=== PATIENT | male | born 1970 | race Caucasian/White ===

== ENCOUNTER → 2016-07-13 | Outpatient (CLI) | payer OTHER ==
[2016-07-13 11:12] LABS: Prothrombin Time 10.3 sec (9.0-12.0)
== END | disposition home or self-care (01) ==
LOC: LABWHC1 10:39
PROVIDERS: ATTEND Psychiatry & Neurology Neurology
DX: D65 Disseminated intravascular coagulation [defibrination syndrome] (principal)
CPT/HCPCS: 36415; 85610

== ENCOUNTER → 2016-08-06 | Outpatient (CLI) | payer OTHER ==
[2016-08-06 10:53] LABS: INR 1.2 (<1.1); Prothrombin Time 11.8 sec (9.0-12.0)
== END | disposition home or self-care (01) ==
LOC: LABWHC1 10:32
PROVIDERS: ATTEND Psychiatry & Neurology Neurology
DX: D65 Disseminated intravascular coagulation [defibrination syndrome] (principal); Z51.81 Encounter for therapeutic drug level monitoring; Z79.01 Long term (current) use of anticoagulants
CPT/HCPCS: 36415; 85610

== ENCOUNTER → 2016-09-08 | Outpatient (CLI) | payer OTHER ==
[2016-09-08 09:59] LABS: Prothrombin Time 10.4 sec (9.0-12.0)
== END | disposition home or self-care (01) ==
LOC: LABWHC1 09:21
PROVIDERS: ATTEND Psychiatry & Neurology Neurology
DX: D65 Disseminated intravascular coagulation [defibrination syndrome] (principal)
CPT/HCPCS: 36415; 85610

== ENCOUNTER → 2016-10-13 | Outpatient (CLI) | payer OTHER ==
[2016-10-13 16:23] LABS: INR 1.3 (<1.1); Prothrombin Time 13.1 sec (9.0-12.0)
== END | disposition home or self-care (01) ==
LOC: LABWHC1 15:26
PROVIDERS: ATTEND Nurse Practitioner Acute Care
DX: Z51.81 Encounter for therapeutic drug level monitoring (principal); Z79.01 Long term (current) use of anticoagulants
CPT/HCPCS: 36415; 85610

== ENCOUNTER → 2017-01-28 | Outpatient (CLI) | payer OTHER ==
--- NOTE | 2017-01-28 19:14 | PN ---
PROGRESS NOTE DATE OF SERVICE: 01/28/2017 46-year-old gentleman has been followed in [facility] for treatment of obstructive sleep apnea-hypopnea syndrome. Patient is trying to use his BiPAP equipment every night, but sometimes has problem to use equipment because he has significant back pain and he has some problem related to that. His BiPAP pressure 24/20, but he is able to tolerate this pressure well. [place] Sleepiness Scale today is increased to 14 because he did not use machine for several days. MEDICATIONS: 1. Lyrica. 2. Insulin. 3. [place]. 4. MS Contin. 5. Glucophage. 6. Simvastatin. 7. Apidra. 8. The patient is in the process of preparing to install a pain pump. PHYSICAL EXAM: Patient in no distress, BP 109/67, HR 94, RR 16, height 5 feet 6 inches, weight 242, BMI 39, temp 98.3, oxygen saturation on room air 96%. Oropharynx: Low position of soft palate. Abdomen obese. Neck Supple, no JVD. Thyroid is not palpable. LUNGS Clear to percussion and to auscultation. Good air exchange. No wheezing or rhonchi. HEART S1, S2 regular. No murmurs, gallops, or rubs. ABDOMEN Soft and nontender. Bowel sounds are present. No organomegaly appreciated. EXTREMITIES No clubbing or cyanosis. FILLING HAND Awake, alert, and oriented X3. Cranial nerves 2 to 7 intact. There is no fasciculation or atrophy. noted. No focal deficits observed. IMPRESSION: 1. Obstructive sleep apnea-hypopnea syndrome. The patient benefitting from BiPAP treatment. 2. Obesity patient lost 9 pounds since previous visit. 3. Diabetes mellitus. 4. Hyperlipidemia. 5. Back problems. 6. History of deep vein thrombosis. 7. Acid reflux. 8. Hyperlipidemia. PLAN: 1. Continue treatment with BiPAP every night for the whole night. 2. Aggressive losing weight program. 3. Sleep hygiene with regular time in bed for at least 8 hours. 4. Return to Sleep Center if he will develop any problem related to the pressure after losing weight. 5. Prescription for all necessary BiPAP supplies. Thank you very much for allowing me to participate in management of your patient. Sincerely, Jefferson Foster MD, PhD, FAASM Diplomat of [employer] Freelance Translator of [facility] [place] MMLEOLA / LAURENN: [phone] / MAU
== END ==
LOC: SLEEP 15:55
PROVIDERS: ATTEND Internal Medicine
DX: G47.33 Obstructive sleep apnea (adult) (pediatric) (principal); E66.9 Obesity, unspecified; E11.9 Type 2 diabetes mellitus without complications; E78.5 Hyperlipidemia, unspecified; K21.9 Gastro-esophageal reflux disease without esophagitis; Z86.718 Personal history of other venous thrombosis and embolism; Z79.899 Other long term (current) drug therapy; Z79.4 Long term (current) use of insulin

== ENCOUNTER 2017-01-31 20:54 | Emergency (ER) | payer OTHER ==
[2017-01-31 21:24] VITALS: BP 110/69; PULSE 94; RESP 18; TEMP 99.2
--- NOTE | 2017-01-31 21:58 | ED ---
Animal Bite HPI - General Chief Complaint: Animal Bite Stated Complaint: dog bite on arm Time Seen by Provider: 01/31/17 21:47 Source: patient, RN notes reviewed Mode of arrival: ambulatory Limitations: no limitations - History of Present Illness Initial Comments: This is a 46-year-old male who presents to the emergency department with request for wound reevaluation. This morning while in [place] patient was bit by a dog. He presented to the local urgent care where they prescribed Augmentin and inserted 3 loose sutures. The dog is reported to have been up-to- date with vaccinations. Patient was made up today with tetanus vaccination. He presents today with concern that wound is still bleeding. Patient reports that he is on Coumadin. Denies fever, chills, chest pain, shortness of breath, abdominal pain, nausea or vomiting, constipation or diarrhea, dysuria or hematuria, numbness or tingling, headache or vision changes. - Related Data Home Medications Medication Instructions Recorded Confirmed Latanoprost Ophth [Xalatan 0.005%] 1 drops BOTH EYES HS 01/23/14 01/31/17 Simvastatin [Zocor] 20 mg PO HS 01/23/14 01/31/17 Warfarin [Coumadin] 5 mg PO DAILY 01/23/14 01/31/17 Insulin Glulisine [Apidra] 35 unit SQ AC-SUPPER 06/07/15 01/31/17 Morphine Sulfate [Ms Contin] 15 mg PO HS 06/18/15 01/31/17 Naproxen 500 mg PO Q12HR 06/18/15 01/31/17 Clotrimazole [Lotrimin AF] 1 applic TOPICAL DAILY 01/28/16 01/31/17 Furosemide [Lasix] 20 mg PO DAILY PRN 01/28/16 01/31/17 Hydrocodone/Acetaminophen [Keo 1 tab PO W/LUNCH 01/28/16 01/31/17 7.5-325] Insulin Degludec [Tresiba 120 unit SQ QAM 01/28/16 01/31/17 Flextouch U-200] Insulin Glulisine [Apidra] 45 unit SQ AC-BRKFST 01/28/16 01/31/17 Insulin Glulisine [Apidra] 45 units SQ AC-LUNCH 01/28/16 01/31/17 Insulin Glulisine [Apidra] See Protocol SQ AC-TID 01/28/16 01/31/17 Lisinopril-Hctz 10-12.5 mg 1 tab PO DAILY 01/28/16 01/31/17 [Zestoretic 10-12.5] Loratadine [Claritin] 10 mg PO DAILY 01/28/16 01/31/17 Pantoprazole Sodium [Protonix] 40 mg PO DAILY 01/28/16 01/31/17 Ranitidine HCl 300 mg PO HS 01/28/16 01/31/17 Warfarin [Coumadin] 1 mg PO DAILY 01/28/16 01/31/17 metFORMIN HCL [Glucophage] 1,000 mg PO BID 01/28/16 01/31/17 tiZANidine HCL [Zanaflex] 4 mg PO BID PRN 01/28/16 01/31/17 Amoxicillin/Potassium Clav 1 tab PO Q12HR 01/31/17 01/31/17 [Augmentin 875-125 Tablet] Previous Rx's Medication Instructions Recorded Acetaminophen Tab [Tylenol] 650 mg PO Q6HR PRN #0 tab 02/02/16 Enoxaparin [Lovenox] 100 mg SQ Q12H syringe 02/02/16 Enoxaparin [Lovenox] 100 mg SQ Q12H #6 syr 02/02/16 INSULIN LISPRO (humaLOG) [humaLOG 0 unit SQ ACHS vial 02/02/16 (formulary)] Insulin Glargine [Lantus] 20 unit SQ BID vial 02/02/16 Allergies Allergy/AdvReac Type Severity Reaction Status Date / Time No Known Allergies Allergy Verified 01/28/16 13:19 Review of Systems ROS Statement: Those systems with pertinent positive or pertinent negative responses have been documented in the HPI. ROS Other: All systems not noted in ROS Statement are negative. Past Medical History Past Medical History: Blood Disorder, Diabetes Mellitus, Deep Vein Thrombosis ( DVT), GERD/Reflux, Hyperlipidemia, Hypertension, Musculoskeletal Disorder, Osteoarthritis (OA), Sleep Apnea/CPAP/BIPAP Additional Past Medical History / Comment(s): FACTOR 5 LEIDEN, HX OF (2) DVT'S LEFT LEG & (1) SUPERFICIAL CLOT LEFT LEG, USES BIPAP MACHINE , ENVIRONMENTAL ALLERGIES, FATTY LIVER, DDD & BULDGING DISC WITH BACK PAIN WEARS BRACE,USES CANE , PARTIALLY BLIND LEFT EYE., STATES SCARRING WITH NARROWING OF ESOPHAGUS & CURRENTLY HAVING DIFFICULTY SWALLOWING. KIDNEY INFECTION IN PAST, CELLULITIS LL LEG X2, MIGRAINES,PVD History of Any Multi-Drug Resistant Organisms: None Reported Past Surgical History: Tonsillectomy Additional Past Surgical History / Comment(s): eye surgery as infnat, EGD WITH DILATION X2 , uppp sx for slep apnea Past Anesthesia/Blood Transfusion Reactions: Family Hisory of Malignant Hyperthermia Additional Past Anesthesia/Blood Transfusion Reaction / Comment(s): STATES "MOTHER CRASHES- UNABLE TO METABOLIZE ANESTHESIA", HE SAID SHE STATES YES TO MALIGNANT HYPERTHERMIA. Past Psychological History: Anxiety, Depression Smoking Status: Never smoker Past Alcohol Use History: None Reported Past Drug Use History: None Reported - Past Family History Father Family Medical History: Cancer Additional Family Medical History / Comment(s): BLADDER CANCER Mother Family Medical History: CVA/TIA, Diabetes Mellitus, Myocardial Infarction ([place]) General Exam - General Exam Comments Initial Comments: General: Awake and alert, well-developed; in no apparent distress. HEENT: Head atraumatic, normocephalic. Pupils are equal, round and reactive to light. Extraocular movements intact. Neck: Supple. Normal ROM. Cardiovascular: Regular rate and rhythm. No murmurs, rubs or gallops. Chest symmetrical. Respiratory: Lungs clear to auscultation bilaterally. No wheezes, rales or rhonchi. Normal respiratory effort with no use of accessory muscles. Skin: [place], warm and dry. Left dorsal forearm has linear laceration with 3 loose sutures that are intact. There is minimal bleeding coming from this site. Abrasion involving only top epithelial layer medial to laceration has slow stream of blood. There is mild amount of swelling and erythema surrounding these sites. Neurological: Alert and oriented x3. CN II-XII grossly intact. Speech is fluent and answers are appropriate. No focal neuro deficits. Psychiatric: Normal mood and affect. No overt signs of depression or anxiety noted. Limitations: no limitations Course Vital Signs 01/31/17 21:19 Temperature 99.2 F Pulse Rate 94 Respiratory 18 Rate Blood Pressure 110/69 O2 Sat by Pulse 95 Oximetry Medical Decision Making - Medical Decision Making This is a 46-year-old male who presents for reevaluation of dog bite wound. He was worried about bleeding because he takes Coumadin. At this time, bleeding is controlled and he is in no acute distress. A pressure dressing was placed. He is to continue to take his Augmentin as prescribed. He'll be discharged home and is comfortable with this plan. All questions were answered. Disposition Clinical Impression: Encounter for evaluation of wound Disposition: HOME SELF-CARE Condition: Good Instructions: Animal Bite (ED) Additional Instructions: Please take Augmentin as prescribed for full 14 days. Please follow up with primary care provider within 1-2 days. Return to emergency department if symptoms should worsen or any concerns arise. Please look for signs of infection including increasing redness, swelling or purulent drainage. Referrals: Stacy Gomez MD [Primary Care Provider] - 1-2 days Time of Disposition: 22:02
== END 2017-01-31 22:10 | disposition home or self-care (01) ==
LOC: EC 20:54
DX: S51.812A Laceration without foreign body of left forearm, initial encounter (principal); E11.8 Type 2 diabetes mellitus with unspecified complications; I10 Essential (primary) hypertension; K21.9 Gastro-esophageal reflux disease without esophagitis; E78.5 Hyperlipidemia, unspecified; M19.90 Unspecified osteoarthritis, unspecified site; Z79.891 Long term (current) use of opiate analgesic; Z79.4 Long term (current) use of insulin; Z79.01 Long term (current) use of anticoagulants; Z79.899 Other long term (current) drug therapy; Z86.718 Personal history of other venous thrombosis and embolism; W54.0XXA Bitten by dog, initial encounter
CPT/HCPCS: 99283

== ENCOUNTER 2017-05-07 09:46 | Day surgery (SDC) | payer OTHER ==
[2017-05-05 10:10] VITALS: BMI 37.1
[~2017-05-07 09:46] MED LIST: LACTATED RINGERS 1,000 ML IV SCH
[2017-05-07] MEDS ORDERED: LIDOCAINE 1% 20 ML VIAL (10MG/ML) FOR IV START INTRADERMA ONE (11:10)
[2017-05-07 11:19] VITALS: TEMP 98
[2017-05-07] MEDS ORDERED: PROPOFOL 10 MG/ML 20 ML VIAL IV ONE (11:19)
[2017-05-07] MEDS ORDERED: PHENYLEPHRINE-0.9% NACL SYG 1 MG/10 ML SYRINGE ONE (11:19)
[2017-05-07 11:32] LABS: Glucose,Whole Blood 260 mg/dL (75-99)
[2017-05-07 12:39] VITALS: BP 103/66; PULSE 60; RESP 16
[2017-05-07 12:39] LABS: Glucose,Whole Blood 253 mg/dL (75-99)
--- NOTE | 2017-05-12 13:32 | P.OP ---
Date of Procedure: 05/07/17 Preoperative Diagnosis: Abdominal pain GERD Morbid obesity BMI 37.1 Type 2 diabetes mellitus Postoperative Diagnosis: Same Procedure(s) Performed: EGD Colonoscopy Anesthesia: MAC Surgeon: Asuncion Xie Pathology: other Condition: stable Disposition: PACU Indications for Procedure: 47 years old male with prior history of gastroesophageal reflux disease and esophgeal stricture requiring dilation presents with epigastric pain, abdominal pain. He has multiple comorbid conditions including type 2 diabetes mellitus and questionable gastroparesis Operative Findings: Small amount of retained food in the stomach. No definite hiatal hernia visualized. Description of Procedure: A timeout was performed to verify the correct patient and correct procedure. Patient was on continuous vitals and pulse ox monitoring throughout the procedure. He was placed in lateral decubitus position and an oral bite block was inserted. A well-lubricated Olympus upper endoscope was passed orally. The esophagus was intubated without difficulty. The vocal cords were visualized and protected at all times. The endoscope was passed beyond the pylorus into the first and second portion of the duodenum. No abnormality was noted in the duodenum mucosa. Two random biopsies were taken from the gastric antrum using cold biopsy forceps. The scope was then retroflexed. No hiatal hernia, no mass, active ulcer or bleeding stigmata noted within the gastric lumen. Some residual food particles noted in the gastric lumen The GE junction is measured at 36 cm from the incisors . Mild reflux esophagitis LA grade 1 . Biopsy taken from GE junction. The endoscope was gradually withdrawn. No abnormality identified in the esophagus. Patient was positioned for colonoscopy. Perianal examination did not show any external hemorrhoids. Digital rectal examination was performed. No masses or gross blood. A well-lubricated Olympus colonoscope was passed per rectally and was gradually advanced beyond the sigmoid colon, splenic flexure, transverse colon, hepatic flexure and cecum. The ileocecal valve was visualized. The colonoscope was gradually withdrawn inspecting all the mucosal surfaces. Bowel prep was good. No polyps, masses, AV malformations noted. Sigmoid diverticulosis noted without any evidence of acute diverticulitis. The scope was gradually withdrawn and retroflexed in the rectum . Grade 1 internal hemorrhoids seen. Total withdrawal time was greater than 6 minutes . Patient tolerated the procedure well and was taken to post anesthesia care unit in stable condition. Recommend repeat colonoscopy in 10 years Gastric emptying study . Final Pathologic Diagnosis A. GASTRIC ANTRUM, BIOPSY: MILD CHRONIC GASTRITIS. HELICOBACTER IMMUNOPEROXIDASE STAIN IS PERFORMED TO EVALUATE FOR HELICOBACTER ORGANISMS AND IS NEGATIVE (CONTROLS APPROPRIATE). B. ESOPHAGUS, BIOPSY: CHRONIC ESOPHAGITIS
== END 2017-05-07 13:01 | disposition home or self-care (01) ==
LOC: ORWHC2ENDO 09:46
PROVIDERS: ATTEND Surgery
DX: K21.0 Gastro-esophageal reflux disease with esophagitis (principal); K29.50 Unspecified chronic gastritis without bleeding; K57.30 Diverticulosis of large intestine without perforation or abscess without bleeding; K64.0 First degree hemorrhoids; E66.9 Obesity, unspecified; Z68.37 Body mass index [BMI] 37.0-37.9, adult; I82.502 Chronic embolism and thrombosis of unspecified deep veins of left lower extremity; E11.65 Type 2 diabetes mellitus with hyperglycemia; E11.43 Type 2 diabetes mellitus with diabetic autonomic (poly)neuropathy; K31.84 Gastroparesis; E29.1 Testicular hypofunction; E78.5 Hyperlipidemia, unspecified; I10 Essential (primary) hypertension; M46.90 Unspecified inflammatory spondylopathy, site unspecified; F32.9 Major depressive disorder, single episode, unspecified; H40.9 Unspecified glaucoma; G89.29 Other chronic pain; G47.33 Obstructive sleep apnea (adult) (pediatric); Z99.89 Dependence on other enabling machines and devices; Z79.01 Long term (current) use of anticoagulants; Z79.4 Long term (current) use of insulin; Z79.891 Long term (current) use of opiate analgesic; Z79.899 Other long term (current) drug therapy; Z79.84 Long term (current) use of oral hypoglycemic drugs
CPT/HCPCS: 88305; 88342; 45378; 43239; J2370; J2704

== ENCOUNTER → 2017-05-14 | Outpatient (CLI) | payer OTHER ==
--- NOTE | 2017-05-14 09:31 | NM ---
EXAMINATION TYPE: NM gastric emptying study DATE OF EXAM: 05/14/2017 COMPARISON: NONE HISTORY: Abdominal distention Following administration of 2.0 mCi Tc 99m Sulfur Colloid with 1 cup of oatmeal projection images of the abdomen were obtained 10 minutes post ingestion. When possible, both anterior and posterior proje ction images were obtained to allow the calculation of the geometric mean activity. Clearance: 32 % Half-life: 147 min Gastroesophagel reflux: None IMPRESSION: Gastric emptying: Findings are compatible with delayed gastric emptying Gastric emptying normal percentage values: 30 minutes: <70% of retention (> 30% emptying) suggests abnormally fast emptying. 60 minutes: <90% retention (>10% emptying) is normal; less than 30% retention (>70% emptying) suggest s abnormally rapid empying. 90 minutes: <65% retention (> 35% emptying) is normal. 120 minutes: <60% retention (> 40% emptying) is normal. 180 minutes: <30% retention (> 70% emptying) is normal. Gastric emptying T-1/2: Solid: The normal range is 60-105 minutes Liquid only: Normal range is 10-45 minutes. Liquid only-children: At 60 minutes, normal range is 44-58 % . Liquid only-infants: At 60 minutes, normal range is 32-64 %. Additional references: Gastric Emptying Scintigraphy [email or web address]://[email or web address]
== END | disposition home or self-care (01) ==
LOC: RADNMMAIN 06:53
PROVIDERS: ATTEND Surgery
DX: K31.84 Gastroparesis (principal)
CPT/HCPCS: 78264; A9541

== ENCOUNTER → 2017-08-05 | Outpatient (CLI) | payer OTHER ==
[2017-08-05 13:34] LABS: HCT 38.7 % (39.0-53.0); HGB 13.8 gm/dL (13.0-17.5); MCHC 35.7 g/dL (31.0-37.0); MCV 81.2 fL (80.0-100.0); Platelet Count 213 k/uL (150-450); RBC 4.76 m/uL (4.30-5.90); RDW 13.4 % (11.5-15.5); WBC 7.4 k/uL (3.8-10.6)
[2017-08-05 13:44] LABS: ALT 55 U/L (21-72); AST 48 U/L (17-59); Albumin 3.3 g/dL (3.5-5.0); Alkaline Phosphatase 98 U/L (38-126); Anion Gap 12 mmol/L; Blood Urea Nitrogen 18 mg/dL (9-20); Calcium 9.1 mg/dL (8.4-10.2); Carbon Dioxide 26 mmol/L (22-30); Chloride 101 mmol/L (98-107); Cholesterol 185 mg/dL (<200); Glucose 286 mg/dL (74-99); HDL Cholesterol 30 mg/dL (40-60); LDL Cholesterol,Calculated 95 mg/dL (0-99); Potassium 4.4 mmol/L (3.5-5.1); Sodium 139 mmol/L (137-145); Total Bilirubin 0.4 mg/dL (0.2-1.3); Total Protein 6.2 g/dL (6.3-8.2); Triglycerides 298 mg/dL (<150)
[2017-08-05 15:28] VITALS: BP 107/58; PULSE 87; RESP 14; TEMP 98.4; BMI 35.0
[2017-08-05 20:15] LABS: Iron Saturation 15.77 (15.00-50.00)
[2017-08-05 20:24] LABS: Vitamin D 25 Hydroxy 33.9 ng/mL (30.0-100.0)
[2017-08-05 21:21] LABS: Folate, Serum 13.8 ng/mL
[2017-08-07 13:49] LABS: Anabasine Urine <2.0 ng/mL (<2.0)
--- NOTE | 2017-08-22 23:18 | P.HPBAR ---
Bariatric H&P - History & Physicial H&P Date: 08/05/17 History & Physicial: Visit/CC: Patient initial contact: Initial weight: Initial weight in pounds: Height: 5 ft 6.25 in Initial BMI: Last weight: Current weight: 111.811 kg Current weight in pounds: Current BMI: [place] body weight (based on NIH guidelines): Excess body weight loss: The patient is a 47 year-old M who presents for Bariatric Assessment. DATE OF SERVICE: 08/05/2017 REASON FOR CONSULTATION: Initial bariatric evaluation. HISTORY OF PRESENT ILLNESS: Jose Lynne is a 47-year-old male who comes in with long-standing morbid obesity. He reports troubles with chronic pain. He is looking into the gastric bypass for insulin-dependent diabetes. He completed an upper endoscopy Dr. Xie. He was diagnosed with gastroparesis. He has a pain pump along the left lower abdomen. He has troubles with his bowel movements. He has a personal history of DVT in the left lower leg and take coumadin life long. He has not seen a script writer. He has his gallbladder. Denies any fatty food intolerance. He has tried portion control including including carbohydrate restriction without improvement of weight loss. At height of 5 feet 6.25 inches, his ideal body weight is 154 pounds. He comes in 246 pounds. His body mass index is 39.5. He is 92 pounds overweight. PAST MEDICAL HISTORY: 1. Morbid obesity. 2. Body mass index of 39.5 3. Chronic pain syndrome 4. Gastroparesis 5. Clotting disorder 6. Diabetes type 2, insulin-dependent 7. Hyperlipidemia 8. Hypertension 9. Obstructive sleep apnea 10. Osteoarthritis lower back 11. Osteoarthritis of the knees 12. Hiatal hernia 13. Peripheral vascular disease 14. Esophageal stenosis PAST SURGICAL HISTORY: 1. UVP 2. Upper endoscopy 3. Tonsillectomy 4. Pain pump insertion 5. Eye surgery as an infant HOME MEDICATIONS: 1. Zanaflex 2. Glucophage 3. Coumadin 4. Zocor 5. Protonix 6. MS Contin 7. Morphine pain pump 8. Claritin 9. Zestoretic 10. Xalantan 11. Insulin 12. Lasix 13. Lotrimin 14. Tylenol ALLERGIES: Denies. SOCIAL HISTORY: No active tobacco use. FAMILY HISTORY: No family history of ulcerative colitis disease or Crohn's disease. Family history of morbid obesity. No lupus in the family. No reports of stomach or esophageal cancer. Family history of diabetes type 2. REVIEW OF ORGAN SYSTEMS: CONSTITUTIONAL: At height of 5 feet 6.25 inches, his ideal body weight is 154 pounds. He comes in 246 pounds. His body mass index is 39.5. He is 92 pounds overweight. HEENT: Denies any active troubles with vision or hearing. No troubles with swallowing. ENDOCRINE: Has diabetes. No hypothyroidism. CARDIOVASCULAR: No reports of palpitations or heart attacks or chest pain. RESPIRATORY: Has daytime somnolence. No asthma. GI: Denies any bright red blood per rectum. No diarrhea or constipation. MUSCULOSKELETAL: Has lower back pain and joint pain. Has osteoarthritis of the knees. History of bilateral lower extremity edema. NEURO: No headaches. No seizure disorders. PSYCH: No depression or suicidal ideation. RHEUMATOLOGIC: No lupus. No rheumatoid arthritis. HEMATOLOGIC: Denies any abnormal bleeding or bruising. Has personal history of DVTs. Has clotting disorder. SKIN: No rash. No skin cancer. PHYSICAL EXAM: VITAL SIGNS: Height 5 foot 6.25 inches, weight 246 pounds. BMI 39.5 Vital Signs Temp 98.4 F 08/05/17 12:22 Pulse 87 08/05/17 12:22 Resp 14 08/05/17 12:22 BP 107/58 08/05/17 12:22 Pulse Ox GENERAL: Well-developed in no acute distress. HEENT: No scleral icterus. Extraocular movements grossly intact. Hears conversational speech. No nasal drainage. NECK: Supple without lymphadenopathy. CHEST: Nonlabored respirations with equal bilateral excursions. CARDIOVASCULAR: Regular rate and regular rhythm. Distal 2+ pulses. ABDOMEN: Obese, soft, nontender, nondistended. MUSCULOSKELETAL: No clubbing, cyanosis. Gross strength 5/5 distal lower extremities. 1+ pre-tibial pitting edema. NEURO: No focal or lateralizing signs. Cranial nerves 2 through 12 grossly within normal limits. PSYCH: Appropriate affect. Alert and oriented to person, place and time. SKIN: Good skin turgor. Well perfused. STUDIES: EGD findings without hiatal hernia. Final Pathologic Diagnosis A. GASTRIC ANTRUM, BIOPSY: MILD CHRONIC GASTRITIS. HELICOBACTER IMMUNOPEROXIDASE STAIN IS PERFORMED TO EVALUATE FOR HELICOBACTER ORGANISMS AND IS NEGATIVE (CONTROLS APPROPRIATE). B. ESOPHAGUS, BIOPSY: CHRONIC ESOPHAGITIS ASSESSMENT: 1. Morbid obesity due to excess calories 2. Body mass index of 39.5 3. Chronic pain syndrome 4. Gastroparesis 5. Clotting disorder 6. Diabetes type 2, insulin-dependent 7. Hyperlipidemia 8. Hypertension 9. Obstructive sleep apnea 10. Osteoarthritis lower back 11. Osteoarthritis of the knees 12. Hiatal hernia 13. Peripheral vascular disease 14. Esophageal stenosis PLAN: 1. Surgical options including a band, gastric bypass, sleeve gastrectomy were described in detail. Alternatives such as gastric balloon including duodenal switch were described. 2. The [place] bariatric surgical collaborative data and outcomes calculator were described with surgical options. 3. Recommend a bariatric metabolic panel to evaluate for micro- including macronutrient deficiencies. 4. For history of daytime somnolence, recommend evaluation and treatment for sleep apnea. 5. Dietary surveillance and counseling was reviewed, I have asked increased protein intake to at least 80 grams daily. 6. Will need cardiac risk assessment. 7. Recommend medical risk assessment. 8. Psych assessment per insurance guidelines. 9. Recommend 12-lead EKG with family history of hypertensive heart disease. Thank you for this consultation. Laboratory Last Values WBC 7.4 k/uL (3.8-10.6) 08/05/17 13:15 RBC 4.76 m/uL (4.30-5.90) 08/05/17 13:15 Hgb 13.8 gm/dL (13.0-17.5) 08/05/17 13:15 Hct 38.7 % (39.0-53.0) L 08/05/17 13:15 MCV 81.2 fL (80.0-100.0) 08/05/17 13:15 MCH 29.0 pg (25.0-35.0) 08/05/17 13:15 MCHC 35.7 g/dL (31.0-37.0) 08/05/17 13:15 RDW 13.4 % (11.5-15.5) 08/05/17 13:15 Plt Count 213 k/uL (150-450) 08/05/17 13:15 Sodium 139 mmol/L (137-145) 08/05/17 13:15 Potassium 4.4 mmol/L (3.5-5.1) 08/05/17 13:15 Chloride 101 mmol/L (98-107) 08/05/17 13:15 Carbon Dioxide 26 mmol/L (22-30) 08/05/17 13:15 Anion Gap 12 mmol/L 08/05/17 13:15 BUN 18 mg/dL (9-20) 08/05/17 13:15 Creatinine 0.70 mg/dL (0.66-1.25) 08/05/17 13:15 Est GFR (CKD-EPI)AfAm >90 (>60 ml/min/1.73 sqM) 08/05/17 13:15 Est GFR (CKD-EPI)NonAf >90 (>60 ml/min/1.73 sqM) 08/05/17 13:15 Glucose 286 mg/dL (74-99) H 08/05/17 13:[address] Glu mg/dL 326 08/05/17 13:15 Hemoglobin A1c 13.0 % (4.0-6.0) H 08/05/17 13:15 Calcium 9.1 mg/dL (8.4-10.2) 08/05/17 13:15 Iron 56 ug/dL (65-175) L 08/05/17 13:15 TIBC 355 ug/dL (228-460) 08/05/17 13:15 Iron Saturation 15.77 (15.00-50.00) 08/05/17 13:15 Ferritin 65.5 ng/mL (22.0-322.0) 08/05/17 13:15 Total Bilirubin 0.4 mg/dL (0.2-1.3) 08/05/17 13:15 AST 48 U/L (17-59) 08/05/17 13:15 ALT 55 U/L (21-72) 08/05/17 13:15 Alkaline Phosphatase 98 U/L (38-126) 08/05/17 13:15 Total Protein 6.2 g/dL (6.3-8.2) L 08/05/17 13:15 Albumin 3.3 g/dL (3.5-5.0) L 08/05/17 13:15 Triglycerides 298 mg/dL (<150) H 08/05/17 13:15 Cholesterol 185 mg/dL (<200) 08/05/17 13:15 LDL Cholesterol, Calc 95 mg/dL (0-99) 08/05/17 13:15 HDL Cholesterol 30 mg/dL (40-60) L 08/05/17 13:15 Vitamin B1 40 ug/L (38-122) 08/05/17 13:15 Vitamin B12 531.0 pg/mL (200.0-944.0) 08/05/17 13:15 Vitamin D 25-Hydroxy 33.9 ng/mL (30.0-100.0) 08/05/17 13:15 Folate 13.8 ng/mL 08/05/17 13:15 TSH 2.650 mIU/L (0.465-4.680) 08/05/17 13:15 Urine Cotinine <5.0 ng/mL (<5.0) 08/05/17 13:20 Urine Nicotine <2.0 ng/mL (<2.0) 08/05/17 13:20 Urine Anabasine <2.0 ng/mL (<2.0) 08/05/17 13:20 EKG EKG PERFORMED 08/05/17 13:15 Miscellaneous Test Heroin, Urine 08/05/17 12:30 Misc Test Result See comment 08/05/17 12:30 Hemoglobin A1c elevated at 13% Iron low Total protein low Albumin low Triglycerides elevated Hemoglobin A1c is over 10. Will need correction of hemoglobin A1c to less than 10. Recommend diabetic education classes. Iron supplement. Protein intake over 75 gram advised. Past Medical History Past Medical History: Blood Disorder, Diabetes Mellitus, Deep Vein Thrombosis ( DVT), GERD/Reflux, Hyperlipidemia, Hypertension, Musculoskeletal Disorder, Osteoarthritis (OA), Sleep Apnea/CPAP/BIPAP Additional Past Medical History / Comment(s): FACTOR 5 LEIDEN, HX OF (2) DVT'S LEFT LEG & (1) SUPERFICIAL CLOT currently upper abdominal pain,hiatal hernia, LEFT LEG, USES BIPAP MACHINE , ENVIRONMENTAL ALLERGIES, FATTY LIVER, DDD & BULDGING DISC WITH BACK PAIN WEARS BRACE,USES CANE, PARTIALLY BLIND LEFT EYE., STATES SCARRING WITH NARROWING OF ESOPHAGUS & CURRENTLY HAVING DIFFICULTY SWALLOWING. KIDNEY INFECTION IN PAST, CELLULITIS LL LEG X2, MIGRAINES,PVD History of Any Multi-Drug Resistant Organisms: None Reported Past Surgical History: Tonsillectomy Additional Past Surgical History / Comment(s): eye surgery as infant, EGD WITH DILATION X2 , uppp sx for slep apnea,pain pump insertion Past Anesthesia/Blood Transfusion Reactions: Family Hisory of Malignant Hyperthermia Additional Past Anesthesia/Blood Transfusion Reaction / Comm: STATES "MOTHER CRASHES"passes out"-with anesthesia,"needs to have a agricultural economics teacher dose" Past Psychological History: Anxiety, Depression Additional Psychological History / Comment(s): currently denioes any problem with depression, no thoughts of harming self, no hopelessness. Smoking Status: Never smoker Past Alcohol Use History: None Reported Past Drug Use History: None Reported - Past Family History Father Family Medical History: Cancer Additional Family Medical History / Comment(s): BLADDER CANCER Mother Family Medical History: CVA/TIA, Diabetes Mellitus, Myocardial Infarction ([place]) Results - Labs 08/05/17 13:15 08/05/17 13:15 Bariatric Checklist Checklist: Plan: Checklist: EGD: 1. Hiatal hernia: 2. H. Pylori: HgbA1c: Vitamin D: Smoking: Never smoker Primary care physician referral: Psychiatry clearance: Cardiology clearance: Sleep study: Diet journal: VTE risk score: VTE risk level: Rehab needs at discharge:
== END | disposition home or self-care (01) ==
LOC: BARWHC3 11:02
PROVIDERS: ATTEND Surgery Plastic and Reconstructive Surgery
DX: E88.81 Metabolic syndrome and other insulin resistance (principal); E66.01 Morbid (severe) obesity due to excess calories; E11.43 Type 2 diabetes mellitus with diabetic autonomic (poly)neuropathy; K31.84 Gastroparesis; G89.4 Chronic pain syndrome; D68.9 Coagulation defect, unspecified; E78.5 Hyperlipidemia, unspecified; I10 Essential (primary) hypertension; G47.33 Obstructive sleep apnea (adult) (pediatric); M47.9 Spondylosis, unspecified; M17.0 Bilateral primary osteoarthritis of knee; E44.0 Moderate protein-calorie malnutrition; E55.9 Vitamin D deficiency, unspecified; K44.9 Diaphragmatic hernia without obstruction or gangrene; K22.2 Esophageal obstruction; K21.9 Gastro-esophageal reflux disease without esophagitis; M19.90 Unspecified osteoarthritis, unspecified site; F41.9 Anxiety disorder, unspecified; F32.9 Major depressive disorder, single episode, unspecified; Z79.01 Long term (current) use of anticoagulants; Z86.718 Personal history of other venous thrombosis and embolism; Z79.4 Long term (current) use of insulin; Z68.39 Body mass index [BMI] 39.0-39.9, adult; Z99.89 Dependence on other enabling machines and devices; Z79.899 Other long term (current) drug therapy; Z79.891 Long term (current) use of opiate analgesic; Z79.84 Long term (current) use of oral hypoglycemic drugs; Z98.890 Other specified postprocedural states
CPT/HCPCS: 84425; 80061; 80053; 82607; 82728; 82746; 83540; 83550; 84443; 85027; 82306; 83036; 93005; 36415; G0480 ×2; G0463; 80323; 80356; 99201

== ENCOUNTER → 2017-09-16 | Outpatient (CLI) | payer OTHER ==
--- NOTE | 2017-09-16 17:59 | PN ---
PROGRESS NOTE DATE OF SERVICE: 09/16/2017 This is a 47-year-old gentleman who has been followed in the sleep center for treatment of obstructive sleep apnea-hypopnea syndrome. Patient has difficulties using his BiPAP unit because of his sinus problems. According to the patient, when he is able to use the machine he does not have problems, although pressure in the machine is in quite a high range at 24/20 cm of water. Recently he also started to have some movements of his arms during the night and sleeptalking. I checked the patient's BiPAP unit. BiPAP pressure is 24/20 cm of water. The patient used it for only a few days for the last 6 months. His weight has increased from 242 to 256 pounds now. MEDICATIONS: 1. Lyrica. 2. Insulin. 3. Pain pump. 4. Glucophage. 5. Simvastatin. 6. Apidra. 7. Singulair. 8. Flonase. PHYSICAL EXAMINATION: GENERAL A pleasant gentleman without distress. VITAL SIGNS: BP 104/69, HR 90, RR 16, height 5 feet 6 inches, weight 256, BMI 42.3, temperature 98.1, oxygen saturation at room air 93%. HEENT: PERRLA, EOMI. Evaluation of oropharynx showed tongue protrudes midline; low position of soft palate. NECK: Supple. No JVD. Thyroid is not palpable. LUNGS: Clear to percussion and to auscultation. Good air exchange. No wheezing or rhonchi. HEART: S1, S2 regular. No murmurs, gallops or rubs. ABDOMEN: Obese. EXTREMITIES : No clubbing or cyanosis. SHIFT MGR: Awake, alert, and oriented X3. Cranial nerves 2 to 7 intact. There is no fasciculation or atrophy. noted. No focal deficits observed. IMPRESSION: 1. Obstructive sleep apnea-hypopnea syndrome. At present patient cannot use his BiPAP equipment secondary to sinus problems. 2. Sinus problems. Patient is on treatment for sinus problems at the present time. 3. Diabetes mellitus. 4. Hyperlipidemia. 5. Back problems. 6. Status post pain pump insertion. 7. History of deep venous thrombosis. 8. Acid reflux. 9. Hyperlipidemia. 10.Movements of arms during the night; may represent parasomnia. Differential diagnosis includes of REM sleep behavioral disorder. PLAN: 1. Some of the patient's obstructive sleep apnea may stimulate developing or parasomnia at night. Consequently the first step should be treatment of the sleep apnea. Patient should start using his BiPAP equipment every night for the whole night. 2. Losing weight problem. 3. Sleep hygiene with regular time in bed for at least 8 hours. 4. Treatment of REM sleep behavioral disorder usually involves usage of clonazepam, which may increase risk for abnormalities of respiration during sleep. So again I would prefer him to use his BiPAP equipment first, and then we will consider using additional medication if necessary for the possibility of REM sleep behavioral disorder. 5. Precautions related to REM sleep behavioral disorder. Patient may use bed sitter to use sleep in bed during the night. Use pretty-size mattress. 6. No driving if feeling any sleepiness. Thank you very much for allowing me to participate in the management of your patient. Sincerely, Jefferson Foster MD, PhD, FAASM Diplomat of [employer] [employer] [employer]person [employer] [facility] [place] [email or web address] / ERIC: [id number] /
== END | disposition home or self-care (01) ==
LOC: SLEEP 15:21
PROVIDERS: ATTEND Internal Medicine
DX: G47.33 Obstructive sleep apnea (adult) (pediatric) (principal); E11.9 Type 2 diabetes mellitus without complications; E78.5 Hyperlipidemia, unspecified; K21.9 Gastro-esophageal reflux disease without esophagitis; Z86.718 Personal history of other venous thrombosis and embolism; Z79.4 Long term (current) use of insulin; Z79.899 Other long term (current) drug therapy

== ENCOUNTER 2017-09-30 15:36 | Emergency (ER) | payer OTHER ==
[2017-09-30] MEDS ORDERED: SODIUM CHLORIDE 0.9% 1,000 ML IV STA (15:55)
--- NOTE | 2017-09-30 15:55 | ED ---
General Adult HPI - General Stated complaint: Choking Time Seen by Provider: 09/30/17 15:37 - History of Present Illness Initial comments: Rock Mancera is a 47-year-old male with a history significant for previous esophageal food bolus requiring endoscopy and esophageal dilatation. The patient presents the ER today for evaluation of sensation that food is stuck in his esophagus. Patient reports that he was eating chicken and doughnuts , he states that he took a bite and immediately after swallowing felt the sensation that the food was stuck in his chest. He states that this sensation lasted for a few minutes and he called the ambulance. Patient states that while he was awaiting EMS arrival he experienced severe pain with trying to clear his oral secretions. He states it took EMS about 5 minutes to arrive, and when they arrived he began to feel better. He states that he is now able to clear his oral secretions but is experiencing some residual sharp and pressure like pain in his epigastrium and retrosternal area. Patient denies any previous cardiac history, he denies any recent exertional chest pain or shortness of breath. He reports that the symptoms came on suddenly after taking a large bite of food and have improved after feeling passage food. - Related Data Home Medications Medication Instructions Recorded Confirmed Latanoprost Ophth [Xalatan 0.005%] 1 drops BOTH EYES HS 01/23/14 09/30/17 Simvastatin [Zocor] 20 mg PO HS 01/23/14 09/30/17 Clotrimazole [Lotrimin AF] 1 applic TOPICAL DAILY 01/28/16 09/30/17 Insulin Glulisine [Apidra] 30 unit SQ AC-TID 01/28/16 09/30/17 Insulin Glulisine [Apidra] See Protocol SQ DAILY 01/28/16 09/30/17 Lisinopril-Hctz 10-12.5 mg 1 tab PO DAILY 01/28/16 09/30/17 [Zestoretic 10-12.5] Loratadine [Claritin] 10 mg PO DAILY 01/28/16 09/30/17 Pantoprazole Sodium [Protonix] 40 mg PO HS 01/28/16 09/30/17 metFORMIN HCL [Glucophage] 1,000 mg PO BID 01/28/16 09/30/17 tiZANidine HCL [Zanaflex] 4 mg PO BID PRN 01/28/16 09/30/17 Morphine Pain Pump 1 dose SQ CONTINUOUS 05/05/17 09/30/17 Ammonium Lactate Cream [Lac-Hydrin 1 applic TOPICAL DAILY 09/30/17 09/30/17 12% Cream] Ascorbic Acid [Vitamin C] 500 mg PO HS 09/30/17 09/30/17 Cholecalciferol [Vitamin D3] 1,000 unit PO DAILY 09/30/17 09/30/17 DULoxetine HCL [Cymbalta] 60 mg PO DAILY 09/30/17 09/30/17 Insulin Glargine,Hum.rec.anlog 50 unit SQ BID 09/30/17 09/30/17 [Basaglar Kwikpen U-100] Montelukast Sodium [Singulair] 10 mg PO DAILY PRN 09/30/17 09/30/17 Pioglitazone [Actos] 30 mg PO DAILY 09/30/17 09/30/17 Potassium 99 mg PO HS 09/30/17 09/30/17 Pregabalin [Lyrica] 200 mg PO BID 09/30/17 09/30/17 Ranitidine HCl 300 mg PO HS 09/30/17 09/30/17 SILVER sulfADIAZINE Cream 1 applic TOPICAL DAILY PRN 09/30/17 09/30/17 [Silvadene 1% Cream] Tamsulosin HCl [Flomax] 0.4 mg PO DAILY 09/30/17 09/30/17 Warfarin Sodium [Coumadin] 6 mg PO HS 09/30/17 09/30/17 Allergies Allergy/AdvReac Type Severity Reaction Status Date / Time No Known Allergies Allergy Verified 09/30/17 16:11 Review of Systems ROS Statement: Those systems with pertinent positive or pertinent negative responses have been documented in the HPI. ROS Other: All systems not noted in ROS Statement are negative. Constitutional: Denies: fever ENT: Denies: throat pain Cardiovascular: Reports: chest pain. Denies: palpitations, dyspnea on exertion , orthopnea, edema, syncope Endocrine: Denies: fatigue Gastrointestinal: Reports: other (Malin sensation in esophagus). Denies: abdominal pain, nausea, vomiting Musculoskeletal: Denies: back pain Skin: Denies: rash, lesions Neurological: Denies: weakness Hematological/Lymphatic: Denies: easy bleeding, easy bruising Past Medical History Past Medical History: Blood Disorder, Diabetes Mellitus, Deep Vein Thrombosis ( DVT), GERD/Reflux, Hyperlipidemia, Hypertension, Musculoskeletal Disorder, Osteoarthritis (OA), Sleep Apnea/CPAP/BIPAP Additional Past Medical History / Comment(s): FACTOR 5 LEIDEN, HX OF (2) DVT'S LEFT LEG & (1) SUPERFICIAL CLOT currently upper abdominal pain,hiatal hernia, LEFT LEG, USES BIPAP MACHINE , ENVIRONMENTAL ALLERGIES, FATTY LIVER, DDD & BULDGING DISC WITH BACK PAIN WEARS BRACE,USES CANE, PARTIALLY BLIND LEFT EYE., STATES SCARRING WITH NARROWING OF ESOPHAGUS & Hx of DIFFICULTY SWALLOWING. KIDNEY INFECTION IN PAST, CELLULITIS LL LEG X2, MIGRAINES,PVD, gastroparesis History of Any Multi-Drug Resistant Organisms: None Reported Past Surgical History: Tonsillectomy Additional Past Surgical History / Comment(s): eye surgery as , EGD WITH DILATION X2 , uppp sx for slep apnea,pain pump insertion Past Anesthesia/Blood Transfusion Reactions: Family Hisory of Malignant Hyperthermia Additional Past Anesthesia/Blood Transfusion Reaction / Comment(s): STATES "MOTHER CRASHES"passes out"-with anesthesia,"needs to have a report manager dose" Past Psychological History: Anxiety, Depression Additional Psychological History / Comment(s): currently denioes any problem with depression, no thoughts of harming self, no hopelessness. Smoking Status: Never smoker Past Alcohol Use History: None Reported Past Drug Use History: None Reported - Past Family History Father Family Medical History: Cancer Additional Family Medical History / Comment(s): BLADDER CANCER Mother Family Medical History: CVA/TIA, Diabetes Mellitus, Myocardial Infarction ([place]) General Exam Limitations: no limitations, language barrier General appearance: alert, in no apparent distress Head exam: Present: atraumatic, normocephalic Eye exam: Present: normal appearance, PERRL ENT exam: Present: normal exam, normal oropharynx, mucous membranes moist Neck exam: Present: normal inspection, full ROM. Absent: tenderness Respiratory exam: Present: normal lung sounds bilaterally, other (No subcutaneous emphysema). Absent: respiratory distress, wheezes, rales, chest wall tenderness, accessory muscle use Cardiovascular Exam: Present: regular rate, normal rhythm, normal heart sounds GI/Abdominal exam: Present: soft. Absent: distended, tenderness, guarding, rebound Extremities exam: Present: full ROM Neurological exam: Present: alert, oriented X3, normal gait Psychiatric exam: Present: normal affect, normal mood Skin exam: Present: warm, dry, intact Course Vital Signs 09/30/17 09/30/17 09/30/17 15:37 16:57 19:23 Temperature 100.1 F H 97.9 F Pulse Rate 97 85 65 Respiratory 19 18 18 Rate Blood Pressure 96/60 93/55 91/54 O2 Sat by Pulse 97 96 97 Oximetry Medical Decision Making - Medical Decision Making Patient was seen and evaluated, history was obtained from the patient and review of medical records Patient with a history of esophageal stricture and food bolus requiring endoscopy in the past, presented after feeling that he had chicken or doughnut stuck in his esophagus. Reports significant improvement in his symptoms since onset approximately 15-20 minutes ago. Is able to clear his oral secretions. Has not tried any further by mouth intake. She describes his discomfort as a sudden onset sharp pressure-like sensation in his esophagus after eating. However he states he still has some residual retrosternal discomfort. EKG, chest x-ray and labs will be ordered. She was given isac nhung and was able to take a few sips without any significant discomfort or regurgitation of the isac nhung. EKG normal sinus rhythm with no evidence of acute ischemia or infarction X-ray with no acute findings Labs within normal limits The patient was reevaluated, he has drank approximately a quarter of his can of isac nhung, he states that he doesn't want to drink anymore because it does not taste good but he will drink a Pepsi. He was given a can of Pepsi which he was able to tolerate well. I discussed with the patient that he needs to follow a soft diet and ensure that he chews all of his food very well and eats very slowly as I feel the eating both chicken and doughnut very quickly contributed to his food bolus sensation. I advised the patient that he needs to call his [employer] clerk tomorrow to discuss with them his symptoms and need for close follow-up. I advised the patient that if he has any recurrence of symptoms or development of new or concerning symptoms he should return to the emergency department immediately. All questions pertaining to care were answered to the best of my ability the patient was discharged home in stable condition. - Lab Data Result diagrams: 09/30/17 16:09 09/30/17 16:09 Lab Results 09/30/17 09/30/17 09/30/17 Range/Units 16:09 16:09 16:09 WBC 7.3 (3.8-10.6) k/uL RBC 4.77 (4.30-5.90) m/uL Hgb 14.1 (13.0-17.5) gm/dL Hct 40.1 (39.0-53.0) % MCV 84.1 (80.0-100.0) fL MCH 29.5 (25.0-35.0) pg MCHC 35.0 (31.0-37.0) g/dL RDW 13.9 (11.5-15.5) % Plt Count 228 (150-450) k/uL Neutrophils % 69 % Lymphocytes % 20 % Monocytes % 6 % Eosinophils % 3 % Basophils % 1 % Neutrophils # 5.0 (1.3-7.7) k/uL Lymphocytes # 1.4 (1.0-4.8) k/uL Monocytes # 0.4 (0-1.0) k/uL Eosinophils # 0.2 (0-0.7) k/uL Basophils # 0.0 (0-0.2) k/uL PT (9.0-12.0) sec INR (<1.2) APTT (22.0-30.0) sec Sodium 139 (137-145) mmol/L Potassium 4.5 (3.5-5.1) mmol/L Chloride 99 (98-107) mmol/L Carbon Dioxide 27 (22-30) mmol/L Anion Gap 13 mmol/L BUN 17 (9-20) mg/dL Creatinine 0.82 (0.66-1.25) mg/dL Est GFR (CKD-EPI)AfAm >90 (>60 ml/min/1.73 sqM) Est GFR (CKD-EPI)NonAf >90 (>60 ml/min/1.73 sqM) Glucose 169 H (74-99) mg/dL Calcium 9.4 (8.4-10.2) mg/dL Magnesium 1.5 L (1.6-2.3) mg/dL Total Bilirubin 0.6 (0.2-1.3) mg/dL AST 49 (17-59) U/L ALT 52 (21-72) U/L Alkaline Phosphatase 86 (38-126) U/L Total Creatine Kinase 228 H (55-170) U/L CK-MB (CK-2) 3.7 H* (0.0-2.4) ng/mL CK-MB (CK-2) Rel Index 1.6 Troponin I <0.012 (0.000-0.034) ng/mL Total Protein 6.8 (6.3-8.2) g/dL Albumin 4.0 (3.5-5.0) g/dL 09/30/17 Range/Units 16:09 WBC (3.8-10.6) k/uL RBC (4.30-5.90) m/uL Hgb (13.0-17.5) gm/dL Hct (39.0-53.0) % MCV (80.0-100.0) fL MCH (25.0-35.0) pg MCHC (31.0-37.0) g/dL RDW (11.5-15.5) % Plt Count (150-450) k/uL Neutrophils % % Lymphocytes % % Monocytes % % Eosinophils % % Basophils % % Neutrophils # (1.3-7.7) k/uL Lymphocytes # (1.0-4.8) k/uL Monocytes # (0-1.0) k/uL Eosinophils # (0-0.7) k/uL Basophils # (0-0.2) k/uL PT 14.0 H (9.0-12.0) sec INR 1.5 H (<1.2) APTT 28.5 (22.0-30.0) sec Sodium (137-145) mmol/L Potassium (3.5-5.1) mmol/L Chloride (98-107) mmol/L Carbon Dioxide (22-30) mmol/L Anion Gap mmol/L BUN (9-20) mg/dL Creatinine (0.66-1.25) mg/dL Est GFR (CKD-EPI)AfAm (>60 ml/min/1.73 sqM) Est GFR (CKD-EPI)NonAf (>60 ml/min/1.73 sqM) Glucose (74-99) mg/dL Calcium (8.4-10.2) mg/dL Magnesium (1.6-2.3) mg/dL Total Bilirubin (0.2-1.3) mg/dL AST (17-59) U/L ALT (21-72) U/L Alkaline Phosphatase (38-126) U/L Total Creatine Kinase (55-170) U/L CK-MB (CK-2) (0.0-2.4) ng/mL CK-MB (CK-2) Rel Index Troponin I (0.000-0.034) ng/mL Total Protein (6.3-8.2) g/dL Albumin (3.5-5.0) g/dL Disposition Clinical Impression: Globus sensation Disposition: HOME SELF-CARE Condition: Good Instructions: Soft Diet (ED) Is patient prescribed a controlled substance at d/c from ED?: No Referrals: Stacy Gomez MD [Primary Care Provider] - 1-2 days Teresa Ramey MD [STAFF PHYSICIAN] - 1-2 days Time of Disposition: 17:46
[2017-09-30 16:35] LABS: Basophils % (A) 1 %; Eosinophils # (A) 0.2 k/uL (0-0.7); Eosinophils % (A) 3 %; HCT 40.1 % (39.0-53.0); HGB 14.1 gm/dL (13.0-17.5); Lymphocytes # (A) 1.4 k/uL (1.0-4.8); Lymphocytes % (A) 20 %; MCH 29.5 pg (25.0-35.0); MCV 84.1 fL (80.0-100.0); Monocytes # (A) 0.4 k/uL (0-1.0); Monocytes % (A) 6 %; Neutrophils % (A) 69 %; Platelet Count 228 k/uL (150-450); RBC 4.77 m/uL (4.30-5.90); RDW 13.9 % (11.5-15.5); WBC 7.3 k/uL (3.8-10.6)
[2017-09-30 16:44] LABS: ALT 52 U/L (21-72); AST 49 U/L (17-59); Alkaline Phosphatase 86 U/L (38-126); Anion Gap 13 mmol/L; Blood Urea Nitrogen 17 mg/dL (9-20); Calcium 9.4 mg/dL (8.4-10.2); Carbon Dioxide 27 mmol/L (22-30); Chloride 99 mmol/L (98-107); Glucose 169 mg/dL (74-99); Magnesium 1.5 mg/dL (1.6-2.3); Potassium 4.5 mmol/L (3.5-5.1); Sodium 139 mmol/L (137-145); Total Bilirubin 0.6 mg/dL (0.2-1.3); Total Protein 6.8 g/dL (6.3-8.2)
[2017-09-30 16:49] LABS: INR 1.5 (<1.2); Partial Thromboplastin Time 28.5 sec (22.0-30.0)
[2017-09-30 16:59] VITALS: RESP 18
[2017-09-30 16:59] LABS: Creatine Kinase 228 U/L (55-170)
[2017-09-30 17:11] LABS: Troponin I <0.012 ng/mL (0.000-0.034)
[2017-09-30 17:14] LABS: Creatine Kinase MB 3.7 ng/mL (0.0-2.4)
--- NOTE | 2017-09-30 17:25 | XR ---
EXAMINATION TYPE: XR chest 2V DATE OF EXAM: 09/30/2017 COMPARISON: NONE HISTORY: Choking today TECHNIQUE: Frontal and lateral views of the chest are obtained. FINDINGS: Heart and mediastinum are normal. Lungs are clear. Diaphragm is normal. Bony thorax appear s normal. IMPRESSION: Normal chest. No change.
[2017-09-30 19:24] VITALS: BP 91/54; PULSE 65; TEMP 97.9
== END 2017-09-30 19:26 | disposition home or self-care (01) ==
LOC: EC 15:36
DX: F45.8 Other somatoform disorders (principal); E11.9 Type 2 diabetes mellitus without complications; K21.9 Gastro-esophageal reflux disease without esophagitis; E78.5 Hyperlipidemia, unspecified; I10 Essential (primary) hypertension; M19.90 Unspecified osteoarthritis, unspecified site; G47.30 Sleep apnea, unspecified; D68.51 Activated protein C resistance; F41.9 Anxiety disorder, unspecified; F32.9 Major depressive disorder, single episode, unspecified; Z86.718 Personal history of other venous thrombosis and embolism; H54.7 Unspecified visual loss; I73.9 Peripheral vascular disease, unspecified; Z87.19 Personal history of other diseases of the digestive system; Z99.89 Dependence on other enabling machines and devices; Z98.890 Other specified postprocedural states; Z79.01 Long term (current) use of anticoagulants; Z79.4 Long term (current) use of insulin; Z79.891 Long term (current) use of opiate analgesic; Z79.899 Other long term (current) drug therapy
CPT/HCPCS: 36415; 71046; 80053; 82550; 82553; 83735; 84484; 85025; 85610; 85730; 93005; 96360; 96361; 99284

== ENCOUNTER → 2017-12-30 | Outpatient (CLI) | payer OTHER ==
--- NOTE | 2017-12-30 11:06 | SFUN ---
SLEEP CENTER FOLLOW UP NOTE DATE OF SERVICE: 12/30/2017 A 47-year-old gentleman who has been followed in the Sleep Center for treatment of obstructive sleep apnea-hypopnea syndrome. Patient continued to use his CPAP equipment with the full-face mask, [place] View which cover nose below and mouth. Also, he is using a chin strap. The humidity last time in his machine was adjusted to maximal at 6, but patient still feels dryness in his mouth. I checked his BiPAP unit. Pressure in high range of 24/20 but he tolerated the pressure well. No problems with the pressure. Patient mentioned that some of the nights after using his machine, there is no water in the humidifier. [place] Sleepiness Scale today is 15. By checking CPAP unit, patient not always using CPAP unit for more than 4 hours. Average usage for the last 6 months around 3.8 hours. MEDICATIONS: Lyrica, insulin, [place], [place] Contin, Glucophage, simvastatin, Apidra, pain pump. . PHYSICAL EXAM: Patient in no distress. BP 102/63, HR 73, RR 16, height 66, weight 262.6, BMI 42.2, temperature 98.2, oxygen saturation at room air 93%. OROPHARYNX: Low position of soft palate. ABDOMEN: Obese. Neck Supple, no JVD. Thyroid is not palpable. LUNGS Clear to percussion and to auscultation. Good air exchange. No wheezing or rhonchi. HEART S1, S2 regular. No murmurs, gallops, or rubs. EXTREMITIES No clubbing or cyanosis. [employer]ER Awake, alert, and oriented X3. Cranial nerves 2 to 7 intact. There is no fasciculation or atrophy. noted. No focal deficits observed. IMPRESSION: 1. Obstructive sleep apnea-hypopnea syndrome, patient benefitting from BiPAP treatment. 2. History of pneumonia several months ago. 3. Diabetes mellitus. 4. Hyperlipidemia. 5. Back problems, pain pump. 6. History of deep venous thrombosis. 7. Acid reflux. 8. Hyperlipidemia: 9. History off some movements during the night. Differential diagnosis include REM sleep behavioral disorder recently. Not any problems with movements. PLAN: 1. Prescription to check heated humidifier to be sure that it is working properly, if necessary to replace humidifier or replace machine. 2. Losing weight. 3. Sleep hygiene with regular time in bed for at least 7.5 hours. 4. To use BiPAP equipment every night for the whole night. Thank you very much for allowing me to participate in the management of your patient. Sincerely, Jefferson Foster MD, PhD, FAASM Diplomat of [place] [employer] [facility] [place] MMODL / ERCI: [id number] /
== END | disposition home or self-care (01) ==
LOC: SLEEP 10:08
PROVIDERS: ATTEND Internal Medicine
DX: G47.33 Obstructive sleep apnea (adult) (pediatric) (principal); E11.9 Type 2 diabetes mellitus without complications; E78.5 Hyperlipidemia, unspecified; K21.9 Gastro-esophageal reflux disease without esophagitis; Z86.718 Personal history of other venous thrombosis and embolism; Z79.4 Long term (current) use of insulin; Z79.899 Other long term (current) drug therapy

== ENCOUNTER → 2018-01-17 | Outpatient (CLI) | payer OTHER ==
--- NOTE | 2018-01-17 15:39 | CT ---
EXAMINATION TYPE: CT lumbar spine wo con DATE OF EXAM: 01/17/2018 3:26 PM COMPARISON: MRI 12/01/2014 HISTORY: Low back pain. CT DLP: 1913 mGycm Automated exposure control for dose reduction was used. Unenhanced CT of the lumbar spine was performed. Bone and soft tissue window settings are submitted as well as coronal and sagittal reconstructions. Alignment anatomic. Posterior hypertrophic spurring at levels T12-L5. No compression deformities. Assessment spinal canal is limited due to CT noncontrast technique. There is a catheter within the sp inal canal. At T12-L1 there is left paracentral spurring. Neural foramina appear to be patent. L1-L2: Degenerative disc disease. There is broad-based central disc bulging. Right paracentral focal component seen by previous MRI not as well seen by CT scan which likely is technical. Follow-up MRI r ecommended. No Canal stenosis. Neural foramina patent. L2-L3: Degenerative disc disease there is posterior spondylosis with disc osteophyte complex resultin g in mild to moderate compression of the thecal sac. Findings are suggestive of spinal stenosis with bilateral foraminal encroachment greater on the left. L3-L4: Posterior disc bulging with facet arthropathy and hypertrophic changes of the ligamentum flavu m. Diminutive spinal canal contributes to spinal stenosis and bilateral foraminal encroachment. L4-L5: Posterior disc osteophyte complex with disc protrusion capped by spur. Facet arthropathy and l igamentum flavum hypertrophy result in severe spinal stenosis and bilateral foraminal encroachment. L5-S1: Facet arthropathy. There is no central stenosis. Neural foramina remain patent. No central jean pierre nosis although there is mild central disc bulge or small protrusion abutting the thecal sac. IMPRESSION: 1. Multilevel degenerative disc disease and posterior spondylosis. 2. Posterior spurring with disc protrusion capped by spur L2-3 and L3-L4 result in spinal stenosis an d bilateral foraminal encroachment as discussed above. 3. Severe spinal stenosis L4-L5 due to disc protrusion capped by spur with disc osteophyte complex an d hypertrophic changes 4. Recommend MRI given limitation of noncontrast CT for further evaluation to assess the spinal canal . 5. Small focal central disc bulge or protrusion L5-S1..
== END | disposition home or self-care (01) ==
LOC: RADCTMAIN 15:00
PROVIDERS: ATTEND Psychiatry & Neurology Pain Medicine
DX: M48.061 Spinal stenosis, lumbar region without neurogenic claudication (principal); M51.26 Other intervertebral disc displacement, lumbar region; M51.36 Other intervertebral disc degeneration, lumbar region; M47.816 Spondylosis without myelopathy or radiculopathy, lumbar region
CPT/HCPCS: 72131

== ENCOUNTER → 2018-02-23 | Outpatient (CLI) | payer OTHER | END | disposition home or self-care (01) | LOC: LABWHC1 09:33 | PROVIDERS: ATTEND Psychiatry & Neurology Pain Medicine | DX: Z01.818 Encounter for other preprocedural examination (principal) | CPT/HCPCS: 36415; 93005 ==

== ENCOUNTER 2018-02-26 16:59 | Emergency (ER) | payer OTHER ==
[2018-02-26 17:03] VITALS: TEMP 98.6
--- NOTE | 2018-02-26 18:04 | XR ---
Left knee HISTORY: Left knee pain 3 views of the left knee Bone mineralization, joint spaces and alignment are maintained. Minimal marginal spurring medial comp artment, patellofemoral joint. There may be suprapatellar increased density compatible joint effusion . IMPRESSION: Osteoarthritis.
[2018-02-26 18:35] LABS: Basophils # (A) 0.1 k/uL (0-0.2); Basophils % (A) 1 %; Eosinophils # (A) 0.4 k/uL (0-0.7); Eosinophils % (A) 4 %; HCT 38.8 % (39.0-53.0); HGB 12.8 gm/dL (13.0-17.5); Lymphocytes # (A) 1.8 k/uL (1.0-4.8); Lymphocytes % (A) 21 %; MCH 28.8 pg (25.0-35.0); MCV 87.5 fL (80.0-100.0); Mean Platelet Volume 7.8; Monocytes # (A) 0.7 k/uL (0-1.0); Monocytes % (A) 8 %; Neutrophils # (A) 5.7 k/uL (1.3-7.7); Neutrophils % (A) 65 %; Platelet Count 235 k/uL (150-450); RBC 4.44 m/uL (4.30-5.90); RDW 13.4 % (11.5-15.5); WBC 8.7 k/uL (3.8-10.6)
[2018-02-26 18:45] LABS: ALT 35 U/L (21-72); AST 32 U/L (17-59); Albumin 3.6 g/dL (3.5-5.0); Alkaline Phosphatase 84 U/L (38-126); Anion Gap 7 mmol/L; Blood Urea Nitrogen 19 mg/dL (9-20); C Reactive Protein 37.8 mg/L (<10.0); Calcium 9.1 mg/dL (8.4-10.2); Carbon Dioxide 30 mmol/L (22-30); Chloride 100 mmol/L (98-107); Glucose 184 mg/dL (74-99); Potassium 4.4 mmol/L (3.5-5.1); Sodium 137 mmol/L (137-145); Total Bilirubin 0.5 mg/dL (0.2-1.3); Total Protein 6.8 g/dL (6.3-8.2)
--- NOTE | 2018-02-26 19:10 | US ---
EXAMINATION TYPE: US venous doppler duplex LE LT DATE OF EXAM: 02/26/2018 6:51 PM COMPARISON: Multiple US's CLINICAL HISTORY: Pain. Swelling left leg. Patient has history of chronic DVT left leg, is on coumadi n. Patient has factor 5. SIDE PERFORMED: Left TECHNIQUE: The lower extremity deep venous system is examined utilizing real time linear array sonog errol with graded compression, doppler sonography and color-flow sonography. VESSELS IMAGED: External Iliac Vein (EIV) Common Femoral Vein Deep Femoral Vein Greater Saphenous Vein * Femoral Vein Popliteal Vein Small Saphenous Vein * Proximal Calf Veins (* superficial vessels) Low-level internal echoes are present in an eccentric location suggesting partially occlusive deep ve nous thrombosis within the popliteal vein Subcutaneous edema channels noted within the soft tissues IMPRESSION: Nonocclusive deep venous thrombosis of questionable chronicity
--- NOTE | 2018-02-26 19:22 | ED ---
General Adult HPI - General Chief complaint: Extremity Injury, Lower Stated complaint: Knee pain Time Seen by Provider: 02/26/18 17:13 Source: patient, RN notes reviewed Mode of arrival: ambulatory Limitations: no limitations - History of Present Illness Initial comments: 48-year-old male with past medical history of factor V Leiden and DVTs presents to the emergency department for a chief complaint of left knee pain. Patient states this pain has been exacerbated for the past day. Patient states he has had chronic left leg pain due to back pain for years and worsening knee pain for the past month. He states he has a pain pump for his back pain. He states he has a history of blood clots in the left leg with a chronic clot. Patient denies fevers or chills at home. Patient states he is able to him that on the left knee but it is painful and he is using his cane. He denies any history of gout. Patient has no other complaints at this time including shortness of breath , chest pain, abdominal pain, nausea or vomiting, headache, or visual changes. - Related Data Home Medications Medication Instructions Recorded Confirmed Latanoprost Ophth [Xalatan 0.005%] 1 drops BOTH EYES HS 01/23/14 09/30/17 Simvastatin [Zocor] 20 mg PO HS 01/23/14 09/30/17 Clotrimazole [Lotrimin AF] 1 applic TOPICAL DAILY 01/28/16 09/30/17 Insulin Glulisine [Apidra] 30 unit SQ AC-TID 01/28/16 09/30/17 Insulin Glulisine [Apidra] See Protocol SQ DAILY 01/28/16 09/30/17 Lisinopril-Hctz 10-12.5 mg 1 tab PO DAILY 01/28/16 09/30/17 [Zestoretic 10-12.5] Loratadine [Claritin] 10 mg PO DAILY 01/28/16 09/30/17 Pantoprazole Sodium [Protonix] 40 mg PO HS 01/28/16 09/30/17 metFORMIN HCL [Glucophage] 1,000 mg PO BID 01/28/16 09/30/17 tiZANidine HCL [Zanaflex] 4 mg PO BID PRN 01/28/16 09/30/17 Morphine Pain Pump 1 dose SQ CONTINUOUS 05/05/17 09/30/17 Ammonium Lactate Cream [Lac-Hydrin 1 applic TOPICAL DAILY 09/30/17 09/30/17 12% Cream] Ascorbic Acid [Vitamin C] 500 mg PO HS 09/30/17 09/30/17 Cholecalciferol [Vitamin D3] 1,000 unit PO DAILY 09/30/17 09/30/17 DULoxetine HCL [Cymbalta] 60 mg PO DAILY 09/30/17 09/30/17 Insulin Glargine,Hum.rec.anlog 50 unit SQ BID 09/30/17 09/30/17 [Basaglar Kwikpen U-100] Montelukast Sodium [Singulair] 10 mg PO DAILY PRN 09/30/17 09/30/17 Pioglitazone [Actos] 30 mg PO DAILY 09/30/17 09/30/17 Potassium 99 mg PO HS 09/30/17 09/30/17 Pregabalin [Lyrica] 200 mg PO BID 09/30/17 09/30/17 Ranitidine HCl 300 mg PO HS 09/30/17 09/30/17 SILVER sulfADIAZINE Cream 1 applic TOPICAL DAILY PRN 09/30/17 09/30/17 [Silvadene 1% Cream] Tamsulosin HCl [Flomax] 0.4 mg PO DAILY 09/30/17 09/30/17 Warfarin Sodium [Coumadin] 6 mg PO HS 09/30/17 09/30/17 Allergies Allergy/AdvReac Type Severity Reaction Status Date / Time No Known Allergies Allergy Verified 02/26/18 17:03 Review of Systems ROS Statement: Those systems with pertinent positive or pertinent negative responses have been documented in the HPI. ROS Other: All systems not noted in ROS Statement are negative. Past Medical History Past Medical History: Blood Disorder, Diabetes Mellitus, Deep Vein Thrombosis ( DVT), GERD/Reflux, Hyperlipidemia, Hypertension, Musculoskeletal Disorder, Osteoarthritis (OA), Sleep Apnea/CPAP/BIPAP Additional Past Medical History / Comment(s): FACTOR 5 LEIDEN, HX OF (2) DVT'S LEFT LEG & (1) SUPERFICIAL CLOT currently upper abdominal pain,hiatal hernia, LEFT LEG, USES BIPAP MACHINE , ENVIRONMENTAL ALLERGIES, FATTY LIVER, DDD & BULDGING DISC WITH BACK PAIN WEARS BRACE,USES CANE, PARTIALLY BLIND LEFT EYE., STATES SCARRING WITH NARROWING OF ESOPHAGUS & Hx of DIFFICULTY SWALLOWING. KIDNEY INFECTION IN PAST, CELLULITIS LL LEG X2, MIGRAINES,PVD, gastroparesis History of Any Multi-Drug Resistant Organisms: None Reported Past Surgical History: Tonsillectomy Additional Past Surgical History / Comment(s): eye surgery as infant, EGD WITH DILATION X2 , uppp sx for slep apnea,pain pump insertion Past Anesthesia/Blood Transfusion Reactions: Family Hisory of Malignant Hyperthermia Additional Past Anesthesia/Blood Transfusion Reaction / Comment(s): STATES "MOTHER CRASHES"passes out"-with anesthesia,"needs to have a black ash burner operator dose" Past Psychological History: Anxiety, Depression Smoking Status: Never smoker Past Alcohol Use History: None Reported Past Drug Use History: None Reported - Past Family History Father Family Medical History: Cancer Additional Family Medical History / Comment(s): BLADDER CANCER Mother Family Medical History: CVA/TIA, Diabetes Mellitus, Myocardial Infarction ([place]) General Exam Limitations: no limitations General appearance: alert, in no apparent distress Head exam: Present: atraumatic, normocephalic, normal inspection Eye exam: Present: normal appearance, PERRL, EOMI. Absent: scleral icterus, conjunctival injection, periorbital swelling ENT exam: Present: normal exam, mucous membranes moist Neck exam: Present: normal inspection, full ROM. Absent: tenderness, meningismus, lymphadenopathy Respiratory exam: Present: normal lung sounds bilaterally. Absent: respiratory distress, wheezes, rales, rhonchi, stridor Cardiovascular Exam: Present: regular rate, normal rhythm, normal heart sounds. Absent: systolic murmur, diastolic murmur, rubs, gallop, clicks Extremities exam: Present: tenderness (Mild tenderness noted to the anterior left knee. No tenderness to the posterior left knee. No tenderness to the calf ), normal capillary refill (Capillary refill less than 2 seconds and DP pulse 2 + in the left lower extremity.), joint swelling (Patient does have moderate edema noted of the left knee and calf without erythema or increased warmth.), other (Sensation intact in the left lower extremity). Absent: full ROM ( Patient has not 110 of flexion in the left knee, full extension), calf tenderness (No tenderness to the calf, negative Homans sign) Course Vital Signs 02/26/18 02/26/18 17:00 21:22 Temperature 98.6 F Pulse Rate 78 82 Respiratory 18 16 Rate Blood Pressure 123/78 152/74 O2 Sat by Pulse 97 95 Oximetry Medical Decision Making - Medical Decision Making 48-year-old male presents the emergency department for worsening knee pain times one day. Patient states he has had left leg and knee pain for the past month. He states he has been seeing Dr. Rasheed for this. Patient does have a history of chronic DVTs and is currently on Coumadin. Vitals are stable and patient is afebrile. On exam there is moderate swelling noted of the knee and calf. Negative Homans sign. No tenderness posterior to the knee. No tenderness in the calf. No erythema or increased warmth noted of the left knee or calf. No evidence of infection. Patient has about 110 flexion of the left knee. He is able to bear weight on the left knee. X-ray of the left knee shows minimal marginal spurring in the medial compartment and patellofemoral joint. There may be suprapatellar increased density compatible with joint effusion. Ultrasound of the left lower extremity shows a nonocclusive DVT of questionable chronicity. Patient's PT/INR is 1.7, DVT is likely chronic. ESR and CRP are only mildly elevated. Patients white count is normal and he is afebrile with intact range of motion of the left knee so very low suspicion for septic arthritis. Patient has osteoarthritis in the left knee which may be causing his pain. He can take an extra dose of Coumadin today and follow-up with his primary care provider for INR. He will follow up with orthopedics as well as Dr. Rasheed for his knee. He will return here for any worsening symptoms. - Lab Data Result diagrams: 02/26/18 18:21 02/26/18 18:21 Lab Results 02/26/18 02/26/18 02/26/18 Range/Units 18:21 18:21 19:45 WBC 8.7 (3.8-10.6) k/uL RBC 4.44 (4.30-5.90) m/uL Hgb 12.8 L (13.0-17.5) gm/dL Hct 38.8 L (39.0-53.0) % MCV 87.5 (80.0-100.0) fL MCH 28.8 (25.0-35.0) pg MCHC 33.0 (31.0-37.0) g/dL RDW 13.4 (11.5-15.5) % Plt Count 235 (150-450) k/uL Neutrophils % 65 % Lymphocytes % 21 % Monocytes % 8 % Eosinophils % 4 % Basophils % 1 % Neutrophils # 5.7 (1.3-7.7) k/uL Lymphocytes # 1.8 (1.0-4.8) k/uL Monocytes # 0.7 (0-1.0) k/uL Eosinophils # 0.4 (0-0.7) k/uL Basophils # 0.1 (0-0.2) k/uL ESR 33 H (0-15) mm/hr PT 15.7 H (9.0-12.0) sec INR 1.7 H (<1.2) Sodium 137 (137-145) mmol/L Potassium 4.4 (3.5-5.1) mmol/L Chloride 100 (98-107) mmol/L Carbon Dioxide 30 (22-30) mmol/L Anion Gap 7 mmol/L BUN 19 (9-20) mg/dL Creatinine 0.71 (0.66-1.25) mg/dL Est GFR (CKD-EPI)AfAm >90 (>60 ml/min/1.73 sqM) Est GFR (CKD-EPI)NonAf >90 (>60 ml/min/1.73 sqM) Glucose 184 H (74-99) mg/dL Calcium 9.1 (8.4-10.2) mg/dL Total Bilirubin 0.5 (0.2-1.3) mg/dL AST 32 (17-59) U/L ALT 35 (21-72) U/L Alkaline Phosphatase 84 (38-126) U/L C-Reactive Protein 37.8 H (<10.0) mg/L Total Protein 6.8 (6.3-8.2) g/dL Albumin 3.6 (3.5-5.0) g/dL Disposition Clinical Impression: Knee pain, left Disposition: HOME SELF-CARE Condition: Good Instructions: Knee Pain (ED) Additional Instructions: Please follow up with primary care provider in one to 2 days for PT/INR. Please follow-up with orthopedics for left knee pain. Please return here for any worsening symptoms. Is patient prescribed a controlled substance at d/c from ED?: No Referrals: Stacy Gomez MD [Primary Care Provider] - 1-2 days Pillo Fu DO [Doctor of Osteopathic Medicine] - 1-2 days Time of Disposition: 21:15
[2018-02-26 19:28] LABS: Erythrocyte Sedimentation Rate 33 mm/hr (0-15)
[2018-02-26 21:09] LABS: INR 1.7 (<1.2); Prothrombin Time 15.7 sec (9.0-12.0)
[2018-02-26 21:23] VITALS: BP 152/74; PULSE 82; RESP 16
== END 2018-02-26 21:23 | disposition home or self-care (01) ==
LOC: EC 16:59
DX: I82.402 Acute embolism and thrombosis of unspecified deep veins of left lower extremity (principal); M17.12 Unilateral primary osteoarthritis, left knee; E11.9 Type 2 diabetes mellitus without complications; K21.9 Gastro-esophageal reflux disease without esophagitis; E78.5 Hyperlipidemia, unspecified; I10 Essential (primary) hypertension; M19.90 Unspecified osteoarthritis, unspecified site; I73.9 Peripheral vascular disease, unspecified; F41.9 Anxiety disorder, unspecified; F32.9 Major depressive disorder, single episode, unspecified; G47.30 Sleep apnea, unspecified; Z99.89 Dependence on other enabling machines and devices; Z87.39 Personal history of other diseases of the musculoskeletal system and connective tissue; Z79.4 Long term (current) use of insulin; Z79.891 Long term (current) use of opiate analgesic; Z79.01 Long term (current) use of anticoagulants; Z79.899 Other long term (current) drug therapy
CPT/HCPCS: 36415; 80053; 85025; 85610; 85652; 86140; 99284

== ENCOUNTER → 2018-07-20 | Outpatient (CLI) | payer OTHER ==
[2018-07-20 13:26] LABS: HCT 43.1 % (39.0-53.0); MCH 27.7 pg (25.0-35.0); MCHC 32.4 g/dL (31.0-37.0); MCV 85.4 fL (80.0-100.0); Mean Platelet Volume 8.7; Platelet Count 230 k/uL (150-450); RBC 5.05 m/uL (4.30-5.90); RDW 14.1 % (11.5-15.5); Reticulocyte % 1.6 % (0.5-2.0)
[2018-07-20 19:12] LABS: Iron Saturation 10.79 (15.00-50.00)
[2018-07-20 20:28] LABS: Folate, Serum 20.2 ng/mL
[2018-07-21 13:25] LABS: Vit B1(Thiamine) 59 ug/L (38-122)
== END ==
LOC: LABWHC1 12:43
PROVIDERS: ATTEND Psychiatry & Neurology Pain Medicine
DX: D64.9 Anemia, unspecified (principal); R53.83 Other fatigue
CPT/HCPCS: 36415; 82607; 82668; 82728; 82746; 83540; 83550; 84207; 84425; 84466; 84591; 85027; 85045

== ENCOUNTER → 2018-07-28 | Outpatient (CLI) | payer OTHER ==
--- NOTE | 2018-07-28 15:30 | SFUN ---
SLEEP CENTER FOLLOW UP NOTE DATE OF SERVICE: 07/28/2018 A 48-year-old gentleman who has been followed in the Sleep Center for treatment of obstructive sleep apnea-hypopnea syndrome. For several months, patient has difficulties to use his CPAP equipment for different reasons including pain. He continued to have snoring and movements during the sleep. [place] Sleepiness Scale increased to 24. I checked his CPAP unit. Patient used it for 4 nights for more than 4 hours for last several months. MEDICATIONS: Coumadin, , Lyrica, loratadine, duloxetine, Glucophage, Clotrimazole, simvastatin, Protonix, lisinopril, ammonium lactate, Silvadene, Zanaflex, Actos, , Singulair, [QAMARKER], vitamin C, D3, pain pump. PHYSICAL EXAM: Patient in no distress. BP 124/71, HR 91, RR 16, height 5 foot, 5 inches, weight 293.2 pounds, body mass index 48.7, oxygen saturation at room air 92%, temperature 98.0. OROPHARYNX: Extremely low position of soft palate. Mallampati 4. ABDOMEN: Obese. Patient walked with a cane. IMPRESSION: 1. Obstructive sleep apnea-hypopnea syndrome. 2. Back problem, back pain, patient on pain pump. 3. History of left leg deep venous thrombosis. 4. History of Factor V Leiden deficiency. 5. Hyperlipidemia. PLAN: 1. Patient will use CPAP equipment every night with Saida View full-face mask. 2. Prescription for all necessary CPAP supplies including mask, tube, filters. 3. Losing weight. 4. Followup visit in 3 months. At that time, we will make decision about the possibility to replace the CPAP unit to new one. 5. Periodic limb movements, the patient may need additional pharmacotherapy with dopaminergic agonist. Thank you very much for allowing me to participate in the management to patient. Sincerely, Jefferson Foster MD, PhD, FAASM Diplomat of [place] [employer] [place] [employer] Agency Operator of [facility] MMODL / LAURENN: [phone] /
== END | disposition home or self-care (01) ==
LOC: SLEEP 13:45
PROVIDERS: ATTEND Internal Medicine
DX: G47.33 Obstructive sleep apnea (adult) (pediatric) (principal); M54.9 Dorsalgia, unspecified; D68.2 Hereditary deficiency of other clotting factors; I82.402 Acute embolism and thrombosis of unspecified deep veins of left lower extremity; E78.5 Hyperlipidemia, unspecified; E66.9 Obesity, unspecified; Z68.42 Body mass index [BMI] 45.0-49.9, adult; Z96.9 Presence of functional implant, unspecified; Z99.89 Dependence on other enabling machines and devices; Z79.01 Long term (current) use of anticoagulants; Z79.899 Other long term (current) drug therapy

== ENCOUNTER → 2019-01-16 | Outpatient (CLI) | payer OTHER ==
[2019-01-16 11:24] LABS: Anisocytosis Slight; Basophils # (A) 0.1 k/uL (0-0.2); Basophils % (A) 1 %; Eosinophils # (A) 0.3 k/uL (0-0.7); Eosinophils % (A) 4 %; HCT 37.9 % (39.0-53.0); HGB 12.6 gm/dL (13.0-17.5); Lymphocytes # (A) 1.5 k/uL (1.0-4.8); Lymphocytes % (A) 24 %; MCH 27.4 pg (25.0-35.0); MCHC 33.2 g/dL (31.0-37.0); MCV 82.5 fL (80.0-100.0); Mean Platelet Volume 8.4; Monocytes # (A) 0.5 k/uL (0-1.0); Monocytes % (A) 8 %; Neutrophils # (A) 3.9 k/uL (1.3-7.7); Neutrophils % (A) 61 %; Platelet Count 179 k/uL (150-450); RBC 4.59 m/uL (4.30-5.90); RDW 17.4 % (11.5-15.5); WBC 6.4 k/uL (3.8-10.6)
[2019-01-16 11:29] LABS: INR 2.1 (<1.2); Prothrombin Time 20.3 sec (9.0-12.0)
[2019-01-16 16:53] LABS: Hemoglobin A1C 7.8 % (4.0-6.0)
[2019-01-16 17:21] LABS: African American GFR (CKD) 129.3 (60.0-200.0); Albumin 3.9 g/dL (3.80-4.90); Albumin/Globulin Ratio 1.77 (1.60-3.17); Anion Gap 9.1 mmol/L (4.00-12.00); BUN/Creat Ratio 21.43 Ratio (12.00-20.00); Calcium 9.1 mg/dL (8.7-10.3); Carbon Dioxide 30.9 mmol/L (21.6-31.8); Chol/HDL Ratio 4.03; Globulin 2.2 g/dL (1.6-3.3); LDL Cholesterol,Calculated 90.8 mg/dL (0.0-131.0); Potassium 4.2 mmol/L (3.5-5.5); Total Bilirubin 0.4 mg/dL (0.2-1.2); Total Protein 6.1 g/dL (6.2-8.2); VLDL Calculation 24.2 mg/dL (5.00-40.00)
== END | disposition home or self-care (01) ==
LOC: LABWHC1 10:50
PROVIDERS: ATTEND Family Medicine
DX: Z00.00 Encounter for general adult medical examination without abnormal findings (principal); E11.42 Type 2 diabetes mellitus with diabetic polyneuropathy; Z86.718 Personal history of other venous thrombosis and embolism; E66.01 Morbid (severe) obesity due to excess calories; K31.84 Gastroparesis; R63.5 Abnormal weight gain; D64.9 Anemia, unspecified; Z79.02 Long term (current) use of antithrombotics/antiplatelets
CPT/HCPCS: 36415; 80053; 80061; 83036; 84443; 85025; 85610

== ENCOUNTER 2019-04-20 09:27 | Emergency (ER) | payer OTHER ==
[2019-04-20 09:34] VITALS: BP 108/74; PULSE 75; RESP 19; TEMP 98.5
[2019-04-20] MEDS ORDERED: HYDROmorphone 0.5 MG/0.5 ML SYRINGE IM STA (09:54)
--- NOTE | 2019-04-20 10:01 | ED ---
Back Pain [facility] - General Chief Complaint: Back Pain/Injury Stated Complaint: Back pain Time Seen by Provider: 04/20/19 09:41 Source: patient Limitations: no limitations - History of Present Illness Initial Comments: 49-year-old male presenting today for chief complaint of low back pain. Patient states he has chronic low back pain and a morphine pump that he receives 4 mg of localized morphine daily. Patient states that he was unable to get him with Dr. Villalobos to increase the morphine pump as it has been adjusting this gradually. He states today he and for the past 2 days he has had increasing low back pain denies any loss of bowel bladder control urinary retention loss of sensation or weakness of the lower extremities. Patient states this feels very typical of his low back pain exacerbations. Patient denies taking any oral opiates. Patient denies any fever history of cancer history of falls direct trauma history of chronic steroid use. Patient has no other complaints at this time remaining review of system negative patient able to recurs on arrival - Related Data Home Medications Medication Instructions Recorded Confirmed Latanoprost Ophth [Xalatan 0.005%] 1 drops BOTH EYES HS 01/23/14 09/30/17 Simvastatin [Zocor] 20 mg PO HS 01/23/14 09/30/17 Clotrimazole [Lotrimin AF] 1 applic TOPICAL DAILY 01/28/16 09/30/17 Insulin Glulisine [Apidra] 30 unit SQ AC-TID 01/28/16 09/30/17 Insulin Glulisine [Apidra] See Protocol SQ DAILY 01/28/16 09/30/17 Lisinopril-Hctz 10-12.5 mg 1 tab PO DAILY 01/28/16 09/30/17 [Zestoretic 10-12.5] Loratadine [Claritin] 10 mg PO DAILY 01/28/16 09/30/17 Pantoprazole Sodium [Protonix] 40 mg PO HS 01/28/16 09/30/17 metFORMIN HCL [Glucophage] 1,000 mg PO BID 01/28/16 09/30/17 tiZANidine HCL [Zanaflex] 4 mg PO BID PRN 01/28/16 09/30/17 Morphine Pain Pump 1 dose SQ CONTINUOUS 05/05/17 09/30/17 Ammonium Lactate Cream [Lac-Hydrin 1 applic TOPICAL DAILY 09/30/17 09/30/17 12% Cream] Ascorbic Acid [Vitamin C] 500 mg PO HS 09/30/17 09/30/17 Cholecalciferol [Vitamin D3] 1,000 unit PO DAILY 09/30/17 09/30/17 DULoxetine HCL [Cymbalta] 60 mg PO DAILY 09/30/17 09/30/17 Insulin Glargine,Hum.rec.anlog 50 unit SQ BID 09/30/17 09/30/17 [Basaglar Kwikpen U-100] Montelukast Sodium [Singulair] 10 mg PO DAILY PRN 09/30/17 09/30/17 Pioglitazone [Actos] 30 mg PO DAILY 09/30/17 09/30/17 Potassium 99 mg PO HS 09/30/17 09/30/17 Pregabalin [Lyrica] 200 mg PO BID 09/30/17 09/30/17 Ranitidine HCl 300 mg PO HS 09/30/17 09/30/17 SILVER sulfADIAZINE Cream 1 applic TOPICAL DAILY PRN 09/30/17 09/30/17 [Silvadene 1% Cream] Tamsulosin HCl [Flomax] 0.4 mg PO DAILY 09/30/17 09/30/17 Warfarin Sodium [Coumadin] 6 mg PO HS 09/30/17 09/30/17 Allergies Allergy/AdvReac Type Severity Reaction Status Date / Time No Known Allergies Allergy Verified 02/26/18 17:03 Review of Systems ROS Statement: Those systems with pertinent positive or pertinent negative responses have been documented in the HPI. ROS Other: All systems not noted in ROS Statement are negative. Past Medical History Past Medical History: Blood Disorder, Diabetes Mellitus, Deep Vein Thrombosis (DVT), GERD/Reflux, Hyperlipidemia, Hypertension, Musculoskeletal Disorder, Osteoarthritis (OA), Sleep Apnea/CPAP/BIPAP Additional Past Medical History / Comment(s): FACTOR 5 LEIDEN, HX OF (2) DVT'S LEFT LEG & (1) SUPERFICIAL CLOT currently upper abdominal pain,hiatal hernia, LEFT LEG, USES BIPAP MACHINE , ENVIRONMENTAL ALLERGIES, FATTY LIVER, DDD & BULDGING DISC WITH BACK PAIN WEARS BRACE,USES CANE, PARTIALLY BLIND LEFT EYE., STATES SCARRING WITH NARROWING OF ESOPHAGUS & Hx of DIFFICULTY SWALLOWING. KIDNEY INFECTION IN PAST, CELLULITIS LL LEG X2, MIGRAINES,PVD, gastroparesis History of Any Multi-Drug Resistant Organisms: None Reported Past Surgical History: Tonsillectomy Additional Past Surgical History / Comment(s): eye surgery as , EGD WITH DILATION X2 , uppp sx for slep apnea,pain pump insertion Past Anesthesia/Blood Transfusion Reactions: Family Hisory of Malignant Hyperthermia Additional Past Anesthesia/Blood Transfusion Reaction / Comment(s): STATES "MOTHER CRASHES"passes out"-with anesthesia,"needs to have a life science teacher dose" Past Psychological History: Anxiety, Depression Smoking Status: Never smoker Past Alcohol Use History: None Reported Past Drug Use History: None Reported - Past Family History Father Family Medical History: Cancer Additional Family Medical History / Comment(s): BLADDER CANCER Mother Family Medical History: CVA/TIA, Diabetes Mellitus, Myocardial Infarction ([place]) General Exam - General Exam Comments Initial Comments: General: The patient is awake and alert, in no distress, and does not appear acutely ill. Eye: Pupils are equal, round and reactive to light, extra-ocular movements are intact. No nystagmus. There is normal conjunctiva bilaterally. No signs of icterus. Cardiovascular: There is a regular rate and rhythm. No murmur, rub or gallop is appreciated. Respiratory: Lungs are clear to auscultation, respirations are non-labored, breath sounds are equal. No wheezes, stridor, rales, or rhonchi. Musculoskeletal: Inspection of the cervicothoracic and lumbar spine. Patient has some midline tenderness to palpation of the upper lumbar spine. Patient admitted patient has paravertebral tenderness. Normal range of motion and strength of the lower extremity bilaterally equal. Sensation intact of the lower extremities including the saddle region. +2 dorsalis pedis pulses equal and comparison bilaterally. Negative straight leg raise. Patient is able to ambulate and weight-bear without difficulty. Neurological: A&O x 3. CN II-XII intact grossly, There are no obvious motor or sensory deficits. Coordination appears grossly intact. Speech is normal. Skin: Skin is warm and dry and no rashes or lesions are noted. Psychiatric: Cooperative, appropriate mood & affect, normal judgment. Limitations: no limitations Course Vital Signs 04/20/19 04/20/19 09:31 12:20 Temperature 98.5 F 98.5 F Pulse Rate 75 75 Respiratory 19 19 Rate Blood Pressure 108/74 108/74 O2 Sat by Pulse 97 97 Oximetry Medical Decision Making - Medical Decision Making 49-year-old male presenting for low back pain. Patient given 1 dose of Dilaudid IM. He states this took away the pain within 25 minutes. Patient denies any symptoms concerning for cauda equina nor physical examination findings. At this time I feel patient is stable for discharge with outpatient neurology follow- up. Patient is agreeable prefers discharge at this time. Denies any additional complaints and isagreable to all return parameters. Discussed case attending provider patient was discharged appearing well Disposition Clinical Impression: Acute exacerbation of chronic low back pain Disposition: HOME SELF-CARE Condition: Good Instructions (If sedation given, give patient instructions): Acute Low Back Pain (ED) Additional Instructions: Please follow-up with Dr. Rasheed and PCP. Return to the ER for symptoms discussed, return/worsening or persistent symptoms, fever, loss of bowel or bladder control, unable to walk or urinate. Is patient prescribed a controlled substance at d/c from ED?: No Referrals: Stacy Gomez MD [Primary Care Provider] - 1-2 days Time of Disposition: 11:19
== END 2019-04-20 12:30 | disposition home or self-care (01) ==
LOC: EC 09:27
DX: G89.29 Other chronic pain (principal); M54.5 Low back pain; E78.5 Hyperlipidemia, unspecified; E11.9 Type 2 diabetes mellitus without complications; F41.9 Anxiety disorder, unspecified; F32.9 Major depressive disorder, single episode, unspecified; K21.9 Gastro-esophageal reflux disease without esophagitis; I10 Essential (primary) hypertension; Z79.01 Long term (current) use of anticoagulants; Z79.4 Long term (current) use of insulin; Z79.899 Other long term (current) drug therapy; Z86.718 Personal history of other venous thrombosis and embolism
CPT/HCPCS: 99283; 96372; J1170

== ENCOUNTER → 2019-04-28 | Outpatient (CLI) | payer OTHER ==
[2019-04-28 10:31] LABS: INR 0.9 (<1.2)
== END | disposition home or self-care (01) ==
LOC: LABWHC1 09:00
PROVIDERS: ATTEND Nurse Practitioner
DX: Z09 Encounter for follow-up examination after completed treatment for conditions other than malignant neoplasm (principal); Z86.718 Personal history of other venous thrombosis and embolism
CPT/HCPCS: 36415; 85610

== ENCOUNTER 2019-05-02 06:37 | Day surgery (SDC) | payer OTHER ==
[2019-05-01 09:50] VITALS: BMI 43.7
[~2019-05-02 06:37] MED LIST changes: +LIDOCAINE 1% 20 ML VIAL (10MG/ML) FOR IV START INTRADERMA PRN
[2019-05-02] MEDS ORDERED: LACTATED RINGERS 1,000 ML IV ONE (07:03)
[2019-05-02 07:20] VITALS: TEMP 98
[2019-05-02 07:23] LABS: Glucose,Whole Blood 188 mg/dL (75-99)
[2019-05-02] MEDS ORDERED: KETAMINE 10 MG/ML 20 ML VIAL ONE (07:26)
[2019-05-02] MEDS ORDERED: MIDAZOLAM 2 MG/2 ML VIAL ONE (07:26)
[2019-05-02] MEDS ORDERED: PROPOFOL 10 MG/ML 20 ML VIAL IV ONE (07:26)
[2019-05-02] MEDS ORDERED: LIDOCAINE 1% INJ 10MG/ML (20 ML MDV) ONE (07:26)
--- NOTE | 2019-05-02 08:14 | P.PCN ---
Date of Procedure: 05/02/19 Description of Procedure: BRIEF HISTORY: 49-year-old male with a medical history of GERD and tapering off distal esophageal stricture requiring dilation in the past. Last EGD with dilation in 10/2018 with the patient dilated sequentially with 12, 13.5, and 15 mm balloon dilation. Patient has had continued symptoms of dysphagia over the past few weeks requiring ER visits. Currently he is maintained on twice daily PPI therapy. PROCEDURE PERFORMED: Esophagogastroduodenoscopy with balloon dilation of the esophagus. PREOPERATIVE DIAGNOSIS: Esophageal dysphagia, a benign esophageal stricture. ESTIMATED BLOOD LOSS: Minimal. IV sedation per anesthesia. PROCEDURE: After informed consent was obtained, the patient was brought into the endoscopy unit. IV sedation was administered by Anesthesia under continuous monitoring. Initially the Olympus GIF-190 video endoscope was inserted into the mouth. Esophagus intubated without any difficulty. It was gradually advanced into the stomach and duodenum and carefully examined. The bulb and the second part of the duodenum appeared normal. The scope at this time was withdrawn to the stomach, adequately insufflated with air, and upon careful examination, mucosa of the antrum, body, cardia and the fundus appeared normal. The scope was then withdrawn into the esophagus. The GE junction was located at 36 cm from the incisors with a 4 cm hiatal hernia noted. The esophagus was significant for a benign-appearing esophageal stricture located proximally to the GE junction. A [id number]-[id number]-[id number] balloon dilator was used to sequentially dilate the distal esophagus to 1213.515 mm. Superficial mucosal tearing was noted at 15 mm and the procedure was completed. The patient tolerated the procedure well. IMPRESSION: 1. Benign-appearing distal esophageal stricture sequentially dilated with a [id number]-egb-[id number] balloon dilator. 2. Large hiatal hernia. RECOMMENDATIONS: The findings of this examination were discussed with the patient and his . Okay to resume diet. Continue twice daily PPI therapy. Follow up in or stroenterology clinic as previously scheduled. If patient continues to have symptoms would recommend repeat EGD with dilation in 1 month.
[2019-05-02 08:40] VITALS: BP 108/70; PULSE 81; RESP 16
== END 2019-05-02 09:30 | disposition home or self-care (01) ==
LOC: ORWHC2ENDO 06:37
PROVIDERS: ATTEND Internal Medicine
DX: K22.2 Esophageal obstruction (principal); K44.9 Diaphragmatic hernia without obstruction or gangrene; K21.9 Gastro-esophageal reflux disease without esophagitis; G47.33 Obstructive sleep apnea (adult) (pediatric); E11.9 Type 2 diabetes mellitus without complications; D68.2 Hereditary deficiency of other clotting factors; K08.89 Other specified disorders of teeth and supporting structures; Z90.89 Acquired absence of other organs; Z98.890 Other specified postprocedural states; Z79.4 Long term (current) use of insulin; Z79.899 Other long term (current) drug therapy; Z79.01 Long term (current) use of anticoagulants; Z80.52 Family history of malignant neoplasm of bladder
CPT/HCPCS: 43249; J2250; J2001; J2704; C1726

== ENCOUNTER → 2020-05-21 | Outpatient (CLI) | payer OTHER ==
[2020-05-21 11:48] LABS: Anisocytosis Slight; Basophils # (A) 0.1 k/uL (0-0.2); Basophils % (A) 1 %; Eosinophils # (A) 0.2 k/uL (0-0.7); Eosinophils % (A) 3 %; HCT 38.2 % (39.0-53.0); HGB 12.3 gm/dL (13.0-17.5); Lymphocytes # (A) 1.4 k/uL (1.0-4.8); Lymphocytes % (A) 23 %; MCH 25.4 pg (25.0-35.0); MCHC 32.1 g/dL (31.0-37.0); Mean Platelet Volume 9.3; Microcytosis Slight; Monocytes # (A) 0.4 k/uL (0-1.0); Monocytes % (A) 7 %; Neutrophils % (A) 65 %; Platelet Count 210 k/uL (150-450); RBC 4.83 m/uL (4.30-5.90); Reticulocyte % 2.4 % (0.5-2.0); WBC 6.3 k/uL (3.8-10.6)
[2020-05-21 15:53] LABS: Testosterone <7.00 ng/dL (86.98-780.10)
[2020-05-21 16:47] LABS: % Iron Saturation 11.14 (15.00-50.00); ALT 26 U/L (10-49); AST 26 U/L (14-35); African American GFR (CKD) 101.3 (60.0-200.0); Albumin/Globulin Ratio 1.95 (1.60-3.17); Alkaline Phosphatase 125 U/L (41-126); Calcium 9.2 mg/dL (8.7-10.3); Carbon Dioxide 29.5 mmol/L (21.6-31.8); Chloride 101 mmol/L (96-109); Chol/HDL Ratio 4.94; Cholesterol 168 mg/dL (0-200); Creatine Kinase 252 U/L (35-257); Globulin 2.1 g/dL (1.6-3.3); Glucose 180 mg/dL (70-110); Iron 43 ug/dL (65-175); Non-African American GFR(CKD) 87.4 (60.0-200.0); Sodium 142 mmol/L (135-145); Total Bilirubin 0.4 mg/dL (0.2-1.2); Total Iron Binding Capacity 386 ug/dL (228-460); Total Protein 6.2 g/dL (6.2-8.2)
[2020-05-21 16:55] LABS: Ferritin 34.9 ng/mL (22.0-322.0)
[2020-05-21 16:58] LABS: Folate, Serum 8.6 ng/mL
[2020-05-22 05:48] LABS: Hemoglobin A1C 7.7 % (4.0-6.0)
[2020-05-23 12:54] LABS: Vit B1(Thiamine) 42 ug/L (38-122)
[2020-05-26 08:30] LABS: Nicotinamide 22 ng/mL; Nicotinic Acid None Detected; Nicotinuric Acid None Detected
== END | disposition home or self-care (01) ==
LOC: LABWHC1 11:05
PROVIDERS: ATTEND Psychiatry & Neurology Pain Medicine
DX: R53.83 Other fatigue (principal); R53.1 Weakness; Z51.81 Encounter for therapeutic drug level monitoring
CPT/HCPCS: 36415; 80053; 80061; 82550; 82607; 82668; 82728; 82746; 83036; 83540; 83550; 84207; 84403; 84425; 84439; 84443; 84466; 84481; 84591; 85025; 85045

== ENCOUNTER → 2020-09-28 | Outpatient (CLI) | payer OTHER ==
--- NOTE | 2020-09-28 10:25 | XR ---
Bilateral feet HISTORY: None Foot wounds. COMPARISON: None. TECHNIQUE: 6 views the right and left knee were obtained. FINDINGS: There is diffuse osteopenia There are moderate osteoarthritic changes of the tarsal joints of the mid feet bilaterally. There are no fractures or dislocations. There is no focal intraosseous abnormality or cortical destruction to suggest osteomyelitis. There are prominent calcaneal spurs bilaterally. There are vascular calcificat ions. IMPRESSION: No evidence of focal bone destruction, fracture or dislocation. There is diffuse osteoarthritic sharp e in arthritic change in the mid feet bilaterally.
[2020-09-28 17:34] LABS: Basophils # (A) 0.08 X 10*3/uL (0.00-0.10); Basophils % (A) 0.8 %; HCT 36.8 % (39.6-50.0); HGB 11.2 g/dL (13.0-17.0); Lymphocytes # (A) 1.87 X 10*3/uL (0.90-5.00); Lymphocytes % (A) 18.9 %; MCH 26.5 pg (27.0-32.0); MCHC 30.4 g/dL (32.0-37.0); Mean Platelet Volume 11.3 fL (9.5-12.2); Monocytes # (A) 0.93 X 10*3/uL (0.20-1.00); Monocytes % (A) 9.4 %; Neutrophils % (A) 65.5 %; Platelet Count 230 X 10*3/uL (140-440); RBC 4.23 X 10*6/uL (4.40-5.60); RDW 17.7 % (11.5-14.5); WBC 9.92 X 10*3/uL (4.50-10.00)
[2020-09-28 22:38] LABS: Albumin 4.1 g/dL (3.80-4.90); Albumin/Globulin Ratio 1.86 (1.60-3.17); Anion Gap 10.4 mmol/L (4.00-12.00); BUN/Creat Ratio 17.78 Ratio (12.00-20.00); Calcium 8.9 mg/dL (8.7-10.3); Carbon Dioxide 33.6 mmol/L (21.6-31.8); Globulin 2.2 g/dL (1.6-3.3); Non-African American GFR(CKD) 99.2 (60.0-200.0); Potassium 4.2 mmol/L (3.5-5.5); Total Bilirubin 0.5 mg/dL (0.3-1.2); Total Protein 6.3 g/dL (6.2-8.2)
== END | disposition home or self-care (01) ==
LOC: LABWHC1 09:22
PROVIDERS: ATTEND Podiatrist
DX: E11.621 Type 2 diabetes mellitus with foot ulcer (principal); L97.512 Non-pressure chronic ulcer of other part of right foot with fat layer exposed; L97.522 Non-pressure chronic ulcer of other part of left foot with fat layer exposed; M14.671 Charcot's joint, right ankle and foot; M14.672 Charcot's joint, left ankle and foot
CPT/HCPCS: 36415; 80053; 83036; 84134; 85025

== ENCOUNTER → 2020-10-02 | Outpatient (CLI) | payer OTHER ==
--- NOTE | 2020-10-02 14:51 | US ---
EXAMINATION TYPE: US venous doppler duplex LE RT DATE OF EXAM: 10/02/2020 2:46 PM COMPARISON: NONE CLINICAL HISTORY: l97.531 NON-PRESSURE CHRONIC ULCER OF OTHER PART O. right foot ulcer. SIDE PERFORMED: Right TECHNIQUE: The lower extremity deep venous system is examined utilizing real time linear array sonog errol with graded compression, doppler sonography and color-flow sonography. VESSELS IMAGED: Common Femoral Vein Deep Femoral Vein Greater Saphenous Vein * Femoral Vein Popliteal Vein Small Saphenous Vein * Proximal Calf Veins (* superficial vessels) Right Leg: Negative for DVT Grayscale, color doppler, spectral doppler imaging performed of the deep veins of the right lower ext remity. There is normal flow, compressibility, vascular waveforms. IMPRESSION: No ultrasound evidence for acute DVT in the right lower extremity.
--- NOTE | 2020-10-09 09:05 | P.ARTDOP ---
Arterial Doppler LOWER EXTREMITY ARTERIAL DOPPLER: DATE OF SERVICE: 10/02/2020 Reason for study: Bilateral leg pain. Doppler waveforms: Multiphasic bilaterally throughout. Pulse volume recording: []. Pressure gradients: None. Ankle-brachial indices: Greater than 1 bilaterally. Toe brachial indices: 0.82 on the right, 0.72 on the left Impression: Normal study.
== END | disposition home or self-care (01) ==
LOC: RADUSWWP 13:10
PROVIDERS: ATTEND Family Medicine
DX: L97.519 Non-pressure chronic ulcer of other part of right foot with unspecified severity (principal); M79.661 Pain in right lower leg; M79.662 Pain in left lower leg
CPT/HCPCS: 93922; 93923

== ENCOUNTER 2020-10-25 | Inpatient (IN) | payer OTHER | END 2020-10-30 19:11 | disposition home or self-care (01) | DRG 638 | PROVIDERS: ADMIT Hospitalist | PROC: 02HV33Z Insertion of Infusion Device into Superior Vena Cava, Percutaneous Approach (ICD-10-PCS; principal; 2020-10-29) | PROC: B548ZZA Ultrasonography of Superior Vena Cava, Guidance (ICD-10-PCS; 2020-10-29) ==

== ENCOUNTER 2020-10-31 20:28 | Emergency (ER) | payer OTHER ==
[2020-10-31] MEDS ORDERED: SODIUM CHLORIDE 0.9% 500 ML 500 ML IV STA (20:59)
[2020-10-31] MEDS ORDERED: ONDANSETRON 4 MG/2 ML VIAL IVP STA (20:59)
[2020-10-31] MEDS ORDERED: HYDROmorphone 0.5 MG/0.5 ML SYRINGE IVP STA (20:59)
--- NOTE | 2020-10-31 21:20 | ED ---
Nausea/Vomiting/Diarrhea HPI - General Chief complaint: Nausea/Vomiting/Diarrhea Stated complaint: nausea Time Seen by Provider: 10/31/20 20:44 Source: patient Mode of arrival: ambulatory Limitations: no limitations - History of Present Illness Initial comments: 50 year-old male patient presents to the emergency department for evaluation of nausea and upper abdominal pain. States that symptoms started this morning and have been worsening throughout the day. States that he was discharged from the hospital yesterday after being admitted for evaluation of chronic wounds to the bilateral feet. He was diagnosed with osteomyelitis on the right, and cultures came back positive for pseudomonas aeruginosa. He was discharged with PICC line in place and prescriptions for cefepime IV and Flagyl tablets. He has not yet started the flagyl. He has had two doses of the cefepime. Patient denies any vomiting. States he had an episode of diarrhea tonight. Denies any fevers since arriving home. Patient denies any recent rash, cough, shortness of breath, chest pain, constipation, back pain, numbness, tingling, dizziness, weakness, hematuria, dysuria, urinary urgency, urinary frequency, headache, visual changes, or any other complaints. - Related Data Home Medications Medication Instructions Recorded Confirmed Latanoprost Ophth [Xalatan 0.005%] 1 drop BOTH EYES HS 01/23/14 10/31/20 Simvastatin [Zocor] 20 mg PO HS 01/23/14 10/31/20 Loratadine [Claritin] 10 mg PO DAILY 01/28/16 10/31/20 Pantoprazole Sodium [Protonix] 40 mg PO BID 01/28/16 10/31/20 metFORMIN HCL [Glucophage] 1,000 mg PO BID 01/28/16 10/31/20 Morphine Pain Pump 1 dose INTRATHECA CONTINUOUS 05/05/17 10/31/20 Ammonium Lactate Cream [Lac-Hydrin 1 applic TOPICAL DAILY 09/30/17 10/31/20 12% Cream] Ascorbic Acid [Vitamin C] 500 mg PO HS 09/30/17 10/31/20 Cholecalciferol [Vitamin D3 (25 25 mcg PO DAILY 09/30/17 10/31/20 Mcg = 1000 Iu)] DULoxetine HCL [Cymbalta] 60 mg PO DAILY 09/30/17 10/31/20 Pregabalin [Lyrica] 200 mg PO BID 09/30/17 10/31/20 Baclofen [Lioresal] 10 mg PO TID 10/25/20 10/31/20 Cyclobenzaprine [Flexeril] 10 mg PO Q8H PRN 10/25/20 10/31/20 DULoxetine HCL [Cymbalta] 30 mg PO BID 10/25/20 10/31/20 Ferrous Sulfate [Iron (65 MG 325 mg PO DAILY 10/25/20 10/31/20 Elemental)] Fluticasone Propionate [Flovent 2 puff INHALATION RT-BID 10/25/20 10/31/20 Hfa 220 mcg] Furosemide [Lasix] 40 mg PO BID 10/25/20 10/31/20 Potassium Chloride [K-Tab ER] 20 meq PO DAILY 10/25/20 10/31/20 SUMAtriptan succinate [Imitrex] 50 mg PO DAILY PRN 10/25/20 10/31/20 metroNIDAZOLE [Flagyl] 500 mg PO Q8H 10/31/20 10/31/20 Previous Rx's Medication Instructions Recorded Cefepime [Maxipime] 2 gm IVPB Q8H #90 bag 10/30/20 Insulin Glargine,Hum.rec.anlog 50 unit SQ BID #0 10/30/20 [Lantus Solostar] Insulin Lispro [humaLOG Kwikpen] 14 unit SQ AC-TID #0 10/30/20 Warfarin [Coumadin] 7.5 mg PO HS #0 10/30/20 Dicyclomine [Bentyl] 20 mg PO QID #15 tablet 10/31/20 Metoclopramide [Reglan] 10 mg PO Q8H PRN #15 tab 10/31/20 Allergies Allergy/AdvReac Type Severity Reaction Status Date / Time adhesive Allergy Rash/Hives Verified 10/31/20 22:48 Review of Systems ROS Statement: Those systems with pertinent positive or pertinent negative responses have been documented in the HPI. ROS Other: All systems not noted in ROS Statement are negative. Past Medical History Past Medical History: Blood Disorder, Diabetes Mellitus, Deep Vein Thrombosis (DVT), GERD/Reflux, Hyperlipidemia, Hypertension, Musculoskeletal Disorder, Osteoarthritis (OA), Sleep Apnea/CPAP/BIPAP Additional Past Medical History / Comment(s): FACTOR 5 LEIDEN, HX OF (2) DVT'S LEFT LEG & (1) SUPERFICIAL CLOT,hiatal hernia, USES BIPAP MACHINE, ENVIRONMENTAL ALLERGIES, FATTY LIVER, DDD & BULDGING DISC WITH BACK PAIN WEARS BRACE occasionally,USES CANE, PARTIALLY BLIND LEFT EYE, STATES SCARRING WITH NARROWING OF ESOPHAGUS & Hx of DIFFICULTY SWALLOWING. MIGRAINES, PVD, gastroparesis History of Any Multi-Drug Resistant Organisms: None Reported Past Surgical History: Tonsillectomy Additional Past Surgical History / Comment(s): eye surgery as infant, EGD WITH DILATION X2 , uppp sx for sleep apnea, pain pump insertion Past Anesthesia/Blood Transfusion Reactions: Family History of Problems w/ Anesthesia Additional Past Anesthesia/Blood Transfusion Reaction / Comment(s): STATES "MOTHER CRASHES" "passes out"-with anesthesia,"needs to have a lead mechanical engineer dose" Past Psychological History: Anxiety, Depression Smoking Status: Never smoker Past Alcohol Use History: None Reported Past Drug Use History: None Reported - Past Family History Father Family Medical History: Cancer Additional Family Medical History / Comment(s): BLADDER CANCER Mother Family Medical History: CVA/TIA, Diabetes Mellitus, Myocardial Infarction ([place]) General Exam Limitations: no limitations General appearance: alert, in no apparent distress, other (This is a well- developed, well-nourished adult male patient in no acute distress. Vital signs upon presentation are temperature 98.3F, pulse 73, respirations 16, blood pressure 139/79, pulse ox 98% on room air.) Eye exam: Present: normal appearance, PERRL, EOMI. Absent: scleral icterus, conjunctival injection, periorbital swelling ENT exam: Present: normal exam, normal oropharynx, mucous membranes moist Respiratory exam: Present: normal lung sounds bilaterally. Absent: respiratory distress, wheezes, rales, rhonchi, stridor Cardiovascular Exam: Present: regular rate, normal rhythm, normal heart sounds. Absent: systolic murmur, diastolic murmur, rubs, gallop, clicks GI/Abdominal exam: Present: soft, tenderness (Mid epigastric, right upper quadrant), normal bowel sounds. Absent: distended, guarding, rebound, rigid Neurological exam: Present: alert, oriented X3, CN II-XII intact Psychiatric exam: Present: normal affect, normal mood Skin exam: Present: warm, dry, intact, normal color. Absent: rash Course Vital Signs 10/31/20 10/31/20 20:36 23:03 Temperature 98.3 F 97.4 F L Pulse Rate 73 72 Respiratory 16 18 Rate Blood Pressure 139/79 133/77 O2 Sat by Pulse 98 99 Oximetry Medical Decision Making - Medical Decision Making 50 year-old male patient presents to the emergency department for evaluation of abdominal cramping and nausea. Did start cefepime through the PICC line today. Reported some discomfort in the left upper arm so we did comfirm placement of PICC line with chest xray. Labs reviewed and were unremarkable. Patient given IV medications for symptoms. Upon re-evaluation he does feel better. He will be discharged with prescriptions of bentyl and reglan. Symptoms are likely a side effect of the cefepime as it can cause stomach cramping and nausea. He'll be discharged vomited the primary care physician for recheck in 1-2 days. Return parameters were discussed in detail. He verbalizes understanding and agrees with this plan. My attending is Dr. Coates. - Lab Data Result diagrams: 10/31/20 21:48 10/31/20 21:48 Lab Results 10/31/20 10/31/20 10/31/20 Range/Units 21:48 21:48 21:48 WBC 5.6 (3.8-10.6) k/uL RBC 3.92 L (4.30-5.90) m/uL Hgb 10.9 L (13.0-17.5) gm/dL Hct 32.6 L (39.0-53.0) % MCV 83.2 (80.0-100.0) fL MCH 27.8 (25.0-35.0) pg MCHC 33.5 (31.0-37.0) g/dL RDW 16.8 H (11.5-15.5) % Plt Count 223 (150-450) k/uL MPV 7.7 Neutrophils % 68 % Lymphocytes % 17 % Monocytes % 10 % Eosinophils % 2 % Basophils % 1 % Neutrophils # 3.8 (1.3-7.7) k/uL Lymphocytes # 0.9 L (1.0-4.8) k/uL Monocytes # 0.5 (0-1.0) k/uL Eosinophils # 0.1 (0-0.7) k/uL Basophils # 0.1 (0-0.2) k/uL Poikilocytosis Slight Anisocytosis Slight Sodium 137 (137-145) mmol/L Potassium 4.3 (3.5-5.1) mmol/L Chloride 98 (98-107) mmol/L Carbon Dioxide 33 H (22-30) mmol/L Anion Gap 6 mmol/L BUN 16 (9-20) mg/dL Creatinine 0.56 L (0.66-1.25) mg/dL Est GFR (CKD-EPI)AfAm >90 (>60 ml/min/1.73 sqM) Est GFR (CKD-EPI)NonAf >90 (>60 ml/min/1.73 sqM) Glucose 258 H (74-99) mg/dL Calcium 9.0 (8.4-10.2) mg/dL Total Bilirubin 0.4 (0.2-1.3) mg/dL AST 33 (17-59) U/L ALT 18 (4-49) U/L Alkaline Phosphatase 102 (38-126) U/L Total Protein 6.3 (6.3-8.2) g/dL Albumin 3.3 L (3.5-5.0) g/dL Lipase 21 L (23-300) U/L Urine Color Yellow Urine Appearance Cloudy (Clear) Urine pH 8.0 (5.0-8.0) Ur Specific [place] 1.019 (1.001-1.035) Urine Protein 1+ H (Negative) Urine Glucose (UA) 4+ H (Negative) Urine Ketones Negative (Negative) Urine Blood Negative (Negative) Urine Nitrite Negative (Negative) Urine Bilirubin Negative (Negative) Urine Urobilinogen <2.0 (<2.0) mg/dL Ur Leukocyte Esterase Negative (Negative) Urine RBC 2 (0-5) /hpf Urine WBC 1 (0-5) /hpf Amorphous Sediment Occasional H (None) /hpf - EKG Data -: EKG Interpreted by Me EKG Comments: EKG obtained at 2127 shows normal sinus rhythm with a ventricular rate of 74, LA interval 148, QRS duration 94, QT 408, QTC 452. No evidence of ST elevation or depression. - Radiology Data Radiology results: report reviewed, image reviewed 1 year x-ray of the chest is obtained. Report is reviewed in its entirety. There appears to be left-sided PICC line terminating in the SVC. Disposition Clinical Impression: Abdominal pain, Nausea Disposition: HOME SELF-CARE Condition: Good Instructions (If sedation given, give patient instructions): Acute Nausea and Vomiting (ED), Abdominal Pain (ED) Additional Instructions: Take medications as directed. Follow-up with the primary care physician for recheck in 1-2 days. Return for any new, worsening, or concerning symptoms. Prescriptions: Dicyclomine [Bentyl] 20 mg PO QID #15 tablet Metoclopramide [Reglan] 10 mg PO Q8H PRN #15 tab PRN Reason: Vomiting Is patient prescribed a controlled substance at d/c from ED?: No Referrals: Dl Waggoner MD [Primary Care Provider] - 1-2 days Time of Disposition: 23:54
--- NOTE | 2020-10-31 21:39 | XR ---
EXAMINATION TYPE: XR chest 1V confirm line [facility] DATE OF EXAM: 10/31/2020 COMPARISON: Chest x-ray September 30, 2017 HISTORY: PICC line placement. TECHNIQUE: Single AP portable frontal upright view of the chest is obtained. FINDINGS: Exam suboptimal due to body habitus and portable technique. There appears to be left-sided PICC line terminating in SVC. Persistent low lung volumes with slightly more prominent central vascul ar congestion and interstitial edema on current study. The cardiac silhouette size is more prominent and mildly enlarged. The osseous structures are intact. No pneumothorax noted. IMPRESSION: As above.
[2020-10-31 22:08] LABS: ALT 18 U/L (4-49); AST 33 U/L (17-59); African American GFR (CKD) >90 (>60 ml/min/1.73 sqM); Albumin 3.3 g/dL (3.5-5.0); Alkaline Phosphatase 102 U/L (38-126); Anion Gap 6 mmol/L; Blood Urea Nitrogen 16 mg/dL (9-20); Carbon Dioxide 33 mmol/L (22-30); Chloride 98 mmol/L (98-107); Glucose 258 mg/dL (74-99); Lipase 21 U/L (23-300); Non-African American GFR(CKD) >90 (>60 ml/min/1.73 sqM); Potassium 4.3 mmol/L (3.5-5.1); Sodium 137 mmol/L (137-145); Total Bilirubin 0.4 mg/dL (0.2-1.3); Total Protein 6.3 g/dL (6.3-8.2)
[2020-10-31 22:10] LABS: Anisocytosis Slight; Basophils # (A) 0.1 k/uL (0-0.2); Basophils % (A) 1 %; Eosinophils # (A) 0.1 k/uL (0-0.7); Eosinophils % (A) 2 %; HCT 32.6 % (39.0-53.0); HGB 10.9 gm/dL (13.0-17.5); Lymphocytes # (A) 0.9 k/uL (1.0-4.8); Lymphocytes % (A) 17 %; MCH 27.8 pg (25.0-35.0); MCHC 33.5 g/dL (31.0-37.0); MCV 83.2 fL (80.0-100.0); Mean Platelet Volume 7.7; Monocytes # (A) 0.5 k/uL (0-1.0); Monocytes % (A) 10 %; Neutrophils # (A) 3.8 k/uL (1.3-7.7); Neutrophils % (A) 68 %; Platelet Count 223 k/uL (150-450); Poikilocytosis Slight; RBC 3.92 m/uL (4.30-5.90); RDW 16.8 % (11.5-15.5); WBC 5.6 k/uL (3.8-10.6)
[2020-10-31 22:51] LABS: Amorphous Sediment,Urine Occasional /hpf; Appearance,Urine Cloudy (Clear); Bilirubin,Urine Negative (Negative); Blood,Urine Negative (Negative); Color,Urine Yellow; Glucose,Urine (UA) 4+ (Negative); Ketones,Urine Negative (Negative); Leukocyte Esterase,Urine Negative (Negative); Nitrite,Urine Negative (Negative); Protein,Urine 1+ (Negative); RBC,Urine 2 /hpf (0-5); Specific Gravity,Urine 1.019 (1.001-1.035); Urobilinogen,Urine <2.0 mg/dL (<2.0); WBC,Urine 1 /hpf (0-5)
[2020-10-31] MEDS ORDERED: diphenhydrAMINE 50 MG/ML 1 ML VIAL IVP STA (22:51)
[2020-10-31] MEDS ORDERED: DICYCLOMINE 10 MG/ML 2 ML AMP IM STA (22:51)
[2020-10-31] MEDS ORDERED: METOCLOPRAMIDE 5 MG/ML 2 ML VIAL IVP STA (22:51)
[2020-10-31 23:05] VITALS: RESP 18
[2020-11-01 00:04] VITALS: BP 149/85; PULSE 74; TEMP 98.9
== END 2020-11-01 00:06 | disposition home or self-care (01) ==
LOC: EC 20:28
DX: R10.11 Right upper quadrant pain (principal); R11.0 Nausea; R19.7 Diarrhea, unspecified; I10 Essential (primary) hypertension; E11.51 Type 2 diabetes mellitus with diabetic peripheral angiopathy without gangrene; E78.5 Hyperlipidemia, unspecified; G47.30 Sleep apnea, unspecified; G43.909 Migraine, unspecified, not intractable, without status migrainosus; H54.62 Unqualified visual loss, left eye, normal vision right eye; D68.51 Activated protein C resistance; F32.9 Major depressive disorder, single episode, unspecified; F41.9 Anxiety disorder, unspecified; K21.9 Gastro-esophageal reflux disease without esophagitis; M19.90 Unspecified osteoarthritis, unspecified site; Z86.718 Personal history of other venous thrombosis and embolism; Z79.01 Long term (current) use of anticoagulants; Z79.4 Long term (current) use of insulin; Z79.51 Long term (current) use of inhaled steroids; Z79.899 Other long term (current) drug therapy
CPT/HCPCS: 36415; 93005; 80053; 83690; 85025; 81001; 99284; 96374; 96375 ×3; 96372; J1200; J0500; J2765; J2405; J1170

== ENCOUNTER 2020-11-05 18:49 | Emergency (ER) | payer OTHER ==
[2020-11-05 19:08] VITALS: RESP 18
[2020-11-05] MEDS ORDERED: SODIUM CHLORIDE 0.9% 1,000 ML IV ONE (19:42)
[2020-11-05] MEDS ORDERED: ONDANSETRON 4 MG/2 ML VIAL IVP STA (19:42)
[2020-11-05 20:07] LABS: Anisocytosis Slight; Basophils # (A) 0.1 k/uL (0-0.2); Basophils % (A) 1 %; Eosinophils # (A) 0.3 k/uL (0-0.7); Eosinophils % (A) 4 %; HGB 10.6 gm/dL (13.0-17.5); Lymphocytes # (A) 0.8 k/uL (1.0-4.8); Lymphocytes % (A) 13 %; MCH 28.4 pg (25.0-35.0); MCHC 34.2 g/dL (31.0-37.0); Mean Platelet Volume 8.4; Monocytes # (A) 0.6 k/uL (0-1.0); Monocytes % (A) 9 %; Neutrophils # (A) 4.8 k/uL (1.3-7.7); Neutrophils % (A) 72 %; Platelet Count 218 k/uL (150-450); Poikilocytosis Slight; RBC 3.73 m/uL (4.30-5.90); RDW 16.8 % (11.5-15.5); WBC 6.7 k/uL (3.8-10.6)
[2020-11-05 20:15] LABS: Amorphous Sediment,Urine Rare /hpf; Appearance,Urine Cloudy (Clear); Bilirubin,Urine Negative (Negative); Blood,Urine Negative (Negative); Color,Urine Yellow; Glucose,Urine (UA) Negative (Negative); Ketones,Urine Trace (Negative); Leukocyte Esterase,Urine Negative (Negative); Mucus,Urine Few /hpf; Nitrite,Urine Negative (Negative); Protein,Urine 1+ (Negative); RBC,Urine <1 /hpf (0-5); Specific Gravity,Urine 1.022 (1.001-1.035); Squamous Epithelial Cell,Urine <1 /hpf (0-4); Urobilinogen,Urine <2.0 mg/dL (<2.0); WBC,Urine 4 /hpf (0-5)
[2020-11-05 20:15] LABS: INR 1.1 (<1.2); Prothrombin Time 11.3 sec (9.0-12.0)
[2020-11-05 20:16] LABS: Partial Thromboplastin Time 23.3 sec (22.0-30.0)
[2020-11-05 20:23] LABS: ALT 19 U/L (4-49); AST 29 U/L (17-59); African American GFR (CKD) >90 (>60 ml/min/1.73 sqM); Albumin 3.1 g/dL (3.5-5.0); Alkaline Phosphatase 121 U/L (38-126); Anion Gap 5 mmol/L; Blood Urea Nitrogen 15 mg/dL (9-20); Calcium 8.6 mg/dL (8.4-10.2); Carbon Dioxide 37 mmol/L (22-30); Chloride 96 mmol/L (98-107); Glucose 143 mg/dL (74-99); Lipase 13 U/L (23-300); Magnesium 1.7 mg/dL (1.6-2.3); Non-African American GFR(CKD) >90 (>60 ml/min/1.73 sqM); Potassium 3.6 mmol/L (3.5-5.1); Sodium 138 mmol/L (137-145); Total Bilirubin 0.3 mg/dL (0.2-1.3)
--- NOTE | 2020-11-05 21:18 | ED ---
Nausea/Vomiting/Diarrhea HPI - General Chief complaint: Nausea/Vomiting/Diarrhea Stated complaint: Nausea/Vomiting/Diarrhea Time Seen by Provider: 11/05/20 19:30 Source: patient Mode of arrival: ambulatory Limitations: no limitations - History of Present Illness Initial comments: Is a 50-year-old male with a history of diabetic foot ulcers currently on c efepime and Flagyl through PICC who presents emergency department for nausea. The patient states that he's had nausea since being started on the antibiotics when he left the hospital about 5 days ago. The patient was seen here a few days ago and prescribed Zofran however he states he is having persistent nausea. He's had intermittent episodes of diarrhea as well. He states he has not really been vomiting however. No fevers or chills. No cough or shortness of breath. He states that his wounds have been changed by the wound care nurse and have not had any change to them. His been no worsening pain in the foot. The patient states that he called Dr. Lang who advised him come emergency department for evaluation. - Related Data Home Medications Medication Instructions Recorded Confirmed Latanoprost Ophth [Xalatan 0.005%] 1 drop BOTH EYES HS 01/23/14 10/31/20 Simvastatin [Zocor] 20 mg PO HS 01/23/14 10/31/20 Loratadine [Claritin] 10 mg PO DAILY 01/28/16 10/31/20 Pantoprazole Sodium [Protonix] 40 mg PO BID 01/28/16 10/31/20 metFORMIN HCL [Glucophage] 1,000 mg PO BID 01/28/16 10/31/20 Morphine Pain Pump 1 dose INTRATHECA CONTINUOUS 05/05/17 10/31/20 Ammonium Lactate Cream [Lac-Hydrin 1 applic TOPICAL DAILY 09/30/17 10/31/20 12% Cream] Ascorbic Acid [Vitamin C] 500 mg PO HS 09/30/17 10/31/20 Cholecalciferol [Vitamin D3 (25 25 mcg PO DAILY 09/30/17 10/31/20 Mcg = 1000 Iu)] DULoxetine HCL [Cymbalta] 60 mg PO DAILY 09/30/17 10/31/20 Pregabalin [Lyrica] 200 mg PO BID 09/30/17 10/31/20 Baclofen [Lioresal] 10 mg PO TID 10/25/20 10/31/20 Cyclobenzaprine [Flexeril] 10 mg PO Q8H PRN 10/25/20 10/31/20 DULoxetine HCL [Cymbalta] 30 mg PO BID 10/25/20 10/31/20 Ferrous Sulfate [Iron (65 MG 325 mg PO DAILY 10/25/20 10/31/20 Elemental)] Fluticasone Propionate [Flovent 2 puff INHALATION RT-BID 10/25/20 10/31/20 Hfa 220 mcg] Furosemide [Lasix] 40 mg PO BID 10/25/20 10/31/20 Potassium Chloride [K-Tab ER] 20 meq PO DAILY 10/25/20 10/31/20 SUMAtriptan succinate [Imitrex] 50 mg PO DAILY PRN 10/25/20 10/31/20 metroNIDAZOLE [Flagyl] 500 mg PO Q8H 10/31/20 10/31/20 Previous Rx's Medication Instructions Recorded Cefepime [Maxipime] 2 gm IVPB Q8H #90 bag 10/30/20 Insulin Glargine,Hum.rec.anlog 50 unit SQ BID #0 10/30/20 [Lantus Solostar] Insulin Lispro [humaLOG Kwikpen] 14 unit SQ AC-TID #0 10/30/20 Warfarin [Coumadin] 7.5 mg PO HS #0 10/30/20 Dicyclomine [Bentyl] 20 mg PO QID #15 tablet 10/31/20 Metoclopramide [Reglan] 10 mg PO Q8H PRN #15 tab 10/31/20 Ondansetron Odt [Zofran Odt] 4 mg PO Q8HR PRN #12 tab 11/05/20 Allergies Allergy/AdvReac Type Severity Reaction Status Date / Time adhesive Allergy Rash/Hives Verified 11/05/20 19:06 Review of Systems ROS Statement: Those systems with pertinent positive or pertinent negative responses have been documented in the HPI. ROS Other: All systems not noted in ROS Statement are negative. Past Medical History Past Medical History: Blood Disorder, Diabetes Mellitus, Deep Vein Thrombosis (DVT), GERD/Reflux, Hyperlipidemia, Hypertension, Musculoskeletal Disorder, Osteoarthritis (OA), Sleep Apnea/CPAP/BIPAP Additional Past Medical History / Comment(s): FACTOR 5 LEIDEN, HX OF (2) DVT'S LEFT LEG & (1) SUPERFICIAL CLOT,hiatal hernia, USES BIPAP MACHINE, ENVIRONMENTAL ALLERGIES, FATTY LIVER, DDD & BULDGING DISC WITH BACK PAIN WEARS BRACE occasionally,USES CANE, PARTIALLY BLIND LEFT EYE, STATES SCARRING WITH NARROWING OF ESOPHAGUS & Hx of DIFFICULTY SWALLOWING. MIGRAINES, PVD, gastroparesis History of Any Multi-Drug Resistant Organisms: None Reported Past Surgical History: Tonsillectomy Additional Past Surgical History / Comment(s): eye surgery as infant, EGD WITH DILATION X2 , uppp sx for sleep apnea, pain pump insertion Past Anesthesia/Blood Transfusion Reactions: Family History of Problems w/ Anesthesia Additional Past Anesthesia/Blood Transfusion Reaction / Comment(s): STATES "MOTH ER CRASHES" "passes out"-with anesthesia,"needs to have a control systems eng dose" Past Psychological History: Anxiety, Depression Smoking Status: Never smoker Past Alcohol Use History: None Reported Past Drug Use History: None Reported - Past Family History Father Family Medical History: Cancer Additional Family Medical History / Comment(s): BLADDER CANCER Mother Family Medical History: CVA/TIA, Diabetes Mellitus, Myocardial Infarction ([place]) General Exam - General Exam Comments Initial Comments: Constitutional: Awake alert Appears comfortable Head: Normocephalic atraumatic Eyes: no conjunctival injection No scleral icterus EOMI Neck: No JVD Supple Heart: Regular rate rhythm normal S1-S2 no murmurs Lungs: Clear to auscultation bilaterally No wheezing No rales Abdomen: Soft nondistended nontender Extremities: Non edematous DP pulses intact Radial pulses intact, diabetic foot ulcers appear clean and dry no surrounding erythema, no drainage Neuro: A&Ox3 No focal neurologic deficits Psych: Appropriate mood and affect Limitations: no limitations Course Vital Signs 11/05/20 11/05/20 11/05/20 19:06 19:27 20:09 Temperature 97.2 F L Pulse Rate 71 65 65 Respiratory 18 18 18 Rate Blood Pressure 116/59 110/65 119/68 O2 Sat by Pulse 97 100 98 Oximetry 11/05/20 21:19 Temperature 98.3 F Pulse Rate 72 Respiratory 18 Rate Blood Pressure 129/79 O2 Sat by Pulse 97 Oximetry Medical Decision Making - Medical Decision Making This 50-year-old male who presents emergency department for nausea. The patient was given IV Zofran with improvement in his symptoms. He was found sleeping on repeat evaluation. Blood work was reviewed and unremarkable. No acute changes in his blood work. His wounds do not appear to be acutely infected. He is going to continue on antibiotics at home. I told him that if he needed to he could go up to 8 mg of Zofran and an 8 hour period however to continue with the 4 mg if that helped his symptoms. I would've prescribed a little bit more Zofran for home. He needs to speak with Dr. Lang about switching antibiotics i f he continues to have symptoms. All questions were answered. - Lab Data Result diagrams: 11/05/20 Unknown 11/05/20 Unknown Lab Results 11/05/20 11/05/20 11/05/20 Range/Units 20:10 Unknown Unknown WBC 6.7 (3.8-10.6) k/uL RBC 3.73 L (4.30-5.90) m/uL Hgb 10.6 L (13.0-17.5) gm/dL Hct 31.0 L (39.0-53.0) % MCV 83.0 (80.0-100.0) fL MCH 28.4 (25.0-35.0) pg MCHC 34.2 (31.0-37.0) g/dL RDW 16.8 H (11.5-15.5) % Plt Count 218 (150-450) k/uL MPV 8.4 Neutrophils % 72 % Lymphocytes % 13 % Monocytes % 9 % Eosinophils % 4 % Basophils % 1 % Neutrophils # 4.8 (1.3-7.7) k/uL Lymphocytes # 0.8 L (1.0-4.8) k/uL Monocytes # 0.6 (0-1.0) k/uL Eosinophils # 0.3 (0-0.7) k/uL Basophils # 0.1 (0-0.2) k/uL Poikilocytosis Slight Anisocytosis Slight PT 11.3 (9.0-12.0) sec INR 1.1 (<1.2) APTT 23.3 (22.0-30.0) sec Sodium (137-145) mmol/L Potassium (3.5-5.1) mmol/L Chloride (98-107) mmol/L Carbon Dioxide (22-30) mmol/L Anion Gap mmol/L BUN (9-20) mg/dL Creatinine (0.66-1.25) mg/dL Est GFR (CKD-EPI)AfAm (>60 ml/min/1.73 sqM) Est GFR (CKD-EPI)NonAf (>60 ml/min/1.73 sqM) Glucose (74-99) mg/dL Calcium (8.4-10.2) mg/dL Magnesium (1.6-2.3) mg/dL Total Bilirubin (0.2-1.3) mg/dL AST (17-59) U/L ALT (4-49) U/L Alkaline Phosphatase (38-126) U/L Total Protein (6.3-8.2) g/dL Albumin (3.5-5.0) g/dL Lipase (23-300) U/L Urine Color Yellow Urine Appearance Cloudy (Clear) Urine pH 6.0 (5.0-8.0) Ur Specific [place] 1.022 (1.001-1.035) Urine Protein 1+ H (Negative) Urine Glucose (UA) Negative (Negative) Urine Ketones Trace H (Negative) Urine Blood Negative (Negative) Urine Nitrite Negative (Negative) Urine Bilirubin Negative (Negative) Urine Urobilinogen <2.0 (<2.0) mg/dL Ur Leukocyte Esterase Negative (Negative) Urine RBC <1 (0-5) /hpf Urine WBC 4 (0-5) /hpf Ur Squamous Epith Cells <1 (0-4) /hpf Amorphous Sediment Rare H (None) /hpf Urine Mucus Few H (None) /hpf 11/05/20 Range/Units Unknown WBC (3.8-10.6) k/uL RBC (4.30-5.90) m/uL Hgb (13.0-17.5) gm/dL Hct (39.0-53.0) % MCV (80.0-100.0) fL MCH (25.0-35.0) pg MCHC (31.0-37.0) g/dL RDW (11.5-15.5) % Plt Count (150-450) k/uL MPV Neutrophils % % Lymphocytes % % Monocytes % % Eosinophils % % Basophils % % Neutrophils # (1.3-7.7) k/uL Lymphocytes # (1.0-4.8) k/uL Monocytes # (0-1.0) k/uL Eosinophils # (0-0.7) k/uL Basophils # (0-0.2) k/uL Poikilocytosis Anisocytosis PT (9.0-12.0) sec INR (<1.2) APTT (22.0-30.0) sec Sodium 138 (137-145) mmol/L Potassium 3.6 (3.5-5.1) mmol/L Chloride 96 L (98-107) mmol/L Carbon Dioxide 37 H (22-30) mmol/L Anion Gap 5 mmol/L BUN 15 (9-20) mg/dL Creatinine 0.64 L (0.66-1.25) mg/dL Est GFR (CKD-EPI)AfAm >90 (>60 ml/min/1.73 sqM) Est GFR (CKD-EPI)NonAf >90 (>60 ml/min/1.73 sqM) Glucose 143 H (74-99) mg/dL Calcium 8.6 (8.4-10.2) mg/dL Magnesium 1.7 (1.6-2.3) mg/dL Total Bilirubin 0.3 (0.2-1.3) mg/dL AST 29 (17-59) U/L ALT 19 (4-49) U/L Alkaline Phosphatase 121 (38-126) U/L Total Protein 6.0 L (6.3-8.2) g/dL Albumin 3.1 L (3.5-5.0) g/dL Lipase 13 L (23-300) U/L Urine Color Urine Appearance (Clear) Urine pH (5.0-8.0) Ur Specific [place] (1.001-1.035) Urine Protein (Negative) Urine Glucose (UA) (Negative) Urine Ketones (Negative) Urine Blood (Negative) Urine Nitrite (Negative) Urine Bilirubin (Negative) Urine Urobilinogen (<2.0) mg/dL Ur Leukocyte Esterase (Negative) Urine RBC (0-5) /hpf Urine WBC (0-5) /hpf Ur Squamous Epith Cells (0-4) /hpf Amorphous Sediment (None) /hpf Urine Mucus (None) /hpf Disposition Clinical Impression: Nausea & vomiting Disposition: HOME SELF-CARE Condition: Stable Instructions (If sedation given, give patient instructions): Acute Nausea and Vomiting (ED) Prescriptions: Ondansetron Odt [Zofran Odt] 4 mg PO Q8HR PRN #12 tab PRN Reason: Nausea Is patient prescribed a controlled substance at d/c from ED?: No Referrals: Dl Waggoner MD [Primary Care Provider] - 1-2 days
[2020-11-05 21:33] VITALS: BP 129/79; PULSE 72; TEMP 98.3
== END 2020-11-05 21:20 | disposition home or self-care (01) ==
LOC: EC 18:49
DX: R11.2 Nausea with vomiting, unspecified (principal); E11.51 Type 2 diabetes mellitus with diabetic peripheral angiopathy without gangrene; E78.5 Hyperlipidemia, unspecified; F32.9 Major depressive disorder, single episode, unspecified; F41.9 Anxiety disorder, unspecified; I10 Essential (primary) hypertension; K21.9 Gastro-esophageal reflux disease without esophagitis; M19.90 Unspecified osteoarthritis, unspecified site; G47.33 Obstructive sleep apnea (adult) (pediatric); Z99.81 Dependence on supplemental oxygen; Z79.01 Long term (current) use of anticoagulants; Z79.4 Long term (current) use of insulin; Z86.718 Personal history of other venous thrombosis and embolism
CPT/HCPCS: 36415; 80053; 81001; 83690; 83735; 85025; 85610; 85730; 96361; 96374; 99284

== ENCOUNTER → 2020-12-02 | Outpatient (CLI) | payer OTHER ==
--- NOTE | 2020-12-02 13:43 | CT ---
EXAMINATION TYPE: CT lower extremity RT wo con DATE OF EXAM: 12/02/2020 COMPARISON: CT 10/26/2020 HISTORY: 50-year-old male Charcot's joint, Rt ankle and foot TECHNIQUE: Contiguous axial scanning of the right foot without IV contrast. Coronal and sagittal kory nstructions performed. 3-D reconstructions generated on a dedicated independent workstation. CT DLP: 216.9 mGycm Automated exposure control for dose reduction was used. FINDINGS: Redemonstrated evidence of midfoot Charcot arthropathy with areas of subchondral sclerosis, disorgani zation, subchondral erosions, bony fragmentation and debris, and superior subluxations at the fourth- fifth TMT and naviculocuneiform articulations. There is secondary rocker-bottom foot deformity and a mid foot plantar ulcer which appears to have sl ightly filled in with some granulation tissue in the interval. Thickened soft tissue extends to conta ct the distal inferior corner of the cuboid bone. No discrete lytic destruction seen here. The degree of generalized soft tissue swelling has considerably improved from prior exam. No soft tissue air. No definite fluid collection along for noncontrast exam. IMPRESSION: 1. REDEMONSTRATED MIDFOOT CHARCOT ARTHROPATHY WITH SECONDARY ROCKER-BOTTOM FOOT DEFORMITY, BONY EROSI ONS, FRAGMENTATION, AND SUBLUXATIONS. OVERALL SIMILAR IN APPEARANCE. 2. HOWEVER, THERE HAS BEEN MARKED INTERVAL IMPROVEMENT IN THE GENERALIZED SOFT TISSUE SWELLING. MIDFO OT PLANTAR ULCER PERSISTS BUT SHOWS SOME FILL IN WITH GRANULATION TISSUE. UNDERLYING SOFT TISSUE THIC KENING EXTENDS DEEP TO CONTACT THE CUBOID BONE. NO OSSEOUS EROSIVE CHANGES. SUSPECT GRANULATION TISSU E GIVEN OVERALL IMPROVING DEGREE OF SOFT TISSUE SWELLING AND SLIGHT FILLING OF THE ULCER.
== END | disposition home or self-care (01) ==
LOC: RADCTMAIN 08:56
PROVIDERS: ATTEND Podiatrist
DX: M14.671 Charcot's joint, right ankle and foot (principal)

== ENCOUNTER 2021-01-31 09:19 | Inpatient (IN) | payer OTHER ==
--- NOTE | 2021-01-31 09:39 | ED ---
Fever HPI - General Chief Complaint: Fever Stated Complaint: Fever Time Seen by Provider: 01/31/21 09:27 Source: patient, RN notes reviewed Mode of arrival: ambulatory Limitations: no limitations - History of Present Illness Initial Comments: Patient is a 50-year-old male presented to the ED for fever. Patient states he was up with bariatric's today when they took his temperature and a fever was found, so they sent him down to the ED. Patient states that he is under care with wound care for right foot ulcer on plantar surface. Patient states he has not been feeling ill with no fever at home or chills, no nausea vomiting no changes in appetite. Patient does state he was constipated for the past week was finally able to have a bowel movement yesterday after taking a laxative. Patient is in no discomfort and states he had COVID-19 back in May which she was hospitalized last for a month, upon discharge he has received J[employer]erson & Jeferson vaccine. - Related Data Home Medications Medication Instructions Recorded Confirmed Latanoprost Ophth [Xalatan 0.005%] 1 drop BOTH EYES HS 01/23/14 01/31/21 Simvastatin [Zocor] 20 mg PO HS 01/23/14 01/31/21 Loratadine [Claritin] 10 mg PO DAILY 01/28/16 01/31/21 Pantoprazole Sodium [Protonix] 40 mg PO BID 01/28/16 01/31/21 metFORMIN HCL [Glucophage] 1,000 mg PO BID 01/28/16 01/31/21 Morphine Pain Pump 1 dose INTRATHECA CONTINUOUS 05/05/17 01/31/21 Ammonium Lactate Cream [Lac-Hydrin 1 applic TOPICAL DAILY 09/30/17 01/31/21 12% Cream] DULoxetine HCL [Cymbalta] 60 mg PO DAILY 09/30/17 01/31/21 Pregabalin [Lyrica] 200 mg PO BID 09/30/17 01/31/21 Cyclobenzaprine [Flexeril] 10 mg PO Q8H PRN 10/25/20 01/31/21 DULoxetine HCL [Cymbalta] 30 mg PO BID 10/25/20 01/31/21 Ferrous Sulfate [Iron (65 MG 325 mg PO BID 10/25/20 01/31/21 Elemental)] Fluticasone Propionate [Flovent 2 puff INHALATION RT-BID 10/25/20 01/31/21 Hfa 220 mcg] Furosemide [Lasix] 40 mg PO DAILY 10/25/20 01/31/21 Potassium Chloride [K-Tab ER] 20 meq PO DAILY 10/25/20 01/31/21 SUMAtriptan succinate [Imitrex] 50 mg PO DAILY PRN 10/25/20 01/31/21 Insulin Glargine,Hum.rec.anlog 50 unit SQ BID 01/31/21 01/31/21 [Lantus Solostar Pen] Insulin Lispro [humaLOG Kwikpen] 8 unit SQ AC-BRKFST 01/31/21 01/31/21 Insulin Lispro [humaLOG Kwikpen] 15 unit SQ AC-LUNCH 01/31/21 01/31/21 Insulin Lispro [humaLOG Kwikpen] 22 unit SQ AC-SUPPER 01/31/21 01/31/21 Warfarin [Coumadin] 10 mg PO HS 01/31/21 01/31/21 carBAMazepine [TEGretol] 100 mg PO Q12H 01/31/21 01/31/21 Previous Rx's Medication Instructions Recorded Ondansetron Odt [Zofran Odt] 4 mg PO Q8HR PRN #12 tab 11/05/20 Allergies Allergy/AdvReac Type Severity Reaction Status Date / Time adhesive Allergy Rash/Hives Verified 01/31/21 11:09 Review of Systems ROS Statement: Those systems with pertinent positive or pertinent negative responses have been documented in the HPI. ROS Other: All systems not noted in ROS Statement are negative. Past Medical History Past Medical History: Blood Disorder, Diabetes Mellitus, Deep Vein Thrombosis (DVT), GERD/Reflux, Hyperlipidemia, Hypertension, Musculoskeletal Disorder, Osteoarthritis (OA), Sleep Apnea/CPAP/BIPAP Additional Past Medical History / Comment(s): FACTOR 5 LEIDEN, HX OF (2) DVT'S LEFT LEG & (1) SUPERFICIAL CLOT,hiatal hernia, USES BIPAP MACHINE, ENVIRONMENTAL ALLERGIES, FATTY LIVER, DDD & BULDGING DISC WITH BACK PAIN WEARS BRACE occasionally,USES CANE, PARTIALLY BLIND LEFT EYE, STATES SCARRING WITH NARROWING OF ESOPHAGUS & Hx of DIFFICULTY SWALLOWING. MIGRAINES, PVD, gastroparesis History of Any Multi-Drug Resistant Organisms: None Reported Past Surgical History: Tonsillectomy Additional Past Surgical History / Comment(s): eye surgery as infant, EGD WITH DILATION X2 , uppp sx for sleep apnea, pain pump insertion Past Anesthesia/Blood Transfusion Reactions: Family History of Problems w/ Anesthesia Additional Past Anesthesia/Blood Transfusion Reaction / Comment(s): STATES "MOTHER CRASHES" "passes out"-with anesthesia,"needs to have a engineering inspector dose" Past Psychological History: Anxiety, Depression Smoking Status: Never smoker Past Alcohol Use History: None Reported Past Drug Use History: None Reported - Past Family History Father Family Medical History: Cancer Additional Family Medical History / Comment(s): BLADDER CANCER Mother Family Medical History: CVA/TIA, Diabetes Mellitus, Myocardial Infarction ([place]) General Exam Limitations: no limitations General appearance: alert, in no apparent distress Respiratory exam: Present: normal lung sounds bilaterally. Absent: respiratory distress, wheezes, rales, rhonchi, stridor Cardiovascular Exam: Present: regular rate, normal rhythm, normal heart sounds. Absent: systolic murmur, diastolic murmur, rubs, gallop, clicks GI/Abdominal exam: Present: soft, normal bowel sounds. Absent: distended, tenderness, guarding, rebound, rigid Left Ankle exam: Present: tenderness, swelling Foot/Toe exam: Present: tenderness, swelling, ecchymosis, deformity (charcot) Right Hip exam: Present: normal inspection Upper Leg exam: Present: normal inspection Knee exam: Present: normal inspection Lower Leg exam: Present: tenderness, swelling Ankle exam: Present: tenderness, swelling Foot/Toe exam: Present: tenderness, swelling, deformity (charcot, ulcer on planter surface) Neurological exam: Present: alert, oriented X3 Skin exam: Present: warm, dry, intact, normal color. Absent: rash Course Vital Signs 01/31/21 01/31/21 01/31/21 09:23 11:01 11:33 Temperature 100.6 F H 100.8 F H 99.0 F Pulse Rate 81 76 Respiratory 20 18 Rate Blood Pressure 124/71 108/69 O2 Sat by Pulse 95 95 Oximetry Medical Decision Making - Medical Decision Making Patient presented for a fever sent in from wound center. Patient is found to have a large ulcer on his foot which has been known. Patient will be admitted for IV antibiotics, pending blood cultures. - Lab Data Result diagrams: 01/31/21 10:08 01/31/21 10:08 Lab Results 01/31/21 01/31/21 01/31/21 Range/Units 10:08 10:08 10:08 WBC 7.2 (3.8-10.6) k/uL RBC 4.22 L (4.30-5.90) m/uL Hgb 11.2 L (13.0-17.5) gm/dL Hct 33.5 L (39.0-53.0) % MCV 79.4 L (80.0-100.0) fL MCH 26.5 (25.0-35.0) pg MCHC 33.3 (31.0-37.0) g/dL RDW 15.5 (11.5-15.5) % Plt Count 277 (150-450) k/uL MPV 8.0 Neutrophils % 73 % Lymphocytes % 10 % Monocytes % 11 % Eosinophils % 4 % Basophils % 1 % Neutrophils # 5.3 (1.3-7.7) k/uL Lymphocytes # 0.7 L (1.0-4.8) k/uL Monocytes # 0.8 (0-1.0) k/uL Eosinophils # 0.3 (0-0.7) k/uL Basophils # 0.1 (0-0.2) k/uL Sodium 135 L (137-145) mmol/L Potassium 4.1 (3.5-5.1) mmol/L Chloride 94 L (98-107) mmol/L Carbon Dioxide 33 H (22-30) mmol/L Anion Gap 8 mmol/L BUN 18 (9-20) mg/dL Creatinine 0.71 (0.66-1.25) mg/dL Est GFR (CKD-EPI)AfAm >90 (>60 ml/min/1.73 sqM) Est GFR (CKD-EPI)NonAf >90 (>60 ml/min/1.73 sqM) Glucose 200 H (74-99) mg/dL Plasma Lactic Acid Ger (0.7-2.0) mmol/L Calcium 8.8 (8.4-10.2) mg/dL Total Bilirubin 0.4 (0.2-1.3) mg/dL AST 29 (17-59) U/L ALT 26 (4-49) U/L Alkaline Phosphatase 139 H (38-126) U/L C-Reactive Protein 13.7 H (<1.0) mg/dL Total Protein 6.4 (6.3-8.2) g/dL Albumin 3.4 L (3.5-5.0) g/dL Urine Color Light Yellow Urine Appearance Clear (Clear) Urine pH 5.5 (5.0-8.0) Ur Specific [place] 1.009 (1.001-1.035) Urine Protein Negative (Negative) Urine Glucose (UA) Negative (Negative) Urine Ketones Negative (Negative) Urine Blood Negative (Negative) Urine Nitrite Negative (Negative) Urine Bilirubin Negative (Negative) Urine Urobilinogen <2.0 (<2.0) mg/dL Ur Leukocyte Esterase Negative (Negative) Coronavirus (PCR) (Not Detectd) 01/31/21 01/31/21 Range/Units 10:08 11:06 WBC (3.8-10.6) k/uL RBC (4.30-5.90) m/uL Hgb (13.0-17.5) gm/dL Hct (39.0-53.0) % MCV (80.0-100.0) fL MCH (25.0-35.0) pg MCHC (31.0-37.0) g/dL RDW (11.5-15.5) % Plt Count (150-450) k/uL MPV Neutrophils % % Lymphocytes % % Monocytes % % Eosinophils % % Basophils % % Neutrophils # (1.3-7.7) k/uL Lymphocytes # (1.0-4.8) k/uL Monocytes # (0-1.0) k/uL Eosinophils # (0-0.7) k/uL Basophils # (0-0.2) k/uL Sodium (137-145) mmol/L Potassium (3.5-5.1) mmol/L Chloride (98-107) mmol/L Carbon Dioxide (22-30) mmol/L Anion Gap mmol/L BUN (9-20) mg/dL Creatinine (0.66-1.25) mg/dL Est GFR (CKD-EPI)AfAm (>60 ml/min/1.73 sqM) Est GFR (CKD-EPI)NonAf (>60 ml/min/1.73 sqM) Glucose (74-99) mg/dL Plasma Lactic Acid Ger 1.5 (0.7-2.0) mmol/L Calcium (8.4-10.2) mg/dL Total Bilirubin (0.2-1.3) mg/dL AST (17-59) U/L ALT (4-49) U/L Alkaline Phosphatase (38-126) U/L C-Reactive Protein (<1.0) mg/dL Total Protein (6.3-8.2) g/dL Albumin (3.5-5.0) g/dL Urine Color Urine Appearance (Clear) Urine pH (5.0-8.0) Ur Specific [place] (1.001-1.035) Urine Protein (Negative) Urine Glucose (UA) (Negative) Urine Ketones (Negative) Urine Blood (Negative) Urine Nitrite (Negative) Urine Bilirubin (Negative) Urine Urobilinogen (<2.0) mg/dL Ur Leukocyte Esterase (Negative) Coronavirus (PCR) Not Detected (Not Detectd) Disposition Clinical Impression: Diabetic foot ulcer, Fever Disposition: ADMITTED IP TO THIS [facility] Referrals: Macarena Bellamy MD [Primary Care Provider] - 1-2 days
[2021-01-31] MEDS ORDERED: ACETAMINOPHEN TAB 325 MG TAB PO STA (10:00)
[2021-01-31 10:39] LABS: Basophils # (A) 0.1 k/uL (0-0.2); Basophils % (A) 1 %; Eosinophils # (A) 0.3 k/uL (0-0.7); Eosinophils % (A) 4 %; HCT 33.5 % (39.0-53.0); HGB 11.2 gm/dL (13.0-17.5); Lymphocytes # (A) 0.7 k/uL (1.0-4.8); Lymphocytes % (A) 10 %; MCH 26.5 pg (25.0-35.0); MCHC 33.3 g/dL (31.0-37.0); MCV 79.4 fL (80.0-100.0); Monocytes # (A) 0.8 k/uL (0-1.0); Monocytes % (A) 11 %; Neutrophils # (A) 5.3 k/uL (1.3-7.7); Neutrophils % (A) 73 %; Platelet Count 277 k/uL (150-450); RBC 4.22 m/uL (4.30-5.90); RDW 15.5 % (11.5-15.5); WBC 7.2 k/uL (3.8-10.6)
[2021-01-31 10:44] LABS: Appearance,Urine Clear (Clear); Bilirubin,Urine Negative (Negative); Blood,Urine Negative (Negative); Color,Urine Light Yellow; Glucose,Urine (UA) Negative (Negative); Ketones,Urine Negative (Negative); Leukocyte Esterase,Urine Negative (Negative); Nitrite,Urine Negative (Negative); PH, Urine 5.5 (5.0-8.0); Protein,Urine Negative (Negative); Specific Gravity,Urine 1.009 (1.001-1.035); Urobilinogen,Urine <2.0 mg/dL (<2.0)
[2021-01-31 10:54] LABS: ALT 26 U/L (4-49); AST 29 U/L (17-59); African American GFR (CKD) >90 (>60 ml/min/1.73 sqM); Albumin 3.4 g/dL (3.5-5.0); Alkaline Phosphatase 139 U/L (38-126); Anion Gap 8 mmol/L; Blood Urea Nitrogen 18 mg/dL (9-20); Calcium 8.8 mg/dL (8.4-10.2); Carbon Dioxide 33 mmol/L (22-30); Chloride 94 mmol/L (98-107); Glucose 200 mg/dL (74-99); Non-African American GFR(CKD) >90 (>60 ml/min/1.73 sqM); Potassium 4.1 mmol/L (3.5-5.1); Sodium 135 mmol/L (137-145); Total Bilirubin 0.4 mg/dL (0.2-1.3); Total Protein 6.4 g/dL (6.3-8.2)
--- NOTE | 2021-01-31 10:58 | XR ---
Right foot HISTORY: Pain, plantar ulcer 3 views of the right foot correlated to prior exam 10/25/2020, CT 10/26/2020 Bone mineralization is markedly reduced and may limit sensitivity. There are arthropathy changes invo lving the tarsometatarsal joints, intertarsal joints, marginal erosion, subchondral cyst formation is noted similar to prior CT and plain film. Abnormal alignment is present at the intertarsal row due t o destructive changes, fragmentation. No evident fracture or dislocation. There is soft tissue swelli ng present. Atherosclerotic arterial calcifications are present. There is a plantar calcaneal spur pr esent. IMPRESSION: Findings are consistent with Charcot joint, neuropathic foot
[2021-01-31 11:07] LABS: C Reactive Protein 13.7 mg/dL (<1.0)
[2021-01-31] MEDS ORDERED: VANCOMYCIN IV PER PHARMACY 1 EACH MISC MISCELLANE PRN (12:25)
[2021-01-31] MEDS ORDERED: PIPERACILLIN-TAZOBACTAM 3.375 GM in SODIUM CHLORIDE 0.9% 100 ML IVPB STA (12:25)
[2021-01-31] MEDS ORDERED: ACETAMINOPHEN TAB 325 MG TAB PO PRN (12:26)
[2021-01-31] MEDS ORDERED: NALOXONE 0.4 MG/ML 1 ML VIAL IV PRN (12:26)
[2021-01-31] MEDS ORDERED: ONDANSETRON 4 MG/2 ML VIAL IVP PRN (12:26)
[2021-01-31] MEDS ORDERED: VANCOMYCIN 2,000 MG in SODIUM CHLORIDE 0.9% 500 ML 500 ML IVPB ONE (12:45)
[2021-01-31 13:24] LABS: Glucose,Whole Blood 101 mg/dL (75-99)
[2021-01-31] MEDS ORDERED: SUMAtriptan succinate 50 MG TAB PO PRN (20:42)
[2021-01-31] MEDS ORDERED: CYCLOBENZAPRINE 10 MG TAB PO PRN (20:42)
--- NOTE | 2021-01-31 21:17 | HP ---
HISTORY AND PHYSICAL DATE OF SERVICE: 01/31/2021. CHIEF COMPLAINT: Fever. HISTORY OF PRESENT ILLNESS: This 50-year-old gentleman with a past medical history of multiple medical problems, including diabetes mellitus, DVT, history of GERD, hypertension, hyperlipidemia, history of DJD, history of sleep apnea, and factor V Leiden deficiency, had significant ulceration on the right foot. The patient apparently had planned to have arthrodesis and complicated procedure in [facility] on February 18, but the patient was receiving wound care with hyperbaric oxygen for the right foot ulcer. Today the patient is running a fever and the patient was sent to [facility] ER and was admitted for further evaluation. White count was found to be 7.2. The previous cultures showed Pseudomonas and MSSA. There is no history of any headache, loss of consciousness or seizures at this time. PAST MEDICAL HISTORY: History of diabetes mellitus, history of DVT, history of GERD, hypertension, hyperlipidemia, history of DJD, history of sleep apnea. MEDICATIONS: Home medications are Glucophage, Tegretol, Coumadin, Zocor, Imitrex, Lyrica, K- Tab ER, Protonix, Zofran, Humalog, Lasix, Cymbalta. Doses are reviewed. ALLERGIES: ADHESIVES. FAMILY HISTORY: History of bladder cancer. SOCIAL HISTORY: Previous history of smoking. No history of alcohol intake. REVIEW OF SYSTEMS: ENT: No diminished hearing. No diminished vision. CARDIOVASCULAR SYSTEM: No angina, palpitations. RESPIRATORY SYSTEM: No cough, hemoptysis. GI: No nausea, vomiting, diarrhea. : No dysuria. NERVOUS SYSTEM: No numbness, weakness. ALLERGY/IMMUNOLOGY: No asthma or hay fever. MUSCULOSKELETAL: As mentioned earlier. HEMATOLOGY/ONCOLOGY: No history of anemia. ENDOCRINE: As mentioned earlier. CONSTITUTIONAL: As mentioned earlier. DERMATOLOGY: Negative. RHEUMATOLOGY: Negative. PSYCHIATRY: As mentioned earlier. PHYSICAL EXAMINATION: Patient alert and oriented x3. Pulse is 76, blood pressure 108/69, respiration 18, temperature 99 degrees. T-max 100.8. Pulse ox 94% on 2 L. HEENT: Conjunctivae normal. NECK: No jugular venous distention. CARDIOVASCULAR: S1, S2 muffled. RESPIRATION: Breath sounds diminished at the bases. No rhonchi. No crackles. ABDOMEN: Soft, obese, non-tender. LEGS: Bilateral leg edema, right more than the left. Right blisters on the lower leg as well as significant foot deformity, Charcot foot, as well as deep ulcerations in the right plantar foot also present. NERVOUS SYSTEM: No focal motor deficit. Some minimal sensory impairment. SKIN: As mentioned earlier. JOINTS: No active deforming arthropathy. Charcot foot on the right. LAB STUDIES: WBC 7.2, hemoglobin 11.2, sodium n. Other labs are noted. ASSESSMENT: 1. Right foot diabetic ulcer wound as well as possible cellulitis and sepsis, present on admission, with failure of outpatient treatment. 2. Right Charcot foot. 3. Anemia, microcytic anemia of chronic disease. 4. Hyponatremia. 5. Diabetes mellitus, type 2. 6. Elevated C-reactive protein at 13. 7. History of deep vein thrombosis. 8. History of gastroesophageal reflux disease. 9. Hypertension. 10.Hyperlipidemia. 11.History of degenerative joint disease. 12.History of sleep apnea. 13.History of factor V Leiden deficiency. 14.History of environmental allergies. 15.History of back pain, degenerative joint disease. 16.History of tonsillectomy. 17.History of anxiety, depression. 18.Obesity with body mass index of 47.8. 19.FULL CODE. RECOMMENDATIONS AND DISCUSSION: In this 50-year-old gentleman who presented with multiple complex medical issues, we will monitor the patient closely, continue the current medications, continue with symptomatic treatment. Will initiate broad-spectrum IV antibiotics, Zosyn and vancomycin. Infectious disease evaluation. I would also recommend resuming the home medications. Guarded prognosis because of complex medical issues. Further recommendations to follow. MMODL / IJN: [id number] / [facility] HEALTHRoxanne
[2021-01-31 22:16] LABS: Glucose,Whole Blood 144 mg/dL (75-99)
[2021-01-31] MEDS: PREGABALIN 100 MG CAP PO SCH (22:57)
[2021-01-31] MEDS: DULoxetine HCL 30 MG CAPSULE.DR PO SCH (22:57)
[2021-01-31] MEDS: metFORMIN 500 MG TAB PO SCH (22:57)
[2021-01-31] MEDS: LATANOPROST 0.005% OPHTH DROPS 2.5 ML BTL BOTH EYES SCH (22:57)
[2021-01-31] MEDS: VANCOMYCIN 2,000 MG in SODIUM CHLORIDE 0.9% 500 ML 500 ML IVPB SCH (22:57)
[2021-01-31] MEDS: ATORVASTATIN 10 MG TAB PO SCH (22:58)
[2021-01-31] MEDS: FERROUS SULFATE 325 MG TAB PO SCH (22:58)
[2021-01-31] MEDS: HYDROcodone/APAP 5-325MG 1 EACH TAB PO PRN (22:58)
[2021-01-31] MEDS: PANTOPRAZOLE 40 MG TABLET PO SCH (22:58)
[2021-01-31] MEDS: INSULIN DETEMIR (LEVEMIR) 100 UNIT/ML SYR SQ SCH (22:59)
[2021-02-01] MEDS: PIPERACILLIN-TAZOBACTAM 3.375 GM in SODIUM CHLORIDE 0.9% 100 ML IVPB SCH ×2 (05:41→13:08)
[2021-02-01] MEDS: VANCOMYCIN 2,000 MG in SODIUM CHLORIDE 0.9% 500 ML 500 ML IVPB SCH ×2 (05:42→13:09)
[2021-02-01] MEDS: NON FORMULARY DRUG (Morphine Pain Pump 1 DOSE) MISCELLANE SCH (05:44)
[2021-02-01 07:26] LABS: Glucose,Whole Blood 69 mg/dL (75-99)
[2021-02-01] MEDS: INSULIN ASPART (NovoLOG) 100 UNIT/ML VIAL SQ SCH ×3 (07:40→17:38)
[2021-02-01 07:50] LABS: Glucose,Whole Blood 74 mg/dL (75-99)
[2021-02-01 08:11] LABS: Basophils % (A) 1 %; Eosinophils # (A) 0.4 k/uL (0-0.7); Eosinophils % (A) 6 %; HCT 33.9 % (39.0-53.0); Lymphocytes # (A) 0.9 k/uL (1.0-4.8); Lymphocytes % (A) 13 %; MCH 26.6 pg (25.0-35.0); MCHC 32.5 g/dL (31.0-37.0); MCV 81.9 fL (80.0-100.0); Monocytes # (A) 0.6 k/uL (0-1.0); Monocytes % (A) 9 %; Neutrophils # (A) 4.7 k/uL (1.3-7.7); Neutrophils % (A) 69 %; Platelet Count 263 k/uL (150-450); RBC 4.14 m/uL (4.30-5.90); RDW 15.4 % (11.5-15.5); WBC 6.8 k/uL (3.8-10.6)
[2021-02-01 08:16] LABS: INR 2.9 (<1.2); Prothrombin Time 28.4 sec (9.0-12.0)
[2021-02-01] MEDS: POTASSIUM CHLORIDE ER 20 MEQ TAB.ER PO SCH (08:22)
[2021-02-01] MEDS: FUROSEMIDE 40 MG TAB PO SCH (08:22)
[2021-02-01] MEDS: PREGABALIN 100 MG CAP PO SCH ×2 (08:22→21:42)
[2021-02-01] MEDS: PANTOPRAZOLE 40 MG TABLET PO SCH ×2 (08:22→17:38)
[2021-02-01] MEDS: FERROUS SULFATE 325 MG TAB PO SCH ×2 (08:22→21:42)
[2021-02-01] MEDS: DULoxetine HCL 60 MG CAPSULE.DR PO SCH (08:22)
[2021-02-01] MEDS: LORATADINE 10 MG TAB PO SCH (08:22)
[2021-02-01] MEDS: INSULIN DETEMIR (LEVEMIR) 100 UNIT/ML SYR SQ SCH ×2 (08:23→21:43)
[2021-02-01] MEDS: DULoxetine HCL 30 MG CAPSULE.DR PO SCH ×2 (08:23→21:42)
[2021-02-01] MEDS: metFORMIN 500 MG TAB PO SCH ×2 (08:24→21:43)
[2021-02-01 09:07] LABS: African American GFR (CKD) >90 (>60 ml/min/1.73 sqM); Anion Gap 6 mmol/L; Blood Urea Nitrogen 16 mg/dL (9-20); Calcium 8.9 mg/dL (8.4-10.2); Carbon Dioxide 34 mmol/L (22-30); Chloride 97 mmol/L (98-107); Glucose 67 mg/dL (74-99); Non-African American GFR(CKD) >90 (>60 ml/min/1.73 sqM); Potassium 4.1 mmol/L (3.5-5.1); Sodium 137 mmol/L (137-145)
[2021-02-01] MEDS: FLUTICASONE 220 MCG INHALER INHALATION SCH ×3 (09:42→21:41)
[2021-02-01 11:38] LABS: Glucose,Whole Blood 149 mg/dL (75-99)
[2021-02-01 12:28] VITALS: BMI 47.7
--- NOTE | 2021-02-01 14:30 | P.PN ---
Subjective Progress Note Date: 02/01/21 This is a 50-year-old gentleman past medical history of diabetes mellitus, DVT, history of GERD, hypertension, hyperlipidemia, history of DJD, obstructive sleep apnea, factor V Leyden deficiency. He presented to Hospital significant ulceration of the right foot. Patient had planned to have an arthrodesis and a complicated procedure at [facility] on February 18 patient was receiving wound care and hyperbaric oxygen for the right foot ulcer. He has been running a fever and was sent for urine hospital ER and was admitted for further evaluation. Lichen was 7.2 on admission, previous cultures are growing pseudomonas and MSSA, there is no history of any headache, loss of consciousness or seizures at this time. 01/29/2021 REVIEW OF SYSTEMS: ENT: No diminished vision or hearing. CARDIOVASCULAR: Mentioned earlier. RESPIRATORY: As mentioned earlier. GI: No nauscea, vomiting or diarrhea. : No dysuria or retention. NERVOUS SYSTEM: No numbness or weakness. ALLERGY/IMMUNOLOGY: No asthma or hay fever. MUSCULOSKELETAL: Right foot wound HEENT: Head is atraumatic, normocephalic. Pupils equal, round. Sclerae is anicteric. NECK: Supple. No JVD. No lymphadenopathy. No thyromegaly. LUNGS: Clear to auscultation. No wheezes or rhonchi. HEART: Regular rate and rhythm. No murmur. ABDOMEN: Soft. Bowel sounds are present. No masses. EXTREMITIES: 2+ edema, right lower extremity wrapped and dressed NEUROLOGICAL: Patient is awake, alert and oriented x3. Cranial nerves 2 through 12 are grossly intact. Right foot diabetic ulcer, possible cellulitis and sepsis, POA Right Charcot foot Anemia, possibly anemia of chronic disease Hyponatremia Type 2 diabetes mellitus Elevated CRP History of DVT History of GERD Hypertension Hyperlipidemia History of degenerative joint disease History of obstructive sleep apnea History of factor V Leyden deficiency DEXA and history of environmental ALLERGIES History of back pain History of tonsillectomy History of anxiety and depression History of morbid obesity Patient is continued on antimicrobials, currently receiving cefepime, wound cultures are pending we'll follow up with the results. Infectious disease has been consulted along with podiatry. The right side is currently dressed and wrapped. Patient is not having significant pain at this time. Continue with symptomatic treatment, local wound care, antimicrobials. We'll continue to follow. Prognosis guarded. Objective - Vital Signs Vital signs: Vital Signs Temp 99.2 F 02/01/21 12:19 Pulse 73 02/01/21 12:19 Resp 19 02/01/21 12:19 BP 135/74 02/01/21 12:19 Pulse Ox 96 02/01/21 12:19 Intake & Output 01/31/21 02/01/21 02/01/21 18:59 06:59 18:59 Intake Total 100 Balance 100 Weight 134.263 kg 134.263 kg 134.263 kg Intake: Oral 100 Other: # Voids 3 - Labs CBC & Chem 7: 02/01/21 07:26 02/01/21 07:26 Labs: Abnormal Lab Results - Last 24 Hours (Table) 01/31/21 02/01/21 02/01/21 Range/Units 21:55 07:24 07:26 RBC (4.30-5.90) m/uL Hgb (13.0-17.5) gm/dL Hct (39.0-53.0) % Lymphocytes # (1.0-4.8) k/uL PT (9.0-12.0) sec INR (<1.2) Chloride 97 L (98-107) mmol/L Carbon Dioxide 34 H (22-30) mmol/L Glucose 67 L (74-99) mg/dL POC Glucose (mg/dL) 144 H 69 L (75-99) mg/dL 02/01/21 02/01/21 02/01/21 Range/Units 07:26 07:26 07:44 RBC 4.14 L (4.30-5.90) m/uL Hgb 11.0 L (13.0-17.5) gm/dL Hct 33.9 L (39.0-53.0) % Lymphocytes # 0.9 L (1.0-4.8) k/uL PT 28.4 H (9.0-12.0) sec INR 2.9 H (<1.2) Chloride (98-107) mmol/L Carbon Dioxide (22-30) mmol/L Glucose (74-99) mg/dL POC Glucose (mg/dL) 74 L (75-99) mg/dL 02/01/21 Range/Units 11:26 RBC (4.30-5.90) m/uL Hgb (13.0-17.5) gm/dL Hct (39.0-53.0) % Lymphocytes # (1.0-4.8) k/uL PT (9.0-12.0) sec INR (<1.2) Chloride (98-107) mmol/L Carbon Dioxide (22-30) mmol/L Glucose (74-99) mg/dL POC Glucose (mg/dL) 149 H (75-99) mg/dL Microbiology - Last 24 Hours (Table) 01/31/21 23:00 Anaerobic Culture - Preliminary Foot - Right 01/31/21 23:00 Wound Culture - Preliminary Foot - Right
--- NOTE | 2021-02-01 16:03 | US ---
EXAMINATION TYPE: US venous doppler duplex LE DATE OF EXAM: 02/01/2021 3:27 PM COMPARISON: US CLINICAL HISTORY: swelling r/o DVT. Hx of left leg DVT 2018 and is on blood thinners; in hospital for rt foot ulcer. Patient is morbidly obese. SIDE PERFORMED: Bilateral TECHNIQUE: The lower extremity deep venous system is examined utilizing real time linear array sonog errol with graded compression, doppler sonography and color-flow sonography. VESSELS IMAGED: Common Femoral Vein Deep Femoral Vein Greater Saphenous Vein * Femoral Vein Popliteal Vein Small Saphenous Vein * Proximal Calf Veins (* superficial vessels) Right Leg: Negative for DVT Left Leg: Negative for DVT IMPRESSION: No evidence of deep vein thrombosis in the right and left leg.
[2021-02-01] MEDS: CEFEPIME 2 GM in SODIUM CHLORIDE 0.9% 100 ML IVPB SCH (16:46)
[2021-02-01 17:14] LABS: Glucose,Whole Blood 146 mg/dL (75-99)
[2021-02-01] MEDS ORDERED: WARFARIN 10 MG TAB PO ONE (18:00)
[2021-02-01] MEDS ORDERED: VANCOMYCIN TROUGH DUE 1 EACH MISC MISCELLANE ONE (20:00)
[2021-02-01 20:43] LABS: Glucose,Whole Blood 189 mg/dL (75-99)
[2021-02-01] MEDS: ATORVASTATIN 10 MG TAB PO SCH (21:42)
[2021-02-01] MEDS: LATANOPROST 0.005% OPHTH DROPS 2.5 ML BTL BOTH EYES SCH (21:43)
[2021-02-01] MEDS ORDERED: PIPERACILLIN-TAZOBACTAM 3.375 GM in SODIUM CHLORIDE 0.9% 100 ML IVPB SCH (22:00)
[2021-02-02] MEDS: CEFEPIME 2 GM in SODIUM CHLORIDE 0.9% 100 ML IVPB SCH ×4 (00:32→23:15)
[2021-02-02] MEDS: NON FORMULARY DRUG (Morphine Pain Pump 1 DOSE) MISCELLANE SCH ×2 (01:17→20:40)
[2021-02-02 07:06] LABS: Glucose,Whole Blood 107 mg/dL (75-99)
[2021-02-02] MEDS: INSULIN ASPART (NovoLOG) 100 UNIT/ML VIAL SQ SCH ×3 (08:24→17:56)
[2021-02-02] MEDS: PANTOPRAZOLE 40 MG TABLET PO SCH ×2 (08:25→17:56)
[2021-02-02] MEDS: INSULIN DETEMIR (LEVEMIR) 100 UNIT/ML SYR SQ SCH ×2 (08:26→20:39)
[2021-02-02] MEDS: DULoxetine HCL 60 MG CAPSULE.DR PO SCH (08:26)
[2021-02-02] MEDS: metFORMIN 500 MG TAB PO SCH ×2 (08:26→20:37)
[2021-02-02] MEDS: FERROUS SULFATE 325 MG TAB PO SCH ×2 (08:26→20:37)
[2021-02-02] MEDS: FUROSEMIDE 40 MG TAB PO SCH (08:26)
[2021-02-02] MEDS: LORATADINE 10 MG TAB PO SCH (08:26)
[2021-02-02] MEDS: POTASSIUM CHLORIDE ER 20 MEQ TAB.ER PO SCH (08:27)
[2021-02-02] MEDS: PREGABALIN 100 MG CAP PO SCH ×2 (08:27→20:37)
[2021-02-02] MEDS: DULoxetine HCL 30 MG CAPSULE.DR PO SCH ×2 (08:33→20:37)
[2021-02-02] MEDS: HYDROcodone/APAP 5-325MG 1 EACH TAB PO PRN (08:33)
[2021-02-02] MEDS: FLUTICASONE 220 MCG INHALER INHALATION SCH ×2 (08:43→19:16)
[2021-02-02 08:44] LABS: African American GFR (CKD) >90 (>60 ml/min/1.73 sqM); Non-African American GFR(CKD) >90 (>60 ml/min/1.73 sqM)
[2021-02-02 09:02] LABS: INR 2.3 (<1.2); Prothrombin Time 22.7 sec (9.0-12.0)
--- NOTE | 2021-02-02 11:20 | P.CONS ---
History of Present Illness - Reason for Consult Consult date: 02/01/21 Fever Requesting physician: Awilda Howard - Chief Complaint Fever x 1 day - History of Present Illness History of present illness : Patient is 58-year-old male with a past medical history taken for right Charcot deformity in this patient who was recently treated for an episode of right foot plantar wound infection and concern for possible osteomyelitis culture positive for Pseudomonas aeruginosa and anaerobes and the patient completed 6-week course of IV cefepime and Flagyl patient currently undergoing treatment at [facility] under Dr. Coleman local wound care has been Flavia and the patient has been started on hyperbaric oxygen therapy patient was noticed to have a fever yesterday when he went for his hyperbaric oxygen treatment has the patient was sent to the ER for further evaluation patient denies having any fever or chills at home before he went for the hyperbaric oxygen treatment, the patient denies having any URI symptoms, no chest pain shortness of breath no cough no nausea no vomiting no abdominal pain no diarrhea mention the wound is healing well with no worsening or any foul-smelling drainage noticed to have more swelling and some redness to the right leg but no significant pain with the symptom the patient has been evaluated by the ER physician on arrival to the ER the patient did have a fever 100.6 200.8 form height patient did have a normal white count with lymphopenia INR is 2.9 creatinine was 0.71 CRP 13.7 urine was negative dawkins PCR was negative patient did have blood cultures obtained and cultures from the wound patient did have a x-rays of the foot consistent with Charcot joint neuropathic foot patient was started on vancomycin and Zosyn infectious disease was consulted for further management of antibiotic therapy Review of system: CONSTITUTIONAL: Positive for weakness along with the fever. EYES: No complaint. ENT: No complaint. RESPIRATORY: No complaint. CARDIOVASCULAR: No complaint. GENITOURINARY: No complaint. GASTROINTESTINAL: No complaint. MUSCULOSKELETAL: As per history of present illness INTEGUMENTARY: As per history of present illness. PSYCHOLOGIC: No complaint. ENDOCRINE: No complaint. NEUROLOGIC: No complaint. Past medical history : Reviewed, documented below Past surgical history : Reviewed, documented below Social history: Reviewed, documented below Medications: Reviewed, as documented below EXAMINATION: Vital sigans= Reviewed and documented below GENERAL DESCRIPTION: Middle-aged male lying in bed, no distress. No tachypnea or accessory muscle of respiration use. HEENT: Shows Pallor , no scleral icterus. Oral mucous membrane is dry. NECK: Trachea central, no thyromegaly. LUNGS: Unlabored breathing. Clear to auscultation anteriorly. No wheeze or crackle. HEART: S1, S2, regular rate and rhythm. ABDOMEN: Soft, no tenderness , guarding or rigidity EXTREMITIES: Right foot plantar wound base looks clean with no purulent drainage he did have a swelling and warmth to the right leg. SKIN: No rash, no masses palpable. NEUROLOGICAL: The patient is awake, alert, oriented x3, mood and affect normal. LABS AND RADIOLOGY: Reviewed results see below Assessment : Patient presented to hospital with fever source is likely right lower extremity cellulitis with the source of injury could be the right foot ulcer however the ulcer itself does not look deep or any purulent drainage however his right leg is warm to touch and mildly red and swollen, previously h as grown Pseudomonas will likely to go for Pseudomonas and gram-positive skin khoi Plan: 1-discontinue vancomycin and Zosyn decrease risk of nephrotoxicity 2-cefepime 2 g every 8 hour 3-check bilateral lower extremity Doppler as the family is really concerned about a DVT with his factor V Leiden deficiency clinic suspicious low though We will follow on clinical condition and cultures to further adjust medication if needed Thank you for this consultation we will follow the patient along with you Past Medical History Past Medical History: Blood Disorder, Diabetes Mellitus, Deep Vein Thrombosis (DVT), GERD/Reflux, Hyperlipidemia, Hypertension, Musculoskeletal Disorder, Osteoarthritis (OA), Sleep Apnea/CPAP/BIPAP Additional Past Medical History / Comment(s): FACTOR 5 LEIDEN, HX OF (2) DVT'S LEFT LEG & (1) SUPERFICIAL CLOT,hiatal hernia, USES BIPAP MACHINE trilogy machine at night, ENVIRONMENTAL ALLERGIES, FATTY LIVER, DDD & BULDGING DISC WITH BACK PAIN, pain pump implant,CANE, PARTIALLY BLIND LEFT EYE, STATES SCARRING W ITH NARROWING OF ESOPHAGUS & Hx of DIFFICULTY SWALLOWING, currently no difficulty swallowing. MIGRAINES, PVD, gastroparesis, charcot of right foot really bad, charcot of left foot less severe. right foot ulcer started in August 2020 History of Any Multi-Drug Resistant Organisms: None Reported Past Surgical History: Tonsillectomy Additional Past Surgical History / Comment(s): eye surgery as infant, EGD WITH DILATION X2 , uppp sx for sleep apnea, pain pump insertion Past Anesthesia/Blood Transfusion Reactions: Family History of Problems w/ Anesthesia Additional Past Anesthesia/Blood Transfusion Reaction / Comm: STATES "MOTHER CRASHES" "passes out"-with anesthesia,"needs to have a shock absorber installer dose" Past Psychological History: Anxiety, Depression Additional Psychological History / Comment(s): . Smoking Status: Never smoker Past Alcohol Use History: None Reported Past Drug Use History: None Reported - Past Family History Father Family Medical History: Cancer Additional Family Medical History / Comment(s): BLADDER CANCER Mother Family Medical History: CVA/TIA, Diabetes Mellitus, Myocardial Infarction ([place]) Medications and Allergies Home Medications Medication Instructions Recorded Confirmed Type Latanoprost Ophth [Xalatan 0.005%] 1 drop BOTH EYES HS 01/23/14 01/31/21 History Simvastatin [Zocor] 20 mg PO HS 01/23/14 01/31/21 History Loratadine [Claritin] 10 mg PO DAILY 01/28/16 01/31/21 History Pantoprazole Sodium [Protonix] 40 mg PO BID 01/28/16 01/31/21 History metFORMIN HCL [Glucophage] 1,000 mg PO BID 01/28/16 01/31/21 History Morphine Pain Pump 1 dose INTRATHECA CONTINUOUS 05/05/17 01/31/21 History Ammonium Lactate Cream [Lac-Hydrin 1 applic TOPICAL DAILY 09/30/17 01/31/21 History 12% Cream] DULoxetine HCL [Cymbalta] 60 mg PO DAILY 09/30/17 01/31/21 History Pregabalin [Lyrica] 200 mg PO BID 09/30/17 01/31/21 History Cyclobenzaprine [Flexeril] 10 mg PO Q8H PRN 10/25/20 01/31/21 History DULoxetine HCL [Cymbalta] 30 mg PO BID 10/25/20 01/31/21 History Ferrous Sulfate [Iron (65 MG 325 mg PO BID 10/25/20 01/31/21 History Elemental)] Fluticasone Propionate [Flovent 2 puff INHALATION RT-BID 10/25/20 01/31/21 History Hfa 220 mcg] Furosemide [Lasix] 40 mg PO DAILY 10/25/20 01/31/21 History Potassium Chloride [K-Tab ER] 20 meq PO DAILY 10/25/20 01/31/21 History SUMAtriptan succinate [Imitrex] 50 mg PO DAILY PRN 10/25/20 01/31/21 History Ondansetron Odt [Zofran Odt] 4 mg PO Q8HR PRN #12 tab 11/05/20 01/31/21 Rx Insulin Glargine,Hum.rec.anlog 50 unit SQ BID 01/31/21 01/31/21 History [Lantus Solostar Pen] Insulin Lispro [humaLOG Kwikpen] 8 unit SQ AC-BRKFST 01/31/21 01/31/21 History Insulin Lispro [humaLOG Kwikpen] 15 unit SQ AC-LUNCH 01/31/21 01/31/21 History Insulin Lispro [humaLOG Kwikpen] 22 unit SQ AC-SUPPER 01/31/21 01/31/21 History Warfarin [Coumadin] 10 mg PO HS 01/31/21 01/31/21 History carBAMazepine [TEGretol] 100 mg PO Q12H 01/31/21 01/31/21 History Allergies Allergy/AdvReac Type Severity Reaction Status Date / Time adhesive Allergy Rash/Hives Verified 01/31/21 11:09 Physical Exam Vitals: Vital Signs Temp Pulse Pulse Resp BP BP Pulse Ox 02/01/21 12:19 99.2 F 73 19 135/74 96 02/01/21 04:45 98.6 F 75 20 134/79 95 01/31/21 21:50 99.3 F 75 20 159/88 94 L 01/31/21 20:53 99.0 F 78 18 110/72 95 01/31/21 14:00 98.1 F Intake and Output 01/31/21 02/01/21 02/01/21 22:59 06:59 14:59 Intake Total 100 Balance 100 Intake: Oral 100 Other: # Voids 3 Weight 134.263 kg 134.263 kg Results CBC & Chem 7: 02/01/21 07:26 02/02/21 08:03 Labs: Abnormal Lab Results - Last 24 Hours (Table) 01/31/21 01/31/21 02/01/21 Range/Units 13:22 21:55 07:24 RBC (4.30-5.90) m/uL Hgb (13.0-17.5) gm/dL Hct (39.0-53.0) % Lymphocytes # (1.0-4.8) k/uL PT (9.0-12.0) sec INR (<1.2) Chloride (98-107) mmol/L Carbon Dioxide (22-30) mmol/L Glucose (74-99) mg/dL POC Glucose (mg/dL) 101 H 144 H 69 L (75-99) mg/dL 02/01/21 02/01/21 02/01/21 Range/Units 07:26 07:26 07:26 RBC 4.14 L (4.30-5.90) m/uL Hgb 11.0 L (13.0-17.5) gm/dL Hct 33.9 L (39.0-53.0) % Lymphocytes # 0.9 L (1.0-4.8) k/uL PT 28.4 H (9.0-12.0) sec INR 2.9 H (<1.2) Chloride 97 L (98-107) mmol/L Carbon Dioxide 34 H (22-30) mmol/L Glucose 67 L (74-99) mg/dL POC Glucose (mg/dL) (75-99) mg/dL 02/01/21 02/01/21 Range/Units 07:44 11:26 RBC (4.30-5.90) m/uL Hgb (13.0-17.5) gm/dL Hct (39.0-53.0) % Lymphocytes # (1.0-4.8) k/uL PT (9.0-12.0) sec INR (<1.2) Chloride (98-107) mmol/L Carbon Dioxide (22-30) mmol/L Glucose (74-99) mg/dL POC Glucose (mg/dL) 74 L 149 H (75-99) mg/dL
[2021-02-02 11:39] LABS: Glucose,Whole Blood 143 mg/dL (75-99)
--- NOTE | 2021-02-02 11:41 | P.CONS ---
History of Present Illness - Reason for Consult Consult date: 02/02/21 wound care - History of Present Illness This is a 50-year-old patient known to the wound care center who sees Dr. Coleman. On Wednesday he was seen and wound care for hyperbaric oxygen therapy however he had a elevated temperature of 100.4 and was instructed to go to the emergency room for evaluation. Patient has a nonhealing ulceration to the right plantar foot that he is scheduled to have a surgical intervention for Charcot foot at the end of the month. Original cause of wound was Not Known. The wound is currently classified as a Grade 3 wound with etiology of Diabetic Wound/Ulcer of the Lower Extremity and is located on the Right,Plantar Foot. The wound measures 2.8cm length x 2.4cm width x 1cm depth; 5.278cm^2 area and 5.278cm^3 volume. There is Fat Layer (Subcutaneous Tissue) and fascia exposed. There is no tunneling or undermining noted. There is a large amount of serosanguineous drainage noted. The wound margin is distinct with the outline attached to the wound base. There is large (67-100%) red granulation within the wound bed. There is a small (1-33%) amount of necrotic tissue within the wound bed including Adherent Slough. The periwound skin appearance had no abnormalities noted for moisture. The periwound skin appearance had no abnormalities noted for color. The periwound skin appearance exhibited: Callus. Periwound temperature was noted as No Abnormality. The periwound has tenderness on palpation. Review Of Systems: Constitutional: No fever, no chills, no night sweats. No weight change. No weakness, fatigue or lethargy. No daytime sleepiness. Integumentary:reports wounds, no lesions. No rash or pruritus. No unusual bruising. No change in hair or nails. Physical exam: General Appearance: Alert, cooperative, no distress, appears stated age. Skin: See HPI all other Skin color, texture, tugor normal, no rashes or lesions. Neurologic: Alert oriented x3 Assessment: 1. 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 Charcot joint right ankle and foot 3. Type 2 diabetes with foot ulcer Plan: 1. Right plantar foot: Apply collagen silver, family moist gauze, dry gauze roll gauze secured with paper tape. Change Wednesday. Once patient is discharged she'll return to the wound care center to continue his hyperbaric oxygen therapy treatment. And weekly wound visit on Wednesday after HBO. Thank you for the consultation any questions please contact the wound care center DNP note has been reviewed and discussed with Dr. Carrillo and the impression and plan of care has been directed as dictated. Past Medical History Past Medical History: Blood Disorder, Diabetes Mellitus, Deep Vein Thrombosis (DVT), GERD/Reflux, Hyperlipidemia, Hypertension, Musculoskeletal Disorder, Osteoarthritis (OA), Sleep Apnea/CPAP/BIPAP Additional Past Medical History / Comment(s): FACTOR 5 LEIDEN, HX OF (2) DVT'S LEFT LEG & (1) SUPERFICIAL CLOT,hiatal hernia, USES BIPAP MACHINE trilogy machine at night, ENVIRONMENTAL ALLERGIES, FATTY LIVER, DDD & BULDGING DISC WITH BACK PAIN, pain pump implant,CANE, PARTIALLY BLIND LEFT EYE, STATES SCARRING WITH NARROWING OF ESOPHAGUS & Hx of DIFFICULTY SWALLOWING, currently no difficulty swallowing. MIGRAINES, PVD, gastroparesis, charcot of right foot really bad, charcot of left foot less severe. right foot ulcer started in August 2020 History of Any Multi-Drug Resistant Organisms: None Reported Past Surgical History: Tonsillectomy Additional Past Surgical History / Comment(s): eye surgery as infant, EGD WITH DILATION X2 , uppp sx for sleep apnea, pain pump insertion Past Anesthesia/Blood Transfusion Reactions: Family History of Problems w/ Anesthesia Additional Past Anesthesia/Blood Transfusion Reaction / Comm: STATES "MOTHER CRASHES" "passes out"-with anesthesia,"needs to have a school administrator dose" Past Psychological History: Anxiety, Depression Additional Psychological History / Comment(s): . Smoking Status: Never smoker Past Alcohol Use History: None Reported Past Drug Use History: None Reported - Past Family History Father Family Medical History: Cancer Additional Family Medical History / Comment(s): BLADDER CANCER Mother Family Medical History: CVA/TIA, Diabetes Mellitus, Myocardial Infarction ([place]) Medications and Allergies Home Medications Medication Instructions Recorded Confirmed Type Latanoprost Ophth [Xalatan 0.005%] 1 drop BOTH EYES HS 01/23/14 01/31/21 History Simvastatin [Zocor] 20 mg PO HS 01/23/14 01/31/21 History Loratadine [Claritin] 10 mg PO DAILY 01/28/16 01/31/21 History Pantoprazole Sodium [Protonix] 40 mg PO BID 01/28/16 01/31/21 History metFORMIN HCL [Glucophage] 1,000 mg PO BID 01/28/16 01/31/21 History Morphine Pain Pump 1 dose INTRATHECA CONTINUOUS 05/05/17 01/31/21 History Ammonium Lactate Cream [Lac-Hydrin 1 applic TOPICAL DAILY 09/30/17 01/31/21 History 12% Cream] DULoxetine HCL [Cymbalta] 60 mg PO DAILY 09/30/17 01/31/21 History Pregabalin [Lyrica] 200 mg PO BID 09/30/17 01/31/21 History Cyclobenzaprine [Flexeril] 10 mg PO Q8H PRN 10/25/20 01/31/21 History DULoxetine HCL [Cymbalta] 30 mg PO BID 10/25/20 01/31/21 History Ferrous Sulfate [Iron (65 MG 325 mg PO BID 10/25/20 01/31/21 History Elemental)] Fluticasone Propionate [Flovent 2 puff INHALATION RT-BID 10/25/20 01/31/21 History Hfa 220 mcg] Furosemide [Lasix] 40 mg PO DAILY 10/25/20 01/31/21 History Potassium Chloride [K-Tab ER] 20 meq PO DAILY 10/25/20 01/31/21 History SUMAtriptan succinate [Imitrex] 50 mg PO DAILY PRN 10/25/20 01/31/21 History Ondansetron Odt [Zofran Odt] 4 mg PO Q8HR PRN #12 tab 11/05/20 01/31/21 Rx Insulin Glargine,Hum.rec.anlog 50 unit SQ BID 01/31/21 01/31/21 History [Lantus Solostar Pen] Insulin Lispro [humaLOG Kwikpen] 8 unit SQ AC-BRKFST 01/31/21 01/31/21 History Insulin Lispro [humaLOG Kwikpen] 15 unit SQ AC-LUNCH 01/31/21 01/31/21 History Insulin Lispro [humaLOG Kwikpen] 22 unit SQ AC-SUPPER 01/31/21 01/31/21 History Warfarin [Coumadin] 10 mg PO HS 01/31/21 01/31/21 History carBAMazepine [TEGretol] 100 mg PO Q12H 01/31/21 01/31/21 History Allergies Allergy/AdvReac Type Severity Reaction Status Date / Time adhesive Allergy Rash/Hives Verified 01/31/21 11:09 Physical Exam Vitals: Vital Signs Temp Pulse Resp BP Pulse Ox 02/02/21 04:45 98.9 F 75 20 135/74 02/01/21 20:00 98.6 F 68 20 130/75 02/01/21 12:19 99.2 F 73 19 135/74 96 Intake and Output 02/01/21 02/02/21 02/02/21 22:59 06:59 14:59 Intake Total 610 100 Balance 610 100 Intake: Intake, IV Titration 610 Amount Cefepime 2 gm In Sodium 10 Chloride 0.9% 100 ml @ 25 mls/hr IVPB Q8HR [facility] Rx# :[id number] Piperacillin-Tazobactam 3 100 .375 gm In Sodium Chloride 0.9% 100 ml @ 25 mls/hr IVPB Q8H [facility] Rx#: [id number] Vancomycin 2,000 mg In 500 Sodium Chloride 0.9% 500 ml 500 ml @ 167 mls/hr IVPB Q8H [facility] Rx#: [id number] Oral 100 Other: Voiding Method Toilet # Voids 2 2 Results CBC & Chem 7: 02/01/21 07:26 02/02/21 08:03 Labs: Abnormal Lab Results - Last 24 Hours (Table) 02/01/21 02/01/21 02/01/21 Range/Units 11:26 17:12 20:41 PT (9.0-12.0) sec INR (<1.2) POC Glucose (mg/dL) 149 H 146 H 189 H (75-99) mg/dL 02/02/21 02/02/21 Range/Units 07:05 08:03 PT 22.7 H (9.0-12.0) sec INR 2.3 H (<1.2) POC Glucose (mg/dL) 107 H (75-99) mg/dL Microbiology - Last 24 Hours (Table) 01/31/21 23:00 Gram Stain - Preliminary Foot - Right Wound Culture - Preliminary 01/31/21 13:15 Blood Culture - Preliminary Blood No Growth after 24 hours 01/31/21 13:00 Blood Culture - Preliminary Blood No Growth after 24 hours 01/31/21 23:00 Anaerobic Culture - Preliminary Foot - Right Assessment and Plan (1) Non-pressure chronic ulcer of other part of right foot with fat layer exposed Current Visit: No Status: Acute Code(s): L97.512 - NON-PRS CHRONIC ULCER OTH PRT RIGHT FOOT W FAT LAYER EXPOSED SNOMED Code(s): 163423327 (2) Diabetic foot ulcer Current Visit: Yes Status: Acute Code(s): E11.621 - TYPE 2 DIABETES MELLITUS WITH FOOT ULCER; L97.509 - NON-PRESSURE CHRONIC ULCER OTH PRT UNSP FOOT W UNSP SEVERITY SNOMED Code(s): 775143652 (3) Charcot's joint, right ankle and foot Current Visit: No Status: Acute Code(s): M14.671 - CHARCOT'S JOINT, RIGHT ANKLE AND FOOT SNOMED Code(s): 867798553
--- NOTE | 2021-02-02 13:35 | P.PN ---
Subjective Progress Note Date: 02/02/21 This is a 50-year-old gentleman past medical history of diabetes mellitus, DVT, history of GERD, hypertension, hyperlipidemia, history of DJD, obstructive sleep apnea, factor V Leyden deficiency. He presented to Hospital significant ulceration of the right foot. Patient had planned to have an arthrodesis and a complicated procedure at [facility] on February 18 patient was receiving wound care and hyperbaric oxygen for the right foot ulcer. He has been running a fever and was sent for urine hospital ER and was admitted for further evaluation. Lichen was 7.2 on admission, previous cultures are growing pseudomonas and MSSA, there is no history of any headache, loss of consciousness or seizures at this time. 02/02/2021 Patient seen on reevaluation the right foot is dressed, he continues on empiric antimicrobial therapy with cefepime, wound cultures are pending. Blood sugars are controlled glucose 143. He is afebrile, hemodynamically stable. Will order a bone scan to rule out potential osteomyelitis in the foot. REVIEW OF SYSTEMS: ENT: No diminished vision or hearing. CARDIOVASCULAR: Mentioned earlier. RESPIRATORY: As mentioned earlier. GI: No nauscea, vomiting or diarrhea. : No dysuria or retention. NERVOUS SYSTEM: No numbness or weakness. ALLERGY/IMMUNOLOGY: No asthma or hay fever. MUSCULOSKELETAL: Right foot wound HEENT: Head is atraumatic, normocephalic. Pupils equal, round. Sclerae is anicteric. NECK: Supple. No JVD. No lymphadenopathy. No thyromegaly. LUNGS: Clear to auscultation. No wheezes or rhonchi. HEART: Regular rate and rhythm. No murmur. ABDOMEN: Soft. Bowel sounds are present. No masses. EXTREMITIES: 2+ edema, right lower extremity wrapped and dressed NEUROLOGICAL: Patient is awake, alert and oriented x3. Cranial nerves 2 through 12 are grossly intact. Right foot diabetic ulcer, possible cellulitis and sepsis, POA Right Charcot foot Anemia, possibly anemia of chronic disease Hyponatremia Type 2 diabetes mellitus Elevated CRP History of DVT History of GERD Hypertension Hyperlipidemia History of degenerative joint disease History of obstructive sleep apnea History of factor V Leyden deficiency DEXA and history of environmental ALLERGIES History of back pain History of tonsillectomy History of anxiety and depression History of morbid obesity Patient is continued on antimicrobials, currently receiving cefepime, wound cultures are pending we'll follow up with the results. Infectious disease has been consulted along with podiatry, he is receiving local wound care with collagen silver, moist gauze dressing to be changed Wednesday. Receiving hyperbaric oxygen therapy. Will order a bone scan to rule out possible osteomyelitis. Continue current insulin regimen, blood sugars are controlled. The right side is currently dressed and wrapped. Patient is not having significant pain at this time. Continue with symptomatic treatment, local wound care, antimicrobials. We'll continue to follow. Prognosis guarded. Objective - Vital Signs Vital signs: Vital Signs Temp 98.4 F 02/02/21 12:57 Pulse 68 02/02/21 12:57 Resp 20 02/02/21 12:57 BP 98/61 02/02/21 12:57 Pulse Ox 92 L 02/02/21 12:57 Intake & Output 02/01/21 02/02/21 02/02/21 18:59 06:59 18:59 Intake Total 610 100 Balance 610 100 Weight 134.263 kg Intake: Intake, IV Titration 610 Amount Cefepime 2 gm In Sodium 10 Chloride 0.9% 100 ml @ 25 mls/hr IVPB Q8HR [facility] Rx# :[id number] Piperacillin-Tazobactam 3 100 .375 gm In Sodium Chloride 0.9% 100 ml @ 25 mls/hr IVPB Q8H [facility] Rx#: [id number] Vancomycin 2,000 mg In 500 Sodium Chloride 0.9% 500 ml 500 ml @ 167 mls/hr IVPB Q8H [facility] Rx#: [id number] Oral 100 Other: Voiding Method Toilet # Voids 2 2 - Labs CBC & Chem 7: 02/01/21 07:26 02/02/21 08:03 Labs: Abnormal Lab Results - Last 24 Hours (Table) 02/01/21 02/01/21 02/02/21 Range/Units 17:12 20:41 07:05 PT (9.0-12.0) sec INR (<1.2) POC Glucose (mg/dL) 146 H 189 H 107 H (75-99) mg/dL 02/02/21 02/02/21 Range/Units 08:03 11:36 PT 22.7 H (9.0-12.0) sec INR 2.3 H (<1.2) POC Glucose (mg/dL) 143 H (75-99) mg/dL Microbiology - Last 24 Hours (Table) 01/31/21 23:00 Gram Stain - Preliminary Foot - Right Wound Culture - Preliminary 01/31/21 13:15 Blood Culture - Preliminary Blood No Growth after 24 hours 01/31/21 13:00 Blood Culture - Preliminary Blood No Growth after 24 hours 01/31/21 23:00 Anaerobic Culture - Preliminary Foot - Right
[2021-02-02 17:14] LABS: Glucose,Whole Blood 172 mg/dL (75-99)
[2021-02-02] MEDS ORDERED: WARFARIN 10 MG TAB PO ONE (18:00)
[2021-02-02 20:25] LABS: Glucose,Whole Blood 180 mg/dL (75-99)
[2021-02-02] MEDS: ATORVASTATIN 10 MG TAB PO SCH (20:37)
[2021-02-02] MEDS: LATANOPROST 0.005% OPHTH DROPS 2.5 ML BTL BOTH EYES SCH (20:38)
--- NOTE | 2021-02-03 03:11 | PN ---
PROGRESS NOTE DATE OF SERVICE: 02/02/2021 REASON FOR FOLLOWUP: Fever, right lower extremity cellulitis. INTERVAL HISTORY: The patient is afebrile. The patient is currently breathing comfortably. Denies having any chest pain, shortness of breath, cough, no abdominal pain or pain to the lower extremity. PHYSICAL EXAMINATION: Blood pressure 117/66, pulse of 73, temperature 98.4. He is 95% on 1 L nasal cannula. General description is a middle-aged male up in the bed in no distress. Respiratory system: Unlabored breathing. Clear to auscultation anteriorly. Heart S1, S2. Regular rate and rhythm. Abdomen: Soft. No tenderness. Right lower extremity edema, swelling and mild redness and warmth. LABS: Cultures currently pending. Blood cultures have been negative so far. Lower extremity Doppler was negative for DVT. DIAGNOSTIC IMPRESSION AND PLAN: Patient with fever, concerning for right lower extremity cellulitis. The patient's fever responded to cefepime that will be continued at this point while waiting for the culture to finalize. VIVI wrap to the leg to keep the swelling down. Continue supportive care. MMODL / IJN: [id number] /
[2021-02-03 06:35] LABS: Prothrombin Time 19.9 sec (9.0-12.0)
[2021-02-03 08:10] LABS: Glucose,Whole Blood 169 mg/dL (75-99)
[2021-02-03] MEDS: INSULIN DETEMIR (LEVEMIR) 100 UNIT/ML SYR SQ SCH ×2 (08:26→20:23)
[2021-02-03] MEDS: DULoxetine HCL 30 MG CAPSULE.DR PO SCH ×2 (08:29→20:23)
[2021-02-03] MEDS: DULoxetine HCL 60 MG CAPSULE.DR PO SCH (08:29)
[2021-02-03] MEDS: metFORMIN 500 MG TAB PO SCH ×2 (08:29→20:22)
[2021-02-03] MEDS: POTASSIUM CHLORIDE ER 20 MEQ TAB.ER PO SCH (08:29)
[2021-02-03] MEDS: FERROUS SULFATE 325 MG TAB PO SCH ×2 (08:29→20:23)
[2021-02-03] MEDS: PANTOPRAZOLE 40 MG TABLET PO SCH ×2 (08:29→17:45)
[2021-02-03] MEDS: PREGABALIN 100 MG CAP PO SCH ×2 (08:29→20:23)
[2021-02-03] MEDS: FUROSEMIDE 40 MG TAB PO SCH (08:29)
[2021-02-03] MEDS: LORATADINE 10 MG TAB PO SCH (08:29)
[2021-02-03] MEDS: CEFEPIME 2 GM in SODIUM CHLORIDE 0.9% 100 ML IVPB SCH ×3 (08:30→23:32)
[2021-02-03] MEDS: INSULIN ASPART (NovoLOG) 100 UNIT/ML VIAL SQ SCH ×3 (08:30→17:45)
[2021-02-03] MEDS: FLUTICASONE 220 MCG INHALER INHALATION SCH ×2 (10:58→18:54)
[2021-02-03 11:27] LABS: Glucose,Whole Blood 139 mg/dL (75-99)
--- NOTE | 2021-02-03 14:58 | NM ---
EXAMINATION TYPE: NM bone 3 phase DATE OF EXAM: 02/03/2021 COMPARISON: NONE HISTORY: Right foot swelling Triple phase bone scintigraphy was performed following the injection of 22.9 mCi Tc 99m MDP. Immedia te images and 5.5 hours post injection images acquired. FINDINGS: There is increased flow to the right foot. There is increased soft tissue uptake involving the distal right lower extremity and right foot There is intense abnormal uptake involving the midfoot osseous structures on delayed imaging suggesti ve of osteomyelitis. Abnormal uptake on delayed images within the midfoot bilaterally some of which could be post arthriti c. IMPRESSION: 1. Findings are suggestive of cellulitis with osteomyelitis. There does appear to be some irregularit y in the osseous structures of the tarsal navicular and cuneiform bones on the previous x-ray which c orresponds to the areas of abnormal uptake. Findings could be on the basis of Charcot joint and osteo myelitis.
[2021-02-03 17:35] LABS: Glucose,Whole Blood 207 mg/dL (75-99)
[2021-02-03] MEDS ORDERED: WARFARIN 10 MG TAB PO ONE (18:00)
--- NOTE | 2021-02-03 19:20 | PN ---
PROGRESS NOTE DATE OF SERVICE: 02/03/2021 This 50-year-old gentleman who was admitted with right foot diabetic ulcer and possible cellulitis and sepsis, present on admission, is being closely monitored. No chest pain. No palpitations. No fever. A bone scan was done. Infectious Disease is following the patient closely. The patient is on empiric antibiotics. The bone scan showed cellulitis with osteomyelitis. No chest pain. No palpitations. No fever. PHYSICAL EXAMINATION: Alert and oriented x3. Pulse is 70, blood pressure 103/159, respirations 16, temperature 98.3, pulse ox 92% on 2 L. HEENT: Conjunctivae normal. NECK: No jugular venous distention. CARDIOVASCULAR: S1, S2 muffled. RESPIRATION: Breath sounds diminished at the bases. A few scattered rhonchi. ABDOMEN: Soft. NERVOUS SYSTEM: No focal deficit. LABS: Hemoglobin 11. INR is 2. Other labs are noted. ASSESSMENT: 1. Right foot diabetic ulcer with cellulitis as well as sepsis, present on admission, with acute osteomyelitis. 2. Right Charcot foot. 3. Anemia, possibly anemia of chronic disease. 4. Hyponatremia. 5. Diabetes mellitus, type 2. 6. Elevated CRP. 7. History of deep vein thrombosis. 8. History of gastroesophageal reflux disease. 9. Hypertension. 10.Hyperlipidemia. 11.History of degenerative joint disease. 12.History of obstructive sleep apnea. 13.History of factor V Leiden deficiency. 14.History of environmental allergies. 15.History of back pain. 16.History of tonsillectomy. 17.History of anxiety, depression. 18.History of morbid obesity. RECOMMENDATIONS AND DISCUSSION: I recommend to continue current medications, continue with symptomatic treatment. Continue with antibiotics. The patient is on IV cefepime. Sandra albicans was also grown from the culture. Add Diflucan to the current regimen. Further recommendations to follow. MMODL / IJN: [id number] /
[2021-02-03 20:13] LABS: Glucose,Whole Blood 206 mg/dL (75-99)
[2021-02-03] MEDS: FLUCONAZOLE 100 MG TAB PO SCH (20:23)
[2021-02-03] MEDS: ATORVASTATIN 10 MG TAB PO SCH (20:23)
[2021-02-03] MEDS: LATANOPROST 0.005% OPHTH DROPS 2.5 ML BTL BOTH EYES SCH (20:24)
[2021-02-03] MEDS: NON FORMULARY DRUG (Morphine Pain Pump 1 DOSE) MISCELLANE SCH (20:48)
[2021-02-04 06:27] LABS: INR 1.9 (<1.2)
[2021-02-04] MEDS: FLUTICASONE 220 MCG INHALER INHALATION SCH ×2 (07:22→20:35)
[2021-02-04 07:24] LABS: Glucose,Whole Blood 119 mg/dL (75-99)
[2021-02-04] MEDS: CEFEPIME 2 GM in SODIUM CHLORIDE 0.9% 100 ML IVPB SCH ×2 (07:56→15:55)
[2021-02-04] MEDS: DULoxetine HCL 60 MG CAPSULE.DR PO SCH (07:57)
[2021-02-04] MEDS: PANTOPRAZOLE 40 MG TABLET PO SCH ×2 (07:57→18:14)
[2021-02-04] MEDS: metFORMIN 500 MG TAB PO SCH ×2 (07:57→19:34)
[2021-02-04] MEDS: POTASSIUM CHLORIDE ER 20 MEQ TAB.ER PO SCH (07:57)
[2021-02-04] MEDS: PREGABALIN 100 MG CAP PO SCH ×2 (07:57→19:34)
[2021-02-04] MEDS: INSULIN DETEMIR (LEVEMIR) 100 UNIT/ML SYR SQ SCH ×2 (07:57→22:00)
[2021-02-04] MEDS: DULoxetine HCL 30 MG CAPSULE.DR PO SCH ×2 (07:58→19:34)
[2021-02-04] MEDS: LORATADINE 10 MG TAB PO SCH (07:58)
[2021-02-04] MEDS: FERROUS SULFATE 325 MG TAB PO SCH ×2 (07:58→19:34)
[2021-02-04] MEDS: FLUCONAZOLE 100 MG TAB PO SCH (07:58)
[2021-02-04] MEDS: FUROSEMIDE 40 MG TAB PO SCH (07:58)
[2021-02-04] MEDS: INSULIN ASPART (NovoLOG) 100 UNIT/ML VIAL SQ SCH ×3 (09:09→19:33)
[2021-02-04 12:06] LABS: Glucose,Whole Blood 122 mg/dL (75-99)
--- NOTE | 2021-02-04 14:26 | PN ---
PROGRESS NOTE DATE OF SERVICE: 02/04/2021 REASON FOR FOLLOWUP: Fever, likely right lower extremity cellulitis. INTERVAL HISTORY: The patient is afebrile. The patient is breathing comfortably. The patient denies having any chest pain, shortness of breath or cough. No abdominal pain or diarrhea. PHYSICAL EXAMINATION: Blood pressure 102/68 with a pulse of 72, temperature 98.2. He is 93% on 2 L nasal cannula. General description is a middle-aged male lying in bed in no distress. RESPIRATORY SYSTEM: Unlabored breathing. Clear to auscultation anteriorly. HEART: S1, S2. Regular rate and rhythm. ABDOMEN: Soft. No tenderness. Legs are currently wrapped. No obvious drainage on the dressing. LABS: INR is 1.9. Local culture with Sandra. DIAGNOSTIC IMPRESSION AND PLAN: Patient with a fever. Source is likely right lower extremity cellulitis in this who patient did have a positive bone scan. Local cultures are not helpful. Will recommend getting vascular surgery evaluation and debridement and deep cultures to determine discharge antibiotics. Continue with supportive care. MMODL / IJN: [id number] /
--- NOTE | 2021-02-04 14:42 | CONS ---
DATE OF CONSULTATION: 02/04/2021 This is a 50-year-old diabetic male who [facility] under the care of Dr. Coleman. The patient had an episode of fever and he was sent to the emergency room. The patient has a chronic ulcer on the plantar aspect of the right foot. He has been treated with local wound care and hyperbaric chamber. Patient has an appointment at [facility] for Charcot foot for surgical intervention. Patient has already been seen by Dr. Carrillo. At this point, I defer the case to Dr. Carrillo for further management. MMODL / IJN: [id number] / MTDD
--- NOTE | 2021-02-04 17:07 | PN ---
PROGRESS NOTE DATE OF SERVICE: 02/04/2021 This 50-year-old gentleman who was admitted with right foot diabetic ulcer is being closely monitored. Patient had features of osteomyelitis, also. The cultures are showing Sandra albicans. No other organism is identified. No chest pain. No palpitations. No fever. PHYSICAL EXAMINATION: Alert and oriented x3. Pulse 69, blood pressure 107/60, respiration 18, temperature 98 degrees, pulse ox 92% on 2 L. HEENT: Conjunctivae normal. NECK: No jugular venous distention. CARDIOVASCULAR: S1, S2 muffled. RESPIRATION: Breath sounds diminished at the bases. A few scattered rhonchi. ABDOMEN: Soft. NERVOUS SYSTEM: No focal deficit. LABS: INR 1.9. Other labs are noted. ASSESSMENT: 1. Right foot diabetic ulcer and cellulitis as well as sepsis, present on admission, with acute osteomyelitis. 2. Right Charcot foot. 3. Anemia, possibly anemia of chronic disease. 4. Hyponatremia. 5. Diabetes mellitus, type 2. 6. Elevated CRP. 7. History of deep vein thrombosis. 8. History of gastroesophageal reflux disease. 9. Hypertension. 10.Hyperlipidemia. 11.History of degenerative joint disease. 12.History of obstructive sleep apnea. 13.History of factor V Leiden deficiency. 14.History of environmental allergies. 15.History of back pain. 16.History of tonsillectomy. 17.History of anxiety, depression. 18.History of morbid obesity. RECOMMENDATIONS AND DISCUSSION: I recommend to continue current medications, continue with symptomatic treatment. I recommend continuing with empiric antibiotics. Closely follow with Infectious Disease. Vascular surgery consultation. The prognosis is guarded because of multiple complex medical issues. Further recommendations to follow. MMODL / IJN: [id number] /
[2021-02-04 17:15] LABS: Glucose,Whole Blood 129 mg/dL (75-99)
[2021-02-04] MEDS ORDERED: WARFARIN 3 MG TAB PO ONE (18:00)
[2021-02-04] MEDS: ATORVASTATIN 10 MG TAB PO SCH (19:34)
[2021-02-04 21:22] LABS: Glucose,Whole Blood 129 mg/dL (75-99)
[2021-02-05] MEDS: CEFEPIME 2 GM in SODIUM CHLORIDE 0.9% 100 ML IVPB SCH ×4 (00:20→23:37)
[2021-02-05] MEDS: NON FORMULARY DRUG (Morphine Pain Pump 1 DOSE) MISCELLANE SCH ×2 (00:20→20:58)
[2021-02-05] MEDS: LATANOPROST 0.005% OPHTH DROPS 2.5 ML BTL BOTH EYES SCH ×2 (00:21→20:57)
[2021-02-05 06:41] LABS: INR 2.1 (<1.2); Prothrombin Time 20.9 sec (9.0-12.0)
[2021-02-05] MEDS: FLUTICASONE 220 MCG INHALER INHALATION SCH ×2 (07:39→20:18)
[2021-02-05 07:41] LABS: Glucose,Whole Blood 99 mg/dL (75-99)
[2021-02-05] MEDS: INSULIN ASPART (NovoLOG) 100 UNIT/ML VIAL SQ SCH ×3 (08:46→17:53)
[2021-02-05] MEDS: FLUCONAZOLE 100 MG TAB PO SCH (08:47)
[2021-02-05] MEDS: DULoxetine HCL 30 MG CAPSULE.DR PO SCH ×2 (08:47→20:55)
[2021-02-05] MEDS: FUROSEMIDE 40 MG TAB PO SCH (08:47)
[2021-02-05] MEDS: PREGABALIN 100 MG CAP PO SCH ×2 (08:47→20:56)
[2021-02-05] MEDS: PANTOPRAZOLE 40 MG TABLET PO SCH ×2 (08:47→17:54)
[2021-02-05] MEDS: metFORMIN 500 MG TAB PO SCH ×2 (08:47→20:55)
[2021-02-05] MEDS: FERROUS SULFATE 325 MG TAB PO SCH ×2 (08:47→20:55)
[2021-02-05] MEDS: DULoxetine HCL 60 MG CAPSULE.DR PO SCH (08:47)
[2021-02-05] MEDS: POTASSIUM CHLORIDE ER 20 MEQ TAB.ER PO SCH (08:48)
[2021-02-05] MEDS: LORATADINE 10 MG TAB PO SCH (08:48)
[2021-02-05] MEDS: INSULIN DETEMIR (LEVEMIR) 100 UNIT/ML SYR SQ SCH ×2 (08:49→20:55)
[2021-02-05 12:33] LABS: Glucose,Whole Blood 138 mg/dL (75-99)
--- NOTE | 2021-02-05 16:47 | MR ---
MRI right foot without and with contrast HISTORY: Abnormal bone scan Multiplanar multisequence and postcontrast images obtained through the right foot following 14 cc Axel avist IV Correlation to bone scan 02/03/2021, right foot 01/31/2021 Destructive changes of the midfoot are present. There is artifact somewhat limiting detail. Intermedi ate signal is seen at multiple areas within the middle midfoot to include fragmented tarsal bones, pr oximal metatarsals. Abnormal intermediate signal on T1, increased signal on T2, enhancement post cont rast. There is a focus of low signal with peripheral enhancement at the volar aspect of the foot benjamin uring approximately 2.2 cm in greatest dimension with a suggestion sinus tract to the surface of the skin at the volar aspect of the midfoot consistent with abscess, abscess fluid courses at the volar a spect of the cuboid. There is malalignment especially at the talus navicular joint, underlying arthro jonathan change with cystic geode formation at multiple tarsal bones. The plantar aponeurosis, Achilles tendon are intact. Soft tissue swelling and cellulitis also suspected. IMPRESSION: Findings are consistent with neuropathic foot, Charcot foot. There is underlying osteomye litis of the midfoot, multiple bones show abnormal signal. There is a plantar abscess present. Synovi tis.
--- NOTE | 2021-02-05 17:05 | P.PN ---
Subjective Progress Note Date: 02/05/21 This is a 50-year-old male who was recently admitted with right foot diabetic ulcer and being closely monitored. Bone scan was done showing features of osteomyelitis and infectious disease following closely. Patient is maintained on IV antibiotics and vascular surgery Dr. Fuentes evaluated the patient recommending continuing with antibiotic therapy and keep follow-up appointment at [facility] with Dr. Coleman as scheduled next week. Foot MRI was ordered and currently pending. Cultures of the foot showing Sandra albicans with no other organism noted. Patient denies any chest pain, shortness of breath, or palpitations. Patient is afebrile. Review of systems: Constitutional: No reports of fatigue, fever, or chills Cardiovascular: No reports of chest pain or palpitations Respiratory: No reports of shortness of breath or cough GI: No reports of nausea, vomiting, or diarrhea : No reports of dysuria or retention Neurovascular: No reports of weakness or numbness, reports right foot pain All medications have been reviewed Active Medications Acetaminophen (Acetaminophen Tab 325 Mg Tab) 650 mg PO Q6HR PRN PRN Reason: Mild Pain or Fever > 100.5 Hydrocodone Bitart/Acetaminophen (Hydrocodone/Apap 5-325mg 1 Each Tab) 1 each PO Q4HR PRN PRN Reason: Moderate Pain Last Admin: 02/02/21 08:33 Dose: 1 each Documented by: Atorvastatin Calcium (Atorvastatin 10 Mg Tab) 10 mg PO HS FOR[facility]LY [facility], 1928–1983 Last Admin: 02/04/21 19:34 Dose: 10 mg Documented by: Carbamazepine (Carbamazepine Chew 100 Mg Chew) 100 mg PO Q12H FOR[facility], [facility]1983 Last Admin: 02/05/21 08:47 Dose: 100 mg Documented by: Cyclobenzaprine HCl (Cyclobenzaprine 10 Mg Tab) 10 mg PO Q8H PRN PRN Reason: Pain Duloxetine HCl (Duloxetine Hcl 60 Mg Capsule.) 60 mg PO DAILY FOR[facility]LY [facility], [facility]1983 Last Admin: 02/05/21 08:47 Dose: 60 mg Documented by: Duloxetine HCl (Duloxetine Hcl 30 Mg Capsule.) 30 mg PO BID FOR[facility], [facility]1983 Last Admin: 02/05/21 08:47 Dose: 30 mg Documented by: Ferrous Sulfate (Ferrous Sulfate 325 Mg Tab) 325 mg PO BID [facility], [facility]1983 Last Admin: 02/05/21 08:47 Dose: 325 mg Documented by: Fluconazole (Fluconazole 100 Mg Tab) 100 mg PO DAILY [facility], [facility]1983 Last Admin: 02/05/21 08:47 Dose: 100 mg Documented by: Fluticasone Propionate (Fluticasone 220 Mcg Inhaler) 2 puff INHALATION RT-BID FOR[facility], [facility]–1983 Last Admin: 02/05/21 07:39 Dose: 2 puff Documented by: Furosemide (Furosemide 40 Mg Tab) 40 mg PO DAILY [facility], [facility] Last Admin: 02/05/21 08:47 Dose: 40 mg Documented by: Cefepime HCl 2 gm/ Sodium (Chloride) 100 mls @ 25 mls/hr IVPB Q8HR [facility], [facility]1983 Last Admin: 02/05/21 08:48 Dose: 25 mls/hr Documented by: Insulin Aspart (Insulin Aspart (Novolog) 100 Unit/Ml Vial) 22 unit SQ AC-SUPPER [facility], [facility]–1983 Last Admin: 02/04/21 19:33 Dose: 10 unit Documented by: Insulin Aspart (Insulin Aspart (Novolog) 100 Unit/Ml Vial) 15 unit SQ AC-LUNCH [facility], [facility]1983 Last Admin: 02/05/21 12:58 Dose: 1 unit Documented by: Insulin Aspart (Insulin Aspart (Novolog) 100 Unit/Ml Vial) 8 unit SQ AC-BRKFST [facility], [facility]–1983 Last Admin: 02/05/21 08:46 Dose: Not Given Documented by: Insulin Detemir (Insulin Detemir (Levemir) 100 Unit/Ml Syr) 50 unit SQ BID [facility], [facility]1983 Last Admin: 02/05/21 08:49 Dose: Not Given Documented by: Latanoprost (Latanoprost 0.005% Ophth Drops 2.5 Ml Btl) 1 drops BOTH EYES HS [facility], [facility]–1983 Last Admin: 02/05/21 00:21 Dose: 1 drops Documented by: Loratadine (Loratadine 10 Mg Tab) 10 mg PO DAILY [facility], [facility]1983 Last Admin: 02/05/21 08:48 Dose: 10 mg Documented by: Metformin HCl (Metformin 500 Mg Tab) 1,000 mg PO BID [facility], [facility]1983 Last Admin: 02/05/21 08:47 Dose: 1,000 mg Documented by: Miscellaneous Information (Warfarin Per Pharmacy) 1 each MISCELLANE DIRECTED PRN; Protocol PRN Reason: Per Protocol Naloxone HCl (Naloxone 0.4 Mg/Ml 1 Ml Vial) 0.2 mg IV Q2M PRN PRN Reason: Opioid Reversal Non-Formulary Medication (Morphine Pain Pump) 1 dose MISCELLANE CONTINUOUS [facility], [facility] Last Admin: 02/05/21 00:20 Dose: Not Given Documented by: Ondansetron HCl (Ondansetron 4 Mg/2 Ml Vial) 4 mg IVP Q8HR PRN PRN Reason: Nausea And Vomiting Pantoprazole Sodium (Pantoprazole 40 Mg Tablet) 40 mg PO AC-BID FOR[facility], [facility]1983 Last Admin: 02/05/21 08:47 Dose: 40 mg Documented by: Potassium Chloride (Potassium Chloride Er 20 Meq Tab.Er) 20 meq PO DAILY [facility], [facility]1983 Last Admin: 02/05/21 08:48 Dose: 20 meq Documented by: Pregabalin (Pregabalin 100 Mg Cap) 200 mg PO BID [facility], [facility]1983 Last Admin: 02/05/21 08:47 Dose: 200 mg Documented by: Sumatriptan Succinate (Sumatriptan Succinate 50 Mg Tab) 50 mg PO DAILY PRN PRN Reason: Migraine Headache Warfarin Sodium (Warfarin 3 Mg Tab) 12 mg PO ONCE ONE Stop: 02/05/21 18:01 Physical exam: Gen: This is a 50-year-old male awake, alert and oriented 3 in well-developed, well-nourished, morbidly obese. Temp is 98.7F, pulse is 71, respirations are 20, blood pressure is 118/78, oxygen saturation is 94% on room air. HEENT: Head is atraumatic, normocephalic. Pupils equal, round. Sclerae is anicteric. NECK: Supple. No JVD. No lymphadenopathy. No thyromegaly. LUNGS: Breath sounds diminished bilaterally with a few scattered rhonchi noted. No intercostal retractions. HEART: S1, S2 are muffled ABDOMEN: Soft. Bowel sounds are present. No masses. No tenderness. EXTREMITIES: No pedal edema. No calf tenderness. Right foot plantar ulcer noted NEUROLOGICAL: Patient is awake, alert and oriented x3. No focal deficits. Assessment: Right foot diabetic ulcer and cellulitis as well as sepsis, present on admission, with acute osteomyelitis Right Charcot's foot Anemia, possible anemia of chronic disease Hyponatremia Diabetes mellitus type 2 Elevated CRP History of DVT History of gastroesophageal reflux disease Hypertension Hyperlipidemia History of degenerative joint disease History of obstructive sleep apnea History of factor 5 L deficiency next line history of environmental ALLERGIES History of back pain History of tonsillectomy history of anxiety, depression Morbid obesity with a body mass index of 47.8 Full code Plan: Recommend continue with current medications, management, and symptomatic treatment. Patient is continued on IV antibiotics in the form of cefepime and will continue at this time. Infectious disease following closely. Vascular surgery has evaluated the patient recommending no surgical intervention from his standpoint and continue to follow closely with Dr. Coleman and [facility] at scheduled appointment next week. Right foot MRI ordered and pending and will await report. Will discuss with infectious disease about discharge antibiotics and treatment plan moving forward. Due to multiple complex medical issues, prognosis is guarded. Possible discharge in 24 hours. Objective - Vital Signs Vital signs: Vital Signs Temp 98.7 F 02/05/21 05:45 Pulse 71 02/05/21 05:45 Resp 20 02/05/21 05:45 BP 118/78 02/05/21 05:45 Pulse Ox 98 02/05/21 07:39 Intake & Output 02/04/21 02/05/21 02/05/21 18:59 06:59 18:59 Intake Total 1650 100 Output Total 600 Balance 1650 -500 Weight 134.263 kg Intake: Oral 1650 100 Output: Urine 600 Other: Voiding Method Toilet Toilet # Voids 3 2 # Bowel Movements 1 1 - Labs CBC & Chem 7: 02/01/21 07:26 02/02/21 08:03 Labs: Abnormal Lab Results - Last 24 Hours (Table) 02/04/21 02/04/21 02/04/21 Range/Units 12:03 17:13 21:04 PT (9.0-12.0) sec INR (<1.2) POC Glucose (mg/dL) 122 H 129 H 129 H (75-99) mg/dL 02/05/21 Range/Units 05:38 PT 20.9 H (9.0-12.0) sec INR 2.1 H (<1.2) POC Glucose (mg/dL) (75-99) mg/dL Microbiology - Last 24 Hours (Table) 01/31/21 13:15 Blood Culture - Preliminary Blood No Growth after 96 hours 01/31/21 13:00 Blood Culture - Preliminary Blood No Growth after 96 hours
[2021-02-05 17:15] LABS: Glucose,Whole Blood 166 mg/dL (75-99)
[2021-02-05] MEDS ORDERED: WARFARIN 3 MG TAB PO ONE (18:00)
[2021-02-05 20:11] LABS: Glucose,Whole Blood 183 mg/dL (75-99)
[2021-02-05] MEDS: ATORVASTATIN 10 MG TAB PO SCH (20:55)
--- NOTE | 2021-02-06 07:04 | PN ---
PROGRESS NOTE DATE OF SERVICE: 02/05/2021 REASON FOR FOLLOWUP: Right diabetic foot ulcer and question of abscess/osteomyelitis. INTERVAL HISTORY: Patient is currently afebrile. He is breathing comfortably. Denies having any chest pain, shortness of breath, cough, no abdominal pain or any worsening pain in the right foot. PHYSICAL EXAMINATION: Blood pressure is 119/70 with a pulse of 73, temperature is 98.3. He is 92% on room air. General description is a middle-aged male lying in bed in no distress. Respiratory system: Unlabored breathing, clear to auscultation anteriorly. Heart S1, S2. Regular rate and rhythm. Abdomen: Soft. No tenderness. Right foot is currently dressed. No obvious drainage on the dressing. LABS: Sedimentation rate is 83, CRP is 5.10. MRI suspicious for a plantar abscess and a question of osteomyelitis. DIAGNOSTIC IMPRESSION AND PLAN: Patient with fever with nonhealing wound to the right foot in this patient who did have abnormal MRI. The patient did have a drainage of this abscess and cultures that will determine his outpatient antibiotic therapy and continue supportive care. MMODL / IJN: [id number] /
[2021-02-06 07:16] LABS: Glucose,Whole Blood 118 mg/dL (75-99)
[2021-02-06] MEDS: INSULIN ASPART (NovoLOG) 100 UNIT/ML VIAL SQ SCH ×3 (07:32→17:45)
[2021-02-06] MEDS: FLUTICASONE 220 MCG INHALER INHALATION SCH ×2 (07:59→19:35)
[2021-02-06 08:13] LABS: INR 2.5 (<1.2); Prothrombin Time 24.6 sec (9.0-12.0)
[2021-02-06] MEDS: metFORMIN 500 MG TAB PO SCH ×2 (08:59→20:48)
[2021-02-06] MEDS: FERROUS SULFATE 325 MG TAB PO SCH ×2 (08:59→20:48)
[2021-02-06] MEDS: PANTOPRAZOLE 40 MG TABLET PO SCH ×2 (08:59→17:45)
[2021-02-06] MEDS: DULoxetine HCL 30 MG CAPSULE.DR PO SCH ×2 (09:00→20:48)
[2021-02-06] MEDS: DULoxetine HCL 60 MG CAPSULE.DR PO SCH (09:00)
[2021-02-06] MEDS: FLUCONAZOLE 100 MG TAB PO SCH (09:00)
[2021-02-06] MEDS: FUROSEMIDE 40 MG TAB PO SCH (09:00)
[2021-02-06] MEDS: CEFEPIME 2 GM in SODIUM CHLORIDE 0.9% 100 ML IVPB SCH ×3 (09:00→23:51)
[2021-02-06] MEDS: PREGABALIN 100 MG CAP PO SCH ×2 (09:00→20:48)
[2021-02-06] MEDS: POTASSIUM CHLORIDE ER 20 MEQ TAB.ER PO SCH (09:00)
[2021-02-06] MEDS: LORATADINE 10 MG TAB PO SCH (09:00)
[2021-02-06] MEDS: INSULIN DETEMIR (LEVEMIR) 100 UNIT/ML SYR SQ SCH ×2 (09:01→20:48)
[2021-02-06 11:14] LABS: Glucose,Whole Blood 143 mg/dL (75-99)
--- NOTE | 2021-02-06 15:55 | PN ---
PROGRESS NOTE DATE OF SERVICE: 02/06/2021 REASON FOR FOLLOWUP: Right diabetic foot ulcer with a question of abscess/osteomyelitis. INTERVAL HISTORY: The patient is afebrile. The patient is currently breathing comfortably. No chest pain, shortness of breath or cough. No abdominal pain or any worsening pain to the right foot. PHYSICAL EXAMINATION: Blood pressure 104/68 with a pulse of 53, temperature . He is 97% on room air. General description is a middle-aged male up on the bench in no distress. RESPIRATORY SYSTEM: Unlabored breathing. Clear to auscultation anteriorly. HEART: S1, S2. Regular rate and rhythm. ABDOMEN: Soft. No tenderness. Right foot is currently dressed. No obvious drainage on the dressing. LABS: No new labs have been obtained today. DIAGNOSTIC IMPRESSION AND PLAN: Patient with right diabetic foot ulcer in this patient with abnormal MRI suspicious for an abscess and osteomyelitis. Vascular Surgery has been consulted for drainage of the abscess with cultures. MMODL / IJN: [id number] /
--- NOTE | 2021-02-06 16:04 | P.PN ---
Subjective Progress Note Date: 02/06/21 This is a 50-year-old male who was recently admitted with right foot diabetic ulcer and being closely monitored. Bone scan was done showing features of osteomyelitis and infectious disease following closely. Patient is maintained on IV antibiotics and vascular surgery Dr. Fuentes evaluated the patient recommending continuing with antibiotic therapy and keep follow-up appointment at [facility] with Dr. Coleman as scheduled next week. Foot MRI was ordered and currently pending. Cultures of the foot showing Sandra albicans with no other organism noted. Patient denies any chest pain, shortness of breath, or palpitations. Patient is afebrile. 02/06/2021 Patient is seen and evaluated in follow-up today feeling lethargic and fatigued today. Patient states he has been sleeping more today. Infectious disease following closely. Patient is continued on IV cefepime and will continue. Oral Diflucan as well as culture showing Sandra albicans. MRI of the foot yesterday shows findings consistent with neuropathic foot, Charcot foot with underlying osteomyelitis of the midfoot with multiple bones showing abnormal signals along with a plantar abscess that is present and synovitis. Vascular surgery Dr. Castillo consulted for possible I&D with deep tissue cultures. Patient does follow with Dr. Coleman in the outpatient setting who has been consulted and has not seen the patient. Patient is afebrile. No reports of nausea or vomiting and patient tolerating diet. Patient is on Coumadin and INR is 2.5 with pharmacy to dose. Recommend continue with Accu-Cheks and sliding scale along with scheduled insulins and long acting as well. Review of systems: Constitutional: reports of increased fatigue today, no reports of fever, or chills Cardiovascular: No reports of chest pain or palpitations Respiratory: No reports of shortness of breath or cough GI: No reports of nausea, vomiting, or diarrhea : No reports of dysuria or retention Neurovascular: No reports of weakness or numbness, reports right foot pain All medications have been reviewed Active Medications Acetaminophen (Acetaminophen Tab 325 Mg Tab) 650 mg PO Q6HR PRN PRN Reason: Mild Pain or Fever > 100.5 Hydrocodone Bitart/Acetaminophen (Hydrocodone/Apap 5-325mg 1 Each Tab) 1 each PO Q4HR PRN PRN Reason: Moderate Pain Last Admin: 02/02/21 08:33 Dose: 1 each Documented by: Atorvastatin Calcium (Atorvastatin 10 Mg Tab) 10 mg PO HS [facility] Last Admin: 02/05/21 20:55 Dose: 10 mg Documented by: Carbamazepine (Carbamazepine Chew 100 Mg Chew) 100 mg PO Q12H [facility] Last Admin: 02/06/21 09:00 Dose: 100 mg Documented by: Cyclobenzaprine HCl (Cyclobenzaprine 10 Mg Tab) 10 mg PO Q8H PRN PRN Reason: Pain Duloxetine HCl (Duloxetine Hcl 60 Mg Capsule.) 60 mg PO DAILY [facility] Last Admin: 02/06/21 09:00 Dose: 60 mg Documented by: Duloxetine HCl (Duloxetine Hcl 30 Mg Capsule.Dr) 30 mg PO BID [facility] Last Admin: 02/06/21 09:00 Dose: 30 mg Documented by: Ferrous Sulfate (Ferrous Sulfate 325 Mg Tab) 325 mg PO BID [facility] Last Admin: 02/06/21 08:59 Dose: 325 mg Documented by: Fluconazole (Fluconazole 100 Mg Tab) 100 mg PO DAILY [facility] Last Admin: 02/06/21 09:00 Dose: 100 mg Documented by: Fluticasone Propionate (Fluticasone 220 Mcg Inhaler) 2 puff INHALATION RT-BID [facility] Last Admin: 02/06/21 07:59 Dose: 2 puff Documented by: Furosemide (Furosemide 40 Mg Tab) 40 mg PO DAILY [facility] Last Admin: 02/06/21 09:00 Dose: 40 mg Documented by: Cefepime HCl 2 gm/ Sodium (Chloride) 100 mls @ 25 mls/hr IVPB Q8HR [facility] Last Admin: 02/06/21 09:00 Dose: 25 mls/hr Documented by: Insulin Aspart (Insulin Aspart (Novolog) 100 Unit/Ml Vial) 22 unit SQ AC-SUPPER [facility] Last Admin: 02/05/21 17:53 Dose: 5 unit Documented by: Insulin Aspart (Insulin Aspart (Novolog) 100 Unit/Ml Vial) 15 unit SQ AC-LUNCH [facility] Last Admin: 02/06/21 13:14 Dose: 3 unit Documented by: Insulin Aspart (Insulin Aspart (Novolog) 100 Unit/Ml Vial) 8 unit SQ AC-BRKFST [facility] Last Admin: 02/06/21 07:32 Dose: Not Given Documented by: Insulin Detemir (Insulin Detemir (Levemir) 100 Unit/Ml Syr) 50 unit SQ BID [facility] Last Admin: 02/06/21 09:01 Dose: Not Given Documented by: Latanoprost (Latanoprost 0.005% Ophth Drops 2.5 Ml Btl) 1 drops BOTH EYES HS [facility] Last Admin: 02/05/21 20:57 Dose: 1 drops Documented by: Loratadine (Loratadine 10 Mg Tab) 10 mg PO DAILY [facility] Last Admin: 02/06/21 09:00 Dose: 10 mg Documented by: Metformin HCl (Metformin 500 Mg Tab) 1,000 mg PO BID [facility] Last Admin: 02/06/21 08:59 Dose: 1,000 mg Documented by: Miscellaneous Information (Warfarin Per Pharmacy) 1 each MISCELLANE DIRECTED PRN; Protocol PRN Reason: Per Protocol Naloxone HCl (Naloxone 0.4 Mg/Ml 1 Ml Vial) 0.2 mg IV Q2M PRN PRN Reason: Opioid Reversal Non-Formulary Medication (Morphine Pain Pump) 1 dose MISCELLANE CONTINUOUS [facility] Last Admin: 02/05/21 20:58 Dose: 1 dose Documented by: Ondansetron HCl (Ondansetron 4 Mg/2 Ml Vial) 4 mg IVP Q8HR PRN PRN Reason: Nausea And Vomiting Pantoprazole Sodium (Pantoprazole 40 Mg Tablet) 40 mg PO AC-BID [facility] Last Admin: 02/06/21 08:59 Dose: 40 mg Documented by: Potassium Chloride (Potassium Chloride Er 20 Meq Tab.Er) 20 meq PO DAILY [facility] Last Admin: 02/06/21 09:00 Dose: 20 meq Documented by: Pregabalin (Pregabalin 100 Mg Cap) 200 mg PO BID [facility] Last Admin: 02/06/21 09:00 Dose: 200 mg Documented by: Sumatriptan Succinate (Sumatriptan Succinate 50 Mg Tab) 50 mg PO DAILY PRN PRN Reason: Migraine Headache Warfarin Sodium (Warfarin 10 Mg Tab) 10 mg PO ONCE@1800 ONE Stop: 02/06/21 18:01 Physical exam: Gen: This is a 50-year-old male awake, alert and oriented 3 in well-developed, well-nourished, morbidly obese. Temp is 97.8F, pulse is 79, respirations are 16, blood pressure is 151/73, oxygen saturation is 95% on 2 L via nasal cannula. HEENT: Head is atraumatic, normocephalic. Pupils equal, round. Sclerae is anicteric. NECK: Supple. No JVD. No lymphadenopathy. No thyromegaly. LUNGS: Breath sounds diminished bilaterally with a few scattered rhonchi noted. No intercostal retractions. HEART: S1, S2 are muffled ABDOMEN: Soft. Bowel sounds are present. No masses. No tenderness. EXTREMITIES: No pedal edema. No calf tenderness. Right foot plantar ulcer noted. Speedy wrappings of bilateral lower extremities noted with continued generalized edema NEUROLOGICAL: Patient is awake, alert and oriented x3. No focal deficits. Assessment: Right foot diabetic ulcer and cellulitis as well as sepsis, present on admissi on, with acute osteomyelitis Right Charcot's foot Anemia, possible anemia of chronic disease Hyponatremia Diabetes mellitus type 2 Elevated CRP History of DVT History of gastroesophageal reflux disease Hypertension Hyperlipidemia History of degenerative joint disease History of obstructive sleep apnea History of factor 5 L deficiency next line history of environmental ALLERGIES History of back pain History of tonsillectomy history of anxiety, depression Morbid obesity with a body mass index of 47.8 Full code Plan: Recommend continue with current medications, management, and symptomatic treat ment. Patient is continued on IV antibiotics in the form of cefepime and will continue at this time. Oral Diflucan as well as initial wound culture finalized showing Sandra albicans. Infectious disease following closely. Vascular surgery reconsulted as MRI of the foot shows a plantar abscess and synovitis and awaiting consult. Will discuss with infectious disease about discharge antibiotics and treatment plan moving forward. Due to multiple complex medical issues, prognosis is guarded. Objective - Vital Signs Vital signs: Vital Signs Temp 98.1 F 02/06/21 11:50 Pulse 66 02/06/21 11:50 Resp 18 02/06/21 11:50 BP 107/68 02/06/21 11:50 Pulse Ox 94 L 02/06/21 11:50 Intake & Output 02/05/21 02/06/21 02/06/21 18:59 06:59 18:59 Intake Total 125 100 Balance 125 100 Intake: Intake, IV Titration 125 100 Amount Cefepime 2 gm In Sodium 125 100 Chloride 0.9% 100 ml @ 25 mls/hr IVPB Q8HR [facility] Rx# :[id number] Other: Voiding Method Toilet # Voids 2 2 - Labs CBC & Chem 7: 02/01/21 07:26 02/02/21 08:03 Labs: Abnormal Lab Results - Last 24 Hours (Table) 02/05/21 02/05/21 02/05/21 Range/Units 05:38 17:14 20:10 PT (9.0-12.0) sec INR (<1.2) POC Glucose (mg/dL) 166 H 183 H (75-99) mg/dL C-Reactive Protein 5.10 H (0.00-0.80) mg/dL 02/06/21 02/06/21 02/06/21 Range/Units 06:52 07:03 11:13 PT 24.6 H (9.0-12.0) sec INR 2.5 H (<1.2) POC Glucose (mg/dL) 118 H 143 H (75-99) mg/dL C-Reactive Protein (0.00-0.80) mg/dL Microbiology - Last 24 Hours (Table) 01/31/21 13:00 Blood Culture - Final Blood No Growth after 144 hours 01/31/21 13:15 Blood Culture - Final Blood No Growth after 144 hours 01/31/21 23:00 Anaerobic Culture - Final Foot - Right
[2021-02-06 17:17] LABS: Glucose,Whole Blood 142 mg/dL (75-99)
[2021-02-06] MEDS ORDERED: WARFARIN 10 MG TAB PO ONE (18:00)
[2021-02-06 19:54] LABS: Glucose,Whole Blood 155 mg/dL (75-99)
[2021-02-06] MEDS: NON FORMULARY DRUG (Morphine Pain Pump 1 DOSE) MISCELLANE SCH (20:48)
[2021-02-06] MEDS: ATORVASTATIN 10 MG TAB PO SCH (20:48)
[2021-02-06] MEDS: LATANOPROST 0.005% OPHTH DROPS 2.5 ML BTL BOTH EYES SCH (20:54)
[2021-02-07 07:10] LABS: Glucose,Whole Blood 126 mg/dL (75-99)
[2021-02-07] MEDS: INSULIN ASPART (NovoLOG) 100 UNIT/ML VIAL SQ SCH ×3 (07:31→17:34)
[2021-02-07 07:37] LABS: INR 3.2 (<1.2); Prothrombin Time 30.6 sec (9.0-12.0)
[2021-02-07] MEDS: FLUTICASONE 220 MCG INHALER INHALATION SCH ×2 (07:42→19:09)
[2021-02-07] MEDS: CEFEPIME 2 GM in SODIUM CHLORIDE 0.9% 100 ML IVPB SCH ×2 (09:05→17:37)
[2021-02-07] MEDS: FUROSEMIDE 40 MG TAB PO SCH (09:06)
[2021-02-07] MEDS: PANTOPRAZOLE 40 MG TABLET PO SCH ×2 (09:06→17:37)
[2021-02-07] MEDS: FLUCONAZOLE 100 MG TAB PO SCH (09:06)
[2021-02-07] MEDS: LORATADINE 10 MG TAB PO SCH (09:06)
[2021-02-07] MEDS: PREGABALIN 100 MG CAP PO SCH ×2 (09:06→22:30)
[2021-02-07] MEDS: DULoxetine HCL 60 MG CAPSULE.DR PO SCH (09:06)
[2021-02-07] MEDS: POTASSIUM CHLORIDE ER 20 MEQ TAB.ER PO SCH (09:06)
[2021-02-07] MEDS: FERROUS SULFATE 325 MG TAB PO SCH ×2 (09:06→22:30)
[2021-02-07] MEDS: metFORMIN 500 MG TAB PO SCH ×2 (09:06→22:30)
[2021-02-07] MEDS: DULoxetine HCL 30 MG CAPSULE.DR PO SCH ×2 (09:06→22:29)
[2021-02-07] MEDS: INSULIN DETEMIR (LEVEMIR) 100 UNIT/ML SYR SQ SCH ×2 (11:03→22:30)
[2021-02-07 11:54] LABS: Glucose,Whole Blood 158 mg/dL (75-99)
--- NOTE | 2021-02-07 12:46 | P.GSCN ---
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 Coleman and has been undergoing hyperbaric oxygen therapy who was admitted to the hospital with fever and concern for possible osteomyelitis. The primary care physician ordered a bone scan that showed findings suggestive of cellulitis with osteomyelitis. There doesn't appear to be some irregularity in the osseous structures of the tarsal navicular and reform bones on the previous x-ray which corresponds to the areas of abnormal uptake. Findings could be on the basis of a Charcot joint and osteomyelitis. The patient also underwent an MRI of the foot with findings consistent with neuropathic foot, Charcot foot. Underlying osteomyelitis of the midfoot, multiple bones show abnormal signal. There is plantar abscess present. Synovitis. Apparently the patient is supposed to follow-up with a vascular surgeon at [facility] within the next 2 weeks for surgical intervention of the right foot. However patient again presented here with fever with concerns of abscess and infection. Vascular surgery was asked to see the patient regarding possible abscess in the right foot. The patient states overall he is feeling much better. He is been afebrile. He denies any fevers or chills. Denies any shortness of breath, chest pain, abdominal pain, nausea or vomiting. Review of Systems 14 point review of systems was completed and all pertinent positives and negatives as stated in the HPI Past Medical History Past Medical History: Blood Disorder, Diabetes Mellitus, Deep Vein Thrombosis (DVT), GERD/Reflux, Hyperlipidemia, Hypertension, Musculoskeletal Disorder, Osteoarthritis (OA), Sleep Apnea/CPAP/BIPAP Additional Past Medical History / Comment(s): FACTOR 5 LEIDEN, HX OF (2) DVT'S LEFT LEG & (1) SUPERFICIAL CLOT,hiatal hernia, USES BIPAP MACHINE trilogy machine at night, ENVIRONMENTAL ALLERGIES, FATTY LIVER, DDD & BULDGING DISC WITH BACK PAIN, pain pump implant,CANE, PARTIALLY BLIND LEFT EYE, STATES SCARRING WITH NARROWING OF ESOPHAGUS & Hx of DIFFICULTY SWALLOWING, currently no difficulty swallowing. MIGRAINES, PVD, gastroparesis, charcot of right foot really bad, charcot of left foot less severe. 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 Smoking Status: Never smoker Past Alcohol Use History: None Reported Past Drug Use History: None Reported - Past Family History Father Family Medical History: Cancer Additional Family Medical History / Comment(s): BLADDER CANCER Mother Family Medical History: CVA/TIA, Diabetes Mellitus, Myocardial Infarction (RI) Medications and Allergies Home Medications Medication Instructions Recorded Confirmed Type Latanoprost Ophth [Xalatan 0.005%] 1 drop BOTH EYES HS 01/23/14 01/31/21 History Simvastatin [Zocor] 20 mg PO HS 01/23/14 01/31/21 History Loratadine [Claritin] 10 mg PO DAILY 01/28/16 01/31/21 History Pantoprazole Sodium [Protonix] 40 mg PO BID 01/28/16 01/31/21 History metFORMIN HCL [Glucophage] 1,000 mg PO BID 01/28/16 01/31/21 History Morphine Pain Pump 1 dose INTRATHECA CONTINUOUS 05/05/17 01/31/21 History Ammonium Lactate Cream [Lac-Hydrin 1 applic TOPICAL DAILY 09/30/17 01/31/21 History 12% Cream] DULoxetine HCL [Cymbalta] 60 mg PO DAILY 09/30/17 01/31/21 History Pregabalin [Lyrica] 200 mg PO BID 09/30/17 01/31/21 History Cyclobenzaprine [Flexeril] 10 mg PO Q8H PRN 10/25/20 01/31/21 History DULoxetine HCL [Cymbalta] 30 mg PO BID 10/25/20 01/31/21 History Ferrous Sulfate [Iron (65 MG 325 mg PO BID 10/25/20 01/31/21 History Elemental)] Fluticasone Propionate [Flovent 2 puff INHALATION RT-BID 10/25/20 01/31/21 History Hfa 220 mcg] Furosemide [Lasix] 40 mg PO DAILY 10/25/20 01/31/21 History Potassium Chloride [K-Tab ER] 20 meq PO DAILY 10/25/20 01/31/21 History SUMAtriptan succinate [Imitrex] 50 mg PO DAILY PRN 10/25/20 01/31/21 History Ondansetron Odt [Zofran Odt] 4 mg PO Q8HR PRN #12 tab 11/05/20 01/31/21 Rx Insulin Glargine,Hum.rec.anlog 50 unit SQ BID 01/31/21 01/31/21 History [Lantus Solostar Pen] Insulin Lispro [humaLOG Kwikpen] 8 unit SQ AC-BRKFST 01/31/21 01/31/21 History Insulin Lispro [humaLOG Kwikpen] 15 unit SQ AC-LUNCH 01/31/21 01/31/21 History Insulin Lispro [humaLOG Kwikpen] 22 unit SQ AC-SUPPER 01/31/21 01/31/21 History Warfarin [Coumadin] 10 mg PO HS 01/31/21 01/31/21 History carBAMazepine [TEGretol] 100 mg PO Q12H 01/31/21 01/31/21 History Allergies Allergy/AdvReac Type Severity Reaction Status Date / Time adhesive Allergy Rash/Hives Verified 01/31/21 11:09 Surgical - Exam Vital Signs Temp Pulse Resp BP Pulse Ox 100.6 F H 81 20 124/71 95 01/31/21 09:23 01/31/21 09:23 01/31/21 09:23 01/31/21 09:23 01/31/21 09:23 General appearance: The patient is alert, oriented, appears in no acute distress. HET: Head is normocephalic and atraumatic. Pupils are equal and reactive. Oropharynx is clear without lesions. Neck: Supple without lymphadenopathy. Trachea midline. Heart: S1 S2. Regular rate and rhythm. Lungs: No crackles or wheezes are heard. Abdomen: Soft, nontender, nondistended. Extremities: Right lower extremity swelling. Cellulitis, palpable dorsalis pedis pulse. Infected diabetic ulcer to the plantar surface of the right foot, Charcot foot. No drainage noted from the ulcer or odor. Neurological: No focal deficits. Strength and sensation are grossly intact. Results - Labs 02/01/21 07:26 02/02/21 08:03 Abnormal Lab Results - Last 24 Hours (Table) 02/06/21 02/06/21 02/06/21 Range/Units 11:13 17:16 19:52 PT (9.0-12.0) sec INR (<1.2) POC Glucose (mg/dL) 143 H 142 H 155 H (75-99) mg/dL 02/07/21 02/07/21 Range/Units 06:19 07:06 PT 30.6 H (9.0-12.0) sec INR 3.2 H (<1.2) POC Glucose (mg/dL) 126 H (75-99) mg/dL Microbiology - Last 24 Hours (Table) 01/31/21 13:00 Blood Culture - Final Blood No Growth after 144 hours 01/31/21 13:15 Blood Culture - Final Blood No Growth after 144 hours - Imaging Comments: See details from HPI Assessment and Plan Assessment: 1. Right lower extremity infected diabetic foot ulcer with possible abcess per MRI 2. Cellulitis of the right lower extremity 3. Right Charcot foot 4. Diabetes mellitus 5. History of DVT on Coumadin Plan: 1. Hold Coumadin 2. Continue IV antibiotics per recommendations from infectious disease 3. Nothing by mouth after midnight on Wednesday 4. Plan for I&D Wednesday with deep tissue culture 5. INR stat Wednesday morning 6. Recommend further outpatient follow-up as planned with vascular surgeon at [facility] Thank you for this consultation, and allowing us take part in the plan of care of your patient during his hospital stay. The impression and plan of care has been dictated as directed. [] I performed a history and examination of this patient, discussed the same with the dictator. I agree with the dictator's note ,documented as a scribe. Any additional findings or plans will be noted.
[2021-02-07 17:12] LABS: Glucose,Whole Blood 127 mg/dL (75-99)
[2021-02-07] MEDS: HYDROcodone/APAP 5-325MG 1 EACH TAB PO PRN (17:38)
[2021-02-07] MEDS ORDERED: WARFARIN 0.5 MG TAB PO ONE (18:00)
--- NOTE | 2021-02-07 18:17 | PN ---
PROGRESS NOTE DATE OF SERVICE: 02/07/2021 REASON FOR FOLLOWUP: Right diabetic foot infection concerning for underlying abscess and osteomyelitis. INTERVAL HISTORY: The patient is afebrile. The patient is currently breathing comfortably. Denies having any chest pain, shortness of breath or cough. No abdominal pain or diarrhea. PHYSICAL EXAMINATION: Blood pressure 127/72 with a pulse of 58, temperature 98.2. He is 95% on room air. General description is a middle-aged male lying in bed in no distress. RESPIRATORY SYSTEM: Unlabored breathing. Clear to auscultation anteriorly. HEART: S1, S2. Regular rate and rhythm. ABDOMEN: Soft. No tenderness. Right foot is currently dressed. No obvious drainage on the dressing. DIAGNOSTIC IMPRESSION AND PLAN: Patient with a right diabetic foot ulcer, admitted to hospital with fever concerning for cellulitis, now with MRI suspicious for an abscess and osteomyelitis. Vascular Surgery has been consulted for I and D and drainage of the abscess and culture. That will determine his discharge antibiotics. Continue with the current antibiotic in the form of cefepime and vancomycin. Continue supportive care. MMODL / IJN: [id number] /
[2021-02-07 22:11] LABS: Glucose,Whole Blood 175 mg/dL (75-99)
[2021-02-07] MEDS: LATANOPROST 0.005% OPHTH DROPS 2.5 ML BTL BOTH EYES SCH (22:30)
[2021-02-07] MEDS: ATORVASTATIN 10 MG TAB PO SCH (22:30)
[2021-02-07] MEDS: NON FORMULARY DRUG (Morphine Pain Pump 1 DOSE) MISCELLANE SCH (22:34)
[2021-02-08] MEDS: CEFEPIME 2 GM in SODIUM CHLORIDE 0.9% 100 ML IVPB SCH ×3 (00:25→15:47)
[2021-02-08 06:43] LABS: Prothrombin Time 28.5 sec (9.0-12.0)
--- NOTE | 2021-02-08 07:19 | P.PN ---
Subjective Progress Note Date: 02/07/21 This is a 50-year-old male who was recently admitted with right foot diabetic ulcer and being closely monitored. Bone scan was done showing features of osteomyelitis and infectious disease following closely. Patient is maintained on IV antibiotics and vascular surgery Dr. Fuentes evaluated the patient recommending continuing with antibiotic therapy and keep follow-up appointment at [facility] with Dr. Coleman as scheduled next week. Foot MRI was ordered and currently pending. Cultures of the foot showing Sandra albicans with no other organism noted. Patient denies any chest pain, shortness of breath, or palpitations. Patient is afebrile. 02/06/2021 Patient is seen and evaluated in follow-up today feeling lethargic and fatigued today. Patient states he has been sleeping more today. Infectious disease following closely. Patient is continued on IV cefepime and will continue. Oral Diflucan as well as culture showing Sandra albicans. MRI of the foot yesterday shows findings consistent with neuropathic foot, Charcot foot with underlying osteomyelitis of the midfoot with multiple bones showing abnormal signals along with a plantar abscess that is present and synovitis. Vascular surgery Dr. Castillo consulted for possible I&D with deep tissue cultures. Patient does follow with Dr. Coleman in the outpatient setting who has been consulted and has not seen the patient. Patient is afebrile. No reports of nausea or vomiting and patient tolerating diet. Patient is on Coumadin and INR is 2.5 with pharmacy to dose. Recommend continue with Accu-Cheks and sliding scale along with scheduled insulins and long acting as well. 02/07/2021 Patient is evaluated this morning and awaiting consultation from vascular surgery for possible I&D with debridement of the right foot ulcer. Concern for possible abscess as noted on the MRI. Patient follows with Dr. Coleman in the outpatient. Consult has been placed. Patient continues on IV cefepime and ID following closely. Patient is also on coumadin and INR today is 3.2. Will hold coumadin. Review of systems: Constitutional: reports of fatigue today, no reports of fever, or chills Cardiovascular: No reports of chest pain or palpitations Respiratory: No reports of shortness of breath or cough GI: No reports of nausea, vomiting, or diarrhea : No reports of dysuria or retention Neurovascular: No reports of weakness or numbness, reports right foot pain All medications have been reviewed Active Medications Acetaminophen (Acetaminophen Tab 325 Mg Tab) 650 mg PO Q6HR PRN PRN Reason: Mild Pain or Fever > 100.5 Hydrocodone Bitart/Acetaminophen (Hydrocodone/Apap 5-325mg 1 Each Tab) 1 each PO Q4HR PRN PRN Reason: Moderate Pain Last Admin: 02/07/21 17:38 Dose: 1 each Documented by: Atorvastatin Calcium (Atorvastatin 10 Mg Tab) 10 mg PO HS [facility] Last Admin: 02/07/21 22:30 Dose: 10 mg Documented by: Carbamazepine (Carbamazepine Chew 100 Mg Chew) 100 mg PO Q12H [facility] Last Admin: 02/07/21 23:09 Dose: 100 mg Documented by: Cyclobenzaprine HCl (Cyclobenzaprine 10 Mg Tab) 10 mg PO Q8H PRN PRN Reason: Pain Duloxetine HCl (Duloxetine Hcl 60 Mg Capsule.) 60 mg PO DAILY [facility] Last Admin: 02/07/21 09:06 Dose: 60 mg Documented by: Duloxetine HCl (Duloxetine Hcl 30 Mg Capsule.) 30 mg PO BID [facility] Last Admin: 02/07/21 22:29 Dose: 30 mg Documented by: Ferrous Sulfate (Ferrous Sulfate 325 Mg Tab) 325 mg PO BID [facility] Last Admin: 02/07/21 22:30 Dose: 325 mg Documented by: Fluconazole (Fluconazole 100 Mg Tab) 100 mg PO DAILY [facility] Last Admin: 02/07/21 09:06 Dose: 100 mg Documented by: Fluticasone Propionate (Fluticasone 220 Mcg Inhaler) 2 puff INHALATION RT-BID [facility] Last Admin: 02/07/21 19:09 Dose: 2 puff Documented by: Furosemide (Furosemide 40 Mg Tab) 40 mg PO DAILY [facility] Last Admin: 02/07/21 09:06 Dose: 40 mg Documented by: Cefepime HCl 2 gm/ Sodium (Chloride) 100 mls @ 25 mls/hr IVPB Q8HR [facility] Last Admin: 02/08/21 00:25 Dose: 25 mls/hr Documented by: Insulin Aspart (Insulin Aspart (Novolog) 100 Unit/Ml Vial) 22 unit SQ AC-SUPPER [facility] Last Admin: 02/07/21 17:34 Dose: Not Given Documented by: Insulin Aspart (Insulin Aspart (Novolog) 100 Unit/Ml Vial) 15 unit SQ AC-LUNCH [facility] Last Admin: 02/07/21 13:25 Dose: 5 unit Documented by: Insulin Aspart (Insulin Aspart (Novolog) 100 Unit/Ml Vial) 8 unit SQ AC-BRKFST [facility] Last Admin: 02/07/21 07:31 Dose: Not Given Documented by: Insulin Detemir (Insulin Detemir (Levemir) 100 Unit/Ml Syr) 50 unit SQ BID [facility] Last Admin: 02/07/21 22:30 Dose: 50 unit Documented by: Latanoprost (Latanoprost 0.005% Ophth Drops 2.5 Ml Btl) 1 drops BOTH EYES HS [facility] Last Admin: 02/07/21 22:30 Dose: 1 drops Documented by: Loratadine (Loratadine 10 Mg Tab) 10 mg PO DAILY [facility] Last Admin: 02/07/21 09:06 Dose: 10 mg Documented by: Metformin HCl (Metformin 500 Mg Tab) 1,000 mg PO BID [facility] Last Admin: 02/07/21 22:30 Dose: 1,000 mg Documented by: Naloxone HCl (Naloxone 0.4 Mg/Ml 1 Ml Vial) 0.2 mg IV Q2M PRN PRN Reason: Opioid Reversal Non-Formulary Medication (Morphine Pain Pump) 1 dose MISCELLANE CONTINUOUS [facility] Last Admin: 02/07/21 22:34 Dose: Not Given Documented by: Ondansetron HCl (Ondansetron 4 Mg/2 Ml Vial) 4 mg IVP Q8HR PRN PRN Reason: Nausea And Vomiting Pantoprazole Sodium (Pantoprazole 40 Mg Tablet) 40 mg PO AC-BID [facility] Last Admin: 02/07/21 17:37 Dose: 40 mg Documented by: Potassium Chloride (Potassium Chloride Er 20 Meq Tab.Er) 20 meq PO DAILY [facility] Last Admin: 02/07/21 09:06 Dose: 20 meq Documented by: Pregabalin (Pregabalin 100 Mg Cap) 200 mg PO BID [facility] Last Admin: 02/07/21 22:30 Dose: 200 mg Documented by: Sumatriptan Succinate (Sumatriptan Succinate 50 Mg Tab) 50 mg PO DAILY PRN PRN Reason: Migraine Headache Physical exam: Gen: This is a 50-year-old male awake, alert and oriented 3 in well-developed, well-nourished, morbidly obese. Temp is 98.3F, pulse is 76, respirations are 18, blood pressure is 134/76, oxygen saturation is 97% on 2 L via nasal cannula. HEENT: Head is atraumatic, normocephalic. Pupils equal, round. Sclerae is anicteric. NECK: Supple. No JVD. No lymphadenopathy. No thyromegaly. LUNGS: Breath sounds diminished bilaterally with a few scattered rhonchi noted. No intercostal retractions. HEART: S1, S2 are muffled ABDOMEN: Soft. Bowel sounds are present. No masses. No tenderness. EXTREMITIES: No pedal edema. No calf tenderness. Right foot plantar ulcer noted. Speedy wrappings of bilateral lower extremities noted with continued generalized edema NEUROLOGICAL: Patient is awake, alert and oriented x3. No focal deficits. Assessment: Right foot diabetic ulcer and cellulitis as well as sepsis, present on admiss ion, with acute osteomyelitis and possible abscess Right Charcot's foot Anemia, possible anemia of chronic disease Hyponatremia Diabetes mellitus type 2 Elevated CRP History of DVT History of gastroesophageal reflux disease Hypertension Hyperlipidemia History of degenerative joint disease History of obstructive sleep apnea History of factor 5 L deficiency next line history of environmental ALLERGIES History of back pain History of tonsillectomy history of anxiety, depression Morbid obesity with a body mass index of 47.8 Full code Plan: Recommend continue with current medications, management, and symptomatic treatment. Patient is continued on IV antibiotics in the form of cefepime and will continue at this time. Oral Diflucan as well as initial wound culture finalized showing Sandra albicans. Infectious disease following closely. Vascular surgery reconsulted as MRI of the foot shows a plantar abscess and synovitis and awaiting consult. Dr. Castillo evaluated the patient and planned for possible I&D and deep tissue cultures after INR has come down for possible Wednesday and DR. Coleman notified nursing staff that he would be in this evening to evaluate the patient and also mentioned he was never notified of the consult that was placed last week. He told nursing staff that he would prefer that no one does any surgical intervention on the patient and that he will be in today. Dr. Castillo signed off. Will discuss with infectious disease about treatment plan moving forward. Hold coumadin for now and repeat am labs. INR is 3.2 Due to multiple complex medical issues, prognosis is guarded. Objective - Vital Signs Vital signs: Vital Signs Temp 98.3 F 02/07/21 04:28 Pulse 76 02/07/21 04:28 Resp 18 02/07/21 04:28 BP 134/76 02/07/21 04:28 Pulse Ox 100 02/07/21 07:44 Intake & Output 02/06/21 02/07/21 02/07/21 18:59 06:59 18:59 Intake Total 125 690 Balance 125 690 Intake: Intake, IV Titration 125 Amount Cefepime 2 gm In Sodium 125 Chloride 0.9% 100 ml @ 25 mls/hr IVPB Q8HR [facility] Rx# :[id number] Oral 690 Other: Voiding Method Toilet # Voids 2 - Labs CBC & Chem 7: 02/01/21 07:26 02/02/21 08:03 Labs: Abnormal Lab Results - Last 24 Hours (Table) 02/06/21 02/06/21 02/06/21 Range/Units 11:13 17:16 19:52 PT (9.0-12.0) sec INR (<1.2) POC Glucose (mg/dL) 143 H 142 H 155 H (75-99) mg/dL 02/07/21 02/07/21 Range/Units 06:19 07:06 PT 30.6 H (9.0-12.0) sec INR 3.2 H (<1.2) POC Glucose (mg/dL) 126 H (75-99) mg/dL Microbiology - Last 24 Hours (Table) 01/31/21 13:00 Blood Culture - Final Blood No Growth after 144 hours 01/31/21 13:15 Blood Culture - Final Blood No Growth after 144 hours
[2021-02-08 07:33] LABS: Anisocytosis Slight; Basophils # (A) 0.1 k/uL (0-0.2); Basophils % (A) 1 %; Eosinophils # (A) 0.5 k/uL (0-0.7); Eosinophils % (A) 8 %; HCT 34.8 % (39.0-53.0); HGB 11.7 gm/dL (13.0-17.5); Lymphocytes % (A) 17 %; MCH 27.1 pg (25.0-35.0); MCHC 33.6 g/dL (31.0-37.0); MCV 80.8 fL (80.0-100.0); Mean Platelet Volume 8.4; Monocytes # (A) 0.5 k/uL (0-1.0); Monocytes % (A) 9 %; Neutrophils % (A) 64 %; Platelet Count 278 k/uL (150-450); RBC 4.31 m/uL (4.30-5.90); RDW 16.4 % (11.5-15.5); WBC 6.3 k/uL (3.8-10.6)
[2021-02-08] MEDS: FLUTICASONE 220 MCG INHALER INHALATION SCH ×2 (07:53→19:19)
[2021-02-08 08:04] LABS: Glucose,Whole Blood 127 mg/dL (75-99)
[2021-02-08] MEDS: INSULIN ASPART (NovoLOG) 100 UNIT/ML VIAL SQ SCH ×3 (08:17→18:23)
[2021-02-08 08:25] LABS: African American GFR (CKD) >90 (>60 ml/min/1.73 sqM); Anion Gap 11 mmol/L; Blood Urea Nitrogen 32 mg/dL (9-20); Carbon Dioxide 32 mmol/L (22-30); Chloride 95 mmol/L (98-107); Glucose 127 mg/dL (74-99); Non-African American GFR(CKD) >90 (>60 ml/min/1.73 sqM); Potassium 4.5 mmol/L (3.5-5.1); Sodium 138 mmol/L (137-145)
[2021-02-08] MEDS: PANTOPRAZOLE 40 MG TABLET PO SCH ×2 (08:46→18:23)
[2021-02-08] MEDS: INSULIN DETEMIR (LEVEMIR) 100 UNIT/ML SYR SQ SCH ×2 (08:48→21:28)
[2021-02-08] MEDS: PREGABALIN 100 MG CAP PO SCH ×2 (08:49→21:28)
[2021-02-08] MEDS: metFORMIN 500 MG TAB PO SCH ×2 (08:49→21:29)
[2021-02-08] MEDS: FLUCONAZOLE 100 MG TAB PO SCH (08:49)
[2021-02-08] MEDS: FERROUS SULFATE 325 MG TAB PO SCH ×2 (08:49→21:28)
[2021-02-08] MEDS: POTASSIUM CHLORIDE ER 20 MEQ TAB.ER PO SCH (08:49)
[2021-02-08] MEDS: DULoxetine HCL 60 MG CAPSULE.DR PO SCH (08:49)
[2021-02-08] MEDS: FUROSEMIDE 40 MG TAB PO SCH (08:49)
[2021-02-08] MEDS: LORATADINE 10 MG TAB PO SCH (08:49)
[2021-02-08 11:28] LABS: Glucose,Whole Blood 173 mg/dL (75-99)
--- NOTE | 2021-02-08 15:49 | PN ---
PROGRESS NOTE DATE OF SERVICE: 02/08/2021 This 50-year-old gentleman with significant ulceration of the right foot and suspected osteomyelitis abscess and cellulitis is being closely monitored at this time. No chest pain. No palpitations. No fever. PHYSICAL EXAMINATION: Alert, and oriented times three. Pulse 90. Blood pressure 104/52. Respirations 16. Temperature 98.7, pulse ox 94% on room air. HEENT: Conjunctivae normal. NECK: No JVD. CARDIOVASCULAR: S1, S2 muffled. RESPIRATIONS: Breath sounds diminished in the bases. A few scattered rhonchi and crackles. ABDOMEN: Soft, nontender. NERVOUS SYSTEM: No focal deficits. Right leg ulcer present. LAB STUDIES: WBC 6.9, hemoglobin 11.7, sodium 130, potassium 4.5. ASSESSMENT: 1. Right foot diabetic ulcer with cellulitis status post sepsis present on admission with possible acute osteomyelitis and possible abscess and MRI scan. 2. Right Charcot foot. 3. Anemia, possibly anemia of chronic disease. 4. Hyponatremia. 5. Diabetes mellitus type 2. 6. Elevated CRP. 7. History of deep vein thrombosis. 8. History of gastroesophageal reflux disease. 9. Hypertension. 10.Hyperlipidemia. 11.History of degenerative joint disease. 12.History of obstructive sleep apnea. 13.History of factor 5 Leiden deficiency. 14.History of environmental allergies. 15.History of back pain. 16.History of tonsillectomy. 17.History of anxiety, depression. 18.Morbid obesity with body mass index 47.8. 19.FULL CODE. RECOMMENDATIONS AND DISCUSSION: Continue current medications, management and symptomatic treatment. Continue the antibiotics. Closely follow with Dr. Lang, who would the surgery to have debridement. The patient apparently would like to go back to his original physician. We will continue to monitor over the weekend and review on Wednesday. Further recommendations to follow. MMODL / IJN: [id number] /
[2021-02-08 17:33] LABS: Glucose,Whole Blood 145 mg/dL (75-99)
--- NOTE | 2021-02-08 18:24 | PN ---
PROGRESS NOTE DATE OF SERVICE: 02/08/2021. REASON FOR FOLLOWUP: Right diabetic foot infection concerning for underlying abscess. INTERVAL HISTORY: Patient is afebrile. The patient is currently breathing comfortably. The patient denies having any chest pain, shortness of breath or cough. No abdominal pain on any worsening pain to the right. The patient has been evaluated by his vocational guidance counselor and has advised him to followup with surgeon at [facility] instead of having surgery done here. PHYSICAL EXAMINATION: Blood pressure is 104/52 with a pulse of 90, temperature 97.5, he is 95% on room air. General description is a middle-aged male up in the chair in no distress. Respiratory system: Unlabored breathing, clear to auscultation anteriorly. Heart S1, S2. Regular rate and rhythm. Abdomen soft, no tenderness. Right foot is currently dressed. No obvious drainage on the dressing. LABS: Hemoglobin 11.1, white count 6.3, creatinine 0.91. DIAGNOSTIC IMPRESSION AND PLAN: Patient with right diabetic foot infection with underlying abscess. The patient did have Charcot deformity and needed drainage of this abscess to determine discharge antibiotics. However, he has been told by his vocational guidance counselor not to have any surgeon in here and he should go to see his surgeon at [facility], the patient refused any surgical procedure tomorrow. Will recommend transferring him to [facility] to be evaluated by surgeon as per request of Dr. Coleman. Continue current antibiotics and monitor clinical course closely. MMODL / IJN: [id number] /
[2021-02-08 20:24] LABS: Glucose,Whole Blood 171 mg/dL (75-99)
[2021-02-08] MEDS: ATORVASTATIN 10 MG TAB PO SCH (21:28)
[2021-02-08] MEDS: DULoxetine HCL 30 MG CAPSULE.DR PO SCH (21:28)
[2021-02-08] MEDS: NON FORMULARY DRUG (Morphine Pain Pump 1 DOSE) MISCELLANE SCH (21:29)
[2021-02-08] MEDS: LATANOPROST 0.005% OPHTH DROPS 2.5 ML BTL BOTH EYES SCH (21:30)
[2021-02-09] MEDS: CEFEPIME 2 GM in SODIUM CHLORIDE 0.9% 100 ML IVPB SCH ×4 (00:12→23:37)
[2021-02-09 05:26] LABS: INR 2.1 (<1.2); Prothrombin Time 20.7 sec (9.0-12.0)
[2021-02-09 07:32] LABS: Glucose,Whole Blood 87 mg/dL (75-99)
[2021-02-09] MEDS: INSULIN ASPART (NovoLOG) 100 UNIT/ML VIAL SQ SCH ×3 (07:34→17:28)
[2021-02-09] MEDS: PANTOPRAZOLE 40 MG TABLET PO SCH ×2 (07:39→07:40)
[2021-02-09] MEDS: DULoxetine HCL 60 MG CAPSULE.DR PO SCH (07:40)
[2021-02-09] MEDS: DULoxetine HCL 30 MG CAPSULE.DR PO SCH ×2 (07:40→21:07)
[2021-02-09] MEDS: FERROUS SULFATE 325 MG TAB PO SCH ×2 (07:40→21:07)
[2021-02-09] MEDS: FLUCONAZOLE 100 MG TAB PO SCH (07:40)
[2021-02-09] MEDS: POTASSIUM CHLORIDE ER 20 MEQ TAB.ER PO SCH (07:41)
[2021-02-09] MEDS: FUROSEMIDE 40 MG TAB PO SCH (07:41)
[2021-02-09] MEDS: PREGABALIN 100 MG CAP PO SCH ×2 (07:41→21:07)
[2021-02-09] MEDS: LORATADINE 10 MG TAB PO SCH (07:41)
[2021-02-09] MEDS: INSULIN DETEMIR (LEVEMIR) 100 UNIT/ML SYR SQ SCH ×2 (07:41→21:08)
[2021-02-09] MEDS: metFORMIN 500 MG TAB PO SCH ×2 (07:41→21:07)
[2021-02-09] MEDS: FLUTICASONE 220 MCG INHALER INHALATION SCH ×2 (08:04→20:56)
[2021-02-09 12:05] LABS: Glucose,Whole Blood 100 mg/dL (75-99)
[2021-02-09 16:52] LABS: Glucose,Whole Blood 128 mg/dL (75-99)
--- NOTE | 2021-02-09 18:57 | PN ---
PROGRESS NOTE DATE OF SERVICE: 02/09/2021 This 50-year-old gentleman who was admitted with a right foot diabetic ulcer status post sepsis was admitted with possible osteomyelitis and abscess also suspected on MRI scan. Multiple consultants are following the patient closely. Currently the patient is recommended to follow up with [facility]. No chest pain. No palpitations. No fever. PHYSICAL EXAMINATION: Alert and oriented x3. Pulse is 74, blood pressure 197/67, respiration 18, temperature 98.4, pulse ox 94% on room air. HEENT: Conjunctivae normal. NECK: No jugular venous distention. CARDIOVASCULAR: S1, S2 muffled. RESPIRATION: Breath sounds diminished at the bases. Scattered rhonchi. ABDOMEN: Soft. NERVOUS SYSTEM: No focal deficit. LABS: WBC 6.6, hemoglobin 11.7. ASSESSMENT: 1. Right foot diabetic ulcer with cellulitis, status post sepsis, present on admission, with possible acute osteomyelitis, possible abscess on MRI scan. 2. Right Charcot foot. 3. Anemia, possibly anemia of chronic disease. 4. Hyponatremia. 5. Diabetes mellitus, type 2. 6. Elevated CRP. 7. History of deep vein thrombosis. 8. History of gastroesophageal reflux disease. 9. Hypertension. 10.Hyperlipidemia. 11.History of degenerative joint disease. 12.History of obstructive sleep apnea. 13.History of factor V Leiden deficiency. 14.History of environmental allergies. 15.History of back pain. 16.History of tonsillectomy. 17.History of anxiety, depression. 18.Morbid obesity, body mass index of 47.8. 19.FULL CODE. RECOMMENDATIONS AND DISCUSSION: I recommend to continue current medications, continue with monitoring, symptomatic treatment. Otherwise, at this time I recommend repeat labs. Closely follow with Infectious Disease. Guarded prognosis. Further recommendations to follow. The patient is to follow up with patient's own physicians in [facility]. MMODL / IJN: [id number] /
[2021-02-09 20:24] LABS: Glucose,Whole Blood 168 mg/dL (75-99)
[2021-02-09] MEDS: ATORVASTATIN 10 MG TAB PO SCH (21:07)
[2021-02-09] MEDS: NON FORMULARY DRUG (Morphine Pain Pump 1 DOSE) MISCELLANE SCH (21:09)
[2021-02-09] MEDS: LATANOPROST 0.005% OPHTH DROPS 2.5 ML BTL BOTH EYES SCH (21:09)
--- NOTE | 2021-02-10 00:23 | PN ---
PROGRESS NOTE DATE OF SERVICE: 02/09/2021 REASON FOR FOLLOWUP: Right diabetic foot infection with underlying abscess. INTERVAL HISTORY: Patient is afebrile. He is breathing comfortably. Denies any chest pain. No shortness of breath or cough. No vomiting. No abdominal pain or diarrhea. PHYSICAL EXAMINATION: Blood pressure is 124/76, pulse of 72, temperature 98.8. He is 95% on room air. Description is a middle-aged male up in the chair in no distress. Respiratory system: Unlabored breathing, clear to auscultation anteriorly. Heart S1, S2. Regular rate and rhythm. Abdomen soft, no tenderness. Right leg redness has resolved. Foot is currently dressed. No drainage on the dressing. LABS: INR is 2.1. DIAGNOSTIC IMPRESSION AND PLAN: Patient admitted to hospital with a fever, concern for right lower extremity cellulitis in this patient who does have underlying Charcot deformity and nonhealing ulcer on the plantar aspect of the right foot. CT has been suggestive of an abscess. The patient did drainage of the abscess to determine his discharge antibiotics. The patient wanted to be transferred to [place] as he was instructed by his procedures rn not to have surgery done here. Continue supportive care. MMODL / IJN: [id number] /
[2021-02-10 07:32] LABS: Anisocytosis Slight; Basophils # (A) 0.1 k/uL (0-0.2); Basophils % (A) 1 %; Eosinophils # (A) 0.5 k/uL (0-0.7); Eosinophils % (A) 7 %; HCT 34.6 % (39.0-53.0); HGB 11.2 gm/dL (13.0-17.5); Lymphocytes # (A) 1.1 k/uL (1.0-4.8); Lymphocytes % (A) 16 %; MCH 26.5 pg (25.0-35.0); MCHC 32.3 g/dL (31.0-37.0); Mean Platelet Volume 8.6; Monocytes # (A) 0.6 k/uL (0-1.0); Monocytes % (A) 10 %; Neutrophils # (A) 4.1 k/uL (1.3-7.7); Neutrophils % (A) 64 %; Platelet Count 231 k/uL (150-450); RBC 4.22 m/uL (4.30-5.90); RDW 16.2 % (11.5-15.5); WBC 6.4 k/uL (3.8-10.6)
[2021-02-10 07:33] LABS: Glucose,Whole Blood 89 mg/dL (75-99)
[2021-02-10 07:42] LABS: INR 1.3 (<1.2); Prothrombin Time 13.7 sec (9.0-12.0)
[2021-02-10 07:48] LABS: African American GFR (CKD) >90 (>60 ml/min/1.73 sqM); Anion Gap 9 mmol/L; Blood Urea Nitrogen 35 mg/dL (9-20); Calcium 10.1 mg/dL (8.4-10.2); Carbon Dioxide 33 mmol/L (22-30); Chloride 95 mmol/L (98-107); Glucose 91 mg/dL (74-99); Non-African American GFR(CKD) >90 (>60 ml/min/1.73 sqM); Potassium 4.2 mmol/L (3.5-5.1); Sodium 137 mmol/L (137-145)
[2021-02-10] MEDS: FLUTICASONE 220 MCG INHALER INHALATION SCH ×2 (07:56→19:46)
[2021-02-10] MEDS: DULoxetine HCL 60 MG CAPSULE.DR PO SCH (09:03)
[2021-02-10] MEDS: metFORMIN 500 MG TAB PO SCH ×2 (09:03→20:25)
[2021-02-10] MEDS: FLUCONAZOLE 100 MG TAB PO SCH (09:03)
[2021-02-10] MEDS: PREGABALIN 100 MG CAP PO SCH ×2 (09:03→20:25)
[2021-02-10] MEDS: DULoxetine HCL 30 MG CAPSULE.DR PO SCH ×2 (09:03→20:25)
[2021-02-10] MEDS: POTASSIUM CHLORIDE ER 20 MEQ TAB.ER PO SCH (09:03)
[2021-02-10] MEDS: FUROSEMIDE 40 MG TAB PO SCH (09:03)
[2021-02-10] MEDS: LORATADINE 10 MG TAB PO SCH (09:03)
[2021-02-10] MEDS: INSULIN DETEMIR (LEVEMIR) 100 UNIT/ML SYR SQ SCH ×2 (09:04→20:28)
[2021-02-10] MEDS: PANTOPRAZOLE 40 MG TABLET PO SCH ×2 (09:04→18:17)
[2021-02-10] MEDS: FERROUS SULFATE 325 MG TAB PO SCH ×2 (09:04→20:26)
[2021-02-10] MEDS: CEFEPIME 2 GM in SODIUM CHLORIDE 0.9% 100 ML IVPB SCH ×3 (09:06→23:58)
[2021-02-10] MEDS: INSULIN ASPART (NovoLOG) 100 UNIT/ML VIAL SQ SCH ×3 (09:06→18:18)
[2021-02-10 11:35] LABS: Glucose,Whole Blood 129 mg/dL (75-99)
[2021-02-10 17:20] LABS: Glucose,Whole Blood 166 mg/dL (75-99)
--- NOTE | 2021-02-10 19:05 | PN ---
PROGRESS NOTE DATE OF SERVICE: 02/10/2021 REASON FOR FOLLOWUP VISIT: Right diabetic foot infection with abscess. INTERVAL HISTORY: The patient is afebrile. The patient is breathing comfortably. The patient denies having any chest pain. No shortness of breath or cough. No nausea or vomiting. No abdominal pain. No worsening pain to the right foot. EXAMINATION: Blood pressure 145/77 with a pulse 76, temperature 97.6. He is 97% on room air. General description is a middle-aged male up in the chair in no distress. Respiratory system: Unlabored breathing, clear to auscultation anteriorly. Heart S1, S2. Regular rate and rhythm. Right foot is currently dressed, no obvious drainage on the dressing. LABS: No new labs have been obtained today. DIAGNOSTIC IMPRESSION AND PLAN: Patient with a right Charcot foot concerning for underlying abscess. The patient is currently waiting for transfer to [place] to be evaluated by Orthopedic Surgeon for Charcot foot and drainage of the abscess. On empiric cefepime, to continue. Monitor clinical course closely. MMODL / IJN: [id number] /
[2021-02-10] MEDS: NON FORMULARY DRUG (Morphine Pain Pump 1 DOSE) MISCELLANE SCH (20:10)
[2021-02-10] MEDS: ATORVASTATIN 10 MG TAB PO SCH (20:26)
[2021-02-10] MEDS: LATANOPROST 0.005% OPHTH DROPS 2.5 ML BTL BOTH EYES SCH (20:27)
[2021-02-10 20:37] LABS: Glucose,Whole Blood 214 mg/dL (75-99)
--- NOTE | 2021-02-11 02:52 | P.PN ---
Subjective Progress Note Date: 02/10/21 This is a 50-year-old male who was recently admitted with right foot diabetic ulcer and being closely monitored. Bone scan was done showing features of osteomyelitis and infectious disease following closely. Patient is maintained on IV antibiotics and vascular surgery Dr. Fuentes evaluated the patient recommending continuing with antibiotic therapy and keep follow-up appointment at [facility] with Dr. Coleman as scheduled next week. Foot MRI was ordered and currently pending. Cultures of the foot showing Sandra albicans with no other organism noted. Patient denies any chest pain, shortness of breath, or palpitations. Patient is afebrile. 02/06/2021 Patient is seen and evaluated in follow-up today feeling lethargic and fatigued today. Patient states he has been sleeping more today. Infectious disease following closely. Patient is continued on IV cefepime and will continue. Oral Diflucan as well as culture showing Sandra albicans. MRI of the foot yesterday shows findings consistent with neuropathic foot, Charcot foot with underlying osteomyelitis of the midfoot with multiple bones showing abnormal signals along with a plantar abscess that is present and synovitis. Vascular surgery Dr. Castillo consulted for possible I&D with deep tissue cultures. Patient does follow with Dr. Coleman in the outpatient setting who has been consulted and has not seen the patient. Patient is afebrile. No reports of nausea or vomiting and patient tolerating diet. Patient is on Coumadin and INR is 2.5 with pharmacy to dose. Recommend continue with Accu-Cheks and sliding scale along with scheduled insulins and long acting as well. 02/07/2021 Patient is evaluated this morning and awaiting consultation from vascular surgery for possible I&D with debridement of the right foot ulcer. Concern for possible abscess as noted on the MRI. Patient follows with Dr. Coleman in the outpatient. Consult has been placed. Patient continues on IV cefepime and ID following closely. Patient is also on coumadin and INR today is 3.2. Will hold coumadin. 02/10/2021 Patient is seen this morning in follow up and continues on IV cefepime. His primary thai masseur Dr. Coleman following and recommending no surgical intervention or I&D here as patient follows closely out of [facility] and is tentative ly scheduled for surgery on 02/18 of the right foot. There is a questionable abscess noted on MRI and ID following closely recommending I&D with deep cultures to determine proper discharge antibiotics. Patient is refusing per the direction of his primary physicians. Case management following and initiating the process for transfer to [place] for surgical evaluation and I&D of the right foot abscess. Labs within normal limits today. Review of systems: Constitutional: no reports of fatigue today, no reports of fever, or chills Cardiovascular: No reports of chest pain or palpitations Respiratory: No reports of shortness of breath or cough GI: No reports of nausea, vomiting, or diarrhea : No reports of dysuria or retention Neurovascular: No reports of weakness or numbness, reports right foot pain All medications have been reviewed Active Medications Acetaminophen (Acetaminophen Tab 325 Mg Tab) 650 mg PO Q6HR PRN PRN Reason: Mild Pain or Fever > 100.5 Hydrocodone Bitart/Acetaminophen (Hydrocodone/Apap 5-325mg 1 Each Tab) 1 each PO Q4HR PRN PRN Reason: Moderate Pain Last Admin: 02/07/21 17:38 Dose: 1 each Documented by: Atorvastatin Calcium (Atorvastatin 10 Mg Tab) 10 mg PO HS [facility] Last Admin: 02/09/21 21:07 Dose: 10 mg Documented by: Carbamazepine (Carbamazepine Chew 100 Mg Chew) 100 mg PO Q12H [facility] Last Admin: 02/10/21 09:04 Dose: 100 mg Documented by: Cyclobenzaprine HCl (Cyclobenzaprine 10 Mg Tab) 10 mg PO Q8H PRN PRN Reason: Pain Duloxetine HCl (Duloxetine Hcl 60 Mg Capsule.) 60 mg PO DAILY [facility] Last Admin: 02/10/21 09:03 Dose: 60 mg Documented by: Duloxetine HCl (Duloxetine Hcl 30 Mg Capsule.) 30 mg PO BID [facility] Last Admin: 02/10/21 09:03 Dose: 30 mg Documented by: Ferrous Sulfate (Ferrous Sulfate 325 Mg Tab) 325 mg PO BID [facility] Last Admin: 02/10/21 09:04 Dose: 325 mg Documented by: Fluconazole (Fluconazole 100 Mg Tab) 100 mg PO DAILY [facility] Last Admin: 02/10/21 09:03 Dose: 100 mg Documented by: Fluticasone Propionate (Fluticasone 220 Mcg Inhaler) 2 puff INHALATION RT-BID [facility] Last Admin: 02/10/21 07:56 Dose: 2 puff Documented by: Furosemide (Furosemide 40 Mg Tab) 40 mg PO DAILY [facility] Last Admin: 02/10/21 09:03 Dose: 40 mg Documented by: Cefepime HCl 2 gm/ Sodium (Chloride) 100 mls @ 25 mls/hr IVPB Q8HR [facility] Last Admin: 02/10/21 09:06 Dose: 25 mls/hr Documented by: Insulin Aspart (Insulin Aspart (Novolog) 100 Unit/Ml Vial) 22 unit SQ AC-SUPPER [facility] Last Admin: 02/09/21 17:28 Dose: Not Given Documented by: Insulin Aspart (Insulin Aspart (Novolog) 100 Unit/Ml Vial) 15 unit SQ AC-LUNCH [facility] Last Admin: 02/09/21 16:34 Dose: Not Given Documented by: Insulin Aspart (Insulin Aspart (Novolog) 100 Unit/Ml Vial) 8 unit SQ AC-BRKFST [facility] Last Admin: 02/10/21 09:06 Dose: Not Given Documented by: Insulin Detemir (Insulin Detemir (Levemir) 100 Unit/Ml Syr) 50 unit SQ BID [facility] Last Admin: 02/10/21 09:04 Dose: 50 unit Documented by: Latanoprost (Latanoprost 0.005% Ophth Drops 2.5 Ml Btl) 1 drops BOTH EYES HS [facility] Last Admin: 02/09/21 21:09 Dose: 1 drops Documented by: Loratadine (Loratadine 10 Mg Tab) 10 mg PO DAILY [facility] Last Admin: 02/10/21 09:03 Dose: 10 mg Documented by: Metformin HCl (Metformin 500 Mg Tab) 1,000 mg PO BID [facility] Last Admin: 02/10/21 09:03 Dose: 1,000 mg Documented by: Naloxone HCl (Naloxone 0.4 Mg/Ml 1 Ml Vial) 0.2 mg IV Q2M PRN PRN Reason: Opioid Reversal Non-Formulary Medication (Morphine Pain Pump) 1 dose MISCELLANE CONTINUOUS [facility] Last Admin: 02/09/21 21:09 Dose: 1 dose Documented by: Ondansetron HCl (Ondansetron 4 Mg/2 Ml Vial) 4 mg IVP Q8HR PRN PRN Reason: Nausea And Vomiting Pantoprazole Sodium (Pantoprazole 40 Mg Tablet) 40 mg PO AC-BID [facility] Last Admin: 02/10/21 09:04 Dose: 40 mg Documented by: Potassium Chloride (Potassium Chloride Er 20 Meq Tab.Er) 20 meq PO DAILY [facility] Last Admin: 02/10/21 09:03 Dose: 20 meq Documented by: Pregabalin (Pregabalin 100 Mg Cap) 200 mg PO BID [facility] Last Admin: 02/10/21 09:03 Dose: 200 mg Documented by: Sumatriptan Succinate (Sumatriptan Succinate 50 Mg Tab) 50 mg PO DAILY PRN PRN Reason: Migraine Headache Physical exam: Gen: This is a 50-year-old male awake, alert and oriented 3 in well-developed, well-nourished, morbidly obese. HEENT: Head is atraumatic, normocephalic. Pupils equal, round. Sclerae is anicteric. NECK: Supple. No JVD. No lymphadenopathy. No thyromegaly. LUNGS: Breath sounds diminished bilaterally with a few scattered rhonchi noted. No intercostal retractions. HEART: S1, S2 are muffled ABDOMEN: Soft. Bowel sounds are present. No masses. No tenderness. EXTREMITIES: No pedal edema. No calf tenderness. Right foot plantar ulcer noted. Speedy wrappings of bilateral lower extremities noted with continued generalized edema NEUROLOGICAL: Patient is awake, alert and oriented x3. No focal deficits. Assessment: Right foot diabetic ulcer and cellulitis as well as sepsis, present on admission, with acute osteomyelitis and possible abscess Right Charcot's foot Anemia, possible anemia of chronic disease Hyponatremia Diabetes mellitus type 2 Elevated CRP History of DVT History of gastroesophageal reflux disease Hypertension Hyperlipidemia History of degenerative joint disease History of obstructive sleep apnea History of factor 5 L deficiency history of environmental ALLERGIES History of back pain History of tonsillectomy history of anxiety, depression Morbid obesity with a body mass index of 47.8 Full code Plan: Recommend continue with current medications, management, and symptomatic treatment. Patient is continued on IV antibiotics in the form of cefepime and will continue at this time. Infectious disease following closely. Unable to give recommendations of continued IV antibiotics as the MRI showed abscess of the right foot ulcer and would require deep tissue cultures for proper antibiotics. Dr. Coleman and patient refusing to have surgical intervention here and to continue with [facility] surgeon as scheduled on 02/18. INitiating transfer to [place] with case management following and awaiting on bed availability. Hold coumadin for now and INR is 1.3 Due to multiple complex medical issues, prognosis is guarded. Objective - Vital Signs Vital signs: Vital Signs Temp 98.1 F 02/10/21 05:00 Pulse 70 02/10/21 09:07 Resp 18 02/10/21 05:00 BP 126/74 02/10/21 09:07 Pulse Ox 94 L 02/10/21 05:00 Intake & Output 02/09/21 02/10/21 02/10/21 18:59 06:59 18:59 Intake Total 2520 337 Output Total 600 Balance 1920 337 Intake: Intake, IV Titration 100 100 Amount Cefepime 2 gm In Sodium 100 100 Chloride 0.9% 100 ml @ 25 mls/hr IVPB Q8HR [facility] Rx# :[id number] Oral 2420 237 Output: Urine 600 Other: Voiding Method Toilet Toilet # Voids 5 - Labs CBC & Chem 7: 02/10/21 06:54 02/10/21 06:54 Labs: Abnormal Lab Results - Last 24 Hours (Table) 02/09/21 02/09/21 02/09/21 Range/Units 11:50 16:47 20:23 RBC (4.30-5.90) m/uL Hgb (13.0-17.5) gm/dL Hct (39.0-53.0) % RDW (11.5-15.5) % PT (9.0-12.0) sec INR (<1.2) Chloride (98-107) mmol/L Carbon Dioxide (22-30) mmol/L BUN (9-20) mg/dL POC Glucose (mg/dL) 100 H 128 H 168 H (75-99) mg/dL 02/10/21 02/10/21 02/10/21 Range/Units 06:54 06:54 06:54 RBC 4.22 L (4.30-5.90) m/uL Hgb 11.2 L (13.0-17.5) gm/dL Hct 34.6 L (39.0-53.0) % RDW 16.2 H (11.5-15.5) % PT 13.7 H (9.0-12.0) sec INR 1.3 H (<1.2) Chloride 95 L (98-107) mmol/L Carbon Dioxide 33 H (22-30) mmol/L BUN 35 H (9-20) mg/dL POC Glucose (mg/dL) (75-99) mg/dL
[2021-02-11 06:11] LABS: INR 1.2 (<1.2); Prothrombin Time 12.2 sec (9.0-12.0)
[2021-02-11 07:03] LABS: Glucose,Whole Blood 83 mg/dL (75-99)
[2021-02-11] MEDS: PREGABALIN 100 MG CAP PO SCH ×2 (07:55→21:38)
[2021-02-11] MEDS: metFORMIN 500 MG TAB PO SCH ×2 (07:55→21:37)
[2021-02-11] MEDS: FLUCONAZOLE 100 MG TAB PO SCH (07:55)
[2021-02-11] MEDS: PANTOPRAZOLE 40 MG TABLET PO SCH ×2 (07:55→18:01)
[2021-02-11] MEDS: FUROSEMIDE 40 MG TAB PO SCH (07:55)
[2021-02-11] MEDS: DULoxetine HCL 60 MG CAPSULE.DR PO SCH (07:55)
[2021-02-11] MEDS: DULoxetine HCL 30 MG CAPSULE.DR PO SCH ×2 (07:55→21:37)
[2021-02-11] MEDS: LORATADINE 10 MG TAB PO SCH (07:55)
[2021-02-11] MEDS: POTASSIUM CHLORIDE ER 20 MEQ TAB.ER PO SCH (07:55)
[2021-02-11] MEDS: FERROUS SULFATE 325 MG TAB PO SCH ×2 (07:55→21:39)
[2021-02-11] MEDS: CEFEPIME 2 GM in SODIUM CHLORIDE 0.9% 100 ML IVPB SCH ×2 (07:55→16:14)
[2021-02-11] MEDS: INSULIN ASPART (NovoLOG) 100 UNIT/ML VIAL SQ SCH ×3 (07:56→18:01)
[2021-02-11] MEDS: INSULIN DETEMIR (LEVEMIR) 100 UNIT/ML SYR SQ SCH ×2 (07:56→22:02)
[2021-02-11] MEDS: FLUTICASONE 220 MCG INHALER INHALATION SCH ×2 (08:13→19:23)
[2021-02-11 11:25] LABS: Glucose,Whole Blood 105 mg/dL (75-99)
--- NOTE | 2021-02-11 13:07 | P.PN ---
<Opal Soliman - Last Filed: 02/11/21 12:59> Subjective Progress Note Date: 02/11/21 This is a 50-year-old male who was recently admitted with right foot diabetic ulcer and being closely monitored. Bone scan was done showing features of osteomyelitis and infectious disease following closely. Patient is maintained o n IV antibiotics and vascular surgery Dr. Fuentes evaluated the patient recommending continuing with antibiotic therapy and keep follow-up appointment at [facility] with Dr. Coleman as scheduled next week. Foot MRI was ordered and currently pending. Cultures of the foot showing Sandra albicans with no other organism noted. Patient denies any chest pain, shortness of breath, or palpitations. Patient is afebrile. 02/06/2021 Patient is seen and evaluated in follow-up today feeling lethargic and fatigued today. Patient states he has been sleeping more today. Infectious disease following closely. Patient is continued on IV cefepime and will continue. Oral Diflucan as well as culture showing Sandra albicans. MRI of the foot yesterday shows findings consistent with neuropathic foot, Charcot foot with underlying osteomyelitis of the midfoot with multiple bones showing abnormal signals along with a plantar abscess that is present and synovitis. Vascular surgery Dr. Castillo consulted for possible I&D with deep tissue cultures. Patient does follow with Dr. Coleman in the outpatient setting who has been consulted and has not seen the patient. Patient is afebrile. No reports of nausea or vomiting and patient tolerating diet. Patient is on Coumadin and INR is 2.5 with pharmacy to dose. Recommend continue with Accu-Cheks and sliding scale along with scheduled insulins and long acting as well. 02/07/2021 Patient is evaluated this morning and awaiting consultation from vascular surgery for possible I&D with debridement of the right foot ulcer. Concern for possible abscess as noted on the MRI. Patient follows with Dr. Coleman in the outpatient. Consult has been placed. Patient continues on IV cefepime and ID following closely. Patient is also on coumadin and INR today is 3.2. Will hold coumadin. 02/10/2021 Patient is seen this morning in follow up and continues on IV cefepime. His primary search engine optimizer Dr. Coleman following and recommending no surgical intervention or I&D here as patient follows closely out of [facility] and is tentatively scheduled for surgery on 02/18 of the right foot. There is a questionable abscess noted on MRI and ID following closely recommending I&D with deep cultures to determine proper discharge antibiotics. Patient is refusing per the direction of his primary physicians. Case management following and initiating the process for transfer to [place] for surgical evaluation and I&D of the right foot abscess. Labs within normal limits today. 02/11/2021 Patient is seen and evaluated in follow-up this morning with no acute overnight issues noted. Patient is continued on IV cefepime with infectious disease following closely. His management following closely and being updated daily on possible transfer to [place] as they continue to have no bed available thus far. Attempting to transfer as search engine optimizer and surgeon out of [place] recommending no surgical interventions here and would like to evaluate the patient and further assess for possible I&D and surgical intervention at their facility. Will need to discuss further with search engine optimizer along with surgeon about treatment plan moving forward as there continue to be no beds available. Patient normally on Cymbalta and Lyrica which has been resumed and states he is feeling "a little down today" per nursing staff. Patient denies any suicidal thoughts or ideations. Will consult psychiatry and appreciate input and possible recommendations on medications. Coumadin is on hold and INR today is 1.2. Review of systems: Constitutional: no reports of fatigue today, no reports of fever, or chills, reports feeling depressed Cardiovascular: No reports of chest pain or palpitations Respiratory: No reports of shortness of breath or cough GI: No reports of nausea, vomiting, or diarrhea : No reports of dysuria or retention Neurovascular: No reports of weakness or numbness, reports right foot pain All medications have been reviewed Active Medications Acetaminophen (Acetaminophen Tab 325 Mg Tab) 650 mg PO Q6HR PRN PRN Reason: Mild Pain or Fever > 100.5 Hydrocodone Bitart/Acetaminophen (Hydrocodone/Apap 5-325mg 1 Each Tab) 1 each PO Q4HR PRN PRN Reason: Moderate Pain Last Admin: 02/07/21 17:38 Dose: 1 each Documented by: Atorvastatin Calcium (Atorvastatin 10 Mg Tab) 10 mg PO HS [facility] Last Admin: 02/10/21 20:26 Dose: 10 mg Documented by: Carbamazepine (Carbamazepine Chew 100 Mg Chew) 100 mg PO Q12H [facility] Last Admin: 02/11/21 07:55 Dose: 100 mg Documented by: Cyclobenzaprine HCl (Cyclobenzaprine 10 Mg Tab) 10 mg PO Q8H PRN PRN Reason: Pain Duloxetine HCl (Duloxetine Hcl 60 Mg Capsule.Dr) 60 mg PO DAILY [facility] Last Admin: 02/11/21 07:55 Dose: 60 mg Documented by: Duloxetine HCl (Duloxetine Hcl 30 Mg Capsule.Dr) 30 mg PO BID [facility] Last Admin: 02/11/21 07:55 Dose: 30 mg Documented by: Enoxaparin Sodium (Enoxaparin 40 Mg/0.4 Ml Syringe) 40 mg SQ DAILY [facility] Ferrous Sulfate (Ferrous Sulfate 325 Mg Tab) 325 mg PO BID [facility] Last Admin: 02/11/21 07:55 Dose: 325 mg Documented by: Fluconazole (Fluconazole 100 Mg Tab) 100 mg PO DAILY [facility] Last Admin: 02/11/21 07:55 Dose: 100 mg Documented by: Fluticasone Propionate (Fluticasone 220 Mcg Inhaler) 2 puff INHALATION RT-BID [facility] Last Admin: 02/11/21 08:13 Dose: 2 puff Documented by: Furosemide (Furosemide 40 Mg Tab) 40 mg PO DAILY [facility] Last Admin: 02/11/21 07:55 Dose: 40 mg Documented by: Cefepime HCl 2 gm/ Sodium (Chloride) 100 mls @ 25 mls/hr IVPB Q8HR [facility] Last Admin: 02/11/21 07:55 Dose: 25 mls/hr Documented by: Insulin Aspart (Insulin Aspart (Novolog) 100 Unit/Ml Vial) 22 unit SQ AC-SUPPER [facility] Last Admin: 02/10/21 18:18 Dose: 10 unit Documented by: Insulin Aspart (Insulin Aspart (Novolog) 100 Unit/Ml Vial) 15 unit SQ AC-LUNCH [facility] Last Admin: 02/10/21 13:27 Dose: 5 unit Documented by: Insulin Aspart (Insulin Aspart (Novolog) 100 Unit/Ml Vial) 8 unit SQ AC-BRKFST [facility] Last Admin: 02/11/21 07:56 Dose: Not Given Documented by: Insulin Detemir (Insulin Detemir (Levemir) 100 Unit/Ml Syr) 50 unit SQ BID [facility] Last Admin: 02/11/21 07:56 Dose: 50 unit Documented by: Latanoprost (Latanoprost 0.005% Ophth Drops 2.5 Ml Btl) 1 drops BOTH EYES HS [facility] Last Admin: 02/10/21 20:27 Dose: 1 drops Documented by: Loratadine (Loratadine 10 Mg Tab) 10 mg PO DAILY [facility] Last Admin: 02/11/21 07:55 Dose: 10 mg Documented by: Metformin HCl (Metformin 500 Mg Tab) 1,000 mg PO BID [facility] Last Admin: 02/11/21 07:55 Dose: 1,000 mg Documented by: Naloxone HCl (Naloxone 0.4 Mg/Ml 1 Ml Vial) 0.2 mg IV Q2M PRN PRN Reason: Opioid Reversal Non-Formulary Medication (Morphine Pain Pump) 1 dose MISCELLANE CONTINUOUS [facility] Last Admin: 02/10/21 20:10 Dose: Not Given Documented by: Ondansetron HCl (Ondansetron 4 Mg/2 Ml Vial) 4 mg IVP Q8HR PRN PRN Reason: Nausea And Vomiting Pantoprazole Sodium (Pantoprazole 40 Mg Tablet) 40 mg PO AC-BID [facility] Last Admin: 02/11/21 07:55 Dose: 40 mg Documented by: Potassium Chloride (Potassium Chloride Er 20 Meq Tab.Er) 20 meq PO DAILY [facility] Last Admin: 02/11/21 07:55 Dose: 20 meq Documented by: Pregabalin (Pregabalin 100 Mg Cap) 200 mg PO BID [facility] Last Admin: 02/11/21 07:55 Dose: 200 mg Documented by: Sumatriptan Succinate (Sumatriptan Succinate 50 Mg Tab) 50 mg PO DAILY PRN PRN Reason: Migraine Headache Physical exam: Gen: This is a 50-year-old male awake, alert and oriented 3 in well-developed, well-nourished, morbidly obese. HEENT: Head is atraumatic, normocephalic. Pupils equal, round. Sclerae is anicteric. NECK: Supple. No JVD. No lymphadenopathy. No thyromegaly. LUNGS: Breath sounds diminished bilaterally with a few scattered rhonchi noted. No intercostal retractions. HEART: S1, S2 are muffled ABDOMEN: Soft. Bowel sounds are present. No masses. No tenderness. EXTREMITIES: No pedal edema. No calf tenderness. Right foot plantar ulcer noted. Speedy wrappings of bilateral lower extremities noted with continued generalized edema NEUROLOGICAL: Patient is awake, alert and oriented x3. No focal deficits. Assessment: Right foot diabetic ulcer and cellulitis as well as sepsis, present on admission, with acute osteomyelitis and possible abscess Right Charcot's foot Anemia, possible anemia of chronic disease Hyponatremia Diabetes mellitus type 2 Elevated CRP History of DVT History of gastroesophageal reflux disease Hypertension Hyperlipidemia History of degenerative joint disease History of obstructive sleep apnea History of factor 5 L deficiency history of environmental ALLERGIES History of back pain History of tonsillectomy history of anxiety, depression Morbid obesity with a body mass index of 47.8 DVT prophylaxis: Starting subcutaneous Lovenox as Coumadin is on hold Full code Plan: Recommend continue with current medications, management, and symptomatic treatment. Patient is continued on IV antibiotics in the form of cefepime and will continue at this time. Infectious disease following closely. Unable to give recommendations of continued IV antibiotics as the MRI showed abscess of the right foot ulcer and would require deep tissue cultures for proper antibiotics. Dr. Coleman and patient refusing to have surgical intervention here and to continue with [facility] surgeon as scheduled on 02/18. INitiating transfer to [place] with case management following and awaiting on bed availability. No beds available continued at [facility] in case management following an updating daily on bed availability. Hold coumadin for now and INR is 1.3. Will initiate Lovenox for DVT prophylaxis as Coumadin continues to be on hold. Patient is on Cymbalta and Lyrica and states having feelings of depression today although denies any suicidal ideation or thoughts of wanting to harm himself or others. Will consult psychiatry for further evaluation and appreciate recommendations on medications. Will repeat a.m. labs and continue to monitor closely. Due to multiple complex medical issues, prognosis is guarded. Objective - Vital Signs Vital signs: Vital Signs Temp 98.5 F 02/11/21 05:00 Pulse 70 02/11/21 07:56 Resp 18 02/11/21 05:00 BP 135/77 02/11/21 07:56 Pulse Ox 93 L 02/11/21 05:00 Intake & Output 02/10/21 02/11/21 02/11/21 18:59 06:59 18:59 Intake Total 200 Balance 200 Intake: Intake, IV Titration 200 Amount Cefepime 2 gm In Sodium 200 Chloride 0.9% 100 ml @ 25 mls/hr IVPB Q8HR [facility] Rx# :[id number] Other: # Voids 3 2 - Labs CBC & Chem 7: 02/10/21 06:54 02/10/21 06:54 Labs: Abnormal Lab Results - Last 24 Hours (Table) 02/10/21 02/10/21 02/10/21 Range/Units 11:28 17:17 20:35 PT (9.0-12.0) sec INR (<1.2) POC Glucose (mg/dL) 129 H 166 H 214 H (75-99) mg/dL 02/11/21 Range/Units 05:19 PT 12.2 H (9.0-12.0) sec INR 1.2 H (<1.2) POC Glucose (mg/dL) (75-99) mg/dL <Kenrick Medrano E - Last Filed: 02/11/21 21:04> Objective - Vital Signs Vital signs: Vital Signs Temp 98.1 F 02/11/21 20:30 Pulse 71 02/11/21 20:30 Resp 18 02/11/21 20:30 BP 118/68 02/11/21 20:30 Pulse Ox 97 02/11/21 20:30 Intake & Output 02/11/21 02/11/21 02/12/21 06:59 18:59 06:59 Intake Total 200 Balance 200 Intake: Intake, IV Titration 200 Amount Cefepime 2 gm In Sodium 200 Chloride 0.9% 100 ml @ 25 mls/hr IVPB Q8HR [facility] Rx# :[id number] Other: # Voids 2 4 - Labs CBC & Chem 7: 02/10/21 06:54 02/10/21 06:54 Labs: Abnormal Lab Results - Last 24 Hours (Table) 02/11/21 02/11/21 02/11/21 Range/Units 05:19 11:18 17:08 PT 12.2 H (9.0-12.0) sec INR 1.2 H (<1.2) POC Glucose (mg/dL) 105 H 140 H (75-99) mg/dL 02/11/21 Range/Units 20:52 PT (9.0-12.0) sec INR (<1.2) POC Glucose (mg/dL) 131 H (75-99) mg/dL
[2021-02-11] MEDS: ENOXAPARIN 40 MG/0.4 ML SYRINGE SQ SCH (13:21)
--- NOTE | 2021-02-11 13:27 | PN ---
PROGRESS NOTE DATE OF SERVICE: 02/11/2021 REASON FOR FOLLOWUP: Right diabetic foot infection with underlying abscess. INTERVAL HISTORY: Patient is afebrile. The patient is currently breathing comfortably. Denies having any chest pain, shortness of breath or cough. No nausea, vomiting, abdominal pain. No pain to the right foot. Currently waiting for transfer. PHYSICAL EXAMINATION: Blood pressure 130/73 with a pulse of 78, temperature 97.9, he is 97% on 2 L nasal cannula. General description is a middle-aged male up in the chair in no distress. Respiratory system: Unlabored breathing. Clear to auscultation anteriorly. Heart S1, S2. Regular rate and rhythm. Abdomen soft, no tenderness. The right foot is currently dressed. No obvious drainage on the dressing. LABS: INR is 1.2. DIAGNOSTIC IMPRESSION AND PLAN: Patient admitted to the hospital with fever concern initially for a right lower extremity cellulitis. However, the patient did have a chronic nonhealing wound on the right foot plantar aspect with underlying Charcot deformity. MRI did shows evidence of an abscess, he is currently waiting for transfer to [place] to be evaluated by his province archivist for Charcot surgery as well as drainage of the abscess. Continue with cefepime with overall resolution of his fever. Continue supportive care. MMODL / IJN: [id number] /
[2021-02-11 17:11] LABS: Glucose,Whole Blood 140 mg/dL (75-99)
[2021-02-11 20:53] LABS: Glucose,Whole Blood 131 mg/dL (75-99)
[2021-02-11] MEDS: LATANOPROST 0.005% OPHTH DROPS 2.5 ML BTL BOTH EYES SCH (21:36)
[2021-02-11] MEDS: ATORVASTATIN 10 MG TAB PO SCH (21:39)
[2021-02-11] MEDS: NON FORMULARY DRUG (Morphine Pain Pump 1 DOSE) MISCELLANE SCH (22:03)
[2021-02-12] MEDS: CEFEPIME 2 GM in SODIUM CHLORIDE 0.9% 100 ML IVPB SCH ×2 (01:27→08:39)
[2021-02-12 07:01] LABS: Anisocytosis Slight; Basophils # (A) 0.1 k/uL (0-0.2); Basophils % (A) 1 %; Eosinophils # (A) 0.5 k/uL (0-0.7); Eosinophils % (A) 8 %; HCT 34.1 % (39.0-53.0); HGB 10.8 gm/dL (13.0-17.5); Lymphocytes # (A) 0.9 k/uL (1.0-4.8); Lymphocytes % (A) 13 %; MCH 26.4 pg (25.0-35.0); MCHC 31.8 g/dL (31.0-37.0); MCV 83.1 fL (80.0-100.0); Mean Platelet Volume 8.8; Monocytes # (A) 0.6 k/uL (0-1.0); Monocytes % (A) 9 %; Neutrophils # (A) 4.5 k/uL (1.3-7.7); Neutrophils % (A) 67 %; Platelet Count 204 k/uL (150-450); RDW 16.2 % (11.5-15.5); WBC 6.7 k/uL (3.8-10.6)
[2021-02-12 07:04] LABS: INR 1.1 (<1.2); Prothrombin Time 11.7 sec (9.0-12.0)
[2021-02-12 07:12] LABS: African American GFR (CKD) >90 (>60 ml/min/1.73 sqM); Anion Gap 10 mmol/L; Blood Urea Nitrogen 35 mg/dL (9-20); Carbon Dioxide 30 mmol/L (22-30); Chloride 96 mmol/L (98-107); Glucose 142 mg/dL (74-99); Non-African American GFR(CKD) 87 (>60 ml/min/1.73 sqM); Potassium 4.2 mmol/L (3.5-5.1); Sodium 136 mmol/L (137-145)
[2021-02-12 07:19] LABS: Glucose,Whole Blood 138 mg/dL (75-99)
[2021-02-12] MEDS: FLUTICASONE 220 MCG INHALER INHALATION SCH (07:45)
[2021-02-12] MEDS: INSULIN ASPART (NovoLOG) 100 UNIT/ML VIAL SQ SCH ×2 (08:39→13:28)
[2021-02-12] MEDS: INSULIN DETEMIR (LEVEMIR) 100 UNIT/ML SYR SQ SCH (08:39)
[2021-02-12] MEDS: ENOXAPARIN 40 MG/0.4 ML SYRINGE SQ SCH (08:40)
[2021-02-12] MEDS: POTASSIUM CHLORIDE ER 20 MEQ TAB.ER PO SCH (08:40)
[2021-02-12] MEDS: PANTOPRAZOLE 40 MG TABLET PO SCH (08:40)
[2021-02-12] MEDS: metFORMIN 500 MG TAB PO SCH (08:40)
[2021-02-12] MEDS: PREGABALIN 100 MG CAP PO SCH (08:40)
[2021-02-12] MEDS: FUROSEMIDE 40 MG TAB PO SCH (08:40)
[2021-02-12] MEDS: LORATADINE 10 MG TAB PO SCH (08:41)
[2021-02-12] MEDS: FERROUS SULFATE 325 MG TAB PO SCH (08:41)
[2021-02-12] MEDS: FLUCONAZOLE 100 MG TAB PO SCH (08:41)
[2021-02-12] MEDS: DULoxetine HCL 60 MG CAPSULE.DR PO SCH (08:41)
[2021-02-12] MEDS: DULoxetine HCL 30 MG CAPSULE.DR PO SCH (08:41)
[2021-02-12 11:39] LABS: Glucose,Whole Blood 167 mg/dL (75-99)
[2021-02-12 12:41] VITALS: BP 121/67; PULSE 72; RESP 17; TEMP 98.9
--- NOTE | 2021-02-12 15:15 | P.DS ---
<Opal Soliman - Last Filed: 02/12/21 15:04> Providers Expected date of discharge: 02/12/21 Hospital Course: Final diagnosis Right foot diabetic ulcer and cellulitis as well as sepsis, present on admission, with acute osteomyelitis and possible abscess Right Charcot's foot Anemia, possible anemia of chronic disease Hyponatremia Diabetes mellitus type 2 Elevated CRP History of DVT History of gastroesophageal reflux disease Hypertension Hyperlipidemia History of degenerative joint disease History of obstructive sleep apnea History of factor 5 L deficiency history of environmental ALLERGIES History of back pain History of tonsillectomy history of anxiety, depression Morbid obesity with a body mass index of 47.8 DVT prophylaxis: Starting subcutaneous Lovenox as Coumadin is on hold Full code Discharge disposition Patient is being discharged in a stable condition with guarded prognosis to home. Patient will follow-up with Dr. Bellamy in the outpatient setting upon discharge. Patient will continue with visiting nurse [facility] for home care. Patient is scheduled for biopsy with Dr. Yoder tomorrow 02/13 at 9 AM and will hold anticoagulation until after the procedure. Also to follow-up with wound care center Dr. Coleman as scheduled in the outpatient setting . Total time taken is greater than 35 minutes. Hospital course This is a 50-year-old male who was recently admitted with right foot diabetic ulcer being closely monitored. A bone scan was done showing features of osteomyelitis and infectious disease was consulted and following. Patient was maintained on IV antibiotics and evaluated by vascular surgery and recommending continuing with current chairman and chief executive officer and surgeon that was scheduled on 1025 for any further interventions. Patient had a foot MRI which showed concern for underlying osteomyelitis along with a plantar abscess and infectious disease rec ommending I&D and deep wound cultures to determine appropriate antibiotics if needed. Multiple discussions were had with the patient along with podiatry who was in close contact with Dr. Yoder who has the patient scheduled for surgery on his Charcot's foot on 02/18. Discussed again with Dr. Coleman about treatment plan and was made aware he does not want any surgical intervention, I&D, or further antibiotics on this patient as the patient will require a bone biopsy with them in the outpatient setting. Appointments have all been arranged and patient is aware of treatment plan. Patient instructed to hold all anticoagulation until biopsy is performed again educated the patient about holding Coumadin and patient has been on Lovenox for bridging patient does have history of DVT and current INR is 1.1. Patient to discuss with Dr. Coleman along with surgeon about continuing Lovenox after the biopsy until 24 hours prior to surgery. Patient needs close outpatient follow-up with primary care provider to monitor INR and resuming Coumadin. Multiple attempts at transferring the patient to [place] have been made and are currently refusing as there are holds and they were also informed all of this can be done in the outpatient setting under the discretion of Dr. Yoder and will not require transfer from here. Discussed with infectious disease about discontinuing antibiotics per Dr. Coleman and this again was discussed at length with the patient along with his mother. Patient instructed and encouraged to follow up at [facility] if experiencing any worsening symptoms. Currently no reports of chest pain, shortness of breath, or palpitations. Patient is afebrile. No reports of nausea or vomiting and patient is tolerating diet. Patient will be discharged home today. Guarded prognosis. Gen: This is a 50-year-old male awake, alert and oriented 3 in well-developed, well-nourished, morbidly obese. HEENT: Head is atraumatic, normocephalic. Pupils equal, round. Sclerae is anicteric. NECK: Supple. No JVD. No lymphadenopathy. No thyromegaly. LUNGS: Breath sounds diminished bilaterally with a few scattered rhonchi noted. No intercostal retractions. HEART: S1, S2 are muffled ABDOMEN: Soft. Bowel sounds are present. No masses. No tenderness. EXTREMITIES: No pedal edema. No calf tenderness. Right foot plantar ulcer noted. Speedy wrappings of bilateral lower extremities noted with continued generalized edema NEUROLOGICAL: Patient is awake, alert and oriented x3. No focal deficits. Please refer to medication reconciliation sheet for a list of medications. Patient Condition at Discharge: Stable Plan - Discharge Summary Discharge Rx Participant: Yes New Discharge Prescriptions: New Enoxaparin [Lovenox] 150 mg SQ DAILY 3 Days #3 each Acetaminophen Tab [Tylenol] 650 mg PO Q6HR PRN #30 tab PRN Reason: Mild Pain Or Fever > 100.5 Continue Simvastatin [Zocor] 20 mg PO HS Latanoprost Ophth [Xalatan 0.005%] 1 drop BOTH EYES HS Loratadine [Claritin] 10 mg PO DAILY metFORMIN HCL [Glucophage] 1,000 mg PO BID Pantoprazole Sodium [Protonix] 40 mg PO BID Morphine Pain Pump 1 dose INTRATHECA CONTINUOUS Ammonium Lactate Cream [Lac-Hydrin 12% Cream] 1 applic TOPICAL DAILY Pregabalin [Lyrica] 200 mg PO BID DULoxetine HCL [Cymbalta] 60 mg PO DAILY DULoxetine HCL [Cymbalta] 30 mg PO BID Ondansetron Odt [Zofran ODT] 4 mg PO Q8HR PRN #12 tab PRN Reason: Nausea carBAMazepine [TEGretol] 100 mg PO Q12H Insulin Lispro [humaLOG Kwikpen] 22 unit SQ AC-SUPPER Fluticasone Propionate [Flovent Hfa 220 mcg] 2 puff INHALATION RT-BID Ferrous Sulfate [Iron (65 MG Elemental)] 325 mg PO BID SUMAtriptan succinate [Imitrex] 50 mg PO DAILY PRN PRN Reason: Migraine Headache Cyclobenzaprine [Flexeril] 10 mg PO Q8H PRN PRN Reason: Pain Furosemide [Lasix] 40 mg PO DAILY Potassium Chloride [K-Tab ER] 20 meq PO DAILY Insulin Lispro [humaLOG Kwikpen] 15 unit SQ AC-LUNCH Insulin Lispro [humaLOG Kwikpen] 8 unit SQ AC-BRKFST Insulin Glargine,Hum.rec.anlog [Lantus Solostar Pen] 50 unit SQ BID Discontinued Warfarin [Coumadin] 10 mg PO HS Discharge Medication List Latanoprost Ophth [Xalatan 0.005%] 1 drop BOTH EYES HS 01/23/14 [History] Simvastatin [Zocor] 20 mg PO HS 01/23/14 [History] Loratadine [Claritin] 10 mg PO DAILY 01/28/16 [History] Pantoprazole Sodium [Protonix] 40 mg PO BID 01/28/16 [History] metFORMIN HCL [Glucophage] 1,000 mg PO BID 01/28/16 [History] Morphine Pain Pump 1 dose INTRATHECA CONTINUOUS 05/05/17 [History] Ammonium Lactate Cream [Lac-Hydrin 12% Cream] 1 applic TOPICAL DAILY 09/30/17 [History] DULoxetine HCL [Cymbalta] 60 mg PO DAILY 09/30/17 [History] Pregabalin [Lyrica] 200 mg PO BID 09/30/17 [History] Cyclobenzaprine [Flexeril] 10 mg PO Q8H PRN 10/25/20 [History] DULoxetine HCL [Cymbalta] 30 mg PO BID 10/25/20 [History] Ferrous Sulfate [Iron (65 MG Elemental)] 325 mg PO BID 10/25/20 [History] Fluticasone Propionate [Flovent Hfa 220 mcg] 2 puff INHALATION RT-BID 10/25/20 [History] Furosemide [Lasix] 40 mg PO DAILY 10/25/20 [History] Potassium Chloride [K-Tab ER] 20 meq PO DAILY 10/25/20 [History] SUMAtriptan succinate [Imitrex] 50 mg PO DAILY PRN 10/25/20 [History] Ondansetron Odt [Zofran ODT] 4 mg PO Q8HR PRN #12 tab 11/05/20 [Rx] Insulin Glargine,Hum.rec.anlog [Lantus Solostar Pen] 50 unit SQ BID 01/31/21 [History] Insulin Lispro [humaLOG Kwikpen] 8 unit SQ AC-BRKFST 01/31/21 [History] Insulin Lispro [humaLOG Kwikpen] 15 unit SQ AC-LUNCH 01/31/21 [History] Insulin Lispro [humaLOG Kwikpen] 22 unit SQ AC-SUPPER 01/31/21 [History] carBAMazepine [TEGretol] 100 mg PO Q12H 01/31/21 [History] Acetaminophen Tab [Tylenol] 650 mg PO Q6HR PRN #30 tab 02/12/21 [Rx] Enoxaparin [Lovenox] 150 mg SQ DAILY 3 Days #3 each 02/12/21 [Rx] Follow up Appointment(s)/Referral(s): mirtha moya [Other] - 02/14/21 9:30 am Ayo Coleman DPM [STAFF PHYSICIAN] - 02/18/21 1:00 pm Oren Yoder DPM [REFERRING] - 02/13/21 9:00 am [facility] [NON-STAFF] - 02/14/21 9:00 am [facility] Vis[facility], [NON-STAFF] - 1 Week Patient Instructions/Handouts: Acetaminophen (By mouth), Cellulitis (DC), Diabetic Foot Ulcers (DC) Activity/Diet/Wound Care/Special Instructions: Acvity Limited until follow-up Follow-up with primary care provider on discharge Follow-up with Dr. Yoder for biopsy tomorrow on 02/13 9 AM and biopsy results along with surgery as scheduled already Follow-up with Dr. Coleman Continue home medications Hold Coumadin until biopsy and confirm with podiatry and surgeon about holding prior to surgery. Continue with Lovenox subcutaneous injection if cleared by Dr. Yoder after biopsy for 3 days and hold at least 24 hours prior to surgery Recommend continue to monitor Accu-Cheks before meals and continue with insulin as scheduled Continue heart healthy/diabetic diet Wednesday/Wednesday/Wednesday dressing change Follow-up primary care provider after procedure to discuss when to resume Coumadin and close INR follow-up and monitoring. Discharge Disposition: HOME SELF-CARE <Kenrick Medrano - Last Filed: 02/13/21 07:06> Providers Date of admission: 01/31/21 12:50 Attending physician: Kenrick Medrano MD Consults: 01/31/21 12:27 Consult Physician Urgent Consulting Provider: Ayo Coleman Consult Reason/Comments: Diabetic foot ulcer Do you want consulting provider notified?: Yes 01/31/21 20:44 Consult Physician Routine Consulting Provider: Kalina Lang Consult Reason/Comments: diabetic woumd Do you want consulting provider notified?: Yes 02/04/21 10:56 Consult Physician Urgent Consulting Provider: Dick Fuentes Consult Reason/Comments: osteomylitis right foot wound Do you want consulting provider notified?: Yes Primary care physician: Macarena Bellamy MD Hospital Course: I have reviewed the plan and note by nurse practitioner Opal and agree with it except was mentioned below Patient is seen and examined by me at bedside It is clinically stable. As per Dr. Coleman antibiotic could be stopped and he will go for bone biopsy tomorrow 02/13 and possible surgery for his Charcot foot on 02/18, next Wednesday. Patient and family/possible mother at bedside and agree with this plan. Also patient was instructed to hold his Coumadin prior to the biopsy by 24 hours and prior to his foot surgery on Wednesday and he agrees. After his bone biopsy he was given Lovenox bridging injection 150 mg daily 3 days (patient preferred once daily injection rather than twice a day, stating he was taking Lovenox before and no home to inject himself) and hold it 24 hours before his surgery on 02/18, and therefore patient he was instructed to follow up with his PCP and other doctors closely to resume his anticoagulation and he verbalized understanding and acceptance. Risks including but not limited to bleeding with Lovenox also with Coumadin and explained to him Extensively and he agrees. Benefits more than risk currently. Patient will be discharged in stable condition
--- NOTE | 2021-02-12 16:06 | PN ---
PROGRESS NOTE DATE OF SERVICE: 02/12/2021 REASON FOR FOLLOWUP: Right diabetic foot infection concerning for underlying abscess and cellulitis. INTERVAL HISTORY: The patient is afebrile. The patient is breathing comfortably. Denies having any chest pain or shortness of breath or cough. No nausea or vomiting. No abdominal pain or diarrhea. The patient has been evaluated by his wet pan operator, who is recommending no antibiotic on discharge and is referring him to a wet pan operator foot/ankle specialist at [place] for surgery. PHYSICAL EXAMINATION: Blood pressure 121/67, pulse of 72, temperature 98.9. He is 96% on room air. General description is a middle-aged male up in the chair in no distress. RESPIRATORY SYSTEM: Unlabored breathing. Clear to auscultation anteriorly. HEART: S1, S2. Regular rate and rhythm. ABDOMEN: Soft. No tenderness. Right foot is currently dressed. No obvious drainage on the dressing. LABS: Hemoglobin is 10.9, white count 6.7, creatinine 1.01. DIAGNOSTIC IMPRESSION AND PLAN: Patient admitted to hospital with fever concerning for right leg cellulitis. During the workup he was also noticed to have an abscess on the MRI. Vascular Surgery was consulted for drainage of this abscess, subsequently evaluated by his wet pan operator, who recommended no surgery here and wants the patient to be transferred to [place], which could not be completed. Now he has recommended that the patient be discharged home on no antibiotic, which is not advised, as there was an abscess and can lead to worsening of the infection. This was communicated to the patient in layman's terms with the managing his infection. Infectious Disease sign off. This was communicated to the patient in layman's terms as well as to the admitting team. MMODL / IJN: [id number] /
--- NOTE | 2021-02-14 15:21 | P.EN ---
The patient and I called and discussed the case with his PCP Vani at [phone]., Informed her that he refused surgery here and he is supposed to get a bone biopsy yesterday. Today he had an appointment with her this morning but he called and canceled because he did not had a right as he states. Also informed her of his upcoming procedure/surgery on his foot on this coming Sunday 02/18, also holding his Coumadin was given him Lovenox bridge and total before his surgery. And the need to follow-up with his INR and possible more Lovenox bridging if needed and she currently took note of this. She told me usually he is good about following up, and calling if he needs any help
== END 2021-02-12 15:45 | disposition home health service (06) | DRG 872 ==
LOC: EC 09:19 → 5NMEDONC 12:50
PROVIDERS: ADMIT Internal Medicine; ATTEND Internal Medicine
DX: A41.9 Sepsis, unspecified organism (principal); D68.51 Activated protein C resistance; E87.1 Hypo-osmolality and hyponatremia; L02.611 Cutaneous abscess of right foot; L03.115 Cellulitis of right lower limb; M86.171 Other acute osteomyelitis, right ankle and foot; Z68.42 Body mass index [BMI] 45.0-49.9, adult; A52.16 Charcot's arthropathy (tabetic); D50.9 Iron deficiency anemia, unspecified; D63.8 Anemia in other chronic diseases classified elsewhere; E11.43 Type 2 diabetes mellitus with diabetic autonomic (poly)neuropathy; E11.51 Type 2 diabetes mellitus with diabetic peripheral angiopathy without gangrene; E11.610 Type 2 diabetes mellitus with diabetic neuropathic arthropathy; E11.621 Type 2 diabetes mellitus with foot ulcer; E11.628 Type 2 diabetes mellitus with other skin complications; E11.69 Type 2 diabetes mellitus with other specified complication; E66.01 Morbid (severe) obesity due to excess calories; Z20.822 Contact with and (suspected) exposure to COVID-19; E78.5 Hyperlipidemia, unspecified; H54.62 Unqualified visual loss, left eye, normal vision right eye; I10 Essential (primary) hypertension; K31.84 Gastroparesis; Z79.4 Long term (current) use of insulin; K76.0 Fatty (change of) liver, not elsewhere classified; L97.512 Non-pressure chronic ulcer of other part of right foot with fat layer exposed; M65.871 Other synovitis and tenosynovitis, right ankle and foot; Z53.8 Procedure and treatment not carried out for other reasons; G47.33 Obstructive sleep apnea (adult) (pediatric); M19.90 Unspecified osteoarthritis, unspecified site; R79.82 Elevated C-reactive protein (CRP); G43.909 Migraine, unspecified, not intractable, without status migrainosus; K59.00 Constipation, unspecified; Z99.89 Dependence on other enabling machines and devices; Z90.89 Acquired absence of other organs; Z79.01 Long term (current) use of anticoagulants; Z79.51 Long term (current) use of inhaled steroids; Z79.84 Long term (current) use of oral hypoglycemic drugs; Z79.899 Other long term (current) drug therapy; Z80.52 Family history of malignant neoplasm of bladder; Z82.49 Family history of ischemic heart disease and other diseases of the circulatory system; Z83.3 Family history of diabetes mellitus; Z82.3 Family history of stroke; Z86.718 Personal history of other venous thrombosis and embolism; Z87.891 Personal history of nicotine dependence; Z98.890 Other specified postprocedural states; Z96.89 Presence of other specified functional implants
CPT/HCPCS: 36415; 78315; 80048; 80053; 80202; 81003; 82565; 83605; 85025; 85610; 85652; 86140; 87040; 87070; 87075; 87205; 87635; 93005; 93970; 94640; 94760; 99284

== ENCOUNTER → 2021-02-14 | Outpatient (CLI) | payer OTHER | END | disposition home or self-care (01) | LOC: LABWHC1 11:01 | PROVIDERS: ATTEND Nurse Practitioner Adult Health | DX: Z20.822 Contact with and (suspected) exposure to COVID-19 (principal) | CPT/HCPCS: U0003; U0005 ==

== ENCOUNTER 2021-04-16 10:29 | Emergency (ER) | payer OTHER ==
[2021-04-16 10:40] VITALS: RESP 18
[2021-04-16 10:41] VITALS: TEMP 98.4
[2021-04-16 12:20] VITALS: BP 104/64; PULSE 78
--- NOTE | 2021-04-16 13:00 | XR ---
KUB HISTORY: Constipation Frontal KUB and 2 images, comparison prior exam 08/01/2013 There is retained fecal debris throughout much of the distribution of the colon. There is no evident bowel obstruction or pneumoperitoneum. Degenerative disc changes are present visualized spine. Right hemidiaphragm remains elevated. Metallic device is present over the left lower quadrant. Possible vas cular calcifications noted within the pelvis. IMPRESSION: Correlate for fecal stasis.
[2021-04-16 14:09] LABS: Appearance,Urine Clear (Clear); Bilirubin,Urine Negative (Negative); Blood,Urine Negative (Negative); Color,Urine Yellow; Glucose,Urine (UA) Negative (Negative); Ketones,Urine Negative (Negative); Leukocyte Esterase,Urine Negative (Negative); Nitrite,Urine Negative (Negative); Protein,Urine Negative (Negative); Specific Gravity,Urine 1.019 (1.001-1.035); Urobilinogen,Urine <2.0 mg/dL (<2.0)
--- NOTE | 2021-04-16 14:31 | ED ---
General Adult HPI - General Chief complaint: Abdominal Pain Stated complaint: Trouble urinating Time Seen by Provider: 04/16/21 11:12 Source: patient, EMS Mode of arrival: EMS Limitations: no limitations - History of Present Illness Initial comments: 51-year-old male with a complicated past medical history presents to the emergency room for a chief complaint of abdominal pain. Patient was seen at [facility] in [place] yesterday and had a CAT scan performed of his abdomen. Patient states he was down to be constipated with a distended bladder. States he had a straight catheter and over a liter of urine was obtained. Unfortunately the catheter was removed prior to his discharge. Patient states that they also attempted to disimpact him but were unsuccessful. They did not give him an enema and discharged him home. Patient states she still feels cramping in his abdomen and feels constipated. Patient last had a small bowel movement 4 days ago but states it was like rabbit pellets. He does have a pain pump for his back. Patient has no other complaints at this time including shortness of breath, chest pain, nausea or vomiting, headache, or visual changes. - Related Data Home Medications Medication Instructions Recorded Confirmed Latanoprost Ophth [Xalatan 0.005%] 1 drop BOTH EYES HS 01/23/14 01/31/21 Simvastatin [Zocor] 20 mg PO HS 01/23/14 01/31/21 Loratadine [Claritin] 10 mg PO DAILY 01/28/16 01/31/21 Pantoprazole Sodium [Protonix] 40 mg PO BID 01/28/16 01/31/21 metFORMIN HCL [Glucophage] 1,000 mg PO BID 01/28/16 01/31/21 Morphine Pain Pump 1 dose INTRATHECA CONTINUOUS 05/05/17 01/31/21 Ammonium Lactate Cream [Lac-Hydrin 1 applic TOPICAL DAILY 09/30/17 01/31/21 12% Cream] DULoxetine HCL [Cymbalta] 60 mg PO DAILY 09/30/17 01/31/21 Pregabalin [Lyrica] 200 mg PO BID 09/30/17 01/31/21 Cyclobenzaprine [Flexeril] 10 mg PO Q8H PRN 10/25/20 01/31/21 DULoxetine HCL [Cymbalta] 30 mg PO BID 10/25/20 01/31/21 Ferrous Sulfate [Iron (65 MG 325 mg PO BID 10/25/20 01/31/21 Elemental)] Fluticasone Propionate [Flovent 2 puff INHALATION RT-BID 10/25/20 01/31/21 Hfa 220 mcg] Furosemide [Lasix] 40 mg PO DAILY 10/25/20 01/31/21 Potassium Chloride [K-Tab ER] 20 meq PO DAILY 10/25/20 01/31/21 SUMAtriptan succinate [Imitrex] 50 mg PO DAILY PRN 10/25/20 01/31/21 Insulin Glargine,Hum.rec.anlog 50 unit SQ BID 01/31/21 01/31/21 [Lantus Solostar Pen] Insulin Lispro [humaLOG Kwikpen] 8 unit SQ AC-BRKFST 01/31/21 01/31/21 Insulin Lispro [humaLOG Kwikpen] 15 unit SQ AC-LUNCH 01/31/21 01/31/21 Insulin Lispro [humaLOG Kwikpen] 22 unit SQ AC-SUPPER 01/31/21 01/31/21 carBAMazepine [TEGretol] 100 mg PO Q12H 01/31/21 01/31/21 Previous Rx's Medication Instructions Recorded Ondansetron Odt [Zofran ODT] 4 mg PO Q8HR PRN #12 tab 11/05/20 Acetaminophen Tab [Tylenol] 650 mg PO Q6HR PRN #30 tab 02/12/21 Enoxaparin [Lovenox] 150 mg SQ DAILY 3 Days #3 each 02/12/21 Allergies Allergy/AdvReac Type Severity Reaction Status Date / Time adhesive Allergy Rash/Hives Verified 04/16/21 15:05 Review of Systems ROS Statement: Those systems with pertinent positive or pertinent negative responses have been documented in the HPI. ROS Other: All systems not noted in ROS Statement are negative. Past Medical History Past Medical History: Blood Disorder, Diabetes Mellitus, Deep Vein Thrombosis (DVT), GERD/Reflux, Hyperlipidemia, Hypertension, Musculoskeletal Disorder, Osteoarthritis (OA), Sleep Apnea/CPAP/BIPAP Additional Past Medical History / Comment(s): FACTOR 5 LEIDEN, HX OF (2) DVT'S LEFT LEG & (1) SUPERFICIAL CLOT,hiatal hernia, USES BIPAP MACHINE trilogy machine at night, ENVIRONMENTAL ALLERGIES, FATTY LIVER, DDD & BULDGING DISC WITH BACK PAIN, pain pump implant,CANE, PARTIALLY BLIND LEFT EYE, STATES SCARRING WITH NARROWING OF ESOPHAGUS & Hx of DIFFICULTY SWALLOWING, currently no difficulty swallowing. MIGRAINES, PVD, gastroparesis, charcot of right foot really bad, charcot of left foot less severe. right foot ulcer started in August 2020 History of Any Multi-Drug Resistant Organisms: None Reported Past Surgical History: Tonsillectomy Additional Past Surgical History / Comment(s): eye surgery as infant, EGD WITH DILATION X2 , uppp sx for sleep apnea, pain pump insertion Past Anesthesia/Blood Transfusion Reactions: Family History of Problems w/ Anesthesia Additional Past Anesthesia/Blood Transfusion Reaction / Comment(s): STATES "MOTHER CRASHES" "passes out"-with anesthesia,"needs to have a massage coordinator dose" Past Psychological History: Anxiety, Depression Smoking Status: Never smoker Past Alcohol Use History: None Reported Past Drug Use History: None Reported - Past Family History Father Family Medical History: Cancer Additional Family Medical History / Comment(s): BLADDER CANCER Mother Family Medical History: CVA/TIA, Diabetes Mellitus, Myocardial Infarction (SD) General Exam Limitations: no limitations General appearance: alert, in no apparent distress Head exam: Present: atraumatic Eye exam: Present: normal appearance, PERRL, EOMI. Absent: scleral icterus, conjunctival injection ENT exam: Present: normal exam, mucous membranes moist Neck exam: Present: normal inspection, full ROM Respiratory exam: Present: normal lung sounds bilaterally. Absent: respiratory distress, wheezes Cardiovascular Exam: Present: regular rate, normal rhythm, normal heart sounds GI/Abdominal exam: Present: soft, tenderness (Minimal generalized abdominal tenderness), normal bowel sounds. Absent: distended, guarding, rebound, rigid Neurological exam: Present: alert Course Vital Signs 04/16/21 04/16/21 10:35 11:15 Temperature 98.4 F Pulse Rate 76 78 Respiratory 18 18 Rate Blood Pressure 114/72 104/64 O2 Sat by Pulse 97 95 Oximetry Medical Decision Making - Medical Decision Making Vitals are stable. Patient is well-appearing. I was able to obtain laboratory evaluation from [facility] which was unremarkable. Urinalysis looks like it did not show any evidence of infection and kidney function was normal with a serum creatinine of 0.9. I was unable to obtain the CAT scan report given apparently their Internet is down. X-ray here was obtained which did show fecal stasis. Patient had Castillo catheter inserted and a liter of urine was obtained again. Castillo catheter is indwelling at this point. As far as constipation I did attempt to disimpact patient. Enema was given without s uccess. I therefore attempted a second time to disimpact him with some results. Enema was again repeated. Patient did have a large bowel movement. He is feeling much better. We will send him home with magnesium citrate. He will follow-up with his doctor for constipation. He will follow up with urology for his indwelling Castillo catheter. He will return here for any worsening symptoms. [facility] never did respond with CAT scan results. - Lab Data Lab Results 04/16/21 Range/Units 14:00 Urine Color Yellow Urine Appearance Clear (Clear) Urine pH 5.0 (5.0-8.0) Ur Specific [place] 1.019 (1.001-1.035) Urine Protein Negative (Negative) Urine Glucose (UA) Negative (Negative) Urine Ketones Negative (Negative) Urine Blood Negative (Negative) Urine Nitrite Negative (Negative) Urine Bilirubin Negative (Negative) Urine Urobilinogen <2.0 (<2.0) mg/dL Ur Leukocyte Esterase Negative (Negative) Disposition Clinical Impression: Constipation, Urinary retention Disposition: HOME SELF-CARE Condition: Good Instructions (If sedation given, give patient instructions): Constipation (ED) Additional Instructions: Please take magnesium citrate. Return to the ER for worsening symptoms. Otherwise follow-up with primary care for constipation and urology for urinary retention and Castillo catheter. Is patient prescribed a controlled substance at d/c from ED?: No Referrals: Dl Waggoner MD [Primary Care Provider] - 1-2 days Naren Solorio MD [STAFF PHYSICIAN] - 1-2 days Time of Disposition: 16:52
[2021-04-16] MEDS ORDERED: MAGNESIUM CITRATE 296 ML BOTTLE PO STA (16:50)
== END 2021-04-16 18:03 | disposition home or self-care (01) ==
LOC: EC 10:29
DX: K59.00 Constipation, unspecified (principal); R33.9 Retention of urine, unspecified; R10.9 Unspecified abdominal pain; I10 Essential (primary) hypertension; E78.5 Hyperlipidemia, unspecified; M19.90 Unspecified osteoarthritis, unspecified site; K21.9 Gastro-esophageal reflux disease without esophagitis; E11.43 Type 2 diabetes mellitus with diabetic autonomic (poly)neuropathy; K31.84 Gastroparesis; Z91.09 Other allergy status, other than to drugs and biological substances; Z79.4 Long term (current) use of insulin; Z79.84 Long term (current) use of oral hypoglycemic drugs; Z79.899 Other long term (current) drug therapy
CPT/HCPCS: 51702; 74018; 81003; 99284

== ENCOUNTER 2021-04-24 19:33 | Emergency (ER) | payer OTHER ==
[2021-04-25 00:34] VITALS: BP 123/73; PULSE 55; RESP 18; TEMP 98.2
--- NOTE | 2021-04-25 00:48 | ED ---
General Adult HPI - General Chief complaint: ENT Stated complaint: Foreign body in throat Source: patient, EMS Mode of arrival: EMS Limitations: no limitations - History of Present Illness Initial comments: 51 year-old female patient with history of esophageal stricture with dilation x3 by Dr. Ramey, presents for evaluation of something "stuck in his esophagus". States he was eating roast beef for dinner. States he developed discomfort in his chest and was unable to keep down any other food or fluids. States he had multiple episodes of vomiting up clear fluid. State he called an ambulance and by the time he arrived he could feel that the obstruction had passed. He denies trying to eat or drink anything since the episode. He denies any current chest discomfort. States he never had any difficulty breathing. States he did feel somewhat nauseated throughout the ordeal. - Related Data Home Medications Medication Instructions Recorded Confirmed Latanoprost Ophth [Xalatan 0.005%] 1 drop BOTH EYES HS 01/23/14 01/31/21 Simvastatin [Zocor] 20 mg PO HS 01/23/14 01/31/21 Loratadine [Claritin] 10 mg PO DAILY 01/28/16 01/31/21 Pantoprazole Sodium [Protonix] 40 mg PO BID 01/28/16 01/31/21 metFORMIN HCL [Glucophage] 1,000 mg PO BID 01/28/16 01/31/21 Morphine Pain Pump 1 dose INTRATHECA CONTINUOUS 05/05/17 01/31/21 Ammonium Lactate Cream [Lac-Hydrin 1 applic TOPICAL DAILY 09/30/17 01/31/21 12% Cream] DULoxetine HCL [Cymbalta] 60 mg PO DAILY 09/30/17 01/31/21 Pregabalin [Lyrica] 200 mg PO BID 09/30/17 01/31/21 Cyclobenzaprine [Flexeril] 10 mg PO Q8H PRN 10/25/20 01/31/21 DULoxetine HCL [Cymbalta] 30 mg PO BID 10/25/20 01/31/21 Ferrous Sulfate [Iron (65 MG 325 mg PO BID 10/25/20 01/31/21 Elemental)] Fluticasone Propionate [Flovent 2 puff INHALATION RT-BID 10/25/20 01/31/21 Hfa 220 mcg] Furosemide [Lasix] 40 mg PO DAILY 10/25/20 01/31/21 Potassium Chloride [K-Tab ER] 20 meq PO DAILY 10/25/20 01/31/21 SUMAtriptan succinate [Imitrex] 50 mg PO DAILY PRN 10/25/20 01/31/21 Insulin Glargine,Hum.rec.anlog 50 unit SQ BID 01/31/21 01/31/21 [Lantus Solostar Pen] Insulin Lispro [humaLOG Kwikpen] 8 unit SQ AC-BRKFST 01/31/21 01/31/21 Insulin Lispro [humaLOG Kwikpen] 15 unit SQ AC-LUNCH 01/31/21 01/31/21 Insulin Lispro [humaLOG Kwikpen] 22 unit SQ AC-SUPPER 01/31/21 01/31/21 carBAMazepine [TEGretol] 100 mg PO Q12H 01/31/21 01/31/21 Previous Rx's Medication Instructions Recorded Ondansetron Odt [Zofran ODT] 4 mg PO Q8HR PRN #12 tab 11/05/20 Acetaminophen Tab [Tylenol] 650 mg PO Q6HR PRN #30 tab 02/12/21 Enoxaparin [Lovenox] 150 mg SQ DAILY 3 Days #3 each 02/12/21 Allergies Allergy/AdvReac Type Severity Reaction Status Date / Time adhesive Allergy Rash/Hives Verified 04/24/21 21:04 Review of Systems ROS Statement: Those systems with pertinent positive or pertinent negative responses have been documented in the HPI. ROS Other: All systems not noted in ROS Statement are negative. Past Medical History Past Medical History: Blood Disorder, Diabetes Mellitus, Deep Vein Thrombosis (DVT), GERD/Reflux, Hyperlipidemia, Hypertension, Musculoskeletal Disorder, Osteoarthritis (OA), Sleep Apnea/CPAP/BIPAP Additional Past Medical History / Comment(s): FACTOR 5 LEIDEN, HX OF (2) DVT'S LEFT LEG & (1) SUPERFICIAL CLOT,hiatal hernia, USES BIPAP MACHINE trilogy machine at night, ENVIRONMENTAL ALLERGIES, FATTY LIVER, DDD & BULDGING DISC WITH BACK PAIN, pain pump implant,CANE, PARTIALLY BLIND LEFT EYE, STATES SCARRING WITH NARROWING OF ESOPHAGUS & Hx of DIFFICULTY SWALLOWING, currently no difficulty swallowing. MIGRAINES, PVD, gastroparesis, charcot of right foot really bad, charcot of left foot less severe. right foot ulcer started in August 2020 History of Any Multi-Drug Resistant Organisms: None Reported Past Surgical History: Tonsillectomy Additional Past Surgical History / Comment(s): eye surgery as infant, EGD WITH DILATION X2 , uppp sx for sleep apnea, pain pump insertion Past Anesthesia/Blood Transfusion Reactions: Family History of Problems w/ Anesthesia Additional Past Anesthesia/Blood Transfusion Reaction / Comment(s): STATES "MOTHER CRASHES" "passes out"-with anesthesia,"needs to have a structural worker dose" Past Psychological History: Anxiety, Depression Smoking Status: Never smoker Past Alcohol Use History: None Reported Past Drug Use History: None Reported - Past Family History Father Family Medical History: Cancer Additional Family Medical History / Comment(s): BLADDER CANCER Mother Family Medical History: CVA/TIA, Diabetes Mellitus, Myocardial Infarction ([place]) General Exam Limitations: no limitations General appearance: alert, in no apparent distress, other (This is a well- developed, well-nourished adult male in no acute distress.) ENT exam: Present: normal exam, normal oropharynx, mucous membranes moist Respiratory exam: Present: normal lung sounds bilaterally. Absent: respiratory distress, wheezes, rales, rhonchi, stridor Cardiovascular Exam: Present: regular rate, normal rhythm, normal heart sounds. Absent: systolic murmur, diastolic murmur, rubs, gallop, clicks GI/Abdominal exam: Present: soft, normal bowel sounds. Absent: distended, tenderness, guarding, rebound, rigid Neurological exam: Present: alert, oriented X3, CN II-XII intact Psychiatric exam: Present: normal affect, normal mood Skin exam: Present: warm, dry, intact, normal color. Absent: rash Course Vital Signs 04/24/21 04/25/21 21:04 00:33 Temperature 98.3 F 98.2 F Pulse Rate 70 55 L Respiratory 16 18 Rate Blood Pressure 139/80 123/73 O2 Sat by Pulse 94 L 96 Oximetry Medical Decision Making - Medical Decision Making 51-year-old male patient presented to the emergency department today for evaluation of food stuck in his esophagus. Physical examination was unremarkable. Lungs are clear to auscultation with good air movement. He did wait in the waiting room for approximately 4-1/2 hours. He had no further symptoms. He was given water to drink which she kept down. He tolerated a glass of apple juice without difficulty. He'll be discharged with instructions to follow soft diet until he is able to follow-up his GI specialist. Return parameters were discussed in detail. He verbalizes understanding and agrees with this plan. My attending is Dr. Coates. Disposition Clinical Impression: Esophageal obstruction due to food impaction Disposition: HOME SELF-CARE Condition: Good Instructions (If sedation given, give patient instructions): Soft Diet (ED), Esophageal Stricture (ED) Additional Instructions: Follow soft diet until you are able to see Dr. Ramey. Call Wednesday morning for an appointment. Return for any new, worsening, or concerning symptoms. Is patient prescribed a controlled substance at d/c from ED?: No Referrals: Dl Waggoner MD [Primary Care Provider] - 1-2 days Teresa Ramey MD [STAFF PHYSICIAN] - 1-2 days Time of Disposition: 00:47
== END 2021-04-25 01:24 | disposition home or self-care (01) ==
LOC: EC 19:33
DX: K22.2 Esophageal obstruction (principal); E11.9 Type 2 diabetes mellitus without complications; I10 Essential (primary) hypertension; E78.5 Hyperlipidemia, unspecified; K21.9 Gastro-esophageal reflux disease without esophagitis; M19.90 Unspecified osteoarthritis, unspecified site; F32.A Depression, unspecified; F41.9 Anxiety disorder, unspecified; Z79.4 Long term (current) use of insulin; Z79.84 Long term (current) use of oral hypoglycemic drugs; Z79.899 Other long term (current) drug therapy; Z86.718 Personal history of other venous thrombosis and embolism
CPT/HCPCS: 99283

== ENCOUNTER 2021-06-30 10:28 | Inpatient (IN) | payer OTHER ==
[2021-06-30] MEDS ORDERED: VANCOMYCIN IV PER PHARMACY 1 EACH MISC MISCELLANE PRN (11:15)
--- NOTE | 2021-06-30 11:18 | ED ---
General Adult HPI - General Chief complaint: Extremity Problem,Nontraumatic Stated complaint: Infection in Lt foot Time Seen by Provider: 06/30/21 10:50 Source: patient, RN notes reviewed Mode of arrival: wheelchair Limitations: no limitations - History of Present Illness Initial comments: Patient is a pleasant 51-year-old male presenting to the emergency department with concerns with left foot infection. Onset of symptoms was around 3 weeks ago. Symptoms have worsened especially over the past 5 or 6 days. Patient is having fevers at home up to 102. Patient is having follow older and drainage, more so from the heel than the foot ulcer. Patient does have history of similar symptoms previously and does have diabetes. Patient has been on antibiotics as an outpatient - Related Data Home Medications Medication Instructions Recorded Confirmed Latanoprost Ophth [Xalatan 0.005%] 1 drop BOTH EYES HS 01/23/14 05/15/21 Simvastatin [Zocor] 20 mg PO HS 01/23/14 05/15/21 Loratadine [Claritin] 10 mg PO DAILY 01/28/16 05/15/21 Pantoprazole Sodium [Protonix] 40 mg PO BID 01/28/16 05/15/21 metFORMIN HCL [Glucophage] 1,000 mg PO BID 01/28/16 05/15/21 Morphine Pain Pump 1 dose INTRATHECA CONTINUOUS 05/05/17 05/15/21 Pregabalin [Lyrica] 200 mg PO BID 09/30/17 05/15/21 DULoxetine HCL [Cymbalta] 30 mg PO BID 10/25/20 05/15/21 Ferrous Sulfate [Iron (65 MG 325 mg PO BID 10/25/20 05/15/21 Elemental)] Fluticasone Propionate [Flovent 2 puff INHALATION RT-BID 10/25/20 05/15/21 Hfa 220 mcg] Furosemide [Lasix] 40 mg PO DAILY 10/25/20 05/15/21 SUMAtriptan succinate [Imitrex] 50 mg PO DAILY PRN 10/25/20 05/15/21 carBAMazepine [TEGretol] 100 mg PO Q12H 01/31/21 05/15/21 HYDROcodone/APAP 10-325MG [[place] 1 tab PO BID 05/15/21 05/15/21 10-325] INSULIN LISPRO (HumaLOG) [humaLOG] See Protocol SQ ACHS 05/15/21 05/15/21 Lubiprostone [Amitiza] 24 mcg PO BID 05/15/21 05/15/21 Omeprazole 20 mg PO BID 05/15/21 05/15/21 Ondansetron [Zofran] 4 mg PO Q8HR PRN 05/15/21 05/15/21 Potassium Chloride ER [K-Dur 10] 10 meq PO DAILY 05/15/21 05/15/21 Warfarin Sodium 10 mg PO HS 05/15/21 05/15/21 lisinopriL [Zestril] 2.5 mg PO DAILY 05/15/21 05/15/21 Previous Rx's Medication Instructions Recorded Cephalexin [Keflex] 500 mg PO Q6HR #28 cap 05/20/21 Insulin Glargine,Hum.rec.anlog 50 unit SQ HS #0 05/20/21 [Lantus Solostar Pen] Allergies Allergy/AdvReac Type Severity Reaction Status Date / Time adhesive Allergy Rash/Hives Verified 06/30/21 10:42 Review of Systems ROS Statement: Those systems with pertinent positive or pertinent negative responses have been documented in the HPI. ROS Other: All systems not noted in ROS Statement are negative. Constitutional: Reports: fever, chills Eyes: Denies: eye pain ENT: Denies: ear pain Respiratory: Denies: cough Cardiovascular: Denies: palpitations Endocrine: Denies: fatigue Gastrointestinal: Denies: abdominal pain Genitourinary: Denies: dysuria Musculoskeletal: Denies: back pain Skin: Reports: as per HPI, rash Past Medical History Past Medical History: Blood Disorder, Diabetes Mellitus, Deep Vein Thrombosis (DVT), GERD/Reflux, Hyperlipidemia, Hypertension, Musculoskeletal Disorder, Osteoarthritis (OA), Sleep Apnea/CPAP/BIPAP Additional Past Medical History / Comment(s): FACTOR 5 LEIDEN, HX OF (2) DVT'S LEFT LEG & (1) SUPERFICIAL CLOT,hiatal hernia, USES BIPAP MACHINE trilogy machine at night, ENVIRONMENTAL ALLERGIES, FATTY LIVER, DDD & BULDGING DISC WITH BACK PAIN, pain pump implant,CANE, PARTIALLY BLIND LEFT EYE, STATES SCARRING WITH NARROWING OF ESOPHAGUS & Hx of DIFFICULTY SWALLOWING, currently no difficulty swallowing. MIGRAINES, PVD, gastroparesis, charcot of right foot really bad, charcot of left foot less severe. right foot ulcer started in August 2020 History of Any Multi-Drug Resistant Organisms: None Reported Past Surgical History: Tonsillectomy Additional Past Surgical History / Comment(s): eye surgery as infant, EGD WITH DILATION X2 , uppp sx for sleep apnea, pain pump insertion Past Anesthesia/Blood Transfusion Reactions: Family History of Problems w/ Anesthesia Additional Past Anesthesia/Blood Transfusion Reaction / Comment(s): STATES "MOTHER CRASHES" "passes out"-with anesthesia,"needs to have a supervisor slitting and shipping dose" Past Psychological History: Anxiety, Depression Smoking Status: Never smoker Past Alcohol Use History: None Reported Past Drug Use History: None Reported - Past Family History Father Family Medical History: Cancer Additional Family Medical History / Comment(s): BLADDER CANCER Mother Family Medical History: CVA/TIA, Diabetes Mellitus, Myocardial Infarction ([place]) General Exam Limitations: no limitations General appearance: alert, in no apparent distress Head exam: Present: normocephalic Eye exam: Present: normal appearance Neck exam: Present: normal inspection Respiratory exam: Present: normal lung sounds bilaterally Cardiovascular Exam: Present: regular rate, normal rhythm GI/Abdominal exam: Present: soft. Absent: tenderness Extremities exam: Present: pedal edema, other (Left foot with 2 large ulcers, one stage III on the bottom of the foot, approximately 5 cm. Second one also 5 cm on the heel with associated yellow/green drainage, stage III, foul older.) Neurological exam: Present: alert Psychiatric exam: Present: normal affect, normal mood Skin exam: Present: other (Left foot ulcers) Course Vital Signs 06/30/21 06/30/21 10:40 11:38 Temperature 98 F Pulse Rate 71 68 Respiratory 20 18 Rate Blood Pressure 128/68 114/73 O2 Sat by Pulse 96 96 Oximetry Medical Decision Making - Medical Decision Making Patient reevaluated and updated. Dr. Alvarez has been paged for admission covering Dr. Waggoner. - Lab Data Result diagrams: 06/30/21 11:26 06/30/21 11:26 Lab Results 06/30/21 06/30/21 06/30/21 Range/Units 11:26 11:26 11:26 WBC 7.2 (3.8-10.6) k/uL RBC 4.55 (4.30-5.90) m/uL Hgb 12.2 L (13.0-17.5) gm/dL Hct 37.8 L (39.0-53.0) % MCV 83.0 (80.0-100.0) fL MCH 26.9 (25.0-35.0) pg MCHC 32.4 (31.0-37.0) g/dL RDW 15.1 (11.5-15.5) % Plt Count 260 (150-450) k/uL MPV 8.2 Neutrophils % 66 % Lymphocytes % 19 % Monocytes % 8 % Eosinophils % 4 % Basophils % 2 % Neutrophils # 4.8 (1.3-7.7) k/uL Lymphocytes # 1.4 (1.0-4.8) k/uL Monocytes # 0.6 (0-1.0) k/uL Eosinophils # 0.3 (0-0.7) k/uL Basophils # 0.1 (0-0.2) k/uL Sodium 137 (137-145) mmol/L Potassium 4.1 (3.5-5.1) mmol/L Chloride 98 (98-107) mmol/L Carbon Dioxide 30 (22-30) mmol/L Anion Gap 9 mmol/L BUN 27 H (9-20) mg/dL Creatinine 1.05 (0.66-1.25) mg/dL Est GFR (CKD-EPI)AfAm >90 (>60 ml/min/1.73 sqM) Est GFR (CKD-EPI)NonAf 82 (>60 ml/min/1.73 sqM) Glucose 145 H (74-99) mg/dL POC Glucose (mg/dL) (75-99) mg/dL POC Glu Manager [employer] ID Plasma Lactic Acid Ger 1.6 (0.7-2.0) mmol/L Calcium 8.9 (8.4-10.2) mg/dL Total Bilirubin 0.4 (0.2-1.3) mg/dL AST 22 (17-59) U/L ALT 17 (4-49) U/L Alkaline Phosphatase 146 H (38-126) U/L Total Protein 7.6 (6.3-8.2) g/dL Albumin 3.6 (3.5-5.0) g/dL 06/30/21 Range/Units 12:22 WBC (3.8-10.6) k/uL RBC (4.30-5.90) m/uL Hgb (13.0-17.5) gm/dL Hct (39.0-53.0) % MCV (80.0-100.0) fL MCH (25.0-35.0) pg MCHC (31.0-37.0) g/dL RDW (11.5-15.5) % Plt Count (150-450) k/uL MPV Neutrophils % % Lymphocytes % % Monocytes % % Eosinophils % % Basophils % % Neutrophils # (1.3-7.7) k/uL Lymphocytes # (1.0-4.8) k/uL Monocytes # (0-1.0) k/uL Eosinophils # (0-0.7) k/uL Basophils # (0-0.2) k/uL Sodium (137-145) mmol/L Potassium (3.5-5.1) mmol/L Chloride (98-107) mmol/L Carbon Dioxide (22-30) mmol/L Anion Gap mmol/L BUN (9-20) mg/dL Creatinine (0.66-1.25) mg/dL Est GFR (CKD-EPI)AfAm (>60 ml/min/1.73 sqM) Est GFR (CKD-EPI)NonAf (>60 ml/min/1.73 sqM) Glucose (74-99) mg/dL POC Glucose (mg/dL) 112 H (75-99) mg/dL POC Glu Manager [employer] Nicole Duke Plasma Lactic Acid Ger (0.7-2.0) mmol/L Calcium (8.4-10.2) mg/dL Total Bilirubin (0.2-1.3) mg/dL AST (17-59) U/L ALT (4-49) U/L Alkaline Phosphatase (38-126) U/L Total Protein (6.3-8.2) g/dL Albumin (3.5-5.0) g/dL - Radiology Data Radiology results: image reviewed (X-ray of the left foot does show soft tissue swelling and osteopenia. Chronic changes.) Disposition Clinical Impression: Diabetic foot ulcer Disposition: ADMITTED IP TO THIS HOSP Is patient prescribed a controlled substance at d/c from ED?: No Referrals: Dl Waggoner MD [Primary Care Provider] - 1-2 days Decision Time: 12:27
[2021-06-30] MEDS: SODIUM CHLORIDE 0.9% 1,000 ML IV SCH ×3 (11:31→23:51)
[2021-06-30 11:53] LABS: Basophils # (A) 0.1 k/uL (0-0.2); Basophils % (A) 2 %; Eosinophils # (A) 0.3 k/uL (0-0.7); Eosinophils % (A) 4 %; HCT 37.8 % (39.0-53.0); HGB 12.2 gm/dL (13.0-17.5); Lymphocytes # (A) 1.4 k/uL (1.0-4.8); Lymphocytes % (A) 19 %; MCH 26.9 pg (25.0-35.0); MCHC 32.4 g/dL (31.0-37.0); Mean Platelet Volume 8.2; Monocytes # (A) 0.6 k/uL (0-1.0); Monocytes % (A) 8 %; Neutrophils # (A) 4.8 k/uL (1.3-7.7); Neutrophils % (A) 66 %; Platelet Count 260 k/uL (150-450); RBC 4.55 m/uL (4.30-5.90); RDW 15.1 % (11.5-15.5); WBC 7.2 k/uL (3.8-10.6)
[2021-06-30] MEDS ORDERED: VANCOMYCIN 2,500 MG in SODIUM CHLORIDE 0.9% 500 ML 500 ML IVPB ONE (12:00)
[2021-06-30 12:02] LABS: INR 1.1 (<1.2); Partial Thromboplastin Time 24.4 sec (22.0-30.0)
[2021-06-30 12:05] LABS: ALT 17 U/L (4-49); AST 22 U/L (17-59); African American GFR (CKD) >90 (>60 ml/min/1.73 sqM); Albumin 3.6 g/dL (3.5-5.0); Alkaline Phosphatase 146 U/L (38-126); Anion Gap 9 mmol/L; Blood Urea Nitrogen 27 mg/dL (9-20); Calcium 8.9 mg/dL (8.4-10.2); Carbon Dioxide 30 mmol/L (22-30); Chloride 98 mmol/L (98-107); Glucose 145 mg/dL (74-99); Non-African American GFR(CKD) 82 (>60 ml/min/1.73 sqM); Potassium 4.1 mmol/L (3.5-5.1); Sodium 137 mmol/L (137-145); Total Bilirubin 0.4 mg/dL (0.2-1.3); Total Protein 7.6 g/dL (6.3-8.2)
--- NOTE | 2021-06-30 12:09 | XR ---
Left foot HISTORY: Infection in the heel, ulcers 3 views of the left foot, correlation to prior exam dated 09/28/2020 There is marked soft tissue swelling. Bone mineralization is reduced. Healed distal third metatarsal fracture is seen. Plantar calcaneal spur, vascular soft tissue calcifications are present. No evident periostitis to suggest osteomyelitis. Tarsal bones appear irregular similar to prior exam, there is underlying arthropathy, there may be volume loss. IMPRESSION: Soft tissue swelling, osteopenia, chronic changes to the midfoot are again seen. Bone sca n on CT and/or MRI may be of benefit.
[2021-06-30 12:25] LABS: Glucose,Whole Blood 112 mg/dL (75-99)
[2021-06-30] MEDS ORDERED: MORPHINE SULFATE 4 MG/ML SYRINGE IV PRN (12:28)
[2021-06-30] MEDS ORDERED: ACETAMINOPHEN TAB 325 MG TAB PO PRN (12:28)
[2021-06-30] MEDS ORDERED: NALOXONE 0.4 MG/ML 1 ML VIAL IV PRN (12:28)
[2021-06-30] MEDS ORDERED: HYDROcodone/APAP 10-325MG 1 EACH TAB PO ONE (13:31)
[2021-06-30] MEDS ORDERED: SUMAtriptan succinate 50 MG TAB PO PRN (14:32)
[2021-06-30 17:05] LABS: Glucose,Whole Blood 133 mg/dL (75-99)
[2021-06-30] MEDS: NON FORMULARY DRUG (Morphine Pain Pump 1 DOSE) MISCELLANE SCH (17:07)
[2021-06-30] MEDS ORDERED: WARFARIN 5 MG TAB PO ONE (18:00)
[2021-06-30] MEDS: PANTOPRAZOLE 40 MG TABLET PO SCH (18:21)
[2021-06-30] MEDS: INSULIN ASPART (NovoLOG) 100 UNIT/ML VIAL SQ SCH (18:22)
[2021-06-30] MEDS: FLUTICASONE 220 MCG INHALER INHALATION SCH (19:29)
--- NOTE | 2021-06-30 19:47 | P.GSHP ---
History of Present Illness H&P Date: 06/30/21 Chief Complaint: Medical foot ulceration with infection left foot Patient is a pleasant 51-year-old male presenting to the emergency department with concerns with left foot infection. Onset of symptoms was around 3 weeks ago. Symptoms have worsened especially over the past 5 or 6 days. Patient is having fevers at home up to 102. Patient is having follow older and drainage, more so from the heel than the foot ulcer. Patient does have history of similar symptoms previously and does have diabetes. Patient has been on antibiotics as an outpatient she was last seen by myself Wednesday at the wound care center were reperformed to debridement in place patient on Floxin as well as Augmentin based on patient's culture and sensitivity. This was a tissue culture performed a week prior in the wound care. Patient called my office today and was instructed to either come to the office or go to the emergency room for evaluation and treatment she states that the purulent material came from the posterior heel was a greenish yellow discoloration. Denies in order. - Constitutional Constitutional: Reports as per HPI - EENT Eyes: bilateral as per HPI - Cardiovascular Cardiovascular: Reports as per HPI - Respiratory Respiratory: Reports as per HPI - Gastrointestinal Gastrointestinal: Reports as per HPI - Musculoskeletal Comment: Patient has Charcot joint deformity active on the left lower extremity has had surgical reconstruction for Charcot joint on the right lower extremity Musculoskeletal: Reports as per HPI - Integumentary Comment: A has a history of ulcerations on the lateral lower extremity the right lower extremity ulcer is healed and patient had Charcot joint reconstruction on the right lower extremity approximately 4-5 months ago. - Neurological Comment: She has diabetic neuropathy and autonomic sensory and motor - Psychiatric Psychiatric: Denies anxiety, Denies depression - Endocrine Endocrine: Denies fatigue, Denies weight change - Allergic/Immunologic Allergic/Immunologic: Reports as per HPI Past Medical History Past Medical History: Blood Disorder, Diabetes Mellitus, Deep Vein Thrombosis (DVT), GERD/Reflux, Hyperlipidemia, Hypertension, Musculoskeletal Disorder, Osteoarthritis (OA), Sleep Apnea/CPAP/BIPAP Additional Past Medical History / Comment(s): IDDM type II, neuropathy bilateral feet with R foot worse, charcot foot R/L, currently sores L foot and is NWB, recent surgery R foot with boot an can wt bear as tolerated, gastroparesis, hiatal hernia, esophageal narrowing (scarring)/past dysphagia/has had dilations, factor V leiden, 2 DVT's L leg, another superficial blood clot L leg, chronic back pain/has pain pump, DDD and bulging discs, legally blind L eye since , migraines, PVD, fatty liver, MEL with trilogy machine. History of Any Multi-Drug Resistant Organisms: None Reported Past Surgical History: Tonsillectomy Additional Past Surgical History / Comment(s): R foot/ankle surgery at [facility] with bone removal/hardware inserted, I&D L foot, pain pump insertion, colonoscopy, EGDs with dilations, UVPPP, eye surgery as an . Past Anesthesia/Blood Transfusion Reactions: Family History of Problems w/ Anesthesia Additional Past Anesthesia/Blood Transfusion Reaction / Comment(s): STATES "MOTHER CRASHES" "passes out"-with anesthesia,"needs to have a embalmer assistant dose" Smoking Status: Never smoker - Past Family History Father Family Medical History: Cancer Additional Family Medical History / Comment(s): BLADDER CANCER Mother Family Medical History: CVA/TIA, Diabetes Mellitus, Myocardial Infarction ([place]) Medications and Allergies Home Medications Medication Instructions Recorded Confirmed Type Latanoprost Ophth [Xalatan 0.005%] 1 drop BOTH EYES HS 01/23/14 06/30/21 History Simvastatin [Zocor] 20 mg PO HS 01/23/14 06/30/21 History Loratadine [Claritin] 10 mg PO DAILY 01/28/16 06/30/21 History Pantoprazole Sodium [Protonix] 40 mg PO BID 01/28/16 06/30/21 History metFORMIN HCL [Glucophage] 1,000 mg PO BID 01/28/16 06/30/21 History Morphine Pain Pump 1 dose INTRATHECA CONTINUOUS 05/05/17 06/30/21 History Pregabalin [Lyrica] 200 mg PO BID 09/30/17 06/30/21 History Ferrous Sulfate [Iron (65 MG 325 mg PO BID 10/25/20 06/30/21 History Elemental)] Fluticasone Propionate [Flovent 2 puff INHALATION RT-BID 10/25/20 06/30/21 History Hfa 220 mcg] Furosemide [Lasix] 40 mg PO DAILY 10/25/20 06/30/21 History SUMAtriptan succinate [Imitrex] 50 mg PO DAILY PRN 10/25/20 06/30/21 History HYDROcodone/APAP 10-325MG [[place] 1 tab PO BID 05/15/21 06/30/21 History 10-325] INSULIN LISPRO (HumaLOG) [humaLOG] See Protocol SQ ACHS 05/15/21 06/30/21 History Lubiprostone [Amitiza] 24 mcg PO BID 05/15/21 06/30/21 History Omeprazole 20 mg PO BID 05/15/21 06/30/21 History Potassium Chloride ER [K-Dur 10] 10 meq PO DAILY 05/15/21 06/30/21 History Warfarin Sodium 10 mg PO HS 05/15/21 06/30/21 History lisinopriL [Zestril] 2.5 mg PO DAILY 05/15/21 06/30/21 History Insulin Glargine,Hum.rec.anlog 50 unit SQ HS #0 05/20/21 06/30/21 Rx [Lantus Solostar Pen] Levofloxacin [Levaquin] 500 mg PO DAILY 06/30/21 06/30/21 History Allergies Allergy/AdvReac Type Severity Reaction Status Date / Time adhesive Allergy Rash/Hives Verified 06/30/21 12:51 Surgical - Exam Vital Signs Temp Pulse Resp BP Pulse Ox 98 F 71 20 128/68 96 06/30/21 10:40 06/30/21 10:40 06/30/21 10:40 06/30/21 10:40 06/30/21 10:40 - Cardiovascular She has edema of the left lower extremity greater than right diminished palpable pulses of bilateral lower extremity there is no digital hair - Integumentary She has full-thickness ulcerations on the plantar aspect of the left foot as well as posterior heel these are full-thickness through the dermis there is pain surrounding the posterior heel with edema noted of the plantar has redeveloped necrotic tissue marginally and centrally - Neurologic Decreased epicritic and pallesthetic sensations bilateral with diabetic neuropathy bilateral sensory autonomic and motor Results - Labs 06/30/21 11:26 06/30/21 11:26 Abnormal Lab Results - Last 24 Hours (Table) 06/30/21 06/30/21 06/30/21 Range/Units 11:26 11:26 12:22 Hgb 12.2 L (13.0-17.5) gm/dL Hct 37.8 L (39.0-53.0) % BUN 27 H (9-20) mg/dL Glucose 145 H (74-99) mg/dL POC Glucose (mg/dL) 112 H (75-99) mg/dL Alkaline Phosphatase 146 H (38-126) U/L 06/30/21 Range/Units 17:03 Hgb (13.0-17.5) gm/dL Hct (39.0-53.0) % BUN (9-20) mg/dL Glucose (74-99) mg/dL POC Glucose (mg/dL) 133 H (75-99) mg/dL Alkaline Phosphatase (38-126) U/L Microbiology - Last 24 Hours (Table) 06/30/21 11:26 Wound Culture - Preliminary Foot - Left Diabetes panel 06/30/21 Range/Units 11:26 Sodium 137 (137-145) mmol/L Potassium 4.1 (3.5-5.1) mmol/L Chloride 98 (98-107) mmol/L Carbon Dioxide 30 (22-30) mmol/L BUN 27 H (9-20) mg/dL Creatinine 1.05 (0.66-1.25) mg/dL Glucose 145 H (74-99) mg/dL Calcium 8.9 (8.4-10.2) mg/dL AST 22 (17-59) U/L ALT 17 (4-49) U/L Alkaline Phosphatase 146 H (38-126) U/L Total Protein 7.6 (6.3-8.2) g/dL Albumin 3.6 (3.5-5.0) g/dL Calcium panel 06/30/21 Range/Units 11:26 Calcium 8.9 (8.4-10.2) mg/dL Albumin 3.6 (3.5-5.0) g/dL Pituitary panel 06/30/21 Range/Units 11:26 Sodium 137 (137-145) mmol/L Potassium 4.1 (3.5-5.1) mmol/L Chloride 98 (98-107) mmol/L Carbon Dioxide 30 (22-30) mmol/L BUN 27 H (9-20) mg/dL Creatinine 1.05 (0.66-1.25) mg/dL Glucose 145 H (74-99) mg/dL Calcium 8.9 (8.4-10.2) mg/dL Adrenal panel 06/30/21 Range/Units 11:26 Sodium 137 (137-145) mmol/L Potassium 4.1 (3.5-5.1) mmol/L Chloride 98 (98-107) mmol/L Carbon Dioxide 30 (22-30) mmol/L BUN 27 H (9-20) mg/dL Creatinine 1.05 (0.66-1.25) mg/dL Glucose 145 H (74-99) mg/dL Calcium 8.9 (8.4-10.2) mg/dL Total Bilirubin 0.4 (0.2-1.3) mg/dL AST 22 (17-59) U/L ALT 17 (4-49) U/L Alkaline Phosphatase 146 H (38-126) U/L Total Protein 7.6 (6.3-8.2) g/dL Albumin 3.6 (3.5-5.0) g/dL Assessment and Plan Assessment: Infected diabetic foot ulcers left with Charcot joint disease left Plan: Exam. Discussed with patient findings and treatment. Currently on vancomycin and Rocephin IV for this infection. She would benefit from an incision and drainage of the ulcerations of the posterior heel and plantar surface of the left foot. Patient complications prognosis risk expectations of incision and drainage. We will perform this when available hopefully tomorrow a.m. however availability of the OR suite will dictate this. We also discussed with patient that I will be going out of town next week on vacation and coverage will be with Dr Baires out of [facility]. As an outpatient this particular physician has reconstructed his unilateral lower extremity for Charcot is familiar with the patient and patient's case. Patient was told he has the option of having another physician I&D in the area if available. She would like to proceed with myself performing the I and D and well patient signed consent for same hole dictation for nothing by mouth as well as any anticoagu lants. Patient is to keep the area covered and offloaded. will Follow Time with Patient: Greater than 30
[2021-06-30 20:14] LABS: Glucose,Whole Blood 234 mg/dL (75-99)
[2021-06-30] MEDS: PREGABALIN 100 MG CAP PO SCH (21:18)
[2021-06-30] MEDS: FERROUS SULFATE 325 MG TAB PO SCH (21:19)
[2021-06-30] MEDS: FAMOTIDINE 20 MG TAB PO SCH (21:19)
[2021-06-30] MEDS: ATORVASTATIN 10 MG TAB PO SCH (21:19)
[2021-06-30] MEDS: LATANOPROST 0.005% OPHTH DROPS 2.5 ML BTL BOTH EYES SCH (21:19)
[2021-06-30] MEDS: INSULIN DETEMIR (LEVEMIR) 100 UNIT/ML SYR SQ SCH (21:22)
[2021-06-30] MEDS: metFORMIN 500 MG TAB PO SCH (21:28)
[2021-06-30] MEDS: HYDROcodone/APAP 10-325MG 1 EACH TAB PO SCH (21:29)
[2021-06-30] MEDS: NON FORMULARY DRUG (Lubiprostone [Amitiza] 24 MCG Capsule) PO SCH (21:30)
--- NOTE | 2021-06-30 22:22 | P.HPIM ---
History of Present Illness H&P Date: 06/30/21 Chief Complaint: Left foot wound Hospital course: This is a pleasant 51-year-old male , follows with Dr. Waggoner. patient has a right Charcot foot and also found to have what osteomyelitis in October 2020. Received antibiotics. Was readmitted in January. Subsequently in January he went down to [facility] and had surgery carried out with some bone was removed and couple of plates and screws were placed in the foot. Patient has a boot. Able to weight bear. 2 days ago he had a follow-up appointment stool everything is fine. He is also has a supportive shoe on the left foot. 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 Patient was admitted here in end of April for a week at possible cellulitis. Patient now has developed a wound to the bottom of the left foot. It opened up and mid foot on the plantar surface than the heel opened up. Says been draining. He was given antibiotics by his foot doctor Dr. Coleman. More pus started draining. He started having fevers at home. He was sent in for the same. Appetite is fair. Patient was seen earlier by Dr. Coleman is planning to an I&D tomorrow morning. Patient is started on antibiotics in the ER. Patient has some pain in the left foot. Review of systems: GEN.: Fever EYES: None HEENT: None NECK: None RESPIRATORY: None CARDIOVASCULAR: None GASTROINTESTINAL: None GENITOURINARY: None MUSCULOSKELETAL: As above LYMPHATICS: None HEMATOLOGICAL: None PSYCHIATRY: None NEUROLOGICAL: Decreased sensation in the feet Past medical history to include: Bilateral Charcot foot, with left foot osteomyelitis with surgery in January 2021 + [place], diabetes, GERD, peripheral neuropathy, hypertension, hyperlipidemia, factor DLXXX mutation on and coordination, diabetic gastroparesis, decreased vision in the left eye, depression, history of 2 DVTs, sleep apnea uses BiPAP machine environmental ALLERGIES, fatty liver, herniated disc in the lower back, pain pump implant, narrowing of esophagus pending dilatation 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 No history of alcohol or smoking. Family history: Bladder cancer Physical examination: VITAL SIGNS: 98, 71, 20, 128/68, 96% room air GENERAL: Sitting of the edge of the bed, comfortable EYES: Pupils equal. Conjunctiva normal. HEENT: External appearance of nose and ears normal, oral cavity grossly normal. NECK: JVD unable to assess; masses not palpable. HEART: First and second heart sounds are normal; mild edema. LUNGS: Respiratory rate normal; distant breath sounds. ABDOMEN: Soft, nontender, liver spleen not palpable, no masses palpable. PSYCH: Alert and oriented x3; mood and affect normal. MUSCULOSKELETAL:No Clubbing/cyanosis;muscles-grossly intact. Patient got fungal changes in the nails of the foot. Dry skin. Charcot foot. Left foot wound on the plantar surface both in the midfoot and 2 with the heel. Pus drainage NEUROLOGICAL: [Cranial nerves grossly intact; no facial asymmetry, decreased sensation distally. Power grossly intact INVESTIGATIONS, reviewed in the clinical context: . White count 7.2 hemoglobin 12.2 platelets of 68 potassium 4.1 BUN 27 creatinine 1.05 Left foot: Soft tissue swelling, osteopenia, chronic changes at the midfoot. Assessment and plan: -Left foot plantar abscess. Symptoms present for at least 2 weeks. I'm con cerned it may be rather deep. Also concern about underlying osteomyelitis. IV vancomycin. Consultation to ID, Dr. Coleman, vascular -Bilateral foot Charcot foot from diabetes Patient has a boot for the right leg and also supportive shoe for the left leg -Morbid obesity, BMI 46.8 Weight loss measures and follow with PCP -Diabetes mellitus type 2, chronically on insulin uncontrolled with hyperg lycemia Follow Accu-Cheks. Levemir 40 units daily at bedtime -GERD On Pepcid -Diabetic peripheral neuropathy On Lyrica -Hyperlipidemia Lipitor -Essential hypertension Follow blood pressure closely -Chronic pain syndrome. 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 Coleman, ID. IV vancomycin. Resume home medications. Follow Accu-Cheks. I&D tomorrow morning. Wound culture. Care was discussed with the patient. Will need workup further for osteomyelitis. Given the complexity and severity of patient's condition expect the patient to be in the hospital at least for 2 overnights Past Medical History Past Medical History: Blood Disorder, Diabetes Mellitus, Deep Vein Thrombosis (DVT), GERD/Reflux, Hyperlipidemia, Hypertension, Musculoskeletal Disorder, Osteoarthritis (OA), Sleep Apnea/CPAP/BIPAP Additional Past Medical History / Comment(s): FACTOR 5 LEIDEN, HX OF (2) DVT'S LEFT LEG & (1) SUPERFICIAL CLOT,hiatal hernia, USES BIPAP MACHINE trilogy machine at night, ENVIRONMENTAL ALLERGIES, FATTY LIVER, DDD & BULDGING DISC WITH BACK PAIN, pain pump implant,CANE, PARTIALLY BLIND LEFT EYE, STATES SCARRING WITH NARROWING OF ESOPHAGUS & Hx of DIFFICULTY SWALLOWING, currently no difficulty swallowing. MIGRAINES, PVD, gastroparesis, charcot of right foot really bad, charcot of left foot less severe. right foot ulcer started in August 2020 History of Any Multi-Drug Resistant Organisms: None Reported Past Surgical History: Tonsillectomy Additional Past Surgical History / Comment(s): eye surgery as infant, EGD WITH DILATION X2 , uppp sx for sleep apnea, pain pump insertion Past Anesthesia/Blood Transfusion Reactions: Family History of Problems w/ Anesthesia Additional Past Anesthesia/Blood Transfusion Reaction / Comment(s): STATES "MOTHER CRASHES" "passes out"-with anesthesia,"needs to have a test architect dose" Past Psychological History: Anxiety, Depression Smoking Status: Never smoker Past Alcohol Use History: None Reported Past Drug Use History: None Reported - Past Family History Father Family Medical History: Cancer Additional Family Medical History / Comment(s): BLADDER CANCER Mother Family Medical History: CVA/TIA, Diabetes Mellitus, Myocardial Infarction ([place]) Medications and Allergies Home Medications Medication Instructions Recorded Confirmed Type Latanoprost Ophth [Xalatan 0.005%] 1 drop BOTH EYES HS 01/23/14 06/30/21 History Simvastatin [Zocor] 20 mg PO HS 01/23/14 06/30/21 History Loratadine [Claritin] 10 mg PO DAILY 01/28/16 06/30/21 History Pantoprazole Sodium [Protonix] 40 mg PO BID 01/28/16 06/30/21 History metFORMIN HCL [Glucophage] 1,000 mg PO BID 01/28/16 06/30/21 History Morphine Pain Pump 1 dose INTRATHECA CONTINUOUS 05/05/17 06/30/21 History Pregabalin [Lyrica] 200 mg PO BID 09/30/17 06/30/21 History Ferrous Sulfate [Iron (65 MG 325 mg PO BID 10/25/20 06/30/21 History Elemental)] Fluticasone Propionate [Flovent 2 puff INHALATION RT-BID 10/25/20 06/30/21 History Hfa 220 mcg] Furosemide [Lasix] 40 mg PO DAILY 10/25/20 06/30/21 History SUMAtriptan succinate [Imitrex] 50 mg PO DAILY PRN 10/25/20 06/30/21 History HYDROcodone/APAP 10-325MG [[place] 1 tab PO BID 05/15/21 06/30/21 History 10-325] INSULIN LISPRO (HumaLOG) [humaLOG] See Protocol SQ ACHS 05/15/21 06/30/21 History Lubiprostone [Amitiza] 24 mcg PO BID 05/15/21 06/30/21 History Omeprazole 20 mg PO BID 05/15/21 06/30/21 History Potassium Chloride ER [K-Dur 10] 10 meq PO DAILY 05/15/21 06/30/21 History Warfarin Sodium 10 mg PO HS 05/15/21 06/30/21 History lisinopriL [Zestril] 2.5 mg PO DAILY 05/15/21 06/30/21 History Insulin Glargine,Hum.rec.anlog 50 unit SQ HS #0 05/20/21 06/30/21 Rx [Lantus Solostar Pen] Levofloxacin [Levaquin] 500 mg PO DAILY 06/30/21 06/30/21 History Allergies Allergy/AdvReac Type Severity Reaction Status Date / Time adhesive Allergy Rash/Hives Verified 06/30/21 12:51 Physical Exam Vitals: Vital Signs Temp Pulse Resp BP Pulse Ox 06/30/21 13:24 79 18 113/64 96 06/30/21 11:38 68 18 114/73 96 06/30/21 10:40 98 F 71 20 128/68 96 Intake and Output 06/29/21 06/30/21 06/30/21 22:59 06:59 14:59 Other: Weight 131.542 kg Results CBC & Chem 7: 06/30/21 11:26 06/30/21 11:26 Labs: Abnormal Lab Results - Last 24 Hours (Table) 06/30/21 06/30/21 06/30/21 Range/Units 11:26 11:26 12:22 Hgb 12.2 L (13.0-17.5) gm/dL Hct 37.8 L (39.0-53.0) % BUN 27 H (9-20) mg/dL Glucose 145 H (74-99) mg/dL POC Glucose (mg/dL) 112 H (75-99) mg/dL Alkaline Phosphatase 146 H (38-126) U/L
--- NOTE | 2021-06-30 23:35 | P.CONS ---
History of Present Illness - Reason for Consult Consult date: 06/30/21 Left diabetic foot infection Requesting physician: Heri Alvarez - Chief Complaint Fever and worsening left foot wound and cellulitis x few days - History of Present Illness Patient is a 51-year male with a past medical history significant for left diabetic foot wound in this patient who did have a Charcot deformity and apparently the patient did have surgery Quarles syndrome antibiotic is deformity patient will follow with Dr. Coleman at [facility] patient started having a problem with the wound on the plantar aspect of his left foot that will be going on for about 2 weeks and the patient mention he has been seen twice at [facility] and has been treated with course of oral antibiotic the patient not sure about the name, patient is now presenting to the [facility] ER with concern for increasing swelling redness and drainage from his left foot along with a fever of 102 degrees Fahrenheit at home patient been complaining of some foul-smelling drainage from the left foot with 2 the patient has been evaluated by the ER physician on arrival to the ER patient however did not have any fever patient did have a normal white count kidney function has been normal local culture has been obtained the patient was started on vancomycin has been admitted to hospital infectious disease was consulted for further management of antibiotic therapy patient did have a x-ray of the foot which shows soft tissue swelling osteopenia chronic changes to the midfoot bones consider MRI may be of benefit Review of Systems Positive point has been mentioned in the HPI rest of the systems are negative Past Medical History Past Medical History: Blood Disorder, Diabetes Mellitus, Deep Vein Thrombosis (DVT), GERD/Reflux, Hyperlipidemia, Hypertension, Musculoskeletal Disorder, Osteoarthritis (OA), Sleep Apnea/CPAP/BIPAP Additional Past Medical History / Comment(s): IDDM type II, neuropathy bilateral feet with R foot worse, charcot foot R/L, currently sores L foot and is NWB, recent surgery R foot with boot an can wt bear as tolerated, gastroparesis, hiatal hernia, esophageal narrowing (scarring)/past dysphagia/has had dilations, factor V leiden, 2 DVT's L leg, another superficial blood clot L leg, chronic back pain/has pain pump, DDD and bulging discs, legally blind L eye since , migraines, PVD, fatty liver, MEL with trilogy machine. History of Any Multi-Drug Resistant Organisms: None Reported Past Surgical History: Tonsillectomy Additional Past Surgical History / Comment(s): R foot/ankle surgery at [facility] with bone removal/hardware inserted, I&D L foot, pain pump insertion, colonoscopy, EGDs with dilations, UVPPP, eye surgery as an . 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" Smoking Status: Never smoker - Past Family History Father Family Medical History: Cancer Additional Family Medical History / Comment(s): BLADDER CANCER Mother Family Medical History: CVA/TIA, Diabetes Mellitus, Myocardial Infarction ([place]) Medications and Allergies Home Medications Medication Instructions Recorded Confirmed Type Latanoprost Ophth [Xalatan 0.005%] 1 drop BOTH EYES HS 01/23/14 06/30/21 History Simvastatin [Zocor] 20 mg PO HS 01/23/14 06/30/21 History Loratadine [Claritin] 10 mg PO DAILY 01/28/16 06/30/21 History Pantoprazole Sodium [Protonix] 40 mg PO BID 01/28/16 06/30/21 History metFORMIN HCL [Glucophage] 1,000 mg PO BID 01/28/16 06/30/21 History Morphine Pain Pump 1 dose INTRATHECA CONTINUOUS 05/05/17 06/30/21 History Pregabalin [Lyrica] 200 mg PO BID 09/30/17 06/30/21 History Ferrous Sulfate [Iron (65 MG 325 mg PO BID 10/25/20 06/30/21 History Elemental)] Fluticasone Propionate [Flovent 2 puff INHALATION RT-BID 10/25/20 06/30/21 History Hfa 220 mcg] Furosemide [Lasix] 40 mg PO DAILY 10/25/20 06/30/21 History SUMAtriptan succinate [Imitrex] 50 mg PO DAILY PRN 10/25/20 06/30/21 History HYDROcodone/APAP 10-325MG [[place] 1 tab PO BID 05/15/21 06/30/21 History 10-325] INSULIN LISPRO (HumaLOG) [humaLOG] See Protocol SQ ACHS 05/15/21 06/30/21 History Lubiprostone [Amitiza] 24 mcg PO BID 05/15/21 06/30/21 History Omeprazole 20 mg PO BID 05/15/21 06/30/21 History Potassium Chloride ER [K-Dur 10] 10 meq PO DAILY 05/15/21 06/30/21 History Warfarin Sodium 10 mg PO HS 05/15/21 06/30/21 History lisinopriL [Zestril] 2.5 mg PO DAILY 05/15/21 06/30/21 History Insulin Glargine,Hum.rec.anlog 50 unit SQ HS #0 05/20/21 06/30/21 Rx [Lantus Solostar Pen] Levofloxacin [Levaquin] 500 mg PO DAILY 06/30/21 06/30/21 History Allergies Allergy/AdvReac Type Severity Reaction Status Date / Time adhesive Allergy Rash/Hives Verified 06/30/21 12:51 Physical Exam Vitals: Vital Signs Temp Pulse Pulse Resp BP BP Pulse Ox 06/30/21 16:50 98.8 F 70 18 100/67 95 06/30/21 16:18 98 F 80 18 97/53 97 06/30/21 15:57 80 18 97/53 97 06/30/21 13:24 79 18 113/64 96 06/30/21 11:38 68 18 114/73 96 06/30/21 10:40 98 F 71 20 128/68 96 Intake and Output 06/30/21 06/30/21 06/30/21 06:59 14:59 22:59 Other: Weight 131.542 kg GENERAL DESCRIPTION: Middle-aged male lying in bed, no distress. No tachypnea or accessory muscle of respiration use. HEENT: Shows Pallor , no scleral icterus. Oral mucous membrane is dry. No pharyngeal erythema or thrush NECK: Trachea central, no thyromegaly. LUNGS: Unlabored breathing. Clear to auscultation anteriorly. No wheeze or crackle. HEART: S1, S2, regular rate and rhythm. No loud murmur ABDOMEN: Soft, no tenderness , guarding or rigidity, no organomegaly EXTREMITIES: Left foot did have a swelling wound on the plantar aspect which is deep culture has been obtained also have a wound to the left posterior heel area with some slough tissue SKIN: No rash, no masses palpable. NEUROLOGICAL: The patient is awake, alert, oriented x3, mood and affect normal. Results CBC & Chem 7: 06/30/21 11:26 06/30/21 11:26 Labs: Abnormal Lab Results - Last 24 Hours (Table) 06/30/21 06/30/21 06/30/21 Range/Units 11:26 11:26 12:22 Hgb 12.2 L (13.0-17.5) gm/dL Hct 37.8 L (39.0-53.0) % BUN 27 H (9-20) mg/dL Glucose 145 H (74-99) mg/dL POC Glucose (mg/dL) 112 H (75-99) mg/dL Alkaline Phosphatase 146 H (38-126) U/L 06/30/21 Range/Units 17:03 Hgb (13.0-17.5) gm/dL Hct (39.0-53.0) % BUN (9-20) mg/dL Glucose (74-99) mg/dL POC Glucose (mg/dL) 133 H (75-99) mg/dL Alkaline Phosphatase (38-126) U/L Assessment and Plan (1) Diabetic foot ulcer Current Visit: Yes Status: Acute Code(s): E11.621 - TYPE 2 DIABETES MELLITUS WITH FOOT ULCER; L97.509 - NON-PRESSURE CHRONIC ULCER OTH PRT UNSP FOOT W UNSP SEVERITY SNOMED Code(s): 575891258 Plan: 1patient presented to hospital with a left diabetic foot infection in this patient did have a chronic nonhealing wound on the left foot plantar aspect also with left posterior heel which is a new wound failing outpatient oral biotic therapy will need to cover for both gram-positive as well as gram-negative pathogen to be the likely bacteria responsible for this infection. 2patient benefit from MRI of the left foot to determine the extent of the disease. 3we will check inflammatory markers. 4vancomycin pharmacy to dose target trough of 15 while watching kidney function and vancomycin trough closely 5cefepime 2 g every 8 hour We will follow on clinical condition and cultures to further adjust medication if needed Thank you for this consultation will follow this patient along with you Time with Patient: Less than 30
[2021-06-30] MEDS: VANCOMYCIN 2,000 MG in SODIUM CHLORIDE 0.9% 500 ML 500 ML IVPB SCH (23:49)
--- NOTE | 2021-06-30 23:49 | XR ---
EXAMINATION TYPE: XR chest 1V DATE OF EXAM: 06/30/2021 COMPARISON: 05/15/2021 HISTORY: Weakness TECHNIQUE: 2 views FINDINGS: There is no heart failure nor confluent pneumonic infiltrate. There is some mild increased interstitial density in the mid lung garcia. Bony thorax is intact. Heart size is fairly normal. Ther e is no pleural effusion. IMPRESSION: Slight increased lung markings are improved compared to last exam and consistent with res olving interstitial pneumonia and atelectasis. Normal heart.
[2021-07-01 07:05] LABS: Glucose,Whole Blood 96 mg/dL (75-99)
[2021-07-01] MEDS: INSULIN ASPART (NovoLOG) 100 UNIT/ML VIAL SQ SCH ×3 (07:10→17:20)
[2021-07-01] MEDS: FLUTICASONE 220 MCG INHALER INHALATION SCH ×2 (08:44→19:29)
[2021-07-01] MEDS ORDERED: IV FLUID CONTINUATION 1,000 ML IV ONE (10:03)
[2021-07-01 10:12] LABS: Glucose,Whole Blood 81 mg/dL (75-99)
[2021-07-01] MEDS ORDERED: LIDOCAINE 1% INJ 10MG/ML (20 ML MDV) SQ ONE ×2 (11:34)
[2021-07-01] MEDS ORDERED: SODIUM CHLORIDE 0.9% IRRIGATION ONE (11:37)
[2021-07-01] MEDS ORDERED: VANCOMYCIN IRRIGATION ONE (11:37)
--- NOTE | 2021-07-01 12:11 | P.OP ---
Date of Procedure: 07/01/21 Preoperative Diagnosis: Infected diabetic foot ulcer left with cellulitis Postoperative Diagnosis: Same Procedure(s) Performed: I&D diabetic foot ulcers with infection left foot 2 Anesthesia: local Surgeon: Ayo Coleman Estimated Blood Loss (ml): 20 Pathology: none sent Condition: stable Disposition: floor Indications for Procedure: Infected diabetic foot ulcers left foot Operative Findings: Consistent with clinical findings Description of Procedure: Patient was brought to the operating room after having been nothing by mouth since previous midnight with patient's full consent knowledge of surgery being a incision and drainage of the infected wounds in an attempt to remove the bioburden and to help decrease the risk of loss of leg limb or due to the infection. Patient was seen in the preoperative holding area where his left foot was identified and we answered all patient's questions out the surgery about potential outcomes risk complications prognosis. Patient is brought to the OR and placed on the OR table in a lateral position and sedation was given. Left foot was then prepped and draped in the usual aseptic manner. Attention was then directed to the posterior aspect of the left heel where a 4-5 cm full- thickness ulceration was noted with necrotic tissue marginally and centrally. The wound was inspected and there was found to be an abscess tracking proximally and medially as well as plantarly within the wound. The wounds was anesthetized proximally on the posterior heel area using a total of 20 mL of 2% Xylocaine plain in a proximal regional block. Using a sterile 15 blade the necrotic tissu e was debrided marginally and centrally. After which a 15 blade was used to enter the dermis and open the abscessed areas full-thickness down to the subcutaneous tissue. Abscesses were opened bluntly and then were curetted of all necrotic tissue. Attention was then directed to the plantar aspect left foot where a another full-thickness ulcer was noted measuring approximately 4 cm in diameter. The wound was inspected and a abscess was noted tracking proximally and laterally. The necrotic tissue marginally and centrally of the wound was then removed with another sterile 10 blade. This necrotic tissue was removed a 15 blade was used to open the abscessed full-thickness down to the deep fascia planes. The wound was inspected and all necrotic tissue was removed with a sterile curette. After all necrotic tissue was removed from both wounds using a Pulsavac 3 L of sterile saline with 2 g of vancomycin were used to irrigate the wounds thoroughly. Once this was performed the wounds were inspected and good perfusion was noted throughout all areas the wounds and skin margins tissue culture was then taken from the wounds for microbiology to determine if any pathogens Advair still present and proper treatment The wounds were then packed with iodoform gauze and the skin edges were reapproximated on the posterior heel area with a sterile stage staple 2 without retraction into promote easier closure at a later date if needed. The wound was then dressed in a wet-to-dry fashion in a mildly compressive manner using 4 x 4's Kerlix and ABDs pads. Once these were applied a Speedy wrap was applied over the dressing to help keep the dressing intact. The patient was brought to recovery room having tolerated the procedure and anesthesia well monitored and then transferred to the floor for further in-house care.
--- NOTE | 2021-07-01 12:13 | P.PN ---
Subjective Progress Note Date: 07/01/21 Principal diagnosis: Infected diabetic foot ulcers left with cellulitis Patient is seen in the preoperative area prior to surgery patient is resting comfortably with no questions or concerns Objective - Vital Signs Vital signs: Vital Signs Temp 98.6 F 07/01/21 12:05 Pulse 73 07/01/21 12:05 Resp 16 07/01/21 12:05 BP 136/70 07/01/21 12:05 Pulse Ox 95 07/01/21 12:05 Intake & Output 06/30/21 07/01/21 07/01/21 18:59 06:59 18:59 Intake Total 550 0 451 Output Total 50 Balance 550 0 401 Weight 131.542 kg Intake: IV 451 Intake, IV Titration 550 Amount Vancomycin 2,000 mg In 500 Sodium Chloride 0.9% 500 ml 500 ml @ 167 mls/hr IVPB Q12H [facility] Rx#: [id number] cefTRIAXone 1 gm In 50 Sodium Chloride 0.9% 50 ml @ 100 mls/hr IVPB ONCE STA Rx#:[id number] Oral 0 Output: Estimated Blood Loss 50 Other: Voiding Method Urinal # Voids 1 2 - Exam Patient has full-thickness wounds with continued erythema edema necrotic tissue about the plantar and posterior heel area there is pain with palpation there is no active purulence. Neurovascular status unchanged - Labs CBC & Chem 7: 06/30/21 11:26 06/30/21 11:26 Labs: Abnormal Lab Results - Last 24 Hours (Table) 06/30/21 06/30/21 06/30/21 Range/Units 12:22 17:03 20:13 POC Glucose (mg/dL) 112 H 133 H 234 H (75-99) mg/dL Microbiology - Last 24 Hours (Table) 06/30/21 11:26 Gram Stain - Preliminary Foot - Left Wound Culture - Preliminary Presumptive Staph aureus 06/30/21 19:11 Gram Stain - Preliminary Foot - Left Wound Culture - Preliminary Assessment and Plan Assessment: Infected diabetic foot ulcers left with Charcot joint disease left Plan: Exam we discussed with patient the surgical plan that being an I&D we reviewed risks and complications expectations prognosis with the patient. Patient is still consenting for the procedure will proceed with surgical plan.
[2021-07-01 12:19] LABS: Glucose,Whole Blood 71 mg/dL (75-99)
[2021-07-01] MEDS: SODIUM CHLORIDE 0.9% 1,000 ML IV SCH ×2 (12:55→17:27)
[2021-07-01] MEDS: NON FORMULARY DRUG (Lubiprostone [Amitiza] 24 MCG Capsule) PO SCH ×2 (12:57→21:30)
[2021-07-01] MEDS: CEFEPIME 2 GM in SODIUM CHLORIDE 0.9% 100 ML IVPB SCH ×2 (12:57→17:48)
[2021-07-01] MEDS: LORATADINE 10 MG TAB PO SCH (13:00)
[2021-07-01] MEDS: FERROUS SULFATE 325 MG TAB PO SCH ×2 (13:01→21:36)
[2021-07-01] MEDS: FAMOTIDINE 20 MG TAB PO SCH ×2 (13:01→21:37)
[2021-07-01] MEDS: HYDROcodone/APAP 10-325MG 1 EACH TAB PO SCH ×2 (13:01→21:37)
[2021-07-01] MEDS: PREGABALIN 100 MG CAP PO SCH ×2 (13:01→21:37)
[2021-07-01] MEDS: metFORMIN 500 MG TAB PO SCH ×2 (13:01→21:37)
[2021-07-01] MEDS: PANTOPRAZOLE 40 MG TABLET PO SCH ×2 (13:01→17:48)
[2021-07-01] MEDS: VANCOMYCIN 2,000 MG in SODIUM CHLORIDE 0.9% 500 ML 500 ML IVPB SCH ×2 (13:02→23:56)
[2021-07-01] MEDS: NON FORMULARY DRUG (Morphine Pain Pump 1 DOSE) MISCELLANE SCH (14:43)
[2021-07-01 17:13] LABS: Glucose,Whole Blood 106 mg/dL (75-99)
[2021-07-01] MEDS ORDERED: WARFARIN 5 MG TAB PO ONE (18:00)
[2021-07-01] MEDS: traMADol 50 MG TAB PO PRN (19:10)
--- NOTE | 2021-07-01 20:59 | P.PN ---
Progress Note - Text Progress Note Date: 07/01/21 Hospital course: This is a pleasant 51-year-old male , follows with Dr. Waggoner. patient has a rig ht Charcot foot and also found to have what osteomyelitis in October 2020. Received antibiotics. Was readmitted in January. Subsequently in January he went down to [facility] and had surgery carried out with some bone was removed and couple of plates and screws were placed in the foot. Patient has a boot. Able to weight bear. 2 days ago he had a follow-up appointment stool everything is fine. He is also has a supportive shoe on the left foot. 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 Patient was admitted here in end of April for a week at possible cellulitis. Patient now has developed a wound to the bottom of the left foot. It opened up and mid foot on the plantar surface than the heel opened up. Says been draining. He was given antibiotics by his foot doctor Dr. Coleman. More pus started draining. He started having fevers at home. He was sent in for the same. Appetite is fair. Patient was seen earlier by Dr. Coleman is planning to an I&D tomorrow morning. Patient is started on antibiotics in the ER. Patient has some pain in the left foot. July 01: Patient taken to the OR per Dr. Coleman this morning. I&D of a deep plantar wound was carried out. Continue dressing in place. No fever. Cultures pending. On IV cefepime and vancomycin. I did discuss with Dr. Macedo from vascular to assess patient's vascular status. Concern about underlying osteomyelitis was discussed with Dr. Cifuentes from ID. oral intake fair. Active Medications Acetaminophen (Acetaminophen Tab 325 Mg Tab) 650 mg PO Q6HR PRN PRN Reason: Mild Pain or Fever > 100.5 Hydrocodone Bitart/Acetaminophen (Hydrocodone/Apap 10-325mg 1 Each Tab) 1 each PO BID [facility] Last Admin: 07/01/21 13:01 Dose: 1 each Documented by: Atorvastatin Calcium (Atorvastatin 10 Mg Tab) 10 mg PO [facility] Last Admin: 06/30/21 21:19 Dose: 10 mg Documented by: Famotidine (Famotidine 20 Mg Tab) 20 mg PO BID [facility] Last Admin: 07/01/21 13:01 Dose: 20 mg Documented by: Ferrous Sulfate (Ferrous Sulfate 325 Mg Tab) 325 mg PO BID [facility] Last Admin: 07/01/21 13:01 Dose: 325 mg Documented by: Fluticasone Propionate (Fluticasone 220 Mcg Inhaler) 2 puff INHALATION RT-BID [facility] Last Admin: 07/01/21 19:29 Dose: 2 puff Documented by: Sodium Chloride (Saline 0.9%) 1,000 mls @ 130 mls/hr IV .Q7H42M [facility] Last Admin: 07/01/21 17:27 Dose: Not Given Documented by: Vancomycin HCl 2,000 mg/ (Sodium Chloride) 500 mls @ 167 mls/hr IVPB Q12H [facility] Last Admin: 07/01/21 13:02 Dose: 167 mls/hr Documented by: Cefepime HCl 2 gm/ Sodium (Chloride) 100 mls @ 25 mls/hr IVPB Q8HR [facility] Last Admin: 07/01/21 17:48 Dose: 25 mls/hr Documented by: Insulin Aspart (Insulin Aspart (Novolog) 100 Unit/Ml Vial) 0 unit SQ AC-TID [facility]; Protocol Last Admin: 07/01/21 17:20 Dose: Not Given Documented by: Insulin Detemir (Insulin Detemir (Levemir) 100 Unit/Ml Syr) 40 unit SQ [facility] Last Admin: 06/30/21 21:22 Dose: 40 unit Documented by: Latanoprost (Latanoprost 0.005% Ophth Drops 2.5 Ml Btl) 1 drops BOTH EYES [facility] Last Admin: 06/30/21 21:19 Dose: 1 drops Documented by: Lisinopril (Lisinopril 2.5 Mg Tab) 2.5 mg PO DAILY [facility] Last Admin: 07/01/21 13:00 Dose: 2.5 mg Documented by: Loratadine (Loratadine 10 Mg Tab) 10 mg PO DAILY [facility] Last Admin: 07/01/21 13:00 Dose: 10 mg Documented by: Metformin HCl (Metformin 500 Mg Tab) 1,000 mg PO BID [facility] Last Admin: 07/01/21 13:01 Dose: 1,000 mg Documented by: Miscellaneous Information (Warfarin Per Pharmacy) 1 each MISCELLANE DIRECTED PRN PRN Reason: Per Protocol Miscellaneous Information (Vancomycin Trough Due 1 Each Misc) 0 each MISCELLANE DIRECTED ONE Stop: 07/02/21 23:01 Morphine Sulfate (Morphine Sulfate 4 Mg/Ml Syringe) 4 mg IV Q4HR PRN PRN Reason: Severe Pain Naloxone HCl (Naloxone 0.4 Mg/Ml 1 Ml Vial) 0.2 mg IV Q2M PRN PRN Reason: Opioid Reversal Non-Formulary Medication (Lubiprostone [Amitiza]) 24 mcg PO BID [facility] Last Admin: 07/01/21 12:57 Dose: Not Given Documented by: Non-Formulary Medication (Morphine Pain Pump) 1 dose MISCELLANE CONTINUOUS [facility] Last Admin: 07/01/21 14:43 Dose: Not Given Documented by: Pantoprazole Sodium (Pantoprazole 40 Mg Tablet) 40 mg PO AC-BID [facility] Last Admin: 07/01/21 17:48 Dose: 40 mg Documented by: Pregabalin (Pregabalin 100 Mg Cap) 200 mg PO BID [facility] Last Admin: 07/01/21 13:01 Dose: 200 mg Documented by: Sumatriptan Succinate (Sumatriptan Succinate 50 Mg Tab) 50 mg PO DAILY PRN PRN Reason: Migraine Headache Tramadol HCl (Tramadol 50 Mg Tab) 50 mg PO Q6H PRN PRN Reason: Moderate Pain Last Admin: 07/01/21 19:10 Dose: 50 mg Documented by: Past medical history to include: Bilateral Charcot foot, with left foot osteomyelitis with surgery in January 2021 + Blum, diabetes, GERD, peripheral neuropathy, hypertension, hyperlipidemia, factor DLXXX mutation on and coordination, diabetic gastroparesis, decreased vision in the left eye, depression, history of 2 DVTs, sleep apnea uses BiPAP machine environmental ALLERGIES, fatty liver, herniated disc in the lower back, pain pump implant, narrowing of esophagus pending dilatation 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 No history of alcohol or smoking. Family history: Bladder cancer Physical examination: VITAL SIGNS: 98, 72, 16, 127/70, 92% room air GENERAL: Sitting of the edge of the bed, comfortable EYES: Pupils equal. Conjunctiva normal. HEENT: External appearance of nose and ears normal, oral cavity grossly normal. NECK: JVD unable to assess; masses not palpable. HEART: First and second heart sounds are normal; mild edema. LUNGS: Respiratory rate normal; distant breath sounds. ABDOMEN: Soft, nontender, liver spleen not palpable, no masses palpable. PSYCH: Alert and oriented x3; mood and affect normal. MUSCULOSKELETAL:No Clubbing/cyanosis;muscles-grossly intact. Patient got fungal changes in the nails of the foot. Dry skin. Charcot foot. Left foot wound on the plantar surface both in the midfoot and 2 with the heel. Pus drainage NEUROLOGICAL: [Cranial nerves grossly intact; no facial asymmetry, decreased sensation distally. Power grossly intact INVESTIGATIONS, reviewed in the clinical context: . White count 7.2 hemoglobin 12.2 platelets of 68 potassium 4.1 BUN 27 creatinine 1.05 Left foot: Soft tissue swelling, osteopenia, chronic changes at the midfoot. Assessment and plan: -Left foot plantar abscess. Symptoms present for at least 2 weeks. Slow to respond I&D : by Dr. Coleman on July 01. Concern for underlying osteomyelitis. On IV cefepime and vancomycin. Follow up with ID -Bilateral foot Charcot foot from diabetes Patient has a boot for the right leg and also supportive shoe for the left leg -Morbid obesity, BMI 46.8 Weight loss measures and follow with PCP -Diabetes mellitus type 2, chronically on insulin uncontrolled with hy perglycemia Follow Accu-Cheks. Levemir 40 units daily at bedtime -GERD On Pepcid -Diabetic peripheral neuropathy On Lyrica -Hyperlipidemia Lipitor -Essential hypertension Follow blood pressure closely -Chronic pain syndrome. Patient is a morphine pain pump -Primary osteoarthritis Pain medications as needed -Obstructive sleep apnea Continue home CPAP -factor V Leyden mutation On Coumadin -Chronic DVTs in the left leg Coumadin monitoring -Hepatic steatosis, nonalcoholic fatty liver disease -Herniated disc in the lumbar spine Pain medications when necessary -Partial blindness of left eye -Diabetic gastroparesis -Anxiety depression On Cymbalta Status post I&D of the plantar abscess. Cultures pending. IV cefepime IV vancomycin. Discussed with Dr. Macedo from vascular to assess patient's vascular status. Follow with ID. Discussed with patient
[2021-07-01 21:24] LABS: Glucose,Whole Blood 136 mg/dL (75-99)
[2021-07-01] MEDS: ATORVASTATIN 10 MG TAB PO SCH (21:36)
[2021-07-01] MEDS: LATANOPROST 0.005% OPHTH DROPS 2.5 ML BTL BOTH EYES SCH (21:38)
[2021-07-01] MEDS: INSULIN DETEMIR (LEVEMIR) 100 UNIT/ML SYR SQ SCH (21:39)
--- NOTE | 2021-07-01 22:23 | P.PN ---
Subjective Progress Note Date: 07/01/21 Principal diagnosis: Left diabetic foot infection Patient is a 51-year-old male with a past medical history significant for left Charcot foot and history of chronic nonhealing wound to the left foot area admitted to the hospital with infected left foot with a wound to the left foot plantar aspect as well as the left posterior heel area. The patient is status post surgical drainage of the left foot wounds 2 and drainage of the abscess completed on 07/01/2021 On today's evaluation that is 07/01/2021, the patient denies having any fever or chills, the patient denies having any chest pain shortness of breath or cough no nausea no vomiting no abdominal pain and denies any worsening pain to the left foot area Objective - Vital Signs Vital signs: Vital Signs Temp 97.9 F 07/01/21 13:00 Pulse 70 07/01/21 13:00 Resp 20 07/01/21 13:00 BP 126/73 07/01/21 13:00 Pulse Ox 97 07/01/21 13:00 Intake & Output 06/30/21 07/01/21 07/01/21 18:59 06:59 18:59 Intake Total 550 0 801 Output Total 50 Balance 550 0 751 Weight 131.542 kg Intake: IV 801 Intake, IV Titration 550 Amount Vancomycin 2,000 mg In 500 Sodium Chloride 0.9% 500 ml 500 ml @ 167 mls/hr IVPB Q12H [facility] Rx#: [id number] cefTRIAXone 1 gm In 50 Sodium Chloride 0.9% 50 ml @ 100 mls/hr IVPB [facility] Rx#:[id number] Oral 0 Output: Estimated Blood Loss 50 Other: Voiding Method Urinal # Voids 1 2 - Exam GENERAL DESCRIPTION: Middle-age male lying in bed in no distress RESPIRATORY SYSTEM: Unlabored breathing , decreased breath sounds at bases HEART: S1 S2 regular rate and rhythm , ABDOMEN: Soft , no tenderness EXTREMITIES: Left foot is currently dressed in OR dressing - Labs CBC & Chem 7: 06/30/21 11:26 06/30/21 11:26 Labs: Abnormal Lab Results - Last 24 Hours (Table) 06/30/21 06/30/21 07/01/21 Range/Units 17:03 20:13 12:14 POC Glucose (mg/dL) 133 H 234 H 71 L (75-99) mg/dL Microbiology - Last 24 Hours (Table) 06/30/21 11:26 Blood Culture - Preliminary Blood No Growth after 24 hours 06/30/21 11:26 Blood Culture - Preliminary Blood No Growth after 24 hours 06/30/21 11:26 Gram Stain - Preliminary Foot - Left Wound Culture - Preliminary Presumptive Staph aureus 06/30/21 19:11 Gram Stain - Preliminary Foot - Left Wound Culture - Preliminary Assessment and Plan (1) Diabetic foot ulcer Current Visit: Yes Status: Acute Code(s): E11.621 - TYPE 2 DIABETES MELLITUS WITH FOOT ULCER; L97.509 - NON-PRESSURE CHRONIC ULCER OTH PRT UNSP FOOT W UNSP SEVERITY SNOMED Code(s): 282067018 Plan: 1patient presented to hospital with a left diabetic foot infection in this patient did have a chronic nonhealing wound on the left foot plantar aspect also with left posterior heel which is a new wound failing outpatient oral biotic t herapy will need to cover for both gram-positive as well as gram-negative pathogen to be the likely bacteria responsible for this infection. 2patient is status post I&D of the left foot wounds and drainage of the abscess culture has been obtained 3patient to continue with vancomycin pharmacy to dose target trough of 15 while watching kidney function and vancomycin trough closely, along with cefepime while waiting for the cultures to finalize Time with Patient: Less than 30
[2021-07-02] MEDS: CEFEPIME 2 GM in SODIUM CHLORIDE 0.9% 100 ML IVPB SCH ×2 (03:25→07:37)
[2021-07-02] MEDS: traMADol 50 MG TAB PO PRN ×2 (03:28→16:25)
[2021-07-02] MEDS: SODIUM CHLORIDE 0.9% 1,000 ML IV SCH ×4 (05:19→23:15)
[2021-07-02 06:19] LABS: Basophils # (A) 0.1 k/uL (0-0.2); Basophils % (A) 1 %; Eosinophils # (A) 0.3 k/uL (0-0.7); Eosinophils % (A) 6 %; HCT 32.6 % (39.0-53.0); HGB 10.3 gm/dL (13.0-17.5); Hypochromasia Slight; Lymphocytes # (A) 0.9 k/uL (1.0-4.8); Lymphocytes % (A) 15 %; MCH 26.7 pg (25.0-35.0); MCHC 31.6 g/dL (31.0-37.0); MCV 84.5 fL (80.0-100.0); Mean Platelet Volume 7.9; Monocytes # (A) 0.4 k/uL (0-1.0); Monocytes % (A) 8 %; Neutrophils % (A) 69 %; Platelet Count 254 k/uL (150-450); RBC 3.86 m/uL (4.30-5.90); WBC 5.8 k/uL (3.8-10.6)
[2021-07-02 06:20] LABS: INR 1.4 (<1.2); Prothrombin Time 14.4 sec (9.0-12.0)
[2021-07-02 06:36] LABS: African American GFR (CKD) >90 (>60 ml/min/1.73 sqM); Anion Gap 5 mmol/L; Blood Urea Nitrogen 18 mg/dL (9-20); Carbon Dioxide 23 mmol/L (22-30); Chloride 108 mmol/L (98-107); Glucose 106 mg/dL (74-99); Non-African American GFR(CKD) >90 (>60 ml/min/1.73 sqM); Potassium 4.5 mmol/L (3.5-5.1); Sodium 136 mmol/L (137-145)
[2021-07-02 06:37] LABS: Calcium 8.2 mg/dL (8.4-10.2)
[2021-07-02 07:28] LABS: Glucose,Whole Blood 102 mg/dL (75-99)
[2021-07-02] MEDS: PANTOPRAZOLE 40 MG TABLET PO SCH ×2 (07:35→17:35)
[2021-07-02] MEDS: metFORMIN 500 MG TAB PO SCH ×2 (07:36→21:31)
[2021-07-02] MEDS: HYDROcodone/APAP 10-325MG 1 EACH TAB PO SCH ×2 (07:36→21:32)
[2021-07-02] MEDS: FERROUS SULFATE 325 MG TAB PO SCH ×2 (07:36→21:31)
[2021-07-02] MEDS: FAMOTIDINE 20 MG TAB PO SCH ×2 (07:36→21:32)
[2021-07-02] MEDS: LORATADINE 10 MG TAB PO SCH (07:36)
[2021-07-02] MEDS: PREGABALIN 100 MG CAP PO SCH ×2 (07:37→21:31)
[2021-07-02] MEDS: INSULIN ASPART (NovoLOG) 100 UNIT/ML VIAL SQ SCH ×3 (07:37→17:35)
[2021-07-02] MEDS: FLUTICASONE 220 MCG INHALER INHALATION SCH ×2 (08:03→19:56)
[2021-07-02] MEDS: NON FORMULARY DRUG (Lubiprostone [Amitiza] 24 MCG Capsule) PO SCH ×2 (10:33→21:25)
[2021-07-02 12:27] LABS: Glucose,Whole Blood 133 mg/dL (75-99)
[2021-07-02] MEDS: NON FORMULARY DRUG (Morphine Pain Pump 1 DOSE) MISCELLANE SCH (14:26)
[2021-07-02 17:08] LABS: Glucose,Whole Blood 141 mg/dL (75-99)
--- NOTE | 2021-07-02 17:45 | P.PN ---
Progress Note - Text Progress Note Date: 07/02/21 Hospital course: This is a pleasant 51-year-old male , follows with Dr. Waggoner. patient has a rig ht Charcot foot and also found to have what osteomyelitis in October 2020. Received antibiotics. Was readmitted in January. Subsequently in January he went down to [facility] and had surgery carried out with some bone was removed and couple of plates and screws were placed in the foot. Patient has a boot. Able to weight bear. 2 days ago he had a follow-up appointment stool everything is fine. He is also has a supportive shoe on the left foot. 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 Patient was admitted here in end of April for a week at possible cellulitis. Patient now has developed a wound to the bottom of the left foot. It opened up and mid foot on the plantar surface than the heel opened up. Says been draining. He was given antibiotics by his foot doctor Dr. Coleman. More pus started draining. He started having fevers at home. He was sent in for the same. Appetite is fair. Patient was seen earlier by Dr. Coleman is planning to an I&D tomorrow morning. Patient is started on antibiotics in the ER. Patient has some pain in the left foot. July 01: Patient taken to the OR per Dr. Coleman this morning. I&D of a deep plantar wound was carried out. Continue dressing in place. No fever. Cultures pending. On IV cefepime and vancomycin. I did discuss with Dr. Macedo from vascular to assess patient's vascular status. Concern about underlying osteomyelitis was discussed with Dr. Cifuentes from ID. oral intake fair. July 02: Up in a chair. Eating well. Pain in the left foot. No fever. On IV Ancef. Coumadin held by Dr. Coleman. Active Medications Acetaminophen (Acetaminophen Tab 325 Mg Tab) 650 mg PO Q6HR PRN PRN Reason: Mild Pain or Fever > 100.5 Hydrocodone Bitart/Acetaminophen (Hydrocodone/Apap 10-325mg 1 Each Tab) 1 each PO BID [facility] Last Admin: 07/02/21 07:36 Dose: 1 each Documented by: Atorvastatin Calcium (Atorvastatin 10 Mg Tab) 10 mg PO HS [facility] Last Admin: 07/01/21 21:36 Dose: 10 mg Documented by: Famotidine (Famotidine 20 Mg Tab) 20 mg PO BID [facility] Last Admin: 07/02/21 07:36 Dose: 20 mg Documented by: Ferrous Sulfate (Ferrous Sulfate 325 Mg Tab) 325 mg PO BID [facility] Last Admin: 07/02/21 07:36 Dose: 325 mg Documented by: Fluticasone Propionate (Fluticasone 220 Mcg Inhaler) 2 puff INHALATION RT-BID [facility] Last Admin: 07/02/21 08:03 Dose: 2 puff Documented by: Sodium Chloride (Saline 0.9%) 1,000 mls @ 130 mls/hr IV .Q7H42M [facility] Last Admin: 07/02/21 14:25 Dose: 130 mls/hr Documented by: Cefazolin Sodium 2 gm/ Sodium (Chloride) 50 mls @ 100 mls/hr IVPB Q8HR [facility]; Protocol Last Admin: 07/02/21 16:25 Dose: 100 mls/hr Documented by: Insulin Aspart (Insulin Aspart (Novolog) 100 Unit/Ml Vial) 0 unit SQ AC-TID [facility]; Protocol Last Admin: 07/02/21 17:35 Dose: 1 unit Documented by: Insulin Detemir (Insulin Detemir (Levemir) 100 Unit/Ml Syr) 40 unit SQ [facility] Last Admin: 07/01/21 21:39 Dose: 20 unit Documented by: Latanoprost (Latanoprost 0.005% Ophth Drops 2.5 Ml Btl) 1 drops BOTH EYES [facility] Last Admin: 07/01/21 21:38 Dose: 1 drops Documented by: Lisinopril (Lisinopril 2.5 Mg Tab) 2.5 mg PO DAILY [facility] Last Admin: 07/02/21 07:36 Dose: 2.5 mg Documented by: Loratadine (Loratadine 10 Mg Tab) 10 mg PO DAILY [facility] Last Admin: 07/02/21 07:36 Dose: 10 mg Documented by: Metformin HCl (Metformin 500 Mg Tab) 1,000 mg PO BID [facility] Last Admin: 07/02/21 07:36 Dose: 1,000 mg Documented by: Miscellaneous Information (Warfarin Per Pharmacy) 1 each MISCELLANE DIRECTED PRN PRN Reason: Per Protocol Morphine Sulfate (Morphine Sulfate 4 Mg/Ml Syringe) 4 mg IV Q4HR PRN PRN Reason: Severe Pain Naloxone HCl (Naloxone 0.4 Mg/Ml 1 Ml Vial) 0.2 mg IV Q2M PRN PRN Reason: Opioid Reversal Non-Formulary Medication (Lubiprostone [Amitiza]) 24 mcg PO BID [facility] Last Admin: 07/02/21 10:33 Dose: Not Given Documented by: Non-Formulary Medication (Morphine Pain Pump) 1 dose MISCELLANE CONTINUOUS [facility] Last Admin: 07/02/21 14:26 Dose: Not Given Documented by: Pantoprazole Sodium (Pantoprazole 40 Mg Tablet) 40 mg PO AC-BID [facility] Last Admin: 07/02/21 17:35 Dose: 40 mg Documented by: Pregabalin (Pregabalin 100 Mg Cap) 200 mg PO BID [facility] Last Admin: 07/02/21 07:37 Dose: 200 mg Documented by: Sumatriptan Succinate (Sumatriptan Succinate 50 Mg Tab) 50 mg PO DAILY PRN PRN Reason: Migraine Headache Tramadol HCl (Tramadol 50 Mg Tab) 50 mg PO Q6H PRN PRN Reason: Moderate Pain Last Admin: 07/02/21 16:25 Dose: 50 mg Documented by: Past medical history to include: Bilateral Charcot foot, with left foot osteomyelitis with surgery in January 2021 + Blum, diabetes, GERD, peripheral neuropathy, hypertension, hyperlipidemia, factor DLXXX mutation on and coordination, diabetic gastroparesis, decreased vision in the left eye, depression, history of 2 DVTs, sleep apnea uses BiPAP machine environmental ALLERGIES, fatty liver, herniated disc in the lower back, pain pump implant, narrowing of esophagus pending dilatation 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 No history of alcohol or smoking. Family history: Bladder cancer Physical examination: VITAL SIGNS: 97.5, 66, 18, 132/65, 94% room air GENERAL: Up in a recliner comfortable EYES: Pupils equal. Conjunctiva normal. HEENT: External appearance of nose and ears normal, oral cavity grossly normal. NECK: JVD unable to assess; masses not palpable. HEART: First and second heart sounds are normal; mild edema. LUNGS: Respiratory rate normal; distant breath sounds. ABDOMEN: Soft, nontender, liver spleen not palpable, no masses palpable. PSYCH: Alert and oriented x3; mood and affect normal. MUSCULOSKELETAL:No Clubbing/cyanosis;muscles-grossly intact. Patient got fungal changes in the nails of the foot. Dry skin. Charcot foot. Left foot wound on the plantar surface both in the midfoot and 2 with the heel. Pus drainage NEUROLOGICAL: [Cranial nerves grossly intact; no facial asymmetry, decreased sensation distally. Power grossly intact INVESTIGATIONS, reviewed in the clinical context: July 02: White count 5.8 hemoglobin 10.3 potassium 4.5 creatinine 0.85 . White count 7.2 hemoglobin 12.2 platelets of 68 potassium 4.1 BUN 27 creatinine 1.05 Left foot: Soft tissue swelling, osteopenia, chronic changes at the midfoot. Assessment and plan: -Left foot plantar abscess. Symptoms present for at least 2 weeks. Slow to respond I&D : by Dr. Coleman on July 01. Concern for underlying osteomyelitis. On IV cefepime and vancomycin. Follow up with ID -Bilateral foot Charcot foot from diabetes Patient has a boot for the right leg and also supportive shoe for the left leg -Morbid obesity, BMI 46.8 Weight loss measures and follow with PCP -Diabetes mellitus type 2, chronically on insulin uncontrolled with hyperglycemia Follow Accu-Cheks. Levemir 40 units daily at bedtime -GERD On Pepcid -Diabetic peripheral neuropathy On Lyrica -Hyperlipidemia Lipitor -Essential hypertension Follow blood pressure closely -Chronic pain syndrome. 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 Coleman. Continue IV Ancef. Other medications to continue. Discussed with patient.
[2021-07-02] MEDS ORDERED: WARFARIN 5 MG TAB PO ONE (18:00)
[2021-07-02 20:36] LABS: Glucose,Whole Blood 151 mg/dL (75-99)
[2021-07-02] MEDS: ATORVASTATIN 10 MG TAB PO SCH (21:31)
[2021-07-02] MEDS: INSULIN DETEMIR (LEVEMIR) 100 UNIT/ML SYR SQ SCH (21:33)
[2021-07-02] MEDS: LATANOPROST 0.005% OPHTH DROPS 2.5 ML BTL BOTH EYES SCH (21:34)
[2021-07-02] MEDS ORDERED: VANCOMYCIN TROUGH DUE 1 EACH MISC MISCELLANE ONE (23:00)
[2021-07-03] MEDS: traMADol 50 MG TAB PO PRN ×3 (02:31→17:02)
[2021-07-03 05:04] LABS: INR 1.7 (<1.2); Prothrombin Time 17.7 sec (9.0-12.0)
[2021-07-03 06:56] LABS: Glucose,Whole Blood 132 mg/dL (75-99)
[2021-07-03] MEDS: FAMOTIDINE 20 MG TAB PO SCH ×2 (07:12→20:22)
[2021-07-03] MEDS: PANTOPRAZOLE 40 MG TABLET PO SCH ×2 (07:12→16:56)
[2021-07-03] MEDS: FERROUS SULFATE 325 MG TAB PO SCH ×2 (07:12→20:22)
[2021-07-03] MEDS: HYDROcodone/APAP 10-325MG 1 EACH TAB PO SCH ×2 (07:12→20:25)
[2021-07-03] MEDS: LORATADINE 10 MG TAB PO SCH (07:13)
[2021-07-03] MEDS: metFORMIN 500 MG TAB PO SCH ×2 (07:13→20:22)
[2021-07-03] MEDS: PREGABALIN 100 MG CAP PO SCH ×2 (07:13→20:22)
[2021-07-03] MEDS: INSULIN ASPART (NovoLOG) 100 UNIT/ML VIAL SQ SCH ×3 (07:14→16:56)
[2021-07-03] MEDS: SODIUM CHLORIDE 0.9% 1,000 ML IV SCH ×3 (07:16→23:10)
[2021-07-03] MEDS: NON FORMULARY DRUG (Lubiprostone [Amitiza] 24 MCG Capsule) PO SCH ×2 (07:19→20:28)
--- NOTE | 2021-07-03 08:32 | P.PN ---
Subjective Progress Note Date: 07/03/21 Principal diagnosis: Infected diabetic foot ulcers left with cellulitis Patient was seen at bedside resting comfortably voices no complaints Objective - Vital Signs Vital signs: Vital Signs Temp 98.7 F 07/03/21 07:47 Pulse 77 07/03/21 07:47 Resp 12 07/03/21 07:47 BP 114/68 07/03/21 07:47 Pulse Ox 93 L 07/03/21 07:47 Intake & Output 07/02/21 07/03/21 07/03/21 18:59 06:59 18:59 Intake Total 1560 Output Total 1250 Balance 1560 -1250 Intake: Intake, IV Titration 1560 Amount Cefepime 2 gm In Sodium 100 Chloride 0.9% 100 ml @ 25 mls/hr IVPB Q8HR [facility] Rx# :[id number] Sodium Chloride 0.9% 1, 910 000 ml @ 130 mls/hr IV . Q7H42M [facility] Rx#:[id number] Vancomycin 2,000 mg In 500 Sodium Chloride 0.9% 500 ml 500 ml @ 167 mls/hr IVPB Q12H [facility] Rx#: [id number] ceFAZolin 2 gm In Sodium 50 Chloride 0.9% 50 ml @ 100 mls/hr IVPB Q8HR [facility] Rx# :[id number] Output: Urine 1250 Other: Voiding Method Urinal # Voids 1 # Bowel Movements 1 - Exam Patient vital signs are stable neurovascular status to the left lower extremity intact. She has decreased erythema decrease edema decreased pain of the left foot and lower leg medically appears to be responding to treatment the operative areas show response with decrease signs of infection(no necrotic tissue noted within the wound or the wound margins. The vascular supply to these areas is intact is no purulence no increased temperature no edema. - Labs CBC & Chem 7: 07/02/21 06:03 07/02/21 06:03 Labs: Abnormal Lab Results - Last 24 Hours (Table) 07/02/21 07/02/21 07/02/21 Range/Units 12:23 17:07 20:35 PT (9.0-12.0) sec INR (<1.2) POC Glucose (mg/dL) 133 H 141 H 151 H (75-99) mg/dL 07/03/21 07/03/21 Range/Units 03:50 06:55 PT 17.7 H (9.0-12.0) sec INR 1.7 H (<1.2) POC Glucose (mg/dL) 132 H (75-99) mg/dL Microbiology - Last 24 Hours (Table) 06/30/21 19:11 Gram Stain - Final Foot - Left Wound Culture - Final Staphylococcus aureus 06/30/21 11:26 Blood Culture - Preliminary Blood No Growth after 48 hours 06/30/21 11:26 Blood Culture - Preliminary Blood No Growth after 48 hours 06/30/21 11:26 Gram Stain - Final Foot - Left Wound Culture - Final Staphylococcus aureus 07/01/21 12:01 Gram Stain - Preliminary Foot - Left Tissue Culture - Preliminary Assessment and Plan Assessment: Infected diabetic foot ulcers left with Charcot joint disease left Plan: Exam today we removed the iodoform packing and flushed each wound copiously with 60 mL of sterile saline. Will also apply silver collagen to the wound and maintain a dry sterile dressing. Patient is to continue to be completely nonweightbearing. Patient can be followed up in the wound care center under Dr. Fuentes and we discussed this with Dr. Fuentes previously. Patient states that if he is completely nonweightbearing he will need assistance and request a short-term nursing facility. Patient will follow-up with me in the wound care center following the visit with Dr. Fuentes as I will be on vacation next week. From a podiatric surgical perspective patient is stable for discharge. Time with Patient: Greater than 30
[2021-07-03] MEDS: FLUTICASONE 220 MCG INHALER INHALATION SCH ×2 (09:15→20:00)
[2021-07-03] MEDS: NON FORMULARY DRUG (Morphine Pain Pump 1 DOSE) MISCELLANE SCH (09:37)
[2021-07-03] MEDS ORDERED: LIDOCAINE 1% INJ 10MG/ML (20 ML MDV) SQ ONE (09:38)
[2021-07-03 11:15] LABS: Glucose,Whole Blood 134 mg/dL (75-99)
--- NOTE | 2021-07-03 12:04 | IR ---
EXAMINATION TYPE: IR cvc insert >=5 years DATE OF EXAM: 07/03/2021 COMPARISON: NONE CLINICAL HISTORY: Foot infection Needs long-term intravenous access for antibiotics. PROCEDURE: Hand hygiene obtained with soap and water and alcohol-based hand rub. After informed consent, the skin overlying the left basilic vein was localized with ultrasound and no beth to be compressible and patent. An ultrasound image was obtained and submitted on the patient's c khoury. The overlying skin was prepped and draped and Lidocaine was used for local anesthesia. A skin estrellita was made with a scalpel. Access was gained to the vein under ultrasound guidance with a 21 gau ge needle and a 0.018 inch wire was advanced. Access site was dilated with Peel-Away sheath and cath eter tailored to the appropriate length and advanced such that the distal tip is at the cavoatrial ju nction. Spot image was obtained verifying placement. Catheter was fixed to the skin and a sterile d ressing was placed following hemostasis. Catheter was aspirated and flushed with saline. Patient wa s discharged in stable condition without complication.Maximal barrier technique is utilized. Ultraso und image is documented on the chart. Ultrasound used with sterile technique. Fluoro time and fluoroscopic images submitted to document procedure: 0.2 minutes fluoroscopy time, 34 intraoperative C-arm images IMPRESSION: STATUS POST ULTRASOUND AND FLUOROSCOPIC GUIDED PICC LINE PLACEMENT, READY FOR USE. THIS PROCEDURE WAS PERFORMED BY THE UNDERSIGNED.
--- NOTE | 2021-07-03 15:38 | P.PN ---
Progress Note - Text Progress Note Date: 07/03/21 Hospital course: This is a pleasant 51-year-old male , follows with Dr. Waggoner. patient has a rig ht Charcot foot and also found to have what osteomyelitis in October 2020. Received antibiotics. Was readmitted in January. Subsequently in January he went down to [facility] and had surgery carried out with some bone was removed and couple of plates and screws were placed in the foot. Patient has a boot. Able to weight bear. 2 days ago he had a follow-up appointment stool everything is fine. He is also has a supportive shoe on the left foot. 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 Patient was admitted here in end april for a week at possible cellulitis. Patient now has developed a wound to the bottom of the left foot. It opened up and mid foot on the plantar surface than the heel opened up. Says been draining. He was given antibiotics by his foot doctor Dr. Coleman. More pus started draining. He started having fevers at home. He was sent in for the same. Appetite is fair. Patient was seen earlier by Dr. Coleman is planning to an I&D tomorrow morning. Patient is started on antibiotics in the ER. Patient has some pain in the left foot. July 01: Patient taken to the OR per Dr. Coleman this morning. I&D of a deep plantar wound was carried out. Continue dressing in place. No fever. Cultures pending. On IV cefepime and vancomycin. I did discuss with Dr. Macedo from vascular to assess patient's vascular status. Concern about underlying osteomyelitis was discussed with Dr. Cifuentes from ID. oral intake fair. July 02: Up in a chair. Eating well. Pain in the left foot. No fever. On IV Ancef. Coumadin held by Dr. Coleman. July 03: Left foot pain is better. Seen by Dr. Coleman. Currently no further intervention. We'll resume Coumadin. Getting a PICC line for antibiotics. Looking for [facility] rehab. Left foot is nonweightbearing Active Medications Acetaminophen (Acetaminophen Tab 325 Mg Tab) 650 mg PO Q6HR PRN PRN Reason: Mild Pain or Fever > 100.5 Hydrocodone Bitart/Acetaminophen (Hydrocodone/Apap 10-325mg 1 Each Tab) 1 each PO BID [facility] Last Admin: 07/03/21 07:12 Dose: 1 each Documented by: Atorvastatin Calcium (Atorvastatin 10 Mg Tab) 10 mg PO [facility] Last Admin: 07/02/21 21:31 Dose: 10 mg Documented by: Famotidine (Famotidine 20 Mg Tab) 20 mg PO BID [facility] Last Admin: 07/03/21 07:12 Dose: 20 mg Documented by: Ferrous Sulfate (Ferrous Sulfate 325 Mg Tab) 325 mg PO BID [facility] Last Admin: 07/03/21 07:12 Dose: 325 mg Documented by: Fluticasone Propionate (Fluticasone 220 Mcg Inhaler) 2 puff INHALATION RT-BID [facility] Last Admin: 07/03/21 09:15 Dose: 2 puff Documented by: Sodium Chloride (Saline 0.9%) 1,000 mls @ 130 mls/hr IV .Q7H42M [facility] Last Admin: 07/03/21 07:16 Dose: 130 mls/hr Documented by: Cefazolin Sodium 2 gm/ Sodium (Chloride) 50 mls @ 100 mls/hr IVPB Q8HR [facility]; Protocol Last Admin: 07/03/21 07:13 Dose: 100 mls/hr Documented by: Insulin Aspart (Insulin Aspart (Novolog) 100 Unit/Ml Vial) 0 unit SQ AC-TID [facility]; Protocol Last Admin: 07/03/21 11:42 Dose: 1 unit Documented by: Insulin Detemir (Insulin Detemir (Levemir) 100 Unit/Ml Syr) 40 unit SQ [facility] Last Admin: 07/02/21 21:33 Dose: 35 unit Documented by: Latanoprost (Latanoprost 0.005% Ophth Drops 2.5 Ml Btl) 1 drops BOTH EYES [facility] Last Admin: 07/02/21 21:34 Dose: 1 drops Documented by: Lisinopril (Lisinopril 2.5 Mg Tab) 2.5 mg PO DAILY [facility] Last Admin: 07/03/21 07:13 Dose: 2.5 mg Documented by: Loratadine (Loratadine 10 Mg Tab) 10 mg PO DAILY [facility] Last Admin: 07/03/21 07:13 Dose: 10 mg Documented by: Metformin HCl (Metformin 500 Mg Tab) 1,000 mg PO BID [facility] Last Admin: 07/03/21 07:13 Dose: 1,000 mg Documented by: Miscellaneous Information (Warfarin Per Pharmacy) 1 each MISCELLANE DIRECTED PRN PRN Reason: Per Protocol Morphine Sulfate (Morphine Sulfate 4 Mg/Ml Syringe) 4 mg IV Q4HR PRN PRN Reason: Severe Pain Naloxone HCl (Naloxone 0.4 Mg/Ml 1 Ml Vial) 0.2 mg IV Q2M PRN PRN Reason: Opioid Reversal Non-Formulary Medication (Lubiprostone [Amitiza]) 24 mcg PO BID [facility] Last Admin: 07/03/21 07:19 Dose: Not Given Documented by: Non-Formulary Medication (Morphine Pain Pump) 1 dose MISCELLANE CONTINUOUS [facility] Last Admin: 07/03/21 09:37 Dose: Not Given Documented by: Pantoprazole Sodium (Pantoprazole 40 Mg Tablet) 40 mg PO AC-BID [facility] Last Admin: 07/03/21 07:12 Dose: 40 mg Documented by: Pregabalin (Pregabalin 100 Mg Cap) 200 mg PO BID [facility] Last Admin: 07/03/21 07:13 Dose: 200 mg Documented by: Sodium Chloride (Sodium Chloride 0.9% Flush 10 Ml Syringe) 10 ml IV Q4HR PRN PRN Reason: PICC Line Sodium Chloride (Sodium Chloride 0.9% Flush 10 Ml Syringe) 10 ml IV WEEKLY [facility] Sodium Chloride (Sodium Chloride 0.9% Flush 10 Ml Syringe) 20 ml IV Q4HR PRN PRN Reason: PICC Line Sumatriptan Succinate (Sumatriptan Succinate 50 Mg Tab) 50 mg PO DAILY PRN PRN Reason: Migraine Headache Tramadol HCl (Tramadol 50 Mg Tab) 50 mg PO Q6H PRN PRN Reason: Moderate Pain Last Admin: 07/03/21 08:42 Dose: 50 mg Documented by: Warfarin Sodium (Warfarin 10 Mg Tab) 10 mg PO ONCE@1800 ONE; Protocol Stop: 07/03/21 18:01 Past medical history to include: Bilateral Charcot foot, with left foot osteomyelitis with surgery in January 2021 + Lbum, diabetes, GERD, peripheral neuropathy, hypertension, hyperlipidemia, factor DLXXX mutation on and coordination, diabetic gastroparesis, decreased vision in the left eye, depression, history of 2 DVTs, sleep apnea uses BiPAP machine environmental ALLERGIES, fatty liver, herniated disc in the lower back, pain pump implant, narrowing of esophagus pending dilatation 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 No history of alcohol or smoking. Family history: Bladder cancer Physical examination: VITAL SIGNS: 98, 69, 18, 117/71, 91% on room air GENERAL: Sitting at the edge of the bed EYES: Pupils equal. Conjunctiva normal. HEENT: External appearance of nose and ears normal, oral cavity grossly normal. NECK: JVD unable to assess; masses not palpable. HEART: First and second heart sounds are normal; mild edema. LUNGS: Respiratory rate normal; distant breath sounds. ABDOMEN: Soft, nontender, liver spleen not palpable, no masses palpable. PSYCH: Alert and oriented x3; mood and affect normal. MUSCULOSKELETAL:No Clubbing/cyanosis;muscles-grossly intact. Patient got fungal changes in the nails of the foot. Dry skin. Charcot foot. Left foot and a wound dressing and Speedy wrap NEUROLOGICAL: [Cranial nerves grossly intact; no facial asymmetry, decreased sensation distally. Power grossly intact INVESTIGATIONS, reviewed in the clinical context: July 03: INR 1.7 Wound culture: Staph aureus July 02: White count 5.8 hemoglobin 10.3 potassium 4.5 creatinine 0.85 . White count 7.2 hemoglobin 12.2 platelets of 68 potassium 4.1 BUN 27 creatinine 1.05 Left foot: Soft tissue swelling, osteopenia, chronic changes at the midfoot. Assessment and plan: -Left foot plantar abscess. Symptoms present for at least 2 weeks. Growing staph aureus I&D : by Dr. Coleman on July 01. On IV cefepime and vancomycin. Follow up with ID -Bilateral foot Charcot foot from diabetes Patient has a boot for the right leg and also supportive shoe for the left leg -Morbid obesity, BMI 46.8 Weight loss measures and follow with PCP -Diabetes mellitus type 2, chronically on insulin uncontrolled with hyperglycemia Follow Accu-Cheks. Levemir 40 units daily at bedtime -GERD On Pepcid -Diabetic peripheral neuropathy On Lyrica -Hyperlipidemia Lipitor -Essential hypertension Follow blood pressure closely -Chronic pain syndrome. 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 On IV Ancef. Looking at placement to rehab.
[2021-07-03 16:02] LABS: Glucose,Whole Blood 154 mg/dL (75-99)
[2021-07-03] MEDS ORDERED: WARFARIN 10 MG TAB PO ONE (18:00)
[2021-07-03 20:08] LABS: Glucose,Whole Blood 159 mg/dL (75-99)
[2021-07-03] MEDS: INSULIN DETEMIR (LEVEMIR) 100 UNIT/ML SYR SQ SCH (20:21)
[2021-07-03] MEDS: ATORVASTATIN 10 MG TAB PO SCH (20:22)
[2021-07-03] MEDS: LATANOPROST 0.005% OPHTH DROPS 2.5 ML BTL BOTH EYES SCH (20:23)
[2021-07-03] MEDS ORDERED: LACTULOSE 20 GM/30 ML CUP PO ONE (20:53)
--- NOTE | 2021-07-03 23:43 | P.PN ---
Subjective Progress Note Date: 07/02/21 Principal diagnosis: Left diabetic foot infection Patient is a 51-year-old male with a past medical history significant for left Charcot foot and history of chronic nonhealing wound to the left foot area admitted to the hospital with infected left foot with a wound to the left foot plantar aspect as well as the left posterior heel area. The patient is status post surgical drainage of the left foot wounds 2 and drainage of the abscess completed on 07/01/2021 On today's evaluation that is 07/02/2021, the patient remains to be afebrile, the patient denies chest pain shortness of breath or cough, the patient denies nausea no vomiting no abdominal pain and denies any worsening pain to the left foot area Objective - Vital Signs Vital signs: Vital Signs Temp 98.0 F 07/02/21 04:25 Pulse 70 07/02/21 04:25 Resp 16 07/02/21 04:25 BP 118/42 07/02/21 04:25 Pulse Ox 95 07/02/21 04:25 Intake & Output 07/01/21 07/02/21 07/02/21 18:59 06:59 18:59 Intake Total 1321 1120 Output Total 1070 600 Balance 251 520 Intake: IV 801 Intake, IV Titration 520 1120 Amount Cefepime 2 gm In Sodium 100 Chloride 0.9% 100 ml @ 25 mls/hr IVPB Q8HR [facility] Rx# :[id number] Sodium Chloride 0.9% 1, 520 000 ml @ 130 mls/hr IV . Q7H42M [facility] Rx#:[id number] Vancomycin 2,000 mg In 520 500 Sodium Chloride 0.9% 500 ml 500 ml @ 167 mls/hr IVPB Q12H [facility] Rx#: [id number] Output: Urine 1020 600 Estimated Blood Loss 50 Other: Voiding Method Urinal # Voids 3 # Bowel Movements 1 - Exam GENERAL DESCRIPTION: Middle-age male lying in bed in no distress RESPIRATORY SYSTEM: Unlabored breathing , decreased breath sounds at bases HEART: S1 S2 regular rate and rhythm , ABDOMEN: Soft , no tenderness EXTREMITIES: Left foot is currently dressed no drainage on the dressing - Labs CBC & Chem 7: 07/02/21 06:03 07/02/21 06:03 Labs: Abnormal Lab Results - Last 24 Hours (Table) 03/12/1507/01/21 07/01/21 Range/Units 12:14 17:12 21:23 RBC (4.30-5.90) m/uL Hgb (13.0-17.5) gm/dL Hct (39.0-53.0) % Lymphocytes # (1.0-4.8) k/uL PT (9.0-12.0) sec INR (<1.2) Sodium (137-145) mmol/L Chloride (98-107) mmol/L Glucose (74-99) mg/dL POC Glucose (mg/dL) 71 L 106 H 136 H (75-99) mg/dL Calcium (8.4-10.2) mg/dL 07/02/21 07/02/21 07/02/21 Range/Units 06:03 06:03 06:03 RBC 3.86 L (4.30-5.90) m/uL Hgb 10.3 L (13.0-17.5) gm/dL Hct 32.6 L (39.0-53.0) % Lymphocytes # 0.9 L (1.0-4.8) k/uL PT 14.4 H (9.0-12.0) sec INR 1.4 H (<1.2) Sodium 136 L (137-145) mmol/L Chloride 108 H (98-107) mmol/L Glucose 106 H (74-99) mg/dL POC Glucose (mg/dL) (75-99) mg/dL Calcium 8.2 L (8.4-10.2) mg/dL 07/02/21 Range/Units 07:27 RBC (4.30-5.90) m/uL Hgb (13.0-17.5) gm/dL Hct (39.0-53.0) % Lymphocytes # (1.0-4.8) k/uL PT (9.0-12.0) sec INR (<1.2) Sodium (137-145) mmol/L Chloride (98-107) mmol/L Glucose (74-99) mg/dL POC Glucose (mg/dL) 102 H (75-99) mg/dL Calcium (8.4-10.2) mg/dL Microbiology - Last 24 Hours (Table) 06/30/21 11:26 Gram Stain - Final Foot - Left Wound Culture - Final Staphylococcus aureus 03/08/22 12:01 Gram Stain - Preliminary Foot - Left Tissue Culture - Preliminary 06/30/21 19:11 Gram Stain - Preliminary Foot - Left Wound Culture - Preliminary Presumptive Staph aureus 07/01/21 12:01 Anaerobic Culture - Preliminary Foot - Left 06/30/21 11:26 Blood Culture - Preliminary Blood No Growth after 24 hours 06/30/21 11:26 Blood Culture - Preliminary Blood No Growth after 24 hours Assessment and Plan (1) Diabetic foot ulcer Current Visit: Yes Status: Acute Code(s): E11.621 - TYPE 2 DIABETES MELLITUS WITH FOOT ULCER; L97.509 - NON-PRESSURE CHRONIC ULCER OTH PRT UNSP FOOT W UNSP SEVERITY SNOMED Code(s): 320781476 Plan: 1patient presented to hospital with a left diabetic foot infection in this patient did have a chronic nonhealing wound on the left foot plantar aspect also with left posterior heel which is a new wound failing outpatient oral biotic therapy will need to cover for both gram-positive as well as gram-negative pathogen to be the likely bacteria responsible for this infection. 2patient is status post I&D of the left foot wounds and drainage of the abscess culture has been obtained which has been finalized with MSSA 3patient antibiotics has been adjusted to cefazolin 2 g every 8 hours discontinue vancomycin and cefepime
--- NOTE | 2021-07-03 23:44 | P.PN ---
Subjective Progress Note Date: 07/03/21 Principal diagnosis: Left diabetic foot infection Patient is a 51-year-old male with a past medical history significant for left Charcot foot and history of chronic nonhealing wound to the left foot area admitted to the hospital with infected left foot with a wound to the left foot plantar aspect as well as the left posterior heel area. The patient is status post surgical drainage of the left foot wounds 2 and drainage of the abscess completed on 07/01/2021 On today's evaluation that is 07/03/2021, the patient denies any fever or any chills, denies having any chest pain shortness of breath or cough no abdominal pain or diarrhea and denies pain to the right foot Objective - Vital Signs Vital signs: Vital Signs Temp 98.0 F 07/03/21 13:00 Pulse 69 07/03/21 13:00 Resp 18 07/03/21 13:00 BP 117/71 07/03/21 13:00 Pulse Ox 91 L 07/03/21 13:00 Intake & Output 07/03/21 07/03/21 07/04/21 06:59 18:59 06:59 Output Total 1250 1575 Balance -1250 -1575 Output: Urine 1250 1575 Other: Voiding Method Urinal Urinal # Voids 1 1 # Bowel Movements 1 - Exam GENERAL DESCRIPTION: Middle-age male lying in bed in no distress RESPIRATORY SYSTEM: Unlabored breathing , decreased breath sounds at bases HEART: S1 S2 regular rate and rhythm , ABDOMEN: Soft , no tenderness EXTREMITIES: Left foot is currently dressed no drainage on the dressing - Labs CBC & Chem 7: 07/02/21 06:03 07/02/21 06:03 Labs: Abnormal Lab Results - Last 24 Hours (Table) 07/03/21 07/03/21 07/03/21 Range/Units 03:50 06:55 11:13 PT 17.7 H (9.0-12.0) sec INR 1.7 H (<1.2) POC Glucose (mg/dL) 132 H 134 H (75-99) mg/dL 07/03/21 07/03/21 Range/Units 16:01 20:06 PT (9.0-12.0) sec INR (<1.2) POC Glucose (mg/dL) 154 H 159 H (75-99) mg/dL Microbiology - Last 24 Hours (Table) 07/01/21 12:01 Anaerobic Culture - Preliminary Foot - Left Group D Enterococcus 06/30/21 11:26 Blood Culture - Preliminary Blood No Growth after 72 hours 06/30/21 11:26 Blood Culture - Preliminary Blood No Growth after 72 hours 07/01/21 12:01 Gram Stain - Final Foot - Left Tissue Culture - Final Staphylococcus aureus 06/30/21 19:11 Gram Stain - Final Foot - Left Wound Culture - Final Staphylococcus aureus Assessment and Plan (1) Diabetic foot ulcer Current Visit: Yes Status: Acute Code(s): E11.621 - TYPE 2 DIABETES MELLITUS WITH FOOT ULCER; L97.509 - NON-PRESSURE CHRONIC ULCER OTH PRT UNSP FOOT W UNSP SEVERITY SNOMED Code(s): 519071665 Plan: 1patient presented to hospital with a left diabetic foot infection in this patient did have a chronic nonhealing wound on the left foot plantar aspect also with left posterior heel which is a new wound failing outpatient oral biotic therapy will need to cover for both gram-positive as well as gram-negative pathogen to be the likely bacteria responsible for this infection. 2patient is status post I&D of the left foot wounds and drainage of the abscess culture has been obtained which has been finalized with MSSA 3patient is currently covered with cefazolin 2 g every 8 hours to continue for at least 4-6 weeks depending upon his clinical response in view of extensive infection Time with Patient: Less than 30
[2021-07-04 04:45] LABS: INR 1.7 (<1.2); Prothrombin Time 17.6 sec (9.0-12.0)
[2021-07-04 06:51] LABS: Glucose,Whole Blood 108 mg/dL (75-99)
[2021-07-04] MEDS: INSULIN ASPART (NovoLOG) 100 UNIT/ML VIAL SQ SCH ×3 (06:58→17:06)
[2021-07-04] MEDS: PANTOPRAZOLE 40 MG TABLET PO SCH ×2 (07:10→17:06)
[2021-07-04] MEDS: LORATADINE 10 MG TAB PO SCH (07:10)
[2021-07-04] MEDS: FERROUS SULFATE 325 MG TAB PO SCH ×2 (07:10→20:06)
[2021-07-04] MEDS: metFORMIN 500 MG TAB PO SCH ×2 (07:10→20:06)
[2021-07-04] MEDS: FAMOTIDINE 20 MG TAB PO SCH ×2 (07:10→20:06)
[2021-07-04] MEDS: HYDROcodone/APAP 10-325MG 1 EACH TAB PO SCH ×2 (07:10→20:07)
[2021-07-04] MEDS: PREGABALIN 100 MG CAP PO SCH ×2 (07:10→20:06)
[2021-07-04] MEDS: NON FORMULARY DRUG (Lubiprostone [Amitiza] 24 MCG Capsule) PO SCH ×2 (07:17→20:07)
[2021-07-04] MEDS: NON FORMULARY DRUG (Morphine Pain Pump 1 DOSE) MISCELLANE SCH (08:02)
[2021-07-04] MEDS: SODIUM CHLORIDE 0.9% 1,000 ML IV SCH ×3 (08:21→23:22)
[2021-07-04] MEDS: FLUTICASONE 220 MCG INHALER INHALATION SCH ×2 (09:35→20:17)
--- NOTE | 2021-07-04 10:02 | P.PN ---
Subjective Progress Note Date: 07/04/21 Principal diagnosis: Diabetic foot infection with ulcerations left Patient is status post incision and drainage performed 07/01/2021. Since current dressing is intact and patient states that overall he feels improved with less pain of the left foot and ankle. Objective - Vital Signs Vital signs: Vital Signs Temp 97.8 F 07/04/21 07:28 Pulse 65 07/04/21 07:28 Resp 14 07/04/21 07:28 BP 133/85 07/04/21 07:28 Pulse Ox 95 07/04/21 07:28 Intake & Output 07/03/21 07/04/21 07/04/21 18:59 06:59 18:59 Output Total 1575 1300 675 Balance -1575 -1300 -675 Output: Urine 1575 1300 675 Other: Voiding Method Urinal # Voids 1 # Bowel Movements 1 - Exam Patient is currently on IV Ancef as the tissue culture showed methylene sensitive staph aureus. The wound is stable there is minimal necrotic tissue in the wound. Decreasing erythema decrease in edema decreasing pain with no purulence or increased temperature of left foot ankle and lower leg. Patient's vital signs are stable - Labs CBC & Chem 7: 07/02/21 06:03 07/02/21 06:03 Labs: Abnormal Lab Results - Last 24 Hours (Table) 07/03/21 07/03/21 07/03/21 Range/Units 11:13 16:01 20:06 PT (9.0-12.0) sec INR (<1.2) POC Glucose (mg/dL) 134 H 154 H 159 H (75-99) mg/dL 07/04/21 07/04/21 Range/Units 04:11 06:50 PT 17.6 H (9.0-12.0) sec INR 1.7 H (<1.2) POC Glucose (mg/dL) 108 H (75-99) mg/dL Microbiology - Last 24 Hours (Table) 07/01/21 12:01 Anaerobic Culture - Preliminary Foot - Left Group D Enterococcus 06/30/21 11:26 Blood Culture - Preliminary Blood No Growth after 72 hours 06/30/21 11:26 Blood Culture - Preliminary Blood No Growth after 72 hours 07/01/21 12:01 Gram Stain - Final Foot - Left Tissue Culture - Final Staphylococcus aureus Assessment and Plan Assessment: Infected diabetic foot ulcers left with Charcot joint disease left Plan: Exam today we debrided the wounds mechanically with a sterile 4 x 4 to remove the superficial slough present within the wounds margins and centrally. Which we flushed each wound copiously with 60 mL of sterile saline solution will continue with the silver collagen and dressing. He is to continue to be nonweightbearing on the left lower extremity. He is to follow-up in the wound care center status post discharge from hospital care. We discussed with patient findings today and medical plan and answered all patient's questions to best of her ability. Time with Patient: Greater than 30
[2021-07-04] MEDS: traMADol 50 MG TAB PO PRN (10:06)
[2021-07-04 11:07] LABS: Glucose,Whole Blood 130 mg/dL (75-99)
--- NOTE | 2021-07-04 16:17 | P.PN ---
Progress Note - Text Progress Note Date: 07/04/21 Hospital course: This is a pleasant 51-year-old male , follows with Dr. Waggoner. patient has a rig ht Charcot foot and also found to have what osteomyelitis in October 2020. Received antibiotics. Was readmitted in January. Subsequently in January he went down to [facility] and had surgery carried out with some bone was removed and couple of plates and screws were placed in the foot. Patient has a boot. Able to weight bear. 2 days ago he had a follow-up appointment stool everything is fine. He is also has a supportive shoe on the left foot. 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 Patient was admitted here in end april for a week at possible cellulitis. Patient now has developed a wound to the bottom of the left foot. It opened up and mid foot on the plantar surface than the heel opened up. Says been draining. He was given antibiotics by his foot doctor Dr. Coleman. More pus started draining. He started having fevers at home. He was sent in for the same. Appetite is fair. Patient was seen earlier by Dr. Coleman is planning to an I&D tomorrow morning. Patient is started on antibiotics in the ER. Patient has some pain in the left foot. July 01: Patient taken to the OR per Dr. Coleman this morning. I&D of a deep plantar wound was carried out. Continue dressing in place. No fever. Cultures pending. On IV cefepime and vancomycin. I did discuss with Dr. Macedo from vascular to assess patient's vascular status. Concern about underlying osteomyelitis was discussed with Dr. Cifuentes from ID. oral intake fair. July 02: Up in a chair. Eating well. Pain in the left foot. No fever. On IV Ancef. Coumadin held by Dr. Coleman. July 03: Left foot pain is better. Seen by Dr. Coleman. Currently no further intervention. We'll resume Coumadin. Getting a PICC line for antibiotics. Looking for [facility] rehab. Left foot is nonweightbearing July 04: Oral intake fair. IV Ancef. Spoke to the case monitor. Authorization has not come through. Patient left the state through Wednesday to go to rehab. Active Medications Acetaminophen (Acetaminophen Tab 325 Mg Tab) 650 mg PO Q6HR PRN PRN Reason: Mild Pain or Fever > 100.5 Hydrocodone Bitart/Acetaminophen (Hydrocodone/Apap 10-325mg 1 Each Tab) 1 each PO BID [facility] Last Admin: 07/04/21 07:10 Dose: 1 each Documented by: Atorvastatin Calcium (Atorvastatin 10 Mg Tab) 10 mg PO [facility] Last Admin: 07/03/21 20:22 Dose: 10 mg Documented by: Famotidine (Famotidine 20 Mg Tab) 20 mg PO BID [facility] Last Admin: 07/04/21 07:10 Dose: 20 mg Documented by: Ferrous Sulfate (Ferrous Sulfate 325 Mg Tab) 325 mg PO BID [facility] Last Admin: 07/04/21 07:10 Dose: 325 mg Documented by: Fluticasone Propionate (Fluticasone 220 Mcg Inhaler) 2 puff INHALATION RT-BID [facility] Last Admin: 07/04/21 09:35 Dose: 2 puff Documented by: Sodium Chloride (Saline 0.9%) 1,000 mls @ 130 mls/hr IV .Q7H42M [facility] Last Admin: 07/04/21 12:11 Dose: Not Given Documented by: Cefazolin Sodium 2 gm/ Sodium (Chloride) 50 mls @ 100 mls/hr IVPB Q8HR [facility]; Protocol Last Admin: 07/04/21 07:10 Dose: 100 mls/hr Documented by: Insulin Aspart (Insulin Aspart (Novolog) 100 Unit/Ml Vial) 0 unit SQ AC-TID [facility]; Protocol Last Admin: 07/04/21 11:14 Dose: Not Given Documented by: Insulin Detemir (Insulin Detemir (Levemir) 100 Unit/Ml Syr) 40 unit SQ [facility] Last Admin: 07/03/21 20:21 Dose: 40 unit Documented by: Latanoprost (Latanoprost 0.005% Ophth Drops 2.5 Ml Btl) 1 drops BOTH EYES [facility] Last Admin: 07/03/21 20:23 Dose: 1 drops Documented by: Lisinopril (Lisinopril 2.5 Mg Tab) 2.5 mg PO DAILY [facility] Last Admin: 07/04/21 07:10 Dose: 2.5 mg Documented by: Loratadine (Loratadine 10 Mg Tab) 10 mg PO DAILY [facility] Last Admin: 07/04/21 07:10 Dose: 10 mg Documented by: Metformin HCl (Metformin 500 Mg Tab) 1,000 mg PO BID [facility] Last Admin: 07/04/21 07:10 Dose: 1,000 mg Documented by: Miscellaneous Information (Warfarin Per Pharmacy) 1 each MISCELLANE DIRECTED PRN PRN Reason: Per Protocol Morphine Sulfate (Morphine Sulfate 4 Mg/Ml Syringe) 4 mg IV Q4HR PRN PRN Reason: Severe Pain Naloxone HCl (Naloxone 0.4 Mg/Ml 1 Ml Vial) 0.2 mg IV Q2M PRN PRN Reason: Opioid Reversal Non-Formulary Medication (Lubiprostone [Amitiza]) 24 mcg PO BID [facility] Last Admin: 07/04/21 07:17 Dose: Not Given Documented by: Non-Formulary Medication (Morphine Pain Pump) 1 dose MISCELLANE CONTINUOUS [facility] Last Admin: 07/04/21 08:02 Dose: Not Given Documented by: Pantoprazole Sodium (Pantoprazole 40 Mg Tablet) 40 mg PO AC-BID [facility] Last Admin: 07/04/21 07:10 Dose: 40 mg Documented by: Pregabalin (Pregabalin 100 Mg Cap) 200 mg PO BID [facility] Last Admin: 07/04/21 07:10 Dose: 200 mg Documented by: Sodium Chloride (Sodium Chloride 0.9% Flush 10 Ml Syringe) 10 ml IV Q4HR PRN PRN Reason: PICC Line Sodium Chloride (Sodium Chloride 0.9% Flush 10 Ml Syringe) 10 ml IV WEEKLY [facility] Sodium Chloride (Sodium Chloride 0.9% Flush 10 Ml Syringe) 20 ml IV Q4HR PRN PRN Reason: PICC Line Sumatriptan Succinate (Sumatriptan Succinate 50 Mg Tab) 50 mg PO DAILY PRN PRN Reason: Migraine Headache Tramadol HCl (Tramadol 50 Mg Tab) 50 mg PO Q6H PRN PRN Reason: Moderate Pain Last Admin: 07/04/21 10:06 Dose: 50 mg Documented by: Warfarin Sodium (Warfarin 10 Mg Tab) 10 mg PO ONCE@1800 ONE Stop: 07/04/21 18:01 Past medical history to include: Bilateral Charcot foot, with left foot osteomyelitis with surgery in January 2021 + Blum, diabetes, GERD, peripheral neuropathy, hypertension, hyperlipidemia, factor DLXXX mutation on and coordination, diabetic gastroparesis, decreased vision in the left eye, depression, history of 2 DVTs, sleep apnea uses BiPAP machine environmental ALLERGIES, fatty liver, herniated d isc in the lower back, pain pump implant, narrowing of esophagus pending dilatation 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 No history of alcohol or smoking. Family history: Bladder cancer Physical examination: VITAL SIGNS: 97.6, 67, 16, 142/82, 97% room air GENERAL: Sitting at the edge of the bed EYES: Pupils equal. Conjunctiva normal. HEENT: External appearance of nose and ears normal, oral cavity grossly normal. NECK: JVD unable to assess; masses not palpable. HEART: First and second heart sounds are normal; mild edema. LUNGS: Respiratory rate normal; distant breath sounds. ABDOMEN: Soft, nontender, liver spleen not palpable, no masses palpable. PSYCH: Alert and oriented x3; mood and affect normal. MUSCULOSKELETAL:No Clubbing/cyanosis;muscles-grossly intact. Patient got fungal changes in the nails of the foot. Dry skin. Charcot foot. Left foot and a wound dressing and Speedy wrap NEUROLOGICAL: [Cranial nerves grossly intact; no facial asymmetry, decreased sensation distally. Power grossly intact INVESTIGATIONS, reviewed in the clinical context: July 03: INR 1.7 Wound culture: Staph aureus July 02: White count 5.8 hemoglobin 10.3 potassium 4.5 creatinine 0.85 . White count 7.2 hemoglobin 12.2 platelets of 68 potassium 4.1 BUN 27 creatinine 1.05 Left foot: Soft tissue swelling, osteopenia, chronic changes at the midfoot. Assessment and plan: -Left foot plantar abscess. Symptoms present for at least 2 weeks. Growing staph aureus and VRE I&D : by Dr. Coleman on July 01. On IV Ancef. Follow up with ID -Bilateral foot Charcot foot from diabetes Patient has a boot for the right leg and also supportive shoe for the left leg -Morbid obesity, BMI 46.8 Weight loss measures and follow with PCP -Diabetes mellitus type 2, chronically on insulin uncontrolled with hyperglycemia Follow Accu-Cheks. Levemir 40 units daily at bedtime -GERD On Pepcid -Diabetic peripheral neuropathy On Lyrica -Hyperlipidemia Lipitor -Essential hypertension Follow blood pressure closely -Chronic pain syndrome. 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 Other medications to continue. Discussed with patient. Discharged to rehab and not AT least until Wednesday.
[2021-07-04 16:47] LABS: Glucose,Whole Blood 179 mg/dL (75-99)
[2021-07-04] MEDS ORDERED: WARFARIN 10 MG TAB PO ONE (18:00)
[2021-07-04] MEDS: ATORVASTATIN 10 MG TAB PO SCH (20:05)
[2021-07-04] MEDS: INSULIN DETEMIR (LEVEMIR) 100 UNIT/ML SYR SQ SCH (20:06)
[2021-07-04] MEDS: LATANOPROST 0.005% OPHTH DROPS 2.5 ML BTL BOTH EYES SCH (20:07)
[2021-07-04 21:09] LABS: Glucose,Whole Blood 154 mg/dL (75-99)
--- NOTE | 2021-07-04 22:45 | P.PN ---
Subjective Progress Note Date: 07/04/21 Principal diagnosis: Left diabetic foot infection Patient is a 51-year-old male with a past medical history significant for left Charcot foot and history of chronic nonhealing wound to the left foot area admitted to the hospital with infected left foot with a wound to the left foot plantar aspect as well as the left posterior heel area. The patient is status post surgical drainage of the left foot wounds 2 and drainage of the abscess completed on 07/01/2021 On today's evaluation that is 07/04/2021, the patient remains to be afebrile, the patient denies having any chest pain shortness of breath or cough no abdominal pain or diarrhea and denies pain to the right foot Objective - Vital Signs Vital signs: Vital Signs Temp 97.8 F 07/04/21 07:28 Pulse 65 07/04/21 07:28 Resp 14 07/04/21 07:28 BP 133/85 07/04/21 07:28 Pulse Ox 95 07/04/21 07:28 Intake & Output 07/03/21 07/04/21 07/04/21 18:59 06:59 18:59 Output Total 1575 1300 1250 Balance -1575 -1300 -1250 Output: Urine 1575 1300 1250 Other: Voiding Method Urinal # Voids 1 # Bowel Movements 1 - Exam GENERAL DESCRIPTION: Middle-age male lying in bed in no distress RESPIRATORY SYSTEM: Unlabored breathing , decreased breath sounds at bases HEART: S1 S2 regular rate and rhythm , ABDOMEN: Soft , no tenderness EXTREMITIES: Left foot is currently dressed no drainage on the dressing - Labs CBC & Chem 7: 07/02/21 06:03 07/02/21 06:03 Labs: Abnormal Lab Results - Last 24 Hours (Table) 07/03/21 07/03/21 07/04/21 Range/Units 16:01 20:06 04:11 PT 17.6 H (9.0-12.0) sec INR 1.7 H (<1.2) POC Glucose (mg/dL) 154 H 159 H (75-99) mg/dL C-Reactive Protein (0.00-0.80) mg/dL 07/04/21 07/04/21 07/04/21 Range/Units 04:11 06:50 11:05 PT (9.0-12.0) sec INR (<1.2) POC Glucose (mg/dL) 108 H 130 H (75-99) mg/dL C-Reactive Protein 1.90 H (0.00-0.80) mg/dL Microbiology - Last 24 Hours (Table) 07/01/21 12:01 Anaerobic Culture - Preliminary Foot - Left Group D Enterococcus 06/30/21 11:26 Blood Culture - Preliminary Blood No Growth after 72 hours 06/30/21 11:26 Blood Culture - Preliminary Blood No Growth after 72 hours 07/01/21 12:01 Gram Stain - Final Foot - Left Tissue Culture - Final Staphylococcus aureus Assessment and Plan (1) Diabetic foot ulcer Current Visit: Yes Status: Acute Code(s): E11.621 - TYPE 2 DIABETES MELLITUS WITH FOOT ULCER; L97.509 - NON-PRESSURE CHRONIC ULCER OTH PRT UNSP FOOT W UNSP SEVERITY SNOMED Code(s): 963531151 Plan: 1patient presented to hospital with a left diabetic foot infection in this patient did have a chronic nonhealing wound on the left foot plantar aspect also with left posterior heel which is a new wound failing outpatient oral biotic therapy will need to cover for both gram-positive as well as gram-negative pathogen to be the likely bacteria responsible for this infection. 2patient is status post I&D of the left foot wounds and drainage of the abscess culture has been obtained which has been finalized with MSSA and also growing VRE that is penicillin sensitive 3patient antibiotics will be switched over to Unasyn 3 g every 6 hours Time with Patient: Less than 30
[2021-07-04] MEDS: AMPICILLIN-SULBACTAM 3 GM in SODIUM CHLORIDE 0.9% 100 ML IVPB SCH (23:20)
[2021-07-05] MEDS: AMPICILLIN-SULBACTAM 3 GM in SODIUM CHLORIDE 0.9% 100 ML IVPB SCH ×4 (04:25→22:12)
[2021-07-05 05:27] LABS: INR 1.9 (<1.2); Prothrombin Time 19.4 sec (9.0-12.0)
[2021-07-05 06:49] LABS: Glucose,Whole Blood 138 mg/dL (75-99)
[2021-07-05] MEDS: NON FORMULARY DRUG (Lubiprostone [Amitiza] 24 MCG Capsule) PO SCH ×2 (07:21→21:01)
[2021-07-05] MEDS: SODIUM CHLORIDE 0.9% 1,000 ML IV SCH ×2 (07:59→13:46)
[2021-07-05] MEDS: metFORMIN 500 MG TAB PO SCH ×2 (08:00→21:01)
[2021-07-05] MEDS: FERROUS SULFATE 325 MG TAB PO SCH ×2 (08:00→20:59)
[2021-07-05] MEDS: LORATADINE 10 MG TAB PO SCH (08:00)
[2021-07-05] MEDS: PANTOPRAZOLE 40 MG TABLET PO SCH ×2 (08:00→17:28)
[2021-07-05] MEDS: PREGABALIN 100 MG CAP PO SCH ×2 (08:00→20:58)
[2021-07-05] MEDS: FAMOTIDINE 20 MG TAB PO SCH ×2 (08:00→20:59)
[2021-07-05] MEDS: INSULIN ASPART (NovoLOG) 100 UNIT/ML VIAL SQ SCH ×3 (08:00→17:25)
[2021-07-05] MEDS: HYDROcodone/APAP 10-325MG 1 EACH TAB PO SCH ×2 (08:01→20:59)
[2021-07-05] MEDS: FLUTICASONE 220 MCG INHALER INHALATION SCH ×2 (08:10→21:33)
[2021-07-05 11:51] LABS: Glucose,Whole Blood 322 mg/dL (75-99)
[2021-07-05] MEDS: NON FORMULARY DRUG (Morphine Pain Pump 1 DOSE) MISCELLANE SCH (14:50)
[2021-07-05 17:26] LABS: Glucose,Whole Blood 123 mg/dL (75-99)
[2021-07-05] MEDS: traMADol 50 MG TAB PO PRN (17:31)
[2021-07-05] MEDS ORDERED: WARFARIN 10 MG TAB PO ONE (18:00)
--- NOTE | 2021-07-05 19:42 | P.PN ---
Subjective Hospital course: This is a pleasant 51-year-old male , follows with Dr. Waggoner. patient has a right Charcot foot and also found to have what osteomyelitis in October 2020. Received antibiotics. Was readmitted in January. Subsequently in January he w ent down to [facility] and had surgery carried out with some bone was removed and couple of plates and screws were placed in the foot. Patient has a boot. Able to weight bear. 2 days ago he had a follow-up appointment stool everything is fine. He is also has a supportive shoe on the left foot. 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 Patient was admitted here in end of April for a week at possible cellulitis. Patient now has developed a wound to the bottom of the left foot. It opened up and mid foot on the plantar surface than the heel opened up. Says been draining. He was given antibiotics by his foot doctor Dr. Coleman. More pus started draining. He started having fevers at home. He was sent in for the same. Appetite is fair. Patient was seen earlier by Dr. Coleman is planning to an I&D tomorrow morning. Patient is started on antibiotics in the ER. Patient has some pain in the left foot. July 01: Patient taken to the OR per Dr. Coleman this morning. I&D of a deep plantar wound was carried out. Continue dressing in place. No fever. Cultures pending. On IV cefepime and vancomycin. I did discuss with Dr. Macedo from vascular to assess patient's vascular status. Concern about underlying osteomyelitis was discussed with Dr. Cifuentes from ID. oral intake fair. July 02: Up in a chair. Eating well. Pain in the left foot. No fever. On IV Ancef. Coumadin held by Dr. Coleman. July 03: Left foot pain is better. Seen by Dr. Coleman. Currently no further intervention. We'll resume Coumadin. Getting a PICC line for antibiotics. Looking for [facility] rehab. Left foot is nonweightbearing July 04: Oral intake fair. IV Ancef. Spoke to the case management specialist. Authorization has not come through. Patient left the state through Wednesday to go to rehab. 07/05/2021 Patient looks comfortable with no new complaints Hemodynamically stable. INR 1.9 and remains on Coumadin Also he is on Unasyn for his peptic foot ulcer secondary to staff MSSA and an aerobic VRE Pending insurance authorization [facility] Objective - Vital Signs Vital signs: Vital Signs Temp 98.0 F 07/05/21 07:48 Pulse 63 07/05/21 07:48 Resp 18 07/05/21 07:48 BP 124/72 07/05/21 07:48 Pulse Ox 94 L 07/05/21 08:11 Intake & Output 07/04/21 07/05/21 07/05/21 18:59 06:59 18:59 Output Total 1250 Balance -1250 Output: Urine 1250 Other: Voiding Method Urinal # Voids 2 # Bowel Movements 1 - Exam GENERAL: The patient is alert and oriented x3, not in any acute distress. Well developed, well nourished. HEENT: Pupils are round and equally reacting to light. EOMI. No scleral icterus. No conjunctival pallor. Normocephalic, atraumatic. No pharyngeal erythema. No thyromegaly. CARDIOVASCULAR: S1 and S2 present. No murmurs, rubs, or gallops. PULMONARY: Chest is clear to auscultation, no wheezing or crackles. ABDOMEN: Soft, nontender, nondistended, normoactive bowel sounds. No palpable organomegaly. MUSCULOSKELETAL: No joint swelling or deformity. -EXTREMITIES: No cyanosis, clubbing, or pedal edema. Left foot infection with a dressing and placed NEUROLOGICAL: Gross neurological examination did not reveal any focal deficits. SKIN: No rashes. no petechiae. - Labs CBC & Chem 7: 07/02/21 06:03 07/02/21 06:03 Labs: Abnormal Lab Results - Last 24 Hours (Table) 07/04/21 07/04/21 07/04/21 Range/Units 04:11 16:45 21:07 ESR 52 H (0-20) mm/Hr PT (9.0-12.0) sec INR (<1.2) POC Glucose (mg/dL) 179 H 154 H (75-99) mg/dL 07/05/21 07/05/21 07/05/21 Range/Units 04:42 06:48 11:50 ESR (0-20) mm/Hr PT 19.4 H (9.0-12.0) sec INR 1.9 H (<1.2) POC Glucose (mg/dL) 138 H 322 H (75-99) mg/dL Microbiology - Last 24 Hours (Table) 07/01/21 12:01 Anaerobic Culture - Final Foot - Left Enterococcus faecalis VRE 06/30/21 11:26 Blood Culture - Preliminary Blood No Growth after 96 hours 06/30/21 11:26 Blood Culture - Preliminary Blood No Growth after 96 hours Assessment and Plan Assessment: -Left foot plantar abscess. Symptoms present for at least 2 weeks. Growing staph aureus MSSA and VRE I&D : by Dr. Coleman on July 01. On IV Unasyn. Pending placement -Bilateral foot Charcot foot from diabetes Patient has a boot for the right leg and also supportive shoe for the left leg -Morbid obesity, BMI 46.8 Weight loss measures and follow with PCP -Diabetes mellitus type 2, chronically on insulin uncontrolled with hyperglycemia Follow Accu-Cheks. Levemir 40 units daily at bedtime -GERD On Pepcid -Diabetic peripheral neuropathy On Lyrica -Hyperlipidemia Lipitor -Essential hypertension Follow blood pressure closely -Chronic pain syndrome. 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
[2021-07-05 20:47] LABS: Glucose,Whole Blood 136 mg/dL (75-99)
[2021-07-05] MEDS: INSULIN DETEMIR (LEVEMIR) 100 UNIT/ML SYR SQ SCH (20:59)
[2021-07-05] MEDS: ATORVASTATIN 10 MG TAB PO SCH (21:00)
[2021-07-05] MEDS: LATANOPROST 0.005% OPHTH DROPS 2.5 ML BTL BOTH EYES SCH (21:00)
--- NOTE | 2021-07-05 22:05 | P.PN ---
Subjective Progress Note Date: 07/05/21 Principal diagnosis: Left diabetic foot infection Patient is a 51-year-old male with a past medical history significant for left Charcot foot and history of chronic nonhealing wound to the left foot area admitted to the hospital with infected left foot with a wound to the left foot plantar aspect as well as the left posterior heel area. The patient is status post surgical drainage of the left foot wounds 2 and drainage of the abscess completed on 07/01/2021 On today's evaluation that is 07/05/2021, the patient denies fever or any chills, the patient denies having any chest pain shortness of breath or cough, the patient denies abdominal pain or diarrhea and denies pain to the right foot Objective - Vital Signs Vital signs: Vital Signs Temp 98.8 F 07/05/21 13:00 Pulse 66 07/05/21 13:00 Resp 18 07/05/21 13:00 BP 124/74 07/05/21 13:00 Pulse Ox 96 07/05/21 13:00 Intake & Output 07/04/21 07/05/21 07/05/21 18:59 06:59 18:59 Output Total 1250 Balance -1250 Output: Urine 1250 Other: Voiding Method Urinal # Voids 2 # Bowel Movements 1 - Exam GENERAL DESCRIPTION: Middle-age male lying in bed in no distress RESPIRATORY SYSTEM: Unlabored breathing , decreased breath sounds at bases HEART: S1 S2 regular rate and rhythm , ABDOMEN: Soft , no tenderness EXTREMITIES: Left foot is currently dressed no drainage on the dressing - Labs CBC & Chem 7: 07/02/21 06:03 07/02/21 06:03 Labs: Abnormal Lab Results - Last 24 Hours (Table) 07/04/21 07/04/21 07/04/21 Range/Units 04:11 16:45 21:07 ESR 52 H (0-20) mm/Hr PT (9.0-12.0) sec INR (<1.2) POC Glucose (mg/dL) 179 H 154 H (75-99) mg/dL 07/05/21 07/05/21 07/05/21 Range/Units 04:42 06:48 11:50 ESR (0-20) mm/Hr PT 19.4 H (9.0-12.0) sec INR 1.9 H (<1.2) POC Glucose (mg/dL) 138 H 322 H (75-99) mg/dL Microbiology - Last 24 Hours (Table) 06/30/21 11:26 Blood Culture - Preliminary Blood No Growth after 120 hours 06/30/21 11:26 Blood Culture - Preliminary Blood No Growth after 120 hours 07/01/21 12:01 Anaerobic Culture - Final Foot - Left Enterococcus faecalis VRE Assessment and Plan (1) Diabetic foot ulcer Current Visit: Yes Status: Acute Code(s): E11.621 - TYPE 2 DIABETES MELLITUS WITH FOOT ULCER; L97.509 - NON-PRESSURE CHRONIC ULCER OTH PRT UNSP FOOT W UNSP SEVERITY SNOMED Code(s): 676767722 Plan: 1patient presented to hospital with a left diabetic foot infection in this patient did have a chronic nonhealing wound on the left foot plantar aspect also with left posterior heel which is a new wound failing outpatient oral biotic therapy will need to cover for both gram-positive as well as gram-negative pathogen to be the likely bacteria responsible for this infection. 2patient is status post I&D of the left foot wounds and drainage of the abscess culture has been obtained which has been finalized with MSSA and also growing VRE that is penicillin sensitive 3patient to continue with Unasyn 3 g every 6 hours, currently waiting for placement Time with Patient: Less than 30
[2021-07-06] MEDS: AMPICILLIN-SULBACTAM 3 GM in SODIUM CHLORIDE 0.9% 100 ML IVPB SCH ×4 (04:53→23:08)
[2021-07-06 05:51] LABS: INR 2.1 (<1.2); Prothrombin Time 20.8 sec (9.0-12.0)
[2021-07-06 06:52] LABS: Glucose,Whole Blood 123 mg/dL (75-99)
[2021-07-06] MEDS: INSULIN ASPART (NovoLOG) 100 UNIT/ML VIAL SQ SCH ×3 (06:53→17:07)
[2021-07-06] MEDS: FERROUS SULFATE 325 MG TAB PO SCH ×2 (06:59→21:03)
[2021-07-06] MEDS: metFORMIN 500 MG TAB PO SCH ×2 (06:59→21:04)
[2021-07-06] MEDS: PANTOPRAZOLE 40 MG TABLET PO SCH ×2 (06:59→17:07)
[2021-07-06] MEDS: FAMOTIDINE 20 MG TAB PO SCH ×2 (07:00→21:03)
[2021-07-06] MEDS: LORATADINE 10 MG TAB PO SCH (07:00)
[2021-07-06] MEDS: HYDROcodone/APAP 10-325MG 1 EACH TAB PO SCH ×2 (07:00→21:03)
[2021-07-06] MEDS: PREGABALIN 100 MG CAP PO SCH ×2 (07:00→21:04)
[2021-07-06] MEDS: NON FORMULARY DRUG (Lubiprostone [Amitiza] 24 MCG Capsule) PO SCH ×2 (07:01→21:05)
[2021-07-06] MEDS: FLUTICASONE 220 MCG INHALER INHALATION SCH ×2 (07:35→21:03)
[2021-07-06 11:40] LABS: Glucose,Whole Blood 142 mg/dL (75-99)
[2021-07-06] MEDS: NON FORMULARY DRUG (Morphine Pain Pump 1 DOSE) MISCELLANE SCH (11:48)
[2021-07-06 16:43] LABS: Glucose,Whole Blood 139 mg/dL (75-99)
[2021-07-06] MEDS ORDERED: WARFARIN 10 MG TAB PO ONE (18:00)
[2021-07-06] MEDS: traMADol 50 MG TAB PO PRN (18:24)
--- NOTE | 2021-07-06 20:26 | P.PN ---
Subjective Hospital course: This is a pleasant 51-year-old male , follows with Dr. Waggoner. patient has a right Charcot foot and also found to have what osteomyelitis in October 2020. Received antibiotics. Was readmitted in January. Subsequently in January he w ent down to [facility] and had surgery carried out with some bone was removed and couple of plates and screws were placed in the foot. Patient has a boot. Able to weight bear. 2 days ago he had a follow-up appointment stool everything is fine. He is also has a supportive shoe on the left foot. 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 Patient was admitted here in end of April for a week at possible cellulitis. Patient now has developed a wound to the bottom of the left foot. It opened up and mid foot on the plantar surface than the heel opened up. Says been draining. He was given antibiotics by his foot doctor Dr. Coleman. More pus started draining. He started having fevers at home. He was sent in for the same. Appetite is fair. Patient was seen earlier by Dr. Coleman is planning to an I&D tomorrow morning. Patient is started on antibiotics in the ER. Patient has some pain in the left foot. July 01: Patient taken to the OR per Dr. Coleman this morning. I&D of a deep plantar wound was carried out. Continue dressing in place. No fever. Cultures pending. On IV cefepime and vancomycin. I did discuss with Dr. Macedo from vascular to assess patient's vascular status. Concern about underlying osteomyelitis was discussed with Dr. Cifuentes from ID. oral intake fair. July 02: Up in a chair. Eating well. Pain in the left foot. No fever. On IV Ancef. Coumadin held by Dr. Coleman. July 03: Left foot pain is better. Seen by Dr. Coleman. Currently no further intervention. We'll resume Coumadin. Getting a PICC line for antibiotics. Looking for [facility] rehab. Left foot is nonweightbearing July 04: Oral intake fair. IV Ancef. Spoke to the block and case maker. Authorization has not come through. Patient left the state through Wednesday to go to rehab. 07/05/2021 Patient looks comfortable with no new complaints Hemodynamically stable. INR 1.9 and remains on Coumadin Also he is on Unasyn for his peptic foot ulcer secondary to staff MSSA and an aerobic VRE Pending insurance authorization to go to [facility] 07/08/2021 Patient awake, comfortable, sitting in chair. No new symptoms. Hemodynamically stable. INR 2.1. 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 Q7H42M [facility] Rx#:[id number] Oral Output: Urine Other: Voiding Method # Voids # Bowel Movements - Exam GENERAL: The patient is alert and oriented x3, not in any acute distress. Well developed, well nourished. HEENT: Pupils are round and equally reacting to light. EOMI. No scleral icterus. No conjunctival pallor. Normocephalic, atraumatic. No pharyngeal erythema. No thyromegaly. CARDIOVASCULAR: S1 and S2 present. No murmurs, rubs, or gallops. PULMONARY: Chest is clear to auscultation, no wheezing or crackles. ABDOMEN: Soft, nontender, nondistended, normoactive bowel sounds. No palpable organomegaly. MUSCULOSKELETAL: No joint swelling or deformity. -EXTREMITIES: No cyanosis, clubbing, or pedal edema. Left foot infection with a dressing and placed NEUROLOGICAL: Gross neurological examination did not reveal any focal deficits. SKIN: No rashes. no petechiae. - Labs CBC & Chem 7: 07/02/21 06:03 07/02/21 06:03 Labs: Abnormal Lab Results - Last 24 Hours (Table) 07/05/21 07/05/21 07/05/21 Range/Units 11:50 17:24 20:46 PT (9.0-12.0) sec INR (<1.2) POC Glucose (mg/dL) 322 H 123 H 136 H (75-99) mg/dL 07/06/21 07/06/21 Range/Units 05:11 06:49 PT 20.8 H (9.0-12.0) sec INR 2.1 H (<1.2) POC Glucose (mg/dL) 123 H (75-99) mg/dL Microbiology - Last 24 Hours (Table) 06/30/21 11:26 Blood Culture - Preliminary Blood No Growth after 120 hours 06/30/21 11:26 Blood Culture - Preliminary Blood No Growth after 120 hours 07/01/21 12:01 Anaerobic Culture - Final Foot - Left Enterococcus faecalis VRE Assessment and Plan Assessment: -Left foot plantar abscess. Symptoms present for at least 2 weeks. Growing staph aureus MSSA and VRE I&D : by Dr. Coleman on July 01. On IV Unasyn. Pending placement -Bilateral foot Charcot foot from diabetes Patient has a boot for the right leg and also supportive shoe for the left leg -Morbid obesity, BMI 46.8 Weight loss measures and follow with PCP -Diabetes mellitus type 2, chronically on insulin uncontrolled with hyperglycemia Follow Accu-Cheks. Levemir 40 units daily at bedtime -GERD On Pepcid -Diabetic peripheral neuropathy On Lyrica -Hyperlipidemia Lipitor -Essential hypertension Follow blood pressure closely -Chronic pain syndrome. 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
[2021-07-06 20:29] LABS: Glucose,Whole Blood 160 mg/dL (75-99)
[2021-07-06] MEDS: INSULIN DETEMIR (LEVEMIR) 100 UNIT/ML SYR SQ SCH (21:01)
[2021-07-06] MEDS: ATORVASTATIN 10 MG TAB PO SCH (21:03)
[2021-07-06] MEDS: LATANOPROST 0.005% OPHTH DROPS 2.5 ML BTL BOTH EYES SCH (21:07)
[2021-07-07 02:34] VITALS: RESP 18
[2021-07-07] MEDS: AMPICILLIN-SULBACTAM 3 GM in SODIUM CHLORIDE 0.9% 100 ML IVPB SCH ×2 (04:47→12:01)
[2021-07-07 04:54] LABS: INR 2.2 (<1.2); Prothrombin Time 21.7 sec (9.0-12.0)
[2021-07-07 06:46] LABS: Glucose,Whole Blood 118 mg/dL (75-99)
[2021-07-07] MEDS: FLUTICASONE 220 MCG INHALER INHALATION SCH (07:26)
[2021-07-07 07:56] VITALS: BP 118/65; PULSE 59; TEMP 98.2
[2021-07-07] MEDS: INSULIN ASPART (NovoLOG) 100 UNIT/ML VIAL SQ SCH ×2 (09:12→12:02)
[2021-07-07] MEDS: NON FORMULARY DRUG (Lubiprostone [Amitiza] 24 MCG Capsule) PO SCH (09:13)
[2021-07-07] MEDS: FAMOTIDINE 20 MG TAB PO SCH (09:31)
[2021-07-07] MEDS: HYDROcodone/APAP 10-325MG 1 EACH TAB PO SCH (09:31)
[2021-07-07] MEDS: PANTOPRAZOLE 40 MG TABLET PO SCH (09:32)
[2021-07-07] MEDS: PREGABALIN 100 MG CAP PO SCH (09:32)
[2021-07-07] MEDS: FERROUS SULFATE 325 MG TAB PO SCH (09:32)
[2021-07-07] MEDS: metFORMIN 500 MG TAB PO SCH (09:33)
[2021-07-07] MEDS: LORATADINE 10 MG TAB PO SCH (09:33)
[2021-07-07 11:15] LABS: Glucose,Whole Blood 158 mg/dL (75-99)
[2021-07-07] MEDS: traMADol 50 MG TAB PO PRN (11:34)
[2021-07-07] MEDS: NON FORMULARY DRUG (Morphine Pain Pump 1 DOSE) MISCELLANE SCH (12:02)
--- NOTE | 2021-07-07 12:45 | P.PN ---
Subjective Progress Note Date: 07/06/21 Principal diagnosis: Left diabetic foot infection Patient is a 51-year-old male with a past medical history significant for left Charcot foot and history of chronic nonhealing wound to the left foot area admitted to the hospital with infected left foot with a wound to the left foot plantar aspect as well as the left posterior heel area. The patient is status post surgical drainage of the left foot wounds 2 and drainage of the abscess completed on 07/01/2021 On today's evaluation that is 07/06/2021, the patient remains to be afebrile, the patient denies having any chest pain shortness of breath or cough, the patient denies abdominal pain or diarrhea and , the patient pain to the left foot is currently controlled Objective - Vital Signs Vital signs: Vital Signs Temp 97.6 F 07/06/21 08:00 Pulse 60 07/06/21 08:00 Resp 18 07/06/21 08:00 BP 118/71 07/06/21 08:00 Pulse Ox 94 L 07/06/21 08:00 Intake & Output 07/05/21 07/06/21 07/06/21 17:59 06:59 18:59 Intake Total Output Total Balance Intake: Intake, IV Titration Amount Ampicillin-Sulbactam 3 gm In Sodium Chloride 0.9% 100 ml @ 200 mls/hr IVPB Q6H [facility] Rx#:[id number] Sodium Chloride 0.9% 1, 000 ml @ 130 mls/hr IV . Q7H42M [facility] Rx#:[id number] Oral Output: Urine Other: Voiding Method # Voids # Bowel Movements - Exam GENERAL DESCRIPTION: Middle-age male lying in bed in no distress RESPIRATORY SYSTEM: Unlabored breathing , decreased breath sounds at bases HEART: S1 S2 regular rate and rhythm , ABDOMEN: Soft , no tenderness EXTREMITIES: Left foot is currently dressed no drainage on the dressing - Labs CBC & Chem 7: 07/02/21 06:03 07/02/21 06:03 Labs: Abnormal Lab Results - Last 24 Hours (Table) 07/05/21 07/05/21 07/06/21 Range/Units 17:24 20:46 05:11 PT 20.8 H (9.0-12.0) sec INR 2.1 H (<1.2) POC Glucose (mg/dL) 123 H 136 H (75-99) mg/dL 07/06/21 07/06/21 Range/Units 06:49 11:39 PT (9.0-12.0) sec INR (<1.2) POC Glucose (mg/dL) 123 H 142 H (75-99) mg/dL Microbiology - Last 24 Hours (Table) 06/30/21 11:26 Blood Culture - Final Blood No Growth after 144 hours 06/30/21 11:26 Blood Culture - Final Blood No Growth after 144 hours 07/01/21 12:01 Anaerobic Culture - Final Foot - Left Enterococcus faecalis VRE Assessment and Plan (1) Diabetic foot ulcer Current Visit: Yes Status: Acute Code(s): E11.621 - TYPE 2 DIABETES MELLITUS WITH FOOT ULCER; L97.509 - NON-PRESSURE CHRONIC ULCER OTH PRT UNSP FOOT W UNSP SEVERITY SNOMED Code(s): 770330851 Plan: 1patient presented to hospital with a left diabetic foot infection in this patient did have a chronic nonhealing wound on the left foot plantar aspect also with left posterior heel which is a new wound failing outpatient oral biotic therapy will need to cover for both gram-positive as well as gram-negative pathogen to be the likely bacteria responsible for this infection. 2patient is status post I&D of the left foot wounds and drainage of the abscess culture has been obtained which has been finalized with MSSA and VRE that is penicillin sensitive 3patient is currently being treated with Unasyn 3 g every 6 hours, and the p atient is currently waiting for placement Time with Patient: Less than 30
--- NOTE | 2021-07-07 12:47 | P.PN ---
Subjective Progress Note Date: 07/07/21 Principal diagnosis: Left diabetic foot infection Patient is a 51-year-old male with a past medical history significant for left Charcot foot and history of chronic nonhealing wound to the left foot area admitted to the hospital with infected left foot with a wound to the left foot plantar aspect as well as the left posterior heel area. The patient is status post surgical drainage of the left foot wounds 2 and drainage of the abscess completed on 07/01/2021 On today's evaluation that is 07/07/2021, the patient denies any fever or any chills, the patient denies having any chest pain shortness of breath or cough, the patient denies abdominal pain and no diarrhea with antibiotic therapy , the patient pain to the left foot is currently controlled Objective - Vital Signs Vital signs: Vital Signs Temp 98.2 F 07/07/21 07:03 Pulse 59 L 07/07/21 07:03 Resp 18 07/07/21 07:03 BP 118/65 07/07/21 07:03 Pulse Ox 94 L 07/07/21 07:03 Intake & Output 07/06/21 07/07/21 07/07/21 18:59 06:59 18:59 Intake Total 400 Output Total 1350 Balance -950 Intake: Intake, IV Titration 100 Amount Ampicillin-Sulbactam 3 gm 100 In Sodium Chloride 0.9% 100 ml @ 200 mls/hr IVPB Q6H [facility] Rx#:[id number] Oral 300 Output: Urine 1350 Other: Voiding Method Urinal # Voids 2 # Bowel Movements 1 - Exam GENERAL DESCRIPTION: Middle-age male lying in bed in no distress RESPIRATORY SYSTEM: Unlabored breathing , decreased breath sounds at bases HEART: S1 S2 regular rate and rhythm , ABDOMEN: Soft , no tenderness EXTREMITIES: Left foot plantar as well as posterior heel wound with no significant slough tissue some maceration no purulent drainage - Labs CBC & Chem 7: 07/02/21 06:03 07/02/21 06:03 Labs: Abnormal Lab Results - Last 24 Hours (Table) 07/06/21 07/06/21 07/07/21 Range/Units 16:41 20:24 04:06 PT 21.7 H (9.0-12.0) sec INR 2.2 H (<1.2) POC Glucose (mg/dL) 139 H 160 H (75-99) mg/dL 07/07/21 07/07/21 Range/Units 06:44 11:13 PT (9.0-12.0) sec INR (<1.2) POC Glucose (mg/dL) 118 H 158 H (75-99) mg/dL Microbiology - Last 24 Hours (Table) 06/30/21 11:26 Blood Culture - Final Blood No Growth after 144 hours 06/30/21 11:26 Blood Culture - Final Blood No Growth after 144 hours Assessment and Plan (1) Diabetic foot ulcer Current Visit: Yes Status: Acute Code(s): E11.621 - TYPE 2 DIABETES MELLITUS WITH FOOT ULCER; L97.509 - NON-PRESSURE CHRONIC ULCER OTH PRT UNSP FOOT W UNSP SEVERITY SNOMED Code(s): 519856587 Plan: 1patient presented to hospital with a left diabetic foot infection in this patient did have a chronic nonhealing wound on the left foot plantar aspect also with left posterior heel which is a new wound failing outpatient oral biotic therapy will need to cover for both gram-positive as well as gram-negative pathogen to be the likely bacteria responsible for this infection. 2patient is status post I&D of the left foot wounds and drainage of the abscess culture has been obtained which has been finalized with MSSA and VRE that is penicillin sensitive 3patient to continue with Unasyn 3 g every 6 hours 4-6 weeks depending Upon clinical response with weekly monitoring of CBC BMP and a sed rate and close outpatient follow-up Time with Patient: Less than 30
[2021-07-07 12:58] VITALS: BMI 46.7
--- NOTE | 2021-07-07 14:34 | P.DS ---
Providers Date of admission: 06/30/21 12:28 Expected date of discharge: 07/07/21 Attending physician: Heri Alvarez Consults: 06/30/21 12:49 Consult Physician Urgent Consulting Provider: Kalina Lang Consult Reason/Comments: foot ulcers Do you want consulting provider notified?: Yes 06/30/21 15:52 Consult Physician Urgent Consulting Provider: Ayo Coleman Consult Reason/Comments: Left foot ulcer Do you want consulting provider notified?: Yes 07/01/21 02:33 Consult Physician Urgent Consulting Provider: Dick Fuentes Consult Reason/Comments: foot ulcer, follow patient while Dr. Coleman is out of town Do you want consulting provider notified?: Already Contacted Primary care physician: Dl Rosaline [facility] Course: Discharge diagnoses -Left foot plantar abscess. Symptoms present for at least 2 weeks. Growing staph aureus MSSA and VRE I&D : by Dr. Coleman on July 01. On IV Unasyn. -Bilateral foot Charcot foot from diabetes Patient has a boot for the right leg and also supportive shoe for the left leg -Morbid obesity, BMI 46.8-Weight loss measures and follow with PCP -Diabetes mellitus type 2, chronically on insulin uncontrolled with hyperglycemia -GERD -Diabetic peripheral neuropathy -Hyperlipidemia -Essential hypertension -Chronic pain syndrome. 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 Waggoner. patient has a right Charcot foot and also found to have what osteomyelitis in October 2020. Received antibiotics. Was readmitted in January. Subsequently in January he went down to [facility] and had surgery carried out with some bone was removed and couple of plates and screws were placed in the foot. Patient has a boot. Able to weight bear. 2 days ago he had a follow-up appointment stool everything is fine. He is also has a supportive shoe on the left foot. 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 Patient was admitted here in end of April for a week at possible cellulitis. Patient now has developed a wound to the bottom of the left foot. It opened up and mid foot on the plantar surface than the heel opened up. Says been draining. He was given antibiotics by his foot doctor Dr. Coleman. More pus started draining. He started having fevers at home. He was sent in for the same. Appetite is fair. Patient was seen earlier by Dr. Coleman is planning to an I&D tomorrow morning. Patient is started on antibiotics in the ER. Patient has some pain in the left foot. July 01: Patient taken to the OR per Dr. Coleman this morning. I&D of a deep plantar wound was carried out. Continue dressing in place. No fever. Cultures pending. On IV cefepime and vancomycin. I did discuss with Dr. Macedo from [facility] to assess patient's vascular status. Concern about underlying osteomyelitis was discussed with Dr. Cifuentes from ID. oral intake fair. July 02: Up in a chair. Eating well. Pain in the left foot. No fever. On IV Ancef. Coumadin held by Dr. Coleman. July 03: Left foot pain is better. Seen by Dr. Coleman. Currently no further intervention. We'll resume Coumadin. Getting a PICC line for antibiotics. Looking for [facility] rehab. Left foot is nonweightbearing July 04: Oral intake fair. IV Ancef. Spoke to the nurse outreach case manager. Authorization has not come through. Patient left the state through Wednesday to go to rehab. 07/05/2021 Patient looks comfortable with no new complaints Hemodynamically stable. INR 1.9 and remains on Coumadin Also he is on Unasyn for his peptic foot ulcer secondary to staff MSSA and an aerobic VRE Pending insurance authorization to go to [facility] 07/06/2021 Patient awake, comfortable, sitting in chair. No new symptoms. Hemodynamically stable. INR 2.1. He has history of DVT twice more than 10 years ago as he states with recommendation for lifelong anticoagulation ID team on the case Glucose controlled On Unasyn anode worker of the case 07/07/2021 Patient is currently sitting on the recliner. Left heel/foot pain is controlled. Patient has been afebrile. No complaints of chest pain or shortness of breath. No nausea vomiting or abdominal pain or diarrhea. No acute overnight issues. Patient will be continued on antibiotics in the form of Unasyn for 4-6 as per ID recommendations. Patient did follow with wound care center and surgery. Patient be current on pain management with [place] and recovering. Being discharged to rehab today. - Exam GENERAL: The patient is alert and oriented x3, not in any acute distress. Well developed, well nourished. HEENT: Pupils are round and equally reacting to light. EOMI. No scleral icterus. No conjunctival pallor. Normocephalic, atraumatic. No pharyngeal erythema. No thyromegaly. CARDIOVASCULAR: S1 and S2 present. No murmurs, rubs, or gallops. PULMONARY: Chest is clear to auscultation, no wheezing or crackles. ABDOMEN: Soft, nontender, nondistended, normoactive bowel sounds. No palpable organomegaly. MUSCULOSKELETAL: No joint swelling or deformity. -EXTREMITIES: No cyanosis, clubbing, or pedal edema. Left foot /heel wound on the plantar surface with a dressing and placed NEUROLOGICAL: Gross neurological examination did not reveal any focal deficits. SKIN: No rashes. no petechiae. Vital Signs 07/07/21 07:03 Temperature 98.2 F Pulse Rate [ 59 L Pulse Oximetery ] Respiratory 18 Rate Blood Pressure 118/65 [Right Arm] O2 Sat by Pulse 94 L Oximetry Total time taken greater than 35 minutes including 18 minutes for counseling and coordination of care. Patient Condition at Discharge: Stable Plan - Discharge Summary Discharge Rx Participant: No New Discharge Prescriptions: New Acetaminophen Tab [Tylenol] 650 mg PO Q6HR PRN tab PRN Reason: Mild Pain Or Fever > 100.5 Ampicillin-Sulbactam [Unasyn] 3 gm IVPB Q6HR #112 each Continue Simvastatin [Zocor] 20 mg PO HS Latanoprost Ophth [Xalatan 0.005%] 1 drop BOTH EYES HS Loratadine [Claritin] 10 mg PO DAILY metFORMIN HCL [Glucophage] 1,000 mg PO BID Pantoprazole Sodium [Protonix] 40 mg PO BID Morphine Pain Pump 1 dose INTRATHECA CONTINUOUS Lubiprostone [Amitiza] 24 mcg PO BID Pregabalin [Lyrica] 200 mg PO BID #6 cap HYDROcodone/APAP 10-325MG [[place] 10-325] 1 tab PO BID #6 tab Fluticasone Propionate [Flovent Hfa 220 mcg] 2 puff INHALATION RT-BID Ferrous Sulfate [Iron (65 MG Elemental)] 325 mg PO BID SUMAtriptan succinate [Imitrex] 50 mg PO DAILY PRN PRN Reason: Migraine Headache Furosemide [Lasix] 40 mg PO DAILY lisinopriL [Zestril] 2.5 mg PO DAILY INSULIN LISPRO (HumaLOG) [humaLOG] See Protocol SQ ACHS Warfarin Sodium 10 mg PO HS Potassium Chloride ER [K-Dur 10] 10 meq PO DAILY Changed Insulin Glargine,Hum.rec.anlog [Lantus Solostar Pen] 40 unit SQ HS #0 Discontinued Levofloxacin [Levaquin] 500 mg PO DAILY Omeprazole 20 mg PO BID Discharge Medication List Latanoprost Ophth [Xalatan 0.005%] 1 drop BOTH EYES HS 01/23/14 [History] Simvastatin [Zocor] 20 mg PO HS 01/23/14 [History] Loratadine [Claritin] 10 mg PO DAILY 01/28/16 [History] Pantoprazole Sodium [Protonix] 40 mg PO BID 01/28/16 [History] metFORMIN HCL [Glucophage] 1,000 mg PO BID 01/28/16 [History] Morphine Pain Pump 1 dose INTRATHECA CONTINUOUS 05/05/17 [History] Ferrous Sulfate [Iron (65 MG Elemental)] 325 mg PO BID 10/25/20 [History] Fluticasone Propionate [Flovent Hfa 220 mcg] 2 puff INHALATION RT-BID 10/25/20 [History] Furosemide [Lasix] 40 mg PO DAILY 10/25/20 [History] SUMAtriptan succinate [Imitrex] 50 mg PO DAILY PRN 10/25/20 [History] INSULIN LISPRO (HumaLOG) [humaLOG] See Protocol SQ ACHS 05/15/21 [History] Lubiprostone [Amitiza] 24 mcg PO BID 05/15/21 [History] Potassium Chloride ER [K-Dur 10] 10 meq PO DAILY 05/15/21 [History] Warfarin Sodium 10 mg PO HS 05/15/21 [History] lisinopriL [Zestril] 2.5 mg PO DAILY 05/15/21 [History] Acetaminophen Tab [Tylenol] 650 mg PO Q6HR PRN tab 07/04/21 [Rx] HYDROcodone/APAP 10-325MG [[place] 10-325] 1 tab PO BID #6 tab 07/04/21 [Rx] Insulin Glargine,Hum.rec.anlog [Lantus Solostar Pen] 40 unit SQ HS #0 07/04/21 [Rx] Pregabalin [Lyrica] 200 mg PO BID #6 cap 07/04/21 [Rx] Ampicillin-Sulbactam [Unasyn] 3 gm IVPB Q6HR #112 each 07/07/21 [Rx] Follow up Appointment(s)/Referral(s): Ayo Coleman DPM [STAFF PHYSICIAN] - 1 Week Dl Waggoner MD [Primary Care Provider] - 07/11/21 10:30 am Kalina Lang MD [STAFF PHYSICIAN] - 2 Weeks Ambulatory/Diagnostic Orders: Basic Metabolic Panel [LAB.AMB] Location: None Selected C Reactive Protein [LAB.AMB] Location: None Selected Complete Blood Count w/diff [LAB.AMB] Location: None Selected Erythrocyte Sedimentation Rate [LAB.AMB] Location: None Selected Activity/Diet/Wound Care/Special Instructions: Patient will discharge to [facility]. Diet: Consistent Carbohydrate regular diet Wound Care to Left Foot Ulcers: Cleanse with normal saline daily then apply Thera-Honey to Plantar and Heel wounds. Secure with dry dressing. Speedy wrap. Discharge Disposition: TRANSFER TO SNF/ECF
[2021-07-07 16:13] LABS: Glucose,Whole Blood 148 mg/dL (75-99)
[2021-07-07] MEDS ORDERED: WARFARIN 10 MG TAB PO ONE (18:00)
== END 2021-07-07 16:22 | DRG 982 ==
LOC: EC 10:28 → 5NMEDONC 12:28 → 4SSUR 07-02 23:13 → 5NMEDONC 07-03 00:12 → 4SSUR 07-03 00:14
PROVIDERS: ADMIT Hospitalist; ATTEND Hospitalist
PROC: 0JDR0ZZ Extraction of Left Foot Subcutaneous Tissue and Fascia, Open Approach (ICD-10-PCS; principal; 2021-07-01 10:00)
PROC: 02HV33Z Insertion of Infusion Device into Superior Vena Cava, Percutaneous Approach (ICD-10-PCS; 2021-07-03)
PROC: B5181ZA Fluoroscopy of Superior Vena Cava using Low Osmolar Contrast, Guidance (ICD-10-PCS; 2021-07-03)
PROC: B548ZZA Ultrasonography of Superior Vena Cava, Guidance (ICD-10-PCS; 2021-07-03)
DX: E11.621 Type 2 diabetes mellitus with foot ulcer (principal); D68.51 Activated protein C resistance; L02.612 Cutaneous abscess of left foot; L03.116 Cellulitis of left lower limb; Z68.42 Body mass index [BMI] 45.0-49.9, adult; Z16.21 Resistance to vancomycin; E11.42 Type 2 diabetes mellitus with diabetic polyneuropathy; E11.43 Type 2 diabetes mellitus with diabetic autonomic (poly)neuropathy; E11.51 Type 2 diabetes mellitus with diabetic peripheral angiopathy without gangrene; E11.610 Type 2 diabetes mellitus with diabetic neuropathic arthropathy; E11.65 Type 2 diabetes mellitus with hyperglycemia; E11.628 Type 2 diabetes mellitus with other skin complications; E66.01 Morbid (severe) obesity due to excess calories; E78.5 Hyperlipidemia, unspecified; B95.61 Methicillin susceptible Staphylococcus aureus infection as the cause of diseases classified elsewhere; F41.8 Other specified anxiety disorders; G43.909 Migraine, unspecified, not intractable, without status migrainosus; G47.33 Obstructive sleep apnea (adult) (pediatric); G89.4 Chronic pain syndrome; H54.8 Legal blindness, as defined in USA; I10 Essential (primary) hypertension; K21.9 Gastro-esophageal reflux disease without esophagitis; K31.84 Gastroparesis; K76.0 Fatty (change of) liver, not elsewhere classified; L97.529 Non-pressure chronic ulcer of other part of left foot with unspecified severity; M19.91 Primary osteoarthritis, unspecified site; M51.26 Other intervertebral disc displacement, lumbar region; M85.80 Other specified disorders of bone density and structure, unspecified site; Z79.01 Long term (current) use of anticoagulants; Z79.4 Long term (current) use of insulin; Z79.899 Other long term (current) drug therapy; Z80.52 Family history of malignant neoplasm of bladder; Z82.3 Family history of stroke; Z82.49 Family history of ischemic heart disease and other diseases of the circulatory system; Z83.3 Family history of diabetes mellitus; Z86.718 Personal history of other venous thrombosis and embolism; Z79.51 Long term (current) use of inhaled steroids; Z91.048 Other nonmedicinal substance allergy status
CPT/HCPCS: 36415; 36573; 71045; 80048; 80053; 83605; 85025; 85610; 85652; 85730; 86140; 87040; 87070; 87075; 87077; 87186; 87205; 93005; 94640; 94760; 96365; 96366; 96367; 99285

== ENCOUNTER 2021-11-10 00:22 | Inpatient (IN) | payer OTHER ==
[2021-11-10] MEDS ORDERED: IPRATROPIUM-ALBUTEROL 3 ML NEB INHALATION STA ×2 (00:35→00:37)
--- NOTE | 2021-11-10 00:37 | ED ---
Chest Pain HPI - General Stated Complaint: Chest pain Time Seen by Provider: 11/10/21 00:29 Source: RN notes reviewed, old records reviewed, Caregiver Mode of arrival: EMS Limitations: altered mental status, physical limitation - History of Present Illness MD Complaint: chest pain, other (SOB, Weak, AMS) -: unknown Onset: during rest, during exertion Pain Location: substernal, left chest Pain Radiation: none Severity: severe Severity scale (1-10): 10 Quality: tightness, aching, heaviness Consistency: constant, intermittent Worsens With: exertion Context: recent illness (COVID), recent surgery (Heart Cath) Anginal Symptoms: nausea Other Symptoms: palpitations Treatments Prior to Arrival: oxygen - Related Data Home Medications Medication Instructions Recorded Confirmed Latanoprost Ophth [Xalatan 0.005%] 1 drop BOTH EYES HS 01/23/14 06/30/21 Simvastatin [Zocor] 20 mg PO HS 01/23/14 06/30/21 Loratadine [Claritin] 10 mg PO DAILY 01/28/16 06/30/21 Pantoprazole Sodium [Protonix] 40 mg PO BID 01/28/16 06/30/21 metFORMIN HCL [Glucophage] 1,000 mg PO BID 01/28/16 06/30/21 Morphine Pain Pump 1 dose INTRATHECA CONTINUOUS 05/05/17 06/30/21 Ferrous Sulfate [Iron (65 MG 325 mg PO BID 10/25/20 06/30/21 Elemental)] Fluticasone Propionate [Flovent 2 puff INHALATION RT-BID 10/25/20 06/30/21 Hfa 220 mcg] Furosemide [Lasix] 40 mg PO DAILY 10/25/20 06/30/21 SUMAtriptan succinate [Imitrex] 50 mg PO DAILY PRN 10/25/20 06/30/21 INSULIN LISPRO (HumaLOG) [humaLOG] See Protocol SQ ACHS 05/15/21 06/30/21 Lubiprostone [Amitiza] 24 mcg PO BID 05/15/21 06/30/21 Potassium Chloride ER [K-Dur 10] 10 meq PO DAILY 05/15/21 06/30/21 Warfarin Sodium 10 mg PO HS 05/15/21 06/30/21 lisinopriL [Zestril] 2.5 mg PO DAILY 05/15/21 06/30/21 Previous Rx's Medication Instructions Recorded Acetaminophen Tab [Tylenol] 650 mg PO Q6HR PRN tab 07/04/21 HYDROcodone/APAP 10-325MG [[place] 1 tab PO BID #6 tab 07/04/21 10-325] Insulin Glargine,Hum.rec.anlog 40 unit SQ HS #0 07/04/21 [Lantus Solostar Pen] Pregabalin [Lyrica] 200 mg PO BID #6 cap 07/04/21 Ampicillin-Sulbactam [Unasyn] 3 gm IVPB Q6HR #112 each 07/07/21 Allergies Allergy/AdvReac Type Severity Reaction Status Date / Time adhesive Allergy Rash/Hives Verified 11/10/21 00:49 Review of Systems ROS Statement: Those systems with pertinent positive or pertinent negative responses have been documented in the HPI. ROS Other: All systems not noted in ROS Statement are negative. EKG Findings - EKG Comments: EKG Findings:: EKG sinus tachycardia 124 [address] 58 QRS is 70 QTC to 73 Past Medical History Past Medical History: Blood Disorder, Diabetes Mellitus, Deep Vein Thrombosis (DVT), GERD/Reflux, Hyperlipidemia, Hypertension, Musculoskeletal Disorder, Osteoarthritis (OA), Sleep Apnea/CPAP/BIPAP Additional Past Medical History / Comment(s): IDDM type II, neuropathy bilateral feet with R foot worse, charcot foot R/L, currently sores L foot and is NWB, recent surgery R foot with boot an can wt bear as tolerated, gastroparesis, hiatal hernia, esophageal narrowing (scarring)/past dysphagia/has had dilations, factor V leiden, 2 DVT's L leg, another superficial blood clot L leg, chronic back pain/has pain pump, DDD and bulging discs, legally blind L eye since , migraines, PVD, fatty liver, MEL with trilogy machine. History of Any Multi-Drug Resistant Organisms: VRE Date of last positivie culture/infection: 07/01/21 MDRO Source:: VRE FOOT Past Surgical History: Tonsillectomy Additional Past Surgical History / Comment(s): R foot/ankle surgery at [facility] with bone removal/hardware inserted, I&D L foot, pain pump insertion, col onoscopy, EGDs with dilations, UVPPP, eye surgery as an infant. Past Anesthesia/Blood Transfusion Reactions: Family History of Problems w/ Anesthesia Additional Past Anesthesia/Blood Transfusion Reaction / Comment(s): STATES "MOTHER CRASHES" "passes out"-with anesthesia,"needs to have a pump and blower operator dose" Additional Psychological History / Comment(s): Pt resides with his spouse. He has a cane but has been using a walker more often lately. He has a medishoe on L foot which is nonwt bearing and a boot on r leg with which he can bear wt as tolerated. He cannot drive, his spouse drives. He has home care thru [facility]. He has glucometer and a trilogy vent machine. - Past Family History Father Family Medical History: Cancer Additional Family Medical History / Comment(s): BLADDER CANCER Mother Family Medical History: CVA/TIA, Diabetes Mellitus, Myocardial Infarction ([place]) General Exam Limitations: altered mental status, physical limitation General appearance: anxious, lethargic, in distress, obese Head exam: Present: atraumatic, normocephalic, normal inspection Eye exam: Present: normal appearance, PERRL, EOMI. Absent: scleral icterus, conjunctival injection, periorbital swelling ENT exam: Present: normal exam, mucous membranes moist Neck exam: Present: normal inspection. Absent: tenderness, meningismus, lymphadenopathy Respiratory exam: Present: respiratory distress, wheezes, rhonchi, decreased breath sounds, prolonged expiratory. Absent: rales, stridor Cardiovascular Exam: Present: normal rhythm, tachycardia, normal heart sounds. Absent: systolic murmur, diastolic murmur, rubs, gallop, clicks GI/Abdominal exam: Present: soft, normal bowel sounds. Absent: distended, tenderness, guarding, rebound, rigid Extremities exam: Present: normal inspection, full ROM, normal capillary refill. Absent: tenderness, pedal edema, joint swelling, calf tenderness Back exam: Present: normal inspection Neurological exam: Present: alert, oriented X3, CN II-XII intact Psychiatric exam: Present: normal affect, normal mood Skin exam: Present: warm, dry, intact, normal color. Absent: rash Course Vital Signs 11/10/21 11/10/21 11/10/21 00:46 00:49 00:58 Temperature 99.9 F H Pulse Rate 125 H 112 H Respiratory 32 H Rate Blood Pressure 133/74 O2 Sat by Pulse 98 Oximetry Fraction of 100 Inspired Oxygen (FIO2) 11/10/21 11/10/21 11/10/21 01:02 02:51 03:18 Temperature Pulse Rate 124 H 80 Respiratory 28 H Rate Blood Pressure 95/54 O2 Sat by Pulse 93 L Oximetry Fraction of 80 50 Inspired Oxygen (FIO2) - Reevaluation(s) Reevaluation #1: 11/10/21 02:25 Medical record is reviewed Reevaluation #2: 11/10/21 02:25 Patient placed on BiPAP upon arrival Disposition Clinical Impression: Acute exacerbation of chronic obstructive pulmonary disease, Community acquired pneumonia, Congestive heart failure, Acute pulmonary edema, Hypoxia, Acute respiratory failure, Weakness Disposition: ADMITTED IP TO THIS HOSP Condition: Serious Is patient prescribed a controlled substance at d/c from ED?: No Referrals: Nonstaff,Physician [REFERRING] - 1-2 days
--- NOTE | 2021-11-10 00:56 | XR ---
EXAMINATION TYPE: XR chest 1V portable DATE OF EXAM: 11/10/2021 COMPARISON: 06/30/2021 HISTORY: Chest pain TECHNIQUE: FINDINGS: There is some pulmonary interstitial edema. There is poor inspiration. Heart is slightly en larged. There are chest leads. IMPRESSION: There is pulmonary interstitial edema which is new compared to old exams this could be [place] interstitial pneumonia or acute heart failure.
[2021-11-10 02:32] LABS: Anisocytosis Slight; Basophils # (A) 0.1 k/uL (0-0.2); Basophils % (A) 1 %; Eosinophils # (A) 0.1 k/uL (0-0.7); Eosinophils % (A) 0 %; HCT 41.7 % (39.0-53.0); HGB 13.7 gm/dL (13.0-17.5); Lymphocytes # (A) 0.5 k/uL (1.0-4.8); Lymphocytes % (A) 4 %; MCH 30.5 pg (25.0-35.0); MCHC 32.9 g/dL (31.0-37.0); MCV 92.6 fL (80.0-100.0); Mean Platelet Volume 9.4; Monocytes # (A) 0.6 k/uL (0-1.0); Monocytes % (A) 5 %; Neutrophils # (A) 11.6 k/uL (1.3-7.7); Neutrophils % (A) 90 %; Platelet Count 182 k/uL (150-450); RDW 16.1 % (11.5-15.5); WBC 12.9 k/uL (3.8-10.6)
[2021-11-10 02:55] LABS: Albumin 3.6 g/dL (3.5-5.0); Calcium 8.8 mg/dL (8.4-10.2); Magnesium 1.4 mg/dL (1.6-2.3); Potassium 5.3 mmol/L (3.5-5.1); Total Bilirubin 0.4 mg/dL (0.2-1.3); Total Protein 6.2 g/dL (6.3-8.2)
[2021-11-10 02:59] LABS: Prothrombin Time 11.2 sec (9.0-12.0)
[2021-11-10 04:39] LABS: C Reactive Protein 1.6 mg/dL (<1.0)
[2021-11-10] MEDS ORDERED: AZITHROMYCIN 500 MG in SODIUM CHLORIDE 0.9% 250 ML IVPB STA (04:56)
[2021-11-10] MEDS ORDERED: ALBUTEROL NEBULIZED 2.5 MG/3 ML INHALATION PRN (04:56)
[2021-11-10] MEDS ORDERED: PNEUMONIA PROTOCOL UTILIZED 1 EACH MISC PO PRN (04:56)
[2021-11-10] MEDS ORDERED: SODIUM CHLORIDE 0.9% 2,000 ML IV ONE (06:40)
[2021-11-10] MEDS ORDERED: NALOXONE 0.4 MG/ML 1 ML VIAL IV PRN (07:02)
[2021-11-10] MEDS: NOREPINEPHRINE 32 MG in SODIUM CHLORIDE 0.9% 218 ML IV ONE (07:05)
[2021-11-10 07:56] LABS: ABG HCO3 24 mmol/L (21-25); ABG Oxygen Saturation 94.6 % (94-97); ABG PCO2 64 mmHg (35-45); ABG PO2 83 mmHg (83-108); ABG TCO2 26 mmol/L (19-24); Allen Test Performed? Yes
[2021-11-10 08:01] LABS: ABG PH 7.17 (7.35-7.45)
[2021-11-10 08:37] LABS: Glucose,Whole Blood 370 mg/dL (70-110)
[2021-11-10] MEDS ORDERED: ENOXAPARIN 40 MG/0.4 ML SYRINGE SQ SCH (09:00)
--- NOTE | 2021-11-10 09:10 | P.CRDCN ---
History of Present Illness Consult date: 11/10/21 Consult reason: chest pain History of present illness: The patient is a 51-year-old male with no significant cardiac history, who presented to the emergency room with worsening shortness of breath. Initial EKG shows sinus tachycardia without ST or T-wave abnormalities. Chest x-ray shows bilateral pneumonia. Cardiology was consulted for congestive heart failure. The patient was interviewed and examined lying comfortably on BiPAP in the [facility] room. He does open his eyes and nod to simple questions. DIAGNOSTICS: EKG shows sinus tachycardia Chest x-ray shows interstitial edema Lab data: WBC 12.9, hemoglobin 13.7, hematocrit 41.7, platelet 182, sodium 133, potassium 5.3, BUN 38, creatinine 1.90, AST 20, ALT 22, ALP 140, lactate 770, lactic acid 3.4, a museum 1.4, BNP 176, troponin negative Vital signs blood pressure 111/51, heart rate 98, respiratory rate 18, SpO2 94% on 40% BiPAP, temp 99.6F PAST MEDICAL HISTORY: Hypertension, obesity, sleep apnea, DVT, diabetes mellitus, dyslipidemia, factor V Leiden REVIEW OF SYSTEMS: Positive for shortness of breath. Negative for chest pain or chest pressure. PHYSICAL EXAMINATION: This is a 51-year-old obese male in no apparent distress at the time of my examination. HEENT: Head is atraumatic, normocephalic. Pupils are equal, round. Sclerae anicteric. Conjunctivae are clear. There is no jugular venous distention. No carotid bruit is heard. CHEST EXAMINATION: Lungs are rhonchorous to auscultation bilaterally. No chest wall tenderness is noted on palpation or with deep breathing. HEART EXAMINATION: Heart regular rate and rhythm. S1, S2 heard. No murmurs, gallops or rub. ABDOMEN: Soft, nontender. Bowel sounds are heard. No organomegaly noted. EXTREMITIES: +2 bilateral lower extremity edema and no calf tenderness noted. NEUROLOGIC EXAMINATION: Patient is lethargic. Responsive to name. FINAL ASSESSMENT AND PLAN: Shortness of breath, secondary to bilateral pneumonia History of hypertension, currently hypotensive on norepinephrine History of diabetes mellitus History of dyslipidemia History of factor V Leiden, on warfarin History of DVT PLAN: Anticoagulation per primary team with history of factor V Leiden and DVT Hold Lasix and lisinopril as the patient is hypotensive Resume statin Echocardiogram and Doppler study Further recommendations to be based on clinical course I am dictating on behalf of Dr Mike Jasso's history/physical and assessment/plan. Past Medical History Past Medical History: Blood Disorder, Diabetes Mellitus, Deep Vein Thrombosis (DVT), GERD/Reflux, Hyperlipidemia, Hypertension, Musculoskeletal Disorder, Osteoarthritis (OA), Sleep Apnea/CPAP/BIPAP Additional Past Medical History / Comment(s): IDDM type II, neuropathy bilateral feet with R foot worse, charcot foot R/L, currently sores L foot and is NWB, recent surgery R foot with boot an can wt bear as tolerated, gastroparesis, hiatal hernia, esophageal narrowing (scarring)/past dysphagia/has had dilations, factor V leiden, 2 DVT's L leg, another superficial blood clot L leg, chronic back pain/has pain pump, DDD and bulging discs, legally blind L eye since , migraines, PVD, fatty liver, MEL with trilogy machine. History of Any Multi-Drug Resistant Organisms: VRE Date of last positivie culture/infection: 07/01/21 MDRO Source:: VRE FOOT Past Surgical History: Tonsillectomy Additional Past Surgical History / Comment(s): R foot/ankle surgery at [facility] with bone removal/hardware inserted, I&D L foot, pain pump insertion, colonoscopy, EGDs with dilations, UVPPP, eye surgery as an . Past Anesthesia/Blood Transfusion Reactions: Family History of Problems w/ Anesthesia Additional Past Anesthesia/Blood Transfusion Reaction / Comment(s): STATES "MOTHER CRASHES" "passes out"-with anesthesia,"needs to have a technology education instructor dose" Additional Psychological History / Comment(s): Pt resides with his spouse. He has a cane but has been using a walker more often lately. He has a medishoe on L foot which is nonwt bearing and a boot on r leg with which he can bear wt as tolerated. He cannot drive, his spouse drives. He has home care thru [facility]. He has glucometer and a trilogy vent machine. - Past Family History Father Family Medical History: Cancer Additional Family Medical History / Comment(s): BLADDER CANCER Mother Family Medical History: CVA/TIA, Diabetes Mellitus, Myocardial Infarction ([place]) Medications and Allergies Home Medications Medication Instructions Recorded Confirmed Type Latanoprost Ophth [Xalatan 0.005%] 1 drop BOTH EYES HS 01/23/14 06/30/21 History Simvastatin [Zocor] 20 mg PO HS 01/23/14 06/30/21 History Loratadine [Claritin] 10 mg PO DAILY 01/28/16 06/30/21 History Pantoprazole Sodium [Protonix] 40 mg PO BID 01/28/16 06/30/21 History metFORMIN HCL [Glucophage] 1,000 mg PO BID 01/28/16 06/30/21 History Morphine Pain Pump 1 dose INTRATHECA CONTINUOUS 05/05/17 06/30/21 History Ferrous Sulfate [Iron (65 MG 325 mg PO BID 10/25/20 06/30/21 History Elemental)] Fluticasone Propionate [Flovent 2 puff INHALATION RT-BID 10/25/20 06/30/21 History Hfa 220 mcg] Furosemide [Lasix] 40 mg PO DAILY 10/25/20 06/30/21 History SUMAtriptan succinate [Imitrex] 50 mg PO DAILY PRN 10/25/20 06/30/21 History INSULIN LISPRO (HumaLOG) [humaLOG] See Protocol SQ ACHS 05/15/21 06/30/21 History Lubiprostone [Amitiza] 24 mcg PO BID 05/15/21 06/30/21 History Potassium Chloride ER [K-Dur 10] 10 meq PO DAILY 05/15/21 06/30/21 History Warfarin Sodium 10 mg PO HS 05/15/21 06/30/21 History lisinopriL [Zestril] 2.5 mg PO DAILY 05/15/21 06/30/21 History Acetaminophen Tab [Tylenol] 650 mg PO Q6HR PRN tab 07/04/21 Rx HYDROcodone/APAP 10-325MG [[place] 1 tab PO BID #6 tab 07/04/21 Rx 10-325] Insulin Glargine,Hum.rec.anlog 40 unit SQ HS #0 07/04/21 06/30/21 Rx [Lantus Solostar Pen] Pregabalin [Lyrica] 200 mg PO BID #6 cap 07/04/21 Rx Ampicillin-Sulbactam [Unasyn] 3 gm IVPB Q6HR #112 each 07/07/21 Rx Allergies Allergy/AdvReac Type Severity Reaction Status Date / Time adhesive Allergy Rash/Hives Verified 11/10/21 08:41 Physical Exam Vitals: Vital Signs Temp Pulse Resp BP Pulse Ox FiO2 11/10/21 08:10 100 21 115/53 93 L 11/10/21 08:03 96 11/10/21 08:02 40 11/10/21 08:00 99.8 F H 11/10/21 07:47 94 50 11/10/21 06:31 68 18 77/46 97 11/10/21 03:18 50 11/10/21 02:51 80 28 H 95/54 93 L 11/10/21 01:02 124 H 80 11/10/21 00:58 100 11/10/21 00:49 112 H 11/10/21 00:46 99.9 F H 125 H 32 H 133/74 98 Intake and Output 11/09/21 11/10/21 11/10/21 22:59 06:59 14:59 Intake Total 4.738 Balance 4.738 Intake: Intake, IV Titration 4.738 Amount Norepinephrine 32 mg In 4.738 Sodium Chloride 0.9% 218 ml @ 0.05 MCG/KG/MIN 3. 083 mls/hr IV .Q24H ONE Rx#:[id number] Other: Weight 131.542 kg Results 11/10/21 02:21 11/10/21 01:59 Cardiac Enzymes 11/10/21 11/10/21 11/10/21 Range/Units 01:59 01:59 02:00 AST 20 (17-59) U/L Lactate Dehydrogenase 770 H (313-618) U/L Troponin I <0.012 (0.000-0.034) ng/mL Coagulation 11/10/21 Range/Units 01:59 PT 11.2 (9.0-12.0) sec APTT 22.0 (22.0-30.0) sec CBC 11/10/21 Range/Units 02:21 WBC 12.9 H (3.8-10.6) k/uL RBC 4.50 (4.30-5.90) m/uL Hgb 13.7 (13.0-17.5) gm/dL Hct 41.7 (39.0-53.0) % Plt Count 182 (150-450) k/uL Comprehensive Metabolic Panel 11/10/21 Range/Units 01:59 Sodium 133 L (137-145) mmol/L Potassium 5.3 H (3.5-5.1) mmol/L Chloride 103 (98-107) mmol/L Carbon Dioxide 20 L (22-30) mmol/L BUN 38 H (9-20) mg/dL Creatinine 1.98 H (0.66-1.25) mg/dL Glucose 351 H (74-99) mg/dL Calcium 8.8 (8.4-10.2) mg/dL AST 20 (17-59) U/L ALT 22 (4-49) U/L Alkaline Phosphatase 140 H (38-126) U/L Total Protein 6.2 L (6.3-8.2) g/dL Albumin 3.6 (3.5-5.0) g/dL Current Medications Generic Name Dose Route Start Last Admin Trade Name Freq PRN Reason Stop Dose Admin Albuterol Sulfate 5 mg 11/10/21 04:56 11/10/21 07:39 Albuterol Nebulized 2.5 Mg/3 Ml INHALATION 5 mg RT-Q4H PRN Administration Shortness Of Breath Or Wheezing Enoxaparin Sodium 40 mg 11/10/21 09:00 Enoxaparin 40 Mg/0.4 Ml Syringe SQ DAILY ROBERTA Ceftriaxone Sodium 2 gm/ 50 mls @ 100 mls/hr 11/11/21 08:00 Sodium Chloride IVPB 11/14/21 08:29 Q24H ROBERTA Protocol Azithromycin 500 mg/ Sodium 250 mls @ 250 mls/hr 11/11/21 09:00 Chloride IVPB 11/12/21 09:59 DAILY ROBERTA Protocol Norepinephrine Bitartrate 32 250 mls @ 3.083 mls/hr 11/10/21 06:39 11/10/21 07:50 mg/ Sodium Chloride IV 11/11/21 06:38 0.05 mcg/kg/min .Q24H ONE 3.083 mls/hr Titration Protocol 0.05 MCG/KG/MIN Miscellaneous Information 1 each 11/10/21 04:56 Pneumonia Protocol Utilized 1 Each Misc PO ONCE PRN Per Protocol Naloxone HCl 0.2 mg 11/10/21 07:02 Naloxone 0.4 Mg/Ml 1 Ml Vial IV Q2M PRN Opioid Reversal Pantoprazole Sodium 40 mg 11/10/21 09:00 Pantoprazole 40 Mg/10 Ml Vial IV DAILY ROBERTA Intake and Output 11/09/21 11/10/21 11/10/21 22:59 06:59 14:59 Intake Total 4.738 Balance 4.738 Intake: Intake, IV Titration 4.738 Amount Norepinephrine 32 mg In 4.738 Sodium Chloride 0.9% 218 ml @ 0.05 MCG/KG/MIN 3. 083 mls/hr IV .Q24H ONE Rx#:[id number] Other: Weight 131.542 kg 11/10/21 02:21 11/10/21 01:59
[2021-11-10] MEDS: PANTOPRAZOLE 40 MG/10 ML VIAL IV SCH (09:33)
[2021-11-10 09:51] LABS: Amorphous Sediment,Urine Moderate /hpf; Appearance,Urine Cloudy (Clear); Bacteria,Urine Rare /hpf; Bilirubin,Urine Negative (Negative); Blood,Urine Trace (Negative); Color,Urine Yellow; Glucose,Urine (UA) 2+ (Negative); Granular Casts,Urine 1 /lpf (0); Hyaline Casts,Urine 36 /lpf (0-2); Ketones,Urine Negative (Negative); Leukocyte Esterase,Urine Negative (Negative); Mucus,Urine Few /hpf; Nitrite,Urine Negative (Negative); Protein,Urine 1+ (Negative); RBC,Urine 3 /hpf (0-5); Squamous Epithelial Cell,Urine 1 /hpf (0-4); Urobilinogen,Urine <2.0 mg/dL (<2.0); WBC,Urine 9 /hpf (0-5)
[2021-11-10] MEDS ORDERED: SODIUM BICARB 8.4% 50 ML SYR (1 MEQ/ML) IV STA (10:21)
[2021-11-10] MEDS ORDERED: HEPARIN SODIUM 1,000 UN/ML (10ML VL) IV PRN (10:27)
[2021-11-10] MEDS ORDERED: HEPARIN SODIUM 1,000 UN/ML (10ML VL) IV ONE (10:27)
[2021-11-10 11:26] LABS: Glucose,Whole Blood 457 mg/dL (70-110)
[2021-11-10] MEDS: HEPARIN SOD,PORK IN 0.45% NACL 25,000 UNIT in 0.45% NACL 1 250ML.BAG IV SCH (12:08)
[2021-11-10 12:10] LABS: ABG Base Excess -11.6 mmol/L; ABG HCO3 18 mmol/L (21-25); ABG PCO2 56 mmHg (35-45); ABG PO2 72 mmHg (83-108); ABG TCO2 20 mmol/L (19-24); Allen Test Performed? Yes
[2021-11-10 12:12] LABS: ABG PH 7.11 (7.35-7.45)
[2021-11-10] MEDS ORDERED: propofoL 100 ML IV ONE (12:17)
[2021-11-10] MEDS ORDERED: CISATRACURIUM 2 MG/ML 5 ML VIAL IV ONE (12:18)
[2021-11-10 12:32] LABS: INR 1.1 (<1.2); Partial Thromboplastin Time 26.6 sec (22.0-30.0); Prothrombin Time 11.3 sec (9.0-12.0)
[2021-11-10] MEDS: DEXTROSE 5% IN WATER 1,000 ML with SODIUM BICARB (1 MEQ/ML) 150 ML IV SCH (12:47)
[2021-11-10] MEDS ORDERED: PROPOFOL 10 MG/ML 20 ML VIAL IV ONE ×2 (12:48)
[2021-11-10 12:57] LABS: Basophils # (A) 0.1 k/uL (0-0.2); Basophils % (A) 0 %; Eosinophils % (A) 0 %; HGB 13.4 gm/dL (13.0-17.5); Hypochromasia Moderate; Lymphocytes # (A) 0.5 k/uL (1.0-4.8); Lymphocytes % (A) 2 %; MCHC 30.6 g/dL (31.0-37.0); Mean Platelet Volume 9.7; Monocytes # (A) 1.1 k/uL (0-1.0); Monocytes % (A) 4 %; Neutrophils # (A) 22.2 k/uL (1.3-7.7); Neutrophils % (A) 93 %; Platelet Count 209 k/uL (150-450); RBC 4.63 m/uL (4.30-5.90); RDW 15.5 % (11.5-15.5); WBC 23.8 k/uL (3.8-10.6)
[2021-11-10 13:09] LABS: ABG Base Excess -8.4 mmol/L; ABG HCO3 21 mmol/L (21-25); ABG Oxygen Saturation 97.9 % (94-97); ABG PCO2 66 mmHg (35-45); ABG PO2 109 mmHg (83-108); ABG TCO2 23 mmol/L (19-24)
[2021-11-10 13:11] LABS: ABG PH 7.12 (7.35-7.45); Allen Test Performed? no
[2021-11-10] MEDS: IPRATROPIUM-ALBUTEROL 3 ML NEB INHALATION SCH ×3 (13:13→20:18)
--- NOTE | 2021-11-10 13:13 | P.CNPUL ---
History of Present Illness Consult date: 11/10/21 Reason for consult: dyspnea History of present illness: This is a 51-year-old male patient came into the emergency department because of chest pain. Note that the patient was in [facility] for chest pain approximately week ago and the patient was given a cardiac evaluation which included a cardiac stress and that came back abnormal and following that the patient was given a cardiac catheterization that showed nonocclusive disease and no intervention was done. Yesterday, the patient came in to the emergency department as the patient was complaining of increased shortness of breath and chest pain. His chest x-ray showed some cardiomegaly and increased bilateral interstitial pulmonary infiltrates which also raises the concern for an underlying pneumonia. While in the emergency, the patient started having episodes of fever and he became more obtunded and short of breath. At that point, the patient was started on BiPAP for respiratory support. The patient was started on a BiPAP at a pressure of 14/5 cm water and FiO2 of 40%. The pH was at 7.17 with a pCO2 of 64 and pO2 of 83 and this was not an FiO2 of 50%. At a time of my arrival, the patient's breathing was still labored and the patient was quite lethargic and obtunded. He was able to generate an adequate tidal volume of 400 mL. Nevertheless, the patient was still having shortness of breath and her breathing was labored with a high minute ventilation and a high respiratory rate. The patient was already given a total of 2 L of IV fluid and the patient was given a combination of Rocephin and Zithromax covering for a pneumonia. The workup that has been done showed a white cell count of 23 with a hemoglobin of 13.7 and a platelet count of 219. Normal coagulation profile. Lactic acid level was at 4.1. Blood sugars were elevated at around 370. UA showed +2 glucose, +1 protein and +9 white cells. The coagulation profile was within normal limits. COVID 19 by PCR came back also negative. After being transferred to the intensive care unit, the patient was monitored very closely and subsequently was decided to LAD and intubated the patient put him on a mechanical ventilator. Note that the patient had a triple lumen catheter established in the emergency department. The patient was also started on low- dose norepinephrine running at 0.05 mg/kg per minute. He was started on bicarb infusion. Noted the patient is a chronic CO2 retainer patient has a relatively elevated serum bicarbonate level at baseline. Review of Systems ROS unobtainable: due to endotracheal tube, due to mental status Past Medical History Past Medical History: Blood Disorder, Diabetes Mellitus, Deep Vein Thrombosis (DVT), GERD/Reflux, Hyperlipidemia, Hypertension, Musculoskeletal Disorder, Osteoarthritis (OA), Sleep Apnea/CPAP/BIPAP Additional Past Medical History / Comment(s): IDDM type II, neuropathy bilateral feet with R foot worse, charcot foot R/L, currently sores L foot and is NWB, recent surgery R foot with boot an can wt bear as tolerated, gastroparesis, hiatal hernia, esophageal narrowing (scarring)/past dysphagia/has had dilations, factor V leiden, 2 DVT's L leg, another superficial blood clot L leg, chronic back pain/has pain pump, DDD and bulging discs, legally blind L eye since , migraines, PVD, fatty liver, MEL with trilogy machine. Last Myocardial Infarction Date:: 11/07/21 History of Any Multi-Drug Resistant Organisms: VRE Date of last positivie culture/infection: 07/01/21 MDRO Source:: VRE FOOT Past Surgical History: Tonsillectomy Additional Past Surgical History / Comment(s): R foot/ankle surgery at [facility] with bone removal/hardware inserted, I&D L foot, pain pump insertion, colonoscopy, EGDs with dilations, UVPPP, eye surgery as an infant. Past Anesthesia/Blood Transfusion Reactions: Family History of Problems w/ Anesthesia Additional Past Anesthesia/Blood Transfusion Reaction / Comment(s): STATES "MOTHER CRASHES" "passes out"-with anesthesia,"needs to have a braid cutter dose" Additional Psychological History / Comment(s): Pt resides with his spouse. He has a cane but has been using a walker more often lately. He has a medishoe on L foot which is nonwt bearing and a boot on r leg with which he can bear wt as tolerated. He cannot drive, his spouse drives. He has home care thru [facility]. He has glucometer and a trilogy vent machine. - Past Family History Father Family Medical History: Cancer Additional Family Medical History / Comment(s): BLADDER CANCER Mother Family Medical History: CVA/TIA, Diabetes Mellitus, Myocardial Infarction (DE) Medications and Allergies Home Medications Medication Instructions Recorded Confirmed Type RX: Latanoprost Ophth [Xalatan 1 drop BOTH EYES HS 01/23/14 11/10/21 History 0.005%] RX: Simvastatin [Zocor] 20 mg PO HS 01/23/14 11/10/21 History RX: Loratadine [Claritin] 10 mg PO DAILY 01/28/16 11/10/21 History RX: metFORMIN HCL [Glucophage] 1,000 mg PO BID 01/28/16 11/10/21 History Morphine Pain Pump 1 dose INTRATHECA CONTINUOUS 05/05/17 11/10/21 History RX: Ferrous Sulfate [Iron (65 MG 325 mg PO BID 10/25/20 11/10/21 History Elemental)] RX: Fluticasone Propionate 2 puff INHALATION RT-BID 10/25/20 11/10/21 History [Flovent Hfa 220 mcg] RX: Furosemide [Lasix] 40 mg PO DAILY 10/25/20 11/10/21 History RX: SUMAtriptan succinate [Imitrex] 50 mg PO DAILY PRN 10/25/20 11/10/21 History RX: INSULIN LISPRO (HumaLOG) See Protocol SQ ACHS 05/15/21 11/10/21 History [humaLOG] RX: Lubiprostone [Amitiza] 24 mcg PO BID 05/15/21 11/10/21 History RX: Potassium Chloride ER [K-Dur 10 meq PO DAILY 05/15/21 11/10/21 History 10] RX: Warfarin Sodium 10 mg PO HS 05/15/21 11/10/21 History RX: lisinopriL [Zestril] 2.5 mg PO DAILY 05/15/21 11/10/21 History RX: Acetaminophen Tab [Tylenol] 650 mg PO Q6HR PRN tab 07/04/21 11/10/21 Rx RX: HYDROcodone/APAP 10-325MG 1 tab PO BID #6 tab 07/04/21 11/10/21 Rx [[place] 10-325] RX: Pregabalin [Lyrica] 200 mg PO BID #6 cap 07/04/21 11/10/21 Rx Isosorbide Mononitrate ER [Imdur] 30 mg PO DAILY 11/10/21 11/10/21 History Ketoconazole 2% Cream [Nizoral 2%] 1 applic TOPICAL DAILY 11/10/21 11/10/21 History RX: Insulin Glargine,Hum.rec.anlog 50 unit SQ HS 11/10/21 11/10/21 History [Lantus Solostar Pen] RX: Omeprazole 20 mg PO BID 11/10/21 11/10/21 History Allergies Allergy/AdvReac Type Severity Reaction Status Date / Time adhesive Allergy Rash/Hives Verified 11/10/21 08:41 Physical Exam Vitals: Vital Signs Temp Pulse Resp BP Pulse Ox FiO2 11/10/21 10:12 112 H 19 115/45 94 L 11/10/21 09:16 99.2 F 113 H 20 117/54 94 L 11/10/21 08:44 99.6 F 98 18 111/51 94 L 11/10/21 08:10 100 21 115/53 93 L 11/10/21 08:03 96 11/10/21 08:02 40 11/10/21 08:00 99.8 F H 11/10/21 07:47 94 50 11/10/21 06:31 68 18 77/46 97 11/10/21 03:18 50 11/10/21 02:51 80 28 H 95/54 93 L 11/10/21 01:02 124 H 80 11/10/21 00:58 100 11/10/21 00:49 112 H 11/10/21 00:46 99.9 F H 125 H 32 H 133/74 98 Intake and Output 11/09/21 11/10/21 11/10/21 22:59 06:59 14:59 Intake Total 4.738 Balance 4.738 Intake: Intake, IV Titration 4.738 Amount Norepinephrine 32 mg In 4.738 Sodium Chloride 0.9% 218 ml @ 0.05 MCG/KG/MIN 3. 083 mls/hr IV .Q24H ONE Rx#:[id number] Other: Weight 131.542 kg 131.542 kg Patient is currently intubated on a mechanical ventilator, the patient is sedated with propofol and the patient is calm and comfortable, The patient is obese and the patient has a body mass index of 46. Head exam was generally normal. There was no scleral icterus or corneal arcus. Mucous membranes were moist. Neck was supple and without jugular venous distension, thyromegaly, or carotid bruits. Carotids were easily palpable bilaterally. There was no adenopathy. The patient has orogastric and orotracheal tube in place Lungs sounds are diminished bilaterally and the patient has scattered rhonchi heard throughout the lung garcia and the patient scattered crackles and wheezes. Cardiac exam revealed the PMI to be normally situated and sized. The rhythm was regular and no extrasystoles were noted during several minutes of auscultation. The first and second heart sounds were normal and physiologic splitting of the second heart sound was noted. There were no murmurs, rubs, clicks, or gallops. Abdominal exam revealed normal bowel sounds. The abdomen was soft, non-tender, and without masses, organomegaly, or appreciable enlargement of the abdominal aorta. Examination of the extremities revealed easily palpable radial, femoral and pedal pulses. There was no cyanosis, clubbing or edema. Examination of the skin revealed no evidence of significant rashes, suspicious appearing nevi or other concerning lesions. Neurologically the patient was quite obtunded prior to her intubation. Currently is on propofol. His neurologic exam was apparently nonfocal prior to the intubation process. Results - Laboratory Findings CBC and BMP: 11/10/21 11:59 11/10/21 01:59 ABG ABG pH 7.17 (7.35-7.45) L* 11/10/21 07:39 ABG pCO2 64 mmHg (35-45) H 11/10/21 07:39 ABG pO2 83 mmHg (83-108) 11/10/21 07:39 ABG O2 Saturation 94.6 % (94-97) 11/10/21 07:39 PT/INR, D-dimer PT 11.2 sec (9.0-12.0) 11/10/21 01:59 INR 1.0 (<1.2) 11/10/21 01:59 Abnormal lab findings: Abnormal Labs 11/10/21 11/10/21 11/10/21 01:59 02:00 02:21 WBC 12.9 H RDW 16.1 H Neutrophils # 11.6 H Lymphocytes # 0.5 L ABG pH ABG pCO2 ABG Total CO2 Sodium 133 L Potassium 5.3 H Carbon Dioxide 20 L BUN 38 H Creatinine 1.98 H Glucose 351 H POC Glucose (mg/dL) Plasma Lactic Acid Ger Magnesium 1.4 L Alkaline Phosphatase 140 H Lactate Dehydrogenase 770 H C-Reactive Protein 1.6 H Total Protein 6.2 L Urine Protein Urine Glucose (UA) Urine Blood Urine WBC Amorphous Sediment Urine Bacteria Hyaline Casts Urine Mucus 11/10/21 11/10/21 11/10/21 02:21 07:25 07:39 WBC RDW Neutrophils # Lymphocytes # ABG pH 7.17 L* ABG pCO2 64 H ABG Total CO2 26 H Sodium Potassium Carbon Dioxide BUN Creatinine Glucose POC Glucose (mg/dL) Plasma Lactic Acid Ger 3.1 H* 3.4 H* Magnesium Alkaline Phosphatase Lactate Dehydrogenase C-Reactive Protein Total Protein Urine Protein Urine Glucose (UA) Urine Blood Urine WBC Amorphous Sediment Urine Bacteria Hyaline Casts Urine Mucus 11/10/21 11/10/21 08:35 09:15 WBC RDW Neutrophils # Lymphocytes # ABG pH ABG pCO2 ABG Total CO2 Sodium Potassium Carbon Dioxide BUN Creatinine Glucose POC Glucose (mg/dL) 370 H Plasma Lactic Acid Egr Magnesium Alkaline Phosphatase Lactate Dehydrogenase C-Reactive Protein Total Protein Urine Protein 1+ H Urine Glucose (UA) 2+ H Urine Blood Trace H Urine WBC 9 H Amorphous Sediment Moderate H Urine Bacteria Rare H Hyaline Casts 36 H Urine Mucus Few H - Diagnostic Findings Chest x-ray: image reviewed Assessment and Plan Plan: Acute hypoxcix/hypercapneic respiratory failure, currently under investigation. This obviously the patient has a component of COPD exacerbation, and possibly pneumonia as the patient has an acute on top of chronic hypercapnic respiratory failure. No clear indication for decompensated heart failure. ProBNP level is at 176. The first set of troponins also negative. Note that the patient was quite obtunded and the patient was in significant respiratory acidosis and for that reason it was decided to LAD intubate the patient. He was started on BiPAP for several hours and he fell and he was accordingly intubated. Septic shock, Acute hypotension, on Levo 0.05 mcg/kg/min, the patient was given a total of 2 L of IV fluid in the emergency room the patient is being monitored closely in the intensive care unit. acute latic acidosis, 3.4 and a subsequent level came back at 4.1 NARENDRA, creatinine of 1.89 CAD and patient is post acute [facility] in [facility], currently under investigation. Morbid obesity, BMI 46.8-Weight loss measures and follow with PCP Diabetes mellitus type 2, chronically on insulin uncontrolled with hyperglycemia , the current blood sugars are quite elevated at 457 GERD Diabetic peripheral neuropathy Hyperlipidemia Essential hypertension Chronic pain syndrome. 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 Hepatic steatosis, nonalcoholic fatty liver disease Herniated disc in the lumbar spine Partial blindness of left eye Diabetic gastroparesis Anxiety depression On Cymbalta Chronic pain the patient has a morphine pump Previous COVID , 2020 Plan Keep the patient sedated with propofol Keep the patient intubated on mechanical ventilator. The patient is currently on assist control of 18 with a tidal volume of 400 and FiO2 of 100% with a PEEP of 5, pending further gases Bicar x2 and then 150 meq of bicarb infusion @ 150 IV Zithromax and Rocephine Procalcitonin Urine and blood cultures echocardiogram Cortisol to be checked US of the kidney to be checked Right IJ tripple lumen cath We'll insert a arterial line catheter ABG in the ICU Levemir 25 Units BID and a sliding scale, use insulin drip if unable to control her blood sugars IV Heparin COVID 19 was negative May need a bronchoscopy and the bronchioloalveolar lavage looking for an underlying pneumonia Condition is critical and discussed the case with the . We'll continue to follow make further recommendations based on progress. Time with Patient: Greater than 30
--- NOTE | 2021-11-10 13:14 | XR ---
EXAMINATION TYPE: XR chest 1V portable DATE OF EXAM: 11/10/2021 COMPARISON: 11/10/2021 HISTORY: Shortness of breath TECHNIQUE: Single frontal view of the chest is obtained. FINDINGS: A bilateral consolidation and small effusion. ET tube approximately 3 cm above emre. NG tube seen coursing the abdomen and central line seen overlying the right atrium. No sizable pneumotho rax. IMPRESSION: 1. Bilateral airspace disease stable. ET tube 3 cm above emre.
--- NOTE | 2021-11-10 13:23 | P.PCN ---
Date of Procedure: 11/10/21 Preoperative Diagnosis: Acute hypoxic/hypercapnic respiratory failure Postoperative Diagnosis: Acute hypoxic/hypercapnic respiratory failure Procedure(s) Performed: Intubation Anesthesia: local Surgeon: Rosy Veras Estimated Blood Loss (ml): 0 Pathology: other Condition: critical Disposition: ICU Operative Findings: Indication: Respiratory compromise. A time-out was completed verifying correct patient, procedure, site, positioning, and implant(s) or special equipment if applicable. The Glidoscope was used to intubate the patient The patient was positioned appropriately and a #8 endotracheal tube was placed under direct laryngoscopy. The tube was anchored at 22 cm at the teeth. Correct placement was confirmed by presence of bilateral breath sounds without air sounds in the abdomen on auscultation. An end-tidal CO2 monitor was also used to confirm tracheal placement of the ET tube. A chest x-ray was ordered to assess for pneumothorax and verify endotracheal tube placement. The patient tolerated the procedure well and there were no complications.
--- NOTE | 2021-11-10 13:34 | CA ---
Transthoracic Echo Report Name: Jose Lynne Age: 51 Gender: M : 1970 Exam Date: 11/10/2021 10:47 Exam Location: [place] [facility] Ht (in): 66 Wt (lb): 290 Ordering Physician: Tiffani Duke Attending/Referring Phys: [id number], Srikanth Chief Construction Inspector Maureen Casanova RDCS Procedure CPT: Indications: SHORTNESS OF BREATH Cardiac Hx: Technical Quality: Fair Contrast 1: Total Dose (mL): Contrast 2: Total Dose (mL): MEASUREMENTS (Male / Female) Normal Values 2D ECHO LV Diastolic Diameter PLAX 4.6 cm 4.2 - 5.9 / 3.9 - 5.3 cm LV Systolic Diameter PLAX 2.8 cm IVS Diastolic Thickness 1.3 cm 0.6 - 1.0 / 0.6 - 0.9 cm LVPW Diastolic Thickness 1.2 cm 0.6 - 1.0 / 0.6 - 0.9 cm LV Relative Wall Thickness 0.5 RV Internal Dim ED PLAX 3.5 cm LA Systolic Diameter LX 3.4 cm 3.0 - 4.0 / 2.7 - 3.8 cm LA Volume 58.7 cm??? 18 - 58 / 22 - 52 cm??? M-MODE Aortic Root Diameter MM 4.0 cm MV E Point Septal Separation 0.4 cm AV Cusp Separation MM 2.5 cm DOPPLER AV Peak Velocity 266.0 cm/s AV Peak Gradient 28.3 mmHg AV Mean Velocity 191.5 cm/s AV Mean Gradient 16.1 mmHg AV Velocity Time Integral 45.1 cm MV Area PHT 7.9 cm??? Mitral E Point Velocity 121.5 cm/s Mitral A Point Velocity 162.0 cm/s Mitral E to A Ratio 0.8 MV Deceleration Time 95.6 ms MV E' Velocity 10.6 cm/s Mitral E to MV E' Ratio 11.5 TR Peak Velocity 294.9 cm/s TR Peak Gradient 34.8 mmHg Right Ventricular Systolic Press 39.8 mmHg FINDINGS Left Ventricle Left ventricular ejection fraction is estimated at 65-70 %. Left ventricular cavity size normal. Mild concentric left ventricular hypertrophy. Right Ventricle Mild right ventricular dilatation. Mild pulmonary hypertension. Right Atrium Normal right atrial size. Left Atrium Mildly increased left atrial area. Mitral Valve Structurally normal mitral valve. No mitral stenosis, regurgitation or prolapse. Aortic Valve Focal thickening of the aortic valve cusps. There is a gradient on AOV , max 28, mean 16 Tricuspid Valve Mild tricuspid regurgitation. Pulmonic Valve Trace pulmonic regurgitation. Pericardium Normal pericardium. No pericardial effusion. Aorta Moderate aortic dilatation at the level of the sinuses of valsalva (root). CONCLUSIONS Normal left ventricular ejection fraction 65% Mild LVH Mild aortic stenosis Mild tricuspid regurgitation Aortic root dilation 4.0 cm Previewed by: Dr. Cristhian Salas DO (Electronically Signed) Final Date: 10 November 2021 13:33
[2021-11-10 14:02] LABS: Glucose,Whole Blood 469 mg/dL (70-110)
[2021-11-10] MEDS: INSULIN DETEMIR (LEVEMIR) 100 UNIT/ML SYR SQ SCH ×2 (14:02→21:13)
--- NOTE | 2021-11-10 14:21 | P.PCN ---
Date of Procedure: 11/10/21 Preoperative Diagnosis: acute hypoxic respiratory failure Postoperative Diagnosis: acute hypoxic respiratory failure Procedure(s) Performed: Insertion of a an arterial line Surgeon: Rosy Veras Estimated Blood Loss (ml): 0 Pathology: none sent Condition: critical Disposition: ICU Operative Findings: Indication: Hemodynamic monitoring. A time-out was completed verifying correct patient, procedure, site, positioning, and implant(s) or special equipment if applicable. Allens test was performed to ensure adequate perfusion. The patient right wrist was prepped and draped in sterile fashion. 1% Lidocaine was used to anesthetize the area. An 18G Arrow arterial line was introduced into the radial artery. The catheter was threaded over the guide wire and the needle was removed with appropriate pulsatile blood return. Blood loss was minimal. The catheter was then sutured in place to the skin and a sterile dressing applied. Perfusion to the extremity distal to the point of catheter insertion was checked and found to be adequate. The patient tolerated the procedure well and there were no complications.
[2021-11-10] MEDS: INSULIN ASPART (NovoLOG) 100 UNIT/ML VIAL SQ SCH ×4 (15:04→21:13)
--- NOTE | 2021-11-10 15:59 | P.HPIM ---
History of Present Illness H&P Date: 11/10/21 Chief Complaint: Short of breath Hospital course: This is a pleasant 51-year-old male , follows with Dr. Waggoner. patient has a right Charcot foot and also found to have osteomyelitis in October 2020. 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 Patient presented to ER with chest pain and shortness of breath. About a week ago patient was admitted [facility] hospital. Her chest pain. Had a cardiac stress test that was abnormal and a cardiac cath that showed nonocclusive disease and no intervention was done. Since presentation to the ER patient became progressively more short of breath. Becoming less responsive. Was put on a BiPAP. Patient being becoming labored. Patient was seen by Dr. Veras from critical care. He is coming back to intubate the patient. Patient rather lethargic not really able to give on the much of a history. Received antibiotics. In the ICU. Getting bicarbonate. Review of systems: Cannot be obtained as patient rather lethargic Past medical history to include: Bilateral Charcot foot, with left foot osteomyelitis with surgery in January 2021 + Blum, diabetes, GERD, peripheral neuropathy, hypertension, hyperlipidemia, factor DLXXX mutation on and coordination, diabetic gastroparesis, decreased vision in the left eye, depression, history of 2 DVTs, sleep apnea uses BiPAP machine environmental ALLERGIES, fatty liver, herniated disc in the lower back, pain pump implant, narrowing of esophagus 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 No history of alcohol or smoking. Family history: Bladder cancer Physical examination: VITAL SIGNS: 99.8, 114, 26, 117/54, on BiPAP GENERAL: Reclining in bed, short of breath lethargic EYES: Pupils equal. Conjunctiva normal. HEENT: External appearance of nose and ears normal, oral cavity grossly normal. NECK: JVD unable to assess; masses not palpable. HEART: First and second heart sounds are normal; mild edema. LUNGS: Respiratory rate increased; diminished breath sounds, some crackles ABDOMEN: Soft, nontender, liver spleen not palpable, no masses palpable. PSYCH: Lethargic MUSCULOSKELETAL:No Clubbing/cyanosis;muscles-grossly intact. Patient got fungal changes in the nails of the foot. Dry skin. Charcot foot. Left foot of the dressing. NEUROLOGICAL: [Cranial nerves grossly intact; no facial asymmetry, decreased sensation distally. More his limbs INVESTIGATIONS, reviewed in the clinical context: White count 12.9 hemoglobin 10.7 platelets 182 sodium 133 potassium 5.3 BUN 38 creatinine 1.98 Lactic acid 3.1 lesion 1.4 Troponin I less than 0.012 CRP 1.6 Chest x-ray film personally reviewed by me-scattered inflammatory EKG tracing personally reviewed by me-sinus tachycardia rate 124 Assessment and plan: -Bilateral pneumonia, possible aspiration causing hypoxia IV ceftriaxone, Zithromax -Acute hypoxic respiratory failure secondary to pneumonia BiPAP. Patient will require to be intubated -Chronic left plantar wound Consult ID -Bilateral foot Charcot foot from diabetes -Morbid obesity, BMI 46.8 Weight loss measures and follow with PCP -Diabetes mellitus type 2, chronically on insulin uncontrolled with hyperglycemia Follow Accu-Cheks. -GERD On Pepcid -Diabetic peripheral neuropathy On Lyrica -Hyperlipidemia Lipitor -Essential hypertension Follow blood pressure closely -Chronic pain syndrome. 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 On BiPAP. Will get intubated. Being followed by riddler operator. Cardiology. Consult ID for wound care. Follow Accu-Cheks. Follow INR. Critical. ICU. Past Medical History Past Medical History: Blood Disorder, Diabetes Mellitus, Deep Vein Thrombosis (DVT), GERD/Reflux, Hyperlipidemia, Hypertension, Musculoskeletal Disorder, Osteoarthritis (OA), Sleep Apnea/CPAP/BIPAP Additional Past Medical History / Comment(s): IDDM type II, neuropathy bilateral feet with R foot worse, charcot foot R/L, currently sores L foot and is NWB, recent surgery R foot with boot an can wt bear as tolerated, gastroparesis, hiatal hernia, esophageal narrowing (scarring)/past dysphagia/has had dilations, factor V leiden, 2 DVT's L leg, another superficial blood clot L leg, chronic back pain/has pain pump, DDD and bulging discs, legally blind L eye since , migraines, PVD, fatty liver, MEL with trilogy machine. Last Myocardial Infarction Date:: 11/07/21 History of Any Multi-Drug Resistant Organisms: VRE Date of last positivie culture/infection: 07/01/21 MDRO Source:: VRE FOOT Past Surgical History: Tonsillectomy Additional Past Surgical History / Comment(s): R foot/ankle surgery at [facility] with bone removal/hardware inserted, I&D L foot, pain pump insertion, colonoscopy, EGDs with dilations, UVPPP, eye surgery as an . Past Anesthesia/Blood Transfusion Reactions: Family History of Problems w/ Anesthesia Additional Past Anesthesia/Blood Transfusion Reaction / Comment(s): STATES "M OTHER CRASHES" "passes out"-with anesthesia,"needs to have a senior etl developer dose" Additional Psychological History / Comment(s): Pt resides with his spouse. He has a cane but has been using a walker more often lately. He has a medishoe on L foot which is nonwt bearing and a boot on r leg with which he can bear wt as tolerated. He cannot drive, his spouse drives. He has home care thru [facility]. He has glucometer and a trilogy vent machine. - Past Family History Father Family Medical History: Cancer Additional Family Medical History / Comment(s): BLADDER CANCER Mother Family Medical History: CVA/TIA, Diabetes Mellitus, Myocardial Infarction (NM) Medications and Allergies Home Medications Medication Instructions Recorded Confirmed Type Latanoprost Ophth [Xalatan 0.005%] 1 drop BOTH EYES HS 01/23/14 11/10/21 History Simvastatin [Zocor] 20 mg PO HS 01/23/14 11/10/21 History Loratadine [Claritin] 10 mg PO DAILY 01/28/16 11/10/21 History metFORMIN HCL [Glucophage] 1,000 mg PO BID 01/28/16 11/10/21 History Morphine Pain Pump 1 dose INTRATHECA CONTINUOUS 05/05/17 11/10/21 History Ferrous Sulfate [Iron (65 MG 325 mg PO BID 10/25/20 11/10/21 History Elemental)] Fluticasone Propionate [Flovent 2 puff INHALATION RT-BID 10/25/20 11/10/21 History Hfa 220 mcg] Furosemide [Lasix] 40 mg PO DAILY 10/25/20 11/10/21 History SUMAtriptan succinate [Imitrex] 50 mg PO DAILY PRN 10/25/20 11/10/21 History INSULIN LISPRO (HumaLOG) [humaLOG] See Protocol SQ ACHS 05/15/21 11/10/21 History Lubiprostone [Amitiza] 24 mcg PO BID 05/15/21 11/10/21 History Potassium Chloride ER [K-Dur 10] 10 meq PO DAILY 05/15/21 11/10/21 History Warfarin Sodium 10 mg PO HS 05/15/21 11/10/21 History lisinopriL [Zestril] 2.5 mg PO DAILY 05/15/21 11/10/21 History Acetaminophen Tab [Tylenol] 650 mg PO Q6HR PRN tab 07/04/21 11/10/21 Rx HYDROcodone/APAP 10-325MG [[place] 1 tab PO BID #6 tab 07/04/21 11/10/21 Rx 10-325] Pregabalin [Lyrica] 200 mg PO BID #6 cap 07/04/21 11/10/21 Rx Insulin Glargine,Hum.rec.anlog 50 unit SQ HS 11/10/21 11/10/21 History [Lantus Solostar Pen] Isosorbide Mononitrate ER [Imdur] 30 mg PO DAILY 11/10/21 11/10/21 History Ketoconazole 2% Cream [Nizoral 2%] 1 applic TOPICAL DAILY 11/10/21 11/10/21 History Omeprazole 20 mg PO BID 11/10/21 11/10/21 History Allergies Allergy/AdvReac Type Severity Reaction Status Date / Time adhesive Allergy Rash/Hives Verified 11/10/21 08:41 Physical Exam Vitals: Vital Signs Temp Pulse Resp BP Pulse Ox FiO2 11/10/21 10:12 112 H 19 115/45 94 L 11/10/21 09:16 99.2 F 113 H 20 117/54 94 L 11/10/21 08:44 99.6 F 98 18 111/51 94 L 11/10/21 08:10 100 21 115/53 93 L 11/10/21 08:03 96 11/10/21 08:02 40 11/10/21 08:00 99.8 F H 11/10/21 07:47 94 50 11/10/21 06:31 68 18 77/46 97 11/10/21 03:18 50 11/10/21 02:51 80 28 H 95/54 93 L 11/10/21 01:02 124 H 80 11/10/21 00:58 100 11/10/21 00:49 112 H 11/10/21 00:46 99.9 F H 125 H 32 H 133/74 98 Intake and Output 11/09/21 11/10/21 11/10/21 22:59 06:59 14:59 Intake Total 4.738 Balance 4.738 Intake: Intake, IV Titration 4.738 Amount Norepinephrine 32 mg In 4.738 Sodium Chloride 0.9% 218 ml @ 0.05 MCG/KG/MIN 3. 083 mls/hr IV .Q24H ONE Rx#:[id number] Other: Weight 131.542 kg 131.542 kg Results CBC & Chem 7: 11/10/21 11:59 11/10/21 01:59 Labs: Abnormal Lab Results - Last 24 Hours (Table) 11/10/21 11/10/21 11/10/21 Range/Units 01:59 02:00 02:21 WBC 12.9 H (3.8-10.6) k/uL RDW 16.1 H (11.5-15.5) % Neutrophils # 11.6 H (1.3-7.7) k/uL Lymphocytes # 0.5 L (1.0-4.8) k/uL ABG pH (7.35-7.45) ABG pCO2 (35-45) mmHg ABG Total CO2 (19-24) mmol/L Sodium 133 L (137-145) mmol/L Potassium 5.3 H (3.5-5.1) mmol/L Carbon Dioxide 20 L (22-30) mmol/L BUN 38 H (9-20) mg/dL Creatinine 1.98 H (0.66-1.25) mg/dL Glucose 351 H (74-99) mg/dL POC Glucose (mg/dL) (70-110) mg/dL Plasma Lactic Acid Ger (0.7-2.0) mmol/L Magnesium 1.4 L (1.6-2.3) mg/dL Alkaline Phosphatase 140 H (38-126) U/L Lactate Dehydrogenase 770 H (313-618) U/L C-Reactive Protein 1.6 H (<1.0) mg/dL Total Protein 6.2 L (6.3-8.2) g/dL Urine Protein (Negative) Urine Glucose (UA) (Negative) Urine Blood (Negative) Urine WBC (0-5) /hpf Amorphous Sediment (None) /hpf Urine Bacteria (None) /hpf Hyaline Casts (0-2) /lpf Urine Mucus (None) /hpf 11/10/21 11/10/21 11/10/21 Range/Units 02:21 07:25 07:39 WBC (3.8-10.6) k/uL RDW (11.5-15.5) % Neutrophils # (1.3-7.7) k/uL Lymphocytes # (1.0-4.8) k/uL ABG pH 7.17 L* (7.35-7.45) ABG pCO2 64 H (35-45) mmHg ABG Total CO2 26 H (19-24) mmol/L Sodium (137-145) mmol/L Potassium (3.5-5.1) mmol/L Carbon Dioxide (22-30) mmol/L BUN (9-20) mg/dL Creatinine (0.66-1.25) mg/dL Glucose (74-99) mg/dL POC Glucose (mg/dL) (70-110) mg/dL Plasma Lactic Acid Ger 3.1 H* 3.4 H* (0.7-2.0) mmol/L Magnesium (1.6-2.3) mg/dL Alkaline Phosphatase (38-126) U/L Lactate Dehydrogenase (313-618) U/L C-Reactive Protein (<1.0) mg/dL Total Protein (6.3-8.2) g/dL Urine Protein (Negative) Urine Glucose (UA) (Negative) Urine Blood (Negative) Urine WBC (0-5) /hpf Amorphous Sediment (None) /hpf Urine Bacteria (None) /hpf Hyaline Casts (0-2) /lpf Urine Mucus (None) /hpf 11/10/21 11/10/21 Range/Units 08:35 09:15 WBC (3.8-10.6) k/uL RDW (11.5-15.5) % Neutrophils # (1.3-7.7) k/uL Lymphocytes # (1.0-4.8) k/uL ABG pH (7.35-7.45) ABG pCO2 (35-45) mmHg ABG Total CO2 (19-24) mmol/L Sodium (137-145) mmol/L Potassium (3.5-5.1) mmol/L Carbon Dioxide (22-30) mmol/L BUN (9-20) mg/dL Creatinine (0.66-1.25) mg/dL Glucose (74-99) mg/dL POC Glucose (mg/dL) 370 H (70-110) mg/dL Plasma Lactic Acid Ger (0.7-2.0) mmol/L Magnesium (1.6-2.3) mg/dL Alkaline Phosphatase (38-126) U/L Lactate Dehydrogenase (313-618) U/L C-Reactive Protein (<1.0) mg/dL Total Protein (6.3-8.2) g/dL Urine Protein 1+ H (Negative) Urine Glucose (UA) 2+ H (Negative) Urine Blood Trace H (Negative) Urine WBC 9 H (0-5) /hpf Amorphous Sediment Moderate H (None) /hpf Urine Bacteria Rare H (None) /hpf Hyaline Casts 36 H (0-2) /lpf Urine Mucus Few H (None) /hpf Thrombosis Risk Factor Assmnt - Choose All That Apply Any of the Below Risk Factors Present?: Yes Each Factor Represents 1 point: Age 41-60 years, Medical pt on bed rest, Obesity (BMI >25), Swollen legs (current) Other Risk Factors: Yes Each Risk Factor Represents 2 Points: Patient confined to bed Each Risk Factor Represents 3 Points: Positive Factor V Leiden, History of DVT/PE Thrombosis Risk Factor Assessment Total Risk Factor Score: 12 Thrombosis Risk Factor Assessment Level: High Risk
[2021-11-10 17:09] LABS: Magnesium 1.7 mg/dL (1.6-2.3); Potassium 4.9 mmol/L (3.5-5.1)
[2021-11-10 17:34] LABS: Glucose,Whole Blood 465 mg/dL (70-110)
[2021-11-10] MEDS: MAGNESIUM SULFATE-D5W PMX 1 GM in DEXTROSE/WATER 1 100ML.BAG IVPB SCH ×2 (18:33→20:20)
[2021-11-10 20:22] LABS: Glucose,Whole Blood 412 mg/dL (70-110)
[2021-11-10] MEDS ORDERED: VANCOMYCIN IV PER PHARMACY 1 EACH MISC MISCELLANE PRN (20:47)
[2021-11-10] MEDS ORDERED: ACETAMINOPHEN TAB 325 MG TAB PO PRN (20:51)
[2021-11-10] MEDS ORDERED: INSULIN DETEMIR (LEVEMIR) 100 UNIT/ML SYR SQ SCH (21:00)
[2021-11-10] MEDS: CHLORHEXIDINE GLUCONATE 15 ML CUP MUCOUS MEM SCH (21:17)
[2021-11-10] MEDS ORDERED: VANCOMYCIN 2,500 MG in SODIUM CHLORIDE 0.9% 500 ML 500 ML IVPB SCH (22:00)
[2021-11-10 22:05] LABS: Glucose,Whole Blood 386 mg/dL (70-110)
[2021-11-10] MEDS: LEVOFLOXACIN 250MG-D5W PMX 250 MG in DEXTROSE/WATER 1 50ML.BAG IVPB SCH (22:09)
[2021-11-10] MEDS: INSULIN REGULAR 100 UNIT in SODIUM CHLORIDE 0.9% 100 ML IV SCH (22:13)
[2021-11-10 22:34] LABS: Glucose,Whole Blood 395 mg/dL (70-110)
[2021-11-10 23:04] LABS: Glucose,Whole Blood 372 mg/dL (70-110)
[2021-11-10] MEDS: PIPERACILLIN-TAZOBACTAM 3.375 GM in SODIUM CHLORIDE 0.9% 100 ML IVPB SCH (23:41)
[2021-11-10 23:58] LABS: Glucose,Whole Blood 308 mg/dL (70-110)
[2021-11-11] MEDS: DEXTROSE 5% IN WATER 1,000 ML with SODIUM BICARB (1 MEQ/ML) 150 ML IV SCH (00:43)
[2021-11-11 00:54] LABS: Glucose,Whole Blood 268 mg/dL (70-110)
[2021-11-11 02:08] LABS: Glucose,Whole Blood 254 mg/dL (70-110)
[2021-11-11 03:03] LABS: Glucose,Whole Blood 216 mg/dL (70-110)
[2021-11-11 04:00] LABS: Glucose,Whole Blood 223 mg/dL (70-110)
[2021-11-11 04:25] LABS: Anisocytosis Slight; Basophils # (A) 0.1 k/uL (0-0.2); Basophils % (A) 0 %; Eosinophils # (A) 0.3 k/uL (0-0.7); Eosinophils % (A) 1 %; HCT 40.1 % (39.0-53.0); HGB 13.7 gm/dL (13.0-17.5); Lymphocytes # (A) 0.8 k/uL (1.0-4.8); Lymphocytes % (A) 4 %; MCH 30.2 pg (25.0-35.0); MCHC 34.3 g/dL (31.0-37.0); Monocytes # (A) 1.2 k/uL (0-1.0); Monocytes % (A) 6 %; Neutrophils # (A) 19.1 k/uL (1.3-7.7); Neutrophils % (A) 88 %; Platelet Count 178 k/uL (150-450); RBC 4.55 m/uL (4.30-5.90); RDW 16.1 % (11.5-15.5); WBC 21.7 k/uL (3.8-10.6)
[2021-11-11 04:26] LABS: MCV 88.2 fL (80.0-100.0)
[2021-11-11 04:58] LABS: Glucose,Whole Blood 204 mg/dL (70-110)
[2021-11-11 05:04] LABS: Albumin 2.9 g/dL (3.5-5.0); Calcium 8.2 mg/dL (8.4-10.2); Magnesium 2.3 mg/dL (1.6-2.3); Phosphorus 3.1 mg/dL (2.5-4.5); Potassium 4.2 mmol/L (3.5-5.1); Total Bilirubin 0.4 mg/dL (0.2-1.3); Total Protein 5.4 g/dL (6.3-8.2)
[2021-11-11 06:06] LABS: Glucose,Whole Blood 213 mg/dL (70-110)
[2021-11-11 06:08] LABS: ABG Base Excess 6.2 mmol/L; ABG HCO3 31 mmol/L (21-25); ABG Oxygen Saturation 98.3 % (94-97); ABG PCO2 53 mmHg (35-45); ABG PH 7.38 (7.35-7.45); ABG PO2 101 mmHg (83-108); ABG TCO2 33 mmol/L (19-24); Allen Test Performed? Yes
[2021-11-11 06:28] LABS: INR 1.4 (<1.2); Partial Thromboplastin Time 37.9 sec (22.0-30.0); Prothrombin Time 14.1 sec (9.0-12.0)
[2021-11-11 07:01] LABS: Glucose,Whole Blood 200 mg/dL (70-110)
[2021-11-11] MEDS: IPRATROPIUM-ALBUTEROL 3 ML NEB INHALATION SCH ×4 (07:38→19:35)
[2021-11-11] MEDS: NOREPINEPHRINE 32 MG in SODIUM CHLORIDE 0.9% 218 ML IV ONE ×4 (07:52→11:11)
[2021-11-11 08:03] LABS: Glucose,Whole Blood 199 mg/dL (70-110)
[2021-11-11] MEDS: PIPERACILLIN-TAZOBACTAM 3.375 GM in SODIUM CHLORIDE 0.9% 100 ML IVPB SCH ×2 (08:06→17:13)
[2021-11-11] MEDS: PANTOPRAZOLE 40 MG/10 ML VIAL IV SCH (08:11)
[2021-11-11] MEDS: CHLORHEXIDINE GLUCONATE 15 ML CUP MUCOUS MEM SCH ×2 (08:11→21:11)
--- NOTE | 2021-11-11 08:15 | XR ---
EXAMINATION TYPE: XR chest 1V portable DATE OF EXAM: 11/11/2021 COMPARISON: Chest x-ray 11/10/2021 HISTORY: Intubated TECHNIQUE: Single frontal view of the chest is obtained. FINDINGS: Endotracheal tube and NG tube are overlying appropriate positions as on prior exam. Right jugular central venous catheter is also present with the tip overlying the right atrium, stable. Card iac mediastinal silhouette is unchanged. Interstitium is increased. Central vascularity is prominent. No evident pneumothorax. Bibasilar increased attenuation is noted. Aorta margin is indistinct, there is patchy increased density as on prior exam. Overlying leads are present. Bones are stable. IMPRESSION: Correlate for possible congestive heart failure, interstitial edema, pneumonia is not ex cluded, follow-up recommended
[2021-11-11] MEDS ORDERED: AZITHROMYCIN 500 MG in SODIUM CHLORIDE 0.9% 250 ML IVPB SCH (09:00)
[2021-11-11] MEDS: INSULIN REGULAR 100 UNIT in SODIUM CHLORIDE 0.9% 100 ML IV SCH (09:00)
[2021-11-11 09:06] LABS: Glucose,Whole Blood 209 mg/dL (70-110)
[2021-11-11] MEDS: SODIUM CHLORIDE 0.9% 1,000 ML IV SCH ×2 (09:32→23:08)
[2021-11-11 10:02] LABS: Glucose,Whole Blood 174 mg/dL (70-110)
[2021-11-11] MEDS: HEPARIN SOD,PORK IN 0.45% NACL 25,000 UNIT in 0.45% NACL 1 250ML.BAG IV SCH (10:08)
--- NOTE | 2021-11-11 10:09 | P.CRDCN ---
History of Present Illness Consult date: 11/11/21 Reason for Consult (text): Elevated troponin History of present illness: The patient is a 51-year-old male who is currently admitted to the hospital with worsening shortness of breath. The patient developed acute hypoxic respiratory failure and was subsequently intubated within the last 24 hours. Initial checks x-ray showed bilateral pneumonia. Cardiology was consult for congestive heart failure, however BNP was not elevated. Recent echocardiogram revealed LV function at 65% and without significant valvular abnormalities. Records reviewed from a recent admission at [facility], which showed abnormal stress testing with small anterior ischemia. Nursing staff reports that he underwent coronary angiogram, however these are records are not available. GENERAL: Ill-appearing, well-nourished and in no acute distress. Currently s edated on ventilator. NECK: Supple without JVD or thyromegaly. LUNGS: Breath sounds rhonchorous to auscultation bilaterally. Respiration equal and unlabored. Intubated. HEART: Regular rate and rhythm without murmurs, rubs or gallops. S1 and S2 heard. EXTREMITIES: Normal range of motion, no edema. No clubbing or cyanosis. Peripheral pulses intact and strong. VITALS: Blood pressure 126/56, SpO2 96% on 50% FiO2, heart rate 69, febrile at 100.4 Fahrenheit TELEMETRY: Sinus tachycardia, which improved with intubation. Heart rate currently 65 on monitor LABS: WBC 21.7, hemoglobin 13.7, hematocrit 40.1, platelet 170, sodium 139, potassium 4.2, BUN 38, creatinine 1.54, lactic acid 2.2, 1.3, AST 31, ALT 27, ALP 155 IMPRESSION: Acute hypoxic respiratory failure, secondary to pneumonia Septicemia with leukocytosis Recent abnormal stress test at [facility], no records of follow-up angiogram History of hypertension History diabetes History of dyslipidemia History of factor V Leiden History of DVT PLAN: Continue heparin until records reviewed from [facility] Long-term anticoagulation per primary team with history of DVT and factor V 5 Leiden Further recommendations will be based upon clinical course I am dictating on behalf of Dr Mike Jasso's history/physical and assessment/ plan. Past Medical History Past Medical History: Blood Disorder, Diabetes Mellitus, Deep Vein Thrombosis (DVT), GERD/Reflux, Hyperlipidemia, Hypertension, Musculoskeletal Disorder, Osteoarthritis (OA), Sleep Apnea/CPAP/BIPAP Additional Past Medical History / Comment(s): IDDM type II, neuropathy bilateral feet with R foot worse, charcot foot R/L, currently sores L foot and is NWB, recent surgery R foot with boot an can wt bear as tolerated, gastroparesis, hiatal hernia, esophageal narrowing (scarring)/past dysphagia/has had dilations, factor V leiden, 2 DVT's L leg, another superficial blood clot L leg, chronic back pain/has pain pump, DDD and bulging discs, legally blind L eye since , migraines, PVD, fatty liver, MEL with trilogy machine. Last Myocardial Infarction Date:: 11/07/21 History of Any Multi-Drug Resistant Organisms: VRE Date of last positivie culture/infection: 07/01/21 MDRO Source:: VRE FOOT Past Surgical History: Tonsillectomy Additional Past Surgical History / Comment(s): R foot/ankle surgery at [facility] with bone removal/hardware inserted, I&D L foot, pain pump insertion, colonoscopy, EGDs with dilations, UVPPP, eye surgery as an infant. Past Anesthesia/Blood Transfusion Reactions: Family History of Problems w/ Anesthesia Additional Past Anesthesia/Blood Transfusion Reaction / Comment(s): STATES "MOTHER CRASHES" "passes out"-with anesthesia,"needs to have a rail assembler dose" Additional Psychological History / Comment(s): Pt resides with his spouse. He has a cane but has been using a walker more often lately. He has a medishoe on L foot which is nonwt bearing and a boot on r leg with which he can bear wt as tolerated. He cannot drive, his spouse drives. He has home care thru [facility]. He has glucometer and a trilogy vent machine. - Past Family History Father Family Medical History: Cancer Additional Family Medical History / Comment(s): BLADDER CANCER Mother Family Medical History: CVA/TIA, Diabetes Mellitus, Myocardial Infarction (ID) Medications and Allergies Home Medications Medication Instructions Recorded Confirmed Type Latanoprost Ophth [Xalatan 0.005%] 1 drop BOTH EYES HS 01/23/14 11/10/21 History Simvastatin [Zocor] 20 mg PO HS 01/23/14 11/10/21 History Loratadine [Claritin] 10 mg PO DAILY 01/28/16 11/10/21 History metFORMIN HCL [Glucophage] 1,000 mg PO BID 01/28/16 11/10/21 History Morphine Pain Pump 1 dose INTRATHECA CONTINUOUS 05/05/17 11/10/21 History Ferrous Sulfate [Iron (65 MG 325 mg PO BID 10/25/20 11/10/21 History Elemental)] Fluticasone Propionate [Flovent 2 puff INHALATION RT-BID 10/25/20 11/10/21 History Hfa 220 mcg] Furosemide [Lasix] 40 mg PO DAILY 10/25/20 11/10/21 History SUMAtriptan succinate [Imitrex] 50 mg PO DAILY PRN 10/25/20 11/10/21 History INSULIN LISPRO (HumaLOG) [humaLOG] See Protocol SQ ACHS 05/15/21 11/10/21 Histo ry Lubiprostone [Amitiza] 24 mcg PO BID 05/15/21 11/10/21 History Potassium Chloride ER [K-Dur 10] 10 meq PO DAILY 05/15/21 11/10/21 History Warfarin Sodium 10 mg PO HS 05/15/21 11/10/21 History lisinopriL [Zestril] 2.5 mg PO DAILY 05/15/21 11/10/21 History Acetaminophen Tab [Tylenol] 650 mg PO Q6HR PRN tab 07/04/21 11/10/21 Rx HYDROcodone/APAP 10-325MG [[place] 1 tab PO BID #6 tab 07/04/21 11/10/21 Rx 10-325] Pregabalin [Lyrica] 200 mg PO BID #6 cap 07/04/21 11/10/21 Rx Insulin Glargine,Hum.rec.anlog 50 unit SQ HS 11/10/21 11/10/21 History [Lantus Solostar Pen] Isosorbide Mononitrate ER [Imdur] 30 mg PO DAILY 11/10/21 11/10/21 History Ketoconazole 2% Cream [Nizoral 2%] 1 applic TOPICAL DAILY 11/10/21 11/10/21 History Omeprazole 20 mg PO BID 11/10/21 11/10/21 History Allergies Allergy/AdvReac Type Severity Reaction Status Date / Time adhesive Allergy Rash/Hives Verified 11/10/21 08:41 Physical Exam Vitals: Vital Signs Temp Pulse Resp BP Pulse Ox FiO2 11/11/21 08:00 100.4 F H 69 14 96 50 11/11/21 07:48 66 11/11/21 07:38 66 11/11/21 07:35 50 11/11/21 07:00 67 20 97 50 11/11/21 06:45 70 20 97 11/11/21 06:30 68 23 96 11/11/21 06:15 67 18 97 50 11/11/21 06:00 66 20 98 50 11/11/21 05:45 68 21 97 11/11/21 05:30 68 23 98 11/11/21 05:15 68 23 98 11/11/21 05:00 69 23 98 60 11/11/21 04:45 70 22 98 11/11/21 04:30 68 23 97 11/11/21 04:15 69 28 H 98 11/11/21 04:14 60 11/11/21 04:00 100.4 F H 69 23 97 60 11/11/21 03:45 69 20 97 11/11/21 03:30 69 27 H 97 11/11/21 03:15 70 24 97 11/11/21 03:00 70 26 H 97 60 11/11/21 02:45 69 22 97 11/11/21 02:30 71 25 H 97 11/11/21 02:15 71 22 97 11/11/21 02:00 70 24 97 60 11/11/21 01:45 71 23 96 11/11/21 01:30 71 30 H 97 11/11/21 01:15 71 17 98 11/11/21 01:00 71 27 H 98 11/11/21 00:45 72 22 97 11/11/21 00:41 60 11/11/21 00:30 70 19 97 11/11/21 00:15 70 18 98 11/11/21 00:00 100.8 F H 73 18 98 60 11/10/21 23:45 73 18 98 11/10/21 23:30 73 18 98 11/10/21 23:15 72 18 98 11/10/21 23:00 72 29 H 98 60 11/10/21 22:45 73 18 98 60 11/10/21 22:30 73 17 97 07/18/22 22:15 72 22 97 07/18/22 22:00 71 18 98 60 0718/22 21:45 69 16 97 0718/22 21:30 72 15 96 18/22 21:15 72 18 97 0718/22 21:00 71 18 97 60 18/22 20:45 72 18 98 0718/22 20:36 71 1822 20:30 71 18 99 0718/22 20:20 72 1822 20:15 73 16 97 0718/22 20:09 60 1822 20:00 100.9 F H 71 19 98 60 18/22 19:45 72 18 98 0718/22 19:30 75 27 H 98 1822 19:15 73 20 99 071822 19:00 73 15 115/55 99 11/10/21 18:00 73 18 108/56 98 80 18/22 17:15 71 16 98 80 18/22 17:00 71 17 98 80 1822 16:45 70 20 105/52 98 80 18/22 16:30 71 16 107/52 98 80 18/22 16:15 71 16 109/50 98 80 18/22 16:00 100.1 F H 72 18 107/50 98 80 1822 15:55 80 1822 15:45 73 15 116/56 98 18/22 15:30 70 18 122/50 98 18/22 15:15 69 15 103/50 98 18/22 15:00 71 15 119/57 99 18/22 14:45 71 15 120/53 98 18/22 14:39 100 18/22 14:30 73 15 119/54 99 18/22 14:15 76 14 99 18/22 14:00 82 16 99 18/22 13:45 87 15 98 100 18/22 13:30 102 H 15 95 100 18/22 13:15 110 H 16 88/42 95 100 0718/22 13:00 112 H 28 H 121/62 96 100 0718/22 12:55 100 18/22 12:45 111 H 28 H 115/57 95 100 07/18/22 12:34 100 11/10/21 12:30 99.0 F 110 H 18 159/69 98 100 11/10/21 12:15 109 H 24 132/53 91 L 11/10/21 12:00 112 H 12 116/68 87 L 11/10/21 11:45 108 H 20 92 L 11/10/21 11:30 50 H 94 L 11/10/21 11:29 40 11/10/21 11:24 113 H 22 94 L 11/10/21 11:00 117 H 17 92 L 11/10/21 10:45 106 H 24 95 11/10/21 10:30 115 H 21 95 11/10/21 10:15 116 H 19 91 L 11/10/21 10:12 112 H 19 115/45 94 L 11/10/21 10:00 116 H 20 93 L Intake and Output 11/10/21 11/11/21 11/11/21 22:59 06:59 14:59 Intake Total 5148.360 5523.296 645.515 Output Total 1635 2560 480 Balance -528.299 -1257.704 165.515 Intake: IV 800 800 300 Dextrose 5% in Water 1, 800 800 200 000 ml @ 100 mls/hr IV . [id number] ROBERTA with Sodium Bicarb (1 Meq/ml) 150 ml Rx#:[id number] Levofloxacin 250Mg-D5w 0 Pmx 250 mg In Dextrose/ Water 1 50ml.bag @ 50 mls /hr IVPB HS [facility] Rx#: [id number] Piperacillin-Tazobactam 3 100 .375 gm In Sodium Chloride 0.9% 100 ml @ 25 mls/hr IVPB Q8HR [facility] Rx# :[id number] Vancomycin 2,500 mg In 0 Sodium Chloride 0.9% 500 ml 500 ml @ 167 mls/hr IVPB Q24HR@1800 [facility] Rx#: [id number] Intake, IV Titration 306.701 502.296 345.515 Amount Heparin Sod,Pork in 0.45% 188.588 NaCl 25,000 unit In 0.45 % NaCl 1 250ml.bag @ 7. 602 UNITS/KG/HR 10 mls/hr IV .Q24H [facility] Rx#: [id number] Insulin Regular 100 unit 66.407 15.756 In Sodium Chloride 0.9% 100 ml @ Per Protocol IV .Q0M [facility] Rx#:[id number] Norepinephrine 32 mg In 3.494 135.706 Sodium Chloride 0.9% 218 ml @ 0.05 MCG/KG/MIN 3. 083 mls/hr IV .Q24H [facility] Rx#:[id number] propofoL 1,000 mg In 303.207 247.301 194.053 Empty Bag 1 bag @ 20 MCG/ KG/MIN 15.785 mls/hr IV . Q6H21M [facility] Rx#:[id number] Output: Urine 1635 2560 480 Other: Voiding Method Indwelling Catheter Indwelling Catheter Weight 131 kg ABP, PAP, CO, CI - Last 8 Hours Arterial Blood Pressure 126/56 Arterial Blood Pressure 135/58 Arterial Blood Pressure 138/61 Arterial Blood Pressure 134/59 Arterial Blood Pressure 138/58 Arterial Blood Pressure 131/57 Arterial Blood Pressure 129/59 Arterial Blood Pressure 140/61 Arterial Blood Pressure 139/61 Arterial Blood Pressure 134/61 Arterial Blood Pressure 139/61 Arterial Blood Pressure 138/60 Arterial Blood Pressure 136/60 Arterial Blood Pressure 123/55 Arterial Blood Pressure 139/61 Arterial Blood Pressure 133/58 Arterial Blood Pressure 132/59 Arterial Blood Pressure 149/62 Arterial Blood Pressure 145/62 Arterial Blood Pressure 133/58 Arterial Blood Pressure 130/58 Results 11/11/21 04:00 11/11/21 04:00 Cardiac Enzymes 11/11/21 Range/Units 04:00 AST 31 (17-59) U/L Coagulation 11/10/21 11/10/21 11/11/21 Range/Units 11:50 18:20 06:05 PT 11.3 14.1 H (9.0-12.0) sec APTT 26.6 44.2 H 37.9 H (22.0-30.0) sec CBC 11/10/21 11/11/21 Range/Units 11:59 04:00 WBC 23.8 H 21.7 H (3.8-10.6) k/uL RBC 4.63 4.55 (4.30-5.90) m/uL Hgb 13.4 13.7 (13.0-17.5) gm/dL Hct 44.0 40.1 (39.0-53.0) % Plt Count 209 178 (150-450) k/uL Comprehensive Metabolic Panel 11/10/21 11/11/21 Range/Units 16:11 04:00 Sodium 139 (137-145) mmol/L Potassium 4.9 4.2 (3.5-5.1) mmol/L Chloride 103 (98-107) mmol/L Carbon Dioxide 32 H (22-30) mmol/L BUN 38 H (9-20) mg/dL Creatinine 1.54 H (0.66-1.25) mg/dL Glucose 217 H (74-99) mg/dL Calcium 8.2 L (8.4-10.2) mg/dL AST 31 (17-59) U/L ALT 27 (4-49) U/L Alkaline Phosphatase 155 H (38-126) U/L Total Protein 5.4 L (6.3-8.2) g/dL Albumin 2.9 L (3.5-5.0) g/dL Current Medications Generic Name Dose Route Start Last Admin Trade Name Freq PRN Reason Stop Dose Admin Acetaminophen 650 mg 11/10/21 20:51 Acetaminophen Tab 325 Mg Tab PO Q6HR PRN Fever and/ or Pain Albuterol Sulfate 5 mg 11/10/21 04:56 11/10/21 07:39 Albuterol Nebulized 2.5 Mg/3 Ml INHALATION 5 mg RT-Q4H PRN Administration Shortness Of Breath Or Wheezing Albuterol/Ipratropium 3 ml 11/10/21 12:00 11/11/21 07:38 Ipratropium-Albuterol 3 Ml Neb INHALATION 3 ml RT-QID ROBERTA Administration Chlorhexidine Gluconate 15 ml 11/10/21 21:00 11/11/21 08:11 Chlorhexidine Gluconate 15 Ml Cup MUCOUS MEM 15 ml BID ROBERTA Administration Heparin Sodium (Porcine) 0 unit 11/10/21 10:27 11/11/21 06:57 Heparin Sodium 1,000 Un/Ml (10ml Vl) IV 3,275 unit PER PROTOCOL PRN Administration Low PTT Protocol Hydromorphone HCl 0.5 mg 11/11/21 09:37 Hydromorphone 0.5 Mg/0.5 Ml Syringe IVP Q3HR PRN Pain Heparin Sodium/Sodium Chloride 250 mls @ 10 mls/hr 11/10/21 10:30 07/19/22 06:59 25,000 unit/ Sodium Chloride IV 11.6 units/kg/hr .Q24H ROBERTA 15.259 mls/hr Titration Protocol 7.602 UNITS/KG/HR Propofol 1,000 mg/ IV Solution 100 mls @ 15.785 mls/hr 11/10/21 13:00 11/11 09:35 IV 50 mcg/kg/min .Q6H21M ROBERTA 39.463 mls/hr Administration Protocol 20 MCG/KG/MIN Piperacillin Sod/Tazobactam 100 mls @ 25 mls/hr 11/11/21 00:00 11/11/21 08:06 Sod 3.375 gm/ Sodium Chloride IVPB 25 mls/hr Q8HR ROBERTA Administration Protocol Levofloxacin/Dextrose 250 mg/ 50 mls @ 50 mls/hr 11/10/21 22:00 11/10/21 22:09 IV Solution IVPB 50 mls/hr HS ROBERTA Administration Protocol Insulin Human Regular 100 unit 101 mls @ 0 mls/hr 11/10/21 22:00 11/11/21 09:02 / Sodium Chloride IV 7.5 units/hr .Q0M ROBERTA 7.575 mls/hr Titration Protocol Per Protocol Norepinephrine Bitartrate 32 250 mls @ 3.07 mls/hr 11/11/21 07:15 mg/ Sodium Chloride IV .Q24H ROBERTA Protocol 0.05 MCG/KG/MIN Sodium Chloride 1,000 mls @ 75 mls/hr 11/11/21 09:30 11/11/21 09:32 Saline 0.9% IV 75 mls/hr .[id number] ROBERTA Administration Vancomycin HCl 2,000 mg/ 500 mls @ 167 mls/hr 11/11/21 12:00 Sodium Chloride IVPB Q16H ROBERTA Miscellaneous Information 1 each 11/10/21 04:56 Pneumonia Protocol Utilized 1 Each Misc PO ONCE PRN Per Protocol Naloxone HCl 0.2 mg 11/10/21 07:02 Naloxone 0.4 Mg/Ml 1 Ml Vial IV Q2M PRN Opioid Reversal Pantoprazole Sodium 40 mg 11/10/21 09:00 11/11/21 08:11 Pantoprazole 40 Mg/10 Ml Vial IV 40 mg DAILY ROBERTA Administration Intake and Output 11/10/21 11/11/21 11/11/21 22:59 06:59 14:59 Intake Total 9296.957 7925.296 645.515 Output Total 1635 2560 480 Balance -528.299 -1257.704 165.515 Intake: IV 800 800 300 Dextrose 5% in Water 1, 800 800 200 000 ml @ 100 mls/hr IV . [id number] ROBERTA with Sodium Bicarb (1 Meq/ml) 150 ml Rx#:[id number] Levofloxacin 250Mg-D5w 0 Pmx 250 mg In Dextrose/ Water 1 50ml.bag @ 50 mls /hr IVPB HS [facility] Rx#: [id number] Piperacillin-Tazobactam 3 100 .375 gm In Sodium Chloride 0.9% 100 ml @ 25 mls/hr IVPB Q8HR [facility] Rx# :[id number] Vancomycin 2,500 mg In 0 Sodium Chloride 0.9% 500 ml 500 ml @ 167 mls/hr IVPB Q24HR@1800 [facility] Rx#: [id number] Intake, IV Titration 306.701 502.296 345.515 Amount Heparin Sod,Pork in 0.45% 188.588 NaCl 25,000 unit In 0.45 % NaCl 1 250ml.bag @ 7. 602 UNITS/KG/HR 10 mls/hr IV .Q24H [facility] Rx#: [id number] Insulin Regular 100 unit 66.407 15.756 In Sodium Chloride 0.9% 100 ml @ Per Protocol IV .Q0M [facility] Rx#:[id number] Norepinephrine 32 mg In 3.494 135.706 Sodium Chloride 0.9% 218 ml @ 0.05 MCG/KG/MIN 3. 083 mls/hr IV .Q24H [facility] Rx#:[id number] propofoL 1,000 mg In 303.207 247.301 194.053 Empty Bag 1 bag @ 20 MCG/ KG/MIN 15.785 mls/hr IV . Q6H21M [facility] Rx#:[id number] Output: Urine 1635 2560 480 Other: Voiding Method Indwelling Catheter Indwelling Catheter Weight 131 kg 11/11/21 04:00 11/11/21 04:00
--- NOTE | 2021-11-11 11:00 | P.PCN ---
Date of Procedure: 11/11/21 Preoperative Diagnosis: Acute hypoxic respiratory failure and bilateral pneumonia Postoperative Diagnosis: Acute hypoxic respiratory failure and bilateral pneumonia Procedure(s) Performed: Flexible bronchoscopy, bronchial alveolar lavage of the left upper lobe Anesthesia: MAC Surgeon: Rosy Veras Monotype Keyboard Operator #1: Destinee Sims Estimated Blood Loss (ml): 0 Pathology: other Condition: critical Disposition: ICU Operative Findings: This procedure was done in the intensive care unit. The patient was orally intubated on a mechanical ventilator. The patient was on propofol. The patient was placed on on 100 percent FiO2. Following that, an adapter was essentially orotracheal tube and the flexible bronchoscope was advanced with orotracheal tube and was moved into the lower trachea. The tip of the ET tube was seen around 3 cm above the emre. The emre was sharp in the midline and the distal trachea was within normal limits. Copious amount of purulent respiratory secretions was seen on the left main stem bronchus. The bronchoscope was advanced to the left side and a left mainstem bronchus was cleaned and secretions were suctioned out. Following that, the airway inspection was completed and this involved the left upper lobe, lingular segment, left lower lobe and the various 8 segments on the left. All of these airways were patent. Purulent respiratory secretions were noted in left upper lobe and the distal left mainstem bronchus and these were suctioned out. The bronchoscope was quite into the lingula and the bronchioloalveolar lavage was done. A total of 60 mL of fluid was infused and 15 mL was suctioned back. Following that, bronchoscope was moved to the right side than the airway inspection was completed and this included the right mainstem bronchus, right upper lobe bronchus along with the different segments, bronchus intermedius, right middle lobe bronchus of the distal segment and the right lower lobe bronchus and its 5 segments. All of these airways are patent and the rest or secretions were scant on the right side. After completing the procedure, therapeutic airway suctioning was done. The airways were evacuated from any residual rest or secretions. The bronchioloalveolar lavage from the left was sent for microbial cultures and analysis. No bedside complications. Pulse ox remained above 90% throughout the procedure.
[2021-11-11 11:06] LABS: Glucose,Whole Blood 168 mg/dL (70-110)
[2021-11-11] MEDS: HYDROmorphone 0.5 MG/0.5 ML SYRINGE IVP PRN ×2 (11:16→20:51)
[2021-11-11] MEDS: VANCOMYCIN 2,000 MG in SODIUM CHLORIDE 0.9% 500 ML 500 ML IVPB SCH (11:23)
[2021-11-11] MEDS: NOREPINEPHRINE 32 MG in SODIUM CHLORIDE 0.9% 218 ML IV SCH (11:42)
[2021-11-11 12:08] LABS: Glucose,Whole Blood 192 mg/dL (70-110)
--- NOTE | 2021-11-11 12:14 | P.PN ---
Subjective Progress Note Date: 11/11/21 This is a 51-year-old male patient came into the emergency department because of chest pain. Note that the patient was in [facility] for chest pain approximately week ago and the patient was given a cardiac evaluation which included a cardiac stress and that came back abnormal and following that the patient was given a cardiac catheterization that showed nonocclusive disease and no intervention was done. Yesterday, the patient came in to the emergency department as the patient was complaining of increased shortness of breath and chest pain. His chest x-ray showed some cardiomegaly and increased bilateral interstitial pulmonary infiltrates which also raises the concern for an underlying pneumonia. While in the emergency, the patient started having episodes of fever and he became more obtunded and short of breath. At that point, the patient was started on BiPAP for respiratory support. The patient was started on a BiPAP at a pressure of 14/5 cm water and FiO2 of 40%. The pH was at 7.17 with a pCO2 of 64 and pO2 of 83 and this was not an FiO2 of 50%. At a time of my arrival, the patient's breathing was still labored and the patient was quite lethargic and obtunded. He was able to generate an adequate tidal volume of 400 mL. Nevertheless, the patient was still having shortness of breath and her breathing was labored with a high minute ventilation and a high respiratory rate. The patient was already given a total of 2 L of IV fluid and the patient was given a combination of Rocephin and Zithromax covering for a pneumonia. The workup that has been done showed a white cell count of 23 with a hemoglobin of 13.7 and a platelet count of 219. Normal coagulation profile. Lactic acid level was at 4.1. Blood sugars were elevated at around 370. UA showed +2 glucose, +1 protein and +9 white cells. The coagulation profile was within normal limits. COVID 19 by PCR came back also negative. After being transferred to the intensive care unit, the patient was monitored very closely and subsequently was decided to LAD and intubated the patient put him on a mechanical ventilator. Note that the patient had a triple lumen catheter established in the emergency department. The patient was also started on low- dose norepinephrine running at 0.05 mg/kg per minute. He was started on bicarb infusion. Noted the patient is a chronic CO2 retainer patient has a relatively elevated serum bicarbonate level at baseline. On today's evaluation of 11/11/2021, the patient is being seen for a follow-up. The patient remains intubated on mechanical ventilator. On today's evaluation, the patient remains on a propofol which is running at 50 mcg/kg per minute. The patient is on a mechanical ventilator on assist control mode at the rate of 18 without volume of 400 and FiO2 of 50% with a PEEP of 5. The blood gases showed a pH of 7.38 with a pCO2 of 53 and pO2 of 11. The peak airway pressure is 29. His pro-calcitonin level is at 5.3 supporting the possibility of underlying bacterial infection and same time the patient was having episodes of fever with a T-max of 101.4F. Note that the patient's overall acid base status is improved as the patient was also being given bicarb infusion rate of 100 mL an hour. The blood gases from today shows improvement with a pH of 7.38 And a serum bicarbonate is currently at 32 which is very close to the patient's baseline. The patient has been adequately resuscitated IV fluids. He remains on norepinephrine infusion running at 0.1 g respiratory per minute. Urine output is adequate. The patient had an echocardiogram that showed a preserved LV function with an ejection fraction of 65%. The patient remains on insulin d rip at 7.5 units an hour and the patient is also on IV heparin. On today's evaluation, the white cell count of 21 with a hemoglobin 15.7. Serum bicarb is at 32 with a sodium level of 139 and a BUN of 38 a CAT scan of 1.5. No other significant events overnight. Antibiotic coverage has been broadened to include a combination of Zosyn, Levaquin and vancomycin. Note that the patient's cultures are all negative thus far. Blood sugars under better control for now. Objective - Vital Signs Vital signs: Vital Signs Temp 100.4 F H 11/11/21 08:00 Pulse 69 11/11/21 08:00 Resp 14 11/11/21 08:00 BP 115/55 11/10/21 19:00 Pulse Ox 96 11/11/21 08:00 FiO2 50 11/11/21 08:00 Intake & Output 11/10/21 11/11/21 11/11/21 18:59 06:59 18:59 Intake Total 488.928 7216.773 545.515 Output Total 1775 3345 480 Balance -1007.776 -1457.227 65.515 Weight 131.542 kg 131 kg Intake: IV 600 1200 300 Dextrose 5% in Water 1, 600 1200 200 000 ml @ 100 mls/hr IV . [id number] ROBERTA with Sodium Bicarb (1 Meq/ml) 150 ml Rx#:[id number] Levofloxacin 250Mg-D5w 0 Pmx 250 mg In Dextrose/ Water 1 50ml.bag @ 50 mls /hr IVPB HS [facility] Rx#: [id number] Piperacillin-Tazobactam 3 100 .375 gm In Sodium Chloride 0.9% 100 ml @ 25 mls/hr IVPB Q8HR [facility] Rx# :[id number] Vancomycin 2,500 mg In 0 Sodium Chloride 0.9% 500 ml 500 ml @ 167 mls/hr IVPB Q24HR@1800 [facility] Rx#: [id number] Intake, IV Titration 167.224 687.773 245.515 Amount Heparin Sod,Pork in 0.45% 188.588 NaCl 25,000 unit In 0.45 % NaCl 1 250ml.bag @ 7. 602 UNITS/KG/HR 10 mls/hr IV .Q24H [facility] Rx#: [id number] Insulin Regular 100 unit 66.407 15.756 In Sodium Chloride 0.9% 100 ml @ Per Protocol IV .Q0M [facility] Rx#:[id number] Norepinephrine 32 mg In 29.762 135.706 Sodium Chloride 0.9% 218 ml @ 0.05 MCG/KG/MIN 3. 083 mls/hr IV .Q24H [facility] Rx#:[id number] propofoL 1,000 mg In 137.462 432.778 94.053 Empty Bag 1 bag @ 20 MCG/ KG/MIN 15.785 mls/hr IV . Q6H21M [facility] Rx#:[id number] Output: Urine 0165 0075 480 Other: Voiding Method Indwelling Catheter Indwelling Catheter ABP, PAP, CO, CI - Last Documented Arterial Blood Pressure 126/56 - Exam Patient is currently intubated on a mechanical ventilator, the patient is sedated with propofol and the patient is calm and comfortable, The patient is obese and the patient has a body mass index of 46. Intubated on a mechanical ventilator Head exam was generally normal. There was no scleral icterus or corneal arcus. Mucous membranes were moist. Neck was supple and without jugular venous distension, thyromegaly, or carotid bruits. Carotids were easily palpable bilaterally. There was no adenopathy. The patient has orogastric and orotracheal tube in place Lungs sounds are diminished bilaterally and the patient has scattered rhonchi heard throughout the lung garcia and the patient scattered crackles and wheezes. Cardiac exam revealed the PMI to be normally situated and sized. The rhythm was regular and no extrasystoles were noted during several minutes of auscultation. The first and second heart sounds were normal and physiologic splitting of the second heart sound was noted. There were no murmurs, rubs, clicks, or gallops. Abdominal exam revealed normal bowel sounds. The abdomen was soft, non-tender, and without masses, organomegaly, or appreciable enlargement of the abdominal aorta. Examination of the extremities revealed easily palpable radial, femoral and ped al pulses. There was no cyanosis, clubbing or edema. Examination of the skin revealed no evidence of significant rashes, suspicious appearing nevi or other concerning lesions. Neurologically the patient was quite obtunded prior to her intubation. Currently is on propofol. His neurologic exam was apparently nonfocal prior to the intubation process. - Labs CBC & Chem 7: 11/11/21 04:00 11/11/21 04:00 Labs: Abnormal Lab Results - Last 24 Hours (Table) 11/10/21 11/10/21 11/10/21 Range/Units 09:15 11:24 11:50 WBC (3.8-10.6) k/uL MCHC (31.0-37.0) g/dL RDW (11.5-15.5) % Neutrophils # (1.3-7.7) k/uL Lymphocytes # (1.0-4.8) k/uL Monocytes # (0-1.0) k/uL PT (9.0-12.0) sec INR (<1.2) APTT (22.0-30.0) sec ABG pH (7.35-7.45) ABG pCO2 (35-45) mmHg ABG pO2 (83-108) mmHg ABG HCO3 (21-25) mmol/L ABG Total CO2 (19-24) mmol/L ABG O2 Saturation (94-97) % Carbon Dioxide (22-30) mmol/L BUN (9-20) mg/dL Creatinine (0.66-1.25) mg/dL Glucose (74-99) mg/dL POC Glucose (mg/dL) 457 H (70-110) mg/dL Plasma Lactic Acid Ger 4.1 H* (0.7-2.0) mmol/L Calcium (8.4-10.2) mg/dL Alkaline Phosphatase (38-126) U/L Total Protein (6.3-8.2) g/dL Albumin (3.5-5.0) g/dL Procalcitonin (0.02-0.09) ng/mL Urine Protein 1+ H (Negative) Urine Glucose (UA) 2+ H (Negative) Urine Blood Trace H (Negative) Urine WBC 9 H (0-5) /hpf Amorphous Sediment Moderate H (None) /hpf Urine Bacteria Rare H (None) /hpf Hyaline Casts 36 H (0-2) /lpf Urine Mucus Few H (None) /hpf 11/10/21 11/10/21 11/10/21 Range/Units 11:50 11:59 12:08 WBC 23.8 H (3.8-10.6) k/uL MCHC 30.6 L (31.0-37.0) g/dL RDW (11.5-15.5) % Neutrophils # 22.2 H (1.3-7.7) k/uL Lymphocytes # 0.5 L (1.0-4.8) k/uL Monocytes # 1.1 H (0-1.0) k/uL PT (9.0-12.0) sec INR (<1.2) APTT (22.0-30.0) sec ABG pH 7.11 L* (7.35-7.45) ABG pCO2 56 H (35-45) mmHg ABG pO2 72 L (83-108) mmHg ABG HCO3 18 L (21-25) mmol/L ABG Total CO2 (19-24) mmol/L ABG O2 Saturation 92.0 L (94-97) % Carbon Dioxide (22-30) mmol/L BUN (9-20) mg/dL Creatinine (0.66-1.25) mg/dL Glucose (74-99) mg/dL POC Glucose (mg/dL) (70-110) mg/dL Plasma Lactic Acid Ger (0.7-2.0) mmol/L Calcium (8.4-10.2) mg/dL Alkaline Phosphatase (38-126) U/L Total Protein (6.3-8.2) g/dL Albumin (3.5-5.0) g/dL Procalcitonin 5.31 H (0.02-0.09) ng/mL Urine Protein (Negative) Urine Glucose (UA) (Negative) Urine Blood (Negative) Urine WBC (0-5) /hpf Amorphous Sediment (None) /hpf Urine Bacteria (None) /hpf Hyaline Casts (0-2) /lpf Urine Mucus (None) /hpf 11/10/21 11/10/21 11/10/21 Range/Units 13:07 14:00 15:25 WBC (3.8-10.6) k/uL MCHC (31.0-37.0) g/dL RDW (11.5-15.5) % Neutrophils # (1.3-7.7) k/uL Lymphocytes # (1.0-4.8) k/uL Monocytes # (0-1.0) k/uL PT (9.0-12.0) sec INR (<1.2) APTT (22.0-30.0) sec ABG pH 7.12 L* (7.35-7.45) ABG pCO2 66 H (35-45) mmHg ABG pO2 109 H (83-108) mmHg ABG HCO3 (21-25) mmol/L ABG Total CO2 (19-24) mmol/L ABG O2 Saturation 97.9 H (94-97) % Carbon Dioxide (22-30) mmol/L BUN (9-20) mg/dL Creatinine (0.66-1.25) mg/dL Glucose (74-99) mg/dL POC Glucose (mg/dL) 469 H (70-110) mg/dL Plasma Lactic Acid Ger 3.1 H* (0.7-2.0) mmol/L Calcium (8.4-10.2) mg/dL Alkaline Phosphatase (38-126) U/L Total Protein (6.3-8.2) g/dL Albumin (3.5-5.0) g/dL Procalcitonin (0.02-0.09) ng/mL Urine Protein (Negative) Urine Glucose (UA) (Negative) Urine Blood (Negative) Urine WBC (0-5) /hpf Amorphous Sediment (None) /hpf Urine Bacteria (None) /hpf Hyaline Casts (0-2) /lpf Urine Mucus (None) /hpf 11/10/21 11/10/21 11/10/21 Range/Units 17:33 18:20 18:20 WBC (3.8-10.6) k/uL MCHC (31.0-37.0) g/dL RDW (11.5-15.5) % Neutrophils # (1.3-7.7) k/uL Lymphocytes # (1.0-4.8) k/uL Monocytes # (0-1.0) k/uL PT (9.0-12.0) sec INR (<1.2) APTT 44.2 H (22.0-30.0) sec ABG pH (7.35-7.45) ABG pCO2 (35-45) mmHg ABG pO2 (83-108) mmHg ABG HCO3 (21-25) mmol/L ABG Total CO2 (19-24) mmol/L ABG O2 Saturation (94-97) % Carbon Dioxide (22-30) mmol/L BUN (9-20) mg/dL Creatinine (0.66-1.25) mg/dL Glucose (74-99) mg/dL POC Glucose (mg/dL) 465 H (70-110) mg/dL Plasma Lactic Acid Ger 3.5 H* (0.7-2.0) mmol/L Calcium (8.4-10.2) mg/dL Alkaline Phosphatase (38-126) U/L Total Protein (6.3-8.2) g/dL Albumin (3.5-5.0) g/dL Procalcitonin (0.02-0.09) ng/mL Urine Protein (Negative) Urine Glucose (UA) (Negative) Urine Blood (Negative) Urine WBC (0-5) /hpf Amorphous Sediment (None) /hpf Urine Bacteria (None) /hpf Hyaline Casts (0-2) /lpf Urine Mucus (None) /hpf 11/10/21 11/10/2111/10/22 Range/Units 20:20 22:03 22:03 WBC (3.8-10.6) k/uL MCHC (31.0-37.0) g/dL RDW (11.5-15.5) % Neutrophils # (1.3-7.7) k/uL Lymphocytes # (1.0-4.8) k/uL Monocytes # (0-1.0) k/uL PT (9.0-12.0) sec INR (<1.2) APTT (22.0-30.0) sec ABG pH (7.35-7.45) ABG pCO2 (35-45) mmHg ABG pO2 (83-108) mmHg ABG HCO3 (21-25) mmol/L ABG Total CO2 (19-24) mmol/L ABG O2 Saturation (94-97) % Carbon Dioxide (22-30) mmol/L BUN (9-20) mg/dL Creatinine (0.66-1.25) mg/dL Glucose (74-99) mg/dL POC Glucose (mg/dL) 412 H 386 H (70-110) mg/dL Plasma Lactic Acid Ger 2.2 H* (0.7-2.0) mmol/L Calcium (8.4-10.2) mg/dL Alkaline Phosphatase (38-126) U/L Total Protein (6.3-8.2) g/dL Albumin (3.5-5.0) g/dL Procalcitonin (0.02-0.09) ng/mL Urine Protein (Negative) Urine Glucose (UA) (Negative) Urine Blood (Negative) Urine WBC (0-5) /hpf Amorphous Sediment (None) /hpf Urine Bacteria (None) /hpf Hyaline Casts (0-2) /lpf Urine Mucus (None) /hpf 11/10/21 11/10/21 11/10/21 Range/Units 22:33 23:02 23:57 WBC (3.8-10.6) k/uL MCHC (31.0-37.0) g/dL RDW (11.5-15.5) % Neutrophils # (1.3-7.7) k/uL Lymphocytes # (1.0-4.8) k/uL Monocytes # (0-1.0) k/uL PT (9.0-12.0) sec INR (<1.2) APTT (22.0-30.0) sec ABG pH (7.35-7.45) ABG pCO2 (35-45) mmHg ABG pO2 (83-108) mmHg ABG HCO3 (21-25) mmol/L ABG Total CO2 (19-24) mmol/L ABG O2 Saturation (94-97) % Carbon Dioxide (22-30) mmol/L BUN (9-20) mg/dL Creatinine (0.66-1.25) mg/dL Glucose (74-99) mg/dL POC Glucose (mg/dL) 395 H 372 H 308 H (70-110) mg/dL Plasma Lactic Acid Ger (0.7-2.0) mmol/L Calcium (8.4-10.2) mg/dL Alkaline Phosphatase (38-126) U/L Total Protein (6.3-8.2) g/dL Albumin (3.5-5.0) g/dL Procalcitonin (0.02-0.09) ng/mL Urine Protein (Negative) Urine Glucose (UA) (Negative) Urine Blood (Negative) Urine WBC (0-5) /hpf Amorphous Sediment (None) /hpf Urine Bacteria (None) /hpf Hyaline Casts (0-2) /lpf Urine Mucus (None) /hpf 11/11/21 11/11/21 11/11/21 Range/Units 00:52 00:52 02:07 WBC (3.8-10.6) k/uL MCHC (31.0-37.0) g/dL RDW (11.5-15.5) % Neutrophils # (1.3-7.7) k/uL Lymphocytes # (1.0-4.8) k/uL Monocytes # (0-1.0) k/uL PT (9.0-12.0) sec INR (<1.2) APTT (22.0-30.0) sec ABG pH (7.35-7.45) ABG pCO2 (35-45) mmHg ABG pO2 (83-108) mmHg ABG HCO3 (21-25) mmol/L ABG Total CO2 (19-24) mmol/L ABG O2 Saturation (94-97) % Carbon Dioxide (22-30) mmol/L BUN (9-20) mg/dL Creatinine (0.66-1.25) mg/dL Glucose (74-99) mg/dL POC Glucose (mg/dL) 268 H 254 H (70-110) mg/dL Plasma Lactic Acid Ger 2.2 H* (0.7-2.0) mmol/L Calcium (8.4-10.2) mg/dL Alkaline Phosphatase (38-126) U/L Total Protein (6.3-8.2) g/dL Albumin (3.5-5.0) g/dL Procalcitonin (0.02-0.09) ng/mL Urine Protein (Negative) Urine Glucose (UA) (Negative) Urine Blood (Negative) Urine WBC (0-5) /hpf Amorphous Sediment (None) /hpf Urine Bacteria (None) /hpf Hyaline Casts (0-2) /lpf Urine Mucus (None) /hpf 11/11/21 11/11/21 11/11/21 Range/Units 03:02 03:58 04:00 WBC 21.7 H (3.8-10.6) k/uL MCHC (31.0-37.0) g/dL RDW 16.1 H (11.5-15.5) % Neutrophils # 19.1 H (1.3-7.7) k/uL Lymphocytes # 0.8 L (1.0-4.8) k/uL Monocytes # 1.2 H (0-1.0) k/uL PT (9.0-12.0) sec INR (<1.2) APTT (22.0-30.0) sec ABG pH (7.35-7.45) ABG pCO2 (35-45) mmHg ABG pO2 (83-108) mmHg ABG HCO3 (21-25) mmol/L ABG Total CO2 (19-24) mmol/L ABG O2 Saturation (94-97) % Carbon Dioxide (22-30) mmol/L BUN (9-20) mg/dL Creatinine (0.66-1.25) mg/dL Glucose (74-99) mg/dL POC Glucose (mg/dL) 216 H 223 H (70-110) mg/dL Plasma Lactic Acid Ger (0.7-2.0) mmol/L Calcium (8.4-10.2) mg/dL Alkaline Phosphatase (38-126) U/L Total Protein (6.3-8.2) g/dL Albumin (3.5-5.0) g/dL Procalcitonin (0.02-0.09) ng/mL Urine Protein (Negative) Urine Glucose (UA) (Negative) Urine Blood (Negative) Urine WBC (0-5) /hpf Amorphous Sediment (None) /hpf Urine Bacteria (None) /hpf Hyaline Casts (0-2) /lpf Urine Mucus (None) /hpf 11/11/21 11/11/21 11/11/21 Range/Units 04:00 04:56 05:58 WBC (3.8-10.6) k/uL MCHC (31.0-37.0) g/dL RDW (11.5-15.5) % Neutrophils # (1.3-7.7) k/uL Lymphocytes # (1.0-4.8) k/uL Monocytes # (0-1.0) k/uL PT (9.0-12.0) sec INR (<1.2) APTT (22.0-30.0) sec ABG pH (7.35-7.45) ABG pCO2 53 H (35-45) mmHg ABG pO2 (83-108) mmHg ABG HCO3 31 H (21-25) mmol/L ABG Total CO2 33 H (19-24) mmol/L ABG O2 Saturation 98.3 H (94-97) % Carbon Dioxide 32 H (22-30) mmol/L BUN 38 H (9-20) mg/dL Creatinine 1.54 H (0.66-1.25) mg/dL Glucose 217 H (74-99) mg/dL POC Glucose (mg/dL) 204 H (70-110) mg/dL Plasma Lactic Acid Ger (0.7-2.0) mmol/L Calcium 8.2 L (8.4-10.2) mg/dL Alkaline Phosphatase 155 H (38-126) U/L Total Protein 5.4 L (6.3-8.2) g/dL Albumin 2.9 L (3.5-5.0) g/dL Procalcitonin (0.02-0.09) ng/mL Urine Protein (Negative) Urine Glucose (UA) (Negative) Urine Blood (Negative) Urine WBC (0-5) /hpf Amorphous Sediment (None) /hpf Urine Bacteria (None) /hpf Hyaline Casts (0-2) /lpf Urine Mucus (None) /hpf 11/11/21 11/11/21 11/11/21 Range/Units 06:04 06:05 07:00 WBC (3.8-10.6) k/uL MCHC (31.0-37.0) g/dL RDW (11.5-15.5) % Neutrophils # (1.3-7.7) k/uL Lymphocytes # (1.0-4.8) k/uL Monocytes # (0-1.0) k/uL PT 14.1 H (9.0-12.0) sec INR 1.4 H (<1.2) APTT 37.9 H (22.0-30.0) sec ABG pH (7.35-7.45) ABG pCO2 (35-45) mmHg ABG pO2 (83-108) mmHg ABG HCO3 (21-25) mmol/L ABG Total CO2 (19-24) mmol/L ABG O2 Saturation (94-97) % Carbon Dioxide (22-30) mmol/L BUN (9-20) mg/dL Creatinine (0.66-1.25) mg/dL Glucose (74-99) mg/dL POC Glucose (mg/dL) 213 H 200 H (70-110) mg/dL Plasma Lactic Acid Ger (0.7-2.0) mmol/L Calcium (8.4-10.2) mg/dL Alkaline Phosphatase (38-126) U/L Total Protein (6.3-8.2) g/dL Albumin (3.5-5.0) g/dL Procalcitonin (0.02-0.09) ng/mL Urine Protein (Negative) Urine Glucose (UA) (Negative) Urine Blood (Negative) Urine WBC (0-5) /hpf Amorphous Sediment (None) /hpf Urine Bacteria (None) /hpf Hyaline Casts (0-2) /lpf Urine Mucus (None) /hpf 11/11/21 11/11/21 Range/Units 08:02 09:00 WBC (3.8-10.6) k/uL MCHC (31.0-37.0) g/dL RDW (11.5-15.5) % Neutrophils # (1.3-7.7) k/uL Lymphocytes # (1.0-4.8) k/uL Monocytes # (0-1.0) k/uL PT (9.0-12.0) sec INR (<1.2) APTT (22.0-30.0) sec ABG pH (7.35-7.45) ABG pCO2 (35-45) mmHg ABG pO2 (83-108) mmHg ABG HCO3 (21-25) mmol/L ABG Total CO2 (19-24) mmol/L ABG O2 Saturation (94-97) % Carbon Dioxide (22-30) mmol/L BUN (9-20) mg/dL Creatinine (0.66-1.25) mg/dL Glucose (74-99) mg/dL POC Glucose (mg/dL) 199 H 209 H (70-110) mg/dL Plasma Lactic Acid Ger (0.7-2.0) mmol/L Calcium (8.4-10.2) mg/dL Alkaline Phosphatase (38-126) U/L Total Protein (6.3-8.2) g/dL Albumin (3.5-5.0) g/dL Procalcitonin (0.02-0.09) ng/mL Urine Protein (Negative) Urine Glucose (UA) (Negative) Urine Blood (Negative) Urine WBC (0-5) /hpf Amorphous Sediment (None) /hpf Urine Bacteria (None) /hpf Hyaline Casts (0-2) /lpf Urine Mucus (None) /hpf Assessment and Plan Plan: Acute hypoxic/hypercapneic respiratory failure, currently under investigation. High likelihood for an underlying pneumonia based on the chest x-ray findings. Patient is currently on broad-spectrum antibiotics. Follow-up blood gases from today shows improvement and acid base status. Bronchoscopy was done and the bronchioloalveolar lavage from the left upper lobe was collected. The patient is currently on broad-spectrum antibiotics. Follow-up blood gases showed improvement and acid base status. The patient is on a combination of Zosyn and Levaquin and vancomycin. Septic shock, Acute hypotension, on Levo 0.1 mcg/kg/min, the pro calcitonin level is elevated and this is suggestive of an acute bacterial septic shock. The patient is currently on a combination of pressors and antibiotics and the patient was placed on a combination of Zosyn/Levaquin and vancomycin. acute latic acidosis, improved and LA is down to 1.3 NARENDRA, improving, the creatinine is down to 1.54 CAD and patient is post acute NSTMI in [facility] fever, currently under investigation, tmax 101.4 and he is temp is 100.4 Morbid obesity, BMI 46.8-Weight loss measures and follow with PCP Diabetes mellitus type 2, on nsulin drip at 7.5 U/hr GERD Diabetic peripheral neuropathy Hyperlipidemia Essential hypertension Chronic pain syndrome. 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 Hepatic steatosis, nonalcoholic fatty liver disease Herniated disc in the lumbar spine Partial blindness of left eye Diabetic gastroparesis Anxiety depression On Cymbalta Chronic pain the patient has a morphine pump Previous COVNV , 2020 Plan Keep the patient sedated with propofol him on August given a brief sedation holiday to later stage Continue vent support and no ventilator changes will be done today Discontinue bicarb infusion and put the patient on a normal saline at the rate of 75 mL an hour Continue pressors and gradually wean off the norepinephrine infusion Continued empiric antibiotic coverage with a combination of Zosyn and Levaquin and vancomycin Check a Legionella urine antigen Repeat another pro calcitonin the morning Cortisol level has been checked and results are still pending Echocardiogram at shown a preserved LV function Continue insulin drip Continue IV heparin Started patient on enteral feeding for nutritional support Bronchoscopy and bronchial lavage of the left upper lobe was done. Awaiting cultures. Condition is critical and discussed the case with the . We'll continue to follow make further recommendations based on progress. Time with Patient: Greater than 30
--- NOTE | 2021-11-11 12:19 | P.PN ---
Progress Note - Text Progress Note Date: 11/11/21 Chief Complaint: Short of breath Hospital course: This is a pleasant 51-year-old male , follows with Dr. Waggoner. patient has a right Charcot foot and also found to have osteomyelitis in October 2020. 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 Patient presented to ER with chest pain and shortness of breath. About a week ago patient was admitted ear hospital. Her chest pain. Had a cardiac stress test that was abnormal and a cardiac cath that showed nonocclusive disease and no intervention was done. Since presentation to the ER patient became progressively more short of breath. Becoming less responsive. Was put on a BiPAP. Patient being becoming labored. Patient was seen by Dr. Veras from critical care. He is coming back to intubate the patient. Patient rather lethargic not really able to give on the much of a history. Received antibiotics. In the ICU. Getting bicarbonate. Admitted with bilateral pneumonia, acute hypoxic respiratory failure, delirium. Intubated November 11: ICU. Intubated./Ventilator. FiO2 60 PEEP of 5. Telemetry shows sinus rhythm. Drips include insulin, norepinephrine, IV heparin, propofol. This morning underwent bronchoscopy by Dr. Veras. Significant infectioned secretion obtained from the left bronchus. Discussed with the at the bedside. Has remained febrile. Will change IV heparin to subcu Lovenox. Active Medications Acetaminophen (Acetaminophen Tab 325 Mg Tab) 650 mg PO Q6HR PRN PRN Reason: Fever and/ or Pain Last Admin: 11/11/21 11:17 Dose: 650 mg Albuterol Sulfate (Albuterol Nebulized 2.5 Mg/3 Ml) 5 mg INHALATION RT-Q4H PRN PRN Reason: Shortness Of Breath Or Wheezing Last Admin: 11/10/21 07:39 Dose: 5 mg Albuterol/Ipratropium (Ipratropium-Albuterol 3 Ml Neb) 3 ml INHALATION RT-QID [facility] Last Admin: 11/11/21 11:10 Dose: 3 ml Chlorhexidine Gluconate (Chlorhexidine Gluconate 15 Ml Cup) 15 ml MUCOUS MEM BID [facility] Last Admin: 11/11/21 08:11 Dose: 15 ml Heparin Sodium (Porcine) (Heparin Sodium 1,000 Un/Ml (10ml Vl)) 0 unit IV PER PROTOCOL PRN; Protocol PRN Reason: Low PTT Last Admin: 11/11/21 06:57 Dose: 3,275 unit Hydromorphone HCl (Hydromorphone 0.5 Mg/0.5 Ml Syringe) 0.5 mg IVP Q3HR PRN PRN Reason: Pain Last Admin: 11/11/21 11:16 Dose: 0.5 mg Heparin Sodium/Sodium Chloride (25,000 unit/ Sodium Chloride) 250 mls @ 10 mls/hr IV .Q24H [facility]; Protocol Last Admin: 11/11/21 10:08 Dose: 11.6 units/kg/hr, 15.259 mls/hr Propofol 1,000 mg/ IV Solution 100 mls @ 15.785 mls/hr IV .Q6H21M [facility]; Protocol Last Admin: 11/11/21 11:57 Dose: 50 mcg/kg/min, 39.463 mls/hr Piperacillin Sod/Tazobactam (Sod 3.375 gm/ Sodium Chloride) 100 mls @ 25 mls/hr IVPB Q8HR [facility]; Protocol Last Admin: 11/11/21 08:06 Dose: 25 mls/hr Levofloxacin/Dextrose 250 mg/ (IV Solution) 50 mls @ 50 mls/hr IVPB HS [facility]; Protocol Last Admin: 11/10/21 22:09 Dose: 50 mls/hr Insulin Human Regular 100 unit (/ Sodium Chloride) 101 mls @ 0 mls/hr IV .Q0M [facility]; Protocol Last Titration: 11/11/21 12:08 Dose: 7 units/hr, 7.07 mls/hr Norepinephrine Bitartrate 32 (mg/ Sodium Chloride) 250 mls @ 3.07 mls/hr IV .Q24H [facility]; Protocol Last Admin: 11/11/21 11:42 Dose: 0.11 mcg/kg/min, 6.755 mls/hr Sodium Chloride (Saline 0.9%) 1,000 mls @ 75 mls/hr IV .[id number] [facility] Last Admin: 11/11/21 09:32 Dose: 75 mls/hr Vancomycin HCl 2,000 mg/ (Sodium Chloride) 500 mls @ 167 mls/hr IVPB Q16H [facility] Last Admin: 11/11/21 11:23 Dose: 167 mls/hr Miscellaneous Information (Pneumonia Protocol Utilized 1 Each [facility]) 1 each PO ONCE PRN PRN Reason: Per Protocol Naloxone HCl (Naloxone 0.4 Mg/Ml 1 Ml Vial) 0.2 mg IV Q2M PRN PRN Reason: Opioid Reversal Pantoprazole Sodium (Pantoprazole 40 Mg/10 Ml Vial) 40 mg IV DAILY [facility] Last Admin: 11/11/21 08:11 Dose: 40 mg Past medical history to include: Bilateral Charcot foot, with left foot osteomyelitis with surgery in January 2021 + [facility]um, diabetes, GERD, peripheral neuropathy, hypertension, hyperlipidemia, factor [id number] mutation on and coordination, diabetic gastroparesis, decreased vision in the left eye, depression, history of 2 DVTs, sleep apnea uses BiPAP machine environmental ALLERGIES, fatty liver, herniated disc in the lower back, pain pump implant, narrowing of esophagus 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 No history of alcohol or smoking. Family history: Bladder cancer Physical examination: VITAL SIGNS: 100.4, 79, 22, 1 45 x 57, intubated GENERAL: Laying in bed, intubated, sedated EYES: Pupils equal. Conjunctiva normal. HEENT: External appearance of nose and ears normal, oral cavity grossly normal. NECK: JVD unable to assess; masses not palpable. HEART: First and second heart sounds are normal; mild edema. LUNGS: Respiratory rate increased; diminished breath sounds, coarse expiratory crackles ABDOMEN: Soft, nontender, liver spleen not palpable, no masses palpable. PSYCH: Able to assess MUSCULOSKELETAL:No Clubbing/cyanosis;muscles-grossly intact. Patient got fungal changes in the nails of the foot. Dry skin. Charcot foot. Left foot of the dressing. INVESTIGATIONS, reviewed in the clinical context: November 11: WBC 21.7 hemoglobin 13.7 platelets 178 potassium 4.2 BUN 38 creatinine 1.5 for White count 12.9 hemoglobin 10.7 platelets 182 sodium 133 potassium 5.3 BUN 38 creatinine 1.98 Lactic acid 3.1 lesion 1.4 Troponin I less than 0.012 CRP 1.6 Chest x-ray film personally reviewed by me-scattered inflammatory EKG tracing personally reviewed by me-sinus tachycardia rate 124 Assessment and plan: -Bilateral pneumonia, possible aspiration causing hypoxia: Start respond IV Zosyn, IV vancomycin. Bronchoscopy with lavage on November [address] Veras -Acute hypoxic respiratory failure secondary to pneumonia, not improving Ventilator support. Intubated November 10 -Chronic left plantar wound Consult ID -Bilateral foot Charcot foot from diabetes -Morbid obesity, BMI 46.8 Weight loss measures and follow with PCP -Diabetes mellitus type 2, chronically on insulin uncontrolled with hyperglycemia : Slow to respond Insulin drip -GERD On Pepcid -Diabetic peripheral neuropathy On Lyrica -Hyperlipidemia Lipitor -Hypotensive and septic shock Norepinephrine. IV -Chronic pain syndrome. morphine pain pump -Primary osteoarthritis Pain medications as needed -Obstructive sleep apnea Uses CPAP -factor V Leyden mutation On Coumadin. 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 Underwent bronchoscopy with lavage today. We'll change IV heparin to subcu Lovenox. Other medications to continue. On the ventilator. 2 feeding to be started today. Discussed with at the bedside. Remains critical
[2021-11-11 13:38] LABS: Glucose,Whole Blood 175 mg/dL (70-110)
[2021-11-11 15:06] LABS: Glucose,Whole Blood 178 mg/dL (70-110)
[2021-11-11 16:11] LABS: Glucose,Whole Blood 155 mg/dL (70-110)
[2021-11-11 17:13] LABS: Glucose,Whole Blood 160 mg/dL (70-110)
[2021-11-11] MEDS: ENOXAPARIN 120 MG/0.8 ML SYRINGE SQ SCH (17:22)
[2021-11-11 18:08] LABS: Glucose,Whole Blood 130 mg/dL (70-110)
[2021-11-11 18:57] LABS: Glucose,Whole Blood 159 mg/dL (70-110)
[2021-11-11 20:16] LABS: Glucose,Whole Blood 146 mg/dL (70-110)
[2021-11-11 21:10] LABS: Glucose,Whole Blood 148 mg/dL (70-110)
[2021-11-11] MEDS: LEVOFLOXACIN 250MG-D5W PMX 250 MG in DEXTROSE/WATER 1 50ML.BAG IVPB SCH (21:11)
--- NOTE | 2021-11-11 22:45 | P.CONS ---
History of Present Illness - Reason for Consult Consult date: 11/11/21 Wound care/antibiotics Requesting physician: Heri Alvarez - Chief Complaint Shortness of breath x one day - History of Present Illness Patient is a 51-year-old male with a past medical he significant for diabetes mellitus patient did have history of left diabetic foot infection with a plantar ulcer to the left foot for the patient has been evaluated and treated by Dr. Coleman the patient was brought into the ER yesterday because of the chest pain along with increasing shortness of breath and this patient symptom has been going on for a day or 2 before presentation to the hospital patient also felt nauseated and apparently did have an episode of vomiting on arrival to the ER patient did have low-grade fever of 99.8 subsequently spiked a fever of 100.9 F patient was hypoxic requiring intubation and admission to the ICU patient did have a white count of 20.9 which is up to 23.8 with a left shift BUN and creatinine mildly elevated blood test was elevated urine not significantly positive dawkins testing was negative patient did have blood cultures obtained which are currently pending and the patient is status post bronchoscopy with bronchoalveolar lavage and those cultures are pending patient is currently being treated with vancomycin Zosyn and Levaquin infectious disease was consulted for further management of antibiotic therapy especially concern for the left foot plantar ulcer with the patient has for a couple of weeks of and apparently has s hown clinical improvement mention no drainage from his left foot plantar wound and no evidence of any swelling or redness Review of Systems Positive points has been mentioned in HPI complete review could not be obtained as patient is intubated on the vent Past Medical History Past Medical History: Blood Disorder, Diabetes Mellitus, Deep Vein Thrombosis (DVT), GERD/Reflux, Hyperlipidemia, Hypertension, Musculoskeletal Disorder, Osteoarthritis (OA), Sleep Apnea/CPAP/BIPAP Additional Past Medical History / Comment(s): IDDM type II, neuropathy bilateral feet with R foot worse, charcot foot R/L, currently sores L foot and is NWB, recent surgery R foot with boot an can wt bear as tolerated, gastroparesis, hiatal hernia, esophageal narrowing (scarring)/past dysphagia/has had dilations, factor V leiden, 2 DVT's L leg, another superficial blood clot L leg, chronic back pain/has pain pump, DDD and bulging discs, legally blind L eye since , migraines, PVD, fatty liver, MEL with trilogy machine. 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 Past Anesthesia/Blood Transfusion Reactions: Family History of Problems w/ Anesthesia Additional Past Anesthesia/Blood Transfusion Reaction / Comm: STATES "MOTHER CRASHES" "passes out"-with anesthesia,"needs to have a torch solderer dose" Additional Psychological History / Comment(s): Pt resides with his spouse. He has a cane but has been using a walker more often lately. He has a medishoe on L foot which is nonwt bearing and a boot on r leg with which he can bear wt as tolerated. He cannot drive, his spouse drives. He has home care thru [facility]. He has glucometer and a trilogy vent machine. - Past Family History Father Family Medical History: Cancer Additional Family Medical History / Comment(s): BLADDER CANCER Mother Family Medical History: CVA/TIA, Diabetes Mellitus, Myocardial Infarction (MS) Medications and Allergies Home Medications Medication Instructions Recorded Confirmed Type Latanoprost Ophth [Xalatan 0.005%] 1 drop BOTH EYES HS 01/23/14 11/10/21 History Simvastatin [Zocor] 20 mg PO HS 01/23/14 11/10/21 History Loratadine [Claritin] 10 mg PO DAILY 01/28/16 11/10/21 History metFORMIN HCL [Glucophage] 1,000 mg PO BID 01/28/16 11/10/21 History Morphine Pain Pump 1 dose INTRATHECA CONTINUOUS 05/05/17 11/10/21 History Ferrous Sulfate [Iron (65 MG 325 mg PO BID 10/25/20 11/10/21 History Elemental)] Fluticasone Propionate [Flovent 2 puff INHALATION RT-BID 10/25/20 11/10/21 History Hfa 220 mcg] Furosemide [Lasix] 40 mg PO DAILY 10/25/20 11/10/21 History SUMAtriptan succinate [Imitrex] 50 mg PO DAILY PRN 10/25/20 11/10/21 History INSULIN LISPRO (HumaLOG) [humaLOG] See Protocol SQ ACHS 05/15/21 11/10/21 History Lubiprostone [Amitiza] 24 mcg PO BID 05/15/21 11/10/21 History Warfarin Sodium 10 mg PO HS 05/15/21 11/10/21 History lisinopriL [Zestril] 2.5 mg PO DAILY 05/15/21 11/10/21 History Acetaminophen Tab [Tylenol] 650 mg PO Q6HR PRN tab 07/04/21 11/10/21 Rx HYDROcodone/APAP 10-325MG [[place] 1 tab PO BID #6 tab 07/04/21 11/10/21 Rx 10-325] Pregabalin [Lyrica] 200 mg PO BID #6 cap 07/04/21 11/10/21 Rx Isosorbide Mononitrate ER [Imdur] 30 mg PO DAILY 11/10/21 11/10/21 History Ketoconazole 2% Cream [Nizoral 2%] 1 applic TOPICAL DAILY 11/10/21 11/10/21 History Omeprazole 20 mg PO BID 11/10/21 11/10/21 History Amoxic-Pot Clav 875-125Mg 1 each PO Q12HR 7 Days #14 tab 11/18/21 Rx [Augmentin 875-125] INSULIN ASPART (NovoLOG) [NovoLOG 0 unit SQ ACHS each 11/18/21 Rx (formulary)] Insulin Glargine,Hum.rec.anlog 60 units SQ HS #1 each 11/18/21 Rx [Lantus Solostar Pen] Sodium Chloride 0.65% Nasal [Deep 2 spray NASAL QID PRN ml 11/18/21 Rx Sea (Saline)] Allergies Allergy/AdvReac Type Severity Reaction Status Date / Time adhesive Allergy Rash/Hives Verified 11/10/21 08:41 Physical Exam Vitals: Vital Signs Temp Pulse Resp BP Pulse Ox FiO2 11/11/21 08:00 100.4 F H 69 14 96 50 11/11/21 07:48 66 11/11/21 07:38 66 11/11/21 07:35 50 11/11/21 07:00 67 20 97 50 11/11/21 06:45 70 20 97 11/11/21 06:30 68 23 96 11/11/21 06:15 67 18 97 50 11/11/21 06:00 66 20 98 50 11/11/21 05:45 68 21 97 11/11/21 05:30 68 23 98 11/11/21 05:15 68 23 98 11/11/21 05:00 69 23 98 60 11/11/21 04:45 70 22 98 11/11/21 04:30 68 23 97 11/11/21 04:15 69 28 H 98 11/11/21 04:14 60 11/11/21 04:00 100.4 F H 69 23 97 60 11/11/21 03:45 69 20 97 11/11/21 03:30 69 27 H 97 11/11/21 03:15 70 24 97 11/11/21 03:00 70 26 H 97 60 11/11/21 02:45 69 22 97 11/11/21 02:30 71 25 H 97 11/11/21 02:15 71 22 97 11/11/21 02:00 70 24 97 60 11/11/21 01:45 71 23 96 11/11/21 01:30 71 30 H 97 11/11/21 01:15 71 17 98 11/11/21 01:00 71 27 H 98 11/11/21 00:45 72 22 97 11/11/21 00:41 60 11/11/21 00:30 70 19 97 11/11/21 00:15 70 18 98 11/11/21 00:00 100.8 F H 73 18 98 60 11/10/21 23:45 73 18 98 [id number] 23:30 73 18 98 22 23:15 72 18 98 11/10/21 23:00 72 29 H 98 60 22 22:45 73 18 98 60 [id number] 22:30 73 17 97 11/10/21 22:15 72 22 97 22 22:00 71 18 98 60 22 21:45 69 16 97 1822 21:30 72 15 96 22 21:15 72 18 97 07 21:00 71 18 97 60 22 20:45 72 18 98 11/10/21 20:36 71 0718 20:30 71 18 99 11/10/21 20:20 72 11/10/21 20:15 73 16 97 11/10/21 20:09 60 11/10/21 20:00 100.9 F H 71 19 98 60 11/10/21 19:45 72 18 98 18 19:30 75 27 H 98 11/10/21 19:15 73 20 99 11/10/21 19:00 73 15 115/55 99 11/10/21 18:00 73 18 108/56 98 80 11/10/21 17:15 71 16 98 80 11/10/21 17:00 71 17 98 80 11/10/21 16:45 70 20 105/52 98 80 11/10/21 16:30 71 16 107/52 98 80 11/10/21 16:15 71 16 109/50 98 80 11/10/21 16:00 100.1 F H 72 18 107/50 98 80 11/10/21 15:55 80 11/10/21 15:45 73 15 116/56 98 11/10/21 15:30 70 18 122/50 98 11/10/21 15:15 69 15 103/50 98 11/10/21 15:00 71 15 119/57 99 11/10/21 14:45 71 15 120/53 98 11/10/21 14:39 100 11/10/21 14:30 73 15 119/54 99 11/10/21 14:15 76 14 99 11/10/21 14:00 82 16 99 11/10/21 13:45 87 15 98 100 11/10/21 13:30 102 H 15 95 100 11/10/21 13:15 110 H 16 88/42 95 100 11/10/21 13:00 112 H 28 H 121/62 96 100 11/10/21 12:55 100 11/10/21 12:45 111 H 28 H 115/57 95 100 11/10/21 12:34 100 11/10/21 12:30 99.0 F 110 H 18 159/69 98 100 11/10/21 12:15 109 H 24 132/53 91 L 11/10/21 12:00 112 H 12 116/68 87 L 11/10/21 11:45 108 H 20 92 L 11/10/21 11:30 50 H 94 L 11/10/21 11:29 40 11/10/21 11:24 113 H 22 94 L 11/10/21 11:00 117 H 17 92 L Intake and Output 11/10/21 11/11/21 11/11/21 22:59 06:59 14:59 Intake Total 9342.314 3835.296 701.535 Output Total 1635 2560 480 Balance -528.299 -1257.704 221.535 Intake: IV 800 800 300 Dextrose 5% in Water 1, 800 800 200 000 ml @ 100 mls/hr IV . [id number] ROBERTA with Sodium Bicarb (1 Meq/ml) 150 ml Rx#:[id number] Levofloxacin 250Mg-D5w 0 Pmx 250 mg In Dextrose/ Water 1 50ml.bag @ 50 mls /hr IVPB HS [facility] Rx#: [id number] Piperacillin-Tazobactam 3 100 .375 gm In Sodium Chloride 0.9% 100 ml @ 25 mls/hr IVPB Q8HR [facility] Rx# :[id number] Vancomycin 2,500 mg In 0 Sodium Chloride 0.9% 500 ml 500 ml @ 167 mls/hr IVPB Q24HR@1800 [facility] Rx#: [id number] Intake, IV Titration 306.701 502.296 401.535 Amount Heparin Sod,Pork in 0.45% 188.588 48.066 NaCl 25,000 unit In 0.45 % NaCl 1 250ml.bag @ 7. 602 UNITS/KG/HR 10 mls/hr IV .Q24H [facility] Rx#: [id number] Insulin Regular 100 unit 66.407 23.710 In Sodium Chloride 0.9% 100 ml @ Per Protocol IV .Q0M [facility] Rx#:[id number] Norepinephrine 32 mg In 3.494 135.706 Sodium Chloride 0.9% 218 ml @ 0.05 MCG/KG/MIN 3. 083 mls/hr IV .Q24H [facility] Rx#:[id number] propofoL 1,000 mg In 303.207 247.301 194.053 Empty Bag 1 bag @ 20 MCG/ KG/MIN 15.785 mls/hr IV . Q6H21M [facility] Rx#:[id number] Output: Urine 1635 2560 480 Other: Voiding Method Indwelling Catheter Indwelling Catheter Weight 131 kg 131 kg ABP, PAP, CO, CI - Last 8 Hours Arterial Blood Pressure 126/56 Arterial Blood Pressure 135/58 Arterial Blood Pressure 138/61 Arterial Blood Pressure 134/59 Arterial Blood Pressure 138/58 Arterial Blood Pressure 131/57 Arterial Blood Pressure 129/59 Arterial Blood Pressure 140/61 Arterial Blood Pressure 139/61 Arterial Blood Pressure 134/61 Arterial Blood Pressure 139/61 Arterial Blood Pressure 138/60 Arterial Blood Pressure 136/60 Arterial Blood Pressure 123/55 Arterial Blood Pressure 139/61 Arterial Blood Pressure 133/58 Arterial Blood Pressure 132/59 GENERAL DESCRIPTION: Middle-aged male intubated on the vent. No tachypnea or accessory muscle of respiration use. HEENT: Shows Pallor , no scleral icterus. Patient is orally intubated NECK: Trachea central, no thyromegaly. LUNGS: Unlabored breathing. Decreased intensity of breath sounds HEART: S1, S2, regular rate and rhythm. No loud murmur ABDOMEN: Soft, no tenderness , guarding or rigidity, no organomegaly EXTREMITIES: No edema of feet. SKIN: No rash, no masses palpable. NEUROLOGICAL: The patient is sedated on the vent Results CBC & Chem 7: 11/18/21 06:56 11/18/21 06:56 Labs: Abnormal Lab Results - Last 24 Hours (Table) 11/10/21 11/10/21 11/10/21 Range/Units 11:24 11:50 11:50 WBC (3.8-10.6) k/uL MCHC (31.0-37.0) g/dL RDW (11.5-15.5) % Neutrophils # (1.3-7.7) k/uL Lymphocytes # (1.0-4.8) k/uL Monocytes # (0-1.0) k/uL PT (9.0-12.0) sec INR (<1.2) APTT (22.0-30.0) sec ABG pH (7.35-7.45) ABG pCO2 (35-45) mmHg ABG pO2 (83-108) mmHg ABG HCO3 (21-25) mmol/L ABG Total CO2 (19-24) mmol/L ABG O2 Saturation (94-97) % Carbon Dioxide (22-30) mmol/L BUN (9-20) mg/dL Creatinine (0.66-1.25) mg/dL Glucose (74-99) mg/dL POC Glucose (mg/dL) 457 H (70-110) mg/dL Plasma Lactic Acid Ger 4.1 H* (0.7-2.0) mmol/L Calcium (8.4-10.2) mg/dL Alkaline Phosphatase (38-126) U/L Total Protein (6.3-8.2) g/dL Albumin (3.5-5.0) g/dL Procalcitonin 5.31 H (0.02-0.09) ng/mL 11/10/21 11/10/21 11/10/21 Range/Units 11:59 12:08 13:07 WBC 23.8 H (3.8-10.6) k/uL MCHC 30.6 L (31.0-37.0) g/dL RDW (11.5-15.5) % Neutrophils # 22.2 H (1.3-7.7) k/uL Lymphocytes # 0.5 L (1.0-4.8) k/uL Monocytes # 1.1 H (0-1.0) k/uL PT (9.0-12.0) sec INR (<1.2) APTT (22.0-30.0) sec ABG pH 7.11 L* 7.12 L* (7.35-7.45) ABG pCO2 56 H 66 H (35-45) mmHg ABG pO2 72 L 109 H (83-108) mmHg ABG HCO3 18 L (21-25) mmol/L ABG Total CO2 (19-24) mmol/L ABG O2 Saturation 92.0 L 97.9 H (94-97) % Carbon Dioxide (22-30) mmol/L BUN (9-20) mg/dL Creatinine (0.66-1.25) mg/dL Glucose (74-99) mg/dL POC Glucose (mg/dL) (70-110) mg/dL Plasma Lactic Acid Ger (0.7-2.0) mmol/L Calcium (8.4-10.2) mg/dL Alkaline Phosphatase (38-126) U/L Total Protein (6.3-8.2) g/dL Albumin (3.5-5.0) g/dL Procalcitonin (0.02-0.09) ng/mL 11/10/21 11/10/21 11/10/21 Range/Units 14:00 15:25 17:33 WBC (3.8-10.6) k/uL MCHC (31.0-37.0) g/dL RDW (11.5-15.5) % Neutrophils # (1.3-7.7) k/uL Lymphocytes # (1.0-4.8) k/uL Monocytes # (0-1.0) k/uL PT (9.0-12.0) sec INR (<1.2) APTT (22.0-30.0) sec ABG pH (7.35-7.45) ABG pCO2 (35-45) mmHg ABG pO2 (83-108) mmHg ABG HCO3 (21-25) mmol/L ABG Total CO2 (19-24) mmol/L ABG O2 Saturation (94-97) % Carbon Dioxide (22-30) mmol/L BUN (9-20) mg/dL Creatinine (0.66-1.25) mg/dL Glucose (74-99) mg/dL POC Glucose (mg/dL) 469 H 465 H (70-110) mg/dL Plasma Lactic Acid Ger 3.1 H* (0.7-2.0) mmol/L Calcium (8.4-10.2) mg/dL Alkaline Phosphatase (38-126) U/L Total Protein (6.3-8.2) g/dL Albumin (3.5-5.0) g/dL Procalcitonin (0.02-0.09) ng/mL 11/10/21 11/10/21 11/10/21 Range/Units 18:20 18:20 20:20 WBC (3.8-10.6) k/uL MCHC (31.0-37.0) g/dL RDW (11.5-15.5) % Neutrophils # (1.3-7.7) k/uL Lymphocytes # (1.0-4.8) k/uL Monocytes # (0-1.0) k/uL PT (9.0-12.0) sec INR (<1.2) APTT 44.2 H (22.0-30.0) sec ABG pH (7.35-7.45) ABG pCO2 (35-45) mmHg ABG pO2 (83-108) mmHg ABG HCO3 (21-25) mmol/L ABG Total CO2 (19-24) mmol/L ABG O2 Saturation (94-97) % Carbon Dioxide (22-30) mmol/L BUN (9-20) mg/dL Creatinine (0.66-1.25) mg/dL Glucose (74-99) mg/dL POC Glucose (mg/dL) 412 H (70-110) mg/dL Plasma Lactic Acid Ger 3.5 H* (0.7-2.0) mmol/L Calcium (8.4-10.2) mg/dL Alkaline Phosphatase (38-126) U/L Total Protein (6.3-8.2) g/dL Albumin (3.5-5.0) g/dL Procalcitonin (0.02-0.09) ng/mL 11/10/21 11/10/21 11/10/21 Range/Units 22:03 22:03 22:33 WBC (3.8-10.6) k/uL MCHC (31.0-37.0) g/dL RDW (11.5-15.5) % Neutrophils # (1.3-7.7) k/uL Lymphocytes # (1.0-4.8) k/uL Monocytes # (0-1.0) k/uL PT (9.0-12.0) sec INR (<1.2) APTT (22.0-30.0) sec ABG pH (7.35-7.45) ABG pCO2 (35-45) mmHg ABG pO2 (83-108) mmHg ABG HCO3 (21-25) mmol/L ABG Total CO2 (19-24) mmol/L ABG O2 Saturation (94-97) % Carbon Dioxide (22-30) mmol/L BUN (9-20) mg/dL Creatinine (0.66-1.25) mg/dL Glucose (74-99) mg/dL POC Glucose (mg/dL) 386 H 395 H (70-110) mg/dL Plasma Lactic Acid Ger 2.2 H* (0.7-2.0) mmol/L Calcium (8.4-10.2) mg/dL Alkaline Phosphatase (38-126) U/L Total Protein (6.3-8.2) g/dL Albumin (3.5-5.0) g/dL Procalcitonin (0.02-0.09) ng/mL 11/10/21 11/10/21 11/11/21 Range/Units 23:02 23:57 00:52 WBC (3.8-10.6) k/uL MCHC (31.0-37.0) g/dL RDW (11.5-15.5) % Neutrophils # (1.3-7.7) k/uL Lymphocytes # (1.0-4.8) k/uL Monocytes # (0-1.0) k/uL PT (9.0-12.0) sec INR (<1.2) APTT (22.0-30.0) sec ABG pH (7.35-7.45) ABG pCO2 (35-45) mmHg ABG pO2 (83-108) mmHg ABG HCO3 (21-25) mmol/L ABG Total CO2 (19-24) mmol/L ABG O2 Saturation (94-97) % Carbon Dioxide (22-30) mmol/L BUN (9-20) mg/dL Creatinine (0.66-1.25) mg/dL Glucose (74-99) mg/dL POC Glucose (mg/dL) 372 H 308 H (70-110) mg/dL Plasma Lactic Acid Ger 2.2 H* (0.7-2.0) mmol/L Calcium (8.4-10.2) mg/dL Alkaline Phosphatase (38-126) U/L Total Protein (6.3-8.2) g/dL Albumin (3.5-5.0) g/dL Procalcitonin (0.02-0.09) ng/mL 11/11/21 11/11/21 11/11/21 Range/Units 00:52 02:07 03:02 WBC (3.8-10.6) k/uL MCHC (31.0-37.0) g/dL RDW (11.5-15.5) % Neutrophils # (1.3-7.7) k/uL Lymphocytes # (1.0-4.8) k/uL Monocytes # (0-1.0) k/uL PT (9.0-12.0) sec INR (<1.2) APTT (22.0-30.0) sec ABG pH (7.35-7.45) ABG pCO2 (35-45) mmHg ABG pO2 (83-108) mmHg ABG HCO3 (21-25) mmol/L ABG Total CO2 (19-24) mmol/L ABG O2 Saturation (94-97) % Carbon Dioxide (22-30) mmol/L BUN (9-20) mg/dL Creatinine (0.66-1.25) mg/dL Glucose (74-99) mg/dL POC Glucose (mg/dL) 268 H 254 H 216 H (70-110) mg/dL Plasma Lactic Acid Ger (0.7-2.0) mmol/L Calcium (8.4-10.2) mg/dL Alkaline Phosphatase (38-126) U/L Total Protein (6.3-8.2) g/dL Albumin (3.5-5.0) g/dL Procalcitonin (0.02-0.09) ng/mL 11/11/21 11/11/21 11/11/21 Range/Units 03:58 04:00 04:00 WBC 21.7 H (3.8-10.6) k/uL MCHC (31.0-37.0) g/dL RDW 16.1 H (11.5-15.5) % Neutrophils # 19.1 H (1.3-7.7) k/uL Lymphocytes # 0.8 L (1.0-4.8) k/uL Monocytes # 1.2 H (0-1.0) k/uL PT (9.0-12.0) sec INR (<1.2) APTT (22.0-30.0) sec ABG pH (7.35-7.45) ABG pCO2 (35-45) mmHg ABG pO2 (83-108) mmHg ABG HCO3 (21-25) mmol/L ABG Total CO2 (19-24) mmol/L ABG O2 Saturation (94-97) % Carbon Dioxide 32 H (22-30) mmol/L BUN 38 H (9-20) mg/dL Creatinine 1.54 H (0.66-1.25) mg/dL Glucose 217 H (74-99) mg/dL POC Glucose (mg/dL) 223 H (70-110) mg/dL Plasma Lactic Acid Ger (0.7-2.0) mmol/L Calcium 8.2 L (8.4-10.2) mg/dL Alkaline Phosphatase 155 H (38-126) U/L Total Protein 5.4 L (6.3-8.2) g/dL Albumin 2.9 L (3.5-5.0) g/dL Procalcitonin (0.02-0.09) ng/mL 11/11/21 11/11/21 11/11/21 Range/Units 04:56 05:58 06:04 WBC (3.8-10.6) k/uL MCHC (31.0-37.0) g/dL RDW (11.5-15.5) % Neutrophils # (1.3-7.7) k/uL Lymphocytes # (1.0-4.8) k/uL Monocytes # (0-1.0) k/uL PT (9.0-12.0) sec INR (<1.2) APTT (22.0-30.0) sec ABG pH (7.35-7.45) ABG pCO2 53 H (35-45) mmHg ABG pO2 (83-108) mmHg ABG HCO3 31 H (21-25) mmol/L ABG Total CO2 33 H (19-24) mmol/L ABG O2 Saturation 98.3 H (94-97) % Carbon Dioxide (22-30) mmol/L BUN (9-20) mg/dL Creatinine (0.66-1.25) mg/dL Glucose (74-99) mg/dL POC Glucose (mg/dL) 204 H 213 H (70-110) mg/dL Plasma Lactic Acid Ger (0.7-2.0) mmol/L Calcium (8.4-10.2) mg/dL Alkaline Phosphatase (38-126) U/L Total Protein (6.3-8.2) g/dL Albumin (3.5-5.0) g/dL Procalcitonin (0.02-0.09) ng/mL 11/11/21 11/11/21 11/11/21 Range/Units 06:05 07:00 08:02 WBC (3.8-10.6) k/uL MCHC (31.0-37.0) g/dL RDW (11.5-15.5) % Neutrophils # (1.3-7.7) k/uL Lymphocytes # (1.0-4.8) k/uL Monocytes # (0-1.0) k/uL PT 14.1 H (9.0-12.0) sec INR 1.4 H (<1.2) APTT 37.9 H (22.0-30.0) sec ABG pH (7.35-7.45) ABG pCO2 (35-45) mmHg ABG pO2 (83-108) mmHg ABG HCO3 (21-25) mmol/L ABG Total CO2 (19-24) mmol/L ABG O2 Saturation (94-97) % Carbon Dioxide (22-30) mmol/L BUN (9-20) mg/dL Creatinine (0.66-1.25) mg/dL Glucose (74-99) mg/dL POC Glucose (mg/dL) 200 H 199 H (70-110) mg/dL Plasma Lactic Acid Ger (0.7-2.0) mmol/L Calcium (8.4-10.2) mg/dL Alkaline Phosphatase (38-126) U/L Total Protein (6.3-8.2) g/dL Albumin (3.5-5.0) g/dL Procalcitonin (0.02-0.09) ng/mL 11/11/21 11/11/21 Range/Units 09:00 10:00 WBC (3.8-10.6) k/uL MCHC (31.0-37.0) g/dL RDW (11.5-15.5) % Neutrophils # (1.3-7.7) k/uL Lymphocytes # (1.0-4.8) k/uL Monocytes # (0-1.0) k/uL PT (9.0-12.0) sec INR (<1.2) APTT (22.0-30.0) sec ABG pH (7.35-7.45) ABG pCO2 (35-45) mmHg ABG pO2 (83-108) mmHg ABG HCO3 (21-25) mmol/L ABG Total CO2 (19-24) mmol/L ABG O2 Saturation (94-97) % Carbon Dioxide (22-30) mmol/L BUN (9-20) mg/dL Creatinine (0.66-1.25) mg/dL Glucose (74-99) mg/dL POC Glucose (mg/dL) 209 H 174 H (70-110) mg/dL Plasma Lactic Acid Ger (0.7-2.0) mmol/L Calcium (8.4-10.2) mg/dL Alkaline Phosphatase (38-126) U/L Total Protein (6.3-8.2) g/dL Albumin (3.5-5.0) g/dL Procalcitonin (0.02-0.09) ng/mL Microbiology - Last 24 Hours (Table) 11/10/21 06:45 Blood Culture - Preliminary Blood No Growth after 24 hours 11/10/21 06:45 Blood Culture - Preliminary Blood No Growth after 24 hours Assessment and Plan (1) Community acquired pneumonia Status: Acute Code(s): J18.9 - PNEUMONIA, UNSPECIFIED ORGANISM SNOMED Code(s): 389992919 (2) Non-pressure chronic ulcer of other part of left foot with fat layer exposed Status: Acute Code(s): L97.522 - NON-PRS CHRONIC ULCER OTH PRT LEFT FOOT W FAT LAYER EXPOSED SNOMED Code(s): 678235729 Plan: 1patient presented to hospital with sepsis and respiratory have fever elevated white count with predominant respiratory symptoms concerning for likely pneumonia in this patient who has been in of the hospital only to cover for resistant gram-positive as well as gram-negative and a question of aspiration etiology in this patient was status post bronchoscopy and lavage and was cultures are pending. 2patient with left diabetic foot ulcer with evidence of any cellulitis recommend local wound care. 3patient to continue with the vancomycin and Zosyn however will monitor his kidney function closely and adjust antibiotic on the basis of culture. 4local wound care to the left foot plantar wound with Aquacel silver dressing change every 48 hour. We will follow on clinical condition and cultures to further adjust medication if needed Thank you for this consultation will follow this patient along with you Time with Patient: Greater than 30
[2021-11-11 23:04] LABS: Glucose,Whole Blood 162 mg/dL (70-110)
[2021-11-12] MEDS: PIPERACILLIN-TAZOBACTAM 3.375 GM in SODIUM CHLORIDE 0.9% 100 ML IVPB SCH ×4 (00:43→23:26)
[2021-11-12 01:00] LABS: Glucose,Whole Blood 148 mg/dL (70-110)
[2021-11-12] MEDS: HYDROmorphone 0.5 MG/0.5 ML SYRINGE IVP PRN ×2 (03:25→06:47)
[2021-11-12 03:35] LABS: Glucose,Whole Blood 147 mg/dL (70-110)
[2021-11-12] MEDS: VANCOMYCIN 2,000 MG in SODIUM CHLORIDE 0.9% 500 ML 500 ML IVPB SCH ×2 (04:02→16:32)
[2021-11-12 05:23] LABS: Glucose,Whole Blood 179 mg/dL (70-110)
[2021-11-12 05:47] LABS: ALT 21 U/L (4-49); AST 20 U/L (17-59); African American GFR (CKD) >90 (>60 ml/min/1.73 sqM); Albumin 2.4 g/dL (3.5-5.0); Alkaline Phosphatase 118 U/L (38-126); Anion Gap -1 mmol/L; Blood Urea Nitrogen 20 mg/dL (9-20); Calcium 7.7 mg/dL (8.4-10.2); Carbon Dioxide 33 mmol/L (22-30); Chloride 105 mmol/L (98-107); Glucose 177 mg/dL (74-99); Non-African American GFR(CKD) 87 (>60 ml/min/1.73 sqM); Phosphorus 2.5 mg/dL (2.5-4.5); Potassium 4.1 mmol/L (3.5-5.1); Sodium 137 mmol/L (137-145); Total Bilirubin 0.5 mg/dL (0.2-1.3); Total Protein 4.6 g/dL (6.3-8.2)
[2021-11-12 05:53] LABS: ABG Base Excess 6.9 mmol/L; ABG HCO3 32 mmol/L (21-25); ABG Oxygen Saturation 97.1 % (94-97); ABG PCO2 55 mmHg (35-45); ABG PH 7.38 (7.35-7.45); ABG PO2 84 mmHg (83-108); ABG TCO2 34 mmol/L (19-24); Allen Test Performed? Yes
[2021-11-12] MEDS: ENOXAPARIN 120 MG/0.8 ML SYRINGE SQ SCH ×2 (06:09→18:56)
[2021-11-12 06:14] LABS: Glucose,Whole Blood 154 mg/dL (70-110)
[2021-11-12 06:27] LABS: Anisocytosis Slight; HGB 11.1 gm/dL (13.0-17.5); MCH 29.6 pg (25.0-35.0); MCHC 32.6 g/dL (31.0-37.0); MCV 90.9 fL (80.0-100.0); Mean Platelet Volume 9.1; Platelet Count 123 k/uL (150-450); RBC 3.74 m/uL (4.30-5.90); RDW 16.1 % (11.5-15.5); WBC 11.6 k/uL (3.8-10.6)
[2021-11-12 06:55] LABS: Glucose,Whole Blood 190 mg/dL (70-110)
[2021-11-12] MEDS: INSULIN REGULAR 100 UNIT in SODIUM CHLORIDE 0.9% 100 ML IV SCH ×2 (06:55→23:17)
[2021-11-12 07:52] LABS: Glucose,Whole Blood 197 mg/dL (70-110)
[2021-11-12] MEDS: IPRATROPIUM-ALBUTEROL 3 ML NEB INHALATION SCH ×4 (07:54→19:25)
--- NOTE | 2021-11-12 08:01 | XR ---
EXAMINATION TYPE: XR chest 1V portable DATE OF EXAM: 11/12/2021 COMPARISON: 11/11/2021 HISTORY: Tube placement TECHNIQUE: Single frontal view of the chest is obtained. FINDINGS: bilateral consolidation and small effusion. ET tube approximately 3 cm above emre. NG tu be seen coursing the abdomen and central line seen overlying the right atrium. No sizable pneumothora x. A limited inspiration. IMPRESSION: Stable bilateral airspace disease with small effusion. Correlate for pneumonia for CHF.
[2021-11-12] MEDS: CHLORHEXIDINE GLUCONATE 15 ML CUP MUCOUS MEM SCH ×2 (08:32→20:15)
[2021-11-12] MEDS: PANTOPRAZOLE 40 MG/10 ML VIAL IV SCH (08:32)
[2021-11-12 09:22] LABS: Glucose,Whole Blood 180 mg/dL (70-110)
--- NOTE | 2021-11-12 09:40 | P.PN ---
Subjective Progress Note Date: 11/12/21 The patient is a 51-year-old male who is currently admitted to the hospital with worsening shortness of breath. The patient developed acute hypoxic respiratory failure and was subsequently intubated within the last 24 hours. Initial checks x-ray showed bilateral pneumonia. Cardiology was consult for congestive heart failure, however BNP was not elevated. Recent echocardiogram revealed LV function at 65% and without significant valvular abnormalities. Records reviewed from a recent admission at [facility], which showed abnormal stress testing with small anterior ischemia. The patient was sub sequently then transferred to [facility] where he underwent coronary angiogram. He was found to have 20% lesion in his left main as well as a 30% lesion in his proximal LAD with sluggish distal flow. GENERAL: Ill-appearing, well-nourished and in no acute distress. Currently sedated on ventilator. NECK: Supple without JVD or thyromegaly. LUNGS: Breath sounds rhonchorous to auscultation bilaterally. Respiration equal and unlabored. Intubated. HEART: Regular rate and rhythm without murmurs, rubs or gallops. S1 and S2 heard. EXTREMITIES: Normal range of motion, no edema. No clubbing or cyanosis. Peripheral pulses intact and strong. VITALS: Blood pressure 124/55, respiratory rate 24, pulse 71, SpO2 95% on 50% FiO2 TELEMETRY: Sinus rhythm with heart rate in the 60s LABS: WBC 11.6, hemoglobin 11.1, hematocrit 34.0, platelet 123, sodium 137, potassium 4.1, BUN 20, creatinine 1, mag 2, AST 20, ALT T 21 IMPRESSION: Acute hypoxic respiratory failure, secondary to pneumonia Septicemia with leukocytosis Mild coronary artery disease, recent angiogram at [facility] History of hypertension History diabetes History of dyslipidemia History of factor V Leiden History of DVT PLAN: No further recommendations per the cardiac standpoint Long-term anticoagulation per primary team with history of DVT and factor V 5 Leiden We'll continue to follow on an as-needed basis I am dictating on behalf of Dr Mike Jasso's history/physical and assessment/plan. Objective - Vital Signs Vital signs: Vital Signs Temp 99.6 F 11/12/21 08:00 Pulse 71 11/12/21 09:00 Resp 24 11/12/21 09:00 BP 124/55 11/12/21 09:00 Pulse Ox 95 11/12/21 09:00 FiO2 50 11/12/21 09:00 Intake & Output 11/11/21 11/12/21 11/12/21 18:59 06:59 18:59 Intake Total 2374.542 2115.810 346.689 Output Total 2960 1760 110 Balance -585.458 355.810 236.689 Weight 132.4 kg 127.8 kg Intake: IV 1475 1586 156 Arterial Line @ 3ml/hr 36 6 Dextrose 5% in Water 1, 300 000 ml @ 100 mls/hr IV . [id number] [facility] with Sodium Bicarb (1 Meq/ml) 150 ml Rx#:[id number] Levofloxacin 250Mg-D5w 0 50 Pmx 250 mg In Dextrose/ Water 1 50ml.bag @ 50 mls /hr IVPB HS [facility] Rx#: [id number] Piperacillin-Tazobactam 3 300 100 .375 gm In Sodium Chloride 0.9% 100 ml @ 25 mls/hr IVPB Q8HR [facility] Rx# :[id number] Sodium Chloride 0.9% 1, 375 900 150 000 ml @ 75 mls/hr IV . [id number] [facility] Rx#:[id number] Vancomycin 2,500 mg In 500 500 Sodium Chloride 0.9% 500 ml 500 ml @ 167 mls/hr IVPB Q24HR@1800 [facility] Rx#: [id number] Intake, IV Titration 799.542 349.810 124.689 Amount Heparin Sod,Pork in 0.45% 48.066 NaCl 25,000 unit In 0.45 % NaCl 1 250ml.bag @ 7. 602 UNITS/KG/HR 10 mls/hr IV .Q24H [facility] Rx#: [id number] Insulin Regular 100 unit 74.394 42.177 7.171 In Sodium Chloride 0.9% 100 ml @ Per Protocol IV .Q0M [facility] Rx#:[id number] Norepinephrine 32 mg In 37.265 51.333 7.680 Sodium Chloride 0.9% 218 ml @ 0.05 MCG/KG/MIN 3.07 mls/hr IV .Q24H [facility] Rx#: [id number] Norepinephrine 32 mg In 156.670 Sodium Chloride 0.9% 218 ml @ 0.05 MCG/KG/MIN 3. 083 mls/hr IV .Q24H [facility] Rx#:[id number] propofoL 1,000 mg In 483.147 256.300 109.838 Empty Bag 1 bag @ 20 MCG/ KG/MIN 15.785 mls/hr IV . Q6H21M [facility] Rx#:[id number] Tube Feeding 40 180 66 Other 60 Output: Urine 2960 1760 110 Other: Voiding Method Indwelling Catheter Indwelling Catheter ABP, PAP, CO, CI - Last Documented Arterial Blood Pressure 140/67 - Labs CBC & Chem 7: 11/12/21 05:18 11/12/21 05:18 Labs: Abnormal Lab Results - Last 24 Hours (Table) 11/11/21 11/11/21 11/11/21 Range/Units 10:00 11:00 12:05 WBC (3.8-10.6) k/uL RBC (4.30-5.90) m/uL Hgb (13.0-17.5) gm/dL Hct (39.0-53.0) % RDW (11.5-15.5) % Plt Count (150-450) k/uL APTT (22.0-30.0) sec ABG pCO2 (35-45) mmHg ABG HCO3 (21-25) mmol/L ABG Total CO2 (19-24) mmol/L ABG O2 Saturation (94-97) % Carbon Dioxide (22-30) mmol/L Glucose (74-99) mg/dL POC Glucose (mg/dL) 174 H 168 H 192 H (70-110) mg/dL Calcium (8.4-10.2) mg/dL Total Protein (6.3-8.2) g/dL Albumin (3.5-5.0) g/dL 11/11/21 11/11/21 11/11/21 Range/Units 12:43 13:36 15:04 WBC (3.8-10.6) k/uL RBC (4.30-5.90) m/uL Hgb (13.0-17.5) gm/dL Hct (39.0-53.0) % RDW (11.5-15.5) % Plt Count (150-450) k/uL APTT 51.8 H (22.0-30.0) sec ABG pCO2 (35-45) mmHg ABG HCO3 (21-25) mmol/L ABG Total CO2 (19-24) mmol/L ABG O2 Saturation (94-97) % Carbon Dioxide (22-30) mmol/L Glucose (74-99) mg/dL POC Glucose (mg/dL) 175 H 178 H (70-110) mg/dL Calcium (8.4-10.2) mg/dL Total Protein (6.3-8.2) g/dL Albumin (3.5-5.0) g/dL 11/11/21 11/11/21 11/11/21 Range/Units 16:10 17:11 18:06 WBC (3.8-10.6) k/uL RBC (4.30-5.90) m/uL Hgb (13.0-17.5) gm/dL Hct (39.0-53.0) % RDW (11.5-15.5) % Plt Count (150-450) k/uL APTT (22.0-30.0) sec ABG pCO2 (35-45) mmHg ABG HCO3 (21-25) mmol/L ABG Total CO2 (19-24) mmol/L ABG O2 Saturation (94-97) % Carbon Dioxide (22-30) mmol/L Glucose (74-99) mg/dL POC Glucose (mg/dL) 155 H 160 H 130 H (70-110) mg/dL Calcium (8.4-10.2) mg/dL Total Protein (6.3-8.2) g/dL Albumin (3.5-5.0) g/dL 11/11/21 11/11/21 11/11/21 Range/Units 18:55 20:15 21:09 WBC (3.8-10.6) k/uL RBC (4.30-5.90) m/uL Hgb (13.0-17.5) gm/dL Hct (39.0-53.0) % RDW (11.5-15.5) % Plt Count (150-450) k/uL APTT (22.0-30.0) sec ABG pCO2 (35-45) mmHg ABG HCO3 (21-25) mmol/L ABG Total CO2 (19-24) mmol/L ABG O2 Saturation (94-97) % Carbon Dioxide (22-30) mmol/L Glucose (74-99) mg/dL POC Glucose (mg/dL) 159 H 146 H 148 H (70-110) mg/dL Calcium (8.4-10.2) mg/dL Total Protein (6.3-8.2) g/dL Albumin (3.5-5.0) g/dL 11/11/21 11/12/21 11/12/21 Range/Units 23:02 00:58 03:33 WBC (3.8-10.6) k/uL RBC (4.30-5.90) m/uL Hgb (13.0-17.5) gm/dL Hct (39.0-53.0) % RDW (11.5-15.5) % Plt Count (150-450) k/uL APTT (22.0-30.0) sec ABG pCO2 (35-45) mmHg ABG HCO3 (21-25) mmol/L ABG Total CO2 (19-24) mmol/L ABG O2 Saturation (94-97) % Carbon Dioxide (22-30) mmol/L Glucose (74-99) mg/dL POC Glucose (mg/dL) 162 H 148 H 147 H (70-110) mg/dL Calcium (8.4-10.2) mg/dL Total Protein (6.3-8.2) g/dL Albumin (3.5-5.0) g/dL 11/12/21 11/12/21 11/12/21 Range/Units 05:18 05:18 05:21 WBC 11.6 H (3.8-10.6) k/uL RBC 3.74 L (4.30-5.90) m/uL Hgb 11.1 L (13.0-17.5) gm/dL Hct 34.0 L (39.0-53.0) % RDW 16.1 H (11.5-15.5) % Plt Count 123 L (150-450) k/uL APTT (22.0-30.0) sec ABG pCO2 (35-45) mmHg ABG HCO3 (21-25) mmol/L ABG Total CO2 (19-24) mmol/L ABG O2 Saturation (94-97) % Carbon Dioxide 33 H (22-30) mmol/L Glucose 177 H (74-99) mg/dL POC Glucose (mg/dL) 179 H (70-110) mg/dL Calcium 7.7 L (8.4-10.2) mg/dL Total Protein 4.6 L (6.3-8.2) g/dL Albumin 2.4 L (3.5-5.0) g/dL 11/12/21 11/12/21 11/12/21 Range/Units 05:49 06:13 06:54 WBC (3.8-10.6) k/uL RBC (4.30-5.90) m/uL Hgb (13.0-17.5) gm/dL Hct (39.0-53.0) % RDW (11.5-15.5) % Plt Count (150-450) k/uL APTT (22.0-30.0) sec ABG pCO2 55 H (35-45) mmHg ABG HCO3 32 H (21-25) mmol/L ABG Total CO2 34 H (19-24) mmol/L ABG O2 Saturation 97.1 H (94-97) % Carbon Dioxide (22-30) mmol/L Glucose (74-99) mg/dL POC Glucose (mg/dL) 154 H 190 H (70-110) mg/dL Calcium (8.4-10.2) mg/dL Total Protein (6.3-8.2) g/dL Albumin (3.5-5.0) g/dL 11/12/21 11/12/21 Range/Units 07:51 09:21 WBC (3.8-10.6) k/uL RBC (4.30-5.90) m/uL Hgb (13.0-17.5) gm/dL Hct (39.0-53.0) % RDW (11.5-15.5) % Plt Count (150-450) k/uL APTT (22.0-30.0) sec ABG pCO2 (35-45) mmHg ABG HCO3 (21-25) mmol/L ABG Total CO2 (19-24) mmol/L ABG O2 Saturation (94-97) % Carbon Dioxide (22-30) mmol/L Glucose (74-99) mg/dL POC Glucose (mg/dL) 197 H 180 H (70-110) mg/dL Calcium (8.4-10.2) mg/dL Total Protein (6.3-8.2) g/dL Albumin (3.5-5.0) g/dL Microbiology - Last 24 Hours (Table) 11/10/21 06:45 Blood Culture - Preliminary Blood No Growth after 48 hours 11/10/21 06:45 Blood Culture - Preliminary Blood No Growth after 48 hours 11/11/21 11:00 Gram Stain - Preliminary Bronchoalviolar Lavage - Left Bronchial Washings Culture - Preliminary 11/11/21 11:00 Fungal Culture - Preliminary Bronchoalviolar Lavage - Left 11/11/21 11:00 Legionella Culture - Preliminary Bronchial Washings - Left 11/11/21 11:00 Acid Fast Bacilli Culture - Preliminary Bronchoalviolar Lavage - Left
[2021-11-12 10:13] LABS: Glucose,Whole Blood 185 mg/dL (70-110)
--- NOTE | 2021-11-12 10:25 | P.PN ---
Subjective Progress Note Date: 11/12/21 This is a 51-year-old male patient came into the emergency department because of chest pain. Note that the patient was in [facility] for chest pain approximately week ago and the patient was given a cardiac evaluation which included a cardiac stress and that came back abnormal and following that the patient was given a cardiac catheterization that showed nonocclusive disease and no intervention was done. Yesterday, the patient came in to the emergency department as the patient was complaining of increased shortness of breath and chest pain. His chest x-ray showed some cardiomegaly and increased bilateral interstitial pulmonary infiltrates which also raises the concern for an underlying pneumonia. While in the emergency, the patient started having episodes of fever and he became more obtunded and short of breath. At that point, the patient was started on BiPAP for respiratory support. The patient was started on a BiPAP at a pressure of 14/5 cm water and FiO2 of 40%. The pH was at 7.17 with a pCO2 of 64 and pO2 of 83 and this was not an FiO2 of 50%. At a time of my arrival, the patient's breathing was still labored and the patient was quite lethargic and obtunded. He was able to generate an adequate tidal volume of 400 mL. Nevertheless, the patient was still having shortness of breath and her breathing was labored with a high minute ventilation and a high respiratory rate. The patient was already given a total of 2 L of IV fluid and the patient was given a combination of Rocephin and Zithromax covering for a pneumonia. The workup that has been done showed a white cell count of 23 with a hemoglobin of 13.7 and a platelet count of 219. Normal coagulation profile. Lactic acid level was at 4.1. Blood sugars were elevated at around 370. UA showed +2 glucose, +1 protein and +9 white cells. The coagulation profile was within normal limits. COVID 19 by PCR came back also negative. After being transferred to the intensive care unit, the patient was monitored very closely and subsequently was decided to LAD and intubated the patient put him on a mechanical ventilator. Note that the patient had a triple lumen catheter established in the emergency department. The patient was also started on low- dose norepinephrine running at 0.05 mg/kg per minute. He was started on bicarb infusion. Noted the patient is a chronic CO2 retainer patient has a relatively elevated serum bicarbonate level at baseline. On today's evaluation of 11/11/2021, the patient is being seen for a follow-up. The patient remains intubated on mechanical ventilator. On today's evaluation, the patient remains on a propofol which is running at 50 mcg/kg per minute. The patient is on a mechanical ventilator on assist control mode at the rate of 18 without volume of 400 and FiO2 of 50% with a PEEP of 5. The blood gases showed a pH of 7.38 with a pCO2 of 53 and pO2 of 11. The peak airway pressure is 29. His pro-calcitonin level is at 5.3 supporting the possibility of underlying bacterial infection and same time the patient was having episodes of fever with a T-max of 101.4F. Note that the patient's overall acid base status is improved as the patient was also being given bicarb infusion rate of 100 mL an hour. The blood gases from today shows improvement with a pH of 7.38 And a serum bicarbonate is currently at 32 which is very close to the patient's baseline. The patient has been adequately resuscitated IV fluids. He remains on norepinephrine infusion running at 0.1 g respiratory per minute. Urine output is adequate. The patient had an echocardiogram that showed a preserved LV function with an ejection fraction of 65%. The patient remains on insulin d rip at 7.5 units an hour and the patient is also on IV heparin. On today's evaluation, the white cell count of 21 with a hemoglobin 15.7. Serum bicarb is at 32 with a sodium level of 139 and a BUN of 38 a CAT scan of 1.5. No other significant events overnight. Antibiotic coverage has been broadened to include a combination of Zosyn, Levaquin and vancomycin. Note that the patient's cultures are all negative thus far. Blood sugars under better control for now. 11/12/2021, the patient is being seen for a follow-up. The patient remains intubated on a mechanical ventilator for bilateral pneumonia and sepsis. This morning, the patient remains on propofol which is running at 40 mcg/kg per minute. The patient has been adequately sedated at this point in time and the patient is full asynchronous with a mechanical ventilator. The patient remains on a mechanical ventilator and an assist-control mode at the rate of 18, tidal volume of 400, FiO2 of 50% with a PEEP of 5. Current oxygen saturations around 96%. The blood gases from today is showing a pH of 7.38 with a pCO2 of 55 and pO2 of 84. The patient underwent a bronchoscopy yesterday. The bronchioloalveolar lavage from the left lung was collected and the cultures are still pending for now. Meanwhile, the patient is covered with triple antibiotic coverage and he is on a combination of Zosyn, vancomycin and Levaquin. He is afebrile for now. He is having a low-grade fever however with a T-max of 99.6 overnight. He is on pressors and 0 was receiving pressors at low-dose levothyroid at 0.05 mcg/kg per minute and norepinephrine infusion was discontinued this morning. He remains in normal saline at the rate of 75 mL's an hour. He is on insulin drip at 6 units an hour for blood sugar control. IV heparin has been discontinued. The patient is currently on Lovenox at a dose of 120 mg every 12 hours. The current white cell count 11.6 with a hemoglobin of 11.1 and a platelet count of 123. BUN is at 20 with a creatinine of 1.0. Sodium is at 137 Naren glucose at 177, calcium is at 7.7 and a phosphorus is 2.1. Pro-calcitonin level is gradually improving. It was as high as 5.3 currently is down to 2.3. Meanwhile, the patient's chest x-ray from today is showing bilateral pulmonary infiltrates which is essentially unchanged compared to yesterday. All of the lites are in good location including the right IJ triple-lumen catheter and the orogastric and orotracheal tube. The patient is receiving enteral feeding with vital HF at the rate of 30 mL an hour which is currently at goal. Objective - Vital Signs Vital signs: Vital Signs Temp 99.6 F 11/12/21 08:00 Pulse 85 11/12/21 10:00 Resp 19 11/12/21 10:00 BP 124/55 11/12/21 10:00 Pulse Ox 94 L 11/12/21 10:00 FiO2 50 11/12/21 10:00 Intake & Output 11/11/21 11/12/21 11/12/21 18:59 06:59 18:59 Intake Total 2374.542 2115.810 457.689 Output Total 2960 1760 170 Balance -585.458 355.810 287.689 Weight 132.4 kg 127.8 kg Intake: IV 1475 1586 234 Arterial Line @ 3ml/hr 36 9 Dextrose 5% in Water 1, 300 000 ml @ 100 mls/hr IV . [id number] ROBERTA with Sodium Bicarb (1 Meq/ml) 150 ml Rx#:[id number] Levofloxacin 250Mg-D5w 0 50 Pmx 250 mg In Dextrose/ Water 1 50ml.bag @ 50 mls /hr IVPB HS [facility] Rx#: [id number] Piperacillin-Tazobactam 3 300 100 .375 gm In Sodium Chloride 0.9% 100 ml @ 25 mls/hr IVPB Q8HR [facility] Rx# :[id number] Sodium Chloride 0.9% 1, 375 900 225 000 ml @ 75 mls/hr IV . [id number] [facility] Rx#:[id number] Vancomycin 2,500 mg In 500 500 Sodium Chloride 0.9% 500 ml 500 ml @ 167 mls/hr IVPB Q24HR@1800 [facility] Rx#: [id number] Intake, IV Titration 799.542 349.810 124.689 Amount Heparin Sod,Pork in 0.45% 48.066 NaCl 25,000 unit In 0.45 % NaCl 1 250ml.bag @ 7. 602 UNITS/KG/HR 10 mls/hr IV .Q24H [facility] Rx#: [id number] Insulin Regular 100 unit 74.394 42.177 7.171 In Sodium Chloride 0.9% 100 ml @ Per Protocol IV .Q0M [facility] Rx#:[id number] Norepinephrine 32 mg In 37.265 51.333 7.680 Sodium Chloride 0.9% 218 ml @ 0.05 MCG/KG/MIN 3.07 mls/hr IV .Q24H [facility] Rx#: [id number] Norepinephrine 32 mg In 156.670 Sodium Chloride 0.9% 218 ml @ 0.05 MCG/KG/MIN 3. 083 mls/hr IV .Q24H ONE Rx#:[id number] propofoL 1,000 mg In 483.147 256.300 109.838 Empty Bag 1 bag @ 20 MCG/ KG/MIN 15.785 mls/hr IV . Q6H21M [facility] Rx#:[id number] Tube Feeding 40 180 99 Other 60 Output: Urine 2960 1760 170 Other: Voiding Method Indwelling Catheter Indwelling Catheter ABP, PAP, CO, CI - Last Documented Arterial Blood Pressure 95/47 - Exam Patient is currently intubated on a mechanical ventilator, the patient is sedated with propofol and the patient is calm and comfortable, The patient is obese and the patient has a body mass index of 46. Intubated on a mechanical ventilator Head exam was generally normal. There was no scleral icterus or corneal arcus. Mucous membranes were moist. Neck was supple and without jugular venous distension, thyromegaly, or carotid bruits. Carotids were easily palpable bilaterally. There was no adenopathy. The patient has orogastric and orotracheal tube in place Lungs sounds are diminished bilaterally and the patient has scattered rhonchi heard throughout the lung garcia and the patient scattered crackles and wheezes. Cardiac exam revealed the PMI to be normally situated and sized. The rhythm was regular and no extrasystoles were noted during several minutes of auscultation. The first and second heart sounds were normal and physiologic splitting of the second heart sound was noted. There were no murmurs, rubs, clicks, or gallops. Abdominal exam revealed normal bowel sounds. The abdomen was soft, non-tender, and without masses, organomegaly, or appreciable enlargement of the abdominal aorta. Examination of the extremities revealed easily palpable radial, femoral and pedal pulses. There was no cyanosis, clubbing or edema. Examination of the skin revealed no evidence of significant rashes, suspicious appearing nevi or other concerning lesions. Neurologically the patient was quite obtunded prior to her intubation. Currently is on propofol. His neurologic exam was apparently nonfocal prior to the intubation process. - Labs CBC & Chem 7: 11/12/21 05:18 11/12/21 05:18 Labs: Abnormal Lab Results - Last 24 Hours (Table) 11/11/21 11/11/21 11/11/21 Range/Units 11:00 12:05 12:43 WBC (3.8-10.6) k/uL RBC (4.30-5.90) m/uL Hgb (13.0-17.5) gm/dL Hct (39.0-53.0) % RDW (11.5-15.5) % Plt Count (150-450) k/uL APTT 51.8 H (22.0-30.0) sec ABG pCO2 (35-45) mmHg ABG HCO3 (21-25) mmol/L ABG Total CO2 (19-24) mmol/L ABG O2 Saturation (94-97) % Carbon Dioxide (22-30) mmol/L Glucose (74-99) mg/dL POC Glucose (mg/dL) 168 H 192 H (70-110) mg/dL Calcium (8.4-10.2) mg/dL Total Protein (6.3-8.2) g/dL Albumin (3.5-5.0) g/dL Procalcitonin (0.02-0.09) ng/mL 11/11/21 11/11/21 11/11/21 Range/Units 13:36 15:04 16:10 WBC (3.8-10.6) k/uL RBC (4.30-5.90) m/uL Hgb (13.0-17.5) gm/dL Hct (39.0-53.0) % RDW (11.5-15.5) % Plt Count (150-450) k/uL APTT (22.0-30.0) sec ABG pCO2 (35-45) mmHg ABG HCO3 (21-25) mmol/L ABG Total CO2 (19-24) mmol/L ABG O2 Saturation (94-97) % Carbon Dioxide (22-30) mmol/L Glucose (74-99) mg/dL POC Glucose (mg/dL) 175 H 178 H 155 H (70-110) mg/dL Calcium (8.4-10.2) mg/dL Total Protein (6.3-8.2) g/dL Albumin (3.5-5.0) g/dL Procalcitonin (0.02-0.09) ng/mL 11/11/21 11/11/21 11/11/21 Range/Units 17:11 18:06 18:55 WBC (3.8-10.6) k/uL RBC (4.30-5.90) m/uL Hgb (13.0-17.5) gm/dL Hct (39.0-53.0) % RDW (11.5-15.5) % Plt Count (150-450) k/uL APTT (22.0-30.0) sec ABG pCO2 (35-45) mmHg ABG HCO3 (21-25) mmol/L ABG Total CO2 (19-24) mmol/L ABG O2 Saturation (94-97) % Carbon Dioxide (22-30) mmol/L Glucose (74-99) mg/dL POC Glucose (mg/dL) 160 H 130 H 159 H (70-110) mg/dL Calcium (8.4-10.2) mg/dL Total Protein (6.3-8.2) g/dL Albumin (3.5-5.0) g/dL Procalcitonin (0.02-0.09) ng/mL 11/11/21 11/11/21 11/11/21 Range/Units 20:15 21:09 23:02 WBC (3.8-10.6) k/uL RBC (4.30-5.90) m/uL Hgb (13.0-17.5) gm/dL Hct (39.0-53.0) % RDW (11.5-15.5) % Plt Count (150-450) k/uL APTT (22.0-30.0) sec ABG pCO2 (35-45) mmHg ABG HCO3 (21-25) mmol/L ABG Total CO2 (19-24) mmol/L ABG O2 Saturation (94-97) % Carbon Dioxide (22-30) mmol/L Glucose (74-99) mg/dL POC Glucose (mg/dL) 146 H 148 H 162 H (70-110) mg/dL Calcium (8.4-10.2) mg/dL Total Protein (6.3-8.2) g/dL Albumin (3.5-5.0) g/dL Procalcitonin (0.02-0.09) ng/mL 11/12/21 11/12/21 11/12/21 Range/Units 00:58 03:33 05:18 WBC (3.8-10.6) k/uL RBC (4.30-5.90) m/uL Hgb (13.0-17.5) gm/dL Hct (39.0-53.0) % RDW (11.5-15.5) % Plt Count (150-450) k/uL APTT (22.0-30.0) sec ABG pCO2 (35-45) mmHg ABG HCO3 (21-25) mmol/L ABG Total CO2 (19-24) mmol/L ABG O2 Saturation (94-97) % Carbon Dioxide (22-30) mmol/L Glucose (74-99) mg/dL POC Glucose (mg/dL) 148 H 147 H (70-110) mg/dL Calcium (8.4-10.2) mg/dL Total Protein (6.3-8.2) g/dL Albumin (3.5-5.0) g/dL Procalcitonin 2.30 H (0.02-0.09) ng/mL 11/12/21 11/12/21 11/12/21 Range/Units 05:18 05:18 05:21 WBC 11.6 H (3.8-10.6) k/uL RBC 3.74 L (4.30-5.90) m/uL Hgb 11.1 L (13.0-17.5) gm/dL Hct 34.0 L (39.0-53.0) % RDW 16.1 H (11.5-15.5) % Plt Count 123 L (150-450) k/uL APTT (22.0-30.0) sec ABG pCO2 (35-45) mmHg ABG HCO3 (21-25) mmol/L ABG Total CO2 (19-24) mmol/L ABG O2 Saturation (94-97) % Carbon Dioxide 33 H (22-30) mmol/L Glucose 177 H (74-99) mg/dL POC Glucose (mg/dL) 179 H (70-110) mg/dL Calcium 7.7 L (8.4-10.2) mg/dL Total Protein 4.6 L (6.3-8.2) g/dL Albumin 2.4 L (3.5-5.0) g/dL Procalcitonin (0.02-0.09) ng/mL 11/12/21 11/12/21 11/12/21 Range/Units 05:49 06:13 06:54 WBC (3.8-10.6) k/uL RBC (4.30-5.90) m/uL Hgb (13.0-17.5) gm/dL Hct (39.0-53.0) % RDW (11.5-15.5) % Plt Count (150-450) k/uL APTT (22.0-30.0) sec ABG pCO2 55 H (35-45) mmHg ABG HCO3 32 H (21-25) mmol/L ABG Total CO2 34 H (19-24) mmol/L ABG O2 Saturation 97.1 H (94-97) % Carbon Dioxide (22-30) mmol/L Glucose (74-99) mg/dL POC Glucose (mg/dL) 154 H 190 H (70-110) mg/dL Calcium (8.4-10.2) mg/dL Total Protein (6.3-8.2) g/dL Albumin (3.5-5.0) g/dL Procalcitonin (0.02-0.09) ng/mL 11/12/21 11/12/21 11/12/21 Range/Units 07:51 09:21 10:12 WBC (3.8-10.6) k/uL RBC (4.30-5.90) m/uL Hgb (13.0-17.5) gm/dL Hct (39.0-53.0) % RDW (11.5-15.5) % Plt Count (150-450) k/uL APTT (22.0-30.0) sec ABG pCO2 (35-45) mmHg ABG HCO3 (21-25) mmol/L ABG Total CO2 (19-24) mmol/L ABG O2 Saturation (94-97) % Carbon Dioxide (22-30) mmol/L Glucose (74-99) mg/dL POC Glucose (mg/dL) 197 H 180 H 185 H (70-110) mg/dL Calcium (8.4-10.2) mg/dL Total Protein (6.3-8.2) g/dL Albumin (3.5-5.0) g/dL Procalcitonin (0.02-0.09) ng/mL Microbiology - Last 24 Hours (Table) 11/10/21 06:45 Blood Culture - Preliminary Blood No Growth after 48 hours 11/10/21 06:45 Blood Culture - Preliminary Blood No Growth after 48 hours 11/11/21 11:00 Gram Stain - Preliminary Bronchoalviolar Lavage - Left Bronchial Washings Culture - Preliminary 11/11/21 11:00 Fungal Culture - Preliminary Bronchoalviolar Lavage - Left 11/11/21 11:00 Legionella Culture - Preliminary Bronchial Washings - Left 11/11/21 11:00 Acid Fast Bacilli Culture - Preliminary Bronchoalviolar Lavage - Left Assessment and Plan Plan: Acute hypoxic/hypercapneic respiratory failure, currently under investigation. High likelihood for an underlying pneumonia based on the chest x-ray findings. Patient is currently on broad-spectrum antibiotics. Follow-up blood gases from today shows improvement and acid base status. Bronchoscopy was done and the bronchioloalveolar lavage from the left upper lobe was collected. The patient is currently on broad-spectrum antibiotics. Follow-up blood gases showed improvement and acid base status. The patient is on a combination of Zosyn and Levaquin and vancomycin. The bronchioloalveolar lavage is still pending. Me anwhile, the patient is on the same antibiotic coverage. Oxygenation is stable and the patient's pro calcitonin level is improving and the patient was taken off pressors. Septic shock, improving and the patient was taken off sedation today and he was able to follow commands appropriately. He was also taken off pressors. Revealed normal acute latic acidosis, improved and LA is down to 1.3 NARENDRA, recovered CAD and patient is post acute NSTMI in [facility], currently under investigation, tmax 99.6 Morbid obesity, BMI 46.8-Weight loss measures and follow with PCP Diabetes mellitus type 2, on nsulin drip at 6.5 U/hr GERD Diabetic peripheral neuropathy Hyperlipidemia Essential hypertension Chronic pain syndrome. 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 The patient is currently afebrile. Pro calcitonin level is improving and the patient's sepsis and septic shock is also improving. Continue vent support and no ventilator changes will be done today gradually wean off the norepinephrine infusion Continue empiric antibiotic coverage with a combination of Zosyn and Levaquin and vancomycin Check a Legionella urine antigen Repeat another pro calcitonin is improving and we are awaiting the final cultures from the bronchioloalveolar lavage. Note that the lavage was done after the patient had already received antibiotics. We'll also send a Legionella urine antigen. Echocardiogram at shown a preserved LV function Continue insulin drip Lovenox 120 mg subcu every 12 hours Continue enteral feeding for nutritional support Bronchoscopy and bronchial lavage of the left upper lobe was done. Awaiting cultures. Condition is critical and discussed the case with the . We'll continue to follow make further recommendations based on progress. Time with Patient: Greater than 30
[2021-11-12 11:17] LABS: Glucose,Whole Blood 158 mg/dL (70-110)
[2021-11-12 12:10] LABS: Glucose,Whole Blood 162 mg/dL (70-110)
[2021-11-12 13:19] LABS: Glucose,Whole Blood 154 mg/dL (70-110)
[2021-11-12 13:54] LABS: Glucose,Whole Blood 164 mg/dL (70-110)
[2021-11-12] MEDS ORDERED: VANCOMYCIN TROUGH DUE 1 EACH MISC MISCELLANE ONE (15:00)
--- NOTE | 2021-11-12 15:01 | CDI ---
Documentation Clarification Form Date: 11/13/2021 02:29:57 PM From: Mariella Rosado RN CCDS Admit Date: 11/10/2021 04:56:00 AM Patient Name: Jose Lynne Visit Number: [id number] Discharge Date: ATTENTION: The Clinical Documentation Specialists (CDI) and [facility] Coding Staff appreciate your assistance in clarifying documentation. Please respond to the clarification below the line at the bottom and electronically sign. The CDI & [facility] Coding staff will review the response and follow-up if needed. Please note: Queries are made part of the Legal Health Record. If you have any questions, please contact the author of this message via ITS. Dr. Aye MD Septic Shock is documented Pulmonary consult, 11/10, but is not noted in subsequent documentation. Clarification is requested. History/Risk Factors: 51-year-old male presents to the ED with chest pain and shortness of breath for one week. Medical history: DM, GERD, HTN, Factor V and Diabetic gastroparesis. Clinical Indicators: VSS: 11/10 B/P 133/74; HR 125; Temp 99.9 F Axillary; RR 32; SpO2 98% non rebreather 11/10, Pulmonary consult: Septic shock, Acute hypotension, on Levo 0.05 mcg/kg/min, the patient was given a total of 2 L of IV fluid in the emergency room the patient is being monitored closely in the intensive care unit. LABS: 11/10 Wbc 12.9; Neutrophils 11.6; Lactic acid 3.1 CXR, 11/10: There is pulmonary interstitial edema which is new compared to old exams this could be acute interstitial pneumonia or acute heart failure. 11/10 Patient intubated on a mechanical ventilator. Treatment: 11/10 Norepinephrine IV Antibiotics: 11/10 Azithromycin 500mg IVPB x 1; Ceftriaxone Sodium 2gm IVPB x 1; Levofloxacin 250mg IVPB HS; Vancomycin 2,500mg IVPB x 1; 11/11 Zosyn IVPB 3.375 IVPB Fluid bolus 11/10 0.9ns 2L Please clarify if the Sepsis is: [ ] Sepsis confirmed, remains under treatment [ x ] Sepsis confirmed, resolved [ ] Sepsis ruled out [ ] Other condition, please specify [ ] Unable to determine (Template Last Revised: June 2020) MTDD
[2021-11-12 15:10] LABS: Glucose,Whole Blood 160 mg/dL (70-110)
[2021-11-12] MEDS: SODIUM CHLORIDE 0.9% 1,000 ML IV SCH (15:37)
--- NOTE | 2021-11-12 17:07 | P.PN ---
Progress Note - Text Progress Note Date: 11/12/21 Chief Complaint: Short of breath Hospital course: This is a pleasant 51-year-old male , follows with Dr. Waggoner. patient has a right Charcot foot and also found to have osteomyelitis in October 2020. 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 Patient presented to ER with chest pain and shortness of breath. About a week ago patient was admitted ear hospital. Her chest pain. Had a cardiac stress test that was abnormal and a cardiac cath that showed nonocclusive disease and no intervention was done. Since presentation to the ER patient became progressively more short of breath. Becoming less responsive. Was put on a BiPAP. Patient being becoming labored. Patient was seen by Dr. Veras from critical care. He is coming back to intubate the patient. Patient rather lethargic not really able to give on the much of a history. Received antibiotics. In the ICU. Getting bicarbonate. Admitted with bilateral pneumonia, acute hypoxic respiratory failure, delirium. Intubated November 11: ICU. Intubated./Ventilator. FiO2 60 PEEP of 5. Telemetry shows sinus rhythm. Drips include insulin, norepinephrine, IV heparin, propofol. This morning underwent bronchoscopy by Dr. Veras. Significant infectioned secretion obtained from the left bronchus. Discussed with the at the bedside. Has remained febrile. Will change IV heparin to subcu Lovenox. November 12: ICU: On the ventilator intubated with FiO2 59 PEEP of 5. Drips include insulin, norepinephrine, propofol, telemetry shows sinus rhythm. 2 feeding at 36 mL an hour. Jose Roberto colored tracheal secretions. Trial of DC propofol earlier today. Patient got agitated. Active Medications Acetaminophen (Acetaminophen Tab 325 Mg Tab) 650 mg PO Q6HR PRN PRN Reason: Fever and/ or Pain Last Admin: 11/11/21 11:17 Dose: 650 mg Albuterol Sulfate (Albuterol Nebulized 2.5 Mg/3 Ml) 5 mg INHALATION RT-Q4H PRN PRN Reason: Shortness Of Breath Or Wheezing Last Admin: 11/10/21 07:39 Dose: 5 mg Albuterol/Ipratropium (Ipratropium-Albuterol 3 Ml Neb) 3 ml INHALATION RT-QID [facility] Last Admin: 11/12/21 15:39 Dose: 3 ml Chlorhexidine Gluconate (Chlorhexidine Gluconate 15 Ml Cup) 15 ml MUCOUS MEM BID [facility] Last Admin: 11/12/21 08:32 Dose: 15 ml Enoxaparin Sodium (Enoxaparin 120 Mg/0.8 Ml Syringe) 120 mg SQ Q12H [facility] Last Admin: 11/12/21 06:09 Dose: 120 mg Hydromorphone HCl (Hydromorphone 0.5 Mg/0.5 Ml Syringe) 0.5 mg IVP Q3HR PRN PRN Reason: Pain Last Admin: 11/12/21 06:47 Dose: 0.5 mg Propofol 1,000 mg/ IV Solution 100 mls @ 15.785 mls/hr IV .Q6H21M [facility]; Protocol Last Admin: 11/12/21 14:54 Dose: 40 mcg/kg/min, 31.57 mls/hr Piperacillin Sod/Tazobactam (Sod 3.375 gm/ Sodium Chloride) 100 mls @ 25 mls/hr IVPB Q8HR [facility]; Protocol Last Admin: 11/12/21 16:39 Dose: 25 mls/hr Levofloxacin/Dextrose 250 mg/ (IV Solution) 50 mls @ 50 mls/hr IVPB HS [facility]; Protocol Last Admin: 11/11/21 21:11 Dose: 50 mls/hr Insulin Human Regular 100 unit (/ Sodium Chloride) 101 mls @ 0 mls/hr IV .Q0M [facility]; Protocol Last Titration: 11/12/21 08:06 Dose: 6.5 units/hr, 6.565 mls/hr Norepinephrine Bitartrate 32 (mg/ Sodium Chloride) 250 mls @ 3.07 mls/hr IV .Q24H [facility]; Protocol Last Titration: 11/12/21 15:04 Dose: 0 mcg/kg/min, 0 mls/hr Sodium Chloride (Saline 0.9%) 1,000 mls @ 75 mls/hr IV .[id number] [facility] Last Admin: 11/12/21 15:37 Dose: 75 mls/hr Vancomycin HCl 2,000 mg/ (Sodium Chloride) 500 mls @ 167 mls/hr IVPB Q12H [facility] Last Admin: 11/12/21 16:32 Dose: 167 mls/hr Miscellaneous Information (Pneumonia Protocol Util[facility] 1 each PO ONCE PRN PRN Reason: Per Protocol Naloxone HCl (Naloxone 0.4 Mg/Ml 1 Ml Vial) 0.2 mg IV Q2M PRN PRN Reason: Opioid Reversal Pantoprazole Sodium (Pantoprazole 40 Mg/10 Ml Vial) 40 mg IV DAILY [facility] Last Admin: 11/12/21 08:32 Dose: 40 mg Past medical history to include: Bilateral Charcot foot, with left foot osteomyelitis with surgery in January 2021 + Blum, diabetes, GERD, peripheral neuropathy, hypertension, hyperlipidemia, factor DLXXX mutation on and coordination, diabetic gastroparesis, decreased vision in the left eye, depression, history of 2 DVTs, sleep apnea uses BiPAP machine environmental ALLERGIES, fatty liver, herniated disc in the lower back, pain pump implant, narrowing of esophagus 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 No history of alcohol or smoking. Family history: Bladder cancer Physical examination: VITAL SIGNS: 99.4, 61, 20, 120/59, 97% on the ventilator GENERAL: Laying in bed, intubated, sedated EYES: Pupils equal. Conjunctiva normal. HEENT: External appearance of nose and ears normal, oral cavity grossly normal. NECK: JVD unable to assess; masses not palpable. HEART: First and second heart sounds are normal; mild edema. LUNGS: Respiratory rate increased; diminished breath sounds, coarse expiratory crackles ABDOMEN: Soft, nontender, liver spleen not palpable, no masses palpable. PSYCH: Able to assess MUSCULOSKELETAL:No Clubbing/cyanosis;muscles-grossly intact. Patient got fungal changes in the nails of the foot. Dry skin. Charcot foot. Left foot of the dressing. INVESTIGATIONS, reviewed in the clinical context: November 12: WBC 11.6 hemoglobin 11.1 platelets 123 potassium 4.1 creatinine 1.0 procalcitonin 2.3 November 11: WBC 21.7 hemoglobin 13.7 platelets 178 potassium 4.2 BUN 38 creatinine 1.5 for White count 12.9 hemoglobin 10.7 platelets 182 sodium 133 potassium 5.3 BUN 38 creatinine 1.98 Lactic acid 3.1 lesion 1.4 Troponin I less than 0.012 CRP 1.6 Chest x-ray film personally reviewed by me-scattered inflammatory EKG tracing personally reviewed by me-sinus tachycardia rate 124 Assessment and plan: -Bilateral pneumonia, possible aspiration causing hypoxia: Slow to respond IV Zosyn, IV vancomycin. Bronchoscopy with lavage on November [address] Veras. Pending cultures -Acute hypoxic respiratory failure secondary to pneumonia, : Slow to respond Ventilator support. Intubated November 10 -Chronic left plantar diabetic wound Wound care per ID: Aquacel silver dressing change every 48 hours -Bilateral foot Charcot foot from diabetes -Morbid obesity, BMI 46.8 Weight loss measures and follow with PCP -Diabetes mellitus type 2, chronically on insulin uncontrolled with hyperglycemia : Slow to respond Insulin drip -GERD On Pepcid -Diabetic peripheral neuropathy On Lyrica -Hyperlipidemia Lipitor -Hypotensive and septic shock: Slow to respond Norepinephrine. IV -Chronic pain syndrome. morphine pain pump -Primary osteoarthritis Pain medications as needed -Obstructive sleep apnea Uses CPAP -factor V Leyden mutation On Coumadin. 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 Pending culture. Subcu Lovenox.. Other medications to continue. 2 feeding. Other medications to continue. Local wound care of the foot.
[2021-11-12 17:33] LABS: Glucose,Whole Blood 162 mg/dL (70-110)
[2021-11-12] MEDS: NOREPINEPHRINE 32 MG in SODIUM CHLORIDE 0.9% 218 ML IV SCH (18:46)
[2021-11-12 18:58] LABS: Glucose,Whole Blood 161 mg/dL (70-110)
[2021-11-12 19:59] LABS: Glucose,Whole Blood 158 mg/dL (70-110)
[2021-11-12] MEDS: LEVOFLOXACIN 250MG-D5W PMX 250 MG in DEXTROSE/WATER 1 50ML.BAG IVPB SCH (20:15)
[2021-11-12 21:06] LABS: Glucose,Whole Blood 167 mg/dL (70-110)
[2021-11-12 22:11] LABS: Glucose,Whole Blood 175 mg/dL (70-110)
[2021-11-12 23:16] LABS: Glucose,Whole Blood 160 mg/dL (70-110)
[2021-11-13 00:06] LABS: Glucose,Whole Blood 157 mg/dL (70-110)
[2021-11-13] MEDS: HYDROmorphone 0.5 MG/0.5 ML SYRINGE IVP PRN ×2 (00:09→04:18)
[2021-11-13] MEDS: SODIUM CHLORIDE 0.9% 1,000 ML IV SCH (00:36)
[2021-11-13 01:09] LABS: Glucose,Whole Blood 156 mg/dL (70-110)
[2021-11-13 02:04] LABS: Glucose,Whole Blood 179 mg/dL (70-110)
[2021-11-13 03:06] LABS: Glucose,Whole Blood 182 mg/dL (70-110)
[2021-11-13] MEDS: VANCOMYCIN 2,000 MG in SODIUM CHLORIDE 0.9% 500 ML 500 ML IVPB SCH (03:10)
[2021-11-13 04:30] LABS: Glucose,Whole Blood 155 mg/dL (70-110)
[2021-11-13 04:59] LABS: Anisocytosis Slight; HGB 11.3 gm/dL (13.0-17.5); MCH 31.5 pg (25.0-35.0); MCHC 34.1 g/dL (31.0-37.0); MCV 92.2 fL (80.0-100.0); Mean Platelet Volume 9.8; Platelet Count 103 k/uL (150-450); RBC 3.58 m/uL (4.30-5.90); RDW 16.3 % (11.5-15.5); WBC 5.3 k/uL (3.8-10.6)
[2021-11-13 05:09] LABS: Prothrombin Time 10.6 sec (9.0-12.0)
[2021-11-13 05:10] LABS: Glucose,Whole Blood 148 mg/dL (70-110)
[2021-11-13 05:15] LABS: ALT 16 U/L (4-49); AST 12 U/L (17-59); African American GFR (CKD) >90 (>60 ml/min/1.73 sqM); Albumin 2.3 g/dL (3.5-5.0); Alkaline Phosphatase 102 U/L (38-126); Anion Gap 2 mmol/L; Blood Urea Nitrogen 14 mg/dL (9-20); Calcium 7.6 mg/dL (8.4-10.2); Carbon Dioxide 30 mmol/L (22-30); Chloride 104 mmol/L (98-107); Glucose 156 mg/dL (74-99); Non-African American GFR(CKD) >90 (>60 ml/min/1.73 sqM); Potassium 3.9 mmol/L (3.5-5.1); Sodium 136 mmol/L (137-145); Total Bilirubin 0.4 mg/dL (0.2-1.3); Total Protein 4.6 g/dL (6.3-8.2)
[2021-11-13] MEDS ORDERED: Potassium Replacement Protocol 1 EACH MISC MISCELLANE PRN (05:58)
[2021-11-13] MEDS ORDERED: POTASSIUM BICARBONATE/CIT AC 20 MEQ TABLET.EFF NG-TUBE SCH (06:00)
[2021-11-13 06:05] LABS: Glucose,Whole Blood 163 mg/dL (70-110)
[2021-11-13 06:11] LABS: ABG Base Excess 4.5 mmol/L; ABG HCO3 30 mmol/L (21-25); ABG Oxygen Saturation 98.9 % (94-97); ABG PCO2 56 mmHg (35-45); ABG PH 7.34 (7.35-7.45); ABG PO2 128 mmHg (83-108); ABG TCO2 32 mmol/L (19-24); Allen Test Performed? Yes
[2021-11-13 07:02] LABS: Glucose,Whole Blood 173 mg/dL (70-110)
[2021-11-13] MEDS: NOREPINEPHRINE 32 MG in SODIUM CHLORIDE 0.9% 218 ML IV SCH (07:05)
[2021-11-13] MEDS: IPRATROPIUM-ALBUTEROL 3 ML NEB INHALATION SCH ×4 (07:32→19:11)
--- NOTE | 2021-11-13 07:40 | XR ---
EXAMINATION TYPE: XR chest 1V portable DATE OF EXAM: 11/13/2021 COMPARISON: HISTORY: Shortness of breath TECHNIQUE: Single frontal view of the chest is obtained. FINDINGS: bilateral consolidation and small effusion. ET tube approximately 3 cm above emre. NG tu be seen coursing the abdomen and central line seen overlying the right atrium. No sizable pneumothora x. A limited inspiration. IMPRESSION: Stable bilateral airspace disease.
--- NOTE | 2021-11-13 07:50 | P.PN ---
Subjective Progress Note Date: 11/12/21 Principal diagnosis: Left diabetic foot ulcer/pneumonia Patient is a 51 year old male with past medical history significant for left diabetic foot ulcer present at the hospital with acute respiratory failure requiring intubation concern for pneumonia status post bronchoscopy completed 11/11/2021. On today's evaluation that is 11/12/2021, the patient is afebrile, the patient is hemodynamically stable, patient remains to be on the vent and unable to provide any history, no significant purulent secretion through ET or diarrhea reported by the nursing staff Objective - Vital Signs Vital signs: Vital Signs Temp 99.4 F 11/12/21 11:00 Pulse 61 11/12/21 12:04 Resp 20 11/12/21 11:00 BP 124/55 11/12/21 11:00 Pulse Ox 97 11/12/21 11:00 FiO2 50 11/12/21 11:46 Intake & Output 11/11/21 11/12/21 11/12/21 18:59 06:59 18:59 Intake Total 2374.542 2115.810 634.987 Output Total 2960 1760 245 Balance -585.458 355.810 389.987 Weight 132.4 kg 127.8 kg Intake: IV 1475 1586 312 Arterial Line @ 3ml/hr 36 12 Dextrose 5% in Water 1, 300 000 ml @ 100 mls/hr IV . [id number] [facility] with Sodium Bicarb (1 Meq/ml) 150 ml Rx#:[id number] Levofloxacin 250Mg-D5w 0 50 Pmx 250 mg In Dextrose/ Water 1 50ml.bag @ 50 mls /hr IVPB HS [facility] Rx#: [id number] Piperacillin-Tazobactam 3 300 100 .375 gm In Sodium Chloride 0.9% 100 ml @ 25 mls/hr IVPB Q8HR [facility] Rx# :[id number] Sodium Chloride 0.9% 1, 375 900 300 000 ml @ 75 mls/hr IV . [id number] [facility] Rx#:[id number] Vancomycin 2,500 mg In 500 500 Sodium Chloride 0.9% 500 ml 500 ml @ 167 mls/hr IVPB Q24HR@1800 [facility] Rx#: [id number] Intake, IV Titration 799.542 349.810 190.987 Amount Heparin Sod,Pork in 0.45% 48.066 NaCl 25,000 unit In 0.45 % NaCl 1 250ml.bag @ 7. 602 UNITS/KG/HR 10 mls/hr IV .Q24H [facility] Rx#: [id number] Insulin Regular 100 unit 74.394 42.177 7.171 In Sodium Chloride 0.9% 100 ml @ Per Protocol IV .Q0M [facility] Rx#:[id number] Norepinephrine 32 mg In 37.265 51.333 7.680 Sodium Chloride 0.9% 218 ml @ 0.05 MCG/KG/MIN 3.07 mls/hr IV .Q24H [facility] Rx#: [id number] Norepinephrine 32 mg In 156.670 Sodium Chloride 0.9% 218 ml @ 0.05 MCG/KG/MIN 3. 083 mls/hr IV .Q24H [facility] Rx#:[id number] propofoL 1,000 mg In 483.147 256.300 176.136 Empty Bag 1 bag @ 20 MCG/ KG/MIN 15.785 mls/hr IV . Q6H21M [facility] Rx#:[id number] Tube Feeding 40 180 132 Other 60 Output: Urine 2960 1760 245 Other: Voiding Method Indwelling Catheter Indwelling Catheter Indwelling Catheter ABP, PAP, CO, CI - Last Documented Arterial Blood Pressure 120/59 - Exam GENERAL DESCRIPTION: Middle-aged male intubated on the vent RESPIRATORY SYSTEM: Unlabored breathing , decreased breath sounds at bases HEART: S1 S2 regular rate and rhythm , ABDOMEN: Soft , no tenderness EXTREMITIES: Left foot wound is dressed no drainage on the dressing - Labs CBC & Chem 7: 11/13/21 04:00 11/13/21 04:00 Labs: Abnormal Lab Results - Last 24 Hours (Table) 11/11/21 11/11/21 11/11/21 Range/Units 12:43 13:36 15:04 WBC (3.8-10.6) k/uL RBC (4.30-5.90) m/uL Hgb (13.0-17.5) gm/dL Hct (39.0-53.0) % RDW (11.5-15.5) % Plt Count (150-450) k/uL APTT 51.8 H (22.0-30.0) sec ABG pCO2 (35-45) mmHg ABG HCO3 (21-25) mmol/L ABG Total CO2 (19-24) mmol/L ABG O2 Saturation (94-97) % Carbon Dioxide (22-30) mmol/L Glucose (74-99) mg/dL POC Glucose (mg/dL) 175 H 178 H (70-110) mg/dL Calcium (8.4-10.2) mg/dL Total Protein (6.3-8.2) g/dL Albumin (3.5-5.0) g/dL Procalcitonin (0.02-0.09) ng/mL 11/11/21 11/11/21 11/11/21 Range/Units 16:10 17:11 18:06 WBC (3.8-10.6) k/uL RBC (4.30-5.90) m/uL Hgb (13.0-17.5) gm/dL Hct (39.0-53.0) % RDW (11.5-15.5) % Plt Count (150-450) k/uL APTT (22.0-30.0) sec ABG pCO2 (35-45) mmHg ABG HCO3 (21-25) mmol/L ABG Total CO2 (19-24) mmol/L ABG O2 Saturation (94-97) % Carbon Dioxide (22-30) mmol/L Glucose (74-99) mg/dL POC Glucose (mg/dL) 155 H 160 H 130 H (70-110) mg/dL Calcium (8.4-10.2) mg/dL Total Protein (6.3-8.2) g/dL Albumin (3.5-5.0) g/dL Procalcitonin (0.02-0.09) ng/mL 11/11/21 11/11/21 11/11/21 Range/Units 18:55 20:15 21:09 WBC (3.8-10.6) k/uL RBC (4.30-5.90) m/uL Hgb (13.0-17.5) gm/dL Hct (39.0-53.0) % RDW (11.5-15.5) % Plt Count (150-450) k/uL APTT (22.0-30.0) sec ABG pCO2 (35-45) mmHg ABG HCO3 (21-25) mmol/L ABG Total CO2 (19-24) mmol/L ABG O2 Saturation (94-97) % Carbon Dioxide (22-30) mmol/L Glucose (74-99) mg/dL POC Glucose (mg/dL) 159 H 146 H 148 H (70-110) mg/dL Calcium (8.4-10.2) mg/dL Total Protein (6.3-8.2) g/dL Albumin (3.5-5.0) g/dL Procalcitonin (0.02-0.09) ng/mL 11/11/21 11/12/21 11/12/21 Range/Units 23:02 00:58 03:33 WBC (3.8-10.6) k/uL RBC (4.30-5.90) m/uL Hgb (13.0-17.5) gm/dL Hct (39.0-53.0) % RDW (11.5-15.5) % Plt Count (150-450) k/uL APTT (22.0-30.0) sec ABG pCO2 (35-45) mmHg ABG HCO3 (21-25) mmol/L ABG Total CO2 (19-24) mmol/L ABG O2 Saturation (94-97) % Carbon Dioxide (22-30) mmol/L Glucose (74-99) mg/dL POC Glucose (mg/dL) 162 H 148 H 147 H (70-110) mg/dL Calcium (8.4-10.2) mg/dL Total Protein (6.3-8.2) g/dL Albumin (3.5-5.0) g/dL Procalcitonin (0.02-0.09) ng/mL 11/12/21 11/12/21 11/12/21 Range/Units 05:18 05:18 05:18 WBC 11.6 H (3.8-10.6) k/uL RBC 3.74 L (4.30-5.90) m/uL Hgb 11.1 L (13.0-17.5) gm/dL Hct 34.0 L (39.0-53.0) % RDW 16.1 H (11.5-15.5) % Plt Count 123 L (150-450) k/uL APTT (22.0-30.0) sec ABG pCO2 (35-45) mmHg ABG HCO3 (21-25) mmol/L ABG Total CO2 (19-24) mmol/L ABG O2 Saturation (94-97) % Carbon Dioxide 33 H (22-30) mmol/L Glucose 177 H (74-99) mg/dL POC Glucose (mg/dL) (70-110) mg/dL Calcium 7.7 L (8.4-10.2) mg/dL Total Protein 4.6 L (6.3-8.2) g/dL Albumin 2.4 L (3.5-5.0) g/dL Procalcitonin 2.30 H (0.02-0.09) ng/mL 11/12/21 11/12/21 11/12/21 Range/Units 05:21 05:49 06:13 WBC (3.8-10.6) k/uL RBC (4.30-5.90) m/uL Hgb (13.0-17.5) gm/dL Hct (39.0-53.0) % RDW (11.5-15.5) % Plt Count (150-450) k/uL APTT (22.0-30.0) sec ABG pCO2 55 H (35-45) mmHg ABG HCO3 32 H (21-25) mmol/L ABG Total CO2 34 H (19-24) mmol/L ABG O2 Saturation 97.1 H (94-97) % Carbon Dioxide (22-30) mmol/L Glucose (74-99) mg/dL POC Glucose (mg/dL) 179 H 154 H (70-110) mg/dL Calcium (8.4-10.2) mg/dL Total Protein (6.3-8.2) g/dL Albumin (3.5-5.0) g/dL Procalcitonin (0.02-0.09) ng/mL 11/12/21 11/12/21 11/12/21 Range/Units 06:54 07:51 09:21 WBC (3.8-10.6) k/uL RBC (4.30-5.90) m/uL Hgb (13.0-17.5) gm/dL Hct (39.0-53.0) % RDW (11.5-15.5) % Plt Count (150-450) k/uL APTT (22.0-30.0) sec ABG pCO2 (35-45) mmHg ABG HCO3 (21-25) mmol/L ABG Total CO2 (19-24) mmol/L ABG O2 Saturation (94-97) % Carbon Dioxide (22-30) mmol/L Glucose (74-99) mg/dL POC Glucose (mg/dL) 190 H 197 H 180 H (70-110) mg/dL Calcium (8.4-10.2) mg/dL Total Protein (6.3-8.2) g/dL Albumin (3.5-5.0) g/dL Procalcitonin (0.02-0.09) ng/mL 11/12/21 11/12/21 11/12/21 Range/Units 10:12 11:16 12:08 WBC (3.8-10.6) k/uL RBC (4.30-5.90) m/uL Hgb (13.0-17.5) gm/dL Hct (39.0-53.0) % RDW (11.5-15.5) % Plt Count (150-450) k/uL APTT (22.0-30.0) sec ABG pCO2 (35-45) mmHg ABG HCO3 (21-25) mmol/L ABG Total CO2 (19-24) mmol/L ABG O2 Saturation (94-97) % Carbon Dioxide (22-30) mmol/L Glucose (74-99) mg/dL POC Glucose (mg/dL) 185 H 158 H 162 H (70-110) mg/dL Calcium (8.4-10.2) mg/dL Total Protein (6.3-8.2) g/dL Albumin (3.5-5.0) g/dL Procalcitonin (0.02-0.09) ng/mL Microbiology - Last 24 Hours (Table) 11/10/21 06:45 Blood Culture - Preliminary Blood No Growth after 48 hours 11/10/21 06:45 Blood Culture - Preliminary Blood No Growth after 48 hours 11/11/21 11:00 Gram Stain - Preliminary Bronchoalviolar Lavage - Left Bronchial Washings Culture - Preliminary 11/11/21 11:00 Fungal Culture - Preliminary Bronchoalviolar Lavage - Left 11/11/21 11:00 Legionella Culture - Preliminary Bronchial Washings - Left 11/11/21 11:00 Acid Fast Bacilli Culture - Preliminary Bronchoalviolar Lavage - Left Assessment and Plan (1) Community acquired pneumonia Current Visit: Yes Status: Acute Code(s): J18.9 - PNEUMONIA, UNSPECIFIED ORGANISM SNOMED Code(s): 696851618 (2) Diabetic foot ulcer Current Visit: No Status: Acute Code(s): E11.621 - TYPE 2 DIABETES MELLITUS WITH FOOT ULCER; L97.509 - NON-PRESSURE CHRONIC ULCER OTH PRT UNSP FOOT W UNSP SEVERITY SNOMED Code(s): 716147523 Plan: 1patient presented to hospital with sepsis and respiratory have fever elevated white count with predominant respiratory symptoms concerning for likely pneumo hasmukh in this patient who has been in of the hospital only to cover for resistant gram-positive as well as gram-negative and a question of aspiration etiology in this patient was status post bronchoscopy and lavage and cultures are currently pending. 2patient with left diabetic foot ulcer with evidence of any cellulitis recommend local wound care. 3patient to continue with the vancomycin and Zosyn however will monitor his kidney function closely and adjust antibiotic on the basis of culture. 4local wound care to the left foot plantar wound with Aquacel silver dressing change every 48 hour.
[2021-11-13 08:06] LABS: Glucose,Whole Blood 165 mg/dL (70-110)
[2021-11-13] MEDS: PIPERACILLIN-TAZOBACTAM 3.375 GM in SODIUM CHLORIDE 0.9% 100 ML IVPB SCH ×3 (08:32→23:09)
[2021-11-13] MEDS: PANTOPRAZOLE 40 MG/10 ML VIAL IV SCH (08:33)
[2021-11-13] MEDS: ENOXAPARIN 120 MG/0.8 ML SYRINGE SQ SCH ×2 (08:33→22:00)
[2021-11-13] MEDS: CHLORHEXIDINE GLUCONATE 15 ML CUP MUCOUS MEM SCH ×2 (08:34→20:16)
[2021-11-13 08:58] LABS: Glucose,Whole Blood 150 mg/dL (70-110)
[2021-11-13] MEDS ORDERED: HYDROmorphone 0.5 MG/0.5 ML SYRINGE ONE (09:24)
[2021-11-13 10:21] LABS: Glucose,Whole Blood 127 mg/dL (70-110)
[2021-11-13 11:26] LABS: Glucose,Whole Blood 138 mg/dL (70-110)
[2021-11-13 12:12] LABS: Glucose,Whole Blood 138 mg/dL (70-110)
[2021-11-13 13:31] LABS: Glucose,Whole Blood 138 mg/dL (70-110)
[2021-11-13] MEDS ORDERED: SODIUM CHLORIDE 0.9% 1,000 ML IV SCH (14:00)
--- NOTE | 2021-11-13 14:00 | P.PN ---
Subjective Progress Note Date: 11/13/21 This is a 51-year-old male patient came into the emergency department because of chest pain. Note that the patient was in [facility] for chest pain approximately week ago and the patient was given a cardiac evaluation which included a cardiac stress and that came back abnormal and following that the patient was given a cardiac catheterization that showed nonocclusive disease and no intervention was done. Yesterday, the patient came in to the emergency department as the patient was complaining of increased shortness of breath and chest pain. His chest x-ray showed some cardiomegaly and increased bilateral interstitial pulmonary infiltrates which also raises the concern for an underlying pneumonia. While in the emergency, the patient started having episodes of fever and he became more obtunded and short of breath. At that point, the patient was started on BiPAP for respiratory support. The patient was started on a BiPAP at a pressure of 14/5 cm water and FiO2 of 40%. The pH was at 7.17 with a pCO2 of 64 and pO2 of 83 and this was not an FiO2 of 50%. At a time of my arrival, the patient's breathing was still labored and the patient was quite lethargic and obtunded. He was able to generate an adequate tidal volume of 400 mL. Nevertheless, the patient was still having shortness of breath and her breathing was labored with a high minute ventilation and a high respiratory rate. The patient was already given a total of 2 L of IV fluid and the patient was given a combination of Rocephin and Zithromax covering for a pneumonia. The workup that has been done showed a white cell count of 23 with a hemoglobin of 13.7 and a platelet count of 219. Normal coagulation profile. Lactic acid level was at 4.1. Blood sugars were elevated at around 370. UA showed +2 glucose, +1 protein and +9 white cells. The coagulation profile was within normal limits. COVID 19 by PCR came back also negative. After being transferred to the intensive care unit, the patient was monitored very closely and subsequently was decided to LAD and intubated the patient put him on a mechanical ventilator. Note that the patient had a triple lumen catheter established in the emergency department. The patient was also started on low- dose norepinephrine running at 0.05 mg/kg per minute. He was started on bicarb infusion. Noted the patient is a chronic CO2 retainer patient has a relatively elevated serum bicarbonate level at baseline. On today's evaluation of 11/11/2021, the patient is being seen for a follow-up. The patient remains intubated on mechanical ventilator. On today's evaluation, the patient remains on a propofol which is running at 50 mcg/kg per minute. The patient is on a mechanical ventilator on assist control mode at the rate of 18 without volume of 400 and FiO2 of 50% with a PEEP of 5. The blood gases showed a pH of 7.38 with a pCO2 of 53 and pO2 of 11. The peak airway pressure is 29. His pro-calcitonin level is at 5.3 supporting the possibility of underlying bacterial infection and same time the patient was having episodes of fever with a T-max of 101.4F. Note that the patient's overall acid base status is improved as the patient was also being given bicarb infusion rate of 100 mL an hour. The blood gases from today shows improvement with a pH of 7.38 And a serum bicarbonate is currently at 32 which is very close to the patient's baseline. The patient has been adequately resuscitated IV fluids. He remains on norepinephrine infusion running at 0.1 g respiratory per minute. Urine output is adequate. The patient had an echocardiogram that showed a preserved LV function with an ejection fraction of 65%. The patient remains on insulin d rip at 7.5 units an hour and the patient is also on IV heparin. On today's evaluation, the white cell count of 21 with a hemoglobin 15.7. Serum bicarb is at 32 with a sodium level of 139 and a BUN of 38 a CAT scan of 1.5. No other significant events overnight. Antibiotic coverage has been broadened to include a combination of Zosyn, Levaquin and vancomycin. Note that the patient's cultures are all negative thus far. Blood sugars under better control for now. 11/12/2021, the patient is being seen for a follow-up. The patient remains intubated on a mechanical ventilator for bilateral pneumonia and sepsis. This morning, the patient remains on propofol which is running at 40 mcg/kg per minute. The patient has been adequately sedated at this point in time and the patient is full asynchronous with a mechanical ventilator. The patient remains on a mechanical ventilator and an assist-control mode at the rate of 18, tidal volume of 400, FiO2 of 50% with a PEEP of 5. Current oxygen saturations around 96%. The blood gases from today is showing a pH of 7.38 with a pCO2 of 55 and pO2 of 84. The patient underwent a bronchoscopy yesterday. The bronchioloalveolar lavage from the left lung was collected and the cultures are still pending for now. Meanwhile, the patient is covered with triple antibiotic coverage and he is on a combination of Zosyn, vancomycin and Levaquin. He is afebrile for now. He is having a low-grade fever however with a T-max of 99.6 overnight. He is on pressors and 0 was receiving pressors at low-dose levothyroid at 0.05 mcg/kg per minute and norepinephrine infusion was discontinued this morning. He remains in normal saline at the rate of 75 mL's an hour. He is on insulin drip at 6 units an hour for blood sugar control. IV heparin has been discontinued. The patient is currently on Lovenox at a dose of 120 mg every 12 hours. The current white cell count 11.6 with a hemoglobin of 11.1 and a platelet count of 123. BUN is at 20 with a creatinine of 1.0. Sodium is at 137 Naren glucose at 177, calcium is at 7.7 and a phosphorus is 2.1. Pro-calcitonin level is gradually improving. It was as high as 5.3 currently is down to 2.3. Meanwhile, the patient's chest x-ray from today is showing bilateral pulmonary infiltrates which is essentially unchanged compared to yesterday. All of the lites are in good location including the right IJ triple-lumen catheter and the orogastric and orotracheal tube. The patient is receiving enteral feeding with vital HF at the rate of 30 mL an hour which is currently at goal. 11/13/2021, patient is being seen for a follow-up. The patient remains intubated on a mechanical ventilator and the patient sedated with propofol. The propofol is running at 30 mcg/kg per minute. The patient is easily arousable while of the propofol. Noted the patient has chronic back pain and the patient may need some pain control once taken off the sedation. In any rate, the patient for the time being is still on the mechanical ventilator. He remains on assist control mode at the rate of 18, tidal volume of 400, FiO2 of 50% with a PEEP of 5. Chest x-ray still showing unchanged bilateral pulmonary infiltrates. Nevertheless, the bronchoscopy and the bronchioloalveolar lavage was done and the cultures are still negative and that showed only some yeast. No bacterial growth was noted and the patient is on the same antibiotic coverage. The blood gases showed a pH of 7.34 episodes of 56 and pO2 of 128. The peak and static pressures are nonelevated. The pro-calcitonin level A LEVEL IS IMPROVING AND STARTED ON A 2.3. THE WHITE CELL COUNT IS ALSO DOWN TO 5.3. HEMOGLOBIN 11.3. THE PATIENT IS OFF PRESSORS SINCE 4 AM THIS MORNING. IV FLUIDS IN THE FORM OF NORMAL SALINE AT THE RATE OF 75 ML AN HOUR. OVERALL FLUID BALANCE IS +2.8 L. THE PATIENT IS RECEIVING VITAl AF for enteral feeding and nutritional support. Objective - Vital Signs Vital signs: Vital Signs Temp 97.8 F 11/13/21 04:00 Pulse 80 11/13/21 13:00 Resp 13 11/13/21 13:00 BP 124/55 11/13/21 09:00 Pulse Ox 97 11/13/21 13:00 FiO2 50 11/13/21 12:00 Intake & Output 11/12/21 11/13/21 11/13/21 18:59 06:59 18:59 Intake Total 2325.295 2514.354 493.006 Output Total 815 1170 395 Balance 2175.487 6439.354 98.006 Weight 130.2 kg 130.2 kg Intake: IV 1558 1164 248 Arterial Line @ 3ml/hr 33 39 18 Levofloxacin 250Mg-D5w 50 Pmx 250 mg In Dextrose/ Water 1 50ml.bag @ 50 mls /hr IVPB HS ROBERTA Rx#: [id number] Piperacillin-Tazobactam 3 200 100 .375 gm In Sodium Chloride 0.9% 100 ml @ 25 mls/hr IVPB Q8HR ROBERTA Rx# :[id number] Sodium Chloride 0.9% 1, 825 975 230 000 ml @ 75 mls/hr IV . [id number] ROBERTA Rx#:[id number] Vancomycin 500 Intake, IV Titration 404.295 831.354 179.006 Amount Insulin Regular 100 unit 7.171 129.768 26.681 In Sodium Chloride 0.9% 100 ml @ Per Protocol IV .Q0M ROBERTA Rx#:[id number] Norepinephrine 32 mg In 20.988 13.190 Sodium Chloride 0.9% 218 ml @ 0.05 MCG/KG/MIN 3.07 mls/hr IV .Q24H ROBERTA Rx#: [id number] Vancomycin 2,000 mg In 500 Sodium Chloride 0.9% 500 ml 500 ml @ 167 mls/hr IVPB Q12H ROBERTA Rx#: [id number] propofoL 1,000 mg In 376.136 188.396 152.325 Empty Bag 1 bag @ 20 MCG/ KG/MIN 15.785 mls/hr IV . Q6H21M ROBERTA Rx#:[id number] Tube Feeding 363 429 66 Other 90 Output: Urine 815 1170 395 Other: Voiding Method Indwelling Catheter Indwelling Catheter Indwelling Catheter ABP, PAP, CO, CI - Last Documented Arterial Blood Pressure 157/68 - Exam Patient is currently intubated on a mechanical ventilator, the patient is sedated with propofol and the patient is calm and comfortable, The patient is obese and the patient has a body mass index of 46. Intubated on a mechanical ventilator Head exam was generally normal. There was no scleral icterus or corneal arcus. Mucous membranes were moist. Neck was supple and without jugular venous distension, thyromegaly, or carotid bruits. Carotids were easily palpable bilaterally. There was no adenopathy. The patient has orogastric and orotracheal tube in place Lungs sounds are diminished bilaterally and the patient has scattered rhonchi heard throughout the lung garcia and the patient scattered crackles and wheezes. Cardiac exam revealed the PMI to be normally situated and sized. The rhythm was regular and no extrasystoles were noted during several minutes of auscultation. The first and second heart sounds were normal and physiologic splitting of the second heart sound was noted. There were no murmurs, rubs, clicks, or gallops. Abdominal exam revealed normal bowel sounds. The abdomen was soft, non-tender, and without masses, organomegaly, or appreciable enlargement of the abdominal aorta. Examination of the extremities revealed easily palpable radial, femoral and pedal pulses. There was no cyanosis, clubbing or edema. Examination of the skin revealed no evidence of significant rashes, suspicious appearing nevi or other concerning lesions. Neurologically the patient was quite obtunded prior to her intubation. Currently is on propofol. His neurologic exam was apparently nonfocal prior to the intubation process. - Labs CBC & Chem 7: 11/13/21 04:00 11/13/21 04:00 Labs: Abnormal Lab Results - Last 24 Hours (Table) 11/12/21 11/12/21 11/12/21 Range/Units 15:08 17:31 18:56 RBC (4.30-5.90) m/uL Hgb (13.0-17.5) gm/dL Hct (39.0-53.0) % RDW (11.5-15.5) % Plt Count (150-450) k/uL ABG pH (7.35-7.45) ABG pCO2 (35-45) mmHg ABG pO2 (83-108) mmHg ABG HCO3 (21-25) mmol/L ABG Total CO2 (19-24) mmol/L ABG O2 Saturation (94-97) % Sodium (137-145) mmol/L Glucose (74-99) mg/dL POC Glucose (mg/dL) 160 H 162 H 161 H (70-110) mg/dL Calcium (8.4-10.2) mg/dL AST (17-59) U/L Total Protein (6.3-8.2) g/dL Albumin (3.5-5.0) g/dL 11/12/21 11/12/21 11/12/21 Range/Units 19:57 21:05 22:09 RBC (4.30-5.90) m/uL Hgb (13.0-17.5) gm/dL Hct (39.0-53.0) % RDW (11.5-15.5) % Plt Count (150-450) k/uL ABG pH (7.35-7.45) ABG pCO2 (35-45) mmHg ABG pO2 (83-108) mmHg ABG HCO3 (21-25) mmol/L ABG Total CO2 (19-24) mmol/L ABG O2 Saturation (94-97) % Sodium (137-145) mmol/L Glucose (74-99) mg/dL POC Glucose (mg/dL) 158 H 167 H 175 H (70-110) mg/dL Calcium (8.4-10.2) mg/dL AST (17-59) U/L Total Protein (6.3-8.2) g/dL Albumin (3.5-5.0) g/dL 11/12/21 11/13/21 11/13/21 Range/Units 23:15 00:04 01:07 RBC (4.30-5.90) m/uL Hgb (13.0-17.5) gm/dL Hct (39.0-53.0) % RDW (11.5-15.5) % Plt Count (150-450) k/uL ABG pH (7.35-7.45) ABG pCO2 (35-45) mmHg ABG pO2 (83-108) mmHg ABG HCO3 (21-25) mmol/L ABG Total CO2 (19-24) mmol/L ABG O2 Saturation (94-97) % Sodium (137-145) mmol/L Glucose (74-99) mg/dL POC Glucose (mg/dL) 160 H 157 H 156 H (70-110) mg/dL Calcium (8.4-10.2) mg/dL AST (17-59) U/L Total Protein (6.3-8.2) g/dL Albumin (3.5-5.0) g/dL 11/13/21 11/13/21 11/13/21 Range/Units 02:03 03:04 04:00 RBC (4.30-5.90) m/uL Hgb (13.0-17.5) gm/dL Hct (39.0-53.0) % RDW (11.5-15.5) % Plt Count (150-450) k/uL ABG pH (7.35-7.45) ABG pCO2 (35-45) mmHg ABG pO2 (83-108) mmHg ABG HCO3 (21-25) mmol/L ABG Total CO2 (19-24) mmol/L ABG O2 Saturation (94-97) % Sodium 136 L (137-145) mmol/L Glucose 156 H (74-99) mg/dL POC Glucose (mg/dL) 179 H 182 H (70-110) mg/dL Calcium 7.6 L (8.4-10.2) mg/dL AST 12 L (17-59) U/L Total Protein 4.6 L (6.3-8.2) g/dL Albumin 2.3 L (3.5-5.0) g/dL 11/13/21 11/13/21 11/13/21 Range/Units 04:00 04:28 05:07 RBC 3.58 L (4.30-5.90) m/uL Hgb 11.3 L (13.0-17.5) gm/dL Hct 33.0 L (39.0-53.0) % RDW 16.3 H (11.5-15.5) % Plt Count 103 L (150-450) k/uL ABG pH (7.35-7.45) ABG pCO2 (35-45) mmHg ABG pO2 (83-108) mmHg ABG HCO3 (21-25) mmol/L ABG Total CO2 (19-24) mmol/L ABG O2 Saturation (94-97) % Sodium (137-145) mmol/L Glucose (74-99) mg/dL POC Glucose (mg/dL) 155 H 148 H (70-110) mg/dL Calcium (8.4-10.2) mg/dL AST (17-59) U/L Total Protein (6.3-8.2) g/dL Albumin (3.5-5.0) g/dL 11/13/21 11/13/21 11/13/21 Range/Units 06:04 06:09 07:01 RBC (4.30-5.90) m/uL Hgb (13.0-17.5) gm/dL Hct (39.0-53.0) % RDW (11.5-15.5) % Plt Count (150-450) k/uL ABG pH 7.34 L (7.35-7.45) ABG pCO2 56 H (35-45) mmHg ABG pO2 128 H (83-108) mmHg ABG HCO3 30 H (21-25) mmol/L ABG Total CO2 32 H (19-24) mmol/L ABG O2 Saturation 98.9 H (94-97) % Sodium (137-145) mmol/L Glucose (74-99) mg/dL POC Glucose (mg/dL) 163 H 173 H (70-110) mg/dL Calcium (8.4-10.2) mg/dL AST (17-59) U/L Total Protein (6.3-8.2) g/dL Albumin (3.5-5.0) g/dL 11/13/21 11/13/21 11/13/21 Range/Units 08:03 08:57 10:18 RBC (4.30-5.90) m/uL Hgb (13.0-17.5) gm/dL Hct (39.0-53.0) % RDW (11.5-15.5) % Plt Count (150-450) k/uL ABG pH (7.35-7.45) ABG pCO2 (35-45) mmHg ABG pO2 (83-108) mmHg ABG HCO3 (21-25) mmol/L ABG Total CO2 (19-24) mmol/L ABG O2 Saturation (94-97) % Sodium (137-145) mmol/L Glucose (74-99) mg/dL POC Glucose (mg/dL) 165 H 150 H 127 H (70-110) mg/dL Calcium (8.4-10.2) mg/dL AST (17-59) U/L Total Protein (6.3-8.2) g/dL Albumin (3.5-5.0) g/dL 11/13/21 11/13/21 11/13/21 Range/Units 11:25 12:10 13:29 RBC (4.30-5.90) m/uL Hgb (13.0-17.5) gm/dL Hct (39.0-53.0) % RDW (11.5-15.5) % Plt Count (150-450) k/uL ABG pH (7.35-7.45) ABG pCO2 (35-45) mmHg ABG pO2 (83-108) mmHg ABG HCO3 (21-25) mmol/L ABG Total CO2 (19-24) mmol/L ABG O2 Saturation (94-97) % Sodium (137-145) mmol/L Glucose (74-99) mg/dL POC Glucose (mg/dL) 138 H 138 H 138 H (70-110) mg/dL Calcium (8.4-10.2) mg/dL AST (17-59) U/L Total Protein (6.3-8.2) g/dL Albumin (3.5-5.0) g/dL Microbiology - Last 24 Hours (Table) 11/11/21 11:00 Gram Stain - Final Bronchoalviolar Lavage - Left Bronchial Washings Culture - Final Sandra glabrata Sandra albicans 11/10/21 06:45 Blood Culture - Preliminary Blood No Growth after 72 hours 11/10/21 06:45 Blood Culture - Preliminary Blood No Growth after 72 hours 11/11/21 11:00 Acid Fast Bacilli Smear - Final Bronchoalviolar Lavage - Left Acid Fast Bacilli Culture - Preliminary Assessment and Plan Plan: Acute hypoxic/hypercapneic respiratory failure, currently under investigation. High likelihood for an underlying pneumonia based on the chest x-ray findings. Patient is currently on broad-spectrum antibiotics. Follow-up blood gases from today shows improvement and acid base status. Bronchoscopy was done and the bronchioloalveolar lavage from the left upper lobe was collected. The patient is currently on broad-spectrum antibiotics. Follow-up blood gases showed improvement and acid base status. The patient is on a combination of Zosyn and Levaquin and vancomycin. Oxygenation is stable and the patient's pro calcitonin level is improving and the patient was taken off pressors. This morning, the patient is currently off pressors. The patient is afebrile. The pro calcitonin level is improving and the patient is afebrile. Chest x-ray was noted. Blood gases was noted. We'll give the patient is point is breathing trial if the patient shows adequate weaning parameters. Septic shock, improving and the patient was taken off sedation today and he was able to follow commands appropriately. He was also taken off pressors. acute latic acidosis, improved and LA is down to 1.3 NARENDRA, recovered CAD and patient is post acute NSTMI in [facility], currently under investigation, tmax 99.6 Morbid obesity, BMI 46.8-Weight loss measures and follow with PCP Diabetes mellitus type 2, on nsulin drip at 6.5 U/hr GERD Diabetic peripheral neuropathy Hyperlipidemia Essential hypertension Chronic pain syndrome. 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 Hepatic steatosis, nonalcoholic fatty liver disease Herniated disc in the lumbar spine Partial blindness of left eye Diabetic gastroparesis Anxiety depression On Cymbalta Chronic pain the patient has a morphine pump Previous COVID , 2020 Plan Continue supportive care Give the patient a sedation holiday Assessment weaning parameters Due to patient's protein is breathing trial Possibly extubated today to BiPAP Hemodynamically stable and the patient is currently off pressors Continue same antibiotic coverage Legionella urine antigen was negative Continue insulin drip Lovenox 120 mg subcu every 12 hours Continue enteral feeding for nutritional support The bronchioloalveolar lavage yielded no microbial growth. Note that this was collected after the patient was ordered and antibiotics. this is a critically care evaluation that was done more than 30 minutes We will attempt to extubate this patient today if possible. This is work in progress. Condition is critical and discussed the case with the . We'll continue to follow make further recommendations based on progress. Time with Patient: Greater than 30
--- NOTE | 2021-11-13 14:02 | P.PN ---
Subjective Progress Note Date: 11/13/21 Hospital course: This is a pleasant 51-year-old male , follows with Dr. Waggoner. patient has a right Charcot foot and also found to have osteomyelitis in October 2020. 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 Patient presented to ER with chest pain and shortness of breath. About a week ago patient was admitted [facility] hospital. Her chest pain. Had a cardiac stress test that was abnormal and a cardiac cath that showed nonocclusive disease and no intervention was done. Since presentation to the ER patient became progr essively more short of breath. Becoming less responsive. Was put on a BiPAP. Patient being becoming labored. Patient was seen by Dr. Veras from critical care. He is coming back to intubate the patient. Patient rather lethargic not really able to give on the much of a history. Received antibiotics. In the ICU. Getting bicarbonate. Admitted with bilateral pneumonia, acute hypoxic respiratory failure, delirium. Intubated November 11: ICU. Intubated./Ventilator. FiO2 60 PEEP of 5. Telemetry shows sinus rhythm. Drips include insulin, norepinephrine, IV heparin, propofol. This morning underwent bronchoscopy by Dr. Veras. Significant infectioned secretion obtained from the left bronchus. Discussed with the at the bedside. Has remained febrile. Will change IV heparin to subcu Lovenox. November 12: ICU: On the ventilator intubated with FiO2 59 PEEP of 5. Drips include insulin, norepinephrine, propofol, telemetry shows sinus rhythm. 2 feeding at 36 mL an hour. Jose Roberto colored tracheal secretions. Trial of DC propofol earlier today. Patient got agitated. 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 No history of alcohol or smoking. Family history: Bladder cancer 11/13/2021 Patient evaluated in the intensive care unit, he was extubated about 945 am today. Continues on nasal cannula 2L now with 97% oxygen saturation. Afebrile, heart rate 80, blood pressure 157/68. Remains afebrile. Continues with central line, on IV levofloxacin, IV Zosyn. Vancomycin has been discontinued. Bronchial washings showing panda glabrata, albicans. He does have a chronic wound on left foot which has a dressing over, he sees Dr Coleman weekly for this. INR today 1.0, patient is on coumadin at home, has been received lovenox 120 BID for prophylaxis here and his platelet count has slowly dropped now 103, hematology has been consulted for evaluation. He continues on insulin gtt, plan to transition today to home insulin once tolerating diet. He would also like to get up in the chair today. Review of Systems Constitutional: Denied any fatigue denied any fever. Cardio vascular: denied any chest pain, palpitations Gastrointestinal: denied any nausea, vomiting, diarrhea Pulmonary: No shortness of breath, No cough. Neurologic denied any new focal deficits. Complains of bilateral lower extremity pain. All inpatient medications were reviewed and appropriate changes in these medications as dictated in the interval history and assessment and plan. PHYSICAL EXAMINATION: GENERAL: The patient is alert and oriented x3, not in any acute distress. Well developed, well nourished. HEENT: Pupils are round and equally reacting to light. EOMI. No scleral icterus. No conjunctival pallor. Normocephalic, atraumatic. No pharyngeal erythema. No thyromegaly. CARDIOVASCULAR: S1 and S2 present. No murmurs, rubs, or gallops. PULMONARY: Chest is clear to auscultation, no wheezing or crackles. Lungs are diminished. ABDOMEN: Soft, nontender, nondistended, normoactive bowel sounds. No palpable organomegaly. MUSCULOSKELETAL: No joint swelling or deformity. EXTREMITIES: No cyanosis, clubbing, or pedal edema. Charcot foot. NEUROLOGICAL: Gross neurological examination did not reveal any focal deficits. SKIN: No rashes. Chronic wound bottom of left foot. INVESTIGATIONS, reviewed in the clinical context: November 13: white count 5.3, hgb 11.3, platelets 103, sodium 136, potassium 3.9, CO2 30, BUN 14, creatinine 0.75, calcium 7.6, AST 12 November 12: WBC 11.6 hemoglobin 11.1 platelets 123 potassium 4.1 creatinine 1.0 procalcitonin 2.3 November 11: WBC 21.7 hemoglobin 13.7 platelets 178 potassium 4.2 BUN 38 creatinine 1.5 for White count 12.9 hemoglobin 10.7 platelets 182 sodium 133 potassium 5.3 BUN 38 c reatinine 1.98 Lactic acid 3.1 lesion 1.4 Troponin I less than 0.012 CRP 1.6 Chest x-ray film personally reviewed by me-scattered inflammatory EKG tracing personally reviewed by me-sinus tachycardia rate 124 Assessment and plan: -Bilateral pneumonia, possible aspiration causing hypoxia: Patient has been extubated. IV Zosyn, IV levofloxacin. Bronchoscopy with lavage on November [address] Veras. Cultures showing panda. -Acute hypoxic respiratory failure secondary to pneumonia, : Extubated now on 3L nasal cannula Intubated November 10, extubated November 13 -Chronic left plantar diabetic wound Wound care per ID: Aquacel silver dressing change every 48 hours -Bilateral foot Charcot foot from diabetes -Morbid obesity, BMI 46.8 Weight loss measures and follow with PCP -Diabetes mellitus type 2, chronically on insulin uncontrolled with hyperglycemia : Blood sugar now in the 150's Insulin drip with plan to transition once patient is tolerating oral diet -GERD On Pepcid -Diabetic peripheral neuropathy On Lyrica -Hyperlipidemia Lipitor -Hypotensive and septic shock: Slow to respond Patient has been weaned of norepinephrine, blood pressure now in the 150s systolic. -Chronic pain syndrome. Morphine pain pump, patient can resume home pain medication -Primary osteoarthritis Pain medications as needed -Obstructive sleep apnea Uses CPAP -factor V Leyden mutation On Coumadin. 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 He has been extubated today. Being followed by multiple consultations including pulmonary title assistant, infectious diease, dietary. He is pending swallow evaluation to begin oral diet today. Can transition off insulin gtt once tolerating diet. Monitor blood pressure if continues to remain elevated will resume home blood pressure medications. Received dose of lovenox this am now holding for hematology consultation. Will repeat labs in the AM. Continue with local wound care to foot. Encourage incentive spirometer. PT/OT evaluation. The impression and plan of care has been dictated by Amparo Caballero, Nurse Practitioner as directed. Dr. Stephanie MD I have performed a history and physical examination and medical decision making of this patient, discussed the same with the dictator, and agree with the dictators assessment and plan as written, documented as a scribe. Based on total visit time, I have performed more than 50% of this visit. Objective - Vital Signs Vital signs: Vital Signs Temp 97.8 F 11/13/21 04:00 Pulse 80 11/13/21 13:00 Resp 13 11/13/21 13:00 BP 124/55 11/13/21 09:00 Pulse Ox 97 11/13/21 13:00 FiO2 50 11/13/21 12:00 Intake & Output 11/12/21 11/13/21 11/13/21 18:59 06:59 18:59 Intake Total 2325.295 2514.354 493.006 Output Total 815 1170 395 Balance 1837.088 6788.354 98.006 Weight 130.2 kg 130.2 kg Intake: IV 1558 1164 248 Arterial Line @ 3ml/hr 33 39 18 Levofloxacin 250Mg-D5w 50 Pmx 250 mg In Dextrose/ Water 1 50ml.bag @ 50 mls /hr IVPB HS ROBERTA Rx#: [id number] Piperacillin-Tazobactam 3 200 100 .375 gm In Sodium Chloride 0.9% 100 ml @ 25 mls/hr IVPB Q8HR [facility]ERT[facility] Rx# :[id number] Sodium Chloride 0.9% 1, 825 975 230 000 ml @ 75 mls/hr IV . [id number] [facility]ERTA Rx#:[id number] Vancomycin 500 Intake, IV Titration 404.295 831.354 179.006 Amount Insulin Regular 100 unit 7.171 129.768 26.681 In Sodium Chloride 0.9% 100 ml @ Per Protocol IV .Q0M ROBERTA Rx#:[id number] Norepinephrine 32 mg In 20.988 13.190 Sodium Chloride 0.9% 218 ml @ 0.05 MCG/KG/MIN 3.07 mls/hr IV .Q24H [facility]ERTA Rx#: [id number] Vancomycin 2,000 mg In 500 Sodium Chloride 0.9% 500 ml 500 ml @ 167 mls/hr IVPB Q12H [facility] Rx#: [id number] propofoL 1,000 mg In 376.136 188.396 152.325 Empty Bag 1 bag @ 20 MCG/ KG/MIN 15.785 mls/hr IV . Q6H21M [facility]ERTA Rx#:[id number] Tube Feeding 363 429 66 Other 90 Output: Urine 815 1170 395 Other: Voiding Method Indwelling Catheter Indwelling Catheter Indwelling Catheter ABP, PAP, CO, CI - Last Documented Arterial Blood Pressure 157/68 - Labs CBC & Chem 7: 11/13/21 04:00 11/13/21 04:00 Labs: Abnormal Lab Results - Last 24 Hours (Table) 11/12/21 11/12/21 11/12/21 Range/Units 13:52 15:08 17:31 RBC (4.30-5.90) m/uL Hgb (13.0-17.5) gm/dL Hct (39.0-53.0) % RDW (11.5-15.5) % Plt Count (150-450) k/uL ABG pH (7.35-7.45) ABG pCO2 (35-45) mmHg ABG pO2 (83-108) mmHg ABG HCO3 (21-25) mmol/L ABG Total CO2 (19-24) mmol/L ABG O2 Saturation (94-97) % Sodium (137-145) mmol/L Glucose (74-99) mg/dL POC Glucose (mg/dL) 164 H 160 H 162 H (70-110) mg/dL Calcium (8.4-10.2) mg/dL AST (17-59) U/L Total Protein (6.3-8.2) g/dL Albumin (3.5-5.0) g/dL 11/12/21 11/12/21 11/12/21 Range/Units 18:56 19:57 21:05 RBC (4.30-5.90) m/uL Hgb (13.0-17.5) gm/dL Hct (39.0-53.0) % RDW (11.5-15.5) % Plt Count (150-450) k/uL ABG pH (7.35-7.45) ABG pCO2 (35-45) mmHg ABG pO2 (83-108) mmHg ABG HCO3 (21-25) mmol/L ABG Total CO2 (19-24) mmol/L ABG O2 Saturation (94-97) % Sodium (137-145) mmol/L Glucose (74-99) mg/dL POC Glucose (mg/dL) 161 H 158 H 167 H (70-110) mg/dL Calcium (8.4-10.2) mg/dL AST (17-59) U/L Total Protein (6.3-8.2) g/dL Albumin (3.5-5.0) g/dL 11/12/21 11/12/21 11/13/21 Range/Units 22:09 23:15 00:04 RBC (4.30-5.90) m/uL Hgb (13.0-17.5) gm/dL Hct (39.0-53.0) % RDW (11.5-15.5) % Plt Count (150-450) k/uL ABG pH (7.35-7.45) ABG pCO2 (35-45) mmHg ABG pO2 (83-108) mmHg ABG HCO3 (21-25) mmol/L ABG Total CO2 (19-24) mmol/L ABG O2 Saturation (94-97) % Sodium (137-145) mmol/L Glucose (74-99) mg/dL POC Glucose (mg/dL) 175 H 160 H 157 H (70-110) mg/dL Calcium (8.4-10.2) mg/dL AST (17-59) U/L Total Protein (6.3-8.2) g/dL Albumin (3.5-5.0) g/dL 11/13/21 11/13/21 11/13/21 Range/Units 01:07 02:03 03:04 RBC (4.30-5.90) m/uL Hgb (13.0-17.5) gm/dL Hct (39.0-53.0) % RDW (11.5-15.5) % Plt Count (150-450) k/uL ABG pH (7.35-7.45) ABG pCO2 (35-45) mmHg ABG pO2 (83-108) mmHg ABG HCO3 (21-25) mmol/L ABG Total CO2 (19-24) mmol/L ABG O2 Saturation (94-97) % Sodium (137-145) mmol/L Glucose (74-99) mg/dL POC Glucose (mg/dL) 156 H 179 H 182 H (70-110) mg/dL Calcium (8.4-10.2) mg/dL AST (17-59) U/L Total Protein (6.3-8.2) g/dL Albumin (3.5-5.0) g/dL 11/13/21 11/13/21 11/13/21 Range/Units 04:00 04:00 04:28 RBC 3.58 L (4.30-5.90) m/uL Hgb 11.3 L (13.0-17.5) gm/dL Hct 33.0 L (39.0-53.0) % RDW 16.3 H (11.5-15.5) % Plt Count 103 L (150-450) k/uL ABG pH (7.35-7.45) ABG pCO2 (35-45) mmHg ABG pO2 (83-108) mmHg ABG HCO3 (21-25) mmol/L ABG Total CO2 (19-24) mmol/L ABG O2 Saturation (94-97) % Sodium 136 L (137-145) mmol/L Glucose 156 H (74-99) mg/dL POC Glucose (mg/dL) 155 H (70-110) mg/dL Calcium 7.6 L (8.4-10.2) mg/dL AST 12 L (17-59) U/L Total Protein 4.6 L (6.3-8.2) g/dL Albumin 2.3 L (3.5-5.0) g/dL 11/13/21 11/13/21 11/13/21 Range/Units 05:07 06:04 06:09 RBC (4.30-5.90) m/uL Hgb (13.0-17.5) gm/dL Hct (39.0-53.0) % RDW (11.5-15.5) % Plt Count (150-450) k/uL ABG pH 7.34 L (7.35-7.45) ABG pCO2 56 H (35-45) mmHg ABG pO2 128 H (83-108) mmHg ABG HCO3 30 H (21-25) mmol/L ABG Total CO2 32 H (19-24) mmol/L ABG O2 Saturation 98.9 H (94-97) % Sodium (137-145) mmol/L Glucose (74-99) mg/dL POC Glucose (mg/dL) 148 H 163 H (70-110) mg/dL Calcium (8.4-10.2) mg/dL AST (17-59) U/L Total Protein (6.3-8.2) g/dL Albumin (3.5-5.0) g/dL 11/13/21 11/13/21 11/13/21 Range/Units 07:01 08:03 08:57 RBC (4.30-5.90) m/uL Hgb (13.0-17.5) gm/dL Hct (39.0-53.0) % RDW (11.5-15.5) % Plt Count (150-450) k/uL ABG pH (7.35-7.45) ABG pCO2 (35-45) mmHg ABG pO2 (83-108) mmHg ABG HCO3 (21-25) mmol/L ABG Total CO2 (19-24) mmol/L ABG O2 Saturation (94-97) % Sodium (137-145) mmol/L Glucose (74-99) mg/dL POC Glucose (mg/dL) 173 H 165 H 150 H (70-110) mg/dL Calcium (8.4-10.2) mg/dL AST (17-59) U/L Total Protein (6.3-8.2) g/dL Albumin (3.5-5.0) g/dL 11/13/21 11/13/21 11/13/21 Range/Units 10:18 11:25 12:10 RBC (4.30-5.90) m/uL Hgb (13.0-17.5) gm/dL Hct (39.0-53.0) % RDW (11.5-15.5) % Plt Count (150-450) k/uL ABG pH (7.35-7.45) ABG pCO2 (35-45) mmHg ABG pO2 (83-108) mmHg ABG HCO3 (21-25) mmol/L ABG Total CO2 (19-24) mmol/L ABG O2 Saturation (94-97) % Sodium (137-145) mmol/L Glucose (74-99) mg/dL POC Glucose (mg/dL) 127 H 138 H 138 H (70-110) mg/dL Calcium (8.4-10.2) mg/dL AST (17-59) U/L Total Protein (6.3-8.2) g/dL Albumin (3.5-5.0) g/dL 11/13/21 Range/Units 13:29 RBC (4.30-5.90) m/uL Hgb (13.0-17.5) gm/dL Hct (39.0-53.0) % RDW (11.5-15.5) % Plt Count (150-450) k/uL ABG pH (7.35-7.45) ABG pCO2 (35-45) mmHg ABG pO2 (83-108) mmHg ABG HCO3 (21-25) mmol/L ABG Total CO2 (19-24) mmol/L ABG O2 Saturation (94-97) % Sodium (137-145) mmol/L Glucose (74-99) mg/dL POC Glucose (mg/dL) 138 H (70-110) mg/dL Calcium (8.4-10.2) mg/dL AST (17-59) U/L Total Protein (6.3-8.2) g/dL Albumin (3.5-5.0) g/dL Microbiology - Last 24 Hours (Table) 11/11/21 11:00 Gram Stain - Final Bronchoalviolar Lavage - Left Bronchial Washings Culture - Final Panda glabrata Panda albicans 11/10/21 06:45 Blood Culture - Preliminary Blood No Growth after 72 hours 11/10/21 06:45 Blood Culture - Preliminary Blood No Growth after 72 hours 11/11/21 11:00 Acid Fast Bacilli Smear - Final Bronchoalviolar Lavage - Left Acid Fast Bacilli Culture - Preliminary Assessment and Plan Time with Patient: Less than 30
[2021-11-13] MEDS: ONDANSETRON 4 MG/2 ML VIAL IVP PRN ×2 (14:51→21:40)
[2021-11-13 15:12] LABS: Glucose,Whole Blood 138 mg/dL (70-110)
--- NOTE | 2021-11-13 15:20 | P.CONS ---
History of Present Illness - Reason for Consult Consult date: 11/13/21 Thrombocytopenia - History of Present Illness Patient is a 51 year old male in the care of ICU for sepsis. He has known his tory of Factor V with DVTs in past. He was therapeutic on warfarin as outpatient until admitted to hospital. He was extubated this am and is sitting up in bed receiving breathing treatment. He has mild thrombocytopenia, platelets 103K. He is receiving therapeutic lovenox dosing at this time. Review of Systems All systems: negative Constitutional: Reports as per HPI Past Medical History Past Medical History: Blood Disorder, Diabetes Mellitus, Deep Vein Thrombosis (DVT), GERD/Reflux, Hyperlipidemia, Hypertension, Musculoskeletal Disorder, Osteoarthritis (OA), Sleep Apnea/CPAP/BIPAP Additional Past Medical History / Comment(s): IDDM type II, neuropathy bilateral feet with R foot worse, charcot foot R/L, currently sores L foot and is NWB, recent surgery R foot with boot an can wt bear as tolerated, gastroparesis, hiatal hernia, esophageal narrowing (scarring)/past dysphagia/has had dilations, factor V leiden, 2 DVT's L leg, another superficial blood clot L leg, chronic back pain/has pain pump, DDD and bulging discs, legally blind L eye since , migraines, PVD, fatty liver, MEL with trilogy machine. Last Myocardial Infarction Date:: 11/07/21 History of Any Multi-Drug Resistant Organisms: VRE Year Discovered:: 07/01/21 MDRO Source:: VRE FOOT Past Surgical History: Tonsillectomy Additional Past Surgical History / Comment(s): R foot/ankle surgery at [facility] with bone removal/hardware inserted, I&D L foot, pain pump insertion, colonoscopy, EGDs with dilations, UVPPP, eye surgery as an infant. Past Anesthesia/Blood Transfusion Reactions: Family History of Problems w/ Anesthesia Additional Past Anesthesia/Blood Transfusion Reaction / Comm: STATES "MOTHER CRASHES" "passes out"-with anesthesia,"needs to have a indoor sports centre manager dose" Additional Psychological History / Comment(s): Pt resides with his spouse. He has a cane but has been using a walker more often lately. He has a medishoe on L foot which is nonwt bearing and a boot on r leg with which he can bear wt as tolerated. He cannot drive, his spouse drives. He has home care thru [facility]. He has glucometer and a trilogy vent machine. - Past Family History Father Family Medical History: Cancer Additional Family Medical History / Comment(s): BLADDER CANCER Mother Family Medical History: CVA/TIA, Diabetes Mellitus, Myocardial Infarction ([place]) Medications and Allergies Home Medications Medication Instructions Recorded Confirmed Type Latanoprost Ophth [Xalatan 0.005%] 1 drop BOTH EYES HS 01/23/14 11/10/21 History Simvastatin [Zocor] 20 mg PO HS 01/23/14 11/10/21 History Loratadine [Claritin] 10 mg PO DAILY 01/28/16 11/10/21 History metFORMIN HCL [Glucophage] 1,000 mg PO BID 01/28/16 11/10/21 History Morphine Pain Pump 1 dose INTRATHECA CONTINUOUS 05/05/17 11/10/21 History Ferrous Sulfate [Iron (65 MG 325 mg PO BID 10/25/20 11/10/21 History Elemental)] Fluticasone Propionate [Flovent 2 puff INHALATION RT-BID 10/25/20 11/10/21 History Hfa 220 mcg] Furosemide [Lasix] 40 mg PO DAILY 10/25/20 11/10/21 History SUMAtriptan succinate [Imitrex] 50 mg PO DAILY PRN 10/25/20 11/10/21 History INSULIN LISPRO (HumaLOG) [humaLOG] See Protocol SQ ACHS 05/15/21 11/10/21 History Lubiprostone [Amitiza] 24 mcg PO BID 05/15/21 11/10/21 History Potassium Chloride ER [K-Dur 10] 10 meq PO DAILY 05/15/21 11/10/21 History Warfarin Sodium 10 mg PO HS 05/15/21 11/10/21 History lisinopriL [Zestril] 2.5 mg PO DAILY 05/15/21 11/10/21 History Acetaminophen Tab [Tylenol] 650 mg PO Q6HR PRN tab 07/04/21 11/10/21 Rx HYDROcodone/APAP 10-325MG [[place] 1 tab PO BID #6 tab 07/04/21 11/10/21 Rx 10-325] Pregabalin [Lyrica] 200 mg PO BID #6 cap 07/04/21 11/10/21 Rx Insulin Glargine,Hum.rec.anlog 50 unit SQ HS 11/10/21 11/10/21 History [Lantus Solostar Pen] Isosorbide Mononitrate ER [Imdur] 30 mg PO DAILY 11/10/21 11/10/21 History Ketoconazole 2% Cream [Nizoral 2%] 1 applic TOPICAL DAILY 11/10/21 11/10/21 History Omeprazole 20 mg PO BID 11/10/21 11/10/21 History Allergies Allergy/AdvReac Type Severity Reaction Status Date / Time adhesive Allergy Rash/Hives Verified 11/10/21 08:41 Physical Exam Vitals: Vital Signs Temp Pulse Resp BP Pulse Ox FiO2 11/13/21 15:00 73 16 97 11/13/21 14:00 79 12 96 11/13/21 13:00 80 13 97 11/13/21 12:00 84 26 H 98 50 11/13/21 11:25 77 11/13/21 11:15 98 11/13/21 11:12 71 11/13/21 11:00 74 19 98 11/13/21 10:00 74 16 97 11/13/21 09:00 57 L 18 124/55 99 50 11/13/21 08:00 56 L 24 124/55 99 50 11/13/21 07:41 54 L 11/13/21 07:32 55 L 11/13/21 07:28 50 11/13/21 07:00 58 L 18 124/55 98 11/13/21 06:00 61 20 124/55 98 11/13/21 05:00 63 18 124/55 97 11/13/21 04:00 97.8 F 65 19 124/55 98 50 11/13/21 03:45 50 11/13/21 03:00 55 L 18 124/55 98 11/13/21 02:00 56 L 18 124/55 98 11/13/21 01:00 58 L 18 124/55 96 11/13/21 00:15 70 19 124/55 95 11/13/21 00:00 98.6 F 60 19 124/55 98 50 11/12/21 23:52 50 11/12/21 23:00 52 L 18 124/55 98 11/12/21 22:00 56 L 18 124/55 98 11/12/21 21:00 55 L 18 124/55 98 11/12/21 20:00 99.1 F 57 L 23 124/55 96 50 11/12/21 19:38 50 11/12/21 19:36 54 L 11/12/21 19:26 56 L 11/12/21 19:00 53 L 20 98 50 11/12/21 18:00 53 L 18 98 50 11/12/21 17:00 64 20 97 50 11/12/21 16:00 75 18 98 50 11/12/21 15:48 78 25 H 11/12/21 15:39 78 23 11/12/21 15:30 50 Intake and Output 11/13/21 11/13/21 11/13/21 06:59 14:59 22:59 Intake Total 1906.861 516.006 23 Output Total 705 445 60 Balance 1201.861 71.006 -37 Intake: IV 802 271 23 Arterial Line @ 3ml/hr 27 21 3 Piperacillin-Tazobactam 3 100 .375 gm In Sodium Chloride 0.9% 100 ml @ 25 mls/hr IVPB Q8HR ROBERTA Rx# :[id number] Sodium Chloride 0.9% 1, 675 250 20 000 ml @ 75 mls/hr IV . [id number] ROBERTA Rx#:[id number] Intake, IV Titration 747.861 179.006 Amount Insulin Regular 100 unit 46.275 26.681 In Sodium Chloride 0.9% 100 ml @ Per Protocol IV .Q0M ROBERTA Rx#:[id number] Norepinephrine 32 mg In 13.190 Sodium Chloride 0.9% 218 ml @ 0.05 MCG/KG/MIN 3.07 mls/hr IV .Q24H ROBERTA Rx#: [id number] Vancomycin 2,000 mg In 500 Sodium Chloride 0.9% 500 ml 500 ml @ 167 mls/hr IVPB Q12H ROBERTA Rx#: [id number] propofoL 1,000 mg In 188.396 152.325 Empty Bag 1 bag @ 20 MCG/ KG/MIN 15.785 mls/hr IV . Q6H21M ROBERTA Rx#:[id number] Tube Feeding 297 66 Other 60 Output: Urine 705 445 60 Other: Voiding Method Indwelling Catheter Indwelling Catheter Weight 130.2 kg 130.2 kg ABP, PAP, CO, CI - Last 8 Hours Arterial Blood Pressure 140/64 Arterial Blood Pressure 159/69 Arterial Blood Pressure 157/68 Arterial Blood Pressure 171/75 Arterial Blood Pressure 161/73 Arterial Blood Pressure 158/77 Arterial Blood Pressure 108/53 Arterial Blood Pressure 103/52 - EENT Eyes: EOMI ENT: NA/AT - Neck Neck: normal ROM - Respiratory Respiratory: bilateral: diminished - Cardiovascular Rhythm: regularly irregular - Gastrointestinal General gastrointestinal: soft - Integumentary Integumentary: pale - Musculoskeletal Musculoskeletal: generalized weakness Results CBC & Chem 7: 11/13/21 04:00 11/13/21 04:00 Labs: Abnormal Lab Results - Last 24 Hours (Table) 11/12/21 11/12/21 11/12/21 Range/Units 17:31 18:56 19:57 RBC (4.30-5.90) m/uL Hgb (13.0-17.5) gm/dL Hct (39.0-53.0) % RDW (11.5-15.5) % Plt Count (150-450) k/uL ABG pH (7.35-7.45) ABG pCO2 (35-45) mmHg ABG pO2 (83-108) mmHg ABG HCO3 (21-25) mmol/L ABG Total CO2 (19-24) mmol/L ABG O2 Saturation (94-97) % Sodium (137-145) mmol/L Glucose (74-99) mg/dL POC Glucose (mg/dL) 162 H 161 H 158 H (70-110) mg/dL Calcium (8.4-10.2) mg/dL AST (17-59) U/L Total Protein (6.3-8.2) g/dL Albumin (3.5-5.0) g/dL 11/12/21 11/12/21 11/12/21 Range/Units 21:05 22:09 23:15 RBC (4.30-5.90) m/uL Hgb (13.0-17.5) gm/dL Hct (39.0-53.0) % RDW (11.5-15.5) % Plt Count (150-450) k/uL ABG pH (7.35-7.45) ABG pCO2 (35-45) mmHg ABG pO2 (83-108) mmHg ABG HCO3 (21-25) mmol/L ABG Total CO2 (19-24) mmol/L ABG O2 Saturation (94-97) % Sodium (137-145) mmol/L Glucose (74-99) mg/dL POC Glucose (mg/dL) 167 H 175 H 160 H (70-110) mg/dL Calcium (8.4-10.2) mg/dL AST (17-59) U/L Total Protein (6.3-8.2) g/dL Albumin (3.5-5.0) g/dL 11/13/21 11/13/21 11/13/21 Range/Units 00:04 01:07 02:03 RBC (4.30-5.90) m/uL Hgb (13.0-17.5) gm/dL Hct (39.0-53.0) % RDW (11.5-15.5) % Plt Count (150-450) k/uL ABG pH (7.35-7.45) ABG pCO2 (35-45) mmHg ABG pO2 (83-108) mmHg ABG HCO3 (21-25) mmol/L ABG Total CO2 (19-24) mmol/L ABG O2 Saturation (94-97) % Sodium (137-145) mmol/L Glucose (74-99) mg/dL POC Glucose (mg/dL) 157 H 156 H 179 H (70-110) mg/dL Calcium (8.4-10.2) mg/dL AST (17-59) U/L Total Protein (6.3-8.2) g/dL Albumin (3.5-5.0) g/dL 11/13/21 11/13/21 11/13/21 Range/Units 03:04 04:00 04:00 RBC 3.58 L (4.30-5.90) m/uL Hgb 11.3 L (13.0-17.5) gm/dL Hct 33.0 L (39.0-53.0) % RDW 16.3 H (11.5-15.5) % Plt Count 103 L (150-450) k/uL ABG pH (7.35-7.45) ABG pCO2 (35-45) mmHg ABG pO2 (83-108) mmHg ABG HCO3 (21-25) mmol/L ABG Total CO2 (19-24) mmol/L ABG O2 Saturation (94-97) % Sodium 136 L (137-145) mmol/L Glucose 156 H (74-99) mg/dL POC Glucose (mg/dL) 182 H (70-110) mg/dL Calcium 7.6 L (8.4-10.2) mg/dL AST 12 L (17-59) U/L Total Protein 4.6 L (6.3-8.2) g/dL Albumin 2.3 L (3.5-5.0) g/dL 11/13/21 11/13/21 11/13/21 Range/Units 04:28 05:07 06:04 RBC (4.30-5.90) m/uL Hgb (13.0-17.5) gm/dL Hct (39.0-53.0) % RDW (11.5-15.5) % Plt Count (150-450) k/uL ABG pH (7.35-7.45) ABG pCO2 (35-45) mmHg ABG pO2 (83-108) mmHg ABG HCO3 (21-25) mmol/L ABG Total CO2 (19-24) mmol/L ABG O2 Saturation (94-97) % Sodium (137-145) mmol/L Glucose (74-99) mg/dL POC Glucose (mg/dL) 155 H 148 H 163 H (70-110) mg/dL Calcium (8.4-10.2) mg/dL AST (17-59) U/L Total Protein (6.3-8.2) g/dL Albumin (3.5-5.0) g/dL 11/13/21 11/13/21 11/13/21 Range/Units 06:09 07:01 08:03 RBC (4.30-5.90) m/uL Hgb (13.0-17.5) gm/dL Hct (39.0-53.0) % RDW (11.5-15.5) % Plt Count (150-450) k/uL ABG pH 7.34 L (7.35-7.45) ABG pCO2 56 H (35-45) mmHg ABG pO2 128 H (83-108) mmHg ABG HCO3 30 H (21-25) mmol/L ABG Total CO2 32 H (19-24) mmol/L ABG O2 Saturation 98.9 H (94-97) % Sodium (137-145) mmol/L Glucose (74-99) mg/dL POC Glucose (mg/dL) 173 H 165 H (70-110) mg/dL Calcium (8.4-10.2) mg/dL AST (17-59) U/L Total Protein (6.3-8.2) g/dL Albumin (3.5-5.0) g/dL 11/13/21 11/13/21 11/13/21 Range/Units 08:57 10:18 11:25 RBC (4.30-5.90) m/uL Hgb (13.0-17.5) gm/dL Hct (39.0-53.0) % RDW (11.5-15.5) % Plt Count (150-450) k/uL ABG pH (7.35-7.45) ABG pCO2 (35-45) mmHg ABG pO2 (83-108) mmHg ABG HCO3 (21-25) mmol/L ABG Total CO2 (19-24) mmol/L ABG O2 Saturation (94-97) % Sodium (137-145) mmol/L Glucose (74-99) mg/dL POC Glucose (mg/dL) 150 H 127 H 138 H (70-110) mg/dL Calcium (8.4-10.2) mg/dL AST (17-59) U/L Total Protein (6.3-8.2) g/dL Albumin (3.5-5.0) g/dL 11/13/21 11/13/21 11/13/21 Range/Units 12:10 13:29 15:11 RBC (4.30-5.90) m/uL Hgb (13.0-17.5) gm/dL Hct (39.0-53.0) % RDW (11.5-15.5) % Plt Count (150-450) k/uL ABG pH (7.35-7.45) ABG pCO2 (35-45) mmHg ABG pO2 (83-108) mmHg ABG HCO3 (21-25) mmol/L ABG Total CO2 (19-24) mmol/L ABG O2 Saturation (94-97) % Sodium (137-145) mmol/L Glucose (74-99) mg/dL POC Glucose (mg/dL) 138 H 138 H 138 H (70-110) mg/dL Calcium (8.4-10.2) mg/dL AST (17-59) U/L Total Protein (6.3-8.2) g/dL Albumin (3.5-5.0) g/dL Microbiology - Last 24 Hours (Table) 11/11/21 11:00 Gram Stain - Final Bronchoalviolar Lavage - Left Bronchial Washings Culture - Final Sandra glabrata Sandra albicans 11/10/21 06:45 Blood Culture - Preliminary Blood No Growth after 72 hours 11/10/21 06:45 Blood Culture - Preliminary Blood No Growth after 72 hours 11/11/21 11:00 Acid Fast Bacilli Smear - Final Bronchoalviolar Lavage - Left Acid Fast Bacilli Culture - Preliminary Assessment and Plan (1) Acute exacerbation of chronic obstructive pulmonary disease Current Visit: Yes Status: Acute Code(s): J44.1 - CHRONIC OBSTRUCTIVE PULMONARY DISEASE W (ACUTE) EXACERBATION SNOMED Code(s): 748558571 (2) Community acquired pneumonia Current Visit: Yes Status: Acute Code(s): J18.9 - PNEUMONIA, UNSPECIFIED ORGANISM SNOMED Code(s): 062305688 (3) Hypoxia Current Visit: Yes Status: Acute Code(s): R09.02 - HYPOXEMIA SNOMED Code(s): 384505128 (4) Factor 5 Leiden mutation, heterozygous Current Visit: No Status: Chronic Code(s): D68.51 - ACTIVATED PROTEIN C RESISTANCE SNOMED Code(s): 644895684 (5) Thrombocytopenia Narrative/Plan: Mild, 103K. No invertention needed at this time, may continue therapeutic AC therapy for known hypercoagulable state. Most likely related to acute infection/Inflammation and Anti-fungal/Antibiotics Monitor for bleeding Monitor CBC daily Less likely HIT will monitor Dr. Snow: I have completed the full history and physical and developed the above impression and plan, agree with dictation, dictated as a ascribe. Current Visit: Yes Status: Acute Code(s): D69.6 - THROMBOCYTOPENIA, UNSPECIFIED SNOMED Code(s): 210903898 Plan: Patient was seen and discussed with Jenny Mortensen NP and I agree with the plan as outlined. Thrombocytopenia is most likely reactive to underlying pneumonia on presentation. Mr. Lynne was just extubated upon our assessment. We anticipate improvement of his thrombocytopenia as the underlying pneumonia improves with treatment. Should his platelets continue to downtrend, PF4 Ab can be obtained as a part of HIT workup. Anticoagulation may be continued at dose of 1 mg/kg BID today, followed by resumption of warfarin tomorrow pending clearance for PO meds following extubation.
[2021-11-13 16:09] LABS: Glucose,Whole Blood 136 mg/dL (70-110)
[2021-11-13] MEDS: SODIUM CHLORIDE 0.9% 500 ML 500 ML IV SCH (17:27)
[2021-11-13 18:04] LABS: Glucose,Whole Blood 136 mg/dL (70-110)
[2021-11-13 19:10] LABS: Glucose,Whole Blood 141 mg/dL (70-110)
[2021-11-13 20:03] LABS: Glucose,Whole Blood 155 mg/dL (70-110)
[2021-11-13] MEDS: LEVOFLOXACIN 250MG-D5W PMX 250 MG in DEXTROSE/WATER 1 50ML.BAG IVPB SCH (20:19)
[2021-11-13] MEDS ORDERED: POTASSIUM CHLORIDE ER 20 MEQ TAB.ER PO SCH (21:00)
[2021-11-13 21:22] LABS: Glucose,Whole Blood 175 mg/dL (70-110)
[2021-11-13 22:12] LABS: Glucose,Whole Blood 163 mg/dL (70-110)
[2021-11-13] MEDS: HYDROmorphone 1 MG/ML 1 ML SYRINGE IVP PRN (23:07)
[2021-11-13 23:20] LABS: Glucose,Whole Blood 141 mg/dL (70-110)
[2021-11-14 00:11] LABS: Glucose,Whole Blood 131 mg/dL (70-110)
[2021-11-14 01:10] LABS: Glucose,Whole Blood 145 mg/dL (70-110)
[2021-11-14 01:53] LABS: Glucose,Whole Blood 135 mg/dL (70-110)
[2021-11-14 02:47] LABS: Glucose,Whole Blood 139 mg/dL (70-110)
[2021-11-14] MEDS: ONDANSETRON 4 MG/2 ML VIAL IVP PRN (03:21)
[2021-11-14] MEDS: HYDROmorphone 1 MG/ML 1 ML SYRINGE IVP PRN (03:42)
[2021-11-14 03:54] LABS: Glucose,Whole Blood 145 mg/dL (70-110)
[2021-11-14 05:03] LABS: Glucose,Whole Blood 141 mg/dL (70-110)
[2021-11-14 05:52] LABS: Glucose,Whole Blood 131 mg/dL (70-110)
[2021-11-14 06:02] LABS: HCT 32.6 % (39.0-53.0); HGB 10.5 gm/dL (13.0-17.5); MCH 28.7 pg (25.0-35.0); MCHC 32.1 g/dL (31.0-37.0); MCV 89.5 fL (80.0-100.0); Mean Platelet Volume 9.6; Platelet Count 111 k/uL (150-450); RBC 3.65 m/uL (4.30-5.90); RDW 15.2 % (11.5-15.5); WBC 4.7 k/uL (3.8-10.6)
[2021-11-14] MEDS: NOREPINEPHRINE 32 MG in SODIUM CHLORIDE 0.9% 218 ML IV SCH (06:15)
[2021-11-14 06:27] LABS: Prothrombin Time 10.7 sec (9.0-12.0)
[2021-11-14 06:31] LABS: ALT 16 U/L (4-49); AST 22 U/L (17-59); African American GFR (CKD) >90 (>60 ml/min/1.73 sqM); Albumin 2.4 g/dL (3.5-5.0); Alkaline Phosphatase 102 U/L (38-126); Anion Gap 4 mmol/L; Blood Urea Nitrogen 11 mg/dL (9-20); Calcium 7.9 mg/dL (8.4-10.2); Carbon Dioxide 29 mmol/L (22-30); Chloride 105 mmol/L (98-107); Glucose 136 mg/dL (74-99); Non-African American GFR(CKD) >90 (>60 ml/min/1.73 sqM); Potassium 3.8 mmol/L (3.5-5.1); Sodium 138 mmol/L (137-145); Total Bilirubin 1.1 mg/dL (0.2-1.3); Total Protein 4.9 g/dL (6.3-8.2)
[2021-11-14 07:01] LABS: Glucose,Whole Blood 137 mg/dL (70-110)
[2021-11-14] MEDS ORDERED: Potassium Replacement Protocol 1 EACH MISC MISCELLANE PRN (07:11)
[2021-11-14] MEDS: POTASSIUM CHLORIDE 10 MEQ in WATER FOR INJECTION 1 100ML.BAG IVPB SCH ×2 (07:18→09:08)
[2021-11-14] MEDS: IPRATROPIUM-ALBUTEROL 3 ML NEB INHALATION SCH ×4 (07:48→19:52)
[2021-11-14 08:05] LABS: Glucose,Whole Blood 136 mg/dL (70-110)
--- NOTE | 2021-11-14 08:17 | XR ---
EXAMINATION TYPE: XR chest 1V portable DATE OF EXAM: 11/14/2021 COMPARISON: Chest x-ray 11/13/2021 HISTORY: Extubated, abnormal chest x-ray TECHNIQUE: Single frontal view of the chest is obtained. FINDINGS: There is been interval improvement in aeration. Right hemidiaphragm is elevated. Cardiac m ediastinal silhouette likely stable accounting for differences in technique. Endotracheal tube and NG tube have been removed. Right jugular central venous catheter remains in place, distal tip is in the right atrium. No evident pneumothorax or sizable effusion. IMPRESSION: Suspect improvement in patient's volume status, aeration, additional follow-up recommend ed
[2021-11-14] MEDS: PANTOPRAZOLE 40 MG/10 ML VIAL IV SCH (09:08)
[2021-11-14] MEDS: PIPERACILLIN-TAZOBACTAM 3.375 GM in SODIUM CHLORIDE 0.9% 100 ML IVPB SCH ×2 (09:08→15:06)
[2021-11-14] MEDS: ENOXAPARIN 120 MG/0.8 ML SYRINGE SQ SCH ×2 (09:08→20:57)
[2021-11-14] MEDS: FUROSEMIDE 40 MG TAB PO SCH (09:44)
[2021-11-14] MEDS: PREGABALIN 100 MG CAP PO SCH ×2 (09:45→20:56)
[2021-11-14 11:56] LABS: Glucose,Whole Blood 204 mg/dL (70-110)
[2021-11-14] MEDS: INSULIN ASPART (NovoLOG) 100 UNIT/ML VIAL SQ SCH ×3 (12:22→21:07)
--- NOTE | 2021-11-14 13:36 | P.PN ---
Subjective Progress Note Date: 11/14/21 This is a 51-year-old male patient came into the emergency department because of chest pain. Note that the patient was in [facility] for chest pain approximately week ago and the patient was given a cardiac evaluation which included a cardiac stress and that came back abnormal and following that the patient was given a cardiac catheterization that showed nonocclusive disease and no intervention was done. Yesterday, the patient came in to the emergency department as the patient was complaining of increased shortness of breath and chest pain. His chest x-ray showed some cardiomegaly and increased bilateral interstitial pulmonary infiltrates which also raises the concern for an underlying pneumonia. While in the emergency, the patient started having episodes of fever and he became more obtunded and short of breath. At that point, the patient was started on BiPAP for respiratory support. The patient was started on a BiPAP at a pressure of 14/5 cm water and FiO2 of 40%. The pH was at 7.17 with a pCO2 of 64 and pO2 of 83 and this was not an FiO2 of 50%. At a time of my arrival, the patient's breathing was still labored and the patient was quite lethargic and obtunded. He was able to generate an adequate tidal volume of 400 mL. Nevertheless, the patient was still having shortness of breath and her breathing was labored with a high minute ventilation and a high respiratory rate. The patient was already given a total of 2 L of IV fluid and the patient was given a combination of Rocephin and Zithromax covering for a pneumonia. The workup that has been done showed a white cell count of 23 with a hemoglobin of 13.7 and a platelet count of 219. Normal coagulation profile. Lactic acid level was at 4.1. Blood sugars were elevated at around 370. UA showed +2 glucose, +1 protein and +9 white cells. The coagulation profile was within normal limits. COVID 19 by PCR came back also negative. After being transferred to the intensive care unit, the patient was monitored very closely and subsequently was decided to LAD and intubated the patient put him on a mechanical ventilator. Note that the patient had a triple lumen catheter established in the emergency department. The patient was also started on low- dose norepinephrine running at 0.05 mg/kg per minute. He was started on bicarb infusion. Noted the patient is a chronic CO2 retainer patient has a relatively elevated serum bicarbonate level at baseline. On today's evaluation of 11/11/2021, the patient is being seen for a follow-up. The patient remains intubated on mechanical ventilator. On today's evaluation, the patient remains on a propofol which is running at 50 mcg/kg per minute. The patient is on a mechanical ventilator on assist control mode at the rate of 18 without volume of 400 and FiO2 of 50% with a PEEP of 5. The blood gases showed a pH of 7.38 with a pCO2 of 53 and pO2 of 11. The peak airway pressure is 29. His pro-calcitonin level is at 5.3 supporting the possibility of underlying bacterial infection and same time the patient was having episodes of fever with a T-max of 101.4F. Note that the patient's overall acid base status is improved as the patient was also being given bicarb infusion rate of 100 mL an hour. The blood gases from today shows improvement with a pH of 7.38 And a serum bicarbonate is currently at 32 which is very close to the patient's baseline. The patient has been adequately resuscitated IV fluids. He remains on norepinephrine infusion running at 0.1 g respiratory per minute. Urine output is adequate. The patient had an echocardiogram that showed a preserved LV function with an ejection fraction of 65%. The patient remains on insulin d rip at 7.5 units an hour and the patient is also on IV heparin. On today's evaluation, the white cell count of 21 with a hemoglobin 15.7. Serum bicarb is at 32 with a sodium level of 139 and a BUN of 38 a CAT scan of 1.5. No other significant events overnight. Antibiotic coverage has been broadened to include a combination of Zosyn, Levaquin and vancomycin. Note that the patient's cultures are all negative thus far. Blood sugars under better control for now. 11/12/2021, the patient is being seen for a follow-up. The patient remains intubated on a mechanical ventilator for bilateral pneumonia and sepsis. This morning, the patient remains on propofol which is running at 40 mcg/kg per minute. The patient has been adequately sedated at this point in time and the patient is full asynchronous with a mechanical ventilator. The patient remains on a mechanical ventilator and an assist-control mode at the rate of 18, tidal volume of 400, FiO2 of 50% with a PEEP of 5. Current oxygen saturations around 96%. The blood gases from today is showing a pH of 7.38 with a pCO2 of 55 and pO2 of 84. The patient underwent a bronchoscopy yesterday. The bronchioloalveolar lavage from the left lung was collected and the cultures are still pending for now. Meanwhile, the patient is covered with triple antibiotic coverage and he is on a combination of Zosyn, vancomycin and Levaquin. He is afebrile for now. He is having a low-grade fever however with a T-max of 99.6 overnight. He is on pressors and 0 was receiving pressors at low-dose levothyroid at 0.05 mcg/kg per minute and norepinephrine infusion was discontinued this morning. He remains in normal saline at the rate of 75 mL's an hour. He is on insulin drip at 6 units an hour for blood sugar control. IV heparin has been discontinued. The patient is currently on Lovenox at a dose of 120 mg every 12 hours. The current white cell count 11.6 with a hemoglobin of 11.1 and a platelet count of 123. BUN is at 20 with a creatinine of 1.0. Sodium is at 137 Naren glucose at 177, calcium is at 7.7 and a phosphorus is 2.1. Pro-calcitonin level is gradually improving. It was as high as 5.3 currently is down to 2.3. Meanwhile, the patient's chest x-ray from today is showing bilateral pulmonary infiltrates which is essentially unchanged compared to yesterday. All of the lites are in good location including the right IJ triple-lumen catheter and the orogastric and orotracheal tube. The patient is receiving enteral feeding with vital HF at the rate of 30 mL an hour which is currently at goal. 11/13/2021, patient is being seen for a follow-up. The patient remains intubated on a mechanical ventilator and the patient sedated with propofol. The propofol is running at 30 mcg/kg per minute. The patient is easily arousable while of the propofol. Noted the patient has chronic back pain and the patient may need some pain control once taken off the sedation. In any rate, the patient for the time being is still on the mechanical ventilator. He remains on assist control mode at the rate of 18, tidal volume of 400, FiO2 of 50% with a PEEP of 5. Chest x-ray still showing unchanged bilateral pulmonary infiltrates. Nevertheless, the bronchoscopy and the bronchioloalveolar lavage was done and the cultures are still negative and that showed only some yeast. No bacterial growth was noted and the patient is on the same antibiotic coverage. The blood gases showed a pH of 7.34 episodes of 56 and pO2 of 128. The peak and static pressures are nonelevated. The pro-calcitonin level A LEVEL IS IMPROVING AND STARTED ON A 2.3. THE WHITE CELL COUNT IS ALSO DOWN TO 5.3. HEMOGLOBIN 11.3. THE PATIENT IS OFF PRESSORS SINCE 4 AM THIS MORNING. IV FLUIDS IN THE FORM OF NORMAL SALINE AT THE RATE OF 75 ML AN HOUR. OVERALL FLUID BALANCE IS +2.8 L. THE PATIENT IS RECEIVING VITAl AF for enteral feeding and nutritional support. 11/14/2021, the patient is extubated the patient is currently on 2 L of oxygen b y nasal cannula. The patient is calm and comfortable. The patient denies having a specific complaints. He is covered on some thick yellowish sputum that needs to be further cultures again. Note that the patient had a bronchoscopy and the bronchioloalveolar lavage and the microbial cultures were positive for Sandra. Nevertheless, I clearly think that the patient does not have any underlying fungal infection and the patient a bacterial infection with septic shock and elevated pro-calcitonin level which subsequently dropped. The patient is currently afebrile. The patient is on a combination of Zosyn and Levaquin. The patient was taken off the vancomycin. Meanwhile, the patient's white cell count is dropped down to 4.7 with a hemoglobin of 10.5 and a platelet counts are stable at 111. The BUN is at 11 with a creatinine of 0.7 and the sodium level is at 13. The patient is currently on Lovenox 120 mg subcu every 12 hours regarding his previous history of hypercoagulable state. This will be transitioned gradually to warfarin. He is awake and alert. He is tolerating his diet. He needs to bring in his own AVAPS machine from home to utilize overnight. Objective - Vital Signs Vital signs: Vital Signs Temp 98.4 F 11/14/21 12:00 Pulse 91 11/14/21 13:00 Resp 14 11/14/21 13:00 BP 128/79 11/14/21 13:00 Pulse Ox 95 11/14/21 13:00 FiO2 50 11/13/21 16:00 Intake & Output 11/13/21 11/14/21 11/14/21 18:59 06:59 18:59 Intake Total 608.006 546.518 161 Output Total 690 1155 1370 Balance -81.994 -608.482 -1209 Weight 130.2 kg 132.1 kg Intake: IV 363 476 161 Arterial Line @ 3ml/hr 33 36 21 Levofloxacin 250Mg-D5w 100 Pmx 250 mg In Dextrose/ Water 1 50ml.bag @ 50 mls /hr IVPB HS ROBERTA Rx#: [id number] Piperacillin-Tazobactam 3 100 .375 gm In Sodium Chloride 0.9% 100 ml @ 25 mls/hr IVPB Q8HR ROBERTA Rx# :[id number] Sodium Chloride 0.9% 1, 330 240 140 000 ml @ 75 mls/hr IV . [id number] ROBERTA Rx#:[id number] Intake, IV Titration 179.006 30.518 Amount Insulin Regular 100 unit 26.681 30.518 In Sodium Chloride 0.9% 100 ml @ Per Protocol IV .Q0M ROBERTA Rx#:[id number] propofoL 1,000 mg In 152.325 Empty Bag 1 bag @ 20 MCG/ KG/MIN 15.785 mls/hr IV . [id number] ROBERTA Rx#:[id number] Tube Feeding 66 40 Output: Urine 690 1155 1370 Other: Voiding Method Indwelling Catheter Indwelling Catheter Indwelling Catheter ABP, PAP, CO, CI - Last Documented Arterial Blood Pressure 139/60 - Exam Patient is currently on 2 L of oxygen by nasal cannula, awake and alert Head exam was generally normal. There was no scleral icterus or corneal arcus. Mucous membranes were moist. Neck was supple and without jugular venous distension, thyromegaly, or carotid bruits. Carotids were easily palpable bilaterally. There was no adenopathy. The patient has orogastric and orotracheal tube in place Lungs sounds are diminished bilaterally and the patient has scattered rhonchi heard throughout the lung garcia and the patient scattered crackles and wheezes. Cardiac exam revealed the PMI to be normally situated and sized. The rhythm was regular and no extrasystoles were noted during several minutes of auscultation. The first and second heart sounds were normal and physiologic splitting of the second heart sound was noted. There were no murmurs, rubs, clicks, or gallops. Abdominal exam revealed normal bowel sounds. The abdomen was soft, non-tender, and without masses, organomegaly, or appreciable enlargement of the abdominal aorta. Examination of the extremities revealed easily palpable radial, femoral and pedal pulses. There was no cyanosis, clubbing or edema. Examination of the skin revealed no evidence of significant rashes, suspicious appearing nevi or other concerning lesions. NeurologicallyNeurologically, the patient is awake and alert and the patient does not have any focal neurological deficit. Cranial nerves are essentially intact. - Labs CBC & Chem 7: 11/14/21 05:50 11/14/21 05:50 Labs: Abnormal Lab Results - Last 24 Hours (Table) 11/13/21 11/13/21 11/13/21 Range/Units 15:11 16:07 18:03 RBC (4.30-5.90) m/uL Hgb (13.0-17.5) gm/dL Hct (39.0-53.0) % Plt Count (150-450) k/uL Glucose (74-99) mg/dL POC Glucose (mg/dL) 138 H 136 H 136 H (70-110) mg/dL Calcium (8.4-10.2) mg/dL Total Protein (6.3-8.2) g/dL Albumin (3.5-5.0) g/dL 11/13/21 11/13/21 11/13/21 Range/Units 19:08 20:02 21:21 RBC (4.30-5.90) m/uL Hgb (13.0-17.5) gm/dL Hct (39.0-53.0) % Plt Count (150-450) k/uL Glucose (74-99) mg/dL POC Glucose (mg/dL) 141 H 155 H 175 H (70-110) mg/dL Calcium (8.4-10.2) mg/dL Total Protein (6.3-8.2) g/dL Albumin (3.5-5.0) g/dL 11/13/21 11/13/21 11/14/21 Range/Units 22:11 23:18 00:09 RBC (4.30-5.90) m/uL Hgb (13.0-17.5) gm/dL Hct (39.0-53.0) % Plt Count (150-450) k/uL Glucose (74-99) mg/dL POC Glucose (mg/dL) 163 H 141 H 131 H (70-110) mg/dL Calcium (8.4-10.2) mg/dL Total Protein (6.3-8.2) g/dL Albumin (3.5-5.0) g/dL 11/14/21 11/14/21 11/14/21 Range/Units 01:09 01:50 02:45 RBC (4.30-5.90) m/uL Hgb (13.0-17.5) gm/dL Hct (39.0-53.0) % Plt Count (150-450) k/uL Glucose (74-99) mg/dL POC Glucose (mg/dL) 145 H 135 H 139 H (70-110) mg/dL Calcium (8.4-10.2) mg/dL Total Protein (6.3-8.2) g/dL Albumin (3.5-5.0) g/dL 11/14/21 11/14/21 11/14/21 Range/Units 03:52 05:01 05:50 RBC 3.65 L (4.30-5.90) m/uL Hgb 10.5 L (13.0-17.5) gm/dL Hct 32.6 L (39.0-53.0) % Plt Count 111 L (150-450) k/uL Glucose (74-99) mg/dL POC Glucose (mg/dL) 145 H 141 H (70-110) mg/dL Calcium (8.4-10.2) mg/dL Total Protein (6.3-8.2) g/dL Albumin (3.5-5.0) g/dL 11/14/21 11/14/21 11/14/21 Range/Units 05:50 05:50 07:00 RBC (4.30-5.90) m/uL Hgb (13.0-17.5) gm/dL Hct (39.0-53.0) % Plt Count (150-450) k/uL Glucose 136 H (74-99) mg/dL POC Glucose (mg/dL) 131 H 137 H (70-110) mg/dL Calcium 7.9 L (8.4-10.2) mg/dL Total Protein 4.9 L (6.3-8.2) g/dL Albumin 2.4 L (3.5-5.0) g/dL 11/14/21 11/14/21 Range/Units 08:03 11:55 RBC (4.30-5.90) m/uL Hgb (13.0-17.5) gm/dL Hct (39.0-53.0) % Plt Count (150-450) k/uL Glucose (74-99) mg/dL POC Glucose (mg/dL) 136 H 204 H (70-110) mg/dL Calcium (8.4-10.2) mg/dL Total Protein (6.3-8.2) g/dL Albumin (3.5-5.0) g/dL Microbiology - Last 24 Hours (Table) 11/10/21 06:45 Blood Culture - Preliminary Blood No Growth after 96 hours 11/10/21 06:45 Blood Culture - Preliminary Blood No Growth after 96 hours 11/11/21 11:00 Gram Stain - Final Bronchoalviolar Lavage - Left Bronchial Washings Culture - Final Sandra glabrata Sandra albicans Assessment and Plan Plan: Acute hypoxic/hypercapneic respiratory failure, the patient was extubated yesterday on 11/13/2021 and currently is on 2 L oxygen by nasal cannula. Follow-up chest x-ray shows improvement in aeration of the lungs. The patient had a bronchoscopy and the microbial cultures of been negative. Highly suspect bacterial infection/aspiration and the patient responded nicely to antibiotics including examination of Zosyn and Levaquin Septic shock, improving and the patient was taken off sedation today and he was able to follow commands appropriately. He was also taken off pressors. acute latic acidosis, improved and LA is down to 1.3 NARENDRA, recovered CAD and patient is post acute NSTMI in [facility], currently under investigation, tmax 99.6 Morbid obesity, BMI 46.8-Weight loss measures and follow with PCP Diabetes mellitus type 2, on Levemir insulin 50 units daily along with a sliding scale coverage GERD Diabetic peripheral neuropathy Hyperlipidemia Essential hypertension Chronic pain syndrome. 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 Hepatic steatosis, nonalcoholic fatty liver disease Herniated disc in the lumbar spine Partial blindness of left eye Diabetic gastroparesis Anxiety depression On Cymbalta Chronic pain the patient has a morphine pump Previous COVID , 2020 Plan Provide the patient incentive spirometer Continue Lovenox and restart the patient on Coumadin 10 mg will be given today and daily PT/INR monitoring Continue Zosyn and Levaquin Provide the patient incentive spirometer Increase his mobility Started patient on Lasix 40 mg by mouth daily Start the patient on Lipitor Started patient on his Xalatan eyedrops IV fluids to KVO Increase mobility and will continue to follow Patient has been switched to a long-acting insulin with Levemir and a sliding scale coverage Advance diet We'll continue to follow make further recommendations based on progress.
[2021-11-14] MEDS: SODIUM CHLORIDE 0.9% 500 ML 500 ML IV SCH (15:12)
--- NOTE | 2021-11-14 15:53 | P.PN ---
Subjective Progress Note Date: 11/13/21 Principal diagnosis: Left diabetic foot ulcer/pneumonia Patient is a 51 year old male with past medical history significant for left diabetic foot ulcer present at the hospital with acute respiratory failure requiring intubation concern for pneumonia status post bronchoscopy completed 11/11/2021. The patient was extubated 11/13/2021 On today's evaluation that is 11/13/2021, the patient remains to be afebrile, the patient is hemodynamically stable, patient breathing comfortably on nasal cannula oxygen denies any chest pain did have some congested cough no abdominal pain no diarrhea or pain to the left foot area Objective - Vital Signs Vital signs: Vital Signs Temp 97.8 F 11/13/21 04:00 Pulse 73 11/13/21 15:00 Resp 16 11/13/21 15:00 BP 124/55 11/13/21 09:00 Pulse Ox 97 11/13/21 15:00 FiO2 50 11/13/21 12:00 Intake & Output 11/12/21 11/13/21 11/13/21 18:59 06:59 18:59 Intake Total 2325.295 2514.354 539.006 Output Total 815 1170 505 Balance 3707.510 6201.354 34.006 Weight 130.2 kg 130.2 kg Intake: IV 1558 1164 294 Arterial Line @ 3ml/hr 33 39 24 Levofloxacin 250Mg-D5w 50 Pmx 250 mg In Dextrose/ Water 1 50ml.bag @ 50 mls /hr IVPB HS [facility]ERTA Rx#: [id number] Piperacillin-Tazobactam 3 200 100 .375 gm In Sodium Chloride 0.9% 100 ml @ 25 mls/hr IVPB Q8HR [facility] Rx# :[id number] Sodium Chloride 0.9% 1, 825 975 270 000 ml @ 75 mls/hr IV . [id number] [facility] Rx#:[id number] Vancomycin 500 Intake, IV Titration 404.295 831.354 179.006 Amount Insulin Regular 100 unit 7.171 129.768 26.681 In Sodium Chloride 0.9% 100 ml @ Per Protocol IV .Q0M [facility] Rx#:[id number] Norepinephrine 32 mg In 20.988 13.190 Sodium Chloride 0.9% 218 ml @ 0.05 MCG/KG/MIN 3.07 mls/hr IV .Q24H [facility] Rx#: [id number] Vancomycin 2,000 mg In 500 Sodium Chloride 0.9% 500 ml 500 ml @ 167 mls/hr IVPB Q12H [facility] Rx#: [id number] propofoL 1,000 mg In 376.136 188.396 152.325 Empty Bag 1 bag @ 20 MCG/ KG/MIN 15.785 mls/hr IV . Q6H21M [facility] Rx#:[id number] Tube Feeding 363 429 66 Other 90 Output: Urine 815 1170 505 Other: Voiding Method Indwelling Catheter Indwelling Catheter Indwelling Catheter ABP, PAP, CO, CI - Last Documented Arterial Blood Pressure 140/64 - Exam GENERAL DESCRIPTION: Middle-aged male up in the bed in no distress RESPIRATORY SYSTEM: Unlabored breathing , decreased breath sounds at bases HEART: S1 S2 regular rate and rhythm , ABDOMEN: Soft , no tenderness EXTREMITIES: Left foot wound is dressed no drainage on the dressing - Labs CBC & Chem 7: 11/14/21 05:50 11/14/21 05:50 Labs: Abnormal Lab Results - Last 24 Hours (Table) 11/12/21 11/12/21 11/12/21 Range/Units 17:31 18:56 19:57 RBC (4.30-5.90) m/uL Hgb (13.0-17.5) gm/dL Hct (39.0-53.0) % RDW (11.5-15.5) % Plt Count (150-450) k/uL ABG pH (7.35-7.45) ABG pCO2 (35-45) mmHg ABG pO2 (83-108) mmHg ABG HCO3 (21-25) mmol/L ABG Total CO2 (19-24) mmol/L ABG O2 Saturation (94-97) % Sodium (137-145) mmol/L Glucose (74-99) mg/dL POC Glucose (mg/dL) 162 H 161 H 158 H (70-110) mg/dL Calcium (8.4-10.2) mg/dL AST (17-59) U/L Total Protein (6.3-8.2) g/dL Albumin (3.5-5.0) g/dL 11/12/21 11/12/21 11/12/21 Range/Units 21:05 22:09 23:15 RBC (4.30-5.90) m/uL Hgb (13.0-17.5) gm/dL Hct (39.0-53.0) % RDW (11.5-15.5) % Plt Count (150-450) k/uL ABG pH (7.35-7.45) ABG pCO2 (35-45) mmHg ABG pO2 (83-108) mmHg ABG HCO3 (21-25) mmol/L ABG Total CO2 (19-24) mmol/L ABG O2 Saturation (94-97) % Sodium (137-145) mmol/L Glucose (74-99) mg/dL POC Glucose (mg/dL) 167 H 175 H 160 H (70-110) mg/dL Calcium (8.4-10.2) mg/dL AST (17-59) U/L Total Protein (6.3-8.2) g/dL Albumin (3.5-5.0) g/dL 11/13/21 11/13/21 11/13/21 Range/Units 00:04 01:07 02:03 RBC (4.30-5.90) m/uL Hgb (13.0-17.5) gm/dL Hct (39.0-53.0) % RDW (11.5-15.5) % Plt Count (150-450) k/uL ABG pH (7.35-7.45) ABG pCO2 (35-45) mmHg ABG pO2 (83-108) mmHg ABG HCO3 (21-25) mmol/L ABG Total CO2 (19-24) mmol/L ABG O2 Saturation (94-97) % Sodium (137-145) mmol/L Glucose (74-99) mg/dL POC Glucose (mg/dL) 157 H 156 H 179 H (70-110) mg/dL Calcium (8.4-10.2) mg/dL AST (17-59) U/L Total Protein (6.3-8.2) g/dL Albumin (3.5-5.0) g/dL 11/13/21 11/13/21 11/13/21 Range/Units 03:04 04:00 04:00 RBC 3.58 L (4.30-5.90) m/uL Hgb 11.3 L (13.0-17.5) gm/dL Hct 33.0 L (39.0-53.0) % RDW 16.3 H (11.5-15.5) % Plt Count 103 L (150-450) k/uL ABG pH (7.35-7.45) ABG pCO2 (35-45) mmHg ABG pO2 (83-108) mmHg ABG HCO3 (21-25) mmol/L ABG Total CO2 (19-24) mmol/L ABG O2 Saturation (94-97) % Sodium 136 L (137-145) mmol/L Glucose 156 H (74-99) mg/dL POC Glucose (mg/dL) 182 H (70-110) mg/dL Calcium 7.6 L (8.4-10.2) mg/dL AST 12 L (17-59) U/L Total Protein 4.6 L (6.3-8.2) g/dL Albumin 2.3 L (3.5-5.0) g/dL 11/13/21 11/13/21 11/13/21 Range/Units 04:28 05:07 06:04 RBC (4.30-5.90) m/uL Hgb (13.0-17.5) gm/dL Hct (39.0-53.0) % RDW (11.5-15.5) % Plt Count (150-450) k/uL ABG pH (7.35-7.45) ABG pCO2 (35-45) mmHg ABG pO2 (83-108) mmHg ABG HCO3 (21-25) mmol/L ABG Total CO2 (19-24) mmol/L ABG O2 Saturation (94-97) % Sodium (137-145) mmol/L Glucose (74-99) mg/dL POC Glucose (mg/dL) 155 H 148 H 163 H (70-110) mg/dL Calcium (8.4-10.2) mg/dL AST (17-59) U/L Total Protein (6.3-8.2) g/dL Albumin (3.5-5.0) g/dL 11/13/21 11/13/21 11/13/21 Range/Units 06:09 07:01 08:03 RBC (4.30-5.90) m/uL Hgb (13.0-17.5) gm/dL Hct (39.0-53.0) % RDW (11.5-15.5) % Plt Count (150-450) k/uL ABG pH 7.34 L (7.35-7.45) ABG pCO2 56 H (35-45) mmHg ABG pO2 128 H (83-108) mmHg ABG HCO3 30 H (21-25) mmol/L ABG Total CO2 32 H (19-24) mmol/L ABG O2 Saturation 98.9 H (94-97) % Sodium (137-145) mmol/L Glucose (74-99) mg/dL POC Glucose (mg/dL) 173 H 165 H (70-110) mg/dL Calcium (8.4-10.2) mg/dL AST (17-59) U/L Total Protein (6.3-8.2) g/dL Albumin (3.5-5.0) g/dL 11/13/21 11/13/21 11/13/21 Range/Units 08:57 10:18 11:25 RBC (4.30-5.90) m/uL Hgb (13.0-17.5) gm/dL Hct (39.0-53.0) % RDW (11.5-15.5) % Plt Count (150-450) k/uL ABG pH (7.35-7.45) ABG pCO2 (35-45) mmHg ABG pO2 (83-108) mmHg ABG HCO3 (21-25) mmol/L ABG Total CO2 (19-24) mmol/L ABG O2 Saturation (94-97) % Sodium (137-145) mmol/L Glucose (74-99) mg/dL POC Glucose (mg/dL) 150 H 127 H 138 H (70-110) mg/dL Calcium (8.4-10.2) mg/dL AST (17-59) U/L Total Protein (6.3-8.2) g/dL Albumin (3.5-5.0) g/dL 11/13/21 11/13/21 11/13/21 Range/Units 12:10 13:29 15:11 RBC (4.30-5.90) m/uL Hgb (13.0-17.5) gm/dL Hct (39.0-53.0) % RDW (11.5-15.5) % Plt Count (150-450) k/uL ABG pH (7.35-7.45) ABG pCO2 (35-45) mmHg ABG pO2 (83-108) mmHg ABG HCO3 (21-25) mmol/L ABG Total CO2 (19-24) mmol/L ABG O2 Saturation (94-97) % Sodium (137-145) mmol/L Glucose (74-99) mg/dL POC Glucose (mg/dL) 138 H 138 H 138 H (70-110) mg/dL Calcium (8.4-10.2) mg/dL AST (17-59) U/L Total Protein (6.3-8.2) g/dL Albumin (3.5-5.0) g/dL Microbiology - Last 24 Hours (Table) 11/11/21 11:00 Gram Stain - Final Bronchoalviolar Lavage - Left Bronchial Washings Culture - Final Sandra glabrata Sandra albicans 11/10/21 06:45 Blood Culture - Preliminary Blood No Growth after 72 hours 11/10/21 06:45 Blood Culture - Preliminary Blood No Growth after 72 hours 11/11/21 11:00 Acid Fast Bacilli Smear - Final Bronchoalviolar Lavage - Left Acid Fast Bacilli Culture - Preliminary Assessment and Plan (1) Community acquired pneumonia Current Visit: Yes Status: Acute Code(s): J18.9 - PNEUMONIA, UNSPECIFIED ORGANISM SNOMED Code(s): 045354563 (2) Diabetic foot ulcer Current Visit: No Status: Acute Code(s): E11.621 - TYPE 2 DIABETES MELLITUS WITH FOOT ULCER; L97.509 - NON-PRESSURE CHRONIC ULCER OTH PRT UNSP FOOT W UNSP SEVERITY SNOMED Code(s): 850159617 Plan: 1patient presented to hospital with sepsis and respiratory have fever elevated white count with predominant respiratory symptoms concerning for likely pneumonia in this patient who has been in of the hospital only to cover for resistant gram-positive as well as gram-negative and a question of aspiration etiology in this patient was status post bronchoscopy and lavage and cultures are currently pending. 2patient with left diabetic foot ulcer with evidence of any cellulitis recommend local wound care. 3patient to continue with the Zosyn however with a culture negative so far for MRSA we will discontinue vancomycin to decrease risk of nephrotoxicity. 4local wound care to the left foot plantar wound with Aquacel silver dressing change every 48 hour.
--- NOTE | 2021-11-14 15:54 | P.PN ---
Subjective Progress Note Date: 11/14/21 Principal diagnosis: Left diabetic foot ulcer/pneumonia Patient is a 51 year old male with past medical history significant for left diabetic foot ulcer present at the hospital with acute respiratory failure requiring intubation concern for pneumonia status post bronchoscopy completed 11/11/2021. The patient was extubated 11/13/2021 On today's evaluation that is 11/14/2021, the patient continues to be afebrile, the patient is breathing comfortably on nasal cannula oxygen, the patient denies denies any chest pain did have some congested cough no abdominal pain no diarrhea or pain to the left foot area Objective - Vital Signs Vital signs: Vital Signs Temp 98.4 F 11/14/21 12:00 Pulse 84 11/14/21 14:00 Resp 10 L 11/14/21 14:00 BP 133/76 11/14/21 14:00 Pulse Ox 98 11/14/21 14:00 FiO2 50 11/13/21 16:00 Intake & Output 11/13/21 11/14/21 11/14/21 18:59 06:59 18:59 Intake Total 608.006 546.518 164 Output Total 690 1155 1530 Balance -81.994 -608.482 -1366 Weight 130.2 kg 132.1 kg Intake: IV 363 476 164 Arterial Line @ 3ml/hr 33 36 24 Levofloxacin 250Mg-D5w 100 Pmx 250 mg In Dextrose/ Water 1 50ml.bag @ 50 mls /hr IVPB HS [facility] Rx#: [id number] Piperacillin-Tazobactam 3 100 .375 gm In Sodium Chloride 0.9% 100 ml @ 25 mls/hr IVPB Q8HR [facility] Rx# :[id number] Sodium Chloride 0.9% 1, 330 240 140 000 ml @ 75 mls/hr IV . [id number] [facility] Rx#:[id number] Intake, IV Titration 179.006 30.518 Amount Insulin Regular 100 unit 26.681 30.518 In Sodium Chloride 0.9% 100 ml @ Per Protocol IV .Q0M [facility] Rx#:[id number] propofoL 1,000 mg In 152.325 Empty Bag 1 bag @ 20 MCG/ KG/MIN 15.785 mls/hr IV . Q6H21M [facility] Rx#:[id number] Tube Feeding 66 40 Output: Urine 690 1155 1530 Other: Voiding Method Indwelling Catheter Indwelling Catheter Indwelling Catheter ABP, PAP, CO, CI - Last Documented Arterial Blood Pressure 139/60 - Exam GENERAL DESCRIPTION: Middle-aged male up in the bed in no distress RESPIRATORY SYSTEM: Unlabored breathing , decreased breath sounds at bases HEART: S1 S2 regular rate and rhythm , ABDOMEN: Soft , no tenderness EXTREMITIES: Left foot wound is dressed no drainage on the dressing - Labs CBC & Chem 7: 11/14/21 05:50 11/14/21 05:50 Labs: Abnormal Lab Results - Last 24 Hours (Table) 11/13/21 11/13/21 11/13/21 Range/Units 15:11 16:07 18:03 RBC (4.30-5.90) m/uL Hgb (13.0-17.5) gm/dL Hct (39.0-53.0) % Plt Count (150-450) k/uL Glucose (74-99) mg/dL POC Glucose (mg/dL) 138 H 136 H 136 H (70-110) mg/dL Calcium (8.4-10.2) mg/dL Total Protein (6.3-8.2) g/dL Albumin (3.5-5.0) g/dL 11/13/21 11/13/21 11/13/21 Range/Units 19:08 20:02 21:21 RBC (4.30-5.90) m/uL Hgb (13.0-17.5) gm/dL Hct (39.0-53.0) % Plt Count (150-450) k/uL Glucose (74-99) mg/dL POC Glucose (mg/dL) 141 H 155 H 175 H (70-110) mg/dL Calcium (8.4-10.2) mg/dL Total Protein (6.3-8.2) g/dL Albumin (3.5-5.0) g/dL 11/13/21 11/13/21 11/14/21 Range/Units 22:11 23:18 00:09 RBC (4.30-5.90) m/uL Hgb (13.0-17.5) gm/dL Hct (39.0-53.0) % Plt Count (150-450) k/uL Glucose (74-99) mg/dL POC Glucose (mg/dL) 163 H 141 H 131 H (70-110) mg/dL Calcium (8.4-10.2) mg/dL Total Protein (6.3-8.2) g/dL Albumin (3.5-5.0) g/dL 11/14/21 11/14/21 11/14/21 Range/Units 01:09 01:50 02:45 RBC (4.30-5.90) m/uL Hgb (13.0-17.5) gm/dL Hct (39.0-53.0) % Plt Count (150-450) k/uL Glucose (74-99) mg/dL POC Glucose (mg/dL) 145 H 135 H 139 H (70-110) mg/dL Calcium (8.4-10.2) mg/dL Total Protein (6.3-8.2) g/dL Albumin (3.5-5.0) g/dL 11/14/21 11/14/21 11/14/21 Range/Units 03:52 05:01 05:50 RBC 3.65 L (4.30-5.90) m/uL Hgb 10.5 L (13.0-17.5) gm/dL Hct 32.6 L (39.0-53.0) % Plt Count 111 L (150-450) k/uL Glucose (74-99) mg/dL POC Glucose (mg/dL) 145 H 141 H (70-110) mg/dL Calcium (8.4-10.2) mg/dL Total Protein (6.3-8.2) g/dL Albumin (3.5-5.0) g/dL 11/14/21 11/14/21 11/14/21 Range/Units 05:50 05:50 07:00 RBC (4.30-5.90) m/uL Hgb (13.0-17.5) gm/dL Hct (39.0-53.0) % Plt Count (150-450) k/uL Glucose 136 H (74-99) mg/dL POC Glucose (mg/dL) 131 H 137 H (70-110) mg/dL Calcium 7.9 L (8.4-10.2) mg/dL Total Protein 4.9 L (6.3-8.2) g/dL Albumin 2.4 L (3.5-5.0) g/dL 11/14/21 11/14/21 Range/Units 08:03 11:55 RBC (4.30-5.90) m/uL Hgb (13.0-17.5) gm/dL Hct (39.0-53.0) % Plt Count (150-450) k/uL Glucose (74-99) mg/dL POC Glucose (mg/dL) 136 H 204 H (70-110) mg/dL Calcium (8.4-10.2) mg/dL Total Protein (6.3-8.2) g/dL Albumin (3.5-5.0) g/dL Microbiology - Last 24 Hours (Table) 11/10/21 06:45 Blood Culture - Preliminary Blood No Growth after 96 hours 11/10/21 06:45 Blood Culture - Preliminary Blood No Growth after 96 hours 11/11/21 11:00 Gram Stain - Final Bronchoalviolar Lavage - Left Bronchial Washings Culture - Final Sandra glabrata Sandra albicans Assessment and Plan (1) Community acquired pneumonia Current Visit: Yes Status: Acute Code(s): J18.9 - PNEUMONIA, UNSPECIFIED ORGANISM SNOMED Code(s): 246702629 (2) Diabetic foot ulcer Current Visit: No Status: Acute Code(s): E11.621 - TYPE 2 DIABETES MELLITUS WITH FOOT ULCER; L97.509 - NON-PRESSURE CHRONIC ULCER OTH PRT UNSP FOOT W UNSP SEVERITY SNOMED Code(s): 358571967 Plan: 1patient presented to hospital with sepsis and respiratory have fever elevated white count with predominant respiratory symptoms concerning for likely pneumonia in this patient who has been in of the hospital only to cover for r esistant gram-positive as well as gram-negative and a question of aspiration etiology in this patient was status post bronchoscopy and lavage and cultures are growing Sandra which is more likely colonizer. 2patient with left diabetic foot ulcer with evidence of any cellulitis recommend local wound care. local wound care to the left foot plantar wound with Aquacel silver dressing change every 48 hour. 3patient to continue with Zosyn for underlying pneumonia and monitor clinical course closely Time with Patient: Less than 30
[2021-11-14 17:15] LABS: Glucose,Whole Blood 222 mg/dL (70-110)
[2021-11-14] MEDS: WARFARIN 10 MG TAB PO SCH (17:35)
[2021-11-14] MEDS: LEVOFLOXACIN 250MG-D5W PMX 250 MG in DEXTROSE/WATER 1 50ML.BAG IVPB SCH (20:56)
[2021-11-14] MEDS: ATORVASTATIN 10 MG TAB PO SCH (20:56)
[2021-11-14] MEDS: INSULIN DETEMIR (LEVEMIR) 100 UNIT/ML SYR SQ SCH (20:56)
[2021-11-14 20:57] LABS: Glucose,Whole Blood 239 mg/dL (70-110)
[2021-11-14] MEDS: LATANOPROST 0.005% OPHTH DROPS 2.5 ML BTL BOTH EYES SCH (20:57)
[2021-11-15] MEDS: PIPERACILLIN-TAZOBACTAM 3.375 GM in SODIUM CHLORIDE 0.9% 100 ML IVPB SCH ×2 (00:25→08:09)
[2021-11-15 03:11] LABS: Glucose,Whole Blood 194 mg/dL (70-110)
[2021-11-15] MEDS: NOREPINEPHRINE 32 MG in SODIUM CHLORIDE 0.9% 218 ML IV SCH (03:14)
[2021-11-15 05:54] LABS: HCT 36.4 % (39.0-53.0); HGB 11.7 gm/dL (13.0-17.5); MCH 29.2 pg (25.0-35.0); MCHC 32.2 g/dL (31.0-37.0); MCV 90.7 fL (80.0-100.0); Mean Platelet Volume 9.6; Platelet Count 134 k/uL (150-450); RBC 4.01 m/uL (4.30-5.90); RDW 15.1 % (11.5-15.5); WBC 6.8 k/uL (3.8-10.6)
[2021-11-15 06:06] LABS: Prothrombin Time 11.1 sec (9.0-12.0)
[2021-11-15 06:19] LABS: ALT 29 U/L (4-49); AST 37 U/L (17-59); African American GFR (CKD) >90 (>60 ml/min/1.73 sqM); Alkaline Phosphatase 149 U/L (38-126); Anion Gap 8 mmol/L; Blood Urea Nitrogen 13 mg/dL (9-20); Calcium 8.4 mg/dL (8.4-10.2); Carbon Dioxide 30 mmol/L (22-30); Chloride 101 mmol/L (98-107); Glucose 195 mg/dL (74-99); Non-African American GFR(CKD) >90 (>60 ml/min/1.73 sqM); Potassium 3.7 mmol/L (3.5-5.1); Sodium 139 mmol/L (137-145); Total Bilirubin 0.7 mg/dL (0.2-1.3); Total Protein 5.8 g/dL (6.3-8.2)
[2021-11-15] MEDS ORDERED: POTASSIUM CHLORIDE ER 20 MEQ TAB.ER PO SCH (07:00)
[2021-11-15 07:04] LABS: Glucose,Whole Blood 188 mg/dL (70-110)
[2021-11-15] MEDS: INSULIN ASPART (NovoLOG) 100 UNIT/ML VIAL SQ SCH ×4 (07:05→22:29)
[2021-11-15] MEDS: IPRATROPIUM-ALBUTEROL 3 ML NEB INHALATION SCH ×4 (08:03→20:23)
[2021-11-15] MEDS: PANTOPRAZOLE 40 MG/10 ML VIAL IV SCH (08:10)
[2021-11-15] MEDS: PREGABALIN 100 MG CAP PO SCH ×2 (08:10→22:30)
[2021-11-15] MEDS: FUROSEMIDE 40 MG TAB PO SCH (08:10)
[2021-11-15] MEDS: ENOXAPARIN 120 MG/0.8 ML SYRINGE SQ SCH ×2 (08:11→22:31)
[2021-11-15] MEDS ORDERED: LEVOFLOXACIN 500 MG TAB PO STA (08:51)
[2021-11-15] MEDS: AMOXIC-POT CLAV 875-125MG 1 EACH TAB PO SCH ×2 (10:24→22:31)
--- NOTE | 2021-11-15 11:16 | P.PN ---
Subjective Progress Note Date: 11/15/21 This is a 51-year-old male patient came into the emergency department because of chest pain. Note that the patient was in [facility] for chest pain approximately week ago and the patient was given a cardiac evaluation which included a cardiac stress and that came back abnormal and following that the patient was given a cardiac catheterization that showed nonocclusive disease and no intervention was done. Yesterday, the patient came in to the emergency department as the patient was complaining of increased shortness of breath and chest pain. His chest x-ray showed some cardiomegaly and increased bilateral interstitial pulmonary infiltrates which also raises the concern for an underlying pneumonia. While in the emergency, the patient started having episodes of fever and he became more obtunded and short of breath. At that point, the patient was started on BiPAP for respiratory support. The patient was started on a BiPAP at a pressure of 14/5 cm water and FiO2 of 40%. The pH was at 7.17 with a pCO2 of 64 and pO2 of 83 and this was not an FiO2 of 50%. At a time of my arrival, the patient's breathing was still labored and the patient was quite lethargic and obtunded. He was able to generate an adequate tidal volume of 400 mL. Nevertheless, the patient was still having shortness of breath and her breathing was labored with a high minute ventilation and a high respiratory rate. The patient was already given a total of 2 L of IV fluid and the patient was given a combination of Rocephin and Zithromax covering for a pneumonia. The workup that has been done showed a white cell count of 23 with a hemoglobin of 13.7 and a platelet count of 219. Normal coagulation profile. Lactic acid level was at 4.1. Blood sugars were elevated at around 370. UA showed +2 glucose, +1 protein and +9 white cells. The coagulation profile was within normal limits. COVID 19 by PCR came back also negative. After being transferred to the intensive care unit, the patient was monitored very closely and subsequently was decided to LAD and intubated the patient put him on a mechanical ventilator. Note that the patient had a triple lumen catheter established in the emergency department. The patient was also started on low- dose norepinephrine running at 0.05 mg/kg per minute. He was started on bicarb infusion. Noted the patient is a chronic CO2 retainer patient has a relatively elevated serum bicarbonate level at baseline. On today's evaluation of 11/11/2021, the patient is being seen for a follow-up. The patient remains intubated on mechanical ventilator. On today's evaluation, the patient remains on a propofol which is running at 50 mcg/kg per minute. The patient is on a mechanical ventilator on assist control mode at the rate of 18 without volume of 400 and FiO2 of 50% with a PEEP of 5. The blood gases showed a pH of 7.38 with a pCO2 of 53 and pO2 of 11. The peak airway pressure is 29. His pro-calcitonin level is at 5.3 supporting the possibility of underlying bacterial infection and same time the patient was having episodes of fever with a T-max of 101.4F. Note that the patient's overall acid base status is improved as the patient was also being given bicarb infusion rate of 100 mL an hour. The blood gases from today shows improvement with a pH of 7.38 And a serum bicarbonate is currently at 32 which is very close to the patient's baseline. The patient has been adequately resuscitated IV fluids. He remains on norepinephrine infusion running at 0.1 g respiratory per minute. Urine output is adequate. The patient had an echocardiogram that showed a preserved LV function with an ejection fraction of 65%. The patient remains on insulin d rip at 7.5 units an hour and the patient is also on IV heparin. On today's evaluation, the white cell count of 21 with a hemoglobin 15.7. Serum bicarb is at 32 with a sodium level of 139 and a BUN of 38 a CAT scan of 1.5. No other significant events overnight. Antibiotic coverage has been broadened to include a combination of Zosyn, Levaquin and vancomycin. Note that the patient's cultures are all negative thus far. Blood sugars under better control for now. 11/12/2021, the patient is being seen for a follow-up. The patient remains intubated on a mechanical ventilator for bilateral pneumonia and sepsis. This morning, the patient remains on propofol which is running at 40 mcg/kg per minute. The patient has been adequately sedated at this point in time and the patient is full asynchronous with a mechanical ventilator. The patient remains on a mechanical ventilator and an assist-control mode at the rate of 18, tidal volume of 400, FiO2 of 50% with a PEEP of 5. Current oxygen saturations around 96%. The blood gases from today is showing a pH of 7.38 with a pCO2 of 55 and pO2 of 84. The patient underwent a bronchoscopy yesterday. The bronchioloalveolar lavage from the left lung was collected and the cultures are still pending for now. Meanwhile, the patient is covered with triple antibiotic coverage and he is on a combination of Zosyn, vancomycin and Levaquin. He is afebrile for now. He is having a low-grade fever however with a T-max of 99.6 overnight. He is on pressors and 0 was receiving pressors at low-dose levothyroid at 0.05 mcg/kg per minute and norepinephrine infusion was discontinued this morning. He remains in normal saline at the rate of 75 mL's an hour. He is on insulin drip at 6 units an hour for blood sugar control. IV heparin has been discontinued. The patient is currently on Lovenox at a dose of 120 mg every 12 hours. The current white cell count 11.6 with a hemoglobin of 11.1 and a platelet count of 123. BUN is at 20 with a creatinine of 1.0. Sodium is at 137 Naren glucose at 177, calcium is at 7.7 and a phosphorus is 2.1. Pro-calcitonin level is gradually improving. It was as high as 5.3 currently is down to 2.3. Meanwhile, the patient's chest x-ray from today is showing bilateral pulmonary infiltrates which is essentially unchanged compared to yesterday. All of the lites are in good location including the right IJ triple-lumen catheter and the orogastric and orotracheal tube. The patient is receiving enteral feeding with vital HF at the rate of 30 mL an hour which is currently at goal. 11/13/2021, patient is being seen for a follow-up. The patient remains intubated on a mechanical ventilator and the patient sedated with propofol. The propofol is running at 30 mcg/kg per minute. The patient is easily arousable while of the propofol. Noted the patient has chronic back pain and the patient may need some pain control once taken off the sedation. In any rate, the patient for the time being is still on the mechanical ventilator. He remains on assist control mode at the rate of 18, tidal volume of 400, FiO2 of 50% with a PEEP of 5. Chest x-ray still showing unchanged bilateral pulmonary infiltrates. Nevertheless, the bronchoscopy and the bronchioloalveolar lavage was done and the cultures are still negative and that showed only some yeast. No bacterial growth was noted and the patient is on the same antibiotic coverage. The blood gases showed a pH of 7.34 episodes of 56 and pO2 of 128. The peak and static pressures are nonelevated. The pro-calcitonin level A LEVEL IS IMPROVING AND STARTED ON A 2.3. THE WHITE CELL COUNT IS ALSO DOWN TO 5.3. HEMOGLOBIN 11.3. THE PATIENT IS OFF PRESSORS SINCE 4 AM THIS MORNING. IV FLUIDS IN THE FORM OF NORMAL SALINE AT THE RATE OF 75 ML AN HOUR. OVERALL FLUID BALANCE IS +2.8 L. THE PATIENT IS RECEIVING VITAl AF for enteral feeding and nutritional support. 11/14/2021, the patient is extubated the patient is currently on 2 L of oxygen b y nasal cannula. The patient is calm and comfortable. The patient denies having a specific complaints. He is covered on some thick yellowish sputum that needs to be further cultures again. Note that the patient had a bronchoscopy and the bronchioloalveolar lavage and the microbial cultures were positive for Sandra. Nevertheless, I clearly think that the patient does not have any underlying fungal infection and the patient a bacterial infection with septic shock and elevated pro-calcitonin level which subsequently dropped. The patient is currently afebrile. The patient is on a combination of Zosyn and Levaquin. The patient was taken off the vancomycin. Meanwhile, the patient's white cell count is dropped down to 4.7 with a hemoglobin of 10.5 and a platelet counts are stable at 111. The BUN is at 11 with a creatinine of 0.7 and the sodium level is at 13. The patient is currently on Lovenox 120 mg subcu every 12 hours regarding his previous history of hypercoagulable state. This will be transitioned gradually to warfarin. He is awake and alert. He is tolerating his diet. He needs to bring in his own AVAPS machine from home to utilize overnight. 11/14/2021, the patient remains extubated. This morning, the patient's, comfortable on 2 L about 2 by nasal cannula. Doing well. No specific complaints. Using incentive spirometer. Remains on examination of Zosyn and Levaquin for now as broad-spectrum antibiotic regarding his underlying pneumonia which resulted respiratory failure. The patient is hemodynamically stable. He is communicating. No focal neurological deficit. He remains on Lovenox 120 mg subcu every 12 hours and the patient is also being adequately coagulated with warfarin. He was given a 10 mg dose of warfarin yesterday and the PT/INR remains subtherapeutic. He is on Levemir insulin 50 units along with a sliding scale coverage. No fever. No chills. No altered mentation. Blood work from today shows a white cell count of 6.8 with hemoglobin of 11.7 and a sodium level of 139 with a BUN of 13 and a creatinine of 0.8. The patient is using his BiPAP overnight and he is currently at the pressure of 10/5 cm of water and FiO2 of 30%. Objective - Vital Signs Vital signs: Vital Signs Temp 98.6 F 11/15/21 08:00 Pulse 76 11/15/21 11:05 Resp 33 H 11/15/21 10:00 BP 135/72 11/15/21 10:00 Pulse Ox 93 L 11/15/21 10:00 FiO2 30 11/15/21 04:05 Intake & Output 11/14/21 11/15/21 11/15/21 18:59 06:59 18:59 Intake Total 376 393 180 Output Total 2155 410 120 Balance -9 60 Intake: IV 276 373 180 Arterial Line @ 3ml/hr 36 3 Levofloxacin 250Mg-D5w 50 Pmx 250 mg In Dextrose/ Water 1 50ml.bag @ 50 mls /hr IVPB HS ROBERTA Rx#: [id number] Piperacillin-Tazobactam 3 100 100 100 .375 gm In Sodium Chloride 0.9% 100 ml @ 25 mls/hr IVPB Q8HR ROBERTA Rx# :[id number] Sodium Chloride 0.9% 1, 140 000 ml @ 75 mls/hr IV . [id number] ROBERTA Rx#:[id number] Sodium Chloride 0.9% 500 220 80 ml 500 ml @ 20 mls/hr IV .Q24H ROBERTA Rx#:[id number] Intake, IV Titration 100 20 Amount Sodium Chloride 0.9% 500 100 20 ml 500 ml @ 20 mls/hr IV .Q24H ROBERTA Rx#:[id number] Output: Urine 2155 410 120 Other: Voiding Method Indwelling Catheter Indwelling Catheter Indwelling Catheter ABP, PAP, CO, CI - Last Documented Arterial Blood Pressure 139/60 - Exam Patient is currently on 2 L of oxygen by nasal cannula, awake and alert Head exam was generally normal. There was no scleral icterus or corneal arcus. Mucous membranes were moist. Neck was supple and without jugular venous distension, thyromegaly, or carotid bruits. Carotids were easily palpable bilaterally. There was no adenopathy. The patient has orogastric and orotracheal tube in place Lungs sounds are diminished bilaterally and the patient has scattered rhonchi heard throughout the lung garcia and the patient scattered crackles and wheezes. Cardiac exam revealed the PMI to be normally situated and sized. The rhythm was regular and no extrasystoles were noted during several minutes of auscultation. The first and second heart sounds were normal and physiologic splitting of the second heart sound was noted. There were no murmurs, rubs, clicks, or gallops. Abdominal exam revealed normal bowel sounds. The abdomen was soft, non-tender, and without masses, organomegaly, or appreciable enlargement of the abdominal aorta. Examination of the extremities revealed easily palpable radial, femoral and ped al pulses. There was no cyanosis, clubbing or edema. Examination of the skin revealed no evidence of significant rashes, suspicious appearing nevi or other concerning lesions. NeurologicallyNeurologically, the patient is awake and alert and the patient does not have any focal neurological deficit. Cranial nerves are essentially intact. - Labs CBC & Chem 7: 11/15/21 05:45 11/15/21 05:45 Labs: Abnormal Lab Results - Last 24 Hours (Table) 11/14/21 11/14/21 11/14/21 Range/Units 05:50 11:55 17:14 RBC (4.30-5.90) m/uL Hgb (13.0-17.5) gm/dL Hct (39.0-53.0) % Plt Count (150-450) k/uL Glucose (74-99) mg/dL POC Glucose (mg/dL) 204 H 222 H (70-110) mg/dL Alkaline Phosphatase (38-126) U/L Total Protein (6.3-8.2) g/dL Albumin (3.5-5.0) g/dL Procalcitonin 0.89 H (0.02-0.09) ng/mL 11/14/21 11/15/21 11/15/21 Range/Units 20:54 03:10 05:45 RBC 4.01 L (4.30-5.90) m/uL Hgb 11.7 L (13.0-17.5) gm/dL Hct 36.4 L (39.0-53.0) % Plt Count 134 L (150-450) k/uL Glucose (74-99) mg/dL POC Glucose (mg/dL) 239 H 194 H (70-110) mg/dL Alkaline Phosphatase (38-126) U/L Total Protein (6.3-8.2) g/dL Albumin (3.5-5.0) g/dL Procalcitonin (0.02-0.09) ng/mL 11/15/21 11/15/21 Range/Units 05:45 07:01 RBC (4.30-5.90) m/uL Hgb (13.0-17.5) gm/dL Hct (39.0-53.0) % Plt Count (150-450) k/uL Glucose 195 H (74-99) mg/dL POC Glucose (mg/dL) 188 H (70-110) mg/dL Alkaline Phosphatase 149 H (38-126) U/L Total Protein 5.8 L (6.3-8.2) g/dL Albumin 3.0 L (3.5-5.0) g/dL Procalcitonin (0.02-0.09) ng/mL Microbiology - Last 24 Hours (Table) 11/11/21 11:00 Fungal Culture - Preliminary Bronchoalviolar Lavage - Left Sandra glabrata 11/10/21 06:45 Blood Culture - Preliminary Blood No Growth after 120 hours 11/10/21 06:45 Blood Culture - Preliminary Blood No Growth after 120 hours 11/11/21 11:00 Legionella Culture - Preliminary Bronchial Washings - Left Assessment and Plan Plan: Acute hypoxic/hypercapneic respiratory failure, the patient was extubated yesterday on 11/13/2021 and currently is on 2 L oxygen by nasal cannula. Follow-up chest x-ray shows improvement in aeration of the lungs. The patient had a bronchoscopy and the microbial cultures of been negative. Highly suspect bacterial infection/aspiration and the patient responded nicely to antibiotics including examination of Zosyn and Levaquin, the patient has recovered and the patient remains on 2 L of O2 nasal cannula. No chest x-ray from today. Septic shock, improving and the patient was taken off sedation today and he was able to follow commands appropriately. He was also taken off pressors. Septic shock has recovered acute latic acidosis, improved and LA is down to 1.3 NARENDRA, recovered, kidney function is normalized CAD and patient is post acute NSTMI in [facility], currently under investigation, tmax 99.6 Morbid obesity, BMI 46.8-Weight loss measures and follow with PCP Diabetes mellitus type 2, on Levemir insulin 50 units daily along with a sliding scale coverage GERD Diabetic peripheral neuropathy Hyperlipidemia Essential hypertension Chronic pain syndrome. 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 Hepatic steatosis, nonalcoholic fatty liver disease Herniated disc in the lumbar spine Partial blindness of left eye Diabetic gastroparesis Anxiety depression On Cymbalta Chronic pain the patient has a morphine pump Previous COVNY , 2020 Plan Provide the patient incentive spirometer Continue Lovenox and restart the patient on Coumadin 10 mg will be given today and daily PT/INR monitoring, PT/INR is subtherapeutic and the patient is going to receive another dose of 10 mg of Coumadin today Zosyn will be discontinued and the patient will be placed on oral Augmentin and Levaquin Provide the patient incentive spirometer Increase his mobility Continue Lasix 40 mg by mouth daily Start the patient on Lipitor Started patient on his Xalatan eyedrops IV fluids to KVO Increase mobility and will continue to follow Patient has been switched to a long-acting insulin with Levemir and a sliding scale coverage transfer this patient out of the intensive care unit for now.
[2021-11-15 12:07] LABS: Glucose,Whole Blood 305 mg/dL (70-110)
--- NOTE | 2021-11-15 12:14 | P.PN ---
Subjective Progress Note Date: 11/14/21 51-year-old male , follows with Dr. Waggoner. patient has a right Charcot foot and also found to have osteomyelitis in October 2020. 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 Patient presented to ER with chest pain and shortness of breath. About a week ago patient was admitted [facility] hospital. Her chest pain. Had a cardiac stress test that was abnormal and a cardiac cath that showed nonocclusive disease and no intervention was done. Since presentation to the ER patient became progressively more short of breath. Becoming less responsive. Was put on a BiPAP. Patient being becoming labored. Patient was seen by Dr. Veras from critical care. He is coming back to intubate the patient. Patient rather lethargic not really able to give on the much of a history. Received antibiotics. In the ICU. Getting bicarbonate. Admitted with bilateral pneumonia, acute hypoxic respiratory failure, delirium. Intubated November 11: ICU. Intubated./Ventilator. FiO2 60 PEEP of 5. Telemetry shows sinus rhythm. Drips include insulin, norepinephrine, IV heparin, propofol. This morning underwent bronchoscopy by Dr. Veras. Significant infectioned secretion obtained from the left bronchus. Discussed with the at the bedside. Has remained febrile. Will change IV heparin to subcu Lovenox. November 12: ICU: On the ventilator intubated with FiO2 59 PEEP of 5. Drips include insulin, norepinephrine, propofol, telemetry shows sinus rhythm. 2 feeding at 36 mL an hour. Jose Roberto colored tracheal secretions. Trial of DC propofol earlier today. Patient got agitated. Objective - Vital Signs Vital signs: Vital Signs Temp 98.3 F 11/14/21 08:00 Pulse 83 11/14/21 11:00 Resp 13 11/14/21 11:00 BP 124/55 11/14/21 11:00 Pulse Ox 95 11/14/21 11:00 FiO2 50 11/13/21 16:00 Intake & Output 11/13/21 11/14/21 11/14/21 18:59 06:59 18:59 Intake Total 608.006 546.518 92 Output Total 690 1155 675 Balance -81.994 -608.482 -583 Weight 130.2 kg 132.1 kg Intake: IV 363 476 92 Arterial Line @ 3ml/hr 33 36 12 Levofloxacin 250Mg-D5w 100 Pmx 250 mg In Dextrose/ Water 1 50ml.bag @ 50 mls /hr IVPB HS ROBERTA Rx#: [id number] Piperacillin-Tazobactam 3 100 .375 gm In Sodium Chloride 0.9% 100 ml @ 25 mls/hr IVPB Q8HR [facility] Rx# :[id number] Sodium Chloride 0.9% 1, 330 240 80 000 ml @ 75 mls/hr IV . [id number] ROBERTA Rx#:[id number] Intake, IV Titration 179.006 30.518 Amount Insulin Regular 100 unit 26.681 30.518 In Sodium Chloride 0.9% 100 ml @ Per Protocol IV .Q0M ROBERTA Rx#:[id number] propofoL 1,000 mg In 152.325 Empty Bag 1 bag @ 20 MCG/ KG/MIN 15.785 mls/hr IV . Q6H21M ROBERTA Rx#:[id number] Tube Feeding 66 40 Output: Urine 690 1155 675 Other: Voiding Method Indwelling Catheter Indwelling Catheter Indwelling Catheter ABP, PAP, CO, CI - Last Documented Arterial Blood Pressure 139/60 - Exam GENERAL: The patient is alert and oriented x3, not in any acute distress. Well developed, well nourished. HEENT: Pupils are round and equally reacting to light. EOMI. No scleral icterus. No conjunctival pallor. Normocephalic, atraumatic. No pharyngeal erythema. No thyromegaly. CARDIOVASCULAR: S1 and S2 present. No murmurs, rubs, or gallops. PULMONARY: Chest is clear to auscultation, no wheezing or crackles. Lungs are diminished. ABDOMEN: Soft, nontender, nondistended, normoactive bowel sounds. No palpable o rganomegaly. MUSCULOSKELETAL: No joint swelling or deformity. EXTREMITIES: No cyanosis, clubbing, or pedal edema. Charcot foot. NEUROLOGICAL: Gross neurological examination did not reveal any focal deficits. SKIN: No rashes. Chronic wound bottom of left foot. - Labs CBC & Chem 7: 11/15/21 05:45 11/15/21 05:45 Labs: Abnormal Lab Results - Last 24 Hours (Table) 11/13/21 11/13/21 11/13/21 Range/Units 11:25 12:10 13:29 RBC (4.30-5.90) m/uL Hgb (13.0-17.5) gm/dL Hct (39.0-53.0) % Plt Count (150-450) k/uL Glucose (74-99) mg/dL POC Glucose (mg/dL) 138 H 138 H 138 H (70-110) mg/dL Calcium (8.4-10.2) mg/dL Total Protein (6.3-8.2) g/dL Albumin (3.5-5.0) g/dL 11/13/21 11/13/21 11/13/21 Range/Units 15:11 16:07 18:03 RBC (4.30-5.90) m/uL Hgb (13.0-17.5) gm/dL Hct (39.0-53.0) % Plt Count (150-450) k/uL Glucose (74-99) mg/dL POC Glucose (mg/dL) 138 H 136 H 136 H (70-110) mg/dL Calcium (8.4-10.2) mg/dL Total Protein (6.3-8.2) g/dL Albumin (3.5-5.0) g/dL 11/13/21 11/13/21 11/13/21 Range/Units 19:08 20:02 21:21 RBC (4.30-5.90) m/uL Hgb (13.0-17.5) gm/dL Hct (39.0-53.0) % Plt Count (150-450) k/uL Glucose (74-99) mg/dL POC Glucose (mg/dL) 141 H 155 H 175 H (70-110) mg/dL Calcium (8.4-10.2) mg/dL Total Protein (6.3-8.2) g/dL Albumin (3.5-5.0) g/dL 11/13/21 11/13/21 11/14/21 Range/Units 22:11 23:18 00:09 RBC (4.30-5.90) m/uL Hgb (13.0-17.5) gm/dL Hct (39.0-53.0) % Plt Count (150-450) k/uL Glucose (74-99) mg/dL POC Glucose (mg/dL) 163 H 141 H 131 H (70-110) mg/dL Calcium (8.4-10.2) mg/dL Total Protein (6.3-8.2) g/dL Albumin (3.5-5.0) g/dL 11/14/21 11/14/21 11/14/21 Range/Units 01:09 01:50 02:45 RBC (4.30-5.90) m/uL Hgb (13.0-17.5) gm/dL Hct (39.0-53.0) % Plt Count (150-450) k/uL Glucose (74-99) mg/dL POC Glucose (mg/dL) 145 H 135 H 139 H (70-110) mg/dL Calcium (8.4-10.2) mg/dL Total Protein (6.3-8.2) g/dL Albumin (3.5-5.0) g/dL 11/14/21 11/14/21 11/14/21 Range/Units 03:52 05:01 05:50 RBC 3.65 L (4.30-5.90) m/uL Hgb 10.5 L (13.0-17.5) gm/dL Hct 32.6 L (39.0-53.0) % Plt Count 111 L (150-450) k/uL Glucose (74-99) mg/dL POC Glucose (mg/dL) 145 H 141 H (70-110) mg/dL Calcium (8.4-10.2) mg/dL Total Protein (6.3-8.2) g/dL Albumin (3.5-5.0) g/dL 11/14/21 11/14/21 11/14/21 Range/Units 05:50 05:50 07:00 RBC (4.30-5.90) m/uL Hgb (13.0-17.5) gm/dL Hct (39.0-53.0) % Plt Count (150-450) k/uL Glucose 136 H (74-99) mg/dL POC Glucose (mg/dL) 131 H 137 H (70-110) mg/dL Calcium 7.9 L (8.4-10.2) mg/dL Total Protein 4.9 L (6.3-8.2) g/dL Albumin 2.4 L (3.5-5.0) g/dL 11/14/21 Range/Units 08:03 RBC (4.30-5.90) m/uL Hgb (13.0-17.5) gm/dL Hct (39.0-53.0) % Plt Count (150-450) k/uL Glucose (74-99) mg/dL POC Glucose (mg/dL) 136 H (70-110) mg/dL Calcium (8.4-10.2) mg/dL Total Protein (6.3-8.2) g/dL Albumin (3.5-5.0) g/dL Microbiology - Last 24 Hours (Table) 11/10/21 06:45 Blood Culture - Preliminary Blood No Growth after 96 hours 11/10/21 06:45 Blood Culture - Preliminary Blood No Growth after 96 hours 11/11/21 11:00 Gram Stain - Final Bronchoalviolar Lavage - Left Bronchial Washings Culture - Final Sandra glabrata Sandra albicans Assessment and Plan Assessment: 1. Bilateral pneumonia, possible aspiration causing hypoxia: Patient has been extubated. IV Zosyn, IV levofloxacin. Bronchoscopy with lavage on November [address] Veras. Cultures showing sandra. 2. Acute hypoxic respiratory failure secondary to pneumonia, : Extubated now on 3L nasal cannula Intubated November 10, extubated November 13 3. Chronic left plantar diabetic wound Wound care per ID: Aquacel silver dressing change every 48 hours -Bilateral foot Charcot foot from diabetes 4. Diabetes mellitus type 2, chronically on insulin uncontrolled with hyperglycemia/ Diabetic peripheral neuropathy: Blood sugar now in the 150's Insulin drip with plan to transition once patient is tolerating oral diet -- On Lyrica 5. Hyperlipidemia Lipitor 6. Hypotensive and septic shock: Slow to respond Patient has been weaned of norepinephrine, blood pressure now in the 150s systolic. 7. Chronic pain syndrome/ Primary osteoarthritis. Morphine pain pump, patient can resume home pain medication 8. Obstructive sleep apnea Uses CPAP 9. Factor V Leyden mutation On Coumadin. Currently on subcu Lovenox Patient does have decreased platelet count today under investigation with hematology consultation 10. 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
[2021-11-15 16:34] LABS: Glucose,Whole Blood 274 mg/dL (70-110)
--- NOTE | 2021-11-15 18:00 | P.PN ---
Subjective Progress Note Date: 11/15/21 Principal diagnosis: Left diabetic foot ulcer/pneumonia Patient is a 51 year old male with past medical history significant for left diabetic foot ulcer present at the hospital with acute respiratory failure requiring intubation concern for pneumonia status post bronchoscopy completed 11/11/2021. The patient was extubated 11/13/2021, patient has been moved out of the ICU 11/15/2021 On today's evaluation that is 11/15/2021, the patient remains to be afebrile, the patient is breathing comfortably on nasal cannula oxygen, the patient denies denies any chest pain , the patient did have occasional congested cough, the patient denies abdominal pain no diarrhea or pain to the left foot area Objective - Vital Signs Vital signs: Vital Signs Temp 99.1 F 11/15/21 14:00 Pulse 80 11/15/21 16:05 Resp 20 11/15/21 12:00 BP 105/71 11/15/21 14:00 Pulse Ox 97 11/15/21 14:00 FiO2 30 11/15/21 04:05 Intake & Output 11/14/21 11/15/21 11/15/21 18:59 06:59 18:59 Intake Total 376 393 200 Output Total 2155 410 550 Balance -1779 -17 -350 Intake: IV 276 373 200 Arterial Line @ 3ml/hr 36 3 Levofloxacin 250Mg-D5w 50 Pmx 250 mg In Dextrose/ Water 1 50ml.bag @ 50 mls /hr IVPB HS ROBERTA Rx#: [id number] Piperacillin-Tazobactam 3 100 100 100 .375 gm In Sodium Chloride 0.9% 100 ml @ 25 mls/hr IVPB Q8HR [facility] Rx# :[id number] Sodium Chloride 0.9% 1, 140 000 ml @ 75 mls/hr IV . [id number] [facility] Rx#:[id number] Sodium Chloride 0.9% 500 220 100 ml 500 ml @ 20 mls/hr IV .Q24H [facility] Rx#:[id number] Intake, IV Titration 100 20 Amount Sodium Chloride 0.9% 500 100 20 ml 500 ml @ 20 mls/hr IV .Q24H [facility]ERTA Rx#:[id number] Output: Urine 2155 410 550 Other: Voiding Method Indwelling Catheter Indwelling Catheter Indwelling Catheter ABP, PAP, CO, CI - Last Documented Arterial Blood Pressure 139/60 - Exam GENERAL DESCRIPTION: Middle-aged male up in the bed in no distress RESPIRATORY SYSTEM: Unlabored breathing , decreased breath sounds at bases HEART: S1 S2 regular rate and rhythm , ABDOMEN: Soft , no tenderness EXTREMITIES: Left foot wound is dressed no drainage on the dressing - Labs CBC & Chem 7: 11/15/21 05:45 11/15/21 05:45 Labs: Abnormal Lab Results - Last 24 Hours (Table) 11/14/21 11/15/21 11/15/21 Range/Units 20:54 03:10 05:45 RBC 4.01 L (4.30-5.90) m/uL Hgb 11.7 L (13.0-17.5) gm/dL Hct 36.4 L (39.0-53.0) % Plt Count 134 L (150-450) k/uL Glucose (74-99) mg/dL POC Glucose (mg/dL) 239 H 194 H (70-110) mg/dL Alkaline Phosphatase (38-126) U/L Total Protein (6.3-8.2) g/dL Albumin (3.5-5.0) g/dL 11/15/21 11/15/21 11/15/21 Range/Units 05:45 07:01 12:06 RBC (4.30-5.90) m/uL Hgb (13.0-17.5) gm/dL Hct (39.0-53.0) % Plt Count (150-450) k/uL Glucose 195 H (74-99) mg/dL POC Glucose (mg/dL) 188 H 305 H (70-110) mg/dL Alkaline Phosphatase 149 H (38-126) U/L Total Protein 5.8 L (6.3-8.2) g/dL Albumin 3.0 L (3.5-5.0) g/dL 11/15/21 Range/Units 16:33 RBC (4.30-5.90) m/uL Hgb (13.0-17.5) gm/dL Hct (39.0-53.0) % Plt Count (150-450) k/uL Glucose (74-99) mg/dL POC Glucose (mg/dL) 274 H (70-110) mg/dL Alkaline Phosphatase (38-126) U/L Total Protein (6.3-8.2) g/dL Albumin (3.5-5.0) g/dL Microbiology - Last 24 Hours (Table) 11/11/21 11:00 Fungal Culture - Preliminary Bronchoalviolar Lavage - Left Sandra glabrata 11/10/21 06:45 Blood Culture - Preliminary Blood No Growth after 120 hours 11/10/21 06:45 Blood Culture - Preliminary Blood No Growth after 120 hours 11/11/21 11:00 Legionella Culture - Preliminary Bronchial Washings - Left Assessment and Plan (1) Community acquired pneumonia Current Visit: Yes Status: Acute Code(s): J18.9 - PNEUMONIA, UNSPECIFIED ORGANISM SNOMED Code(s): 872101147 (2) Diabetic foot ulcer Current Visit: No Status: Acute Code(s): E11.621 - TYPE 2 DIABETES MELLITUS WITH FOOT ULCER; L97.509 - NON-PRESSURE CHRONIC ULCER OTH PRT UNSP FOOT W UNSP SEVERITY SNOMED Code(s): 843835586 Plan: 1patient presented to hospital with sepsis and respiratory have fever elevated white count with predominant respiratory symptoms concerning for likely pneumonia in this patient who has been in of the hospital only to cover for resistant gram-positive as well as gram-negative and a question of aspiration etiology in this patient was status post bronchoscopy and lavage and cultures are growing Sandra which is more likely colonizer. 2patient with left diabetic foot ulcer with evidence of any cellulitis recommend local wound care. local wound care to the left foot plantar wound with Aquacel silver dressing change every 48 hour. 3patient antibiotic has been switched over to oral Augmentin to continue and to monitor clinical course closely Time with Patient: Less than 30
[2021-11-15] MEDS: WARFARIN 10 MG TAB PO SCH (18:11)
[2021-11-15 21:39] LABS: Glucose,Whole Blood 320 mg/dL (70-110)
[2021-11-15] MEDS: ATORVASTATIN 10 MG TAB PO SCH (22:30)
[2021-11-15] MEDS: INSULIN DETEMIR (LEVEMIR) 100 UNIT/ML SYR SQ SCH (22:30)
[2021-11-15] MEDS: LATANOPROST 0.005% OPHTH DROPS 2.5 ML BTL BOTH EYES SCH (22:31)
[2021-11-16 03:38] LABS: Glucose,Whole Blood 314 mg/dL (70-110)
[2021-11-16 06:54] LABS: Glucose,Whole Blood 306 mg/dL (70-110)
[2021-11-16] MEDS: IPRATROPIUM-ALBUTEROL 3 ML NEB INHALATION SCH ×4 (07:18→19:49)
[2021-11-16 07:23] LABS: INR 1.1 (<1.2); Prothrombin Time 12.2 sec (9.0-12.0)
[2021-11-16] MEDS ORDERED: SODIUM CHLORIDE 0.65% NASAL SPRAY 44 ML BTL NASAL PRN (08:22)
[2021-11-16] MEDS: FUROSEMIDE 40 MG TAB PO SCH (09:21)
[2021-11-16] MEDS: AMOXIC-POT CLAV 875-125MG 1 EACH TAB PO SCH ×2 (09:21→20:01)
[2021-11-16] MEDS: ENOXAPARIN 120 MG/0.8 ML SYRINGE SQ SCH (09:21)
[2021-11-16] MEDS: PREGABALIN 100 MG CAP PO SCH ×2 (09:21→20:01)
[2021-11-16] MEDS: INSULIN ASPART (NovoLOG) 100 UNIT/ML VIAL SQ SCH ×4 (09:22→20:00)
[2021-11-16] MEDS: PANTOPRAZOLE 40 MG/10 ML VIAL IV SCH (10:45)
[2021-11-16 11:34] LABS: Glucose,Whole Blood 446 mg/dL (70-110)
--- NOTE | 2021-11-16 12:15 | P.PN ---
Subjective Progress Note Date: 11/16/21 This is a 51-year-old male patient came into the emergency department because of chest pain. Note that the patient was in [facility] for chest pain approximately week ago and the patient was given a cardiac evaluation which included a cardiac stress and that came back abnormal and following that the patient was given a cardiac catheterization that showed nonocclusive disease and no intervention was done. Yesterday, the patient came in to the emergency department as the patient was complaining of increased shortness of breath and chest pain. His chest x-ray showed some cardiomegaly and increased bilateral interstitial pulmonary infiltrates which also raises the concern for an underlying pneumonia. While in the emergency, the patient started having episodes of fever and he became more obtunded and short of breath. At that point, the patient was started on BiPAP for respiratory support. The patient was started on a BiPAP at a pressure of 14/5 cm water and FiO2 of 40%. The pH was at 7.17 with a pCO2 of 64 and pO2 of 83 and this was not an FiO2 of 50%. At a time of my arrival, the patient's breathing was still labored and the patient was quite lethargic and obtunded. He was able to generate an adequate tidal volume of 400 mL. Nevertheless, the patient was still having shortness of breath and her breathing was labored with a high minute ventilation and a high respiratory rate. The patient was already given a total of 2 L of IV fluid and the patient was given a combination of Rocephin and Zithromax covering for a pneumonia. The workup that has been done showed a white cell count of 23 with a hemoglobin of 13.7 and a platelet count of 219. Normal coagulation profile. Lactic acid level was at 4.1. Blood sugars were elevated at around 370. UA showed +2 glucose, +1 protein and +9 white cells. The coagulation profile was within normal limits. COVID 19 by PCR came back also negative. After being transferred to the intensive care unit, the patient was monitored very closely and subsequently was decided to LAD and intubated the patient put him on a mechanical ventilator. Note that the patient had a triple lumen catheter established in the emergency department. The patient was also started on low- dose norepinephrine running at 0.05 mg/kg per minute. He was started on bicarb infusion. Noted the patient is a chronic CO2 retainer patient has a relatively elevated serum bicarbonate level at baseline. On today's evaluation of 11/11/2021, the patient is being seen for a follow-up. The patient remains intubated on mechanical ventilator. On today's evaluation, the patient remains on a propofol which is running at 50 mcg/kg per minute. The patient is on a mechanical ventilator on assist control mode at the rate of 18 without volume of 400 and FiO2 of 50% with a PEEP of 5. The blood gases showed a pH of 7.38 with a pCO2 of 53 and pO2 of 11. The peak airway pressure is 29. His pro-calcitonin level is at 5.3 supporting the possibility of underlying bacterial infection and same time the patient was having episodes of fever with a T-max of 101.4F. Note that the patient's overall acid base status is improved as the patient was also being given bicarb infusion rate of 100 mL an hour. The blood gases from today shows improvement with a pH of 7.38 And a serum bicarbonate is currently at 32 which is very close to the patient's baseline. The patient has been adequately resuscitated IV fluids. He remains on norepinephrine infusion running at 0.1 g respiratory per minute. Urine output is adequate. The patient had an echocardiogram that showed a preserved LV function with an ejection fraction of 65%. The patient remains on insulin d rip at 7.5 units an hour and the patient is also on IV heparin. On today's evaluation, the white cell count of 21 with a hemoglobin 15.7. Serum bicarb is at 32 with a sodium level of 139 and a BUN of 38 a CAT scan of 1.5. No other significant events overnight. Antibiotic coverage has been broadened to include a combination of Zosyn, Levaquin and vancomycin. Note that the patient's cultures are all negative thus far. Blood sugars under better control for now. 11/12/2021, the patient is being seen for a follow-up. The patient remains intubated on a mechanical ventilator for bilateral pneumonia and sepsis. This morning, the patient remains on propofol which is running at 40 mcg/kg per minute. The patient has been adequately sedated at this point in time and the patient is full asynchronous with a mechanical ventilator. The patient remains on a mechanical ventilator and an assist-control mode at the rate of 18, tidal volume of 400, FiO2 of 50% with a PEEP of 5. Current oxygen saturations around 96%. The blood gases from today is showing a pH of 7.38 with a pCO2 of 55 and pO2 of 84. The patient underwent a bronchoscopy yesterday. The bronchioloalveolar lavage from the left lung was collected and the cultures are still pending for now. Meanwhile, the patient is covered with triple antibiotic coverage and he is on a combination of Zosyn, vancomycin and Levaquin. He is afebrile for now. He is having a low-grade fever however with a T-max of 99.6 overnight. He is on pressors and 0 was receiving pressors at low-dose levothyroid at 0.05 mcg/kg per minute and norepinephrine infusion was discontinued this morning. He remains in normal saline at the rate of 75 mL's an hour. He is on insulin drip at 6 units an hour for blood sugar control. IV heparin has been discontinued. The patient is currently on Lovenox at a dose of 120 mg every 12 hours. The current white cell count 11.6 with a hemoglobin of 11.1 and a platelet count of 123. BUN is at 20 with a creatinine of 1.0. Sodium is at 137 Naren glucose at 177, calcium is at 7.7 and a phosphorus is 2.1. Pro-calcitonin level is gradually improving. It was as high as 5.3 currently is down to 2.3. Meanwhile, the patient's chest x-ray from today is showing bilateral pulmonary infiltrates which is essentially unchanged compared to yesterday. All of the lites are in good location including the right IJ triple-lumen catheter and the orogastric and orotracheal tube. The patient is receiving enteral feeding with vital HF at the rate of 30 mL an hour which is currently at goal. 11/13/2021, patient is being seen for a follow-up. The patient remains intubated on a mechanical ventilator and the patient sedated with propofol. The propofol is running at 30 mcg/kg per minute. The patient is easily arousable while of the propofol. Noted the patient has chronic back pain and the patient may need some pain control once taken off the sedation. In any rate, the patient for the time being is still on the mechanical ventilator. He remains on assist control mode at the rate of 18, tidal volume of 400, FiO2 of 50% with a PEEP of 5. Chest x-ray still showing unchanged bilateral pulmonary infiltrates. Nevertheless, the bronchoscopy and the bronchioloalveolar lavage was done and the cultures are still negative and that showed only some yeast. No bacterial growth was noted and the patient is on the same antibiotic coverage. The blood gases showed a pH of 7.34 episodes of 56 and pO2 of 128. The peak and static pressures are nonelevated. The pro-calcitonin level A LEVEL IS IMPROVING AND STARTED ON A 2.3. THE WHITE CELL COUNT IS ALSO DOWN TO 5.3. HEMOGLOBIN 11.3. THE PATIENT IS OFF PRESSORS SINCE 4 AM THIS MORNING. IV FLUIDS IN THE FORM OF NORMAL SALINE AT THE RATE OF 75 ML AN HOUR. OVERALL FLUID BALANCE IS +2.8 L. THE PATIENT IS RECEIVING VITAl AF for enteral feeding and nutritional support. 11/14/2021, the patient is extubated the patient is currently on 2 L of oxygen b y nasal cannula. The patient is calm and comfortable. The patient denies having a specific complaints. He is covered on some thick yellowish sputum that needs to be further cultures again. Note that the patient had a bronchoscopy and the bronchioloalveolar lavage and the microbial cultures were positive for Sandra. Nevertheless, I clearly think that the patient does not have any underlying fungal infection and the patient a bacterial infection with septic shock and elevated pro-calcitonin level which subsequently dropped. The patient is currently afebrile. The patient is on a combination of Zosyn and Levaquin. The patient was taken off the vancomycin. Meanwhile, the patient's white cell count is dropped down to 4.7 with a hemoglobin of 10.5 and a platelet counts are stable at 111. The BUN is at 11 with a creatinine of 0.7 and the sodium level is at 13. The patient is currently on Lovenox 120 mg subcu every 12 hours regarding his previous history of hypercoagulable state. This will be transitioned gradually to warfarin. He is awake and alert. He is tolerating his diet. He needs to bring in his own AVAPS machine from home to utilize overnight. 11/15/2021, the patient remains extubated. This morning, the patient's, comfortable on 2 L about 2 by nasal cannula. Doing well. No specific complaints. Using incentive spirometer. Remains on examination of Zosyn and Levaquin for now as broad-spectrum antibiotic regarding his underlying pneumonia which resulted respiratory failure. The patient is hemodynamically stable. He is communicating. No focal neurological deficit. He remains on Lovenox 120 mg subcu every 12 hours and the patient is also being adequately coagulated with warfarin. He was given a 10 mg dose of warfarin yesterday and the PT/INR remains subtherapeutic. He is on Levemir insulin 50 units along with a sliding scale coverage. No fever. No chills. No altered mentation. Blood work from today shows a white cell count of 6.8 with hemoglobin of 11.7 and a sodium level of 139 with a BUN of 13 and a creatinine of 0.8. The patient is using his BiPAP overnight and he is currently at the pressure of 10/5 cm of water and FiO2 of 30%. 11/15/2021, patient is doing well and has no specific complaints. Is extubated. He is currently on a medical floor and was transferred out of the intensive care unit yesterday. He is doing "orally and he is also on DuoNeb nebulized treatments around the clock. He is also to coagulated with warfarin and the patient is being bridged with Lovenox. Was able to bring in his Trilogy ventilator from home to be a to the hospital. The patient was being given on BiPAP urine output the pressure of 10/5 cm of water. He is ambulating. He is using incentive spirometer. The white cell count from yesterday is at 6.8. INR from today is at 1.1. The patient remains subtherapeutic. Tolerating his diet. Objective - Vital Signs Vital signs: Vital Signs Temp 98.8 F 11/16/21 08:00 Pulse 86 11/16/21 11:14 Resp 17 11/16/21 02:00 BP 151/75 11/16/21 08:00 Pulse Ox 96 11/16/21 08:00 FiO2 30 11/15/21 04:05 Intake & Output 11/15/21 11/16/21 11/16/21 18:59 06:59 18:59 Intake Total 200 Output Total 550 Balance -350 Intake: IV 200 Piperacillin-Tazobactam 3 100 .375 gm In Sodium Chloride 0.9% 100 ml @ 25 mls/hr IVPB Q8HR ROBERTA Rx# :[id number] Sodium Chloride 0.9% 500 100 ml 500 ml @ 20 mls/hr IV .Q24H ROBERTA Rx#:[id number] Output: Urine 550 Other: Voiding Method Indwelling Catheter Toilet Urinal ABP, PAP, CO, CI - Last Documented Arterial Blood Pressure 139/60 - Exam Patient is currently on 2 L of oxygen by nasal cannula, awake and alert Head exam was generally normal. There was no scleral icterus or corneal arcus. Mucous membranes were moist. Neck was supple and without jugular venous distension, thyromegaly, or carotid bruits. Carotids were easily palpable bilaterally. There was no adenopathy. The patient has orogastric and orotracheal tube in place Lungs sounds are diminished bilaterally and the patient has scattered rhonchi heard throughout the lung garcia and the patient scattered crackles and wheezes. Cardiac exam revealed the PMI to be normally situated and sized. The rhythm was regular and no extrasystoles were noted during several minutes of auscultation. The first and second heart sounds were normal and physiologic splitting of the second heart sound was noted. There were no murmurs, rubs, clicks, or gallops. Abdominal exam revealed normal bowel sounds. The abdomen was soft, non-tender, and without masses, organomegaly, or appreciable enlargement of the abdominal aorta. Examination of the extremities revealed easily palpable radial, femoral and pedal pulses. There was no cyanosis, clubbing or edema. Examination of the skin revealed no evidence of significant rashes, suspicious appearing nevi or other concerning lesions. NeurologicallyNeurologically, the patient is awake and alert and the patient does not have any focal neurological deficit. Cranial nerves are essentially intact. - Labs CBC & Chem 7: 11/15/21 05:45 11/15/21 05:45 Labs: Abnormal Lab Results - Last 24 Hours (Table) 11/15/21 11/15/21 11/16/21 Range/Units 16:33 21:38 03:36 PT (9.0-12.0) sec POC Glucose (mg/dL) 274 H 320 H 314 H (70-110) mg/dL 11/16/21 11/16/21 11/16/21 Range/Units 06:26 06:52 11:33 PT 12.2 H (9.0-12.0) sec POC Glucose (mg/dL) 306 H 446 H (70-110) mg/dL Microbiology - Last 24 Hours (Table) 07/18/22 06:45 Blood Culture - Final Blood No Growth after 144 hours 11/10/21 06:45 Blood Culture - Final Blood No Growth after 144 hours 11/11/21 11:00 Fungal Culture - Preliminary Bronchoalviolar Lavage - Left Sandra glabrata Assessment and Plan Plan: Acute hypoxic/hypercapneic respiratory failure, the patient was extubated yesterday on 11/13/2021 and currently is on 2 L oxygen by nasal cannula. Follow-up chest x-ray shows improvement in aeration of the lungs. The patient had a bronchoscopy and the microbial cultures of been negative. Highly suspect bacterial infection/aspiration and the patient is currently on oral Augmentin Septic shock, improving and the patient was taken off sedation today and he was able to follow commands appropriately. He was also taken off pressors. Septic shock has recovered acute latic acidosis, improved and LA is down to 1.3 NARENDRA, recovered, kidney function is normalized CAD and patient is post acute NSTMI in [facility], currently under investigation, tmax 99.6 Morbid obesity, BMI 46.8-Weight loss measures and follow with PCP Diabetes mellitus type 2, on Levemir insulin 50 units daily along with a sliding scale coverage GERD Diabetic peripheral neuropathy Hyperlipidemia Essential hypertension Chronic pain syndrome. 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 Hepatic steatosis, nonalcoholic fatty liver disease Herniated disc in the lumbar spine Partial blindness of left eye Diabetic gastroparesis Anxiety depression On Cymbalta Chronic pain the patient has a morphine pump Previous COVID , 2020 Plan Provide the patient incentive spirometer Continue Augmentin Continue warfarin Continue Lovenox as bridging therapy Increase mobility Trilogy ventilator overnight Continue incentive spirometer Increase his mobility Continue Lasix 40 mg by mouth daily Start the patient on Lipitor Started patient on his Xalatan eyedrops IV fluids to KVO Increase mobility and will continue to follow Patient is currently on a medical floor
--- NOTE | 2021-11-16 15:39 | P.PN ---
Subjective Progress Note Date: 11/15/21 51-year-old male , follows with Dr. Waggoner. patient has a right Charcot foot and also found to have osteomyelitis in October 2020. 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 Patient presented to ER with chest pain and shortness of breath. About a week ago patient was admitted [facility]. Her chest pain. Had a cardiac stress test that was abnormal and a cardiac cath that showed nonocclusive disease and no intervention was done. Since presentation to the ER patient became progressively more short of breath. Becoming less responsive. Was put on a BiPAP. Patient being becoming labored. Patient was seen by Dr. Veras from critical care. He is coming back to intubate the patient. Patient rather lethargic not really able to give on the much of a history. Received antibiotics. In the ICU. Getting bicarbonate. Admitted with bilateral pneumonia, acute hypoxic respiratory failure, delirium. Intubated November 11: ICU. Intubated./Ventilator. FiO2 60 PEEP of 5. Telemetry shows sinus rhythm. Drips include insulin, norepinephrine, IV heparin, propofol. This morning underwent bronchoscopy by Dr. Veras. Significant infectioned secretion obtained from the left bronchus. Discussed with the at the bedside. Has remained febrile. Will change IV heparin to subcu Lovenox. November 12: ICU: On the ventilator intubated with FiO2 59 PEEP of 5. Drips include insulin, norepinephrine, propofol, telemetry shows sinus rhythm. 2 feeding at 36 mL an hour. Jose Roberto colored tracheal secretions. Trial of DC propofol earlier today. Patient got agitated. 11/14/2021, the patient is seen and evaluated in room at bedside; remains extubated. This morning, the patient's, comfortable on 2 L about 2 by nasal cannula. Doing well. No specific complaints. Using incentive spirometer. Remains on examination of Zosyn and Levaquin for now as broad-spectrum antibiotic regarding his underlying pneumonia which resulted respiratory failure. The patient is hemodynamically stable. He is communicating. No focal neurological deficit. He remains on Lovenox 120 mg subcu every 12 hours and the patient is also being adequately coagulated with warfarin. He was given a 10 mg dose of warfarin yesterday and the PT/INR remains subtherapeutic. He is on Levemir insulin 50 units along with a sliding scale coverage. No fever. No chills. No altered mentation. Blood work from today shows a white cell count of 6.8 with hemoglobin of 11.7 and a sodium level of 139 with a BUN of 13 and a creatinine of 0.8. The patient is using his BiPAP overnight and he is currently at the pressure of 10/5 cm of water and FiO2 of 30%. Objective - Vital Signs Vital signs: Vital Signs Temp 98.6 F 11/15/21 08:00 Pulse 76 11/15/21 11:16 Resp 20 11/15/21 11:00 BP 127/69 11/15/21 11:00 Pulse Ox 91 L 11/15/21 11:00 FiO2 30 11/15/21 04:05 Intake & Output 11/14/21 11/15/21 11/15/21 18:59 06:59 18:59 Intake Total 376 393 200 Output Total 2155 410 150 Balance -9 50 Intake: IV 276 373 200 Arterial Line @ 3ml/hr 36 3 Levofloxacin 250Mg-D5w 50 Pmx 250 mg In Dextrose/ Water 1 50ml.bag @ 50 mls /hr IVPB HS RBOERTA Rx#: [id number] Piperacillin-Tazobactam 3 100 100 100 .375 gm In Sodium Chloride 0.9% 100 ml @ 25 mls/hr IVPB Q8HR ROBERTA Rx# :[id number] Sodium Chloride 0.9% 1, 140 000 ml @ 75 mls/hr IV . [id number] ROBERTA Rx#:[id number] Sodium Chloride 0.9% 500 220 100 ml 500 ml @ 20 mls/hr IV .Q24H ROBERTA Rx#:[id number] Intake, IV Titration 100 20 Amount Sodium Chloride 0.9% 500 100 20 ml 500 ml @ 20 mls/hr IV .Q24H ROBERTA Rx#:[id number] Output: Urine 2155 410 150 Other: Voiding Method Indwelling Catheter Indwelling Catheter Indwelling Catheter ABP, PAP, CO, CI - Last Documented Arterial Blood Pressure 139/60 - Exam GENERAL: The patient is alert and oriented x3, not in any acute distress. Well developed, well nourished. HEENT: Pupils are round and equally reacting to light. EOMI. No scleral icterus. No conjunctival pallor. Normocephalic, atraumatic. No pharyngeal erythema. No thyromegaly. CARDIOVASCULAR: S1 and S2 present. No murmurs, rubs, or gallops. PULMONARY: Chest is clear to auscultation, no wheezing or crackles. Lungs are diminished. ABDOMEN: Soft, nontender, nondistended, normoactive bowel sounds. No palpable organomegaly. MUSCULOSKELETAL: No joint swelling or deformity. EXTREMITIES: No cyanosis, clubbing, or pedal edema. Charcot foot. NEUROLOGICAL: Gross neurological examination did not reveal any focal deficits. SKIN: No rashes. Chronic wound bottom of left foot. - Labs CBC & Chem 7: 11/15/21 05:45 11/15/21 05:45 Labs: Abnormal Lab Results - Last 24 Hours (Table) 11/14/21 11/14/21 11/14/21 Range/Units 05:50 17:14 20:54 RBC (4.30-5.90) m/uL Hgb (13.0-17.5) gm/dL Hct (39.0-53.0) % Plt Count (150-450) k/uL Glucose (74-99) mg/dL POC Glucose (mg/dL) 222 H 239 H (70-110) mg/dL Alkaline Phosphatase (38-126) U/L Total Protein (6.3-8.2) g/dL Albumin (3.5-5.0) g/dL Procalcitonin 0.89 H (0.02-0.09) ng/mL 11/15/21 11/15/21 11/15/21 Range/Units 03:10 05:45 05:45 RBC 4.01 L (4.30-5.90) m/uL Hgb 11.7 L (13.0-17.5) gm/dL Hct 36.4 L (39.0-53.0) % Plt Count 134 L (150-450) k/uL Glucose 195 H (74-99) mg/dL POC Glucose (mg/dL) 194 H (70-110) mg/dL Alkaline Phosphatase 149 H (38-126) U/L Total Protein 5.8 L (6.3-8.2) g/dL Albumin 3.0 L (3.5-5.0) g/dL Procalcitonin (0.02-0.09) ng/mL 11/15/21 11/15/21 Range/Units 07:01 12:06 RBC (4.30-5.90) m/uL Hgb (13.0-17.5) gm/dL Hct (39.0-53.0) % Plt Count (150-450) k/uL Glucose (74-99) mg/dL POC Glucose (mg/dL) 188 H 305 H (70-110) mg/dL Alkaline Phosphatase (38-126) U/L Total Protein (6.3-8.2) g/dL Albumin (3.5-5.0) g/dL Procalcitonin (0.02-0.09) ng/mL Microbiology - Last 24 Hours (Table) 11/11/21 11:00 Fungal Culture - Preliminary Bronchoalviolar Lavage - Left Sandra glabrata 11/10/21 06:45 Blood Culture - Preliminary Blood No Growth after 120 hours 11/10/21 06:45 Blood Culture - Preliminary Blood No Growth after 120 hours 11/11/21 11:00 Legionella Culture - Preliminary Bronchial Washings - Left Assessment and Plan Assessment: 1. Bilateral pneumonia, possible aspiration causing hypoxia: Patient has been extubated. IV Zosyn, IV levofloxacin. Bronchoscopy with lavage on November [address] Veras. Cultures showing sandra. 2. Acute hypoxic respiratory failure secondary to pneumonia, : Extubated now on 3L nasal cannula Intubated November 10, extubated November 13 3. Chronic left plantar diabetic wound Wound care per ID: Aquacel silver dressing change every 48 hours -Bilateral foot Charcot foot from diabetes 4. Diabetes mellitus type 2, chronically on insulin uncontrolled with hyperglycemia/ Diabetic peripheral neuropathy: Blood sugar now in the 150's Insulin drip with plan to transition once patient is tolerating oral diet -- On Lyrica 5. Hyperlipidemia Lipitor 6. Hypotensive and septic shock: Slow to respond Patient has been weaned of norepinephrine, blood pressure now in the 150s systolic. 7. Chronic pain syndrome/ Primary osteoarthritis. Morphine pain pump, patient can resume home pain medication 8. Obstructive sleep apnea Uses CPAP 9. Factor V Leyden mutation On Coumadin. Currently on subcu Lovenox Patient does have decreased platelet count today under investigation with hematology consultation 10. 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
--- NOTE | 2021-11-16 15:44 | P.PN ---
Subjective Progress Note Date: 11/16/21 Principal diagnosis: Acute hypoxic/hypercapneic respiratory failure Septic shock Acute renal injury Acute lactic acidosis 51-year-old male , follows with Dr. Waggoner. patient has a right Charcot foot and also found to have osteomyelitis in October 2020. 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 Patient presented to ER with chest pain and shortness of breath. About a week ago patient was admitted [facility] hospital. Her chest pain. Had a cardiac stress test that was abnormal and a cardiac cath that showed nonocclusive disease and no intervention was done. Since presentation to the ER patient became progressively more short of breath. Becoming less responsive. Was put on a BiPAP. Patient being becoming labored. Patient was seen by Dr. Veras from critical care. He is coming back to intubate the patient. Patient rather lethargic not really able to give on the much of a history. Received antibiotics. In the ICU. Getting bicarbonate. Admitted with bilateral pneumonia, acute hypoxic respiratory failure, delirium. Intubated November 11: ICU. Intubated./Ventilator. FiO2 60 PEEP of 5. Telemetry shows sinus rhythm. Drips include insulin, norepinephrine, IV heparin, propofol. This morning underwent bronchoscopy by Dr. Veras. Significant infectioned secretion obtained from the left bronchus. Discussed with the at the bedside. Has remained febrile. Will change IV heparin to subcu Lovenox. November 12: ICU: On the ventilator intubated with FiO2 59 PEEP of 5. Drips include insulin, norepinephrine, propofol, telemetry shows sinus rhythm. 2 feeding at 36 mL an hour. Jose Roberto colored tracheal secretions. Trial of DC propofol earlier today. Patient got agitated. 11/15/2021, the patient is seen and evaluated in room at bedside; remains extubated. This morning, the patient's, comfortable on 2 L about 2 by nasal cannula. Doing well. No specific complaints. Using incentive spirometer. Remains on examinat ion of Zosyn and Levaquin for now as broad-spectrum antibiotic regarding his underlying pneumonia which resulted respiratory failure. The patient is hemodynamically stable. He is communicating. No focal neurological deficit. He remains on Lovenox 120 mg subcu every 12 hours and the patient is also being adequately coagulated with warfarin. He was given a 10 mg dose of warfarin yesterday and the PT/INR remains subtherapeutic. He is on Levemir insulin 50 units along with a sliding scale coverage. No fever. No chills. No altered mentation. Blood work from today shows a white cell count of 6.8 with hemoglobin of 11.7 and a sodium level of 139 with a BUN of 13 and a creatinine of 0.8. The patient is using his BiPAP overnight and he is currently at the pressure of 10/5 cm of water and FiO2 of 30%. 11/16/2021 Patient is seen and evaluated in room at bedside; it was extubated on 11/14/2021 and has been transferred to medical floor; patient has had a few episodes of significant nosebleed Vital signs are reviewed and stable with temperature of 98.8, pulse 86, respirations 17 and blood pressure 151/75. O2 saturation of 96% Patient is currently on subcu Lovenox bridge to Coumadin; remains on home dose of Coumadin with an INR of 1.1; we will plan to hold off on Lovenox and consult ENT for further evaluation; we will monitor H&H closely patient with left diabetic foot ulcer with evidence of any cellulitis recommend local wound care. local wound care to the left foot plantar wound with Aquacel silver dressing change every 48 hour. patient antibiotic has been switched over to oral Augmentin to continue and to monitor clinical course closely Objective - Vital Signs Vital signs: Vital Signs Temp 98.8 F 11/16/21 08:00 Pulse 82 11/16/21 15:28 Resp 17 11/16/21 02:00 BP 151/75 11/16/21 08:00 Pulse Ox 96 11/16/21 08:00 FiO2 30 11/15/21 04:05 Intake & Output 11/15/21 11/16/21 11/16/21 18:59 06:59 18:59 Intake Total 200 Output Total 550 Balance -350 Intake: IV 200 Piperacillin-Tazobactam 3 100 .375 gm In Sodium Chloride 0.9% 100 ml @ 25 mls/hr IVPB Q8HR ROBERTA Rx# :[id number] Sodium Chloride 0.9% 500 100 ml 500 ml @ 20 mls/hr IV .Q24H ROBERTA Rx#:[id number] Output: Urine 550 Other: Voiding Method Indwelling Catheter Toilet Urinal ABP, PAP, CO, CI - Last Documented Arterial Blood Pressure 139/60 - Exam GENERAL: The patient is alert and oriented x3, not in any acute distress. Well developed, well nourished. HEENT: Pupils are round and equally reacting to light. EOMI. No scleral icterus. No conjunctival pallor. Normocephalic, atraumatic. No pharyngeal erythema. No thyromegaly. CARDIOVASCULAR: S1 and S2 present. No murmurs, rubs, or gallops. PULMONARY: Chest is clear to auscultation, no wheezing or crackles. Lungs are diminished. ABDOMEN: Soft, nontender, nondistended, normoactive bowel sounds. No palpable organomegaly. MUSCULOSKELETAL: No joint swelling or deformity. EXTREMITIES: No cyanosis, clubbing, or pedal edema. Charcot foot. NEUROLOGICAL: Gross neurological examination did not reveal any focal deficits. SKIN: No rashes. Chronic wound bottom of left foot. - Labs CBC & Chem 7: 11/15/21 05:45 11/15/21 05:45 Labs: Abnormal Lab Results - Last 24 Hours (Table) 11/15/21 11/15/21 11/16/21 Range/Units 16:33 21:38 03:36 PT (9.0-12.0) sec POC Glucose (mg/dL) 274 H 320 H 314 H (70-110) mg/dL 11/16/21 11/16/21 11/16/21 Range/Units 06:26 06:52 11:33 PT 12.2 H (9.0-12.0) sec POC Glucose (mg/dL) 306 H 446 H (70-110) mg/dL Microbiology - Last 24 Hours (Table) 11/10/21 06:45 Blood Culture - Final Blood No Growth after 144 hours 11/10/21 06:45 Blood Culture - Final Blood No Growth after 144 hours Assessment and Plan Assessment: 1. Bilateral pneumonia, possible aspiration causing hypoxia: Patient has been extubated. IV Zosyn, IV levofloxacin. Bronchoscopy with lavage on November [address] Veras. Cultures showing panda. 2. Acute hypoxic respiratory failure secondary to pneumonia, : Extubated now on 3L nasal cannula Intubated November 10, extubated November 13 3. Chronic left plantar diabetic wound Wound care per ID: Aquacel silver dressing change every 48 hours -Bilateral foot Charcot foot from diabetes 4. Diabetes mellitus type 2, chronically on insulin uncontrolled with hyper glycemia/ Diabetic peripheral neuropathy: Blood sugar now in the 150's Insulin drip with plan to transition once patient is tolerating oral diet -- On Lyrica 5. Hyperlipidemia Lipitor 6. Hypotensive and septic shock: Slow to respond Patient has been weaned of norepinephrine, blood pressure now in the 150s systolic. 7. Chronic pain syndrome/ Primary osteoarthritis. Morphine pain pump, patient can resume home pain medication 8. Obstructive sleep apnea Uses CPAP 9. Factor V Leyden mutation On Coumadin. Currently on subcu Lovenox Patient does have decreased platelet count today under investigation with hematology consultation 10. 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
[2021-11-16 15:50] LABS: HCT 40.2 % (39.0-53.0); MCH 29.4 pg (25.0-35.0); MCHC 32.3 g/dL (31.0-37.0); Mean Platelet Volume 9.1; Platelet Count 165 k/uL (150-450); RBC 4.42 m/uL (4.30-5.90); RDW 15.1 % (11.5-15.5); WBC 6.6 k/uL (3.8-10.6)
[2021-11-16 17:05] LABS: Glucose,Whole Blood 370 mg/dL (70-110)
--- NOTE | 2021-11-16 17:45 | P.PN ---
Subjective Progress Note Date: 11/16/21 Principal diagnosis: Left diabetic foot ulcer/pneumonia Patient is a 51 year old male with past medical history significant for left diabetic foot ulcer present at the hospital with acute respiratory failure requiring intubation concern for pneumonia status post bronchoscopy completed 11/11/2021. The patient was extubated 11/13/2021, patient has been moved out of the ICU 11/15/2021 On today's evaluation that is 11/16/2021, the patient denies any fever or chills, the patient is breathing comfortably on nasal cannula oxygen, the patient denies denies any chest pain , the patient did have occasional dry cough, the patient denies abdominal pain no diarrhea, the patient denies pain to the left foot area Objective - Vital Signs Vital signs: Vital Signs Temp 98.2 F 11/16/21 14:00 Pulse 82 11/16/21 15:28 Resp 17 11/16/21 02:00 BP 108/75 11/16/21 14:00 Pulse Ox 94 L 11/16/21 14:00 FiO2 30 11/15/21 04:05 Intake & Output 11/15/21 11/16/21 11/16/21 18:59 06:59 18:59 Intake Total 200 Output Total 550 Balance -350 Intake: IV 200 Piperacillin-Tazobactam 3 100 .375 gm In Sodium Chloride 0.9% 100 ml @ 25 mls/hr IVPB Q8HR ROBERTA Rx# :[id number] Sodium Chloride 0.9% 500 100 ml 500 ml @ 20 mls/hr IV .Q24H ROBERTA Rx#:[id number] Output: Urine 550 Other: Voiding Method Indwelling Catheter Toilet Urinal ABP, PAP, CO, CI - Last Documented Arterial Blood Pressure 139/60 - Exam GENERAL DESCRIPTION: Middle-aged male up in the bed in no distress RESPIRATORY SYSTEM: Unlabored breathing , decreased breath sounds at bases HEART: S1 S2 regular rate and rhythm , ABDOMEN: Soft , no tenderness EXTREMITIES: Left foot wound is dressed no drainage on the dressing - Labs CBC & Chem 7: 11/16/21 15:21 11/15/21 05:45 Labs: Abnormal Lab Results - Last 24 Hours (Table) 11/15/21 11/16/21 11/16/21 Range/Units 21:38 03:36 06:26 PT 12.2 H (9.0-12.0) sec POC Glucose (mg/dL) 320 H 314 H (70-110) mg/dL 11/16/21 11/16/21 11/16/21 Range/Units 06:52 11:33 17:03 PT (9.0-12.0) sec POC Glucose (mg/dL) 306 H 446 H 370 H (70-110) mg/dL Microbiology - Last 24 Hours (Table) 11/10/21 06:45 Blood Culture - Final Blood No Growth after 144 hours 11/10/21 06:45 Blood Culture - Final Blood No Growth after 144 hours Assessment and Plan (1) Community acquired pneumonia Current Visit: Yes Status: Acute Code(s): J18.9 - PNEUMONIA, UNSPECIFIED ORGANISM SNOMED Code(s): 471921139 (2) Diabetic foot ulcer Current Visit: No Status: Acute Code(s): E11.621 - TYPE 2 DIABETES MELLITUS WITH FOOT ULCER; L97.509 - NON-PRESSURE CHRONIC ULCER OTH PRT UNSP FOOT W UNSP SEVERITY SNOMED Code(s): 248792443 Plan: 1patient presented to hospital with sepsis and respiratory have fever elevated white count with predominant respiratory symptoms concerning for likely pneumonia in this patient who has been in of the hospital only to cover for resistant gram-positive as well as gram-negative and a question of aspiration etiology in this patient was status post bronchoscopy and lavage and cultures are growing Sandra which is more likely colonizer. 2patient with left diabetic foot ulcer with evidence of any cellulitis recommend local wound care. local wound care to the left foot plantar wound with Aquacel silver dressing change every 48 hour. 3patient slowly clinical improvement and will continue with oral Augmentin and to monitor clinical course closely Time with Patient: Less than 30
[2021-11-16] MEDS ORDERED: WARFARIN 3 MG TAB PO ONE (18:00)
--- NOTE | 2021-11-16 18:04 | P.PN ---
Subjective Progress Note Date: 11/16/21 Patient did have nose bleed lasting 40 minutes this am therefore he was concerned about the lovenox and warfarin, explained the different pathways of clotting as well as the recent ICU, Oxygen, if recurs ENT to assess for cauterixzing or packing, in the interim please add humidifier to [place] O2, discussed with nursing Objective - Vital Signs Vital signs: Vital Signs Temp 98.8 F 11/16/21 08:00 Pulse 86 11/16/21 11:14 Resp 17 11/16/21 02:00 BP 151/75 11/16/21 08:00 Pulse Ox 96 11/16/21 08:00 FiO2 30 11/15/21 04:05 Intake & Output 11/15/21 11/16/21 11/16/21 18:59 06:59 18:59 Intake Total 200 Output Total 550 Balance -350 Intake: IV 200 Piperacillin-Tazobactam 3 100 .375 gm In Sodium Chloride 0.9% 100 ml @ 25 mls/hr IVPB Q8HR ROBERTA Rx# :[id number] Sodium Chloride 0.9% 500 100 ml 500 ml @ 20 mls/hr IV .Q24H ROBERTA Rx#:[id number] Output: Urine 550 Other: Voiding Method Indwelling Catheter Toilet Urinal ABP, PAP, CO, CI - Last Documented Arterial Blood Pressure 139/60 - Exam - EENT Eyes: EOMI ENT: NA/AT - Neck Neck: normal ROM - Respiratory Respiratory: bilateral: diminished - Cardiovascular Rhythm: regularly irregular - Gastrointestinal General gastrointestinal: soft - Integumentary Integumentary: pale - Musculoskeletal Musculoskeletal: generalized weakness - Labs CBC & Chem 7: 11/16/21 15:21 11/15/21 05:45 Labs: Abnormal Lab Results - Last 24 Hours (Table) 11/15/21 11/15/21 11/16/21 Range/Units 16:33 21:38 03:36 PT (9.0-12.0) sec POC Glucose (mg/dL) 274 H 320 H 314 H (70-110) mg/dL 11/16/21 11/16/21 11/16/21 Range/Units 06:26 06:52 11:33 PT 12.2 H (9.0-12.0) sec POC Glucose (mg/dL) 306 H 446 H (70-110) mg/dL Microbiology - Last 24 Hours (Table) 11/10/21 06:45 Blood Culture - Final Blood No Growth after 144 hours 11/10/21 06:45 Blood Culture - Final Blood No Growth after 144 hours 11/11/21 11:00 Fungal Culture - Preliminary Bronchoalviolar Lavage - Left Sandra glabrata Assessment and Plan (1) Acute exacerbation of chronic obstructive pulmonary disease Narrative/Plan: Add humidifier to O2 Current Visit: Yes Status: Acute Code(s): J44.1 - CHRONIC OBSTRUCTIVE PULMONARY DISEASE W (ACUTE) EXACERBATION SNOMED Code(s): 326737570 (2) Community acquired pneumonia Current Visit: Yes Status: Acute Code(s): J18.9 - PNEUMONIA, UNSPECIFIED ORGANISM SNOMED Code(s): 720254399 (3) Hypoxia Current Visit: Yes Status: Acute Code(s): R09.02 - HYPOXEMIA SNOMED Code(s): 952917719 (4) Factor 5 Leiden mutation, heterozygous Narrative/Plan: Continue on bridge to warfarin, may decrease lovenox to 1.5/kg/day with recent bleed nose Receheck CBC to assesss hgb Current Visit: No Status: Chronic Code(s): D68.51 - ACTIVATED PROTEIN C RESISTANCE SNOMED Code(s): 233401505 (5) Thrombocytopenia Narrative/Plan: Mild, 134 improved K. No further intervention needed at this time, may continue therapeutic AC therapy for known hypercoagulable state. Most likely related to acute infection/Inflammation and Anti-fungal/Antibiotics Monitor for bleeding Monitor CBC daily HIT antibodies pending, less likely related Current Visit: Yes Status: Acute Code(s): D69.6 - THROMBOCYTOPENIA, UNSPECIFIED SNOMED Code(s): 306043334
[2021-11-16 19:17] LABS: Glucose,Whole Blood 379 mg/dL (70-110)
[2021-11-16] MEDS: ALPRAZolam 0.25 MG TAB PO PRN (20:00)
[2021-11-16] MEDS: ATORVASTATIN 10 MG TAB PO SCH (20:01)
[2021-11-16] MEDS: LATANOPROST 0.005% OPHTH DROPS 2.5 ML BTL BOTH EYES SCH (20:03)
[2021-11-16] MEDS: INSULIN DETEMIR (LEVEMIR) 100 UNIT/ML SYR SQ SCH (20:31)
[2021-11-17 02:45] LABS: Glucose,Whole Blood 343 mg/dL (70-110)
[2021-11-17 07:03] LABS: Glucose,Whole Blood 305 mg/dL (70-110)
[2021-11-17 07:07] LABS: INR 1.2 (<1.2); Prothrombin Time 12.7 sec (9.0-12.0)
[2021-11-17] MEDS: FUROSEMIDE 40 MG TAB PO SCH (07:38)
[2021-11-17] MEDS: PREGABALIN 100 MG CAP PO SCH ×2 (07:38→21:40)
[2021-11-17] MEDS: PANTOPRAZOLE 40 MG/10 ML VIAL IV SCH (07:38)
[2021-11-17] MEDS: INSULIN ASPART (NovoLOG) 100 UNIT/ML VIAL SQ SCH ×5 (07:38→21:40)
[2021-11-17] MEDS: AMOXIC-POT CLAV 875-125MG 1 EACH TAB PO SCH ×2 (07:39→21:40)
[2021-11-17] MEDS: IPRATROPIUM-ALBUTEROL 3 ML NEB INHALATION SCH ×4 (08:15→20:08)
[2021-11-17 09:44] LABS: ALT 33 U/L (4-49); AST 26 U/L (17-59); African American GFR (CKD) >90 (>60 ml/min/1.73 sqM); Albumin 3.4 g/dL (3.5-5.0); Albumin/Globulin Ratio 1.1; Alkaline Phosphatase 157 U/L (38-126); Anion Gap 7 mmol/L; Blood Urea Nitrogen 21 mg/dL (9-20); Calcium 8.9 mg/dL (8.4-10.2); Carbon Dioxide 29 mmol/L (22-30); Chloride 99 mmol/L (98-107); Globulin 3.1 g/dL; Glucose 311 mg/dL (74-99); Non-African American GFR(CKD) >90 (>60 ml/min/1.73 sqM); Potassium 4.7 mmol/L (3.5-5.1); Sodium 135 mmol/L (137-145); Total Bilirubin 0.5 mg/dL (0.2-1.3); Total Protein 6.5 g/dL (6.3-8.2)
[2021-11-17 11:52] LABS: Glucose,Whole Blood 326 mg/dL (70-110)
--- NOTE | 2021-11-17 12:27 | P.PN ---
Subjective Progress Note Date: 11/17/21 Principal diagnosis: Altered mental status, dyspnea This is a 51-year-old male patient came into the emergency department because of chest pain. Note that the patient was in [facility] for chest pain approximately week ago and the patient was given a cardiac evaluation which included a cardiac stress and that came back abnormal and following that the patient was given a cardiac catheterization that showed nonocclusive disease and no intervention was done. Yesterday, the patient came in to the emergency department as the patient was complaining of increased shortness of breath and chest pain. His chest x-ray showed some cardiomegaly and increased bilateral interstitial pulmonary infiltrates which also raises the concern for an underlying pneumonia. While in the emergency, the patient started having episodes of fever and he became more obtunded and short of breath. At that point, the patient was started on BiPAP for respiratory support. The patient was started on a BiPAP at a pressure of 14/5 cm water and FiO2 of 40%. The pH was at 7.17 with a pCO2 of 64 and pO2 of 83 and this was not an FiO2 of 50%. At a time of my arrival, the patient's breathing was still labored and the patient was quite lethargic and obtunded. He was able to generate an adequate tidal volume of 400 mL. Nevertheless, the patient was still having shortness of breath and her breathing was labored with a high minute ventilation and a high respiratory rate. The patient was already given a total of 2 L of IV fluid and the patient was given a combination of Rocephin and Zithromax covering for a pneumonia. The workup that has been done showed a white cell count of 23 with a hemoglobin of 13.7 and a platelet count of 219. Normal coagulation profile. Lactic acid level was at 4.1. Blood sugars were elevated at around 370. UA showed +2 glucose, +1 protein and +9 white cells. The coagulation profile was within normal limits. COVID 19 by PCR came back also negative. After being transferred to the intensive care unit, the patient was monitored very closely and subsequently was decided to LAD and intubated the patient put him on a mechanical ventilator. Note that the patient had a triple lumen catheter established in the emergency department. The patient was also started on low- dose norepinephrine running at 0.05 mg/kg per minute. He was started on bicarb infusion. Noted the patient is a chronic CO2 retainer patient has a relatively elevated serum bicarbonate level at baseline. On today's evaluation of 11/11/2021, the patient is being seen for a follow-up. The patient remains intubated on mechanical ventilator. On today's evaluation, the patient remains on a propofol which is running at 50 mcg/kg per minute. The patient is on a mechanical ventilator on assist control mode at the rate of 18 without volume of 400 and FiO2 of 50% with a PEEP of 5. The blood gases showed a pH of 7.38 with a pCO2 of 53 and pO2 of 11. The peak airway pressure is 29. His pro-calcitonin level is at 5.3 supporting the possibility of underlying bacterial infection and same time the patient was having episodes of fever with a T-max of 101.4F. Note that the patient's overall acid base status is improved as the patient was also being given bicarb infusion rate of 100 mL an hour. The blood gases from today shows improvement with a pH of 7.38 And a serum bicarbonate is currently at 32 which is very close to the patient's baseline. The patient has been adequately resuscitated IV fluids. He remains on norepinephrine infusion running at 0.1 g respiratory per minute. Urine output is adequate. The patient had an echocardiogram that showed a preserved L V function with an ejection fraction of 65%. The patient remains on insulin drip at 7.5 units an hour and the patient is also on IV heparin. On today's evaluation, the white cell count of 21 with a hemoglobin 15.7. Serum bicarb is at 32 with a sodium level of 139 and a BUN of 38 a CAT scan of 1.5. No other significant events overnight. Antibiotic coverage has been broadened to include a combination of Zosyn, Levaquin and vancomycin. Note that the patient's cultures are all negative thus far. Blood sugars under better control for now. 11/12/2021, the patient is being seen for a follow-up. The patient remains intubated on a mechanical ventilator for bilateral pneumonia and sepsis. This morning, the patient remains on propofol which is running at 40 mcg/kg per minute. The patient has been adequately sedated at this point in time and the patient is full asynchronous with a mechanical ventilator. The patient remains on a mechanical ventilator and an assist-control mode at the rate of 18, tidal volume of 400, FiO2 of 50% with a PEEP of 5. Current oxygen saturations around 96%. The blood gases from today is showing a pH of 7.38 with a pCO2 of 55 and pO2 of 84. The patient underwent a bronchoscopy yesterday. The bronchioloalveolar lavage from the left lung was collected and the cultures are still pending for now. Meanwhile, the patient is covered with triple antibiotic coverage and he is on a combination of Zosyn, vancomycin and Levaquin. He is afebrile for now. He is having a low-grade fever however with a T-max of 99.6 overnight. He is on pressors and 0 was receiving pressors at low-dose levothyroid at 0.05 mcg/kg per minute and norepinephrine infusion was discontinued this morning. He remains in normal saline at the rate of 75 mL's an hour. He is on insulin drip at 6 units an hour for blood sugar control. IV heparin has been discontinued. The patient is currently on Lovenox at a dose of 120 mg every 12 hours. The current white cell count 11.6 with a hemoglobin of 11.1 and a platelet count of 123. BUN is at 20 with a creatinine of 1.0. Sodium is at 137 Naren glucose at 177, calcium is at 7.7 and a phosphorus is 2.1. Pro-calcitonin level is gradually improving. It was as high as 5.3 currently is down to 2.3. Meanwhile, the patient's chest x-ray from today is showing bilateral pulmonary infiltrates which is essentially unchanged compared to yesterday. All of the lites are in good location including the right IJ triple-lumen catheter and the orogastric and orotracheal tube. The patient is receiving enteral feeding with vital HF at the rate of 30 mL an hour which is currently at goal. 11/13/2021, patient is being seen for a follow-up. The patient remains intubated on a mechanical ventilator and the patient sedated with propofol. The propofol is running at 30 mcg/kg per minute. The patient is easily arousable while of the propofol. Noted the patient has chronic back pain and the patient may need some pain control once taken off the sedation. In any rate, the patient for the time being is still on the mechanical ventilator. He remains on assist control mode at the rate of 18, tidal volume of 400, FiO2 of 50% with a PEEP of 5. Chest x-ray still showing unchanged bilateral pulmonary infiltrates. Nevertheless, the bronchoscopy and the bronchioloalveolar lavage was done and the cultures are still negative and that showed only some yeast. No bacterial growth was noted and the patient is on the same antibiotic coverage. The blood gases showed a pH of 7.34 episodes of 56 and pO2 of 128. The peak and static pressures are nonelevated. The pro-calcitonin level A LEVEL IS IMPROVING AND STARTED ON A 2.3. THE WHITE CELL COUNT IS ALSO DOWN TO 5.3. HEMOGLOBIN 11.3. THE PATIENT IS OFF PRESSORS SINCE 4 AM THIS MORNING. IV FLUIDS IN THE FORM OF NORMAL SALINE AT THE RATE OF 75 ML AN HOUR. OVERALL FLUID BALANCE IS +2.8 L. THE PATIENT IS RECEIVING VITAl AF for enteral feeding and nutritional support. 11/14/2021, the patient is extubated the patient is currently on 2 L of oxygen by nasal cannula. The patient is calm and comfortable. The patient denies having a specific complaints. He is covered on some thick yellowish sputum that needs to be further cultures again. Note that the patient had a bronchoscopy and the bronchioloalveolar lavage and the microbial cultures were positive for Sandra. Nevertheless, I clearly think that the patient does not have any underlying fungal infection and the patient a bacterial infection with septic shock and elevated pro-calcitonin level which subsequently dropped. The patient is currently afebrile. The patient is on a combination of Zosyn and Levaquin. The patient was taken off the vancomycin. Meanwhile, the patient's white cell count is dropped down to 4.7 with a hemoglobin of 10.5 and a platelet counts are stable at 111. The BUN is at 11 with a creatinine of 0.7 and the sodium level is at 13. The patient is currently on Lovenox 120 mg subcu every 12 hours regarding his previous history of hypercoagulable state. This will be transitioned gradually to warfarin. He is awake and alert. He is tolerating his diet. He needs to bring in his own AVAPS machine from home to utilize overnight. 11/15/2021, the patient remains extubated. This morning, the patient's, comfortable on 2 L about 2 by nasal cannula. Doing well. No specific complaints. Using incentive spirometer. Remains on examination of Zosyn and Levaquin for now as broad-spectrum antibiotic regarding his underlying pneumonia which resulted respiratory failure. The patient is hemodynamically stable. He is communicating. No focal neurological deficit. He remains on Lovenox 120 mg subcu every 12 hours and the patient is also being adequately coagulated with warfarin. He was given a 10 mg dose of warfarin yesterday and the PT/INR remains subtherapeutic. He is on Levemir insulin 50 units along with a sliding scale coverage. No fever. No chills. No altered mentation. Blood work from today shows a white cell count of 6.8 with hemoglobin of 11.7 and a sodium level of 139 with a BUN of 13 and a creatinine of 0.8. The patient is using his BiPAP overnight and he is currently at the pressure of 10/5 cm of water and FiO2 of 30%. 11/15/2021, patient is doing well and has no specific complaints. Is extubated. He is currently on a medical floor and was transferred out of the intensive care unit yesterday. He is doing "orally and he is also on DuoNeb nebulized treatments around the clock. He is also to coagulated with warfarin and the patient is being bridged with Lovenox. Was able to bring in his Trilogy ventilator from home to be a to the hospital. The patient was being given on BiPAP urine output the pressure of 10/5 cm of water. He is ambulating. He is using incentive spirometer. The white cell count from yesterday is at 6.8. INR from today is at 1.1. The patient remains subtherapeutic. Tolerating his diet. On 11/17/2021 patient seen in follow-up on medical surgical floor. He is sitting up in the recliner, breathing comfortably, is currently on 2 L of oxygen pulse ox is 96%. Patient has his Trilogy ventilator from home which he states he wore last night. No worsening dyspnea on no chest pain, no worsening cough or congestion. No hemoptysis. His last chest x-ray from 11/14/2021 showed improvement in patient's fine status and aeration. Patient's antibiotics have been converted to oral Augmentin, patient remains on nebulized bronchodilators, and steroids have been discontinued. His BAL cultures showed Sandra glabrata and Sandra albicans. Vital signs have been stable, his been afebrile. Neurologically is awake and alert, answering questions appropriately. He is on 0.9 ns 20 ML per hour. Is tolerating oral intake. Objective - Vital Signs Vital signs: Vital Signs Temp 98.3 F 11/17/21 08:06 Pulse 76 11/17/21 12:17 Resp 18 11/17/21 08:06 BP 122/75 11/17/21 08:06 Pulse Ox 96 11/17/21 08:15 FiO2 30 11/15/21 04:05 Intake & Output 11/16/21 11/17/21 11/17/21 18:59 06:59 18:59 Output Total 900 Balance -900 Output: Urine 900 Other: Voiding Method Toilet Urinal ABP, PAP, CO, CI - Last Documented Arterial Blood Pressure 139/60 - Exam GENERAL EXAM: Alert, pleasant, 51-year-old white male at 2 L of oxygen resting in a chair comfortable in no apparent distress. HEAD: Normocephalic/atraumatic. EYES: Normal reaction of pupils, equal size. Conjunctiva pink, sclera white. NOSE: Clear with pink turbinates. THROAT: No erythema or exudates. NECK: No masses, no JVD, no thyroid enlargement, no adenopathy. CHEST: No chest wall deformity. Symmetrical expansion. LUNGS: Equal air entry with no crackles, wheeze, rhonchi or dullness. CVS: Regular rate and rhythm, normal S1 and S2, no gallops, no murmurs, no rubs ABDOMEN: Soft, nontender. No hepatosplenomegaly, normal bowel sounds, no guarding or rigidity. EXTREMITIES: No clubbing, no edema, no cyanosis, 2+ pulses and upper and lower extremities. MUSCULOSKELETAL: Muscle strength and tone normal. SPINE: No scoliosis or deformity SKIN: No rashes CENTRAL NERVOUS SYSTEM: Alert and oriented -3. No focal deficits, tone is normal in all 4 extremities. PSYCHIATRIC: Alert and oriented -3. Appropriate affect. Intact judgment and insight. - Labs CBC & Chem 7: 11/16/21 15:21 11/17/21 06:12 Labs: Abnormal Lab Results - Last 24 Hours (Table) 11/16/21 11/16/21 11/17/21 Range/Units 17:03 19:16 02:43 PT (9.0-12.0) sec INR (<1.2) Sodium (137-145) mmol/L BUN (9-20) mg/dL Glucose (74-99) mg/dL POC Glucose (mg/dL) 370 H 379 H 343 H (70-110) mg/dL Alkaline Phosphatase (38-126) U/L Albumin (3.5-5.0) g/dL 11/17/21 11/17/21 11/17/21 Range/Units 06:12 06:12 07:01 PT 12.7 H (9.0-12.0) sec INR 1.2 H (<1.2) Sodium 135 L (137-145) mmol/L BUN 21 H (9-20) mg/dL Glucose 311 H (74-99) mg/dL POC Glucose (mg/dL) 305 H (70-110) mg/dL Alkaline Phosphatase 157 H (38-126) U/L Albumin 3.4 L (3.5-5.0) g/dL 11/17/21 Range/Units 11:50 PT (9.0-12.0) sec INR (<1.2) Sodium (137-145) mmol/L BUN (9-20) mg/dL Glucose (74-99) mg/dL POC Glucose (mg/dL) 326 H (70-110) mg/dL Alkaline Phosphatase (38-126) U/L Albumin (3.5-5.0) g/dL Microbiology - Last 24 Hours (Table) 11/10/21 06:45 Blood Culture - Final Blood No Growth after 144 hours 11/10/21 06:45 Blood Culture - Final Blood No Growth after 144 hours Assessment and Plan Plan: Assessment: Acute hypoxic/hypercapneic respiratory failure, the patient was extubated yesterday on 11/13/2021 and currently is on 2 L oxygen by nasal cannula. Follow-up chest x-ray shows improvement in aeration of the lungs. The patient had a bronchoscopy and the microbial cultures of been negative. Highly suspect bacterial infection/aspiration and the patient is currently on oral Augmentin Septic shock, improving and the patient was taken off sedation today and he was able to follow commands appropriately. He was also taken off pressors. Septic shock has recovered acute latic acidosis, improved and LA is down to 1.3 NARENDRA, recovered, kidney function is normalized CAD and patient is post acute [facility]STMI in [facility], currently under investigation, tmax 99.6 Morbid obesity, BMI 46.8-Weight loss measures and follow with PCP Diabetes mellitus type 2, on Levemir insulin 50 units daily along with a sliding scale coverage GERD Diabetic peripheral neuropathy Hyperlipidemia Essential hypertension Chronic pain syndrome. 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 Hepatic steatosis, nonalcoholic fatty liver disease Herniated disc in the lumbar spine Partial blindness of left eye Diabetic gastroparesis Anxiety depression On Cymbalta Chronic pain the patient has a morphine pump Previous COVID , 2020 Plan: Patient is stable from pulmonary perspective No worsening dyspnea or cough Vital signs are stable Infectious disease recommendations for discharge antibiotics have been noted Patient has been transitioned to oral Augmentin He continues on Lovenox and warfarin From pulmonary perspective he can be considered for discharge home with home care Outpatient follow-up with Dr. Veras in the office in one week I have personally seen and examined the patient, performed the documentation and the assessment and plan as written. Number of minutes spent on the visit: [10] Time with Patient: Less than 30
--- NOTE | 2021-11-17 15:30 | P.PN ---
Subjective Progress Note Date: 11/17/21 Hospital course: This is a pleasant 51-year-old male , follows with Dr. Waggoner. patient has a right Charcot foot and also found to have osteomyelitis in October 2020. 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 Patient presented to ER with chest pain and shortness of breath. About a week ago patient was admitted [facility]. Her chest pain. Had a cardiac stress test that was abnormal and a cardiac cath that showed nonocclusive disease and no intervention was done. Since presentation to the ER patient became progr essively more short of breath. Becoming less responsive. Was put on a BiPAP. Patient being becoming labored. Patient was seen by Dr. Veras from critical care. He is coming back to intubate the patient. Patient rather lethargic not really able to give on the much of a history. Received antibiotics. In the ICU. Getting bicarbonate. Admitted with bilateral pneumonia, acute hypoxic respiratory failure, delirium. Intubated November 11: ICU. Intubated./Ventilator. FiO2 60 PEEP of 5. Telemetry shows sinus rhythm. Drips include insulin, norepinephrine, IV heparin, propofol. This morning underwent bronchoscopy by Dr. Veras. Significant infectioned secretion obtained from the left bronchus. Discussed with the at the bedside. Has remained febrile. Will change IV heparin to subcu Lovenox. November 12: ICU: On the ventilator intubated with FiO2 59 PEEP of 5. Drips include insulin, norepinephrine, propofol, telemetry shows sinus rhythm. 2 feeding at 36 mL an hour. Jose Roberto colored tracheal secretions. Trial of DC propofol earlier today. Patient got agitated. 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 No history of alcohol or smoking. Family history: Bladder cancer 11/13/2021 Patient evaluated in the intensive care unit, he was extubated about 945 am today. Continues on nasal cannula 2L now with 97% oxygen saturation. Afebrile, heart rate 80, blood pressure 157/68. Remains afebrile. Continues with central line, on IV levofloxacin, IV Zosyn. Vancomycin has been discontinued. Bronchial washings showing panda glabrata, albicans. He does have a chronic wound on left foot which has a dressing over, he sees Dr Coleman weekly for this. INR today 1.0, patient is on coumadin at home, has been received lovenox 120 BID for prophylaxis here and his platelet count has slowly dropped now 103, hematology has been consulted for evaluation. He continues on insulin gtt, plan to transition today to home insulin once tolerating diet. He would also like to get up in the chair today. 11/14/21 51-year-old male , follows with Dr. Waggoner. patient has a right Charcot foot and also found to have osteomyelitis in October 2020. 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 Patient presented to ER with chest pain and shortness of breath. About a week ago patient was admitted [facility]. Her chest pain. Had a cardiac stress test that was abnormal and a cardiac cath that showed nonocclusive disease and no intervention was done. Since presentation to the ER patient became progressively more short of breath. Becoming less responsive. Was put on a BiPAP. Patient being becoming labored. Patient was seen by Dr. Veras from critical care. He is coming back to intubate the patient. Patient rather lethargic not really able to give on the much of a history. Received antibiotics. In the ICU. Getting bicarbonate. Admitted with bilateral pneumonia, acute hypoxic respiratory failure, delirium. Intubated November 11: ICU. Intubated./Ventilator. FiO2 60 PEEP of 5. Telemetry shows sinus rhythm. Drips include insulin, norepinephrine, IV heparin, propofol. This morning underwent bronchoscopy by Dr. Veras. Significant infectioned secretion obtained from the left bronchus. Discussed with the at the bedside. Has remained febrile. Will change IV heparin to subcu Lovenox. November 12: ICU: On the ventilator intubated with FiO2 59 PEEP of 5. Drips include insulin, norepinephrine, propofol, telemetry shows sinus rhythm. 2 feeding at 36 mL an hour. Jose Roberto colored tracheal secretions. Trial of DC propofol earlier today. Patient got agitated. 11/15/2021, the patient is seen and evaluated in room at bedside; remains extubated. This morning, the patient's, comfortable on 2 L about 2 by nasal cannula. Doing well. No specific complaints. Using incentive spirometer. Remains on examination of Zosyn and Levaquin for now as broad-spectrum antibiotic regarding his underlying pneumonia which resulted respiratory failure. The patient is he modynamically stable. He is communicating. No focal neurological deficit. He remains on Lovenox 120 mg subcu every 12 hours and the patient is also being adequately coagulated with warfarin. He was given a 10 mg dose of warfarin yesterday and the PT/INR remains subtherapeutic. He is on Levemir insulin 50 units along with a sliding scale coverage. No fever. No chills. No altered mentation. Blood work from today shows a white cell count of 6.8 with hemoglobin of 11.7 and a sodium level of 139 with a BUN of 13 and a creatinine of 0.8. The patient is using his BiPAP overnight and he is currently at the pressure of 10/5 cm of water and FiO2 of 30%. 11/16/2021 Patient is seen and evaluated in room at bedside; it was extubated on 11/14/2021 and has been transferred to medical floor; patient has had a few episodes of significant nosebleed Vital signs are reviewed and stable with temperature of 98.8, pulse 86, respirations 17 and blood pressure 151/75. O2 saturation of 96% Patient is currently on subcu Lovenox bridge to Coumadin; remains on home dose of Coumadin with an INR of 1.1; we will plan to hold off on Lovenox and consult ENT for further evaluation; we will monitor H&H closely patient with left diabetic foot ulcer with evidence of any cellulitis recommend local wound care. local wound care to the left foot plantar wound with Aquacel silver dressing change every 48 hour. patient antibiotic has been switched over to oral Augmentin to continue and to monitor clinical course closely 11/17/2021 Patient evaluated today sitting up in the chair. No acute events overnight. Labs today showing a sodium of 135, potassium 4.7, glucose in the 300s has been started on scheduled insulin today. His alk phos is slightly elevated at 157. He has been transitioned to oral Augmentin. Patient reports dysphagia yesterday states between dinner and snack he had difficulty swallowing and feels like he had an anxiety attack. He does have history of espohageal dilation and his most recent in may of this year. Speech was consulted for evaluation. Continues on coumadin with lovenox bridge. Plan for discharge tomorrow after speech therapy evaluation. Review of Systems Constitutional: Denied any fatigue denied any fever. Cardio vascular: denied any chest pain, palpitations Gastrointestinal: denied any nausea, vomiting, diarrhea Pulmonary: No shortness of breath, No cough. Neurologic denied any new focal deficits. All inpatient medications were reviewed and appropriate changes in these medications as dictated in the interval history and assessment and plan. PHYSICAL EXAMINATION: GENERAL: The patient is alert and oriented x3, not in any acute distress. Well developed, well nourished. HEENT: Pupils are round and equally reacting to light. EOMI. No scleral icterus. No conjunctival pallor. Normocephalic, atraumatic. No pharyngeal erythema. No thyromegaly. CARDIOVASCULAR: S1 and S2 present. No murmurs, rubs, or gallops. PULMONARY: Chest is clear to auscultation, no wheezing or crackles. Lungs are diminished. ABDOMEN: Soft, nontender, nondistended, normoactive bowel sounds. No palpable organomegaly. MUSCULOSKELETAL: No joint swelling or deformity. EXTREMITIES: No cyanosis, clubbing, or pedal edema. Charcot foot. Peripheral edema. NEUROLOGICAL: Gross neurological examination did not reveal any focal deficits. SKIN: No rashes. Chronic wound bottom of left foot. Assessment and plan: -Bilateral pneumonia, possible aspiration causing hypoxia: Patient has been extubated. Bronchoscopy with lavage on November [address] Veras. Cultures showing panda. Antibiotics have been transitioned to oral augmentin. Continues on 2L nasal cannula. -Acute hypoxic respiratory failure secondary to pneumonia, : Extubated now on 2L nasal cannula Intubated November 10, extubated November 13 -History of esophageal dilation and dysphagia Patient is pending speech therapy consultation may need MBS -Chronic left plantar diabetic wound Wound care per ID: Aquacel silver dressing change every 48 hours Follow up with Dr Coleman outpatient as usual -Bilateral foot Charcot foot from diabetes -Morbid obesity, BMI 46.8 Weight loss measures and follow with PCP -Diabetes mellitus type 2, chronically on insulin uncontrolled with hyperglycemia : Blood sugar now in the 150's Continues off insulin gtt on levemir 50 units HS, will add scheduled insulin in addition to sliding scale -GERD On Pepcid -Diabetic peripheral neuropathy On Lyrica -Hyperlipidemia Lipitor -Hypotensive and septic shock: Slow to respond Patient has been weaned of norepinephrine, blood pressure now in the 150s systolic. -Chronic pain syndrome. Morphine pain pump, patient can resume home pain medication -Primary osteoarthritis Pain medications as needed -Obstructive sleep apnea Uses CPAP -factor V Leyden mutation On Coumadin. 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 Continue oral antibiotics. Plan for DC home tomorrow. Insulin has been adjusted. The impression and plan of care has been dictated by Amparo Caballero, Nurse Practitioner as directed. Dr. Aye MD I have performed a history and physical examination and medical decision making of this patient, discussed the same with the dictator, and agree with the dictators assessment and plan as written, documented as a scribe. Based on total visit time, I have performed more than 50% of this visit. Objective - Vital Signs Vital signs: Vital Signs Temp 98.3 F 11/17/21 08:06 Pulse 80 11/17/21 08:26 Resp 18 11/17/21 08:06 BP 122/75 11/17/21 08:06 Pulse Ox 96 11/17/21 08:15 FiO2 30 11/15/21 04:05 Intake & Output 11/16/21 11/17/21 11/17/21 18:59 06:59 18:59 Output Total 900 Balance -900 Output: Urine 900 Other: Voiding Method Toilet Urinal ABP, PAP, CO, CI - Last Documented Arterial Blood Pressure 139/60 - Labs CBC & Chem 7: 11/16/21 15:21 11/17/21 06:12 Labs: Abnormal Lab Results - Last 24 Hours (Table) 11/16/21 11/16/21 11/16/21 Range/Units 11:33 17:03 19:16 PT (9.0-12.0) sec INR (<1.2) POC Glucose (mg/dL) 446 H 370 H 379 H (70-110) mg/dL 11/17/21 11/17/21 11/17/21 Range/Units 02:43 06:12 07:01 PT 12.7 H (9.0-12.0) sec INR 1.2 H (<1.2) POC Glucose (mg/dL) 343 H 305 H (70-110) mg/dL Microbiology - Last 24 Hours (Table) 11/10/21 06:45 Blood Culture - Final Blood No Growth after 144 hours 11/10/21 06:45 Blood Culture - Final Blood No Growth after 144 hours Assessment and Plan Time with Patient: Less than 30
[2021-11-17 16:35] LABS: Glucose,Whole Blood 359 mg/dL (70-110)
[2021-11-17] MEDS ORDERED: WARFARIN 3 MG TAB PO ONE (18:00)
[2021-11-17 20:30] LABS: Glucose,Whole Blood 400 mg/dL (70-110)
[2021-11-17] MEDS: ALPRAZolam 0.25 MG TAB PO PRN ×2 (20:59→22:44)
[2021-11-17] MEDS: INSULIN DETEMIR (LEVEMIR) 100 UNIT/ML SYR SQ SCH (21:39)
[2021-11-17] MEDS: ATORVASTATIN 10 MG TAB PO SCH (21:40)
[2021-11-17] MEDS: LATANOPROST 0.005% OPHTH DROPS 2.5 ML BTL BOTH EYES SCH (21:41)
[2021-11-18 02:40] LABS: Glucose,Whole Blood 358 mg/dL (70-110)
[2021-11-18 07:22] LABS: Glucose,Whole Blood 349 mg/dL (70-110)
[2021-11-18 07:28] LABS: INR 1.6 (<1.2); Prothrombin Time 16.1 sec (9.0-12.0)
[2021-11-18] MEDS: FUROSEMIDE 40 MG TAB PO SCH (07:59)
[2021-11-18] MEDS: AMOXIC-POT CLAV 875-125MG 1 EACH TAB PO SCH (07:59)
[2021-11-18] MEDS: PREGABALIN 100 MG CAP PO SCH (07:59)
[2021-11-18] MEDS: INSULIN ASPART (NovoLOG) 100 UNIT/ML VIAL SQ SCH ×4 (08:01→17:46)
[2021-11-18 08:07] VITALS: TEMP 97.8
[2021-11-18] MEDS: IPRATROPIUM-ALBUTEROL 3 ML NEB INHALATION SCH ×3 (08:15→16:39)
[2021-11-18] MEDS: PANTOPRAZOLE 40 MG/10 ML VIAL IV SCH (08:47)
[2021-11-18 10:48] LABS: Basophils # (A) 0.1 k/uL (0-0.2); Basophils % (A) 1 %; Eosinophils # (A) 0.5 k/uL (0-0.7); Eosinophils % (A) 9 %; HCT 39.2 % (39.0-53.0); HGB 12.6 gm/dL (13.0-17.5); Lymphocytes # (A) 1.1 k/uL (1.0-4.8); Lymphocytes % (A) 17 %; MCH 29.2 pg (25.0-35.0); MCHC 32.2 g/dL (31.0-37.0); MCV 90.5 fL (80.0-100.0); Mean Platelet Volume 9.9; Monocytes # (A) 0.4 k/uL (0-1.0); Monocytes % (A) 6 %; Neutrophils % (A) 65 %; Platelet Count 220 k/uL (150-450); RBC 4.34 m/uL (4.30-5.90); RDW 15.6 % (11.5-15.5); WBC 6.2 k/uL (3.8-10.6)
[2021-11-18 11:30] LABS: African American GFR (CKD) 100.6 (60.0-200.0); Anion Gap 10.3 mmol/L (10.00-18.00); BUN/Creat Ratio 21.2 Ratio (12.00-20.00); Blood Urea Nitrogen 21.2 mg/dL (9.0-27.0); Carbon Dioxide 26.7 mmol/L (20.0-27.5); Non-African American GFR(CKD) 86.8 (60.0-200.0); Potassium 4.5 mmol/L (3.5-5.5)
[2021-11-18 11:53] LABS: Glucose,Whole Blood 266 mg/dL (70-110)
[2021-11-18] MEDS ORDERED: INSULIN ASPART (NovoLOG) 100 UNIT/ML VIAL SQ SCH ×2 (12:30→17:30)
--- NOTE | 2021-11-18 12:32 | P.PN ---
Subjective Progress Note Date: 11/18/21 Principal diagnosis: Altered mental status, dyspnea This is a 51-year-old male patient came into the emergency department because of chest pain. Note that the patient was in [facility] for chest pain approximately week ago and the patient was given a cardiac evaluation which included a cardiac stress and that came back abnormal and following that the patient was given a cardiac catheterization that showed nonocclusive disease and no intervention was done. Yesterday, the patient came in to the emergency department as the patient was complaining of increased shortness of breath and chest pain. His chest x-ray showed some cardiomegaly and increased bilateral interstitial pulmonary infiltrates which also raises the concern for an underlying pneumonia. While in the emergency, the patient started having episodes of fever and he became more obtunded and short of breath. At that point, the patient was started on BiPAP for respiratory support. The patient was started on a BiPAP at a pressure of 14/5 cm water and FiO2 of 40%. The pH was at 7.17 with a pCO2 of 64 and pO2 of 83 and this was not an FiO2 of 50%. At a time of my arrival, the patient's breathing was still labored and the patient was quite lethargic and obtunded. He was able to generate an adequate tidal volume of 400 mL. Nevertheless, the patient was still having shortness of breath and her breathing was labored with a high minute ventilation and a high respiratory rate. The patient was already given a total of 2 L of IV fluid and the patient was given a combination of Rocephin and Zithromax covering for a pneumonia. The workup that has been done showed a white cell count of 23 with a hemoglobin of 13.7 and a platelet count of 219. Normal coagulation profile. Lactic acid level was at 4.1. Blood sugars were elevated at around 370. UA showed +2 glucose, +1 protein and +9 white cells. The coagulation profile was within normal limits. COVID 19 by PCR came back also negative. After being transferred to the intensive care unit, the patient was monitored very closely and subsequently was decided to LAD and intubated the patient put him on a mechanical ventilator. Note that the patient had a triple lumen catheter established in the emergency department. The patient was also started on low- dose norepinephrine running at 0.05 mg/kg per minute. He was started on bicarb infusion. Noted the patient is a chronic CO2 retainer patient has a relatively elevated serum bicarbonate level at baseline. On today's evaluation of 11/11/2021, the patient is being seen for a follow-up. The patient remains intubated on mechanical ventilator. On today's evaluation, the patient remains on a propofol which is running at 50 mcg/kg per minute. The patient is on a mechanical ventilator on assist control mode at the rate of 18 without volume of 400 and FiO2 of 50% with a PEEP of 5. The blood gases showed a pH of 7.38 with a pCO2 of 53 and pO2 of 11. The peak airway pressure is 29. His pro-calcitonin level is at 5.3 supporting the possibility of underlying bacterial infection and same time the patient was having episodes of fever with a T-max of 101.4F. Note that the patient's overall acid base status is improved as the patient was also being given bicarb infusion rate of 100 mL an hour. The blood gases from today shows improvement with a pH of 7.38 And a serum bicarbonate is currently at 32 which is very close to the patient's baseline. The patient has been adequately resuscitated IV fluids. He remains on norepinephrine infusion running at 0.1 g respiratory per minute. Urine output is adequate. The patient had an echocardiogram that showed a preserved L V function with an ejection fraction of 65%. The patient remains on insulin drip at 7.5 units an hour and the patient is also on IV heparin. On today's evaluation, the white cell count of 21 with a hemoglobin 15.7. Serum bicarb is at 32 with a sodium level of 139 and a BUN of 38 a CAT scan of 1.5. No other significant events overnight. Antibiotic coverage has been broadened to include a combination of Zosyn, Levaquin and vancomycin. Note that the patient's cultures are all negative thus far. Blood sugars under better control for now. 11/12/2021, the patient is being seen for a follow-up. The patient remains intubated on a mechanical ventilator for bilateral pneumonia and sepsis. This morning, the patient remains on propofol which is running at 40 mcg/kg per minute. The patient has been adequately sedated at this point in time and the patient is full asynchronous with a mechanical ventilator. The patient remains on a mechanical ventilator and an assist-control mode at the rate of 18, tidal volume of 400, FiO2 of 50% with a PEEP of 5. Current oxygen saturations around 96%. The blood gases from today is showing a pH of 7.38 with a pCO2 of 55 and pO2 of 84. The patient underwent a bronchoscopy yesterday. The bronchioloalveolar lavage from the left lung was collected and the cultures are still pending for now. Meanwhile, the patient is covered with triple antibiotic coverage and he is on a combination of Zosyn, vancomycin and Levaquin. He is afebrile for now. He is having a low-grade fever however with a T-max of 99.6 overnight. He is on pressors and 0 was receiving pressors at low-dose levothyroid at 0.05 mcg/kg per minute and norepinephrine infusion was discontinued this morning. He remains in normal saline at the rate of 75 mL's an hour. He is on insulin drip at 6 units an hour for blood sugar control. IV heparin has been discontinued. The patient is currently on Lovenox at a dose of 120 mg every 12 hours. The current white cell count 11.6 with a hemoglobin of 11.1 and a platelet count of 123. BUN is at 20 with a creatinine of 1.0. Sodium is at 137 Naren glucose at 177, calcium is at 7.7 and a phosphorus is 2.1. Pro-calcitonin level is gradually improving. It was as high as 5.3 currently is down to 2.3. Meanwhile, the patient's chest x-ray from today is showing bilateral pulmonary infiltrates which is essentially unchanged compared to yesterday. All of the lites are in good location including the right IJ triple-lumen catheter and the orogastric and orotracheal tube. The patient is receiving enteral feeding with vital HF at the rate of 30 mL an hour which is currently at goal. 11/13/2021, patient is being seen for a follow-up. The patient remains intubated on a mechanical ventilator and the patient sedated with propofol. The propofol is running at 30 mcg/kg per minute. The patient is easily arousable while of the propofol. Noted the patient has chronic back pain and the patient may need some pain control once taken off the sedation. In any rate, the patient for the time being is still on the mechanical ventilator. He remains on assist control mode at the rate of 18, tidal volume of 400, FiO2 of 50% with a PEEP of 5. Chest x-ray still showing unchanged bilateral pulmonary infiltrates. Nevertheless, the bronchoscopy and the bronchioloalveolar lavage was done and the cultures are still negative and that showed only some yeast. No bacterial growth was noted and the patient is on the same antibiotic coverage. The blood gases showed a pH of 7.34 episodes of 56 and pO2 of 128. The peak and static pressures are nonelevated. The pro-calcitonin level A LEVEL IS IMPROVING AND STARTED ON A 2.3. THE WHITE CELL COUNT IS ALSO DOWN TO 5.3. HEMOGLOBIN 11.3. THE PATIENT IS OFF PRESSORS SINCE 4 AM THIS MORNING. IV FLUIDS IN THE FORM OF NORMAL SALINE AT THE RATE OF 75 ML AN HOUR. OVERALL FLUID BALANCE IS +2.8 L. THE PATIENT IS RECEIVING VITAl AF for enteral feeding and nutritional support. 11/14/2021, the patient is extubated the patient is currently on 2 L of oxygen by nasal cannula. The patient is calm and comfortable. The patient denies having a specific complaints. He is covered on some thick yellowish sputum that needs to be further cultures again. Note that the patient had a bronchoscopy and the bronchioloalveolar lavage and the microbial cultures were positive for Sandra. Nevertheless, I clearly think that the patient does not have any underlying fungal infection and the patient a bacterial infection with septic shock and elevated pro-calcitonin level which subsequently dropped. The patient is currently afebrile. The patient is on a combination of Zosyn and Levaquin. The patient was taken off the vancomycin. Meanwhile, the patient's white cell count is dropped down to 4.7 with a hemoglobin of 10.5 and a platelet counts are stable at 111. The BUN is at 11 with a creatinine of 0.7 and the sodium level is at 13. The patient is currently on Lovenox 120 mg subcu every 12 hours regarding his previous history of hypercoagulable state. This will be transitioned gradually to warfarin. He is awake and alert. He is tolerating his diet. He needs to bring in his own AVAPS machine from home to utilize overnight. 11/15/2021, the patient remains extubated. This morning, the patient's, comfortable on 2 L about 2 by nasal cannula. Doing well. No specific complaints. Using incentive spirometer. Remains on examination of Zosyn and Levaquin for now as broad-spectrum antibiotic regarding his underlying pneumonia which resulted respiratory failure. The patient is hemodynamically stable. He is communicating. No focal neurological deficit. He remains on Lovenox 120 mg subcu every 12 hours and the patient is also being adequately coagulated with warfarin. He was given a 10 mg dose of warfarin yesterday and the PT/INR remains subtherapeutic. He is on Levemir insulin 50 units along with a sliding scale coverage. No fever. No chills. No altered mentation. Blood work from today shows a white cell count of 6.8 with hemoglobin of 11.7 and a sodium level of 139 with a BUN of 13 and a creatinine of 0.8. The patient is using his BiPAP overnight and he is currently at the pressure of 10/5 cm of water and FiO2 of 30%. 11/15/2021, patient is doing well and has no specific complaints. Is extubated. He is currently on a medical floor and was transferred out of the intensive care unit yesterday. He is doing "orally and he is also on DuoNeb nebulized treatments around the clock. He is also to coagulated with warfarin and the patient is being bridged with Lovenox. Was able to bring in his Trilogy ventilator from home to be a to the hospital. The patient was being given on BiPAP urine output the pressure of 10/5 cm of water. He is ambulating. He is using incentive spirometer. The white cell count from yesterday is at 6.8. INR from today is at 1.1. The patient remains subtherapeutic. Tolerating his diet. On 11/17/2021 patient seen in follow-up on medical surgical floor. He is sitting up in the recliner, breathing comfortably, is currently on 2 L of oxygen pulse ox is 96%. Patient has his Trilogy ventilator from home which he states he wore last night. No worsening dyspnea on no chest pain, no worsening cough or congestion. No hemoptysis. His last chest x-ray from 11/14/2021 showed improvement in patient's fine status and aeration. Patient's antibiotics have been converted to oral Augmentin, patient remains on nebulized bronchodilators, and steroids have been discontinued. His BAL cultures showed Sandra glabrata and Sandra albicans. Vital signs have been stable, his been afebrile. Neurologically is awake and alert, answering questions appropriately. He is on 0.9 ns 20 ML per hour. Is tolerating oral intake. On 11/18/2021 patient seen in follow-up on medical surgical floor. He sitting up in the recliner, in no acute distress, 2 L of oxygen his pulse ox of 96%, he has been wearing his Trilogy ventilator at night. He is breathing comfortably, his vitals have been stable. He remains on oral diuretics with Lasix 40 mg twice daily, still has quite a bit of swelling in his bilateral lower ex tremities, which seems to be somewhat chronic for him. He is in negative net fluid balance, making good urine. Last chest x-ray showed improvement in patient's fluid status and aeration. BAL culture showed Sandra species. IV antibiotics have been converted to oral Augmentin, patient continues on nebulized bronchodilators. Remains on Coumadin, patient received 12 mg last night, today's INR is 1.6. No acute events overnight, patient is awaiting speech evaluation and possible discharge home this afternoon Objective - Vital Signs Vital signs: Vital Signs Temp 97.8 F 11/18/21 08:06 Pulse 80 11/18/21 11:59 Resp 16 11/18/21 08:27 BP 130/85 11/18/21 08:06 Pulse Ox 96 11/18/21 08:18 FiO2 30 11/15/21 04:05 Intake & Output 11/17/21 11/18/21 11/18/21 18:59 06:59 18:59 Intake Total 590 Output Total 1300 Balance -710 Weight 132.4 kg Intake: Oral 590 Output: Urine 1300 Other: Voiding Method Toilet Urinal # Voids 1 3 # Bowel Movements 1 ABP, PAP, CO, CI - Last Documented Arterial Blood Pressure 139/60 - Exam GENERAL EXAM: Alert, pleasant, 51-year-old white male at 2 L of oxygen resting in a chair comfortable in no apparent distress. HEAD: Normocephalic/atraumatic. EYES: Normal reaction of pupils, equal size. Conjunctiva pink, sclera white. NOSE: Clear with pink turbinates. THROAT: No erythema or exudates. NECK: No masses, no JVD, no thyroid enlargement, no adenopathy. CHEST: No chest wall deformity. Symmetrical expansion. LUNGS: Equal air entry with no crackles, wheeze, rhonchi or dullness. CVS: Regular rate and rhythm, normal S1 and S2, no gallops, no murmurs, no rubs ABDOMEN: Soft, nontender. No hepatosplenomegaly, normal bowel sounds, no guarding or rigidity. EXTREMITIES: No clubbing, no edema, no cyanosis, 2+ pulses and upper and lower extremities. MUSCULOSKELETAL: Muscle strength and tone normal. SPINE: No scoliosis or deformity SKIN: No rashes CENTRAL NERVOUS SYSTEM: Alert and oriented -3. No focal deficits, tone is normal in all 4 extremities. PSYCHIATRIC: Alert and oriented -3. Appropriate affect. Intact judgment and insight. - Labs CBC & Chem 7: 11/18/21 06:56 11/18/21 06:56 Labs: Abnormal Lab Results - Last 24 Hours (Table) 11/17/21 11/17/21 11/18/21 Range/Units 16:33 20:28 02:37 Hgb (13.0-17.5) gm/dL RDW (11.5-15.5) % PT (9.0-12.0) sec INR (<1.2) BUN/Creatinine Ratio (12.00-20.00) Ratio Glucose (70-110) mg/dL POC Glucose (mg/dL) 359 H 400 H 358 H (70-110) mg/dL 11/18/21 11/18/21 11/18/21 Range/Units 06:56 06:56 06:56 Hgb 12.6 L (13.0-17.5) gm/dL RDW 15.6 H (11.5-15.5) % PT 16.1 H (9.0-12.0) sec INR 1.6 H (<1.2) BUN/Creatinine Ratio 21.20 H (12.00-20.00) Ratio Glucose 325 H (70-110) mg/dL POC Glucose (mg/dL) (70-110) mg/dL 11/18/21 11/18/21 Range/Units 07:21 11:52 Hgb (13.0-17.5) gm/dL RDW (11.5-15.5) % PT (9.0-12.0) sec INR (<1.2) BUN/Creatinine Ratio (12.00-20.00) Ratio Glucose (70-110) mg/dL POC Glucose (mg/dL) 349 H 266 H (70-110) mg/dL Assessment and Plan Plan: Assessment: Acute hypoxic/hypercapneic respiratory failure, the patient was extubated yesterday on 11/13/2021 and currently is on 2 L oxygen by nasal cannula. Follow-up chest x-ray shows improvement in aeration of the lungs. The patient had a bronchoscopy and the microbial cultures of been negative. Highly suspect bacterial infection/aspiration and the patient is currently on oral Augmentin Septic shock, improving and the patient was taken off sedation today and he was able to follow commands appropriately. He was also taken off pressors. Septic shock has recovered acute latic acidosis, improved and LA is down to 1.3 NARENDRA, recovered, kidney function is normalized CAD and patient is post acute [facility]MI in [facility], currently under investigation, tmax 99.6 Morbid obesity, BMI 46.8-Weight loss measures and follow with PCP Diabetes mellitus type 2, on Levemir insulin 50 units daily along with a sliding scale coverage GERD Diabetic peripheral neuropathy Hyperlipidemia Essential hypertension Chronic pain syndrome. 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 Veras in the office in one week I have personally seen and examined the patient, performed the documentation and the assessment and plan as written. Number of minutes spent on the visit: [10] Time with Patient: Less than 30
--- NOTE | 2021-11-18 12:47 | P.PN ---
Subjective Progress Note Date: 11/17/21 Principal diagnosis: Left diabetic foot ulcer/pneumonia Patient is a 51 year old male with past medical history significant for left diabetic foot ulcer present at the hospital with acute respiratory failure requiring intubation concern for pneumonia status post bronchoscopy completed 11/11/2021. The patient was extubated 11/13/2021, patient has been moved out of the ICU 11/15/2021 On today's evaluation that is 11/17/2021, the patient denies any fever or any chills, the patient is breathing comfortably on nasal cannula oxygen, the patient denies denies chest pain , the patient did have occasional dry cough, the patient denies abdominal pain no diarrhea, the patient denies pain to the left foot area Objective - Vital Signs Vital signs: Vital Signs Temp 98.4 F 11/17/21 14:15 Pulse 74 11/17/21 15:41 Resp 16 11/17/21 14:15 BP 109/68 11/17/21 14:15 Pulse Ox 97 11/17/21 14:15 FiO2 30 11/15/21 04:05 Intake & Output 11/16/21 11/17/21 11/17/21 18:59 06:59 18:59 Output Total 900 Balance -900 Output: Urine 900 Other: Voiding Method Toilet Urinal # Voids 1 # Bowel Movements 1 ABP, PAP, CO, CI - Last Documented Arterial Blood Pressure 139/60 - Exam GENERAL DESCRIPTION: Middle-aged male up in the bed in no distress RESPIRATORY SYSTEM: Unlabored breathing , decreased breath sounds at bases HEART: S1 S2 regular rate and rhythm , ABDOMEN: Soft , no tenderness EXTREMITIES: Left foot wound is dressed no drainage on the dressing - Labs CBC & Chem 7: 11/18/21 06:56 11/18/21 06:56 Labs: Abnormal Lab Results - Last 24 Hours (Table) 11/16/21 11/16/21 11/17/21 Range/Units 17:03 19:16 02:43 PT (9.0-12.0) sec INR (<1.2) Sodium (137-145) mmol/L BUN (9-20) mg/dL Glucose (74-99) mg/dL POC Glucose (mg/dL) 370 H 379 H 343 H (70-110) mg/dL Alkaline Phosphatase (38-126) U/L Albumin (3.5-5.0) g/dL 11/17/21 11/17/21 11/17/21 Range/Units 06:12 06:12 07:01 PT 12.7 H (9.0-12.0) sec INR 1.2 H (<1.2) Sodium 135 L (137-145) mmol/L BUN 21 H (9-20) mg/dL Glucose 311 H (74-99) mg/dL POC Glucose (mg/dL) 305 H (70-110) mg/dL Alkaline Phosphatase 157 H (38-126) U/L Albumin 3.4 L (3.5-5.0) g/dL 11/17/21 Range/Units 11:50 PT (9.0-12.0) sec INR (<1.2) Sodium (137-145) mmol/L BUN (9-20) mg/dL Glucose (74-99) mg/dL POC Glucose (mg/dL) 326 H (70-110) mg/dL Alkaline Phosphatase (38-126) U/L Albumin (3.5-5.0) g/dL Assessment and Plan (1) Community acquired pneumonia Current Visit: Yes Status: Acute Code(s): J18.9 - PNEUMONIA, UNSPECIFIED ORGANISM SNOMED Code(s): 746725579 (2) Diabetic foot ulcer Current Visit: No Status: Acute Code(s): E11.621 - TYPE 2 DIABETES MELLITUS WITH FOOT ULCER; L97.509 - NON-PRESSURE CHRONIC ULCER OTH PRT UNSP FOOT W UNSP SEVERITY SNOMED Code(s): 867252487 Plan: 1patient presented to hospital with sepsis and respiratory have fever elevated white count with predominant respiratory symptoms concerning for likely pneumonia in this patient who has been in of the hospital only to cover for resistant gram-positive as well as gram-negative and a question of aspiration etiology in this patient was status post bronchoscopy and lavage and cultures are growing Sandra which is more likely colonizer. 2patient with left diabetic foot ulcer with evidence of any cellulitis recommend local wound care. local wound care to the left foot plantar wound with Aquacel silver dressing change every 48 hour and keep the area off the pressure. 3patient has shown overall clinical improvement and well continue with oral Augmentin
--- NOTE | 2021-11-18 12:48 | P.PN ---
Subjective Progress Note Date: 11/18/21 Principal diagnosis: Left diabetic foot ulcer/pneumonia Patient is a 51 year old male with past medical history significant for left diabetic foot ulcer present at the hospital with acute respiratory failure requiring intubation concern for pneumonia status post bronchoscopy completed 11/11/2021. The patient was extubated 11/13/2021, patient has been moved out of the ICU 11/15/2021 On today's evaluation that is 11/18/2021, the patient remains to be afebrile, the patient is breathing comfortably on nasal cannula oxygen, the patient denies any chest pain no worsening cough or sputum production abdominal pain has been complaining of some dysphagia but no vomiting or diarrhea Objective - Vital Signs Vital signs: Vital Signs Temp 97.8 F 11/18/21 08:06 Pulse 80 11/18/21 11:59 Resp 16 11/18/21 08:27 BP 130/85 11/18/21 08:06 Pulse Ox 96 11/18/21 08:18 FiO2 30 11/15/21 04:05 Intake & Output 11/17/21 11/18/21 11/18/21 18:59 06:59 18:59 Intake Total 590 Output Total 1300 Balance -710 Weight 132.4 kg Intake: Oral 590 Output: Urine 1300 Other: Voiding Method Toilet Urinal # Voids 1 3 # Bowel Movements 1 ABP, PAP, CO, CI - Last Documented Arterial Blood Pressure 139/60 - Exam GENERAL DESCRIPTION: Middle-aged male up in the bed in no distress RESPIRATORY SYSTEM: Unlabored breathing , decreased breath sounds at bases HEART: S1 S2 regular rate and rhythm , ABDOMEN: Soft , no tenderness EXTREMITIES: Left foot wound is dressed no drainage on the dressing - Labs CBC & Chem 7: 11/18/21 06:56 11/18/21 06:56 Labs: Abnormal Lab Results - Last 24 Hours (Table) 11/17/21 11/17/21 11/18/21 Range/Units 16:33 20:28 02:37 Hgb (13.0-17.5) gm/dL RDW (11.5-15.5) % PT (9.0-12.0) sec INR (<1.2) BUN/Creatinine Ratio (12.00-20.00) Ratio Glucose (70-110) mg/dL POC Glucose (mg/dL) 359 H 400 H 358 H (70-110) mg/dL 11/18/21 11/18/21 11/18/21 Range/Units 06:56 06:56 06:56 Hgb 12.6 L (13.0-17.5) gm/dL RDW 15.6 H (11.5-15.5) % PT 16.1 H (9.0-12.0) sec INR 1.6 H (<1.2) BUN/Creatinine Ratio 21.20 H (12.00-20.00) Ratio Glucose 325 H (70-110) mg/dL POC Glucose (mg/dL) (70-110) mg/dL 11/18/21 11/18/21 Range/Units 07:21 11:52 Hgb (13.0-17.5) gm/dL RDW (11.5-15.5) % PT (9.0-12.0) sec INR (<1.2) BUN/Creatinine Ratio (12.00-20.00) Ratio Glucose (70-110) mg/dL POC Glucose (mg/dL) 349 H 266 H (70-110) mg/dL Assessment and Plan (1) Community acquired pneumonia Current Visit: Yes Status: Acute Code(s): J18.9 - PNEUMONIA, UNSPECIFIED ORGANISM SNOMED Code(s): 798417448 (2) Diabetic foot ulcer Current Visit: No Status: Acute Code(s): E11.621 - TYPE 2 DIABETES MELLITUS WITH FOOT ULCER; L97.509 - NON-PRESSURE CHRONIC ULCER OTH PRT UNSP FOOT W UNSP SEVERITY SNOMED Code(s): 548667964 Plan: 1patient presented to hospital with sepsis and respiratory have fever elevated white count with predominant respiratory symptoms concerning for likely pneumonia in this patient who has been in of the hospital only to cover for resistant gram-positive as well as gram-negative and a question of aspiration etiology in this patient was status post bronchoscopy and lavage and cultures are growing Sandra which is more likely colonizer. 2patient with left diabetic foot ulcer with evidence of any cellulitis recommend local wound care. local wound care to the left foot plantar wound with Aquacel silver dressing change every 48 hour and keep the area off the pressure. 3patient has clinically improved as far as pneumonia is concerned and is on oral Augmentin continue for another 5 days on discharge and discontinue the central line to decrease risk of line related infection Time with Patient: Less than 30
[2021-11-18 13:26] VITALS: BMI 47.1
[2021-11-18 14:22] VITALS: BP 131/77; RESP 18
[2021-11-18] MEDS ORDERED: INSULIN ASPART (NovoLOG) 100 UNIT/ML VIAL SQ ONE (15:03)
[2021-11-18 16:35] LABS: Glucose,Whole Blood 291 mg/dL (70-110)
[2021-11-18 16:52] VITALS: PULSE 85
[2021-11-18] MEDS ORDERED: WARFARIN 3 MG TAB PO ONE (18:00)
[2021-11-18] MEDS ORDERED: INSULIN DETEMIR (LEVEMIR) 100 UNIT/ML SYR SQ SCH (21:00)
[2021-11-19] MEDS ORDERED: INSULIN ASPART (NovoLOG) 100 UNIT/ML VIAL SQ SCH ×2 (07:30→12:30)
--- NOTE | 2021-11-19 15:42 | P.DS ---
Providers Date of admission: 11/10/21 04:56 Attending physician: Heri Alvarez Consults: 11/10/21 04:56 Consult Physician Routine Consulting Provider: Rosy Veras Consult Reason/Comments: hypoxia Do you want consulting provider notified?: Yes Consult Physician Routine Consulting Provider: Leigh Mcclendon Consult Reason/Comments: CHF? Do you want consulting provider notified?: Yes 11/10/21 19:29 Consult Physician Routine Consulting Provider: Kalina Lang Consult Reason/Comments: wound care/abx Do you want consulting provider notified?: Yes 11/13/21 07:32 Consult Physician Routine Consulting Provider: Tamir Garnett Consult Reason/Comments: low platelet count Do you want consulting provider notified?: Yes Primary care physician: Dl Waggoner [facility] Course: Diagnosis Bilateral pneumonia possible aspiration causing hypoxia requiring intubation with subsequent extubation Acute hypoxic respiratory failure secondary to pneumonia History of esophageal dilation and dysphagia Chronic left plantar diabetic wound is Dr. Coleman outpatient Bilateral foot Charcot foot from diabetes Morbid obesity BMI 46.8 Diabetes mellitus type 2 on insulin GERD Diabetic peripheral neuropathy Hyperlipidemia Hypotensive and septic shock Chronic pain syndrome on morphine pump Primary osteoarthritis Obstructive sleep apnea and uses CPAP Factor V Leiden mutation Hepatic steatosis nonalcoholic fatty liver disease Chronic DVT in left leg Herniated disc lumbar spine Partial blindness left eye Diabetic gastroparesis Full Code Discharge disposition Patient is stable for discharge and guarded prognosis. He was been weaned off oxygen and will not require oxygen on discharge. He will continue with his home CPAP at night. Patient is been cleared by consultations including pulmonary slipman and infectious disease services. Patient has a follow-up with his GI specialist on Wednesday regarding dysphasia. 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 Hospital course This is a pleasant 51-year-old male , follows with Dr. Waggoner. patient has a right Charcot foot and also found to have osteomyelitis in October 2020. Chronic stable medical conditions include diabetes, GERD, peripheral neuropathy, hypertension, hyperlipidemia, factor V Leiden mutation on anticoagulation, diabetic gastroparesis, decreased vision in the left eye, depression. Patient presented to ER with chest pain and shortness of breath. About a week ago patient was admitted to [facility] with chest pain, had a cardiac stress test that was abnormal and a cardiac cath that showed nonocclusive disease and no intervention was done. Labs on admission showing white count 12.9, hgb 13.7, sodium 133, potassium 5.3, chlrodie 103, co2 20, BUN 38, creatinine 1.98, blood glucose 351, magnesium 1.4, lactic acid 3.1, alk phos 140, LDH 770, CRP 1.6, proBNP 176, covid negative. He is admitted to the hospital for pneumonia, hypoxia, and respiratory failure. Since presentation to the ER patient became progressively more short of breath. Becoming less responsive. Was put on a BiPAP. Patient being becoming labored. Patient was seen by Dr. Veras from critical care. Patient was lethargic and not able to give much history on admission, he was intubated On November [address] Veras and was monitored in the intensive care unit. He was started on bicarb gtt and empiric antibiotic coverage, insulin gtt, requried levophed, and propofol. He was also started on IV heaprin. 2-D echocardiogram completed showing an EF of 65%, mild left ventricular hypertrophy, mild aortic stenosis, mild tricuspid regurgitation Chest xray shows acute interstitial pneumonia or heart failure. Patient underwent bronchoscopy on November 11 and findings of Significant infectioned se cretion obtained from the left bronchus. Fungal culture showings panda. and Bronch washing show panda species as well. Blood cultures negative. Patient was successfully extubated on 11/13/2021. He was weaned to 2 L nasal cannula. Continues on IV levofloxacin, IV zosyn. Vancomycin was discontinued. Patient received local wound care with aquacel silver to his chronic foot wound on the left and will see Dr Coleman outpatient as usual on Wednesday. He was resumed on home dose of coumadin and IV heparin was discontinued. He was on lovenox bridge and platelet count had dropped significantly. Hematology evaluated the patient and lovenox was discontinued. He was transitioned out of the ICU. He has been transitioned to oral augmentin. Patient reports an episode of dysphagia states between dinner and snack he had difficulty swallowing and feels like he had an anxiety attack. He does have history of espohageal dilation and his most recent in may of this year. Speech was consulted for evaluation who recommends esophagram or GI evaluation for dilation. He will see his GI specialist outpatient and made an appointment. Pulmonary and ID have cleared for discharge. 11/18/2021 Patient evaluated today sitting up in chair. No acute events overnight. He reports no pain, no shortness breath or chest pain. States her breathing has improved. He is not having any cough or sputum production. No nausea vomiting or diarrhea. He is tolerating diet. Blood sugars have been elevated in the 2 to 300s. Patient does report that he takes scheduled insulin 8 units with breakfast, 12 units with lunch and 22 units at dinner was not communicated on admission and this is now reconciled. Labs today showing a white count of 6.2, hemoglobin 12.6, INR 1.6, sodium 135, potassium 4.5, BUN 21.2, creatinine 1.0, glucose 266, calcium 9.0. Vital signs showing temperature 97.8, heart rate 85, blood pressure 131/77, 93% room air. His lungs are diminished, S1-S2 auscultated. Abdomen is soft and nontender. Patient is obese. He is having bowel movements, urinating without difficulty. He does have chronic hyperpigmentation bilateral lower extremities he does have peripheral edema which is chronic in the lower extremities. Alert and oriented 2, focal neurological exam is negative. Discharge plan and recommendations was discussed with patient and his over the phone. He has been cleared by all consultations. Indications include increasing his Lantus to 60 units at bedtime, oral Augmentin for 7 days. Please see medication reconciliation for list of current medications. Thank you for allowing us participate in the care of this patient. Total time taken in discharge planning greater than 35 minutes The impression and plan of care has been dictated by Nurse Luiz Barnard titioner as directed. Dr. Aye MD I have performed a history and physical examination and medical decision making of this patient, discussed the same with the dictator, and agree with the dictators assessment and plan as written, documented as a scribe. Based on total visit time, I have performed more than 50% of this visit. Patient Condition at Discharge: Fair Plan - Discharge Summary Discharge Rx Participant: No New Discharge Prescriptions: New Insulin Glargine,Hum.rec.anlog [Lantus Solostar Pen] 60 units SQ HS #1 each Amoxic-Pot Clav 875-125Mg [Augmentin 875-125] 1 each PO Q12HR 7 Days #14 tab Sodium Chloride 0.65% Nasal [Deep Sea (Saline)] 2 spray NASAL QID PRN ml PRN Reason: Dry Nasal Passages INSULIN ASPART (NovoLOG) [NovoLOG (formulary)] 0 unit SQ ACHS each Continue Simvastatin [Zocor] 20 mg PO HS Latanoprost Ophth [Xalatan 0.005%] 1 drop BOTH EYES HS Loratadine [Claritin] 10 mg PO DAILY metFORMIN HCL [Glucophage] 1,000 mg PO BID Morphine Pain Pump 1 dose INTRATHECA CONTINUOUS Lubiprostone [Amitiza] 24 mcg PO BID Acetaminophen Tab [Tylenol] 650 mg PO Q6HR PRN tab PRN Reason: Mild Pain Or Fever > 100.5 Pregabalin [Lyrica] 200 mg PO BID #6 cap HYDROcodone/APAP 10-325MG [[place] 10-325] 1 tab PO BID #6 tab Ketoconazole 2% Cream [Nizoral 2%] 1 applic TOPICAL DAILY Fluticasone Propionate [Flovent Hfa 220 mcg] 2 puff INHALATION RT-BID Ferrous Sulfate [Iron (65 MG Elemental)] 325 mg PO BID SUMAtriptan succinate [Imitrex] 50 mg PO DAILY PRN PRN Reason: Migraine Headache Furosemide [Lasix] 40 mg PO DAILY lisinopriL [Zestril] 2.5 mg PO DAILY INSULIN LISPRO (HumaLOG) [humaLOG] See Protocol SQ ACHS Warfarin Sodium 10 mg PO HS Omeprazole 20 mg PO BID Isosorbide Mononitrate ER [Imdur] 30 mg PO DAILY Discontinued Insulin Glargine,Hum.rec.anlog [Lantus Solostar Pen] 50 unit SQ HS Potassium Chloride ER [K-Dur 10] 10 meq PO DAILY Discharge Medication List Latanoprost Ophth [Xalatan 0.005%] 1 drop BOTH EYES HS 01/23/14 [History] Simvastatin [Zocor] 20 mg PO HS 01/23/14 [History] Loratadine [Claritin] 10 mg PO DAILY 01/28/16 [History] metFORMIN HCL [Glucophage] 1,000 mg PO BID 01/28/16 [History] Morphine Pain Pump 1 dose INTRATHECA CONTINUOUS 05/05/17 [History] Ferrous Sulfate [Iron (65 MG Elemental)] 325 mg PO BID 10/25/20 [History] Fluticasone Propionate [Flovent Hfa 220 mcg] 2 puff INHALATION RT-BID 10/25/20 [History] Furosemide [Lasix] 40 mg PO DAILY 10/25/20 [History] SUMAtriptan succinate [Imitrex] 50 mg PO DAILY PRN 10/25/20 [History] INSULIN LISPRO (HumaLOG) [humaLOG] See Protocol SQ ACHS 05/15/21 [History] Lubiprostone [Amitiza] 24 mcg PO BID 05/15/21 [History] Warfarin Sodium 10 mg PO HS 05/15/21 [History] lisinopriL [Zestril] 2.5 mg PO DAILY 05/15/21 [History] Acetaminophen Tab [Tylenol] 650 mg PO Q6HR PRN tab 07/04/21 [Rx] HYDROcodone/APAP 10-325MG [[place] 10-325] 1 tab PO BID #6 tab 07/04/21 [Rx] Pregabalin [Lyrica] 200 mg PO BID #6 cap 07/04/21 [Rx] Isosorbide Mononitrate ER [Imdur] 30 mg PO DAILY 11/10/21 [History] Ketoconazole 2% Cream [Nizoral 2%] 1 applic TOPICAL DAILY 11/10/21 [History] Omeprazole 20 mg PO BID 11/10/21 [History] Amoxic-Pot Clav 875-125Mg [Augmentin 875-125] 1 each PO Q12HR 7 Days #14 tab 11/18/21 [Rx] INSULIN ASPART (NovoLOG) [NovoLOG (formulary)] 0 unit SQ ACHS each 11/18/21 [Rx] Insulin Glargine,Hum.rec.anlog [Lantus Solostar Pen] 60 units SQ HS #1 each 11/18/21 [Rx] Sodium Chloride 0.65% Nasal [Deep Sea (Saline)] 2 spray NASAL QID PRN ml 11/18/21 [Rx] Follow up Appointment(s)/Referral(s): Norma Xavier [Other] - 1 Week (Patient has follow up appointment next Wednesday at his GI specialist) Dl Waggoner MD [Primary Care Provider] - 11/25/21 1:00 pm [facility], [NON-STAFF] - 1-2 Days Rosy Veras MD [STAFF PHYSICIAN] - 11/24/21 8:30 am Ambulatory/Diagnostic Orders: Basic Metabolic Panel [LAB.AMB] Time Frame: 2 Days, Location: None Selected Complete Blood Count w/diff [LAB.AMB] Time Frame: 2 Days, Location: None Selected Prothrombin Time INR [LAB.AMB] Time Frame: 1 Day, Location: None Selected Activity/Diet/Wound Care/Special Instructions: Continue on home dose of coumadin Repeat INR in 2 days Recommend to follow up with primary care in 1-2 days Follow up with your GI specialist next Wednesday as scheduled regarding esophageal dilation Home oxygen test prior to discharge Resume home humalog dosing 8 units with breakfast 15 units with lunch 22 units with supper Increase lantus to 60 units at HS Continue to monitor blood sugar ACHS Hold daily potassium supplement until repeat labs. If potassium is lower than 4.0 can resume potassium 10 meq daily dosing. Discharge Disposition: HOME WITH HOME HEALTH SERVICES
--- NOTE | 2021-11-20 21:32 | CDI ---
Documentation Clarification Form Date: 11/20/2021 09:08:21 PM From: Giuliana Lin/Saundra Admit Date: 11/10/2021 04:56:00 AM Patient Name: Jose Lynne Visit Number: [id number] Discharge Date: 11/18/2021 05:50:00 PM ATTENTION: The Clinical Documentation Specialists (CDI) and [facility] Coding Staff appreciate your assistance in clarifying documentation. Please respond to the clarification below the line at the bottom and electronically sign. The CDI & [facility] Coding staff will review the response and follow-up if needed. Please note: Queries are made part of the Legal Health Record. If you have any questions, please contact the author of this message via ITS. Dr. Griffiths Your patient has the documented diagnosis of unspecified per ED. Additional information regarding the [type, acuity] of CHF is requested. History/Risk Factors: 51yo M, AECOPD w CAP, sepsis w shock, CHF, edema, AH/HRF sp vent, DMII multi comps Clinical Indicators: Vitals: BP111/51, heart rate 98, respiratory rate 18, SpO2 94% on 40%BiPAP, temp 99.6F BNP: BNP 176 Echocardiogram Results: Normal left ventricular ejection fraction 65%; Mild LVH; Mildaortic stenosis; mildtricuspid regurgitation; Aortic rootdilation4.0 cm Chest x ray: Chest x-rayshows acuteinterstitial pneumoniaorheart failure. Treatment: anticoagulation per primary team with history offactor V LeidenandDVT Hold Lasix and Lisinopril as the patient ishypotensive Resume statin EchocardiogramandDopplerstudy further recommendations to be based on clinical course In your professional opinion, can you please clarify the [acuity and type] of CHF if known? [ ] Acute Systolic Heart Failure (reduced EF) [ ] Chronic Systolic Heart Failure (reduced EF) [ ] Acute on Chronic Systolic Heart Failure (reduced EF) [ ] Acute Diastolic Heart Failure (preserved EF) [ ] Chronic Diastolic Heart Failure (preserved EF) [ ] Acute on Chronic Diastolic Heart Failure (preserved EF) [ ] Acute Systolic & Diastolic Heart Failure [ ] Chronic Systolic & Diastolic Heart Failure [ ] Acute on Chronic Heart Failure Systolic & Diastolic Heart Failure [ ] Other, please specify [ ] Unable to determine No heart failure and clear is not necessary MTDD
== END 2021-11-18 17:50 | disposition home health service (06) | DRG 871 ==
LOC: EC 00:22 → 3SCARD 04:56 → 2SICU 07:02 → 4SSUR 11-15 12:22
PROVIDERS: ADMIT Hospitalist; ATTEND Hospitalist
PROC: 5A09357 Assistance with Respiratory Ventilation, Less than 24 Consecutive Hours, Continuous Positive Airway Pressure (ICD-10-PCS; principal; 2021-11-10)
PROC: 5A1945Z Respiratory Ventilation, 24-96 Consecutive Hours (ICD-10-PCS; 2021-11-10)
PROC: 03HY32Z Insertion of Monitoring Device into Upper Artery, Percutaneous Approach (ICD-10-PCS; 2021-11-10)
PROC: 4A133B1 Monitoring of Arterial Pressure, Peripheral, Percutaneous Approach (ICD-10-PCS; 2021-11-10)
PROC: 4A133J1 Monitoring of Arterial Pulse, Peripheral, Percutaneous Approach (ICD-10-PCS; 2021-11-10)
PROC: 0BH18EZ Insertion of Endotracheal Airway into Trachea, Via Natural or Artificial Opening Endoscopic (ICD-10-PCS; 2021-11-10)
PROC: 3E033XZ Introduction of Vasopressor into Peripheral Vein, Percutaneous Approach (ICD-10-PCS; 2021-11-10)
PROC: 0B9H8ZX Drainage of Lung Lingula, Via Natural or Artificial Opening Endoscopic, Diagnostic (ICD-10-PCS; 2021-11-11)
PROC: 0B978ZZ Drainage of Left Main Bronchus, Via Natural or Artificial Opening Endoscopic (ICD-10-PCS; 2021-11-11)
DX: A41.9 Sepsis, unspecified organism (principal); B37.1 Pulmonary candidiasis; J96.01 Acute respiratory failure with hypoxia; J96.02 Acute respiratory failure with hypercapnia; J69.0 Pneumonitis due to inhalation of food and vomit; R65.21 Severe sepsis with septic shock; J44.1 Chronic obstructive pulmonary disease with (acute) exacerbation; J44.0 Chronic obstructive pulmonary disease with (acute) lower respiratory infection; E87.2 Acidosis; N17.9 Acute kidney failure, unspecified; J84.9 Interstitial pulmonary disease, unspecified; D68.51 Activated protein C resistance; Z68.42 Body mass index [BMI] 45.0-49.9, adult; I82.502 Chronic embolism and thrombosis of unspecified deep veins of left lower extremity; E11.610 Type 2 diabetes mellitus with diabetic neuropathic arthropathy; D69.6 Thrombocytopenia, unspecified; E11.42 Type 2 diabetes mellitus with diabetic polyneuropathy; K76.0 Fatty (change of) liver, not elsewhere classified; E11.621 Type 2 diabetes mellitus with foot ulcer; E66.01 Morbid (severe) obesity due to excess calories; F32.A Depression, unspecified; I08.2 Rheumatic disorders of both aortic and tricuspid valves; L97.529 Non-pressure chronic ulcer of other part of left foot with unspecified severity; I10 Essential (primary) hypertension; L97.522 Non-pressure chronic ulcer of other part of left foot with fat layer exposed; K21.9 Gastro-esophageal reflux disease without esophagitis; E78.5 Hyperlipidemia, unspecified; G47.33 Obstructive sleep apnea (adult) (pediatric); R53.1 Weakness; G89.4 Chronic pain syndrome; E11.51 Type 2 diabetes mellitus with diabetic peripheral angiopathy without gangrene; E11.628 Type 2 diabetes mellitus with other skin complications; E11.65 Type 2 diabetes mellitus with hyperglycemia; K31.84 Gastroparesis; H54.8 Legal blindness, as defined in USA; I25.10 Atherosclerotic heart disease of native coronary artery without angina pectoris; M19.91 Primary osteoarthritis, unspecified site; M51.26 Other intervertebral disc displacement, lumbar region; K44.9 Diaphragmatic hernia without obstruction or gangrene; R04.0 Epistaxis; L81.9 Disorder of pigmentation, unspecified; F41.9 Anxiety disorder, unspecified; Z20.822 Contact with and (suspected) exposure to COVID-19; Z96.89 Presence of other specified functional implants; Z86.16 Personal history of COVID-19; Z79.899 Other long term (current) drug therapy; Z79.51 Long term (current) use of inhaled steroids; Z79.84 Long term (current) use of oral hypoglycemic drugs; Z79.891 Long term (current) use of opiate analgesic; Z79.4 Long term (current) use of insulin; Z79.01 Long term (current) use of anticoagulants; Z91.048 Other nonmedicinal substance allergy status; Z98.890 Other specified postprocedural states; Z86.19 Personal history of other infectious and parasitic diseases; I25.2 Old myocardial infarction; Z90.89 Acquired absence of other organs; Z80.52 Family history of malignant neoplasm of bladder; Z83.3 Family history of diabetes mellitus; Z82.3 Family history of stroke; Z82.49 Family history of ischemic heart disease and other diseases of the circulatory system; Z87.39 Personal history of other diseases of the musculoskeletal system and connective tissue; Z98.61 Coronary angioplasty status; Z84.89 Family history of other specified conditions
CPT/HCPCS: 36415; 36600; 71045; 80048; 80053; 80202; 81001; 82533; 82805; 83605; 83615; 83735; 83880; 84100; 84132; 84145; 84484; 85025; 85027; 85610; 85730; 86140; 87040; 87070; 87102; 87116; 87205; 87206; 87252; 87449; 87496; 87498; 87502; 87529; 87634; 87635; 87798; 88108; 88305; 93005; 93306; 94002; 94003; 94640; 94660; 94760; 96365; 96366; 96368; 96372; 96375; 99285

== ENCOUNTER → 2021-12-12 | Outpatient (CLI) | payer OTHER ==
[2021-12-12 18:46] LABS: African American GFR (CKD) 113.3 (60.0-200.0); Albumin 3.6 g/dL (3.8-4.9); Albumin/Globulin Ratio 1.3 (1.60-3.17); Anion Gap 12.2 mmol/L (10.00-18.00); BUN/Creat Ratio 12.91 Ratio (12.00-20.00); Blood Urea Nitrogen 11.7 mg/dL (9.0-27.0); Carbon Dioxide 26.7 mmol/L (20.0-27.5); Globulin 2.8 g/dL (1.6-3.3); Non-African American GFR(CKD) 97.8 (60.0-200.0); Potassium 4.1 mmol/L (3.5-5.5); Total Bilirubin 0.3 mg/dL (0.30-1.20); Total Protein 6.4 g/dL (6.2-8.2)
[2021-12-13 04:54] LABS: INR 1.7 (0.90-1.11); Prothrombin Time 18.2 sec (9.9-11.9)
== END | disposition home or self-care (01) ==
LOC: LABWHC1 11:16
PROVIDERS: ATTEND Nurse Practitioner Family
DX: I10 Essential (primary) hypertension (principal); E11.65 Type 2 diabetes mellitus with hyperglycemia; Z79.01 Long term (current) use of anticoagulants
CPT/HCPCS: 36415; 80053; 83036; 85610

== ENCOUNTER 2022-01-04 14:46 | Emergency (ER) | payer OTHER ==
[2022-01-04] MEDS ORDERED: ACETAMINOPHEN TAB 325 MG TAB PO STA (17:50)
--- NOTE | 2022-01-04 17:54 | ED ---
General Adult HPI - General Chief complaint: Extremity Problem,Nontraumatic Stated complaint: not feeling well Time Seen by Provider: 01/04/22 17:37 Source: patient, RN notes reviewed, old records reviewed Mode of arrival: ambulatory Limitations: no limitations - History of Present Illness Initial comments: 51-year-old male presents to the emergency room with complaints of malaise, shortness of breath, bilateral lower extremity swelling, pain and numbness. Patient states that he seen primary care doctor on Wednesday and she ordered an ultrasound of his lower legs. There was a DVT found in his left leg and he is taking Coumadin. Patient states that he just does not feel well. -: week(s) (1) Severity scale (1-10): 6 Quality: aching, other (numbness) Consistency: constant Improves with: none Associated Symptoms: malaise, shortness of breath - Related Data Home Medications Medication Instructions Recorded Confirmed Latanoprost Ophth [Xalatan 0.005%] 1 drop BOTH EYES HS 01/23/14 11/10/21 Simvastatin [Zocor] 20 mg PO HS 01/23/14 11/10/21 Loratadine [Claritin] 10 mg PO DAILY 01/28/16 11/10/21 metFORMIN HCL [Glucophage] 1,000 mg PO BID 01/28/16 11/10/21 Morphine Pain Pump 1 dose INTRATHECA CONTINUOUS 05/05/17 11/10/21 Ferrous Sulfate [Iron (65 MG 325 mg PO BID 10/25/20 11/10/21 Elemental)] Fluticasone Propionate [Flovent 2 puff INHALATION RT-BID 10/25/20 11/10/21 Hfa 220 mcg] Furosemide [Lasix] 40 mg PO DAILY 10/25/20 11/10/21 SUMAtriptan succinate [Imitrex] 50 mg PO DAILY PRN 10/25/20 11/10/21 INSULIN LISPRO (HumaLOG) [humaLOG] See Protocol SQ ACHS 05/15/21 11/10/21 Lubiprostone [Amitiza] 24 mcg PO BID 05/15/21 11/10/21 Warfarin Sodium 10 mg PO HS 05/15/21 11/10/21 lisinopriL [Zestril] 2.5 mg PO DAILY 05/15/21 11/10/21 Isosorbide Mononitrate ER [Imdur] 30 mg PO DAILY 11/10/21 11/10/21 Ketoconazole 2% Cream [Nizoral 2%] 1 applic TOPICAL DAILY 11/10/21 11/10/21 Omeprazole 20 mg PO BID 11/10/21 11/10/21 Previous Rx's Medication Instructions Recorded Acetaminophen Tab [Tylenol] 650 mg PO Q6HR PRN tab 07/04/21 HYDROcodone/APAP 10-325MG [Wilburn 1 tab PO BID #6 tab 07/04/21 10-325] Pregabalin [Lyrica] 200 mg PO BID #6 cap 07/04/21 Amoxic-Pot Clav 875-125Mg 1 each PO Q12HR 7 Days #14 tab 11/18/21 [Augmentin 875-125] INSULIN ASPART (NovoLOG) [NovoLOG 0 unit SQ ACHS each 11/18/21 (formulary)] Insulin Glargine,Hum.rec.anlog 60 units SQ HS #1 each 11/18/21 [Lantus Solostar Pen] Sodium Chloride 0.65% Nasal [Deep 2 spray NASAL QID PRN ml 11/18/21 Sea (Saline)] Azithromycin [Zithromax Z Pack] 1 tab PO DIRECTED #6 tab 01/04/22 Allergies Allergy/AdvReac Type Severity Reaction Status Date / Time adhesive Allergy Rash/Hives Verified 01/04/22 15:41 Review of Systems ROS Statement: Those systems with pertinent positive or pertinent negative responses have been documented in the HPI. ROS Other: All systems not noted in ROS Statement are negative. Past Medical History Past Medical History: Blood Disorder, Diabetes Mellitus, Deep Vein Thrombosis (DVT), GERD/Reflux, Hyperlipidemia, Hypertension, Musculoskeletal Disorder, Osteoarthritis (OA), Sleep Apnea/CPAP/BIPAP Additional Past Medical History / Comment(s): IDDM type II, neuropathy bilateral feet with R foot worse, charcot foot R/L, currently sores L foot and is NWB, recent surgery R foot with boot an can wt bear as tolerated, gastroparesis, hiatal hernia, esophageal narrowing (scarring)/past dysphagia/has had dilations, factor V leiden, 2 DVT's L leg, another superficial blood clot L leg, chronic back pain/has pain pump, DDD and bulging discs, legally blind L eye since , migraines, PVD, fatty liver, MEL with trilogy machine. Last Myocardial Infarction Date:: 11/07/21 History of Any Multi-Drug Resistant Organisms: VRE Date of last positivie culture/infection: 07/01/21 MDRO Source:: VRE FOOT Past Surgical History: Tonsillectomy Additional Past Surgical History / Comment(s): R foot/ankle surgery at [facility] with bone removal/hardware inserted, I&D L foot, pain pump insertion, colonoscopy, EGDs with dilations, UVPPP, eye surgery as an infant. Past Anesthesia/Blood Transfusion Reactions: Family History of Problems w/ Anesthesia Additional Past Anesthesia/Blood Transfusion Reaction / Comment(s): STATES "MOTHER CRASHES" "passes out"-with anesthesia,"needs to have a returning officer dose" Past Psychological History: Anxiety, Depression Smoking Status: Never smoker Past Alcohol Use History: None Reported Past Drug Use History: None Reported - Past Family History Father Family Medical History: Cancer Additional Family Medical History / Comment(s): BLADDER CANCER Mother Family Medical History: CVA/TIA, Diabetes Mellitus, Myocardial Infarction ([place]) General Exam Limitations: no limitations General appearance: alert, in no apparent distress Head exam: Present: atraumatic Eye exam: Absent: scleral icterus, conjunctival injection ENT exam: Present: normal exam Neck exam: Absent: tenderness, meningismus Respiratory exam: Present: normal lung sounds bilaterally. Absent: respiratory distress, accessory muscle use Cardiovascular Exam: Present: regular rate Extremities exam: Present: pedal edema (Nonpitting bilateral lower extremity with evidence of peripheral vascular disease with hyperpigmentation) Back exam: Present: normal inspection. Absent: tenderness, CVA tenderness (R), CVA tenderness (L), rash noted Neurological exam: Present: alert, oriented X3 Psychiatric exam: Present: normal affect, normal mood Skin exam: Present: warm, dry, other (hyperpigmentation bilateral lower extremities). Absent: cyanosis, diaphoretic Course Vital Signs 01/04/22 01/04/22 01/04/22 15:38 19:25 20:20 Temperature 98 F Pulse Rate 59 L 57 L 58 L Respiratory 20 18 18 Rate Blood Pressure 159/87 162/88 142/78 O2 Sat by Pulse 96 94 L 95 Oximetry 01/04/22 21:07 Temperature 98.0 F Pulse Rate 59 L Respiratory 16 Rate Blood Pressure 129/76 O2 Sat by Pulse 96 Oximetry EKG Findings - EKG Results: EKG: sinus rhythm (Ventricular rate 55, SD interval 0.191, QRS 0.106, QTC 0.412) EKG shows: bradycardia Medical Decision Making - Medical Decision Making Patient presents with 1 week of generalized malaise and shortness of breath. He states he was diagnosed with a DVT at [facility] and he is taking Coumadin. Negative d-dimer. EKG shows no ST elevation. Coronavirus test is negative. Chest x-ray shows interstitial pneumonia. There is no evidence of leukocytosis. Patient was given IV fluids for elevated blood glucose. His generalized malaise and shortness breath is likely caused by pneumonia. Vital signs are stable and oxygen saturation is 96% on room air. He was directed to take antibiotics as prescribed and follow up with his primary care doctor this week. I also directed patient to discuss his bilateral leg pain and swelling with his primary care doctor as this appears to be peripheral vascular disease with hyperpigmentation. No evidence of cellulitis. Case was discussed with Dr. Tidwell who was agreeable to this plan of care. - Lab Data Result diagrams: 01/04/22 19:02 01/04/22 19:02 Lab Results 01/04/22 01/04/22 01/04/22 Range/Units 19:02 19:02 19:02 WBC 7.5 (3.8-10.6) k/uL RBC 4.69 (4.30-5.90) m/uL Hgb 15.0 (13.0-17.5) gm/dL Hct 43.8 (39.0-53.0) % MCV 93.3 (80.0-100.0) fL MCH 32.1 (25.0-35.0) pg MCHC 34.4 (31.0-37.0) g/dL RDW 14.6 (11.5-15.5) % Plt Count 186 (150-450) k/uL MPV 8.7 Neutrophils % 72 % Lymphocytes % 17 % Monocytes % 6 % Eosinophils % 3 % Basophils % 1 % Neutrophils # 5.4 (1.3-7.7) k/uL Lymphocytes # 1.2 (1.0-4.8) k/uL Monocytes # 0.4 (0-1.0) k/uL Eosinophils # 0.2 (0-0.7) k/uL Basophils # 0.1 (0-0.2) k/uL PT 14.7 H (9.0-12.0) sec INR 1.4 H (<1.2) APTT 27.2 (22.0-30.0) sec D-Dimer 0.30 (<0.60) mg/L FEU Sodium 137 (137-145) mmol/L Potassium 4.3 (3.5-5.1) mmol/L Chloride 97 L (98-107) mmol/L Carbon Dioxide 27 (22-30) mmol/L Anion Gap 13 mmol/L BUN 21 H (9-20) mg/dL Creatinine 0.80 (0.66-1.25) mg/dL Est GFR (CKD-EPI)AfAm >90 (>60 ml/min/1.73 sqM) Est GFR (CKD-EPI)NonAf >90 (>60 ml/min/1.73 sqM) Glucose 243 H (74-99) mg/dL Plasma Lactic Acid Ger (0.7-2.0) mmol/L Calcium 9.3 (8.4-10.2) mg/dL Magnesium 1.9 (1.6-2.3) mg/dL Total Bilirubin 0.5 (0.2-1.3) mg/dL AST 24 (17-59) U/L ALT 25 (4-49) U/L Alkaline Phosphatase 160 H (38-126) U/L Troponin I (0.000-0.034) ng/mL NT-Pro-B Natriuret Pep pg/mL Total Protein 7.4 (6.3-8.2) g/dL Albumin 4.4 (3.5-5.0) g/dL Coronavirus (PCR) (Not Detectd) 01/04/22 01/04/22 01/04/22 Range/Units 19:02 19:02 19:02 WBC (3.8-10.6) k/uL RBC (4.30-5.90) m/uL Hgb (13.0-17.5) gm/dL Hct (39.0-53.0) % MCV (80.0-100.0) fL MCH (25.0-35.0) pg MCHC (31.0-37.0) g/dL RDW (11.5-15.5) % Plt Count (150-450) k/uL MPV Neutrophils % % Lymphocytes % % Monocytes % % Eosinophils % % Basophils % % Neutrophils # (1.3-7.7) k/uL Lymphocytes # (1.0-4.8) k/uL Monocytes # (0-1.0) k/uL Eosinophils # (0-0.7) k/uL Basophils # (0-0.2) k/uL PT (9.0-12.0) sec INR (<1.2) APTT (22.0-30.0) sec D-Dimer (<0.60) mg/L FEU Sodium (137-145) mmol/L Potassium (3.5-5.1) mmol/L Chloride (98-107) mmol/L Carbon Dioxide (22-30) mmol/L Anion Gap mmol/L BUN (9-20) mg/dL Creatinine (0.66-1.25) mg/dL Est GFR (CKD-EPI)AfAm (>60 ml/min/1.73 sqM) Est GFR (CKD-EPI)NonAf (>60 ml/min/1.73 sqM) Glucose (74-99) mg/dL Plasma Lactic Acid Ger 1.3 (0.7-2.0) mmol/L Calcium (8.4-10.2) mg/dL Magnesium (1.6-2.3) mg/dL Total Bilirubin (0.2-1.3) mg/dL AST (17-59) U/L ALT (4-49) U/L Alkaline Phosphatase (38-126) U/L Troponin I <0.012 (0.000-0.034) ng/mL NT-Pro-B Natriuret Pep 314 pg/mL Total Protein (6.3-8.2) g/dL Albumin (3.5-5.0) g/dL Coronavirus (PCR) (Not Detectd) 01/04/22 Range/Units 20:19 WBC (3.8-10.6) k/uL RBC (4.30-5.90) m/uL Hgb (13.0-17.5) gm/dL Hct (39.0-53.0) % MCV (80.0-100.0) fL MCH (25.0-35.0) pg MCHC (31.0-37.0) g/dL RDW (11.5-15.5) % Plt Count (150-450) k/uL MPV Neutrophils % % Lymphocytes % % Monocytes % % Eosinophils % % Basophils % % Neutrophils # (1.3-7.7) k/uL Lymphocytes # (1.0-4.8) k/uL Monocytes # (0-1.0) k/uL Eosinophils # (0-0.7) k/uL Basophils # (0-0.2) k/uL PT (9.0-12.0) sec INR (<1.2) APTT (22.0-30.0) sec D-Dimer (<0.60) mg/L FEU Sodium (137-145) mmol/L Potassium (3.5-5.1) mmol/L Chloride (98-107) mmol/L Carbon Dioxide (22-30) mmol/L Anion Gap mmol/L BUN (9-20) mg/dL Creatinine (0.66-1.25) mg/dL Est GFR (CKD-EPI)AfAm (>60 ml/min/1.73 sqM) Est GFR (CKD-EPI)NonAf (>60 ml/min/1.73 sqM) Glucose (74-99) mg/dL Plasma Lactic Acid Ger (0.7-2.0) mmol/L Calcium (8.4-10.2) mg/dL Magnesium (1.6-2.3) mg/dL Total Bilirubin (0.2-1.3) mg/dL AST (17-59) U/L ALT (4-49) U/L Alkaline Phosphatase (38-126) U/L Troponin I (0.000-0.034) ng/mL NT-Pro-B Natriuret Pep pg/mL Total Protein (6.3-8.2) g/dL Albumin (3.5-5.0) g/dL Coronavirus (PCR) Not Detected (Not Detectd) Disposition Clinical Impression: Pneumonia Disposition: HOME SELF-CARE Condition: Good Instructions (If sedation given, give patient instructions): Pneumonia (ED) Additional Instructions: Take antibiotics as prescribed. Follow-up with the primary care doctor maria elena dasilva Return to the emergency room with any new or concerning symptoms including chest pain, difficulty in breathing, persistent nausea vomiting or fevers. Prescriptions: Azithromycin [Zithromax Z Pack] 1 tab PO DIRECTED #6 tab Is patient prescribed a controlled substance at d/c from ED?: No Referrals: None,Stated [REFERRING] - 1-2 days Time of Disposition: 20:44
[2022-01-04 19:06] LABS: Basophils # (A) 0.1 k/uL (0-0.2); Basophils % (A) 1 %; Eosinophils # (A) 0.2 k/uL (0-0.7); Eosinophils % (A) 3 %; HCT 43.8 % (39.0-53.0); Lymphocytes # (A) 1.2 k/uL (1.0-4.8); Lymphocytes % (A) 17 %; MCH 32.1 pg (25.0-35.0); MCHC 34.4 g/dL (31.0-37.0); MCV 93.3 fL (80.0-100.0); Mean Platelet Volume 8.7; Monocytes # (A) 0.4 k/uL (0-1.0); Monocytes % (A) 6 %; Neutrophils # (A) 5.4 k/uL (1.3-7.7); Neutrophils % (A) 72 %; Platelet Count 186 k/uL (150-450); RBC 4.69 m/uL (4.30-5.90); RDW 14.6 % (11.5-15.5); WBC 7.5 k/uL (3.8-10.6)
[2022-01-04 19:25] LABS: INR 1.4 (<1.2); Partial Thromboplastin Time 27.2 sec (22.0-30.0); Prothrombin Time 14.7 sec (9.0-12.0)
[2022-01-04 19:27] LABS: ALT 25 U/L (4-49); AST 24 U/L (17-59); African American GFR (CKD) >90 (>60 ml/min/1.73 sqM); Albumin 4.4 g/dL (3.5-5.0); Alkaline Phosphatase 160 U/L (38-126); Anion Gap 13 mmol/L; Blood Urea Nitrogen 21 mg/dL (9-20); Calcium 9.3 mg/dL (8.4-10.2); Carbon Dioxide 27 mmol/L (22-30); Chloride 97 mmol/L (98-107); Glucose 243 mg/dL (74-99); Magnesium 1.9 mg/dL (1.6-2.3); Non-African American GFR(CKD) >90 (>60 ml/min/1.73 sqM); Potassium 4.3 mmol/L (3.5-5.1); Sodium 137 mmol/L (137-145); Total Bilirubin 0.5 mg/dL (0.2-1.3); Total Protein 7.4 g/dL (6.3-8.2)
--- NOTE | 2022-01-04 19:36 | XR ---
EXAMINATION TYPE: XR chest 2V DATE OF EXAM: 01/04/2022 COMPARISON: 11/24/2021 HISTORY: Chest pain TECHNIQUE: FINDINGS: There is coarse interstitial infiltrates in the mid and lower lung garcia. There is poor in spiration. There is no pleural effusion. There are no hilar masses. Bony thorax is intact. Heart size is normal. IMPRESSION: Interstitial pneumonia which is increased compared to old exam. No obvious heart failure.
[2022-01-04 21:11] VITALS: BP 129/76; PULSE 59; RESP 16; TEMP 98
== END 2022-01-04 21:08 | disposition home or self-care (01) ==
LOC: EC 14:46
DX: J18.9 Pneumonia, unspecified organism (principal); E11.9 Type 2 diabetes mellitus without complications; E78.5 Hyperlipidemia, unspecified; I10 Essential (primary) hypertension; K21.9 Gastro-esophageal reflux disease without esophagitis; Z79.83 Long term (current) use of bisphosphonates; Z20.822 Contact with and (suspected) exposure to COVID-19; Z91.048 Other nonmedicinal substance allergy status
CPT/HCPCS: 36415; 71046; 80053; 83605; 83735; 83880; 84484; 85025; 85379; 85610; 85730; 87635; 93005; 99285

== ENCOUNTER 2022-04-14 11:01 | Inpatient (IN) | payer OTHER ==
[2022-04-14 11:13] LABS: Glucose,Whole Blood 467 mg/dL (70-110)
--- NOTE | 2022-04-14 11:48 | ED ---
General Adult HPI - General Chief complaint: Shortness of Breath Stated complaint: SOB Time Seen by Provider: 04/14/22 11:06 Source: EMS Mode of arrival: EMS Limitations: no limitations - History of Present Illness Initial comments: Dictation was produced using [employer] dictation software. please excuse any grammatical, word or spelling errors. Chief Complaint: 52 year-old no multiple comorbid disease presents with 3 days of cough and shortness of breath History of Present Illness: 52-year-old male he has multiple comorbidities inc luding DVT, factor V Leiden, hypertension. Patient is oxygen dependent wearing 2 L is a cannula 24 7. Patient states for the last 3 days she's had a cough. His cough and green sputum. Denies any fever or constitutional symptoms. He also reports shortness of breath. Patient is some mild chest pain gets worse with coughing. States that sharp substernal. The ROS documented in this emergency department record has been reviewed and confirmed by me. Those systems with pertinent positive or negative responses have been documented in the HPI. All other systems are other negative and/or noncontributory. PHYSICAL EXAM: General Impression: Alert and oriented x3, not in acute distress HEENT: Normocephalic atraumatic, extra-ocular movements intact, pupils equal and reactive to light bilaterally, mucous membranes moist. Cardiovascular: Heart regular rate and rhythm Chest: Able to complete full sentences, no retractions, no tachypnea Abdomen: abdomen soft, non-tender, non-distended, no organomegaly Musculoskeletal: Pulses present and equal in all extremities, no peripheral edema Motor: no focal deficits noted Neurological: CN II-XII grossly intact, no focal motor or sensory deficits noted Skin: Intact with no visualized rashes Psych: Normal affect and mood ED course: 52-year-old oxygen dependent male with multiple comorbidities presents to the ER for cough and shortness of breath. Vital signs otherwise within acceptable limits. Nursing notes and chart review was performed My EKG interpretation: Ventricular rate 62, sinus rhythm,. Interval to 11, QRS 90, QTC 388. No DE prolongation, no QTC prolongation, no ST or T-wave changes noted. EKG compared to 11/10/2021 showing no changes. Overall, this EKG is unremarkable Laboratory evaluation obtained. CBC unremarkable. No leukocytosis. Coag panel is negative. Metabolic panel was within acceptable limits. No gap acidosis. Lactic acid level was normal. For panel by PCR is negative. X-ray shows bilateral pneumonia. Patient started on antibiotics will be admitted with consultation to pulmonology. Was pt. sent in by a medical professional or institution? @Home Did you speak to anyone other than the patient for history? @None Did you review nursing and triage notes? @Yes, grade Were old charts reviewed? @Electronic medical record was reviewed Differential Diagnosis? @Pulmonary embolism, pneumonia, heart failure EKG interpreted by me (3pts min.)? @See above X-rays interpreted by me (1pt min.)? @ Showing bilateral pneumonia CT interpreted by me (1pt min.)? @ [none] U/S interpreted by me (1pt. min.)? @ [none] What testing was considered but not performed? (CT, X-rays, U/S, labs)? Why? @D-dimer, CT angios was considered however not pursued due to PE be unlikely What meds were considered but not given? Why? @ [none] Did you discuss the management of the patient with other professionals? @Dr. jonas of [facility] Did you reconcile home meds? @Yes Was smoking cessation discussed for >3mins.? @ [none] Was critical care preformed (if so, how long)? @ [none] Was there de-escalation of care discussed even if they declined? (Discuss DNR or withdrawal of care, Hospice)? @Not applicable What co-morbidities impacted this encounter? (DM, HTN, Smoking, COPD, CAD, Cancer, CVA, Hep., AIDS, mental health diagnosis, sleep apnea, morbid obesity)? @Sleep apnea, obesity Was patient admitted / discharged? @Admitted Undiagnosed new problem with uncertain prognosis? @ [none] Drug Therapy requiring intensive monitoring for toxicity (Heparin, Nitro, Insulin, Cardizem)? @ [none] Were any procedures done? @ [none] Diagnosis/symptom? @Bilateral pneumonia Acute, or Chronic, or Acute on Chronic? @Acute Uncomplicated (without systemic symptoms) or Complicated (systemic symptoms)? @, Complicated secondary to patient's history of respiratory disease Side effects of treatment? @ [none] Exacerbation, Progression, or Severe Exacerbation] @Progression Poses a threat to life or bodily function? @Yes - Related Data Home Medications Medication Instructions Recorded Confirmed Latanoprost Ophth [Xalatan 0.005%] 1 drop BOTH EYES HS 01/23/14 04/14/22 Simvastatin [Zocor] 20 mg PO HS 01/23/14 04/14/22 Loratadine [Claritin] 10 mg PO DAILY 01/28/16 04/14/22 metFORMIN HCL [Glucophage] 1,000 mg PO BID 01/28/16 04/14/22 Morphine Pain Pump 1 dose INTRATHECA CONTINUOUS 05/05/17 04/14/22 Ferrous Sulfate [Iron (65 MG 325 mg PO BID 10/25/20 04/14/22 Elemental)] Fluticasone Propionate [Flovent 2 puff INHALATION RT-BID 10/25/20 04/14/22 Hfa 220 mcg] Furosemide [Lasix] 40 mg PO DAILY 10/25/20 04/14/22 SUMAtriptan succinate [Imitrex] 50 mg PO DAILY PRN 10/25/20 04/14/22 Lubiprostone [Amitiza] 24 mcg PO BID 05/15/21 04/14/22 Warfarin Sodium 10 mg PO HS 05/15/21 04/14/22 lisinopriL [Zestril] 2.5 mg PO DAILY 05/15/21 04/14/22 Isosorbide Mononitrate ER [Imdur] 30 mg PO DAILY 11/10/21 04/14/22 Omeprazole 20 mg PO BID 11/10/21 04/14/22 ALPRAZolam [Xanax] 0.25 mg PO DAILY PRN 04/14/22 04/14/22 Amoxic-Pot Clav 875-125Mg 1 tab PO Q12HR 04/14/22 04/14/22 [Augmentin 875-125] Aspirin 81 mg PO DAILY 04/14/22 04/14/22 Insulin Glargine,Hum.rec.anlog 60 units SQ HS 04/14/22 04/14/22 [Lantus Solostar Pen] Insulin Lispro [humaLOG Kwikpen] 5 unit SQ AC-TID 04/14/22 04/14/22 Potassium Chloride [Klor-Con M10] 10 meq PO DAILY 04/14/22 04/14/22 carBAMazepine [Carbatrol] 100 mg PO BID 04/14/22 04/14/22 Previous Rx's Medication Instructions Recorded Acetaminophen Tab [Tylenol] 650 mg PO Q6HR PRN tab 07/04/21 Pregabalin [Lyrica] 200 mg PO BID #6 cap 07/04/21 Allergies Allergy/AdvReac Type Severity Reaction Status Date / Time adhesive Allergy Rash/Hives Verified 04/14/22 11:49 Review of Systems ROS Statement: Those systems with pertinent positive or pertinent negative responses have been documented in the HPI. ROS Other: All systems not noted in ROS Statement are negative. Past Medical History Past Medical History: Blood Disorder, Diabetes Mellitus, Deep Vein Thrombosis (DVT), GERD/Reflux, Hyperlipidemia, Hypertension, Musculoskeletal Disorder, Osteoarthritis (OA), Sleep Apnea/CPAP/BIPAP Additional Past Medical History / Comment(s): IDDM type II, neuropathy bilateral feet with R foot worse, charcot foot R/L, currently sores L foot and is NWB, recent surgery R foot with boot an can wt bear as tolerated, gastroparesis, hiatal hernia, esophageal narrowing (scarring)/past dysphagia/has had dilations, factor V leiden, 2 DVT's L leg, another superficial blood clot L leg, chronic back pain/has pain pump, DDD and bulging discs, legally blind L eye since , migraines, PVD, fatty liver, MEL with trilogy machine. Last Myocardial Infarction Date:: 11/07/21 History of Any Multi-Drug Resistant Organisms: VRE Date of last positivie culture/infection: 07/01/21 MDRO Source:: VRE FOOT Past Surgical History: Tonsillectomy Additional Past Surgical History / Comment(s): R foot/ankle surgery at [facility] with bone removal/hardware inserted, I&D L foot, pain pump insertion, colonoscopy, EGDs with dilations, UVPPP, eye surgery as an infant. Past Anesthesia/Blood Transfusion Reactions: Family History of Problems w/ Anesthesia Additional Past Anesthesia/Blood Transfusion Reaction / Comment(s): STATES "MOTHER CRASHES" "passes out"-with anesthesia,"needs to have a quality control assessor dose" Past Psychological History: Anxiety, Depression Smoking Status: Never smoker Past Alcohol Use History: None Reported Past Drug Use History: None Reported - Past Family History Father Family Medical History: Cancer Additional Family Medical History / Comment(s): BLADDER CANCER Mother Family Medical History: CVA/TIA, Diabetes Mellitus, Myocardial Infarction ([place]) General Exam Limitations: no limitations Course Vital Signs 04/14/22 04/14/22 11:04 11:13 Temperature 98.3 F Pulse Rate 68 Respiratory 22 18 Rate Blood Pressure 129/64 O2 Sat by Pulse 96 Oximetry Medical Decision Making - Lab Data Result diagrams: 04/14/22 11:43 04/14/22 11:43 Lab Results 04/14/22 04/14/22 04/14/22 Range/Units 11:11 11:43 11:43 WBC 4.6 (3.8-10.6) k/uL RBC 3.99 L (4.30-5.90) m/uL Hgb 11.5 L (13.0-17.5) gm/dL Hct 35.9 L (39.0-53.0) % MCV 89.9 (80.0-100.0) fL MCH 28.9 (25.0-35.0) pg MCHC 32.2 (31.0-37.0) g/dL RDW 15.7 H (11.5-15.5) % Plt Count 120 L (150-450) k/uL MPV 9.9 Neutrophils % 67 % Lymphocytes % 13 % Monocytes % 9 % Eosinophils % 6 % Basophils % 1 % Neutrophils # 3.1 (1.3-7.7) k/uL Lymphocytes # 0.6 L (1.0-4.8) k/uL Monocytes # 0.4 (0-1.0) k/uL Eosinophils # 0.3 (0-0.7) k/uL Basophils # 0.1 (0-0.2) k/uL PT 12.4 H (9.0-12.0) sec INR 1.2 H (<1.2) APTT 26.0 (22.0-30.0) sec Sodium (137-145) mmol/L Potassium (3.5-5.1) mmol/L Chloride (98-107) mmol/L Carbon Dioxide (22-30) mmol/L Anion Gap mmol/L BUN (9-20) mg/dL Creatinine (0.66-1.25) mg/dL Est GFR (CKD-EPI)AfAm (>60 ml/min/1.73 sqM) Est GFR (CKD-EPI)NonAf (>60 ml/min/1.73 sqM) Glucose (74-99) mg/dL POC Glucose (mg/dL) 467 H (70-110) mg/dL POC Glu Water Resources Program Director ID Tamela Dias Plasma Lactic Acid Ger (0.7-2.0) mmol/L Calcium (8.4-10.2) mg/dL Magnesium (1.6-2.3) mg/dL Total Bilirubin (0.2-1.3) mg/dL AST (17-59) U/L ALT (4-49) U/L Alkaline Phosphatase (38-126) U/L Troponin I (0.000-0.034) ng/mL NT-Pro-B Natriuret Pep pg/mL Total Protein (6.3-8.2) g/dL Albumin (3.5-5.0) g/dL Influenza Type A (PCR) (Not Detectd) Influenza Type B (PCR) (Not Detectd) RSV (PCR) (Not Detectd) SARS-CoV-2 (PCR) (Not Detectd) 04/14/22 04/14/22 04/14/22 Range/Units 11:43 11:43 11:43 WBC (3.8-10.6) k/uL RBC (4.30-5.90) m/uL Hgb (13.0-17.5) gm/dL Hct (39.0-53.0) % MCV (80.0-100.0) fL MCH (25.0-35.0) pg MCHC (31.0-37.0) g/dL RDW (11.5-15.5) % Plt Count (150-450) k/uL MPV Neutrophils % % Lymphocytes % % Monocytes % % Eosinophils % % Basophils % % Neutrophils # (1.3-7.7) k/uL Lymphocytes # (1.0-4.8) k/uL Monocytes # (0-1.0) k/uL Eosinophils # (0-0.7) k/uL Basophils # (0-0.2) k/uL PT (9.0-12.0) sec INR (<1.2) APTT (22.0-30.0) sec Sodium 134 L (137-145) mmol/L Potassium 4.5 (3.5-5.1) mmol/L Chloride 102 (98-107) mmol/L Carbon Dioxide 27 (22-30) mmol/L Anion Gap 5 mmol/L BUN 34 H (9-20) mg/dL Creatinine 1.27 H (0.66-1.25) mg/dL Est GFR (CKD-EPI)AfAm 75 (>60 ml/min/1.73 sqM) Est GFR (CKD-EPI)NonAf 65 (>60 ml/min/1.73 sqM) Glucose 409 H (74-99) mg/dL POC Glucose (mg/dL) (70-110) mg/dL POC Glu Water Resources Program Director ID Plasma Lactic Acid Ger 1.7 (0.7-2.0) mmol/L Calcium 8.2 L (8.4-10.2) mg/dL Magnesium 1.7 (1.6-2.3) mg/dL Total Bilirubin 0.3 (0.2-1.3) mg/dL AST 21 (17-59) U/L ALT 27 (4-49) U/L Alkaline Phosphatase 145 H (38-126) U/L Troponin I <0.012 (0.000-0.034) ng/mL NT-Pro-B Natriuret Pep pg/mL Total Protein 6.0 L (6.3-8.2) g/dL Albumin 3.3 L (3.5-5.0) g/dL Influenza Type A (PCR) (Not Detectd) Influenza Type B (PCR) (Not Detectd) RSV (PCR) (Not Detectd) SARS-CoV-2 (PCR) (Not Detectd) 04/14/22 04/14/22 Range/Units 11:43 11:43 WBC (3.8-10.6) k/uL RBC (4.30-5.90) m/uL Hgb (13.0-17.5) gm/dL Hct (39.0-53.0) % MCV (80.0-100.0) fL MCH (25.0-35.0) pg MCHC (31.0-37.0) g/dL RDW (11.5-15.5) % Plt Count (150-450) k/uL MPV Neutrophils % % Lymphocytes % % Monocytes % % Eosinophils % % Basophils % % Neutrophils # (1.3-7.7) k/uL Lymphocytes # (1.0-4.8) k/uL Monocytes # (0-1.0) k/uL Eosinophils # (0-0.7) k/uL Basophils # (0-0.2) k/uL PT (9.0-12.0) sec INR (<1.2) APTT (22.0-30.0) sec Sodium (137-145) mmol/L Potassium (3.5-5.1) mmol/L Chloride (98-107) mmol/L Carbon Dioxide (22-30) mmol/L Anion Gap mmol/L BUN (9-20) mg/dL Creatinine (0.66-1.25) mg/dL Est GFR (CKD-EPI)AfAm (>60 ml/min/1.73 sqM) Est GFR (CKD-EPI)NonAf (>60 ml/min/1.73 sqM) Glucose (74-99) mg/dL POC Glucose (mg/dL) (70-110) mg/dL POC Glu Water Resources Program Director ID Plasma Lactic Acid Ger (0.7-2.0) mmol/L Calcium (8.4-10.2) mg/dL Magnesium (1.6-2.3) mg/dL Total Bilirubin (0.2-1.3) mg/dL AST (17-59) U/L ALT (4-49) U/L Alkaline Phosphatase (38-126) U/L Troponin I (0.000-0.034) ng/mL NT-Pro-B Natriuret Pep 75 pg/mL Total Protein (6.3-8.2) g/dL Albumin (3.5-5.0) g/dL Influenza Type A (PCR) Not Detected (Not Detectd) Influenza Type B (PCR) Not Detected (Not Detectd) RSV (PCR) Not Detected (Not Detectd) SARS-CoV-2 (PCR) Not Detected (Not Detectd) Disposition Clinical Impression: Pneumonia Disposition: ADMITTED IP TO THIS [facility] Condition: Fair Referrals: Dl Waggoner MD [Primary Care Provider] - 1-2 days Decision Time: 13:16
[2022-04-14 12:05] LABS: Basophils # (A) 0.1 k/uL (0-0.2); Basophils % (A) 1 %; Eosinophils # (A) 0.3 k/uL (0-0.7); Eosinophils % (A) 6 %; HCT 35.9 % (39.0-53.0); HGB 11.5 gm/dL (13.0-17.5); Lymphocytes # (A) 0.6 k/uL (1.0-4.8); Lymphocytes % (A) 13 %; MCH 28.9 pg (25.0-35.0); MCHC 32.2 g/dL (31.0-37.0); MCV 89.9 fL (80.0-100.0); Mean Platelet Volume 9.9; Monocytes # (A) 0.4 k/uL (0-1.0); Monocytes % (A) 9 %; Neutrophils # (A) 3.1 k/uL (1.3-7.7); Neutrophils % (A) 67 %; Platelet Count 120 k/uL (150-450); RBC 3.99 m/uL (4.30-5.90); RDW 15.7 % (11.5-15.5); WBC 4.6 k/uL (3.8-10.6)
[2022-04-14 12:13] LABS: INR 1.2 (<1.2); Prothrombin Time 12.4 sec (9.0-12.0)
[2022-04-14 12:25] LABS: Albumin 3.3 g/dL (3.5-5.0); Calcium 8.2 mg/dL (8.4-10.2); Magnesium 1.7 mg/dL (1.6-2.3); Potassium 4.5 mmol/L (3.5-5.1); Total Bilirubin 0.3 mg/dL (0.2-1.3)
--- NOTE | 2022-04-14 12:35 | XR ---
EXAMINATION TYPE: XR chest 2V DATE OF EXAM: 04/14/2022 COMPARISON: 01/04/2022 TECHNIQUE: PA and lateral views submitted. HISTORY: Cough FINDINGS: There are patchy bilateral areas of infiltrate. Limited inspiration with hypertrophic degenerative ch anges spine. No pneumothorax or pleural effusion. Heart size normal. Hypertrophic and degenerative ch anges of the spine. IMPRESSION: 1. Patchy bilateral areas of infiltrate correlate for pneumonia.
[2022-04-14] MEDS ORDERED: cefTRIAXone IN SWFI 1,000 MG/10 ML SYRINGE IVP STA (12:44)
[2022-04-14] MEDS ORDERED: AZITHROMYCIN 500 MG in SODIUM CHLORIDE 0.9% 250 ML IVPB STA (12:44)
[2022-04-14] MEDS ORDERED: NALOXONE 0.4 MG/ML 1 ML VIAL IV PRN (13:08)
[2022-04-14] MEDS: SODIUM CHLORIDE 0.9% 1,000 ML IV SCH ×2 (13:20→15:34)
[2022-04-14] MEDS ORDERED: SODIUM CHLORIDE 0.9% 500 ML 500 ML IV ONE (14:24)
--- NOTE | 2022-04-14 14:40 | P.CNPUL ---
History of Present Illness Consult date: 04/14/22 Requesting physician: Stephan Griffiths Reason for consult: dyspnea, abnormal CXR/CT Chief complaint: Shortness of breath, cough, congestion History of present illness: This is a very pleasant 52-year-old male patient who follows with Dr. Waggoner as his primary care provider. He has a history of diabetes mellitus, diabetic neuropathy, diabetic ulcers in the left foot, Charcot syndrome and surgery on the right foot, hypertension, hyperlipidemia, factor 5 Leiden, DVT of the left lower extremity proximal a 15 years ago and is maintained on warfarin in the outpatient setting. he also has a history of severe obstructive sleep apnea with an AHI of 108 document back in 2010. He had been on BiPAP at a pressure of 20/16 cm of water. He follows with Dr. Veras in our office. He recently switched him to AVAPS unit and currently is on Trilogy non invasive ventilator. the patient is morbidly obese and has obesity/hypoventilation syndrome. Currently at 308 pounds. He also has a history of ventilatory dependent respiratory failure back in September 2021. He was seen here at this hospital at th at time. He presented here to the emergency room todaywith complaints of increasing shortness of breath, cough and congestion. He's had yellowish-brown sputum. He was started on antibiotics yesterday by his PCP however today was not much improved and did speak to our office and the primary's office and was referred here to the emergency room. Chest x-ray does show possible infiltrate in the right lower lobe.white count 4.6. Hemoglobin 11.5. Platelets 120,000. INR 1.2 D-dimer 0.58. sodium 134. Potassium 4.5. Bicarb 27. BUN 34. Creatinine 1.27. initial blood glucose 467, currently 409. Troponin negative. Influenza screen negative. RSV negative. COVID-19 screen negative. He is cu rrently on 0.9 normal saline at 20 ML's per hour. He was given ceftriaxone and azithromycin. He is seen today in consultation in the emergency department. He's currently sitting up on the stretcher having lunch. He is maintaining good O2 saturations in the mid 90s on 2 L/m per nasal cannula. He is afebrile. Hemodynamically stable. Lungs sounds with harsh breath sounds bilaterally diminished. Review of Systems REVIEW OF SYSTEMS: CONSTITUTIONAL: Denies any recent significant weight loss or weight gain. EYES: Denies change in vision. EARS, NOSE, MOUTH, THROAT: Denies headaches, denies sore throat. CARDIOVASCULAR: Denies chest pain, palpitations or syncopal episodes. RESPIRATORY: Positive for shortness of breath, cough, congestion or hemoptysis. GASTROINTESTINAL: Denies change in appetite, denies abdominal pain GENITOURINARY: Denies hematuria, denies infections. MUSKULOSKELETAL: Chronic edema of the lower extremity. INTEGUMENTARY: Denies rash, denies eczema. NEUROLOGICAL: Denies recent memory loss, no recent seizure activity. PSYCHIATRIC: Denies anxiety, denies depression. HEMATOLOGIC/LYMPHATIC: Denies anemia, denies enlarged lymph nodes. Past Medical History Past Medical History: Blood Disorder, Diabetes Mellitus, Deep Vein Thrombosis (DVT), GERD/Reflux, Hyperlipidemia, Hypertension, Musculoskeletal Disorder, Osteoarthritis (OA), Sleep Apnea/CPAP/BIPAP Additional Past Medical History / Comment(s): IDDM type II, neuropathy bilateral feet with R foot worse, charcot foot R/L, currently sores L foot and is NWB, recent surgery R foot with boot an can wt bear as tolerated, gastroparesis, hiatal hernia, esophageal narrowing (scarring)/past dysphagia/has had dilations, factor V leiden, 2 DVT's L leg, another superficial blood clot L leg, chronic back pain/has pain pump, DDD and bulging discs, legally blind L eye since , migraines, PVD, fatty liver, MEL with trilogy machine. Last Myocardial Infarction Date:: 11/07/21 History of Any Multi-Drug Resistant Organisms: VRE Date of last positivie culture/infection: 07/01/21 MDRO Source:: VRE FOOT Past Surgical History: Tonsillectomy Additional Past Surgical History / Comment(s): R foot/ankle surgery at [facility] with bone removal/hardware inserted, I&D L foot, pain pump insertion, colonoscopy, EGDs with dilations, UVPPP, eye surgery as an . Past Anesthesia/Blood Transfusion Reactions: Family History of Problems w/ Anesthesia Additional Past Anesthesia/Blood Transfusion Reaction / Comment(s): STATES "MOTHER CRASHES" "passes out"-with anesthesia,"needs to have a continuity reader dose" Past Psychological History: Anxiety, Depression Smoking Status: Never smoker Past Alcohol Use History: None Reported Past Drug Use History: None Reported - Past Family History Father Family Medical History: Cancer Additional Family Medical History / Comment(s): BLADDER CANCER Mother Family Medical History: CVA/TIA, Diabetes Mellitus, Myocardial Infarction ([place]) Medications and Allergies Home Medications Medication Instructions Recorded Confirmed Type Latanoprost Ophth [Xalatan 0.005%] 1 drop BOTH EYES HS 01/23/14 04/14/22 History Simvastatin [Zocor] 20 mg PO HS 01/23/14 04/14/22 History Loratadine [Claritin] 10 mg PO DAILY 01/28/16 04/14/22 History metFORMIN HCL [Glucophage] 1,000 mg PO BID 01/28/16 04/14/22 History Morphine Pain Pump 1 dose INTRATHECA CONTINUOUS 05/05/17 04/14/22 History Ferrous Sulfate [Iron (65 MG 325 mg PO BID 10/25/20 04/14/22 History Elemental)] Fluticasone Propionate [Flovent 2 puff INHALATION RT-BID 10/25/20 04/14/22 Hist ory Hfa 220 mcg] Furosemide [Lasix] 40 mg PO DAILY 10/25/20 04/14/22 History SUMAtriptan succinate [Imitrex] 50 mg PO DAILY PRN 10/25/20 04/14/22 History Lubiprostone [Amitiza] 24 mcg PO BID 05/15/21 04/14/22 History Warfarin Sodium 10 mg PO HS 05/15/21 04/14/22 History lisinopriL [Zestril] 2.5 mg PO DAILY 05/15/21 04/14/22 History Acetaminophen Tab [Tylenol] 650 mg PO Q6HR PRN tab 07/04/21 04/14/22 Rx Pregabalin [Lyrica] 200 mg PO BID #6 cap 07/04/21 04/14/22 Rx Isosorbide Mononitrate ER [Imdur] 30 mg PO DAILY 11/10/21 04/14/22 History Omeprazole 20 mg PO BID 11/10/21 04/14/22 History ALPRAZolam [Xanax] 0.25 mg PO DAILY PRN 04/14/22 04/14/22 History Amoxic-Pot Clav 875-125Mg 1 tab PO Q12HR 04/14/22 04/14/22 History [Augmentin 875-125] Aspirin 81 mg PO DAILY 04/14/22 04/14/22 History Insulin Glargine,Hum.rec.anlog 60 units SQ HS 04/14/22 04/14/22 History [Lantus Solostar Pen] Insulin Lispro [humaLOG Kwikpen] 5 unit SQ AC-TID 04/14/22 04/14/22 History Potassium Chloride [Klor-Con M10] 10 meq PO DAILY 04/14/22 04/14/22 History carBAMazepine [Carbatrol] 100 mg PO BID 04/14/22 04/14/22 History Allergies Allergy/AdvReac Type Severity Reaction Status Date / Time adhesive Allergy Rash/Hives Verified 04/14/22 11:49 Physical Exam Vitals: Vital Signs Temp Pulse Resp BP Pulse Ox 04/14/22 11:13 18 04/14/22 11:04 98.3 F 68 22 129/64 96 Intake and Output 04/13/22 04/14/22 04/14/22 22:59 06:59 14:59 Other: Weight 141.521 kg GENERAL EXAM: Alert, pleasant, morbidly obese 52-year-old male patient, on 2 L nasal cannula, comfortable in no apparent distress. HEAD: Normocephalic. EYES: Normal reaction of pupils, equal size. NOSE: Clear with pink turbinates. THROAT: Crowding of the posterior pharynx. No erythema or exudates. NECK: Short. No masses, no JVD. CHEST: No chest wall deformity. LUNGS: Equal air entry with harsh breath sounds bilaterally with crackles in the right bases. CVS: S1 and S2 normal with no audible murmur, regular rhythm. ABDOMEN: No hepatosplenomegaly, normal bowel sounds, no guarding or rigidity. SPINE: No scoliosis or deformity SKIN: No rashes CENTRAL NERVOUS SYSTEM: No focal deficits, tone is normal in all 4 extremities. EXTREMITIES: There is changes of chronic venous stasis, chronic lower extremity edema. No clubbing, no cyanosis. Peripheral pulses are intact. Results - Laboratory Findings CBC and BMP: 04/14/22 11:43 04/14/22 11:43 PT/INR, D-dimer PT 12.4 sec (9.0-12.0) H 04/14/22 11:43 INR 1.2 (<1.2) H 04/14/22 11:43 Abnormal lab findings: Abnormal Labs 04/14/22 04/14/22 04/14/22 11:11 11:43 11:43 RBC 3.99 L Hgb 11.5 L Hct 35.9 L RDW 15.7 H Plt Count 120 L Lymphocytes # 0.6 L PT 12.4 H INR 1.2 H Sodium BUN Creatinine Glucose POC Glucose (mg/dL) 467 H Calcium Alkaline Phosphatase Total Protein Albumin 04/14/22 11:43 RBC Hgb Hct RDW Plt Count Lymphocytes # PT INR Sodium 134 L BUN 34 H Creatinine 1.27 H Glucose 409 H POC Glucose (mg/dL) Calcium 8.2 L Alkaline Phosphatase 145 H Total Protein 6.0 L Albumin 3.3 L - Diagnostic Findings Chest x-ray: image reviewed Assessment and Plan Assessment: Acute hypoxemic respiratory failure secondary to an early suspected community- acquired pneumonia of the right lower lobe. Received ceftriaxone and azithromycin today. Procalcitonin pending. Obstructive sleep apnea with chronic hypercapnic respiratory failure secondary to morbid obesity with a history of an AHI of 108, initially on BiPAP . Recently converted to an AVAPS Trilogy ventilator History of factor V Leiden, previous DVT of the left lower extremity 15 years ago. Was maintained on warfarin, supple therapeutic with an INR 1.2 today. Diabetes mellitus, uncontrolled Acute kidney injury with presenting creatinine of 1.27 suspect secondary to dehydration History of ventilatory dependent respiratory failure in October 2021 Diabetic peripheral neuropathy History of Charcot syndrome of the right foot History of diabetic ulcers of the left foot Chronic venous stasis of the lower extremities with edema Hypertension Hyperlipidemia Chronic pain syndrome History of anxiety/depression History of diabetic gastroparesis History of previous CoVID infection in 2020 Plan: The patient was seen and evaluated Chest x-ray, labs and medications reviewed Continue ceftriaxone and azithromycin Add bronchodilators D-dimer within normal limits Check a pro-calcitonin Give fluid resuscitation Pharmacy to dose warfarin We will continue to follow and make further recommendations based on his clinical status I have personally seen and examined the patient, performed the documentation and the assessment and plan as written. Number of minutes spent on the visit: 20.
[2022-04-14] MEDS: INSULIN ASPART (NovoLOG) 100 UNIT/ML VIAL SQ SCH ×3 (15:34→22:22)
[2022-04-14 17:09] LABS: Glucose,Whole Blood 266 mg/dL (70-110)
[2022-04-14] MEDS ORDERED: ACETAMINOPHEN TAB 325 MG TAB PO PRN (17:44)
[2022-04-14] MEDS ORDERED: SUMAtriptan succinate 50 MG TAB PO PRN (17:44)
[2022-04-14] MEDS ORDERED: ALPRAZolam 0.25 MG TAB PO PRN (17:44)
--- NOTE | 2022-04-14 17:50 | P.HPIM ---
History of Present Illness This is a pleasant 52 years old male with multiple medical problems as below Presents because of dyspneaassociated with cough and green to brown phlegm of 2 days and duration with no associated chest pain, only when he coughs He denies any GI or urinary symptoms, no diarrhea vomiting or abdominal pain, no dysuria or urgency. Also no headache weakness or numbness. He feels little dizzy. he denies leukocytosis, alcohol or illicit drugs Vitals stable and he is saturating 96% on 2 L oxygen via nasal cannula No evidence of leukocytosis Hemoglobin 11.5, platelet count 120. INR 1.2. D-dimer is negative at 0.58. Sodium 134 Creatinine 1.24, baseline 0.7-0.9. Sugar on admission was 467. Viruses are undetected including influenza, RSV and Covid Chest x-ray: Showing patchy bilateral area of infiltrate Review of Systems Review of systems CONSTITUTIONAL: No fever, no malaise, no fatigue. HEENT: No recent visual problems or hearing problems. Denied any sore throat. CARDIOVASCULAR: No orthopnea, PND, no palpitations, no syncope. PULMONARY: No chest wall tenderness, no hemoptysis. GASTROINTESTINAL: No diarrhea, no nausea, no vomiting, no abdominal pain. Normoactive bowel sounds. NEUROLOGICAL: No headaches, no weakness, no numbness. HEMATOLOGICAL: Denies any bleeding or petechiae. GENITOURINARY: Denies any burning micturition, frequency, or urgency. MUSCULOSKELETAL/RHEUMATOLOGICAL: Denies any joint pain, swelling, or any muscle pain. ENDOCRINE: Denies any polyuria or polydipsia. Past Medical History Past Medical History: Blood Disorder, Diabetes Mellitus, Deep Vein Thrombosis (DVT), GERD/Reflux, Hyperlipidemia, Hypertension, Musculoskeletal Disorder, Osteoarthritis (OA), Sleep Apnea/CPAP/BIPAP Additional Past Medical History / Comment(s): IDDM type II, neuropathy bilateral feet with R foot worse, charcot foot R/L, currently sores L foot and is NWB, recent surgery R foot with boot an can wt bear as tolerated, gastroparesis, hiatal hernia, esophageal narrowing (scarring)/past dysphagia/has had dilations, factor V leiden, 2 DVT's L leg, another superficial blood clot L leg, chronic back pain/has pain pump, DDD and bulging discs, legally blind L eye since , migraines, PVD, fatty liver, MEL with trilogy machine. Last Myocardial Infarction Date:: 11/07/21 History of Any Multi-Drug Resistant Organisms: VRE Date of last positivie culture/infection: 07/01/21 MDRO Source:: VRE FOOT Past Surgical History: Tonsillectomy Additional Past Surgical History / Comment(s): R foot/ankle surgery at [facility] with bone removal/hardware inserted, I&D L foot, pain pump insertion, colonoscopy, EGDs with dilations, UVPPP, eye surgery as an . Past Anesthesia/Blood Transfusion Reactions: Family History of Problems w/ Anesthesia Additional Past Anesthesia/Blood Transfusion Reaction / Comment(s): STATES "MOTHER CRASHES" "passes out"-with anesthesia,"needs to have a forging die sinker dose" Past Psychological History: Anxiety, Depression Smoking Status: Never smoker Past Alcohol Use History: None Reported Past Drug Use History: None Reported - Past Family History Father Family Medical History: Cancer Additional Family Medical History / Comment(s): BLADDER CANCER Mother Family Medical History: CVA/TIA, Diabetes Mellitus, Myocardial Infarction ([place]) Medications and Allergies Home Medications Medication Instructions Recorded Confirmed Type Latanoprost Ophth [Xalatan 0.005%] 1 drop BOTH EYES HS 01/23/14 04/14/22 History Simvastatin [Zocor] 20 mg PO HS 01/23/14 04/14/22 History Loratadine [Claritin] 10 mg PO DAILY 01/28/16 04/14/22 History metFORMIN HCL [Glucophage] 1,000 mg PO BID 01/28/16 04/14/22 History Morphine Pain Pump 1 dose INTRATHECA CONTINUOUS 05/05/17 04/14/22 History Ferrous Sulfate [Iron (65 MG 325 mg PO BID 10/25/20 04/14/22 History Elemental)] Fluticasone Propionate [Flovent 2 puff INHALATION RT-BID 10/25/20 04/14/22 History Hfa 220 mcg] Furosemide [Lasix] 40 mg PO DAILY 10/25/20 04/14/22 History SUMAtriptan succinate [Imitrex] 50 mg PO DAILY PRN 10/25/20 04/14/22 History Lubiprostone [Amitiza] 24 mcg PO BID 05/15/21 04/14/22 History Warfarin Sodium 10 mg PO HS 05/15/21 04/14/22 History lisinopriL [Zestril] 2.5 mg PO DAILY 05/15/21 04/14/22 History Acetaminophen Tab [Tylenol] 650 mg PO Q6HR PRN tab 07/04/21 04/14/22 Rx Pregabalin [Lyrica] 200 mg PO BID #6 cap 07/04/21 04/14/22 Rx Isosorbide Mononitrate ER [Imdur] 30 mg PO DAILY 11/10/21 04/14/22 History Omeprazole 20 mg PO BID 11/10/21 04/14/22 History ALPRAZolam [Xanax] 0.25 mg PO DAILY PRN 04/14/22 04/14/22 History Amoxic-Pot Clav 875-125Mg 1 tab PO Q12HR 04/14/22 04/14/22 History [Augmentin 875-125] Aspirin 81 mg PO DAILY 04/14/22 04/14/22 History Insulin Glargine,Hum.rec.anlog 60 units SQ HS 04/14/22 04/14/22 History [Lantus Solostar Pen] Insulin Lispro [humaLOG Kwikpen] 5 unit SQ AC-TID 04/14/22 04/14/22 History Potassium Chloride [Klor-Con M10] 10 meq PO DAILY 04/14/22 04/14/22 History carBAMazepine [Carbatrol] 100 mg PO BID 04/14/22 04/14/22 History Allergies Allergy/AdvReac Type Severity Reaction Status Date / Time adhesive Allergy Rash/Hives Verified 04/14/22 11:49 Physical Exam Vitals: Vital Signs Temp Pulse Resp BP Pulse Ox 04/14/22 11:13 18 04/14/22 11:04 98.3 F 68 22 129/64 96 Intake and Output 04/13/22 04/14/22 04/14/22 22:59 06:59 14:59 Other: Weight 141.521 kg -GENERAL: The patient is alert and oriented x3, not in any acute distress. obese HEENT: Pupils are round and equally reacting to light. EOMI. No scleral icterus. No conjunctival pallor. Normocephalic, atraumatic. No pharyngeal erythema. No thyromegaly. CARDIOVASCULAR: S1 and S2 present. No murmurs, rubs, or gallops. PULMONARY: Chest is clear to auscultation, no wheezing or crackles. ABDOMEN: Soft, nontender, nondistended, normoactive bowel sounds. No palpable organomegaly. MUSCULOSKELETAL: No joint swelling or deformity. EXTREMITIES: No cyanosis, clubbing, or pedal edema. NEUROLOGICAL: Gross neurological examination did not reveal any focal deficits. SKIN: No rashes. no petechiae. Results CBC & Chem 7: 04/14/22 11:43 04/14/22 11:43 Labs: Abnormal Lab Results - Last 24 Hours (Table) 04/14/22 04/14/22 04/14/22 Range/Units 11:11 11:43 11:43 RBC 3.99 L (4.30-5.90) m/uL Hgb 11.5 L (13.0-17.5) gm/dL Hct 35.9 L (39.0-53.0) % RDW 15.7 H (11.5-15.5) % Plt Count 120 L (150-450) k/uL Lymphocytes # 0.6 L (1.0-4.8) k/uL PT 12.4 H (9.0-12.0) sec INR 1.2 H (<1.2) Sodium (137-145) mmol/L BUN (9-20) mg/dL Creatinine (0.66-1.25) mg/dL Glucose (74-99) mg/dL POC Glucose (mg/dL) 467 H (70-110) mg/dL Calcium (8.4-10.2) mg/dL Alkaline Phosphatase (38-126) U/L Total Protein (6.3-8.2) g/dL Albumin (3.5-5.0) g/dL 04/14/22 Range/Units 11:43 RBC (4.30-5.90) m/uL Hgb (13.0-17.5) gm/dL Hct (39.0-53.0) % RDW (11.5-15.5) % Plt Count (150-450) k/uL Lymphocytes # (1.0-4.8) k/uL PT (9.0-12.0) sec INR (<1.2) Sodium 134 L (137-145) mmol/L BUN 34 H (9-20) mg/dL Creatinine 1.27 H (0.66-1.25) mg/dL Glucose 409 H (74-99) mg/dL POC Glucose (mg/dL) (70-110) mg/dL Calcium 8.2 L (8.4-10.2) mg/dL Alkaline Phosphatase 145 H (38-126) U/L Total Protein 6.0 L (6.3-8.2) g/dL Albumin 3.3 L (3.5-5.0) g/dL Assessment and Plan Assessment: bilateral community-acquired pneumonia Mild acute kidney injury could be prerenal Diabetes mellitus, with hyperglycemia present on admission History of deep venous thrombosis on warfarin, with subtherapeutic INR History of GERD Hyperlipidemia Hypertension History of osteoarthritis History of chocolate fluid right and left History of sleep apnea History of gastroparesis and hiatal hernia History of dysphagia due to esophageal scarring factor V leiden Chronic back pain due to bone pain pump History of migraine History of anxiety and depression, not an active issue Plan: Continue with IV antibiotics, ceftriaxone and Zithromax Pulmonary consult Continue with breathing treatment and oxygen as needed Monitor sugar and insulin sliding scale Send sputum culture resume warfarin with added bridging coverage with Lovenox at therapeutic dose, risk including risk of bleeding are explained for the patient and he verbalized understanding and acceptance Labs and medication were reviewed.. Continue same treatment. Continue with symptomatic treatment. Resume home medication. Monitor labs and vitals. DVT and GI prophylaxis. Further recommendations as per clinical course of the patient DVT prophylaxis: On warfarinand Lovenox GI Prophylaxis: Ppi Prognosis is guarded
[2022-04-14] MEDS ORDERED: WARFARIN 2 MG TAB PO ONE (18:00)
[2022-04-14] MEDS ORDERED: SODIUM CHLORIDE 0.9% 1,000 ML IV SCH (18:00)
[2022-04-14] MEDS ORDERED: WARFARIN 10 MG TAB PO ONE (18:00)
[2022-04-14] MEDS: FLUTICASONE 220 MCG INHALER INHALATION SCH (19:39)
[2022-04-14 21:15] LABS: Glucose,Whole Blood 204 mg/dL (70-110)
[2022-04-14] MEDS: FERROUS SULFATE 325 MG TAB PO SCH (22:22)
[2022-04-14] MEDS: PREGABALIN 100 MG CAP PO SCH (22:22)
[2022-04-14] MEDS: ENOXAPARIN 120 MG/0.8 ML SYRINGE SQ SCH (22:22)
[2022-04-14] MEDS: LATANOPROST 0.005% OPHTH DROPS 2.5 ML BTL BOTH EYES SCH (22:23)
[2022-04-14] MEDS: carBAMazepine 100 MG TAB.ER.12H PO SCH (22:24)
[2022-04-15] MEDS: SODIUM CHLORIDE 0.9% 1,000 ML IV SCH ×4 (01:26→15:57)
[2022-04-15 07:19] LABS: Glucose,Whole Blood 210 mg/dL (70-110)
[2022-04-15] MEDS: FLUTICASONE 220 MCG INHALER INHALATION SCH ×2 (07:27→20:39)
[2022-04-15] MEDS: INSULIN ASPART (NovoLOG) 100 UNIT/ML VIAL SQ SCH ×4 (08:08→20:34)
[2022-04-15] MEDS: PANTOPRAZOLE 40 MG TABLET PO SCH (08:09)
[2022-04-15] MEDS: carBAMazepine 100 MG TAB.ER.12H PO SCH ×2 (08:09→20:34)
[2022-04-15] MEDS: ASPIRIN 81 MG PO SCH (08:09)
[2022-04-15] MEDS: FUROSEMIDE 40 MG TAB PO SCH (08:10)
[2022-04-15] MEDS: ISOSORBIDE MONONITRATE ER 30 MG TAB.ER.24H PO SCH (08:10)
[2022-04-15] MEDS: LORATADINE 10 MG TAB PO SCH (08:10)
[2022-04-15] MEDS: ENOXAPARIN 120 MG/0.8 ML SYRINGE SQ SCH ×2 (08:10→20:34)
[2022-04-15] MEDS: PREGABALIN 100 MG CAP PO SCH ×2 (08:10→20:34)
[2022-04-15] MEDS: FERROUS SULFATE 325 MG TAB PO SCH ×2 (08:10→20:34)
[2022-04-15 10:21] LABS: Basophils # (A) 0.07 X 10*3/uL (0.00-0.10); Basophils % (A) 1.2 %; Eosinophils # (A) 0.39 X 10*3/uL (0.04-0.35); Eosinophils % (A) 6.5 %; HCT 35.2 % (39.6-50.0); HGB 11.6 g/dL (13.0-17.0); Immature Grans, Automated 0.5 %; Lymphocytes # (A) 1.29 X 10*3/uL (0.90-5.00); Lymphocytes % (A) 21.6 %; Mean Platelet Volume 11.7 fL (9.5-12.2); Monocytes # (A) 0.71 X 10*3/uL (0.20-1.00); Monocytes % (A) 11.9 %; NRBC Per 100 WBC 0 /100 WBCS (0.0-0.0); Neutrophils # (A) 3.47 X 10*3/uL (1.80-7.70); Neutrophils % (A) 58.3 %; Platelet Count 150 X 10*3/uL (140-440); RBC 3.87 X 10*6/uL (4.40-5.60); RDW 15.7 % (11.5-14.5); WBC 5.96 X 10*3/uL (4.50-10.00)
[2022-04-15 10:50] LABS: African American GFR (CKD) 80.1 (60.0-200.0); Anion Gap 9.6 mmol/L (10.00-18.00); BUN/Creat Ratio 23.75 Ratio (12.00-20.00); Blood Urea Nitrogen 28.5 mg/dL (9.0-27.0); Calcium 8.5 mg/dL (8.7-10.3); Carbon Dioxide 24.5 mmol/L (20.0-27.5); Non-African American GFR(CKD) 69.1 (60.0-200.0)
[2022-04-15 11:52] LABS: Glucose,Whole Blood 288 mg/dL (70-110)
[2022-04-15 11:52] LABS: INR 1.35 (0.90-1.11); Prothrombin Time 15.1 sec (9.9-11.9)
[2022-04-15] MEDS ORDERED: IPRATROPIUM-ALBUTEROL 3 ML NEB INHALATION PRN (13:33)
--- NOTE | 2022-04-15 13:35 | P.PN ---
Subjective Progress Note Date: 04/15/22 Principal diagnosis: Community acquired pneumonia This is a very pleasant 52-year-old male patient who follows with Dr. Waggoner as his primary care provider. He has a history of diabetes mellitus, diabetic neuropathy, diabetic ulcers in the left foot, Charcot syndrome and surgery on the right foot, hypertension, hyperlipidemia, factor 5 Leiden, DVT of the left lower extremity proximal a 15 years ago and is maintained on warfarin in the outpatient setting. he also has a history of severe obstructive sleep apnea with an AHI of 108 document back in 2010. He had been on BiPAP at a pressure of 20/16 cm of water. He follows with Dr. Veras in our office. He recently switched him to AVAPS unit and currently is on Trilogy non invasive ventilator. the patient is morbidly obese and has obesity/hypoventilation syndrome. Currently at 308 pounds. He also has a history of ventilatory dependent respiratory failure back in September 2021. He was seen here at this hospital at that time. He presented here to the emergency room todaywith complaints of increasing shortness of breath, cough and congestion. He's had yellowish-brown sputum. He was started on antibiotics yesterday by his PCP however today was not much improved and did speak to our office and the primary's office and was referred here to the emergency room. Chest x-ray does show possible infiltrate in the right lower lobe.white count 4.6. Hemoglobin 11.5. Platelets 120,000. INR 1.2 D-dimer 0.58. sodium 134. Potassium 4.5. Bicarb 27. BUN 34. Creatinine 1.27. initial blood glucose 467, currently 409. Troponin negative. Influenza screen negative. RSV negative. COVID-19 screen negative. He is curr ently on 0.9 normal saline at 20 ML's per hour. He was given ceftriaxone and azithromycin. He is seen today in consultation in the emergency department. He's currently sitting up on the stretcher having lunch. He is maintaining good O2 saturations in the mid 90s on 2 L/m per nasal cannula. He is afebrile. Hemodynamically stable. Lungs sounds with harsh breath sounds bilaterally diminished. I'm evaluating this patient today on 04/15/2022. He is sitting up in the chair, and in no acute distress. He is maintained on 2 L nasal cannula. He did wear his home BiPAP unit last night. Patient is reporting that his breathing has improved. Denies shortness of breath, cough, fever, chest pain. Sputum culture is pending. Most recent chest x-ray from 04/14/2022 reveals patchy bilateral a reas of infiltrate. CBC from today shows no leukocytosis, WBC is 6, hemoglobin 12, hematocrit 35.2, platelet 150. Procalcitonin level is negative at 0.1. BMP is stable sodium 137, potassium 5, chloride 103, serum CO2 25, BUN 29, creatinine 1.2, glucose 226. Patient is maintained on community acquired antibiotics with azithromycin and ceftriaxone. He remains afebrile. DVT prophylaxis with Lovenox. GI prophylaxis with Protonix. Currently being diuresed with Lasix 40 mg by mouth daily. Fluid balance is not appear to be recorded. Vital signs stable. Objective - Vital Signs Vital signs: Vital Signs Temp 97.7 F 04/15/22 11:18 Pulse 66 04/15/22 11:18 Resp 18 04/15/22 11:18 BP 133/66 04/15/22 11:18 Pulse Ox 95 04/15/22 11:18 FiO2 Intake & Output 04/14/22 04/15/22 04/15/22 18:59 06:59 18:59 Intake Total 50 Balance 50 Weight 141.521 kg Intake: Intake, IV Titration 50 Amount Sodium Chloride 0.9% 1, 50 000 ml @ 50 mls/hr IV . Q20H [facility] Rx#:[id number] Other: # Voids 1 # Bowel Movements 1 - Exam GENERAL EXAM: Alert, pleasant, morbidly obese 52-year-old male appearing stated age, on 2 L nasal cannula, comfortable in no apparent distress. HEAD: Normocephalic. EYES: Normal reaction of pupils, equal size. NOSE: Clear with pink turbinates. THROAT: Crowding of the posterior pharynx. No erythema or exudates. NECK: Short. No masses, no JVD. CHEST: No chest wall deformity. LUNGS: Equal air entry with harsh breath sounds bilaterally with crackles in the right bases. CVS: S1 and S2 normal with no audible murmur, regular rhythm. ABDOMEN: No hepatosplenomegaly, normal bowel sounds, no guarding or rigidity. SPINE: No scoliosis or deformity SKIN: No rashes CENTRAL NERVOUS SYSTEM: No focal deficits, tone is normal in all 4 extremities. EXTREMITIES: There is changes of chronic venous stasis, chronic lower extremity edema. No clubbing, no cyanosis. Peripheral pulses are intact. - Labs CBC & Chem 7: 04/15/22 06:39 04/15/22 06:39 Labs: Abnormal Lab Results - Last 24 Hours (Table) 04/14/22 04/14/22 04/15/22 Range/Units 17:07 21:14 06:39 RBC (4.40-5.60) X 10*6/uL Hgb (13.0-17.0) g/dL Hct (39.6-50.0) % RDW (11.5-14.5) % Eosinophils # (0.04-0.35) X 10*3/uL PT (9.9-11.9) sec INR (0.90-1.11) Anion Gap (10.00-18.00) mmol/L BUN (9.0-27.0) mg/dL BUN/Creatinine Ratio (12.00-20.00) Ratio Glucose (70-110) mg/dL POC Glucose (mg/dL) 266 H 204 H (70-110) mg/dL Calcium (8.7-10.3) mg/dL Procalcitonin 0.10 H (0.02-0.09) ng/mL 04/15/22 04/15/22 04/15/22 Range/Units 06:39 06:39 06:39 RBC 3.87 L (4.40-5.60) X 10*6/uL Hgb 11.6 L (13.0-17.0) g/dL Hct 35.2 L (39.6-50.0) % RDW 15.7 H (11.5-14.5) % Eosinophils # 0.39 H (0.04-0.35) X 10*3/uL PT 15.1 H (9.9-11.9) sec INR 1.35 H (0.90-1.11) Anion Gap 9.60 L (10.00-18.00) mmol/L BUN 28.5 H (9.0-27.0) mg/dL BUN/Creatinine Ratio 23.75 H (12.00-20.00) Ratio Glucose 226 H (70-110) mg/dL POC Glucose (mg/dL) (70-110) mg/dL Calcium 8.5 L (8.7-10.3) mg/dL Procalcitonin (0.02-0.09) ng/mL 04/15/22 04/15/22 Range/Units 07:18 11:50 RBC (4.40-5.60) X 10*6/uL Hgb (13.0-17.0) g/dL Hct (39.6-50.0) % RDW (11.5-14.5) % Eosinophils # (0.04-0.35) X 10*3/uL PT (9.9-11.9) sec INR (0.90-1.11) Anion Gap (10.00-18.00) mmol/L BUN (9.0-27.0) mg/dL BUN/Creatinine Ratio (12.00-20.00) Ratio Glucose (70-110) mg/dL POC Glucose (mg/dL) 210 H 288 H (70-110) mg/dL Calcium (8.7-10.3) mg/dL Procalcitonin (0.02-0.09) ng/mL Microbiology - Last 24 Hours (Table) 04/14/22 22:20 Sputum Culture - Preliminary Sputum Assessment and Plan Assessment: Acute hypoxemic respiratory failure secondary to an early suspected community- acquired pneumonia of the right lower lobe. receiving ceftriaxone and azithromycin today. Procalcitonin negative. We'll repeat 2 view chest x-ray tomorrow Obstructive sleep apnea with chronic hypercapnic respiratory failure secondary to morbid obesity with a history of an AHI of 108, initially on BiPAP . Recently converted to an AVAPS Trilogy ventilator History of factor V Leiden, previous DVT of the left lower extremity 15 years ago. Was maintained on warfarin, supple therapeutic with an INR 1.2 today, managed by primary. Currently on Lovenox. Diabetes mellitus2, uncontrolled insulin-dependent Acute kidney injury with presenting creatinine of 1.27 suspect secondary to dehydration History of ventilatory dependent respiratory failure in October 2021 Diabetic peripheral neuropathy History of Charcot syndrome of the right foot History of diabetic ulcers of the left foot Chronic venous stasis of the lower extremities with edema Hypertension Hyperlipidemia Chronic pain syndrome History of anxiety/depression History of diabetic gastroparesis History of previous CoVID infection in 2020 Plan: The patient was seen and evaluated Chest x-ray, labs and medications reviewed Continue ceftriaxone and azithromycin Add bronchodilators D-dimer within normal limits Procalcitonin negative Recheck two-view chest x-ray Pharmacy to dose warfarin. Lovenox bridge therapy per primary. We will continue to follow and make further recommendations based on his clinical status I have personally seen and examined the patient, performed the documentation and the assessment and plan as written. Number of minutes spent on the visit: 10. Time with Patient: Less than 30
--- NOTE | 2022-04-15 15:08 | P.PN ---
Subjective This is a pleasant 52 years old male with multiple medical problems as below Presents because of dyspneaassociated with cough and green to brown phlegm of 2 days and duration with no associated chest pain, only when he coughs He denies any GI or urinary symptoms, no diarrhea vomiting or abdominal pain, no dysuria or urgency. Also no headache weakness or numbness. He feels little dizzy. he denies leukocytosis, alcohol or illicit drugs Vitals stable and he is saturating 96% on 2 L oxygen via nasal cannula No evidence of leukocytosis Hemoglobin 11.5, platelet count 120. INR 1.2. D-dimer is negative at 0.58. Sodium 134 Creatinine 1.24, baseline 0.7-0.9. Sugar on admission was 467. Viruses are undetected including influenza, RSV and Covid Chest x-ray: Showing patchy bilateral area of infiltrate 04/15/2022 Patient breathing is stable, is currently on 2 L oxygen via nasal cannula His pneumonia looks like improving. He and his creatinine is stable at 1.2. continue with Robitussin for cough and Continue with warfarin, going to give 14 mg tonight compared to 12 mg. At home he was in 10 mg. Is currently on Lovenox bridging Possible discharge in 24-48 hours Objective - Vital Signs Vital signs: Vital Signs Temp 97.7 F 04/15/22 11:18 Pulse 66 04/15/22 11:18 Resp 18 04/15/22 11:18 BP 133/66 04/15/22 11:18 Pulse Ox 95 04/15/22 11:18 FiO2 Intake & Output 04/14/22 04/15/22 04/15/22 18:59 06:59 18:59 Intake Total 50 Balance 50 Weight 141.521 kg Intake: Intake, IV Titration 50 Amount Sodium Chloride 0.9% 1, 50 000 ml @ 50 mls/hr IV . Q20H [facility] Rx#:[id number] Other: # Voids 1 # Bowel Movements 1 - Exam -GENERAL: The patient is alert and oriented x3, not in any acute distress. Obese HEENT: Pupils are round and equally reacting to light. EOMI. No scleral icterus. No conjunctival pallor. Normocephalic, atraumatic. No pharyngeal erythema. No thyromegaly. CARDIOVASCULAR: S1 and S2 present. No murmurs, rubs, or gallops. PULMONARY: Chest is clear to auscultation, no wheezing or crackles. ABDOMEN: Soft, nontender, nondistended, normoactive bowel sounds. No palpable organomegaly. MUSCULOSKELETAL: No joint swelling or deformity. EXTREMITIES: No cyanosis, clubbing, or pedal edema. NEUROLOGICAL: Gross neurological examination did not reveal any focal deficits. SKIN: No rashes. no petechiae. - Labs CBC & Chem 7: 04/15/22 06:39 04/15/22 06:39 Labs: Abnormal Lab Results - Last 24 Hours (Table) 04/14/22 04/14/22 04/15/22 Range/Units 17:07 21:14 06:39 RBC (4.40-5.60) X 10*6/uL Hgb (13.0-17.0) g/dL Hct (39.6-50.0) % RDW (11.5-14.5) % Eosinophils # (0.04-0.35) X 10*3/uL PT (9.9-11.9) sec INR (0.90-1.11) Anion Gap (10.00-18.00) mmol/L BUN (9.0-27.0) mg/dL BUN/Creatinine Ratio (12.00-20.00) Ratio Glucose (70-110) mg/dL POC Glucose (mg/dL) 266 H 204 H (70-110) mg/dL Calcium (8.7-10.3) mg/dL Procalcitonin 0.10 H (0.02-0.09) ng/mL 04/15/22 04/15/22 04/15/22 Range/Units 06:39 06:39 06:39 RBC 3.87 L (4.40-5.60) X 10*6/uL Hgb 11.6 L (13.0-17.0) g/dL Hct 35.2 L (39.6-50.0) % RDW 15.7 H (11.5-14.5) % Eosinophils # 0.39 H (0.04-0.35) X 10*3/uL PT 15.1 H (9.9-11.9) sec INR 1.35 H (0.90-1.11) Anion Gap 9.60 L (10.00-18.00) mmol/L BUN 28.5 H (9.0-27.0) mg/dL BUN/Creatinine Ratio 23.75 H (12.00-20.00) Ratio Glucose 226 H (70-110) mg/dL POC Glucose (mg/dL) (70-110) mg/dL Calcium 8.5 L (8.7-10.3) mg/dL Procalcitonin (0.02-0.09) ng/mL 04/15/22 04/15/22 Range/Units 07:18 11:50 RBC (4.40-5.60) X 10*6/uL Hgb (13.0-17.0) g/dL Hct (39.6-50.0) % RDW (11.5-14.5) % Eosinophils # (0.04-0.35) X 10*3/uL PT (9.9-11.9) sec INR (0.90-1.11) Anion Gap (10.00-18.00) mmol/L BUN (9.0-27.0) mg/dL BUN/Creatinine Ratio (12.00-20.00) Ratio Glucose (70-110) mg/dL POC Glucose (mg/dL) 210 H 288 H (70-110) mg/dL Calcium (8.7-10.3) mg/dL Procalcitonin (0.02-0.09) ng/mL Microbiology - Last 24 Hours (Table) 04/14/22 22:20 Sputum Culture - Preliminary Sputum Assessment and Plan Assessment: bilateral community-acquired pneumonia Mild acute kidney injury could be prerenal Diabetes mellitus, with hyperglycemia present on admission History of deep venous thrombosis on warfarin, with subtherapeutic INR History of GERD Hyperlipidemia Hypertension History of osteoarthritis History of chocolate fluid right and left History of sleep apnea History of gastroparesis and hiatal hernia History of dysphagia due to esophageal scarring factor V leiden Chronic back pain due to bone pain pump History of migraine History of anxiety and depression, not an active issue Plan: Continue with IV antibiotics, ceftriaxone and Zithromax Pulmonary consult Continue with breathing treatment and oxygen as needed Monitor sugar and insulin sliding scale resume warfarin with added bridging coverage with Lovenox at therapeutic dose, risk including risk of bleeding are explained for the patient and he verbalized understanding and acceptance Labs and medication were reviewed.. Continue same treatment. Continue with symptomatic treatment. Resume home medication. Monitor labs and vitals. DVT and GI prophylaxis. Further recommendations as per clinical course of the patient DVT prophylaxis: On warfarinand Lovenox GI Prophylaxis: Ppi Prognosis is guarded
[2022-04-15] MEDS: guaiFENesin-DM 100-10MG/5ML 10 ML CUP PO SCH ×2 (15:55→23:50)
[2022-04-15 17:08] LABS: Glucose,Whole Blood 384 mg/dL (70-110)
[2022-04-15] MEDS: AZITHROMYCIN 500 MG in SODIUM CHLORIDE 0.9% 250 ML IVPB SCH (17:23)
[2022-04-15] MEDS ORDERED: WARFARIN 2 MG TAB PO ONE ×2 (18:00)
[2022-04-15] MEDS ORDERED: WARFARIN 10 MG TAB PO ONE (18:00)
[2022-04-15 20:14] LABS: Glucose,Whole Blood 272 mg/dL (70-110)
[2022-04-15] MEDS: LATANOPROST 0.005% OPHTH DROPS 2.5 ML BTL BOTH EYES SCH (20:35)
[2022-04-16] MEDS: SODIUM CHLORIDE 0.9% 1,000 ML IV SCH ×3 (03:37→17:05)
[2022-04-16] MEDS: guaiFENesin-DM 100-10MG/5ML 10 ML CUP PO SCH ×4 (05:12→23:45)
[2022-04-16 07:15] LABS: Glucose,Whole Blood 246 mg/dL (70-110)
--- NOTE | 2022-04-16 08:55 | XR ---
EXAMINATION TYPE: XR chest 2V DATE OF EXAM: 04/16/2022 COMPARISON: 04/14/2022 TECHNIQUE: PA and lateral views submitted. HISTORY: Cough FINDINGS: There are patchy bilateral areas of infiltrate. Limited inspiration with hypertrophic degenerative ch anges spine. No pneumothorax or pleural effusion. Heart size normal. Hypertrophic and degenerative ch anges of the spine. IMPRESSION: 1. Persistent bilateral patchy. Correlate for pneumonia..
[2022-04-16] MEDS: INSULIN ASPART (NovoLOG) 100 UNIT/ML VIAL SQ SCH ×4 (08:56→20:28)
[2022-04-16] MEDS: FERROUS SULFATE 325 MG TAB PO SCH ×2 (08:57→20:28)
[2022-04-16] MEDS: carBAMazepine 100 MG TAB.ER.12H PO SCH ×2 (09:01→20:28)
[2022-04-16] MEDS: ISOSORBIDE MONONITRATE ER 30 MG TAB.ER.24H PO SCH (09:02)
[2022-04-16] MEDS: ASPIRIN 81 MG PO SCH (09:02)
[2022-04-16] MEDS: LORATADINE 10 MG TAB PO SCH (09:02)
[2022-04-16] MEDS: PANTOPRAZOLE 40 MG TABLET PO SCH (09:02)
[2022-04-16] MEDS: PREGABALIN 100 MG CAP PO SCH ×2 (09:02→20:27)
[2022-04-16] MEDS: FUROSEMIDE 40 MG TAB PO SCH (09:02)
[2022-04-16] MEDS: ENOXAPARIN 120 MG/0.8 ML SYRINGE SQ SCH ×2 (09:02→20:27)
[2022-04-16 09:05] LABS: INR 1.5 (0.90-1.11); Prothrombin Time 16.7 sec (9.9-11.9)
[2022-04-16] MEDS: FLUTICASONE 220 MCG INHALER INHALATION SCH ×2 (09:35→20:12)
[2022-04-16 11:13] LABS: Glucose,Whole Blood 268 mg/dL (70-110)
--- NOTE | 2022-04-16 11:39 | P.PN ---
Subjective Progress Note Date: 04/16/22 Principal diagnosis: Community acquired pneumonia This is a very pleasant 52-year-old male patient who follows with Dr. Waggoner as his primary care provider. He has a history of diabetes mellitus, diabetic neuropathy, diabetic ulcers in the left foot, Charcot syndrome and surgery on the right foot, hypertension, hyperlipidemia, factor 5 Leiden, DVT of the left lower extremity proximal a 15 years ago and is maintained on warfarin in the outpatient setting. he also has a history of severe obstructive sleep apnea with an AHI of 108 document back in 2010. He had been on BiPAP at a pressure of 20/16 cm of water. He follows with Dr. Veras in our office. He recently switched him to AVAPS unit and currently is on Trilogy non invasive ventilator. the patient is morbidly obese and has obesity/hypoventilation syndrome. Currently at 308 pounds. He also has a history of ventilatory dependent respiratory failure back in September 2021. He was seen here at this hospital at that time. He presented here to the emergency room todaywith complaints of increasing shortness of breath, cough and congestion. He's had yellowish-brown sputum. He was started on antibiotics yesterday by his PCP however today was not much improved and did speak to our office and the primary's office and was referred here to the emergency room. Chest x-ray does show possible infiltrate in the right lower lobe.white count 4.6. Hemoglobin 11.5. Platelets 120,000. INR 1.2 D-dimer 0.58. sodium 134. Potassium 4.5. Bicarb 27. BUN 34. Creatinine 1.27. initial blood glucose 467, currently 409. Troponin negative. Influenza screen negative. RSV negative. COVID-19 screen negative. He is curr ently on 0.9 normal saline at 20 ML's per hour. He was given ceftriaxone and azithromycin. He is seen today in consultation in the emergency department. He's currently sitting up on the stretcher having lunch. He is maintaining good O2 saturations in the mid 90s on 2 L/m per nasal cannula. He is afebrile. Hemodynamically stable. Lungs sounds with harsh breath sounds bilaterally diminished. I'm evaluating this patient today on 04/15/2022. He is sitting up in the chair, and in no acute distress. He is maintained on 2 L nasal cannula. He did wear his home BiPAP unit last night. Patient is reporting that his breathing has improved. Denies shortness of breath, cough, fever, chest pain. Sputum culture is pending. Most recent chest x-ray from 04/14/2022 reveals patchy bilateral a reas of infiltrate. CBC from today shows no leukocytosis, WBC is 6, hemoglobin 12, hematocrit 35.2, platelet 150. Procalcitonin level is negative at 0.1. BMP is stable sodium 137, potassium 5, chloride 103, serum CO2 25, BUN 29, creatinine 1.2, glucose 226. Patient is maintained on community acquired antibiotics with azithromycin and ceftriaxone. He remains afebrile. DVT prophylaxis with Lovenox. GI prophylaxis with Protonix. Currently being diuresed with Lasix 40 mg by mouth daily. Fluid balance is not appear to be recorded. Vital signs stable. I'm re-evaluating this patient today on 04/16/2022. He is sitting up in bed in no acute distress. He is on 1 L nasal cannula oxygenating in the high 90s. This probably can be removed. Patient admits that he is feeling well and that his breathing has improved. Denies shortness of breath, cough, fever, chest pain. Sputum and blood cultures show no growth at this point. Procalcitonin was negative. Currently receiving empiric antibiotics with Zithromax and Rocephin. He remains afebrile. He is maintained on DuoNeb inhalations, Flovent, Robitussin-DM. Continues to use home BiPAP unit at bedtime. His repeat chest x-ray from today 04/16/2022, reveals persistent bilateral infiltrates, with no significant change from 04/14/2022. No new labs today. DVT prophylaxis with Lovenox and GI prophylaxis with Protonix. He is on his home dose of Lasix. Patient is telling me that he is ready to go home. Vital signs remained stabl e. Objective - Vital Signs Vital signs: Vital Signs Temp 98 F 04/16/22 03:50 Pulse 56 L 04/16/22 03:50 Resp 16 04/16/22 03:50 BP 126/77 04/16/22 03:50 Pulse Ox 95 04/16/22 03:50 FiO2 Intake & Output 04/15/22 04/16/22 04/16/22 18:59 06:59 18:59 Intake Total 600 Balance 600 Intake: Intake, IV Titration 600 Amount Sodium Chloride 0.9% 1, 600 000 ml @ 50 mls/hr IV . Q20H [facility] Rx#:[id number] Other: # Voids 3 # Bowel Movements 1 - Exam GENERAL EXAM: Alert, pleasant, morbidly obese 52-year-old male appearing stated age, on 2 L nasal cannula, comfortable in no apparent distress. HEAD: Normocephalic. EYES: Normal reaction of pupils, equal size. NOSE: Clear with pink turbinates. THROAT: Crowding of the posterior pharynx. No erythema or exudates. NECK: Short. No masses, no JVD. CHEST: No chest wall deformity. LUNGS: Equal air entry with crackles in the right bases. CVS: S1 and S2 normal with no audible murmur, regular rhythm. ABDOMEN: No hepatosplenomegaly, normal bowel sounds, no guarding or rigidity. SPINE: No scoliosis or deformity SKIN: No rashes CENTRAL NERVOUS SYSTEM: No focal deficits, tone is normal in all 4 extremities. EXTREMITIES: There is changes of chronic venous stasis, chronic lower extremity edema. No clubbing, no cyanosis. Peripheral pulses are intact. - Labs CBC & Chem 7: 04/15/22 06:39 04/15/22 06:39 Labs: Abnormal Lab Results - Last 24 Hours (Table) 04/15/22 04/15/22 04/15/22 Range/Units 06:39 11:50 17:07 PT 15.1 H (9.9-11.9) sec INR 1.35 H (0.90-1.11) POC Glucose (mg/dL) 288 H 384 H (70-110) mg/dL 04/15/22 04/16/22 04/16/22 Range/Units 20:12 05:35 07:13 PT 16.7 H (9.9-11.9) sec INR 1.50 H (0.90-1.11) POC Glucose (mg/dL) 272 H 246 H (70-110) mg/dL 04/16/22 Range/Units 11:12 PT (9.9-11.9) sec INR (0.90-1.11) POC Glucose (mg/dL) 268 H (70-110) mg/dL Microbiology - Last 24 Hours (Table) 04/14/22 22:20 Gram Stain - Preliminary Sputum Sputum Culture - Preliminary 04/14/22 13:10 Blood Culture - Preliminary Blood No Growth after 24 hours 04/14/22 12:55 Blood Culture - Preliminary Blood No Growth after 24 hours Assessment and Plan Assessment: Acute hypoxemic respiratory failure secondary to an early suspected community- acquired pneumonia of the right lower lobe. receiving ceftriaxone and azithromycin today. Procalcitonin negative. We will discontinue ceftriaxone and azithromycin today and start by mouth Augmentin and preparation for discharge. Patient is feeling better. Two-view chest x-ray shows persistent bilateral infiltrates without significant change from 04/14/2022. Obstructive sleep apnea with chronic hypercapnic respiratory failure secondary to morbid obesity with a history of an AHI of 108, initially on BiPAP . Recently converted to an AVAPS Trilogy ventilator History of factor V Leiden, previous DVT of the left lower extremity 15 years ago. Was maintained on warfarin, supple therapeutic with an INR 1.2 today, managed by primary. Currently on Lovenox. Diabetes mellitus2, uncontrolled insulin-dependent Acute kidney injury with presenting creatinine of 1.27 suspect secondary to dehydration History of ventilatory dependent respiratory failure in October 2021 Diabetic peripheral neuropathy History of Charcot syndrome of the right foot History of diabetic ulcers of the left foot Chronic venous stasis of the lower extremities with edema Hypertension Hyperlipidemia Chronic pain syndrome History of anxiety/depression History of diabetic gastroparesis History of previous CoVID infection in 2020 Plan: The patient was seen and evaluated Chest x-ray, labs and medications reviewed two-view chest x-ray from today without interval change. We'll discontinue ceftriaxone and azithromycin. Will add oral Augmentin in preparation for discharge. Continue bronchodilators D-dimer within normal limits Procalcitonin negative Pharmacy to dose warfarin. Lovenox bridge therapy per primary. The patient is cleared for discharge from a pulmonary standpoint. I have personally seen and examined the patient, performed the documentation and the assessment and plan as written. Number of minutes spent on the visit: 10. Time with Patient: Less than 30
[2022-04-16] MEDS: NON FORMULARY DRUG (Morphine Pain Pump 1 DOSE) MISCELLANE SCH (12:57)
[2022-04-16 17:20] LABS: Glucose,Whole Blood 323 mg/dL (70-110)
[2022-04-16] MEDS: AZITHROMYCIN 500 MG in SODIUM CHLORIDE 0.9% 250 ML IVPB SCH (17:39)
[2022-04-16] MEDS ORDERED: WARFARIN 10 MG TAB PO ONE (18:00)
[2022-04-16] MEDS ORDERED: WARFARIN 2 MG TAB PO ONE (18:00)
[2022-04-16 20:12] LABS: Glucose,Whole Blood 319 mg/dL (70-110)
[2022-04-16] MEDS: metFORMIN 500 MG TAB PO SCH (20:26)
[2022-04-16] MEDS: LATANOPROST 0.005% OPHTH DROPS 2.5 ML BTL BOTH EYES SCH (20:28)
[2022-04-16] MEDS ORDERED: INSULIN DETEMIR (LEVEMIR) 100 UNIT/ML SYR SQ SCH (21:00)
[2022-04-16] MEDS ORDERED: WARFARIN 10 MG TAB PO SCH (21:00)
[2022-04-16] MEDS ORDERED: NON FORMULARY DRUG (Omeprazole [Omeprazole] 20 MG Tab.Rap.Dr) PO SCH (21:00)
[2022-04-16] MEDS ORDERED: ATORVASTATIN 10 MG TAB PO SCH (21:00)
[2022-04-17] MEDS: guaiFENesin-DM 100-10MG/5ML 10 ML CUP PO SCH ×2 (06:16→12:46)
[2022-04-17] MEDS: SODIUM CHLORIDE 0.9% 1,000 ML IV SCH (06:17)
[2022-04-17 07:17] LABS: Glucose,Whole Blood 158 mg/dL (70-110)
[2022-04-17 07:55] VITALS: BP 153/74; PULSE 52; RESP 17; TEMP 98.1
--- NOTE | 2022-04-17 07:57 | PN ---
PROGRESS NOTE SUBJECTIVE: This is a 52-year-old gentleman, who was admitted with bilateral community-acquired pneumonia and is being closely monitored. The patient also had elevated blood sugars and subtherapeutic INR also. No chest pain. No palpitations. No fever. OBJECTIVE: VITAL SIGNS: Pulse is 56, blood pressure 120/60, respirations 18. CHEST: Scattered rhonchi. ABDOMEN: Soft. NERVOUS SYSTEM: Nonfocal. LABORATORY DATA: INR 1.5. ASSESSMENT: 1. Bilateral community-acquired pneumonia. 2. Mild acute kidney injury. 3. Diabetes, type 2. 4. Deep venous thrombosis, on Coumadin with subtherapeutic INR. 5. History of gastroesophageal reflux disease. RECOMMENDATIONS: I recommend to continue current medications and symptomatic treatment. Otherwise, Lovenox. Repeat labs tomorrow. Continue the antibiotics and the rest of medications. Closely follow with Pulmonary. Further recommendations to follow. MMODL / IJN: [id number] /
[2022-04-17 08:01] LABS: Basophils # (A) 0.1 k/uL (0-0.2); Basophils % (A) 1 %; Eosinophils # (A) 0.3 k/uL (0-0.7); Eosinophils % (A) 6 %; HCT 36.2 % (39.0-53.0); HGB 12.3 gm/dL (13.0-17.5); Lymphocytes # (A) 1.3 k/uL (1.0-4.8); Lymphocytes % (A) 28 %; MCH 30.9 pg (25.0-35.0); MCHC 34.1 g/dL (31.0-37.0); MCV 90.7 fL (80.0-100.0); Mean Platelet Volume 9.8; Monocytes # (A) 0.4 k/uL (0-1.0); Monocytes % (A) 8 %; Neutrophils # (A) 2.7 k/uL (1.3-7.7); Neutrophils % (A) 55 %; Platelet Count 153 k/uL (150-450); RDW 15.1 % (11.5-15.5); WBC 4.9 k/uL (3.8-10.6)
[2022-04-17 08:16] LABS: INR 1.8 (<1.2); Prothrombin Time 18.2 sec (9.0-12.0)
[2022-04-17] MEDS: PANTOPRAZOLE 40 MG TABLET PO SCH (08:28)
[2022-04-17] MEDS: INSULIN ASPART (NovoLOG) 100 UNIT/ML VIAL SQ SCH ×2 (08:28→12:46)
[2022-04-17] MEDS: ENOXAPARIN 120 MG/0.8 ML SYRINGE SQ SCH (08:28)
[2022-04-17 08:29] LABS: African American GFR (CKD) >90 (>60 ml/min/1.73 sqM); Anion Gap 5 mmol/L; Blood Urea Nitrogen 23 mg/dL (9-20); Calcium 8.4 mg/dL (8.4-10.2); Carbon Dioxide 29 mmol/L (22-30); Chloride 105 mmol/L (98-107); Glucose 146 mg/dL (74-99); Non-African American GFR(CKD) 86 (>60 ml/min/1.73 sqM); Potassium 4.5 mmol/L (3.5-5.1); Sodium 139 mmol/L (137-145)
[2022-04-17] MEDS: PREGABALIN 100 MG CAP PO SCH (08:29)
[2022-04-17] MEDS: FUROSEMIDE 40 MG TAB PO SCH (08:29)
[2022-04-17] MEDS: carBAMazepine 100 MG TAB.ER.12H PO SCH (08:29)
[2022-04-17] MEDS: LORATADINE 10 MG TAB PO SCH (08:29)
[2022-04-17] MEDS: FERROUS SULFATE 325 MG TAB PO SCH (08:29)
[2022-04-17] MEDS: ASPIRIN 81 MG PO SCH (08:29)
[2022-04-17] MEDS: ISOSORBIDE MONONITRATE ER 30 MG TAB.ER.24H PO SCH (08:29)
[2022-04-17] MEDS: metFORMIN 500 MG TAB PO SCH (08:35)
[2022-04-17] MEDS ORDERED: AMOXIC-POT CLAV 875-125MG 1 EACH TAB PO SCH (09:00)
[2022-04-17] MEDS: FLUTICASONE 220 MCG INHALER INHALATION SCH (09:27)
[2022-04-17 11:17] LABS: Glucose,Whole Blood 196 mg/dL (70-110)
[2022-04-17] MEDS: NON FORMULARY DRUG (Morphine Pain Pump 1 DOSE) MISCELLANE SCH (11:20)
--- NOTE | 2022-04-17 11:30 | P.PN ---
Subjective Progress Note Date: 04/17/22 Principal diagnosis: Community acquired pneumonia This is a very pleasant 52-year-old male patient who follows with Dr. Waggoner as his primary care provider. He has a history of diabetes mellitus, diabetic neuropathy, diabetic ulcers in the left foot, Charcot syndrome and surgery on the right foot, hypertension, hyperlipidemia, factor 5 Leiden, DVT of the left lower extremity proximal a 15 years ago and is maintained on warfarin in the outpatient setting. he also has a history of severe obstructive sleep apnea with an AHI of 108 document back in 2010. He had been on BiPAP at a pressure of 20/16 cm of water. He follows with Dr. Veras in our office. He recently switched him to AVAPS unit and currently is on Trilogy non invasive ventilator. the patient is morbidly obese and has obesity/hypoventilation syndrome. Currently at 308 pounds. He also has a history of ventilatory dependent respiratory failure back in September 2021. He was seen here at this hospital at that time. He presented here to the emergency room todaywith complaints of increasing shortness of breath, cough and congestion. He's had yellowish-brown sputum. He was started on antibiotics yesterday by his PCP however today was not much improved and did speak to our office and the primary's office and was referred here to the emergency room. Chest x-ray does show possible infiltrate in the right lower lobe.white count 4.6. Hemoglobin 11.5. Platelets 120,000. INR 1.2 D-dimer 0.58. sodium 134. Potassium 4.5. Bicarb 27. BUN 34. Creatinine 1.27. initial blood glucose 467, currently 409. Troponin negative. Influenza screen negative. RSV negative. COVID-19 screen negative. He is curr ently on 0.9 normal saline at 20 ML's per hour. He was given ceftriaxone and azithromycin. He is seen today in consultation in the emergency department. He's currently sitting up on the stretcher having lunch. He is maintaining good O2 saturations in the mid 90s on 2 L/m per nasal cannula. He is afebrile. Hemodynamically stable. Lungs sounds with harsh breath sounds bilaterally diminished. I'm evaluating this patient today on 04/15/2022. He is sitting up in the chair, and in no acute distress. He is maintained on 2 L nasal cannula. He did wear his home BiPAP unit last night. Patient is reporting that his breathing has improved. Denies shortness of breath, cough, fever, chest pain. Sputum culture is pending. Most recent chest x-ray from 04/14/2022 reveals patchy bilateral a reas of infiltrate. CBC from today shows no leukocytosis, WBC is 6, hemoglobin 12, hematocrit 35.2, platelet 150. Procalcitonin level is negative at 0.1. BMP is stable sodium 137, potassium 5, chloride 103, serum CO2 25, BUN 29, creatinine 1.2, glucose 226. Patient is maintained on community acquired antibiotics with azithromycin and ceftriaxone. He remains afebrile. DVT prophylaxis with Lovenox. GI prophylaxis with Protonix. Currently being diuresed with Lasix 40 mg by mouth daily. Fluid balance is not appear to be recorded. Vital signs stable. I'm re-evaluating this patient today on 04/16/2022. He is sitting up in bed in no acute distress. He is on 1 L nasal cannula oxygenating in the high 90s. This probably can be removed. Patient admits that he is feeling well and that his breathing has improved. Denies shortness of breath, cough, fever, chest pain. Sputum and blood cultures show no growth at this point. Procalcitonin was negative. Currently receiving empiric antibiotics with Zithromax and Rocephin. He remains afebrile. He is maintained on DuoNeb inhalations, Flovent, Robitussin-DM. Continues to use home BiPAP unit at bedtime. His repeat chest x-ray from today 04/16/2022, reveals persistent bilateral infiltrates, with no significant change from 04/14/2022. No new labs today. DVT prophylaxis with Lovenox and GI prophylaxis with Protonix. He is on his home dose of Lasix. Patient is telling me that he is ready to go home. Vital signs remained stabl e. I'm reevaluating this patient today on 04/17/2022. He is on a general medical floor, is in no acute distress, he is on 1 L nasal cannula oxygenating 97%. This patient should be weaned from nasal cannula. The patient's respiratory status has improved. His CBC continues to show no leukocytosis,his WBC count is 4.9, hemoglobin 12, hematocrit 36, platelets 153,000. His INR is almost therapeutic at 1.8, and his on warfarin therapy. BMP is stable with a Sodium of 139, potassium 4.5, chloride 105, bicarb dioxide 29, BUN 23, creatinine 1, glucose 146. No new chest x-ray from today. His preliminary sputum culture is negative so far. Blood culture remains negative at 48 hours. He is receiving DuoNeb inhalations and by mouth Augmentin. His azithromycin and ceftriaxone were discontinued. Overall I am happy with this patient's progress, and we will clear this patient from a pulmonary standpoint. Objective - Vital Signs Vital signs: Vital Signs Temp 98.1 F 04/17/22 07:18 Pulse 52 L 04/17/22 07:18 Resp 17 04/17/22 07:18 BP 153/74 04/17/22 07:18 Pulse Ox 97 04/17/22 09:27 FiO2 Intake & Output 04/16/22 04/17/22 04/17/22 18:59 06:59 18:59 Intake Total 780 290 Balance 780 290 Intake: Intake, IV Titration 780 290 Amount Azithromycin 500 mg In 250 Sodium Chloride 0.9% 250 ml @ 250 mls/hr IVPB Q24H [facility] Rx#:[id number] Sodium Chloride 0.9% 1, 400 240 000 ml @ 100 mls/hr IV . Q10H [facility] Rx#:[id number] Sodium Chloride 0.9% 1, 80 000 ml @ 20 mls/hr IV . Q24H [facility] Rx#:[id number] cefTRIAXone 1 gm In 50 50 Sodium Chloride 0.9% 50 ml @ 100 mls/hr IVPB Q24H [facility] Rx#:[id number] Other: # Voids 2 # Bowel Movements 1 - Exam GENERAL EXAM: Alert, pleasant, morbidly obese 52-year-old male appearing stated age, on 2 L nasal cannula, comfortable in no apparent distress. HEAD: Normocephalic. EYES: Normal reaction of pupils, equal size. NOSE: Clear with pink turbinates. THROAT: Crowding of the posterior pharynx. No erythema or exudates. NECK: Short. No masses, no JVD. CHEST: No chest wall deformity. LUNGS: Equal air entry with scattered crackles in the right bases. CVS: S1 and S2 normal with no audible murmur, regular rhythm. ABDOMEN: No hepatosplenomegaly, normal bowel sounds, no guarding or rigidity. SPINE: No scoliosis or deformity SKIN: No rashes CENTRAL NERVOUS SYSTEM: No focal deficits, tone is normal in all 4 extremities. EXTREMITIES: There is changes of chronic venous stasis, chronic lower extremity edema. No clubbing, no cyanosis. Peripheral pulses are intact. - Labs CBC & Chem 7: 04/17/22 04:58 04/17/22 04:58 Labs: Abnormal Lab Results - Last 24 Hours (Table) 04/16/22 04/16/22 04/17/22 Range/Units 17:19 20:11 04:58 RBC 4.00 L (4.30-5.90) m/uL Hgb 12.3 L (13.0-17.5) gm/dL Hct 36.2 L (39.0-53.0) % PT (9.0-12.0) sec INR (<1.2) BUN (9-20) mg/dL Glucose (74-99) mg/dL POC Glucose (mg/dL) 323 H 319 H (70-110) mg/dL 04/17/22 04/17/22 04/17/22 Range/Units 04:58 04:58 07:16 RBC (4.30-5.90) m/uL Hgb (13.0-17.5) gm/dL Hct (39.0-53.0) % PT 18.2 H (9.0-12.0) sec INR 1.8 H (<1.2) BUN 23 H (9-20) mg/dL Glucose 146 H (74-99) mg/dL POC Glucose (mg/dL) 158 H (70-110) mg/dL 04/17/22 Range/Units 11:16 RBC (4.30-5.90) m/uL Hgb (13.0-17.5) gm/dL Hct (39.0-53.0) % PT (9.0-12.0) sec INR (<1.2) BUN (9-20) mg/dL Glucose (74-99) mg/dL POC Glucose (mg/dL) 196 H (70-110) mg/dL Microbiology - Last 24 Hours (Table) 04/14/22 12:55 Blood Culture - Preliminary Blood No Growth after 48 hours 04/14/22 13:10 Blood Culture - Preliminary Blood No Growth after 48 hours 04/14/22 22:20 Gram Stain - Preliminary Sputum Sputum Culture - Preliminary Assessment and Plan Assessment: Acute hypoxemic respiratory failure secondary to an early suspected community- acquired pneumonia of the right lower lobe. Procalcitonin negative. I'll continue by mouth Augmentin. Patient is feeling better. Obstructive sleep apnea with chronic hypercapnic respiratory failure secondary to morbid obesity with a history of an AHI of 108, initially on BiPAP . Recently converted to an AVAPS Trilogy ventilator History of factor V Leiden, previous DVT of the left lower extremity 15 years ago. Was maintained on warfarin, supple therapeutic with an INR 1.2 today, managed by primary. Currently on Lovenox. Diabetes mellitus2, uncontrolled insulin-dependent Acute kidney injury with presenting creatinine of 1.27 suspect secondary to dehydration History of ventilatory dependent respiratory failure in October 2021 Diabetic peripheral neuropathy History of Charcot syndrome of the right foot History of diabetic ulcers of the left foot Chronic venous stasis of the lower extremities with edema Hypertension Hyperlipidemia Chronic pain syndrome History of anxiety/depression History of diabetic gastroparesis History of previous CoVID infection in 2020 Plan: The patient was seen and evaluated Chest x-ray, labs and medications reviewed Continue oral Augmentin in preparation for discharge. Continue bronchodilators D-dimer within normal limits Procalcitonin negative Pharmacy to dose warfarin. bridge therapy per primary. The patient is cleared for discharge from a pulmonary standpoint. I have personally seen and examined the patient, performed the documentation and the assessment and plan as written. Number of minutes spent on the visit: 10. Time with Patient: Less than 30
[2022-04-17] MEDS ORDERED: WARFARIN 2 MG TAB PO ONE (18:00)
[2022-04-17] MEDS ORDERED: WARFARIN 10 MG TAB PO ONE (18:00)
--- NOTE | 2022-04-20 09:10 | P.DS ---
Providers Date of admission: 04/14/22 13:08 Expected date of discharge: 04/17/22 Attending physician: Stephan Griffiths Consults: 04/14/22 13:11 Consult Physician Routine Consulting Provider: Rosy Veras Consult Reason/Comments: pneumonia Do you want consulting provider notified?: Yes Primary care physician: Dl Rosaline [facility] Hospital Course: Final diagnosis bilateral community-acquired pneumonia Mild acute kidney injury could be prerenal Diabetes mellitus, with hyperglycemia present on admission History of deep venous thrombosis on warfarin, with subtherapeutic INR History of GERD Hyperlipidemia Hypertension History of osteoarthritis History of sleep apnea History of gastroparesis and hiatal hernia History of dysphagia due to esophageal scarring factor V leiden Chronic back pain due to bone pain pump History of migraine History of anxiety and depression, not an active issue Discharge disposition Patient is being discharged in a stable condition with guarded prognosis to home. Patient will follow-up with Dr. Waggoner in the outpatient setting upon discharge. Patient is to follow-up with pulmonary as scheduled. Patient is to continue on a prednisone taper along with completing his course of Augmentin in the outpatient setting. Total time taken is greater than 35 minutes. Hospital course This is a 52-year-old male who was recently admitted admitted with shortness of breath and cough found to have pneumonia and being closely monitored. Patient followed by pulmonary and has cleared him for outpatient follow-up. Patient was initiated on antibiotics outpatient and will continue a prednisone taper along with continuing Augmentin to complete the course. Patient reports to feeling better and extremely anxious about going home. Please refer to other consultations notes for further HPI. Currently no reports of chest pain, worsening shortness of breath, or palpitations. Patient is afebrile. No reports of nausea or vomiting and patient is tolerating diet. Patient will be discharged home today. Guarded prognosis. Physical exam: Gen: This is a 52-year-old male awake, alert and oriented 3, well-developed, well-nourished, morbidly obese HEENT: Head is atraumatic, normocephalic. Pupils equal, round. Sclerae is anicteric. NECK: Supple. No JVD. No lymphadenopathy. No thyromegaly. LUNGS: Diminished breath sounds bilaterally with some scattered rhonchi. No intercostal retractions. HEART: S1, S2 are muffled ABDOMEN: Soft. Bowel sounds are present. No masses. No tenderness. EXTREMITIES: No pedal edema. No calf tenderness. NEUROLOGICAL: Patient is awake, alert and oriented x3. Cranial nerves 2 through 12 are grossly intact. Please refer to medication reconciliation sheet for a list of medications. The impression and plan of care has been dictated by Opal Soliman, Nurse Practitioner as directed. Dr. Lee MD I have performed a history and examination and MDM of this patient, discussed the same with the dictator, and agree with the dictator's assessment and plan as written ,documented as a scribe. Based on total visit time, I have performed more than 50% of the visit. Patient Condition at Discharge: Fair Plan - Discharge Summary Discharge Rx Participant: No New Discharge Prescriptions: New Apixaban [Eliquis] 5 mg PO BID #60 tab predniSONE 10 mg PO DIRECTED #30 tab Ipratropium-Albuterol Nebulize [Duoneb 0.5 mg-3 mg/3 ml Soln] 3 ml INHALATION RT-QID 30 Days #120 each guaiFENesin-DM 100-10MG/5ML [Robitussin DM] 10 ml PO Q6HR PRN #240 ml PRN Reason: Cough Continue Simvastatin [Zocor] 20 mg PO HS Latanoprost Ophth [Xalatan 0.005%] 1 drop BOTH EYES HS Loratadine [Claritin] 10 mg PO DAILY metFORMIN HCL [Glucophage] 1,000 mg PO BID Morphine Pain Pump 1 dose INTRATHECA CONTINUOUS Lubiprostone [Amitiza] 24 mcg PO BID Acetaminophen Tab [Tylenol] 650 mg PO Q6HR PRN tab PRN Reason: Mild Pain Or Fever > 100.5 Pregabalin [Lyrica] 200 mg PO BID #6 cap Insulin Lispro [humaLOG Kwikpen] 5 unit SQ AC-TID Insulin Glargine,Hum.rec.anlog [Lantus Solostar Pen] 60 units SQ HS carBAMazepine [Carbatrol] 100 mg PO BID Fluticasone Propionate [Flovent Hfa 220 mcg] 2 puff INHALATION RT-BID Ferrous Sulfate [Iron (65 MG Elemental)] 325 mg PO BID SUMAtriptan succinate [Imitrex] 50 mg PO DAILY PRN PRN Reason: Migraine Headache Furosemide [Lasix] 40 mg PO DAILY lisinopriL [Zestril] 2.5 mg PO DAILY Omeprazole 20 mg PO BID Isosorbide Mononitrate ER [Imdur] 30 mg PO DAILY Aspirin 81 mg PO DAILY ALPRAZolam [Xanax] 0.25 mg PO DAILY PRN PRN Reason: Anxiety Potassium Chloride [Klor-Con M10] 10 meq PO DAILY Amoxic-Pot Clav 875-125Mg [Augmentin 875-125] 1 tab PO Q12HR Discontinued Warfarin Sodium 10 mg PO HS Discharge Medication List Latanoprost Ophth [Xalatan 0.005%] 1 drop BOTH EYES HS 01/23/14 [History] Simvastatin [Zocor] 20 mg PO HS 01/23/14 [History] Loratadine [Claritin] 10 mg PO DAILY 01/28/16 [History] metFORMIN HCL [Glucophage] 1,000 mg PO BID 01/28/16 [History] Morphine Pain Pump 1 dose INTRATHECA CONTINUOUS 05/05/17 [History] Ferrous Sulfate [Iron (65 MG Elemental)] 325 mg PO BID 10/25/20 [History] Fluticasone Propionate [Flovent Hfa 220 mcg] 2 puff INHALATION RT-BID 10/25/20 [History] Furosemide [Lasix] 40 mg PO DAILY 10/25/20 [History] SUMAtriptan succinate [Imitrex] 50 mg PO DAILY PRN 10/25/20 [History] Lubiprostone [Amitiza] 24 mcg PO BID 05/15/21 [History] lisinopriL [Zestril] 2.5 mg PO DAILY 05/15/21 [History] Acetaminophen Tab [Tylenol] 650 mg PO Q6HR PRN tab 07/04/21 [Rx] Pregabalin [Lyrica] 200 mg PO BID #6 cap 07/04/21 [Rx] Isosorbide Mononitrate ER [Imdur] 30 mg PO DAILY 11/10/21 [History] Omeprazole 20 mg PO BID 11/10/21 [History] ALPRAZolam [Xanax] 0.25 mg PO DAILY PRN 04/14/22 [History] Amoxic-Pot Clav 875-125Mg [Augmentin 875-125] 1 tab PO Q12HR 04/14/22 [History] Aspirin 81 mg PO DAILY 04/14/22 [History] Insulin Glargine,Hum.rec.anlog [Lantus Solostar Pen] 60 units SQ HS 04/14/22 [History] Insulin Lispro [humaLOG Kwikpen] 5 unit SQ AC-TID 04/14/22 [History] Potassium Chloride [Klor-Con M10] 10 meq PO DAILY 04/14/22 [History] carBAMazepine [Carbatrol] 100 mg PO BID 04/14/22 [History] Apixaban [Eliquis] 5 mg PO BID #60 tab 04/16/22 [Rx] Ipratropium-Albuterol Nebulize [Duoneb 0.5 mg-3 mg/3 ml Soln] 3 ml INHALATION RT-QID 30 Days #120 each 04/17/22 [Rx] guaiFENesin-DM 100-10MG/5ML [Robitussin DM] 10 ml PO Q6HR PRN #240 ml 04/17/22 [Rx] predniSONE 10 mg PO DIRECTED #30 tab 04/17/22 [Rx] Follow up Appointment(s)/Referral(s): Dl Waggoner MD [Primary Care Provider] - 1-2 days Misa Kelley MD [STAFF PHYSICIAN] - 1 Week Patient Instructions/Handouts: Prednisone (By mouth), Apixaban (By mouth) Activity/Diet/Wound Care/Special Instructions: Activity Limited until follow-up Follow-up with primary care provider on discharge Follow-up with pulmonary outpatient Continue taking medications as prescribed Monitor blood sugars and treat accordingly with sliding scale Discharge Disposition: HOME SELF-CARE
== END 2022-04-17 13:37 | disposition home or self-care (01) | DRG 193 ==
LOC: EC 11:01 → 4SSUR 13:08 → 5NMEDONC 13:24
PROVIDERS: ADMIT Internal Medicine; ATTEND Internal Medicine
DX: J18.9 Pneumonia, unspecified organism (principal); J96.01 Acute respiratory failure with hypoxia; D68.51 Activated protein C resistance; E66.2 Morbid (severe) obesity with alveolar hypoventilation; J44.0 Chronic obstructive pulmonary disease with (acute) lower respiratory infection; J96.12 Chronic respiratory failure with hypercapnia; N17.9 Acute kidney failure, unspecified; Z68.43 Body mass index [BMI] 50.0-59.9, adult; E11.42 Type 2 diabetes mellitus with diabetic polyneuropathy; E11.43 Type 2 diabetes mellitus with diabetic autonomic (poly)neuropathy; E11.51 Type 2 diabetes mellitus with diabetic peripheral angiopathy without gangrene; E11.610 Type 2 diabetes mellitus with diabetic neuropathic arthropathy; E11.65 Type 2 diabetes mellitus with hyperglycemia; F17.210 Nicotine dependence, cigarettes, uncomplicated; G89.4 Chronic pain syndrome; H54.8 Legal blindness, as defined in USA; I25.10 Atherosclerotic heart disease of native coronary artery without angina pectoris; E11.621 Type 2 diabetes mellitus with foot ulcer; Z20.822 Contact with and (suspected) exposure to COVID-19; I11.0 Hypertensive heart disease with heart failure; I50.9 Heart failure, unspecified; Z99.81 Dependence on supplemental oxygen; K76.0 Fatty (change of) liver, not elsewhere classified; J11.00 Influenza due to unidentified influenza virus with unspecified type of pneumonia; I87.8 Other specified disorders of veins; M54.9 Dorsalgia, unspecified; K31.84 Gastroparesis; E78.5 Hyperlipidemia, unspecified; G43.909 Migraine, unspecified, not intractable, without status migrainosus; R13.10 Dysphagia, unspecified; M19.90 Unspecified osteoarthritis, unspecified site; I25.2 Old myocardial infarction; Z71.6 Tobacco abuse counseling; Z79.01 Long term (current) use of anticoagulants; Z79.4 Long term (current) use of insulin; Z79.51 Long term (current) use of inhaled steroids; Z79.82 Long term (current) use of aspirin; Z79.84 Long term (current) use of oral hypoglycemic drugs; Z79.899 Other long term (current) drug therapy; Z80.52 Family history of malignant neoplasm of bladder; Z82.49 Family history of ischemic heart disease and other diseases of the circulatory system; Z83.3 Family history of diabetes mellitus; Z86.16 Personal history of COVID-19; Z86.718 Personal history of other venous thrombosis and embolism; Z96.89 Presence of other specified functional implants; Z86.19 Personal history of other infectious and parasitic diseases
CPT/HCPCS: 36415; 71046; 80048; 80053; 83605; 83735; 83880; 84145; 84484; 85025; 85379; 85610; 85730; 87040; 87070; 87205; 87636; 93005; 94640; 94760; 96361; 96365; 96375; 99285

== ENCOUNTER 2022-05-11 12:02 | Emergency (ER) | payer OTHER ==
[2022-05-11 13:53] VITALS: RESP 18; TEMP 98
--- NOTE | 2022-05-11 15:19 | XR ---
EXAMINATION TYPE: XR knee complete LT DATE OF EXAM: 05/11/2022 COMPARISON: 02/26/2018 HISTORY: Pain TECHNIQUE: Three views are submitted. FINDINGS: Joint spaces are preserved. Osseous structures are intact. No acute fracture seen. Diffuse osteope hasmukh. There is mild narrowing of medial compartment knee joint. There is diffuse subcutaneous edema. C alcifications in the soft tissues are likely vascular. IMPRESSION: 1. No acute fracture or dislocation. 2. Diffuse soft tissue edema.
--- NOTE | 2022-05-11 15:21 | XR ---
EXAMINATION TYPE: XR ribs LT w pa chest xray DATE OF EXAM: 05/11/2022 COMPARISON: NONE HISTORY: Pain TECHNIQUE: Frontal view of the chest and 4 views of the left ribs cemented FINDINGS: Limited inspiration with bilateral subsegmental areas of consolidation. No sizable pneumoth orax. Heart size normal. Hypertrophic and degenerative changes of the spine. Subtle deformity involvi ng the anterior lateral margin of the left sixth rib suspicious for hairline fracture. Hypertrophic a nd degenerative change of the spine. IMPRESSION: 1. Subtle deformity along the anterior margin of the left sixth rib suspicious for fracture. There al so may be slight expansion of the anterior margin of the sixth and seventh anterior ribs. Recommend s hort-term follow-up CT scan. 2. Bilateral areas of subsegmental atelectasis or infiltrate. No sizable pneumothorax.
[2022-05-11 15:47] LABS: Basophils # (A) 0.1 k/uL (0-0.2); Basophils % (A) 1 %; Eosinophils # (A) 0.4 k/uL (0-0.7); Eosinophils % (A) 7 %; HCT 35.7 % (39.0-53.0); HGB 12.4 gm/dL (13.0-17.5); Lymphocytes # (A) 1.3 k/uL (1.0-4.8); Lymphocytes % (A) 20 %; MCH 30.3 pg (25.0-35.0); MCHC 34.8 g/dL (31.0-37.0); MCV 87.2 fL (80.0-100.0); Mean Platelet Volume 9.2; Monocytes # (A) 0.4 k/uL (0-1.0); Monocytes % (A) 6 %; Neutrophils # (A) 4.1 k/uL (1.3-7.7); Neutrophils % (A) 64 %; Platelet Count 140 k/uL (150-450); RBC 4.09 m/uL (4.30-5.90); RDW 14.8 % (11.5-15.5); WBC 6.4 k/uL (3.8-10.6)
[2022-05-11 15:55] LABS: INR 0.9 (<1.2); Partial Thromboplastin Time 23.5 sec (22.0-30.0); Prothrombin Time 9.8 sec (9.0-12.0)
[2022-05-11 15:57] LABS: Albumin 3.7 g/dL (3.5-5.0); Calcium 8.7 mg/dL (8.4-10.2); Potassium 4.6 mmol/L (3.5-5.1); Total Bilirubin 0.4 mg/dL (0.2-1.3); Total Protein 6.4 g/dL (6.3-8.2)
--- NOTE | 2022-05-11 16:44 | ED ---
Fall HPI - General Chief Complaint: Fall Stated Complaint: fall x2 today, knee/lt side pain Time Seen by Provider: 05/11/22 14:39 Source: patient Mode of arrival: wheelchair - History of Present Illness Initial Comments: This 52-year-old male presents with a complaint of 2 falls today. He apparently was sitting on his walker and fell forward. He is complaining of some pain into his left ribs as well as his left knee. He states that he is unsure why he fell. He just got off balance and landed on the floor. He complains of moderate severity of pain to the left ribs which is worse with movement and deep inspiration. He also complains of some mild tenderness to his left knee. He is still able to ambulate without any significant difficulty. He does have multiple chronic difficulties including obesity and previous surgery for charcoal joints and is lower extremities. He denies any head injury. There is no neck pain or back pain. No other complaints or modifying factors. - Related Data Home Medications Medication Instructions Recorded Confirmed Latanoprost Ophth [Xalatan 0.005%] 1 drop BOTH EYES HS 01/23/14 04/14/22 Simvastatin [Zocor] 20 mg PO HS 01/23/14 04/14/22 Loratadine [Claritin] 10 mg PO DAILY 01/28/16 04/14/22 metFORMIN HCL [Glucophage] 1,000 mg PO BID 01/28/16 04/14/22 Morphine Pain Pump 1 dose INTRATHECA CONTINUOUS 05/05/17 04/14/22 Ferrous Sulfate [Iron (65 MG 325 mg PO BID 10/25/20 04/14/22 Elemental)] Fluticasone Propionate [Flovent 2 puff INHALATION RT-BID 10/25/20 04/14/22 Hfa 220 mcg] Furosemide [Lasix] 40 mg PO DAILY 10/25/20 04/14/22 SUMAtriptan succinate [Imitrex] 50 mg PO DAILY PRN 10/25/20 04/14/22 Lubiprostone [Amitiza] 24 mcg PO BID 05/15/21 04/14/22 lisinopriL [Zestril] 2.5 mg PO DAILY 05/15/21 04/14/22 Isosorbide Mononitrate ER [Imdur] 30 mg PO DAILY 11/10/21 04/14/22 Omeprazole 20 mg PO BID 11/10/21 04/14/22 ALPRAZolam [Xanax] 0.25 mg PO DAILY PRN 04/14/22 04/14/22 Amoxic-Pot Clav 875-125Mg 1 tab PO Q12HR 04/14/22 04/14/22 [Augmentin 875-125] Aspirin 81 mg PO DAILY 04/14/22 04/14/22 Insulin Glargine,Hum.rec.anlog 60 units SQ HS 04/14/22 04/14/22 [Lantus Solostar Pen] Insulin Lispro [humaLOG Kwikpen] 5 unit SQ AC-TID 04/14/22 04/14/22 Potassium Chloride [Klor-Con M10] 10 meq PO DAILY 04/14/22 04/14/22 carBAMazepine [Carbatrol] 100 mg PO BID 04/14/22 04/14/22 Previous Rx's Medication Instructions Recorded Acetaminophen Tab [Tylenol] 650 mg PO Q6HR PRN tab 07/04/21 Pregabalin [Lyrica] 200 mg PO BID #6 cap 07/04/21 Apixaban [Eliquis] 5 mg PO BID #60 tab 04/16/22 Ipratropium-Albuterol Nebulize 3 ml INHALATION RT-QID 30 Days 04/17/22 [Duoneb 0.5 mg-3 mg/3 ml Soln] #120 each guaiFENesin-DM 100-10MG/5ML 10 ml PO Q6HR PRN #240 ml 04/17/22 [Robitussin DM] predniSONE 10 mg PO DIRECTED #30 tab 04/17/22 Allergies Allergy/AdvReac Type Severity Reaction Status Date / Time adhesive Allergy Rash/Hives Verified 05/11/22 13:53 Review of Systems ROS Statement: Those systems with pertinent positive or pertinent negative responses have been documented in the HPI. ROS Other: All systems not noted in ROS Statement are negative. Past Medical History Past Medical History: Blood Disorder, Diabetes Mellitus, Deep Vein Thrombosis (DVT), GERD/Reflux, Hyperlipidemia, Hypertension, Musculoskeletal Disorder, Osteoarthritis (OA), Sleep Apnea/CPAP/BIPAP Additional Past Medical History / Comment(s): IDDM type II, neuropathy bilateral feet with R foot worse, charcot foot R/L, currently sores L foot and is NWB, recent surgery R foot with boot an can wt bear as tolerated, gastroparesis, hiatal hernia, esophageal narrowing (scarring)/past dysphagia/has had dilations, factor V leiden, 2 DVT's L leg, another superficial blood clot L leg, chronic back pain/has pain pump, DDD and bulging discs, legally blind L eye since , migraines, PVD, fatty liver, MEL with trilogy machine. Last Myocardial Infarction Date:: 11/07/21 History of Any Multi-Drug Resistant Organisms: VRE Date of last positivie culture/infection: 07/01/21 MDRO Source:: VRE FOOT Past Surgical History: Tonsillectomy Additional Past Surgical History / Comment(s): R foot/ankle surgery at [facility] with bone removal/hardware inserted, I&D L foot, pain pump insertion, colonoscopy, EGDs with dilations, UVPPP, eye surgery as an infant. Past Anesthesia/Blood Transfusion Reactions: Family History of Problems w/ Anesthesia Additional Past Anesthesia/Blood Transfusion Reaction / Comment(s): STATES "MOTHER CRASHES" "passes out"-with anesthesia,"needs to have a subsystems engineer dose" Past Psychological History: Anxiety, Depression Smoking Status: Never smoker Past Alcohol Use History: None Reported Past Drug Use History: None Reported - Past Family History Father Family Medical History: Cancer Additional Family Medical History / Comment(s): BLADDER CANCER Mother Family Medical History: CVA/TIA, Diabetes Mellitus, Myocardial Infarction (CA) General Exam - General Exam Comments Initial Comments: GENERAL: The patient is well nourished and well hydrated. VITAL SIGNS: Heart rate, blood pressure, respiratory rate reviewed as recorded in nurse's notes. EYES: Pupils are round and reactive. Extraocular movements are intact. No conjunctival / lid redness or swelling. ENT: No external evidence of injury, swelling, or ecchymosis. Airway is patent. Throat is clear. NECK: Nontender. No swelling or evidence of injury. No subcutaneous emphysema. Trachea is midline. No thyroid mass. HEART: Regular rate and rhythm. Good peripheral pulses. LUNGS/CHEST: Breath sounds clear and equal bilaterally. No rales, rhonchi, or wheezes. No ecchymosis, subcutaneous emphysema. There is some tenderness noted to the left mid posterior lateral ribs. ABDOMEN: Abdomen soft without tenderness. No palpable masses or organomegaly. No peritoneal signs. No abdominal wall swelling or ecchymosis. EXTREMITIES: Mild tenderness noted to the left knee diffusely. There is excellent range of motion. There is negative valgus, varus, Priyank, drawer, and Mel testing. Normal muscle tone and function. No thoracolumbar tenderness. NEUROLOGIC: Sensation is grossly intact. Cranial nerve exam reveals face is symmetrical, tongue is midline, speech is clear. SKIN: No abrasions or ecchymosis is noted. No induration or masses noted. PSYCHIATRIC: Alert and oriented. Appropriate behavior and judgment. Course Vital Signs 05/11/22 05/11/22 13:44 17:20 Temperature 98 F Pulse Rate 77 72 Respiratory 18 18 Rate Blood Pressure 123/78 114/89 O2 Sat by Pulse 91 L 96 Oximetry Medical Decision Making - Medical Decision Making Was pt. sent in by a medical professional or institution (, PA, CAMOUFLAGE ASSEMBLER, urgent care, hospital, or snf...) When possible be specific @ -[No] Did you speak to anyone other than the patient for history (EMS, parent, family, police, friend...)? What history was obtained from this source @ -Day also discussed history with with gives additional details in regards to his injuries. Did you review nursing and triage notes (agree or disagree)? Why? @ -[I reviewed and agree with nursing and triage notes] Were old charts reviewed (outside hosp., previous admission, EMS record, old EKG, old radiological studies, urgent care reports/EKG's, snf records)? Report findings @ -[No old charts were reviewed] Differential Diagnosis (chest pain, altered mental status, abdominal pain women, abdominal pain men, vaginal bleeding, weakness, fever, dyspnea, syncope, headache, dizziness, GI bleed, back pain, seizure, CVA, palpatations, mental health)? @ -Weakness, multiple falls, knee fracture, knee contusion, rib fracture, rib contusion EKG interpreted by me (3pts min.). @ -[As above] X-rays interpreted by me (1pt min.). @ -X-rays are interpreted by myself and does show possible left sixth and seventh rib fracture which is consistent with radiologist evaluation. The left knee does not show any evidence of fracture. CT interpreted by me (1pt min.). @ -[None done] U/S interpreted by me (1pt. min.). @ -[None done] What testing was considered but not performed or refused? (CT, X-rays, U/S, labs)? Why? @ -[None] What meds were considered but not given or refused? Why? @ -The patient was offered pain medications but refuses stating that he is on a pain contract currently. Did you discuss the management of the patient with other professionals (professionals i.e. , PA, CAMOUFLAGE ASSEMBLER, lab, RT, psych nurse, social work case manager, machine castings plasterer, teacher, chief informatics officer, caser shoe parts)? Give summary @ -[No] Was smoking cessation discussed for >3mins.? @ -[No] Was critical care preformed (if so, how long)? @ -[No] Were there social determinants of health that impacted care today? How? (Ho melessness, low income, unemployed, alcoholism, drug addiction, transportation, low edu. Level, literacy, decrease access to med. care, fdc, rehab)? @ -[No] Was there de-escalation of care discussed even if they declined (Discuss DNR or withdrawal of care, Hospice)? DNR status @ -[No] What co-morbidities impacted this encounter? (DM, HTN, Smoking, COPD, CAD, Cancer, CVA, ARF, Chemo, Hep., AIDS, mental health diagnosis, sleep apnea, morbid obesity)? @ -The patient has chronic pain issues, charcoal at joints to bilateral feet, and morbid obesity, diabetes mellitus Was patient admitted / discharged? Hospital course, mention meds given and route, prescriptions, significant lab abnormalities, going to OR and other pertinent info. @ -The patient was seen and examined. Due to the recurrent falls and apparent weakness, he also had laboratory drawn. This does show a degree of hyperglycemia and he does have a history of diabetes mellitus. There is no overt significant other laboratory abnormalities. Overall, it is felt as though he stable for discharge home. Follow precautions are discussed in detail. Follow-up with his primary care recommended. Close follow-up with his pain management doctor also discussed Undiagnosed new problem with uncertain prognosis? @ -Diagnosed new problem Drug Therapy requiring intensive monitoring for toxicity (Heparin, Nitro, Insulin, Cardizem)? @ -[No] Were any procedures done? @ -[No] Diagnosis/symptom? @ -Recurrent falls, weakness, morbid obesity, left rib fracture, left knee contusion, diabetes mellitus Acute, or Chronic, or Acute on Chronic? @ -Acute Uncomplicated (without systemic symptoms) or Complicated (systemic symptoms)? @ -Uncomplicated Side effects of treatment? @ -[No] Exacerbation, Progression, or Severe Exacerbation? @ -Exacerbation Poses a threat to life or bodily function? How? (Chest pain, USA, CA, pneumonia, PE, COPD, DKA, ARF, appy, cholecystitis, CVA, Diverticulitis, Homicidal, Suicidal, threat to staff... and all critical care pts) @ -[No] - Lab Data Result diagrams: 05/11/22 15:31 05/11/22 15:31 Lab Results 05/11/22 05/11/22 05/11/22 Range/Units 15:31 15:31 15:31 WBC 6.4 (3.8-10.6) k/uL RBC 4.09 L (4.30-5.90) m/uL Hgb 12.4 L (13.0-17.5) gm/dL Hct 35.7 L (39.0-53.0) % MCV 87.2 (80.0-100.0) fL MCH 30.3 (25.0-35.0) pg MCHC 34.8 (31.0-37.0) g/dL RDW 14.8 (11.5-15.5) % Plt Count 140 L (150-450) k/uL MPV 9.2 Neutrophils % 64 % Lymphocytes % 20 % Monocytes % 6 % Eosinophils % 7 % Basophils % 1 % Neutrophils # 4.1 (1.3-7.7) k/uL Lymphocytes # 1.3 (1.0-4.8) k/uL Monocytes # 0.4 (0-1.0) k/uL Eosinophils # 0.4 (0-0.7) k/uL Basophils # 0.1 (0-0.2) k/uL PT 9.8 (9.0-12.0) sec INR 0.9 (<1.2) APTT 23.5 (22.0-30.0) sec Sodium 136 L (137-145) mmol/L Potassium 4.6 (3.5-5.1) mmol/L Chloride 98 (98-107) mmol/L Carbon Dioxide 33 H (22-30) mmol/L Anion Gap 5 mmol/L BUN 32 H (9-20) mg/dL Creatinine 1.13 (0.66-1.25) mg/dL Est GFR (CKD-EPI)AfAm 86 (>60 ml/min/1.73 sqM) Est GFR (CKD-EPI)NonAf 75 (>60 ml/min/1.73 sqM) Glucose 314 H (74-99) mg/dL Calcium 8.7 (8.4-10.2) mg/dL Total Bilirubin 0.4 (0.2-1.3) mg/dL AST 22 (17-59) U/L ALT 32 (4-49) U/L Alkaline Phosphatase 161 H (38-126) U/L Ammonia (<30) umol/L Total Protein 6.4 (6.3-8.2) g/dL Albumin 3.7 (3.5-5.0) g/dL 05/11/22 Range/Units 15:31 WBC (3.8-10.6) k/uL RBC (4.30-5.90) m/uL Hgb (13.0-17.5) gm/dL Hct (39.0-53.0) % MCV (80.0-100.0) fL MCH (25.0-35.0) pg MCHC (31.0-37.0) g/dL RDW (11.5-15.5) % Plt Count (150-450) k/uL MPV Neutrophils % % Lymphocytes % % Monocytes % % Eosinophils % % Basophils % % Neutrophils # (1.3-7.7) k/uL Lymphocytes # (1.0-4.8) k/uL Monocytes # (0-1.0) k/uL Eosinophils # (0-0.7) k/uL Basophils # (0-0.2) k/uL PT (9.0-12.0) sec INR (<1.2) APTT (22.0-30.0) sec Sodium (137-145) mmol/L Potassium (3.5-5.1) mmol/L Chloride (98-107) mmol/L Carbon Dioxide (22-30) mmol/L Anion Gap mmol/L BUN (9-20) mg/dL Creatinine (0.66-1.25) mg/dL Est GFR (CKD-EPI)AfAm (>60 ml/min/1.73 sqM) Est GFR (CKD-EPI)NonAf (>60 ml/min/1.73 sqM) Glucose (74-99) mg/dL Calcium (8.4-10.2) mg/dL Total Bilirubin (0.2-1.3) mg/dL AST (17-59) U/L ALT (4-49) U/L Alkaline Phosphatase (38-126) U/L Ammonia <9 (<30) umol/L Total Protein (6.3-8.2) g/dL Albumin (3.5-5.0) g/dL Disposition Clinical Impression: Fall, Knee sprain, Rib fracture, Hyperglycemia, Morbid obesity, Weakness Disposition: HOME SELF-CARE Condition: Fair Instructions (If sedation given, give patient instructions): Knee Sprain (ED), Rib Fracture (ED), Fall Prevention (ED) Additional Instructions: Please call your pain doctor for additional pain medication recommendations. Is patient prescribed a controlled substance at d/c from ED?: No Referrals: Dl Waggoner MD [Primary Care Provider] - 1-2 days Time of Disposition: 16:43
[2022-05-11 17:21] VITALS: BP 114/89; PULSE 72
== END 2022-05-11 17:20 | disposition home or self-care (01) ==
LOC: EC 12:02
DX: S22.32XA Fracture of one rib, left side, initial encounter for closed fracture (principal); S83.92XA Sprain of unspecified site of left knee, initial encounter; E11.65 Type 2 diabetes mellitus with hyperglycemia; E11.43 Type 2 diabetes mellitus with diabetic autonomic (poly)neuropathy; K31.84 Gastroparesis; E11.40 Type 2 diabetes mellitus with diabetic neuropathy, unspecified; E66.01 Morbid (severe) obesity due to excess calories; K21.9 Gastro-esophageal reflux disease without esophagitis; F41.9 Anxiety disorder, unspecified; F32.A Depression, unspecified; I10 Essential (primary) hypertension; Z79.82 Long term (current) use of aspirin; Z79.4 Long term (current) use of insulin; Z79.899 Other long term (current) drug therapy; Z91.048 Other nonmedicinal substance allergy status; Z90.89 Acquired absence of other organs; W18.30XA Fall on same level, unspecified, initial encounter; Y92.009 Unspecified place in unspecified non-institutional (private) residence as the place of occurrence of the external cause
CPT/HCPCS: 36415; 80053; 82140; 85025; 85610; 85730; 99283

== ENCOUNTER 2022-05-14 10:25 | Emergency (ER) | payer OTHER ==
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
--- NOTE | 2022-05-14 11:38 | XR ---
EXAMINATION TYPE: XR KUB DATE OF EXAM: 05/14/2022 COMPARISON: NONE HISTORY: Pain TECHNIQUE: One view abdominal series FINDINGS: The osseous structures are intact. The bowel gas pattern is nonspecific. Extensive retained fecal de bris throughout the colon. There are occasional air fluid level. Metallic device overlying the left i liac bone soft tissues. No suspicious calcifications. Subtle deformity along the anterior margin of t he left eighth rib suspicious for hairline fracture. Slight expansion of bone also again noted. IMPRESSION: 1. Correlate for constipation. See above.
[2022-05-14 11:57] VITALS: RESP 18
[2022-05-14 12:13] LABS: Appearance,Urine Clear (Clear); Bilirubin,Urine Negative (Negative); Blood,Urine Negative (Negative); Color,Urine Yellow; Glucose,Urine (UA) 4+ (Negative); Ketones,Urine Negative (Negative); Leukocyte Esterase,Urine Negative (Negative); Nitrite,Urine Negative (Negative); Protein,Urine Negative (Negative); Specific Gravity,Urine 1.018 (1.001-1.035); Urobilinogen,Urine <2.0 mg/dL (<2.0)
[2022-05-14 14:41] VITALS: BP 124/68; PULSE 80; TEMP 98.8
== END 2022-05-14 14:39 | disposition home or self-care (01) ==
LOC: EC 10:25
DX: K59.00 Constipation, unspecified (principal); R33.9 Retention of urine, unspecified; F41.9 Anxiety disorder, unspecified; F32.A Depression, unspecified; E11.9 Type 2 diabetes mellitus without complications; I10 Essential (primary) hypertension; K21.9 Gastro-esophageal reflux disease without esophagitis; E78.5 Hyperlipidemia, unspecified; M19.90 Unspecified osteoarthritis, unspecified site; G47.30 Sleep apnea, unspecified; Z79.4 Long term (current) use of insulin; Z79.82 Long term (current) use of aspirin; Z79.899 Other long term (current) drug therapy
CPT/HCPCS: 51702; 74018; 81003; 99284

== ENCOUNTER 2022-07-16 15:26 | Emergency (ER) | payer OTHER ==
[2022-07-16 15:39] VITALS: RESP 20
[2022-07-16] MEDS ORDERED: BACITRACIN OINT 1 EACH PACKET TOPICAL ONE (16:20)
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
[2022-07-16 17:17] VITALS: BP 145/89; PULSE 89; TEMP 98.8
== END 2022-07-16 17:17 | disposition home or self-care (01) ==
LOC: EC 15:26
DX: Z48.01 Encounter for change or removal of surgical wound dressing (principal); D68.51 Activated protein C resistance; E11.51 Type 2 diabetes mellitus with diabetic peripheral angiopathy without gangrene; E78.5 Hyperlipidemia, unspecified; F32.A Depression, unspecified; F41.9 Anxiety disorder, unspecified; G47.33 Obstructive sleep apnea (adult) (pediatric); I10 Essential (primary) hypertension; I25.2 Old myocardial infarction; K21.9 Gastro-esophageal reflux disease without esophagitis; M19.90 Unspecified osteoarthritis, unspecified site; Z79.01 Long term (current) use of anticoagulants; Z79.4 Long term (current) use of insulin; Z79.51 Long term (current) use of inhaled steroids; Z79.82 Long term (current) use of aspirin; Z79.84 Long term (current) use of oral hypoglycemic drugs; Z79.899 Other long term (current) drug therapy; Z88.8 Allergy status to other drugs, medicaments and biological substances
CPT/HCPCS: 99283

== ENCOUNTER 2022-07-26 12:24 | Emergency (ER) | payer OTHER ==
[2022-07-26] MEDS ORDERED: HYDROmorphone 0.5 MG/0.5 ML SYRINGE IVP STA (13:06)
[2022-07-26 13:35] LABS: INR 0.9 (<1.2); Partial Thromboplastin Time 23.7 sec (22.0-30.0); Prothrombin Time 9.6 sec (9.0-12.0)
[2022-07-26 13:37] LABS: Albumin 3.5 g/dL (3.5-5.0); Calcium 8.5 mg/dL (8.4-10.2); Potassium 4.8 mmol/L (3.5-5.1); Total Bilirubin 0.3 mg/dL (0.2-1.3); Total Protein 6.3 g/dL (6.3-8.2)
[2022-07-26 13:42] LABS: Basophils % (A) 0 %; Eosinophils # (A) 0.2 k/uL (0-0.7); Eosinophils % (A) 3 %; HCT 28.1 % (39.0-53.0); Lymphocytes # (A) 0.7 k/uL (1.0-4.8); Lymphocytes % (A) 9 %; MCH 31.2 pg (25.0-35.0); MCV 91.7 fL (80.0-100.0); Mean Platelet Volume 8.7; Monocytes # (A) 0.6 k/uL (0-1.0); Monocytes % (A) 7 %; Neutrophils # (A) 6.8 k/uL (1.3-7.7); Neutrophils % (A) 80 %; Platelet Count 273 k/uL (150-450); Poikilocytosis Slight; RBC 3.06 m/uL (4.30-5.90); RDW 15.5 % (11.5-15.5); WBC 8.5 k/uL (3.8-10.6)
[2022-07-26 13:44] LABS: HGB 9.5 gm/dL (13.0-17.5)
--- NOTE | 2022-07-26 13:47 | XR ---
EXAMINATION TYPE: XR chest 2V DATE OF EXAM: 07/26/2022 COMPARISON: Chest x-ray and CT June 29, 2022 HISTORY: Cough and shortness of breath. TECHNIQUE: Frontal and lateral views of the chest are obtained. FINDINGS: Persistent low lung volumes with left greater than the right central increased opacities s imilar to prior. The cardiac silhouette size is stable and upper limits of normal. The osseous str uctures are intact. IMPRESSION: Chronic changes without new acute pulmonary process.
[2022-07-26 14:05] VITALS: PULSE 79
[2022-07-26] MEDS ORDERED: cefTRIAXone IN SWFI 1,000 MG/10 ML SYRINGE IVP STA (14:37)
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
[2022-07-26 15:18] VITALS: BP 98/61; RESP 20; TEMP 98.4
== END 2022-07-26 15:00 | disposition home or self-care (01) ==
LOC: EC 12:24
DX: D64.9 Anemia, unspecified (principal); J40 Bronchitis, not specified as acute or chronic; E11.9 Type 2 diabetes mellitus without complications; K21.9 Gastro-esophageal reflux disease without esophagitis; E78.5 Hyperlipidemia, unspecified; I10 Essential (primary) hypertension; M19.90 Unspecified osteoarthritis, unspecified site; Z86.718 Personal history of other venous thrombosis and embolism; I25.2 Old myocardial infarction; F32.A Depression, unspecified; F41.9 Anxiety disorder, unspecified; Z91.048 Other nonmedicinal substance allergy status; Z79.82 Long term (current) use of aspirin; Z79.84 Long term (current) use of oral hypoglycemic drugs; Z79.899 Other long term (current) drug therapy
CPT/HCPCS: 36415; 93005; 83880; 80053; 83605; 84484; 85025; 85610; 85730; 87040; 71046; 99285; 96374; 96375; J0696; J1170

== ENCOUNTER 2022-07-31 09:41 | Inpatient (IN) | payer OTHER ==
[2022-07-31] MEDS ORDERED: HYDROmorphone 1 MG/ML 1 ML SYRINGE IVP STA (10:45)
--- NOTE | 2022-07-31 11:02 | XR ---
EXAMINATION TYPE: XR tibia fibula LT DATE OF EXAM: 07/31/2022 CLINICAL HISTORY: Pain and swelling. Nonhealing wound. TECHNIQUE: Two views of the left leg are obtained. COMPARISON: None. FINDINGS: Moderate to severe diffuse subcutaneous edema is present. Lucency consistent with nonhealin g wound along the anterior aspect of the mid tibia extends to the anterior margin. No suspicious bony destruction or abnormal periosteal reaction to suggest acute osteomyelitis. No acute displaced fract ure. Some degenerative change in the knee and ankle joints incidentally seen. IMPRESSION: Large soft tissue ulcer or nonhealing wound without convincing radiographic evidence for acute osteomyelitis. If clinical suspicion persists further investigation with 3 phase bone scan may be warranted.
--- NOTE | 2022-07-31 11:13 | ED ---
General Adult HPI - General Chief complaint: Recheck/Abnormal Lab/Rx Stated complaint: Left leg wound Time Seen by Provider: 07/31/22 10:25 Source: patient, RN notes reviewed, old records reviewed Mode of arrival: ambulatory Limitations: no limitations - History of Present Illness Initial comments: This is a 52-year-old male who has a wound on the left anterior leg and a newly developing also on the bottom of the left foot. Patient was at the wound center today and physician there wanted the patient to come down here and get admitted for possible placement in rehabilitation Center. Patient states he's not been able to safely navigate at home because he continues to be off balance and fall and the wound on the bottom of foot continues to get worse. In the wound center today regarding with this and did want the patient come to the ER to be ad mitted. Patient denies any fever chills per patient states it does hurt quite a bit. Patient denies any new redness swelling or drainage that looks infected. - Related Data Home Medications Medication Instructions Recorded Confirmed Latanoprost Ophth [Xalatan 0.005%] 1 drop BOTH EYES HS 01/23/14 07/31/22 Morphine Pain Pump 1 dose INTRATHECA CONTINUOUS 05/05/17 07/31/22 Ferrous Sulfate [Iron (65 MG 325 mg PO BID 10/25/20 07/31/22 Elemental)] Lubiprostone [Amitiza] 24 mcg PO BID 05/15/21 07/31/22 Omeprazole 20 mg PO DAILY 11/10/21 07/31/22 Potassium Chloride [Klor-Con M10] 10 meq PO DAILY 04/14/22 07/31/22 Atorvastatin [Lipitor] 80 mg PO DAILY 06/03/22 07/31/22 metFORMIN HCL 1,000 mg PO BID 06/03/22 07/31/22 HYDROcodone/APAP 10-325MG [[place] 1 tab PO TID PRN 07/26/22 07/31/22 10-325] Pregabalin [Lyrica] 100 mg PO HS 07/26/22 07/31/22 Dicyclomine [Bentyl] 20 mg PO QID PRN 07/31/22 07/31/22 Insulin Glargine,Hum.rec.anlog 64 units SQ HS 07/31/22 07/31/22 [Lantus Solostar Pen] Loratadine [Claritin] 10 mg PO DAILY 07/31/22 07/31/22 Spironolactone [Aldactone] 25 mg PO DAILY 07/31/22 07/31/22 carBAMazepine [carBAMazepine ER] 100 mg PO DAILY 07/31/22 07/31/22 lisinopriL [Zestril] 2.5 mg PO DAILY 07/31/22 07/31/22 metOLazone [Zaroxolyn] 5 mg PO DAILY 07/31/22 07/31/22 Previous Rx's Medication Instructions Recorded Apixaban [Eliquis] 5 mg PO BID #60 tab 04/16/22 Insulin Lispro [humaLOG Kwikpen] 10 unit SQ AC-TID #0 06/08/22 Tamsulosin [Flomax] 0.4 mg PO PC-BRKFST #30 cap 07/03/22 Doxycycline [Vibramycin] 100 mg PO BID #20 capsule 07/26/22 Allergies Allergy/AdvReac Type Severity Reaction Status Date / Time adhesive Allergy Rash/Hives Verified 07/31/22 11:27 Review of Systems ROS Statement: Those systems with pertinent positive or pertinent negative responses have been documented in the HPI. ROS Other: All systems not noted in ROS Statement are negative. Past Medical History Past Medical History: Blood Disorder, Diabetes Mellitus, Deep Vein Thrombosis (DVT), GERD/Reflux, Hyperlipidemia, Hypertension, Musculoskeletal Disorder, Osteoarthritis (OA), Sleep Apnea/CPAP/BIPAP Additional Past Medical History / Comment(s): IDDM type II, neuropathy bilateral feet with R foot worse, charcot foot R/L, currently sores L foot and is NWB, recent surgery R foot with boot an can wt bear as tolerated, gastroparesis, hiatal hernia, esophageal narrowing (scarring)/past dysphagia/has had dilations, factor V leiden, 2 DVT's L leg, another superficial blood clot L leg, chronic back pain/has pain pump, DDD and bulging discs, legally blind L eye since , migraines, PVD, fatty liver, MEL with trilogy machine. Last Myocardial Infarction Date:: 11/07/21 History of Any Multi-Drug Resistant Organisms: VRE Date of last positivie culture/infection: 07/01/21 MDRO Source:: VRE FOOT Past Surgical History: Tonsillectomy Additional Past Surgical History / Comment(s): R foot/ankle surgery at [facility] with bone removal/hardware inserted, I&D L foot, pain pump insertion, colonoscopy, EGDs with dilations, UVPPP, eye surgery as an infant. Past Anesthesia/Blood Transfusion Reactions: Family History of Problems w/ Anesthesia Additional Past Anesthesia/Blood Transfusion Reaction / Comment(s): STATES "MOT HER CRASHES" "passes out"-with anesthesia,"needs to have a process supervisor dose" Past Psychological History: Anxiety, Depression Smoking Status: Never smoker Past Alcohol Use History: None Reported Past Drug Use History: None Reported - Past Family History Father Family Medical History: Cancer Additional Family Medical History / Comment(s): BLADDER CANCER Mother Family Medical History: CVA/TIA, Diabetes Mellitus, Myocardial Infarction ([place]) General Exam - General Exam Comments Initial Comments: GENERAL: Patient is well-developed and well-nourished. Patient is nontoxic and well- hydrated and is in moderate distress. ENT: Neck is soft and supple. No significant lymphadenopathy is noted. Oropharynx is clear. Moist mucous membranes. Neck has full range of motion without eliciting any pain. EYES: The sclera were anicteric and conjunctiva were pink and moist. Extraocular movements were intact and pupils were equal round and reactive to light. Eyelids were unremarkable. PULMONARY: Unlabored respirations. Good breath sounds bilaterally. No audible rales rhonchi or wheezing was noted. CARDIOVASCULAR: There is a regular rate and rhythm without any murmurs gallops or rubs. ABDOMEN: Soft and nontender with normal bowel sounds. SKIN: There is a large open wound on the anterior left leg does not appear to be infected see no obvious drainage. There also is wound on the bottom of the foot that appears to be a decubitus ulcer. NEUROLOGIC: Patient is alert and oriented x3. Cranial nerves II through XII are grossly intact. Motor and sensory are also intact. Normal speech, volume and content. Symmetrical smile. MUSCULOSKELETAL: Normal extremities with adequate strength and full range of motion. No lower extremity swelling or edema. No calf tenderness. LYMPHATICS: No significant lymphadenopathy is noted PSYCHIATRIC: Normal psychiatric evaluation. Limitations: no limitations Course Vital Signs 07/31/22 07/31/22 10:21 11:30 Temperature 98.7 F Pulse Rate 78 78 Respiratory 18 20 Rate Blood Pressure 120/74 117/68 O2 Sat by Pulse 98 97 Oximetry Medical Decision Making - Medical Decision Making Was pt. sent in by a medical professional or institution (, [facility], MILLING MACHINIST, urgent care, hospital, or penitentiary...) When possible be specific @ -Patient was sent down to us by Dr. Coleman and the wound center Did you speak to anyone other than the patient for history (EMS, parent, family, police, friend...)? What history was obtained from this source @ -Dr. Coleman was contacted and he discussed the case with us Did you review nursing and triage notes (agree or disagree)? Why? @ -I reviewed and agree with nursing and triage notes Were old charts reviewed (outside hosp., previous admission, EMS record, old EK G, old radiological studies, urgent care reports/EKG's, penitentiary records)? Report findings @ -Old charts and lab values were reviewed Differential Diagnosis (chest pain, altered mental status, abdominal pain women, abdominal pain men, vaginal bleeding, weakness, fever, dyspnea, syncope, headache, dizziness, GI bleed, back pain, seizure, CVA, palpatations, mental health, musculoskeletal)? @ -Cellulitis, abscess, decubitus ulcer EKG interpreted by me (3pts min.). @ -As above X-rays interpreted by me (1pt min.). @ -X-ray of the tib-fib was interpreted by myself as no acute abnormalities CT interpreted by me (1pt min.). @ -None done U/S interpreted by me (1pt. min.). @ -None done What testing was considered but not performed or refused? (CT, X-rays, U/S, labs)? Why? @ -None What meds were considered but not given or refused? Why? @ -None Did you discuss the management of the patient with other professionals (professionals i.e. , [facility], MILLING MACHINIST, lab, RT, psych nurse, social work specialist, liability claims representative, teacher, security officers and guards, major case detective)? Give summary @ -I spoke Dr. Alvarez he agreed to admit the patient admitted the patient wrote admitting orders Was smoking cessation discussed for >3mins.? @ -No Was critical care preformed (if so, how long)? @ -No Were there social determinants of health that impacted care today? How? (Homelessness, low income, unemployed, alcoholism, drug addiction, transportation, low edu. Level, literacy, decrease access to med. care, custodial, rehab)? @ -No Was there de-escalation of care discussed even if they declined (Discuss DNR or withdrawal of care, Hospice)? DNR status @ -No What co-morbidities impacted this encounter? (DM, HTN, Smoking, COPD, CAD, Cancer, CVA, ARF, Chemo, Hep., AIDS, mental health diagnosis, sleep apnea, morbid obesity)? @ -Patient has diabetes which will cause more difficult wound healing Was patient admitted / discharged? Hospital course, mention meds given and route, prescriptions, significant lab abnormalities, going to OR and other pertinent info. @ -I examined the wounds none of the wounds looked infected however patient states she's unable goal without being inferior falling over and not able to navigate his home. I spoke with Dr. Alvarez agreed to admit the patient and the patient and I consulted Dr. Fuentes Undiagnosed new problem with uncertain prognosis? @ -No Drug Therapy requiring intensive monitoring for toxicity (Heparin, Nitro, Insulin, Cardizem)? @ -No Were any procedures done? @ -No Diagnosis/symptom? @ -Leg and foot wounds Acute, or Chronic, or Acute on Chronic? @ -Acute Uncomplicated (without systemic symptoms) or Complicated (systemic symptoms)? @ -Complicated Side effects of treatment? @ -No Exacerbation, Progression, or Severe Exacerbation? @ -No Poses a threat to life or bodily function? How? (Chest pain, [place], [place], pneumonia, PE, COPD, DKA, ARF, appy, cholecystitis, CVA, Diverticulitis, Homicidal, Suicidal, threat to staff... and all critical care pts) @ -No - Lab Data Result diagrams: 07/31/22 11:09 07/31/22 11:09 Lab Results 07/31/22 07/31/22 07/31/22 Range/Units 11:09 11:09 11:09 WBC 7.4 (3.8-10.6) k/uL RBC 3.09 L (4.30-5.90) m/uL Hgb 9.6 L (13.0-17.5) gm/dL Hct 28.2 L (39.0-53.0) % MCV 91.3 (80.0-100.0) fL MCH 31.0 (25.0-35.0) pg MCHC 34.0 (31.0-37.0) g/dL RDW 15.1 (11.5-15.5) % Plt Count 275 (150-450) k/uL MPV 7.9 Neutrophils % 78 % Lymphocytes % 11 % Monocytes % 7 % Eosinophils % 2 % Basophils % 0 % Neutrophils # 5.7 (1.3-7.7) k/uL Lymphocytes # 0.8 L (1.0-4.8) k/uL Monocytes # 0.5 (0-1.0) k/uL Eosinophils # 0.2 (0-0.7) k/uL Basophils # 0.0 (0-0.2) k/uL Poikilocytosis Slight Sodium 136 L (137-145) mmol/L Potassium 4.9 (3.5-5.1) mmol/L Chloride 101 (98-107) mmol/L Carbon Dioxide 27 (22-30) mmol/L Anion Gap 8 mmol/L BUN 45 H (9-20) mg/dL Creatinine 1.21 (0.66-1.25) mg/dL Est GFR (CKD-EPI)AfAm 79 (>60 ml/min/1.73 sqM) Est GFR (CKD-EPI)NonAf 69 (>60 ml/min/1.73 sqM) Glucose 237 H (74-99) mg/dL Plasma Lactic Acid Ger 1.1 (0.7-2.0) mmol/L Calcium 8.7 (8.4-10.2) mg/dL Total Bilirubin 0.3 (0.2-1.3) mg/dL AST 24 (17-59) U/L ALT 29 (4-49) U/L Alkaline Phosphatase 217 H (38-126) U/L Total Protein 6.5 (6.3-8.2) g/dL Albumin 3.5 (3.5-5.0) g/dL Disposition Clinical Impression: Leg wound, left, Wound of left foot Disposition: ADMITTED IP TO THIS HOSP Referrals: Dl Waggoner MD [Primary Care Provider] - 1-2 days [facility] [NON-STAFF] - 1-2 days Time of Disposition: 12:46
[2022-07-31] MEDS ORDERED: KETOROLAC 15 MG/ML 1 ML VIAL IVP STA (11:32)
[2022-07-31 11:37] LABS: Basophils % (A) 0 %; Eosinophils # (A) 0.2 k/uL (0-0.7); Eosinophils % (A) 2 %; HCT 28.2 % (39.0-53.0); HGB 9.6 gm/dL (13.0-17.5); Lymphocytes # (A) 0.8 k/uL (1.0-4.8); Lymphocytes % (A) 11 %; MCV 91.3 fL (80.0-100.0); Mean Platelet Volume 7.9; Monocytes # (A) 0.5 k/uL (0-1.0); Monocytes % (A) 7 %; Neutrophils # (A) 5.7 k/uL (1.3-7.7); Neutrophils % (A) 78 %; Platelet Count 275 k/uL (150-450); Poikilocytosis Slight; RBC 3.09 m/uL (4.30-5.90); RDW 15.1 % (11.5-15.5); WBC 7.4 k/uL (3.8-10.6)
[2022-07-31 12:02] LABS: Albumin 3.5 g/dL (3.5-5.0); Calcium 8.7 mg/dL (8.4-10.2); Potassium 4.9 mmol/L (3.5-5.1); Total Bilirubin 0.3 mg/dL (0.2-1.3); Total Protein 6.5 g/dL (6.3-8.2)
[2022-07-31] MEDS ORDERED: HYDROmorphone 0.5 MG/0.5 ML SYRINGE IVP STA (12:46)
[2022-07-31] MEDS ORDERED: SODIUM CHLORIDE 0.9% 1,000 ML IV ONE (12:47)
[2022-07-31] MEDS ORDERED: DICYCLOMINE 20 MG TAB PO PRN (14:29)
[2022-07-31] MEDS ORDERED: MELATONIN 3 MG TABLET PO PRN (14:31)
[2022-07-31] MEDS ORDERED: NALOXONE 0.4 MG/ML 1 ML VIAL IV PRN (14:31)
[2022-07-31] MEDS ORDERED: ONDANSETRON 4 MG/2 ML VIAL IVP PRN (14:31)
[2022-07-31] MEDS ORDERED: DEXTROSE 50% SYRINGE 50 ML IVP PRN ×2 (14:32)
--- NOTE | 2022-07-31 14:49 | P.HPIM ---
History of Present Illness H&P Date: 07/31/22 Chief Complaint: Leg wound Chief Complaint: Abdominal pain This is a pleasant 52-year-old male , follows with Dr. Waggoner. patient has a right Charcot foot and osteomyelitis in October 2020. Chronic stable medical conditions include diabetes, GERD, peripheral neuropathy, hypertension, hyperlipidemia, factor V Leyden mutation on anticoagulation, diab etic gastroparesis, decreased vision in the left eye, depression. Chronic pain syndrome on morphine pump. Patient follows with Dr. Coleman at the wound care center. Has wounds on the left lower extremity including the wound on the plantar surface and now wound in the anterior jacob left side. Dr. Coleman send the patient down for further management. Patient not able to weight-bear on the foot. Denies any fever and chills. Appetite is fair. Some pain. Review of systems: GEN.: Tired EYES: None HEENT: None NECK: None RESPIRATORY: As above CARDIOVASCULAR: As above GASTROINTESTINAL: As above GENITOURINARY: None MUSCULOSKELETAL: None LYMPHATICS: None HEMATOLOGICAL: None PSYCHIATRY: None NEUROLOGICAL: Neuropathy Past medical history to include: Bilateral Charcot foot, with left foot osteomyelitis with surgery in January 2021 , diabetes, GERD, peripheral neuropathy, hypertension, hyperlipidemia, factor 5 Leyden mutation on anticoagulation, diabetic gastroparesis, decreased vision in the left eye, depression, history of 2 DVTs, sleep apnea uses BiPAP machine environmental ALLERGIES, fatty liver, herniated disc in the lower back, pain pump implant, narrowing of esophagus Social history: . No history of alcohol or smoking. Physical examination: VITAL SIGNS: 98.7, 75, 18, 1 34 x 50, 94% room air GENERAL: Up in a chair, uncomfortable EYES: Pupils equal. Conjunctiva normal. HEENT: External appearance of nose and ears normal, oral cavity grossly normal. NECK: JVD unable to assess; masses not palpable. HEART: First and second heart sounds are normal; edema present LUNGS: Respiratory rate normal; diminished breath sounds, ABDOMEN: Soft, generalized mid-lower abdominal tenderness, no guarding rigidity, liver spleen not palpable, no masses palpable. PSYCH: Alert 3, mood affect anxious MUSCULOSKELETAL:No Clubbing/cyanosis;muscles-grossly intact. fungal changes in the nails of the foot. Dry skin. Right Charcot foot. Wound in the left leg anteriorly on the jacob, left plantar wound. NEUROLOGICAL: [Cranial nerves grossly intact; no facial asymmetry, decreased sensation distally. INVESTIGATIONS, reviewed in the clinical context: White count 7.4 hemoglobin 9.6 platelets 275 sodium 136 potassium 4.9 BUN 45 creatinine 1.2 Tibia-fibula x-ray: Large soft tissue ulcer/wound. No obvious evidence of acute osteomyelitis. Assessment and plan: -Diabetic lower extremity wound. One on the anterior jacob down to the bone. One on the plantar surface. No drainage. No fever no chills. Dr. Fuentes spoke to the wound care nurse Olimpia. Patient will be followed by Dr. Coleman. -chronic congestive heart failure with preserved LV function: Fluid restriction -Bilateral foot Charcot foot from diabetes -Morbid obesity, BMI 49.6 Weight loss measures and follow with PCP -Diabetes mellitus type 2, chronically on insulin uncontrolled with hyperglycemia : Levemir 54 units at night. Follow Accu-Cheks. Sliding scale -GERD On Pepcid -Diabetic peripheral neuropathy, -Hyperlipidemia Lipitor -Chronic pain syndrome. morphine pain pump. Lyrica -Essential hypertension Cardizem CD 180 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 Eliquis -Hepatic steatosis, nonalcoholic fatty liver disease -Herniated disc in the lumbar spine Pain medications when necessary -Partial blindness of left eye -Diabetic gastroparesis -Full code Resume all medications. Follow Accu-Cheks. Patient to be forwarded by Dr. Coleman. radiation control worker. Past Medical History Past Medical History: Blood Disorder, Diabetes Mellitus, Deep Vein Thrombosis (DVT), GERD/Reflux, Hyperlipidemia, Hypertension, Musculoskeletal Disorder, Osteoarthritis (OA), Sleep Apnea/CPAP/BIPAP Additional Past Medical History / Comment(s): IDDM type II, neuropathy bilateral feet with R foot worse, charcot foot R/L, currently sores L foot and is NWB, recent surgery R foot with boot an can wt bear as tolerated, gastroparesis, hiatal hernia, esophageal narrowing (scarring)/past dysphagia/has had dilations, factor V leiden, 2 DVT's L leg, another superficial blood clot L leg, chronic back pain/has pain pump, DDD and bulging discs, legally blind L eye since , migraines, PVD, fatty liver, MEL with trilogy machine. Last Myocardial Infarction Date:: 11/07/21 History of Any Multi-Drug Resistant Organisms: VRE Date of last positivie culture/infection: 07/01/21 MDRO Source:: VRE FOOT Past Surgical History: Tonsillectomy Additional Past Surgical History / Comment(s): R foot/ankle surgery at [facility] with bone removal/hardware inserted, I&D L foot, pain pump insertion, colonoscopy, EGDs with dilations, UVPPP, eye surgery as an infant. Past Anesthesia/Blood Transfusion Reactions: Family History of Problems w/ Anesthesia Additional Past Anesthesia/Blood Transfusion Reaction / Comment(s): STATES "MOTHER CRASHES" "passes out"-with anesthesia,"needs to have a mold changer dose" Past Psychological History: Anxiety, Depression Smoking Status: Never smoker Past Alcohol Use History: None Reported Past Drug Use History: None Reported - Past Family History Father Family Medical History: Cancer Additional Family Medical History / Comment(s): BLADDER CANCER Mother Family Medical History: CVA/TIA, Diabetes Mellitus, Myocardial Infarction ([place]) Medications and Allergies Home Medications Medication Instructions Recorded Confirmed Type Latanoprost Ophth [Xalatan 0.005%] 1 drop BOTH EYES HS 01/23/14 07/31/22 History Morphine Pain Pump 1 dose INTRATHECA CONTINUOUS 05/05/17 07/31/22 History Ferrous Sulfate [Iron (65 MG 325 mg PO QID 10/25/20 07/31/22 History Elemental)] Lubiprostone [Amitiza] 24 mcg PO BID 05/15/21 07/31/22 History Omeprazole 20 mg PO DAILY 11/10/21 07/31/22 History Potassium Chloride [Klor-Con M10] 10 meq PO DAILY 04/14/22 07/31/22 History Apixaban [Eliquis] 5 mg PO BID #60 tab 04/16/22 07/31/22 Rx Atorvastatin [Lipitor] 80 mg PO DAILY 06/03/22 07/31/22 History metFORMIN HCL 1,000 mg PO BID 06/03/22 07/31/22 History Insulin Lispro [humaLOG Kwikpen] 10 unit SQ AC-TID #0 06/08/22 07/31/22 Rx Tamsulosin [Flomax] 0.4 mg PO PC-BRKFST #30 cap 07/03/22 07/31/22 Rx Doxycycline [Vibramycin] 100 mg PO BID #20 capsule 07/26/22 07/31/22 Rx HYDROcodone/APAP 10-325MG [[place] 1 tab PO TID PRN 07/26/22 07/31/22 History 10-325] Pregabalin [Lyrica] 100 mg PO HS 07/26/22 07/31/22 History Dicyclomine [Bentyl] 20 mg PO QID PRN 07/31/22 07/31/22 History Insulin Glargine,Hum.rec.anlog 64 units SQ HS 07/31/22 07/31/22 History [Lantus Solostar Pen] Loratadine [Claritin] 10 mg PO DAILY 07/31/22 07/31/22 History Spironolactone [Aldactone] 25 mg PO DAILY 07/31/22 07/31/22 History carBAMazepine [carBAMazepine ER] 100 mg PO DAILY 07/31/22 07/31/22 History lisinopriL [Zestril] 2.5 mg PO DAILY 07/31/22 07/31/22 History metOLazone [Zaroxolyn] 5 mg PO DAILY 07/31/22 07/31/22 History Allergies Allergy/AdvReac Type Severity Reaction Status Date / Time adhesive Allergy Rash/Hives Verified 07/31/22 11:27 Physical Exam Vitals: Vital Signs Temp Pulse Resp BP Pulse Ox 07/31/22 14:08 75 18 134/50 94 L 07/31/22 13:06 76 18 136/48 97 07/31/22 11:30 78 20 117/68 97 07/31/22 10:21 98.7 F 78 18 120/74 98 Intake and Output 07/30/22 07/31/22 07/31/22 22:59 06:59 14:59 Other: Weight 139.253 kg Results CBC & Chem 7: 07/31/22 11:09 07/31/22 11:09 Labs: Abnormal Lab Results - Last 24 Hours (Table) 07/31/22 07/31/22 Range/Units 11:09 11:09 RBC 3.09 L (4.30-5.90) m/uL Hgb 9.6 L (13.0-17.5) gm/dL Hct 28.2 L (39.0-53.0) % Lymphocytes # 0.8 L (1.0-4.8) k/uL Sodium 136 L (137-145) mmol/L BUN 45 H (9-20) mg/dL Glucose 237 H (74-99) mg/dL Alkaline Phosphatase 217 H (38-126) U/L
[2022-07-31] MEDS: HYDROcodone/APAP 10-325MG 1 EACH TAB PO PRN ×2 (16:03→23:28)
[2022-07-31 17:11] LABS: Glucose,Whole Blood 269 mg/dL (70-110)
[2022-07-31] MEDS: INSULIN ASPART (NovoLOG) 100 UNIT/ML VIAL SQ SCH ×2 (18:41→18:42)
[2022-07-31] MEDS: MORPHINE PAIN PUMP MISCELLANE SCH (19:55)
[2022-07-31 21:02] LABS: Glucose,Whole Blood 259 mg/dL (70-110)
[2022-07-31] MEDS: NON FORMULARY DRUG (Lubiprostone [Amitiza] 24 MCG Capsule) PO SCH (21:19)
[2022-07-31] MEDS: PREGABALIN 100 MG CAP PO SCH (21:25)
[2022-07-31] MEDS: APIXABAN 5 MG TAB PO SCH (21:25)
[2022-07-31] MEDS: LORazepam 0.5 MG TAB PO PRN (21:25)
[2022-07-31] MEDS: FERROUS SULFATE 325 MG TAB PO SCH (21:26)
[2022-07-31] MEDS: metFORMIN 500 MG TAB PO SCH (21:26)
[2022-07-31] MEDS: INSULIN DETEMIR (LEVEMIR) 100 UNIT/ML SYR SQ SCH (21:26)
[2022-07-31] MEDS: FUROSEMIDE 40 MG TAB PO SCH (21:26)
[2022-07-31] MEDS: LATANOPROST 0.005% OPHTH DROPS 2.5 ML BTL BOTH EYES SCH (21:26)
[2022-08-01] MEDS: LORazepam 0.5 MG TAB PO PRN ×2 (03:49→21:22)
[2022-08-01 07:06] LABS: Glucose,Whole Blood 150 mg/dL (70-110)
[2022-08-01] MEDS: INSULIN ASPART (NovoLOG) 100 UNIT/ML VIAL SQ SCH ×6 (08:26→17:39)
[2022-08-01] MEDS: HYDROcodone/APAP 10-325MG 1 EACH TAB PO PRN ×2 (08:44→18:06)
[2022-08-01] MEDS: APIXABAN 5 MG TAB PO SCH ×2 (08:45→20:35)
[2022-08-01] MEDS: metOLazone 5 MG TAB PO SCH (08:45)
[2022-08-01] MEDS: metFORMIN 500 MG TAB PO SCH ×2 (08:45→20:35)
[2022-08-01] MEDS: carBAMazepine 100 MG TAB.ER.12H PO SCH (08:45)
[2022-08-01] MEDS: FUROSEMIDE 40 MG TAB PO SCH (08:45)
[2022-08-01] MEDS: TAMSULOSIN 0.4 MG CAP.ER.24H PO SCH (08:46)
[2022-08-01] MEDS: FERROUS SULFATE 325 MG TAB PO SCH ×2 (08:46→20:34)
[2022-08-01] MEDS: ATORVASTATIN 80 MG TAB PO SCH (08:46)
[2022-08-01] MEDS: NON FORMULARY DRUG (Lubiprostone [Amitiza] 24 MCG Capsule) PO SCH ×2 (08:46→20:29)
[2022-08-01] MEDS: SPIRONOLACTONE 25 MG TAB PO SCH (08:46)
[2022-08-01] MEDS: PANTOPRAZOLE 40 MG TABLET PO SCH (08:46)
[2022-08-01 11:18] LABS: Glucose,Whole Blood 143 mg/dL (70-110)
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
[2022-08-01 11:52] VITALS: BMI 49.5
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
[2022-08-01] MEDS: FUROSEMIDE 10 MG/ML 4 ML VIAL IV SCH (12:46)
[2022-08-01] MEDS: MORPHINE PAIN PUMP MISCELLANE SCH (12:52)
[2022-08-01] MEDS: ACETAMINOPHEN TAB 325 MG TAB PO PRN (13:27)
--- NOTE | 2022-08-01 16:30 | P.PN ---
Progress Note - Text Progress Note Date: 08/01/22 Chief Complaint: Abdominal pain This is a pleasant 52-year-old male , follows with Dr. Waggoner. patient has a right Charcot foot and osteomyelitis in October 2020. 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 Chronic pain syndrome on morphine pump. Patient follows with Dr. Coleman at the wound care center. Has wounds on the left lower extremity including the wound on the plantar surface and now wound in the anterior jacob left side. Dr. Coleman send the patient down for further management . Patient not able to weight-bear on the foot. Denies any fever and chills. Appetite is fair. Some pain. 08/01/2022: Sitting up in a chair. Left leg wound VAC. Dr. Coleman and found the patient no further pain medications. at the bedside. No BM for 3 days. Lactulose 20 g. Metamucil 6 g daily Active Medications Acetaminophen (Acetaminophen Tab 325 Mg Tab) 650 mg PO Q6HR PRN PRN Reason: Mild Pain or Fever > 100.5 Last Admin: 08/01/22 13:27 Dose: 650 mg Hydrocodone Bitart/Acetaminophen (Hydrocodone/Apap 10-325mg 1 Each Tab) 1 each PO TID PRN PRN Reason: Pain Last Admin: 08/01/22 08:44 Dose: 1 each Apixaban (Apixaban 5 Mg Tab) 5 mg PO BID [facility]; Protocol Last Admin: 08/01/22 08:45 Dose: 5 mg Atorvastatin Calcium (Atorvastatin 80 Mg Tab) 80 mg PO DAILY [facility] Last Admin: 08/01/22 08:46 Dose: 80 mg Calcium Carbonate/Glycine (Calcium Carbonate 500 Mg Chewable) 1,000 mg PO Q4HR PRN PRN Reason: Dyspepsia Carbamazepine (Carbamazepine 100 Mg Tab.Er.12h) 100 mg PO DAILY [facility] Last Admin: 08/01/22 08:45 Dose: 100 mg Dextrose/Water (Dextrose 50% Syringe 50 Ml) 25 ml IVP PER PROTOCOL PRN; Protocol PRN Reason: Hypoglycemia Dextrose/Water (Dextrose 50% Syringe 50 Ml) 50 ml IVP PER PROTOCOL PRN; Protocol PRN Reason: Hypoglycemia Dicyclomine HCl (Dicyclomine 20 Mg Tab) 20 mg PO QID PRN PRN Reason: ibs Ferrous Sulfate (Ferrous Sulfate 325 Mg Tab) 325 mg PO BID [facility] Last Admin: 08/01/22 08:46 Dose: 325 mg Furosemide (Furosemide 10 Mg/Ml 4 Ml Vial) 40 mg IV DAILY [facility] Last Admin: 08/01/22 12:46 Dose: 40 mg Insulin Aspart (Insulin Aspart (Novolog) 100 Unit/Ml Vial) 10 unit SQ AC-TID [facility] Last Admin: 08/01/22 13:04 Dose: 10 unit Insulin Aspart (Insulin Aspart (Novolog) 100 Unit/Ml Vial) 0 unit SQ AC-TID [facility]; Protocol Last Admin: 08/01/22 12:59 Dose: Not Given Insulin Detemir (Insulin Detemir (Levemir) 100 Unit/Ml Syr) 54 unit SQ HS [facility] Last Admin: 07/31/22 21:26 Dose: 54 unit Lactulose (Lactulose 20 Gm/30 Ml Cup) 20 gm PO DAILY PRN PRN Reason: Constipation Lactulose (Lactulose 20 Gm/30 Ml Cup) 20 gm PO ONCE ONE Stop: 08/01/22 16:22 Latanoprost (Latanoprost 0.005% Ophth Drops 2.5 Ml Btl) 1 drops [facility] Last Admin: 07/31/22 21:26 Dose: 1 drops Lisinopril (Lisinopril 2.5 Mg Tab) 2.5 mg PO DAILY [facility] Last Admin: 08/01/22 08:46 Dose: 2.5 mg Lorazepam (Lorazepam 0.5 Mg Tab) 0.5 mg PO Q6HR PRN PRN Reason: Anxiety Last Admin: 08/01/22 03:49 Dose: 0.5 mg Melatonin (Melatonin 3 Mg Tablet) 3 mg PO HS PRN PRN Reason: Insomnia Metformin HCl (Metformin 500 Mg Tab) 1,000 mg PO BID [facility] Last Admin: 08/01/22 08:45 Dose: 1,000 mg Metolazone (Metolazone 5 Mg Tab) 5 mg PO DAILY [facility] Last Admin: 08/01/22 08:45 Dose: 5 mg Naloxone HCl (Naloxone 0.4 Mg/Ml 1 Ml Vial) 0.2 mg IV Q2M PRN PRN Reason: Opioid Reversal Non-Formulary Medication (Lubiprostone [Amitiza]) 24 mcg PO BID [facility] Last Admin: 08/01/22 08:46 Dose: Not Given Morphine Pain Pump 1 (Dose) 1 dose MISCELLANE CONTINUOUS [facility] Last Admin: 08/01/22 12:52 Dose: Not Given Ondansetron HCl (Ondansetron 4 Mg/2 Ml Vial) 4 mg IVP Q8HR PRN PRN Reason: Nausea And Vomiting Pantoprazole Sodium (Pantoprazole 40 Mg Tablet) 40 mg PO DAILY@0730 [facility] Last Admin: 08/01/22 08:46 Dose: 40 mg Pregabalin (Pregabalin 100 Mg Cap) 100 mg PO HS [facility] Last Admin: 07/31/22 21:25 Dose: 100 mg Psyllium Hydrophilic Mucilloid (Psyllium Husk 100% 6 Gm Packet) 6 gm PO DAILY [facility] Spironolactone (Spironolactone 25 Mg Tab) 25 mg PO DAILY [facility] Last Admin: 08/01/22 08:46 Dose: 25 mg Tamsulosin HCl (Tamsulosin 0.4 Mg Cap.Er.24h) 0.4 mg PO PC-BRKFST [facility] Last Admin: 08/01/22 08:46 Dose: 0.4 mg Past medical history to include: Bilateral Charcot foot, with left foot osteomyelitis with surgery in January , diabetes, GERD, peripheral neuropathy, hypertension, hyperlipidemia, factor 5 Leyden mutation on anticoagulation, diabetic gastroparesis, decreased vision in the left eye, depression, history of 2 DVTs, sleep apnea uses BiPAP machine environmental ALLERGIES, fatty liver, herniated disc in the lower back, pain pump implant, narrowing of esophagus Social history: . No history of alcohol or smoking. Physical examination: VITAL SIGNS: 98.5, 81, 20, 133/73, 98% on 2 L GENERAL: Up in a recliner, comfortable EYES: Pupils equal. Conjunctiva normal. HEENT: External appearance of nose and ears normal, oral cavity grossly normal. NECK: JVD unable to assess; masses not palpable. HEART: First and second heart sounds are normal; edema present LUNGS: Respiratory rate normal; diminished breath sounds, ABDOMEN: Soft, generalized mid-lower abdominal tenderness, no guarding rigidity, liver spleen not palpable, no masses palpable. EXTREMITIES: Wound VAC on the left leg, mid distal leg wound PSYCH: Alert 3, mood affect anxious MUSCULOSKELETAL:No Clubbing/cyanosis;muscles-grossly intact. fungal changes in the nails of the foot. Dry skin. Right Charcot foot. Wound in the left leg anteriorly on the jacob, left plantar wound. NEUROLOGICAL: [Cranial nerves grossly intact; no facial asymmetry, decreased sensation distally. INVESTIGATIONS, reviewed in the clinical context: August 01: Troponin I less than 0.012. ProBNP 656 White count 7.4 hemoglobin 9.6 platelets 275 sodium 136 potassium 4.9 BUN 45 creatinine 1.2 Tibia-fibula x-ray: Large soft tissue ulcer/wound. No obvious evidence of acute osteomyelitis. Assessment and plan: -Diabetic left lower extremity wound. One on the anterior jacob down to the bone. One on the plantar surface. No drainage. No fever no chills. Dr. Fuentes spoke to the wound care nurse Olimpia. Being followed by Dr. Coleman. No further change of pain medications per Dr. Coleman. -Acute on chronic congestive heart failure with preserved LV function: Fluid restriction. IV Lasix. Zaroxolyn. Flow overload with cardiology -Bilateral foot Charcot foot from diabetes -Morbid obesity, BMI 49.6 Weight loss measures and follow with PCP -Diabetes mellitus type 2, chronically on insulin uncontrolled with hyperglycemia : Levemir 54 units at night. Follow Accu-Cheks. Sliding scale -GERD On Pepcid -Diabetic peripheral neuropathy, -Hyperlipidemia Lipitor -Chronic pain syndrome. morphine pain pump. Lyrica -Chronic, Bilateral lower extremity venous status, with skin changes -Essential hypertension Cardizem CD 180. 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 Eliquis -Hepatic steatosis, nonalcoholic fatty liver disease -Herniated disc in the lumbar spine Pain medications when necessary -Partial blindness of left eye -Diabetic gastroparesis -Full code Resume all medications. Follow Accu-Cheks. Patient to be forwarded by Dr. Coleman. 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 Pending placement followed by correctional casework specialist
[2022-08-01] MEDS ORDERED: LACTULOSE 20 GM/30 ML CUP PO ONE (17:00)
[2022-08-01 17:14] LABS: Glucose,Whole Blood 211 mg/dL (70-110)
[2022-08-01] MEDS: PSYLLIUM HUSK 100% 6 GM PACKET PO SCH (17:40)
[2022-08-01 20:10] LABS: Glucose,Whole Blood 248 mg/dL (70-110)
[2022-08-01] MEDS: LATANOPROST 0.005% OPHTH DROPS 2.5 ML BTL BOTH EYES SCH (20:34)
[2022-08-01] MEDS: INSULIN DETEMIR (LEVEMIR) 100 UNIT/ML SYR SQ SCH (20:35)
[2022-08-01] MEDS: PREGABALIN 100 MG CAP PO SCH (20:35)
[2022-08-02] MEDS: HYDROcodone/APAP 10-325MG 1 EACH TAB PO PRN ×3 (02:33→20:15)
[2022-08-02 06:14] LABS: African American GFR (CKD) 63 (>60 ml/min/1.73 sqM); Anion Gap 9 mmol/L; Blood Urea Nitrogen 49 mg/dL (9-20); Calcium 8.8 mg/dL (8.4-10.2); Carbon Dioxide 28 mmol/L (22-30); Chloride 102 mmol/L (98-107); Glucose 75 mg/dL (74-99); Non-African American GFR(CKD) 54 (>60 ml/min/1.73 sqM); Sodium 139 mmol/L (137-145)
[2022-08-02 06:17] LABS: Potassium 4.7 mmol/L (3.5-5.1)
[2022-08-02 07:05] LABS: Glucose,Whole Blood 83 mg/dL (70-110)
[2022-08-02] MEDS: INSULIN ASPART (NovoLOG) 100 UNIT/ML VIAL SQ SCH ×6 (07:50→17:35)
[2022-08-02] MEDS: LACTULOSE 20 GM/30 ML CUP PO PRN (08:37)
[2022-08-02] MEDS: metOLazone 5 MG TAB PO SCH (08:38)
[2022-08-02] MEDS: SPIRONOLACTONE 25 MG TAB PO SCH (08:38)
[2022-08-02] MEDS: FERROUS SULFATE 325 MG TAB PO SCH ×2 (08:38→20:17)
[2022-08-02] MEDS: TAMSULOSIN 0.4 MG CAP.ER.24H PO SCH (08:38)
[2022-08-02] MEDS: ATORVASTATIN 80 MG TAB PO SCH (08:38)
[2022-08-02] MEDS: APIXABAN 5 MG TAB PO SCH ×2 (08:38→20:17)
[2022-08-02] MEDS: PANTOPRAZOLE 40 MG TABLET PO SCH (08:38)
[2022-08-02] MEDS: metFORMIN 500 MG TAB PO SCH ×2 (08:38→20:17)
[2022-08-02] MEDS: NON FORMULARY DRUG (Lubiprostone [Amitiza] 24 MCG Capsule) PO SCH ×2 (08:39→20:21)
[2022-08-02] MEDS: PSYLLIUM HUSK 100% 6 GM PACKET PO SCH (08:39)
[2022-08-02] MEDS: ACETAMINOPHEN TAB 325 MG TAB PO PRN ×2 (08:39→23:34)
[2022-08-02] MEDS: carBAMazepine 100 MG TAB.ER.12H PO SCH (08:39)
[2022-08-02] MEDS: FUROSEMIDE 10 MG/ML 4 ML VIAL IV SCH (08:57)
[2022-08-02 11:20] LABS: Glucose,Whole Blood 162 mg/dL (70-110)
--- NOTE | 2022-08-02 12:06 | P.PN ---
Subjective Progress Note Date: 08/02/22 Patient is seen today resting comfortably in the bedside chair. He denies any episodes of chest pain,/pressure or increased shortness of breath. He remains in sinus rhythm on the monitor. Patient will undergo at 2-D echocardiogram tomorrow. He is on a 2000 mL fluid restriction. He is having good output. BUN is 49, creatinine 1.47 today. Will continue with IV Lasix for one more day and transition him to oral Lasix tomorrow. Objective - Vital Signs Vital signs: Vital Signs Temp 97.9 F 08/02/22 07:05 Pulse 74 08/02/22 08:45 Resp 18 08/02/22 08:45 BP 136/74 08/02/22 07:05 Pulse Ox 97 08/02/22 07:05 FiO2 Intake & Output 08/01/22 08/02/22 08/02/22 18:59 06:59 18:59 Intake Total 896 240 Output Total 0991 838 7214 Balance -324 -110 -9260 Weight 139.253 kg Intake: Oral 896 240 Output: Urine 3871 958 5470 Other: Voiding Method Urinal Urinal Urinal # Voids 1 - Exam PHYSICAL EXAM: VITAL SIGNS: Reviewed. GENERAL: Well-developed in no acute distress. HEENT: Head is normocephalic. Pupils are equal, round. Sclerae anicteric. Mucous membranes of the mouth are moist. NECK: Supple. No JVD or thyromegaly RESPIRATORY: Respirations even and unlabored. Lungs diminished to auscultation bilaterally. CARDIO: Regular rate and rhythm. S1 and S2 heard. No murmur or gallops. EXTREMITIES: Normal range of motion. No clubbing or cyanosis. Peripheral pulses intact. bilateral lower extremity edema and wounds NEURO: Orientated to person, time, place, mood is appropriate - Labs CBC & Chem 7: 07/31/22 11:09 08/02/22 05:26 Labs: Abnormal Lab Results - Last 24 Hours (Table) 08/01/22 08/01/22 08/02/22 Range/Units 17:13 20:07 05:26 BUN 49 H (9-20) mg/dL Creatinine 1.47 H (0.66-1.25) mg/dL POC Glucose (mg/dL) 211 H 248 H (70-110) mg/dL 08/02/22 Range/Units 11:19 BUN (9-20) mg/dL Creatinine (0.66-1.25) mg/dL POC Glucose (mg/dL) 162 H (70-110) mg/dL Microbiology - Last 24 Hours (Table) 07/31/22 11:09 Blood Culture - Preliminary Blood No Growth after 24 hours 07/31/22 11:09 Blood Culture - Preliminary Blood No Growth after 24 hours Assessment and Plan Assessment: chronic diastolic congestive heart failure Hypertension Hyperlipidemia Diabetes Plan: Continue with IV Lasix 40 mg today, transitioned to oral Lasix tomorrow Obtain a 2-D echocardiogram to evaluate LV function and rule out abnormal wall motion Continue with accurate I's and O's and daily weights Continue with all other current cardiac medications Further recommendations based on clinical course The above impression and plan of care have been discussed and directed by the signing physician. Nicole Dailey, nurse practitioner, acting as scribe for signing physician.
[2022-08-02] MEDS: MORPHINE PAIN PUMP MISCELLANE SCH (13:28)
[2022-08-02 17:16] LABS: Glucose,Whole Blood 205 mg/dL (70-110)
--- NOTE | 2022-08-02 17:34 | P.PN ---
Progress Note - Text Progress Note Date: 08/02/22 Chief Complaint: Abdominal pain This is a pleasant 52-year-old male , follows with Dr. Waggoner. patient has a right Charcot foot and osteomyelitis in October 2020. 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 Chronic pain syndrome on morphine pump. Patient follows with Dr. Coleman at the wound care center. Has wounds on the left lower extremity including the wound on the plantar surface and now wound in the anterior jacob left side. Dr. Coleman send the patient down for further management . Patient not able to weight-bear on the foot. Denies any fever and chills. Appetite is fair. Some pain. 08/01/2022: Sitting up in a chair. Left leg wound VAC. Dr. Coleman and found the patient no further pain medications. at the bedside. No BM for 3 days. Lactulose 20 g. Metamucil 6 g daily 08/02/2022: Up in a chair. Left leg wound VAC. Starting diet. Had a BM yesterday. Pending placement to rehab. Remains on IV Lasix 40 mg twice a day. About 3 L in negative fluid balance. Remains on fluid restriction. 2-D echocardiogram tomorrow. Active Medications Acetaminophen (Acetaminophen Tab 325 Mg Tab) 650 mg PO Q6HR PRN PRN Reason: Mild Pain or Fever > 100.5 Last Admin: 08/02/22 08:39 Dose: 650 mg Hydrocodone Bitart/Acetaminophen (Hydrocodone/Apap 10-325mg 1 Each Tab) 1 each PO TID PRN PRN Reason: Pain Last Admin: 08/02/22 12:46 Dose: 1 each Apixaban (Apixaban 5 Mg Tab) 5 mg PO BID [facility]; Protocol Last Admin: 08/02/22 08:38 Dose: 5 mg Atorvastatin Calcium (Atorvastatin 80 Mg Tab) 80 mg PO DAILY [facility] Last Admin: 08/02/22 08:38 Dose: 80 mg Calcium Carbonate/Glycine (Calcium Carbonate 500 Mg Chewable) 1,000 mg PO Q4HR PRN PRN Reason: Dyspepsia Carbamazepine (Carbamazepine 100 Mg Tab.Er.12h) 100 mg PO DAILY [facility] Last Admin: 08/02/22 08:39 Dose: 100 mg Dextrose/Water (Dextrose 50% Syringe 50 Ml) 25 ml IVP PER PROTOCOL PRN; Protocol PRN Reason: Hypoglycemia Dextrose/Water (Dextrose 50% Syringe 50 Ml) 50 ml IVP PER PROTOCOL PRN; Protocol PRN Reason: Hypoglycemia Dicyclomine HCl (Dicyclomine 20 Mg Tab) 20 mg PO QID PRN PRN Reason: ibs Ferrous Sulfate (Ferrous Sulfate 325 Mg Tab) 325 mg PO BID [facility] Last Admin: 08/02/22 08:38 Dose: 325 mg Furosemide (Furosemide 10 Mg/Ml 4 Ml Vial) 40 mg IV BID [facility] Insulin Aspart (Insulin Aspart (Novolog) 100 Unit/Ml Vial) 10 unit SQ AC-TID [facility] Last Admin: 08/02/22 13:04 Dose: 10 unit Insulin Aspart (Insulin Aspart (Novolog) 100 Unit/Ml Vial) 0 unit SQ AC-TID S ; Protocol Last Admin: 08/02/22 13:05 Dose: 3 unit Insulin Detemir (Insulin Detemir (Levemir) 100 Unit/Ml Syr) 54 unit SQ HS [facility] Last Admin: 08/01/22 20:35 Dose: 54 unit Lactulose (Lactulose 20 Gm/30 Ml Cup) 20 gm PO DAILY PRN PRN Reason: Constipation Last Admin: 08/02/22 08:37 Dose: 20 gm Latanoprost (Latanoprost 0.005% Ophth Drops 2.5 Ml Btl) [address] [facility] Last Admin: 08/01/22 20:34 Dose: 1 drops Lisinopril (Lisinopril 2.5 Mg Tab) 2.5 mg PO DAILY [facility] Last Admin: 08/02/22 08:38 Dose: 2.5 mg Lorazepam (Lorazepam 0.5 Mg Tab) 0.5 mg PO Q6HR PRN PRN Reason: Anxiety Last Admin: 08/01/22 21:22 Dose: 0.5 mg Melatonin (Melatonin 3 Mg Tablet) 3 mg PO HS PRN PRN Reason: Insomnia Metformin HCl (Metformin 500 Mg Tab) 1,000 mg PO BID [facility] Last Admin: 08/02/22 08:38 Dose: 1,000 mg Metolazone (Metolazone 5 Mg Tab) 5 mg PO DAILY [facility] Last Admin: 08/02/22 08:38 Dose: 5 mg Naloxone HCl (Naloxone 0.4 Mg/Ml 1 Ml Vial) 0.2 mg IV Q2M PRN PRN Reason: Opioid Reversal Non-Formulary Medication (Lubiprostone [Amitiza]) 24 mcg PO BID [facility] Last Admin: 08/02/22 08:39 Dose: Not Given Morphine Pain Pump 1 (Dose) 1 dose MISCELLANE CONTINUOUS [facility] Last Admin: 08/02/22 13:28 Dose: Not Given Ondansetron HCl (Ondansetron 4 Mg/2 Ml Vial) 4 mg IVP Q8HR PRN PRN Reason: Nausea And Vomiting Pantoprazole Sodium (Pantoprazole 40 Mg Tablet) 40 mg PO DAILY@0730 [facility] Last Admin: 08/02/22 08:38 Dose: 40 mg Pregabalin (Pregabalin 100 Mg Cap) 100 mg PO HS [facility] Last Admin: 08/01/22 20:35 Dose: 100 mg Psyllium Hydrophilic Mucilloid (Psyllium Husk 100% 6 Gm Packet) 6 gm PO DAILY [facility] Last Admin: 08/02/22 08:39 Dose: Not Given Spironolactone (Spironolactone 25 Mg Tab) 25 mg PO DAILY [facility] Last Admin: 08/02/22 08:38 Dose: 25 mg Tamsulosin HCl (Tamsulosin 0.4 Mg Cap.Er.24h) 0.4 mg PO PC-BRKFST [facility] Last Admin: 08/02/22 08:38 Dose: 0.4 mg Past medical history to include: Bilateral Charcot foot, with left foot osteomyelitis with surgery in January 2021 , diabetes, GERD, peripheral neuropathy, hypertension, hyperlipidemia, factor 5 Leyden mutation on anticoagulation, diabetic gastroparesis, decreased vision in the left eye, depression, history of 2 DVTs, sleep apnea uses BiPAP machine environmental ALLERGIES, fatty liver, herniated disc in the lower back, pain pump implant, narrowing of esophagus Social history: . No history of alcohol or smoking. Physical examination: VITAL SIGNS: 98, 72, 18, 1 29 x 70, 96% on 2 L GENERAL: Up in a recliner, comfortable EYES: Pupils equal. Conjunctiva normal. HEENT: External appearance of nose and ears normal, oral cavity grossly normal. NECK: JVD unable to assess; masses not palpable. HEART: First and second heart sounds are normal; edema present LUNGS: Respiratory rate normal; diminished breath sounds, ABDOMEN: Soft, generalized mid-lower abdominal tenderness, no guarding rigidity, liver spleen not palpable, no masses palpable. EXTREMITIES: Wound VAC on the left leg, mid distal leg wound PSYCH: Alert 3, mood affect anxious MUSCULOSKELETAL:No Clubbing/cyanosis;muscles-grossly intact. fungal changes in the nails of the foot. Dry skin. Right Charcot foot. Wound in the left leg anteriorly on the jacob, left plantar wound. NEUROLOGICAL: [Cranial nerves grossly intact; no facial asymmetry, decreased sensation distally. INVESTIGATIONS, reviewed in the clinical context: August 02: Potassium 4.7 creatinine 1.47 August 01: Troponin I less than 0.012. ProBNP 656 White count 7.4 hemoglobin 9.6 platelets 275 sodium 136 potassium 4.9 BUN 45 creatinine 1.2 Tibia-fibula x-ray: Large soft tissue ulcer/wound. No obvious evidence of acute osteomyelitis. Assessment and plan: -Diabetic left lower extremity wound. One on the anterior jacob down to the bone. One on the plantar surface. No drainage. No fever no chills. Dr. Fuentes spoke to the wound care nurse Olimpia. Being followed by Dr. Coleman. No further change of pain medications per Dr. Coleman. -Acute on chronic congestive heart failure with preserved LV function: Fluid restriction. IV Lasix. Zaroxolyn. Follow with cardiology -Bilateral foot Charcot foot from diabetes -Morbid obesity, BMI 49.6 Weight loss measures and follow with PCP -Diabetes mellitus type 2, chronically on insulin uncontrolled with hyperglycemia : Levemir 54 units at night. Follow Accu-Cheks. Sliding scale -Chronic kidney disease, stage III from nephrosclerosis -GERD On Pepcid -Diabetic peripheral neuropathy, -Hyperlipidemia Lipitor -Chronic pain syndrome. morphine pain pump. Lyrica -Chronic, Bilateral lower extremity venous status, with skin changes -Essential hypertension Cardizem CD 180. 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 2-D echocardiogram. Fluid restriction. Wound VAC. Pending placement.
[2022-08-02] MEDS: INSULIN DETEMIR (LEVEMIR) 100 UNIT/ML SYR SQ SCH (20:18)
[2022-08-02] MEDS: LATANOPROST 0.005% OPHTH DROPS 2.5 ML BTL BOTH EYES SCH (20:18)
[2022-08-02] MEDS: PREGABALIN 100 MG CAP PO SCH (20:18)
[2022-08-02 20:20] LABS: Glucose,Whole Blood 245 mg/dL (70-110)
[2022-08-02] MEDS ORDERED: FUROSEMIDE 10 MG/ML 4 ML VIAL IV SCH (21:00)
[2022-08-02] MEDS ORDERED: FUROSEMIDE 80 MG TAB PO STA (21:35)
[2022-08-03] MEDS: HYDROcodone/APAP 10-325MG 1 EACH TAB PO PRN ×3 (04:40→21:50)
[2022-08-03] MEDS: LORazepam 0.5 MG TAB PO PRN (04:45)
[2022-08-03 06:49] LABS: Glucose,Whole Blood 127 mg/dL (70-110)
[2022-08-03] MEDS: INSULIN ASPART (NovoLOG) 100 UNIT/ML VIAL SQ SCH ×6 (07:54→17:37)
[2022-08-03] MEDS: PANTOPRAZOLE 40 MG TABLET PO SCH (07:55)
[2022-08-03] MEDS: FERROUS SULFATE 325 MG TAB PO SCH ×2 (07:55→20:52)
[2022-08-03] MEDS: LACTULOSE 20 GM/30 ML CUP PO PRN (07:55)
[2022-08-03] MEDS: APIXABAN 5 MG TAB PO SCH ×2 (07:55→20:52)
[2022-08-03] MEDS: carBAMazepine 100 MG TAB.ER.12H PO SCH (07:55)
[2022-08-03] MEDS: metFORMIN 500 MG TAB PO SCH ×2 (07:55→20:52)
[2022-08-03] MEDS: FUROSEMIDE 80 MG TAB PO SCH ×2 (07:56→15:33)
[2022-08-03] MEDS: SPIRONOLACTONE 25 MG TAB PO SCH (07:56)
[2022-08-03] MEDS: TAMSULOSIN 0.4 MG CAP.ER.24H PO SCH (07:56)
[2022-08-03] MEDS: NON FORMULARY DRUG (Lubiprostone [Amitiza] 24 MCG Capsule) PO SCH ×2 (07:56→20:54)
[2022-08-03] MEDS: ATORVASTATIN 80 MG TAB PO SCH (07:56)
[2022-08-03] MEDS: metOLazone 5 MG TAB PO SCH (07:56)
[2022-08-03] MEDS: PSYLLIUM HUSK 100% 6 GM PACKET PO SCH (07:57)
--- NOTE | 2022-08-03 09:20 | P.PN ---
Subjective Progress Note Date: 08/03/22 HISTORY OF PRESENT ILLNESS: Patient has a known history of patient has a right Charcot foot and osteomyelitis in October 2020 which he has been undergoing treatment for at the wound care center. Along with diabetes, GERD, peripheral neuropathy, hypertension, hyperlipidemia, factor V Leyden mutation on Eliquis, diabetic gastroparesis, decreased vision in the left eye, depression. Chronic pain syndrome on morphine pump. We will consult to see the patient for CHF. Patient does not follow with a garnett machine operator. He did follow with a garnett machine operator in [place]. But has stopped following with him. Patient was at the wound care center and noted to have increased lower extremity edema and is unable to get around his house independently and was recommended that he come to the ER. Hilda vega is on Lasix, spell lactone, and Zaroxolyn at home. He reports he was not taking his Lasix for the past few days for unknown reasons as to why he stopped taking it. Patient had an echo in May 2022 which showed a normal LV function with mild left ventricular hypertrophy and mild mitral and tricuspid regurgitation. Patient is seen resting comfortably in the chair in no signs of acute distress. On physical exam he is noted to have lower extremity edema worse on the left. Will obtain an EKG. Troponin was negative 1 and BNP is 656. Will obtain a 2-D echocardiogram to evaluate LV function and rule out wall motion abnormalities. Will start patient on IV Lasix. 08/02/2022 Patient is seen today resting comfortably in the bedside chair. He denies any episodes of chest pain,/pressure or increased shortness of breath. He remains in sinus rhythm on the monitor. Patient will undergo at 2-D echocardiogram tomorrow. He is on a 2000 mL fluid restriction. He is having good output. BUN is 49, creatinine 1.47 today. Will continue with IV Lasix for one more day and transition him to oral Lasix tomorrow. 08/03/2022 Patient examined this morning at the bedside. Patient is sitting up in the chair. Patient's creatinine was found to be elevated yesterday and he was transitioned to oral Lasix 80 mg twice a day. Patient denies chest pain or pressure. He denies shortness of breath. He continues to have edema to his bilateral lower extremities. Wound VAC noted to his left lower extremity. PHYSICAL EXAM: VITAL SIGNS: Reviewed. GENERAL: Well-developed in no acute distress. NECK: Supple. No JVD or thyromegaly LUNGS: Respirations even and unlabored. Lungs essentially clear to auscultation bilaterally. HEART: Regular rate and rhythm. S1 and S2 heard. EXTREMITIES: Normal range of motion. No clubbing or cyanosis. Peripheral pu lses intact. Bilateral lower extremity edema with wound VAC noted to left lower extremity ASSESSMENT: Acute on chronic heart failure with preserved ejection fraction, EF 55-60% in May 2022 Acute kidney injury Hypertension Hyperlipidemia Diabetes Morbid obesity Right Charcot foot History of osteomyelitis in October 2020 Peripheral neuropathy Factor V Leyden mutation on anticoagulation Diabetic gastroparesis Chronic pain syndrome Wound VAC to left lower extremity PLAN: Repeat echocardiogram has been ordered. Await results Patient transitioned to oral Lasix yesterday Continue accurate I&O and monitoring of kidney function Continue additional cardiac medications Further recommendations pending patient's course Nurse practitioner note has been reviewed by physician. Signing provider agrees with the documented findings, assessment, and plan of care. Objective - Vital Signs Vital signs: Vital Signs Temp 97.7 F 08/03/22 07:26 Pulse 71 08/03/22 07:26 Resp 22 08/03/22 07:26 BP 122/76 08/03/22 07:26 Pulse Ox 96 08/03/22 07:26 FiO2 Intake & Output 08/02/22 08/03/22 08/03/22 18:59 06:59 18:59 Intake Total 894 240 600 Output Total 1400 800 Balance -506 -560 600 Intake: Oral 894 240 600 Output: Urine 1400 800 Other: Voiding Method Urinal Urinal Urinal # Voids 2 - Labs CBC & Chem 7: 07/31/22 11:09 08/02/22 05:26 Labs: Abnormal Lab Results - Last 24 Hours (Table) 08/02/22 08/02/22 08/02/22 Range/Units 11:19 17:14 20:17 POC Glucose (mg/dL) 162 H 205 H 245 H (70-110) mg/dL 08/03/22 Range/Units 06:48 POC Glucose (mg/dL) 127 H (70-110) mg/dL Microbiology - Last 24 Hours (Table) 07/31/22 11:09 Blood Culture - Preliminary Blood No Growth after 48 hours 04/07/23 11:09 Blood Culture - Preliminary Blood No Growth after 48 hours
[2022-08-03 11:16] LABS: Glucose,Whole Blood 196 mg/dL (70-110)
--- NOTE | 2022-08-03 14:23 | CA ---
Transthoracic Echo Report Name: Jose Lynne Age: 52 Gender: M : 1970 Exam Date: 08/03/2022 08:53 Exam Location: [facility] Ht (in): 66 Wt (lb): 307 Ordering Physician: Nicole Dailey Attending/Referring Phys: Slitting Machine Operator Maureen Casanova RDCS Procedure CPT: Indications: chf Cardiac Hx: Limited study Technical Quality: Technically difficult study Contrast 1: Total Dose (mL): Contrast 2: Total Dose (mL): MEASUREMENTS (Male / Female) Normal Values 2D ECHO RV Internal Dim ED PLAX 3.5 cm DOPPLER TR Peak Velocity 239.4 cm/s TR Peak Gradient 22.9 mmHg Right Ventricular Systolic Press 26.9 mmHg FINDINGS Left Ventricle Limited study. Left ventricular ejection fraction is estimated at 55-60 %. No obvious regional wall motion abnormalities. Right Ventricle Mild right ventricular dilatation. Right ventricular systolic pressure within normal limits. Right Atrium Left Atrium Mitral Valve Aortic Valve Tricuspid Valve Pulmonic Valve Pericardium Normal pericardium. No pericardial effusion. Aorta CONCLUSIONS Normal LV size and systolic function, mildly dilated RV TDS No pericardial effusion Previewed by: Dr. Mike Jasso MD (Electronically Signed) Final Date: 03 August 2022 14:22
[2022-08-03] MEDS: MORPHINE PAIN PUMP MISCELLANE SCH (15:43)
[2022-08-03 16:24] LABS: African American GFR (CKD) 58.3 (60.0-200.0); Blood Urea Nitrogen 46.8 mg/dL (9.0-27.0); Calcium 9.2 mg/dL (8.7-10.3); Carbon Dioxide 26.2 mmol/L (20.0-27.5); Non-African American GFR(CKD) 50.3 (60.0-200.0); Potassium 4.3 mmol/L (3.5-5.5)
[2022-08-03 17:23] LABS: Glucose,Whole Blood 241 mg/dL (70-110)
--- NOTE | 2022-08-03 17:39 | P.PN ---
Progress Note - Text Progress Note Date: 08/03/22 Chief Complaint: Abdominal pain This is a pleasant 52-year-old male , follows with Dr. Waggoner. patient has a right Charcot foot and osteomyelitis in October 2020. 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 Chronic pain syndrome on morphine pump. On home oxygen-2 [address] Patient follows with Dr. Coleman at the wound care center. Has wounds on the left lower extremity including the wound on the plantar surface and now wound in the anterior jacob left side. Dr. Coleman send the patient down for further management. Patient not able to weight-bear on the foot. Denies any fever and chills. Appetite is fair. Some pain. 08/01/2022: Sitting up in a chair. Left leg wound VAC. Dr. Coleman and found the patient no further pain medications. at the bedside. No BM for 3 days. Lactulose 20 g. Metamucil 6 g daily 08/02/2022: Up in a chair. Left leg wound VAC. Starting diet. Had a BM yesterday. Pending placement to rehab. Remains on IV Lasix 40 mg twice a day. About 3 L in negative fluid balance. Remains on fluid restriction. 2-D echocardiogram tomorrow. 08/03/2022: Up in a chair. Eating well. On wound VAC. Per case aide awaiting authorization for placement. Patient being changed over to oral Lasix. Creatinine 1.6 today. We'll hold evening and tomorrow morning dose of Lasix. Review creatinine from tomorrow morning. Active Medications Acetaminophen (Acetaminophen Tab 325 Mg Tab) 650 mg PO Q6HR PRN PRN Reason: Mild Pain or Fever > 100.5 Last Admin: 08/02/22 23:34 Dose: 650 mg Hydrocodone Bitart/Acetaminophen (Hydrocodone/Apap 10-325mg 1 Each Tab) 1 each PO TID PRN PRN Reason: Pain Last Admin: 08/03/22 13:46 Dose: 1 each Apixaban (Apixaban 5 Mg Tab) 5 mg PO BID ROBERTA; Protocol Last Admin: 08/03/22 07:55 Dose: 5 mg Atorvastatin Calcium (Atorvastatin 80 Mg Tab) 80 mg PO DAILY [facility] Last Admin: 08/03/22 07:56 Dose: 80 mg Calcium Carbonate/Glycine (Calcium Carbonate 500 Mg Chewable) 1,000 mg PO Q4HR PRN PRN Reason: Dyspepsia Carbamazepine (Carbamazepine 100 Mg Tab.Er.12h) 100 mg PO DAILY [facility] Last Admin: 08/03/22 07:55 Dose: 100 mg Dextrose/Water (Dextrose 50% Syringe 50 Ml) 25 ml IVP PER PROTOCOL PRN; Protocol PRN Reason: Hypoglycemia Dextrose/Water (Dextrose 50% Syringe 50 Ml) 50 ml IVP PER PROTOCOL PRN; Protocol PRN Reason: Hypoglycemia Dicyclomine HCl (Dicyclomine 20 Mg Tab) 20 mg PO QID PRN PRN Reason: ibs Ferrous Sulfate (Ferrous Sulfate 325 Mg Tab) 325 mg PO BID [facility] Last Admin: 08/03/22 07:55 Dose: 325 mg Furosemide (Furosemide 80 Mg Tab) 80 mg PO BID@0900,1600 [facility] Last Admin: 08/03/22 15:33 Dose: 80 mg Insulin Aspart (Insulin Aspart (Novolog) 100 Unit/Ml Vial) 10 unit SQ AC-TID [facility] Last Admin: 08/03/22 12:47 Dose: 10 unit Insulin Aspart (Insulin Aspart (Novolog) 100 Unit/Ml Vial) 0 unit SQ AC-TID [facility]; Protocol Last Admin: 08/03/22 12:47 Dose: 3 unit Insulin Detemir (Insulin Detemir (Levemir) 100 Unit/Ml Syr) 54 unit SQ HS [facility] Last Admin: 08/02/22 20:18 Dose: 54 unit Lactulose (Lactulose 20 Gm/30 Ml Cup) 20 gm PO DAILY PRN PRN Reason: Constipation Last Admin: 08/03/22 07:55 Dose: 20 gm Latanoprost (Latanoprost 0.005% Ophth Drops 2.5 Ml Btl) 1 drops BOTH EYES [facility] Last Admin: 08/02/22 20:18 Dose: 1 drops Lisinopril (Lisinopril 2.5 Mg Tab) 2.5 mg PO DAILY [facility] Last Admin: 08/03/22 07:56 Dose: 2.5 mg Lorazepam (Lorazepam 0.5 Mg Tab) 0.5 mg PO Q6HR PRN PRN Reason: Anxiety Last Admin: 08/03/22 04:45 Dose: 0.5 mg Melatonin (Melatonin 3 Mg Tablet) 3 mg PO HS PRN PRN Reason: Insomnia Metformin HCl (Metformin 500 Mg Tab) 1,000 mg PO BID [facility] Last Admin: 08/03/22 07:55 Dose: 1,000 mg Metolazone (Metolazone 5 Mg Tab) 5 mg PO DAILY [facility] Last Admin: 08/03/22 07:56 Dose: 5 mg Naloxone HCl (Naloxone 0.4 Mg/Ml 1 Ml Vial) 0.2 mg IV Q2M PRN PRN Reason: Opioid Reversal Non-Formulary Medication (Lubiprostone [Amitiza]) 24 mcg PO BID [facility] Last Admin: 08/03/22 07:56 Dose: Not Given Morphine Pain Pump 1 (Dose) 1 dose MISCELLANE CONTINUOUS [facility] Last Admin: 08/03/22 15:43 Dose: Not Given Ondansetron HCl (Ondansetron 4 Mg/2 Ml Vial) 4 mg IVP Q8HR PRN PRN Reason: Nausea And Vomiting Ondansetron HCl (Ondansetron 4 Mg Tab) 4 mg PO Q8HR PRN PRN Reason: Nausea And Vomiting Pantoprazole Sodium (Pantoprazole 40 Mg Tablet) 40 mg PO DAILY@0730 [facility] Last Admin: 08/03/22 07:55 Dose: 40 mg Pregabalin (Pregabalin 100 Mg Cap) 100 mg PO HS [facility] Last Admin: 08/02/22 20:18 Dose: 100 mg Psyllium Hydrophilic Mucilloid (Psyllium Husk 100% 6 Gm Packet) 6 gm PO DAILY [facility] Last Admin: 08/03/22 07:57 Dose: Not Given Spironolactone (Spironolactone 25 Mg Tab) 25 mg PO DAILY [facility] Last Admin: 08/03/22 07:56 Dose: 25 mg Tamsulosin HCl (Tamsulosin 0.4 Mg Cap.Er.24h) 0.4 mg PO PC-BRKFST [facility] Last Admin: 08/03/22 07:56 Dose: 0.4 mg Past medical history to include: Bilateral Charcot foot, with left foot osteomyelitis with surgery in January 2021 , diabetes, GERD, peripheral neuropathy, hypertension, hyperlipidemia, factor 5 Leyden mutation on anticoagulation, diabetic gastroparesis, decreased vision in the left eye, depression, history of 2 DVTs, sleep apnea uses BiPAP machine environmental ALLERGIES, fatty liver, herniated disc in the lower back, pain pump implant, narrowing of esophagus Social history: . No history of alcohol or smoking. Physical examination: VITAL SIGNS: 98.7, 79, 22, 131/73, 96% on 2 L GENERAL: Up in a recliner, comfortable EYES: Pupils equal. Conjunctiva normal. HEENT: External appearance of nose and ears normal, oral cavity grossly normal. NECK: JVD unable to assess; masses not palpable. HEART: First and second heart sounds are normal; edema present LUNGS: Respiratory rate normal; diminished breath sounds, ABDOMEN: Soft, generalized mid-lower abdominal tenderness, no guarding rigidity, liver spleen not palpable, no masses palpable. EXTREMITIES: Wound VAC on the left leg, mid distal leg wound PSYCH: Alert 3, mood affect anxious MUSCULOSKELETAL:No Clubbing/cyanosis;muscles-grossly intact. fungal changes in the nails of the foot. Dry skin. Right Charcot foot. Wound in the left leg anteriorly on the jacob, left plantar wound. NEUROLOGICAL: [Cranial nerves grossly intact; no facial asymmetry, decreased sensation distally. INVESTIGATIONS, reviewed in the clinical context: 2-D echo: Normal LV size and systolic function. August 03: Potassium 4.3 BUN is 46.8 creatinine 1.6 August 02: Potassium 4.7 creatinine 1.47 August 01: Troponin I less than 0.012. ProBNP 656 White count 7.4 hemoglobin 9.6 platelets 275 sodium 136 potassium 4.9 BUN 45 creatinine 1.2 Tibia-fibula x-ray: Large soft tissue ulcer/wound. No obvious evidence of acute osteomyelitis. Assessment and plan: -Diabetic left lower extremity wound. One on the anterior jacob down to the bone. One on the plantar surface. No drainage. No fever no chills. Dr. Fuentes spoke to the wound care nurse Olimpia. Being followed by Dr. Coleman. No further change of pain medications per Dr. Coleman. -Acute on chronic congestive heart failure with preserved LV function: Fluid restriction. Lasix 80 mg twice a day. Zaroxolyn. Follow with cardiology -Bilateral foot Charcot foot from diabetes -Morbid obesity, BMI 49.6 Weight loss measures and follow with PCP -Diabetes mellitus type 2, chronically on insulin uncontrolled with hyperglycemia : Levemir 54 units at night. Follow Accu-Cheks. Sliding scale -Chronic kidney disease, stage III from nephrosclerosis -Acute kidney injury, prerenal component. Admission creatinine 1.2. Today 1.6 hold Lasix for now. -GERD On Pepcid -Diabetic peripheral neuropathy, -Hyperlipidemia Lipitor -Chronic pain syndrome. morphine pain pump. Lyrica -Chronic, Bilateral lower extremity venous status, with skin changes -Essential hypertension Cardizem CD 180. 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 Resume per creatinine. 2- D echocardiogram. Fluid restriction. Wound VAC. pEnding authorization for placement.
[2022-08-03] MEDS: ACETAMINOPHEN TAB 325 MG TAB PO PRN (18:38)
[2022-08-03 20:05] LABS: Glucose,Whole Blood 291 mg/dL (70-110)
[2022-08-03] MEDS: INSULIN DETEMIR (LEVEMIR) 100 UNIT/ML SYR SQ SCH (20:52)
[2022-08-03] MEDS: PREGABALIN 100 MG CAP PO SCH (20:52)
[2022-08-03] MEDS: LATANOPROST 0.005% OPHTH DROPS 2.5 ML BTL BOTH EYES SCH (20:53)
[2022-08-04] MEDS: ACETAMINOPHEN TAB 325 MG TAB PO PRN ×2 (02:39→22:40)
[2022-08-04 07:09] LABS: Glucose,Whole Blood 139 mg/dL (70-110)
[2022-08-04 07:57] LABS: African American GFR (CKD) 65 (>60 ml/min/1.73 sqM); Anion Gap 9 mmol/L; Blood Urea Nitrogen 57 mg/dL (9-20); Calcium 8.7 mg/dL (8.4-10.2); Carbon Dioxide 29 mmol/L (22-30); Chloride 100 mmol/L (98-107); Glucose 113 mg/dL (74-99); Non-African American GFR(CKD) 56 (>60 ml/min/1.73 sqM); Potassium 4.4 mmol/L (3.5-5.1); Sodium 138 mmol/L (137-145)
[2022-08-04] MEDS: INSULIN ASPART (NovoLOG) 100 UNIT/ML VIAL SQ SCH ×6 (08:11→17:47)
[2022-08-04] MEDS: metFORMIN 500 MG TAB PO SCH ×2 (08:37→20:14)
[2022-08-04] MEDS: TAMSULOSIN 0.4 MG CAP.ER.24H PO SCH (08:37)
[2022-08-04] MEDS: carBAMazepine 100 MG TAB.ER.12H PO SCH (08:37)
[2022-08-04] MEDS: FERROUS SULFATE 325 MG TAB PO SCH ×2 (08:37→20:14)
[2022-08-04] MEDS: APIXABAN 5 MG TAB PO SCH ×2 (08:37→20:13)
[2022-08-04] MEDS: ATORVASTATIN 80 MG TAB PO SCH (08:37)
[2022-08-04] MEDS: PANTOPRAZOLE 40 MG TABLET PO SCH (08:38)
[2022-08-04] MEDS: PSYLLIUM HUSK 100% 6 GM PACKET PO SCH ×2 (08:38→08:40)
[2022-08-04] MEDS: metOLazone 5 MG TAB PO SCH (08:46)
[2022-08-04] MEDS: SPIRONOLACTONE 25 MG TAB PO SCH (08:46)
[2022-08-04] MEDS: FUROSEMIDE 80 MG TAB PO SCH ×2 (08:47→16:45)
[2022-08-04] MEDS: NON FORMULARY DRUG (Lubiprostone [Amitiza] 24 MCG Capsule) PO SCH ×3 (10:05→20:13)
--- NOTE | 2022-08-04 10:46 | P.PN ---
Subjective Progress Note Date: 08/04/22 HISTORY OF PRESENT ILLNESS: Patient has a known history of patient has a right Charcot foot and osteomyelitis in October 2020 which he has been undergoing treatment for at the wound care center. Along with diabetes, GERD, peripheral neuropathy, hypertension, hyperlipidemia, factor V Leyden mutation on Eliquis, diabetic gastroparesis, decreased vision in the left eye, depression. Chronic pain syndrome on morphine pump. We will consult to see the patient for CHF. Patient does not follow with a grain trader. He did follow with a grain trader in [place]. But has stopped following with him. Patient was at the wound care center and noted to have increased lower extremity edema and is unable to get around his house independently and was recommended that he come to the ER. Hilda vega is on Lasix, spell lactone, and Zaroxolyn at home. He reports he was not taking his Lasix for the past few days for unknown reasons as to why he stopped taking it. Patient had an echo in May 2022 which showed a normal LV function with mild left ventricular hypertrophy and mild mitral and tricuspid regurgitation. Patient is seen resting comfortably in the chair in no signs of acute distress. On physical exam he is noted to have lower extremity edema worse on the left. Will obtain an EKG. Troponin was negative 1 and BNP is 656. Will obtain a 2-D echocardiogram to evaluate LV function and rule out wall motion abnormalities. Will start patient on IV Lasix. 08/02/2022 Patient is seen today resting comfortably in the bedside chair. He denies any episodes of chest pain,/pressure or increased shortness of breath. He remains in sinus rhythm on the monitor. Patient will undergo at 2-D echocardiogram tomorrow. He is on a 2000 mL fluid restriction. He is having good output. BUN is 49, creatinine 1.47 today. Will continue with IV Lasix for one more day and transition him to oral Lasix tomorrow. 08/03/2022 Patient examined this morning at the bedside. Patient is sitting up in the chair. Patient's creatinine was found to be elevated yesterday and he was transitioned to oral Lasix 80 mg twice a day. Patient denies chest pain or pressure. He denies shortness of breath. He continues to have edema to his bilateral lower extremities. Wound VAC noted to his left lower extremity. 08/04/2022 Patient examined this morning. Patient is sitting up in chair. He denies chest pain or pressure. He denies shortness of breath. He continues to have lower extremity edema. He is maintained on oral Lasix. Vital signs are stable. Echocardiogram performed revealing ejection fraction 55-60%. PHYSICAL EXAM: VITAL SIGNS: Reviewed. GENERAL: Well-developed in no acute distress. NECK: Supple. No JVD or thyromegaly LUNGS: Respirations even and unlabored. Lungs essentially clear to auscultation bilaterally. HEART: Regular rate and rhythm. S1 and S2 heard. EXTREMITIES: Normal range of motion. No clubbing or cyanosis. Peripheral pulses intact. Bilateral lower extremity edema with wound VAC noted to left lower extremity ASSESSMENT: Acute on chronic heart failure with preserved ejection fraction, EF 55-60% in May 2022 Acute kidney injury Hypertension Hyperlipidemia Diabetes Morbid obesity Right Charcot foot History of osteomyelitis in October 2020 Peripheral neuropathy Factor V Leyden mutation on anticoagulation Diabetic gastroparesis Chronic pain syndrome Wound VAC to left lower extremity PLAN: Continue current cardiac medications Patient is stable from a cardiac standpoint with no further inpatient recommendations We will sign off. Please reconsult if needed. Nurse practitioner note has been reviewed by physician. Signing provider agrees with the documented findings, assessment, and plan of care. Objective - Vital Signs Vital signs: Vital Signs Temp 98 F 08/04/22 07:57 Pulse 73 08/04/22 07:57 Resp 16 08/04/22 07:57 BP 101/67 08/04/22 07:57 Pulse Ox 98 08/04/22 07:57 FiO2 Intake & Output 08/03/22 08/04/22 08/04/22 18:59 06:59 18:59 Intake Total 600 500 Output Total 700 Balance 600 -200 Intake: Oral 600 500 Output: Urine 700 Other: Voiding Method Urinal Urinal Bedside Commode # Voids 2 - Labs CBC & Chem 7: 07/31/22 11:09 08/04/22 06:47 Labs: Abnormal Lab Results - Last 24 Hours (Table) 08/03/22 08/03/22 08/03/22 Range/Units 09:49 11:13 17:21 BUN 46.8 H (9.0-27.0) mg/dL Creatinine 1.6 H (0.6-1.5) mg/dL Est GFR (CKD-EPI)AfAm 58.3 L (60.0-200.0) Est GFR (CKD-EPI)NonAf 50.3 L (60.0-200.0) BUN/Creatinine Ratio 30.00 H (12.00-20.00) Ratio Glucose 181 H (70-110) mg/dL POC Glucose (mg/dL) 196 H 241 H (70-110) mg/dL 08/03/22 08/04/22 08/04/22 Range/Units 20:02 06:47 07:08 BUN 57 H (9.0-27.0) mg/dL Creatinine 1.43 H (0.6-1.5) mg/dL Est GFR (CKD-EPI)AfAm (60.0-200.0) Est GFR (CKD-EPI)NonAf (60.0-200.0) BUN/Creatinine Ratio (12.00-20.00) Ratio Glucose 113 H (70-110) mg/dL POC Glucose (mg/dL) 291 H 139 H (70-110) mg/dL Microbiology - Last 24 Hours (Table) 07/31/22 11:09 Blood Culture - Preliminary Blood No Growth after 72 hours 07/31/22 11:09 Blood Culture - Preliminary Blood No Growth after 72 hours
[2022-08-04 10:57] LABS: Glucose,Whole Blood 176 mg/dL (70-110)
--- NOTE | 2022-08-04 11:39 | P.CONS ---
History of Present Illness - Reason for Consult Consult date: 08/04/22 wound care - History of Present Illness Is a 52-year-old patient with a nonhealing ulceration to the left plantar foot and the left anterior lower extremity. Patient follows with Dr. Coleman in the wound care clinic. Dr. Coleman seen the patient in hospital and has applied a negative pressure wound VAC to the left anterior ulceration. full-thickness wound on the left lower leg to the tibia with necrotic tissue marginally and centrally there is edema of the leg. Patient also has a Charcot ulcer breaking down on the plantar aspect of the foot there is necrotic tissue marginally and centrally with a bulky central area measuring approximately 2 cm in diameter the dermal layer has a opening with hemorrhagic cellular fluid being expressed erythema no edema no clinical sign of infection no odor. Review Of Systems: Constitutional: No fever, no chills, no night sweats. No weight change. No weakness, fatigue or lethargy. No daytime sleepiness. Integumentary:reports wounds, no lesions. No rash or pruritus. No unusual bruising. No change in hair or nails. Physical exam: General Appearance: Alert, cooperative, no distress, appears stated age. Skin: See HPI all other Skin color, texture, tugor normal, no rashes or lesions. Neurologic: Alert oriented x3 Assessment: 1. 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 Type 2 diabetes with diabetic neuropathy 3. Diabetic foot ulcer 4. Nonhealing ulceration other parts of left foot with fatty layer exposure Plan: 1. Continue with negative pressure wound VAC, continue with absorptive silver to the left foot ulceration. Patient will continue to follow in the wound care center with Dr. Coleman on Wednesday. Thank you for the consultation any questions please contact the wound care center DNP note has been reviewed and discussed with Dr. Carrillo and the impression and plan of care has been directed as dictated. Past Medical History Past Medical History: Blood Disorder, Diabetes Mellitus, Deep Vein Thrombosis (DVT), GERD/Reflux, Hyperlipidemia, Hypertension, Musculoskeletal Disorder, Osteoarthritis (OA), Sleep Apnea/CPAP/BIPAP Additional Past Medical History / Comment(s): IDDM type II, neuropathy bilateral feet with R foot worse, charcot foot R/L, currently sores L foot and is NWB, recent surgery R foot with boot an can wt bear as tolerated, gastroparesis, hiatal hernia, esophageal narrowing (scarring)/past dysphagia/has had dilations, factor V leiden, 2 DVT's L leg, another superficial blood clot L leg, chronic back pain/has pain pump, DDD and bulging discs, legally blind L eye since , migraines, PVD, fatty liver, MEL with trilogy machine. Last Myocardial Infarction Date:: 11/07/21 History of Any Multi-Drug Resistant Organisms: VRE Year Discovered:: 07/01/21 MDRO Source:: VRE FOOT Past Surgical History: Tonsillectomy Additional Past Surgical History / Comment(s): R foot/ankle surgery at [facility] with bone removal/hardware inserted, I&D L foot, pain pump insertion, colonoscopy, EGDs with dilations, UVPPP, eye surgery as an infant. Past Anesthesia/Blood Transfusion Reactions: Family History of Problems w/ Anesthesia Additional Past Anesthesia/Blood Transfusion Reaction / Comm: STATES "MOTHER CRASHES" "passes out"-with anesthesia,"needs to have a technical architect dose" Smoking Status: Never smoker - Past Family History Father Family Medical History: Cancer Additional Family Medical History / Comment(s): BLADDER CANCER Mother Family Medical History: CVA/TIA, Diabetes Mellitus, Myocardial Infarction (DE) Medications and Allergies Home Medications Medication Instructions Recorded Confirmed Type Latanoprost Ophth [Xalatan 0.005%] 1 drop BOTH EYES HS 01/23/14 07/31/22 History Morphine Pain Pump 1 dose INTRATHECA CONTINUOUS 05/05/17 07/31/22 History Ferrous Sulfate [Iron (65 MG 325 mg PO QID 10/25/20 07/31/22 History Elemental)] Lubiprostone [Amitiza] 24 mcg PO BID 05/15/21 07/31/22 History Omeprazole 20 mg PO DAILY 11/10/21 07/31/22 History Potassium Chloride [Klor-Con M10] 10 meq PO DAILY 04/14/22 07/31/22 History Apixaban [Eliquis] 5 mg PO BID #60 tab 04/16/22 07/31/22 Rx Atorvastatin [Lipitor] 80 mg PO DAILY 06/03/22 07/31/22 History metFORMIN HCL 1,000 mg PO BID 06/03/22 07/31/22 History Insulin Lispro [humaLOG Kwikpen] 10 unit SQ AC-TID #0 06/08/22 07/31/22 Rx Tamsulosin [Flomax] 0.4 mg PO PC-BRKFST #30 cap 07/03/22 07/31/22 Rx Dicyclomine [Bentyl] 20 mg PO QID PRN 07/31/22 07/31/22 History Insulin Glargine,Hum.rec.anlog 64 units SQ HS 07/31/22 07/31/22 History [Lantus Solostar Pen] Spironolactone [Aldactone] 25 mg PO DAILY 07/31/22 07/31/22 History carBAMazepine [carBAMazepine ER] 100 mg PO DAILY 07/31/22 07/31/22 History lisinopriL [Zestril] 2.5 mg PO DAILY 07/31/22 07/31/22 History metOLazone [Zaroxolyn] 5 mg PO DAILY 07/31/22 07/31/22 History Acetaminophen Tab [Tylenol] 650 mg PO Q6HR PRN tab 08/03/22 Rx Calcium Carbonate [Tums] 1,000 mg PO Q4HR PRN tab 08/03/22 Rx HYDROcodone/APAP 10-325MG [Dermott 1 tab PO TID PRN #9 tab 08/03/22 Rx 10-325] INSULIN ASPART (NovoLOG) [NovoLOG 0 unit SQ AC-TID each 08/03/22 Rx (formulary)] Lactulose [Cephulac] 20 gm PO DAILY PRN ml 08/03/22 Rx Ondansetron [Zofran] 4 mg PO Q8HR PRN tab 08/03/22 Rx Pregabalin [Lyrica] 100 mg PO HS #3 cap 08/03/22 Rx Psyllium Husk 100% [Metamucil 6 gm PO DAILY packet 08/03/22 Rx Packet] Furosemide [Lasix] 80 mg PO DAILY #1 tablet 08/04/22 Rx Allergies Allergy/AdvReac Type Severity Reaction Status Date / Time adhesive Allergy Rash/Hives Verified 07/31/22 11:27 Physical Exam Vitals: Vital Signs Temp Pulse Resp BP Pulse Ox 08/04/22 07:57 98 F 73 16 101/67 98 08/04/22 02:32 98.2 F 74 18 123/73 97 08/03/22 19:40 98.7 F 79 18 95/59 95 08/03/22 11:54 98.7 F 79 22 131/73 96 Intake and Output 08/03/22 08/04/22 08/04/22 22:59 06:59 14:59 Intake Total 500 Output Total 700 Balance -200 Intake: Oral 500 Output: Urine 700 Other: Voiding Method Urinal Bedside Commode # Voids 2 Weight 139.253 kg Results CBC & Chem 7: 07/31/22 11:09 08/04/22 06:47 Labs: Abnormal Lab Results - Last 24 Hours (Table) 08/03/22 08/03/22 08/03/22 Range/Units 09:49 17:21 20:02 BUN 46.8 H (9.0-27.0) mg/dL Creatinine 1.6 H (0.6-1.5) mg/dL Est GFR (CKD-EPI)AfAm 58.3 L (60.0-200.0) Est GFR (CKD-EPI)NonAf 50.3 L (60.0-200.0) BUN/Creatinine Ratio 30.00 H (12.00-20.00) Ratio Glucose 181 H (70-110) mg/dL POC Glucose (mg/dL) 241 H 291 H (70-110) mg/dL 08/04/22 08/04/22 08/04/22 Range/Units 06:47 07:08 10:55 BUN 57 H (9.0-27.0) mg/dL Creatinine 1.43 H (0.6-1.5) mg/dL Est GFR (CKD-EPI)AfAm (60.0-200.0) Est GFR (CKD-EPI)NonAf (60.0-200.0) BUN/Creatinine Ratio (12.00-20.00) Ratio Glucose 113 H (70-110) mg/dL POC Glucose (mg/dL) 139 H 176 H (70-110) mg/dL Microbiology - Last 24 Hours (Table) 07/31/22 11:09 Blood Culture - Preliminary Blood No Growth after 72 hours 07/31/22 11:09 Blood Culture - Preliminary Blood No Growth after 72 hours Assessment and Plan (1) Non-pressure chronic ulcer of other part of left lower leg with necrosis of muscle Current Visit: Yes Status: Acute Code(s): L97.823 - NON-PRS CHRONIC ULCER OTH PRT L LOW LEG W NECROSIS OF MUSCLE SNOMED Code(s): 20871085196661017 (2) Type 2 diabetes mellitus with foot ulcer Current Visit: Yes Status: Acute Code(s): E11.621 - TYPE 2 DIABETES MELLITUS WITH FOOT ULCER; L97.509 - NON-PRESSURE CHRONIC ULCER OTH PRT UNSP FOOT W UNSP SEVERITY SNOMED Code(s): 350724122 (3) Type 2 diabetes mellitus with diabetic nephropathy Current Visit: Yes Status: Acute Code(s): E11.21 - TYPE 2 DIABETES MELLITUS WITH DIABETIC NEPHROPATHY SNOMED Code(s): 41659291 (4) Non-pressure chronic ulcer of other part of left foot with fat layer exposed Current Visit: No Status: Acute Code(s): L97.522 - NON-PRS CHRONIC ULCER OTH PRT LEFT FOOT W FAT LAYER EXPOSED SNOMED Code(s): 55516947549839658
[2022-08-04] MEDS: HYDROcodone/APAP 10-325MG 1 EACH TAB PO PRN ×2 (13:08→20:14)
[2022-08-04] MEDS: MORPHINE PAIN PUMP MISCELLANE SCH (15:39)
[2022-08-04] MEDS: ONDANSETRON 4 MG TAB PO PRN (16:44)
[2022-08-04 17:06] LABS: Glucose,Whole Blood 180 mg/dL (70-110)
[2022-08-04 20:04] LABS: Glucose,Whole Blood 163 mg/dL (70-110)
[2022-08-04] MEDS: PREGABALIN 100 MG CAP PO SCH (20:13)
[2022-08-04] MEDS: INSULIN DETEMIR (LEVEMIR) 100 UNIT/ML SYR SQ SCH (20:15)
[2022-08-04] MEDS: LATANOPROST 0.005% OPHTH DROPS 2.5 ML BTL BOTH EYES SCH (20:17)
--- NOTE | 2022-08-04 21:14 | P.PN ---
Progress Note - Text Progress Note Date: 08/04/22 Chief Complaint: Abdominal pain This is a pleasant 52-year-old male , follows with Dr. Waggoner. patient has a right Charcot foot and osteomyelitis in October 2020. 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 Chronic pain syndrome on morphine pump. On home oxygen-2 L Patient follows with Dr. Coleman at the wound care center. Has wounds on the left lower extremity including the wound on the plantar surface and now wound in the anterior jacob left side. Dr. Coleman send the patient down for further management. Patient not able to weight-bear on the foot. Denies any fever and chills. Appetite is fair. Some pain. 08/01/2022: Sitting up in a chair. Left leg wound VAC. Dr. Coleman and found the patient no further pain medications. at the bedside. No BM for 3 days. Lactulose 20 g. Metamucil 6 g daily 08/02/2022: Up in a chair. Left leg wound VAC. Starting diet. Had a BM yesterday. Pending placement to rehab. Remains on IV Lasix 40 mg twice a day. About 3 L in negative fluid balance. Remains on fluid restriction. 2-D echocardiogram tomorrow. 08/03/2022: Up in a chair. Eating well. On wound VAC. Per casework supervisor awaiting authorization for placement. Patient being changed over to oral Lasix. Creatinine 1.6 today. We'll hold evening and tomorrow morning dose of Lasix. Review creatinine from tomorrow morning. 08/04/2022: Up in a chair. Comfortable. Wound VAC. Still awaiting authorization for rehab placement. Discussed with patient. Active Medications Acetaminophen (Acetaminophen Tab 325 Mg Tab) 650 mg PO Q6HR PRN PRN Reason: Mild Pain or Fever > 100.5 Last Admin: 08/04/22 02:39 Dose: 650 mg Hydrocodone Bitart/Acetaminophen (Hydrocodone/Apap 10-325mg 1 Each Tab) 1 each PO TID PRN PRN Reason: Pain Last Admin: 08/04/22 20:14 Dose: 1 each Apixaban (Apixaban 5 Mg Tab) 5 mg PO BID [facility]; Protocol Last Admin: 08/04/22 20:13 Dose: 5 mg Atorvastatin Calcium (Atorvastatin 80 Mg Tab) 80 mg PO DAILY [facility] Last Admin: 08/04/22 08:37 Dose: 80 mg Calcium Carbonate/Glycine (Calcium Carbonate 500 Mg Chewable) 1,000 mg PO Q4HR PRN PRN Reason: Dyspepsia Carbamazepine (Carbamazepine 100 Mg Tab.Er.12h) 100 mg PO DAILY [facility] Last Admin: 08/04/22 08:37 Dose: 100 mg Dextrose/Water (Dextrose 50% Syringe 50 Ml) 25 ml IVP PER PROTOCOL PRN; Protocol PRN Reason: Hypoglycemia Dextrose/Water (Dextrose 50% Syringe 50 Ml) 50 ml IVP PER PROTOCOL PRN; Protocol PRN Reason: Hypoglycemia Dicyclomine HCl (Dicyclomine 20 Mg Tab) 20 mg PO QID PRN PRN Reason: ibs Ferrous Sulfate (Ferrous Sulfate 325 Mg Tab) 325 mg PO BID [facility] Last Admin: 08/04/22 20:14 Dose: 325 mg Insulin Aspart (Insulin Aspart (Novolog) 100 Unit/Ml Vial) 10 unit SQ AC-TID [facility] Last Admin: 08/04/22 17:47 Dose: 10 unit Insulin Aspart (Insulin Aspart (Novolog) 100 Unit/Ml Vial) 0 unit SQ AC-TID [facility]; Protocol Last Admin: 08/04/22 17:47 Dose: 3 unit Insulin Detemir (Insulin Detemir (Levemir) 100 Unit/Ml Syr) 54 unit SQ HS [facility] Last Admin: 08/04/22 20:15 Dose: 54 unit Lactulose (Lactulose 20 Gm/30 Ml Cup) 20 gm PO DAILY PRN PRN Reason: Constipation Last Admin: 08/03/22 07:55 Dose: 20 gm Latanoprost (Latanoprost 0.005% Ophth Drops 2.5 Ml Btl) 1 drops BOTH EYES HS [facility] Last Admin: 08/04/22 20:17 Dose: 1 drops Lisinopril (Lisinopril 2.5 Mg Tab) 2.5 mg PO DAILY [facility] Last Admin: 08/04/22 08:47 Dose: 2.5 mg Lorazepam (Lorazepam 0.5 Mg Tab) 0.5 mg PO Q6HR PRN PRN Reason: Anxiety Last Admin: 08/03/22 04:45 Dose: 0.5 mg Melatonin (Melatonin 3 Mg Tablet) 3 mg PO HS PRN PRN Reason: Insomnia Metformin HCl (Metformin 500 Mg Tab) 1,000 mg PO BID [facility] Last Admin: 08/04/22 20:14 Dose: 1,000 mg Metolazone (Metolazone 5 Mg Tab) 5 mg PO DAILY [facility] Last Admin: 08/04/22 08:46 Dose: 5 mg Naloxone HCl (Naloxone 0.4 Mg/Ml 1 Ml Vial) 0.2 mg IV Q2M PRN PRN Reason: Opioid Reversal Non-Formulary Medication (Lubiprostone [Amitiza]) 24 mcg PO BID [facility] Last Admin: 08/04/22 20:13 Dose: 24 mcg Morphine Pain Pump 1 (Dose) 1 dose MISCELLANE CONTINUOUS [facility] Last Admin: 08/04/22 15:39 Dose: Not Given Ondansetron HCl (Ondansetron 4 Mg/2 Ml Vial) 4 mg IVP Q8HR PRN PRN Reason: Nausea And Vomiting Ondansetron HCl (Ondansetron 4 Mg Tab) 4 mg PO Q8HR PRN PRN Reason: Nausea And Vomiting Last Admin: 08/04/22 16:44 Dose: 4 mg Pantoprazole Sodium (Pantoprazole 40 Mg Tablet) 40 mg PO DAILY@0730 [facility] Last Admin: 08/04/22 08:38 Dose: 40 mg Pregabalin (Pregabalin 100 Mg Cap) 100 mg PO HS [facility] Last Admin: 08/04/22 20:13 Dose: 100 mg Psyllium Hydrophilic Mucilloid (Psyllium Husk 100% 6 Gm Packet) 6 gm PO DAILY [facility] Last Admin: 08/04/22 08:40 Dose: Not Given Spironolactone (Spironolactone 25 Mg Tab) 25 mg PO DAILY [facility] Last Admin: 08/04/22 08:46 Dose: 25 mg Tamsulosin HCl (Tamsulosin 0.4 Mg Cap.Er.24h) 0.4 mg PO PC-BRKFST [facility] Last Admin: 08/04/22 08:37 Dose: 0.4 mg Past medical history to include: Bilateral Charcot foot, with left foot osteomyelitis with surgery in January 2021 , diabetes, GERD, peripheral neuropathy, hypertension, hyperlipidemia, factor 5 Leyden mutation on anticoagulation, diabetic gastroparesis, decreased vision in the left eye, depression, history of 2 DVTs, sleep apnea uses BiPAP machine environmental ALLERGIES, fatty liver, herniated disc in the lower back, pain pump implant, narrowing of esophagus Social history: . No history of alcohol or smoking. Physical examination: VITAL SIGNS: 98.6, 94, 18, 132.72, 95% on 2 L GENERAL: Up in a recliner, comfortable EYES: Pupils equal. Conjunctiva normal. HEENT: External appearance of nose and ears normal, oral cavity grossly normal. NECK: JVD unable to assess; masses not palpable. HEART: First and second heart sounds are normal; edema present LUNGS: Respiratory rate normal; diminished breath sounds, ABDOMEN: Soft, generalized mid-lower abdominal tenderness, no guarding rigidity, liver spleen not palpable, no masses palpable. EXTREMITIES: Wound VAC on the left leg, mid distal leg wound PSYCH: Alert 3, mood affect anxious MUSCULOSKELETAL:No Clubbing/cyanosis;muscles-grossly intact. fungal changes in the nails of the foot. Dry skin. Right Charcot foot. Wound in the left leg anteriorly on the jacob, left plantar wound. NEUROLOGICAL: [Cranial nerves grossly intact; no facial asymmetry, decreased sensation distally. INVESTIGATIONS, reviewed in the clinical context: August 04: Sodium 138 potassium 4.4 creatinine 1.43 2-D echo: Normal LV size and systolic function. August 03: Potassium 4.3 BUN is 46.8 creatinine 1.6 August 02: Potassium 4.7 creatinine 1.47 August 01: Troponin I less than 0.012. ProBNP 656 White count 7.4 hemoglobin 9.6 platelets 275 sodium 136 potassium 4.9 BUN 45 creatinine 1.2 Tibia-fibula x-ray: Large soft tissue ulcer/wound. No obvious evidence of acute osteomyelitis. Assessment and plan: -Diabetic left lower extremity wound. One on the anterior jacob down to the bone. One on the plantar surface. No drainage. No fever no chills. Dr. Fuentes spoke to the wound care nurse Olimpia. Being followed by Dr. Coleman. No further change of pain medications per Dr. Coleman. -Acute on chronic congestive heart failure with preserved LV function: Fluid restriction. Lasix 80 mg twice a day. Zaroxolyn. Follow with cardiology -Bilateral foot Charcot foot from diabetes -Morbid obesity, BMI 49.6 Weight loss measures and follow with PCP -Diabetes mellitus type 2, chronically on insulin uncontrolled with hyperglycemia : Levemir 54 units at night. Follow Accu-Cheks. Sliding scale -Chronic kidney disease, stage III from nephrosclerosis -Acute kidney injury, prerenal component. Admission creatinine 1.2. Today 1.4. Hold morning Lasix. -GERD On Pepcid -Diabetic peripheral neuropathy, -Hyperlipidemia Lipitor -Chronic pain syndrome. morphine pain pump. Lyrica -Chronic, Bilateral lower extremity venous status, with skin changes -Essential hypertension Cardizem CD 180. 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 Change Lasix to once a day. Discussed with patient
[2022-08-05] MEDS: HYDROcodone/APAP 10-325MG 1 EACH TAB PO PRN ×3 (03:23→18:03)
[2022-08-05 07:15] LABS: Glucose,Whole Blood 89 mg/dL (70-110)
[2022-08-05] MEDS: INSULIN ASPART (NovoLOG) 100 UNIT/ML VIAL SQ SCH ×6 (07:23→18:03)
[2022-08-05] MEDS: ATORVASTATIN 80 MG TAB PO SCH (08:32)
[2022-08-05] MEDS: APIXABAN 5 MG TAB PO SCH ×2 (08:32→21:38)
[2022-08-05] MEDS: carBAMazepine 100 MG TAB.ER.12H PO SCH (08:32)
[2022-08-05] MEDS: PANTOPRAZOLE 40 MG TABLET PO SCH (08:32)
[2022-08-05] MEDS: TAMSULOSIN 0.4 MG CAP.ER.24H PO SCH (08:32)
[2022-08-05] MEDS: FERROUS SULFATE 325 MG TAB PO SCH ×2 (08:33→21:59)
[2022-08-05] MEDS: FUROSEMIDE 80 MG TAB PO SCH (08:33)
[2022-08-05] MEDS: SPIRONOLACTONE 25 MG TAB PO SCH (08:33)
[2022-08-05] MEDS: PSYLLIUM HUSK 100% 6 GM PACKET PO SCH (08:33)
[2022-08-05] MEDS: ACETAMINOPHEN TAB 325 MG TAB PO PRN ×3 (08:34→21:37)
[2022-08-05] MEDS: metOLazone 5 MG TAB PO SCH (08:41)
[2022-08-05] MEDS: metFORMIN 500 MG TAB PO SCH ×2 (08:41→21:38)
[2022-08-05] MEDS: NON FORMULARY DRUG (Lubiprostone [Amitiza] 24 MCG Capsule) PO SCH ×2 (12:03→21:44)
[2022-08-05 12:09] LABS: Glucose,Whole Blood 191 mg/dL (70-110)
[2022-08-05] MEDS: MORPHINE PAIN PUMP MISCELLANE SCH (14:27)
--- NOTE | 2022-08-05 16:59 | P.PN ---
Progress Note - Text Progress Note Date: 08/05/22 Chief Complaint: Abdominal pain This is a pleasant 52-year-old male , follows with Dr. Waggoner. patient has a right Charcot foot and osteomyelitis in October 2020. 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 Chronic pain syndrome on morphine pump. On home oxygen-2 L Patient follows with Dr. Coleman at the wound care center. Has wounds on the left lower extremity including the wound on the plantar surface and now wound in the anterior jacob left side. Dr. Coleman send the patient down for further management. Patient not able to weight-bear on the foot. Denies any fever and chills. Appetite is fair. Some pain. 08/01/2022: Sitting up in a chair. Left leg wound VAC. Dr. Coleman and found the patient no further pain medications. at the bedside. No BM for 3 days. Lactulose 20 g. Metamucil 6 g daily 08/02/2022: Up in a chair. Left leg wound VAC. Starting diet. Had a BM yesterday. Pending placement to rehab. Remains on IV Lasix 40 mg twice a day. About 3 L in negative fluid balance. Remains on fluid restriction. 2-D echocardiogram tomorrow. 08/03/2022: Up in a chair. Eating well. On wound VAC. Per caser awaiting authorization for placement. Patient being changed over to oral Lasix. Creatinine 1.6 today. We'll hold evening and tomorrow morning dose of Lasix. Review creatinine from tomorrow morning. 08/04/2022: Up in a chair. Comfortable. Wound VAC. Still awaiting authorization for rehab placement. Discussed with patient. 08/05/2022: Up in a chair. Eating well. Had a bowel movement last night. Awaiting authorization for rehab. Wound care to continue per Dr. Coleman. Active Medications Acetaminophen (Acetaminophen Tab 325 Mg Tab) 650 mg PO Q6HR PRN PRN Reason: Mild Pain or Fever > 100.5 Last Admin: 08/05/22 14:26 Dose: 650 mg Hydrocodone Bitart/Acetaminophen (Hydrocodone/Apap 10-325mg 1 Each Tab) 1 each PO TID PRN PRN Reason: Pain Last Admin: 08/05/22 10:34 Dose: 1 each Apixaban (Apixaban 5 Mg Tab) 5 mg PO BID [facility]; Protocol Last Admin: 08/05/22 08:32 Dose: 5 mg Atorvastatin Calcium (Atorvastatin 80 Mg Tab) 80 mg PO DAILY [facility] Last Admin: 08/05/22 08:32 Dose: 80 mg Calcium Carbonate/Glycine (Calcium Carbonate 500 Mg Chewable) 1,000 mg PO Q4HR PRN PRN Reason: Dyspepsia Carbamazepine (Carbamazepine 100 Mg Tab.Er.12h) 100 mg PO DAILY [facility] Last Admin: 08/05/22 08:32 Dose: 100 mg Dextrose/Water (Dextrose 50% Syringe 50 Ml) 25 ml IVP PER PROTOCOL PRN; Protocol PRN Reason: Hypoglycemia Dextrose/Water (Dextrose 50% Syringe 50 Ml) 50 ml IVP PER PROTOCOL PRN; Protocol PRN Reason: Hypoglycemia Dicyclomine HCl (Dicyclomine 20 Mg Tab) 20 mg PO QID PRN PRN Reason: ibs Ferrous Sulfate (Ferrous Sulfate 325 Mg Tab) 325 mg PO BID [facility] Last Admin: 08/05/22 08:33 Dose: 325 mg Furosemide (Furosemide 80 Mg Tab) 80 mg PO DAILY [facility] Last Admin: 08/05/22 08:33 Dose: 80 mg Insulin Aspart (Insulin Aspart (Novolog) 100 Unit/Ml Vial) 10 unit SQ AC-TID [facility] Last Admin: 08/05/22 13:03 Dose: 10 unit Insulin Aspart (Insulin Aspart (Novolog) 100 Unit/Ml Vial) 0 unit SQ AC-TID [facility]; Protocol Last Admin: 08/05/22 13:03 Dose: 3 unit Insulin Detemir (Insulin Detemir (Levemir) 100 Unit/Ml Syr) 54 unit SQ HS [facility] Last Admin: 08/04/22 20:15 Dose: 54 unit Lactulose (Lactulose 20 Gm/30 Ml Cup) 20 gm PO DAILY PRN PRN Reason: Constipation Last Admin: 08/03/22 07:55 Dose: 20 gm Latanoprost (Latanoprost 0.005% Ophth Drops 2.5 Ml Btl) 1 drops BOTH EYES HS [facility] Last Admin: 08/04/22 20:17 Dose: 1 drops Lisinopril (Lisinopril 2.5 Mg Tab) 2.5 mg PO DAILY [facility] Last Admin: 08/05/22 08:41 Dose: 2.5 mg Lorazepam (Lorazepam 0.5 Mg Tab) 0.5 mg PO Q6HR PRN PRN Reason: Anxiety Last Admin: 08/03/22 04:45 Dose: 0.5 mg Melatonin (Melatonin 3 Mg Tablet) 3 mg PO HS PRN PRN Reason: Insomnia Metformin HCl (Metformin 500 Mg Tab) 1,000 mg PO BID [facility] Last Admin: 08/05/22 08:41 Dose: 1,000 mg Metolazone (Metolazone 5 Mg Tab) 5 mg PO DAILY [facility] Last Admin: 08/05/22 08:41 Dose: 5 mg Naloxone HCl (Naloxone 0.4 Mg/Ml 1 Ml Vial) 0.2 mg IV Q2M PRN PRN Reason: Opioid Reversal Non-Formulary Medication (Lubiprostone [Amitiza]) 24 mcg PO BID [facility] Last Admin: 08/05/22 12:03 Dose: 24 mcg Morphine Pain Pump 1 (Dose) 1 dose MISCELLANE CONTINUOUS [facility] Last Admin: 08/05/22 14:27 Dose: 1 dose Ondansetron HCl (Ondansetron 4 Mg/2 Ml Vial) 4 mg IVP Q8HR PRN PRN Reason: Nausea And Vomiting Ondansetron HCl (Ondansetron 4 Mg Tab) 4 mg PO Q8HR PRN PRN Reason: Nausea And Vomiting Last Admin: 08/04/22 16:44 Dose: 4 mg Pantoprazole Sodium (Pantoprazole 40 Mg Tablet) 40 mg PO DAILY@0730 [facility] Last Admin: 08/05/22 08:32 Dose: 40 mg Pregabalin (Pregabalin 100 Mg Cap) 100 mg PO HS [facility] Last Admin: 08/04/22 20:13 Dose: 100 mg Psyllium Hydrophilic Mucilloid (Psyllium Husk 100% 6 Gm Packet) 6 gm PO DAILY [facility] Last Admin: 08/05/22 08:33 Dose: Not Given Spironolactone (Spironolactone 25 Mg Tab) 25 mg PO DAILY [facility] Last Admin: 08/05/22 08:33 Dose: 25 mg Tamsulosin HCl (Tamsulosin 0.4 Mg Cap.Er.24h) 0.4 mg PO PC-BRKFST [facility] Last Admin: 08/05/22 08:32 Dose: 0.4 mg Past medical history to include: Bilateral Charcot foot, with left foot osteomyelitis with surgery in January 2021 , diabetes, GERD, peripheral neuropathy, hypertension, hyperlipidemia, factor 5 Leyden mutation on anticoagulation, diabetic gastroparesis, decreased vision in the left eye, depression, history of 2 DVTs, sleep apnea uses BiPAP machine environmental ALLERGIES, fatty liver, herniated disc in the lower back, pain pump implant, narrowing of esophagus Social history: . No history of alcohol or smoking. Physical examination: VITAL SIGNS: 97.9, 85, 15, 111/77, 96% on 2 L GENERAL: Sitting in recliner, comfortable EYES: Pupils equal. Conjunctiva normal. HEENT: External appearance of nose and ears normal, oral cavity grossly normal. NECK: JVD unable to assess; masses not palpable. HEART: First and second heart sounds are normal; edema present LUNGS: Respiratory rate normal; diminished breath sounds, ABDOMEN: Soft, generalized mid-lower abdominal tenderness, no guarding rigidity, liver spleen not palpable, no masses palpable. EXTREMITIES: Wound VAC on the left leg, mid distal leg wound PSYCH: Alert 3, mood affect anxious MUSCULOSKELETAL:No Clubbing/cyanosis;muscles-grossly intact. fungal changes in the nails of the foot. Dry skin. Right Charcot foot. Wound in the left leg anteriorly on the jacob, left plantar wound. NEUROLOGICAL: [Cranial nerves grossly intact; no facial asymmetry, decreased sensation distally. INVESTIGATIONS, reviewed in the clinical context: August 04: Sodium 138 potassium 4.4 creatinine 1.43 2-D echo: Normal LV size and systolic function. August 03: Potassium 4.3 BUN is 46.8 creatinine 1.6 August 02: Potassium 4.7 creatinine 1.47 August 01: Troponin I less than 0.012. ProBNP 656 White count 7.4 hemoglobin 9.6 platelets 275 sodium 136 potassium 4.9 BUN 45 creatinine 1.2 Tibia-fibula x-ray: Large soft tissue ulcer/wound. No obvious evidence of acute osteomyelitis. Assessment and plan: -Diabetic left lower extremity wound. One on the anterior jacob down to the bone. One on the plantar surface. No drainage. No fever no chills. Dr. Fuentes spoke to the wound care nurse Olimpia. Being followed by Dr. Coleman. No further change of pain medications per Dr. Coleman. Wound care per Dr. Jared -Acute on chronic congestive heart failure with preserved LV function: Fluid restriction. Lasix 80 mg twice a day. Zaroxolyn. Follow with cardiology -Bilateral foot Charcot foot from diabetes -Morbid obesity, BMI 49.6 Weight loss measures and follow with PCP -Diabetes mellitus type 2, chronically on insulin uncontrolled with hyperglycemia : Levemir 54 units at night. Follow Accu-Cheks. Sliding scale -Chronic kidney disease, stage III from nephrosclerosis -Acute kidney injury, prerenal component. Admission creatinine 1.2. Today 1.4. Hold morning Lasix. -GERD On Pepcid -Diabetic peripheral neuropathy, -Hyperlipidemia Lipitor -Chronic pain syndrome. morphine pain pump. Lyrica -Chronic, Bilateral lower extremity venous status, with skin changes -Essential hypertension Cardizem CD 180. 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 Continue current medications.
[2022-08-05 17:14] LABS: Glucose,Whole Blood 171 mg/dL (70-110)
[2022-08-05 20:24] LABS: Glucose,Whole Blood 152 mg/dL (70-110)
[2022-08-05] MEDS: PREGABALIN 100 MG CAP PO SCH (21:38)
[2022-08-05] MEDS: INSULIN DETEMIR (LEVEMIR) 100 UNIT/ML SYR SQ SCH (21:39)
[2022-08-05] MEDS: LATANOPROST 0.005% OPHTH DROPS 2.5 ML BTL BOTH EYES SCH (21:59)
[2022-08-06] MEDS: HYDROcodone/APAP 10-325MG 1 EACH TAB PO PRN ×3 (01:42→18:19)
[2022-08-06] MEDS: CALCIUM CARBONATE 500 MG CHEWABLE PO PRN (02:28)
[2022-08-06] MEDS: ACETAMINOPHEN TAB 325 MG TAB PO PRN ×2 (06:56→12:50)
[2022-08-06 07:11] LABS: Glucose,Whole Blood 139 mg/dL (70-110)
[2022-08-06] MEDS: INSULIN ASPART (NovoLOG) 100 UNIT/ML VIAL SQ SCH ×6 (07:59→18:19)
[2022-08-06] MEDS: metFORMIN 500 MG TAB PO SCH ×2 (08:37→20:59)
[2022-08-06] MEDS: NON FORMULARY DRUG (Lubiprostone [Amitiza] 24 MCG Capsule) PO SCH ×2 (08:38→21:02)
[2022-08-06] MEDS: PANTOPRAZOLE 40 MG TABLET PO SCH (08:38)
[2022-08-06] MEDS: TAMSULOSIN 0.4 MG CAP.ER.24H PO SCH (08:38)
[2022-08-06] MEDS: FERROUS SULFATE 325 MG TAB PO SCH ×2 (08:38→21:00)
[2022-08-06] MEDS: APIXABAN 5 MG TAB PO SCH ×2 (08:38→20:59)
[2022-08-06] MEDS: ATORVASTATIN 80 MG TAB PO SCH (08:38)
[2022-08-06] MEDS: SPIRONOLACTONE 25 MG TAB PO SCH (08:38)
[2022-08-06] MEDS: FUROSEMIDE 80 MG TAB PO SCH (08:39)
[2022-08-06] MEDS: carBAMazepine 100 MG TAB.ER.12H PO SCH (08:39)
[2022-08-06] MEDS: PSYLLIUM HUSK 100% 6 GM PACKET PO SCH (08:40)
[2022-08-06] MEDS: metOLazone 5 MG TAB PO SCH (08:40)
[2022-08-06] MEDS: ONDANSETRON 4 MG TAB PO PRN (10:20)
[2022-08-06 11:24] LABS: Glucose,Whole Blood 192 mg/dL (70-110)
[2022-08-06] MEDS: LACTULOSE 20 GM/30 ML CUP PO PRN (12:50)
[2022-08-06] MEDS: MORPHINE PAIN PUMP MISCELLANE SCH (12:51)
[2022-08-06 17:15] LABS: Glucose,Whole Blood 203 mg/dL (70-110)
[2022-08-06 20:20] LABS: Glucose,Whole Blood 109 mg/dL (70-110)
[2022-08-06] MEDS: INSULIN DETEMIR (LEVEMIR) 100 UNIT/ML SYR SQ SCH (21:00)
[2022-08-06] MEDS: PREGABALIN 100 MG CAP PO SCH (21:00)
[2022-08-06] MEDS: LATANOPROST 0.005% OPHTH DROPS 2.5 ML BTL BOTH EYES SCH (21:01)
[2022-08-07] MEDS: HYDROcodone/APAP 10-325MG 1 EACH TAB PO PRN ×2 (00:26→08:11)
[2022-08-07] MEDS: CALCIUM CARBONATE 500 MG CHEWABLE PO PRN ×2 (02:16→08:17)
[2022-08-07] MEDS: ACETAMINOPHEN TAB 325 MG TAB PO PRN (04:13)
[2022-08-07 07:08] LABS: Glucose,Whole Blood 162 mg/dL (70-110)
[2022-08-07] MEDS: INSULIN ASPART (NovoLOG) 100 UNIT/ML VIAL SQ SCH ×4 (08:10→13:24)
[2022-08-07] MEDS: FUROSEMIDE 80 MG TAB PO SCH (08:11)
[2022-08-07] MEDS: TAMSULOSIN 0.4 MG CAP.ER.24H PO SCH (08:12)
[2022-08-07] MEDS: ATORVASTATIN 80 MG TAB PO SCH (08:12)
[2022-08-07] MEDS: metOLazone 5 MG TAB PO SCH (08:12)
[2022-08-07] MEDS: APIXABAN 5 MG TAB PO SCH (08:12)
[2022-08-07] MEDS: FERROUS SULFATE 325 MG TAB PO SCH (08:12)
[2022-08-07] MEDS: metFORMIN 500 MG TAB PO SCH (08:12)
[2022-08-07] MEDS: carBAMazepine 100 MG TAB.ER.12H PO SCH (08:12)
[2022-08-07] MEDS: SPIRONOLACTONE 25 MG TAB PO SCH (08:12)
[2022-08-07] MEDS: PANTOPRAZOLE 40 MG TABLET PO SCH (08:12)
[2022-08-07] MEDS: PSYLLIUM HUSK 100% 6 GM PACKET PO SCH (08:13)
[2022-08-07] MEDS: NON FORMULARY DRUG (Lubiprostone [Amitiza] 24 MCG Capsule) PO SCH (08:18)
[2022-08-07] MEDS: ONDANSETRON 4 MG TAB PO PRN (10:18)
--- NOTE | 2022-08-07 10:36 | P.PN ---
Progress Note - Text Progress Note Date: 08/06/22 Chief Complaint: Abdominal pain This is a pleasant 52-year-old male , follows with Dr. Waggoner. patient has a right Charcot foot and osteomyelitis in October 2020. 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 Chronic pain syndrome on morphine pump. On home oxygen-2 L Patient follows with Dr. Coleman at the wound care center. Has wounds on the left lower extremity including the wound on the plantar surface and now wound in the anterior jacob left side. Dr. Coleman send the patient down for further management. Patient not able to weight-bear on the foot. Denies any fever and chills. Appetite is fair. Some pain. 08/01/2022: Sitting up in a chair. Left leg wound VAC. Dr. Coleman and found the patient no further pain medications. at the bedside. No BM for 3 days. Lactulose 20 g. Metamucil 6 g daily 08/02/2022: Up in a chair. Left leg wound VAC. Starting diet. Had a BM yesterday. Pending placement to rehab. Remains on IV Lasix 40 mg twice a day. About 3 L in negative fluid balance. Remains on fluid restriction. 2-D echocardiogram tomorrow. 08/03/2022: Up in a chair. Eating well. On wound VAC. Per casework specialist awaiting authorization for placement. Patient being changed over to oral Lasix. Creatinine 1.6 today. We'll hold evening and tomorrow morning dose of Lasix. Review creatinine from tomorrow morning. 08/04/2022: Up in a chair. Comfortable. Wound VAC. Still awaiting authorization for rehab placement. Discussed with patient. 08/05/2022: Up in a chair. Eating well. Had a bowel movement last night. Awaiting authorization for rehab. Wound care to continue per Dr. Coleman. August 06: No change in clinical status. Pending authorization. Eating well. Current medications reviewed Past medical history to include: Bilateral Charcot foot, with left foot osteomyelitis with surgery in January 2021 , diabetes, GERD, peripheral neuropathy, hypertension, hyperlipidemia, factor 5 Leyden mutation on anticoagulation, diabetic gastroparesis, decreased vision in the left eye, depression, history of 2 DVTs, sleep apnea uses BiPAP machine environmental ALLERGIES, fatty liver, herniated disc in the lower back, pain pump implant, narrowing of esophagus Social history: . No history of alcohol or smoking. Physical examination: VITAL SIGNS: 97.8, 78, 16, 127/77, 95% on 2 L GENERAL: Sitting in recliner, comfortable EYES: Pupils equal. Conjunctiva normal. HEENT: External appearance of nose and ears normal, oral cavity grossly normal. NECK: JVD unable to assess; masses not palpable. HEART: First and second heart sounds are normal; edema present LUNGS: Respiratory rate normal; diminished breath sounds, ABDOMEN: Soft, generalized mid-lower abdominal tenderness, no guarding rigidity, liver spleen not palpable, no masses palpable. EXTREMITIES: Wound VAC on the left leg, mid distal leg wound PSYCH: Alert 3, mood affect anxious MUSCULOSKELETAL:No Clubbing/cyanosis;muscles-grossly intact. fungal changes in the nails of the foot. Dry skin. Right Charcot foot. Wound in the left leg anteriorly on the jacob, left plantar wound. NEUROLOGICAL: [Cranial nerves grossly intact; no facial asymmetry, decreased sensation distally. INVESTIGATIONS, reviewed in the clinical context: August 04: Sodium 138 potassium 4.4 creatinine 1.43 2-D echo: Normal LV size and systolic function. August 03: Potassium 4.3 BUN is 46.8 creatinine 1.6 August 02: Potassium 4.7 creatinine 1.47 August 01: Troponin I less than 0.012. ProBNP 656 White count 7.4 hemoglobin 9.6 platelets 275 sodium 136 potassium 4.9 BUN 45 creatinine 1.2 Tibia-fibula x-ray: Large soft tissue ulcer/wound. No obvious evidence of acute osteomyelitis. Assessment and plan: -Diabetic left lower extremity wound. One on the anterior jacob down to the bone. One on the plantar surface. No drainage. No fever no chills. Dr. Fuentes spoke to the wound care nurse Olimpia. Being followed by Dr. Coleman. No further change of pain medications per Dr. Coleman. Wound care per Dr. Coleman -Acute on chronic congestive heart failure with preserved LV function: Fluid restriction. Lasix 80 mg twice a day. Zaroxolyn. Follow with cardiology -Bilateral foot Charcot foot from diabetes -Morbid obesity, BMI 49.6 Weight loss measures and follow with PCP -Diabetes mellitus type 2, chronically on insulin uncontrolled with hyperglycemia : Levemir 54 units at night. Follow Accu-Cheks. Sliding scale -Chronic kidney disease, stage III from nephrosclerosis -Acute kidney injury, prerenal component. Admission creatinine 1.2. Today 1.4. Hold morning Lasix. -GERD On Pepcid -Diabetic peripheral neuropathy, -Hyperlipidemia Lipitor -Chronic pain syndrome. morphine pain pump. Lyrica -Chronic, Bilateral lower extremity venous status, with skin changes -Essential hypertension Cardizem CD 180. 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 Discussed with patient and casework specialist
[2022-08-07 11:21] LABS: Glucose,Whole Blood 138 mg/dL (70-110)
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
[2022-08-07 13:11] VITALS: BP 143/70; PULSE 77; RESP 18; TEMP 98.1
--- NOTE | 2022-08-07 14:04 | P.DS ---
Providers Date of admission: 07/31/22 12:47 Expected date of discharge: 08/07/22 Attending physician: Heri Alvarez Consults: 07/31/22 13:01 Consult Physician Stat Consulting Provider: Ayo Coleman Consult Reason/Comments: cardiology Do you want consulting provider notified?: Yes Primary care physician: [facility] Course: Chief Complaint: Abdominal pain This is a pleasant 52-year-old male , follows with Dr. Waggoner. patient has a right Charcot foot and osteomyelitis in October 2020. 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 Chronic pain syndrome on morphine pump. On home oxygen-2 L Patient follows with Dr. Coleman at the wound care center. Has wounds on the left lower extremity including the wound on the plantar surface and now wound in the anterior jacob left side. Dr. Coleman send the patient down for further management. Patient not able to weight-bear on the foot. Denies any fever and chills. Appetite is fair. Some pain. 08/01/2022: Sitting up in a chair. Left leg wound VAC. Dr. Coleman and found the patient no further pain medications. at the bedside. No BM for 3 days. Lactulose 20 g. Metamucil 6 g daily 08/02/2022: Up in a chair. Left leg wound VAC. Starting diet. Had a BM yesterday. Pending placement to rehab. Remains on IV Lasix 40 mg twice a day. About 3 L in negative fluid balance. Remains on fluid restriction. 2-D echocardiogram tomorrow. 08/03/2022: Up in a chair. Eating well. On wound VAC. Per clinical case manager awaiting authorization for placement. Patient being changed over to oral Lasix. Creatinine 1.6 today. We'll hold evening and tomorrow morning dose of Lasix. Review creatinine from tomorrow morning. 08/04/2022: Up in a chair. Comfortable. Wound VAC. Still awaiting authorization for rehab placement. Discussed with patient. 08/05/2022: Up in a chair. Eating well. Had a bowel movement last night. Awaiting authorization for rehab. Wound care to continue per Dr. Coleman. August 06: No change in clinical status. Pending authorization. Eating well. August 07: Sitting up. Comfortable. Tolerating diet. Discussed with the patient. Patient accepted to rehab. OBRA Discussion and discharge planning more than 35 minutes Past medical history to include: Bilateral Charcot foot, with left foot osteomyelitis with surgery in January 2021 , diabetes, GERD, peripheral neuropathy, hypertension, hyperlipidemia, factor 5 Leyden mutation on anticoagulation, diabetic gastroparesis, decreased vision in the left eye, depression, history of 2 DVTs, sleep apnea uses BiPAP machine environmental ALLERGIES, fatty liver, herniated disc in the lower back, pain pump implant, narrowing of esophagus Social history: . No history of alcohol or smoking. Physical examination: VITAL SIGNS: 97.5, 75, 16, 109/70, 96% on 2 L GENERAL: Sitting in recliner, comfortable EYES: Pupils equal. Conjunctiva normal. HEENT: External appearance of nose and ears normal, oral cavity grossly normal. NECK: JVD unable to assess; masses not palpable. HEART: First and second heart sounds are normal; edema present LUNGS: Respiratory rate normal; diminished breath sounds, ABDOMEN: Soft, generalized mid-lower abdominal tenderness, no guarding rigidity, liver spleen not palpable, no masses palpable. EXTREMITIES: Wound VAC on the left leg, mid distal leg wound PSYCH: Alert 3, mood affect anxious MUSCULOSKELETAL:No Clubbing/cyanosis;muscles-grossly intact. fungal changes in the nails of the foot. Dry skin. Right Charcot foot. Wound in the left leg anteriorly on the jacob, left plantar wound. NEUROLOGICAL: [Cranial nerves grossly intact; no facial asymmetry, decreased sensation distally. INVESTIGATIONS, reviewed in the clinical context: August 04: Sodium 138 potassium 4.4 creatinine 1.43 2-D echo: Normal LV size and systolic function. August 03: Potassium 4.3 BUN is 46.8 creatinine 1.6 August 02: Potassium 4.7 creatinine 1.47 August 01: Troponin I less than 0.012. ProBNP 656 White count 7.4 hemoglobin 9.6 platelets 275 sodium 136 potassium 4.9 BUN 45 creatinine 1.2 Tibia-fibula x-ray: Large soft tissue ulcer/wound. No obvious evidence of acute osteomyelitis. Assessment and plan: -Diabetic left lower extremity wound. One on the anterior jacob down to the bone. One on the plantar surface. No drainage. No fever no chills. followed by Dr. Coleman. No further change of pain medications per Dr. Coleman. Wound care per Dr. Coleman. Wound VAC -Acute on chronic congestive heart failure with preserved LV function: Stable Fluid restriction. Lasix 80 mg a day. Zaroxolyn. Follow with cardiology -Bilateral foot Charcot foot from diabetes -Morbid obesity, BMI 49.6 Weight loss measures and follow with PCP -Diabetes mellitus type 2, chronically on insulin uncontrolled with hype rglycemia : Lantus 64 units at night. Follow Accu-Cheks. Sliding scale -Chronic kidney disease, stage III from nephrosclerosis -Acute kidney injury, prerenal component. Admission creatinine 1.2. Today 1.4. -GERD On Pepcid -Diabetic peripheral neuropathy, -Hyperlipidemia Lipitor -Chronic pain syndrome. morphine pain pump. Lyrica -Chronic, Bilateral lower extremity venous status, with skin changes -Essential hypertension Cardizem CD 180. 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 Eliquis -Hepatic steatosis, nonalcoholic fatty liver disease -Herniated disc in the lumbar spine Pain medications when necessary -Partial blindness of left eye -Diabetic gastroparesis -Full code Disposition: [facility] - Discharge Summary Discharge Rx Participant: Yes New Discharge Prescriptions: New Psyllium Husk 100% [Metamucil Packet] 6 gm PO DAILY packet INSULIN ASPART (NovoLOG) [NovoLOG (formulary)] 0 unit SQ AC-TID each Acetaminophen Tab [Tylenol] 650 mg PO Q6HR PRN tab PRN Reason: Mild Pain Or Fever > 100.5 Ondansetron [Zofran] 4 mg PO Q8HR PRN tab PRN Reason: Nausea And Vomiting Furosemide [Lasix] 80 mg PO DAILY #1 tablet Lactulose [Cephulac] 20 gm PO DAILY PRN ml PRN Reason: Constipation Calcium Carbonate [Tums] 1,000 mg PO Q4HR PRN tab PRN Reason: Dyspepsia Continue Latanoprost Ophth [Xalatan 0.005%] 1 drop BOTH EYES HS Morphine Pain Pump 1 dose INTRATHECA CONTINUOUS Lubiprostone [Amitiza] 24 mcg PO BID Apixaban [Eliquis] 5 mg PO BID #60 tab Atorvastatin [Lipitor] 80 mg PO DAILY Dicyclomine [Bentyl] 20 mg PO QID PRN PRN Reason: ibs metOLazone [Zaroxolyn] 5 mg PO DAILY Pregabalin [Lyrica] 100 mg PO HS #3 cap HYDROcodone/APAP 10-325MG [Wrens 10-325] 1 tab PO TID PRN #9 tab PRN Reason: Pain Ferrous Sulfate [Iron (65 MG Elemental)] 325 mg PO QID Omeprazole 20 mg PO DAILY Potassium Chloride [Klor-Con M10] 10 meq PO DAILY metFORMIN HCL 1,000 mg PO BID Insulin Lispro [humaLOG Kwikpen] 10 unit SQ AC-TID #0 Tamsulosin [Flomax] 0.4 mg PO PC-BRKFST #30 cap carBAMazepine [carBAMazepine ER] 100 mg PO DAILY lisinopriL [Zestril] 2.5 mg PO DAILY Spironolactone [Aldactone] 25 mg PO DAILY Insulin Glargine,Hum.rec.anlog [Lantus Solostar Pen] 64 units SQ HS Discontinued Loratadine [Claritin] 10 mg PO DAILY Doxycycline [Vibramycin] 100 mg PO BID #20 capsule Discharge Medication List Latanoprost Ophth [Xalatan 0.005%] 1 drop BOTH EYES HS 01/23/14 [History] Morphine Pain Pump 1 dose INTRATHECA CONTINUOUS 05/05/17 [History] Ferrous Sulfate [Iron (65 MG Elemental)] 325 mg PO QID 10/25/20 [History] Lubiprostone [Amitiza] 24 mcg PO BID 05/15/21 [History] Omeprazole 20 mg PO DAILY 11/10/21 [History] Potassium Chloride [Klor-Con M10] 10 meq PO DAILY 04/14/22 [History] Apixaban [Eliquis] 5 mg PO BID #60 tab 04/16/22 [Rx] Atorvastatin [Lipitor] 80 mg PO DAILY 06/03/22 [History] metFORMIN HCL 1,000 mg PO BID 06/03/22 [History] Insulin Lispro [humaLOG Kwikpen] 10 unit SQ AC-TID #0 06/08/22 [Rx] Tamsulosin [Flomax] 0.4 mg PO PC-BRKFST #30 cap 07/03/22 [Rx] Dicyclomine [Bentyl] 20 mg PO QID PRN 07/31/22 [History] Insulin Glargine,Hum.rec.anlog [Lantus Solostar Pen] 64 units SQ HS 07/31/22 [History] Spironolactone [Aldactone] 25 mg PO DAILY 07/31/22 [History] carBAMazepine [carBAMazepine ER] 100 mg PO DAILY 07/31/22 [History] lisinopriL [Zestril] 2.5 mg PO DAILY 07/31/22 [History] metOLazone [Zaroxolyn] 5 mg PO DAILY 07/31/22 [History] Acetaminophen Tab [Tylenol] 650 mg PO Q6HR PRN tab 08/03/22 [Rx] Calcium Carbonate [Tums] 1,000 mg PO Q4HR PRN tab 08/03/22 [Rx] HYDROcodone/APAP 10-325MG [Wrens 10-325] 1 tab PO TID PRN #9 tab 08/03/22 [Rx] INSULIN ASPART (NovoLOG) [NovoLOG (formulary)] 0 unit SQ AC-TID each 08/03/22 [Rx] Lactulose [Cephulac] 20 gm PO DAILY PRN ml 08/03/22 [Rx] Ondansetron [Zofran] 4 mg PO Q8HR PRN tab 08/03/22 [Rx] Pregabalin [Lyrica] 100 mg PO HS #3 cap 08/03/22 [Rx] Psyllium Husk 100% [Metamucil Packet] 6 gm PO DAILY packet 08/03/22 [Rx] Furosemide [Lasix] 80 mg PO DAILY #1 tablet 08/04/22 [Rx] Follow up Appointment(s)/Referral(s): Dl Waggoner MD [Primary Care Provider] - 08/12/22 11:00 am [facility] [NON-STAFF] - 08/07/22 8:00 am Fei Ramey MD [STAFF PHYSICIAN] - 1 Week Activity/Diet/Wound Care/Special Instructions: Per Dr Coleman orders: Opticel silver to open areas on BLE Mon/Wed/Wed Wound van to left jacob wound black granulofoam/continuous 125/ change Wed/Wed/Wed
== END 2022-08-07 16:20 | DRG 380 ==
LOC: EC 09:41 → 5NMEDONC 12:47
PROVIDERS: ADMIT Hospitalist; ATTEND Hospitalist
DX: E11.621 Type 2 diabetes mellitus with foot ulcer (principal); E11.22 Type 2 diabetes mellitus with diabetic chronic kidney disease; E11.42 Type 2 diabetes mellitus with diabetic polyneuropathy; E11.43 Type 2 diabetes mellitus with diabetic autonomic (poly)neuropathy; E11.51 Type 2 diabetes mellitus with diabetic peripheral angiopathy without gangrene; E11.610 Type 2 diabetes mellitus with diabetic neuropathic arthropathy; E66.01 Morbid (severe) obesity due to excess calories; Z68.42 Body mass index [BMI] 45.0-49.9, adult; E11.622 Type 2 diabetes mellitus with other skin ulcer; E11.649 Type 2 diabetes mellitus with hypoglycemia without coma; D68.51 Activated protein C resistance; K22.2 Esophageal obstruction; F32.A Depression, unspecified; N17.9 Acute kidney failure, unspecified; I50.33 Acute on chronic diastolic (congestive) heart failure; I13.0 Hypertensive heart and chronic kidney disease with heart failure and stage 1 through stage 4 chronic kidney disease, or unspecified chronic kidney disease; L97.522 Non-pressure chronic ulcer of other part of left foot with fat layer exposed; L97.823 Non-pressure chronic ulcer of other part of left lower leg with necrosis of muscle; K76.0 Fatty (change of) liver, not elsewhere classified; I25.2 Old myocardial infarction; M51.26 Other intervertebral disc displacement, lumbar region; I08.1 Rheumatic disorders of both mitral and tricuspid valves; L97.926 Non-pressure chronic ulcer of unspecified part of left lower leg with bone involvement without evidence of necrosis; N18.30 Chronic kidney disease, stage 3 unspecified; E11.65 Type 2 diabetes mellitus with hyperglycemia; F41.9 Anxiety disorder, unspecified; R13.10 Dysphagia, unspecified; Z96.89 Presence of other specified functional implants; G47.00 Insomnia, unspecified; K21.9 Gastro-esophageal reflux disease without esophagitis; K44.9 Diaphragmatic hernia without obstruction or gangrene; K31.84 Gastroparesis; E78.5 Hyperlipidemia, unspecified; H54.8 Legal blindness, as defined in USA; G43.909 Migraine, unspecified, not intractable, without status migrainosus; V89.2XXS Person injured in unspecified motor-vehicle accident, traffic, sequela; K58.9 Irritable bowel syndrome, unspecified; G89.4 Chronic pain syndrome; M19.91 Primary osteoarthritis, unspecified site; G47.33 Obstructive sleep apnea (adult) (pediatric); Z79.4 Long term (current) use of insulin; Z79.01 Long term (current) use of anticoagulants; Z79.899 Other long term (current) drug therapy; Z79.84 Long term (current) use of oral hypoglycemic drugs; Z82.49 Family history of ischemic heart disease and other diseases of the circulatory system; Z83.3 Family history of diabetes mellitus; Z79.891 Long term (current) use of opiate analgesic; Z71.3 Dietary counseling and surveillance; Z28.311 Partially vaccinated for COVID-19
CPT/HCPCS: 36415; 80048; 80053; 83605; 83880; 84484; 85025; 87040; 93005; 93308; 96361; 96374; 96375; 96376; 99285

== ENCOUNTER 2022-08-10 04:04 | Emergency (ER) | payer OTHER ==
[2022-08-10] MEDS ORDERED: MORPHINE SULFATE 4 MG/ML SYRINGE IVP STA (04:13)
--- NOTE | 2022-08-10 04:37 | ED ---
General Adult HPI - General Chief complaint: Abdominal Pain Stated complaint: Bowel Obstruction Time Seen by Provider: 08/10/22 04:12 Source: patient Mode of arrival: EMS Limitations: no limitations - History of Present Illness Initial comments: This is a 52-year-old male with a past medical history significant for CHF, Factor V leiden, presented to the emergency department via EMS from his rehab facility for abdominal pain constipation. The patient stated that he had generalized abdominal pain and distention of his abdomen over the last 1 day with stated that his last bowel movement was over 1 week ago. It was reported that the patient had an enema performed 2 over the last 1 day and was unsuccessful. The patient denied any nausea or vomiting but stated that his appetite had decreased today. The patient stated that he attempted to try to come to the emergency department earlier but "the facility would not make that happen." The patient himself stated that he had lower abdominal pain currently and he stated that it felt similar to his previous episode of a small ball obstruction. The patient denied any fevers and chills or nausea and vomiting currently. - Related Data Home Medications Medication Instructions Recorded Confirmed Latanoprost Ophth [Xalatan 0.005%] 1 drop BOTH EYES HS 01/23/14 07/31/22 Morphine Pain Pump 1 dose INTRATHECA CONTINUOUS 05/05/17 07/31/22 Ferrous Sulfate [Iron (65 MG 325 mg PO QID 10/25/20 07/31/22 Elemental)] Lubiprostone [Amitiza] 24 mcg PO BID 05/15/21 07/31/22 Omeprazole 20 mg PO DAILY 11/10/21 07/31/22 Potassium Chloride [Klor-Con M10] 10 meq PO DAILY 04/14/22 07/31/22 Atorvastatin [Lipitor] 80 mg PO DAILY 06/03/22 07/31/22 metFORMIN HCL 1,000 mg PO BID 06/03/22 07/31/22 Dicyclomine [Bentyl] 20 mg PO QID PRN 07/31/22 07/31/22 Insulin Glargine,Hum.rec.anlog 64 units SQ HS 07/31/22 07/31/22 [Lantus Solostar Pen] Spironolactone [Aldactone] 25 mg PO DAILY 07/31/22 07/31/22 carBAMazepine [carBAMazepine ER] 100 mg PO DAILY 07/31/22 07/31/22 lisinopriL [Zestril] 2.5 mg PO DAILY 07/31/22 07/31/22 metOLazone [Zaroxolyn] 5 mg PO DAILY 07/31/22 07/31/22 Previous Rx's Medication Instructions Recorded Apixaban [Eliquis] 5 mg PO BID #60 tab 04/16/22 Insulin Lispro [humaLOG Kwikpen] 10 unit SQ AC-TID #0 06/08/22 Tamsulosin [Flomax] 0.4 mg PO PC-BRKFST #30 cap 07/03/22 Acetaminophen Tab [Tylenol] 650 mg PO Q6HR PRN tab 08/03/22 Calcium Carbonate [Tums] 1,000 mg PO Q4HR PRN tab 08/03/22 HYDROcodone/APAP 10-325MG [Many 1 tab PO TID PRN #9 tab 08/03/22 10-325] INSULIN ASPART (NovoLOG) [NovoLOG 0 unit SQ AC-TID each 08/03/22 (formulary)] Lactulose [Cephulac] 20 gm PO DAILY PRN ml 08/03/22 Ondansetron [Zofran] 4 mg PO Q8HR PRN tab 08/03/22 Pregabalin [Lyrica] 100 mg PO HS #3 cap 08/03/22 Psyllium Husk 100% [Metamucil 6 gm PO DAILY packet 08/03/22 Packet] Furosemide [Lasix] 80 mg PO DAILY #1 tablet 08/04/22 polyethylene glycoL 3350 [Miralax] 17 gm PO DAILY #20 packet 08/10/22 Allergies Allergy/AdvReac Type Severity Reaction Status Date / Time adhesive Allergy Rash/Hives Verified 07/31/22 11:27 Review of Systems ROS Statement: Those systems with pertinent positive or pertinent negative responses have been documented in the HPI. ROS Other: All systems not noted in ROS Statement are negative. Past Medical History Past Medical History: Blood Disorder, Diabetes Mellitus, Deep Vein Thrombosis (DVT), GERD/Reflux, Hyperlipidemia, Hypertension, Musculoskeletal Disorder, Osteoarthritis (OA), Sleep Apnea/CPAP/BIPAP Additional Past Medical History / Comment(s): IDDM type II, neuropathy bilateral feet with R foot worse, charcot foot R/L, currently sores L foot and is NWB, recent surgery R foot with boot an can wt bear as tolerated, gastroparesis, hiat al hernia, esophageal narrowing (scarring)/past dysphagia/has had dilations, factor V leiden, 2 DVT's L leg, another superficial blood clot L leg, chronic back pain/has pain pump, DDD and bulging discs, legally blind L eye since , migraines, PVD, fatty liver, MEL with trilogy machine. Last Myocardial Infarction Date:: 11/07/21 History of Any Multi-Drug Resistant Organisms: VRE Date of last positivie culture/infection: 07/01/21 MDRO Source:: VRE FOOT Past Surgical History: Tonsillectomy Additional Past Surgical History / Comment(s): R foot/ankle surgery at [facility] with bone removal/hardware inserted, I&D L foot, pain pump insertion, colonoscopy, EGDs with dilations, UVPPP, eye surgery as an . Past Anesthesia/Blood Transfusion Reactions: Family History of Problems w/ Anesthesia Additional Past Anesthesia/Blood Transfusion Reaction / Comment(s): STATES "MOTHER CRASHES" "passes out"-with anesthesia,"needs to have a hand or machine paster dose" Smoking Status: Never smoker - Past Family History Father Family Medical History: Cancer Additional Family Medical History / Comment(s): BLADDER CANCER Mother Family Medical History: CVA/TIA, Diabetes Mellitus, Myocardial Infarction (GA) General Exam Limitations: no limitations General appearance: alert, in no apparent distress, obese Head exam: Present: atraumatic, normocephalic, normal inspection Eye exam: Present: normal appearance, PERRL Pupils: Present: normal accommodation ENT exam: Present: normal exam, normal oropharynx, mucous membranes moist Neck exam: Present: normal inspection, full ROM Respiratory exam: Present: normal lung sounds bilaterally Cardiovascular Exam: Present: regular rate, normal rhythm, normal heart sounds GI/Abdominal exam: Present: distended, tenderness (TTP over the bilateral lower quadrants), diminished bowel sounds Extremities exam: Present: full ROM, pedal edema Back exam: Present: normal inspection, full ROM Neurological exam: Present: alert, oriented X3, CN II-XII intact Psychiatric exam: Present: normal affect, normal mood Skin exam: Present: warm, dry Course Vital Signs 08/10/22 08/10/22 04:23 05:40 Temperature 98.2 F Pulse Rate 91 Respiratory 24 22 Rate O2 Sat by Pulse 96 96 Oximetry Medical Decision Making - Medical Decision Making Was pt. sent in by a medical professional or institution ([facility], [facility], urgent care, hospital, or longterm...) When possible be specific @ -Yes, the patient was sent from his rehab facility Did you speak to anyone other than the patient for history (EMS, parent, family, police, friend...)? What history was obtained from this source @ -No Did you review nursing and triage notes (agree or disagree)? Why? @ -I reviewed and agree with nursing and triage notes Were old charts reviewed (outside hosp., previous admission, EMS record, old EKG, old radiological studies, urgent care reports/EKG's, longterm records)? Report findings @ -No old charts were reviewed Differential Diagnosis (chest pain, altered mental status, abdominal pain women, abdominal pain men, vaginal bleeding, weakness, fever, dyspnea, syncope, headache, dizziness, GI bleed, back pain, seizure, CVA, palpatations, mental health)? @ -Small bowel obstruction, constipation, gastroenteritis EKG interpreted by me (3pts min.). @ -None X-rays interpreted by me (1pt min.). @ -None done CT interpreted by me (1pt min.). @ -CT abdomen and pelvis with contrast was obtained and was interpreted by myself showing no bowel obstruction. There was no significant new or acute findings seen. U/S interpreted by me (1pt. min.). @ -None done What testing was considered but not performed or refused? (CT, X-rays, U/S, labs)? Why? @ -None What meds were considered but not given or refused? Why? @ -None Did you discuss the management of the patient with other professionals (professionals i.e. [facility], [facility], lab, RT, psych nurse, social work lecturer, bus or truck garage mechanic, teacher, field health officer, housing case manager)? Give summary @ -No Was smoking cessation discussed for >3mins.? @ -No Was critical care preformed (if so, how long)? @ -No Were there social determinants of health that impacted care today? How? (Homelessness, low income, unemployed, alcoholism, drug addiction, transportation, low edu. Level, literacy, decrease access to med. care, skilled nursing, rehab)? @ -No Was there de-escalation of care discussed even if they declined (Discuss DNR or withdrawal of care, Hospice)? DNR status @ -No What co-morbidities impacted this encounter? (DM, HTN, Smoking, COPD, CAD, Cancer, CVA, ARF, Chemo, Hep., AIDS, mental health diagnosis, sleep apnea, morbi d obesity)? @ -Hypertension, congestive heart failure, Factor 5 Leiden Was patient admitted / discharged? Hospital course, mention meds given and route, prescriptions, significant lab abnormalities, going to OR and other pertinent info. @ -The patient was seen and evaluated in emergency department. Physical exam, the patient was resting in bed in minimal distress secondary to abdominal pain. Laboratory workup was obtained and was within normal limits. Imaging was also negative. The patient's vital signs remained stable. The patient was offered a note of molasses enema and did accept this as he stated that this worked previously. As the patient completes his enema, the patient was stable for discharge back to his rehab facility. The patient had a significant bowel movement it was stable for discharge back home. The patient was given a prescription for MiraLAX to continue to keep his bowel movements more regular. The patient was told this plan and was agreeable. The patient was discharged back to his nursing facility in stable condition. Undiagnosed new problem with uncertain prognosis? @ -No Drug Therapy requiring intensive monitoring for toxicity (Heparin, Nitro, Insulin, Cardizem)? @ -No Were any procedures done? @ -No Diagnosis/symptom? @ -Abdominal pain likely secondary to constipation Acute, or Chronic, or Acute on Chronic? @ -Acute on chronic Uncomplicated (without systemic symptoms) or Complicated (systemic symptoms)? @ -Uncomplicated Side effects of treatment? @ -No Exacerbation, Progression, or Severe Exacerbation? @ -No Poses a threat to life or bodily function? How? (Chest pain, USA, GA, pneumonia, PE, COPD, DKA, ARF, appy, cholecystitis, CVA, Diverticulitis, Homicidal, S uicidal, threat to staff... and all critical care pts) @ -No - Lab Data Result diagrams: 08/10/22 04:22 08/10/22 04:22 Lab Results 08/10/22 08/10/22 Range/Units 04:22 04:22 WBC 8.9 (3.8-10.6) k/uL RBC 3.31 L (4.30-5.90) m/uL Hgb 10.1 L (13.0-17.5) gm/dL Hct 29.5 L (39.0-53.0) % MCV 89.0 (80.0-100.0) fL MCH 30.6 (25.0-35.0) pg MCHC 34.3 (31.0-37.0) g/dL RDW 15.0 (11.5-15.5) % Plt Count 321 (150-450) k/uL MPV 8.1 Neutrophils % 84 % Lymphocytes % 8 % Monocytes % 6 % Eosinophils % 1 % Basophils % 0 % Neutrophils # 7.5 (1.3-7.7) k/uL Lymphocytes # 0.8 L (1.0-4.8) k/uL Monocytes # 0.5 (0-1.0) k/uL Eosinophils # 0.1 (0-0.7) k/uL Basophils # 0.0 (0-0.2) k/uL Poikilocytosis Slight Sodium 134 L (137-145) mmol/L Potassium 4.9 (3.5-5.1) mmol/L Chloride 92 L (98-107) mmol/L Carbon Dioxide 30 (22-30) mmol/L Anion Gap 12 mmol/L BUN 79 H (9-20) mg/dL Creatinine 1.48 H (0.66-1.25) mg/dL Est GFR (CKD-EPI)AfAm 62 (>60 ml/min/1.73 sqM) Est GFR (CKD-EPI)NonAf 54 (>60 ml/min/1.73 sqM) Glucose 244 H (74-99) mg/dL Calcium 9.0 (8.4-10.2) mg/dL Magnesium 2.1 (1.6-2.3) mg/dL Total Bilirubin 0.4 (0.2-1.3) mg/dL AST 34 (17-59) U/L ALT 31 (4-49) U/L Alkaline Phosphatase 179 H (38-126) U/L Total Protein 7.0 (6.3-8.2) g/dL Albumin 3.7 (3.5-5.0) g/dL Lipase 98 (23-300) U/L Disposition Clinical Impression: Constipation, Abdominal pain Disposition: HOME SELF-CARE Condition: Stable Instructions (If sedation given, give patient instructions): Constipation (DC), Abdominal Pain (ED) Prescriptions: polyethylene glycoL 3350 [Miralax] 17 gm PO DAILY #20 packet Is patient prescribed a controlled substance at d/c from ED?: No Referrals: Dl Waggoner MD [Primary Care Provider] - 1-2 days Time of Disposition: 06:20
[2022-08-10 04:45] LABS: Basophils % (A) 0 %; Eosinophils # (A) 0.1 k/uL (0-0.7); Eosinophils % (A) 1 %; HCT 29.5 % (39.0-53.0); HGB 10.1 gm/dL (13.0-17.5); Lymphocytes # (A) 0.8 k/uL (1.0-4.8); Lymphocytes % (A) 8 %; MCH 30.6 pg (25.0-35.0); MCHC 34.3 g/dL (31.0-37.0); Mean Platelet Volume 8.1; Monocytes # (A) 0.5 k/uL (0-1.0); Monocytes % (A) 6 %; Neutrophils # (A) 7.5 k/uL (1.3-7.7); Neutrophils % (A) 84 %; Platelet Count 321 k/uL (150-450); Poikilocytosis Slight; RBC 3.31 m/uL (4.30-5.90); WBC 8.9 k/uL (3.8-10.6)
[2022-08-10 05:21] LABS: Albumin 3.7 g/dL (3.5-5.0); Magnesium 2.1 mg/dL (1.6-2.3); Potassium 4.9 mmol/L (3.5-5.1); Total Bilirubin 0.4 mg/dL (0.2-1.3)
--- NOTE | 2022-08-10 05:23 | CT ---
EXAMINATION TYPE: CT abdomen pelvis w con DATE OF EXAM: 08/10/2022 COMPARISON: Most recent CT July 01, 2022 and older study June 27, 2022. HISTORY: Acute abdominal pain. Possible bowel obstruction. CT DLP: 2600 mGycm, Automated Exposure Control for Dose Reduction was Utilized. CONTRAST: CT scan of the abdomen and pelvis is performed without oral and with IV Contrast, patient injected wi th 100 mL of Isovue 300. FINDINGS: LUNG BASES: No significant abnormality is appreciated. LIVER/GB: No significant abnormality is appreciated. PANCREAS: No significant abnormality is seen. SPLEEN: No significant abnormality is seen. ADRENALS: No significant abnormality is seen. KIDNEYS: No visualized excretion on delayed images similar to prior but no hydronephrosis is seen. M ildly distended bladder on current study. BOWEL: Normal-appearing appendix. Small sized hiatal hernia redemonstrated. No suspicious small or la rge bowel dilatation. PROSTATE/SEMINAL VESICLES: No gross abnormality seen. LYMPH NODES: Few prominent but subcentimeter retroperitoneal lymph nodes along course of the aorta re demonstrated in the abdomen and pelvis. Prominent but subcentimeter lymph nodes in the bilateral groi n redemonstrated. OSSEOUS STRUCTURES: Multilevel spurring in the thoracolumbar spine. Posterior spurring effaces the an terior thecal sac at multiple levels. OTHER: Left anterior abdominal metallic device or stimulator redemonstrated. IMPRESSION: No bowel obstruction. No significant new or acute finding is seen to account for patient' s clinical symptoms.
[2022-08-10] MEDS ORDERED: KETOROLAC 15 MG/ML 1 ML VIAL IVP STA (07:20)
[2022-08-10 07:54] VITALS: BP 140/95; PULSE 98; RESP 19; TEMP 98.3
== END 2022-08-10 08:29 | disposition home or self-care (01) ==
LOC: EC 04:04
DX: K59.00 Constipation, unspecified (principal); R10.31 Right lower quadrant pain; R10.32 Left lower quadrant pain; E78.5 Hyperlipidemia, unspecified; E11.9 Type 2 diabetes mellitus without complications; Z86.718 Personal history of other venous thrombosis and embolism; K21.9 Gastro-esophageal reflux disease without esophagitis; I10 Essential (primary) hypertension; I25.2 Old myocardial infarction; M19.90 Unspecified osteoarthritis, unspecified site; Z91.09 Other allergy status, other than to drugs and biological substances; Z79.01 Long term (current) use of anticoagulants; Z79.4 Long term (current) use of insulin; Z79.84 Long term (current) use of oral hypoglycemic drugs; Z79.899 Other long term (current) drug therapy
CPT/HCPCS: 36415; 80053; 83690; 83735; 85025; 74177; 99284; 96374; 96375; J2270; J1885; Q9967

== ENCOUNTER 2022-08-13 13:20 | Inpatient (IN) | payer OTHER ==
[2022-08-13] MEDS ORDERED: ONDANSETRON 4 MG/2 ML VIAL IVP STA ×2 (13:36→15:18)
[2022-08-13 13:43] LABS: Glucose,Whole Blood 45 mg/dL (70-110)
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
[2022-08-13 13:54] LABS: Glucose,Whole Blood 64 mg/dL (70-110)
[2022-08-13] MEDS ORDERED: DEXTROSE 50% SYRINGE 50 ML IVP STA ×3 (13:54→18:13)
[2022-08-13 14:16] LABS: Glucose,Whole Blood 119 mg/dL (70-110)
[2022-08-13 14:24] LABS: Basophils % (A) 0 %; Eosinophils % (A) 0 %; HCT 31.2 % (39.0-53.0); HGB 10.7 gm/dL (13.0-17.5); Lymphocytes # (A) 0.6 k/uL (1.0-4.8); Lymphocytes % (A) 6 %; MCH 30.7 pg (25.0-35.0); MCHC 34.3 g/dL (31.0-37.0); MCV 89.6 fL (80.0-100.0); Mean Platelet Volume 8.6; Monocytes # (A) 0.7 k/uL (0-1.0); Monocytes % (A) 8 %; Neutrophils # (A) 7.8 k/uL (1.3-7.7); Neutrophils % (A) 85 %; Platelet Count 247 k/uL (150-450); Poikilocytosis Slight; RBC 3.48 m/uL (4.30-5.90); RDW 15.2 % (11.5-15.5); WBC 9.2 k/uL (3.8-10.6)
[2022-08-13 14:33] LABS: Albumin 3.5 g/dL (3.5-5.0); Calcium 8.8 mg/dL (8.4-10.2); Magnesium 2.2 mg/dL (1.6-2.3); Total Bilirubin 0.4 mg/dL (0.2-1.3); Total Protein 6.5 g/dL (6.3-8.2)
[2022-08-13 14:38] LABS: Potassium 7.3 mmol/L (3.5-5.1)
--- NOTE | 2022-08-13 14:38 | XR ---
EXAMINATION TYPE: XR tibia fibula LT DATE OF EXAM: 08/13/2022 2:33 PM INDICATION: Patient age:Male; 52 years old; Reason for study: Osteomyelitis; PHH. COMPARISON: Left tibia/fibular radiograph 07/31/2022. TECHNIQUE: The left tibia/fibula was examined in AP and lateral projections. FINDINGS: Moderate to severe diffuse obvious edema is again present. Lucency consistent with nonheali ng wound is again redemonstrated and similar to prior examination. This is demonstrated along the ant erior aspect of the mid tibia extending towards the anterior margin. No suspicious bony destruction o r abnormal periosteal reaction identified. No acute displaced fracture or dislocation. Degenerative c hanges in the knee and ankle joints again seen. IMPRESSION: Overall similar examination with large soft tissue ulcer nonhealing wound in the anterior lower extre mity without osseous findings to suggest acute osteomyelitis.
[2022-08-13] MEDS ORDERED: SODIUM BICARB 8.4% 50 ML SYR (1 MEQ/ML) IV STA ×2 (14:40→18:14)
[2022-08-13] MEDS ORDERED: CALCIUM CHLORIDE 100 MG/ML 10 ML SYRINGE IVP STA (14:40)
[2022-08-13] MEDS ORDERED: INSULIN REGULAR 100 UNIT/ML VIAL (IV) IV ONE ×2 (14:42→18:13)
[2022-08-13] MEDS ORDERED: SODIUM ZIRCONIUM CYCLOSILICATE 10 GM PACKET PO ONE ×2 (14:43→18:16)
[2022-08-13] MEDS ORDERED: SODIUM CHLORIDE 0.9% 500 ML 500 ML IV ONE (14:55)
[2022-08-13] MEDS ORDERED: SODIUM CHLORIDE 0.9% 1,000 ML IV ONE ×2 (14:55→16:51)
[2022-08-13] MEDS ORDERED: HYDROmorphone 0.5 MG/0.5 ML SYRINGE IVP STA (16:50)
[2022-08-13 17:25] LABS: Calcium 8.8 mg/dL (8.4-10.2); Total Bilirubin 0.3 mg/dL (0.2-1.3); Total Protein 5.8 g/dL (6.3-8.2)
[2022-08-13] MEDS ORDERED: CALCIUM CARBONATE 500 MG CHEWABLE PO PRN (17:25)
[2022-08-13 17:52] LABS: Potassium 7.6 mmol/L (3.5-5.1)
[2022-08-13] MEDS ORDERED: CALCIUM GLUCONATE IN NACL 1 GM in SALINE 1 100ML.BAG IVPB ONE (18:12)
[2022-08-13 18:19] LABS: Glucose,Whole Blood 159 mg/dL (70-110)
[2022-08-13 20:25] LABS: Glucose,Whole Blood 126 mg/dL (70-110)
[2022-08-13] MEDS ORDERED: PREGABALIN 100 MG CAP PO SCH (21:00)
[2022-08-13] MEDS ORDERED: INSULIN DETEMIR (LEVEMIR) 100 UNIT/ML SYR SQ SCH (21:00)
[2022-08-13] MEDS ORDERED: LIDOCAINE (PF) 10 MG/ML 2 ML VIAL SQ STA (21:26)
[2022-08-13] MEDS ORDERED: HEPARIN SODIUM 1,000 UN/ML (10ML VL) MISCELLANE ONE (21:31)
--- NOTE | 2022-08-13 21:42 | P.PCN ---
Description of Procedure: Preoperative diagnoses is acute chronic renal failure potassium 7.3 be an of 119 clinic and creatinine 7.23 Postop same procedure ultrasound-guided 20 same dialysis catheter placed right femoral approach patient seen in the emergency room right groin were prepped and draped for breast of manner 1% lidocaine for infected did right groin. Ultrasound-guided micropuncture introduced right femoral vein micropuncture guidewire passed and 4-Spanish dilator advanced top the guidewire then we passed a regular guidewire without any resistance. Dilator were advanced. The guidewire then replaced a dialysis catheter guide was removed flushed with heparin saline and Hep-Lock secured with 3-0 nylon patient are to the procedure well
--- NOTE | 2022-08-13 21:53 | XR ---
EXAMINATION TYPE: XR pelvis AP view DATE OF EXAM: 08/13/2022 CLINICAL HISTORY: Postdialysis catheter insertion. TECHNIQUE: A single AP view of the pelvis is obtained. COMPARISON: CT abdomen and pelvis 3 days ago. FINDINGS: Slightly suboptimal evaluation due to large body habitus. There is new right groin central venous catheter presumed in the right iliac vein system. There is no acute fracture/dislocation evid ent in the pelvis. Mild to moderate axial joint space loss in both hips. Pubic symphysis is intact. S acroiliac joints show [id number] narrowing bilaterally. The overlying soft tissue appears unre markable. IMPRESSION: As above.
[2022-08-13] MEDS: SIMETHICONE 80 MG CHEWABLE PO SCH ×2 (22:02→23:19)
[2022-08-13] MEDS ORDERED: MIDODRINE 5 MG TAB PO STA (23:16)
[2022-08-13] MEDS: NON FORMULARY DRUG (Lubiprostone [Amitiza] 24 MCG Capsule) PO SCH (23:19)
[2022-08-13 23:33] LABS: Glucose,Whole Blood 145 mg/dL (70-110)
[2022-08-13] MEDS: LATANOPROST 0.005% OPHTH DROPS 2.5 ML BTL BOTH EYES SCH (23:55)
[2022-08-13] MEDS: LACTULOSE 20 GM/30 ML CUP PO SCH (23:56)
--- NOTE | 2022-08-14 00:36 | XR ---
EXAMINATION TYPE: XR chest 1V portable DATE OF EXAM: 08/14/2022 CLINICAL HISTORY: Difficulty in breathing. TECHNIQUE: Single AP portable frontal semiupright view of the chest is obtained. COMPARISON: Chest x-ray July 26, 2022 FINDINGS: There is new endotracheal tube terminating at the aortic knob level approximately 2 to 3 cm above the emre. There is new oral gastric tube difficult to distinctly visualize tip but felt to b e terminating near the diaphragm level. Persistent low lung volumes. Cardiac silhouette size stable and upper limits of normal. Moderate cent ral opacities bilaterally and current study more prominent from prior with mild interstitial edema. N o pleural effusion or pneumothorax is seen. Osseous structures are intact. IMPRESSION: 1. Satisfactory position of endotracheal tube. 2. Suspect orogastric tube is short of the stomach. Advise advancing. 3. Low lung volumes with moderate central edema suspected. Correlate for fluid overload state.
[2022-08-14] MEDS ORDERED: NALOXONE 0.4 MG/ML 1 ML VIAL IV PRN (00:43)
[2022-08-14 00:49] LABS: Glucose,Whole Blood 125 mg/dL (70-110)
[2022-08-14] MEDS: NOREPINEPHRINE 4 MG in SODIUM CHLORIDE 0.9% 250 ML IV SCH ×3 (01:00→18:15)
[2022-08-14 01:12] LABS: ABG Base Excess -7.3 mmol/L; ABG HCO3 21 mmol/L (21-25); ABG Oxygen Saturation 96.1 % (94-97); ABG PCO2 60 mmHg (35-45); ABG PO2 84 mmHg (83-108); ABG TCO2 23 mmol/L (19-24); Allen Test Performed? Yes
[2022-08-14 01:19] LABS: ABG PH 7.16 (7.35-7.45)
[2022-08-14 02:54] LABS: Basophils % (A) 0 %; Eosinophils % (A) 0 %; HCT 26.2 % (39.0-53.0); Lymphocytes # (A) 0.3 k/uL (1.0-4.8); Lymphocytes % (A) 2 %; MCH 31.8 pg (25.0-35.0); MCHC 34.1 g/dL (31.0-37.0); MCV 93.3 fL (80.0-100.0); Mean Platelet Volume 8.1; Monocytes # (A) 0.8 k/uL (0-1.0); Monocytes % (A) 5 %; Neutrophils % (A) 92 %; Platelet Count 333 k/uL (150-450); Poikilocytosis Slight; RBC 2.81 m/uL (4.30-5.90); RDW 14.9 % (11.5-15.5); WBC 14.1 k/uL (3.8-10.6)
[2022-08-14 03:34] LABS: HGB 8.9 gm/dL (13.0-17.5)
[2022-08-14 04:15] LABS: Calcium 7.8 mg/dL (8.4-10.2); Magnesium 2.1 mg/dL (1.6-2.3)
--- NOTE | 2022-08-14 04:15 | XR ---
EXAM: XR Chest, 1 View CLINICAL HISTORY: ITS.REASON XR Reason: OGT ADVANCEMENT TECHNIQUE: Frontal view of the chest. COMPARISON: No relevant prior studies available. IMPRESSION: Feeding tube likely terminates above the diaphragm. Recommend advancing 5 cm.
[2022-08-14 04:37] LABS: Potassium 7.3 mmol/L (3.5-5.1)
[2022-08-14] MEDS ORDERED: SODIUM ZIRCONIUM CYCLOSILICATE 10 GM PACKET PO ONE (05:37)
[2022-08-14] MEDS ORDERED: SODIUM BICARB 8.4% 50 ML SYR (1 MEQ/ML) IV ONE (05:37)
[2022-08-14] MEDS ORDERED: DEXTROSE 50% SYRINGE 50 ML IVP ONE (05:37)
[2022-08-14] MEDS ORDERED: INSULIN REGULAR 100 UNIT/ML VIAL (IV) IV ONE (05:37)
[2022-08-14] MEDS ORDERED: CALCIUM GLUCONATE IN NACL 1 GM in SALINE 1 100ML.BAG IVPB ONE (05:37)
[2022-08-14] MEDS ORDERED: FUROSEMIDE 10 MG/ML 10 ML VIAL IV STA (05:38)
[2022-08-14 05:43] LABS: ABG Base Excess -6.5 mmol/L; ABG HCO3 21 mmol/L (21-25); ABG Oxygen Saturation 92.9 % (94-97); ABG PCO2 51 mmHg (35-45); ABG PH 7.22 (7.35-7.45); ABG PO2 66 mmHg (83-108); ABG TCO2 23 mmol/L (19-24); Allen Test Performed? Yes
[2022-08-14 06:54] LABS: Glucose,Whole Blood 255 mg/dL (70-110)
--- NOTE | 2022-08-14 07:25 | XR ---
EXAMINATION TYPE: XR chest 1V portable DATE OF EXAM: 08/14/2022 COMPARISON: 08/14/2022 INDICATION: OG tube positioning TECHNIQUE: Single frontal view of the chest is obtained. Images obtained centered over the diaphragm. The upper chest is excluded from [id number] FINDINGS: The heart size is mildly prominent. The pulmonary vasculature is distinct. Patchy infiltrates are present bilaterally. Nasogastric tube transverses the thorax with tip in left upper quadrant of the abdomen. IMPRESSION: 1. Repositioning of the nasogastric tube with the tip in the left upper quadrant of the abdomen 2. Patchy infiltrates present bilaterally greater at the left lung base.
--- NOTE | 2022-08-14 07:29 | XR ---
EXAMINATION TYPE: XR chest 1V portable DATE OF EXAM: 08/14/2022 7:16 AM COMPARISON: Chest radiographs from 08/14/2022 TECHNIQUE: XR chest 1V portable Frontal view of the chest. CLINICAL INDICATION:Male, 52 years old with history of OG placement; FINDINGS: Lungs/Pleura: Left lower lung airspace consolidation. There is no evidence of pleural effusion or pne umothorax. Pulmonary vascularity: Unremarkable. Heart/mediastinum: Cardiomediastinal silhouette is unremarkable. Musculoskeletal: No acute osseous pathology. Other findings: None Lines/Tubes: Endotracheal tube with distal tip 4.1 cm above the emre. Nasogastric tube with side-port projecting over the distal esophagus. IMPRESSION: 1. Nasogastric tube side-port in the distal esophagus. Advancement of at least 10 cm is recommended for optimal placement. 2. Left lower lung airspace consolidation.
--- NOTE | 2022-08-14 08:53 | XR ---
EXAMINATION TYPE: XR chest 1V portable DATE OF EXAM: 08/14/2022 COMPARISON: 08/14/2022 INDICATION: Confirm OG tube placement TECHNIQUE: Single frontal view of the chest is obtained. FINDINGS: The heart size is normal. The pulmonary vasculature is normal. Diffuse patchy infiltrate is present bilaterally. Findings are nonspecific but worsening over the int erval. Correlate for pneumonia. Continued follow-up is recommended. Endotracheal tube tip is above the emre. Nasogastric tube transverses the thorax tip within the abd omen out of the field of view. IMPRESSION: 1. Continued worsening bilateral lung infiltrates greater at the left lung base. Correlate for pneumo hasmukh. Continued follow-up is recommended. 2. Lines and catheters discussed above.
[2022-08-14] MEDS: NON FORMULARY DRUG (Lubiprostone [Amitiza] 24 MCG Capsule) PO SCH ×2 (09:11→20:13)
[2022-08-14 09:54] LABS: Hepatitis B Surface AB- Quant 3.5 mIU/mL; Hepatitis B Surface Antibody Nonreactive (Nonreactive)
[2022-08-14 10:02] LABS: Hepatitis B Surface Antigen Nonreactive (Nonreactive)
--- NOTE | 2022-08-14 10:23 | P.CNPUL ---
History of Present Illness Consult date: 08/14/22 Chief complaint: Respiratory arrest History of present illness: This is a morbidly obese 53-year-old male patient who arrived to us from the group home. The patient was the hospital and was discharged to the group home on 08/07/2022. He has multiple medical problems and comorbidities. He is morbidly obese with a body mass index of 49. He is diabetic and his blood sugars have been poorly controlled and he has a diabetic ones in his left lower extremity jacob and this is a deep wound reaching his bone. This has been evaluated by Dr. Coleman and the patient was given wound care treatment. He does have charcoal joints related to his diabetes mellitus. He does have a component of chronic kidney disease, stage III related to hypertensive nephrosclerosis. 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 Note that his previous creatinine has been in the range of 1.48 prior to him being discharged. Yesterday, the patient presented to the emergency department because of difficulties with ones. He initially denies having any other complaints. No reported fever or chills. The patient apparently told the emergency physician that he was unsure exactly why he was sent into the emergency. I'm going to check the group home records accordingly. Meanwhile, while in the emergency, the patient was found to be in acute kidney injury. He had significant abnormalities in his blood work and the patient had a initial the 119, creatinine of 7.2, sodium of 1:30, potassium of 7.3, bicarb of 20, lactic acid level of 3.2, troponin of 0.02, and his white cell count was at 9.2 with a hemoglobin 10.7 and a platelet count of 247. This was consistent with an acute kidney injury. At that point, nephrology was consulted. Arrangements were made for this patient to undergo dialysis as the patient was offered treatment for his hyperkalemia and he did not respond. In fact his repeat potassium was at 7.6. At that time, he was decided to dialyze this patient. Dialysis catheter was inserted in the right femoral vein. The patient while on dialysis was noted to be progressively more apneic. The blood gas was done and he was found to be in acute on top of chronic respiratory acidosis in addition to a component of metabolic acidosis. PH was at 7.16 with a pCO2 of 60 and pO2 of 84. It was decided to proceed with intubation mechanical ventilation to maintain his breathing. As such, the patient was intubated and he was sent to the intensive care unit. This morning, the patient remains intubated. He is on propofol running at 40 mcg/kg/m. He is calm and comfortable. He is on mechanical ventilator assist control mode at the rate of 20, tidal volume 600, FiO2 of 100% with a PEEP of 5. His peak airway pressure is 35. Follow-up blood gases showed a pH of 7.22 with a pCO2 of 51 and pO2 of 66. I reviewed the series of chest x-rays including the one that was done today. There is evidence of interstitial edema along with cardiomegaly. The orotracheal tube is in good location for now. The follow-up morning blood gases showed a pH of 7.22 with a pCO2 of 51 and pO2 of 66 and this was on FiO2 of 100%. At the same time, the patient became hypotensive. He is currently on norepinephrine running at 0.06 mcg/kg/m. IV fluids currently at normal saline at the rate of 75 mL an hour. He does not produce any urine output for the time being. He is afebrile for now. The findings on the case. The patient is receiving a full session of hemodialysis today. In fact, he is currently undergoing hemodialysis. Blood sugars from this morning was at 125, Review of Systems ROS unobtainable: due to endotracheal tube Past Medical History Past Medical History: Blood Disorder, Diabetes Mellitus, Deep Vein Thrombosis (DVT), GERD/Reflux, Hyperlipidemia, Hypertension, Musculoskeletal Disorder, Osteoarthritis (OA), Sleep Apnea/CPAP/BIPAP Additional Past Medical History / Comment(s): IDDM type II, neuropathy bilateral feet with R foot worse, charcot foot R/L, currently sores L foot and is NWB, recent surgery R foot with boot an can wt bear as tolerated, gastroparesis, hiatal hernia, esophageal narrowing (scarring)/past dysphagia/has had dilations, factor V leiden, 2 DVT's L leg, another superficial blood clot L leg, chronic ba ck pain/has pain pump, DDD and bulging discs, legally blind L eye since , migraines, PVD, fatty liver, MEL with trilogy machine. Last Myocardial Infarction Date:: 11/07/21 History of Any Multi-Drug Resistant Organisms: VRE Date of last positivie culture/infection: 07/01/21 MDRO Source:: VRE FOOT Past Surgical History: Tonsillectomy Additional Past Surgical History / Comment(s): R foot/ankle surgery at [facility] with bone removal/hardware inserted, I&D L foot, pain pump insertion, colonoscopy, EGDs with dilations, UVPPP, eye surgery as an infant. Past Anesthesia/Blood Transfusion Reactions: Family History of Problems w/ Anesthesia Additional Past Anesthesia/Blood Transfusion Reaction / Comment(s): STATES "MOTHER CRASHES" "passes out"-with anesthesia,"needs to have a digital account coordinator dose" Past Psychological History: Anxiety, Depression Smoking Status: Never smoker - Past Family History Father Family Medical History: Cancer Additional Family Medical History / Comment(s): BLADDER CANCER Mother Family Medical History: CVA/TIA, Diabetes Mellitus, Myocardial Infarction ([place]) Medications and Allergies Home Medications Medication Instructions Recorded Confirmed Type Latanoprost Ophth [Xalatan 0.005%] 1 drop BOTH EYES HS 01/23/14 08/13/22 History Ferrous Sulfate [Iron (65 MG 325 mg PO QID 10/25/20 08/13/22 History Elemental)] Lubiprostone [Amitiza] 24 mcg PO BID 05/15/21 08/13/22 History Omeprazole 20 mg PO DAILY 11/10/21 08/13/22 History Apixaban [Eliquis] 5 mg PO BID #60 tab 04/16/22 08/13/22 Rx Atorvastatin [Lipitor] 80 mg PO DAILY 06/03/22 08/13/22 History metFORMIN HCL 1,000 mg PO BID 06/03/22 08/13/22 History Tamsulosin [Flomax] 0.4 mg PO PC-BRKFST #30 cap 07/03/22 08/13/22 Rx Dicyclomine [Bentyl] 20 mg PO Q6H PRN 07/31/22 08/13/22 History Insulin Glargine,Hum.rec.anlog 64 units SQ HS 07/31/22 08/13/22 History [Lantus Solostar Pen] Spironolactone [Aldactone] 25 mg PO DAILY 07/31/22 08/13/22 History carBAMazepine [carBAMazepine ER] 100 mg PO DAILY 07/31/22 08/13/22 History lisinopriL [Zestril] 2.5 mg PO DAILY 07/31/22 08/13/22 History metOLazone [Zaroxolyn] 5 mg PO DAILY 07/31/22 08/13/22 History Acetaminophen Tab [Tylenol] 650 mg PO Q6HR PRN tab 08/03/22 08/13/22 Rx Calcium Carbonate [Tums] 1,000 mg PO Q4HR PRN tab 08/03/22 08/13/22 Rx HYDROcodone/APAP 10-325MG [Pangburn 1 tab PO TID PRN #9 tab 08/03/22 08/13/22 Rx 10-325] Pregabalin [Lyrica] 100 mg PO HS #3 cap 08/03/22 08/13/22 Rx Psyllium Husk 100% [Metamucil 6 gm PO DAILY packet 08/03/22 08/13/22 Rx Packet] Furosemide [Lasix] 80 mg PO DAILY #1 tablet 08/04/22 08/13/22 Rx DULoxetine HCL [Cymbalta] 30 mg PO DAILY 08/13/22 08/13/22 History Docusate [Colace] 100 mg PO BID 08/13/22 08/13/22 History Lactulose [Cephulac] 20 gm PO BID 08/13/22 08/13/22 History Potassium Chloride [Klor-Con M20] 20 meq PO DAILY 08/13/22 08/13/22 History Sennosides [Senokot] 17.2 mg PO BID 08/13/22 08/13/22 History Simethicone [Simethicone Chew] 80 mg PO QID 08/13/22 08/13/22 History bisacodyL [Dulcolax] 10 mg RECTAL HS PRN 08/13/22 08/13/22 History ondansetron HCL [Zofran] 8 mg PO Q8HR PRN 08/13/22 08/13/22 History Allergies Allergy/AdvReac Type Severity Reaction Status Date / Time adhesive Allergy Rash/Hives Verified 08/13/22 14:26 Physical Exam Vitals: Vital Signs Temp Pulse Resp BP BP Pulse Ox FiO2 08/14/22 08:04 100 08/14/22 07:00 64 13 115/62 98 100 08/14/22 06:45 70 0 L 112/59 97 08/14/22 06:30 65 5 L 123/65 97 08/14/22 06:15 70 0 L 118/61 97 08/14/22 06:00 67 0 L 108/59 99 08/14/22 05:45 102 H 0 L 104/58 93 L 08/14/22 05:30 111 H 10 L 109/61 08/14/22 05:15 92 0 L 114/65 88 L 08/14/22 05:10 100 08/14/22 05:00 100 20 109/62 95 100 08/14/22 04:45 73 20 102/58 94 L 08/14/22 04:30 92 0 L 94/54 92 L 08/14/22 04:15 138 H 0 L 104/56 08/14/22 04:00 96.2 F L 72 20 114/60 92 L 100 08/14/22 03:45 62 20 116/61 92 L 08/14/22 03:30 63 20 124/62 93 L 08/14/22 03:15 92 20 134/67 92 L 08/14/22 03:00 128 H 20 134/64 92 L 100 08/14/22 02:55 120 H 20 134/64 92 L 08/14/22 02:50 129 H 20 134/64 92 L 08/14/22 02:45 112 H 20 130/64 92 L 08/14/22 02:40 130 H 20 130/64 92 L 08/14/22 02:35 112 H 16 130/64 92 L 08/14/22 02:30 128 H 20 123/62 93 L 08/14/22 02:25 111 H 20 123/62 93 L 08/14/22 02:20 113 H 20 123/62 92 L 08/14/22 02:15 111 H 20 116/61 93 L 08/14/22 02:10 128 H 13 116/61 92 L 08/14/22 02:05 133 H 7 L 116/61 92 L 08/14/22 02:00 112 H 21 116/61 92 L 08/14/22 01:55 120 H 10 L 116/61 92 L 08/14/22 01:50 131 H 0 L 116/61 91 L 08/14/22 01:45 134 H 0 L 109/61 92 L 08/14/22 01:40 122 H 0 L 109/61 93 L 08/14/22 01:35 133 H 0 L 109/61 93 L 08/14/22 01:30 142 H 10 L 115/60 08/14/22 01:25 130 H 11 L 115/60 94 L 08/14/22 01:20 142 H 11 L 115/60 94 L 08/14/22 01:15 149 H 8 L 102/46 94 L 08/14/22 01:10 97 17 102/46 98 08/14/22 01:05 158 H 20 102/46 93 L 08/14/22 01:00 151 H 20 109/53 92 L 08/14/22 00:55 81 22 109/53 92 L 08/14/22 00:50 165 H 20 109/53 93 L 08/14/22 00:45 20 08/14/22 00:40 20 114/60 08/14/22 00:35 165 H 20 107/56 08/14/22 00:30 115 H 20 08/14/22 00:29 95.8 F L 98 20 100 08/14/22 00:25 88 18 95/47 08/14/22 00:22 16 83/46 08/14/22 00:20 87 18 82/41 96 08/14/22 00:11 100 08/14/22 00:10 73 18 61/29 93 L 08/14/22 00:00 73 18 68/33 94 L 08/13/22 23:50 100 08/13/22 23:49 78 16 96/45 83 L 08/13/22 22:00 77 16 98/58 94 L 08/13/22 21:00 77 16 123/53 93 L 08/13/22 20:00 84 16 100/52 95 08/13/22 19:20 86 18 88/52 95 08/13/22 17:32 76 20 97/57 92 L 08/13/22 16:52 83 20 99/43 95 08/13/22 16:39 82 91/54 08/13/22 16:24 81 20 82/50 95 08/13/22 15:44 85 18 86/52 95 08/13/22 13:23 98.6 F 81 20 122/57 96 Intake and Output 08/13/22 08/14/22 08/14/22 22:59 06:59 14:59 Intake Total 1672.268 152.671 Output Total 0 5 Balance 1672.268 147.671 Intake: Intake, IV Titration 872.268 152.671 Amount Calcium Gluconate in NaCl 100 1 gm In Saline 1 100ml. bag @ 100 mls/hr IVPB ONCE ONE Rx#:[id number] Norepinephrine 4 mg In 163.707 Sodium Chloride 0.9% 250 ml @ 0.05 MCG/KG/MIN 26. 096 mls/hr IV .[id number] [facility] Rx#:[id number] Sodium Chloride 0.9% 1, 450 75 000 ml @ 75 mls/hr IV . [id number] ONE Rx#:[id number] propofoL 1,000 mg In 158.561 77.671 Empty Bag 1 bag @ 15 MCG/ KG/MIN 12.329 mls/hr IV . Q8H7M [facility] Rx#:[id number] Hemodialysis 800 Output: Urine 0 5 Hemodialysis 0 Other: Voiding Method Indwelling Catheter Currently intubated on a mechanical ventilator, sedated on propofol, morbidly obese with a body mass index of 48.7 Head exam was generally normal. There was no scleral icterus or corneal arcus. Mucous membranes were moist. Neck was supple and without jugular venous distension, thyromegaly, or carotid bruits. Carotids were easily palpable bilaterally. There was no adenopathy. Lungs sounds are diminished bilaterally and there is some limited bibasilar crackles Cardiac exam revealed the PMI to be normally situated and sized. The rhythm was regular and no extrasystoles were noted during several minutes of auscultation. The first and second heart sounds were normal and physiologic splitting of the second heart sound was noted. There were no murmurs, rubs, clicks, or gallops. Abdominal exam revealed normal bowel sounds. The abdomen was soft, non-tender, and without masses, organomegaly, or appreciable enlargement of the abdominal aorta. Extremities are chronically edematous and there is evidence of chronic venous stasis. There is at least a 7 cm x 5 cm left lower extremity ones, no surrounding erythema, the wound surface is quite irregular, this is a deep 1 which is probably 1 cm deep and bone is being visualized. There is no active drainage. No purulence. No necrosis. He does have Charcot joints in his lower extremities. He does have chronic lower oximetry edema along with chronic venous stasis a pulse of diminished lower oximetry is bilaterally. Neurologically, the patient is sedated, and I was told that the patient was quite awake prior to him being intubated. Pupils are equal and reactive to light. He withdraws to painful stimulation. Results - Laboratory Findings CBC and BMP: 08/14/22 02:05 08/14/22 02:05 ABG ABG pH 7.22 (7.35-7.45) L 08/14/22 05:40 ABG pCO2 51 mmHg (35-45) H 08/14/22 05:40 ABG pO2 66 mmHg (83-108) L 08/14/22 05:40 ABG O2 Saturation 92.9 % (94-97) L 08/14/22 05:40 Abnormal lab findings: Abnormal Labs 08/13/22 08/13/22 08/13/22 13:33 13:52 14:01 WBC RBC 3.48 L Hgb 10.7 L Hct 31.2 L Neutrophils # 7.8 H Lymphocytes # 0.6 L ABG pH ABG pCO2 ABG pO2 ABG O2 Saturation Sodium Potassium Chloride Carbon Dioxide BUN Creatinine Glucose POC Glucose (mg/dL) 45 L 64 L Plasma Lactic Acid Ger Calcium AST Alkaline Phosphatase Total Protein Albumin 08/13/22 08/13/22 08/13/22 14:01 14:01 14:13 WBC RBC Hgb Hct Neutrophils # Lymphocytes # ABG pH ABG pCO2 ABG pO2 ABG O2 Saturation Sodium 130 L Potassium 7.3 H* Chloride 91 L Carbon Dioxide 20 L BUN 119 H* Creatinine 7.27 H* Glucose 33 L* POC Glucose (mg/dL) 119 H Plasma Lactic Acid Ger 3.2 H* Calcium AST 64 H Alkaline Phosphatase 145 H Total Protein Albumin 08/13/22 08/13/22 08/13/22 17:00 18:14 18:16 WBC RBC Hgb Hct Neutrophils # Lymphocytes # ABG pH ABG pCO2 ABG pO2 ABG O2 Saturation Sodium 130 L Potassium 7.6 H* Chloride 95 L Carbon Dioxide 20 L BUN 116 H* Creatinine 6.96 H Glucose 35 L* POC Glucose (mg/dL) 159 H Plasma Lactic Acid Ger 3.2 H* Calcium AST 66 H Alkaline Phosphatase 128 H Total Protein 5.8 L Albumin 3.0 L 08/13/22 08/13/22 08/13/22 20:24 22:47 23:32 WBC RBC Hgb Hct Neutrophils # Lymphocytes # ABG pH ABG pCO2 ABG pO2 ABG O2 Saturation Sodium Potassium Chloride Carbon Dioxide BUN Creatinine Glucose POC Glucose (mg/dL) 126 H 145 H Plasma Lactic Acid Ger 2.7 H* Calcium AST Alkaline Phosphatase Total Protein Albumin 08/14/22 08/14/22 08/14/22 00:13 00:47 02:05 WBC 14.1 H RBC 2.81 L Hgb 8.9 L D Hct 26.2 L Neutrophils # 13.0 H Lymphocytes # 0.3 L ABG pH 7.16 L* ABG pCO2 60 H ABG pO2 ABG O2 Saturation Sodium Potassium Chloride Carbon Dioxide BUN Creatinine Glucose POC Glucose (mg/dL) 125 H Plasma Lactic Acid Ger Calcium AST Alkaline Phosphatase Total Protein Albumin 08/14/22 08/14/22 08/14/22 02:05 05:40 06:53 WBC RBC Hgb Hct Neutrophils # Lymphocytes # ABG pH 7.22 L ABG pCO2 51 H ABG pO2 66 L ABG O2 Saturation 92.9 L Sodium 133 L Potassium 7.3 H* Chloride 97 L Carbon Dioxide 20 L BUN 89 H Creatinine 5.46 H Glucose 115 H POC Glucose (mg/dL) 255 H Plasma Lactic Acid Ger Calcium 7.8 L AST Alkaline Phosphatase Total Protein Albumin - Diagnostic Findings Chest x-ray: image reviewed Assessment and Plan Plan: Acute on top of chronic kidney disease. The patient is an acute kidney injury with persistent hyperkalemia, not responsive to medical management and the patient is currently on hemodialysis. No urine output at this point in time and the patient has a Castillo catheter in place. Consider also possibility of drug effect as the patient was taken a combination of diuretics and fara inhibitors on outpatient basis Chronic stage III kidney disease related to hypertensive/diabetic nephropathy Acute hypoxic/hypercapnic respiratory failure on top of chronic hypoxemic and hypercapnic respiratory failure, likely related to diastolic congestive heart failure exacerbation, morbid obesity, and sleep apnea syndrome. The decompensated infected with the fluid overload as the patient is interstitial edema/pulmonary edema on his chest x-rays. Currently intubated on mechanical ve ntilator. Acute hyperkalemia Diastolic heart failure with a preserved LV function and ejection fraction of 55%. Pulmonary artery pressures was not established Diabetes mellitus type 2, insulin-dependent Diabetic left lower extremity ulcer, deep reaching the bone with possibility of osteomyelitis, this is a chronic nonhealing wound and the anterior aspect of the left lower extremity Hypotension, currently on low-dose norepinephrine as the patient is being dialyzed. Exact cause is not clear. Hypertension could be potentially septic in nature. Charcoal joints Chronic lower extremity edema and chronic venous stasis of the legs bilaterally Severe obstructive sleep apnea syndrome, on home BiPAP. Chronic hypoxemic respiratory failure. Morbid obesity. BMI 51.8 kg per metered square History of hyperlipidemia. History of diabetes with diabetic neuropathy. History of chronic pain syndrome. History of hypertension. History of gastroesophageal reflux disease. History of factor V deficiency. history of DVT. Morbid obesity with a body mass index of 48. Chronic use of diuretics on outpatient basis including Aldactone and Zaroxolyn and Lasix History of diverticulosis History of chronic back pain Anemia of chronic disease Plan Keep the patient sedated with propofol Continue vent support. We'll drop the tidal volume to 450, increase respiratory rate of 26, increase the PEEP up to 8 Obtain a follow-up blood gas following dialysis Check electrolytes including potassium level post-hemodialysis Ultrasound of the kidneys to rule out hydronephrosis Complete hemodialysis today Nephrology has been consulted Cover The patient empirically with IV Zosyn Continue pressors to maintain an support his blood pressure Altered off the Levemir insulin give the patient size. Coverage We'll initiate enteral feeding within next 24 hours May need to restart anticoagulation with Eliquis a dose of 2.5 mg twice a day. This will be started after establishing the appropriate lines Stop the diuretics and start fara inhibitors for now Most recent echocardiogram from recent admission was within normal limits and the patient has a preserved LV function Consult wound care services Condition is critical and we'll continue to follow make further recommendations based on his progress. Time with Patient: Greater than 30
[2022-08-14] MEDS ORDERED: DEXTROSE 50% SYRINGE 50 ML IVP PRN ×4 (10:31→15:02)
[2022-08-14] MEDS: LACTULOSE 20 GM/30 ML CUP PO SCH ×2 (10:41→21:07)
[2022-08-14] MEDS: PANTOPRAZOLE 40 MG TABLET PO SCH (10:42)
[2022-08-14] MEDS: TAMSULOSIN 0.4 MG CAP.ER.24H PO SCH (10:42)
[2022-08-14] MEDS: DULoxetine HCL 30 MG CAPSULE.DR PO SCH (10:42)
[2022-08-14] MEDS: SIMETHICONE 80 MG CHEWABLE PO SCH ×4 (10:42→21:07)
[2022-08-14] MEDS: ATORVASTATIN 80 MG TAB PO SCH (10:42)
[2022-08-14] MEDS: CHLORHEXIDINE GLUCONATE 15 ML CUP MUCOUS MEM SCH ×2 (10:42→21:07)
[2022-08-14] MEDS: carBAMazepine 100 MG TAB.ER.12H PO SCH (10:42)
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
--- NOTE | 2022-08-14 11:43 | US ---
EXAMINATION TYPE: US kidneys/renal and bladder DATE OF EXAM: 08/14/2022 COMPARISON: CT 4 days ago. CLINICAL INDICATION: Male, 52 years old with history of elevated bun and c reatinine; Abnormal labs EXAM MEASUREMENTS: Right Kidney: 12.5 x 6.1 x 6.0 cm Left Kidney: 10.2 x 5.3 x 5.7 cm Immobile, vented pt in ICU, difficult visualization Right Kidney: No evidence of hydro Left Kidney: No evidence of hydro, very limited views due to defibrillator pads on left flank Bladder: Pt has cath in place There is no evidence for hydronephrosis at this point in time. No nephrolithiasis is seen. No ya s are identified. Bladder not evaluated due to Castillo catheter. IMPRESSION: No hydronephrosis is seen bilaterally.
--- NOTE | 2022-08-14 12:18 | P.PCN ---
Date of Procedure: 08/14/22 Operative Findings: Central line insertion Indication: Hemodynamic monitoring/Intravenous access. A time-out was completed verifying correct patient, procedure, site, positioning, and implant(s) or special equipment if applicable. The patient was placed in a dependent position appropriate for central line placement based on the vein to be cannulated. The patients right neck was prepped and draped in sterile fashion. 1% Lidocaine was used to anesthetize the surrounding skin area. A triple lumen 9F Cordis catheter was introduced into the right internal jugular vein using Seldinger technique. The catheter was threaded smoothly over the guide wire and appropriate blood return was obtained. Each lumen of the catheter was evacuated of air and flushed with sterile saline. The catheter was then sutured in place to the skin and a sterile dressing applied. Perfusion to the extremity distal to the point of catheter insertion was checked and found to be adequate. The patient tolerated the procedure well and there were no complications. Indication: Hemodynamic monitoring.
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
[2022-08-14] MEDS: PIPERACILLIN-TAZOBACTAM 3.375 GM in SODIUM CHLORIDE 0.9% 100 ML IVPB SCH ×2 (12:56→20:07)
[2022-08-14] MEDS: PSYLLIUM HUSK 100% 6 GM PACKET PO SCH (12:57)
[2022-08-14 13:10] LABS: Amorphous Sediment,Urine Few /hpf; Appearance,Urine Cloudy (Clear); Bacteria,Urine Rare /hpf; Bilirubin,Urine Negative (Negative); Blood,Urine Large (Negative); Color,Urine Yellow; Glucose,Urine (UA) Negative (Negative); Ketones,Urine Negative (Negative); Leukocyte Esterase,Urine Large (Negative); Mucus,Urine Rare /hpf; Nitrite,Urine Negative (Negative); Protein,Urine 2+ (Negative); RBC,Urine 61 /hpf (0-5); Specific Gravity,Urine 1.017 (1.001-1.035); Urobilinogen,Urine <2.0 mg/dL (<2.0); WBC,Urine 30 /hpf (0-5)
[2022-08-14 13:27] LABS: Glucose,Whole Blood 98 mg/dL (70-110)
[2022-08-14] MEDS: INSULIN ASPART (NovoLOG) 100 UNIT/ML VIAL SQ SCH ×3 (13:31→23:26)
[2022-08-14 13:35] LABS: ABG Base Excess 2.6 mmol/L; ABG HCO3 28 mmol/L (21-25); ABG Oxygen Saturation 98.5 % (94-97); ABG PCO2 49 mmHg (35-45); ABG PH 7.37 (7.35-7.45); ABG PO2 124 mmHg (83-108); ABG TCO2 29 mmol/L (19-24); Allen Test Performed? Yes
--- NOTE | 2022-08-14 13:51 | XR ---
EXAMINATION TYPE: XR chest 1V DATE OF EXAM: 08/14/2022 CLINICAL HISTORY: Central line insertion. TECHNIQUE: Single AP portable supine view of the chest is obtained. COMPARISON: Chest x-ray from earlier today an older studies FINDINGS: There is new left internal jugular central venous catheter terminating in SVC. No pneumoth orax is evident. Stable endotracheal and orogastric tubes. Stable mild cardiomegaly. Low lung volumes with bilateral m ultifocal increased opacities are redemonstrated. Findings consistent with bilateral multifocal edema and/or infiltrates. Osseous structures are intact. IMPRESSION: As above.
[2022-08-14 13:52] LABS: Calcium 7.8 mg/dL (8.4-10.2); Potassium 4.9 mmol/L (3.5-5.1)
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
--- NOTE | 2022-08-14 15:57 | P.PCN ---
Date of Procedure: 08/14/22 Preoperative Diagnosis: acute hypoxic respiratory failure Postoperative Diagnosis: Same Procedure(s) Performed: arterial line Anesthesia: local Surgeon: Rosy Veras Estimated Blood Loss (ml): 0 Pathology: other Condition: critical Disposition: ICU Operative Findings: Indication: Hemodynamic monitoring. A time-out was completed verifying correct patient, procedure, site, positioning, and implant(s) or special equipment if applicable. Allens test was performed to ensure adequate perfusion. The patients wrist was prepped and draped in sterile fashion. 1% Lidocaine was used to anesthetize the area. An 18G [place] arterial line was introduced into the right radial/artery. The catheter was threaded over the guide wire and the needle was removed with appropriate pulsatile blood return. Blood loss was minimal. The catheter was then sutured in place to the skin and a sterile dressing applied. Perfusion to the extremity distal to the point of catheter insertion was checked and found to be adequate. The patient tolerated the procedure well and there were no complications.
[2022-08-14 18:14] LABS: Glucose,Whole Blood 113 mg/dL (70-110)
[2022-08-14] MEDS: APIXABAN 2.5 MG TABLET PO SCH (21:07)
[2022-08-14] MEDS: LATANOPROST 0.005% OPHTH DROPS 2.5 ML BTL BOTH EYES SCH (21:07)
[2022-08-14] MEDS: NOREPINEPHRINE 8 MG in SODIUM CHLORIDE 0.9% 250 ML IV SCH (21:26)
[2022-08-14 23:24] LABS: Glucose,Whole Blood 159 mg/dL (70-110)
[2022-08-15 04:55] LABS: ABG Base Excess 0.4 mmol/L; ABG HCO3 26 mmol/L (21-25); ABG Oxygen Saturation 96.6 % (94-97); ABG PCO2 45 mmHg (35-45); ABG PH 7.36 (7.35-7.45); ABG PO2 76 mmHg (83-108); ABG TCO2 27 mmol/L (19-24)
[2022-08-15 04:57] LABS: Allen Test Performed? no
[2022-08-15 05:25] LABS: Glucose,Whole Blood 128 mg/dL (70-110)
[2022-08-15] MEDS: INSULIN ASPART (NovoLOG) 100 UNIT/ML VIAL SQ SCH ×3 (05:26→18:03)
[2022-08-15] MEDS: NOREPINEPHRINE 8 MG in SODIUM CHLORIDE 0.9% 250 ML IV SCH ×2 (06:01→19:30)
[2022-08-15] MEDS: PANTOPRAZOLE 40 MG TABLET PO SCH (06:02)
--- NOTE | 2022-08-15 06:22 | XR ---
EXAMINATION TYPE: XR chest 1V portable DATE OF EXAM: 08/15/2022 COMPARISON: 08/14/2022 HISTORY: SOB, Follow Up FINDINGS: Indwelling tubes and catheters are unchanged. Essentially stable perihilar and basilar infiltrates. Stable appearance of the cardio-mediastinal structures at this time. IMPRESSION: 1. Stable portable chest. Clinical correlation and follow up until resolution is recommended.
[2022-08-15 08:40] LABS: Basophils % (A) 0 %; Eosinophils # (A) 0.1 k/uL (0-0.7); Eosinophils % (A) 1 %; HCT 25.1 % (39.0-53.0); HGB 8.6 gm/dL (13.0-17.5); Lymphocytes # (A) 1.1 k/uL (1.0-4.8); Lymphocytes % (A) 9 %; MCH 31.7 pg (25.0-35.0); MCHC 34.2 g/dL (31.0-37.0); MCV 92.8 fL (80.0-100.0); Mean Platelet Volume 9.1; Monocytes # (A) 1.1 k/uL (0-1.0); Monocytes % (A) 9 %; Neutrophils # (A) 9.9 k/uL (1.3-7.7); Neutrophils % (A) 80 %; Platelet Count 265 k/uL (150-450); Poikilocytosis Slight; RBC 2.71 m/uL (4.30-5.90); RDW 15.1 % (11.5-15.5); WBC 12.4 k/uL (3.8-10.6)
[2022-08-15 09:10] LABS: Calcium 7.9 mg/dL (8.4-10.2); Potassium 4.8 mmol/L (3.5-5.1)
--- NOTE | 2022-08-15 09:50 | P.PN ---
Subjective Progress Note Date: 08/15/22 This is a morbidly obese 53-year-old male patient who arrived to us from the [facility]. The patient was the hospital and was discharged to the [facility] on 08/07/2022. He has multiple medical problems and comorbidities. He is morbidly obese with a body mass index of 49. He is diabetic and his blood sugars have been poorly controlled and he has a diabetic ones in his left lower extremity jacob and this is a deep wound reaching his bone. This has been evaluated by Dr. Coleman and the patient was given wound care treatment. He does have charcoal joints related to his diabetes mellitus. He does have a component of chronic kidney disease, stage III related to hypertensive nephrosclerosis. 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 Note that his previous creatinine has been in the range of 1.48 prior to him being discharged. Yesterday, the patient presented to the emergency department because of difficulties with ones. He initially denies having any other complaints. No reported fever or chills. The patient apparently told the emergency physician that he was unsure exactly why he was sent into the emergency. I'm going to check the [facility] records accordingly. Meanwhile, while in the emergency, the patient was found to be in acute kidney injury. He had significant abnormalities in his blood work and the patient had a initial the 119, creatinine of 7.2, sodium of 1:30, potassium of 7.3, bicarb of 20, lactic acid level of 3.2, troponin of 0.02, and his white cell count was at 9.2 with a hemoglobin 10.7 and a platelet count of 247. This was consistent with an acute kidney injury. At that point, nephrology was consulted. Arrangements were made for this patient to undergo dialysis as the patient was offered treatment for his hyperkalemia and he did not respond. In fact his repeat potassium was at 7.6. At that time, he was decided to dialyze this patient. Dialysis catheter was inserted in the right femoral vein. The patient while on dialysis was noted to be progressively more apneic. The blood gas was done and he was found to be in acute on top of chronic respiratory acidosis in addition to a component of metabolic acidosis. PH was at 7.16 with a pCO2 of 60 and pO2 of 84. It was decided to proceed with intubation mechanical ventilation to maintain his breathing. As such, the patient was intubated and he was sent to the intensive care unit. This morning, the patient remains intubated. He is on propofol running at 40 mcg/kg/m. He is calm and comfortable. He is on mechanical ventilator assist control mode at the rate of 20, tidal volume 600, FiO2 of 100% with a PEEP of 5. His peak airway pressure is 35. Follow-up blood gases showed a pH of 7.22 with a pCO2 of 51 and pO2 of 66. I reviewed the series of chest x-rays including the one that was done today. There is evidence of interstitial edema along with cardiomegaly. The orotracheal tube is in good location for now. The follow-up morning blood gases showed a pH of 7.22 with a pCO2 of 51 and pO2 of 66 and this was on FiO2 of 100%. At the same time, the patient became hypotensive. He is currently on norepinephrine running at 0.06 mcg/kg/m. IV fluids currently at normal saline at the rate of 75 mL an hour. He does not produce any urine output for the time being. He is afebrile for now. The findings on the case. The patient is receiving a full session of hemodialysis today. In fact, he is currently undergoing hemodialysis. Blood sugars from this morning was at 125, On today's evaluation of 08/13/2022, the patient is intubated on mechanical ventilator. He remains sedated on propofol running at 50 mcg/kg/m. His calm and comfortable and very much interested mechanical ventilator. He remains on assist-control mode at a rate of 26, tidal volume of 450, FiO2 of 70% with a PEEP of 8. Chest x-ray still showing interstitial edema consistent with CHF and volume overload. The tube is in a good location. The patient was given a triple-lumen catheter in his left IJ yesterday. Blood gas shows a pH of 7.36 with a pCO2 of 45 and pO2 of 76 and this was on FiO2 of 70%. No significant orotracheal secretions. The patient has mild leukocytosis with a white cell count of 12.4. He is on IV Zosyn as an empiric antibiotic coverage for now. Meanwhile, he underwent hemodialysis yesterday. His potassium level has dropped down to 4.8. On today's blood work, he has a BUN of 56 with a creatinine of 4.5. He has a Castillo catheter in place and the urine output is in order of 200 mL an hour as such his urine output has picked up and improves. The patient is being seen by nephrology. I'm not sure if we're proceeding with another session of hemodialysis today as the patient's urine output has improved. Further discussion with the with nephrology. Meanwhile, hemodynamically, he remains on low-dose pressors and norepinephrine is running at 0.09 mcg/kg/m. He remains on IV fluids at KVO. A wound VAC was applied to his left lower extremity. Sputum cultures and obtain a blood cultures were obtained and the results of those are still pending. He has not started enteral feeding yet. He is on NovoLog sliding scale coverage. He is also on long-term and coagulation with Eliquis at a dose of 2.5 mg twice a day. Objective - Vital Signs Vital signs: Vital Signs Temp 99.3 F 08/15/22 04:00 Pulse 65 08/15/22 06:30 Resp 26 H 08/15/22 06:30 BP 115/97 08/14/22 12:45 Pulse Ox 96 08/15/22 06:30 FiO2 70 08/15/22 08:49 Intake & Output 08/14/22 08/15/22 08/15/22 18:59 06:59 18:59 Intake Total 7353.884 8924.873 78 Output Total 1430 2040 275 Balance 467.611 -323.127 -197 Weight 148.3 kg Intake: IV 24 958 78 0.9 825 75 Piperacillin-Tazobactam 3 100 .375 gm In Sodium Chloride 0.9% 100 ml @ 25 mls/hr IVPB Q12HR [facility] Rx #:[id number] arterial line 24 33 3 Intake, IV Titration 1473.611 758.873 Amount Norepinephrine 4 mg In 193.543 79.852 Sodium Chloride 0.9% 250 ml @ 0.05 MCG/KG/MIN 26. 096 mls/hr IV .Q9H44M [facility] Rx#:[id number] Norepinephrine 8 mg In 226.281 Sodium Chloride 0.9% 250 ml @ 0.03 MCG/KG/MIN 7. 952 mls/hr IV .Q24H [facility] Rx#:[id number] Piperacillin-Tazobactam 3 100 .375 gm In Sodium Chloride 0.9% 100 ml @ 25 mls/hr IVPB Q12HR [facility] Rx #:[id number] Sodium Chloride 0.9% 1, 975 000 ml @ 75 mls/hr IV . [id number] [facility] Rx#:[id number] propofoL 1,000 mg In 205.068 452.740 Empty Bag 1 bag @ 15 MCG/ KG/MIN 12.329 mls/hr IV . Q8H7M [facility] Rx#:[id number] Hemodialysis 400 Output: Gastric Drainage 350 600 Urine 180 1440 275 Hemodialysis 900 Other: Voiding Method Indwelling Catheter Indwelling Catheter ABP, PAP, CO, CI - Last Documented Arterial Blood Pressure 126/52 - Exam Currently intubated on a mechanical ventilator, sedated on propofol, morbidly obese with a body mass index of 48.7 Head exam was generally normal. There was no scleral icterus or corneal arcus. Mucous membranes were moist. Neck was supple and without jugular venous distension, thyromegaly, or carotid bruits. Carotids were easily palpable bilaterally. There was no adenopathy. Lungs sounds are diminished bilaterally and there is some limited bibasilar crackles Cardiac exam revealed the PMI to be normally situated and sized. The rhythm was regular and no extrasystoles were noted during several minutes of auscultation. The first and second heart sounds were normal and physiologic splitting of the second heart sound was noted. There were no murmurs, rubs, clicks, or gallops. Abdominal exam revealed normal bowel sounds. The abdomen was soft, non-tender, and without masses, organomegaly, or appreciable enlargement of the abdominal aorta. Extremities are chronically edematous and there is evidence of chronic venous stasis. There is at least a 7 cm x 5 cm left lower extremity ones, no surrounding erythema, the wound surface is quite irregular, this is a deep 1 which is probably 1 cm deep and bone is being visualized. There is no active drainage. No purulence. No necrosis. He does have Charcot joints in his lower extremities. He does have chronic lower oximetry edema along with chronic venous stasis a pulse of diminished lower oximetry is bilaterally. Neurologically, the patient is sedated, and I was told that the patient was quite awake prior to him being intubated. Pupils are equal and reactive to light. He withdraws to painful stimulation. - Labs CBC & Chem 7: 08/15/22 08:27 08/15/22 08:27 Labs: Abnormal Lab Results - Last 24 Hours (Table) 08/14/22 08/14/22 08/14/22 Range/Units 11:44 13:00 13:00 WBC (3.8-10.6) k/uL RBC (4.30-5.90) m/uL Hgb (13.0-17.5) gm/dL Hct (39.0-53.0) % Neutrophils # (1.3-7.7) k/uL Monocytes # (0-1.0) k/uL ABG pCO2 (35-45) mmHg ABG pO2 (83-108) mmHg ABG HCO3 (21-25) mmol/L ABG Total CO2 (19-24) mmol/L ABG O2 Saturation (94-97) % Sodium 134 L (137-145) mmol/L Chloride 97 L (98-107) mmol/L BUN 52 H (9-20) mg/dL Creatinine 3.87 H (0.66-1.25) mg/dL Glucose (74-99) mg/dL POC Glucose (mg/dL) (70-110) mg/dL Hemoglobin A1c 8.6 H (0.0-6.0) % Calcium 7.8 L (8.4-10.2) mg/dL Urine Protein 2+ H (Negative) Urine Blood Large H (Negative) Ur Leukocyte Esterase Large H (Negative) Urine RBC 61 H (0-5) /hpf Urine WBC 30 H (0-5) /hpf Amorphous Sediment Few H (None) /hpf Urine Bacteria Rare H (None) /hpf Urine Mucus Rare H (None) /hpf 08/14/22 08/14/22 08/14/22 Range/Units 13:32 18:12 23:22 WBC (3.8-10.6) k/uL RBC (4.30-5.90) m/uL Hgb (13.0-17.5) gm/dL Hct (39.0-53.0) % Neutrophils # (1.3-7.7) k/uL Monocytes # (0-1.0) k/uL ABG pCO2 49 H (35-45) mmHg ABG pO2 124 H (83-108) mmHg ABG HCO3 28 H (21-25) mmol/L ABG Total CO2 29 H (19-24) mmol/L ABG O2 Saturation 98.5 H (94-97) % Sodium (137-145) mmol/L Chloride (98-107) mmol/L BUN (9-20) mg/dL Creatinine (0.66-1.25) mg/dL Glucose (74-99) mg/dL POC Glucose (mg/dL) 113 H 159 H (70-110) mg/dL Hemoglobin A1c (0.0-6.0) % Calcium (8.4-10.2) mg/dL Urine Protein (Negative) Urine Blood (Negative) Ur Leukocyte Esterase (Negative) Urine RBC (0-5) /hpf Urine WBC (0-5) /hpf Amorphous Sediment (None) /hpf Urine Bacteria (None) /hpf Urine Mucus (None) /hpf 08/15/22 08/15/22 08/15/22 Range/Units 04:50 05:24 08:27 WBC 12.4 H (3.8-10.6) k/uL RBC 2.71 L (4.30-5.90) m/uL Hgb 8.6 L (13.0-17.5) gm/dL Hct 25.1 L (39.0-53.0) % Neutrophils # 9.9 H (1.3-7.7) k/uL Monocytes # 1.1 H (0-1.0) k/uL ABG pCO2 (35-45) mmHg ABG pO2 76 L (83-108) mmHg ABG HCO3 26 H (21-25) mmol/L ABG Total CO2 27 H (19-24) mmol/L ABG O2 Saturation (94-97) % Sodium (137-145) mmol/L Chloride (98-107) mmol/L BUN (9-20) mg/dL Creatinine (0.66-1.25) mg/dL Glucose (74-99) mg/dL POC Glucose (mg/dL) 128 H (70-110) mg/dL Hemoglobin A1c (0.0-6.0) % Calcium (8.4-10.2) mg/dL Urine Protein (Negative) Urine Blood (Negative) Ur Leukocyte Esterase (Negative) Urine RBC (0-5) /hpf Urine WBC (0-5) /hpf Amorphous Sediment (None) /hpf Urine Bacteria (None) /hpf Urine Mucus (None) /hpf 08/15/22 Range/Units 08:27 WBC (3.8-10.6) k/uL RBC (4.30-5.90) m/uL Hgb (13.0-17.5) gm/dL Hct (39.0-53.0) % Neutrophils # (1.3-7.7) k/uL Monocytes # (0-1.0) k/uL ABG pCO2 (35-45) mmHg ABG pO2 (83-108) mmHg ABG HCO3 (21-25) mmol/L ABG Total CO2 (19-24) mmol/L ABG O2 Saturation (94-97) % Sodium 135 L (137-145) mmol/L Chloride (98-107) mmol/L BUN 56 H (9-20) mg/dL Creatinine 4.51 H (0.66-1.25) mg/dL Glucose 119 H (74-99) mg/dL POC Glucose (mg/dL) (70-110) mg/dL Hemoglobin A1c (0.0-6.0) % Calcium 7.9 L (8.4-10.2) mg/dL Urine Protein (Negative) Urine Blood (Negative) Ur Leukocyte Esterase (Negative) Urine RBC (0-5) /hpf Urine WBC (0-5) /hpf Amorphous Sediment (None) /hpf Urine Bacteria (None) /hpf Urine Mucus (None) /hpf Microbiology - Last 24 Hours (Table) 08/14/22 01:00 Gram Stain - Preliminary Sputum Sputum Culture - Preliminary Assessment and Plan Plan: Acute on top of chronic kidney disease. The patient is an acute kidney injury with persistent hyperkalemia, not responsive to medical management and the patient underwent a session of hemodialysis yesterday. Urine output is improved since yesterday and currently is producing up to 200 mL an hour of urine output.. Consider also possibility of drug effect as the patient was taken a combination of diuretics and fara inhibitors on outpatient basis. Chronic stage III kidney disease related to hypertensive/diabetic nephropathy Acute hypoxic/hypercapnic respiratory failure on top of chronic hypoxemic and hypercapnic respiratory failure, likely related to diastolic congestive heart failure exacerbation, morbid obesity, and sleep apnea syndrome. The decompensated infected with the fluid overload as the patient is interstitial edema/pulmonary edema on his chest x-rays. Currently intubated on mechanical ventilator. The chest x-ray still showing interstitial edema Acute hyperkalemia, recovered and the potassium level is normalized Diastolic heart failure with a preserved LV function and ejection fraction of 55%. Pulmonary artery pressures was not established Diabetes mellitus type 2, insulin-dependent Diabetic left lower extremity ulcer, deep reaching the bone with possibility of osteomyelitis, this is a chronic nonhealing wound and the anterior aspect of the left lower extremity Hypotension, currently on low-dose norepinephrine as the patient is being di alyzed. Exact cause is not clear. Hypertension could be potentially septic in nature. Charcoal joints Chronic lower extremity edema and chronic venous stasis of the legs bilaterally Severe obstructive sleep apnea syndrome, on home BiPAP. Chronic hypoxemic respiratory failure. Morbid obesity. BMI 51.8 kg per metered square History of hyperlipidemia. History of diabetes with diabetic neuropathy. History of chronic pain syndrome. History of hypertension. History of gastroesophageal reflux disease. History of factor V deficiency. history of DVT. Morbid obesity with a body mass index of 48. Chronic use of diuretics on outpatient basis including Aldactone and Zaroxolyn and Lasix History of diverticulosis History of chronic back pain Anemia of chronic disease Plan Keep the patient sedated with propofol Not ready for weaning yet Continue vent support. No ventilator changes for today Continue monitoring the urine output and discuss with nephrology the potential another session of hemodialysis today. He continues to have signs of fluid overload and interstitial edema and is not ready for weaning at this point in time. Ultrasound of the kidneys to rule out hydronephrosis Complete hemodialysis today Nephrology has been consulted Cover The patient empirically with IV Zosyn Continue pressors to maintain an support his blood pressure Initiate enteral feeding for nutritional support with Nepro only at 10 mL an hour We'll initiate enteral feeding within next 24 hours Eliquis a dose of 2.5 mg twice a day. Most recent echocardiogram from recent admission was within normal limits and the patient has a preserved LV function Consult wound care services, the patient has a wound VAC in place Condition is critical and we'll continue to follow make further recommendations based on his progress. Condition remains critical and the patient will be kept intubated for now. Not ready for weaning yet. Overall condition is more stable compared to yesterday. We'll continue to follow. There is a critical care evaluation that was done in > 30 min Time with Patient: Greater than 30
[2022-08-15] MEDS: NON FORMULARY DRUG (Lubiprostone [Amitiza] 24 MCG Capsule) PO SCH ×2 (09:52→20:28)
[2022-08-15] MEDS: PIPERACILLIN-TAZOBACTAM 3.375 GM in SODIUM CHLORIDE 0.9% 100 ML IVPB SCH ×2 (10:01→20:28)
[2022-08-15] MEDS: DULoxetine HCL 30 MG CAPSULE.DR PO SCH (10:02)
[2022-08-15] MEDS: PSYLLIUM HUSK 100% 6 GM PACKET PO SCH (10:02)
[2022-08-15] MEDS: SIMETHICONE 80 MG CHEWABLE PO SCH ×4 (10:02→23:36)
[2022-08-15] MEDS: LACTULOSE 20 GM/30 ML CUP PO SCH ×2 (10:02→20:28)
[2022-08-15] MEDS: ATORVASTATIN 80 MG TAB PO SCH (10:02)
[2022-08-15] MEDS: CHLORHEXIDINE GLUCONATE 15 ML CUP MUCOUS MEM SCH ×2 (10:02→20:28)
[2022-08-15] MEDS: APIXABAN 2.5 MG TABLET PO SCH ×2 (10:03→20:28)
[2022-08-15] MEDS: carBAMazepine 100 MG TAB.ER.12H PO SCH (10:03)
[2022-08-15] MEDS: TAMSULOSIN 0.4 MG CAP.ER.24H PO SCH (10:03)
--- NOTE | 2022-08-15 10:53 | P.PN ---
Subjective Patient is seen in follow-up for acute kidney injury. Underwent hemodialysis 08/14/2022 for hyperkalemia. Patient now nonoliguric with urine output about 200 mL an hour for the last few hours. Intubated. Vital signs are stable. On Levophed. General: Resting in bed. HEENT: Intubated. LUNGS: Scattered rhonchi. HEART: Rate and Rhythm are regular. ABDOMEN: Obese. EXTREMITITES: Chronic changes noted. Wound VAC noted. Objective - Vital Signs Vital signs: Vital Signs Temp 99.3 F 08/15/22 04:00 Pulse 65 08/15/22 06:30 Resp 26 H 08/15/22 06:30 BP 115/97 08/14/22 12:45 Pulse Ox 96 08/15/22 06:30 FiO2 70 08/15/22 08:49 Intake & Output 08/14/22 08/15/22 08/15/22 18:59 06:59 18:59 Intake Total 2301.772 9343.873 178 Output Total 1430 2040 275 Balance 467.611 -323.127 -97 Weight 148.3 kg Intake: IV 24 958 78 0.9 825 75 Piperacillin-Tazobactam 3 100 .375 gm In Sodium Chloride 0.9% 100 ml @ 25 mls/hr IVPB Q12HR [facility] Rx #:[id number] arterial line 24 33 3 Intake, IV Titration 1473.611 758.873 100 Amount Norepinephrine 4 mg In 193.543 79.852 Sodium Chloride 0.9% 250 ml @ 0.05 MCG/KG/MIN 26. 096 mls/hr IV .Q9H44M [facility] Rx#:[id number] Norepinephrine 8 mg In 226.281 Sodium Chloride 0.9% 250 ml @ 0.03 MCG/KG/MIN 7. 952 mls/hr IV .Q24H [facility] Rx#:[id number] Piperacillin-Tazobactam 3 100 .375 gm In Sodium Chloride 0.9% 100 ml @ 25 mls/hr IVPB Q12HR [facility] Rx #:[id number] Sodium Chloride 0.9% 1, 975 000 ml @ 75 mls/hr IV . [id number] [facility] Rx#:[id number] propofoL 1,000 mg In 205.068 452.740 100 Empty Bag 1 bag @ 15 MCG/ KG/MIN 12.329 mls/hr IV . Q8H7M [facility] Rx#:[id number] Hemodialysis 400 Output: Gastric Drainage 350 600 Urine 180 1440 275 Hemodialysis 900 Other: Voiding Method Indwelling Catheter Indwelling Catheter ABP, PAP, CO, CI - Last Documented Arterial Blood Pressure 126/52 - Labs CBC & Chem 7: 08/15/22 08:27 08/15/22 08:27 Labs: Abnormal Lab Results - Last 24 Hours (Table) 08/14/22 08/14/22 08/14/22 Range/Units 11:44 13:00 13:00 WBC (3.8-10.6) k/uL RBC (4.30-5.90) m/uL Hgb (13.0-17.5) gm/dL Hct (39.0-53.0) % Neutrophils # (1.3-7.7) k/uL Monocytes # (0-1.0) k/uL ABG pCO2 (35-45) mmHg ABG pO2 (83-108) mmHg ABG HCO3 (21-25) mmol/L ABG Total CO2 (19-24) mmol/L ABG O2 Saturation (94-97) % Sodium 134 L (137-145) mmol/L Chloride 97 L (98-107) mmol/L BUN 52 H (9-20) mg/dL Creatinine 3.87 H (0.66-1.25) mg/dL Glucose (74-99) mg/dL POC Glucose (mg/dL) (70-110) mg/dL Hemoglobin A1c 8.6 H (0.0-6.0) % Calcium 7.8 L (8.4-10.2) mg/dL Urine Protein 2+ H (Negative) Urine Blood Large H (Negative) Ur Leukocyte Esterase Large H (Negative) Urine RBC 61 H (0-5) /hpf Urine WBC 30 H (0-5) /hpf Amorphous Sediment Few H (None) /hpf Urine Bacteria Rare H (None) /hpf Urine Mucus Rare H (None) /hpf 08/14/22 08/14/22 08/14/22 Range/Units 13:32 18:12 23:22 WBC (3.8-10.6) k/uL RBC (4.30-5.90) m/uL Hgb (13.0-17.5) gm/dL Hct (39.0-53.0) % Neutrophils # (1.3-7.7) k/uL Monocytes # (0-1.0) k/uL ABG pCO2 49 H (35-45) mmHg ABG pO2 124 H (83-108) mmHg ABG HCO3 28 H (21-25) mmol/L ABG Total CO2 29 H (19-24) mmol/L ABG O2 Saturation 98.5 H (94-97) % Sodium (137-145) mmol/L Chloride (98-107) mmol/L BUN (9-20) mg/dL Creatinine (0.66-1.25) mg/dL Glucose (74-99) mg/dL POC Glucose (mg/dL) 113 H 159 H (70-110) mg/dL Hemoglobin A1c (0.0-6.0) % Calcium (8.4-10.2) mg/dL Urine Protein (Negative) Urine Blood (Negative) Ur Leukocyte Esterase (Negative) Urine RBC (0-5) /hpf Urine WBC (0-5) /hpf Amorphous Sediment (None) /hpf Urine Bacteria (None) /hpf Urine Mucus (None) /hpf 08/15/22 08/15/22 08/15/22 Range/Units 04:50 05:24 08:27 WBC 12.4 H (3.8-10.6) k/uL RBC 2.71 L (4.30-5.90) m/uL Hgb 8.6 L (13.0-17.5) gm/dL Hct 25.1 L (39.0-53.0) % Neutrophils # 9.9 H (1.3-7.7) k/uL Monocytes # 1.1 H (0-1.0) k/uL ABG pCO2 (35-45) mmHg ABG pO2 76 L (83-108) mmHg ABG HCO3 26 H (21-25) mmol/L ABG Total CO2 27 H (19-24) mmol/L ABG O2 Saturation (94-97) % Sodium (137-145) mmol/L Chloride (98-107) mmol/L BUN (9-20) mg/dL Creatinine (0.66-1.25) mg/dL Glucose (74-99) mg/dL POC Glucose (mg/dL) 128 H (70-110) mg/dL Hemoglobin A1c (0.0-6.0) % Calcium (8.4-10.2) mg/dL Urine Protein (Negative) Urine Blood (Negative) Ur Leukocyte Esterase (Negative) Urine RBC (0-5) /hpf Urine WBC (0-5) /hpf Amorphous Sediment (None) /hpf Urine Bacteria (None) /hpf Urine Mucus (None) /hpf 08/15/22 Range/Units 08:27 WBC (3.8-10.6) k/uL RBC (4.30-5.90) m/uL Hgb (13.0-17.5) gm/dL Hct (39.0-53.0) % Neutrophils # (1.3-7.7) k/uL Monocytes # (0-1.0) k/uL ABG pCO2 (35-45) mmHg ABG pO2 (83-108) mmHg ABG HCO3 (21-25) mmol/L ABG Total CO2 (19-24) mmol/L ABG O2 Saturation (94-97) % Sodium 135 L (137-145) mmol/L Chloride (98-107) mmol/L BUN 56 H (9-20) mg/dL Creatinine 4.51 H (0.66-1.25) mg/dL Glucose 119 H (74-99) mg/dL POC Glucose (mg/dL) (70-110) mg/dL Hemoglobin A1c (0.0-6.0) % Calcium 7.9 L (8.4-10.2) mg/dL Urine Protein (Negative) Urine Blood (Negative) Ur Leukocyte Esterase (Negative) Urine RBC (0-5) /hpf Urine WBC (0-5) /hpf Amorphous Sediment (None) /hpf Urine Bacteria (None) /hpf Urine Mucus (None) /hpf Microbiology - Last 24 Hours (Table) 08/13/22 13:40 Blood Culture - Preliminary Blood 08/13/22 14:00 Blood Culture - Preliminary Blood 08/14/22 01:00 Gram Stain - Preliminary Sputum Sputum Culture - Preliminary Assessment and Plan Plan: Assessment: 1. Acute kidney injury secondary to ATN secondary to shock, likely septic. Also component of contrast-induced acute kidney injury. Oliguric. Creatinine 7.27 on admission. Creatinine in May 2022 as low as 0.87. No hydronephrosis noted on imaging.. Status post hemodialysis 08/14/2022 due to persistent hyperkalemia. Was oliguric but now nonoliguric. 2. Hyperkalemia secondary to acute kidney injury, spironolactone, lisinopril and potassium supplementation. Improved. 3. Lower extremity wounds on IV antibiotics. Also has wound VAC. 4. Diabetes mellitus. 5. Metabolic acidosis secondary to acute kidney injury, metformin. Improved. 6. Shock, likely septic. On Levophed. Plan: Hold off on hemodialysis. Maintain normal saline at 75 mL an hour. Wean FiO2 and vasopressors. Follow-up cultures. Monitor for renal recovery. Continue to monitor renal function and urine output. Tube feeds to be started today.
[2022-08-15 11:54] LABS: Glucose,Whole Blood 148 mg/dL (70-110)
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
[2022-08-15 17:52] LABS: Glucose,Whole Blood 143 mg/dL (70-110)
[2022-08-15] MEDS: SODIUM CHLORIDE 0.9% 1,000 ML IV SCH (18:11)
[2022-08-15] MEDS: LATANOPROST 0.005% OPHTH DROPS 2.5 ML BTL BOTH EYES SCH (20:28)
[2022-08-15 23:57] LABS: Glucose,Whole Blood 188 mg/dL (70-110)
[2022-08-16] MEDS: INSULIN ASPART (NovoLOG) 100 UNIT/ML VIAL SQ SCH ×4 (00:49→17:28)
[2022-08-16] MEDS: NOREPINEPHRINE 8 MG in SODIUM CHLORIDE 0.9% 250 ML IV SCH ×2 (03:41→20:37)
[2022-08-16 04:44] LABS: ABG Base Excess 1.6 mmol/L; ABG HCO3 27 mmol/L (21-25); ABG Oxygen Saturation 98.7 % (94-97); ABG PCO2 46 mmHg (35-45); ABG PH 7.38 (7.35-7.45); ABG PO2 97 mmHg (83-108); ABG TCO2 28 mmol/L (19-24)
[2022-08-16 04:49] LABS: Allen Test Performed? no
[2022-08-16 05:45] LABS: Glucose,Whole Blood 194 mg/dL (70-110)
[2022-08-16] MEDS: PANTOPRAZOLE 40 MG TABLET PO SCH (05:51)
--- NOTE | 2022-08-16 07:07 | XR ---
EXAMINATION TYPE: XR chest 1V portable DATE OF EXAM: 08/16/2022 COMPARISON: 08/15/2022 HISTORY: SOB, Follow Up FINDINGS: Indwelling tubes and catheters are unchanged. Scattered reticulonodular infiltrates throughout both lung garcia remain stable. Stable appearance of the cardio-mediastinal structures at this time. No sizable pleural effusions seen. IMPRESSION: 1. Stable portable chest. Clinical correlation and follow up until resolution is recommended.
[2022-08-16 08:06] LABS: Basophils % (A) 0 %; Eosinophils # (A) 0.3 k/uL (0-0.7); Eosinophils % (A) 4 %; HCT 24.9 % (39.0-53.0); HGB 8.3 gm/dL (13.0-17.5); Lymphocytes # (A) 0.5 k/uL (1.0-4.8); Lymphocytes % (A) 6 %; MCH 31.2 pg (25.0-35.0); MCHC 33.5 g/dL (31.0-37.0); MCV 93.1 fL (80.0-100.0); Mean Platelet Volume 8.4; Monocytes # (A) 0.7 k/uL (0-1.0); Monocytes % (A) 8 %; Neutrophils # (A) 7.1 k/uL (1.3-7.7); Neutrophils % (A) 80 %; Platelet Count 232 k/uL (150-450); Poikilocytosis Slight; RBC 2.67 m/uL (4.30-5.90); WBC 8.8 k/uL (3.8-10.6)
[2022-08-16 08:10] LABS: Calcium 8.1 mg/dL (8.4-10.2); Potassium 4.4 mmol/L (3.5-5.1)
[2022-08-16] MEDS: NON FORMULARY DRUG (Lubiprostone [Amitiza] 24 MCG Capsule) PO SCH ×2 (08:14→20:41)
[2022-08-16] MEDS: PIPERACILLIN-TAZOBACTAM 3.375 GM in SODIUM CHLORIDE 0.9% 100 ML IVPB SCH ×2 (08:31→20:39)
[2022-08-16] MEDS: SIMETHICONE 80 MG CHEWABLE PO SCH ×4 (08:31→20:40)
[2022-08-16] MEDS: carBAMazepine 100 MG TAB.ER.12H PO SCH (08:31)
[2022-08-16] MEDS: DULoxetine HCL 30 MG CAPSULE.DR PO SCH (08:31)
[2022-08-16] MEDS: TAMSULOSIN 0.4 MG CAP.ER.24H PO SCH (08:31)
[2022-08-16] MEDS: PSYLLIUM HUSK 100% 6 GM PACKET PO SCH (08:31)
[2022-08-16] MEDS: APIXABAN 2.5 MG TABLET PO SCH ×2 (08:31→20:39)
[2022-08-16] MEDS: CHLORHEXIDINE GLUCONATE 15 ML CUP MUCOUS MEM SCH ×2 (08:31→20:39)
[2022-08-16] MEDS: ATORVASTATIN 80 MG TAB PO SCH (08:31)
[2022-08-16] MEDS: LACTULOSE 20 GM/30 ML CUP PO SCH ×2 (08:31→20:39)
[2022-08-16] MEDS: SODIUM CHLORIDE 0.9% 1,000 ML IV SCH (09:37)
[2022-08-16] MEDS: ACETAMINOPHEN TAB 325 MG TAB PO PRN (09:37)
--- NOTE | 2022-08-16 09:42 | P.PN ---
Subjective Patient is seen in follow-up for acute kidney injury. Underwent hemodialysis 08/14/2022 for hyperkalemia. Patient now nonoliguric with urine output >200 mL an hour. Intubated. On Levophed. Receiving tube feeds. Vital signs are stable. On Levophed. General: Resting in bed. HEENT: Intubated. LUNGS: Scattered rhonchi. HEART: Rate and Rhythm are regular. ABDOMEN: Obese. EXTREMITITES: Chronic changes noted. Wound VAC noted. Objective - Vital Signs Vital signs: Vital Signs Temp 101.3 F H 08/16/22 08:00 Pulse 76 08/16/22 09:00 Resp 26 H 08/16/22 09:00 BP 115/97 08/14/22 12:45 Pulse Ox 98 08/16/22 09:00 FiO2 70 08/16/22 08:18 Intake & Output 08/15/22 08/16/22 08/16/22 18:59 06:59 18:59 Intake Total 6438.704 8421.763 293.671 Output Total 3050 4480 555 Balance -1308.329 -2556.237 -261.329 Weight 143.5 kg Intake: IV 1036 1036 156 0.9 900 900 150 Piperacillin-Tazobactam 3 100 100 .375 gm In Sodium Chloride 0.9% 100 ml @ 25 mls/hr IVPB Q12HR [facility] Rx #:[id number] arterial line 36 36 6 Intake, IV Titration 645.671 677.763 87.671 Amount Norepinephrine 8 mg In 258.00 210.640 Sodium Chloride 0.9% 250 ml @ 0.03 MCG/KG/MIN 7. 952 mls/hr IV .Q24H [facility] Rx#:[id number] propofoL 1,000 mg In 387.671 467.123 87.671 Empty Bag 1 bag @ 15 MCG/ KG/MIN 12.329 mls/hr IV . Q8H7M [facility] Rx#:[id number] Tube Feeding 30 120 20 Other 30 90 30 Output: Urine 3050 4480 555 Other: Voiding Method Indwelling Catheter Indwelling Catheter ABP, PAP, CO, CI - Last Documented Arterial Blood Pressure 160/61 - Labs CBC & Chem 7: 08/16/22 04:35 08/16/22 04:35 Labs: Abnormal Lab Results - Last 24 Hours (Table) 08/15/22 08/15/22 08/15/22 Range/Units 11:52 17:50 23:56 RBC (4.30-5.90) m/uL Hgb (13.0-17.5) gm/dL Hct (39.0-53.0) % Lymphocytes # (1.0-4.8) k/uL ABG pCO2 (35-45) mmHg ABG HCO3 (21-25) mmol/L ABG Total CO2 (19-24) mmol/L ABG O2 Saturation (94-97) % BUN (9-20) mg/dL Creatinine (0.66-1.25) mg/dL Glucose (74-99) mg/dL POC Glucose (mg/dL) 148 H 143 H 188 H (70-110) mg/dL Calcium (8.4-10.2) mg/dL 08/16/22 08/16/22 08/16/22 Range/Units 04:35 04:35 04:42 RBC 2.67 L (4.30-5.90) m/uL Hgb 8.3 L (13.0-17.5) gm/dL Hct 24.9 L (39.0-53.0) % Lymphocytes # 0.5 L (1.0-4.8) k/uL ABG pCO2 46 H (35-45) mmHg ABG HCO3 27 H (21-25) mmol/L ABG Total CO2 28 H (19-24) mmol/L ABG O2 Saturation 98.7 H (94-97) % BUN 51 H (9-20) mg/dL Creatinine 4.03 H (0.66-1.25) mg/dL Glucose 177 H (74-99) mg/dL POC Glucose (mg/dL) (70-110) mg/dL Calcium 8.1 L (8.4-10.2) mg/dL 08/16/22 Range/Units 05:43 RBC (4.30-5.90) m/uL Hgb (13.0-17.5) gm/dL Hct (39.0-53.0) % Lymphocytes # (1.0-4.8) k/uL ABG pCO2 (35-45) mmHg ABG HCO3 (21-25) mmol/L ABG Total CO2 (19-24) mmol/L ABG O2 Saturation (94-97) % BUN (9-20) mg/dL Creatinine (0.66-1.25) mg/dL Glucose (74-99) mg/dL POC Glucose (mg/dL) 194 H (70-110) mg/dL Calcium (8.4-10.2) mg/dL Microbiology - Last 24 Hours (Table) 08/15/22 16:39 Urine Culture - Preliminary Urine,Catheterized 08/14/22 01:00 Gram Stain - Preliminary Sputum Sputum Culture - Preliminary Pseudomonas spec 08/13/22 13:40 Blood Culture - Preliminary Blood 08/13/22 14:00 Blood Culture - Preliminary Blood Assessment and Plan Plan: Assessment: 1. Acute kidney injury secondary to ATN secondary to shock, likely septic. Also component of contrast-induced acute kidney injury. Oliguric. Creatinine 7.27 on admission. Creatinine in May 2022 as low as 0.87. No hydronephrosis noted on imaging. Status post hemodialysis 08/14/2022 due to persistent hyperkalemia. Was oliguric initially but now nonoliguric. Creatinine 4.03 today. 2. Hyperkalemia secondary to acute kidney injury, spironolactone, lisinopril and potassium supplementation. Improved. 3. Lower extremity wounds on IV antibiotics. Also has wound VAC. 4. Diabetes mellitus. 5. Metabolic acidosis secondary to acute kidney injury, metformin. Improved. 6. Shock, likely septic. On Levophed. Plan: Continue to hold off on hemodialysis. Continue to assess need for renal replacement therapy on daily basis. Maintain IV fluids. Tube feeds started yesterday. Wean FiO2 and vasopressors. Follow-up cultures. Monitor for renal recovery. Continue to monitor renal function and urine output.
--- NOTE | 2022-08-16 09:53 | P.PN ---
Subjective Progress Note Date: 08/16/22 This is a morbidly obese 53-year-old male patient who arrived to us from the [facility]. The patient was the hospital and was discharged to the [facility] on 08/07/2022. He has multiple medical problems and comorbidities. He is morbidly obese with a body mass index of 49. He is diabetic and his blood sugars have been poorly controlled and he has a diabetic ones in his left lower extremity jacob and this is a deep wound reaching his bone. This has been evaluated by Dr. Coleman and the patient was given wound care treatment. He does have charcoal joints related to his diabetes mellitus. He does have a component of chronic kidney disease, stage III related to hypertensive nephrosclerosis. 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 Note that his previous creatinine has been in the range of 1.48 prior to him being discharged. Yesterday, the patient presented to the emergency department because of difficulties with ones. He initially denies having any other complaints. No reported fever or chills. The patient apparently told the emergency physician that he was unsure exactly why he was sent into the emergency. I'm going to check the [facility] records accordingly. Meanwhile, while in the emergency, the patient was found to be in acute kidney injury. He had significant abnormalities in his blood work and the patient had a initial the 119, creatinine of 7.2, sodium of 1:30, potassium of 7.3, bicarb of 20, lactic acid level of 3.2, troponin of 0.02, and his white cell count was at 9.2 with a hemoglobin 10.7 and a platelet count of 247. This was consistent with an acute kidney injury. At that point, nephrology was consulted. Arrangements were made for this patient to undergo dialysis as the patient was offered treatment for his hyperkalemia and he did not respond. In fact his repeat potassium was at 7.6. At that time, he was decided to dialyze this patient. Dialysis catheter was inserted in the right femoral vein. The patient while on dialysis was noted to be progressively more apneic. The blood gas was done and he was found to be in acute on top of chronic respiratory acidosis in addition to a component of metabolic acidosis. PH was at 7.16 with a pCO2 of 60 and pO2 of 84. It was decided to proceed with intubation mechanical ventilation to maintain his breathing. As such, the patient was intubated and he was sent to the intensive care unit. This morning, the patient remains intubated. He is on propofol running at 40 mcg/kg/m. He is calm and comfortable. He is on mechanical ventilator assist control mode at the rate of 20, tidal volume 600, FiO2 of 100% with a PEEP of 5. His peak airway pressure is 35. Follow-up blood gases showed a pH of 7.22 with a pCO2 of 51 and pO2 of 66. I reviewed the series of chest x-rays including the one that was done today. There is evidence of interstitial edema along with cardiomegaly. The orotracheal tube is in good location for now. The follow-up morning blood gases showed a pH of 7.22 with a pCO2 of 51 and pO2 of 66 and this was on FiO2 of 100%. At the same time, the patient became hypotensive. He is currently on norepinephrine running at 0.06 mcg/kg/m. IV fluids currently at normal saline at the rate of 75 mL an hour. He does not produce any urine output for the time being. He is afebrile for now. The findings on the case. The patient is receiving a full session of hemodialysis today. In fact, he is currently undergoing hemodialysis. Blood sugars from this morning was at 125, On today's evaluation of 08/15/2022, the patient is intubated on mechanical ventilator. He remains sedated on propofol running at 50 mcg/kg/m. His calm and comfortable and very much interested mechanical ventilator. He remains on assist-control mode at a rate of 26, tidal volume of 450, FiO2 of 70% with a PEEP of 8. Chest x-ray still showing interstitial edema consistent with CHF and volume overload. The tube is in a good location. The patient was given a triple-lumen catheter in his left IJ yesterday. Blood gas shows a pH of 7.36 with a pCO2 of 45 and pO2 of 76 and this was on FiO2 of 70%. No significant orotracheal secretions. The patient has mild leukocytosis with a white cell count of 12.4. He is on IV Zosyn as an empiric antibiotic coverage for now. Meanwhile, he underwent hemodialysis yesterday. His potassium level has dropped down to 4.8. On today's blood work, he has a BUN of 56 with a creatinine of 4.5. He has a Castillo catheter in place and the urine output is in order of 200 mL an hour as such his urine output has picked up and improves. The patient is being seen by nephrology. I'm not sure if we're proceeding with another session of hemodialysis today as the patient's urine output has improved. Further discussion with the with nephrology. Meanwhile, hemodynamically, he remains on low-dose pressors and norepinephrine is running at 0.09 mcg/kg/m. He remains on IV fluids at KVO. A wound VAC was applied to his left lower extremity. Sputum cultures and obtain a blood cultures were obtained and the results of those are still pending. He has not started enteral feeding yet. He is on NovoLog sliding scale coverage. He is also on long-term and coagulation with Eliquis at a dose of 2.5 mg twice a day. 08/16/2022, the patient remains intubated on a mechanical ventilator. He remains on propofol running at 50 mcg/kg/m his adequately sedated. He started spiking temperature as of this morning and a T-max was 101.3. As such, further fever workup is being done. Meanwhile, there is a concern that the patient may have a pneumonia on top of his CHF and fluid overload. Sputum is positive for Pseudomonas species and the patient is currently on IV Zosyn. The chest x-ray still showing interstitial infiltrates bilaterally, no consolidation. Blood gas from today shows a pH of 7.38 with episodes of 46 and pO2 of 97. As such, his oxygenation is improved compared to yesterday. He remains on the same ventilator settings with a assist-control mode at the rate of 26, tidal volume of 450, FiO2 of 70% and a PEEP of 8. Peak airway pressure is 40. He is not going to get dialyzed today as the patient is producing copious amount of urine output. I was told that his urine output at times is at high as 500 mL an hour. He is diuresing adequately. No diuretics for now. His BUN is a 50 with a creatinine of 4 and there is interval improvement in his kidney function. Sodium is at 138. The WBC count is at 8.8 with a hemoglobin 8.3 and a platelet count of 232. He is receiving enteral feeding for nutritional support. He was started on Nepro at the rate of 10 mL an hour. He remains on IV Zosyn. He is on low-dose norepinephrine at 0.05 mcg/kg/m. His cardiac rhythm is sinus. He remains on long-term and coagulation with Eliquis. He has a wound VAC applied to his left lower extremity as the patient has a deep wound in the anterior asp ect of the left leg without any surrounding cellulitis. THE WOUND VAC IS IN ORDER OF 0 ML OVER THE PAST 24 HOURS. Objective - Vital Signs Vital signs: Vital Signs Temp 101.3 F H 08/16/22 08:00 Pulse 76 08/16/22 09:00 Resp 26 H 08/16/22 09:00 BP 115/97 08/14/22 12:45 Pulse Ox 98 08/16/22 09:00 FiO2 70 08/16/22 08:18 Intake & Output 08/15/22 08/16/22 08/16/22 18:59 06:59 18:59 Intake Total 9137.196 7968.763 293.671 Output Total 3050 4480 555 Balance -1308.329 -2556.237 -261.329 Weight 143.5 kg Intake: IV 1036 1036 156 0.9 900 900 150 Piperacillin-Tazobactam 3 100 100 .375 gm In Sodium Chloride 0.9% 100 ml @ 25 mls/hr IVPB Q12HR ROBERTA Rx #:[id number] arterial line 36 36 6 Intake, IV Titration 645.671 677.763 87.671 Amount Norepinephrine 8 mg In 258.00 210.640 Sodium Chloride 0.9% 250 ml @ 0.03 MCG/KG/MIN 7. 952 mls/hr IV .Q24H ROBERTA Rx#:[id number] propofoL 1,000 mg In 387.671 467.123 87.671 Empty Bag 1 bag @ 15 MCG/ KG/MIN 12.329 mls/hr IV . Q8H7M ROBERTA Rx#:[id number] Tube Feeding 30 120 20 Other 30 90 30 Output: Urine 3050 4480 555 Other: Voiding Method Indwelling Catheter Indwelling Catheter ABP, PAP, CO, CI - Last Documented Arterial Blood Pressure 160/61 - Exam Currently intubated on a mechanical ventilator, sedated on propofol, morbidly obese with a body mass index of 48.7 Head exam was generally normal. There was no scleral icterus or corneal arcus. Mucous membranes were moist. Neck was supple and without jugular venous distension, thyromegaly, or carotid bruits. Carotids were easily palpable bilaterally. There was no adenopathy. Lungs sounds are diminished bilaterally and there is some limited bibasilar crackles Cardiac exam revealed the PMI to be normally situated and sized. The rhythm was regular and no extrasystoles were noted during several minutes of auscultation. The first and second heart sounds were normal and physiologic splitting of the second heart sound was noted. There were no murmurs, rubs, clicks, or gallops. Abdominal exam revealed normal bowel sounds. The abdomen was soft, non-tender, and without masses, organomegaly, or appreciable enlargement of the abdominal aorta. Extremities are chronically edematous and there is evidence of chronic venous stasis. There is at least a 7 cm x 5 cm left lower extremity ones, no surrounding erythema, the wound surface is quite irregular, this is a deep 1 which is probably 1 cm deep and bone is being visualized. There is no active drainage. No purulence. No necrosis. He does have Charcot joints in his lower extremities. He does have chronic lower oximetry edema along with chronic venous stasis a pulse of diminished lower oximetry is bilaterally. Neurologically, the patient is sedated, and I was told that the patient was quite awake prior to him being intubated. Pupils are equal and reactive to light. He withdraws to painful stimulation. - Labs CBC & Chem 7: 08/16/22 04:35 08/16/22 04:35 Labs: Abnormal Lab Results - Last 24 Hours (Table) 08/15/22 08/15/22 08/15/22 Range/Units 11:52 17:50 23:56 RBC (4.30-5.90) m/uL Hgb (13.0-17.5) gm/dL Hct (39.0-53.0) % Lymphocytes # (1.0-4.8) k/uL ABG pCO2 (35-45) mmHg ABG HCO3 (21-25) mmol/L ABG Total CO2 (19-24) mmol/L ABG O2 Saturation (94-97) % BUN (9-20) mg/dL Creatinine (0.66-1.25) mg/dL Glucose (74-99) mg/dL POC Glucose (mg/dL) 148 H 143 H 188 H (70-110) mg/dL Calcium (8.4-10.2) mg/dL 08/16/22 08/16/22 08/16/22 Range/Units 04:35 04:35 04:42 RBC 2.67 L (4.30-5.90) m/uL Hgb 8.3 L (13.0-17.5) gm/dL Hct 24.9 L (39.0-53.0) % Lymphocytes # 0.5 L (1.0-4.8) k/uL ABG pCO2 46 H (35-45) mmHg ABG HCO3 27 H (21-25) mmol/L ABG Total CO2 28 H (19-24) mmol/L ABG O2 Saturation 98.7 H (94-97) % BUN 51 H (9-20) mg/dL Creatinine 4.03 H (0.66-1.25) mg/dL Glucose 177 H (74-99) mg/dL POC Glucose (mg/dL) (70-110) mg/dL Calcium 8.1 L (8.4-10.2) mg/dL 08/16/22 Range/Units 05:43 RBC (4.30-5.90) m/uL Hgb (13.0-17.5) gm/dL Hct (39.0-53.0) % Lymphocytes # (1.0-4.8) k/uL ABG pCO2 (35-45) mmHg ABG HCO3 (21-25) mmol/L ABG Total CO2 (19-24) mmol/L ABG O2 Saturation (94-97) % BUN (9-20) mg/dL Creatinine (0.66-1.25) mg/dL Glucose (74-99) mg/dL POC Glucose (mg/dL) 194 H (70-110) mg/dL Calcium (8.4-10.2) mg/dL Microbiology - Last 24 Hours (Table) 08/15/22 16:39 Urine Culture - Preliminary Urine,Catheterized 08/14/22 01:00 Gram Stain - Preliminary Sputum Sputum Culture - Preliminary Pseudomonas spec 08/13/22 13:40 Blood Culture - Preliminary Blood 08/13/22 14:00 Blood Culture - Preliminary Blood Assessment and Plan Plan: Acute on top of chronic kidney disease. The patient is an acute kidney injury with persistent hyperkalemia, not responsive to medical management and the patient underwent a session of hemodialysis yesterday. Urine output is improved since yesterday and currently is producing up to 200-500 mL an hour of urine output.. Consider also possibility of drug effect as the patient was taken a combination of diuretics and fara inhibitors on outpatient basis. The renal function continues to improve. Creatinine is down to 4. No dialysis is being done as long as the patient continues to reduce excellent urine output. He is being supported with low-dose norepinephrine for blood pressure control. He continues to have interstitial edema on his chest x-ray/fluid overload with a possibility of a superimposed pneumonia. Acute hypoxic respiratory failure, suspect fluid overload/interstitial edema due to renal failure. Suspect superimposed pneumonia in the sputum is positive for pseudomonas aeruginosa. Acute febrile illness, currently under investigation patient remains on IV Zosyn. Blood cultures are being sent. Chronic stage III kidney disease related to hypertensive/diabetic nephropathy Acute hypoxic/hypercapnic respiratory failure on top of chronic hypoxemic and hypercapnic respiratory failure, likely related to diastolic congestive heart failure exacerbation, morbid obesity, and sleep apnea syndrome. The decompensated infected with the fluid overload as the patient is interstitial edema/pulmonary edema on his chest x-rays. Currently intubated on mechanical ventilator. The chest x-ray still showing interstitial edema, possibility of a superimposed pneumonia cannot be completely excluded. Acute hyperkalemia, recovered and the potassium level is normalized Diastolic heart failure with a preserved LV function and ejection fraction of 55%. Pulmonary artery pressures was not established Diabetes mellitus type 2, insulin-dependent Diabetic left lower extremity ulcer, deep reaching the bone with possibility of osteomyelitis, this is a chronic nonhealing wound and the anterior aspect of the left lower extremity Hypotension, currently on low-dose norepinephrine as the patient is being dialyzed. Exact cause is not clear. Hypertension could be potentially septic in nature. Charcoal joints Chronic lower extremity edema and chronic venous stasis of the legs bilaterally Severe obstructive sleep apnea syndrome, on home BiPAP. Chronic hypoxemic respiratory failure. Morbid obesity. BMI 51.8 kg per metered square History of hyperlipidemia. History of diabetes with diabetic neuropathy. History of chronic pain syndrome. History of hypertension. History of gastroesophageal reflux disease. History of factor V deficiency. history of DVT. Morbid obesity with a body mass index of 48. Chronic use of diuretics on outpatient basis including Aldactone and Zaroxolyn and Lasix History of diverticulosis History of chronic back pain Anemia of chronic disease Plan Keep the patient sedated with propofol Not ready for weaning yet Continue vent support. Dropped FiO2 down to 50%. The pulse ox is tolerated, should be able to wean the PEEP down to 6 at the later stage. Continue monitoring the urine output and no plans for hemodialysis today He continues to have signs of fluid overload and interstitial edema and is not ready for weaning at this point in time. Ultrasound of the kidneys showed no evidence of hydronephrosis Sent 2 sets of blood cultures Monitor fever pattern Cover The patient empirically with IV Zosyn Continue pressors to maintain an support his blood pressure Initiate enteral feeding for nutritional support with Nepro only at 10 mL an hour Continue Nepro 4 enteral feeding and nutritional support Eliquis a dose of 2.5 mg twice a day. Most recent echocardiogram from recent admission was within normal limits and the patient has a preserved LV function Consult wound care services, the patient has a wound VAC in place , output from the VAC is 0 Condition is critical and we'll continue to follow make further recommendations based on his progress. Condition remains critical and the patient will be kept intubated for now. Not ready for weaning yet. Overall condition is more stable compared to yesterday. We'll continue to follow. There is a critical care evaluation that was done in > 30 min Time with Patient: Greater than 30
[2022-08-16 12:07] LABS: Glucose,Whole Blood 205 mg/dL (70-110)
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
[2022-08-16] MEDS: SODIUM CHLORIDE 0.9% 500 ML 500 ML IV SCH (13:26)
[2022-08-16 17:24] LABS: Glucose,Whole Blood 194 mg/dL (70-110)
[2022-08-16] MEDS: LATANOPROST 0.005% OPHTH DROPS 2.5 ML BTL BOTH EYES SCH (20:40)
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
[2022-08-17 00:18] LABS: Glucose,Whole Blood 207 mg/dL (70-110)
[2022-08-17] MEDS: INSULIN ASPART (NovoLOG) 100 UNIT/ML VIAL SQ SCH ×5 (00:44→23:33)
[2022-08-17 05:20] LABS: Basophils % (A) 0 %; Eosinophils # (A) 0.5 k/uL (0-0.7); Eosinophils % (A) 6 %; HCT 24.4 % (39.0-53.0); HGB 8.2 gm/dL (13.0-17.5); Lymphocytes # (A) 0.6 k/uL (1.0-4.8); Lymphocytes % (A) 8 %; MCH 31.4 pg (25.0-35.0); MCHC 33.7 g/dL (31.0-37.0); MCV 93.4 fL (80.0-100.0); Mean Platelet Volume 8.1; Monocytes # (A) 0.5 k/uL (0-1.0); Monocytes % (A) 7 %; Neutrophils # (A) 5.6 k/uL (1.3-7.7); Neutrophils % (A) 77 %; Platelet Count 237 k/uL (150-450); Poikilocytosis Slight; RBC 2.62 m/uL (4.30-5.90); RDW 14.8 % (11.5-15.5); WBC 7.3 k/uL (3.8-10.6)
[2022-08-17 05:32] LABS: Calcium 8.3 mg/dL (8.4-10.2); Magnesium 1.7 mg/dL (1.6-2.3); Potassium 3.8 mmol/L (3.5-5.1)
[2022-08-17 06:02] LABS: ABG Base Excess 7.1 mmol/L; ABG HCO3 31 mmol/L (21-25); ABG Oxygen Saturation 97.7 % (94-97); ABG PCO2 45 mmHg (35-45); ABG PH 7.45 (7.35-7.45); ABG PO2 84 mmHg (83-108); ABG TCO2 33 mmol/L (19-24); Allen Test Performed? Yes
[2022-08-17] MEDS: NOREPINEPHRINE 8 MG in SODIUM CHLORIDE 0.9% 250 ML IV SCH (07:15)
--- NOTE | 2022-08-17 07:30 | XR ---
EXAMINATION TYPE: XR chest 1V portable DATE OF EXAM: 08/17/2022 COMPARISON: 08/16/2022 HISTORY: Shortness of breath TECHNIQUE: Single frontal view of the chest is obtained. FINDINGS: ET and NG tube noted. There is a diffuse interstitial pattern with bilateral infiltrate an d small effusion. No sizable pneumothorax. Left-sided central line seen with tip overlying the right atrium. IMPRESSION: 1. Bilateral interstitial and alveolar infiltrates correlate for pneumonia including atypical pneumon ia. CHF not excluded.
[2022-08-17] MEDS: PIPERACILLIN-TAZOBACTAM 3.375 GM in SODIUM CHLORIDE 0.9% 100 ML IVPB SCH ×3 (09:01→23:34)
[2022-08-17] MEDS: DULoxetine HCL 30 MG CAPSULE.DR PO SCH (09:01)
[2022-08-17] MEDS: LACTULOSE 20 GM/30 ML CUP PO SCH ×2 (09:01→20:57)
[2022-08-17] MEDS: SIMETHICONE 80 MG CHEWABLE PO SCH ×4 (09:01→23:06)
[2022-08-17] MEDS: APIXABAN 2.5 MG TABLET PO SCH ×2 (09:01→20:56)
[2022-08-17] MEDS: ATORVASTATIN 80 MG TAB PO SCH (09:01)
[2022-08-17] MEDS: PANTOPRAZOLE 40 MG TABLET PO SCH (09:01)
[2022-08-17] MEDS: CHLORHEXIDINE GLUCONATE 15 ML CUP MUCOUS MEM SCH ×2 (09:01→20:56)
[2022-08-17] MEDS: PSYLLIUM HUSK 100% 6 GM PACKET PO SCH (09:01)
[2022-08-17] MEDS: TAMSULOSIN 0.4 MG CAP.ER.24H PO SCH (09:01)
[2022-08-17] MEDS: carBAMazepine 100 MG TAB.ER.12H PO SCH (09:02)
[2022-08-17] MEDS: NON FORMULARY DRUG (Lubiprostone [Amitiza] 24 MCG Capsule) PO SCH ×2 (09:03→20:59)
[2022-08-17] MEDS ORDERED: Magnesium Replacement Protocol 1 EACH MISC MISCELLANE PRN (09:38)
[2022-08-17] MEDS ORDERED: MAGNESIUM SULFATE-D5W PMX 1 GM in DEXTROSE/WATER 1 100ML.BAG IVPB ONE (10:00)
--- NOTE | 2022-08-17 10:42 | P.PN ---
Subjective Patient is seen for follow-up for hyperkalemia and acute kidney injury. Patient received one hemodialysis treatment for persistent hyperkalemia on 08/14/2022. Since then urine output has improved to over more than 200 ML per hour. Patient remains intubated and on the vent. Levo fed is being decreased Potassium 3.8 today Serum creatinine down to 2.9. Objective - Vital Signs Vital signs: Vital Signs Temp 98.9 F 08/17/22 08:00 Pulse 53 L 08/17/22 10:00 Resp 26 H 08/17/22 10:00 BP 115/97 08/14/22 12:45 Pulse Ox 95 08/17/22 10:00 FiO2 70 08/17/22 10:00 Intake & Output 08/16/22 08/17/22 08/17/22 18:59 06:59 18:59 Intake Total 1484.224 991.703 216.179 Output Total 4355 3125 925 Balance -2870.776 -2133.297 -708.821 Weight 139 kg Intake: IV 766 396 132 0.9 630 360 120 Piperacillin-Tazobactam 3 100 .375 gm In Sodium Chloride 0.9% 100 ml @ 25 mls/hr IVPB Q12HR ROBERTA Rx #:[id number] arterial line 36 36 12 Intake, IV Titration 498.224 385.703 44.179 Amount Norepinephrine 8 mg In 210.553 85.703 44.179 Sodium Chloride 0.9% 250 ml @ 0.03 MCG/KG/MIN 7. 952 mls/hr IV .Q24H ROBERTA Rx#:[id number] propofoL 1,000 mg In 287.671 300 Empty Bag 1 bag @ 15 MCG/ KG/MIN 12.329 mls/hr IV . Q8H7M ROBERTA Rx#:[id number] Tube Feeding 130 120 40 Other 90 90 Output: Urine 4355 3125 925 Other: Voiding Method Indwelling Catheter Indwelling Catheter ABP, PAP, CO, CI - Last Documented Arterial Blood Pressure 109/48 - Exam Patient is sedated and on the vent Examination of the heart S1 and S2 Examination lungs bilateral breath sounds are heard Abdomen is obese soft Examination of lower extremities shows chronic skin changes with significant edema bilaterally ART HANDLER exam could not be performed - Labs CBC & Chem 7: 08/17/22 04:48 08/17/22 04:48 Labs: Abnormal Lab Results - Last 24 Hours (Table) 08/16/22 08/16/22 08/17/22 Range/Units 12:05 17:23 00:16 RBC (4.30-5.90) m/uL Hgb (13.0-17.5) gm/dL Hct (39.0-53.0) % Lymphocytes # (1.0-4.8) k/uL ABG HCO3 (21-25) mmol/L ABG Total CO2 (19-24) mmol/L ABG O2 Saturation (94-97) % BUN (9-20) mg/dL Creatinine (0.66-1.25) mg/dL Glucose (74-99) mg/dL POC Glucose (mg/dL) 205 H 194 H 207 H (70-110) mg/dL Calcium (8.4-10.2) mg/dL 08/17/22 08/17/22 08/17/22 Range/Units 04:48 04:48 05:57 RBC 2.62 L (4.30-5.90) m/uL Hgb 8.2 L (13.0-17.5) gm/dL Hct 24.4 L (39.0-53.0) % Lymphocytes # 0.6 L (1.0-4.8) k/uL ABG HCO3 31 H (21-25) mmol/L ABG Total CO2 33 H (19-24) mmol/L ABG O2 Saturation 97.7 H (94-97) % BUN 40 H (9-20) mg/dL Creatinine 2.96 H (0.66-1.25) mg/dL Glucose 147 H (74-99) mg/dL POC Glucose (mg/dL) (70-110) mg/dL Calcium 8.3 L (8.4-10.2) mg/dL Microbiology - Last 24 Hours (Table) 08/13/22 13:40 Blood Culture - Preliminary Blood 08/13/22 14:00 Blood Culture - Preliminary Blood 08/15/22 16:39 Urine Culture - Final Urine,Catheterized 08/14/22 01:00 Gram Stain - Final Sputum Sputum Culture - Final Pseudomonas aeruginosa Assessment and Plan Assessment: 1. Acute kidney injury secondary to ATN secondary to shock, likely septic. Also component of contrast-induced acute kidney injury. Oliguric. Creatinine 7.27 on admission. Creatinine in May 2022 as low as 0.87. No hydronephrosis noted on imaging. Status post hemodialysis 08/14/2022 due to persistent hyperkalemia. Was oliguric initially but now nonoliguric. Creatinine 2.9 today. 2. Hyperkalemia secondary to acute kidney injury, spironolactone, lisinopril and potassium supplementation. Improved. 3. Lower extremity wounds on IV antibiotics. Also has wound VAC. 4. Diabetes mellitus. 5. Metabolic acidosis secondary to acute kidney injury, metformin. Improved. 6. Shock, likely septic. On Levophed. Plan: Continue off of IV fluids Continue to avoid nephrotoxic agents DC dialysis catheter in the next 1-2 days
--- NOTE | 2022-08-17 11:03 | P.PN ---
Subjective Progress Note Date: 08/17/22 Patient is a 52-year old male with a past medical history significant for diabetes mellitus hypertension hyperlipidemia DVT, with a recent admission to [facility] from 07/31 to 08/07/2022 apparently the patient did have a wound to the left lower extremity to the anterior jacob and a wound on the plantar aspect of his left foot that was evaluated and treated by Dr. Coleman, with a wound VAC with a readmission to the hospital with acute respiratory failure requiring intubation did have a fever and concerning for pneumonia sputum is growing Pseudomonas and patient also have acute renal failure requiring dialysis. On today's evaluation had that is 08/17/2022, the patient is afebrile this morning the patient is requiring low-dose pressor support to maintain his blood pressure per the nursing staff, is requiring 70% FiO2, no significant purulent secretion through the ET or diarrhea reported Objective - Vital Signs Vital signs: Vital Signs Temp 98.9 F 08/17/22 08:00 Pulse 53 L 08/17/22 10:00 Resp 26 H 08/17/22 10:00 BP 115/97 08/14/22 12:45 Pulse Ox 95 08/17/22 10:00 FiO2 70 08/17/22 10:00 Intake & Output 08/16/22 08/17/22 08/17/22 18:59 06:59 18:59 Intake Total 1484.224 991.703 316.179 Output Total 4355 3125 925 Balance -2870.776 -2133.297 -608.821 Weight 139 kg Intake: IV 766 396 132 0.9 630 360 120 Piperacillin-Tazobactam 3 100 .375 gm In Sodium Chloride 0.9% 100 ml @ 25 mls/hr IVPB Q12HR ROBERTA Rx #:[id number] arterial line 36 36 12 Intake, IV Titration 498.224 385.703 144.179 Amount Norepinephrine 8 mg In 210.553 85.703 44.179 Sodium Chloride 0.9% 250 ml @ 0.03 MCG/KG/MIN 7. 952 mls/hr IV .Q24H ROBERTA Rx#:[id number] propofoL 1,000 mg In 287.671 300 100 Empty Bag 1 bag @ 15 MCG/ KG/MIN 12.329 mls/hr IV . Q8H7M ROBERTA Rx#:[id number] Tube Feeding 130 120 40 Other 90 90 Output: Urine 1747 0191 786 Other: Voiding Method Indwelling Catheter Indwelling Catheter ABP, PAP, CO, CI - Last Documented Arterial Blood Pressure 109/48 - Exam GENERAL DESCRIPTION: A middle-age male intubated on the vent RESPIRATORY SYSTEM: Unlabored breathing , decreased breath sounds at bases HEART: S1 S2 regular rate and rhythm , ABDOMEN: Soft , no tenderness EXTREMITIES: Diffuse swelling to bilateral lower extremity with a wound to the left jacob covered with a wound VAC left foot is currently dressed no drainage of the dressing - Labs CBC & Chem 7: 08/17/22 04:48 08/17/22 04:48 Labs: Abnormal Lab Results - Last 24 Hours (Table) 08/16/22 08/16/22 08/17/22 Range/Units 12:05 17:23 00:16 RBC (4.30-5.90) m/uL Hgb (13.0-17.5) gm/dL Hct (39.0-53.0) % Lymphocytes # (1.0-4.8) k/uL ABG HCO3 (21-25) mmol/L ABG Total CO2 (19-24) mmol/L ABG O2 Saturation (94-97) % BUN (9-20) mg/dL Creatinine (0.66-1.25) mg/dL Glucose (74-99) mg/dL POC Glucose (mg/dL) 205 H 194 H 207 H (70-110) mg/dL Calcium (8.4-10.2) mg/dL 08/17/22 08/17/22 08/17/22 Range/Units 04:48 04:48 05:57 RBC 2.62 L (4.30-5.90) m/uL Hgb 8.2 L (13.0-17.5) gm/dL Hct 24.4 L (39.0-53.0) % Lymphocytes # 0.6 L (1.0-4.8) k/uL ABG HCO3 31 H (21-25) mmol/L ABG Total CO2 33 H (19-24) mmol/L ABG O2 Saturation 97.7 H (94-97) % BUN 40 H (9-20) mg/dL Creatinine 2.96 H (0.66-1.25) mg/dL Glucose 147 H (74-99) mg/dL POC Glucose (mg/dL) (70-110) mg/dL Calcium 8.3 L (8.4-10.2) mg/dL Microbiology - Last 24 Hours (Table) 08/13/22 13:40 Blood Culture - Preliminary Blood 08/13/22 14:00 Blood Culture - Preliminary Blood 08/15/22 16:39 Urine Culture - Final Urine,Catheterized 08/14/22 01:00 Gram Stain - Final Sputum Sputum Culture - Final Pseudomonas aeruginosa Assessment and Plan (1) Pseudomonas pneumonia Current Visit: Yes Status: Acute Code(s): J15.1 - PNEUMONIA DUE TO PSEUDOMONAS SNOMED Code(s): 83105579 (2) Fever Current Visit: No Status: Acute Code(s): R50.9 - FEVER, UNSPECIFIED SNOMED Code(s): 673156630 Plan: 1patient was in the hospital with sepsis in this patient with a fever elevated white count source is likely multifactorial with concern for possible component of pneumonia sputum showing Pseudomonas and the patient also have multiple wound especially left lower extremity and concern for possible secondary cellulitis 2-patient with renal failure requiring dialysis and high risk for nephrotoxicity 3-blood cultures has been repeated to document clearance of his bacteremia 4-patient to continue with the Zosyn to cover the Pseudomonas is sensitive 5-local wound care per his box office agent/wound care physician, we will reevaluate the wound at the time of wound VAC change discussed with the RN Time with Patient: Less than 30
--- NOTE | 2022-08-17 11:45 | CDI ---
Documentation Clarification Form Date: 08/17/2022 From: Jessica Flynn Phone: [phone] Admit Date: 08/13/2022 4:52:00 PM Patient Name: Jose Lynne Visit Number: [id number] ATTENTION: The Clinical Documentation Specialists (CDI) and [facility] Coding Staff appreciate your assistance in clarifying documentation. Please respond to the clarification below the line at the bottom and electronically sign. The CDI & [facility] Coding staff will review the response and follow-up if needed. Please note: Queries are made part of the Legal Health Record. If you have any questions, please contact the author of this message via ITS. Dr. Ayo Ferrera debridement is documented in podiatry PN on 08/14 Additional clarification regarding the procedure is requested. History/Risk Factors: 52yo presented with diabetic ulcerations full-thickness LLE partial thickness RLE w/ renal failure and respiratory failure Clinical Indicators: Podiatry PN 08/14 We debrided the wounds surgically with a steril #5 curette to remove devitalized necrotic tissue marginally and centrally of the wounds bilaterally. Once debrided the remaining tissue showed good granular tissue throughout and the wounds were copiously lavaged Please clarify the type of procedure performed: [ x] Excisional debridement (the removal of necrotic, devitalized tissue or slough by means of cutting away of tissue) [ ] Non-excisional debridement (the removal of necrotic, devitalized tissue or slough by means of flushing, brushing, or washing. (Irrigation) [ x] Other; please specify ____the debridement was excisional using a scalpel to remove devitalized necrotic tissue marginally and centrally from the wound of bilateral lower extremities the wound on the anterior aspect of the left lower leg measured 5 cm x 5 cm in the depth was 3-1/2 cm the wound on the plantar aspect of the left foot measured 2.5 cm x 2.5 cm with a depth of 5 mm in the wound on the posterior aspect of the right leg measured 15 cm x 10 cm x 1 mm the wounds were debrided down to bleeding tissue. Left leg was down to muscle and bone the left foot was down to superficial fascia in the posterior aspect the right leg was limited to breakdown of the skin. [ ] Unable to determine Five elements required for accurate and compliant documentation of a debridement: Technique used (e.g., excisional, excised, cutting, brushing, jet lavage etc.) Instrument(s) used (e.g., scalpel, curette, etc.) Nature of the tissue removed (e.g., necrotic, devitalized tissues, non-viable tissue, etc.) Appearance and size of the wound (e.g., down to fresh bleeding tissue, 7cm x 10cm, etc.) Depth of the debridement* (e.g., skin, subcutaneous tissue, fascia, muscle, bone, etc.) MTDD
--- NOTE | 2022-08-17 12:52 | P.PN ---
Subjective Progress Note Date: 08/17/22 Principal diagnosis: Acute hypoxic respiratory failure secondary to fluid overload/interstitial edema secondary to acute on chronic renal failure and superimposed pseudomonas aerug inosa pneumonia. This is a morbidly obese 53-year-old male patient who [facility] The patient was the hospital and was discharged to the [facility] on 08/07/2022. He has multiple medical problems and comorbidities. He is morbidly obese with a body mass index of 49. He is diabetic and his blood sugars have been poorly controlled and he has a diabetic ones in his left lower extremity jacob and this is a deep wound reaching his bone. This has been evaluated by Dr. Coleman and the patient was given wound care treatment. He does have charcoal joints related to his diabetes mellitus. He does have a component of chronic kidney disease, stage III related to hypertensive nephrosclerosis. 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 Note that his previous creatinine has been in the range of 1.48 prior to him being discharged. Yesterday, the patient presented to the emergency department because of difficulties with ones. He initially denies having any other complaints. No reported fever or chills. The patient apparently told the emergency physician that he was unsure exactly why he was sent into the emergency. I'm going to check the [facility] records accordingly. Meanwhile, while in the emergency, the patient was found to be in acute kidney injury. He had significant abnormalities in his blood work and the patient had a initial the 119, creatinine of 7.2, sodium of 1:30, potassium of 7.3, bicarb of 20, lactic acid level of 3.2, troponin of 0.02, and his white cell count was at 9.2 with a hemoglobin 10.7 and a platelet count of 247. This was consistent with an acute kidney injury. At that point, nephrology was consulted. Arrangements were made for this patient to undergo dialysis as the patient was offered treatment for his hyperkalemia and he did not respond. In fact his repeat potassium was at 7.6. At that time, he was decided to dialyze this patient. Dialysis catheter was inserted in the right femoral vein. The patient while on dialysis was noted to be progressively more apneic. The blood gas was done and he was found to be in acute on top of chronic respiratory acidosis in addition to a component of metabolic acidosis. PH was at 7.16 with a pCO2 of 60 and pO2 of 84. It was decided to proceed with intubation mechanical ventilation to maintain his breathing. As such, the patient was intubated and he was sent to the intensive care unit. This morning, the patient remains intubated. He is on propofol running at 40 mcg/kg/m. He is calm and comfortable. He is on mechanical ventilator assist control mode at the rate of 20, tidal volume 600, FiO2 of 100% with a PEEP of 5. His peak airway pressure is 35. Follow-up blood gases showed a pH of 7.22 with a pCO2 of 51 and pO2 of 66. I reviewed the series of chest x-rays including the one that was done today. There is evidence of interstitial edema along with cardiomegaly. The orotracheal tube is in good location for now. The follow-up morning blood gases showed a pH of 7.22 with a pCO2 of 51 and pO2 of 66 and this was on FiO2 of 100%. At the same time, the patient became hypotensive. He is currently on norepinephrine running at 0.06 mcg/kg/m. IV fluids currently at normal saline at the rate of 75 mL an hour. He does not produce any urine output for the time being. He is afebrile for now. The findings on the case. The patient is receiving a full session of hemodialysis today. In fact, he is currently undergoing hemodialysis. Blood sugars from this morning was at 125, On today's evaluation of 08/15/2022, the patient is intubated on mechanical vent ilator. He remains sedated on propofol running at 50 mcg/kg/m. His calm and comfortable and very much interested mechanical ventilator. He remains on assist-control mode at a rate of 26, tidal volume of 450, FiO2 of 70% with a PEEP of 8. Chest x-ray still showing interstitial edema consistent with CHF and volume overload. The tube is in a good location. The patient was given a triple-lumen catheter in his left IJ yesterday. Blood gas shows a pH of 7.36 with a pCO2 of 45 and pO2 of 76 and this was on FiO2 of 70%. No significant orotracheal secretions. The patient has mild leukocytosis with a white cell count of 12.4. He is on IV Zosyn as an empiric antibiotic coverage for now. Meanwhile, he underwent hemodialysis yesterday. His potassium level has dropped down to 4.8. On today's blood work, he has a BUN of 56 with a creatinine of 4.5. He has a Castillo catheter in place and the urine output is in order of 200 mL an hour as such his urine output has picked up and improves. The patient is being seen by nephrology. I'm not sure if we're proceeding with another session of hemodialysis today as the patient's urine output has improved. Further discussion with the with nephrology. Meanwhile, hemodynamically, he remains on low-dose pressors and norepinephrine is running at 0.09 mcg/kg/m. He remains on IV fluids at KVO. A wound VAC was applied to his left lower extremity. Sputum cultures and obtain a blood cultures were obtained and the results of those are still pending. He has not started enteral feeding yet. He is on NovoLog sliding scale coverage. He is also on long-term and coagulation with Eliquis at a dose of 2.5 mg twice a day. 08/16/2022, the patient remains intubated on a mechanical ventilator. He remains on propofol running at 50 mcg/kg/m his adequately sedated. He started spiking temperature as of this morning and a T-max was 101.3. As such, further fever workup is being done. Meanwhile, there is a concern that the patient may have a pneumonia on top of his CHF and fluid overload. Sputum is positive for Pseudomonas species and the patient is currently on IV Zosyn. The chest x-ray still showing interstitial infiltrates bilaterally, no consolidation. Blood gas from today shows a pH of 7.38 with episodes of 46 and pO2 of 97. As such, his oxygenation is improved compared to yesterday. He remains on the same ventilator settings with a assist-control mode at the rate of 26, tidal volume of 450, FiO2 of 70% and a PEEP of 8. Peak airway pressure is 40. He is not going to get dialyzed today as the patient is producing copious amount of urine output. I was told that his urine output at times is at high as 500 mL an hour. He is diuresing adequately. No diuretics for now. His BUN is a 50 with a creatinine of 4 and there is interval improvement in his kidney function. Sodium is at 138. The WBC count is at 8.8 with a hemoglobin 8.3 and a platelet count of 232. He is receiving enteral feeding for nutritional support. He was started on Nepro at the rate of 10 mL an hour. He remains on IV Zosyn. He is on low-dose norepinephrine at 0.05 mcg/kg/m. His cardiac rhythm is sinus. He remains on long-term and coagulation with Eliquis. He has a wound VAC applied to his left lower extremity as the patient has a deep wound in the anterior aspect of the left leg without any surrounding cellulitis. THE WOUND VAC IS IN ORDER OF 0 ML OVER THE PAST 24 HOURS. Reevaluated today on 08/13/2022, patient remains in the ICU, intubated and mechanically ventilated. Patient is on assist control rate of 26 tidal volume 450 FiO2 50% and PEEP of 8. Patient has been on mechanical ventilation since 08/13/2022, ABG showed a pO2 of 84 pCO2 45 pH of 7.45. Patient is still on relatively low dose of norepinephrine at 0.04 mcg/kg/m propofol at 50 by grams per kilo per minute IV fluid is at KVO. Urine output seems to be improving on its own without any intervention. Patient did have dialysis at one point. Continues to have a hemodialysis catheter in the right groin. Continues to have wound VAC applied to left lower extremity. And being followed closely by infectious disease and by podiatry for his lower extremity cellulitis. Chest x- ray continues to show bilateral interstitial edema/infiltrates. BNP level remains elevated at 6710. WBC count is 7.3 hemoglobin 8.2 basic metabolic profile is relatively normal renal functioning is improving creatinine is down to 2.96 today compared to 4.03 yesterday patient remains on Zosyn, sputum cultures have been positive for pseudomonas aeruginosa Objective - Vital Signs Vital signs: Vital Signs Temp 98.9 F 08/17/22 08:00 Pulse 54 L 08/17/22 11:00 Resp 26 H 08/17/22 11:00 BP 115/97 08/14/22 12:45 Pulse Ox 96 08/17/22 11:00 FiO2 50 08/17/22 11:39 Intake & Output 08/16/22 08/17/22 08/17/22 18:59 06:59 18:59 Intake Total 1484.224 991.703 409.190 Output Total 4355 3125 1275 Balance -2870.776 -2133.297 -865.810 Weight 139 kg Intake: IV 766 396 165 0.9 630 360 150 Piperacillin-Tazobactam 3 100 .375 gm In Sodium Chloride 0.9% 100 ml @ 25 mls/hr IVPB Q12HR [facility] Rx #:[id number] arterial line 36 36 15 Intake, IV Titration 498.224 385.703 194.190 Amount Norepinephrine 8 mg In 210.553 85.703 94.190 Sodium Chloride 0.9% 250 ml @ 0.03 MCG/KG/MIN 7. 952 mls/hr IV .Q24H [facility] Rx#:[id number] propofoL 1,000 mg In 287.671 300 100 Empty Bag 1 bag @ 15 MCG/ KG/MIN 12.329 mls/hr IV . Q8H7M [facility]A Rx#:[id number] Tube Feeding 130 120 50 Other 90 90 Output: Urine 4355 3125 1275 Other: Voiding Method Indwelling Catheter Indwelling Catheter Indwelling Catheter ABP, PAP, CO, CI - Last Documented Arterial Blood Pressure 137/57 - Exam Physical Exam: Revealed a 52-year-old white male intubated, mechanically ventilated, obese, BMI of 48.7. Head: Atraumatic, normocephalic. Endotracheal tube and orogastric tube are intact. HEENT: Short obese neck noted. [Neck is supple.] [No neck masses.] [No thyromegaly.] [No JVD.] Chest: [Crackles and rhonchi noted bilaterally. Symmetrical chest expansion. Cardiac Exam: [Normal S1 and S2, no S3 gallop, no murmur.] Abdomen: [Morbidly obese, Soft, nontender, no megaly, no rebound, no guarding, normal bowel sounds.] Extremities: [chronically edematous and there is evidence of chronic venous stasis. There is at least a 7 cm x 5 cm left lower extremity ones, no surrounding erythema, the wound surface is quite irregular, this is a deep 1 which is probably 1 cm deep and bone is being visualized. There is no active drainage. No purulence. No necrosis. He does have Charcot joints in his lower extremities. He does have chronic lower oximetry edema along with chronic venous stasis a pulse of diminished lower oximetry is bilaterally. Neurological Exam: Could not assess, patient is sedated. However according to the nurses he was appropriate on a lower dose of sedation earlier Psychiatric: Could not assess. Patient is sedated. Skin: As noted above under extremities - Labs CBC & Chem 7: 08/17/22 04:48 08/17/22 04:48 Labs: Abnormal Lab Results - Last 24 Hours (Table) 08/16/22 08/17/22 08/17/22 Range/Units 17:23 00:16 04:48 RBC (4.30-5.90) m/uL Hgb (13.0-17.5) gm/dL Hct (39.0-53.0) % Lymphocytes # (1.0-4.8) k/uL ABG HCO3 (21-25) mmol/L ABG Total CO2 (19-24) mmol/L ABG O2 Saturation (94-97) % BUN 40 H (9-20) mg/dL Creatinine 2.96 H (0.66-1.25) mg/dL Glucose 147 H (74-99) mg/dL POC Glucose (mg/dL) 194 H 207 H (70-110) mg/dL Calcium 8.3 L (8.4-10.2) mg/dL 08/17/22 08/17/22 Range/Units 04:48 05:57 RBC 2.62 L (4.30-5.90) m/uL Hgb 8.2 L (13.0-17.5) gm/dL Hct 24.4 L (39.0-53.0) % Lymphocytes # 0.6 L (1.0-4.8) k/uL ABG HCO3 31 H (21-25) mmol/L ABG Total CO2 33 H (19-24) mmol/L ABG O2 Saturation 97.7 H (94-97) % BUN (9-20) mg/dL Creatinine (0.66-1.25) mg/dL Glucose (74-99) mg/dL POC Glucose (mg/dL) (70-110) mg/dL Calcium (8.4-10.2) mg/dL Microbiology - Last 24 Hours (Table) 08/13/22 13:40 Blood Culture - Preliminary Blood 08/13/22 14:00 Blood Culture - Preliminary Blood 08/15/22 16:39 Urine Culture - Final Urine,Catheterized 08/14/22 01:00 Gram Stain - Final Sputum Sputum Culture - Final Pseudomonas aeruginosa Assessment and Plan Assessment: Impression: Acute hypoxic and hypercapnic respiratory failure, multifactorial. Acute pseudomonal pneumonia Acute on chronic diastolic congestive heart failure Acute fluid overload secondary to acute renal failure Acute on chronic kidney disease with diabetic nephropathy and hypertensive nephropathy. Chronic diabetic lower extremities ulcers with possible osteomyelitis/left lower extremity. Hypotension secondary to sepsis/septic shock. Severe obstructive sleep apnea syndrome Morbid obesity with BMI of 51.8 Chronic pain syndrome, patient has a chronic pain pump. In the left lower quadrant. History of DVT History of factor V deficiency/hypercoagulable state Hypertension with hypertensive nephropathy/nephrosclerosis. Chronic back pain Anemia of chronic disease History of diverticulosis Recommendation: Continue ventilatory support No changes in his present vent settings and maintain PEEP at 8 Patient is not ready for any weaning. Continue antibiotics/Zosyn for pseudomonal infection, positive sputum for Pseudomonas Continue nutritional support/enteral feeding patient is on Nepro Continue hemodynamic support as needed/norepinephrine Continue wound VAC and wound care services to follow Continue GI and DVT prophylaxis Patient will remain in the ICU no plans to wean him yet, chest x-ray remains quite abnormal and his gases are marginal. We will continue to follow. Critical care time is over 30 minutes Time with Patient: Greater than 30
[2022-08-17 14:23] LABS: Glucose,Whole Blood 190 mg/dL (70-110)
[2022-08-17] MEDS: SODIUM CHLORIDE 0.9% 500 ML 500 ML IV SCH (15:15)
[2022-08-17 15:50] LABS: % Iron Saturation 12.77 (15.00-50.00)
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
[2022-08-17 18:00] LABS: Glucose,Whole Blood 199 mg/dL (70-110)
[2022-08-17 18:20] LABS: Glucose,Whole Blood 216 mg/dL (70-110)
[2022-08-17] MEDS: LATANOPROST 0.005% OPHTH DROPS 2.5 ML BTL BOTH EYES SCH (20:56)
[2022-08-17] MEDS: FAMOTIDINE 20 MG TAB PO SCH (20:57)
[2022-08-17 23:31] LABS: Glucose,Whole Blood 177 mg/dL (70-110)
[2022-08-18] MEDS: COLLAGENASE 250 UNIT/GM OINTMENT 30 GM TUBE TOPICAL SCH ×2 (00:28→14:30)
[2022-08-18 04:57] LABS: Basophils % (A) 0 %; Eosinophils # (A) 0.5 k/uL (0-0.7); Eosinophils % (A) 9 %; HCT 24.1 % (39.0-53.0); HGB 7.9 gm/dL (13.0-17.5); Lymphocytes # (A) 0.8 k/uL (1.0-4.8); Lymphocytes % (A) 13 %; MCH 30.8 pg (25.0-35.0); MCHC 32.7 g/dL (31.0-37.0); Mean Platelet Volume 8.6; Monocytes # (A) 0.4 k/uL (0-1.0); Monocytes % (A) 7 %; Neutrophils # (A) 4.1 k/uL (1.3-7.7); Neutrophils % (A) 67 %; Platelet Count 228 k/uL (150-450); Poikilocytosis Slight; RBC 2.57 m/uL (4.30-5.90); RDW 14.7 % (11.5-15.5)
[2022-08-18 05:17] LABS: Calcium 7.8 mg/dL (8.4-10.2); Magnesium 1.7 mg/dL (1.6-2.3); Potassium 3.5 mmol/L (3.5-5.1)
[2022-08-18] MEDS ORDERED: POTASSIUM BICARBONATE/CIT AC 20 MEQ TABLET.EFF PO ONE (05:54)
[2022-08-18 05:57] LABS: Glucose,Whole Blood 166 mg/dL (70-110)
[2022-08-18 06:01] LABS: ABG Base Excess 7.2 mmol/L; ABG HCO3 31 mmol/L (21-25); ABG Oxygen Saturation 97.4 % (94-97); ABG PCO2 45 mmHg (35-45); ABG PH 7.45 (7.35-7.45); ABG PO2 84 mmHg (83-108); ABG TCO2 33 mmol/L (19-24)
[2022-08-18] MEDS: INSULIN ASPART (NovoLOG) 100 UNIT/ML VIAL SQ SCH ×4 (06:09→23:59)
[2022-08-18] MEDS: LACTULOSE 20 GM/30 ML CUP PO SCH ×2 (08:04→21:05)
[2022-08-18] MEDS: TAMSULOSIN 0.4 MG CAP.ER.24H PO SCH (08:04)
[2022-08-18] MEDS: PSYLLIUM HUSK 100% 6 GM PACKET PO SCH (08:04)
[2022-08-18] MEDS: ATORVASTATIN 80 MG TAB PO SCH (08:04)
[2022-08-18] MEDS: PIPERACILLIN-TAZOBACTAM 3.375 GM in SODIUM CHLORIDE 0.9% 100 ML IVPB SCH ×3 (08:04→23:59)
[2022-08-18] MEDS: APIXABAN 2.5 MG TABLET PO SCH ×2 (08:04→21:05)
[2022-08-18] MEDS: CHLORHEXIDINE GLUCONATE 15 ML CUP MUCOUS MEM SCH ×2 (08:04→21:05)
[2022-08-18] MEDS: carBAMazepine 100 MG TAB.ER.12H PO SCH (08:05)
[2022-08-18] MEDS: SIMETHICONE 80 MG CHEWABLE PO SCH ×4 (08:05→21:06)
[2022-08-18] MEDS: DULoxetine HCL 30 MG CAPSULE.DR PO SCH (08:05)
[2022-08-18] MEDS: NON FORMULARY DRUG (Lubiprostone [Amitiza] 24 MCG Capsule) PO SCH ×2 (08:06→20:39)
--- NOTE | 2022-08-18 08:24 | XR ---
EXAMINATION TYPE: XR chest 1V portable DATE OF EXAM: 08/18/2022 COMPARISON: 08/17/2022 HISTORY: Tube placement TECHNIQUE: Single frontal view of the chest is obtained. FINDINGS: ET and NG tube noted. There is a diffuse interstitial pattern with bilateral infiltrate an d small effusion. No sizable pneumothorax. Left-sided central line seen with tip overlying the right atrium. IMPRESSION: Bilateral interstitial and alveolar infiltrates stable. Correlate for pneumonia includin g atypical pneumonia. CHF not excluded.
[2022-08-18] MEDS ORDERED: MAGNESIUM SULFATE-D5W PMX 1 GM in DEXTROSE/WATER 1 100ML.BAG IVPB ONE (09:08)
[2022-08-18] MEDS: NOREPINEPHRINE 4 MG in SODIUM CHLORIDE 0.9% 250 ML IV SCH (10:00)
--- NOTE | 2022-08-18 11:32 | P.PN ---
Subjective Progress Note Date: 08/18/22 Principal diagnosis: Acute hypoxic respiratory failure secondary to fluid overload/interstitial edema secondary to acute on chronic renal failure and superimposed pseudomonas aerug inosa pneumonia. This is a morbidly obese 53-year-old male patient who arrived to us from the longterm. The patient was the hospital and was discharged to the longterm on 08/07/2022. He has multiple medical problems and comorbidities. He is morbidly obese with a body mass index of 49. He is diabetic and his blood sugars have been poorly controlled and he has a diabetic ones in his left lower extremity jacob and this is a deep wound reaching his bone. This has been evaluated by Dr. Coleman and the patient was given wound care treatment. He does have charcoal joints related to his diabetes mellitus. He does have a component of chronic kidney disease, stage III related to hypertensive nephrosclerosis. 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 Note that his previous creatinine has been in the range of 1.48 prior to him being discharged. Yesterday, the patient presented to the emergency department because of difficulties with ones. He initially denies having any other complaints. No reported fever or chills. The patient apparently told the emergency physician that he was unsure exactly why he was sent into the emergency. I'm going to check the longterm records accordingly. Meanwhile, while in the emergency, the patient was found to be in acute kidney injury. He had significant abnormalities in his blood work and the patient had a initial the 119, creatinine of 7.2, sodium of 1:30, potassium of 7.3, bicarb of 20, lactic acid level of 3.2, troponin of 0.02, and his white cell count was at 9.2 with a hemoglobin 10.7 and a platelet count of 247. This was consistent with an acute kidney injury. At that point, nephrology was consulted. Arrangements were made for this patient to undergo dialysis as the patient was offered treatment for his hyperkalemia and he did not respond. In fact his repeat potassium was at 7.6. At that time, he was decided to dialyze this patient. Dialysis catheter was inserted in the right femoral vein. The patient while on dialysis was noted to be progressively more apneic. The blood gas was done and he was found to be in acute on top of chronic respiratory acidosis in addition to a component of metabolic acidosis. PH was at 7.16 with a pCO2 of 60 and pO2 of 84. It was decided to proceed with intubation mechanical ventilation to maintain his breathing. As such, the patient was intubated and he was sent to the intensive care unit. This morning, the patient remains intubated. He is on propofol running at 40 mcg/kg/m. He is calm and comfortable. He is on mechanical ventilator assist control mode at the rate of 20, tidal volume 600, FiO2 of 100% with a PEEP of 5. His peak airway pressure is 35. Follow-up blood gases showed a pH of 7.22 with a pCO2 of 51 and pO2 of 66. I reviewed the series of chest x-rays including the one that was done today. There is evidence of interstitial edema along with cardiomegaly. The orotracheal tube is in good location for now. The follow-up morning blood gases showed a pH of 7.22 with a pCO2 of 51 and pO2 of 66 and this was on FiO2 of 100%. At the same time, the patient became hypotensive. He is currently on norepinephrine running at 0.06 mcg/kg/m. IV fluids currently at normal saline at the rate of 75 mL an hour. He does not produce any urine output for the time being. He is afebrile for now. The findings on the case. The patient is receiving a full session of hemodialysis today. In fact, he is currently undergoing hemodialysis. Blood sugars from this morning was at 125, On today's evaluation of 08/15/2022, the patient is intubated on mechanical vent ilator. He remains sedated on propofol running at 50 mcg/kg/m. His calm and comfortable and very much interested mechanical ventilator. He remains on assist-control mode at a rate of 26, tidal volume of 450, FiO2 of 70% with a PEEP of 8. Chest x-ray still showing interstitial edema consistent with CHF and volume overload. The tube is in a good location. The patient was given a triple-lumen catheter in his left IJ yesterday. Blood gas shows a pH of 7.36 with a pCO2 of 45 and pO2 of 76 and this was on FiO2 of 70%. No significant orotracheal secretions. The patient has mild leukocytosis with a white cell count of 12.4. He is on IV Zosyn as an empiric antibiotic coverage for now. Meanwhile, he underwent hemodialysis yesterday. His potassium level has dropped down to 4.8. On today's blood work, he has a BUN of 56 with a creatinine of 4.5. He has a Castillo catheter in place and the urine output is in order of 200 mL an hour as such his urine output has picked up and improves. The patient is being seen by nephrology. I'm not sure if we're proceeding with another session of hemodialysis today as the patient's urine output has improved. Further discussion with the with nephrology. Meanwhile, hemodynamically, he remains on low-dose pressors and norepinephrine is running at 0.09 mcg/kg/m. He remains on IV fluids at KVO. A wound VAC was applied to his left lower extremity. Sputum cultures and obtain a blood cultures were obtained and the results of those are still pending. He has not started enteral feeding yet. He is on NovoLog sliding scale coverage. He is also on long-term and coagulation with Eliquis at a dose of 2.5 mg twice a day. 08/16/2022, the patient remains intubated on a mechanical ventilator. He remains on propofol running at 50 mcg/kg/m his adequately sedated. He started spiking temperature as of this morning and a T-max was 101.3. As such, further fever workup is being done. Meanwhile, there is a concern that the patient may have a pneumonia on top of his CHF and fluid overload. Sputum is positive for Pseudomonas species and the patient is currently on IV Zosyn. The chest x-ray still showing interstitial infiltrates bilaterally, no consolidation. Blood gas from today shows a pH of 7.38 with episodes of 46 and pO2 of 97. As such, his oxygenation is improved compared to yesterday. He remains on the same ventilator settings with a assist-control mode at the rate of 26, tidal volume of 450, FiO2 of 70% and a PEEP of 8. Peak airway pressure is 40. He is not going to get dialyzed today as the patient is producing copious amount of urine output. I was told that his urine output at times is at high as 500 mL an hour. He is diuresing adequately. No diuretics for now. His BUN is a 50 with a creatinine of 4 and there is interval improvement in his kidney function. Sodium is at 138. The WBC count is at 8.8 with a hemoglobin 8.3 and a platelet count of 232. He is receiving enteral feeding for nutritional support. He was started on Nepro at the rate of 10 mL an hour. He remains on IV Zosyn. He is on low-dose norepinephrine at 0.05 mcg/kg/m. His cardiac rhythm is sinus. He remains on long-term and coagulation with Eliquis. He has a wound VAC applied to his left lower extremity as the patient has a deep wound in the anterior aspect of the left leg without any surrounding cellulitis. THE WOUND VAC IS IN ORDER OF 0 ML OVER THE PAST 24 HOURS. Reevaluated today on 08/17/2022, patient remains in the ICU, intubated and mechanically ventilated. Patient is on assist control rate of 26 tidal volume 450 FiO2 50% and PEEP of 8. Patient has been on mechanical ventilation since 08/13/2022, ABG showed a pO2 of 84 pCO2 45 pH of 7.45. Patient is still on relatively low dose of norepinephrine at 0.04 mcg/kg/m propofol at 50 by grams per kilo per minute IV fluid is at KVO. Urine output seems to be improving on its own without any intervention. Patient did have dialysis at one point. Continues to have a hemodialysis catheter in the right groin. Continues to have wound VAC applied to left lower extremity. And being followed closely by infectious disease and by podiatry for his lower extremity cellulitis. Chest x- ray continues to show bilateral interstitial edema/infiltrates. BNP level remains elevated at 6710. WBC count is 7.3 hemoglobin 8.2 basic metabolic profile is relatively normal renal functioning is improving creatinine is down to 2.96 today compared to 4.03 yesterday patient remains on Zosyn, sputum cultures have been positive for pseudomonas aeruginosa Reevaluated today on 08/18/2022, patient remains in the ICU, intubated and mechanically ventilated. He is on assist control rate of 26 tidal volume 450 FiO2 50% and PEEP of 8. ABG showed a pO2 of 84 pCO2 45 pH of 7.45. Hence his FiO2 was cut down to 45% and The PEEP at 8. Patient is requiring low-dose norepinephrine at 0.03 mcg/kg/m his IV fluids at KVO and he is diuresing on his own quite well. His chest x-ray is showing improvement in his interstitial edema. He is on propofol at 50 mcg/kg/m. Patient is also receiving vital HPI 20 mL per hour. WBC count is 6 hemoglobin 7.9 and hematocrit 24.1 his electrolytes are normal bicarb is 31, BUN is improving down to 33 and creatinine is steadily improving down to 2.34. Patient remains in negative balance of over 5 L in the last 3 days. Again his chest x-ray is steadily improving and his oxygenation is also improving. Objective - Vital Signs Vital signs: Vital Signs Temp 98.7 F 08/18/22 04:00 Pulse 49 L 08/18/22 08:15 Resp 26 H 08/18/22 08:15 BP 115/97 08/14/22 12:45 Pulse Ox 96 08/18/22 08:15 FiO2 50 08/18/22 08:00 Intake & Output 08/17/22 08/18/22 08/18/22 18:59 06:59 18:59 Intake Total 710.464 3382.181 227.720 Output Total 2555 1625 250 Balance -1597.928 -362.819 -22.280 Weight 139 kg 137.7 kg Intake: IV 450 476 33 0.9 320 340 30 Piperacillin-Tazobactam 3 100 100 .375 gm In Sodium Chloride 0.9% 100 ml @ 25 mls/hr IVPB Q12HR [facility] Rx #:[id number] arterial line 30 36 3 Intake, IV Titration 387.072 546.181 164.720 Amount Norepinephrine 8 mg In 107.620 72.893 67.459 Sodium Chloride 0.9% 250 ml @ 0.03 MCG/KG/MIN 7. 952 mls/hr IV .Q24H [facility] Rx#:[id number] propofoL 1,000 mg In 279.452 473.288 97.261 Empty Bag 1 bag @ 15 MCG/ KG/MIN 12.329 mls/hr IV . Q8H7M [facility] Rx#:[id number] Tube Feeding 90 120 30 Other 30 120 Output: Urine 2555 1625 250 Other: Voiding Method Indwelling Catheter Indwelling Catheter Indwelling Catheter ABP, PAP, CO, CI - Last Documented Arterial Blood Pressure 104/47 - Exam Physical Exam: Revealed a 52-year-old white male intubated, mechanically ventilated Head: Atraumatic, normocephalic. Endotracheal tube and orogastric tube are intact. HEENT: Short obese neck noted. [Neck is supple.] [No neck masses.] [No thyromegaly.] [No JVD.] Chest: Minimal fine crackles at the bases no rhonchi and no wheezes Cardiac Exam: Distant S1 and S2, no S3 gallop, no murmur Abdomen: [Morbidly obese, Soft, nontender, no megaly, no rebound, no guarding, normal bowel sounds.] Extremities: [chronically edematous and there is evidence of chronic venous stasis. There is at least a 7 cm x 5 cm left lower extremity ones, no surrounding erythema, the wound surface is quite irregular, this is a deep 1 which is probably 1 cm deep and bone is being visualized. Both lower extremities are wrapped with sterile dressing. Neurological Exam: Could not assess, patient is sedated. Plan to hold sedation today and assess mental status. Psychiatric: Could not assess. Patient is sedated. Skin: As noted above under extremities - Labs CBC & Chem 7: 08/18/22 04:40 08/18/22 04:40 Labs: Abnormal Lab Results - Last 24 Hours (Table) 08/17/22 08/17/22 08/17/22 Range/Units 04:48 14:22 17:58 RBC (4.30-5.90) m/uL Hgb (13.0-17.5) gm/dL Hct (39.0-53.0) % Lymphocytes # (1.0-4.8) k/uL ABG HCO3 (21-25) mmol/L ABG Total CO2 (19-24) mmol/L ABG O2 Saturation (94-97) % Carbon Dioxide (22-30) mmol/L BUN (9-20) mg/dL Creatinine (0.66-1.25) mg/dL Glucose (74-99) mg/dL POC Glucose (mg/dL) 190 H 199 H (70-110) mg/dL Calcium (8.4-10.2) mg/dL Iron 24 L (65-175) ug/dL TIBC 185 L (228-460) ug/dL % Saturation 12.77 L (15.00-50.00) Transferrin 132.0 L (204.0-354.0) mg/dL 08/17/22 08/17/22 08/18/22 Range/Units 18:19 23:30 04:40 RBC (4.30-5.90) m/uL Hgb (13.0-17.5) gm/dL Hct (39.0-53.0) % Lymphocytes # (1.0-4.8) k/uL ABG HCO3 (21-25) mmol/L ABG Total CO2 (19-24) mmol/L ABG O2 Saturation (94-97) % Carbon Dioxide 31 H (22-30) mmol/L BUN 33 H (9-20) mg/dL Creatinine 2.34 H (0.66-1.25) mg/dL Glucose 156 H (74-99) mg/dL POC Glucose (mg/dL) 216 H 177 H (70-110) mg/dL Calcium 7.8 L (8.4-10.2) mg/dL Iron (65-175) ug/dL TIBC (228-460) ug/dL % Saturation (15.00-50.00) Transferrin (204.0-354.0) mg/dL 08/18/22 08/18/22 08/18/22 Range/Units 04:40 05:55 05:57 RBC 2.57 L (4.30-5.90) m/uL Hgb 7.9 L (13.0-17.5) gm/dL Hct 24.1 L (39.0-53.0) % Lymphocytes # 0.8 L (1.0-4.8) k/uL ABG HCO3 31 H (21-25) mmol/L ABG Total CO2 33 H (19-24) mmol/L ABG O2 Saturation 97.4 H (94-97) % Carbon Dioxide (22-30) mmol/L BUN (9-20) mg/dL Creatinine (0.66-1.25) mg/dL Glucose (74-99) mg/dL POC Glucose (mg/dL) 166 H (70-110) mg/dL Calcium (8.4-10.2) mg/dL Iron (65-175) ug/dL TIBC (228-460) ug/dL % Saturation (15.00-50.00) Transferrin (204.0-354.0) mg/dL Microbiology - Last 24 Hours (Table) 08/16/22 09:50 Blood Culture - Preliminary Blood 08/13/22 13:40 Blood Culture - Preliminary Blood 08/13/22 14:00 Blood Culture - Preliminary Blood Assessment and Plan Assessment: Impression: Acute hypoxic and hypercapnic respiratory failure, multifactorial. Acute pseudomonal pneumonia Acute on chronic diastolic congestive heart failure Acute fluid overload secondary to acute renal failure Acute on chronic kidney disease with diabetic nephropathy and hypertensive nephropathy. Chronic diabetic lower extremities ulcers with possible osteomyelitis/left lower extremity. Hypotension secondary to sepsis/septic shock. Still requiring norepinephrine at a low dose. Severe obstructive sleep apnea syndrome Obesity/hypoventilation syndrome Morbid obesity with BMI of 51.8 Chronic pain syndrome, patient has a chronic pain pump. In the left lower quadr ant. History of DVT History of factor V deficiency/hypercoagulable state Hypertension with hypertensive nephropathy/nephrosclerosis. Chronic back pain Anemia of chronic disease History of diverticulosis Recommendation: Continue ventilatory support, his FiO2 was cut down to 45% The PEEP at 8. We will have sedation interruption today, and assess mental status. Patient is not ready for any weaning. Continue antibiotics/Zosyn for pseudomonal pneumonia. Continue nutritional support/enteral feeding patient is on vital HPI at 20 mL per hour. Continue hemodynamic support as needed/norepinephrine Wound care as per infectious disease and podiatry on the case. Continue GI and DVT prophylaxis Continue to monitor in the ICU, patient is critically ill. We will continue to follow. Critical care time is over 30 minutes Time with Patient: Greater than 30
[2022-08-18 11:37] LABS: Glucose,Whole Blood 198 mg/dL (70-110)
--- NOTE | 2022-08-18 11:41 | P.PN ---
Subjective Patient is seen for follow-up for hyperkalemia and acute kidney injury. Patient received one hemodialysis treatment for persistent hyperkalemia on 08/14/2022. Since then urine output has improved to over more than 200 ML per hour. Patient remains intubated and on the vent. Levo fed is being decreased Potassium 3.5 today, status post replacement Serum creatinine down to 2.3. Objective - Vital Signs Vital signs: Vital Signs Temp 98.7 F 08/18/22 04:00 Pulse 49 L 08/18/22 08:15 Resp 26 H 08/18/22 08:15 BP 115/97 08/14/22 12:45 Pulse Ox 96 08/18/22 08:15 FiO2 50 08/18/22 08:00 Intake & Output 08/17/22 08/18/22 08/18/22 18:59 06:59 18:59 Intake Total 825.037 9653.181 227.720 Output Total 2555 1625 250 Balance -1597.928 -362.819 -22.280 Weight 139 kg 137.7 kg Intake: IV 450 476 33 0.9 320 340 30 Piperacillin-Tazobactam 3 100 100 .375 gm In Sodium Chloride 0.9% 100 ml @ 25 mls/hr IVPB Q12HR [facility] Rx #:[id number] arterial line 30 36 3 Intake, IV Titration 387.072 546.181 164.720 Amount Norepinephrine 8 mg In 107.620 72.893 67.459 Sodium Chloride 0.9% 250 ml @ 0.03 MCG/KG/MIN 7. 952 mls/hr IV .Q24H [facility] Rx#:[id number] propofoL 1,000 mg In 279.452 473.288 97.261 Empty Bag 1 bag @ 15 MCG/ KG/MIN 12.329 mls/hr IV . Q8H7M [facility] Rx#:[id number] Tube Feeding 90 120 30 Other 30 120 Output: Urine 2555 1625 250 Other: Voiding Method Indwelling Catheter Indwelling Catheter Indwelling Catheter ABP, PAP, CO, CI - Last Documented Arterial Blood Pressure 104/47 - Exam Patient is sedated and on the vent Examination of the heart S1 and S2 Examination lungs bilateral breath sounds are heard Abdomen is obese soft Examination of lower extremities shows chronic skin changes with significant edema bilaterally IT SUPPORT TECHNICIAN exam could not be performed - Labs CBC & Chem 7: 08/18/22 04:40 08/18/22 04:40 Labs: Abnormal Lab Results - Last 24 Hours (Table) 08/17/22 08/17/22 08/17/22 Range/Units 04:48 14:22 17:58 RBC (4.30-5.90) m/uL Hgb (13.0-17.5) gm/dL Hct (39.0-53.0) % Lymphocytes # (1.0-4.8) k/uL ABG HCO3 (21-25) mmol/L ABG Total CO2 (19-24) mmol/L ABG O2 Saturation (94-97) % Carbon Dioxide (22-30) mmol/L BUN (9-20) mg/dL Creatinine (0.66-1.25) mg/dL Glucose (74-99) mg/dL POC Glucose (mg/dL) 190 H 199 H (70-110) mg/dL Calcium (8.4-10.2) mg/dL Iron 24 L (65-175) ug/dL TIBC 185 L (228-460) ug/dL % Saturation 12.77 L (15.00-50.00) Transferrin 132.0 L (204.0-354.0) mg/dL 08/17/22 08/17/22 08/18/22 Range/Units 18:19 23:30 04:40 RBC (4.30-5.90) m/uL Hgb (13.0-17.5) gm/dL Hct (39.0-53.0) % Lymphocytes # (1.0-4.8) k/uL ABG HCO3 (21-25) mmol/L ABG Total CO2 (19-24) mmol/L ABG O2 Saturation (94-97) % Carbon Dioxide 31 H (22-30) mmol/L BUN 33 H (9-20) mg/dL Creatinine 2.34 H (0.66-1.25) mg/dL Glucose 156 H (74-99) mg/dL POC Glucose (mg/dL) 216 H 177 H (70-110) mg/dL Calcium 7.8 L (8.4-10.2) mg/dL Iron (65-175) ug/dL TIBC (228-460) ug/dL % Saturation (15.00-50.00) Transferrin (204.0-354.0) mg/dL 08/18/22 08/18/22 08/18/22 Range/Units 04:40 05:55 05:57 RBC 2.57 L (4.30-5.90) m/uL Hgb 7.9 L (13.0-17.5) gm/dL Hct 24.1 L (39.0-53.0) % Lymphocytes # 0.8 L (1.0-4.8) k/uL ABG HCO3 31 H (21-25) mmol/L ABG Total CO2 33 H (19-24) mmol/L ABG O2 Saturation 97.4 H (94-97) % Carbon Dioxide (22-30) mmol/L BUN (9-20) mg/dL Creatinine (0.66-1.25) mg/dL Glucose (74-99) mg/dL POC Glucose (mg/dL) 166 H (70-110) mg/dL Calcium (8.4-10.2) mg/dL Iron (65-175) ug/dL TIBC (228-460) ug/dL % Saturation (15.00-50.00) Transferrin (204.0-354.0) mg/dL 08/18/22 Range/Units 11:36 RBC (4.30-5.90) m/uL Hgb (13.0-17.5) gm/dL Hct (39.0-53.0) % Lymphocytes # (1.0-4.8) k/uL ABG HCO3 (21-25) mmol/L ABG Total CO2 (19-24) mmol/L ABG O2 Saturation (94-97) % Carbon Dioxide (22-30) mmol/L BUN (9-20) mg/dL Creatinine (0.66-1.25) mg/dL Glucose (74-99) mg/dL POC Glucose (mg/dL) 198 H (70-110) mg/dL Calcium (8.4-10.2) mg/dL Iron (65-175) ug/dL TIBC (228-460) ug/dL % Saturation (15.00-50.00) Transferrin (204.0-354.0) mg/dL Microbiology - Last 24 Hours (Table) 08/16/22 09:50 Blood Culture - Preliminary Blood 08/13/22 13:40 Blood Culture - Preliminary Blood 08/13/22 14:00 Blood Culture - Preliminary Blood Assessment and Plan Assessment: 1. Acute kidney injury secondary to ATN secondary to shock, likely septic. Also component of contrast-induced acute kidney injury. Oliguric. Creatinine 7.27 on admission. Creatinine in May 2022 as low as 0.87. No hydronephrosis noted on imaging. Status post hemodialysis 08/14/2022 due to pe rsistent hyperkalemia. Was oliguric initially but now nonoliguric. Creatinine 2.3 today. 2. Hyperkalemia secondary to acute kidney injury, spironolactone, lisinopril and potassium supplementation. Improved. 3. Lower extremity wounds on IV antibiotics. Also has wound VAC. 4. Diabetes mellitus. 5. Metabolic acidosis secondary to acute kidney injury, metformin. Improved. 6. Shock, likely septic. On Levophed. Plan: Continue off of IV fluids Replace potassium Continue to avoid nephrotoxic agents DC dialysis catheter in the next 1-2 days
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
[2022-08-18] MEDS: SODIUM CHLORIDE 0.9% 500 ML 500 ML IV SCH (14:30)
[2022-08-18 17:24] LABS: Glucose,Whole Blood 221 mg/dL (70-110)
[2022-08-18] MEDS: FAMOTIDINE 20 MG TAB PO SCH (21:05)
[2022-08-18] MEDS: LATANOPROST 0.005% OPHTH DROPS 2.5 ML BTL BOTH EYES SCH (21:06)
[2022-08-18 23:35] LABS: Glucose,Whole Blood 269 mg/dL (70-110)
[2022-08-19] MEDS: IPRATROPIUM-ALBUTEROL 3 ML NEB INHALATION SCH ×6 (00:26→20:50)
[2022-08-19] MEDS: NOREPINEPHRINE 4 MG in SODIUM CHLORIDE 0.9% 250 ML IV SCH ×2 (03:22→07:38)
[2022-08-19 05:55] LABS: Glucose,Whole Blood 241 mg/dL (70-110)
[2022-08-19 06:07] LABS: Basophils % (A) 0 %; Eosinophils # (A) 0.5 k/uL (0-0.7); Eosinophils % (A) 7 %; HGB 8.5 gm/dL (13.0-17.5); Lymphocytes # (A) 0.6 k/uL (1.0-4.8); Lymphocytes % (A) 10 %; MCH 30.9 pg (25.0-35.0); Mean Platelet Volume 8.1; Monocytes # (A) 0.4 k/uL (0-1.0); Monocytes % (A) 6 %; Neutrophils # (A) 4.6 k/uL (1.3-7.7); Neutrophils % (A) 74 %; Platelet Count 259 k/uL (150-450); Poikilocytosis Slight; RBC 2.75 m/uL (4.30-5.90); RDW 14.7 % (11.5-15.5); WBC 6.3 k/uL (3.8-10.6)
[2022-08-19 06:16] LABS: Calcium 7.9 mg/dL (8.4-10.2); Magnesium 1.8 mg/dL (1.6-2.3); Potassium 3.7 mmol/L (3.5-5.1)
[2022-08-19 06:20] LABS: ABG Base Excess 7.2 mmol/L; ABG HCO3 31 mmol/L (21-25); ABG Oxygen Saturation 94.6 % (94-97); ABG PCO2 46 mmHg (35-45); ABG PH 7.44 (7.35-7.45); ABG PO2 68 mmHg (83-108); ABG TCO2 33 mmol/L (19-24); Allen Test Performed? Yes
[2022-08-19] MEDS: INSULIN ASPART (NovoLOG) 100 UNIT/ML VIAL SQ SCH ×4 (06:25→23:47)
--- NOTE | 2022-08-19 07:15 | XR ---
EXAMINATION TYPE: XR chest 1V portable DATE OF EXAM: 08/19/2022 6:23 AM COMPARISON: Chest radiographs from 08/18/2022 TECHNIQUE: XR chest 1V portable Frontal view of the chest. CLINICAL INDICATION:Male, 52 years old with history of Tube placement; FINDINGS: Lungs/Pleura: There is no evidence of pleural effusion, focal consolidation, or pneumothorax. Pulmonary vascularity: Pulmonary vascular congestion. Heart/mediastinum: Cardiomediastinal silhouette is enlarged and stable. Musculoskeletal: No acute osseous pathology. Other findings: None Lines/Tubes: Endotracheal tube with distal tip 3.0 cm above the emre. Nasogastric tube with its distal tip and side-port projecting under the diaphragm. Left internal jugular central venous catheter with distal tip at the cavoatrial junction. IMPRESSION: 1. Stable support line and tubes. 2. Pulmonary vascular congestion with cardiomegaly correlate with serum BNP.
[2022-08-19] MEDS ORDERED: Potassium Replacement Protocol 1 EACH MISC MISCELLANE PRN (07:32)
[2022-08-19] MEDS: TAMSULOSIN 0.4 MG CAP.ER.24H PO SCH (07:34)
[2022-08-19] MEDS ORDERED: POTASSIUM BICARBONATE/CIT AC 20 MEQ TABLET.EFF NG-TUBE SCH (08:00)
[2022-08-19] MEDS: PIPERACILLIN-TAZOBACTAM 3.375 GM in SODIUM CHLORIDE 0.9% 100 ML IVPB SCH ×3 (08:04→23:47)
[2022-08-19] MEDS: DULoxetine HCL 30 MG CAPSULE.DR PO SCH (08:05)
[2022-08-19] MEDS: APIXABAN 2.5 MG TABLET PO SCH ×2 (08:05→20:11)
[2022-08-19] MEDS: SIMETHICONE 80 MG CHEWABLE PO SCH ×4 (08:05→20:12)
[2022-08-19] MEDS: ATORVASTATIN 80 MG TAB PO SCH (08:05)
[2022-08-19] MEDS: carBAMazepine 100 MG TAB.ER.12H PO SCH (08:05)
[2022-08-19] MEDS: LACTULOSE 20 GM/30 ML CUP PO SCH ×2 (08:05→20:11)
[2022-08-19] MEDS: PSYLLIUM HUSK 100% 6 GM PACKET PO SCH (08:05)
[2022-08-19] MEDS: CHLORHEXIDINE GLUCONATE 15 ML CUP MUCOUS MEM SCH (08:05)
[2022-08-19] MEDS: COLLAGENASE 250 UNIT/GM OINTMENT 30 GM TUBE TOPICAL SCH (10:35)
[2022-08-19] MEDS: NON FORMULARY DRUG (Lubiprostone [Amitiza] 24 MCG Capsule) PO SCH ×2 (10:35→20:12)
--- NOTE | 2022-08-19 10:38 | P.PN ---
Subjective Patient is seen for follow-up for hyperkalemia and acute kidney injury. Patient received one hemodialysis treatment for persistent hyperkalemia on 08/14/2022. Since then urine output has improved to over more than 200 ML per hour. Patient remains intubated and on the vent. Levo fed is off Potassium 3.7 today, status post replacement Serum creatinine down to 1.9 Objective - Vital Signs Vital signs: Vital Signs Temp 99.7 F H 08/19/22 04:00 Pulse 58 L 08/19/22 08:31 Resp 26 H 08/19/22 07:00 BP 115/97 08/14/22 12:45 Pulse Ox 96 08/19/22 07:00 FiO2 45 08/19/22 07:43 Intake & Output 08/18/22 08/19/22 08/19/22 18:59 06:59 18:59 Intake Total 229.909 3457.744 231.931 Output Total 1270 1630 180 Balance -306.722 -61.256 51.931 Weight 137.7 kg 137.8 kg Intake: IV 248 276 23 0.9 130 240 20 Piperacillin-Tazobactam 3 100 .375 gm In Sodium Chloride 0.9% 100 ml @ 25 mls/hr IVPB Q12HR [facility] Rx #:[id number] arterial line 18 36 3 Intake, IV Titration 480.278 612.744 173.931 Amount Norepinephrine 4 mg In 115.558 116.517 24.138 Sodium Chloride 0.9% 250 ml @ 0.03 MCG/KG/MIN 15. 657 mls/hr IV .[id number] [facility] Rx#:[id number] Norepinephrine 8 mg In 67.459 Sodium Chloride 0.9% 250 ml @ 0.03 MCG/KG/MIN 7. 952 mls/hr IV .Q24H [facility] Rx#:[id number] propofoL 1,000 mg In 297.261 496.227 149.793 Empty Bag 1 bag @ 15 MCG/ KG/MIN 12.329 mls/hr IV . Q8H7M [facility] Rx#:[id number] Tube Feeding 205 420 35 Other 30 260 Output: Urine 1270 1630 180 Other: Voiding Method Indwelling Catheter Indwelling Catheter ABP, PAP, CO, CI - Last Documented Arterial Blood Pressure 114/53 - Exam Patient is sedated and on the vent Examination of the heart S1 and S2 Examination lungs bilateral breath sounds are heard Abdomen is obese soft Examination of lower extremities shows chronic skin changes with significant edema bilaterally LOCKER ROOM ATTENDANT exam could not be performed - Labs CBC & Chem 7: 08/19/22 05:55 08/19/22 05:55 Labs: Abnormal Lab Results - Last 24 Hours (Table) 08/18/22 08/18/22 08/18/22 Range/Units 11:36 17:22 23:33 RBC (4.30-5.90) m/uL Hgb (13.0-17.5) gm/dL Hct (39.0-53.0) % Lymphocytes # (1.0-4.8) k/uL ABG pCO2 (35-45) mmHg ABG pO2 (83-108) mmHg ABG HCO3 (21-25) mmol/L ABG Total CO2 (19-24) mmol/L Carbon Dioxide (22-30) mmol/L BUN (9-20) mg/dL Creatinine (0.66-1.25) mg/dL Glucose (74-99) mg/dL POC Glucose (mg/dL) 198 H 221 H 269 H (70-110) mg/dL Calcium (8.4-10.2) mg/dL 08/19/22 08/19/22 08/19/22 Range/Units 05:52 05:55 05:55 RBC 2.75 L (4.30-5.90) m/uL Hgb 8.5 L (13.0-17.5) gm/dL Hct 25.0 L (39.0-53.0) % Lymphocytes # 0.6 L (1.0-4.8) k/uL ABG pCO2 (35-45) mmHg ABG pO2 (83-108) mmHg ABG HCO3 (21-25) mmol/L ABG Total CO2 (19-24) mmol/L Carbon Dioxide 31 H (22-30) mmol/L BUN 30 H (9-20) mg/dL Creatinine 1.95 H (0.66-1.25) mg/dL Glucose 220 H (74-99) mg/dL POC Glucose (mg/dL) 241 H (70-110) mg/dL Calcium 7.9 L (8.4-10.2) mg/dL 04/26/23 Range/Units 06:15 RBC (4.30-5.90) m/uL Hgb (13.0-17.5) gm/dL Hct (39.0-53.0) % Lymphocytes # (1.0-4.8) k/uL ABG pCO2 46 H (35-45) mmHg ABG pO2 68 L (83-108) mmHg ABG HCO3 31 H (21-25) mmol/L ABG Total CO2 33 H (19-24) mmol/L Carbon Dioxide (22-30) mmol/L BUN (9-20) mg/dL Creatinine (0.66-1.25) mg/dL Glucose (74-99) mg/dL POC Glucose (mg/dL) (70-110) mg/dL Calcium (8.4-10.2) mg/dL Microbiology - Last 24 Hours (Table) 08/16/22 09:50 Blood Culture - Preliminary Blood 08/13/22 13:40 Blood Culture - Final Blood 08/13/22 14:00 Blood Culture - Final Blood 08/17/22 01:00 Gram Stain - Preliminary Leg - Left Wound Culture - Preliminary 08/17/22 01:00 Anaerobic Culture - Preliminary Leg - Left Assessment and Plan Assessment: 1. Acute kidney injury secondary to ATN secondary to shock, likely septic. Also component of contrast-induced acute kidney injury. Oliguric. Creatinine 7.27 on admission. Creatinine in May 2022 as low as 0.87. No hydronephrosis noted on imaging. Status post hemodialysis 08/14/2022 due to persistent hyperkalemia. Was oliguric initially but now nonoliguric. Creatinine 1.9 today. 2. Hyperkalemia secondary to acute kidney injury, spironolactone, lisinopril and potassium supplementation. Improved. 3. Lower extremity wounds on IV antibiotics. Also has wound VAC. 4. Diabetes mellitus. 5. Metabolic acidosis secondary to acute kidney injury, metformin. Improved. 6. Shock, likely septic. Off of pressors Plan: Continue off of IV fluids Replace potassium Continue to avoid nephrotoxic agents DC dialysis catheter
[2022-08-19 11:26] LABS: Glucose,Whole Blood 264 mg/dL (70-110)
[2022-08-19 11:33] LABS: ABG Base Excess 8.1 mmol/L; ABG HCO3 32 mmol/L (21-25); ABG PCO2 43 mmHg (35-45); ABG PH 7.47 (7.35-7.45); ABG PO2 167 mmHg (83-108); ABG TCO2 33 mmol/L (19-24)
[2022-08-19 11:36] LABS: Allen Test Performed? no
[2022-08-19] MEDS ORDERED: IPRATROPIUM-ALBUTEROL 3 ML NEB INHALATION PRN (12:31)
[2022-08-19] MEDS: SODIUM CHLORIDE 0.9% 500 ML 500 ML IV SCH (12:48)
--- NOTE | 2022-08-19 13:05 | P.PN ---
Subjective Progress Note Date: 08/18/22 Principal diagnosis: Pneumonia and left leg wound Patient is a 52-year old male with a past medical history significant for diabetes mellitus hypertension hyperlipidemia DVT, with a recent admission to [facility] from 07/31 to 08/07/2022 apparently the patient did have a wound to the left lower extremity to the anterior jacob and a wound on the plantar aspect of his left foot that was evaluated and treated by Dr. Coleman, with a wound VAC with a readmission to the hospital with acute respiratory failure requiring intubation did have a fever and concerning for pneumonia sputum is growing Pseudomonas and patient also have acute renal failure requiring dialysis. Left leg wound VAC was discontinued on 08/18/2019 as he did have significant slough tissue at the base of the wound per the wound care nurse On today's evaluation had that is 08/18/2022, the patient remains to be afebrile , patient is off pressor support per the nursing staff, the patient is currently requiring 50 % FiO2 to maintain his O2 sats, no significant purulent secretion through the ET or diarrhea reported Objective - Vital Signs Vital signs: Vital Signs Temp 98.7 F 08/18/22 04:00 Pulse 49 L 08/18/22 08:15 Resp 26 H 08/18/22 08:15 BP 115/97 08/14/22 12:45 Pulse Ox 96 08/18/22 08:15 FiO2 50 08/18/22 12:05 Intake & Output 08/17/22 08/18/22 08/18/22 18:59 06:59 18:59 Intake Total 417.603 2766.181 227.720 Output Total 2555 1625 250 Balance -1597.928 -362.819 -22.280 Weight 139 kg 137.7 kg Intake: IV 450 476 33 0.9 320 340 30 Piperacillin-Tazobactam 3 100 100 .375 gm In Sodium Chloride 0.9% 100 ml @ 25 mls/hr IVPB Q12HR [facility] Rx #:[id number] arterial line 30 36 3 Intake, IV Titration 387.072 546.181 164.720 Amount Norepinephrine 8 mg In 107.620 72.893 67.459 Sodium Chloride 0.9% 250 ml @ 0.03 MCG/KG/MIN 7. 952 mls/hr IV .Q24H [facility] Rx#:[id number] propofoL 1,000 mg In 279.452 473.288 97.261 Empty Bag 1 bag @ 15 MCG/ KG/MIN 12.329 mls/hr IV . Q8H7M [facility] Rx#:[id number] Tube Feeding 90 120 30 Other 30 120 Output: Urine 2555 1625 250 Other: Voiding Method Indwelling Catheter Indwelling Catheter Indwelling Catheter ABP, PAP, CO, CI - Last Documented Arterial Blood Pressure 104/47 - Exam GENERAL DESCRIPTION: A middle-age male intubated on the vent RESPIRATORY SYSTEM: Unlabored breathing , decreased breath sounds at bases HEART: S1 S2 regular rate and rhythm , ABDOMEN: Soft , no tenderness EXTREMITIES: Diffuse swelling to bilateral lower extremity with a wound to the left jacob did have a slough tissue minimal surrounding redness - Labs CBC & Chem 7: 08/19/22 05:55 08/19/22 05:55 Labs: Abnormal Lab Results - Last 24 Hours (Table) 08/17/22 08/17/22 08/17/22 Range/Units 04:48 14:22 17:58 RBC (4.30-5.90) m/uL Hgb (13.0-17.5) gm/dL Hct (39.0-53.0) % Lymphocytes # (1.0-4.8) k/uL ABG HCO3 (21-25) mmol/L ABG Total CO2 (19-24) mmol/L ABG O2 Saturation (94-97) % Carbon Dioxide (22-30) mmol/L BUN (9-20) mg/dL Creatinine (0.66-1.25) mg/dL Glucose (74-99) mg/dL POC Glucose (mg/dL) 190 H 199 H (70-110) mg/dL Calcium (8.4-10.2) mg/dL Iron 24 L (65-175) ug/dL TIBC 185 L (228-460) ug/dL % Saturation 12.77 L (15.00-50.00) Transferrin 132.0 L (204.0-354.0) mg/dL 08/17/22 08/17/22 08/18/22 Range/Units 18:19 23:30 04:40 RBC (4.30-5.90) m/uL Hgb (13.0-17.5) gm/dL Hct (39.0-53.0) % Lymphocytes # (1.0-4.8) k/uL ABG HCO3 (21-25) mmol/L ABG Total CO2 (19-24) mmol/L ABG O2 Saturation (94-97) % Carbon Dioxide 31 H (22-30) mmol/L BUN 33 H (9-20) mg/dL Creatinine 2.34 H (0.66-1.25) mg/dL Glucose 156 H (74-99) mg/dL POC Glucose (mg/dL) 216 H 177 H (70-110) mg/dL Calcium 7.8 L (8.4-10.2) mg/dL Iron (65-175) ug/dL TIBC (228-460) ug/dL % Saturation (15.00-50.00) Transferrin (204.0-354.0) mg/dL 08/18/22 08/18/22 08/18/22 Range/Units 04:40 05:55 05:57 RBC 2.57 L (4.30-5.90) m/uL Hgb 7.9 L (13.0-17.5) gm/dL Hct 24.1 L (39.0-53.0) % Lymphocytes # 0.8 L (1.0-4.8) k/uL ABG HCO3 31 H (21-25) mmol/L ABG Total CO2 33 H (19-24) mmol/L ABG O2 Saturation 97.4 H (94-97) % Carbon Dioxide (22-30) mmol/L BUN (9-20) mg/dL Creatinine (0.66-1.25) mg/dL Glucose (74-99) mg/dL POC Glucose (mg/dL) 166 H (70-110) mg/dL Calcium (8.4-10.2) mg/dL Iron (65-175) ug/dL TIBC (228-460) ug/dL % Saturation (15.00-50.00) Transferrin (204.0-354.0) mg/dL 08/18/22 Range/Units 11:36 RBC (4.30-5.90) m/uL Hgb (13.0-17.5) gm/dL Hct (39.0-53.0) % Lymphocytes # (1.0-4.8) k/uL ABG HCO3 (21-25) mmol/L ABG Total CO2 (19-24) mmol/L ABG O2 Saturation (94-97) % Carbon Dioxide (22-30) mmol/L BUN (9-20) mg/dL Creatinine (0.66-1.25) mg/dL Glucose (74-99) mg/dL POC Glucose (mg/dL) 198 H (70-110) mg/dL Calcium (8.4-10.2) mg/dL Iron (65-175) ug/dL TIBC (228-460) ug/dL % Saturation (15.00-50.00) Transferrin (204.0-354.0) mg/dL Microbiology - Last 24 Hours (Table) 08/16/22 09:50 Blood Culture - Preliminary Blood 08/13/22 13:40 Blood Culture - Preliminary Blood 08/13/22 14:00 Blood Culture - Preliminary Blood Assessment and Plan (1) Pseudomonas pneumonia Current Visit: Yes Status: Acute Code(s): J15.1 - PNEUMONIA DUE TO PSEUDOMONAS SNOMED Code(s): 77858532 (2) Fever Current Visit: No Status: Acute Code(s): R50.9 - FEVER, UNSPECIFIED SNOMED Code(s): 850621951 Plan: 1patient was in the hospital with sepsis in this patient with a fever elevated white count source is likely multifactorial with concern for possible component of pneumonia sputum showing Pseudomonas and the patient also have multiple wound especially left lower extremity and concern for possible secondary cellulitis 2-patient with renal failure requiring dialysis and high risk for nephrotoxicity 3-the patient blood cultures has been negative so far 4-patient to continue with the Zosyn to cover the Pseudomonas is sensitive 5-local wound care to the left leg with Santyl followed by moist dressing awaiting surgical debridement by his scale manager Time with Patient: Less than 30
--- NOTE | 2022-08-19 13:07 | P.PN ---
Subjective Progress Note Date: 08/19/22 Principal diagnosis: Pneumonia and left leg wound Patient is a 52-year old male with a past medical history significant for diabetes mellitus hypertension hyperlipidemia DVT, with a recent admission to [facility] from 07/31 to 08/07/2022 apparently the patient did have a wound to the left lower extremity to the anterior jacob and a wound on the plantar aspect of his left foot that was evaluated and treated by Dr. Coleman, with a wound VAC with a readmission to the hospital with acute respiratory failure requiring intubation did have a fever and concerning for pneumonia sputum is growing Pseudomonas and patient also have acute renal failure requiring dialysis. Left leg wound VAC was discontinued on 08/18/2019 as he did have significant slough tissue at the base of the wound per the wound care nurse On today's evaluation had that is 08/19/2022, the patient did have a low-grade fever of 99F , patient is off pressor support per the nursing staff, the patient is currently requiring 40 % FiO2 to maintain his O2 sats and is undergoing weaning trials for possible extubation this morning, no significant purulent secretion through the ET or diarrhea reported Objective - Vital Signs Vital signs: Vital Signs Temp 99.2 F 08/19/22 12:00 Pulse 80 08/19/22 12:30 Resp 13 08/19/22 12:30 BP 115/97 08/14/22 12:45 Pulse Ox 96 08/19/22 12:30 FiO2 4 08/19/22 12:30 Intake & Output 08/18/22 08/19/22 08/19/22 18:59 06:59 18:59 Intake Total 057.425 0504.744 497.017 Output Total 1270 1630 880 Balance -306.722 -61.256 -382.983 Weight 137.7 kg 137.8 kg Intake: IV 248 276 138 0.9 130 240 120 Piperacillin-Tazobactam 3 100 .375 gm In Sodium Chloride 0.9% 100 ml @ 25 mls/hr IVPB Q12HR [facility] Rx #:[id number] arterial line 18 36 18 Intake, IV Titration 480.278 612.744 189.017 Amount Norepinephrine 4 mg In 115.558 116.517 36.142 Sodium Chloride 0.9% 250 ml @ 0.03 MCG/KG/MIN 15. 657 mls/hr IV .[id number] [facility] Rx#:[id number] Norepinephrine 8 mg In 67.459 Sodium Chloride 0.9% 250 ml @ 0.03 MCG/KG/MIN 7. 952 mls/hr IV .Q24H [facility] Rx#:[id number] propofoL 1,000 mg In 297.261 496.227 152.875 Empty Bag 1 bag @ 15 MCG/ KG/MIN 12.329 mls/hr IV . Q8H7M [facility] Rx#:[id number] Tube Feeding 205 420 140 Other 30 260 30 Output: Urine 1270 1630 880 Other: Voiding Method Indwelling Catheter Indwelling Catheter Indwelling Catheter ABP, PAP, CO, CI - Last Documented Arterial Blood Pressure 142/65 - Exam GENERAL DESCRIPTION: A middle-age male intubated on the vent RESPIRATORY SYSTEM: Unlabored breathing , decreased breath sounds at bases HEART: S1 S2 regular rate and rhythm , ABDOMEN: Soft , no tenderness EXTREMITIES: Diffuse swelling to bilateral lower extremity with a wound to the left jacob did have a slough tissue minimal surrounding redness - Labs CBC & Chem 7: 08/19/22 05:55 08/19/22 05:55 Labs: Abnormal Lab Results - Last 24 Hours (Table) 08/18/22 08/18/22 08/19/22 Range/Units 17:22 23:33 05:52 RBC (4.30-5.90) m/uL Hgb (13.0-17.5) gm/dL Hct (39.0-53.0) % Lymphocytes # (1.0-4.8) k/uL ABG pH (7.35-7.45) ABG pCO2 (35-45) mmHg ABG pO2 (83-108) mmHg ABG HCO3 (21-25) mmol/L ABG Total CO2 (19-24) mmol/L ABG O2 Saturation (94-97) % Carbon Dioxide (22-30) mmol/L BUN (9-20) mg/dL Creatinine (0.66-1.25) mg/dL Glucose (74-99) mg/dL POC Glucose (mg/dL) 221 H 269 H 241 H (70-110) mg/dL Calcium (8.4-10.2) mg/dL 08/19/22 08/19/22 08/19/22 Range/Units 05:55 05:55 06:15 RBC 2.75 L (4.30-5.90) m/uL Hgb 8.5 L (13.0-17.5) gm/dL Hct 25.0 L (39.0-53.0) % Lymphocytes # 0.6 L (1.0-4.8) k/uL ABG pH (7.35-7.45) ABG pCO2 46 H (35-45) mmHg ABG pO2 68 L (83-108) mmHg ABG HCO3 31 H (21-25) mmol/L ABG Total CO2 33 H (19-24) mmol/L ABG O2 Saturation (94-97) % Carbon Dioxide 31 H (22-30) mmol/L BUN 30 H (9-20) mg/dL Creatinine 1.95 H (0.66-1.25) mg/dL Glucose 220 H (74-99) mg/dL POC Glucose (mg/dL) (70-110) mg/dL Calcium 7.9 L (8.4-10.2) mg/dL 08/19/22 08/19/22 Range/Units 11:25 11:31 RBC (4.30-5.90) m/uL Hgb (13.0-17.5) gm/dL Hct (39.0-53.0) % Lymphocytes # (1.0-4.8) k/uL ABG pH 7.47 H (7.35-7.45) ABG pCO2 (35-45) mmHg ABG pO2 167 H (83-108) mmHg ABG HCO3 32 H (21-25) mmol/L ABG Total CO2 33 H (19-24) mmol/L ABG O2 Saturation 100.0 H (94-97) % Carbon Dioxide (22-30) mmol/L BUN (9-20) mg/dL Creatinine (0.66-1.25) mg/dL Glucose (74-99) mg/dL POC Glucose (mg/dL) 264 H (70-110) mg/dL Calcium (8.4-10.2) mg/dL Microbiology - Last 24 Hours (Table) 08/17/22 01:00 Gram Stain - Preliminary Leg - Left Wound Culture - Preliminary Gram Neg Bacilli 08/16/22 09:50 Blood Culture - Preliminary Blood 08/13/22 13:40 Blood Culture - Final Blood 08/13/22 14:00 Blood Culture - Final Blood 08/17/22 01:00 Anaerobic Culture - Preliminary Leg - Left Assessment and Plan (1) Pseudomonas pneumonia Current Visit: Yes Status: Acute Code(s): J15.1 - PNEUMONIA DUE TO PSEUDOMONAS SNOMED Code(s): 68421332 (2) Fever Current Visit: No Status: Acute Code(s): R50.9 - FEVER, UNSPECIFIED SNOMED Code(s): 815335432 Plan: 1patient was in the hospital with sepsis in this patient with a fever elevated white count source is likely multifactorial with concern for possible component of pneumonia sputum showing Pseudomonas and the patient also have multiple wound especially left lower extremity and concern for possible secondary cellulitis 2-patient with renal failure requiring dialysis and high risk for nephrotoxicity 3-the patient blood cultures has been negative so far, sputum is growing Pseudomonas, left leg wound is also growing gram-negative with ID and sensitivities pending 4-patient local wound care to the left leg with Santyl followed by moist dressing awaiting surgical debridement by his bar tacker 5- we will continue with the Zosyn and will monitor his clinical course closely Family the bedside questions were answered Time with Patient: Less than 30
[2022-08-19] MEDS: bisacodyL 10 MG SUPP RECTAL PRN (13:29)
--- NOTE | 2022-08-19 14:09 | P.PN ---
Subjective Progress Note Date: 08/19/22 Principal diagnosis: Acute hypoxic respiratory failure secondary to fluid overload/interstitial edema secondary to acute on chronic renal failure and superimposed pseudomonas aerug inosa pneumonia. This is a morbidly obese 53-year-old male patient who arrived to us from the detention. The patient was the hospital and was discharged to the detention on 08/07/2022. He has multiple medical problems and comorbidities. He is morbidly obese with a body mass index of 49. He is diabetic and his blood sugars have been poorly controlled and he has a diabetic ones in his left lower extremity jacob and this is a deep wound reaching his bone. This has been evaluated by Dr. Coleman and the patient was given wound care treatment. He does have charcoal joints related to his diabetes mellitus. He does have a component of chronic kidney disease, stage III related to hypertensive nephrosclerosis. 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 Note that his previous creatinine has been in the range of 1.48 prior to him being discharged. Yesterday, the patient presented to the emergency department because of difficulties with ones. He initially denies having any other complaints. No reported fever or chills. The patient apparently told the emergency physician that he was unsure exactly why he was sent into the emergency. I'm going to check the detention records accordingly. Meanwhile, while in the emergency, the patient was found to be in acute kidney injury. He had significant abnormalities in his blood work and the patient had a initial the 119, creatinine of 7.2, sodium of 1:30, potassium of 7.3, bicarb of 20, lactic acid level of 3.2, troponin of 0.02, and his white cell count was at 9.2 with a hemoglobin 10.7 and a platelet count of 247. This was consistent with an acute kidney injury. At that point, nephrology was consulted. Arrangements were made for this patient to undergo dialysis as the patient was offered treatment for his hyperkalemia and he did not respond. In fact his repeat potassium was at 7.6. At that time, he was decided to dialyze this patient. Dialysis catheter was inserted in the right femoral vein. The patient while on dialysis was noted to be progressively more apneic. The blood gas was done and he was found to be in acute on top of chronic respiratory acidosis in addition to a component of metabolic acidosis. PH was at 7.16 with a pCO2 of 60 and pO2 of 84. It was decided to proceed with intubation mechanical ventilation to maintain his breathing. As such, the patient was intubated and he was sent to the intensive care unit. This morning, the patient remains intubated. He is on propofol running at 40 mcg/kg/m. He is calm and comfortable. He is on mechanical ventilator assist control mode at the rate of 20, tidal volume 600, FiO2 of 100% with a PEEP of 5. His peak airway pressure is 35. Follow-up blood gases showed a pH of 7.22 with a pCO2 of 51 and pO2 of 66. I reviewed the series of chest x-rays including the one that was done today. There is evidence of interstitial edema along with cardiomegaly. The orotracheal tube is in good location for now. The follow-up morning blood gases showed a pH of 7.22 with a pCO2 of 51 and pO2 of 66 and this was on FiO2 of 100%. At the same time, the patient became hypotensive. He is currently on norepinephrine running at 0.06 mcg/kg/m. IV fluids currently at normal saline at the rate of 75 mL an hour. He does not produce any urine output for the time being. He is afebrile for now. The findings on the case. The patient is receiving a full session of hemodialysis today. In fact, he is currently undergoing hemodialysis. Blood sugars from this morning was at 125, On today's evaluation of 08/15/2022, the patient is intubated on mechanical vent ilator. He remains sedated on propofol running at 50 mcg/kg/m. His calm and comfortable and very much interested mechanical ventilator. He remains on assist-control mode at a rate of 26, tidal volume of 450, FiO2 of 70% with a PEEP of 8. Chest x-ray still showing interstitial edema consistent with CHF and volume overload. The tube is in a good location. The patient was given a triple-lumen catheter in his left IJ yesterday. Blood gas shows a pH of 7.36 with a pCO2 of 45 and pO2 of 76 and this was on FiO2 of 70%. No significant orotracheal secretions. The patient has mild leukocytosis with a white cell count of 12.4. He is on IV Zosyn as an empiric antibiotic coverage for now. Meanwhile, he underwent hemodialysis yesterday. His potassium level has dropped down to 4.8. On today's blood work, he has a BUN of 56 with a creatinine of 4.5. He has a Castillo catheter in place and the urine output is in order of 200 mL an hour as such his urine output has picked up and improves. The patient is being seen by nephrology. I'm not sure if we're proceeding with another session of hemodialysis today as the patient's urine output has improved. Further discussion with the with nephrology. Meanwhile, hemodynamically, he remains on low-dose pressors and norepinephrine is running at 0.09 mcg/kg/m. He remains on IV fluids at KVO. A wound VAC was applied to his left lower extremity. Sputum cultures and obtain a blood cultures were obtained and the results of those are still pending. He has not started enteral feeding yet. He is on NovoLog sliding scale coverage. He is also on long-term and coagulation with Eliquis at a dose of 2.5 mg twice a day. 08/16/2022, the patient remains intubated on a mechanical ventilator. He remains on propofol running at 50 mcg/kg/m his adequately sedated. He started spiking temperature as of this morning and a T-max was 101.3. As such, further fever workup is being done. Meanwhile, there is a concern that the patient may have a pneumonia on top of his CHF and fluid overload. Sputum is positive for Pseudomonas species and the patient is currently on IV Zosyn. The chest x-ray still showing interstitial infiltrates bilaterally, no consolidation. Blood gas from today shows a pH of 7.38 with episodes of 46 and pO2 of 97. As such, his oxygenation is improved compared to yesterday. He remains on the same ventilator settings with a assist-control mode at the rate of 26, tidal volume of 450, FiO2 of 70% and a PEEP of 8. Peak airway pressure is 40. He is not going to get dialyzed today as the patient is producing copious amount of urine output. I was told that his urine output at times is at high as 500 mL an hour. He is diuresing adequately. No diuretics for now. His BUN is a 50 with a creatinine of 4 and there is interval improvement in his kidney function. Sodium is at 138. The WBC count is at 8.8 with a hemoglobin 8.3 and a platelet count of 232. He is receiving enteral feeding for nutritional support. He was started on Nepro at the rate of 10 mL an hour. He remains on IV Zosyn. He is on low-dose norepinephrine at 0.05 mcg/kg/m. His cardiac rhythm is sinus. He remains on long-term and coagulation with Eliquis. He has a wound VAC applied to his left lower extremity as the patient has a deep wound in the anterior aspect of the left leg without any surrounding cellulitis. THE WOUND VAC IS IN ORDER OF 0 ML OVER THE PAST 24 HOURS. Reevaluated today on 08/17/2022, patient remains in the ICU, intubated and mechanically ventilated. Patient is on assist control rate of 26 tidal volume 450 FiO2 50% and PEEP of 8. Patient has been on mechanical ventilation since 08/13/2022, ABG showed a pO2 of 84 pCO2 45 pH of 7.45. Patient is still on relatively low dose of norepinephrine at 0.04 mcg/kg/m propofol at 50 by grams per kilo per minute IV fluid is at KVO. Urine output seems to be improving on its own without any intervention. Patient did have dialysis at one point. Continues to have a hemodialysis catheter in the right groin. Continues to have wound VAC applied to left lower extremity. And being followed closely by infectious disease and by podiatry for his lower extremity cellulitis. Chest x- ray continues to show bilateral interstitial edema/infiltrates. BNP level remains elevated at 6710. WBC count is 7.3 hemoglobin 8.2 basic metabolic profile is relatively normal renal functioning is improving creatinine is down to 2.96 today compared to 4.03 yesterday patient remains on Zosyn, sputum cultures have been positive for pseudomonas aeruginosa Reevaluated today on 08/18/2022, patient remains in the ICU, intubated and mechanically ventilated. He is on assist control rate of 26 tidal volume 450 FiO2 50% and PEEP of 8. ABG showed a pO2 of 84 pCO2 45 pH of 7.45. Hence his FiO2 was cut down to 45% and The PEEP at 8. Patient is requiring low-dose norepinephrine at 0.03 mcg/kg/m his IV fluids at KVO and he is diuresing on his own quite well. His chest x-ray is showing improvement in his interstitial edema. He is on propofol at 50 mcg/kg/m. Patient is also receiving vital HPI 20 mL per hour. WBC count is 6 hemoglobin 7.9 and hematocrit 24.1 his electrolytes are normal bicarb is 31, BUN is improving down to 33 and creatinine is steadily improving down to 2.34. Patient remains in negative balance of over 5 L in the last 3 days. Again his chest x-ray is steadily improving and his oxygenation is also improving. Reevaluated today on 08/19/2022, patient remains in the ICU, intubated and mechanically ventilated. Patient remains on assist control rate of 26 tidal volume 450 FiO2 45% and PEEP of 8 ABG showed a pO2 of 68 pCO2 46 pH of 7.44. Patient remains on propofol at 45 mcg/kg/m, remains on Zosyn, his off norepinephrine, and he continues to diurese well on his own without any intervention. Remains on vital HPI 35 mL per hour. Chest x-ray continues to show steady improvement in his interstitial edema. Patient remains in negative fluid balance over the last few days. Sitting the steady improvement, I went ahead and recommended holding sedation, I also recommended weaning parameters, and a trial of weaning if weaning parameters are excellent with a pressure support of 10 and CPAP. Shortly after, the ABG came back showing a pO2 of 167 pCO2 43 pH of 7.47, hence while I was in the ICU, I recommended extubation of the patient. Patient was extubated to BiPAP, he normally has BiPAP at home with 18/14/40% FiO2. Labs today showed steady renal improvement his BUN is down to 30 creatinine 1.95, Electrolytesenc are normal. Objective - Vital Signs Vital signs: Vital Signs Temp 99.2 F 08/19/22 12:00 Pulse 77 08/19/22 14:00 Resp 20 08/19/22 14:00 BP 115/97 08/14/22 12:45 Pulse Ox 99 08/19/22 14:00 FiO2 4 08/19/22 12:30 Intake & Output 08/18/22 08/19/22 08/19/22 18:59 06:59 18:59 Intake Total 783.134 4920.744 543.017 Output Total 1270 1630 1230 Balance -306.722 -61.256 -686.983 Weight 137.7 kg 137.8 kg Intake: IV 248 276 184 0.9 130 240 160 Piperacillin-Tazobactam 3 100 .375 gm In Sodium Chloride 0.9% 100 ml @ 25 mls/hr IVPB Q12HR [facility] Rx #:[id number] arterial line 18 36 24 Intake, IV Titration 480.278 612.744 189.017 Amount Norepinephrine 4 mg In 115.558 116.517 36.142 Sodium Chloride 0.9% 250 ml @ 0.03 MCG/KG/MIN 15. 657 mls/hr IV .[id number] [facility] Rx#:[id number] Norepinephrine 8 mg In 67.459 Sodium Chloride 0.9% 250 ml @ 0.03 MCG/KG/MIN 7. 952 mls/hr IV .Q24H [facility] Rx#:[id number] propofoL 1,000 mg In 297.261 496.227 152.875 Empty Bag 1 bag @ 15 MCG/ KG/MIN 12.329 mls/hr IV . Q8H7M [facility] Rx#:[id number] Tube Feeding 205 420 140 Other 30 260 30 Output: Urine 1270 1630 1230 Other: Voiding Method Indwelling Catheter Indwelling Catheter Indwelling Catheter ABP, PAP, CO, CI - Last Documented Arterial Blood Pressure 149/73 - Exam Physical Exam: Revealed a 52-year-old white male intubated, mechanically ventilated, sedated, on propofol. Head: Atraumatic, normocephalic. Endotracheal tube and orogastric tube are intact. HEENT: Short obese neck noted. [Neck is supple.] [No neck masses.] [No thyromeg jim.] [No JVD.] Chest: Crackles at the bases persist. No rhonchi no wheezes Cardiac Exam: Distant S1 and S2, no S3 gallop, no murmur Abdomen: [Morbidly obese, Soft, nontender, no megaly, no rebound, no guarding, normal bowel sounds.] Extremities: [chronically edematous and there is evidence of chronic venous stasis. Both lower extremities are wrapped with sterile dressing Neurological Exam: Could not assess, patient is sedated. Plan to hold sedation today and assess mental status. Patient was reevaluated postextubation, seems to be appropriate. No focal neurologic deficits. Psychiatric: Reevaluated after extubation, normal mood affect and normal mental status examination. Skin: As noted above under extremities - Labs CBC & Chem 7: 08/19/22 05:55 08/19/22 05:55 Labs: Abnormal Lab Results - Last 24 Hours (Table) 08/18/22 08/18/22 08/19/22 Range/Units 17:22 23:33 05:52 RBC (4.30-5.90) m/uL Hgb (13.0-17.5) gm/dL Hct (39.0-53.0) % Lymphocytes # (1.0-4.8) k/uL ABG pH (7.35-7.45) ABG pCO2 (35-45) mmHg ABG pO2 (83-108) mmHg ABG HCO3 (21-25) mmol/L ABG Total CO2 (19-24) mmol/L ABG O2 Saturation (94-97) % Carbon Dioxide (22-30) mmol/L BUN (9-20) mg/dL Creatinine (0.66-1.25) mg/dL Glucose (74-99) mg/dL POC Glucose (mg/dL) 221 H 269 H 241 H (70-110) mg/dL Calcium (8.4-10.2) mg/dL 08/19/22 08/19/22 08/19/22 Range/Units 05:55 05:55 06:15 RBC 2.75 L (4.30-5.90) m/uL Hgb 8.5 L (13.0-17.5) gm/dL Hct 25.0 L (39.0-53.0) % Lymphocytes # 0.6 L (1.0-4.8) k/uL ABG pH (7.35-7.45) ABG pCO2 46 H (35-45) mmHg ABG pO2 68 L (83-108) mmHg ABG HCO3 31 H (21-25) mmol/L ABG Total CO2 33 H (19-24) mmol/L ABG O2 Saturation (94-97) % Carbon Dioxide 31 H (22-30) mmol/L BUN 30 H (9-20) mg/dL Creatinine 1.95 H (0.66-1.25) mg/dL Glucose 220 H (74-99) mg/dL POC Glucose (mg/dL) (70-110) mg/dL Calcium 7.9 L (8.4-10.2) mg/dL 08/19/22 08/19/22 Range/Units 11:25 11:31 RBC (4.30-5.90) m/uL Hgb (13.0-17.5) gm/dL Hct (39.0-53.0) % Lymphocytes # (1.0-4.8) k/uL ABG pH 7.47 H (7.35-7.45) ABG pCO2 (35-45) mmHg ABG pO2 167 H (83-108) mmHg ABG HCO3 32 H (21-25) mmol/L ABG Total CO2 33 H (19-24) mmol/L ABG O2 Saturation 100.0 H (94-97) % Carbon Dioxide (22-30) mmol/L BUN (9-20) mg/dL Creatinine (0.66-1.25) mg/dL Glucose (74-99) mg/dL POC Glucose (mg/dL) 264 H (70-110) mg/dL Calcium (8.4-10.2) mg/dL Microbiology - Last 24 Hours (Table) 08/17/22 01:00 Gram Stain - Preliminary Leg - Left Wound Culture - Preliminary Gram Neg Bacilli 08/16/22 09:50 Blood Culture - Preliminary Blood 08/13/22 13:40 Blood Culture - Final Blood 08/13/22 14:00 Blood Culture - Final Blood 08/17/22 01:00 Anaerobic Culture - Preliminary Leg - Left Assessment and Plan Assessment: Impression: Acute hypoxic and hypercapnic respiratory failure, multifactorial. Acute pseudomonal pneumonia Acute on chronic diastolic congestive heart failure Acute fluid overload secondary to acute renal failure Acute on chronic kidney disease with diabetic nephropathy and hypertensive nephropathy. Chronic diabetic lower extremities ulcers with possible osteomyelitis/left lower extremity. Hypotension secondary to sepsis/septic shock. Still requiring norepinephrine at a low dose. Severe obstructive sleep apnea syndrome Obesity/hypoventilation syndrome Morbid obesity with BMI of 51.8 Chronic pain syndrome, patient has a chronic pain pump. In the left lower quadrant. History of DVT History of factor V deficiency/hypercoagulable state Hypertension with hypertensive nephropathy/nephrosclerosis. Chronic back pain Anemia of chronic disease History of diverticulosis Recommendation: Continue ventilatory support, however the patient is to be considered for weaning trial today Assessment and status off sedation. Interrupt sedation today. And check weaning trial Continue antibiotics/Zosyn for pseudomonal pneumonia. Continue nutritional support/enteral feeding patient is on vital HPI at 20 mL per hour. Enteral feeding will be placed on hold and the patient is extubated or to be extubated Continue wound care of lower extremities. Continue GI and DVT prophylaxis We'll keep in the ICU even if extubated today. Remains critically ill. Updated his family at his condition at bedside We will continue to follow. Critical care time is over 30 minutes Time with Patient: Greater than 30
[2022-08-19] MEDS: HYDROcodone/APAP 10-325MG 1 EACH TAB PO PRN ×2 (14:17→20:20)
[2022-08-19 17:29] LABS: Glucose,Whole Blood 274 mg/dL (70-110)
[2022-08-19] MEDS: FAMOTIDINE 20 MG TAB PO SCH (20:11)
[2022-08-19] MEDS: LATANOPROST 0.005% OPHTH DROPS 2.5 ML BTL BOTH EYES SCH (20:11)
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
[2022-08-19 23:44] LABS: Glucose,Whole Blood 233 mg/dL (70-110)
[2022-08-20 04:12] LABS: Basophils % (A) 0 %; Eosinophils # (A) 0.2 k/uL (0-0.7); Eosinophils % (A) 4 %; HCT 23.8 % (39.0-53.0); HGB 7.9 gm/dL (13.0-17.5); Lymphocytes # (A) 0.6 k/uL (1.0-4.8); Lymphocytes % (A) 12 %; MCH 30.1 pg (25.0-35.0); MCHC 33.1 g/dL (31.0-37.0); MCV 90.8 fL (80.0-100.0); Mean Platelet Volume 7.9; Monocytes # (A) 0.3 k/uL (0-1.0); Monocytes % (A) 6 %; Neutrophils # (A) 4.1 k/uL (1.3-7.7); Neutrophils % (A) 76 %; Platelet Count 228 k/uL (150-450); Poikilocytosis Slight; RBC 2.62 m/uL (4.30-5.90); RDW 14.3 % (11.5-15.5); WBC 5.4 k/uL (3.8-10.6)
[2022-08-20 04:40] LABS: Potassium 3.3 mmol/L (3.5-5.1)
[2022-08-20] MEDS ORDERED: POTASSIUM CHLORIDE ER 20 MEQ TAB.ER PO STA ×2 (04:50→11:37)
[2022-08-20 05:17] LABS: Glucose,Whole Blood 196 mg/dL (70-110)
[2022-08-20] MEDS: INSULIN ASPART (NovoLOG) 100 UNIT/ML VIAL SQ SCH ×4 (05:17→23:30)
[2022-08-20] MEDS: IPRATROPIUM-ALBUTEROL 3 ML NEB INHALATION SCH ×4 (08:10→22:27)
--- NOTE | 2022-08-20 08:12 | XR ---
EXAMINATION TYPE: XR chest 1V portable DATE OF EXAM: 08/20/2022 HISTORY: Shortness of breath. COMPARISON: 08/19/2022 TECHNIQUE: Single view of the chest is submitted. FINDINGS: Endotracheal tube and NG tube have been removed. Left IJ central venous line unchanged in position. C oarse infiltrates seen throughout both lung garcia. Lung volumes continue to be diminished. The heart is stable. Hilar and mediastinal structures are within normal limits. Degenerative changes are seen of the dorsal spine. IMPRESSION: 1. Coarse infiltrates seen throughout both lung garcia. Lung volumes continue to be diminished.
[2022-08-20] MEDS: HYDROcodone/APAP 10-325MG 1 EACH TAB PO PRN ×3 (08:30→20:25)
[2022-08-20] MEDS: TAMSULOSIN 0.4 MG CAP.ER.24H PO SCH (08:32)
[2022-08-20] MEDS: DICYCLOMINE 20 MG TAB PO PRN (08:32)
[2022-08-20] MEDS: APIXABAN 2.5 MG TABLET PO SCH ×2 (08:32→20:26)
[2022-08-20] MEDS: SIMETHICONE 80 MG CHEWABLE PO SCH ×4 (08:32→20:26)
[2022-08-20] MEDS: ATORVASTATIN 80 MG TAB PO SCH (08:32)
[2022-08-20] MEDS: DULoxetine HCL 30 MG CAPSULE.DR PO SCH (08:33)
[2022-08-20] MEDS: carBAMazepine 100 MG TAB.ER.12H PO SCH (08:33)
[2022-08-20] MEDS: PSYLLIUM HUSK 100% 6 GM PACKET PO SCH (08:33)
[2022-08-20] MEDS: PIPERACILLIN-TAZOBACTAM 3.375 GM in SODIUM CHLORIDE 0.9% 100 ML IVPB SCH ×3 (08:33→23:30)
[2022-08-20] MEDS: LACTULOSE 20 GM/30 ML CUP PO SCH ×2 (08:33→20:26)
[2022-08-20] MEDS: COLLAGENASE 250 UNIT/GM OINTMENT 30 GM TUBE TOPICAL SCH (08:34)
[2022-08-20] MEDS: NON FORMULARY DRUG (Lubiprostone [Amitiza] 24 MCG Capsule) PO SCH ×2 (08:40→20:27)
--- NOTE | 2022-08-20 10:37 | P.PN ---
Subjective Patient is seen for follow-up for hyperkalemia and acute kidney injury. Patient received one hemodialysis treatment for persistent hyperkalemia on 08/14/2022. Since then urine output has improved and renal function has improved as well. Patient was extubated. He is awake and following commands. Levo fed is off Potassium 3.3 today, status post replacement Serum creatinine down to 1.7 Objective - Vital Signs Vital signs: Vital Signs Temp 97.0 F L 08/20/22 00:00 Pulse 65 08/20/22 08:20 Resp 18 08/20/22 08:00 BP 158/70 08/20/22 08:00 Pulse Ox 99 08/20/22 08:00 FiO2 30 08/20/22 04:17 Intake & Output 08/19/22 08/20/22 08/20/22 18:59 06:59 18:59 Intake Total 635.017 299 Output Total 1755 1110 275 Balance -1119.983 -811 -275 Weight 137.8 kg 137.9 kg Intake: IV 276 299 0.9 240 260 arterial line 36 39 Intake, IV Titration 189.017 Amount Norepinephrine 4 mg In 36.142 Sodium Chloride 0.9% 250 ml @ 0.03 MCG/KG/MIN 15. 657 mls/hr IV .[id number] [facility] Rx#:[id number] propofoL 1,000 mg In 152.875 Empty Bag 1 bag @ 15 MCG/ KG/MIN 12.329 mls/hr IV . Q8H7M [facility] Rx#:[id number] Tube Feeding 140 Other 30 Output: Urine 1755 1110 275 Other: Voiding Method Indwelling Catheter Indwelling Catheter Indwelling Catheter # Bowel Movements 1 ABP, PAP, CO, CI - Last Documented Arterial Blood Pressure 143/59 - Exam Patient is extubated. He is awake comfortable with no acute distress. Alert Examination of the heart S1 and S2 Examination lungs bilateral breath sounds are heard Abdomen is obese soft Examination of lower extremities shows chronic skin changes with significant edema bilaterally which seems to have improved CORE STRIPPER exam unremarkable - Labs CBC & Chem 7: 08/20/22 03:45 08/20/22 03:45 Labs: Abnormal Lab Results - Last 24 Hours (Table) 08/19/22 08/19/22 08/19/22 Range/Units 11:25 11:31 17:27 RBC (4.30-5.90) m/uL Hgb (13.0-17.5) gm/dL Hct (39.0-53.0) % Lymphocytes # (1.0-4.8) k/uL ABG pH 7.47 H (7.35-7.45) ABG pO2 167 H (83-108) mmHg ABG HCO3 32 H (21-25) mmol/L ABG Total CO2 33 H (19-24) mmol/L ABG O2 Saturation 100.0 H (94-97) % Potassium (3.5-5.1) mmol/L Carbon Dioxide (22-30) mmol/L BUN (9-20) mg/dL Creatinine (0.66-1.25) mg/dL Glucose (74-99) mg/dL POC Glucose (mg/dL) 264 H 274 H (70-110) mg/dL Calcium (8.4-10.2) mg/dL 08/19/22 08/20/22 08/20/22 Range/Units 23:42 03:45 03:45 RBC 2.62 L (4.30-5.90) m/uL Hgb 7.9 L (13.0-17.5) gm/dL Hct 23.8 L (39.0-53.0) % Lymphocytes # 0.6 L (1.0-4.8) k/uL ABG pH (7.35-7.45) ABG pO2 (83-108) mmHg ABG HCO3 (21-25) mmol/L ABG Total CO2 (19-24) mmol/L ABG O2 Saturation (94-97) % Potassium 3.3 L (3.5-5.1) mmol/L Carbon Dioxide 32 H (22-30) mmol/L BUN 24 H (9-20) mg/dL Creatinine 1.70 H (0.66-1.25) mg/dL Glucose 182 H (74-99) mg/dL POC Glucose (mg/dL) 233 H (70-110) mg/dL Calcium 8.0 L (8.4-10.2) mg/dL 08/20/22 Range/Units 05:14 RBC (4.30-5.90) m/uL Hgb (13.0-17.5) gm/dL Hct (39.0-53.0) % Lymphocytes # (1.0-4.8) k/uL ABG pH (7.35-7.45) ABG pO2 (83-108) mmHg ABG HCO3 (21-25) mmol/L ABG Total CO2 (19-24) mmol/L ABG O2 Saturation (94-97) % Potassium (3.5-5.1) mmol/L Carbon Dioxide (22-30) mmol/L BUN (9-20) mg/dL Creatinine (0.66-1.25) mg/dL Glucose (74-99) mg/dL POC Glucose (mg/dL) 196 H (70-110) mg/dL Calcium (8.4-10.2) mg/dL Microbiology - Last 24 Hours (Table) 08/16/22 09:50 Blood Culture - Preliminary Blood 08/17/22 01:00 Gram Stain - Preliminary Leg - Left Wound Culture - Preliminary Gram Neg Bacilli 08/13/22 13:40 Blood Culture - Final Blood 08/13/22 14:00 Blood Culture - Final Blood Assessment and Plan Assessment: 1. Acute kidney injury secondary to ATN secondary to shock, likely septic. Also component of contrast-induced acute kidney injury. Oliguric. Creatinine 7.27 on admission. Creatinine in May 2022 as low as 0.87. No hydronephrosis noted on imaging. Status post hemodialysis 08/14/2022 due to persistent hyperkalemia. Creatinine 1.7 today. Renal function improved significantly with increased urine output as well. Dialysis catheter has been discontinued. 2. Hyperkalemia secondary to acute kidney injury, spironolactone, lisinopril and potassium supplementation. Improved. 3. Lower extremity wounds on IV antibiotics. Also has wound VAC. 4. Diabetes mellitus. 5. Metabolic acidosis secondary to acute kidney injury, metformin. Improved. 6. Shock, likely septic. Off of pressors Plan: Continue off of IV fluids Replace potassium Continue to avoid nephrotoxic agents
--- NOTE | 2022-08-20 11:54 | P.PN ---
Subjective Progress Note Date: 08/20/22 Principal diagnosis: Acute hypoxic respiratory failure secondary to fluid overload/interstitial edema secondary to acute on chronic renal failure and superimposed pseudomonas aerug inosa pneumonia. This is a morbidly obese 53-year-old male patient who [facility]. The patient was the hospital and was discharged to the prison on 08/07/2022. He has multiple medical problems and comorbidities. He is morbidly obese with a body mass index of 49. He is diabetic and his blood sugars have been poorly controlled and he has a diabetic ones in his left lower extremity jacob and this is a deep wound reaching his bone. This has been evaluated by Dr. Coleman and the patient was given wound care treatment. He does have charcoal joints related to his diabetes mellitus. He does have a component of chronic kidney disease, stage III related to hypertensive nephrosclerosis. 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 Note that his previous creatinine has been in the range of 1.48 prior to him being discharged. Yesterday, the patient presented to the emergency department because of difficulties with ones. He initially denies having any other complaints. No reported fever or chills. The patient apparently told the emergency physician that he was unsure exactly why he was sent into the emergency. I'm going to check the prison records accordingly. Meanwhile, while in the emergency, the patient was found to be in acute kidney injury. He had significant abnormalities in his blood work and the patient had a initial the 119, creatinine of 7.2, sodium of 1:30, potassium of 7.3, bicarb of 20, lactic acid level of 3.2, troponin of 0.02, and his white cell count was at 9.2 with a hemoglobin 10.7 and a platelet count of 247. This was consistent with an acute kidney injury. At that point, nephrology was consulted. Arrangements were made for this patient to undergo dialysis as the patient was offered treatment for his hyperkalemia and he did not respond. In fact his repeat potassium was at 7.6. At that time, he was decided to dialyze this patient. Dialysis catheter was inserted in the right femoral vein. The patient while on dialysis was noted to be progressively more apneic. The blood gas was done and he was found to be in acute on top of chronic respiratory acidosis in addition to a component of metabolic acidosis. PH was at 7.16 with a pCO2 of 60 and pO2 of 84. It was decided to proceed with intubation mechanical ventilation to maintain his breathing. As such, the patient was intubated and he was sent to the intensive care unit. This morning, the patient remains intubated. He is on propofol running at 40 mcg/kg/m. He is calm and comfortable. He is on mechanical ventilator assist control mode at the rate of 20, tidal volume 600, FiO2 of 100% with a PEEP of 5. His peak airway pressure is 35. Follow-up blood gases showed a pH of 7.22 with a pCO2 of 51 and pO2 of 66. I reviewed the series of chest x-rays including the one that was done today. There is evidence of interstitial edema along with cardiomegaly. The orotracheal tube is in good location for now. The follow-up morning blood gases showed a pH of 7.22 with a pCO2 of 51 and pO2 of 66 and this was on FiO2 of 100%. At the same time, the patient became hypotensive. He is currently on norepinephrine running at 0.06 mcg/kg/m. IV fluids currently at normal saline at the rate of 75 mL an hour. He does not produce any urine output for the time being. He is afebrile for now. The findings on the case. The patient is receiving a full session of hemodialysis today. In fact, he is currently undergoing hemodialysis. Blood sugars from this morning was at 125, On today's evaluation of 08/15/2022, the patient is intubated on mechanical vent ilator. He remains sedated on propofol running at 50 mcg/kg/m. His calm and comfortable and very much interested mechanical ventilator. He remains on assist-control mode at a rate of 26, tidal volume of 450, FiO2 of 70% with a PEEP of 8. Chest x-ray still showing interstitial edema consistent with CHF and volume overload. The tube is in a good location. The patient was given a triple-lumen catheter in his left IJ yesterday. Blood gas shows a pH of 7.36 with a pCO2 of 45 and pO2 of 76 and this was on FiO2 of 70%. No significant orotracheal secretions. The patient has mild leukocytosis with a white cell count of 12.4. He is on IV Zosyn as an empiric antibiotic coverage for now. Meanwhile, he underwent hemodialysis yesterday. His potassium level has dropped down to 4.8. On today's blood work, he has a BUN of 56 with a creatinine of 4.5. He has a Castillo catheter in place and the urine output is in order of 200 mL an hour as such his urine output has picked up and improves. The patient is being seen by nephrology. I'm not sure if we're proceeding with another session of hemodialysis today as the patient's urine output has improved. Further discussion with the with nephrology. Meanwhile, hemodynamically, he remains on low-dose pressors and norepinephrine is running at 0.09 mcg/kg/m. He remains on IV fluids at KVO. A wound VAC was applied to his left lower extremity. Sputum cultures and obtain a blood cultures were obtained and the results of those are still pending. He has not started enteral feeding yet. He is on NovoLog sliding scale coverage. He is also on long-term and coagulation with Eliquis at a dose of 2.5 mg twice a day. 08/16/2022, the patient remains intubated on a mechanical ventilator. He remains on propofol running at 50 mcg/kg/m his adequately sedated. He started spiking temperature as of this morning and a T-max was 101.3. As such, further fever workup is being done. Meanwhile, there is a concern that the patient may have a pneumonia on top of his CHF and fluid overload. Sputum is positive for Pseudomonas species and the patient is currently on IV Zosyn. The chest x-ray still showing interstitial infiltrates bilaterally, no consolidation. Blood gas from today shows a pH of 7.38 with episodes of 46 and pO2 of 97. As such, his oxygenation is improved compared to yesterday. He remains on the same ventilator settings with a assist-control mode at the rate of 26, tidal volume of 450, FiO2 of 70% and a PEEP of 8. Peak airway pressure is 40. He is not going to get dialyzed today as the patient is producing copious amount of urine output. I was told that his urine output at times is at high as 500 mL an hour. He is diuresing adequately. No diuretics for now. His BUN is a 50 with a creatinine of 4 and there is interval improvement in his kidney function. Sodium is at 138. The WBC count is at 8.8 with a hemoglobin 8.3 and a platelet count of 232. He is receiving enteral feeding for nutritional support. He was started on Nepro at the rate of 10 mL an hour. He remains on IV Zosyn. He is on low-dose norepinephrine at 0.05 mcg/kg/m. His cardiac rhythm is sinus. He remains on long-term and coagulation with Eliquis. He has a wound VAC applied to his left lower extremity as the patient has a deep wound in the anterior aspect of the left leg without any surrounding cellulitis. THE WOUND VAC IS IN ORDER OF 0 ML OVER THE PAST 24 HOURS. Reevaluated today on 08/17/2022, patient remains in the ICU, intubated and mechanically ventilated. Patient is on assist control rate of 26 tidal volume 450 FiO2 50% and PEEP of 8. Patient has been on mechanical ventilation since 08/13/2022, ABG showed a pO2 of 84 pCO2 45 pH of 7.45. Patient is still on relatively low dose of norepinephrine at 0.04 mcg/kg/m propofol at 50 by grams per kilo per minute IV fluid is at KVO. Urine output seems to be improving on its own without any intervention. Patient did have dialysis at one point. Continues to have a hemodialysis catheter in the right groin. Continues to have wound VAC applied to left lower extremity. And being followed closely by infectious disease and by podiatry for his lower extremity cellulitis. Chest x- ray continues to show bilateral interstitial edema/infiltrates. BNP level remains elevated at 6710. WBC count is 7.3 hemoglobin 8.2 basic metabolic profile is relatively normal renal functioning is improving creatinine is down to 2.96 today compared to 4.03 yesterday patient remains on Zosyn, sputum cultures have been positive for pseudomonas aeruginosa Reevaluated today on 08/18/2022, patient remains in the ICU, intubated and mechanically ventilated. He is on assist control rate of 26 tidal volume 450 FiO2 50% and PEEP of 8. ABG showed a pO2 of 84 pCO2 45 pH of 7.45. Hence his FiO2 was cut down to 45% and The PEEP at 8. Patient is requiring low-dose norepinephrine at 0.03 mcg/kg/m his IV fluids at KVO and he is diuresing on his own quite well. His chest x-ray is showing improvement in his interstitial edema. He is on propofol at 50 mcg/kg/m. Patient is also receiving vital HPI 20 mL per hour. WBC count is 6 hemoglobin 7.9 and hematocrit 24.1 his electrolytes are normal bicarb is 31, BUN is improving down to 33 and creatinine is steadily improving down to 2.34. Patient remains in negative balance of over 5 L in the last 3 days. Again his chest x-ray is steadily improving and his oxygenation is also improving. Reevaluated today on 08/19/2022, patient remains in the ICU, intubated and mechanically ventilated. Patient remains on assist control rate of 26 tidal volume 450 FiO2 45% and PEEP of 8 ABG showed a pO2 of 68 pCO2 46 pH of 7.44. Patient remains on propofol at 45 mcg/kg/m, remains on Zosyn, his off norepinephrine, and he continues to diurese well on his own without any intervention. Remains on vital HPI 35 mL per hour. Chest x-ray continues to show steady improvement in his interstitial edema. Patient remains in negative fluid balance over the last few days. Sitting the steady improvement, I went ahead and recommended holding sedation, I also recommended weaning parameters, and a trial of weaning if weaning parameters are excellent with a pressure support of 10 and CPAP. Shortly after, the ABG came back showing a pO2 of 167 pCO2 43 pH of 7.47, hence while I was in the ICU, I recommended extubation of the patient. Patient was extubated to BiPAP, he normally has BiPAP at home with 18/14/40% FiO2. Labs today showed steady renal improvement his BUN is down to 30 creatinine 1.95, Electrolytesenc are normal. Reevaluated today on 08/20/2022, patient remains in the ICU, he was extubated yesterday, tolerated the extubation well, presently on 4 L nasal cannula, resting in bed, does not seem to be in any distress. Patient used his BiPAP last night with IPAP of 18 and EPAP 14 FiO2 30%. Continues to make good urine on his own and he remains in negative balance. He has at least 100 mL of urine output per hour. His hemodialysis catheter has been removed. His renal functioning is steadily improving. Chest x-ray continues to show evidence of interstitial edema. His pulmonary status remains marginal at best. CBC is ba sically unremarkable except for hemoglobin of 7.9 electrolytes are normal slightly low potassium being addressed as per protocol. BUN is 24 creatinine 1.70 Objective - Vital Signs Vital signs: Vital Signs Temp 97.0 F L 08/20/22 00:00 Pulse 72 08/20/22 11:19 Resp 22 08/20/22 11:00 BP 140/67 08/20/22 11:00 Pulse Ox 98 08/20/22 11:00 FiO2 30 08/20/22 04:17 Intake & Output 08/19/22 08/20/22 08/20/22 18:59 06:59 18:59 Intake Total 635.017 299 Output Total 1755 1110 505 Balance -1119.983 -811 -505 Weight 137.8 kg 137.9 kg Intake: IV 276 299 0.9 240 260 arterial line 36 39 Intake, IV Titration 189.017 Amount Norepinephrine 4 mg In 36.142 Sodium Chloride 0.9% 250 ml @ 0.03 MCG/KG/MIN 15. 657 mls/hr IV .[id number] ROBERTA Rx#:[id number] propofoL 1,000 mg In 152.875 Empty Bag 1 bag @ 15 MCG/ KG/MIN 12.329 mls/hr IV . Q8H7M ROBERTA Rx#:[id number] Tube Feeding 140 Other 30 Output: Urine 1755 1110 505 Other: Voiding Method Indwelling Catheter Indwelling Catheter Indwelling Catheter # Bowel Movements 1 ABP, PAP, CO, CI - Last Documented Arterial Blood Pressure 134/58 - Exam Physical Exam: Revealed a 52-year-old white male, on nasal cannula, not in any distress. He is now on 4 L nasal cannula. Head: Atraumatic, normocephalic. HEENT: Short obese neck noted. [Neck is supple.] [No neck masses.] [No thyromegaly.] [No JVD.] Chest: Fine crackles persist at the bases Cardiac Exam: Distant S1 and S2, no S3 gallop, no murmur Abdomen: [Morbidly obese, Soft, nontender, no megaly, no rebound, no guarding, normal bowel sounds.] Extremities: [Chronic edema and cellulitis noted in both lower extremities. Neurological Exam: Alert and oriented 3 focal neurologic deficits. Psychiatric: Normal mood, affect and normal mental status examination Skin: As noted above under extremities - Labs CBC & Chem 7: 08/20/22 03:45 08/20/22 09:35 Labs: Abnormal Lab Results - Last 24 Hours (Table) 08/19/22 08/19/22 08/20/22 Range/Units 17:27 23:42 03:45 RBC 2.62 L (4.30-5.90) m/uL Hgb 7.9 L (13.0-17.5) gm/dL Hct 23.8 L (39.0-53.0) % Lymphocytes # 0.6 L (1.0-4.8) k/uL Potassium (3.5-5.1) mmol/L Carbon Dioxide (22-30) mmol/L BUN (9-20) mg/dL Creatinine (0.66-1.25) mg/dL Glucose (74-99) mg/dL POC Glucose (mg/dL) 274 H 233 H (70-110) mg/dL Calcium (8.4-10.2) mg/dL 08/20/22 08/20/22 08/20/22 Range/Units 03:45 05:14 09:35 RBC (4.30-5.90) m/uL Hgb (13.0-17.5) gm/dL Hct (39.0-53.0) % Lymphocytes # (1.0-4.8) k/uL Potassium 3.3 L 2.3 L* (3.5-5.1) mmol/L Carbon Dioxide 32 H (22-30) mmol/L BUN 24 H (9-20) mg/dL Creatinine 1.70 H (0.66-1.25) mg/dL Glucose 182 H (74-99) mg/dL POC Glucose (mg/dL) 196 H (70-110) mg/dL Calcium 8.0 L (8.4-10.2) mg/dL Microbiology - Last 24 Hours (Table) 08/17/22 01:00 Gram Stain - Preliminary Leg - Left Wound Culture - Preliminary Enterobacter cloacae 08/16/22 09:50 Blood Culture - Preliminary Blood 08/13/22 13:40 Blood Culture - Final Blood 08/13/22 14:00 Blood Culture - Final Blood Assessment and Plan Assessment: Impression: Acute hypoxic and hypercapnic respiratory failure, multifactorial. Patient was extubated on 08/19/2022. Acute pseudomonal pneumonia, remains on antibiotics. Acute on chronic diastolic congestive heart failure chest x-ray continues to show mild interstitial edema Acute fluid overload secondary to acute renal failure Acute on chronic kidney disease with diabetic nephropathy and hypertensive nephropathy. Chronic diabetic lower extremities ulcers with possible osteomyelitis/left lower extremity. Hypotension secondary to sepsis/septic shock. Still requiring norepinephrine at a low dose. Severe obstructive sleep apnea syndrome, on home BiPAP /% Obesity/hypoventilation syndrome Morbid obesity with BMI of 51.8 Chronic pain syndrome, patient has a chronic pain pump. In the left lower quadrant. History of DVT History of factor V deficiency/hypercoagulable state Hypertension with hypertensive nephropathy/nephrosclerosis. Chronic back pain Anemia of chronic disease History of diverticulosis Recommendation: Patient was extubated on 08/19 and he tolerated the extubation well so far. Avoid narcotics and sedatives Continue Zosyn Advanced diet as tolerated Discontinue hemodialysis catheter Continue wound care of lower extremities. Continue GI and DVT prophylaxis Continue to monitor in the ICU for the next 24 hours Remains marginal at best. We will continue to follow. Time with Patient: Less than 30
[2022-08-20] MEDS: POTASSIUM CHLORIDE ER 20 MEQ TAB.ER PO SCH ×2 (11:59→13:59)
[2022-08-20 12:51] LABS: Glucose,Whole Blood 278 mg/dL (70-110)
[2022-08-20] MEDS: ACETAMINOPHEN TAB 325 MG TAB PO PRN (13:59)
--- NOTE | 2022-08-20 14:02 | P.PN ---
Subjective Progress Note Date: 08/20/22 Principal diagnosis: Pneumonia and left leg wound Patient is a 52-year old male with a past medical history significant for diabetes mellitus hypertension hyperlipidemia DVT, with a recent admission to [facility] from 07/31 to 08/07/2022 apparently the patient did have a wound to the left lower extremity to the anterior jacob and a wound on the plantar aspect of his left foot that was evaluated and treated by Dr. Coleman, with a wound VAC with a readmission to the hospital with acute respiratory failure requiring intubation did have a fever and concerning for pneumonia sputum is growing Pseudomonas and patient also have acute renal failure requiring dialysis. Left leg wound VAC was discontinued on 08/18/2019 as he did have significant slough tissue at the base of the wound per the wound care nurse, patient was extubated on 08/19/2022 On today's evaluation had that is 08/20/2022, the patient is afebrile today , patient is off pressor support per the nursing staff, the patient i is breathing comfortable on nasal cannula oxygen denies any chest pain no worsening cough or sputum production no abdominal, or pain to the left lower extremity Objective - Vital Signs Vital signs: Vital Signs Temp 97.0 F L 08/20/22 00:00 Pulse 72 08/20/22 11:19 Resp 22 08/20/22 11:00 BP 140/67 08/20/22 11:00 Pulse Ox 98 08/20/22 11:00 FiO2 30 08/20/22 04:17 Intake & Output 08/19/22 08/20/22 08/20/22 18:59 06:59 18:59 Intake Total 635.017 299 Output Total 1755 1110 505 Balance -1119.983 -811 -505 Weight 137.8 kg 137.9 kg Intake: IV 276 299 0.9 240 260 arterial line 36 39 Intake, IV Titration 189.017 Amount Norepinephrine 4 mg In 36.142 Sodium Chloride 0.9% 250 ml @ 0.03 MCG/KG/MIN 15. 657 mls/hr IV .[id number] ROBERTA Rx#:[id number] propofoL 1,000 mg In 152.875 Empty Bag 1 bag @ 15 MCG/ KG/MIN 12.329 mls/hr IV . Q8H7M ROBERTA Rx#:[id number] Tube Feeding 140 Other 30 Output: Urine 1755 1110 505 Other: Voiding Method Indwelling Catheter Indwelling Catheter Indwelling Catheter # Bowel Movements 1 ABP, PAP, CO, CI - Last Documented Arterial Blood Pressure 134/58 - Exam GENERAL DESCRIPTION: A middle-age male lying in bed in no distress RESPIRATORY SYSTEM: Unlabored breathing , decreased breath sounds at bases HEART: S1 S2 regular rate and rhythm , ABDOMEN: Soft , no tenderness EXTREMITIES: Diffuse swelling to bilateral lower extremity with a wound to the left jacob did have a slough tissue minimal surrounding redness, some drainage on the left posterior leg wound - Labs CBC & Chem 7: 08/20/22 03:45 08/20/22 09:35 Labs: Abnormal Lab Results - Last 24 Hours (Table) 08/19/22 08/19/22 08/20/22 Range/Units 17:27 23:42 03:45 RBC 2.62 L (4.30-5.90) m/uL Hgb 7.9 L (13.0-17.5) gm/dL Hct 23.8 L (39.0-53.0) % Lymphocytes # 0.6 L (1.0-4.8) k/uL Potassium (3.5-5.1) mmol/L Carbon Dioxide (22-30) mmol/L BUN (9-20) mg/dL Creatinine (0.66-1.25) mg/dL Glucose (74-99) mg/dL POC Glucose (mg/dL) 274 H 233 H (70-110) mg/dL Calcium (8.4-10.2) mg/dL 08/20/22 08/20/22 08/20/22 Range/Units 03:45 05:14 09:35 RBC (4.30-5.90) m/uL Hgb (13.0-17.5) gm/dL Hct (39.0-53.0) % Lymphocytes # (1.0-4.8) k/uL Potassium 3.3 L 2.3 L* (3.5-5.1) mmol/L Carbon Dioxide 32 H (22-30) mmol/L BUN 24 H (9-20) mg/dL Creatinine 1.70 H (0.66-1.25) mg/dL Glucose 182 H (74-99) mg/dL POC Glucose (mg/dL) 196 H (70-110) mg/dL Calcium 8.0 L (8.4-10.2) mg/dL 08/20/22 Range/Units 12:49 RBC (4.30-5.90) m/uL Hgb (13.0-17.5) gm/dL Hct (39.0-53.0) % Lymphocytes # (1.0-4.8) k/uL Potassium (3.5-5.1) mmol/L Carbon Dioxide (22-30) mmol/L BUN (9-20) mg/dL Creatinine (0.66-1.25) mg/dL Glucose (74-99) mg/dL POC Glucose (mg/dL) 278 H (70-110) mg/dL Calcium (8.4-10.2) mg/dL Microbiology - Last 24 Hours (Table) 08/17/22 01:00 Gram Stain - Preliminary Leg - Left Wound Culture - Preliminary Enterobacter cloacae 08/16/22 09:50 Blood Culture - Preliminary Blood 08/13/22 13:40 Blood Culture - Final Blood 08/13/22 14:00 Blood Culture - Final Blood Assessment and Plan (1) Pseudomonas pneumonia Current Visit: Yes Status: Acute Code(s): J15.1 - PNEUMONIA DUE TO PSEUDOMONAS SNOMED Code(s): 99500246 (2) Fever Current Visit: No Status: Acute Code(s): R50.9 - FEVER, UNSPECIFIED SNOMED Code(s): 426903615 Plan: 1patient was in the hospital with sepsis in this patient with a fever elevated white count source is likely multifactorial with concern for possible component of pneumonia sputum showing Pseudomonas and the patient also have multiple wound especially left lower extremity and concern for possible secondary cellulitis 2-patient with renal failure requiring dialysis and high risk for nephrotoxicity 3-the patient blood cultures has been negative so far, sputum is growing Pseudomonas, left leg wound culture grew Enterobacter that is sensitive to Zosyn and Cefepime 4-patient local wound care to the left leg with Santyl followed by moist dressing awaiting surgical debridement by his certified nurses aide 5- we will continue with the Zosyn and will monitor his clinical course closely Time with Patient: Less than 30
[2022-08-20] MEDS: NOREPINEPHRINE 4 MG in SODIUM CHLORIDE 0.9% 250 ML IV SCH (15:54)
[2022-08-20 16:37] LABS: Glucose,Whole Blood 262 mg/dL (70-110)
[2022-08-20] MEDS: SODIUM CHLORIDE 0.9% 500 ML 500 ML IV SCH (19:28)
[2022-08-20 20:24] LABS: Glucose,Whole Blood 227 mg/dL (70-110)
[2022-08-20] MEDS: LATANOPROST 0.005% OPHTH DROPS 2.5 ML BTL BOTH EYES SCH (20:26)
[2022-08-20] MEDS: FAMOTIDINE 20 MG TAB PO SCH (20:26)
[2022-08-20 23:18] LABS: Glucose,Whole Blood 262 mg/dL (70-110)
[2022-08-21 05:40] LABS: Glucose,Whole Blood 222 mg/dL (70-110)
[2022-08-21] MEDS: INSULIN ASPART (NovoLOG) 100 UNIT/ML VIAL SQ SCH ×3 (05:46→17:36)
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
[2022-08-21 06:55] LABS: Basophils % (A) 0 %; Eosinophils # (A) 0.4 k/uL (0-0.7); Eosinophils % (A) 7 %; HCT 27.2 % (39.0-53.0); HGB 8.8 gm/dL (13.0-17.5); Lymphocytes # (A) 0.9 k/uL (1.0-4.8); Lymphocytes % (A) 17 %; MCHC 32.4 g/dL (31.0-37.0); MCV 92.6 fL (80.0-100.0); Mean Platelet Volume 7.6; Monocytes # (A) 0.4 k/uL (0-1.0); Monocytes % (A) 7 %; Neutrophils # (A) 3.5 k/uL (1.3-7.7); Neutrophils % (A) 67 %; Platelet Count 250 k/uL (150-450); Poikilocytosis Slight; RBC 2.94 m/uL (4.30-5.90); RDW 14.5 % (11.5-15.5); WBC 5.2 k/uL (3.8-10.6)
[2022-08-21 07:02] LABS: Calcium 8.6 mg/dL (8.4-10.2); Potassium 4.4 mmol/L (3.5-5.1)
[2022-08-21] MEDS: IPRATROPIUM-ALBUTEROL 3 ML NEB INHALATION SCH ×4 (08:04→20:54)
[2022-08-21] MEDS: LACTULOSE 20 GM/30 ML CUP PO SCH ×2 (08:37→22:00)
[2022-08-21] MEDS: APIXABAN 2.5 MG TABLET PO SCH ×2 (08:38→21:59)
[2022-08-21] MEDS: carBAMazepine 100 MG TAB.ER.12H PO SCH (08:38)
[2022-08-21] MEDS: PIPERACILLIN-TAZOBACTAM 3.375 GM in SODIUM CHLORIDE 0.9% 100 ML IVPB SCH ×3 (08:38→23:30)
[2022-08-21] MEDS: SIMETHICONE 80 MG CHEWABLE PO SCH ×4 (08:38→22:18)
[2022-08-21] MEDS: TAMSULOSIN 0.4 MG CAP.ER.24H PO SCH (08:38)
[2022-08-21] MEDS: ATORVASTATIN 80 MG TAB PO SCH (08:38)
[2022-08-21] MEDS: DULoxetine HCL 30 MG CAPSULE.DR PO SCH (08:38)
[2022-08-21] MEDS: NON FORMULARY DRUG (Lubiprostone [Amitiza] 24 MCG Capsule) PO SCH ×2 (08:58→21:57)
--- NOTE | 2022-08-21 10:27 | P.PN ---
Subjective Patient is seen for follow-up for hyperkalemia and acute kidney injury. Patient received one hemodialysis treatment for persistent hyperkalemia on 08/14/2022. Since then urine output has improved and renal function has improved as well. Patient was extubated. He is awake and following commands. Levo fed is off Good urine output. Serum creatinine down to 1.5 Objective - Vital Signs Vital signs: Vital Signs Temp 98.0 F 08/21/22 04:00 Pulse 87 08/21/22 09:00 Resp 16 08/21/22 09:00 BP 121/66 08/21/22 09:00 Pulse Ox 91 L 08/21/22 09:00 FiO2 30 08/21/22 04:29 Intake & Output 08/20/22 08/21/22 08/21/22 18:59 06:59 18:59 Output Total 1175 880 Balance -1175 -880 Weight 133.6 kg 133.6 kg Output: Urine 1175 880 Other: Voiding Method Indwelling Catheter Indwelling Catheter Indwelling Catheter ABP, PAP, CO, CI - Last Documented Arterial Blood Pressure 150/68 - Exam Patient is extubated. He is awake comfortable with no acute distress. Alert Examination of the heart S1 and S2 Examination lungs bilateral breath sounds are heard Abdomen is obese soft Examination of lower extremities shows chronic skin changes with significant edema bilaterally which seems to have improved [employer] exam unremarkable - Labs CBC & Chem 7: 08/21/22 06:04 08/21/22 06:04 Labs: Abnormal Lab Results - Last 24 Hours (Table) 08/20/22 08/20/22 08/20/22 Range/Units 09:35 12:49 16:35 RBC (4.30-5.90) m/uL Hgb (13.0-17.5) gm/dL Hct (39.0-53.0) % Lymphocytes # (1.0-4.8) k/uL Potassium 2.3 L* (3.5-5.1) mmol/L BUN (9-20) mg/dL Creatinine (0.66-1.25) mg/dL Glucose (74-99) mg/dL POC Glucose (mg/dL) 278 H 262 H (70-110) mg/dL 08/20/22 08/20/22 08/21/22 Range/Units 20:23 23:16 05:39 RBC (4.30-5.90) m/uL Hgb (13.0-17.5) gm/dL Hct (39.0-53.0) % Lymphocytes # (1.0-4.8) k/uL Potassium (3.5-5.1) mmol/L BUN (9-20) mg/dL Creatinine (0.66-1.25) mg/dL Glucose (74-99) mg/dL POC Glucose (mg/dL) 227 H 262 H 222 H (70-110) mg/dL 08/21/22 08/21/22 Range/Units 06:04 06:04 RBC 2.94 L (4.30-5.90) m/uL Hgb 8.8 L (13.0-17.5) gm/dL Hct 27.2 L (39.0-53.0) % Lymphocytes # 0.9 L (1.0-4.8) k/uL Potassium (3.5-5.1) mmol/L BUN 21 H (9-20) mg/dL Creatinine 1.51 H (0.66-1.25) mg/dL Glucose 207 H (74-99) mg/dL POC Glucose (mg/dL) (70-110) mg/dL Microbiology - Last 24 Hours (Table) 08/16/22 09:50 Blood Culture - Preliminary Blood 08/17/22 01:00 Gram Stain - Final Leg - Left Wound Culture - Final Enterobacter cloacae Enterococcus faecalis VRE Assessment and Plan Assessment: 1. Acute kidney injury secondary to ATN secondary to shock, likely septic. Also component of contrast-induced acute kidney injury. Oliguric. Creatinine 7.27 on admission. Creatinine in May 2022 as low as 0.87. No hydronephrosis noted on imaging. Status post hemodialysis 08/14/2022 due to persistent hyperkalemia. Creatinine 1.5 today. Renal function improved significantly with increased urine output as well. Dialysis catheter has been discontinued. 2. Hyperkalemia secondary to acute kidney injury, spironolactone, lisinopril and potassium supplementation. Improved. 3. Lower extremity wounds on IV antibiotics. Also has wound VAC. 4. Diabetes mellitus. 5. Metabolic acidosis secondary to acute kidney injury, metformin. Improved. 6. Shock, likely septic. Off of pressors Plan: Continue off of IV fluids Continue to avoid nephrotoxic agents
--- NOTE | 2022-08-21 11:34 | P.PN ---
Subjective Progress Note Date: 08/21/22 Principal diagnosis: Acute hypoxic respiratory failure secondary to fluid overload/interstitial edema secondary to acute on chronic renal failure and superimposed pseudomonas aerug inosa pneumonia. This is a morbidly obese 53-year-old male patient who arrived to us from the detention. The patient was the hospital and was discharged to the detention on 08/07/2022. He has multiple medical problems and comorbidities. He is morbidly obese with a body mass index of 49. He is diabetic and his blood sugars have been poorly controlled and he has a diabetic ones in his left lower extremity jacob and this is a deep wound reaching his bone. This has been evaluated by Dr. Coleman and the patient was given wound care treatment. He does have charcoal joints related to his diabetes mellitus. He does have a component of chronic kidney disease, stage III related to hypertensive nephrosclerosis. 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 Note that his previous creatinine has been in the range of 1.48 prior to him being discharged. Yesterday, the patient presented to the emergency department because of difficulties with ones. He initially denies having any other complaints. No reported fever or chills. The patient apparently told the emergency physician that he was unsure exactly why he was sent into the emergency. I'm going to check the detention records accordingly. Meanwhile, while in the emergency, the patient was found to be in acute kidney injury. He had significant abnormalities in his blood work and the patient had a initial the 119, creatinine of 7.2, sodium of 1:30, potassium of 7.3, bicarb of 20, lactic acid level of 3.2, troponin of 0.02, and his white cell count was at 9.2 with a hemoglobin 10.7 and a platelet count of 247. This was consistent with an acute kidney injury. At that point, nephrology was consulted. Arrangements were made for this patient to undergo dialysis as the patient was offered treatment for his hyperkalemia and he did not respond. In fact his repeat potassium was at 7.6. At that time, he was decided to dialyze this patient. Dialysis catheter was inserted in the right femoral vein. The patient while on dialysis was noted to be progressively more apneic. The blood gas was done and he was found to be in acute on top of chronic respiratory acidosis in addition to a component of metabolic acidosis. PH was at 7.16 with a pCO2 of 60 and pO2 of 84. It was decided to proceed with intubation mechanical ventilation to maintain his breathing. As such, the patient was intubated and he was sent to the intensive care unit. This morning, the patient remains intubated. He is on propofol running at 40 mcg/kg/m. He is calm and comfortable. He is on mechanical ventilator assist control mode at the rate of 20, tidal volume 600, FiO2 of 100% with a PEEP of 5. His peak airway pressure is 35. Follow-up blood gases showed a pH of 7.22 with a pCO2 of 51 and pO2 of 66. I reviewed the series of chest x-rays including the one that was done today. There is evidence of interstitial edema along with cardiomegaly. The orotracheal tube is in good location for now. The follow-up morning blood gases showed a pH of 7.22 with a pCO2 of 51 and pO2 of 66 and this was on FiO2 of 100%. At the same time, the patient became hypotensive. He is currently on norepinephrine running at 0.06 mcg/kg/m. IV fluids currently at normal saline at the rate of 75 mL an hour. He does not produce any urine output for the time being. He is afebrile for now. The findings on the case. The patient is receiving a full session of hemodialysis today. In fact, he is currently undergoing hemodialysis. Blood sugars from this morning was at 125, On today's evaluation of 08/15/2022, the patient is intubated on mechanical vent ilator. He remains sedated on propofol running at 50 mcg/kg/m. His calm and comfortable and very much interested mechanical ventilator. He remains on assist-control mode at a rate of 26, tidal volume of 450, FiO2 of 70% with a PEEP of 8. Chest x-ray still showing interstitial edema consistent with CHF and volume overload. The tube is in a good location. The patient was given a triple-lumen catheter in his left IJ yesterday. Blood gas shows a pH of 7.36 with a pCO2 of 45 and pO2 of 76 and this was on FiO2 of 70%. No significant orotracheal secretions. The patient has mild leukocytosis with a white cell count of 12.4. He is on IV Zosyn as an empiric antibiotic coverage for now. Meanwhile, he underwent hemodialysis yesterday. His potassium level has dropped down to 4.8. On today's blood work, he has a BUN of 56 with a creatinine of 4.5. He has a Castillo catheter in place and the urine output is in order of 200 mL an hour as such his urine output has picked up and improves. The patient is being seen by nephrology. I'm not sure if we're proceeding with another session of hemodialysis today as the patient's urine output has improved. Further discussion with the with nephrology. Meanwhile, hemodynamically, he remains on low-dose pressors and norepinephrine is running at 0.09 mcg/kg/m. He remains on IV fluids at KVO. A wound VAC was applied to his left lower extremity. Sputum cultures and obtain a blood cultures were obtained and the results of those are still pending. He has not started enteral feeding yet. He is on NovoLog sliding scale coverage. He is also on long-term and coagulation with Eliquis at a dose of 2.5 mg twice a day. 08/16/2022, the patient remains intubated on a mechanical ventilator. He remains on propofol running at 50 mcg/kg/m his adequately sedated. He started spiking temperature as of this morning and a T-max was 101.3. As such, further fever workup is being done. Meanwhile, there is a concern that the patient may have a pneumonia on top of his CHF and fluid overload. Sputum is positive for Pseudomonas species and the patient is currently on IV Zosyn. The chest x-ray still showing interstitial infiltrates bilaterally, no consolidation. Blood gas from today shows a pH of 7.38 with episodes of 46 and pO2 of 97. As such, his oxygenation is improved compared to yesterday. He remains on the same ventilator settings with a assist-control mode at the rate of 26, tidal volume of 450, FiO2 of 70% and a PEEP of 8. Peak airway pressure is 40. He is not going to get dialyzed today as the patient is producing copious amount of urine output. I was told that his urine output at times is at high as 500 mL an hour. He is diuresing adequately. No diuretics for now. His BUN is a 50 with a creatinine of 4 and there is interval improvement in his kidney function. Sodium is at 138. The WBC count is at 8.8 with a hemoglobin 8.3 and a platelet count of 232. He is receiving enteral feeding for nutritional support. He was started on Nepro at the rate of 10 mL an hour. He remains on IV Zosyn. He is on low-dose norepinephrine at 0.05 mcg/kg/m. His cardiac rhythm is sinus. He remains on long-term and coagulation with Eliquis. He has a wound VAC applied to his left lower extremity as the patient has a deep wound in the anterior aspect of the left leg without any surrounding cellulitis. THE WOUND VAC IS IN ORDER OF 0 ML OVER THE PAST 24 HOURS. Reevaluated today on 08/17/2022, patient remains in the ICU, intubated and mechanically ventilated. Patient is on assist control rate of 26 tidal volume 450 FiO2 50% and PEEP of 8. Patient has been on mechanical ventilation since 08/13/2022, ABG showed a pO2 of 84 pCO2 45 pH of 7.45. Patient is still on relatively low dose of norepinephrine at 0.04 mcg/kg/m propofol at 50 by grams per kilo per minute IV fluid is at KVO. Urine output seems to be improving on its own without any intervention. Patient did have dialysis at one point. Continues to have a hemodialysis catheter in the right groin. Continues to have wound VAC applied to left lower extremity. And being followed closely by infectious disease and by podiatry for his lower extremity cellulitis. Chest x- ray continues to show bilateral interstitial edema/infiltrates. BNP level remains elevated at 6710. WBC count is 7.3 hemoglobin 8.2 basic metabolic profile is relatively normal renal functioning is improving creatinine is down to 2.96 today compared to 4.03 yesterday patient remains on Zosyn, sputum cultures have been positive for pseudomonas aeruginosa Reevaluated today on 08/18/2022, patient remains in the ICU, intubated and mechanically ventilated. He is on assist control rate of 26 tidal volume 450 FiO2 50% and PEEP of 8. ABG showed a pO2 of 84 pCO2 45 pH of 7.45. Hence his FiO2 was cut down to 45% and The PEEP at 8. Patient is requiring low-dose norepinephrine at 0.03 mcg/kg/m his IV fluids at KVO and he is diuresing on his own quite well. His chest x-ray is showing improvement in his interstitial edema. He is on propofol at 50 mcg/kg/m. Patient is also receiving vital HPI 20 mL per hour. WBC count is 6 hemoglobin 7.9 and hematocrit 24.1 his electrolytes are normal bicarb is 31, BUN is improving down to 33 and creatinine is steadily improving down to 2.34. Patient remains in negative balance of over 5 L in the last 3 days. Again his chest x-ray is steadily improving and his oxygenation is also improving. Reevaluated today on 08/19/2022, patient remains in the ICU, intubated and mechanically ventilated. Patient remains on assist control rate of 26 tidal volume 450 FiO2 45% and PEEP of 8 ABG showed a pO2 of 68 pCO2 46 pH of 7.44. Patient remains on propofol at 45 mcg/kg/m, remains on Zosyn, his off norepinephrine, and he continues to diurese well on his own without any intervention. Remains on vital HPI 35 mL per hour. Chest x-ray continues to show steady improvement in his interstitial edema. Patient remains in negative fluid balance over the last few days. Sitting the steady improvement, I went ahead and recommended holding sedation, I also recommended weaning parameters, and a trial of weaning if weaning parameters are excellent with a pressure support of 10 and CPAP. Shortly after, the ABG came back showing a pO2 of 167 pCO2 43 pH of 7.47, hence while I was in the ICU, I recommended extubation of the patient. Patient was extubated to BiPAP, he normally has BiPAP at home with 18/14/40% FiO2. Labs today showed steady renal improvement his BUN is down to 30 creatinine 1.95, Electrolytesenc are normal. Reevaluated today on 08/20/2022, patient remains in the ICU, he was extubated yesterday, tolerated the extubation well, presently on 4 L nasal cannula, resting in bed, does not seem to be in any distress. Patient used his BiPAP last night with IPAP of 18 and EPAP 14 FiO2 30%. Continues to make good urine on his own and he remains in negative balance. He has at least 100 mL of urine output per hour. His hemodialysis catheter has been removed. His renal functioning is steadily improving. Chest x-ray continues to show evidence of interstitial edema. His pulmonary status remains marginal at best. CBC is ba sically unremarkable except for hemoglobin of 7.9 electrolytes are normal slightly low potassium being addressed as per protocol. BUN is 24 creatinine 1.70 Reevaluated today on 02/20/2023, patient remains in the ICU, however the patient has made a significant improvement in the last 2 days, extubated 2 days ago, presently on nasal cannula at 3 L/m, his hemodialysis catheter has been removed, patient is not requiring any hemodialysis. Renal functioning is steadily improving creatinine is down to 1.51 today. His IV fluids at KVO, patient continues to have BiPAP at bedside uses BiPAP at bedtime. Set at 18/14/50%, nonetheless he is on 3 L nasal cannula at present. Remains on antibiotics for his extensive cellulitis of lower extremities. And the patient is able to cough and suction his own secretions. No chest x-ray was done today, however the patient remains in a negative fluid balance, and diuresing well on his own without using any diuretics. WBC count is 5.2 hemoglobin is 8.8 electrolytes are normal BUN is 21 creatinine 1.51 Objective - Vital Signs Vital signs: Vital Signs Temp 98.0 F 08/21/22 04:00 Pulse 69 08/21/22 11:00 Resp 21 08/21/22 11:00 BP 126/69 08/21/22 11:00 Pulse Ox 95 08/21/22 11:00 FiO2 30 08/21/22 04:29 Intake & Output 08/20/22 08/21/22 08/21/22 18:59 06:59 18:59 Output Total 1175 880 Balance -1175 -880 Weight 133.6 kg 133.6 kg Output: Urine 1175 880 Other: Voiding Method Indwelling Catheter Indwelling Catheter Indwelling Catheter ABP, PAP, CO, CI - Last Documented Arterial Blood Pressure 150/68 - Exam Physical Exam: Revealed a 52-year-old white male, on 3 L nasal cannula, not in any distress. Head: Atraumatic, normocephalic. HEENT: Short obese neck noted. [Neck is supple.] [No neck masses.] [No thyromegaly.] [No JVD.] Chest Minimal crackles at the bases no rhonchi no wheezes Cardiac Exam: Distant S1 and S2, no S3 gallop, no murmur Abdomen: [Morbidly obese, Soft, nontender, no megaly, no rebound, no guarding, normal bowel sounds.] Extremities: [Chronic edema and cellulitis noted in both lower extremities. Neurological Exam: Alert and oriented 3 focal neurologic deficits. Psychiatric: Normal mood, affect and normal mental status examination Skin: As noted above under extremities - Labs CBC & Chem 7: 08/21/22 06:04 08/21/22 06:04 Labs: Abnormal Lab Results - Last 24 Hours (Table) 08/20/22 08/20/22 08/20/22 Range/Units 12:49 16:35 20:23 RBC (4.30-5.90) m/uL Hgb (13.0-17.5) gm/dL Hct (39.0-53.0) % Lymphocytes # (1.0-4.8) k/uL BUN (9-20) mg/dL Creatinine (0.66-1.25) mg/dL Glucose (74-99) mg/dL POC Glucose (mg/dL) 278 H 262 H 227 H (70-110) mg/dL 08/20/22 08/21/22 08/21/22 Range/Units 23:16 05:39 06:04 RBC (4.30-5.90) m/uL Hgb (13.0-17.5) gm/dL Hct (39.0-53.0) % Lymphocytes # (1.0-4.8) k/uL BUN 21 H (9-20) mg/dL Creatinine 1.51 H (0.66-1.25) mg/dL Glucose 207 H (74-99) mg/dL POC Glucose (mg/dL) 262 H 222 H (70-110) mg/dL 08/21/22 Range/Units 06:04 RBC 2.94 L (4.30-5.90) m/uL Hgb 8.8 L (13.0-17.5) gm/dL Hct 27.2 L (39.0-53.0) % Lymphocytes # 0.9 L (1.0-4.8) k/uL BUN (9-20) mg/dL Creatinine (0.66-1.25) mg/dL Glucose (74-99) mg/dL POC Glucose (mg/dL) (70-110) mg/dL Microbiology - Last 24 Hours (Table) 08/16/22 09:50 Blood Culture - Preliminary Blood 08/17/22 01:00 Gram Stain - Final Leg - Left Wound Culture - Final Enterobacter cloacae Enterococcus faecalis VRE Assessment and Plan Assessment: Impression: Acute hypoxic and hypercapnic respiratory failure, multifactorial. Patient was extubated on 08/19/2022. Acute pseudomonal pneumonia, remains on antibiotics. Patient remains on Zosyn Acute on chronic diastolic congestive heart failure chest x-ray continues to show mild interstitial edema Acute fluid overload secondary to acute renal failure Acute on chronic kidney disease with diabetic nephropathy and hypertensive nephropathy. Chronic diabetic lower extremities ulcers with possible osteomyelitis/left lower extremity. Hypotension secondary to sepsis/septic shock. Still requiring norepinephrine at a low dose. Severe obstructive sleep apnea syndrome, on home BiPAP /30% Obesity/hypoventilation syndrome Morbid obesity with BMI of 51.8 Chronic pain syndrome, patient has a chronic pain pump. In the left lower quadrant. History of DVT History of factor V deficiency/hypercoagulable state Hypertension with hypertensive nephropathy/nephrosclerosis. Chronic back pain Anemia of chronic disease History of diverticulosis Recommendation: Patient was extubated on 08/19 , now on nasal cannula at 3 L/m and uses BiPAP at bedtime. Continue Zosyn Advanced diet as tolerated Continue wound care of lower extremities. Continue GI and DVT prophylaxis Transfer to a monitor bed on selective today once a bed is available. Continue incentive spirometry Patient will likely benefit from physical therapy We will continue to follow. Time with Patient: Less than 30
[2022-08-21] MEDS: PSYLLIUM HUSK 100% 6 GM PACKET PO SCH (11:45)
[2022-08-21 11:46] LABS: Glucose,Whole Blood 241 mg/dL (70-110)
[2022-08-21] MEDS: HYDROcodone/APAP 10-325MG 1 EACH TAB PO PRN ×2 (12:51→23:29)
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
[2022-08-21 16:29] LABS: Glucose,Whole Blood 317 mg/dL (70-110)
[2022-08-21] MEDS: SODIUM CHLORIDE 0.9% 500 ML 500 ML IV SCH (18:54)
[2022-08-21 20:28] LABS: Glucose,Whole Blood 328 mg/dL (70-110)
[2022-08-21] MEDS: LATANOPROST 0.005% OPHTH DROPS 2.5 ML BTL BOTH EYES SCH (22:00)
[2022-08-21] MEDS: FAMOTIDINE 20 MG TAB PO SCH (22:00)
[2022-08-22 00:10] LABS: Glucose,Whole Blood 338 mg/dL (70-110)
[2022-08-22] MEDS: INSULIN ASPART (NovoLOG) 100 UNIT/ML VIAL SQ SCH ×4 (00:21→16:58)
[2022-08-22] MEDS: COLLAGENASE 250 UNIT/GM OINTMENT 30 GM TUBE TOPICAL SCH ×2 (05:01→08:09)
[2022-08-22 06:02] LABS: Glucose,Whole Blood 293 mg/dL (70-110)
[2022-08-22] MEDS: PSYLLIUM HUSK 100% 6 GM PACKET PO SCH (08:08)
[2022-08-22] MEDS: APIXABAN 2.5 MG TABLET PO SCH ×2 (08:08→20:50)
[2022-08-22] MEDS: TAMSULOSIN 0.4 MG CAP.ER.24H PO SCH (08:08)
[2022-08-22] MEDS: ATORVASTATIN 80 MG TAB PO SCH (08:08)
[2022-08-22] MEDS: LACTULOSE 20 GM/30 ML CUP PO SCH ×2 (08:08→20:50)
[2022-08-22] MEDS: HYDROcodone/APAP 10-325MG 1 EACH TAB PO PRN ×2 (08:08→16:58)
[2022-08-22] MEDS: DULoxetine HCL 30 MG CAPSULE.DR PO SCH (08:08)
[2022-08-22] MEDS: carBAMazepine 100 MG TAB.ER.12H PO SCH (08:09)
[2022-08-22] MEDS: NON FORMULARY DRUG (Lubiprostone [Amitiza] 24 MCG Capsule) PO SCH ×2 (08:10→20:44)
[2022-08-22] MEDS: PIPERACILLIN-TAZOBACTAM 3.375 GM in SODIUM CHLORIDE 0.9% 100 ML IVPB SCH ×2 (08:10→16:59)
[2022-08-22] MEDS: SIMETHICONE 80 MG CHEWABLE PO SCH ×4 (08:10→20:50)
[2022-08-22] MEDS: IPRATROPIUM-ALBUTEROL 3 ML NEB INHALATION SCH ×4 (09:29→20:18)
--- NOTE | 2022-08-22 09:44 | P.PN ---
Subjective Progress Note Date: 08/22/22 Principal diagnosis: This is a 52-year-old male seen in consultation because of severe acute kidney injury with creatinine of 7 hyperkalemia needed 1 dialysis. Acute kidney injury is deemed to be from, sepsis, contrast. Further has a history of urinary retention. He has had a Castillo catheter. Currently feeling fine and denies any complaints. He is on nasal cannula oxygen His off of dialysis. Urine output and creatinine are improving potassium is controlled. Is known with obesity diabetes peripheral neuropathy factor V lesion mutation on and Coblation, diabetic gastroparesis and on home oxygen 2 L as well as a morphine pump because of chronic pain Objective - Vital Signs Vital signs: Vital Signs Temp 97.6 F 08/22/22 04:24 Pulse 70 08/22/22 09:29 Resp 18 08/22/22 04:24 BP 129/80 08/22/22 04:24 Pulse Ox 97 08/22/22 09:29 FiO2 30 08/22/22 04:24 Intake & Output 08/21/22 08/22/22 08/22/22 18:59 06:59 18:59 Intake Total 180 118 Output Total 625 600 Balance -445 -600 118 Weight 133.6 kg 85.5 kg Intake: Oral 180 118 Output: Urine 625 600 Other: Voiding Method Indwelling Catheter Indwelling Catheter ABP, PAP, CO, CI - Last Documented Arterial Blood Pressure 150/68 Awake alert oriented No JVP noted neck is supple no facial asymmetry Lungs are clear to auscultation good air entry Heart sounds unremarkable Abdomen soft obese Extremity exam reveals minimal edema Neurologically awake alert oriented - Labs CBC & Chem 7: 08/21/22 06:04 08/21/22 06:04 Labs: Abnormal Lab Results - Last 24 Hours (Table) 08/21/22 08/21/22 08/21/22 Range/Units 11:44 16:28 20:26 POC Glucose (mg/dL) 241 H 317 H 328 H (70-110) mg/dL 08/21/22 08/22/22 Range/Units 23:58 06:01 POC Glucose (mg/dL) 338 H 293 H (70-110) mg/dL Microbiology - Last 24 Hours (Table) 08/17/22 01:00 Anaerobic Culture - Preliminary Leg - Left 08/16/22 09:50 Blood Culture - Preliminary Blood Assessment and Plan Assessment: Impression 1. Acute kidney injury from contrast and sepsis improving creatinine and urine output, creatinine down from a peak of 7, to 1.5 as of yesterday last today are pending 2. Chronic kidney disease stage II baseline creatinine is 1.21, CK D appendect lula GFR is 69 mL per minute on 07/31/2022. Likely diabetic nephropathy 2+ urine protein on urinalysis not quantified. 3. Diabetic left lower extremity wound. 4. History of factor V Leiden deficiency on and decortication 5. Hyperkalemia secondary acute kidney injury resolved 6. Anemia hemoglobin is 8.8 as of yesterday, saturation was 12% dated 08/17/2022. Hemoglobin is improving. 7. Castillo catheter Recommendation 1. Will continue same medications. 1. Continue to monitor labs and avoid nephrotoxic medications.
[2022-08-22] MEDS: ONDANSETRON 4 MG/2 ML VIAL IVP PRN ×2 (11:12→16:58)
[2022-08-22 11:49] LABS: Glucose,Whole Blood 313 mg/dL (70-110)
[2022-08-22] MEDS: INSULIN DETEMIR (LEVEMIR) 100 UNIT/ML SYR SQ SCH (11:56)
[2022-08-22] MEDS: ACETAMINOPHEN TAB 325 MG TAB PO PRN (12:00)
--- NOTE | 2022-08-22 13:30 | P.PN ---
Subjective Progress Note Date: 08/22/22 This is a morbidly obese 53-year-old male patient who arrived to us from the [facility]. The patient was the hospital and was discharged to the [facility] on 08/07/2022. He has multiple medical problems and comorbidities. He is morbidly obese with a body mass index of 49. He is diabetic and his blood sugars have been poorly controlled and he has a diabetic ones in his left lower extremity jacob and this is a deep wound reaching his bone. This has been evaluated by Dr. Coleman and the patient was given wound care treatment. He does have charcoal joints related to his diabetes mellitus. He does have a component of chronic kidney disease, stage III related to hypertensive nephrosclerosis. 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 Note that his previous creatinine has been in the range of 1.48 prior to him being discharged. Yesterday, the patient presented to the emergency department because of difficulties with ones. He initially denies having any other complaints. No reported fever or chills. The patient apparently told the emergency physician that he was unsure exactly why he was sent into the emergency. I'm going to check the [facility] records accordingly. Meanwhile, while in the emergency, the patient was found to be in acute kidney injury. He had significant abnormalities in his blood work and the patient had a initial the 119, creatinine of 7.2, sodium of 1:30, potassium of 7.3, bicarb of 20, lactic acid level of 3.2, troponin of 0.02, and his white cell count was at 9.2 with a hemoglobin 10.7 and a platelet count of 247. This was consistent with an acute kidney injury. At that point, nephrology was consulted. Arrangements were made for this patient to undergo dialysis as the patient was offered treatment for his hyperkalemia and he did not respond. In fact his repeat potassium was at 7.6. At that time, he was decided to dialyze this patient. Dialysis catheter was inserted in the right femoral vein. The patient while on dialysis was noted to be progressively more apneic. The blood gas was done and he was found to be in acute on top of chronic respiratory acidosis in addition to a component of metabolic acidosis. PH was at 7.16 with a pCO2 of 60 and pO2 of 84. It was decided to proceed with intubation mechanical ventilation to maintain his breathing. As such, the patient was intubated and he was sent to the intensive care unit. This morning, the patient remains intubated. He is on propofol running at 40 mcg/kg/m. He is calm and comfortable. He is on mechanical ventilator assist control mode at the rate of 20, tidal volume 600, FiO2 of 100% with a PEEP of 5. His peak airway pressure is 35. Follow-up blood gases showed a pH of 7.22 with a pCO2 of 51 and pO2 of 66. I reviewed the series of chest x-rays including the one that was done today. There is evidence of interstitial edema along with cardiomegaly. The orotracheal tube is in good location for now. The follow-up morning blood gases showed a pH of 7.22 with a pCO2 of 51 and pO2 of 66 and this was on FiO2 of 100%. At the same time, the patient became hypotensive. He is currently on norepinephrine running at 0.06 mcg/kg/m. IV fluids currently at normal saline at the rate of 75 mL an hour. He does not produce any urine output for the time being. He is afebrile for now. The findings on the case. The patient is receiving a full session of hemodialysis today. In fact, he is currently undergoing hemodialysis. Blood sugars from this morning was at 125, On today's evaluation of 08/15/2022, the patient is intubated on mechanical ventilator. He remains sedated on propofol running at 50 mcg/kg/m. His calm and comfortable and very much interested mechanical ventilator. He remains on assist-control mode at a rate of 26, tidal volume of 450, FiO2 of 70% with a PEEP of 8. Chest x-ray still showing interstitial edema consistent with CHF and volume overload. The tube is in a good location. The patient was given a triple-lumen catheter in his left IJ yesterday. Blood gas shows a pH of 7.36 with a pCO2 of 45 and pO2 of 76 and this was on FiO2 of 70%. No significant orotracheal secretions. The patient has mild leukocytosis with a white cell count of 12.4. He is on IV Zosyn as an empiric antibiotic coverage for now. Meanwhile, he underwent hemodialysis yesterday. His potassium level has dropped down to 4.8. On today's blood work, he has a BUN of 56 with a creatinine of 4.5. He has a Castillo catheter in place and the urine output is in order of 200 mL an hour as such his urine output has picked up and improves. The patient is being seen by nephrology. I'm not sure if we're proceeding with another session of hemodialysis today as the patient's urine output has improved. Further discussion with the with nephrology. Meanwhile, hemodynamically, he remains on low-dose pressors and norepinephrine is running at 0.09 mcg/kg/m. He remains on IV fluids at KVO. A wound VAC was applied to his left lower extremity. Sputum cultures and obtain a blood cultures were obtained and the results of those are still pending. He has not started enteral feeding yet. He is on NovoLog sliding scale coverage. He is also on long-term and coagulation with Eliquis at a dose of 2.5 mg twice a day. 08/16/2022, the patient remains intubated on a mechanical ventilator. He remains on propofol running at 50 mcg/kg/m his adequately sedated. He started spiking temperature as of this morning and a T-max was 101.3. As such, further fever workup is being done. Meanwhile, there is a concern that the patient may have a pneumonia on top of his CHF and fluid overload. Sputum is positive for Pseudomonas species and the patient is currently on IV Zosyn. The chest x-ray still showing interstitial infiltrates bilaterally, no consolidation. Blood gas from today shows a pH of 7.38 with episodes of 46 and pO2 of 97. As such, his oxygenation is improved compared to yesterday. He remains on the same ventilator settings with a assist-control mode at the rate of 26, tidal volume of 450, FiO2 of 70% and a PEEP of 8. Peak airway pressure is 40. He is not going to get dialyzed today as the patient is producing copious amount of urine output. I was told that his urine output at times is at high as 500 mL an hour. He is diuresing adequately. No diuretics for now. His BUN is a 50 with a creatinine of 4 and there is interval improvement in his kidney function. Sodium is at 138. The WBC count is at 8.8 with a hemoglobin 8.3 and a platelet count of 232. He is receiving enteral feeding for nutritional support. He was started on Nepro at the rate of 10 mL an hour. He remains on IV Zosyn. He is on low-dose norepinephrine at 0.05 mcg/kg/m. His cardiac rhythm is sinus. He remains on long-term and coagulation with Eliquis. He has a wound VAC applied to his left lower extremity as the patient has a deep wound in the anterior aspe ct of the left leg without any surrounding cellulitis. THE WOUND VAC IS IN ORDER OF 0 ML OVER THE PAST 24 HOURS. Reevaluated today on 08/17/2022, patient remains in the ICU, intubated and mechanically ventilated. Patient is on assist control rate of 26 tidal volume 450 FiO2 50% and PEEP of 8. Patient has been on mechanical ventilation since 08/13/2022, ABG showed a pO2 of 84 pCO2 45 pH of 7.45. Patient is still on relatively low dose of norepinephrine at 0.04 mcg/kg/m propofol at 50 by grams per kilo per minute IV fluid is at KVO. Urine output seems to be improving on its own without any intervention. Patient did have dialysis at one point. Continues to have a hemodialysis catheter in the right groin. Continues to have wound VAC applied to left lower extremity. And being followed closely by infectious disease and by podiatry for his lower extremity cellulitis. Chest x- ray continues to show bilateral interstitial edema/infiltrates. BNP level remains elevated at 6710. WBC count is 7.3 hemoglobin 8.2 basic metabolic profile is relatively normal renal functioning is improving creatinine is down to 2.96 today compared to 4.03 yesterday patient remains on Zosyn, sputum cultures have been positive for pseudomonas aeruginosa Reevaluated today on 08/18/2022, patient remains in the ICU, intubated and mechanically ventilated. He is on assist control rate of 26 tidal volume 450 FiO2 50% and PEEP of 8. ABG showed a pO2 of 84 pCO2 45 pH of 7.45. Hence his FiO2 was cut down to 45% and The PEEP at 8. Patient is requiring low-dose norepinephrine at 0.03 mcg/kg/m his IV fluids at KVO and he is diuresing on his own quite well. His chest x-ray is showing improvement in his interstitial edema. He is on propofol at 50 mcg/kg/m. Patient is also receiving vital HPI 20 mL per hour. WBC count is 6 hemoglobin 7.9 and hematocrit 24.1 his electrolytes are normal bicarb is 31, BUN is improving down to 33 and creatinine is steadily improving down to 2.34. Patient remains in negative balance of over 5 L in the last 3 days. Again his chest x-ray is steadily improving and his oxygenation is also improving. Reevaluated today on 08/19/2022, patient remains in the ICU, intubated and mechanically ventilated. Patient remains on assist control rate of 26 tidal volume 450 FiO2 45% and PEEP of 8 ABG showed a pO2 of 68 pCO2 46 pH of 7.44. Patient remains on propofol at 45 mcg/kg/m, remains on Zosyn, his off norepinephrine, and he continues to diurese well on his own without any intervention. Remains on vital HPI 35 mL per hour. Chest x-ray continues to show steady improvement in his interstitial edema. Patient remains in negative fluid balance over the last few days. Sitting the steady improvement, I went ahead and recommended holding sedation, I also recommended weaning parameters, and a trial of weaning if weaning parameters are excellent with a pressure support of 10 and CPAP. Shortly after, the ABG came back showing a pO2 of 167 pCO2 43 pH of 7.47, hence while I was in the ICU, I recommended extubation of the patient. Patient was extubated to BiPAP, he normally has BiPAP at home with 18/14/40% FiO2. Labs today showed steady renal improvement his BUN is down to 30 creatinine 1.95, Electrolytesenc are normal. Reevaluated today on 08/20/2022, patient remains in the ICU, he was extubated yesterday, tolerated the extubation well, presently on 4 L nasal cannula, resting in bed, does not seem to be in any distress. Patient used his BiPAP last night with IPAP of 18 and EPAP 14 FiO2 30%. Continues to make good urine on his own and he remains in negative balance. He has at least 100 mL of urine output per hour. His hemodialysis catheter has been removed. His renal functioning is steadily improving. Chest x-ray continues to show evidence of in terstitial edema. His pulmonary status remains marginal at best. CBC is basically unremarkable except for hemoglobin of 7.9 electrolytes are normal slightly low potassium being addressed as per protocol. BUN is 24 creatinine 1.70 Reevaluated today on 02/20/2023, patient remains in the ICU, however the patient has made a significant improvement in the last 2 days, extubated 2 days ago, presently on nasal cannula at 3 L/m, his hemodialysis catheter has been removed, patient is not requiring any hemodialysis. Renal functioning is steadily improving creatinine is down to 1.51 today. His IV fluids at KVO, patient continues to have BiPAP at bedside uses BiPAP at bedtime. Set at 18/14/50%, n onetheless he is on 3 L nasal cannula at present. Remains on antibiotics for his extensive cellulitis of lower extremities. And the patient is able to cough and suction his own secretions. No chest x-ray was done today, however the patient remains in a negative fluid balance, and diuresing well on his own without using any diuretics. WBC count is 5.2 hemoglobin is 8.8 electrolytes are normal BUN is 21 creatinine 1.51 The patient is seen today 08/22/2022 in follow-up on the selective care unit. He was transferred out of the ICU yesterday. He is currently awake and alert in no acute distress. Resting fairly comfortably in bed. Denies any worsening shortness of breath, cough or congestion. He is utilizing BiPAP 18/14 and 30% FiO2 at night which are his home settings. He is maintaining O2 saturations in the 90s on 2 L/m per nasal cannula currently. Lower extremity wound cultures were positive for Enterococcus faecalis VRE and Enterobacter cloacae. Sputum culture previously been positive for pseudomonas aeruginosa. Blood glucose 313. He is on a NovoLog sliding scale. He remains on DuoNeb inhalations. Antibiotics in the form of Zosyn. Anticoagulated with Eliquis. Objective - Vital Signs Vital signs: Vital Signs Temp 98.3 F 08/22/22 07:55 Pulse 76 08/22/22 13:19 Resp 17 08/22/22 07:55 BP 158/74 08/22/22 07:55 Pulse Ox 97 08/22/22 09:29 FiO2 30 08/22/22 04:24 Intake & Output 08/21/22 08/22/22 08/22/22 18:59 06:59 18:59 Intake Total 180 118 Output Total 625 600 700 Balance -445 -600 -582 Weight 133.6 kg 85.5 kg Intake: Oral 180 118 Output: Urine 625 600 700 Other: Voiding Method Indwelling Catheter Indwelling Catheter Indwelling Catheter ABP, PAP, CO, CI - Last Documented Arterial Blood Pressure 150/68 - Exam Physical Exam: Revealed a 52-year-old male, sitting up in bed awake and alert, on 2 L nasal cannula, not in any distress. Head: Atraumatic, normocephalic. HEENT: Short obese neck noted. Neck is supple. No neck masses. No thyromegaly. No JVD. Chest Minimal crackles at the bases no rhonchi no wheezes Cardiac Exam: Distant S1 and S2, no S3 gallop, no murmur Abdomen: Morbidly obese, Soft, nontender, no megaly, no rebound, no guarding, normal bowel sounds. Extremities: Chronic edema and cellulitis noted in both lower extremities. Neurological Exam: Alert and oriented 3 focal neurologic deficits. Psychiatric: Normal mood, affect and normal mental status examination Skin: As noted above under extremities - Labs CBC & Chem 7: 08/21/22 06:04 08/21/22 06:04 Labs: Abnormal Lab Results - Last 24 Hours (Table) 08/21/22 08/21/22 08/21/22 Range/Units 16:28 20:26 23:58 POC Glucose (mg/dL) 317 H 328 H 338 H (70-110) mg/dL 08/22/22 08/22/22 Range/Units 06:01 11:47 POC Glucose (mg/dL) 293 H 313 H (70-110) mg/dL Microbiology - Last 24 Hours (Table) 08/16/22 09:50 Blood Culture - Final Blood 08/17/22 01:00 Anaerobic Culture - Preliminary Leg - Left Assessment and Plan Assessment: Acute hypoxic and hypercapnic respiratory failure, multifactorial. Patient was extubated on 08/19/2022. Stable and on 2 L nasal cannula Acute pseudomonal pneumonia, remains on antibiotics. Patient remains on Zosyn Acute on chronic diastolic congestive heart failure chest x-ray continues to show mild interstitial edema Acute fluid overload secondary to acute renal failure Acute on chronic kidney disease with diabetic nephropathy and hypertensive nephropathy. Chronic diabetic lower extremities ulcers with possible osteomyelitis/left lower extremity. Hypotension secondary to sepsis/septic shock. Still requiring norepinephrine at a low dose. Severe obstructive sleep apnea syndrome, on home BiPAP 18//30% Obesity/hypoventilation syndrome Morbid obesity with BMI of 51.8 Chronic pain syndrome, patient has a chronic pain pump. In the left lower quadrant. History of DVT History of factor V deficiency/hypercoagulable state Hypertension with hypertensive nephropathy/nephrosclerosis. Chronic back pain Anemia of chronic disease History of diverticulosis Plan: The patient was seen and evaluated Currently stable and on 2 L Medications and labs reviewed Remains hyperglycemic Add Levemir 15 units subcu daily Continue NovoLog scale Continue Zosyn Will return to ECF upon discharge We will continue to follow I have personally seen and examined the patient, performed the documentation and the assessment and plan as written. Number of minutes spent on the visit: 10.
--- NOTE | 2022-08-22 15:27 | P.PN ---
Subjective Progress Note Date: 08/21/22 Principal diagnosis: Pneumonia and left leg wound Patient is a 52-year old male with a past medical history significant for diabetes mellitus hypertension hyperlipidemia DVT, with a recent admission to [facility] from 07/31 to 08/07/2022 apparently the patient did have a wound to the left lower extremity to the anterior jacob and a wound on the plantar aspect of his left foot that was evaluated and treated by Dr. Coleman, with a wound VAC with a readmission to the hospital with acute respiratory failure requiring intubation did have a fever and concerning for pneumonia sputum is growing Pseudomonas and patient also have acute renal failure requiring dialysis. Left leg wound VAC was discontinued on 08/18/2019 as he did have significant slough tissue at the base of the wound per the wound care nurse, patient was extubated on 08/19/2022 On today's evaluation had that is 08/21/2022, the patient remains to be afebrile, the patient is breathing comfortable on nasal cannula oxygen , the patient denies any chest pain no worsening cough or sputum production no abdominal, or pain to the left lower extremity Objective - Vital Signs Vital signs: Vital Signs Temp 98.3 F 08/21/22 13:19 Pulse 76 08/21/22 13:19 Resp 17 08/21/22 13:19 BP 128/71 08/21/22 13:19 Pulse Ox 94 L 08/21/22 13:19 FiO2 30 08/21/22 13:19 Intake & Output 08/21/22 18:59 Intake Total 180 Output Total 625 Balance -445 Weight 133.6 kg Intake: Oral 180 Output: Urine 625 Other: Voiding Method Indwelling Catheter ABP, PAP, CO, CI - Last Documented Arterial Blood Pressure 150/68 - Exam GENERAL DESCRIPTION: A middle-age male lying in bed in no distress RESPIRATORY SYSTEM: Unlabored breathing , decreased breath sounds at bases HEART: S1 S2 regular rate and rhythm , ABDOMEN: Soft , no tenderness EXTREMITIES: Diffuse swelling to bilateral lower extremity with a wound to the left jacob did have a slough tissue minimal surrounding redness, some drainage on the left posterior leg wound - Labs CBC & Chem 7: 08/21/22 06:04 08/21/22 06:04 Labs: Abnormal Lab Results - Last 24 Hours (Table) 08/21/22 08/21/22 08/21/22 Range/Units 16:28 20:26 23:58 POC Glucose (mg/dL) 317 H 328 H 338 H (70-110) mg/dL 08/22/22 08/22/22 Range/Units 06:01 11:47 POC Glucose (mg/dL) 293 H 313 H (70-110) mg/dL Microbiology - Last 24 Hours (Table) 08/16/22 09:50 Blood Culture - Final Blood 08/17/22 01:00 Anaerobic Culture - Preliminary Leg - Left Assessment and Plan (1) Pseudomonas pneumonia Current Visit: Yes Status: Acute Code(s): J15.1 - PNEUMONIA DUE TO PSEUDOMONAS SNOMED Code(s): 93416607 (2) Fever Current Visit: No Status: Acute Code(s): R50.9 - FEVER, UNSPECIFIED SNOMED Code(s): 638448934 Plan: 1patient was in the hospital with sepsis in this patient with a fever elevated white count source is likely multifactorial with concern for possible component of pneumonia sputum showing Pseudomonas and the patient also have multiple wound especially left lower extremity and concern for possible secondary cellulitis 2-the patient blood cultures has been negative so far, sputum is growing Pseudomonas, left leg wound culture grew Enterobacter that is sensitive to Zosyn and Cefepime 3-patient local wound care to the left leg with Santyl followed by moist dressing awaiting surgical debridement by his packer inspector 4- the patient will continue with the Zosyn and continue supportive care Time with Patient: Less than 30
--- NOTE | 2022-08-22 15:29 | P.PN ---
Subjective Progress Note Date: 08/22/22 Principal diagnosis: Pneumonia and left leg wound Patient is a 52-year old male with a past medical history significant for diabetes mellitus hypertension hyperlipidemia DVT, with a recent admission to [facility] from 07/31 to 08/07/2022 apparently the patient did have a wound to the left lower extremity to the anterior jacob and a wound on the plantar aspect of his left foot that was evaluated and treated by Dr. Coleman, with a wound VAC with a readmission to the hospital with acute respiratory failure requiring intubation did have a fever and concerning for pneumonia sputum is growing Pseudomonas and patient also have acute renal failure requiring dialysis. Left leg wound VAC was discontinued on 08/18/2019 as he did have significant slough tissue at the base of the wound per the wound care nurse, patient was extubated on 08/19/2022 On today's evaluation had that is 08/22/2022, the patient continues to be afebrile, the patient is breathing comfortable on 2 L nasal cannula oxygen , the patient denies any chest pain , occasional dry cough, denies any nausea no vomiting no abdominal pain, or pain to the left lower extremity Objective - Vital Signs Vital signs: Vital Signs Temp 98.3 F 08/22/22 07:55 Pulse 76 08/22/22 13:19 Resp 17 08/22/22 11:10 BP 128/71 08/22/22 11:10 Pulse Ox 94 L 08/22/22 11:10 FiO2 30 08/22/22 04:24 Intake & Output 08/21/22 08/22/22 08/22/22 18:59 06:59 18:59 Intake Total 180 236 Output Total 625 600 700 Balance -781 -297 -078 Weight 133.6 kg 85.5 kg Intake: Oral 180 236 Output: Urine 625 600 700 Other: Voiding Method Indwelling Catheter Indwelling Catheter Indwelling Catheter ABP, PAP, CO, CI - Last Documented Arterial Blood Pressure 150/68 - Exam GENERAL DESCRIPTION: A middle-age male lying in bed in no distress RESPIRATORY SYSTEM: Unlabored breathing , decreased breath sounds at bases HEART: S1 S2 regular rate and rhythm , ABDOMEN: Soft , no tenderness EXTREMITIES: Diffuse swelling to bilateral lower extremity with a wound to the left jacob currently dressed no drainage on the dressing - Labs CBC & Chem 7: 08/21/22 06:04 08/21/22 06:04 Labs: Abnormal Lab Results - Last 24 Hours (Table) 08/21/22 08/21/22 08/21/22 Range/Units 16:28 20:26 23:58 POC Glucose (mg/dL) 317 H 328 H 338 H (70-110) mg/dL 08/22/22 08/22/22 Range/Units 06:01 11:47 POC Glucose (mg/dL) 293 H 313 H (70-110) mg/dL Microbiology - Last 24 Hours (Table) 08/16/22 09:50 Blood Culture - Final Blood 08/17/22 01:00 Anaerobic Culture - Preliminary Leg - Left Assessment and Plan (1) Pseudomonas pneumonia Current Visit: Yes Status: Acute Code(s): J15.1 - PNEUMONIA DUE TO PSEUDOMONAS SNOMED Code(s): 59856660 (2) Fever Current Visit: No Status: Acute Code(s): R50.9 - FEVER, UNSPECIFIED SNOMED Code(s): 569873382 Plan: 1patient was in the hospital with sepsis in this patient with a fever elevated white count source is likely multifactorial with concern for possible component of pneumonia sputum showing Pseudomonas and the patient also have multiple wound especially left lower extremity and concern for possible secondary cellulitis 2-the patient blood cultures has been negative so far, sputum is growing Pseudomonas, left leg wound culture grew Enterobacter that is sensitive to Zosyn and Cefepime 3-patient local wound care to the left leg with Santyl followed by moist dressing, the patient is awaiting surgical debridement by his pea viner mechanic 4- the patient to continue with the current treatment of Zosyn and monitor clinical course closely Time with Patient: Less than 30
[2022-08-22] MEDS: SODIUM CHLORIDE 0.9% 500 ML 500 ML IV SCH (16:07)
[2022-08-22 16:50] LABS: Glucose,Whole Blood 291 mg/dL (70-110)
[2022-08-22 19:16] LABS: Calcium 8.3 mg/dL (8.4-10.2)
[2022-08-22 19:36] LABS: Potassium 5.2 mmol/L (3.5-5.1)
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
[2022-08-22] MEDS: FAMOTIDINE 20 MG TAB PO SCH (20:50)
[2022-08-22] MEDS: LATANOPROST 0.005% OPHTH DROPS 2.5 ML BTL BOTH EYES SCH (20:51)
[2022-08-23 00:44] LABS: Glucose,Whole Blood 327 mg/dL (70-110)
[2022-08-23] MEDS: INSULIN ASPART (NovoLOG) 100 UNIT/ML VIAL SQ SCH ×5 (00:47→23:54)
[2022-08-23] MEDS: HYDROcodone/APAP 10-325MG 1 EACH TAB PO PRN ×3 (00:47→22:08)
[2022-08-23] MEDS: PIPERACILLIN-TAZOBACTAM 3.375 GM in SODIUM CHLORIDE 0.9% 100 ML IVPB SCH ×4 (00:59→23:55)
[2022-08-23 06:15] LABS: Glucose,Whole Blood 295 mg/dL (70-110)
[2022-08-23] MEDS: INSULIN DETEMIR (LEVEMIR) 100 UNIT/ML SYR SQ SCH (06:33)
--- NOTE | 2022-08-23 07:34 | P.PN ---
Subjective Progress Note Date: 08/23/22 Principal diagnosis: This is a 52-year-old male seen in consultation because of severe acute kidney injury with creatinine of 7 hyperkalemia needed 1 dialysis. Acute kidney injury is deemed to be from, sepsis, contrast. Further has a history of urinary retention. He has had a Castillo catheter. Currently he has a low-grade temperature 99.4. He is on nasal cannula oxygen. He is on oxygen at home as well. Appetite is improving no nausea vomiting or diarrhea no abdominal pain He is off of dialysis. Urine output is documented at 1600 mL, and creatinine 1.27 as of yesterday 08/22/2022 are potassium is 5.2 controlled. Is known with obesity diabetes peripheral neuropathy factor V lesion mutation on and anticoagulation, diabetic gastroparesis and on home oxygen 2 L as well as a morphine pump because of chronic pain Objective - Vital Signs Vital signs: Vital Signs Temp 99.4 F 08/23/22 03:35 Pulse 61 08/23/22 03:35 Resp 14 08/23/22 03:35 BP 130/73 08/23/22 03:35 Pulse Ox 99 08/23/22 03:35 FiO2 30 08/23/22 03:35 Intake & Output 08/22/22 08/23/22 08/23/22 18:59 06:59 18:59 Intake Total 236 Output Total 700 900 Balance -464 -900 Weight 85.5 kg Intake: Oral 236 Output: Urine 700 900 Other: Voiding Method Indwelling Catheter Indwelling Catheter ABP, PAP, CO, CI - Last Documented Arterial Blood Pressure 150/68 Awake alert oriented No JVP noted neck is supple no facial asymmetry Lungs are clear to auscultation good air entry Heart sounds unremarkable Abdomen soft obese Extremity exam reveals minimal edema, with chronic stasis changes Neurologically awake alert oriented - Labs CBC & Chem 7: 08/21/22 06:04 08/22/22 18:44 Labs: Abnormal Lab Results - Last 24 Hours (Table) 08/22/22 08/22/22 08/22/22 Range/Units 11:47 16:47 18:44 Potassium 5.2 H (3.5-5.1) mmol/L BUN 21 H (9-20) mg/dL Creatinine 1.27 H (0.66-1.25) mg/dL Glucose 279 H (74-99) mg/dL POC Glucose (mg/dL) 313 H 291 H (70-110) mg/dL Calcium 8.3 L (8.4-10.2) mg/dL 08/23/22 08/23/22 Range/Units 00:39 06:14 Potassium (3.5-5.1) mmol/L BUN (9-20) mg/dL Creatinine (0.66-1.25) mg/dL Glucose (74-99) mg/dL POC Glucose (mg/dL) 327 H 295 H (70-110) mg/dL Calcium (8.4-10.2) mg/dL Microbiology - Last 24 Hours (Table) 08/17/22 01:00 Anaerobic Culture - Final Leg - Left 08/16/22 09:50 Blood Culture - Final Blood Assessment and Plan Assessment: Impression 1. Acute kidney injury from contrast and sepsis improving creatinine and urine output, creatinine down from a peak of 7, to 1.27 as of yesterday 2. Chronic kidney disease stage II baseline creatinine is 1.21, CK D GFR is 69 mL per minute on 07/31/2022. Likely diabetic nephropathy 2+ urine protein on urinalysis, proteinuria is not quantified. 3. Diabetic left lower extremity wound. 4. History of factor V Leiden deficiency on and anticoagulation 5. Hyperkalemia secondary acute kidney injury resolved 6. Anemia hemoglobin is 8.8 as of 08/21/2022, saturation was 12% dated 08/17/2022. Hemoglobin is improving. 7. Castillo catheter Recommendation 1. Will continue same medications. 1. Continue to monitor labs and avoid nephrotoxic medications.
[2022-08-23] MEDS: LACTULOSE 20 GM/30 ML CUP PO SCH ×2 (08:25→20:40)
[2022-08-23] MEDS: ATORVASTATIN 80 MG TAB PO SCH (08:27)
[2022-08-23] MEDS: DULoxetine HCL 30 MG CAPSULE.DR PO SCH (08:27)
[2022-08-23] MEDS: APIXABAN 2.5 MG TABLET PO SCH ×2 (08:27→20:40)
[2022-08-23] MEDS: ONDANSETRON 4 MG/2 ML VIAL IVP PRN (08:27)
[2022-08-23] MEDS: TAMSULOSIN 0.4 MG CAP.ER.24H PO SCH (08:27)
--- NOTE | 2022-08-23 08:27 | XR ---
EXAMINATION TYPE: XR chest 1V portable DATE OF EXAM: 08/23/2022 COMPARISON: 08/20/2022 HISTORY: Follow-up CHF TECHNIQUE: Single frontal view of the chest is obtained. FINDINGS: The heart size is mildly prominent and the pulmonary vasculature appears mildly congested. Overall th ere is been mild improvement compared to prior study. There is no pleural effusion or pneumothorax. There is no airspace consolidation. There is no change in the central venous catheter the tip of which is in the SVC/R junction. Osseous structures are intact. IMPRESSION: Findings most consistent with mild CHF with mild degree of interval improvement compared to the prior study.
[2022-08-23] MEDS: SIMETHICONE 80 MG CHEWABLE PO SCH ×5 (08:28→20:41)
[2022-08-23] MEDS: carBAMazepine 100 MG TAB.ER.12H PO SCH (08:28)
[2022-08-23] MEDS: PSYLLIUM HUSK 100% 6 GM PACKET PO SCH ×2 (08:28→20:40)
[2022-08-23] MEDS: COLLAGENASE 250 UNIT/GM OINTMENT 30 GM TUBE TOPICAL SCH (09:46)
[2022-08-23] MEDS: NON FORMULARY DRUG (Lubiprostone [Amitiza] 24 MCG Capsule) PO SCH ×2 (09:46→20:33)
[2022-08-23] MEDS: IPRATROPIUM-ALBUTEROL 3 ML NEB INHALATION SCH ×4 (09:55→21:56)
[2022-08-23 11:50] LABS: Glucose,Whole Blood 309 mg/dL (70-110)
--- NOTE | 2022-08-23 12:15 | P.PN ---
Subjective Progress Note Date: 08/23/22 This is a morbidly obese 53-year-old male patient who arrived to us from the [facility]. The patient was the hospital and was discharged to the [facility] on 08/07/2022. He has multiple medical problems and comorbidities. He is morbidly obese with a body mass index of 49. He is diabetic and his blood sugars have been poorly controlled and he has a diabetic ones in his left lower extremity jacob and this is a deep wound reaching his bone. This has been evaluated by Dr. Coleman and the patient was given wound care treatment. He does have charcoal joints related to his diabetes mellitus. He does have a component of chronic kidney disease, stage III related to hypertensive nephrosclerosis. 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 Note that his previous creatinine has been in the range of 1.48 prior to him being discharged. Yesterday, the patient presented to the emergency department because of difficulties with ones. He initially denies having any other complaints. No reported fever or chills. The patient apparently told the emergency physician that he was unsure exactly why he was sent into the emergency. I'm going to check the [facility] records accordingly. Meanwhile, while in the emergency, the patient was found to be in acute kidney injury. He had significant abnormalities in his blood work and the patient had a initial the 119, creatinine of 7.2, sodium of 1:30, potassium of 7.3, bicarb of 20, lactic acid level of 3.2, troponin of 0.02, and his white cell count was at 9.2 with a hemoglobin 10.7 and a platelet count of 247. This was consistent with an acute kidney injury. At that point, nephrology was consulted. Arrangements were made for this patient to undergo dialysis as the patient was offered treatment for his hyperkalemia and he did not respond. In fact his repeat potassium was at 7.6. At that time, he was decided to dialyze this patient. Dialysis catheter was inserted in the right femoral vein. The patient while on dialysis was noted to be progressively more apneic. The blood gas was done and he was found to be in acute on top of chronic respiratory acidosis in addition to a component of metabolic acidosis. PH was at 7.16 with a pCO2 of 60 and pO2 of 84. It was decided to proceed with intubation mechanical ventilation to maintain his breathing. As such, the patient was intubated and he was sent to the intensive care unit. This morning, the patient remains intubated. He is on propofol running at 40 mcg/kg/m. He is calm and comfortable. He is on mechanical ventilator assist control mode at the rate of 20, tidal volume 600, FiO2 of 100% with a PEEP of 5. His peak airway pressure is 35. Follow-up blood gases showed a pH of 7.22 with a pCO2 of 51 and pO2 of 66. I reviewed the series of chest x-rays including the one that was done today. There is evidence of interstitial edema along with cardiomegaly. The orotracheal tube is in good location for now. The follow-up morning blood gases showed a pH of 7.22 with a pCO2 of 51 and pO2 of 66 and this was on FiO2 of 100%. At the same time, the patient became hypotensive. He is currently on norepinephrine running at 0.06 mcg/kg/m. IV fluids currently at normal saline at the rate of 75 mL an hour. He does not produce any urine output for the time being. He is afebrile for now. The findings on the case. The patient is receiving a full session of hemodialysis today. In fact, he is currently undergoing hemodialysis. Blood sugars from this morning was at 125, On today's evaluation of 08/15/2022, the patient is intubated on mechanical ventilator. He remains sedated on propofol running at 50 mcg/kg/m. His calm and comfortable and very much interested mechanical ventilator. He remains on assist-control mode at a rate of 26, tidal volume of 450, FiO2 of 70% with a PEEP of 8. Chest x-ray still showing interstitial edema consistent with CHF and volume overload. The tube is in a good location. The patient was given a triple-lumen catheter in his left IJ yesterday. Blood gas shows a pH of 7.36 with a pCO2 of 45 and pO2 of 76 and this was on FiO2 of 70%. No significant orotracheal secretions. The patient has mild leukocytosis with a white cell count of 12.4. He is on IV Zosyn as an empiric antibiotic coverage for now. Meanwhile, he underwent hemodialysis yesterday. His potassium level has dropped down to 4.8. On today's blood work, he has a BUN of 56 with a creatinine of 4.5. He has a Castillo catheter in place and the urine output is in order of 200 mL an hour as such his urine output has picked up and improves. The patient is being seen by nephrology. I'm not sure if we're proceeding with another session of hemodialysis today as the patient's urine output has improved. Further discussion with the with nephrology. Meanwhile, hemodynamically, he remains on low-dose pressors and norepinephrine is running at 0.09 mcg/kg/m. He remains on IV fluids at KVO. A wound VAC was applied to his left lower extremity. Sputum cultures and obtain a blood cultures were obtained and the results of those are still pending. He has not started enteral feeding yet. He is on NovoLog sliding scale coverage. He is also on long-term and coagulation with Eliquis at a dose of 2.5 mg twice a day. 08/16/2022, the patient remains intubated on a mechanical ventilator. He remains on propofol running at 50 mcg/kg/m his adequately sedated. He started spiking temperature as of this morning and a T-max was 101.3. As such, further fever workup is being done. Meanwhile, there is a concern that the patient may have a pneumonia on top of his CHF and fluid overload. Sputum is positive for Pseudomonas species and the patient is currently on IV Zosyn. The chest x-ray still showing interstitial infiltrates bilaterally, no consolidation. Blood gas from today shows a pH of 7.38 with episodes of 46 and pO2 of 97. As such, his oxygenation is improved compared to yesterday. He remains on the same ventilator settings with a assist-control mode at the rate of 26, tidal volume of 450, FiO2 of 70% and a PEEP of 8. Peak airway pressure is 40. He is not going to get dialyzed today as the patient is producing copious amount of urine output. I was told that his urine output at times is at high as 500 mL an hour. He is diuresing adequately. No diuretics for now. His BUN is a 50 with a creatinine of 4 and there is interval improvement in his kidney function. Sodium is at 138. The WBC count is at 8.8 with a hemoglobin 8.3 and a platelet count of 232. He is receiving enteral feeding for nutritional support. He was started on Nepro at the rate of 10 mL an hour. He remains on IV Zosyn. He is on low-dose norepinephrine at 0.05 mcg/kg/m. His cardiac rhythm is sinus. He remains on long-term and coagulation with Eliquis. He has a wound VAC applied to his left lower extremity as the patient has a deep wound in the anterior aspe ct of the left leg without any surrounding cellulitis. THE WOUND VAC IS IN ORDER OF 0 ML OVER THE PAST 24 HOURS. Reevaluated today on 08/17/2022, patient remains in the ICU, intubated and mechanically ventilated. Patient is on assist control rate of 26 tidal volume 450 FiO2 50% and PEEP of 8. Patient has been on mechanical ventilation since 08/13/2022, ABG showed a pO2 of 84 pCO2 45 pH of 7.45. Patient is still on relatively low dose of norepinephrine at 0.04 mcg/kg/m propofol at 50 by grams per kilo per minute IV fluid is at KVO. Urine output seems to be improving on its own without any intervention. Patient did have dialysis at one point. Continues to have a hemodialysis catheter in the right groin. Continues to have wound VAC applied to left lower extremity. And being followed closely by infectious disease and by podiatry for his lower extremity cellulitis. Chest x- ray continues to show bilateral interstitial edema/infiltrates. BNP level remains elevated at 6710. WBC count is 7.3 hemoglobin 8.2 basic metabolic profile is relatively normal renal functioning is improving creatinine is down to 2.96 today compared to 4.03 yesterday patient remains on Zosyn, sputum cultures have been positive for pseudomonas aeruginosa Reevaluated today on 08/18/2022, patient remains in the ICU, intubated and mechanically ventilated. He is on assist control rate of 26 tidal volume 450 FiO2 50% and PEEP of 8. ABG showed a pO2 of 84 pCO2 45 pH of 7.45. Hence his FiO2 was cut down to 45% and The PEEP at 8. Patient is requiring low-dose norepinephrine at 0.03 mcg/kg/m his IV fluids at KVO and he is diuresing on his own quite well. His chest x-ray is showing improvement in his interstitial edema. He is on propofol at 50 mcg/kg/m. Patient is also receiving vital HPI 20 mL per hour. WBC count is 6 hemoglobin 7.9 and hematocrit 24.1 his electrolytes are normal bicarb is 31, BUN is improving down to 33 and creatinine is steadily improving down to 2.34. Patient remains in negative balance of over 5 L in the last 3 days. Again his chest x-ray is steadily improving and his oxygenation is also improving. Reevaluated today on 08/19/2022, patient remains in the ICU, intubated and mechanically ventilated. Patient remains on assist control rate of 26 tidal volume 450 FiO2 45% and PEEP of 8 ABG showed a pO2 of 68 pCO2 46 pH of 7.44. Patient remains on propofol at 45 mcg/kg/m, remains on Zosyn, his off norepinephrine, and he continues to diurese well on his own without any intervention. Remains on vital HPI 35 mL per hour. Chest x-ray continues to show steady improvement in his interstitial edema. Patient remains in negative fluid balance over the last few days. Sitting the steady improvement, I went ahead and recommended holding sedation, I also recommended weaning parameters, and a trial of weaning if weaning parameters are excellent with a pressure support of 10 and CPAP. Shortly after, the ABG came back showing a pO2 of 167 pCO2 43 pH of 7.47, hence while I was in the ICU, I recommended extubation of the patient. Patient was extubated to BiPAP, he normally has BiPAP at home with 18/14/40% FiO2. Labs today showed steady renal improvement his BUN is down to 30 creatinine 1.95, Electrolytesenc are normal. Reevaluated today on 08/20/2022, patient remains in the ICU, he was extubated yesterday, tolerated the extubation well, presently on 4 L nasal cannula, resting in bed, does not seem to be in any distress. Patient used his BiPAP last night with IPAP of 18 and EPAP 14 FiO2 30%. Continues to make good urine on his own and he remains in negative balance. He has at least 100 mL of urine output per hour. His hemodialysis catheter has been removed. His renal functioning is steadily improving. Chest x-ray continues to show evidence of in terstitial edema. His pulmonary status remains marginal at best. CBC is basically unremarkable except for hemoglobin of 7.9 electrolytes are normal slightly low potassium being addressed as per protocol. BUN is 24 creatinine 1.70 Reevaluated today on 02/20/2023, patient remains in the ICU, however the patient has made a significant improvement in the last 2 days, extubated 2 days ago, presently on nasal cannula at 3 L/m, his hemodialysis catheter has been removed, patient is not requiring any hemodialysis. Renal functioning is steadily improving creatinine is down to 1.51 today. His IV fluids at KVO, patient continues to have BiPAP at bedside uses BiPAP at bedtime. Set at 18/14/50%, n onetheless he is on 3 L nasal cannula at present. Remains on antibiotics for his extensive cellulitis of lower extremities. And the patient is able to cough and suction his own secretions. No chest x-ray was done today, however the patient remains in a negative fluid balance, and diuresing well on his own without using any diuretics. WBC count is 5.2 hemoglobin is 8.8 electrolytes are normal BUN is 21 creatinine 1.51 The patient is seen today 08/22/2022 in follow-up on the selective care unit. He was transferred out of the ICU yesterday. He is currently awake and alert in no acute distress. Resting fairly comfortably in bed. Denies any worsening shortness of breath, cough or congestion. He is utilizing BiPAP 18/14 and 30% FiO2 at night which are his home settings. He is maintaining O2 saturations in the 90s on 2 L/m per nasal cannula currently. Lower extremity wound cultures were positive for Enterococcus faecalis VRE and Enterobacter cloacae. Sputum culture previously been positive for pseudomonas aeruginosa. Blood glucose 313. He is on a NovoLog sliding scale. He remains on DuoNeb inhalations. Antibiotics in the form of Zosyn. Anticoagulated with Eliquis. The patient is seen today 08/23/2022 in follow-up on the selective care unit. He is currently sitting up in bed. Awake and alert in no acute distress. Doing quite a bit better. He is maintaining good O2 saturations in the 90s on 2 L/m per nasal cannula. He does utilizes BiPAP at night 18/14 and 30% FiO2. Chest x-ray shows improvement and just residual mild congestive heart failure. No airspace consolidation. No pleural effusion. No pneumothorax. Dressings to lower extremities remain dry and intact. He is continued on Zosyn. He remains on bronchodilators. Anticoagulated with Eliquis. Objective - Vital Signs Vital signs: Vital Signs Temp 98.4 F 08/23/22 08:25 Pulse 88 08/23/22 10:06 Resp 17 08/23/22 08:25 BP 145/76 08/23/22 08:25 Pulse Ox 97 08/23/22 09:56 FiO2 30 08/23/22 03:35 Intake & Output 08/22/22 08/23/22 08/23/22 18:59 06:59 18:59 Intake Total 236 180 Output Total 700 900 Balance -464 -900 180 Weight 85.5 kg Intake: Oral 236 180 Output: Urine 700 900 Other: Voiding Method Indwelling Catheter Indwelling Catheter Indwelling Catheter ABP, PAP, CO, CI - Last Documented Arterial Blood Pressure 150/68 - Exam Physical Exam: Revealed a pleasant 52-year-old male, sitting up in bed awake and alert, on 2 L nasal cannula, alternating with BiPAP 18/14 and 30% FiO2, not in any distress. Head: Atraumatic, normocephalic. HEENT: Short obese neck noted. Neck is supple. No neck masses. No thyromegaly. No JVD. Chest Minimal crackles at the bases no rhonchi no wheezes Cardiac Exam: Distant S1 and S2, no S3 gallop, no murmur Abdomen: Morbidly obese, Soft, nontender, no megaly, no rebound, no guarding, normal bowel sounds. Extremities: Chronic edema and cellulitis noted in both lower extremities. Dressings dry and intact. Neurological Exam: Alert and oriented 3 focal neurologic deficits. Psychiatric: Normal mood, affect and normal mental status examination Skin: As noted above under extremities - Labs CBC & Chem 7: 08/21/22 06:04 08/22/22 18:44 Labs: Abnormal Lab Results - Last 24 Hours (Table) 08/22/22 08/22/22 08/23/22 Range/Units 16:47 18:44 00:39 Potassium 5.2 H (3.5-5.1) mmol/L BUN 21 H (9-20) mg/dL Creatinine 1.27 H (0.66-1.25) mg/dL Glucose 279 H (74-99) mg/dL POC Glucose (mg/dL) 291 H 327 H (70-110) mg/dL Calcium 8.3 L (8.4-10.2) mg/dL 08/23/22 08/23/22 Range/Units 06:14 11:49 Potassium (3.5-5.1) mmol/L BUN (9-20) mg/dL Creatinine (0.66-1.25) mg/dL Glucose (74-99) mg/dL POC Glucose (mg/dL) 295 H 309 H (70-110) mg/dL Calcium (8.4-10.2) mg/dL Microbiology - Last 24 Hours (Table) 08/17/22 01:00 Anaerobic Culture - Final Leg - Left 08/16/22 09:50 Blood Culture - Final Blood Assessment and Plan Assessment: Acute hypoxic and hypercapnic respiratory failure, multifactorial. Patient was extubated on 08/19/2022. Stable and on 2 L nasal cannula. Improved Acute pseudomonal pneumonia. Patient remains on Zosyn Acute on chronic diastolic congestive heart failure, chest x-ray continues to show mild interstitial edema Acute fluid overload secondary to acute renal failure Acute on chronic kidney disease with diabetic nephropathy and hypertensive nephropathy. Chronic diabetic lower extremities ulcers with possible osteomyelitis/left lower extremity. Hypotension secondary to sepsis/septic shock. Recovered. Severe obstructive sleep apnea syndrome, on home BiPAP % Obesity/hypoventilation syndrome Morbid obesity with BMI of 51.8 Chronic pain syndrome, patient has a chronic pain pump. In the left lower quadrant. History of DVT History of factor V deficiency/hypercoagulable state Hypertension with hypertensive nephropathy/nephrosclerosis. Chronic back pain Anemia of chronic disease History of diverticulosis Plan: The patient was seen and evaluated Chest x-ray, medications reviewed Currently stable and on 2 L Continue Zosyn Will return to ECF upon discharge We will continue to follow I have personally seen and examined the patient, performed the documentation and the assessment and plan as written. Number of minutes spent on the visit: 10.
[2022-08-23] MEDS: SODIUM CHLORIDE 0.9% 500 ML 500 ML IV SCH (15:25)
[2022-08-23 16:26] LABS: Glucose,Whole Blood 281 mg/dL (70-110)
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
[2022-08-23] MEDS: FAMOTIDINE 20 MG TAB PO SCH (20:40)
[2022-08-23] MEDS: LATANOPROST 0.005% OPHTH DROPS 2.5 ML BTL BOTH EYES SCH (20:44)
[2022-08-23 20:55] LABS: Glucose,Whole Blood 296 mg/dL (70-110)
[2022-08-23] MEDS ORDERED: INSULIN DETEMIR (LEVEMIR) 100 UNIT/ML SYR SQ SCH (21:00)
--- NOTE | 2022-08-23 22:45 | P.PN ---
Subjective Progress Note Date: 08/23/22 Principal diagnosis: Pneumonia and left leg wound Patient is a 52-year old male with a past medical history significant for diabetes mellitus hypertension hyperlipidemia DVT, with a recent admission to [facility] from 07/31 to 08/07/2022 apparently the patient did have a wound to the left lower extremity to the anterior jacob and a wound on the plantar aspect of his left foot that was evaluated and treated by Dr. Coleman, with a wound VAC with a readmission to the hospital with acute respiratory failure requiring intubation did have a fever and concerning for pneumonia sputum is growing Pseudomonas and patient also have acute renal failure requiring dialysis. Left leg wound VAC was discontinued on 08/18/2019 as he did have significant slough tissue at the base of the wound per the wound care nurse, patient was extubated on 08/19/2022 On today's evaluation had that is 08/23/2022, the patient remains to be afebrile, the patient is breathing comfortable on 2 L nasal cannula oxygen , the patient denies any chest pain , the patient did have occasional dry cough, the patient denies any nausea no vomiting no abdominal pain, or pain to the left low er extremity Objective - Vital Signs Vital signs: Vital Signs Temp 98.4 F 08/23/22 08:25 Pulse 62 08/23/22 08:25 Resp 17 08/23/22 08:25 BP 145/76 08/23/22 08:25 Pulse Ox 96 08/23/22 08:25 FiO2 30 08/23/22 03:35 Intake & Output 08/22/22 08/23/22 08/23/22 18:59 06:59 18:59 Intake Total 236 180 Output Total 700 900 Balance -464 -900 180 Weight 85.5 kg Intake: Oral 236 180 Output: Urine 700 900 Other: Voiding Method Indwelling Catheter Indwelling Catheter Indwelling Catheter ABP, PAP, CO, CI - Last Documented Arterial Blood Pressure 150/68 - Exam GENERAL DESCRIPTION: A middle-age male lying in bed in no distress RESPIRATORY SYSTEM: Unlabored breathing , decreased breath sounds at bases HEART: S1 S2 regular rate and rhythm , ABDOMEN: Soft , no tenderness EXTREMITIES: Diffuse swelling to bilateral lower extremity with a wound to the left jacob currently dressed no drainage on the dressing - Labs CBC & Chem 7: 08/21/22 06:04 08/22/22 18:44 Labs: Abnormal Lab Results - Last 24 Hours (Table) 08/22/22 08/22/22 08/22/22 Range/Units 11:47 16:47 18:44 Potassium 5.2 H (3.5-5.1) mmol/L BUN 21 H (9-20) mg/dL Creatinine 1.27 H (0.66-1.25) mg/dL Glucose 279 H (74-99) mg/dL POC Glucose (mg/dL) 313 H 291 H (70-110) mg/dL Calcium 8.3 L (8.4-10.2) mg/dL 08/23/22 08/23/22 Range/Units 00:39 06:14 Potassium (3.5-5.1) mmol/L BUN (9-20) mg/dL Creatinine (0.66-1.25) mg/dL Glucose (74-99) mg/dL POC Glucose (mg/dL) 327 H 295 H (70-110) mg/dL Calcium (8.4-10.2) mg/dL Microbiology - Last 24 Hours (Table) 08/17/22 01:00 Anaerobic Culture - Final Leg - Left 08/16/22 09:50 Blood Culture - Final Blood Assessment and Plan (1) Pseudomonas pneumonia Current Visit: Yes Status: Acute Code(s): J15.1 - PNEUMONIA DUE TO PSEUDOMONAS SNOMED Code(s): 72813398 (2) Fever Current Visit: No Status: Acute Code(s): R50.9 - FEVER, UNSPECIFIED SNOMED Code(s): 094200056 Plan: 1patient was in the hospital with sepsis in this patient with a fever elevated white count source is likely multifactorial with concern for possible component of pneumonia sputum showing Pseudomonas and the patient also have multiple wound especially left lower extremity and concern for possible secondary cellulitis 2-the patient blood cultures has been negative so far, sputum is growing Pseudomonas, left leg wound culture grew Enterobacter that is sensitive to Zosyn , cultures also growing VRE however that is sensitive to penicillin and should be covered with Zosyn 3-patient local wound care to the left leg with Santyl followed by moist dressing, the patient is awaiting surgical debridement by his echo technologist 4- the patient to continue with the current treatment of Zosyn and will benefit from a midline short course of IV Zosyn on discharge Time with Patient: Less than 30
[2022-08-23 23:50] LABS: Glucose,Whole Blood 316 mg/dL (70-110)
[2022-08-24 05:53] LABS: Glucose,Whole Blood 233 mg/dL (70-110)
[2022-08-24] MEDS: INSULIN ASPART (NovoLOG) 100 UNIT/ML VIAL SQ SCH ×3 (06:36→17:45)
[2022-08-24] MEDS: IPRATROPIUM-ALBUTEROL 3 ML NEB INHALATION SCH ×4 (09:09→21:17)
[2022-08-24] MEDS: PIPERACILLIN-TAZOBACTAM 3.375 GM in SODIUM CHLORIDE 0.9% 100 ML IVPB SCH ×2 (09:49→15:42)
[2022-08-24] MEDS: DULoxetine HCL 30 MG CAPSULE.DR PO SCH (09:50)
[2022-08-24] MEDS: APIXABAN 2.5 MG TABLET PO SCH ×2 (09:50→19:57)
[2022-08-24] MEDS: LACTULOSE 20 GM/30 ML CUP PO SCH ×2 (09:50→19:57)
[2022-08-24] MEDS: TAMSULOSIN 0.4 MG CAP.ER.24H PO SCH (09:50)
[2022-08-24] MEDS: carBAMazepine 100 MG TAB.ER.12H PO SCH (09:51)
[2022-08-24] MEDS: SIMETHICONE 80 MG CHEWABLE PO SCH ×4 (09:51→19:57)
[2022-08-24] MEDS: PSYLLIUM HUSK 100% 6 GM PACKET PO SCH ×2 (09:53→19:57)
[2022-08-24] MEDS: NON FORMULARY DRUG (Lubiprostone [Amitiza] 24 MCG Capsule) PO SCH ×2 (09:54→19:37)
--- NOTE | 2022-08-24 10:29 | P.PN ---
Subjective Patient is seen in follow-up for acute kidney injury. Underwent hemodialysis 08/14/2022 for hyperkalemia. Dialysis catheter not removed. Creatinine 1.27 dated 08/22/2022. On nasal cannula. Denies chest pain or shortness of breath. Vital signs are stable. General: Resting in bed. HEENT: On nasal cannula. LUNGS: No audible rhonchi or wheezes. HEART: Rate and Rhythm are regular. ABDOMEN: Obese. EXTREMITITES: Chronic changes noted. Lower extremities wrapped. Objective - Vital Signs Vital signs: Vital Signs Temp 97.8 F 08/23/22 20:38 Pulse 70 08/24/22 09:25 Resp 18 08/24/22 01:28 BP 150/76 08/23/22 23:56 Pulse Ox 98 08/24/22 09:10 FiO2 30 08/24/22 05:41 Intake & Output 08/23/22 08/24/22 08/24/22 18:59 06:59 18:59 Intake Total 540 118 Output Total 1100 300 Balance 540 -1100 -182 Intake: Oral 540 118 Output: Urine 1100 300 Other: Voiding Method Indwelling Catheter Indwelling Catheter ABP, PAP, CO, CI - Last Documented Arterial Blood Pressure 150/68 - Labs CBC & Chem 7: 08/21/22 06:04 08/22/22 18:44 Labs: Abnormal Lab Results - Last 24 Hours (Table) 08/23/22 08/23/22 08/23/22 Range/Units 11:49 16:24 20:54 POC Glucose (mg/dL) 309 H 281 H 296 H (70-110) mg/dL 08/23/22 08/24/22 Range/Units 23:50 05:51 POC Glucose (mg/dL) 316 H 233 H (70-110) mg/dL Assessment and Plan Plan: Assessment: 1. Acute kidney injury secondary to ATN secondary to shock, septic. Also component of contrast-induced acute kidney injury. Now nonoliguric. Creatinine 7.27 on admission - 1.27 dated 08/13/2022. Creatinine in May 2022 as low as 0.87. No hydronephrosis noted on imaging. Status post hemodialysis 08/14/2022 due to persistent hyperkalemia. 2. Hyperkalemia secondary to acute kidney injury, spironolactone, lisinopril and potassium supplementation. Improved. 3. Lower extremity wounds on IV antibiotics. 4. Diabetes mellitus. 5. Metabolic acidosis secondary to acute kidney injury, metformin. Improved. 6. Lower extremity edema. Plan: Avoid nephrotoxins. Continue to monitor renal function and urine output. Add oral Lasix 40 mg once daily. Follow-up morning labs.
[2022-08-24 10:32] LABS: Calcium 8.3 mg/dL (8.4-10.2); Potassium 3.6 mmol/L (3.5-5.1)
[2022-08-24 11:30] LABS: Glucose,Whole Blood 238 mg/dL (70-110)
[2022-08-24] MEDS: ATORVASTATIN 80 MG TAB PO SCH (12:17)
[2022-08-24] MEDS: DICYCLOMINE 20 MG TAB PO PRN ×2 (12:17→19:57)
[2022-08-24] MEDS: FUROSEMIDE 40 MG TAB PO SCH (12:17)
--- NOTE | 2022-08-24 15:42 | P.PN ---
Subjective Progress Note Date: 08/24/22 Principal diagnosis: Shortness of breath. Reevaluated today on 08/20/2022, patient remains in the ICU, he was extubated yesterday, tolerated the extubation well, presently on 4 L nasal cannula, resting in bed, does not seem to be in any distress. Patient used his BiPAP last night with IPAP of 18 and EPAP 14 FiO2 30%. Continues to make good urine on his own and he remains in negative balance. He has at least 100 mL of urine output per hour. His hemodialysis catheter has been removed. His renal functioning is steadily improving. Chest x-ray continues to show evidence of interstitial edema. His pulmonary status remains marginal at best. CBC is basically unremarkable except for hemoglobin of 7.9 electrolytes are normal slightly low potassium being addressed as per protocol. BUN is 24 creatinine 1.70 Reevaluated today on 02/20/2023, patient remains in the ICU, however the patient has made a significant improvement in the last 2 days, extubated 2 days ago, presently on nasal cannula at 3 L/m, his hemodialysis catheter has been removed, patient is not requiring any hemodialysis. Renal functioning is steadily improving creatinine is down to 1.51 today. His IV fluids at KVO, patient continues to have BiPAP at bedside uses BiPAP at bedtime. Set at 18/14/50%, nonetheless he is on 3 L nasal cannula at present. Remains on antibiotics for his extensive cellulitis of lower extremities. And the patient is able to cough and suction his own secretions. No chest x-ray was done today, however the patient remains in a negative fluid balance, and diuresing well on his own without using any diuretics. WBC count is 5.2 hemoglobin is 8.8 electrolytes are normal BUN is 21 creatinine 1.51 The patient is seen today 08/22/2022 in follow-up on the selective care unit. He was transferred out of the ICU yesterday. He is currently awake and alert in no acute distress. Resting fairly comfortably in bed. Denies any worsening shortness of breath, cough or congestion. He is utilizing BiPAP 18/14 and 30% FiO2 at night which are his home settings. He is maintaining O2 saturations in the 90s on 2 L/m per nasal cannula currently. Lower extremity wound cultures were positive for Enterococcus faecalis VRE and Enterobacter cloacae. Sputum culture previously been positive for pseudomonas aeruginosa. Blood glucose 313. He is on a NovoLog sliding scale. He remains on DuoNeb inhalations. Antibiotics in the form of Zosyn. Anticoagulated with Eliquis. The patient is seen today 08/23/2022 in follow-up on the selective care unit. He is currently sitting up in bed. Awake and alert in no acute distress. Doing quite a bit better. He is maintaining good O2 saturations in the 90s on 2 L/m per nasal cannula. He does utilizes BiPAP at night 18/14 and 30% FiO2. Chest x-ray shows improvement and just residual mild congestive heart failure. No airspace consolidation. No pleural effusion. No pneumothorax. Dressings to lower extremities remain dry and intact. He is continued on Zosyn. He remains on bronchodilators. Anticoagulated with Eliquis. Progress note dated 08/24/2022. The patient is seen today 385. The patient is on BiPAP, with settings of 18/14, and 30% FiO2. When not on BiPAP, the patient's getting 2 L of oxygen. The patient appears to be relatively stable. His lower extremities are wrapped with Speedy bandages. The patient's sodium is 137, potassium 3.6, chlorides 100, CO2 31, BUN 23, and creatinine 1.4. Glucose 246. Sputum from August 14 showed evidence of Pseudomonas aeruginosa, and wound cultures from the left leg showed evidence of Enterobacter cloacae and enterococcus faecalis. Currently, the patient is on Zosyn. Objective - Vital Signs Vital signs: Vital Signs Temp 97.8 F 08/23/22 20:38 Pulse 64 08/24/22 13:39 Resp 18 08/24/22 13:39 BP 150/76 08/23/22 23:56 Pulse Ox 98 08/24/22 09:10 FiO2 30 08/24/22 05:41 Intake & Output 08/23/22 08/24/22 08/24/22 18:59 06:59 18:59 Intake Total 540 236 Output Total 1100 300 Balance 540 -1100 -64 Intake: Oral 540 236 Output: Urine 1100 300 Other: Voiding Method Indwelling Catheter Indwelling Catheter Indwelling Catheter ABP, PAP, CO, CI - Last Documented Arterial Blood Pressure 150/68 - Exam No acute distress, oriented 3. Currently on 2 L, and receiving a breathing treatment. HEENT examination is grossly unremarkable. Neck supple. Full range of motion. No adenopathy thyromegaly or neck vein distention. Cardiovascular examination reveals regular rhythm rate. S1-S2 normal. No S3 or S4. No discernible murmur noted. Heart sounds are distant. Heart rate 64 bpm. Lungs reveal scattered bilateral rhonchi. No wheezes. No crackles. Breath sounds are equal bilaterally. 2 L saturation is 98%. Abdomen soft bowel sounds are heard. No masses or tenderness. Extremities are wrapped with Speedy bandages. Skin is without rash or lesion. Neurologic examination is brief but nonfocal. - Labs CBC & Chem 7: 08/21/22 06:04 08/24/22 09:01 Labs: Abnormal Lab Results - Last 24 Hours (Table) 08/23/22 08/23/22 08/23/22 Range/Units 16:24 20:54 23:50 Carbon Dioxide (22-30) mmol/L BUN (9-20) mg/dL Creatinine (0.66-1.25) mg/dL Glucose (74-99) mg/dL POC Glucose (mg/dL) 281 H 296 H 316 H (70-110) mg/dL Calcium (8.4-10.2) mg/dL 08/24/22 08/24/22 08/24/22 Range/Units 05:51 09:01 11:26 Carbon Dioxide 31 H (22-30) mmol/L BUN 23 H (9-20) mg/dL Creatinine 1.44 H (0.66-1.25) mg/dL Glucose 246 H (74-99) mg/dL POC Glucose (mg/dL) 233 H 238 H (70-110) mg/dL Calcium 8.3 L (8.4-10.2) mg/dL Assessment and Plan Assessment: Acute hypoxic and hypercapnic respiratory failure, multifactorial. Patient was extubated on 08/19/2022. Stable on 2 L nasal cannula. Acute pseudomonal pneumonia. Patient remains on Zosyn. Acute on chronic diastolic congestive heart failure. Acute fluid overload secondary to acute renal failure. Acute on chronic kidney disease with diabetic nephropathy and hypertensive nephropathy. Chronic diabetic lower extremities ulcers with possible osteomyelitis/left lower extremity. Hypotension secondary to sepsis/septic shock. Severe obstructive sleep apnea syndrome, on home BiPAP /%. Obesity/hypoventilation syndrome. Morbid obesity with BMI of 51.8. Chronic pain syndrome, patient with pain pump. History of DVT. History of factor V deficiency/hypercoagulable state. Hypertension with hypertensive nephropathy/nephrosclerosis. Chronic back pain. Anemia of chronic disease. History of diverticulosis. Plan: Plan dated 08/24/2022. The patient appears to be relatively stable. He's currently on 2 L. He continues on Zosyn for his infections. His lower extremities are wrapped. He u ses BiPAP at nighttime, with his current home settings. The patient will go back to the extended care facility upon discharge. Labs, x-rays, and medications are reviewed. Overall prognosis remains guarded. Time with Patient: Less than 30
[2022-08-24] MEDS: SODIUM CHLORIDE 0.9% 500 ML 500 ML IV SCH (15:43)
[2022-08-24 16:47] LABS: Glucose,Whole Blood 225 mg/dL (70-110)
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
[2022-08-24] MEDS: COLLAGENASE 250 UNIT/GM OINTMENT 30 GM TUBE TOPICAL SCH (17:58)
[2022-08-24] MEDS: bisacodyL 10 MG SUPP RECTAL PRN (18:06)
[2022-08-24] MEDS: cloNIDine HCL 0.1 MG TAB PO SCH (19:57)
[2022-08-24] MEDS: FAMOTIDINE 20 MG TAB PO SCH (19:57)
[2022-08-24] MEDS: INSULIN DETEMIR (LEVEMIR) 100 UNIT/ML SYR SQ SCH (19:59)
[2022-08-24] MEDS: LATANOPROST 0.005% OPHTH DROPS 2.5 ML BTL BOTH EYES SCH (19:59)
[2022-08-24 20:00] LABS: Glucose,Whole Blood 302 mg/dL (70-110)
--- NOTE | 2022-08-24 21:56 | P.PN ---
Subjective Progress Note Date: 08/24/22 Principal diagnosis: Pneumonia and left leg wound Patient is a 52-year old male with a past medical history significant for diabetes mellitus hypertension hyperlipidemia DVT, with a recent admission to [facility] from 07/31 to 08/07/2022 apparently the patient did have a wound to the left lower extremity to the anterior jacob and a wound on the plantar aspect of his left foot that was evaluated and treated by Dr. Coleman, with a wound VAC with a readmission to the hospital with acute respiratory failure requiring intubation did have a fever and concerning for pneumonia sputum is growing Pseudomonas and patient also have acute renal failure requiring dialysis. Left leg wound VAC was discontinued on 08/18/2019 as he did have significant slough tissue at the base of the wound per the wound care nurse, patient was extubated on 08/19/2022 On today's evaluation had that is 08/25/2019, the patient continues to be afebrile, the patient is breathing comfortable on 2 L nasal cannula oxygen , the patient denies any chest pain , the patient denies any worsening cough or sputum production, the patient denies any nausea no vomiting no abdominal pain, and denies pain to the left lower extremity Objective - Vital Signs Vital signs: Vital Signs Temp 97.8 F 08/23/22 20:38 Pulse 70 08/24/22 12:19 Resp 18 08/24/22 01:28 BP 150/76 08/23/22 23:56 Pulse Ox 98 08/24/22 09:10 FiO2 30 08/24/22 05:41 Intake & Output 08/23/22 08/24/22 08/24/22 18:59 06:59 18:59 Intake Total 540 118 Output Total 1100 300 Balance 540 -1100 -182 Intake: Oral 540 118 Output: Urine 1100 300 Other: Voiding Method Indwelling Catheter Indwelling Catheter ABP, PAP, CO, CI - Last Documented Arterial Blood Pressure 150/68 - Exam GENERAL DESCRIPTION: A middle-age male lying in bed in no distress RESPIRATORY SYSTEM: Unlabored breathing , decreased breath sounds at bases HEART: S1 S2 regular rate and rhythm , ABDOMEN: Soft , no tenderness EXTREMITIES: Diffuse swelling to bilateral lower extremity with a wound to the left jacob currently dressed no drainage on the dressing - Labs CBC & Chem 7: 08/21/22 06:04 08/24/22 09:01 Labs: Abnormal Lab Results - Last 24 Hours (Table) 08/23/22 08/23/22 08/23/22 Range/Units 16:24 20:54 23:50 Carbon Dioxide (22-30) mmol/L BUN (9-20) mg/dL Creatinine (0.66-1.25) mg/dL Glucose (74-99) mg/dL POC Glucose (mg/dL) 281 H 296 H 316 H (70-110) mg/dL Calcium (8.4-10.2) mg/dL 08/24/22 08/24/22 08/24/22 Range/Units 05:51 09:01 11:26 Carbon Dioxide 31 H (22-30) mmol/L BUN 23 H (9-20) mg/dL Creatinine 1.44 H (0.66-1.25) mg/dL Glucose 246 H (74-99) mg/dL POC Glucose (mg/dL) 233 H 238 H (70-110) mg/dL Calcium 8.3 L (8.4-10.2) mg/dL Assessment and Plan (1) Pseudomonas pneumonia Current Visit: Yes Status: Acute Code(s): J15.1 - PNEUMONIA DUE TO PSEUDOMONAS SNOMED Code(s): 21740279 (2) Fever Current Visit: No Status: Acute Code(s): R50.9 - FEVER, UNSPECIFIED SNOMED Code(s): 590159204 Plan: 1patient was in the hospital with sepsis in this patient with a fever elevated white count source is likely multifactorial with concern for possible component of pneumonia sputum showing Pseudomonas and the patient also have multiple wound especially left lower extremity and concern for possible secondary cellulitis 2-the patient blood cultures has been negative so far, sputum is growing Pseudomonas, left leg wound culture grew Enterobacter that is sensitive to Zosyn , cultures also growing VRE however that is sensitive to penicillin and should be covered with Zosyn 3-patient local wound care to the left leg with Santyl followed by moist dressing, the patient is awaiting surgical debridement by his glass sagger 4- the patient to continue with the current treatment of Zosyn which will cover for all the 3 pathogens grown and will continue with the Zosyn for another 10 days on discharge Time with Patient: Less than 30
[2022-08-24 23:59] LABS: Glucose,Whole Blood 295 mg/dL (70-110)
[2022-08-25] MEDS: INSULIN ASPART (NovoLOG) 100 UNIT/ML VIAL SQ SCH ×4 (00:35→17:14)
[2022-08-25] MEDS: PIPERACILLIN-TAZOBACTAM 3.375 GM in SODIUM CHLORIDE 0.9% 100 ML IVPB SCH ×4 (00:35→22:59)
[2022-08-25 06:30] LABS: Glucose,Whole Blood 231 mg/dL (70-110)
[2022-08-25] MEDS: PSYLLIUM HUSK 100% 6 GM PACKET PO SCH ×2 (09:19→21:11)
[2022-08-25] MEDS: NON FORMULARY DRUG (Lubiprostone [Amitiza] 24 MCG Capsule) PO SCH ×2 (09:19→21:11)
[2022-08-25] MEDS: ATORVASTATIN 80 MG TAB PO SCH (09:32)
[2022-08-25] MEDS: SIMETHICONE 80 MG CHEWABLE PO SCH ×4 (09:33→21:11)
[2022-08-25] MEDS: FUROSEMIDE 40 MG TAB PO SCH (09:33)
[2022-08-25] MEDS: DULoxetine HCL 30 MG CAPSULE.DR PO SCH (09:33)
[2022-08-25] MEDS: LACTULOSE 20 GM/30 ML CUP PO SCH ×2 (09:33→21:11)
[2022-08-25] MEDS: carBAMazepine 100 MG TAB.ER.12H PO SCH (09:33)
[2022-08-25] MEDS: TAMSULOSIN 0.4 MG CAP.ER.24H PO SCH (09:33)
[2022-08-25] MEDS: APIXABAN 2.5 MG TABLET PO SCH ×2 (09:33→21:11)
[2022-08-25] MEDS: cloNIDine HCL 0.1 MG TAB PO SCH ×2 (09:33→20:37)
[2022-08-25] MEDS: COLLAGENASE 250 UNIT/GM OINTMENT 30 GM TUBE TOPICAL SCH (09:37)
[2022-08-25] MEDS: IPRATROPIUM-ALBUTEROL 3 ML NEB INHALATION SCH ×4 (09:48→20:30)
--- NOTE | 2022-08-25 10:00 | P.PN ---
Subjective Patient is seen in follow-up for acute kidney injury. Underwent hemodialysis 08/14/2022 for hyperkalemia. Dialysis catheter now removed. Creatinine 1.44 yesterday. On nasal cannula. Denies chest pain or shortness of breath. Vital signs are stable. General: Resting in bed. HEENT: On nasal cannula. LUNGS: No audible rhonchi or wheezes. HEART: Rate and Rhythm are regular. ABDOMEN: Obese. EXTREMITITES: Chronic changes noted. Lower extremities wrapped. Objective - Vital Signs Vital signs: Vital Signs Temp 97.6 F 08/25/22 03:13 Pulse 56 L 08/25/22 09:50 Resp 19 08/25/22 03:13 BP 109/67 08/25/22 03:13 Pulse Ox 97 08/25/22 09:50 FiO2 30 08/25/22 04:37 Intake & Output 08/24/22 08/25/22 08/25/22 18:59 06:59 18:59 Intake Total 476 180 Output Total 1550 550 Balance -1074 -550 180 Intake: Oral 476 180 Output: Urine 1550 550 Uretheral (Castillo) 350 Other: Voiding Method Indwelling Catheter Indwelling Catheter # Bowel Movements 2 ABP, PAP, CO, CI - Last Documented Arterial Blood Pressure 150/68 - Labs CBC & Chem 7: 08/21/22 06:04 08/24/22 09:01 Labs: Abnormal Lab Results - Last 24 Hours (Table) 08/24/22 08/24/22 08/24/22 Range/Units 09:01 11:26 16:42 Carbon Dioxide 31 H (22-30) mmol/L BUN 23 H (9-20) mg/dL Creatinine 1.44 H (0.66-1.25) mg/dL Glucose 246 H (74-99) mg/dL POC Glucose (mg/dL) 238 H 225 H (70-110) mg/dL Calcium 8.3 L (8.4-10.2) mg/dL 08/24/22 08/24/22 08/25/22 Range/Units 19:57 23:58 06:28 Carbon Dioxide (22-30) mmol/L BUN (9-20) mg/dL Creatinine (0.66-1.25) mg/dL Glucose (74-99) mg/dL POC Glucose (mg/dL) 302 H 295 H 231 H (70-110) mg/dL Calcium (8.4-10.2) mg/dL Assessment and Plan Plan: Assessment: 1. Acute kidney injury secondary to ATN secondary to shock, septic. Also component of contrast-induced acute kidney injury. Now nonoliguric. Creatinine 7.27 on admission - 1.44 yesterday. Creatinine in May 2022 as low as 0.87. No hydronephrosis noted on imaging. Status post hemodialysis 08/14/2022 due to persistent hyperkalemia. 2. Hyperkalemia secondary to acute kidney injury, spironolactone, lisinopril and potassium supplementation. Improved. 3. Lower extremity wounds on IV antibiotics. 4. Diabetes mellitus. 5. Metabolic acidosis secondary to acute kidney injury, metformin. Improved. 6. Lower extremity edema. Plan: Avoid nephrotoxins. Continue to monitor renal function and urine output. Maintain oral Lasix. DC Castillo catheter and monitor for urinary retention. Follow-up morning labs. Hold clonidine for systolic blood pressure less than 120.
[2022-08-25 10:50] LABS: Calcium 8.5 mg/dL (8.4-10.2); Magnesium 1.6 mg/dL (1.6-2.3); Potassium 3.7 mmol/L (3.5-5.1)
[2022-08-25 11:44] LABS: Glucose,Whole Blood 248 mg/dL (70-110)
--- NOTE | 2022-08-25 12:34 | P.PN ---
Subjective Progress Note Date: 08/25/22 Principal diagnosis: Shortness of breath. Reevaluated today on 08/20/2022, patient remains in the ICU, he was extubated yesterday, tolerated the extubation well, presently on 4 L nasal cannula, resting in bed, does not seem to be in any distress. Patient used his BiPAP last night with IPAP of 18 and EPAP 14 FiO2 30%. Continues to make good urine on his own and he remains in negative balance. He has at least 100 mL of urine output per hour. His hemodialysis catheter has been removed. His renal functioning is steadily improving. Chest x-ray continues to show evidence of interstitial edema. His pulmonary status remains marginal at best. CBC is basically unremarkable except for hemoglobin of 7.9 electrolytes are normal slightly low potassium being addressed as per protocol. BUN is 24 creatinine 1.70 Reevaluated today on 02/20/2023, patient remains in the ICU, however the patient has made a significant improvement in the last 2 days, extubated 2 days ago, presently on nasal cannula at 3 L/m, his hemodialysis catheter has been removed, patient is not requiring any hemodialysis. Renal functioning is steadily improving creatinine is down to 1.51 today. His IV fluids at KVO, patient continues to have BiPAP at bedside uses BiPAP at bedtime. Set at 18/14/50%, nonetheless he is on 3 L nasal cannula at present. Remains on antibiotics for his extensive cellulitis of lower extremities. And the patient is able to cough and suction his own secretions. No chest x-ray was done today, however the patient remains in a negative fluid balance, and diuresing well on his own without using any diuretics. WBC count is 5.2 hemoglobin is 8.8 electrolytes are normal BUN is 21 creatinine 1.51 The patient is seen today 08/22/2022 in follow-up on the selective care unit. He was transferred out of the ICU yesterday. He is currently awake and alert in no acute distress. Resting fairly comfortably in bed. Denies any worsening shortness of breath, cough or congestion. He is utilizing BiPAP 18/14 and 30% FiO2 at night which are his home settings. He is maintaining O2 saturations in the 90s on 2 L/m per nasal cannula currently. Lower extremity wound cultures were positive for Enterococcus faecalis VRE and Enterobacter cloacae. Sputum culture previously been positive for pseudomonas aeruginosa. Blood glucose 313. He is on a NovoLog sliding scale. He remains on DuoNeb inhalations. Antibiotics in the form of Zosyn. Anticoagulated with Eliquis. The patient is seen today 08/23/2022 in follow-up on the selective care unit. He is currently sitting up in bed. Awake and alert in no acute distress. Doing quite a bit better. He is maintaining good O2 saturations in the 90s on 2 L/m per nasal cannula. He does utilizes BiPAP at night 18/14 and 30% FiO2. Chest x-ray shows improvement and just residual mild congestive heart failure. No airspace consolidation. No pleural effusion. No pneumothorax. Dressings to lower extremities remain dry and intact. He is continued on Zosyn. He remains on bronchodilators. Anticoagulated with Eliquis. Progress note dated 08/24/2022. The patient is seen today 385. The patient is on BiPAP, with settings of 18/14, and 30% FiO2. When not on BiPAP, the patient's getting 2 L of oxygen. The patient appears to be relatively stable. His lower extremities are wrapped with Speedy bandages. The patient's sodium is 137, potassium 3.6, chlorides 100, CO2 31, BUN 23, and creatinine 1.4. Glucose 246. Sputum from August 14 showed evidence of Pseudomonas aeruginosa, and wound cultures from the left leg showed evidence of Enterobacter cloacae and enterococcus faecalis. Currently, the patient is on Zosyn. Progress note dated 08/25/2022. The patient is again seen today in room 385. The patient is currently 3 L nasal cannula. The patient is not receiving any IV fluids. The patient remains on Zosyn. Clinically, he is feeling much better. Labs today include a sodium 136, potassium 3.7, chlorides 97, CO2 31, BUN 21, and creatinine 1.32. Glucose 230. Sputum Gram stain was positive for pseudomonas aeruginosa, and the patient's wound cultures were positive for Enterobacter cloacae, and Enterococcus faecalis Objective - Vital Signs Vital signs: Vital Signs Temp 97.0 F L 08/25/22 08:15 Pulse 62 08/25/22 10:02 Resp 17 08/25/22 08:15 BP 127/69 08/25/22 08:15 Pulse Ox 97 08/25/22 09:50 FiO2 30 08/25/22 04:37 Intake & Output 08/24/22 08/25/22 08/25/22 18:59 06:59 18:59 Intake Total 476 180 Output Total 1550 550 Balance -1074 -550 180 Intake: Oral 476 180 Output: Urine 1550 550 Uretheral (Castillo) 350 Other: Voiding Method Indwelling Catheter Indwelling Catheter # Bowel Movements 2 ABP, PAP, CO, CI - Last Documented Arterial Blood Pressure 150/68 - Exam No acute distress, oriented 3. Currently on 3 L, and receiving a breathing treatment. HEENT examination is grossly unremarkable. Neck supple. Full range of motion. No adenopathy thyromegaly or neck vein distention. Cardiovascular examination reveals regular rhythm rate. S1-S2 normal. No S3 or S4. No discernible murmur noted. Heart sounds are distant. Heart rate 62 bpm. Lungs reveal scattered bilateral rhonchi. No wheezes. No crackles. Breath sounds are equal bilaterally. 3 L saturation is 97%. Abdomen soft bowel sounds are heard. No masses or tenderness. Extremities are wrapped with Speedy bandages. Skin is without rash or lesion. Neurologic examination is brief but nonfocal. - Labs CBC & Chem 7: 08/21/22 06:04 08/25/22 10:08 Labs: Abnormal Lab Results - Last 24 Hours (Table) 08/24/22 08/24/22 08/24/22 Range/Units 16:42 19:57 23:58 Sodium (137-145) mmol/L Chloride (98-107) mmol/L Carbon Dioxide (22-30) mmol/L BUN (9-20) mg/dL Creatinine (0.66-1.25) mg/dL Glucose (74-99) mg/dL POC Glucose (mg/dL) 225 H 302 H 295 H (70-110) mg/dL 08/25/22 08/25/22 08/25/22 Range/Units 06:28 10:08 11:43 Sodium 136 L (137-145) mmol/L Chloride 97 L (98-107) mmol/L Carbon Dioxide 31 H (22-30) mmol/L BUN 21 H (9-20) mg/dL Creatinine 1.32 H (0.66-1.25) mg/dL Glucose 230 H (74-99) mg/dL POC Glucose (mg/dL) 231 H 248 H (70-110) mg/dL Assessment and Plan Assessment: Acute hypoxic and hypercapnic respiratory failure, multifactorial. Patient was extubated on 08/19/2022. Stable on 3 L nasal cannula. Acute pseudomonal pneumonia. Patient remains on Zosyn. Acute on chronic diastolic congestive heart failure. Acute fluid overload secondary to acute renal failure. Acute on chronic kidney disease with diabetic nephropathy and hypertensive nephropathy. Chronic diabetic lower extremities ulcers with possible osteomyelitis/left lower extremity. Hypotension secondary to sepsis/septic shock. Severe obstructive sleep apnea syndrome, on home BiPAP 18//30%. Obesity/hypoventilation syndrome. Morbid obesity with BMI of 51.8. Chronic pain syndrome, patient with pain pump. History of DVT. History of factor V deficiency/hypercoagulable state. Hypertension with hypertensive nephropathy/nephrosclerosis. Chronic back pain. Anemia of chronic disease. History of diverticulosis. Plan: Plan dated 08/24/2022. The patient appears to be relatively stable. He's currently on 2 L. He continues on Zosyn for his infections. His lower extremities are wrapped. He uses BiPAP at nighttime, with his current home settings. The patient will go back to the extended care facility upon discharge. Labs, x-rays, and medications are reviewed. Overall prognosis remains guarded. Plan dated 08/25/2022. Labs, x-rays, and medications are reviewed. The patient remains on Zosyn. Patient appears to be relatively stable. His lower extremities are wrapped. He does use BiPAP at nighttime, with his current home settings. The patient will be discharged back to the extended care facility, upon discharge. We will follow the patient, and make recommendations along the way. Time with Patient: Less than 30
[2022-08-25 13:01] VITALS: BMI 30.4
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
[2022-08-25] MEDS ORDERED: POTASSIUM CHLORIDE ER 20 MEQ TAB.ER PO STA (14:44)
--- NOTE | 2022-08-25 16:08 | P.PN ---
Subjective Progress Note Date: 08/25/22 Principal diagnosis: Pneumonia and left leg wound Patient is a 52-year old male with a past medical history significant for diabetes mellitus hypertension hyperlipidemia DVT, with a recent admission to [facility] from 07/31 to 08/07/2022 apparently the patient did have a wound to the left lower extremity to the anterior jacob and a wound on the plantar aspect of his left foot that was evaluated and treated by Dr. Coleman, with a wound VAC with a readmission to the hospital with acute respiratory failure requiring intubation did have a fever and concerning for pneumonia sputum is growing Pseudomonas and patient also have acute renal failure requiring dialysis. Left leg wound VAC was discontinued on 08/18/2019 as he did have significant slough tissue at the base of the wound per the wound care nurse, patient was extubated on 08/19/2022 On today's evaluation had that is 08/26/2019, the patient continues to be afebrile, the patient is breathing comfortable on 2 L nasal cannula oxygen , the patient denies any chest pain , patient did have occasional cough no significant sputum production, the patient denies any nausea no vomiting no abdominal pain, and denies pain to the left lower extremity Objective - Vital Signs Vital signs: Vital Signs Temp 97.0 F L 08/25/22 08:15 Pulse 60 08/25/22 14:00 Resp 17 08/25/22 14:00 BP 127/69 08/25/22 08:15 Pulse Ox 97 08/25/22 09:50 FiO2 30 08/25/22 04:37 Intake & Output 08/24/22 08/25/22 08/25/22 18:59 06:59 18:59 Intake Total 476 360 Output Total 1550 550 400 Balance -1074 -550 -40 Weight 85.5 kg Intake: Oral 476 360 Output: Urine 1550 550 400 Uretheral (Castillo) 350 Other: Voiding Method Indwelling Catheter Indwelling Catheter Indwelling Catheter # Bowel Movements 2 ABP, PAP, CO, CI - Last Documented Arterial Blood Pressure 150/68 - Exam GENERAL DESCRIPTION: A middle-age male lying in bed in no distress RESPIRATORY SYSTEM: Unlabored breathing , decreased breath sounds at bases HEART: S1 S2 regular rate and rhythm , ABDOMEN: Soft , no tenderness EXTREMITIES: Diffuse swelling to bilateral lower extremity with a wound to the left jacob currently dressed no drainage on the dressing - Labs CBC & Chem 7: 08/21/22 06:04 08/25/22 10:08 Labs: Abnormal Lab Results - Last 24 Hours (Table) 08/24/22 08/24/22 08/24/22 Range/Units 16:42 19:57 23:58 Sodium (137-145) mmol/L Chloride (98-107) mmol/L Carbon Dioxide (22-30) mmol/L BUN (9-20) mg/dL Creatinine (0.66-1.25) mg/dL Glucose (74-99) mg/dL POC Glucose (mg/dL) 225 H 302 H 295 H (70-110) mg/dL 08/25/22 08/25/22 08/25/22 Range/Units 06:28 10:08 11:43 Sodium 136 L (137-145) mmol/L Chloride 97 L (98-107) mmol/L Carbon Dioxide 31 H (22-30) mmol/L BUN 21 H (9-20) mg/dL Creatinine 1.32 H (0.66-1.25) mg/dL Glucose 230 H (74-99) mg/dL POC Glucose (mg/dL) 231 H 248 H (70-110) mg/dL Assessment and Plan (1) Pseudomonas pneumonia Current Visit: Yes Status: Acute Code(s): J15.1 - PNEUMONIA DUE TO PSEUDOMONAS SNOMED Code(s): 77220171 (2) Fever Current Visit: No Status: Acute Code(s): R50.9 - FEVER, UNSPECIFIED SNOMED Code(s): 087266471 Plan: 1patient was in the hospital with sepsis in this patient with a fever elevated white count source is likely multifactorial with concern for possible component of pneumonia sputum showing Pseudomonas and the patient also have multiple wound especially left lower extremity and concern for possible secondary cellulitis 2-the patient blood cultures has been negative so far, sputum is growing Pseudomonas, left leg wound culture grew Enterobacter that is sensitive to Zosyn , cultures also growing VRE however that is sensitive to penicillin and should be covered with Zosyn 3-patient local wound care to the left leg with Santyl followed by moist dress ing, 4- the patient to continue with the current treatment of Zosyn which will cover for all the 3 pathogens grown and continued on discharge and close outpatient follow-up Time with Patient: Less than 30
[2022-08-25 16:49] LABS: Glucose,Whole Blood 267 mg/dL (70-110)
[2022-08-25] MEDS: SODIUM CHLORIDE 0.9% 500 ML 500 ML IV SCH (17:14)
[2022-08-25] MEDS: HYDROcodone/APAP 10-325MG 1 EACH TAB PO PRN (18:25)
[2022-08-25 20:00] LABS: Glucose,Whole Blood 260 mg/dL (70-110)
[2022-08-25] MEDS: INSULIN DETEMIR (LEVEMIR) 100 UNIT/ML SYR SQ SCH (21:11)
[2022-08-25] MEDS: FAMOTIDINE 20 MG TAB PO SCH (21:11)
[2022-08-25] MEDS: MAGNESIUM OXIDE 400 MG TAB PO SCH (21:11)
[2022-08-25] MEDS: LATANOPROST 0.005% OPHTH DROPS 2.5 ML BTL BOTH EYES SCH (21:14)
[2022-08-26 00:03] LABS: Glucose,Whole Blood 308 mg/dL (70-110)
[2022-08-26] MEDS: INSULIN ASPART (NovoLOG) 100 UNIT/ML VIAL SQ SCH ×3 (00:09→12:29)
[2022-08-26 06:09] LABS: Glucose,Whole Blood 209 mg/dL (70-110)
[2022-08-26] MEDS: IPRATROPIUM-ALBUTEROL 3 ML NEB INHALATION SCH ×2 (08:12→11:36)
[2022-08-26 09:24] VITALS: TEMP 98.1
[2022-08-26] MEDS: PIPERACILLIN-TAZOBACTAM 3.375 GM in SODIUM CHLORIDE 0.9% 100 ML IVPB SCH (09:24)
[2022-08-26] MEDS: DULoxetine HCL 30 MG CAPSULE.DR PO SCH (09:25)
[2022-08-26] MEDS: ATORVASTATIN 80 MG TAB PO SCH (09:25)
[2022-08-26] MEDS: TAMSULOSIN 0.4 MG CAP.ER.24H PO SCH (09:25)
[2022-08-26] MEDS: MAGNESIUM OXIDE 400 MG TAB PO SCH (09:25)
[2022-08-26] MEDS: cloNIDine HCL 0.1 MG TAB PO SCH ×2 (09:25→09:31)
[2022-08-26] MEDS: FUROSEMIDE 40 MG TAB PO SCH (09:25)
[2022-08-26] MEDS: APIXABAN 2.5 MG TABLET PO SCH (09:25)
[2022-08-26] MEDS: carBAMazepine 100 MG TAB.ER.12H PO SCH (09:25)
[2022-08-26] MEDS: LACTULOSE 20 GM/30 ML CUP PO SCH (09:26)
[2022-08-26] MEDS: COLLAGENASE 250 UNIT/GM OINTMENT 30 GM TUBE TOPICAL SCH (09:26)
[2022-08-26] MEDS: SIMETHICONE 80 MG CHEWABLE PO SCH ×2 (09:26→12:29)
[2022-08-26] MEDS: PSYLLIUM HUSK 100% 6 GM PACKET PO SCH (09:26)
[2022-08-26] MEDS: NON FORMULARY DRUG (Lubiprostone [Amitiza] 24 MCG Capsule) PO SCH (09:31)
[2022-08-26 10:48] LABS: Calcium 8.4 mg/dL (8.4-10.2); Magnesium 1.7 mg/dL (1.6-2.3); Potassium 3.9 mmol/L (3.5-5.1)
--- NOTE | 2022-08-26 10:48 | P.PN ---
Subjective Patient is seen in follow-up for acute kidney injury. Underwent hemodialysis 08/14/2022 for hyperkalemia. Dialysis catheter now removed. Creatinine 1.32 yesterday. On nasal cannula. Denies chest pain or shortness of breath. Castillo catheter removed yesterday. Has been voiding on his own states small amount. Bladder scans have been negative. Vital signs are stable. General: Resting in bed. HEENT: On nasal cannula. LUNGS: No audible rhonchi or wheezes. HEART: Rate and Rhythm are regular. ABDOMEN: Obese. EXTREMITITES: Chronic changes noted. Lower extremities wrapped. Objective - Vital Signs Vital signs: Vital Signs Temp 98.1 F 08/26/22 08:00 Pulse 68 08/26/22 08:25 Resp 16 08/26/22 08:00 BP 107/64 08/26/22 08:00 Pulse Ox 98 08/26/22 08:12 FiO2 30 08/26/22 04:18 Intake & Output 08/25/22 08/26/22 08/26/22 18:59 06:59 18:59 Intake Total 540 118 Output Total 750 150 Balance -210 -150 118 Weight 85.5 kg Intake: Oral 540 118 Output: Urine 750 150 Uretheral (Castillo) 350 Other: Voiding Method Indwelling Catheter Urinal ABP, PAP, CO, CI - Last Documented Arterial Blood Pressure 150/68 - Labs CBC & Chem 7: 08/21/22 06:04 08/25/22 10:08 Labs: Abnormal Lab Results - Last 24 Hours (Table) 08/25/22 08/25/22 08/25/22 Range/Units 10:08 11:43 16:48 Sodium 136 L (137-145) mmol/L Chloride 97 L (98-107) mmol/L Carbon Dioxide 31 H (22-30) mmol/L BUN 21 H (9-20) mg/dL Creatinine 1.32 H (0.66-1.25) mg/dL Glucose 230 H (74-99) mg/dL POC Glucose (mg/dL) 248 H 267 H (70-110) mg/dL 08/25/22 08/26/22 08/26/22 Range/Units 19:58 00:01 06:02 Sodium (137-145) mmol/L Chloride (98-107) mmol/L Carbon Dioxide (22-30) mmol/L BUN (9-20) mg/dL Creatinine (0.66-1.25) mg/dL Glucose (74-99) mg/dL POC Glucose (mg/dL) 260 H 308 H 209 H (70-110) mg/dL Assessment and Plan Plan: Assessment: 1. Acute kidney injury secondary to ATN secondary to shock, septic. Also component of contrast-induced acute kidney injury. Now nonoliguric. Creatinine 7.27 on admission - 1.32 yesterday. Creatinine in May 2022 as low as 0.87. No hydronephrosis noted on imaging. Status post hemodialysis 08/14/2022 due to persistent hyperkalemia. 2. Hyperkalemia secondary to acute kidney injury, spironolactone, lisinopril and potassium supplementation. Improved. 3. Lower extremity wounds on IV antibiotics. 4. Diabetes mellitus. 5. Metabolic acidosis secondary to acute kidney injury, metformin. Improved. 6. Lower extremity edema. Plan: Avoid nephrotoxins. Continue to monitor renal function and urine output. Maintain oral Lasix. Continue to monitor bladder scans to make sure no urinary retention. Follow-up morning labs. Hold clonidine for systolic blood pressure less than 120.
[2022-08-26 12:03] LABS: Glucose,Whole Blood 245 mg/dL (70-110)
[2022-08-26 12:29] VITALS: BP 123/70; PULSE 71; RESP 18
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
--- NOTE | 2022-08-26 14:27 | P.PN ---
Subjective Progress Note Date: 08/26/22 This is a morbidly obese 53-year-old male patient who arrived to us from the [facility]. The patient was the hospital and was discharged to the [facility] on 08/07/2022. He has multiple medical problems and comorbidities. He is morbidly obese with a body mass index of 49. He is diabetic and his blood sugars have been poorly controlled and he has a diabetic ones in his left lower extremity jacob and this is a deep wound reaching his bone. This has been evaluated by Dr. Coleman and the patient was given wound care treatment. He does have charcoal joints related to his diabetes mellitus. He does have a component of chronic kidney disease, stage III related to hypertensive nephrosclerosis. 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 Note that his previous creatinine has been in the range of 1.48 prior to him being discharged. Yesterday, the patient presented to the emergency department because of difficulties with ones. He initially denies having any other complaints. No reported fever or chills. The patient apparently told the emergency physician that he was unsure exactly why he was sent into the emergency. I'm going to check the [facility] records accordingly. Meanwhile, while in the emergency, the patient was found to be in acute kidney injury. He had significant abnormalities in his blood work and the patient had a initial the 119, creatinine of 7.2, sodium of 1:30, potassium of 7.3, bicarb of 20, lactic acid level of 3.2, troponin of 0.02, and his white cell count was at 9.2 with a hemoglobin 10.7 and a platelet count of 247. This was consistent with an acute kidney injury. At that point, nephrology was consulted. Arrangements were made for this patient to undergo dialysis as the patient was offered treatment for his hyperkalemia and he did not respond. In fact his repeat potassium was at 7.6. At that time, he was decided to dialyze this patient. Dialysis catheter was inserted in the right femoral vein. The patient while on dialysis was noted to be progressively more apneic. The blood gas was done and he was found to be in acute on top of chronic respiratory acidosis in addition to a component of metabolic acidosis. PH was at 7.16 with a pCO2 of 60 and pO2 of 84. It was decided to proceed with intubation mechanical ventilation to maintain his breathing. As such, the patient was intubated and he was sent to the intensive care unit. This morning, the patient remains intubated. He is on propofol running at 40 mcg/kg/m. He is calm and comfortable. He is on mechanical ventilator assist control mode at the rate of 20, tidal volume 600, FiO2 of 100% with a PEEP of 5. His peak airway pressure is 35. Follow-up blood gases showed a pH of 7.22 with a pCO2 of 51 and pO2 of 66. I reviewed the series of chest x-rays including the one that was done today. There is evidence of interstitial edema along with cardiomegaly. The orotracheal tube is in good location for now. The follow-up morning blood gases showed a pH of 7.22 with a pCO2 of 51 and pO2 of 66 and this was on FiO2 of 100%. At the same time, the patient became hypotensive. He is currently on norepinephrine running at 0.06 mcg/kg/m. IV fluids currently at normal saline at the rate of 75 mL an hour. He does not produce any urine output for the time being. He is afebrile for now. The findings on the case. The patient is receiving a full session of hemodialysis today. In fact, he is currently undergoing hemodialysis. Blood sugars from this morning was at 125, On today's evaluation of 08/15/2022, the patient is intubated on mechanical ventilator. He remains sedated on propofol running at 50 mcg/kg/m. His calm and comfortable and very much interested mechanical ventilator. He remains on assist-control mode at a rate of 26, tidal volume of 450, FiO2 of 70% with a PEEP of 8. Chest x-ray still showing interstitial edema consistent with CHF and volume overload. The tube is in a good location. The patient was given a triple-lumen catheter in his left IJ yesterday. Blood gas shows a pH of 7.36 with a pCO2 of 45 and pO2 of 76 and this was on FiO2 of 70%. No significant orotracheal secretions. The patient has mild leukocytosis with a white cell count of 12.4. He is on IV Zosyn as an empiric antibiotic coverage for now. Meanwhile, he underwent hemodialysis yesterday. His potassium level has dropped down to 4.8. On today's blood work, he has a BUN of 56 with a creatinine of 4.5. He has a Castillo catheter in place and the urine output is in order of 200 mL an hour as such his urine output has picked up and improves. The patient is being seen by nephrology. I'm not sure if we're proceeding with another session of hemodialysis today as the patient's urine output has improved. Further discussion with the with nephrology. Meanwhile, hemodynamically, he remains on low-dose pressors and norepinephrine is running at 0.09 mcg/kg/m. He remains on IV fluids at KVO. A wound VAC was applied to his left lower extremity. Sputum cultures and obtain a blood cultures were obtained and the results of those are still pending. He has not started enteral feeding yet. He is on NovoLog sliding scale coverage. He is also on long-term and coagulation with Eliquis at a dose of 2.5 mg twice a day. 08/16/2022, the patient remains intubated on a mechanical ventilator. He remains on propofol running at 50 mcg/kg/m his adequately sedated. He started spiking temperature as of this morning and a T-max was 101.3. As such, further fever workup is being done. Meanwhile, there is a concern that the patient may have a pneumonia on top of his CHF and fluid overload. Sputum is positive for Pseudomonas species and the patient is currently on IV Zosyn. The chest x-ray still showing interstitial infiltrates bilaterally, no consolidation. Blood gas from today shows a pH of 7.38 with episodes of 46 and pO2 of 97. As such, his oxygenation is improved compared to yesterday. He remains on the same ventilator settings with a assist-control mode at the rate of 26, tidal volume of 450, FiO2 of 70% and a PEEP of 8. Peak airway pressure is 40. He is not going to get dialyzed today as the patient is producing copious amount of urine output. I was told that his urine output at times is at high as 500 mL an hour. He is diuresing adequately. No diuretics for now. His BUN is a 50 with a creatinine of 4 and there is interval improvement in his kidney function. Sodium is at 138. The WBC count is at 8.8 with a hemoglobin 8.3 and a platelet count of 232. He is receiving enteral feeding for nutritional support. He was started on Nepro at the rate of 10 mL an hour. He remains on IV Zosyn. He is on low-dose norepinephrine at 0.05 mcg/kg/m. His cardiac rhythm is sinus. He remains on long-term and coagulation with Eliquis. He has a wound VAC applied to his left lower extremity as the patient has a deep wound in the anterior aspe ct of the left leg without any surrounding cellulitis. THE WOUND VAC IS IN ORDER OF 0 ML OVER THE PAST 24 HOURS. Reevaluated today on 08/17/2022, patient remains in the ICU, intubated and mechanically ventilated. Patient is on assist control rate of 26 tidal volume 450 FiO2 50% and PEEP of 8. Patient has been on mechanical ventilation since 08/13/2022, ABG showed a pO2 of 84 pCO2 45 pH of 7.45. Patient is still on relatively low dose of norepinephrine at 0.04 mcg/kg/m propofol at 50 by grams per kilo per minute IV fluid is at KVO. Urine output seems to be improving on its own without any intervention. Patient did have dialysis at one point. Continues to have a hemodialysis catheter in the right groin. Continues to have wound VAC applied to left lower extremity. And being followed closely by infectious disease and by podiatry for his lower extremity cellulitis. Chest x- ray continues to show bilateral interstitial edema/infiltrates. BNP level remains elevated at 6710. WBC count is 7.3 hemoglobin 8.2 basic metabolic profile is relatively normal renal functioning is improving creatinine is down to 2.96 today compared to 4.03 yesterday patient remains on Zosyn, sputum cultures have been positive for pseudomonas aeruginosa Reevaluated today on 08/18/2022, patient remains in the ICU, intubated and mechanically ventilated. He is on assist control rate of 26 tidal volume 450 FiO2 50% and PEEP of 8. ABG showed a pO2 of 84 pCO2 45 pH of 7.45. Hence his FiO2 was cut down to 45% and The PEEP at 8. Patient is requiring low-dose norepinephrine at 0.03 mcg/kg/m his IV fluids at KVO and he is diuresing on his own quite well. His chest x-ray is showing improvement in his interstitial edema. He is on propofol at 50 mcg/kg/m. Patient is also receiving vital HPI 20 mL per hour. WBC count is 6 hemoglobin 7.9 and hematocrit 24.1 his electrolytes are normal bicarb is 31, BUN is improving down to 33 and creatinine is steadily improving down to 2.34. Patient remains in negative balance of over 5 L in the last 3 days. Again his chest x-ray is steadily improving and his oxygenation is also improving. Reevaluated today on 08/19/2022, patient remains in the ICU, intubated and mechanically ventilated. Patient remains on assist control rate of 26 tidal volume 450 FiO2 45% and PEEP of 8 ABG showed a pO2 of 68 pCO2 46 pH of 7.44. Patient remains on propofol at 45 mcg/kg/m, remains on Zosyn, his off norepinephrine, and he continues to diurese well on his own without any intervention. Remains on vital HPI 35 mL per hour. Chest x-ray continues to show steady improvement in his interstitial edema. Patient remains in negative fluid balance over the last few days. Sitting the steady improvement, I went ahead and recommended holding sedation, I also recommended weaning parameters, and a trial of weaning if weaning parameters are excellent with a pressure support of 10 and CPAP. Shortly after, the ABG came back showing a pO2 of 167 pCO2 43 pH of 7.47, hence while I was in the ICU, I recommended extubation of the patient. Patient was extubated to BiPAP, he normally has BiPAP at home with 18/14/40% FiO2. Labs today showed steady renal improvement his BUN is down to 30 creatinine 1.95, Electrolytesenc are normal. Reevaluated today on 08/20/2022, patient remains in the ICU, he was extubated yesterday, tolerated the extubation well, presently on 4 L nasal cannula, resting in bed, does not seem to be in any distress. Patient used his BiPAP last night with IPAP of 18 and EPAP 14 FiO2 30%. Continues to make good urine on his own and he remains in negative balance. He has at least 100 mL of urine output per hour. His hemodialysis catheter has been removed. His renal functioning is steadily improving. Chest x-ray continues to show evidence of in terstitial edema. His pulmonary status remains marginal at best. CBC is basically unremarkable except for hemoglobin of 7.9 electrolytes are normal slightly low potassium being addressed as per protocol. BUN is 24 creatinine 1.70 Reevaluated today on 02/20/2023, patient remains in the ICU, however the patient has made a significant improvement in the last 2 days, extubated 2 days ago, presently on nasal cannula at 3 L/m, his hemodialysis catheter has been removed, patient is not requiring any hemodialysis. Renal functioning is steadily improving creatinine is down to 1.51 today. His IV fluids at KVO, patient continues to have BiPAP at bedside uses BiPAP at bedtime. Set at 18/14/50%, n onetheless he is on 3 L nasal cannula at present. Remains on antibiotics for his extensive cellulitis of lower extremities. And the patient is able to cough and suction his own secretions. No chest x-ray was done today, however the patient remains in a negative fluid balance, and diuresing well on his own without using any diuretics. WBC count is 5.2 hemoglobin is 8.8 electrolytes are normal BUN is 21 creatinine 1.51 The patient is seen today 08/22/2022 in follow-up on the selective care unit. He was transferred out of the ICU yesterday. He is currently awake and alert in no acute distress. Resting fairly comfortably in bed. Denies any worsening shortness of breath, cough or congestion. He is utilizing BiPAP 18/14 and 30% FiO2 at night which are his home settings. He is maintaining O2 saturations in the 90s on 2 L/m per nasal cannula currently. Lower extremity wound cultures were positive for Enterococcus faecalis VRE and Enterobacter cloacae. Sputum culture previously been positive for pseudomonas aeruginosa. Blood glucose 313. He is on a NovoLog sliding scale. He remains on DuoNeb inhalations. Antibiotics in the form of Zosyn. Anticoagulated with Eliquis. The patient is seen today 08/23/2022 in follow-up on the selective care unit. He is currently sitting up in bed. Awake and alert in no acute distress. Doing quite a bit better. He is maintaining good O2 saturations in the 90s on 2 L/m per nasal cannula. He does utilizes BiPAP at night 18/14 and 30% FiO2. Chest x-ray shows improvement and just residual mild congestive heart failure. No airspace consolidation. No pleural effusion. No pneumothorax. Dressings to lower extremities remain dry and intact. He is continued on Zosyn. He remains on bronchodilators. Anticoagulated with Eliquis. Progress note dated 08/24/2022. The patient is seen today 385. The patient is on BiPAP, with settings of 18/14, and 30% FiO2. When not on BiPAP, the patient's getting 2 L of oxygen. The patient appears to be relatively stable. His lower extremities are wrapped with Speedy bandages. The patient's sodium is 137, potassium 3.6, chlorides 100, CO2 31, BUN 23, and creatinine 1.4. Glucose 246. Sputum from August 14 showed evidence of Pseudomonas aeruginosa, and wound cultures from the left leg showed evidence of Enterobacter cloacae and enterococcus faecalis. Currently, the patient is on Zosyn. Progress note dated 08/25/2022. The patient is again seen today in room 385. The patient is currently 3 L nasal cannula. The patient is not receiving any IV fluids. The patient remains on Zosyn. Clinically, he is feeling much better. Labs today include a sodium 136, potassium 3.7, chlorides 97, CO2 31, BUN 21, and creatinine 1.32. Glucose 230. Sputum Gram stain was positive for pseudomonas aeruginosa, and the patient's wound cultures were positive for Enterobacter cloacae, and Enterococcus faecalis The patient is seen today 08/26/2022 in follow-up on the regular medical floor. He is currently resting comfortably in bed. Awake and alert in no acute distress. He is currently on oxygen at 2 L/m per nasal cannula. O2 saturations in the 90s. Afebrile. Hemodynamically stable. He continues to use BiPAP at night and his outpatient settings of 18/14 and 30% FiO2. Sodium 138. Potassium 3.9. Bicarb 30. BUN 20. Creatinine 1.30. Glucose 214. He remains on bronchodilators. Anticoagulated with Eliquis. Objective - Vital Signs Vital signs: Vital Signs Temp 98.1 F 08/26/22 08:00 Pulse 71 08/26/22 12:00 Resp 18 08/26/22 12:00 BP 123/70 08/26/22 12:00 Pulse Ox 94 L 08/26/22 12:00 FiO2 30 08/26/22 04:18 Intake & Output 08/25/22 08/26/22 08/26/22 18:59 06:59 18:59 Intake Total 540 776 Output Total 750 150 750 Balance -210 -150 26 Weight 85.5 kg Intake: Oral 540 776 Output: Urine 750 150 750 Uretheral (Castillo) 350 Other: Voiding Method Indwelling Catheter Urinal # Voids 1 ABP, PAP, CO, CI - Last Documented Arterial Blood Pressure 150/68 - Exam Physical Exam: Revealed a pleasant 52-year-old male, resting in bed awake and alert, on 2 L nasal cannula, alternating with BiPAP 18/14 and 30% FiO2, not in any distress. Head: Atraumatic, normocephalic. HEENT: Short obese neck noted. Neck is supple. No neck masses. No thyromegaly. No JVD. Chest Minimal crackles at the bases no rhonchi no wheezes Cardiac Exam: Distant S1 and S2, no S3 gallop, no murmur Abdomen: Morbidly obese, Soft, nontender, no megaly, no rebound, no guarding, normal bowel sounds. Extremities: Chronic edema and cellulitis noted in both lower extremities. Dressings dry and intact. Neurological Exam: Alert and oriented 3 focal neurologic deficits. Psychiatric: Normal mood, affect and normal mental status examination Skin: As noted above under extremities - Labs CBC & Chem 7: 08/21/22 06:04 08/26/22 09:28 Labs: Abnormal Lab Results - Last 24 Hours (Table) 08/25/22 08/25/22 08/26/22 Range/Units 16:48 19:58 00:01 Creatinine (0.66-1.25) mg/dL Glucose (74-99) mg/dL POC Glucose (mg/dL) 267 H 260 H 308 H (70-110) mg/dL 08/26/22 08/26/22 08/26/22 Range/Units 06:02 09:28 12:01 Creatinine 1.30 H (0.66-1.25) mg/dL Glucose 214 H (74-99) mg/dL POC Glucose (mg/dL) 209 H 245 H (70-110) mg/dL Assessment and Plan Assessment: Acute hypoxic and hypercapnic respiratory failure, multifactorial. Patient was extubated on 08/19/2022. Stable and on 2 L nasal cannula. Improved Acute pseudomonal pneumonia. Completed Zosyn Acute on chronic diastolic congestive heart failure, chest x-ray continues to show mild interstitial edema Acute fluid overload secondary to acute renal failure Acute on chronic kidney disease with diabetic nephropathy and hypertensive nephropathy. Chronic diabetic lower extremities ulcers with possible osteomyelitis/left lower extremity. Hypotension secondary to sepsis/septic shock. Recovered. Severe obstructive sleep apnea syndrome, on home BiPAP /30% Obesity/hypoventilation syndrome Morbid obesity Chronic pain syndrome, patient has a chronic pain pump. In the left lower quadrant. History of DVT History of factor V deficiency/hypercoagulable state Hypertension with hypertensive nephropathy/nephrosclerosis. Chronic back pain Anemia of chronic disease History of diverticulosis Plan: The patient was seen and evaluated Medications and labs reviewed Currently stable and on 2 L Will return to [facility] today I have personally seen and examined the patient, performed the documentation and the assessment and plan as written. Number of minutes spent on the visit: 10.
--- NOTE | 2022-08-26 14:28 | P.PN ---
Subjective Progress Note Date: 08/26/22 Principal diagnosis: Pneumonia and left leg wound Patient is a 52-year old male with a past medical history significant for diabetes mellitus hypertension hyperlipidemia DVT, with a recent admission to [facility] from 07/31 to 08/07/2022 apparently the patient did have a wound to the left lower extremity to the anterior jacob and a wound on the plantar aspect of his left foot that was evaluated and treated by Dr. Coleman, with a wound VAC with a readmission to the hospital with acute respiratory failure requiring intubation did have a fever and concerning for pneumonia sputum is growing Pseudomonas and patient also have acute renal failure requiring dialysis. Left leg wound VAC was discontinued on 08/18/2019 as he did have significant slough tissue at the base of the wound per the wound care nurse, patient was extubated on 08/19/2022 On today's evaluation had that is 08/27/2019, the patient remains to be afebrile, the patient is breathing comfortable on 2 L nasal cannula oxygen , the patient denies any chest pain , patient denies any worsening cough or sputum production, the patient denies any nausea no vomiting no abdominal pain, and patient diarrhea he has resolved no pain to lower extremity Objective - Vital Signs Vital signs: Vital Signs Temp 98.1 F 08/26/22 08:00 Pulse 71 08/26/22 12:00 Resp 18 08/26/22 12:00 BP 123/70 08/26/22 12:00 Pulse Ox 94 L 08/26/22 12:00 FiO2 30 08/26/22 04:18 Intake & Output 08/25/22 08/26/22 08/26/22 18:59 06:59 18:59 Intake Total 540 776 Output Total 750 150 750 Balance -210 -150 26 Weight 85.5 kg Intake: Oral 540 776 Output: Urine 750 150 750 Uretheral (Castillo) 350 Other: Voiding Method Indwelling Catheter Urinal # Voids 1 ABP, PAP, CO, CI - Last Documented Arterial Blood Pressure 150/68 - Exam GENERAL DESCRIPTION: A middle-age male lying in bed in no distress RESPIRATORY SYSTEM: Unlabored breathing , decreased breath sounds at bases HEART: S1 S2 regular rate and rhythm , ABDOMEN: Soft , no tenderness EXTREMITIES: Diffuse swelling to bilateral lower extremity with a wound to the left jacob currently dressed no drainage on the dressing - Labs CBC & Chem 7: 08/21/22 06:04 08/26/22 09:28 Labs: Abnormal Lab Results - Last 24 Hours (Table) 08/25/22 08/25/22 08/26/22 Range/Units 16:48 19:58 00:01 Creatinine (0.66-1.25) mg/dL Glucose (74-99) mg/dL POC Glucose (mg/dL) 267 H 260 H 308 H (70-110) mg/dL 08/26/22 08/26/22 08/26/22 Range/Units 06:02 09:28 12:01 Creatinine 1.30 H (0.66-1.25) mg/dL Glucose 214 H (74-99) mg/dL POC Glucose (mg/dL) 209 H 245 H (70-110) mg/dL Assessment and Plan (1) Pseudomonas pneumonia Status: Acute Code(s): J15.1 - PNEUMONIA DUE TO PSEUDOMONAS SNOMED Code(s): 16993616 (2) Fever Status: Acute Code(s): R50.9 - FEVER, UNSPECIFIED SNOMED Code(s): 219894014 Plan: 1patient was in the hospital with sepsis in this patient with a fever elevated white count source is likely multifactorial with concern for possible component of pneumonia sputum showing Pseudomonas and the patient also have multiple wound especially left lower extremity and concern for possible secondary cellulitis 2-the patient blood cultures has been negative so far, sputum is growing Pseudomonas, left leg wound culture grew Enterobacter that is sensitive to Zosyn , cultures also growing VRE however that is sensitive to penicillin and should be covered with Zosyn 3-patient local wound care to the left leg with Santyl followed by moist dressin g, 4- the patient to continue with Zosyn which will cover for all the 3 pathogens grown 10 days on discharge and close outpatient follow-up Time with Patient: Less than 30
[2022-08-26] MEDS ORDERED: lisinopriL 10 MG TAB PO SCH (21:00)
== END 2022-08-26 14:16 | disposition home or self-care (01) | DRG 710 ==
LOC: EC 13:20 → 3SCARD 16:52 → 2SICU 19:25 → 3SCARD 08-21 12:13
PROVIDERS: ADMIT Hospitalist; ATTEND Hospitalist
PROC: 06HY33Z Insertion of Infusion Device into Lower Vein, Percutaneous Approach (ICD-10-PCS; principal; 2022-08-13)
PROC: 5A1955Z Respiratory Ventilation, Greater than 96 Consecutive Hours (ICD-10-PCS; 2022-08-13)
PROC: 0BH17EZ Insertion of Endotracheal Airway into Trachea, Via Natural or Artificial Opening (ICD-10-PCS; 2022-08-13)
PROC: 5A1D70Z Performance of Urinary Filtration, Intermittent, Less than 6 Hours Per Day (ICD-10-PCS; 2022-08-14)
PROC: 4A133J1 Monitoring of Arterial Pulse, Peripheral, Percutaneous Approach (ICD-10-PCS; 2022-08-14)
PROC: 05HM33Z Insertion of Infusion Device into Right Internal Jugular Vein, Percutaneous Approach (ICD-10-PCS; 2022-08-14)
PROC: 4A133B1 Monitoring of Arterial Pressure, Peripheral, Percutaneous Approach (ICD-10-PCS; 2022-08-14)
PROC: 3E043XZ Introduction of Vasopressor into Central Vein, Percutaneous Approach (ICD-10-PCS; 2022-08-14)
PROC: 03HY32Z Insertion of Monitoring Device into Upper Artery, Percutaneous Approach (ICD-10-PCS; 2022-08-14)
PROC: 0D9670Z Drainage of Stomach with Drainage Device, Via Natural or Artificial Opening (ICD-10-PCS; 2022-08-14)
PROC: 0KBT0ZZ Excision of Left Lower Leg Muscle, Open Approach (ICD-10-PCS; 2022-08-14)
PROC: 0HBKXZZ Excision of Right Lower Leg Skin, External Approach (ICD-10-PCS; 2022-08-14)
PROC: 0JBR0ZZ Excision of Left Foot Subcutaneous Tissue and Fascia, Open Approach (ICD-10-PCS; 2022-08-14)
PROC: 3E0G76Z Introduction of Nutritional Substance into Upper GI, Via Natural or Artificial Opening (ICD-10-PCS; 2022-08-15)
DX: A41.52 Sepsis due to Pseudomonas (principal); E11.649 Type 2 diabetes mellitus with hypoglycemia without coma; E11.51 Type 2 diabetes mellitus with diabetic peripheral angiopathy without gangrene; E11.41 Type 2 diabetes mellitus with diabetic mononeuropathy; E11.43 Type 2 diabetes mellitus with diabetic autonomic (poly)neuropathy; K31.84 Gastroparesis; N17.0 Acute kidney failure with tubular necrosis; E11.622 Type 2 diabetes mellitus with other skin ulcer; J15.1 Pneumonia due to Pseudomonas; R65.21 Severe sepsis with septic shock; I13.0 Hypertensive heart and chronic kidney disease with heart failure and stage 1 through stage 4 chronic kidney disease, or unspecified chronic kidney disease; J96.22 Acute and chronic respiratory failure with hypercapnia; J96.21 Acute and chronic respiratory failure with hypoxia; I50.33 Acute on chronic diastolic (congestive) heart failure; N18.30 Chronic kidney disease, stage 3 unspecified; E87.5 Hyperkalemia; E11.22 Type 2 diabetes mellitus with diabetic chronic kidney disease; D63.1 Anemia in chronic kidney disease; D68.51 Activated protein C resistance; E11.42 Type 2 diabetes mellitus with diabetic polyneuropathy; E11.610 Type 2 diabetes mellitus with diabetic neuropathic arthropathy; E11.69 Type 2 diabetes mellitus with other specified complication; M86.8X6 Other osteomyelitis, lower leg; E66.2 Morbid (severe) obesity with alveolar hypoventilation; E78.5 Hyperlipidemia, unspecified; F32.A Depression, unspecified; F41.9 Anxiety disorder, unspecified; G89.4 Chronic pain syndrome; K44.9 Diaphragmatic hernia without obstruction or gangrene; K76.0 Fatty (change of) liver, not elsewhere classified; I82.502 Chronic embolism and thrombosis of unspecified deep veins of left lower extremity; E87.4 Mixed disorder of acid-base balance; L97.919 Non-pressure chronic ulcer of unspecified part of right lower leg with unspecified severity; L97.826 Non-pressure chronic ulcer of other part of left lower leg with bone involvement without evidence of necrosis; K21.9 Gastro-esophageal reflux disease without esophagitis; L03.115 Cellulitis of right lower limb; L03.116 Cellulitis of left lower limb; M19.91 Primary osteoarthritis, unspecified site; I87.8 Other specified disorders of veins; E11.65 Type 2 diabetes mellitus with hyperglycemia; H54.62 Unqualified visual loss, left eye, normal vision right eye; K72.90 Hepatic failure, unspecified without coma; L89.151 Pressure ulcer of sacral region, stage 1; M51.26 Other intervertebral disc displacement, lumbar region; T50.8X5A Adverse effect of diagnostic agents, initial encounter; V89.2XXD Person injured in unspecified motor-vehicle accident, traffic, subsequent encounter; Z79.4 Long term (current) use of insulin; Z79.84 Long term (current) use of oral hypoglycemic drugs; Z79.899 Other long term (current) drug therapy; Z79.01 Long term (current) use of anticoagulants; Z68.42 Body mass index [BMI] 45.0-49.9, adult; Z71.3 Dietary counseling and surveillance; Z97.8 Presence of other specified devices; I25.2 Old myocardial infarction
CPT/HCPCS: 36415; 36600; 71045; 72170; 76770; 80048; 80053; 81001; 82805; 83036; 83540; 83550; 83605; 83735; 83880; 84132; 84443; 84484; 85025; 86706; 87070; 87075; 87077; 87086; 87186; 87205; 87340; 90935; 93005; 94002; 94003; 94640; 94660; 94760; 96361; 96365; 96375; 96376; 99291

== ENCOUNTER → 2022-11-27 | Outpatient (CLI) | payer OTHER ==
[2022-11-27 21:13] LABS: Basophils # (A) 0.05 X 10*3/uL (0.00-0.10); Basophils % (A) 0.6 %; Eosinophils # (A) 0.28 X 10*3/uL (0.04-0.35); Eosinophils % (A) 3.3 %; HCT 28.8 % (39.6-50.0); HGB 9.6 d/dL (13.0-17.0); Lymphocytes # (A) 1.14 X 10*3/uL (0.90-5.00); Lymphocytes % (A) 13.6 %; MCH 29.6 pg (27.0-32.0); MCHC 33.3 d/dL (32.0-37.0); MCV 88.9 FL (80.0-97.0); Mean Platelet Volume 11.1 FL (9.5-12.2); Monocytes # (A) 0.75 X 10*3/uL (0.20-1.00); Monocytes % (A) 8.9 %; NRBC Per 100 WBC 0 X 10*3/uL (0.00-0.01); Neutrophils # (A) 6.16 X 10*3/uL (1.80-7.70); Neutrophils % (A) 73.2 %; Platelet Count 234 X 10*3/uL (140-440); RBC 3.24 X 10*6/uL (4.40-5.60); RDW 14.3 % (11.5-14.5); WBC 8.41 X 10*3/uL (4.50-10.00)
[2022-11-27 21:16] LABS: ALT 16 U/L (10-49); AST 16 U/L (14-35); Albumin 3.9 d/dL (3.8-4.9); Albumin/Globulin Ratio 1.44 Ratio (1.60-3.17); Alkaline Phosphatase 128 U/L (41-126); BUN/Creat Ratio 22.92 Ratio (12.00-20.00); Blood Urea Nitrogen 29.8 mg/dL (9.0-27.0); Calcium 9.5 mg/dL (8.7-10.3); Carbon Dioxide 21.9 mmol/L (21.6-31.8); Chloride 103 mmol/L (96-109); Chol/HDL Ratio 3.86 Ratio; Globulin 2.7 d/dL (1.6-3.3); Glucose 178 mg/dL (70-110); LDL Cholesterol,Calculated 65.8 mg/dL (0.0-131.0); Magnesium 1.4 mg/dL (1.5-2.4); Potassium 4.9 mmol/L (3.5-5.5); Sodium 139 mmol/L (135-145); T4, Free (Free Thyroxine) 1.37 ng/dL (0.80-1.80); Total Bilirubin 0.2 mg/dL (0.3-1.2); Total Protein 6.6 d/dL (6.2-8.2)
== END | disposition home or self-care (01) ==
LOC: LABWHC1 12:03
DX: E11.621 Type 2 diabetes mellitus with foot ulcer (principal); I25.10 Atherosclerotic heart disease of native coronary artery without angina pectoris; I77.810 Thoracic aortic ectasia; I21.4 Non-ST elevation (NSTEMI) myocardial infarction; R00.2 Palpitations; L97.509 Non-pressure chronic ulcer of other part of unspecified foot with unspecified severity
CPT/HCPCS: 36415; 80053; 80061; 83036; 83735; 84439; 84443; 84480; 84481; 85025

== ENCOUNTER 2022-12-11 12:03 | Observation (INO) | payer OTHER ==
--- NOTE | 2022-12-11 15:21 | ED ---
Lower Extremity Injury HPI - General Source: patient, RN notes reviewed Mode of arrival: wheelchair Limitations: no limitations <Claudia Meade - Last Filed: 12/11/22 15:20> <Prince Tidwell - Last Filed: 12/11/22 19:05> - General Chief Complaint: Extremity Injury, Lower Stated Complaint: Rt leg pain Time Seen by Provider: 12/11/22 15:20 - History of Present Illness Initial Comments: Patient is a 52-year-old male who presents to the emergency department for evaluation of right leg wound. Patient was sent by the wound clinic. States they are concern for infection. He is not on antibiotics currently. No fever or chills. He is nauseous. No vomiting (Claudia Meade) - Related Data Home Medications Medication Instructions Recorded Confirmed Latanoprost Ophth [Xalatan 0.005%] 1 drop BOTH EYES HS 01/23/14 08/13/22 Ferrous Sulfate [Iron (65 MG 325 mg PO QID 10/25/20 08/13/22 Elemental)] Lubiprostone [Amitiza] 24 mcg PO BID 05/15/21 08/13/22 Omeprazole 20 mg PO DAILY 11/10/21 08/13/22 Atorvastatin [Lipitor] 80 mg PO DAILY 06/03/22 08/13/22 metFORMIN HCL 1,000 mg PO BID 06/03/22 08/13/22 Dicyclomine [Bentyl] 20 mg PO Q6H PRN 07/31/22 08/13/22 Spironolactone [Aldactone] 25 mg PO DAILY 07/31/22 08/13/22 carBAMazepine [carBAMazepine ER] 100 mg PO DAILY 07/31/22 08/13/22 DULoxetine HCL [Cymbalta] 30 mg PO DAILY 08/13/22 08/13/22 Lactulose [Cephulac] 20 gm PO BID 08/13/22 08/13/22 Potassium Chloride [Klor-Con M20] 20 meq PO DAILY 08/13/22 08/13/22 Sennosides [Senokot] 17.2 mg PO BID 08/13/22 08/13/22 bisacodyL [Dulcolax] 10 mg RECTAL HS PRN 08/13/22 08/13/22 Previous Rx's Medication Instructions Recorded Tamsulosin [Flomax] 0.4 mg PO PC-BRKFST #30 cap 07/03/22 Acetaminophen Tab [Tylenol] 650 mg PO Q6HR PRN tab 08/03/22 Calcium Carbonate [Tums] 1,000 mg PO Q4HR PRN tab 08/03/22 Piperacillin-Tazobactam [Zosyn] 3.375 gm IVPB Q8HR #36 each 08/24/22 Apixaban [Eliquis] 5 mg PO BID #1 tab 08/26/22 Collagenase [Santyl Ointment] 1 applic TOPICAL DAILY each 08/26/22 Famotidine [Pepcid] 20 mg PO HS tab 08/26/22 Furosemide [Lasix] 40 mg PO DAILY tab 08/26/22 HYDROcodone/APAP 10-325MG [[place] 1 tab PO TID PRN #9 tab 08/26/22 10-325] Insulin Glargine,Hum.rec.anlog 48 units SQ HS #0 08/26/22 [Lantus Solostar Pen] Ipratropium-Albuterol Nebulize 3 ml INHALATION Q6H PRN each 08/26/22 [Duoneb 0.5 mg-3 mg/3 ml Soln] Magnesium Oxide [Mag-Ox] 400 mg PO DAILY tab 08/26/22 Pregabalin [Lyrica] 100 mg PO HS #3 cap 08/26/22 Psyllium Husk 100% [Metamucil 6 gm PO BID #0 packet 08/26/22 Packet] Simethicone Chew [Mylicon Chew] 40 mg PO QID tab 08/26/22 lisinopriL [Prinivil] 10 mg PO HS #1 tab 08/26/22 Allergies Allergy/AdvReac Type Severity Reaction Status Date / Time adhesive Allergy Rash/Hives Verified 12/11/22 12:12 Review of Systems ROS Other: All systems not noted in ROS Statement are negative. <Claudia Meade - Last Filed: 12/11/22 15:20> ROS Other: All systems not noted in ROS Statement are negative. <Prince Tidwell - Last Filed: 12/11/22 19:05> ROS Statement: Those systems with pertinent positive or pertinent negative responses have been documented in the HPI. Past Medical History Past Medical History: Blood Disorder, Diabetes Mellitus, Deep Vein Thrombosis (DVT), GERD/Reflux, Hyperlipidemia, Hypertension, Musculoskeletal Disorder, Osteoarthritis (OA), Sleep Apnea/CPAP/BIPAP Additional Past Medical History / Comment(s): IDDM type II, neuropathy bilateral feet with R foot worse, charcot foot R/L, currently sores L foot and is NWB, recent surgery R foot with boot an can wt bear as tolerated, gastroparesis, hiatal hernia, esophageal narrowing (scarring)/past dysphagia/has had dilations, factor V leiden, 2 DVT's L leg, another superficial blood clot L leg, chronic back pain/has pain pump, DDD and bulging discs, legally blind L eye since , migraines, PVD, fatty liver, MEL with trilogy machine. Last Myocardial Infarction Date:: 11/07/21 History of Any Multi-Drug Resistant Organisms: VRE Date of last positivie culture/infection: 08/17/22 MDRO Source:: Left Leg Past Surgical History: Tonsillectomy Additional Past Surgical History / Comment(s): R foot/ankle surgery at [facility] with bone removal/hardware inserted, I&D L foot, pain pump insertion, colonoscopy, EGDs with dilations, UVPPP, eye surgery as an infant. Past Anesthesia/Blood Transfusion Reactions: Family History of Problems w/ Anesthesia Additional Past Anesthesia/Blood Transfusion Reaction / Comment(s): STATES "MOT HER CRASHES" "passes out"-with anesthesia,"needs to have a principal embedded software engineer dose" Past Psychological History: Anxiety, Depression Smoking Status: Never smoker Past Alcohol Use History: None Reported Past Drug Use History: None Reported - Past Family History Father Family Medical History: Cancer Additional Family Medical History / Comment(s): BLADDER CANCER Mother Family Medical History: CVA/TIA, Diabetes Mellitus, Myocardial Infarction ([place]) <Claudia Meade - Last Filed: 12/11/22 15:20> General Exam Limitations: no limitations <Claudia Meade - Last Filed: 12/11/22 15:20> - General Exam Comments Initial Comments: Visual Physical Exam Vital signs reviewed General: Well-appearing, nontoxic, no acute distress. Head: Normocephalic, atraumatic Eyes: PERRLA, EOMI ENT: Airway patent Chest: Nonlabored breathing Skin: No visual rash, normal skin tone Neuro: Alert and oriented 3 Musculoskeletal: No gross abnormalities (Claudia Meade) Course Vital Signs 12/11/22 12/11/22 12:12 16:46 Temperature 99.1 F Pulse Rate 88 92 Respiratory 18 18 Rate Blood Pressure 118/77 131/86 O2 Sat by Pulse 97 98 Oximetry Medical Decision Making <Claudia Meade - Last Filed: 12/11/22 15:20> - Lab Data Result diagrams: 12/11/22 16:30 12/11/22 16:30 <Prince Tidwell - Last Filed: 12/11/22 19:05> - Medical Decision Making I performed the QuickNote portion of this chart - Claudia Meade PA-C (Claudia Meade) - Lab Data Lab Results 12/11/22 12/11/22 12/11/22 Range/Units 16:30 16:30 16:31 WBC 8.8 (3.8-10.6) k/uL RBC 3.72 L (4.30-5.90) m/uL Hgb 11.1 L (13.0-17.5) gm/dL Hct 32.4 L (39.0-53.0) % MCV 87.0 (80.0-100.0) fL MCH 30.0 (25.0-35.0) pg MCHC 34.4 (31.0-37.0) g/dL RDW 14.2 (11.5-15.5) % Plt Count 228 (150-450) k/uL MPV 8.1 Neutrophils % 73 % Lymphocytes % 13 % Monocytes % 8 % Eosinophils % 5 % Basophils % 0 % Neutrophils # 6.4 (1.3-7.7) k/uL Lymphocytes # 1.2 (1.0-4.8) k/uL Monocytes # 0.7 (0-1.0) k/uL Eosinophils # 0.4 (0-0.7) k/uL Basophils # 0.0 (0-0.2) k/uL Sodium 136 L (137-145) mmol/L Potassium 5.0 (3.5-5.1) mmol/L Chloride 100 (98-107) mmol/L Carbon Dioxide 27 (22-30) mmol/L Anion Gap 9 mmol/L BUN 28 H (9-20) mg/dL Creatinine 1.16 (0.66-1.25) mg/dL Est GFR (CKD-EPI)AfAm 84 (>60 ml/min/1.73 sqM) Est GFR (CKD-EPI)NonAf 73 (>60 ml/min/1.73 sqM) Glucose 179 H (74-99) mg/dL POC Glucose (mg/dL) 182 H (70-110) mg/dL POC Glu Education Administrator ID Stas James Plasma Lactic Acid Ger (0.7-2.0) mmol/L Calcium 9.1 (8.4-10.2) mg/dL Total Bilirubin 0.8 (0.2-1.3) mg/dL AST 27 (17-59) U/L ALT 19 (4-49) U/L Alkaline Phosphatase 117 (38-126) U/L Total Protein 7.6 (6.3-8.2) g/dL Albumin 3.9 (3.5-5.0) g/dL 12/11/22 Range/Units 16:52 WBC (3.8-10.6) k/uL RBC (4.30-5.90) m/uL Hgb (13.0-17.5) gm/dL Hct (39.0-53.0) % MCV (80.0-100.0) fL MCH (25.0-35.0) pg MCHC (31.0-37.0) g/dL RDW (11.5-15.5) % Plt Count (150-450) k/uL MPV Neutrophils % % Lymphocytes % % Monocytes % % Eosinophils % % Basophils % % Neutrophils # (1.3-7.7) k/uL Lymphocytes # (1.0-4.8) k/uL Monocytes # (0-1.0) k/uL Eosinophils # (0-0.7) k/uL Basophils # (0-0.2) k/uL Sodium (137-145) mmol/L Potassium (3.5-5.1) mmol/L Chloride (98-107) mmol/L Carbon Dioxide (22-30) mmol/L Anion Gap mmol/L BUN (9-20) mg/dL Creatinine (0.66-1.25) mg/dL Est GFR (CKD-EPI)AfAm (>60 ml/min/1.73 sqM) Est GFR (CKD-EPI)NonAf (>60 ml/min/1.73 sqM) Glucose (74-99) mg/dL POC Glucose (mg/dL) (70-110) mg/dL POC Glu Education Administrator ID Plasma Lactic Acid Ger 1.8 (0.7-2.0) mmol/L Calcium (8.4-10.2) mg/dL Total Bilirubin (0.2-1.3) mg/dL AST (17-59) U/L ALT (4-49) U/L Alkaline Phosphatase (38-126) U/L Total Protein (6.3-8.2) g/dL Albumin (3.5-5.0) g/dL Disposition <Claudia Meade - Last Filed: 12/11/22 15:20> Is patient prescribed a controlled substance at d/c from ED?: No <Prince Tidwell - Last Filed: 12/11/22 19:05> Clinical Impression: Cellulitis Disposition: ADMITTED IP TO THIS HOSP Condition: Fair Referrals: Vani Doherty NPC [REFERRING] - 1-2 days
[2022-12-11 16:32] LABS: Glucose,Whole Blood 182 mg/dL (70-110)
[2022-12-11 16:37] LABS: Basophils % (A) 0 %; Eosinophils # (A) 0.4 k/uL (0-0.7); Eosinophils % (A) 5 %; HCT 32.4 % (39.0-53.0); HGB 11.1 gm/dL (13.0-17.5); Lymphocytes # (A) 1.2 k/uL (1.0-4.8); Lymphocytes % (A) 13 %; MCHC 34.4 g/dL (31.0-37.0); Mean Platelet Volume 8.1; Monocytes # (A) 0.7 k/uL (0-1.0); Monocytes % (A) 8 %; Neutrophils # (A) 6.4 k/uL (1.3-7.7); Neutrophils % (A) 73 %; Platelet Count 228 k/uL (150-450); RBC 3.72 m/uL (4.30-5.90); RDW 14.2 % (11.5-15.5); WBC 8.8 k/uL (3.8-10.6)
[2022-12-11 17:09] LABS: ALT 19 U/L (4-49); African American GFR (CKD) 84 (>60 ml/min/1.73 sqM); Anion Gap 9 mmol/L; Blood Urea Nitrogen 28 mg/dL (9-20); Calcium 9.1 mg/dL (8.4-10.2); Carbon Dioxide 27 mmol/L (22-30); Chloride 100 mmol/L (98-107); Glucose 179 mg/dL (74-99); Non-African American GFR(CKD) 73 (>60 ml/min/1.73 sqM); Sodium 136 mmol/L (137-145); Total Bilirubin 0.8 mg/dL (0.2-1.3)
[2022-12-11 17:14] LABS: AST 27 U/L (17-59); Albumin 3.9 g/dL (3.5-5.0); Alkaline Phosphatase 117 U/L (38-126); Total Protein 7.6 g/dL (6.3-8.2)
[2022-12-11] MEDS ORDERED: SODIUM CHLORIDE 0.9% 500 ML 500 ML IV STA (17:18)
[2022-12-11] MEDS ORDERED: VANCOMYCIN IV PER PHARMACY 1 EACH MISC MISCELLANE PRN (17:19)
[2022-12-11] MEDS ORDERED: VANCOMYCIN 2,000 MG in SODIUM CHLORIDE 0.9% 500 ML 500 ML IVPB STA (17:24)
[2022-12-11] MEDS ORDERED: NALOXONE 0.4 MG/ML 1 ML VIAL IV PRN (19:02)
[2022-12-11] MEDS: SODIUM CHLORIDE 0.9% 1,000 ML IV SCH (19:33)
[2022-12-11] MEDS: ACETAMINOPHEN TAB 325 MG TAB PO PRN (19:43)
[2022-12-11 22:18] LABS: Glucose,Whole Blood 228 mg/dL (70-110)
[2022-12-11] MEDS ORDERED: bisacodyL 10 MG SUPP RECTAL PRN (23:44)
[2022-12-12] MEDS ORDERED: HEPARIN SODIUM,PORCINE 5,000 UNIT/ML 1 ML VIAL SQ SCH
[2022-12-12] MEDS ORDERED: IPRATROPIUM-ALBUTEROL 3 ML NEB INHALATION PRN
[2022-12-12 05:56] LABS: African American GFR (CKD) 86 (>60 ml/min/1.73 sqM); Anion Gap 7 mmol/L; Blood Urea Nitrogen 25 mg/dL (9-20); Calcium 8.3 mg/dL (8.4-10.2); Carbon Dioxide 28 mmol/L (22-30); Chloride 100 mmol/L (98-107); Glucose 230 mg/dL (74-99); Non-African American GFR(CKD) 74 (>60 ml/min/1.73 sqM); Potassium 4.3 mmol/L (3.5-5.1); Sodium 135 mmol/L (137-145)
[2022-12-12] MEDS: VANCOMYCIN 2,000 MG in SODIUM CHLORIDE 0.9% 500 ML 500 ML IVPB SCH ×2 (06:12→17:42)
[2022-12-12 06:36] LABS: Glucose,Whole Blood 197 mg/dL (70-110)
[2022-12-12] MEDS: carBAMazepine 100 MG TAB.ER.12H PO SCH (08:15)
[2022-12-12] MEDS: ATORVASTATIN 80 MG TAB PO SCH (08:15)
[2022-12-12] MEDS: APIXABAN 5 MG TAB PO SCH ×2 (08:15→19:56)
[2022-12-12] MEDS: FERROUS SULFATE 325 MG TAB PO SCH ×2 (08:15→19:57)
[2022-12-12] MEDS: FUROSEMIDE 40 MG TAB PO SCH (08:15)
[2022-12-12] MEDS: DICYCLOMINE 20 MG TAB PO SCH ×2 (08:15→19:56)
[2022-12-12] MEDS: DULoxetine HCL 30 MG CAPSULE.DR PO SCH (08:15)
[2022-12-12] MEDS: INSULIN ASPART (NovoLOG) 100 UNIT/ML VIAL SQ SCH ×3 (08:15→17:43)
[2022-12-12] MEDS: ACETAMINOPHEN TAB 325 MG TAB PO PRN (08:23)
[2022-12-12] MEDS ORDERED: INSULIN DETEMIR (LEVEMIR) 100 UNIT/ML SYR SQ SCH ×2 (09:00→21:00)
[2022-12-12] MEDS ORDERED: LACTULOSE 20 GM/30 ML CUP PO PRN (09:00)
[2022-12-12 11:33] LABS: Glucose,Whole Blood 334 mg/dL (70-110)
[2022-12-12] MEDS ORDERED: ACETAMINOPHEN TAB 325 MG TAB PO PRN (14:15)
[2022-12-12] MEDS: HYDROcodone/APAP 10-325MG 1 EACH TAB PO PRN (14:53)
[2022-12-12 17:14] LABS: Glucose,Whole Blood 210 mg/dL (70-110)
[2022-12-12] MEDS: SODIUM CHLORIDE 0.9% 1,000 ML IV SCH (19:56)
[2022-12-12] MEDS: PREGABALIN 100 MG CAP PO SCH (19:57)
[2022-12-12] MEDS: metFORMIN 500 MG TAB PO SCH (19:57)
[2022-12-12] MEDS: NON FORMULARY DRUG (Lubiprostone [Amitiza] 24 MCG Capsule) PO SCH (19:58)
[2022-12-12 20:11] LABS: Glucose,Whole Blood 160 mg/dL (70-110)
[2022-12-12] MEDS: LATANOPROST 0.005% OPHTH DROPS 2.5 ML BTL BOTH EYES SCH (20:27)
--- NOTE | 2022-12-12 23:25 | P.CONS ---
History of Present Illness - Reason for Consult Consult date: 12/12/22 Cellulitis Requesting physician: Prince Tidwell - Chief Complaint Right lower extremity pain swelling or redness x few days - History of Present Illness Patient is a 52-year-old male with a past medical history significant for diabetes mellitus hypertension hyperlipidemia reflux history of diabetic foot infection and osteomyelitis, patient did have a lower extremity wound for which the patient to follow-up with Dr. Coleman at the wound care center patient mention he recently did develop cellulitis to the right lower extremity that has been treated by Dr. Coleman with an oral antibiotic patient was not clear about the name, patient did have a follow-up with him yesterday noticed to have increasing swelling or redness to the right lower extremity for the patient was sent to the ER for further evaluation and need for IV by therapy patient denies having any fever or any chills has been complaining of some discomfort in the right lower extremity more of a dull aching pain 3-4 10 no radiation did have a swelling redness and some drainage but no foul-smelling, patient on presentation to the hospital did have low-grade fever of 99.1 F patient was not tachycardic hypotensive or hypoxic patient did have a normal white count creatinine was normal liver enzymes normal patient was started on vancomycin infectious disease was consulted for further management of antibiotic therapy Review of Systems Positive point and negatives has been mentioned in the HPI, complete review of systems was performed and all other systems are negative Past Medical History Past Medical History: Blood Disorder, Diabetes Mellitus, Deep Vein Thrombosis (DVT), GERD/Reflux, Hyperlipidemia, Hypertension, Musculoskeletal Disorder, Osteoarthritis (OA), Sleep Apnea/CPAP/BIPAP Additional Past Medical History / Comment(s): IDDM type II, neuropathy bilateral feet with R foot worse, charcot foot R/L, currently sores L foot and is NWB, recent surgery R foot with boot an can wt bear as tolerated, gastroparesis, hiatal hernia, esophageal narrowing (scarring)/past dysphagia/has had dilations, factor V leiden, 2 DVT's L leg, another superficial blood clot L leg, chronic back pain/has pain pump, DDD and bulging discs, legally blind L eye since , migraines, PVD, fatty liver, MEL with trilogy machine. Last Myocardial Infarction Date:: 11/07/21 History of Any Multi-Drug Resistant Organisms: VRE Year Discovered:: 08/17/22 MDRO Source:: Left Leg Past Surgical History: Tonsillectomy Additional Past Surgical History / Comment(s): R foot/ankle surgery at [facility] with bone removal/hardware inserted, I&D L foot, pain pump insertion, colonoscopy, EGDs with dilations, UVPPP, eye surgery as an . Past Anesthesia/Blood Transfusion Reactions: Family History of Problems w/ Anesthesia Additional Past Anesthesia/Blood Transfusion Reaction / Comm: STATES "MOTHER CRASHES" "passes out"-with anesthesia,"needs to have a signal worker helper dose" Smoking Status: Never smoker - Past Family History Father Family Medical History: Cancer Additional Family Medical History / Comment(s): BLADDER CANCER Mother Family Medical History: CVA/TIA, Diabetes Mellitus, Myocardial Infarction ([place]) Medications and Allergies Home Medications Medication Instructions Recorded Confirmed Type Latanoprost Ophth [Xalatan 0.005%] 1 drop BOTH EYES HS 01/23/14 12/11/22 History Ferrous Sulfate [Iron (65 MG 325 mg PO BID 10/25/20 12/11/22 History Elemental)] Lubiprostone [Amitiza] 24 mcg PO BID 05/15/21 12/11/22 History Omeprazole 20 mg PO DAILY 11/10/21 12/11/22 History Atorvastatin [Lipitor] 80 mg PO DAILY 06/03/22 12/11/22 History metFORMIN HCL 1,000 mg PO BID 06/03/22 12/11/22 History Dicyclomine [Bentyl] 20 mg PO BID 07/31/22 12/11/22 History carBAMazepine [carBAMazepine ER] 100 mg PO DAILY 07/31/22 12/11/22 History Acetaminophen Tab [Tylenol] 650 mg PO Q6HR PRN tab 08/03/22 12/11/22 Rx DULoxetine HCL [Cymbalta] 30 mg PO DAILY 08/13/22 12/11/22 History Lactulose [Cephulac] 20 gm PO BID PRN 08/13/22 12/11/22 History bisacodyL [Dulcolax] 10 mg RECTAL HS PRN 08/13/22 12/11/22 History Apixaban [Eliquis] 5 mg PO BID #1 tab 08/26/22 12/11/22 Rx Furosemide [Lasix] 40 mg PO DAILY tab 08/26/22 12/11/22 Rx HYDROcodone/APAP 10-325MG [Zap 1 tab PO TID PRN #9 tab 08/26/22 12/11/22 Rx 10-325] Magnesium Oxide [Mag-Ox] 400 mg PO DAILY tab 08/26/22 12/11/22 Rx Pregabalin [Lyrica] 100 mg PO HS #3 cap 08/26/22 12/11/22 Rx Insulin Glargine,Hum.rec.anlog 50 units SQ HS 12/11/22 12/11/22 History [Lantus Solostar Pen] Insulin Lispro [humaLOG Kwikpen] 16 unit SQ TID-W/MEALS 12/11/22 12/11/22 History Ipratropium-Albuterol Nebulize 3 ml INHALATION RT-Q6H PRN 12/11/22 12/11/22 History [Duoneb 0.5 mg-3 mg/3 ml Soln] Loratadine [Claritin] 10 mg PO DAILY 12/11/22 12/11/22 History Morphine Pain Pump 1 dose INTRATHECA DIRECTED 12/11/22 12/11/22 History Potassium Chloride ER [K-Dur 10] 10 meq PO DAILY 12/11/22 12/11/22 History lisinopriL [Zestril] 2.5 mg PO DAILY 12/11/22 12/11/22 History metOLazone [Zaroxolyn] 5 mg PO DAILY 12/11/22 12/11/22 History Cephalexin [Keflex] 500 mg PO Q8HR 10 Days #30 cap 12/15/22 Rx Allergies Allergy/AdvReac Type Severity Reaction Status Date / Time adhesive Allergy Rash/Hives Verified 12/11/22 19:39 Physical Exam Vitals: Vital Signs Temp Pulse Pulse Resp BP BP Pulse Ox 12/12/22 09:10 12/12/22 09:07 95 12/12/22 07:00 98.2 F 74 20 135/76 96 12/12/22 01:10 97.8 F 73 16 125/76 97 12/11/22 21:04 98.4 F 84 16 128/70 99 12/11/22 20:38 98.9 F 88 20 119/64 96 12/11/22 19:30 91 20 134/72 97 12/11/22 19:00 92 18 132/76 97 12/11/22 16:46 92 18 131/86 98 12/11/22 12:12 99.1 F 88 18 118/77 97 FiO2 12/12/22 09:10 30 12/12/22 09:07 12/12/22 07:00 12/12/22 01:10 12/11/22 21:04 12/11/22 20:38 12/11/22 19:30 12/11/22 19:00 12/11/22 16:46 12/11/22 12:12 Intake and Output 12/11/22 12/12/22 12/12/22 22:59 06:59 14:59 Intake Total 1080 700 Output Total 0 850 Balance 1080 -150 Intake: IV 540 700 Sodium Chloride 0.9% 1, 40 200 000 ml @ 20 mls/hr IV . Q24H [facility] Rx#:[id number] Vancomycin 2,000 mg In 500 500 Sodium Chloride 0.9% 500 ml 500 ml @ 167 mls/hr IVPB ONCE STA Rx#: [id number] Oral 540 Output: Urine 0 850 Other: Voiding Method Urinal Urinal # Voids 0 Weight 129.274 kg GENERAL DESCRIPTION: Middle-aged male lying in bed, no distress. No tachypnea or accessory muscle of respiration use. HEENT: Shows Pallor , no scleral icterus. Oral mucous membrane is dry. No pharyngeal erythema or thrush NECK: Trachea central, no thyromegaly. LUNGS: Unlabored breathing. Clear to auscultation anteriorly. No wheeze or crackle. HEART: S1, S2, regular rate and rhythm. No loud murmur ABDOMEN: Soft, no tenderness , guarding or rigidity, no organomegaly EXTREMITIES: Right lower extremity with diffuse swelling redness superficial ulceration no drainage SKIN: No rash, no masses palpable. NEUROLOGICAL: The patient is awake, alert, oriented x3, mood and affect normal. Results CBC & Chem 7: 12/13/22 08:29 12/13/22 08:29 Labs: Abnormal Lab Results - Last 24 Hours (Table) 12/11/22 12/11/22 12/11/22 Range/Units 16:30 16:30 16:31 RBC 3.72 L (4.30-5.90) m/uL Hgb 11.1 L (13.0-17.5) gm/dL Hct 32.4 L (39.0-53.0) % Sodium 136 L (137-145) mmol/L BUN 28 H (9-20) mg/dL Glucose 179 H (74-99) mg/dL POC Glucose (mg/dL) 182 H (70-110) mg/dL Calcium (8.4-10.2) mg/dL 12/11/22 12/12/22 12/12/22 Range/Units 22:17 05:28 06:35 RBC (4.30-5.90) m/uL Hgb (13.0-17.5) gm/dL Hct (39.0-53.0) % Sodium 135 L (137-145) mmol/L BUN 25 H (9-20) mg/dL Glucose 230 H (74-99) mg/dL POC Glucose (mg/dL) 228 H 197 H (70-110) mg/dL Calcium 8.3 L (8.4-10.2) mg/dL Assessment and Plan (1) Cellulitis of right lower extremity Current Visit: Yes Status: Acute Code(s): L03.115 - CELLULITIS OF RIGHT LOWER LIMB SNOMED Code(s): 206843311 (2) Non-pressure chronic ulcer of other part of right foot with fat layer exposed Current Visit: No Status: Acute Code(s): L97.512 - NON-PRS CHRONIC ULCER OTH PRT RIGHT FOOT W FAT LAYER EXPOSED SNOMED Code(s): 77510385964109038 Plan: 1patient present to the hospital with increasing swelling redness to the right lower extremity concerning for cellulitis failing outpatient antibiotic therapy patient did have some superficial ulceration likely from ruptured blister and diffuse swelling redness likely streptococcal disease. 2local wound care with Aquacel silver dressing followed by Speedy wrap to keep the swelling down discussed with the RN. 3discontinue vancomycin. 4we will start patient cefazolin 2 g every 8 hours. 5check inflammatory markers. We will follow on clinical condition and cultures to further adjust medication if needed Thank you for this consultation we will follow the patient along with you Dictation was produced using Convrrtation software. please excuse any grammatical, word or spelling errors. Time with Patient: Greater than 30
[2022-12-13 06:09] LABS: Glucose,Whole Blood 154 mg/dL (70-110)
--- NOTE | 2022-12-13 07:43 | P.HPIM ---
History of Present Illness H&P Date: 12/12/22 Chief Complaint: Right lower extremity wound 52-year-old male with a past medical history significant for diabetes mellitus hypertension hyperlipidemia reflux history of diabetic foot infection and osteomyelitis, patient did have a lower extremity wound for which the patient to follow-up with Dr. Coleman at the wound care center patient mention he recently did develop cellulitis to the right lower extremity that has been treated by Dr. Coleman with an oral antibiotic patient was not clear about the name, patient did have a follow-up with him yesterday noticed to have increasing swelling or redness to the right lower extremity for the patient was sent to the ER for further evaluation Blood work completed in ED reveals a CBC of 8.8, hemoglobin of 11.1). Count of 228, sodium 135, potassium 4.3, BUN/creatinine of 25/1.14 and blood glucose of 230 Review of Systems REVIEW OF SYSTEMS: CONSTITUTIONAL: No fever, no malaise, no fatigue. HEENT: No recent visual problems or hearing problems. Denied any sore throat. CARDIOVASCULAR: No chest pain, orthopnea, PND, no palpitations, no syncope. PULMONARY: No shortness of breath, no cough, no hemoptysis. GASTROINTESTINAL: No diarrhea, no nausea, no vomiting, no abdominal pain. NEUROLOGICAL: No headaches, no weakness, no numbness. HEMATOLOGICAL: Denies any bleeding or petechiae. GENITOURINARY: Denies any burning micturition, frequency, or urgency. MUSCULOSKELETAL/RHEUMATOLOGICAL: Denies any joint pain, swelling, or any muscle pain. ENDOCRINE: Denies any polyuria or polydipsia. The rest of the 14-point review of systems is negative. Past Medical History Past Medical History: Blood Disorder, Diabetes Mellitus, Deep Vein Thrombosis (DVT), GERD/Reflux, Hyperlipidemia, Hypertension, Musculoskeletal Disorder, Osteoarthritis (OA), Sleep Apnea/CPAP/BIPAP Additional Past Medical History / Comment(s): IDDM type II, neuropathy bilateral feet with R foot worse, charcot foot R/L, currently sores L foot and is NWB, recent surgery R foot with boot an can wt bear as tolerated, gastroparesis, hiatal hernia, esophageal narrowing (scarring)/past dysphagia/has had dilations, factor V leiden, 2 DVT's L leg, another superficial blood clot L leg, chronic back pain/has pain pump, DDD and bulging discs, legally blind L eye since , migraines, PVD, fatty liver, MEL with trilogy machine. Last Myocardial Infarction Date:: 11/07/21 History of Any Multi-Drug Resistant Organisms: VRE Date of last positivie culture/infection: 08/17/22 MDRO Source:: Left Leg Past Surgical History: Tonsillectomy Additional Past Surgical History / Comment(s): R foot/ankle surgery at [facility] with bone removal/hardware inserted, I&D L foot, pain pump insertion, colonoscopy, EGDs with dilations, UVPPP, eye surgery as an . Past Anesthesia/Blood Transfusion Reactions: Family History of Problems w/ Anesthesia Additional Past Anesthesia/Blood Transfusion Reaction / Comment(s): STATES "MOTHER CRASHES" "passes out"-with anesthesia,"needs to have a automotive electrician helper dose" Smoking Status: Never smoker - Past Family History Father Family Medical History: Cancer Additional Family Medical History / Comment(s): BLADDER CANCER Mother Family Medical History: CVA/TIA, Diabetes Mellitus, Myocardial Infarction ([place]) Medications and Allergies Home Medications Medication Instructions Recorded Confirmed Type Latanoprost Ophth [Xalatan 0.005%] 1 drop BOTH EYES HS 01/23/14 12/11/22 History Ferrous Sulfate [Iron (65 MG 325 mg PO BID 10/25/20 12/11/22 History Elemental)] Lubiprostone [Amitiza] 24 mcg PO BID 05/15/21 12/11/22 History Omeprazole 20 mg PO DAILY 11/10/21 12/11/22 History Atorvastatin [Lipitor] 80 mg PO DAILY 06/03/22 12/11/22 History metFORMIN HCL 1,000 mg PO BID 06/03/22 12/11/22 History Dicyclomine [Bentyl] 20 mg PO BID 07/31/22 12/11/22 History carBAMazepine [carBAMazepine ER] 100 mg PO DAILY 07/31/22 12/11/22 History Acetaminophen Tab [Tylenol] 650 mg PO Q6HR PRN tab 08/03/22 12/11/22 Rx DULoxetine HCL [Cymbalta] 30 mg PO DAILY 08/13/22 12/11/22 History Lactulose [Cephulac] 20 gm PO BID PRN 08/13/22 12/11/22 History bisacodyL [Dulcolax] 10 mg RECTAL HS PRN 08/13/22 12/11/22 History Apixaban [Eliquis] 5 mg PO BID #1 tab 08/26/22 12/11/22 Rx Furosemide [Lasix] 40 mg PO DAILY tab 08/26/22 12/11/22 Rx HYDROcodone/APAP 10-325MG [[place]gor[place] 1 tab PO TID PRN #9 tab 08/26/22 12/11/22 Rx 10-325] Magnesium Oxide [Mag-Ox] 400 mg PO DAILY tab 08/26/22 12/11/22 Rx Pregabalin [Lyrica] 100 mg PO HS #3 cap 08/26/22 12/11/22 Rx Insulin Glargine,Hum.rec.anlog 50 units SQ HS 12/11/22 12/11/22 History [Lantus Solostar Pen] Insulin Lispro [humaLOG Kwikpen] 16 unit SQ TID-W/MEALS 12/11/22 12/11/22 History Ipratropium-Albuterol Nebulize 3 ml INHALATION RT-Q6H PRN 12/11/22 12/11/22 History [Duoneb 0.5 mg-3 mg/3 ml Soln] Loratadine [Claritin] 10 mg PO DAILY 12/11/22 12/11/22 History Morphine Pain Pump 1 dose INTRATHECA DIRECTED 12/11/22 12/11/22 History Potassium Chloride ER [K-Dur 10] 10 meq PO DAILY 12/11/22 12/11/22 History lisinopriL [Zestril] 2.5 mg PO DAILY 12/11/22 12/11/22 History metOLazone [Zaroxolyn] 5 mg PO DAILY 12/11/22 12/11/22 History Allergies Allergy/AdvReac Type Severity Reaction Status Date / Time adhesive Allergy Rash/Hives Verified 12/11/22 19:39 Physical Exam Vitals: Vital Signs Temp Pulse Pulse Resp BP BP Pulse Ox 12/12/22 09:10 12/12/22 09:07 95 12/12/22 07:00 98.2 F 74 20 135/76 96 12/12/22 01:10 97.8 F 73 16 125/76 97 12/11/22 21:04 98.4 F 84 16 128/70 99 12/11/22 20:38 98.9 F 88 20 119/64 96 12/11/22 19:30 91 20 134/72 97 12/11/22 19:00 92 18 132/76 97 12/11/22 16:46 92 18 131/86 98 FiO2 12/12/22 09:10 30 12/12/22 09:07 12/12/22 07:00 12/12/22 01:10 12/11/22 21:04 12/11/22 20:38 12/11/22 19:30 12/11/22 19:00 12/11/22 16:46 Intake and Output 12/11/22 12/12/22 12/12/22 22:59 06:59 14:59 Intake Total 1080 700 360 Output Total 0 850 750 Balance 1080 -150 -390 Intake: IV 540 700 Sodium Chloride 0.9% 1, 40 200 000 ml @ 20 mls/hr IV . Q24H [facility] Rx#:[id number] Vancomycin 2,000 mg In 500 500 Sodium Chloride 0.9% 500 ml 500 ml @ 167 mls/hr IVPB ONCE STA Rx#: [id number] Oral 540 360 Output: Urine 0 850 750 Other: Voiding Method Urinal Urinal # Voids 0 Weight 129.274 kg PHYSICAL EXAMINATION: GENERAL: The patient is alert and oriented x3, not in any acute distress. Well developed, well nourished. HEENT: Pupils are round and equally reacting to light. EOMI. No scleral icterus. No conjunctival pallor. Normocephalic, atraumatic. No pharyngeal erythema. No thyromegaly. CARDIOVASCULAR: S1 and S2 present. No murmurs, rubs, or gallops. PULMONARY: Chest is clear to auscultation, no wheezing or crackles. ABDOMEN: Soft, nontender, nondistended, normoactive bowel sounds. No palpable organomegaly. MUSCULOSKELETAL: No joint swelling or deformity. EXTREMITIES: No cyanosis, clubbing, or pedal edema. NEUROLOGICAL: Gross neurological examination did not reveal any focal deficits. SKIN: swelling redness and some drainage but not foul-smelling; that is surrounding erythema indicative of cellulitis . Results CBC & Chem 7: 12/11/22 16:30 12/12/22 05:28 Labs: Abnormal Lab Results - Last 24 Hours (Table) 12/11/22 12/11/22 12/11/22 Range/Units 16:30 16:30 16:31 RBC 3.72 L (4.30-5.90) m/uL Hgb 11.1 L (13.0-17.5) gm/dL Hct 32.4 L (39.0-53.0) % Sodium 136 L (137-145) mmol/L BUN 28 H (9-20) mg/dL Glucose 179 H (74-99) mg/dL POC Glucose (mg/dL) 182 H (70-110) mg/dL Calcium (8.4-10.2) mg/dL 12/11/22 12/12/22 12/12/22 Range/Units 22:17 05:28 06:35 RBC (4.30-5.90) m/uL Hgb (13.0-17.5) gm/dL Hct (39.0-53.0) % Sodium 135 L (137-145) mmol/L BUN 25 H (9-20) mg/dL Glucose 230 H (74-99) mg/dL POC Glucose (mg/dL) 228 H 197 H (70-110) mg/dL Calcium 8.3 L (8.4-10.2) mg/dL 12/12/22 Range/Units 11:30 RBC (4.30-5.90) m/uL Hgb (13.0-17.5) gm/dL Hct (39.0-53.0) % Sodium (137-145) mmol/L BUN (9-20) mg/dL Glucose (74-99) mg/dL POC Glucose (mg/dL) 334 H (70-110) mg/dL Calcium (8.4-10.2) mg/dL Thrombosis Risk Factor Assmnt - Choose All That Apply Any of the Below Risk Factors Present?: Yes Each Factor Represents 1 point: Age 41-60 years, Obesity (BMI >25), Swollen legs (current) Other Risk Factors: Yes Each Risk Factor Represents 2 Points: Patient confined to bed Each Risk Factor Represents 3 Points: Positive Factor V Leiden, History of DV T/PE Other congenital or acquired thrombophilia - If yes, enter type in comment: No Thrombosis Risk Factor Assessment Total Risk Factor Score: 11 Thrombosis Risk Factor Assessment Level: High Risk Assessment and Plan Assessment: 1. Right lower extremity infected wound/cellulitis - Patient is being followed up at wound care clinic; was sent to ER for further evaluation and admission for IV antibiotics - Patient has been placed on IV vancomycin with pharmacy dosing service; blood cultures and wound cultures are obtained; consult ID for further recommendations on antibiotics and local wound care 2. Hyperglycemia without acidosis - Patient has history of diabetes and is on long-term insulin use with Lantus 50 units subcu daily at bedtime along with insulin lispro 16 units subcu 3 times a day with meals; we will continue with current regimen and monitor Accu-Cheks using at bedtime with insulin sliding scale; metformin thousand milligrams twice a day 3. Hypertension; Zestril 2.5 mg daily, Zaroxolyn 5 mg daily, Lasix 40 mg daily 4. Hyperlipidemia; Lipitor 80 mg by mouth daily at bedtime 5. History of DVT; factor V leiden -- remains on L Alicia 5 mg twice a day 6. Chronic back pain; related to degenerative disc disease and herniated disc disease -- patient is on morphine pump along with Cymbalta and [place] for breakthrough pain 7. Neuropathy; Lyrica 100 mg by mouth daily at bedtime DVT prophylaxis; SCDs/systemic anticoagulation CODE STATUS; full code
[2022-12-13] MEDS: APIXABAN 5 MG TAB PO SCH ×2 (08:02→20:30)
[2022-12-13] MEDS: ATORVASTATIN 80 MG TAB PO SCH (08:02)
[2022-12-13] MEDS: INSULIN ASPART (NovoLOG) 100 UNIT/ML VIAL SQ SCH ×3 (08:02→17:37)
[2022-12-13] MEDS: PANTOPRAZOLE 40 MG TABLET PO SCH (08:02)
[2022-12-13] MEDS: POTASSIUM CHLORIDE ER 10 MEQ TAB.ER.PRT PO SCH (08:03)
[2022-12-13] MEDS: FUROSEMIDE 40 MG TAB PO SCH (08:03)
[2022-12-13] MEDS: DICYCLOMINE 20 MG TAB PO SCH ×2 (08:03→20:30)
[2022-12-13] MEDS: LORATADINE 10 MG TAB PO SCH (08:03)
[2022-12-13] MEDS: DULoxetine HCL 30 MG CAPSULE.DR PO SCH (08:03)
[2022-12-13] MEDS: carBAMazepine 100 MG TAB.ER.12H PO SCH (08:03)
[2022-12-13] MEDS: metOLazone 5 MG TAB PO SCH (08:03)
[2022-12-13] MEDS: FERROUS SULFATE 325 MG TAB PO SCH ×2 (08:03→20:30)
[2022-12-13] MEDS: metFORMIN 500 MG TAB PO SCH ×2 (08:03→20:30)
[2022-12-13] MEDS: MAGNESIUM OXIDE 400 MG TAB PO SCH (08:03)
[2022-12-13] MEDS: NON FORMULARY DRUG (Lubiprostone [Amitiza] 24 MCG Capsule) PO SCH ×2 (08:05→20:30)
[2022-12-13] MEDS: HYDROcodone/APAP 10-325MG 1 EACH TAB PO PRN (08:12)
[2022-12-13 09:16] LABS: Basophils # (A) 0.1 k/uL (0-0.2); Basophils % (A) 1 %; Eosinophils # (A) 0.4 k/uL (0-0.7); Eosinophils % (A) 6 %; HCT 33.5 % (39.0-53.0); HGB 10.6 gm/dL (13.0-17.5); Hypochromasia Marked; Lymphocytes # (A) 1.2 k/uL (1.0-4.8); Lymphocytes % (A) 18 %; MCH 30.2 pg (25.0-35.0); MCHC 31.6 g/dL (31.0-37.0); Mean Platelet Volume 8.6; Monocytes # (A) 0.5 k/uL (0-1.0); Monocytes % (A) 7 %; Neutrophils # (A) 4.4 k/uL (1.3-7.7); Neutrophils % (A) 66 %; Platelet Count 234 k/uL (150-450); RBC 3.51 m/uL (4.30-5.90); WBC 6.6 k/uL (3.8-10.6)
[2022-12-13 09:17] LABS: MCV 95.4 fL (80.0-100.0)
[2022-12-13 10:33] LABS: African American GFR (CKD) 87 (>60 ml/min/1.73 sqM); Anion Gap 13 mmol/L; Blood Urea Nitrogen 24 mg/dL (9-20); C Reactive Protein 3.9 mg/dL (<1.0); Calcium 8.6 mg/dL (8.4-10.2); Carbon Dioxide 22 mmol/L (22-30); Chloride 101 mmol/L (98-107); Glucose 138 mg/dL (74-99); Non-African American GFR(CKD) 75 (>60 ml/min/1.73 sqM); Potassium 4.4 mmol/L (3.5-5.1); Sodium 136 mmol/L (137-145)
[2022-12-13 11:56] LABS: Glucose,Whole Blood 188 mg/dL (70-110)
[2022-12-13 17:29] LABS: Glucose,Whole Blood 199 mg/dL (70-110)
[2022-12-13 20:03] LABS: Glucose,Whole Blood 234 mg/dL (70-110)
[2022-12-13] MEDS: INSULIN DETEMIR (LEVEMIR) 100 UNIT/ML SYR SQ SCH (20:29)
[2022-12-13] MEDS: LATANOPROST 0.005% OPHTH DROPS 2.5 ML BTL BOTH EYES SCH (20:29)
[2022-12-13] MEDS: PREGABALIN 100 MG CAP PO SCH (20:30)
[2022-12-13] MEDS: SODIUM CHLORIDE 0.9% 1,000 ML IV SCH (20:31)
--- NOTE | 2022-12-13 21:38 | P.PN ---
Subjective Progress Note Date: 12/13/22 52-year-old male with a past medical history significant for diabetes mellitus hypertension hyperlipidemia reflux history of diabetic foot infection and osteomyelitis, patient did have a lower extremity wound for which the patient to follow-up with Dr. Coleman at the wound care center patient mention he recently did develop cellulitis to the right lower extremity that has been treated by Dr. Coleman with an oral antibiotic patient was not clear about the name, patient did have a follow-up with him yesterday noticed to have increasing swelling or redness to the right lower extremity for the patient was sent to the ER for further evaluation Blood work completed in ED reveals a CBC of 8.8, hemoglobin of 11.1). Count of 228, sodium 135, potassium 4.3, BUN/creatinine of 25/1.14 and blood glucose of 230 Objective - Vital Signs Vital signs: Vital Signs Temp 98 F 12/13/22 07:00 Pulse 68 12/13/22 07:00 Resp 20 12/13/22 07:00 BP 134/78 12/13/22 07:00 Pulse Ox 95 12/13/22 09:32 FiO2 30 12/13/22 03:38 Intake & Output 12/12/22 12/13/22 12/13/22 18:59 06:59 18:59 Intake Total 600 240 Output Total 1150 400 Balance -550 -400 240 Intake: Oral 600 240 Output: Urine 1150 400 Other: # Voids 0 1 # Bowel Movements 1 - Exam GENERAL: The patient is alert and oriented x3, not in any acute distress. Well developed, well nourished. HEENT: Pupils are round and equally reacting to light. EOMI. No scleral icterus. No conjunctival pallor. Normocephalic, atraumatic. No pharyngeal erythema. No thyromegaly. CARDIOVASCULAR: S1 and S2 present. No murmurs, rubs, or gallops. PULMONARY: Chest is clear to auscultation, no wheezing or crackles. ABDOMEN: Soft, nontender, nondistended, normoactive bowel sounds. No palpable organomegaly. MUSCULOSKELETAL: No joint swelling or deformity. EXTREMITIES: No cyanosis, clubbing, or pedal edema. NEUROLOGICAL: Gross neurological examination did not reveal any focal deficits. SKIN: swelling redness and some drainage but not foul-smelling; that is s urrounding erythema indicative of cellulitis . - Labs CBC & Chem 7: 12/13/22 08:29 12/13/22 08:29 Labs: Abnormal Lab Results - Last 24 Hours (Table) 12/12/22 12/12/22 12/12/22 Range/Units 11:30 17:12 20:10 RBC (4.30-5.90) m/uL Hgb (13.0-17.5) gm/dL Hct (39.0-53.0) % Sodium (137-145) mmol/L BUN (9-20) mg/dL Glucose (74-99) mg/dL POC Glucose (mg/dL) 334 H 210 H 160 H (70-110) mg/dL C-Reactive Protein (<1.0) mg/dL 12/13/22 12/13/22 12/13/22 Range/Units 06:08 08:29 08:29 RBC 3.51 L (4.30-5.90) m/uL Hgb 10.6 L (13.0-17.5) gm/dL Hct 33.5 L (39.0-53.0) % Sodium 136 L (137-145) mmol/L BUN 24 H (9-20) mg/dL Glucose 138 H (74-99) mg/dL POC Glucose (mg/dL) 154 H (70-110) mg/dL C-Reactive Protein 3.9 H (<1.0) mg/dL Microbiology - Last 24 Hours (Table) 12/11/22 17:30 Blood Culture - Preliminary Blood 12/11/22 17:45 Blood Culture - Preliminary Blood Assessment and Plan Assessment: 1. Right lower extremity infected wound/cellulitis - Patient is being followed up at wound care clinic; was sent to ER for further evaluation and admission for IV antibiotics - Patient has been placed on IV vancomycin with pharmacy dosing service; blood cultures and wound cultures are obtained; consult ID for further recommendations on antibiotics and local wound care 2. Hyperglycemia without acidosis - Patient has history of diabetes and is on long-term insulin use with Lantus 50 units subcu daily at bedtime along with insulin lispro 16 units subcu 3 times a day with meals; we will continue with current regimen and monitor Accu-Cheks using at bedtime with insulin sliding scale; metformin thousand milligrams twice a day 3. Hypertension; Zestril 2.5 mg daily, Zaroxolyn 5 mg daily, Lasix 40 mg daily 4. Hyperlipidemia; Lipitor 80 mg by mouth daily at bedtime 5. History of DVT; factor V leiden -- remains on L Alicia 5 mg twice a day 6. Chronic back pain; related to degenerative disc disease and herniated disc disease -- patient is on morphine pump along with Cymbalta and [place] for breakthrough pain 7. Neuropathy; Lyrica 100 mg by mouth daily at bedtime DVT prophylaxis; SCDs/systemic anticoagulation CODE STATUS; full code
[2022-12-14 06:17] LABS: Glucose,Whole Blood 189 mg/dL (70-110)
[2022-12-14] MEDS: APIXABAN 5 MG TAB PO SCH ×2 (08:37→21:16)
[2022-12-14] MEDS: LORATADINE 10 MG TAB PO SCH (08:37)
[2022-12-14] MEDS: metFORMIN 500 MG TAB PO SCH ×2 (08:37→21:16)
[2022-12-14] MEDS: MAGNESIUM OXIDE 400 MG TAB PO SCH (08:37)
[2022-12-14] MEDS: ATORVASTATIN 80 MG TAB PO SCH (08:37)
[2022-12-14] MEDS: INSULIN ASPART (NovoLOG) 100 UNIT/ML VIAL SQ SCH ×3 (08:37→17:33)
[2022-12-14] MEDS: POTASSIUM CHLORIDE ER 10 MEQ TAB.ER.PRT PO SCH (08:37)
[2022-12-14] MEDS: metOLazone 5 MG TAB PO SCH (08:38)
[2022-12-14] MEDS: FERROUS SULFATE 325 MG TAB PO SCH ×2 (08:38→21:16)
[2022-12-14] MEDS: DICYCLOMINE 20 MG TAB PO SCH ×2 (08:38→21:16)
[2022-12-14] MEDS: FUROSEMIDE 40 MG TAB PO SCH (08:38)
[2022-12-14] MEDS: PANTOPRAZOLE 40 MG TABLET PO SCH (08:38)
[2022-12-14] MEDS: carBAMazepine 100 MG TAB.ER.12H PO SCH (08:38)
[2022-12-14] MEDS: DULoxetine HCL 30 MG CAPSULE.DR PO SCH (08:38)
[2022-12-14] MEDS: NON FORMULARY DRUG (Lubiprostone [Amitiza] 24 MCG Capsule) PO SCH ×2 (08:39→21:18)
--- NOTE | 2022-12-14 09:01 | P.PN ---
Subjective Progress Note Date: 12/13/22 Principal diagnosis: R leg wound and cellulitis Patient is a 52-year-old male with a past medical history significant for diabetes mellitus hypertension hyperlipidemia reflux history of diabetic foot infection and osteomyelitis, patient did have a lower extremity wound for which the patient to follow-up with Dr. Coleman at the wound care center, presenting to the hospital with increasing swelling redness to the right lower extremity concerning for cellulitis. On today's evaluation that is 12/13/2022, the patient denies having any fever or any chills, the patient is breathing comfortable the patient right lower extremity discomfort has decreased in intensity no chest pain no shortness of breath or cough no abdominal pain and no diarrhea Objective - Vital Signs Vital signs: Vital Signs Temp 98.0 F 12/13/22 19:29 Pulse 72 12/13/22 19:29 Resp 16 12/13/22 19:29 BP 119/69 12/13/22 19:29 Pulse Ox 99 12/13/22 19:29 FiO2 30 12/13/22 03:38 Intake & Output 12/13/22 12/13/22 12/14/22 06:59 18:59 06:59 Intake Total 720 520 Output Total 400 700 600 Balance -400 20 -80 Intake: IV 20 Sodium Chloride 0.9% 1, 20 000 ml @ 20 mls/hr IV . Q24H [facility] Rx#:[id number] Oral 720 500 Output: Urine 400 700 600 Other: # Voids 1 1 - Exam GENERAL DESCRIPTION: Middle-age male lying in bed in no distress RESPIRATORY SYSTEM: Unlabored breathing , decreased breath sounds at bases HEART: S1 S2 regular rate and rhythm ,no loud murmurs ABDOMEN: Soft , no tenderness EXTREMITIES: Right lower extremity redness has decreased and has significant swelling superficial ulceration but no foul-smelling drainage - Labs CBC & Chem 7: 12/13/22 08:29 12/13/22 08:29 Labs: Abnormal Lab Results - Last 24 Hours (Table) 12/13/22 12/13/22 12/13/22 Range/Units 06:08 08: 08:29 RBC 3.51 L (4.30-5.90) m/uL Hgb 10.6 L (13.0-17.5) gm/dL Hct 33.5 L (39.0-53.0) % Sodium 136 L (137-145) mmol/L BUN 24 H (9-20) mg/dL Glucose 138 H (74-99) mg/dL POC Glucose (mg/dL) 154 H (70-110) mg/dL C-Reactive Protein 3.9 H (<1.0) mg/dL 12/13/22 12/13/22 12/13/22 Range/Units 11:51 17:25 20:01 RBC (4.30-5.90) m/uL Hgb (13.0-17.5) gm/dL Hct (39.0-53.0) % Sodium (137-145) mmol/L BUN (9-20) mg/dL Glucose (74-99) mg/dL POC Glucose (mg/dL) 188 H 199 H 234 H (70-110) mg/dL C-Reactive Protein (<1.0) mg/dL Microbiology - Last 24 Hours (Table) 12/11/22 17:30 Blood Culture - Preliminary Blood 12/11/22 17:45 Blood Culture - Preliminary Blood Assessment and Plan (1) Cellulitis of right leg Current Visit: No Status: Acute Code(s): L03.115 - CELLULITIS OF RIGHT LOWER LIMB SNOMED Code(s): 004789208 Plan: 1patient present to the hospital with increasing swelling redness to the right lower extremity concerning for cellulitis failing outpatient antibiotic therapy patient did have some superficial ulceration likely from ruptured blister and diffuse swelling redness likely streptococcal disease. 2local wound care with Aquacel silver dressing followed by Speedy wrap to keep the swelling down discussed with the RN. 3patient seem to have shown some clinical improvement we will keep the patient on IV cefazolin for another 24 hours and if continued improved to finish therapy with oral Keflex at the bedside questions and concerns were answered Dictation was produced using [employer] dictation software. please excuse any grammatical, word or spelling errors. Time with Patient: Less than 30
[2022-12-14 12:08] LABS: Glucose,Whole Blood 121 mg/dL (70-110)
[2022-12-14 17:18] LABS: Glucose,Whole Blood 267 mg/dL (70-110)
[2022-12-14] MEDS: SODIUM CHLORIDE 0.9% 1,000 ML IV SCH (17:36)
[2022-12-14] MEDS: PREGABALIN 100 MG CAP PO SCH (21:16)
[2022-12-14] MEDS: INSULIN DETEMIR (LEVEMIR) 100 UNIT/ML SYR SQ SCH (21:17)
[2022-12-14] MEDS: LATANOPROST 0.005% OPHTH DROPS 2.5 ML BTL BOTH EYES SCH (21:17)
[2022-12-14 21:18] LABS: Glucose,Whole Blood 272 mg/dL (70-110)
--- NOTE | 2022-12-14 22:25 | P.PN ---
Progress Note - Text Progress Note Date: 12/14/22 52-year-old male with a past medical history significant for diabetes mellitus hypertension hyperlipidemia reflux history of diabetic foot infection and osteomyelitis, patient did have a lower extremity wound for which the patient to follow-up with Dr. Coleman at the wound care center patient mention he recently did develop cellulitis to the right lower extremity that has been treated by Dr. Coleman with an oral antibiotic patient was not clear about the name, patient did have a follow-up with him yesterday noticed to have increasing swelling or redness to the right lower extremity for the patient was sent to the ER for further evaluation Blood work completed in ED reveals a CBC of 8.8, hemoglobin of 11.1). Count of 228, sodium 135, potassium 4.3, BUN/creatinine of 25/1.14 and blood glucose of 230 12/14/2022: I assumed care of the patient today. Sitting up to chair. Tolerating diet. On nasal cannula. Right foot of the dressing. Pain controlled. IV Ancef. Active Medications Acetaminophen (Acetaminophen Tab 325 Mg Tab) 650 mg PO Q6HR PRN PRN Reason: Mild Pain or Fever > 100.5 Hydrocodone Bitart/Acetaminophen (Hydrocodone/Apap 10-325mg 1 Each Tab) 1 each PO TID PRN PRN Reason: Pain Last Admin: 12/13/22 08:12 Dose: 1 each Albuterol/Ipratropium (Ipratropium-Albuterol 3 Ml Neb) 3 ml INHALATION RT-Q6H PRN PRN Reason: Shortness Of Breath Or Wheezing Apixaban (Apixaban 5 Mg Tab) 5 mg PO BID [facility]; Protocol Last Admin: 12/14/22 21:16 Dose: 5 mg Atorvastatin Calcium (Atorvastatin 80 Mg Tab) 80 mg PO DAILY [facility] Last Admin: 12/14/22 08:37 Dose: 80 mg Bisacodyl (Bisacodyl 10 Mg Supp) 10 mg RECTAL HS PRN PRN Reason: Constipation Carbamazepine (Carbamazepine 100 Mg Tab.Er.12h) 100 mg PO DAILY [facility] Last Admin: 12/14/22 08:38 Dose: 100 mg Dicyclomine HCl (Dicyclomine 20 Mg Tab) 20 mg PO BID [facility] Last Admin: 12/14/22 21:16 Dose: 20 mg Duloxetine HCl (Duloxetine Hcl 30 Mg Capsule.Dr) 30 mg PO DAILY [facility] Last Admin: 12/14/22 08:38 Dose: 30 mg Ferrous Sulfate (Ferrous Sulfate 325 Mg Tab) 325 mg PO BID [facility] Last Admin: 12/14/22 21:16 Dose: 325 mg Furosemide (Furosemide 40 Mg Tab) 40 mg PO DAILY [facility] Last Admin: 12/14/22 08:38 Dose: 40 mg Sodium Chloride (Saline 0.9%) 1,000 mls @ 20 mls/hr IV .Q24H [facility] Last Admin: 12/14/22 17:36 Dose: 20 mls/hr Cefazolin Sodium 2 gm/ Sodium (Chloride) 50 mls @ 100 mls/hr IVPB Q8HR [facility]; Protocol Last Admin: 12/14/22 17:33 Dose: 100 mls/hr Insulin Aspart (Insulin Aspart (Novolog) 100 Unit/Ml Vial) 13 unit 0.1 unit/kg (13 unit) SQ AC-TID [facility] Last Admin: 12/14/22 17:33 Dose: 13 unit Insulin Detemir (Insulin Detemir (Levemir) 100 Unit/Ml Syr) 50 unit SQ HS [facility] Last Admin: 12/14/22 21:17 Dose: 50 unit Lactulose (Lactulose 20 Gm/30 Ml Cup) 20 gm PO BID PRN PRN Reason: Constipation Latanoprost (Latanoprost 0.005% Ophth Drops 2.5 Ml Btl) 1 drops BOTH EYES [facility] Last Admin: 12/14/22 21:17 Dose: 1 drops Lisinopril (Lisinopril 2.5 Mg Tab) 2.5 mg PO DAILY [facility] Last Admin: 12/14/22 08:38 Dose: 2.5 mg Loratadine (Loratadine 10 Mg Tab) 10 mg PO DAILY [facility] Last Admin: 12/14/22 08:37 Dose: 10 mg Magnesium Oxide (Magnesium Oxide 400 Mg Tab) 400 mg PO DAILY [facility] Last Admin: 12/14/22 08:37 Dose: 400 mg Metformin HCl (Metformin 500 Mg Tab) 1,000 mg PO BID [facility] Last Admin: 12/14/22 21:16 Dose: 1,000 mg Metolazone (Metolazone 5 Mg Tab) 5 mg PO DAILY [facility] Last Admin: 12/14/22 08:38 Dose: 5 mg Naloxone HCl (Naloxone 0.4 Mg/Ml 1 Ml Vial) 0.2 mg IV Q2M PRN PRN Reason: Opioid Reversal Non-Formulary Medication (Lubiprostone [Amitiza]) 24 mcg PO BID [facility] Last Admin: 12/14/22 21:18 Dose: Not Given Pantoprazole Sodium (Pantoprazole 40 Mg Tablet) 40 mg PO DAILY [facility] Last Admin: 12/14/22 08:38 Dose: 40 mg Potassium Chloride (Potassium Chloride Er 10 Meq Tab.Er.Prt) 10 meq PO DAILY [facility] Last Admin: 12/14/22 08:37 Dose: 10 meq Pregabalin (Pregabalin 100 Mg Cap) 100 mg PO HS [facility] Last Admin: 12/14/22 21:16 Dose: 100 mg Past medical history to include: Bilateral Charcot foot, with left foot osteomyelitis with surgery in January 2021 , diabetes, GERD, peripheral neuropathy, hypertension, hyperlipidemia, factor 5 Leyden mutation on anticoagulation, diabetic gastroparesis, decreased vision in the left eye, depression, history of 2 DVTs, sleep apnea uses BiPAP machine environmental ALLERGIES, fatty liver, herniated disc in the lower back, pain pump implant, narrowing of esophagus Social history: . No history of alcohol or smoking. at [facility] Physical examination: VITAL SIGNS: 98.3, 70, 18, 127/70, 98% 2 L GENERAL: Sitting up in the recliner. EYES: Pupils equal. Conjunctiva normal. HEENT: External appearance of nose and ears normal, oral cavity grossly normal. NECK: JVD unable to assess; masses not palpable. HEART: First and second heart sounds are normal; edema present LUNGS: Respiratory rate increased; diminished breath sounds, ABDOMEN: Soft, no tenderness, no guarding rigidity, liver spleen not palpable, no masses palpable. EXTREMITIES: Right leg in a dressing. PSYCH: AO 3, mood affect normal INVESTIGATIONS, reviewed in the clinical context: December 13: White count 6.16 globin 10.6 platelets 224 potassium 4.4 creatinine 1.12 Assessment and plan: -Acute right lower extremity cellulitis. With wound. Being followed by Dr. Cifuentes from ID. IV [facility]. Local wound care.. -Diabetic left lower extremity wound. One on the anterior jacob down to the bone. One on the plantar surface. followed by Dr. Coleman. -chronic congestive heart failure with preserved LV function: Stable Follow fluid status -Bilateral foot Charcot foot from diabetes -Morbid obesity, BMI 46 Weight loss measures and follow with PCP -Diabetes mellitus type 2, chronically on insulin uncontrolled with hypoglycemia : Follow Accu-Cheks. Levemir to 50 units daily at bedtime -Chronic kidney disease, stage 2 from nephrosclerosis -GERD On Pepcid -Diabetic peripheral neuropathy, -Hyperlipidemia Lipitor -Chronic pain syndrome. morphine pain pump. -Chronic, Bilateral lower extremity venous status, with skin changes -Essential hypertension Sister. 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 Change to oral antibiotics per ID.
[2022-12-15 08:16] LABS: Glucose,Whole Blood 144 mg/dL (70-110)
--- NOTE | 2022-12-15 08:20 | P.PN ---
Subjective Progress Note Date: 12/14/22 Principal diagnosis: R leg wound and cellulitis Patient is a 52-year-old male with a past medical history significant for diabetes mellitus hypertension hyperlipidemia reflux history of diabetic foot infection and osteomyelitis, patient did have a lower extremity wound for which the patient to follow-up with Dr. Coleman at the wound care center, presenting to the hospital with increasing swelling redness to the right lower extremity concerning for cellulitis. On today's evaluation that is 12/14/2022, the patient remains to be afebrile, the patient is breathing comfortably on 2 L nasal cannula oxygen, patient denies having any chest pain or shortness with occasional cough no abdominal pain still coming of some discomfort to the right leg however did have overall improvement. Patient did not have any blood draw today however his white count was 6.6 yesterday and creatinine was 1.12 blood culture has been pending so far Objective - Vital Signs Vital signs: Vital Signs Temp 98.2 F 12/14/22 07:00 Pulse 67 12/14/22 07:00 Resp 18 12/14/22 07:00 BP 125/71 12/14/22 07:00 Pulse Ox 96 12/14/22 09:02 FiO2 30 12/14/22 03:39 Intake & Output 12/13/22 12/14/22 12/14/22 18:59 06:59 18:59 Intake Total 720 740 Output Total 700 600 Balance 20 140 Intake: IV 240 Sodium Chloride 0.9% 1, 240 000 ml @ 20 mls/hr IV . Q24H ROBERTA Rx#:[id number] Oral 720 500 Output: Urine 700 600 Other: # Voids 1 - Exam GENERAL DESCRIPTION: Middle-age male lying in bed in no distress RESPIRATORY SYSTEM: Unlabored breathing , decreased breath sounds at bases HEART: S1 S2 regular rate and rhythm ,no loud murmurs ABDOMEN: Soft , no tenderness EXTREMITIES: Right lower extremity Is currently wrapped in the Speedy wrap no drainage on the dressing - Labs CBC & Chem 7: 12/13/22 08:29 12/13/22 08:29 Labs: Abnormal Lab Results - Last 24 Hours (Table) 12/13/22 12/13/22 12/13/22 Range/Units 11:51 17:25 20:01 POC Glucose (mg/dL) 188 H 199 H 234 H (70-110) mg/dL 12/14/22 Range/Units 06:16 POC Glucose (mg/dL) 189 H (70-110) mg/dL Microbiology - Last 24 Hours (Table) 12/11/22 17:30 Blood Culture - Preliminary Blood 12/11/22 17:45 Blood Culture - Preliminary Blood Assessment and Plan (1) Cellulitis of right leg Current Visit: No Status: Acute Code(s): L03.115 - CELLULITIS OF RIGHT LOWER LIMB SNOMED Code(s): 714526075 Plan: 1patient present to the hospital with increasing swelling redness to the right lower extremity concerning for cellulitis failing outpatient antibiotic therapy patient did have some superficial ulceration likely from ruptured blister and diffuse swelling redness likely streptococcal disease. 2local wound care with Aquacel silver dressing followed by Speedy wrap to keep the swelling down discussed with the RN. 3Patient has shown clinical improvement as far as right lower extremity cellulitis is concerned to continue while inpatient finishing therapy with oral Keflex x10 days Dictation was produced using [employer] dictation software. please excuse any gr ammatical, word or spelling errors. Time with Patient: Less than 30
[2022-12-15] MEDS: MAGNESIUM OXIDE 400 MG TAB PO SCH (08:23)
[2022-12-15] MEDS: POTASSIUM CHLORIDE ER 10 MEQ TAB.ER.PRT PO SCH (08:23)
[2022-12-15] MEDS: carBAMazepine 100 MG TAB.ER.12H PO SCH (08:23)
[2022-12-15] MEDS: INSULIN ASPART (NovoLOG) 100 UNIT/ML VIAL SQ SCH ×2 (08:23→13:26)
[2022-12-15] MEDS: metFORMIN 500 MG TAB PO SCH (08:23)
[2022-12-15] MEDS: DULoxetine HCL 30 MG CAPSULE.DR PO SCH (08:24)
[2022-12-15] MEDS: LORATADINE 10 MG TAB PO SCH (08:24)
[2022-12-15] MEDS: PANTOPRAZOLE 40 MG TABLET PO SCH (08:24)
[2022-12-15] MEDS: DICYCLOMINE 20 MG TAB PO SCH (08:24)
[2022-12-15] MEDS: FERROUS SULFATE 325 MG TAB PO SCH (08:24)
[2022-12-15] MEDS: FUROSEMIDE 40 MG TAB PO SCH (08:24)
[2022-12-15] MEDS: metOLazone 5 MG TAB PO SCH (08:24)
[2022-12-15] MEDS: APIXABAN 5 MG TAB PO SCH (08:24)
[2022-12-15] MEDS: NON FORMULARY DRUG (Lubiprostone [Amitiza] 24 MCG Capsule) PO SCH (08:24)
[2022-12-15] MEDS: ATORVASTATIN 80 MG TAB PO SCH (08:24)
[2022-12-15 10:51] VITALS: BP 109/71; PULSE 65; RESP 17; TEMP 98.1
--- NOTE | 2022-12-15 12:53 | P.PN ---
Subjective Progress Note Date: 12/15/22 Principal diagnosis: R leg wound and cellulitis Patient is a 52-year-old male with a past medical history significant for diabetes mellitus hypertension hyperlipidemia reflux history of diabetic foot infection and osteomyelitis, patient did have a lower extremity wound for which the patient to follow-up with Dr. Coleman at the wound care center, presenting to the hospital with increasing swelling redness to the right lower extremity concerning for cellulitis. On today's evaluation that is 12/15/2022, the patient remains to be afebrile, the patient is breathing comfortably on 2 L nasal cannula oxygen no chest pain shortness of cough and abdominal pain right lower extremity pain and discomfort has improved no nausea no vomiting and no diarrhea No labs were obtained. Blood culture has been negative Objective - Vital Signs Vital signs: Vital Signs Temp 98.1 F 12/15/22 07:00 Pulse 65 12/15/22 07:00 Resp 17 12/15/22 07:00 BP 109/71 12/15/22 07:00 Pulse Ox 97 12/15/22 08:58 FiO2 30 12/15/22 04:52 Intake & Output 12/14/22 12/15/22 12/15/22 18:59 06:59 18:59 Intake Total 118 1300 Output Total 1000 Balance 118 -1000 1300 Intake: Oral 118 1300 Output: Urine 1000 Other: Voiding Method Urinal # Bowel Movements 1 - Exam GENERAL DESCRIPTION: Middle-age male lying in bed in no distress RESPIRATORY SYSTEM: Unlabored breathing , decreased breath sounds at bases HEART: S1 S2 regular rate and rhythm ,no loud murmurs ABDOMEN: Soft , no tenderness EXTREMITIES: Right lower extremity Is currently wrapped in the Speedy wrap no drainage on the dressing - Labs CBC & Chem 7: 12/13/22 08:29 12/13/22 08:29 Labs: Abnormal Lab Results - Last 24 Hours (Table) 12/14/22 12/14/22 12/14/22 Range/Units 12:06 17:15 21:17 POC Glucose (mg/dL) 121 H 267 H 272 H (70-110) mg/dL 12/15/22 Range/Units 08:14 POC Glucose (mg/dL) 144 H (70-110) mg/dL Microbiology - Last 24 Hours (Table) 12/11/22 17:30 Blood Culture - Preliminary Blood 08/18/23 17:45 Blood Culture - Preliminary Blood Assessment and Plan (1) Cellulitis of right leg Current Visit: No Status: Acute Code(s): L03.115 - CELLULITIS OF RIGHT LOWER LIMB SNOMED Code(s): 686476108 Plan: 1patient present to the hospital with increasing swelling redness to the right lower extremity concerning for cellulitis failing outpatient antibiotic therapy patient did have some superficial ulceration likely from ruptured blister and diffuse swelling redness likely streptococcal disease. 2local wound care with Aquacel silver dressing followed by Speedy wrap to keep the swelling down discussed with the RN. 3Patient has shown clinical improvement as far as right lower extremity cellulitis is concerned , plan is to finish therapy with oral Keflex prescription was sent to the pharmacy and continue supportive care Dictation was produced using [employer] dictation software. please excuse any grammatical, word or spelling errors. Time with Patient: Less than 30
[2022-12-15 12:55] LABS: Glucose,Whole Blood 121 mg/dL (70-110)
--- NOTE | 2022-12-15 17:15 | P.DS ---
Providers Date of admission: 12/11/22 19:04 Expected date of discharge: 12/15/22 Attending physician: Heri Alvarez Consults: 12/11/22 19:02 Consult Physician Routine Consulting Provider: Kalina Kim Consult Reason/Comments: cellulitis Do you want consulting provider notified?: Yes Primary care physician: [facility] Course: 52-year-old male with a past medical history significant for diabetes mellitus hypertension hyperlipidemia reflux history of diabetic foot infection and osteomyelitis, patient did have a lower extremity wound for which the patient to follow-up with Dr. Coleman at the wound care center patient mention he recently did develop cellulitis to the right lower extremity that has been treated by Dr. Coleman with an oral antibiotic patient was not clear about the name, patient did have a follow-up with him yesterday noticed to have increasing swelling or redness to the right lower extremity for the patient was sent to the ER for further evaluation Blood work completed in ED reveals a CBC of 8.8, hemoglobin of 11.1). Count of 228, sodium 135, potassium 4.3, BUN/creatinine of 25/1.14 and blood glucose of 230 12/14/2022: I assumed care of the patient today. Sitting up to chair. Tolerating diet. On nasal cannula. Right foot of the dressing. Pain controlled. IV Ancef. 12/15/2022: Patient doing well. No new issues. Discussed with ID Dr. Oconnor. Discharged home on Keflex. Patient to follow-up with Dr. Coleman. Wound care to continue. Past medical history to include: Bilateral Charcot foot, with left foot osteomyelitis with surgery in January 2021 , diabetes, GERD, peripheral neuropathy, hypertension, hyperlipidemia, factor 5 Leyden mutation on anticoagulation, diabetic gastroparesis, decreased vision in the left eye, depression, history of 2 DVTs, sleep apnea uses BiPAP machine environmental ALLERGIES, fatty liver, herniated disc in the lower back, pain pump implant, narrowing of esophagus Social history: . No history of alcohol or smoking. at [facility] Physical examination: VITAL SIGNS: 98.1, 65, 17, 109 with 71, 99% on 2 L GENERAL: Sitting up in the recliner. EYES: Pupils equal. Conjunctiva normal. HEENT: External appearance of nose and ears normal, oral cavity grossly normal. NECK: JVD unable to assess; masses not palpable. HEART: First and second heart sounds are normal; edema present LUNGS: Respiratory rate increased; diminished breath sounds, ABDOMEN: Soft, no tenderness, no guarding rigidity, liver spleen not palpable, no masses palpable. EXTREMITIES: Right leg in a dressing. PSYCH: AO 3, mood affect normal INVESTIGATIONS, reviewed in the clinical context: December 13: White count 6.16 globin 10.6 platelets 224 potassium 4.4 creatinine 1.12 Assessment and plan: -Acute right lower extremity cellulitis. With wound. Being followed by Dr. Cifuentes from ID. received IV Ancef. Local wound care.. Follow-up with Dr. Coleman upon discharge. Complete 10 days of Keflex. -Diabetic left lower extremity wound. One on the anterior jacob down to the bone. One on the plantar surface. followed by Dr. Coleman. -chronic congestive heart failure with preserved LV function: Stable Follow fluid status -Bilateral foot Charcot foot from diabetes -Morbid obesity, BMI 46 Weight loss measures and follow with PCP -Diabetes mellitus type 2, chronically on insulin uncontrolled with hypoglycemia : Follow Accu-Cheks. Levemir to 50 units daily at bedtime -Chronic kidney disease, stage 2 from nephrosclerosis -GERD On Pepcid -Diabetic peripheral neuropathy, -Hyperlipidemia Lipitor -Chronic pain syndrome. morphine pain pump. -Chronic, Bilateral lower extremity venous status, with skin changes -Essential hypertension Sister. 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 Eliquis 5 mg twice a day -Hepatic steatosis, nonalcoholic fatty liver disease -Herniated disc in the lumbar spine Pain medications when necessary -Partial blindness of left eye -Diabetic gastroparesis -Full code Disposition: Home Plan - Discharge Summary Discharge Rx Participant: Yes New Discharge Prescriptions: New Cephalexin [Keflex] 500 mg PO Q8HR 10 Days #30 cap Continue Latanoprost Ophth [Xalatan 0.005%] 1 drop BOTH EYES HS Lubiprostone [Amitiza] 24 mcg PO BID Atorvastatin [Lipitor] 80 mg PO DAILY Dicyclomine [Bentyl] 20 mg PO BID Acetaminophen Tab [Tylenol] 650 mg PO Q6HR PRN tab PRN Reason: Mild Pain Or Fever > 100.5 Lactulose [Cephulac] 20 gm PO BID PRN PRN Reason: Constipation bisacodyL [Dulcolax] 10 mg RECTAL HS PRN PRN Reason: Constipation DULoxetine HCL [Cymbalta] 30 mg PO DAILY Pregabalin [Lyrica] 100 mg PO HS #3 cap Insulin Glargine,Hum.rec.anlog [Lantus Solostar Pen] 50 units SQ HS Loratadine [Claritin] 10 mg PO DAILY metOLazone [Zaroxolyn] 5 mg PO DAILY Potassium Chloride ER [K-Dur 10] 10 meq PO DAILY Ferrous Sulfate [Iron (65 MG Elemental)] 325 mg PO BID Omeprazole 20 mg PO DAILY metFORMIN HCL 1,000 mg PO BID carBAMazepine [carBAMazepine ER] 100 mg PO DAILY Furosemide [Lasix] 40 mg PO DAILY tab Magnesium Oxide [Mag-Ox] 400 mg PO DAILY tab HYDROcodone/APAP 10-325MG [Pinson 10-325] 1 tab PO TID PRN #9 tab PRN Reason: Pain Apixaban [Eliquis] 5 mg PO BID #1 tab Morphine Pain Pump 1 dose INTRATHECA DIRECTED Insulin Lispro [humaLOG Kwikpen] 16 unit SQ TID-W/MEALS Ipratropium-Albuterol Nebulize [Duoneb 0.5 mg-3 mg/3 ml Soln] 3 ml INHALATION RT-Q6H PRN PRN Reason: Shortness Of Breath Or Wheezing lisinopriL [Zestril] 2.5 mg PO DAILY Discharge Medication List Latanoprost Ophth [Xalatan 0.005%] 1 drop BOTH EYES HS 01/23/14 [History] Ferrous Sulfate [Iron (65 MG Elemental)] 325 mg PO BID 10/25/20 [History] Lubiprostone [Amitiza] 24 mcg PO BID 05/15/21 [History] Omeprazole 20 mg PO DAILY 11/10/21 [History] Atorvastatin [Lipitor] 80 mg PO DAILY 06/03/22 [History] metFORMIN HCL 1,000 mg PO BID 06/03/22 [History] Dicyclomine [Bentyl] 20 mg PO BID 07/31/22 [History] carBAMazepine [carBAMazepine ER] 100 mg PO DAILY 07/31/22 [History] Acetaminophen Tab [Tylenol] 650 mg PO Q6HR PRN tab 08/03/22 [Rx] DULoxetine HCL [Cymbalta] 30 mg PO DAILY 08/13/22 [History] Lactulose [Cephulac] 20 gm PO BID PRN 08/13/22 [History] bisacodyL [Dulcolax] 10 mg RECTAL HS PRN 08/13/22 [History] Apixaban [Eliquis] 5 mg PO BID #1 tab 08/26/22 [Rx] Furosemide [Lasix] 40 mg PO DAILY tab 08/26/22 [Rx] HYDROcodone/APAP 10-325MG [Pinson 10-325] 1 tab PO TID PRN #9 tab 08/26/22 [Rx] Magnesium Oxide [Mag-Ox] 400 mg PO DAILY tab 08/26/22 [Rx] Pregabalin [Lyrica] 100 mg PO HS #3 cap 08/26/22 [Rx] Insulin Glargine,Hum.rec.anlog [Lantus Solostar Pen] 50 units SQ HS 12/11/22 [History] Insulin Lispro [humaLOG Kwikpen] 16 unit SQ TID-W/MEALS 12/11/22 [History] Ipratropium-Albuterol Nebulize [Duoneb 0.5 mg-3 mg/3 ml Soln] 3 ml INHALATION RT-Q6H PRN 12/11/22 [History] Loratadine [Claritin] 10 mg PO DAILY 12/11/22 [History] Morphine Pain Pump 1 dose INTRATHECA DIRECTED 12/11/22 [History] Potassium Chloride ER [K-Dur 10] 10 meq PO DAILY 12/11/22 [History] lisinopriL [Zestril] 2.5 mg PO DAILY 12/11/22 [History] metOLazone [Zaroxolyn] 5 mg PO DAILY 12/11/22 [History] Cephalexin [Keflex] 500 mg PO Q8HR 10 Days #30 cap 12/15/22 [Rx] Follow up Appointment(s)/Referral(s): Ayo Coleman DPM [STAFF PHYSICIAN] - 1 Week [facility], [NON-STAFF] - 1 Week Vani Doherty NPC [REFERRING] - 1-2 days Activity/Diet/Wound Care/Special Instructions: wound care per dr kim. Per Dr. Kim, wound care with Aquacell silver dressing followed by VIVI wrap to keep the swelling down.
== END 2022-12-15 13:51 ==
LOC: EC 12:03 → 6NMEDSUR 19:04
PROVIDERS: ADMIT Hospitalist; ATTEND Hospitalist
DX: L03.115 Cellulitis of right lower limb (principal); E11.65 Type 2 diabetes mellitus with hyperglycemia; E11.621 Type 2 diabetes mellitus with foot ulcer; L97.512 Non-pressure chronic ulcer of other part of right foot with fat layer exposed; K21.9 Gastro-esophageal reflux disease without esophagitis; E78.5 Hyperlipidemia, unspecified; E11.43 Type 2 diabetes mellitus with diabetic autonomic (poly)neuropathy; K31.84 Gastroparesis; G47.33 Obstructive sleep apnea (adult) (pediatric); G43.909 Migraine, unspecified, not intractable, without status migrainosus; E11.51 Type 2 diabetes mellitus with diabetic peripheral angiopathy without gangrene; F32.A Depression, unspecified; F41.9 Anxiety disorder, unspecified; E11.610 Type 2 diabetes mellitus with diabetic neuropathic arthropathy; E11.649 Type 2 diabetes mellitus with hypoglycemia without coma; N18.2 Chronic kidney disease, stage 2 (mild); I13.0 Hypertensive heart and chronic kidney disease with heart failure and stage 1 through stage 4 chronic kidney disease, or unspecified chronic kidney disease; I50.9 Heart failure, unspecified; E11.22 Type 2 diabetes mellitus with diabetic chronic kidney disease; G89.4 Chronic pain syndrome; M19.91 Primary osteoarthritis, unspecified site; K76.0 Fatty (change of) liver, not elsewhere classified; M51.26 Other intervertebral disc displacement, lumbar region; H54.62 Unqualified visual loss, left eye, normal vision right eye; E66.01 Morbid (severe) obesity due to excess calories; Z68.42 Body mass index [BMI] 45.0-49.9, adult; Z86.718 Personal history of other venous thrombosis and embolism; Z79.899 Other long term (current) drug therapy; Z79.84 Long term (current) use of oral hypoglycemic drugs; Z79.01 Long term (current) use of anticoagulants; Z79.4 Long term (current) use of insulin; Z82.49 Family history of ischemic heart disease and other diseases of the circulatory system
CPT/HCPCS: 36415; 80048; 80053; 83605; 85025; 86140; 87040; 94660; 94760; 96361; 96365; 96366; 96367; 96372; 99285

== ENCOUNTER 2023-07-14 18:24 | Inpatient (IN) | payer OTHER ==
[2023-07-14 19:17] LABS: Basophils % (A) 1 %; Eosinophils # (A) 0.2 k/uL (0-0.7); Eosinophils % (A) 5 %; HCT 28.7 % (39.0-53.0); HGB 9.6 gm/dL (13.0-17.5); Lymphocytes # (A) 1.4 k/uL (1.0-4.8); Lymphocytes % (A) 29 %; MCH 29.8 pg (25.0-35.0); MCHC 33.4 g/dL (31.0-37.0); MCV 89.1 fL (80.0-100.0); Mean Platelet Volume 9.1; Monocytes # (A) 0.3 k/uL (0-1.0); Monocytes % (A) 7 %; Neutrophils # (A) 2.6 k/uL (1.3-7.7); Neutrophils % (A) 56 %; Platelet Count 159 k/uL (150-450); RBC 3.22 m/uL (4.30-5.90); RDW 14.2 % (11.5-15.5); WBC 4.7 k/uL (3.8-10.6)
[2023-07-14 19:29] LABS: INR 0.9 (<1.2); Partial Thromboplastin Time 24.8 sec (22.0-30.0); Prothrombin Time 10.2 sec (10.0-12.5)
[2023-07-14 19:33] LABS: ALT 17 U/L (4-49); AST 24 U/L (17-59); African American GFR (CKD) 68 (>60 ml/min/1.73 sqM); Albumin 3.4 g/dL (3.5-5.0); Alkaline Phosphatase 111 U/L (38-126); Anion Gap 9 mmol/L; Blood Urea Nitrogen 47 mg/dL (9-20); Calcium 8.3 mg/dL (8.4-10.2); Carbon Dioxide 29 mmol/L (22-30); Chloride 100 mmol/L (98-107); Glucose 252 mg/dL (74-99); Non-African American GFR(CKD) 59 (>60 ml/min/1.73 sqM); Potassium 4.2 mmol/L (3.5-5.1); Sodium 138 mmol/L (137-145); Total Bilirubin 0.3 mg/dL (0.2-1.3); Total Protein 6.4 g/dL (6.3-8.2)
[2023-07-14] MEDS: methylPREDNISolone SOD SUCCI 125 MG/2 ML VIAL IV STA (19:33)
[2023-07-14 19:41] LABS: NT-Pro-B-Type Natriuretic Pept 191 pg/mL
[2023-07-14] MEDS: IPRATROPIUM-ALBUTEROL 3 ML NEB INHALATION STA (19:53)
[2023-07-14 20:26] LABS: C Reactive Protein 3.4 mg/dL (<1.0)
--- NOTE | 2023-07-14 22:25 | XR ---
EXAMINATION TYPE: XR foot limited LT DATE OF EXAM: 07/14/2023 7:32 PM CLINICAL INDICATION:Male, 53 years old with history of osteomyelitis; [facility] COMPARISON: None. TECHNIQUE: Three views left foot were obtained. FINDINGS: There is generalized prominence of the soft tissues which may be from body habitus and/or edema. No d efinite soft tissue gas or radiopaque foreign body. Bones are severely demineralized and there are moderate to severe degenerative changes throughout, gr eatest in the mid foot, limiting assessment. Flatfoot deformity is present. Moderate to large plantar calcaneal spur and small dorsal calcaneal spur. No acute fracture or dislocation is suggested. There appears to be relatively decreased density of th e heads of the second through fifth metatarsals, for which osteomyelitis is a consideration. There ap pears to be some periosteal new bone along the shaft of the great toe proximal phalanx, without evide nce of osseous destructive change. IMPRESSION: 1. Generalized soft tissue prominence throughout the foot. 2. Severe osseous demineralization and diffuse degenerative changes, limiting assessment. 3. Osteomyelitis involvement of the second through fifth metatarsals is possible. Changes in the grea t toe proximal phalanx could be chronic sequela of osteomyelitis. 4. If clinically warranted, further evaluation with MRI over 3 phase bone scan would be recommended.
--- NOTE | 2023-07-14 22:29 | XR ---
EXAMINATION TYPE: XR chest 2V DATE OF EXAM: 07/14/2023 7:32 PM CLINICAL INDICATION:Male, 53 years old with history of difficulty breathing; [facility] COMPARISON: 08/23/2022 TECHNIQUE: XR chest 2V. Frontal and lateral views of the chest.. FINDINGS: Exam is limited by patient body habitus. Lines/Tubes/Devices: No indwelling lines are seen. Heart/mediastinum: Heart appears moderately enlarged but stable. Mediastinal contours appear to be w ithin normal limits. Pulmonary vascularity: Pulmonary vascular congestion. Increased interstitial markings can be seen wit h edema or pneumonitis. An element of chronic change is possible. Lungs/Pleura: There is no evidence of sizable pleural effusion, focal consolidation, or pneumothorax. Linear opacities towards the lung bases are most suggestive of atelectasis. Musculoskeletal: No acute osseous abnormality demonstrated in the limits of the exam. Degenerative c hanges. Elevation of the right hemidiaphragm similar to prior. Other findings: None. IMPRESSION: Cardiomegaly with lung findings suggesting mild CHF. Correlate clinically and follow-up as warranted.
[2023-07-14] MEDS ORDERED: VANCOMYCIN 1,000 MG in SODIUM CHLORIDE 0.9% 250 ML IVPB STA (22:34)
[2023-07-14] MEDS ORDERED: VANCOMYCIN IV PER PHARMACY 1 EACH MISC MISCELLANE PRN (22:34)
[2023-07-14] MEDS ORDERED: NALOXONE 0.4 MG/ML 1 ML VIAL IV PRN (22:38)
[2023-07-14] MEDS ORDERED: MORPHINE SULFATE 4 MG/ML SYRINGE IV PRN (22:38)
--- NOTE | 2023-07-14 22:38 | ED ---
SOB HPI - General Chief Complaint: Shortness of Breath Stated Complaint: cough SOB possible left foot infection Time Seen by Provider: 07/14/23 18:31 Source: patient Mode of arrival: wheelchair Limitations: no limitations - History of Present Illness Initial Comments: This 53-year-old male presents with complaint of cough and difficulty breathing. This has been present for approximately 5 to 7 days. He denies any significant production. He denies any fevers or chills. He states that the cough is severe in nature. His was diagnosed with influenza this past week but his influenza test was negative. He was still prescribed Tamiflu and he took all 5 days without any relief. He denies any chest pain. He has a second complaint of some left foot increased redness and pain. He has had chronic wounds to his left foot for the past 1 year but it has been worse over the past 1 week. He has had some slight yellowish drainage. He normally follows up with the wound care clinic but was unable to be seen today due to his illness. No other complaints or modifying factors. - Related Data Home Medications Medication Instructions Recorded Confirmed Latanoprost Ophth [Xalatan 0.005%] 1 drop BOTH EYES HS 01/23/14 04/16/23 Ferrous Sulfate [Iron (65 MG 325 mg PO BID 10/25/20 04/16/23 Elemental)] Omeprazole 20 mg PO DAILY 11/10/21 04/16/23 Atorvastatin [Lipitor] 80 mg PO DAILY 06/03/22 04/16/23 metFORMIN HCL 1,000 mg PO BID 06/03/22 04/16/23 carBAMazepine [carBAMazepine ER] 100 mg PO DAILY 07/31/22 04/16/23 DULoxetine HCL [Cymbalta] 30 mg PO DAILY 08/13/22 04/16/23 Lactulose [Cephulac] 20 gm PO BID PRN 08/13/22 04/16/23 bisacodyL [Dulcolax] 10 mg RECTAL HS PRN 08/13/22 04/16/23 Insulin Glargine,Hum.rec.anlog 50 units SQ HS 12/11/22 04/16/23 [Lantus Solostar Pen] Ipratropium-Albuterol Nebulize 3 ml INHALATION RT-Q6H PRN 12/11/22 04/16/23 [Duoneb 0.5 mg-3 mg/3 ml Soln] Morphine Pain Pump 1 dose INTRATHECA DIRECTED 12/11/22 04/16/23 Potassium Chloride ER [K-Dur 10] 10 meq PO DAILY 12/11/22 04/16/23 lisinopriL [Zestril] 2.5 mg PO DAILY 12/11/22 04/16/23 Ammonium Lactate Lotion 1 % TOPICAL DAILY 04/09/23 04/16/23 [Lac-Hydrin 12% Lotion] Calcium Carbonate [Rolando-Gest] 200 mg PO DAILY 04/09/23 04/16/23 Dicyclomine [Bentyl] 20 mg PO QID 04/09/23 04/16/23 Doxycycline Hyclate 100 mg PO BID 04/09/23 04/16/23 Ergocalciferol [Vitamin D2 (1250 1,250 mcg PO QMONTHLY 04/09/23 04/16/23 Mcg = 29796 Iu)] Famotidine 20 mg PO HS 04/09/23 04/16/23 Furosemide [Lasix] 40 mg PO DAILY 04/09/23 04/16/23 Piperacillin-Tazobactam [Zosyn] 3.375 gm IVPB Q8HR 04/09/23 04/16/23 Psyllium Husk 100% [Metamucil 6 gm PO DAILY 04/09/23 04/16/23 Packet] Simethicone [Simethicone Chew] 80 mg PO DAILY 04/09/23 04/16/23 Spironolactone [Aldactone] 25 mg PO DAILY 04/09/23 04/16/23 Tamsulosin HCl [Flomax] 0.4 mg PO DAILY 04/09/23 04/16/23 modafiniL [Provigil] 200 mg PO DAILY 04/09/23 04/16/23 Previous Rx's Medication Instructions Recorded Acetaminophen Tab [Tylenol] 650 mg PO Q6HR PRN tab 08/03/22 Apixaban [Eliquis] 5 mg PO BID #1 tab 08/26/22 Furosemide [Lasix] 40 mg PO DAILY tab 08/26/22 HYDROcodone/APAP 10-325MG [[place] 1 tab PO TID PRN #9 tab 08/26/22 10-325] Magnesium Oxide [Mag-Ox] 400 mg PO DAILY tab 08/26/22 Pregabalin [Lyrica] 100 mg PO HS #3 cap 08/26/22 Allergies Allergy/AdvReac Type Severity Reaction Status Date / Time adhesive Allergy Rash/Hives Verified 07/14/23 18:28 Review of Systems ROS Statement: Those systems with pertinent positive or pertinent negative responses have been documented in the HPI. ROS Other: All systems not noted in ROS Statement are negative. Past Medical History Past Medical History: Blood Disorder, Diabetes Mellitus, Deep Vein Thrombosis (DVT), GERD/Reflux, Hyperlipidemia, Hypertension, Musculoskeletal Disorder, Osteoarthritis (OA), Sleep Apnea/CPAP/BIPAP Additional Past Medical History / Comment(s): IDDM type II, neuropathy bilateral feet with R foot worse, charcot foot R/L, currently sores L foot and is NWB, recent surgery R foot with boot an can wt bear as tolerated, gastroparesis, hiatal hernia, esophageal narrowing (scarring)/past dysphagia/has had dilations, factor V leiden, 2 DVT's L leg, another superficial blood clot L leg, chronic back pain/has pain pump, DDD and bulging discs, legally blind L eye since , migraines, PVD, fatty liver, MEL with trilogy machine. Last Myocardial Infarction Date:: 11/07/21 History of Any Multi-Drug Resistant Organisms: VRE Date of last positivie culture/infection: 08/17/22 MDRO Source:: Left Leg Past Surgical History: Tonsillectomy Additional Past Surgical History / Comment(s): R foot/ankle surgery at [facility] with bone removal/hardware inserted, I&D L foot, pain pump insertion, colonoscopy, EGDs with dilations, UVPPP, eye surgery as an . Past Anesthesia/Blood Transfusion Reactions: Family History of Problems w/ Anesthesia Additional Past Anesthesia/Blood Transfusion Reaction / Comment(s): STATES "M OTHER CRASHES" "passes out"-with anesthesia,"needs to have a barrel inspector dose" Past Psychological History: Anxiety, Depression Smoking Status: Never smoker Past Alcohol Use History: None Reported Past Drug Use History: None Reported - Past Family History Father Family Medical History: Cancer Additional Family Medical History / Comment(s): BLADDER CANCER Mother Family Medical History: CVA/TIA, Diabetes Mellitus, Myocardial Infarction ([place]) General Exam - General Exam Comments Initial Comments: GENERAL: The patient is well nourished and well hydrated. VITAL SIGNS: Heart rate, blood pressure, respiratory rate reviewed as recorded in nurse's notes. EYES: Pupils are round and reactive. Extraocular movements are intact. No conjunctival / lid redness or swelling. ENT: No external evidence of injury, swelling, or ecchymosis. Airway is patent. Throat is clear. NECK: Nontender. No swelling or evidence of injury. No subcutaneous emphysema. Trachea is midline. No thyroid mass. HEART: Regular rate and rhythm. Good peripheral pulses. LUNGS/CHEST: Occasional rhonchi noted bilaterally. No ecchymosis, subcutaneous emphysema, or tenderness. ABDOMEN: Abdomen soft without tenderness. No palpable masses or organomegaly. No peritoneal signs. No abdominal wall swelling or ecchymosis. EXTREMITIES: Tenderness noted to the inferior aspect of the left midfoot. Significant deformity of left foot. Normal muscle tone and function. No thoracolumbar tenderness. NEUROLOGIC: Sensation is grossly intact. Cranial nerve exam reveals face is symmetrical, tongue is midline, speech is clear. SKIN: No abrasions or ecchymosis is noted. No induration or masses noted. Multiple chronic wounds noted to the left lower extremity from the mid jacob down into the foot. Most pronounced is the wound in the mid plantar aspect of left foot as well as the medial portion of the left heel. There is minimal yellowish discharge noted. There is diffuse erythema to the left lower extremity consistent with cellulitis. PSYCHIATRIC: Alert and oriented. Appropriate behavior and judgment. Limitations: no limitations Course Vital Signs 07/14/23 07/14/23 07/14/23 18:26 19:56 20:06 Temperature 98.7 F Pulse Rate 83 72 71 Respiratory 18 18 Rate Blood Pressure 133/69 120/68 O2 Sat by Pulse 97 100 Oximetry 07/14/23 07/14/23 20:12 21:13 Temperature Pulse Rate 80 74 Respiratory 18 Rate Blood Pressure 121/73 O2 Sat by Pulse 92 L Oximetry Medical Decision Making - Medical Decision Making The patient was seen and examined. All diagnostics were reviewed. IV is established and he received Solu-Medrol intravenously as well as 2 DuoNeb breathing treatments. He later received Unasyn as well as vancomycin intravenously. The laboratory came back showing elevation of the CRP. Influenza test is positive. There is mild renal insufficiency as well as hype rglycemia. Anemia is also noted. The chest x-ray does not show any acute process per my interpretation. Radiologist notes possible congestive heart failure but it is felt less likely based on clinical scenario and low BNP testing. X-ray of the left foot shows severe demineralization and arthritic changes per my interpretation. Radiologist notes that there is a possibility of osteomyelitis to the left foot and additional studies may be necessary to further rule out osteomyelitis. His oxygen initially is 92% on room air. It increases to 95% on recheck on 2 L per nasal cannula. It is felt as though he would benefit from admission to the hospital. He is agreeable. Case is discussed with Dr. Lizama who is agreeable with admission. Was pt. sent in by a medical professional or institution (, PA, PAINTER CHASSIS, urgent care, hospital, or retirement...) When possible be specific @ -[No] Did you speak to anyone other than the patient for history (EMS, parent, family, police, friend...)? What history was obtained from this source @ -Patient's is present who gives good history as well. Did you review nursing and triage notes (agree or disagree)? Why? @ -[I reviewed and agree with nursing and triage notes] Were old charts reviewed (outside hosp., previous admission, EMS record, old EKG, old radiological studies, urgent care reports/EKG's, retirement records)? Report findings @ -Old charts were reviewed and additional past medical history is obtained. Differential Diagnosis (chest pain, altered mental status, abdominal pain women, abdominal pain men, vaginal bleeding, weakness, fever, dyspnea, syncope, headache, dizziness, GI bleed, back pain, seizure, CVA, palpatations, mental health, musculoskeletal)? @ -Left lower extremity cellulitis, chronic wounds left leg, possible osteomyelitis left foot, RSV, COVID, influenza, pneumonia. EKG interpreted by me (3pts min.). @ -EKG shows a normal sinus rhythm at a rate of 73. There is no acute ST or T wave changes noted per my interpretation. Intervals are normal. X-rays interpreted by me (1pt min.). @ -As above CT interpreted by me (1pt min.). @ -[None done] U/S interpreted by me (1pt. min.). @ -[None done] What testing was considered but not performed or refused? (CT, X-rays, U/S, labs)? Why? @ -[None] What meds were considered but not given or refused? Why? @ -[None] Did you discuss the management of the patient with other professionals (professionals i.e. , PA, PAINTER CHASSIS, lab, RT, psych nurse, outreach and education social worker, tour bus driver, teacher, strike warfare/missile systems officer, working manager)? Give summary @ -Case is discussed with medicine and they are agreeable with admission. Was smoking cessation discussed for >3mins.? @ -[No] Was critical care preformed (if so, how long)? @ -[No] Were there social determinants of health that impacted care today? How? (Homelessness, low income, unemployed, alcoholism, drug addiction, transport ation, low edu. Level, literacy, decrease access to med. care, penitentiary, rehab)? @ -[No] Was there de-escalation of care discussed even if they declined (Discuss DNR or withdrawal of care, Hospice)? DNR status @ -[No] What co-morbidities impacted this encounter? (DM, HTN, Smoking, COPD, CAD, Cancer, CVA, ARF, Chemo, Hep., AIDS, mental health diagnosis, sleep apnea, morbid obesity)? @ -Diabetes mellitus, charcot foot, history of COVID with pulmonary sequelae. Was patient admitted / discharged? Hospital course, mention meds given and route, prescriptions, significant lab abnormalities, going to OR and other pertinent info. @ -Patient is admitted, please see above. Undiagnosed new problem with uncertain prognosis? @ -[No] Drug Therapy requiring intensive monitoring for toxicity (Heparin, Nitro, Insulin, Cardizem)? @ -[No] Were any procedures done? @ -[No] Diagnosis/symptom? @ -Respiratory insufficiency, influenza, hypoxia, left lower extremity cellulitis, possible osteomyelitis. Acute, or Chronic, or Acute on Chronic? @ -Acute and chronic Uncomplicated (without systemic symptoms) or Complicated (systemic symptoms)? @ -Uncomplicated Side effects of treatment? @ -[No] Exacerbation, Progression, or Severe Exacerbation? @ -[No] Poses a threat to life or bodily function? How? (Chest pain, [place], [place], pneumonia, PE, COPD, DKA, ARF, appy, cholecystitis, CVA, Diverticulitis, Homicidal, Suicidal, threat to staff... and all critical care pts) @ -Hypoxia and upper respiratory infection and patient with multiple comorbidities is potentially life-threatening. - Lab Data Result diagrams: 07/14/23 19:06 07/14/23 19:06 Lab Results 07/14/23 07/14/23 07/14/23 Range/Units 19:06 19:06 19:06 WBC 4.7 (3.8-10.6) k/uL RBC 3.22 L (4.30-5.90) m/uL Hgb 9.6 L (13.0-17.5) gm/dL Hct 28.7 L (39.0-53.0) % MCV 89.1 (80.0-100.0) fL MCH 29.8 (25.0-35.0) pg MCHC 33.4 (31.0-37.0) g/dL RDW 14.2 (11.5-15.5) % Plt Count 159 (150-450) k/uL MPV 9.1 Neutrophils % 56 % Lymphocytes % 29 % Monocytes % 7 % Eosinophils % 5 % Basophils % 1 % Neutrophils # 2.6 (1.3-7.7) k/uL Lymphocytes # 1.4 (1.0-4.8) k/uL Monocytes # 0.3 (0-1.0) k/uL Eosinophils # 0.2 (0-0.7) k/uL Basophils # 0.0 (0-0.2) k/uL PT 10.2 (10.0-12.5) sec INR 0.9 (<1.2) APTT 24.8 (22.0-30.0) sec Sodium 138 (137-145) mmol/L Potassium 4.2 (3.5-5.1) mmol/L Chloride 100 (98-107) mmol/L Carbon Dioxide 29 (22-30) mmol/L Anion Gap 9 mmol/L BUN 47 H (9-20) mg/dL Creatinine 1.36 H (0.66-1.25) mg/dL Est GFR (CKD-EPI)AfAm 68 (>60 ml/min/1.73 sqM) Est GFR (CKD-EPI)NonAf 59 (>60 ml/min/1.73 sqM) Glucose 252 H (74-99) mg/dL Lactic Ac Sepsis Rflx Plasma Lactic Acid Ger (0.7-2.0) mmol/L Calcium 8.3 L (8.4-10.2) mg/dL Total Bilirubin 0.3 (0.2-1.3) mg/dL AST 24 (17-59) U/L ALT 17 (4-49) U/L Alkaline Phosphatase 111 (38-126) U/L Troponin I (0.000-0.034) ng/mL C-Reactive Protein 3.4 H (<1.0) mg/dL NT-Pro-B Natriuret Pep 191 pg/mL Total Protein 6.4 (6.3-8.2) g/dL Albumin 3.4 L (3.5-5.0) g/dL Influenza Type A (PCR) (Not Detectd) Influenza Type B (PCR) (Not Detectd) RSV (PCR) (Not Detectd) SARS-CoV-2 (PCR) (Not Detectd) 07/14/23 07/14/23 07/14/23 Range/Units 19:06 19:06 19:06 WBC (3.8-10.6) k/uL RBC (4.30-5.90) m/uL Hgb (13.0-17.5) gm/dL Hct (39.0-53.0) % MCV (80.0-100.0) fL MCH (25.0-35.0) pg MCHC (31.0-37.0) g/dL RDW (11.5-15.5) % Plt Count (150-450) k/uL MPV Neutrophils % % Lymphocytes % % Monocytes % % Eosinophils % % Basophils % % Neutrophils # (1.3-7.7) k/uL Lymphocytes # (1.0-4.8) k/uL Monocytes # (0-1.0) k/uL Eosinophils # (0-0.7) k/uL Basophils # (0-0.2) k/uL PT (10.0-12.5) sec INR (<1.2) APTT (22.0-30.0) sec Sodium (137-145) mmol/L Potassium (3.5-5.1) mmol/L Chloride (98-107) mmol/L Carbon Dioxide (22-30) mmol/L Anion Gap mmol/L BUN (9-20) mg/dL Creatinine (0.66-1.25) mg/dL Est GFR (CKD-EPI)AfAm (>60 ml/min/1.73 sqM) Est GFR (CKD-EPI)NonAf (>60 ml/min/1.73 sqM) Glucose (74-99) mg/dL Lactic Ac Sepsis Rflx Plasma Lactic Acid Ger 2.2 H* (0.7-2.0) mmol/L Calcium (8.4-10.2) mg/dL Total Bilirubin (0.2-1.3) mg/dL AST (17-59) U/L ALT (4-49) U/L Alkaline Phosphatase (38-126) U/L Troponin I <0.012 (0.000-0.034) ng/mL C-Reactive Protein (<1.0) mg/dL NT-Pro-B Natriuret Pep pg/mL Total Protein (6.3-8.2) g/dL Albumin (3.5-5.0) g/dL Influenza Type A (PCR) Detected A (Not Detectd) Influenza Type B (PCR) Not Detected (Not Detectd) RSV (PCR) Not Detected (Not Detectd) SARS-CoV-2 (PCR) Not Detected (Not Detectd) 07/14/23 07/14/23 Range/Units 19:58 22:00 WBC (3.8-10.6) k/uL RBC (4.30-5.90) m/uL Hgb (13.0-17.5) gm/dL Hct (39.0-53.0) % MCV (80.0-100.0) fL MCH (25.0-35.0) pg MCHC (31.0-37.0) g/dL RDW (11.5-15.5) % Plt Count (150-450) k/uL MPV Neutrophils % % Lymphocytes % % Monocytes % % Eosinophils % % Basophils % % Neutrophils # (1.3-7.7) k/uL Lymphocytes # (1.0-4.8) k/uL Monocytes # (0-1.0) k/uL Eosinophils # (0-0.7) k/uL Basophils # (0-0.2) k/uL PT (10.0-12.5) sec INR (<1.2) APTT (22.0-30.0) sec Sodium (137-145) mmol/L Potassium (3.5-5.1) mmol/L Chloride (98-107) mmol/L Carbon Dioxide (22-30) mmol/L Anion Gap mmol/L BUN (9-20) mg/dL Creatinine (0.66-1.25) mg/dL Est GFR (CKD-EPI)AfAm (>60 ml/min/1.73 sqM) Est GFR (CKD-EPI)NonAf (>60 ml/min/1.73 sqM) Glucose (74-99) mg/dL Lactic Ac Sepsis Rflx Y Plasma Lactic Acid Ger 1.5 (0.7-2.0) mmol/L Calcium (8.4-10.2) mg/dL Total Bilirubin (0.2-1.3) mg/dL AST (17-59) U/L ALT (4-49) U/L Alkaline Phosphatase (38-126) U/L Troponin I (0.000-0.034) ng/mL C-Reactive Protein (<1.0) mg/dL NT-Pro-B Natriuret Pep pg/mL Total Protein (6.3-8.2) g/dL Albumin (3.5-5.0) g/dL Influenza Type A (PCR) (Not Detectd) Influenza Type B (PCR) (Not Detectd) RSV (PCR) (Not Detectd) SARS-CoV-2 (PCR) (Not Detectd) Disposition Clinical Impression: Influenza, Hypoxia, Cough, Cellulitis, Anemia, Lactic acidosis Disposition: ADMITTED IP TO THIS [facility] Condition: Fair Time of Disposition: 22:37 Decision Date: 07/14/23 Decision Time: 22:38
[2023-07-14] MEDS: AMPICILLIN-SULBACTAM 3 GM in SODIUM CHLORIDE 0.9% 100 ML IVPB STA (23:11)
[2023-07-14] MEDS ORDERED: DEXTROSE 50% SYRINGE 50 ML IVP PRN (23:15)
[2023-07-14] MEDS ORDERED: ALBUTEROL NEBULIZED 2.5 MG/3 ML INHALATION PRN (23:34)
[2023-07-14] MEDS ORDERED: METOCLOPRAMIDE 10 MG TAB PO PRN (23:35)
[2023-07-15 00:12] LABS: Glucose,Whole Blood 302 mg/dL (70-110)
[2023-07-15] MEDS: INSULIN ASPART (NovoLOG) 100 UNIT/ML VIAL SQ ONE (00:30)
[2023-07-15] MEDS: VANCOMYCIN 2,000 MG in SODIUM CHLORIDE 0.9% 500 ML 500 ML IVPB STA (00:36)
[2023-07-15] MEDS: IPRATROPIUM-ALBUTEROL 3 ML NEB INHALATION SCH (01:18)
[2023-07-15 01:33] LABS: Erythrocyte Sedimentation Rate 36 mm/Hr (0-20)
[2023-07-15] MEDS: AMMONIUM LACTATE 12% LOTION 225 GM BTL TOPICAL SCH (01:37)
[2023-07-15] MEDS: guaiFENesin-DM 100-10MG/5ML 10 ML CUP PO PRN (02:17)
--- NOTE | 2023-07-15 04:18 | P.CNPUL ---
History of Present Illness Consult date: 07/15/23 Requesting physician: Ricky Farmer Reason for consult: dyspnea Chief complaint: Shortness of breath and cough History of present illness: I am seeing this patient in new consultation today 07/15/2023 after he presented with several days of flulike symptoms. Patient is a 53-year-old white male with past medical history significant for diabetes mellitus, chronic kidney disease, chronic lower extremity wounds which he follows at the wound care center, Charcot foot, hypertension, hyperlipidemia, obstructive sleep apnea with home CPAP, morbid obesity, chronic hypoxemic respiratory failure, factor V [place], DVTs in the left leg, among other medical comorbidities. Patient returns to the emergency room yesterday evening complaining of 1 week of runny nose, sore throat, nonproductive cough, chest congestion, and progressively worsening shortness of breath. No noted fevers. No chest pain. His had tested positive for influenza A last Wednesday or . She was treated with Tamiflu. He also received a 5-day course of Tamiflu because he was symptomatic at that time. He has completed his course of Tamiflu. The main reason for him coming into the emergency room was his breathing. Of note, he also has a chronic left foot wound that is draining a purulent yellow discharge. He did have an appointment to become reestablished with the wound care clinic, but was unable to make it due to transportation issues and his sickness. Patient is currently sitting up in the bedside recliner, on 2 L/min nasal cannula, in no acute distress. He does wear 2 L of home oxygen. He also has a home trilogy machine that he wears at night. Unfortunately, this is not at the bedside. Chest x-ray on arrival showed cardiomegaly with mild pulmonary vascular congestion and increased interstitial edema or pneumonitis. Patient does take Lasix on an outpatient basis daily. He has not missed any doses. As far as the patient's left foot and x-ray was done which showed general soft tissue prominence throughout the foot. There was severe osseous demineralization and diffuse degenerative changes limiting assessment. There was osteomyelitis involving the second through fifth metatarsals possible. Changes in the great toe proximal phalanx could be chronic sequela of osteomyelitis. Patient was placed on antibiotics including Unasyn and vancomycin in the emergency room. Infectious disease consult was placed. CBC on arrival: WC count 4.7, hemoglobin 9.6, hematocrit 28.7, platelets 159. BMP on arrival: Sodium 138, potassium 4.2, chloride 100, serum bicarb 29, BUN 47, creatinine 1.36, glucose 252. Lactic acid level 2.2 and down to 1.5. Troponin less than 0.012. NT proBNP low. Influenza A positive on arrival. Negative for influenza B, RSV, COVID. Patient is currently afebrile. Vital signs are stable. Review of Systems REVIEW OF SYSTEMS: CONSTITUTIONAL: Denies any recent significant weight loss or weight gain. EYES: Denies change in vision. EARS, NOSE, MOUTH, THROAT: Denies headaches, denies sore throat. CARDIOVASCULAR: Denies chest pain, palpitations or syncopal episodes. RESPIRATORY: See HPI. GASTROINTESTINAL: Denies change in appetite, abdominal pain, nausea and vomiting, or diarrhea GENITOURINARY: Denies hematuria, denies infections. MUSKULOSKELETAL: Admits left foot redness, swelling, and discharge. INTEGUMENTARY: Denies rash, denies eczema. NEUROLOGICAL: Denies recent memory loss, no recent seizure activity. PSYCHIATRIC: Denies anxiety, denies depression. HEMATOLOGIC/LYMPHATIC: Denies anemia, denies enlarged lymph node Past Medical History Past Medical History: Blood Disorder, Diabetes Mellitus, Deep Vein Thrombosis (DVT), GERD/Reflux, Hyperlipidemia, Hypertension, Musculoskeletal Disorder, Osteoarthritis (OA), Sleep Apnea/CPAP/BIPAP Additional Past Medical History / Comment(s): IDDM type II, neuropathy bilateral feet with R foot worse, charcot foot R/L, currently sores L foot and is NWB, recent surgery R foot with boot an can wt bear as tolerated, gastroparesis, hiatal hernia, esophageal narrowing (scarring)/past dysphagia/has had dilations, factor V leiden, 2 DVT's L leg, another superficial blood clot L leg, chronic back pain/has pain pump, DDD and bulging discs, legally blind L eye since , migraines, PVD, fatty liver, MEL with trilogy machine. Last Myocardial Infarction Date:: 11/07/21 History of Any Multi-Drug Resistant Organisms: VRE Date of last positivie culture/infection: 08/17/22 MDRO Source:: Left Leg Past Surgical History: Tonsillectomy Additional Past Surgical History / Comment(s): R foot/ankle surgery at [facility] with bone removal/hardware inserted, I&D L foot, pain pump insertion, colonoscopy, EGDs with dilations, UVPPP, eye surgery as an . Past Anesthesia/Blood Transfusion Reactions: Family History of Problems w/ Anesthesia Additional Past Anesthesia/Blood Transfusion Reaction / Comment(s): STATES "MOTHER CRASHES" "passes out"-with anesthesia,"needs to have a credit collections clerk dose" Past Psychological History: Anxiety, Depression Additional Psychological History / Comment(s): Pt resides with his spouse. He has a cane but has been using a walker more often lately. He can now drive after cataract surgery. He has glucometer and uses bipap with oxygen at night. Smoking Status: Never smoker Past Alcohol Use History: None Reported Past Drug Use History: None Reported - Past Family History Father Family Medical History: Cancer Additional Family Medical History / Comment(s): BLADDER CANCER Mother Family Medical History: CVA/TIA, Diabetes Mellitus, Myocardial Infarction ([place]) Medications and Allergies Home Medications Medication Instructions Recorded Confirmed Type Latanoprost Ophth [Xalatan 0.005%] 1 drop BOTH EYES HS 01/23/14 07/14/23 History Ferrous Sulfate [Iron (65 MG 325 mg PO BID 10/25/20 07/14/23 History Elemental)] Omeprazole 20 mg PO AC-BRKFST 11/10/21 07/14/23 History Atorvastatin [Lipitor] 80 mg PO DAILY 06/03/22 07/14/23 History metFORMIN HCL 1,000 mg PO BID 06/03/22 07/14/23 History Apixaban [Eliquis] 5 mg PO BID #1 tab 08/26/22 07/14/23 Rx Magnesium Oxide [Mag-Ox] 400 mg PO DAILY tab 08/26/22 07/14/23 Rx Insulin Glargine,Hum.rec.anlog 52 units SQ HS 12/11/22 07/14/23 History [Lantus Solostar Pen] Potassium Chloride ER [K-Dur 10] 10 meq PO DAILY 12/11/22 07/14/23 History lisinopriL [Zestril] 2.5 mg PO DAILY 12/11/22 07/14/23 History Dicyclomine [Bentyl] 20 mg PO BID 04/09/23 07/14/23 History Ergocalciferol [Vitamin D2 (1250 1,250 mcg PO QMONTHLY 04/09/23 07/14/23 History Mcg = 83293 Iu)] Furosemide [Lasix] 40 mg PO DAILY 04/09/23 07/14/23 History Ammonium Lactate Lotion 1 applic TOPICAL DAILY 07/14/23 07/14/23 History [Lac-Hydrin 12% Lotion] Cholecalciferol [Vitamin D3 (25 25 mcg PO DAILY 07/14/23 07/14/23 History Mcg = 1000 Iu)] Cyclobenzaprine [Flexeril] 10 mg PO BID 07/14/23 07/14/23 History Dextroamphetamine/Amphetamine 20 mg PO DAILY 07/14/23 07/14/23 History [Adderall Xr 20 mg Capsule] HYDROcodone/APAP 10-325MG [[place] 1 tab PO BID 07/14/23 07/14/23 History 10-325] Insulin Lispro [humaLOG Kwikpen] 16 unit SQ TID-W/MEALS 07/14/23 07/14/23 History Metoclopramide [Reglan] 10 mg PO TID PRN 07/14/23 07/15/23 History Patient Own Pump 0 bag 07/14/23 07/14/23 History tadalafiL 5 mg PO DAILY 07/14/23 07/15/23 History Allergies Allergy/AdvReac Type Severity Reaction Status Date / Time adhesive Allergy Rash/Hives Verified 07/14/23 18:28 Physical Exam Vitals: Vital Signs Temp Pulse Pulse Resp BP BP Pulse Ox 07/15/23 00:28 98.4 F 76 16 130/71 95 07/14/23 21:13 74 18 121/73 92 L 07/14/23 20:12 80 07/14/23 20:06 71 18 120/68 100 07/14/23 19:56 72 07/14/23 18:26 98.7 F 83 18 133/69 97 Intake and Output 07/14/23 07/14/23 07/15/23 14:59 22:59 06:59 Other: Weight 122.47 kg 122.47 kg GENERAL EXAM: Alert, 53-year-old morbidly obese male, sitting up in the bed side recliner, Comfortable in no apparent distress. HEAD: Normocephalic and atraumatic EYES: Normal reaction of pupils, equal size. NOSE: Clear with pink turbinates. THROAT: No erythema or exudates. NECK: No masses, no JVD. CHEST: No chest wall deformity. LUNGS: Equal air entry with scattered rhonchi, wheezing, and crackles. On 2 L/min nasal cannula. No conversational dyspnea or accessory muscle use while at rest CVS: S1 and S2 normal with no audible murmur, regular rhythm. No extra heart sounds ABDOMEN: Obese abdomen, no hepatosplenomegaly, active bowel sounds, no guarding or rigidity. SPINE: No scoliosis or deformity SKIN: No rashes CENTRAL NERVOUS SYSTEM: No focal deficits, tone is normal in all 4 extremities. EXTREMITIES: Significant lower extremity swelling with chronic venous stasis changes. Charcot foot deformity bilaterally. Ulceration on the ventral side of the left foot, draining a yellow purulent fluid. Limited mobility of this foot. Erythemic and edematous. No clubbing, or cyanosis. Peripheral pulses are intact. Results - Laboratory Findings CBC and BMP: 07/14/23 19:06 07/15/23 07:00 PT/INR, D-dimer PT 10.2 sec (10.0-12.5) 07/14/23 19:06 INR 0.9 (<1.2) 07/14/23 19:06 Abnormal lab findings: Abnormal Labs 07/14/23 07/14/23 07/14/23 19:06 19:06 19:06 RBC 3.22 L Hgb 9.6 L Hct 28.7 L ESR 36 H BUN 47 H Creatinine 1.36 H Glucose 252 H POC Glucose (mg/dL) Plasma Lactic Acid Ger 2.2 H* Calcium 8.3 L C-Reactive Protein 3.4 H Albumin 3.4 L Influenza Type A (PCR) 07/14/23 07/15/23 19:06 00:11 RBC Hgb Hct ESR BUN Creatinine Glucose POC Glucose (mg/dL) 302 H Plasma Lactic Acid Ger Calcium C-Reactive Protein Albumin Influenza Type A (PCR) Detected A - Diagnostic Findings Chest x-ray: image reviewed Assessment and Plan Assessment: Acute influenza A infection/bronchitis, no obvious superimposed pneumonia on chest x-ray, already treated with a 5-day course of Tamiflu twice daily. Acute on chronic dyspnea, secondary to above Chronic diastolic congestive heart failure, chest x-ray shows cardiomegaly with mild vascular congestion and mild interstitial edema. Chronic hypoxemic respiratory failure, maintained on 2 L/min nasal cannula Possible osteomyelitis of the left foot, left foot x-ray was shows general soft tissue prominence throughout the foot. There was severe osseous demineralization and diffuse degenerative changes limiting assessment. There was osteomyelitis involving the second through fifth metatarsals possible. Turner ges in the great toe proximal phalanx could be chronic sequela of osteomyelitis. Diabetes mellitus, type II, insulin-dependent Chronic left lower extremity diabetic foot ulcer Charcot foot, bilaterally Chronic bilateral lower extremity edema and venous stasis Morbid obesity, with a BMI of 43.6 kg/m Obstructive sleep apnea, with home trilogy vent History of factor V deficiency History of DVT, anticoagulated on Eliquis History of hypertension History of hyperlipidemia History of GERD Chronic kidney disease stage III Anemia of chronic disease Plan: Patient's medications, labs, chest x-ray reviewed Continue supplemental oxygen, currently on 2 L/min nasal cannula, which he uses chronically Patient asked to have someone bring in his trilogy ventilator Patient already completed course of Tamiflu Continue supportive care. Continue as needed bronchodilators. Continue Robitussin DM. Infectious disease added to manage patient's antibiotics Wound care has also been asked to see this patient. Patient's home medications have been restarted. Eliquis has been restarted. P.o. Lasix 40 mg daily restarted We will continue to follow I have personally seen and examined the patient, performed the documentation and the assessment and plan as written. Number of minutes spent on the visit:20 This is a joint evaluation that was done along with the nurse practitioner. The patient has multiple medical problems and comorbidities. The patient was hospitalized for an acute influenza A infection. He has some increased cough and congestion. No significant sputum production. No altered mentation. No interval worsening in his oxygen requirements and the patient remains on 2 L of oxygen by nasal cannula. I do not believe that the patient has been vaccinated for influenza for this current season. The patient is currently on DuoNeb updrafts, IV Solu-Medrol, and the patient will be asked to bring in his trilogy ventilator from home. Will be kept on Robitussin DM. Infectious disease will be checking this patient regarding the possibility of a left foot osteomyelitis. Labs were reviewed. Chest x-ray was reviewed. No other changes from the pulmonary standpoint. This evaluation was done and more than 30 minutes. Time with Patient: Greater than 30
[2023-07-15 05:35] LABS: Glucose,Whole Blood 405 mg/dL (70-110)
[2023-07-15] MEDS: AMPICILLIN-SULBACTAM 3 GM in SODIUM CHLORIDE 0.9% 100 ML IVPB SCH (06:01)
[2023-07-15] MEDS: INSULIN ASPART (NovoLOG) 100 UNIT/ML VIAL SQ SCH ×3 (06:01→18:56)
[2023-07-15] MEDS: PANTOPRAZOLE 40 MG TABLET PO SCH (07:28)
[2023-07-15] MEDS: NON FORMULARY DRUG (Dextroamphetamine/Amphetamine [Adderall Xr 20 Mg Capsule] 20 MG Cap.Er PO SCH (09:02)
[2023-07-15] MEDS: NON FORMULARY DRUG (Tadalafil [Tadalafil] 5 MG Tablet) PO SCH (09:03)
[2023-07-15] MEDS: DICYCLOMINE 20 MG TAB PO SCH (09:17)
[2023-07-15] MEDS: POTASSIUM CHLORIDE ER 10 MEQ TAB.ER.PRT PO SCH (09:18)
[2023-07-15] MEDS: CHOLECALCIFEROL 25 MCG (1000 IU) TABLET PO SCH (09:18)
[2023-07-15] MEDS: CYCLOBENZAPRINE 10 MG TAB PO SCH (09:18)
[2023-07-15] MEDS: FUROSEMIDE 40 MG TAB PO SCH (09:18)
[2023-07-15] MEDS: APIXABAN 5 MG TAB PO SCH (09:18)
[2023-07-15] MEDS: ATORVASTATIN 80 MG TAB PO SCH (09:18)
[2023-07-15] MEDS: MAGNESIUM OXIDE 400 MG TAB PO SCH (09:18)
[2023-07-15] MEDS: FERROUS SULFATE 325 MG TAB PO SCH (09:18)
[2023-07-15] MEDS: metFORMIN 500 MG TAB PO SCH (09:19)
[2023-07-15 09:59] LABS: African American GFR (CKD) 82 (>60 ml/min/1.73 sqM); Anion Gap 8 mmol/L; Blood Urea Nitrogen 42 mg/dL (9-20); Calcium 8.1 mg/dL (8.4-10.2); Carbon Dioxide 26 mmol/L (22-30); Chloride 103 mmol/L (98-107); Glucose 350 mg/dL (74-99); Non-African American GFR(CKD) 71 (>60 ml/min/1.73 sqM); Potassium 4.7 mmol/L (3.5-5.1); Sodium 137 mmol/L (137-145)
[2023-07-15] MEDS: methylPREDNISolone SOD SUCCI 125 MG/2 ML VIAL IV SCH (10:17)
[2023-07-15 11:23] LABS: Glucose,Whole Blood 329 mg/dL (70-110)
[2023-07-15] MEDS: INSULIN DETEMIR (LEVEMIR) 100 UNIT/ML SYR SQ SCH (13:42)
--- NOTE | 2023-07-15 14:04 | P.CONS ---
History of Present Illness - Reason for Consult Consult date: 07/15/23 wound care - History of Present Illness This is a 53-year-old patient known to the wound care center who seen Dr. Coleman last week and instructed to come for evaluation. Patient previously had a fracture to the left lower extremity resulting in a nonpressure ulceration to the left plantar foot lateral aspect. The ulceration was healed however has reopened resulting in a ulceration measuring approximately 1 x 1 x 0.2 cm the periwound does show maceration. The ulceration has granulation to the wound bed wound edges are not attached to the wound base no tunneling or undermining noted. Review Of Systems: Constitutional: No fever, no chills, no night sweats. No weight change. No weakness, fatigue or lethargy. No daytime sleepiness. Integumentary:reports wounds, no lesions. No rash or pruritus. No unusual bruising. No change in hair or nails. Physical exam: General Appearance: Alert, cooperative, no distress, appears stated age. Skin: See HPI all other Skin color, texture, tugor normal, no rashes or lesions. Neurologic: Alert oriented x3 Assessment: 1. Nonpressure ulceration left plantar foot with fat layer exposure 2. Diabetic foot ulcer 3. Charcot foot Plan: 1.Apply honey alginate, saline moist gauze, dry gauze, rolled gauze and secure with paper tape. Wrap with Speedy wrap for compression. Patient is scheduled to be seen in the wound care center next Wednesday Thank you for the consultation any questions please contact the wound care center DNP note has been reviewed and discussed with Dr. Carrillo and the impression and plan of care has been directed as dictated. Past Medical History Past Medical History: Blood Disorder, Diabetes Mellitus, Deep Vein Thrombosis (DVT), GERD/Reflux, Hyperlipidemia, Hypertension, Musculoskeletal Disorder, Osteoarthritis (OA), Sleep Apnea/CPAP/BIPAP Additional Past Medical History / Comment(s): IDDM type II, neuropathy bilateral feet with R foot worse, charcot foot R/L, currently sores L foot and is NWB, recent surgery R foot with boot an can wt bear as tolerated, gastroparesis, hiat al hernia, esophageal narrowing (scarring)/past dysphagia/has had dilations, factor V leiden, 2 DVT's L leg, another superficial blood clot L leg, chronic back pain/has pain pump, DDD and bulging discs, legally blind L eye since , migraines, PVD, fatty liver, MEL with trilogy machine. Last Myocardial Infarction Date:: 11/07/21 History of Any Multi-Drug Resistant Organisms: VRE Year Discovered:: 08/17/22 MDRO Source:: Left Leg Past Surgical History: Tonsillectomy Additional Past Surgical History / Comment(s): R foot/ankle surgery at [facility] with bone removal/hardware inserted, I&D L foot, pain pump insertion, colonoscopy, EGDs with dilations, UVPPP, eye surgery as an . Past Anesthesia/Blood Transfusion Reactions: Family History of Problems w/ Anesthesia Additional Past Anesthesia/Blood Transfusion Reaction / Comm: STATES "MOTHER CRASHES" "passes out"-with anesthesia,"needs to have a health analytics consultant dose" Past Psychological History: Anxiety, Depression Additional Psychological History / Comment(s): Pt resides with his spouse. He has a cane but has been using a walker more often lately. He can now drive after cataract surgery. He has glucometer and uses bipap with oxygen at night. Smoking Status: Never smoker Past Alcohol Use History: None Reported Past Drug Use History: None Reported - Past Family History Father Family Medical History: Cancer Additional Family Medical History / Comment(s): BLADDER CANCER Mother Family Medical History: CVA/TIA, Diabetes Mellitus, Myocardial Infarction ([place]) Medications and Allergies Home Medications Medication Instructions Recorded Confirmed Type Latanoprost Ophth [Xalatan 0.005%] 1 drop BOTH EYES HS 01/23/14 07/14/23 History Ferrous Sulfate [Iron (65 MG 325 mg PO BID 10/25/20 07/14/23 History Elemental)] Omeprazole 20 mg PO AC-BRKFST 11/10/21 07/14/23 History Atorvastatin [Lipitor] 80 mg PO DAILY 06/03/22 07/14/23 History metFORMIN HCL 1,000 mg PO BID 06/03/22 07/14/23 History Apixaban [Eliquis] 5 mg PO BID #1 tab 08/26/22 07/14/23 Rx Magnesium Oxide [Mag-Ox] 400 mg PO DAILY tab 08/26/22 07/14/23 Rx Insulin Glargine,Hum.rec.anlog 52 units SQ HS 12/11/22 07/14/23 History [Lantus Solostar Pen] Potassium Chloride ER [K-Dur 10] 10 meq PO DAILY 12/11/22 07/14/23 History lisinopriL [Zestril] 2.5 mg PO DAILY 12/11/22 07/14/23 History Dicyclomine [Bentyl] 20 mg PO BID 04/09/23 07/14/23 History Ergocalciferol [Vitamin D2 (1250 1,250 mcg PO QMONTHLY 04/09/23 07/14/23 History Mcg = 29058 Iu)] Furosemide [Lasix] 40 mg PO DAILY 04/09/23 07/14/23 History Ammonium Lactate Lotion 1 applic TOPICAL DAILY 07/14/23 07/14/23 History [Lac-Hydrin 12% Lotion] Cholecalciferol [Vitamin D3 (25 25 mcg PO DAILY 07/14/23 07/14/23 History Mcg = 1000 Iu)] Cyclobenzaprine [Flexeril] 10 mg PO BID 07/14/23 07/14/23 History Dextroamphetamine/Amphetamine 20 mg PO DAILY 07/14/23 07/14/23 History [Adderall Xr 20 mg Capsule] HYDROcodone/APAP 10-325MG [[place] 1 tab PO BID 07/14/23 07/14/23 History 10-325] Insulin Lispro [humaLOG Kwikpen] 16 unit SQ TID-W/MEALS 07/14/23 07/14/23 History Metoclopramide [Reglan] 10 mg PO TID PRN 07/14/23 07/15/23 History Patient Own Pump 0 bag 07/14/23 07/14/23 History tadalafiL 5 mg PO DAILY 07/14/23 07/15/23 History Allergies Allergy/AdvReac Type Severity Reaction Status Date / Time adhesive Allergy Rash/Hives Verified 07/14/23 18:28 Physical Exam Vitals: Vital Signs Temp Pulse Pulse Resp BP BP Pulse Ox 07/15/23 11:49 68 07/15/23 11:39 61 07/15/23 08:24 68 07/15/23 08:00 97.9 F 65 19 146/73 96 07/15/23 04:05 70 07/15/23 03:55 72 03/21/24 00:28 98.4 F 76 16 130/71 95 07/14/23 21:13 74 18 121/73 92 L 07/14/23 20:12 80 07/14/23 20:06 71 18 120/68 100 07/14/23 19:56 72 07/14/23 18:26 98.7 F 83 18 133/69 97 Intake and Output 07/14/23 07/15/23 07/15/23 22:59 06:59 14:59 Other: Voiding Method Urinal # Voids 0 Weight 122.47 kg 122.47 kg Results CBC & Chem 7: 07/14/23 19:06 07/15/23 07:00 Labs: Abnormal Lab Results - Last 24 Hours (Table) 07/14/23 07/14/23 07/14/23 Range/Units 19:06 19:06 19:06 RBC 3.22 L (4.30-5.90) m/uL Hgb 9.6 L (13.0-17.5) gm/dL Hct 28.7 L (39.0-53.0) % ESR 36 H (0-20) mm/Hr BUN 47 H (9-20) mg/dL Creatinine 1.36 H (0.66-1.25) mg/dL Glucose 252 H (74-99) mg/dL POC Glucose (mg/dL) (70-110) mg/dL Hemoglobin A1c (<=6.0) % Plasma Lactic Acid Ger 2.2 H* (0.7-2.0) mmol/L Calcium 8.3 L (8.4-10.2) mg/dL C-Reactive Protein 3.4 H (<1.0) mg/dL Albumin 3.4 L (3.5-5.0) g/dL Influenza Type A (PCR) (Not Detectd) 07/14/23 07/15/23 07/15/23 Range/Units 19:06 00:11 05:34 RBC (4.30-5.90) m/uL Hgb (13.0-17.5) gm/dL Hct (39.0-53.0) % ESR (0-20) mm/Hr BUN (9-20) mg/dL Creatinine (0.66-1.25) mg/dL Glucose (74-99) mg/dL POC Glucose (mg/dL) 302 H 405 H (70-110) mg/dL Hemoglobin A1c (<=6.0) % Plasma Lactic Acid Ger (0.7-2.0) mmol/L Calcium (8.4-10.2) mg/dL C-Reactive Protein (<1.0) mg/dL Albumin (3.5-5.0) g/dL Influenza Type A (PCR) Detected A (Not Detectd) 07/15/23 07/15/23 07/15/23 Range/Units 07:00 07:00 11:22 RBC (4.30-5.90) m/uL Hgb (13.0-17.5) gm/dL Hct (39.0-53.0) % ESR (0-20) mm/Hr BUN 42 H (9-20) mg/dL Creatinine (0.66-1.25) mg/dL Glucose 350 H (74-99) mg/dL POC Glucose (mg/dL) 329 H (70-110) mg/dL Hemoglobin A1c 8.3 H (<=6.0) % Plasma Lactic Acid Ger (0.7-2.0) mmol/L Calcium 8.1 L (8.4-10.2) mg/dL C-Reactive Protein (<1.0) mg/dL Albumin (3.5-5.0) g/dL Influenza Type A (PCR) (Not Detectd) Assessment and Plan (1) Non-pressure chronic ulcer of other part of left foot with fat layer exposed Current Visit: No Status: Acute Code(s): L97.522 - NON-PRS CHRONIC ULCER OTH PRT LEFT FOOT W FAT LAYER EXPOSED SNOMED Code(s): 91194992991989899 (2) Charcot's joint, left ankle and foot Current Visit: No Status: Acute Code(s): M14.672 - CHARCOT'S JOINT, LEFT ANKLE AND FOOT SNOMED Code(s): 518219975 (3) Type 2 diabetes mellitus with foot ulcer Current Visit: No Status: Acute Code(s): E11.621 - TYPE 2 DIABETES MELLITUS WITH FOOT ULCER; L97.509 - NON-PRESSURE CHRONIC ULCER OTH PRT UNSP FOOT W UNSP SEVERITY SNOMED Code(s): 002714241
[2023-07-15 16:37] LABS: Glucose,Whole Blood 297 mg/dL (70-110)
--- NOTE | 2023-07-15 18:02 | P.HPIM ---
History of Present Illness H&P Date: 07/15/23 Chief Complaint: Dyspnea, nonproductive cough Is a 53-year-old gentleman with past medical history significant for morbid obesity, diabetes mellitus, chronic lower extremity wounds, osteomyelitis, Charcot foot, chronic left foot diabetic ulcer follows up with Dr. Coleman,hypert ension, hyperlipidemia, chronic respiratory failure, obstructive sleep apnea, factor V Leiden, DVTs of left leg and multiple other medical issues, presented to the ER with progressive dyspnea, 1 week of chest congestion, nonproductive cough, sore throat, without fevers, tested positive for influenza A last week and completed 5 day course of Tamiflu. In the ER patient noted to have purulent yellow drainage from his chronic left foot ulcer. Patient reports he missed his reestablishment appointment with wound care center due to being sick and transportation issues. Patient's med regimen consist of Lasix and states he has been compliant. Chest x-ray reported cardiomegaly with mild pulmonary vascular congestion, increased interstitial markings, possibly pneumonitis. Left foot x-ray reported general soft tissue prominence throughout the foot. There was severe osseous demineralization and diffuse degenerative changes limiting assessment. There was osteomyelitis involving the second through fifth metatarsals possible. Changes in the great toe proximal phalanx could be chronic sequela of osteomyelitis. Antibiotics of vancomycin use and Unasyn initiated in the ER. Admission labs:WBC count 4.7, hemoglobin 9.6,platelets 159,Sodium 138, potassium 4.2, chloride 100, serum bicarb 29, BUN 47, creatinine 1.36, glucose 252. Lactic acid level 2.2 , repeat level 1.5. Troponin negativ e x 1. NT proBNP 191. Influenza A positive, Negative for influenza B, RSV, COVID. Vital signs stable, afebrile, maintaining O2 sats of mid to high 90s on 2 L nasal cannula. evaluated by pulmonary with recommendations noted and appreciated. Infectious disease consult in place. Review of Systems ROS Statement: Those systems with pertinent positive or pertinent negative responses have been documented in the HPI. ROS Other: All systems not noted in ROS Statement are negative. Past Medical History Past Medical History: Blood Disorder, Diabetes Mellitus, Deep Vein Thrombosis (DVT), GERD/Reflux, Hyperlipidemia, Hypertension, Musculoskeletal Disorder, Osteoarthritis (OA), Sleep Apnea/CPAP/BIPAP Additional Past Medical History / Comment(s): IDDM type II, neuropathy bilateral feet with R foot worse, charcot foot R/L, currently sores L foot and is NWB, recent surgery R foot with boot an can wt bear as tolerated, gastroparesis, hiatal hernia, esophageal narrowing (scarring)/past dysphagia/has had dilations, factor V leiden, 2 DVT's L leg, another superficial blood clot L leg, chronic back pain/has pain pump, DDD and bulging discs, legally blind L eye since , migraines, PVD, fatty liver, MEL with trilogy machine. Last Myocardial Infarction Date:: 11/07/21 History of Any Multi-Drug Resistant Organisms: VRE Date of last positivie culture/infection: 08/17/22 MDRO Source:: Left Leg Past Surgical History: Tonsillectomy Additional Past Surgical History / Comment(s): R foot/ankle surgery at [facility] with bone removal/hardware inserted, I&D L foot, pain pump insertion, colonoscopy, EGDs with dilations, UVPPP, eye surgery as an . Past Anesthesia/Blood Transfusion Reactions: Family History of Problems w/ Anesthesia Additional Past Anesthesia/Blood Transfusion Reaction / Comment(s): STATES "MOTHER CRASHES" "passes out"-with anesthesia,"needs to have a saw tailer dose" Past Psychological History: Anxiety, Depression Additional Psychological History / Comment(s): Pt resides with his spouse. He has a cane but has been using a walker more often lately. He can now drive after cataract surgery. He has glucometer and uses bipap with oxygen at night. Smoking Status: Never smoker Past Alcohol Use History: None Reported Past Drug Use History: None Reported - Past Family History Father Family Medical History: Cancer Additional Family Medical History / Comment(s): BLADDER CANCER Mother Family Medical History: CVA/TIA, Diabetes Mellitus, Myocardial Infarction ([place]) Medications and Allergies Home Medications Medication Instructions Recorded Confirmed Type Latanoprost Ophth [Xalatan 0.005%] 1 drop BOTH EYES HS 01/23/14 07/14/23 History Ferrous Sulfate [Iron (65 MG 325 mg PO BID 10/25/20 07/14/23 History Elemental)] Omeprazole 20 mg PO AC-BRKFST 11/10/21 07/14/23 History Atorvastatin [Lipitor] 80 mg PO DAILY 06/03/22 07/14/23 History metFORMIN HCL 1,000 mg PO BID 06/03/22 07/14/23 History Apixaban [Eliquis] 5 mg PO BID #1 tab 08/26/22 07/14/23 Rx Magnesium Oxide [Mag-Ox] 400 mg PO DAILY tab 08/26/22 07/14/23 Rx Insulin Glargine,Hum.rec.anlog 52 units SQ HS 12/11/22 07/14/23 History [Lantus Solostar Pen] Potassium Chloride ER [K-Dur 10] 10 meq PO DAILY 12/11/22 07/14/23 History lisinopriL [Zestril] 2.5 mg PO DAILY 12/11/22 07/14/23 History Dicyclomine [Bentyl] 20 mg PO BID 04/09/23 07/14/23 History Ergocalciferol [Vitamin D2 (1250 1,250 mcg PO QMONTHLY 04/09/23 07/14/23 History Mcg = 82255 Iu)] Furosemide [Lasix] 40 mg PO DAILY 04/09/23 07/14/23 History Ammonium Lactate Lotion 1 applic TOPICAL DAILY 07/14/23 07/14/23 History [Lac-Hydrin 12% Lotion] Cholecalciferol [Vitamin D3 (25 25 mcg PO DAILY 07/14/23 07/14/23 History Mcg = 1000 Iu)] Cyclobenzaprine [Flexeril] 10 mg PO BID 07/14/23 07/14/23 History Dextroamphetamine/Amphetamine 20 mg PO DAILY 07/14/23 07/14/23 History [Adderall Xr 20 mg Capsule] HYDROcodone/APAP 10-325MG [[place] 1 tab PO BID 07/14/23 07/14/23 History 10-325] Insulin Lispro [humaLOG Kwikpen] 16 unit SQ TID-W/MEALS 07/14/23 07/14/23 History Metoclopramide [Reglan] 10 mg PO TID PRN 07/14/23 07/15/23 History Patient Own Pump 0 bag 07/14/23 07/14/23 History tadalafiL 5 mg PO DAILY 07/14/23 07/15/23 History Allergies Allergy/AdvReac Type Severity Reaction Status Date / Time adhesive Allergy Rash/Hives Verified 07/14/23 18:28 Physical Exam Vitals: Vital Signs Temp Pulse Pulse Resp BP BP Pulse Ox 07/15/23 11:49 68 07/15/23 11:39 61 07/15/23 08:24 68 07/15/23 08:00 97.9 F 65 19 146/73 96 07/15/23 04:05 70 07/15/23 03:55 72 07/15/23 00:28 98.4 F 76 16 130/71 95 07/14/23 21:13 74 18 121/73 92 L 07/14/23 20:12 80 07/14/23 20:06 71 18 120/68 100 07/14/23 19:56 72 07/14/23 18:26 98.7 F 83 18 133/69 97 Intake and Output 07/14/23 07/15/23 07/15/23 22:59 06:59 14:59 Other: Voiding Method Urinal # Voids 0 Weight 122.47 kg 122.47 kg PHYSICAL EXAM: VITAL SIGNS: [As above] GENERAL: Obese, alert and oriented x 3, sitting up in chair, no acute distress. No conversational dyspnea. HEENT: Normocephalic, conjunctivae normal. eyes normal. NECK: Supple, no JVD. No thyroid enlargement. No LNs CARDIOVASCULAR: S1, S2 regular.No murmur RESPIRATION: Unlabored, equal air entry , scattered rhonchi, expiratory wheezing and fine crackles. ABDOMEN: Soft, obese, nondistended nontender . No guarding, no rigidity . no masses palpable. No ascites, No hepatosplenomegaly.Bowel sounds heard. LEGS: Bilateral lower extremity edema, chronic venous stasis ,bilateral lower extremities with Charcot foot, left foot plantar diabetic ulcer dressing with purulent drainage. Left heel pressure ulcer. DP pulses present. PSYCHIATRY: Alert and oriented X3, mood and affect normal. NERVOUS SYSTEM: Cranial N 2-12 grossly normal. No focal deficits. Strength and sensation grossly intact. Skin: Warm and dry, no rash Results CBC & Chem 7: 07/16/23 07:15 07/16/23 07:15 Labs: Abnormal Lab Results - Last 24 Hours (Table) 07/14/23 07/14/23 07/14/23 Range/Units 19:06 19:06 19:06 RBC 3.22 L (4.30-5.90) m/uL Hgb 9.6 L (13.0-17.5) gm/dL Hct 28.7 L (39.0-53.0) % ESR 36 H (0-20) mm/Hr BUN 47 H (9-20) mg/dL Creatinine 1.36 H (0.66-1.25) mg/dL Glucose 252 H (74-99) mg/dL POC Glucose (mg/dL) (70-110) mg/dL Hemoglobin A1c (<=6.0) % Plasma Lactic Acid Ger 2.2 H* (0.7-2.0) mmol/L Calcium 8.3 L (8.4-10.2) mg/dL C-Reactive Protein 3.4 H (<1.0) mg/dL Albumin 3.4 L (3.5-5.0) g/dL Influenza Type A (PCR) (Not Detectd) 07/14/23 07/15/23 07/15/23 Range/Units 19:06 00:11 05:34 RBC (4.30-5.90) m/uL Hgb (13.0-17.5) gm/dL Hct (39.0-53.0) % ESR (0-20) mm/Hr BUN (9-20) mg/dL Creatinine (0.66-1.25) mg/dL Glucose (74-99) mg/dL POC Glucose (mg/dL) 302 H 405 H (70-110) mg/dL Hemoglobin A1c (<=6.0) % Plasma Lactic Acid Ger (0.7-2.0) mmol/L Calcium (8.4-10.2) mg/dL C-Reactive Protein (<1.0) mg/dL Albumin (3.5-5.0) g/dL Influenza Type A (PCR) Detected A (Not Detectd) 07/15/23 07/15/23 07/15/23 Range/Units 07:00 07:00 11:22 RBC (4.30-5.90) m/uL Hgb (13.0-17.5) gm/dL Hct (39.0-53.0) % ESR (0-20) mm/Hr BUN 42 H (9-20) mg/dL Creatinine (0.66-1.25) mg/dL Glucose 350 H (74-99) mg/dL POC Glucose (mg/dL) 329 H (70-110) mg/dL Hemoglobin A1c 8.3 H (<=6.0) % Plasma Lactic Acid Ger (0.7-2.0) mmol/L Calcium 8.1 L (8.4-10.2) mg/dL C-Reactive Protein (<1.0) mg/dL Albumin (3.5-5.0) g/dL Influenza Type A (PCR) (Not Detectd) Thrombosis Risk Factor Assmnt - Choose All That Apply Any of the Below Risk Factors Present?: Yes Each Factor Represents 1 point: Age 41-60 years, Obesity (BMI >25) Thrombosis Risk Factor Assessment Total Risk Factor Score: 2 Thrombosis Risk Factor Assessment Level: Low Risk Assessment and Plan Assessment: Acute influenza A infection, completed Tamiflu outpatient, Chronic hypoxic respiratory failure secondary to the above Possible osteomyelitis of the left foot, x-rays reported possible osteomyelitis involving the second through fifth metatarsal. Changes in the great toe proximal phalanx could be chronic sequela of osteomyelitis. Chronic left plantar foot diabetic ulcer with purulent drainage on admission Chronic cellulitis of bilateral lower extremities, left greater than right, follows with Dr. 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 Maintain aggressive pulmonary toileting with nebulized broncho dilators, IV steroids and antibiotics. wound care management infectious disease consults in place with recommendations pending. Antibiotics as per ID. Blood sugars uncontrolled, med regimen adjusted, close monitoring of Accu-Cheks. The impression and plan of care has been dictated as directed. : I performed a history and examination of this patient, discussed the same with the dictator. I agree with the dictator's note ,documented as a scribe. Any additional findings or plans will be noted.
[2023-07-15] MEDS: VANCOMYCIN 2,000 MG in SODIUM CHLORIDE 0.9% 500 ML 500 ML IVPB SCH (18:50)
[2023-07-15] MEDS: LATANOPROST 0.005% OPHTH DROPS 2.5 ML BTL BOTH EYES SCH (20:45)
[2023-07-15] MEDS ORDERED: INSULIN DETEMIR (LEVEMIR) 100 UNIT/ML SYR SQ SCH (21:00)
--- NOTE | 2023-07-15 21:10 | P.CONS ---
History of Present Illness - Reason for Consult Consult date: 07/15/23 Cellulitis Requesting physician: Ricky Farmer - Chief Complaint Cough and difficulty breathing x few days - History of Present Illness Patient is a 53-year-old male with a past medical history significant for diabetes mellitus hypertension hyperlipidemia DVT did have a history of diabetic foot infection and osteomyelitis presenting to [facility] ER for evaluation of cough and difficulty breathing and this patient symptom has been going on for about 5 to 7 days before presentation to the hospital patient cough is mild to moderate intensity but not bring up any sputum with complaint of shortness of breath on exertion no significant chest pain did have some URI symptoms no nausea no vomiting no abdominal pain no diarrhea apparently patient was diagnosed with influenza and treated with Tamiflu patient also tested positive for influenza A RSV COVID testing was negative patient did have a white count of 4.7 creatinine is 1.7 liver isms are normal patient did have a chest x- ray cardiomegaly with lung findings suggestive of mild CHF correlate clinically patient did have x-ray of the foot generalized soft tissue prominence throughout the foot severe bony demineralization osteomyelitis movement of the second through fifth metatarsals possible patient was admitted to hospital infectious he was consulted for the left lower extremity cellulitis and diabetic foot infection has been empirically started on vancomycin and Unasyn Review of Systems Positive point and negatives has been mentioned in the HPI, complete review of systems was performed and all other systems are negative Past Medical History Past Medical History: Blood Disorder, Diabetes Mellitus, Deep Vein Thrombosis (DVT), GERD/Reflux, Hyperlipidemia, Hypertension, Musculoskeletal Disorder, Osteoarthritis (OA), Sleep Apnea/CPAP/BIPAP Additional Past Medical History / Comment(s): IDDM type II, neuropathy bilateral feet with R foot worse, charcot foot R/L, currently sores L foot and is NWB, recent surgery R foot with boot an can wt bear as tolerated, gastroparesis, hiatal hernia, esophageal narrowing (scarring)/past dysphagia/has had dilations, factor V leiden, 2 DVT's L leg, another superficial blood clot L leg, chronic back pain/has pain pump, DDD and bulging discs, legally blind L eye since , migraines, PVD, fatty liver, MEL with trilogy machine. Last Myocardial Infarction Date:: 11/07/21 History of Any Multi-Drug Resistant Organisms: VRE Year Discovered:: 08/17/22 MDRO Source:: Left Leg Past Surgical History: Tonsillectomy Additional Past Surgical History / Comment(s): R foot/ankle surgery at [facility] with bone removal/hardware inserted, I&D L foot, pain pump insertion, colonoscopy, EGDs with dilations, UVPPP, eye surgery as an . Past Anesthesia/Blood Transfusion Reactions: Family History of Problems w/ Anesthesia Additional Past Anesthesia/Blood Transfusion Reaction / Comm: STATES "MOTHER CRASHES" "passes out"-with anesthesia,"needs to have a flying squad worker dose" Past Psychological History: Anxiety, Depression Additional Psychological History / Comment(s): Pt resides with his spouse. He has a cane but has been using a walker more often lately. He can now drive after cataract surgery. He has glucometer and uses bipap with oxygen at night. Smoking Status: Never smoker Past Alcohol Use History: None Reported Past Drug Use History: None Reported - Past Family History Father Family Medical History: Cancer Additional Family Medical History / Comment(s): BLADDER CANCER Mother Family Medical History: CVA/TIA, Diabetes Mellitus, Myocardial Infarction ([place]) Medications and Allergies Home Medications Medication Instructions Recorded Confirmed Type Latanoprost Ophth [Xalatan 0.005%] 1 drop BOTH EYES HS 01/23/14 07/14/23 History Ferrous Sulfate [Iron (65 MG 325 mg PO BID 10/25/20 07/14/23 History Elemental)] Omeprazole 20 mg PO AC-BRKFST 11/10/21 07/14/23 History Atorvastatin [Lipitor] 80 mg PO DAILY 06/03/22 07/14/23 History metFORMIN HCL 1,000 mg PO BID 06/03/22 07/14/23 History Apixaban [Eliquis] 5 mg PO BID #1 tab 08/26/22 07/14/23 Rx Magnesium Oxide [Mag-Ox] 400 mg PO DAILY tab 08/26/22 07/14/23 Rx Insulin Glargine,Hum.rec.anlog 52 units SQ HS 12/11/22 07/14/23 History [Lantus Solostar Pen] Potassium Chloride ER [K-Dur 10] 10 meq PO DAILY 12/11/22 07/14/23 History lisinopriL [Zestril] 2.5 mg PO DAILY 12/11/22 07/14/23 History Dicyclomine [Bentyl] 20 mg PO BID 04/09/23 07/14/23 History Ergocalciferol [Vitamin D2 (1250 1,250 mcg PO QMONTHLY 04/09/23 07/14/23 History Mcg = 72206 Iu)] Furosemide [Lasix] 40 mg PO DAILY 04/09/23 07/14/23 History Ammonium Lactate Lotion 1 applic TOPICAL DAILY 07/14/23 07/14/23 History [Lac-Hydrin 12% Lotion] Cholecalciferol [Vitamin D3 (25 25 mcg PO DAILY 07/14/23 07/14/23 History Mcg = 1000 Iu)] Cyclobenzaprine [Flexeril] 10 mg PO BID 07/14/23 07/14/23 History Dextroamphetamine/Amphetamine 20 mg PO DAILY 07/14/23 07/14/23 History [Adderall Xr 20 mg Capsule] Insulin Lispro [humaLOG Kwikpen] 16 unit SQ TID-W/MEALS 07/14/23 07/14/23 Hist ory Metoclopramide [Reglan] 10 mg PO TID PRN 07/14/23 07/15/23 History Patient Own Pump 0 bag 07/14/23 07/14/23 History tadalafiL 5 mg PO DAILY 07/14/23 07/15/23 History Acetaminophen Tab [Tylenol] 650 mg PO Q6HR PRN tab 07/21/23 Rx Albuterol Inhaler [Ventolin Hfa 2 puff INHALATION Q6H PRN 30 Days 07/21/23 Rx Inhaler] #1 each Budesonide-Formot 160-4.5 Mcg 2 puff INHALATION BID #10.2 gm 07/21/23 Rx [Symbicort 160-4.5 Mcg Inhaler] Ciprofloxacin HCl [Cipro] 500 mg PO Q12HR 10 Days #20 tab 07/21/23 Rx Doxycycline [Vibramycin] 100 mg PO BID 10 Days #20 capsule 07/21/23 Rx HYDROcodone/APAP 10-325MG [[place] 0.5 tab PO BID #0 07/21/23 07/14/23 Rx 10-325] guaiFENesin-DM 100-10MG/5ML 10 ml PO Q6HR PRN #120 ml 07/21/23 Rx [Robitussin DM] predniSONE 10 mg PO DIRECTED #30 tab 07/21/23 Rx Allergies Allergy/AdvReac Type Severity Reaction Status Date / Time adhesive Allergy Rash/Hives Verified 07/14/23 18:28 Physical Exam Vitals: Vital Signs Temp Pulse Pulse Resp BP BP Pulse Ox 07/15/23 11:39 61 07/15/23 08:24 68 07/15/23 08:00 97.9 F 65 19 146/73 96 07/15/23 04:05 70 07/15/23 03:55 72 07/15/23 00:28 98.4 F 76 16 130/71 95 07/14/23 21:13 74 18 121/73 92 L 07/14/23 20:12 80 07/14/23 20:06 71 18 120/68 100 07/14/23 19:56 72 07/14/23 18:26 98.7 F 83 18 133/69 97 Intake and Output 07/14/23 07/15/23 07/15/23 22:59 06:59 14:59 Other: Voiding Method Urinal # Voids 0 Weight 122.47 kg 122.47 kg GENERAL DESCRIPTION: Middle-aged male lying in bed, no distress. No tachypnea or accessory muscle of respiration use. HEENT: Shows Pallor , no scleral icterus. Oral mucous membrane is dry. No pharyngeal erythema or thrush NECK: Trachea central, no thyromegaly. LUNGS: Unlabored breathing. Coarse breath sounds bilaterally HEART: S1, S2, regular rate and rhythm. No loud murmur ABDOMEN: Soft, no tenderness , guarding or rigidity, no organomegaly EXTREMITIES: Left foot plantar aspect did have a wound with minimal bloodstained drainage with associated swelling and redness to the left lower extremity SKIN: No rash, no masses palpable. NEUROLOGICAL: The patient is awake, alert, oriented x3, mood and affect normal. Results CBC & Chem 7: 07/20/23 05:10 07/21/23 08:41 Labs: Abnormal Lab Results - Last 24 Hours (Table) 07/14/23 07/14/23 07/14/23 Range/Units 19:06 19:06 19:06 RBC 3.22 L (4.30-5.90) m/uL Hgb 9.6 L (13.0-17.5) gm/dL Hct 28.7 L (39.0-53.0) % ESR 36 H (0-20) mm/Hr BUN 47 H (9-20) mg/dL Creatinine 1.36 H (0.66-1.25) mg/dL Glucose 252 H (74-99) mg/dL POC Glucose (mg/dL) (70-110) mg/dL Hemoglobin A1c (<=6.0) % Plasma Lactic Acid Ger 2.2 H* (0.7-2.0) mmol/L Calcium 8.3 L (8.4-10.2) mg/dL C-Reactive Protein 3.4 H (<1.0) mg/dL Albumin 3.4 L (3.5-5.0) g/dL Influenza Type A (PCR) (Not Detectd) 07/14/23 07/15/23 07/15/23 Range/Units 19:06 00:11 05:34 RBC (4.30-5.90) m/uL Hgb (13.0-17.5) gm/dL Hct (39.0-53.0) % ESR (0-20) mm/Hr BUN (9-20) mg/dL Creatinine (0.66-1.25) mg/dL Glucose (74-99) mg/dL POC Glucose (mg/dL) 302 H 405 H (70-110) mg/dL Hemoglobin A1c (<=6.0) % Plasma Lactic Acid Ger (0.7-2.0) mmol/L Calcium (8.4-10.2) mg/dL C-Reactive Protein (<1.0) mg/dL Albumin (3.5-5.0) g/dL Influenza Type A (PCR) Detected A (Not Detectd) 07/15/23 07/15/23 07/15/23 Range/Units 07:00 07:00 11:22 RBC (4.30-5.90) m/uL Hgb (13.0-17.5) gm/dL Hct (39.0-53.0) % ESR (0-20) mm/Hr BUN 42 H (9-20) mg/dL Creatinine (0.66-1.25) mg/dL Glucose 350 H (74-99) mg/dL POC Glucose (mg/dL) 329 H (70-110) mg/dL Hemoglobin A1c 8.3 H (<=6.0) % Plasma Lactic Acid Ger (0.7-2.0) mmol/L Calcium 8.1 L (8.4-10.2) mg/dL C-Reactive Protein (<1.0) mg/dL Albumin (3.5-5.0) g/dL Influenza Type A (PCR) (Not Detectd) Assessment and Plan (1) Diabetic foot ulcer Status: Acute Code(s): E11.621 - TYPE 2 DIABETES MELLITUS WITH FOOT ULCER; L97.509 - NON-PRESSURE CHRONIC ULCER OTH PRT UNSP FOOT W UNSP SEVERITY SNOMED Code(s): 259690462 (2) Left leg cellulitis Status: Acute Code(s): L03.116 - CELLULITIS OF LEFT LOWER LIMB SNOMED Code(s): 87898452441863294 Plan: 1patient presented hospital with increasing shortness of breath and cough in this patient with a recent diagnosis of influenza A for which he has completed 5-day course of Tamiflu chest x-ray mostly CHF pulmonary is following the patient. 2patient with left diabetic foot wound with significant changes on the x-ray and concerning for cellulitis to left lower extremity. 3we will obtain aerobic and anaerobic wound culture and check inflammatory markers. 4continue the vancomycin and Unasyn while waiting for the culture to finalize. 5wound care per the wound care team We will follow on clinical condition and cultures to further adjust medication if needed Thank you for this consultation we will follow the patient along with you Dictation was produced using [employer] dictation software. please excuse any grammatical, word or spelling errors. Time with Patient: Greater than 30
[2023-07-15 21:15] LABS: Glucose,Whole Blood 358 mg/dL (70-110)
[2023-07-16 05:31] LABS: Glucose,Whole Blood 333 mg/dL (70-110)
[2023-07-16 08:10] LABS: African American GFR (CKD) 64 (>60 ml/min/1.73 sqM); Anion Gap 4 mmol/L; Blood Urea Nitrogen 37 mg/dL (9-20); C Reactive Protein 1.6 mg/dL (<1.0); Calcium 8.5 mg/dL (8.4-10.2); Carbon Dioxide 29 mmol/L (22-30); Chloride 103 mmol/L (98-107); Glucose 307 mg/dL (74-99); Non-African American GFR(CKD) 55 (>60 ml/min/1.73 sqM); Potassium 5.4 mmol/L (3.5-5.1); Sodium 136 mmol/L (137-145)
[2023-07-16 08:14] LABS: Basophils % (A) 0 %; Eosinophils % (A) 0 %; HCT 28.1 % (39.0-53.0); Lymphocytes # (A) 0.8 k/uL (1.0-4.8); Lymphocytes % (A) 8 %; MCH 28.9 pg (25.0-35.0); MCV 90.2 fL (80.0-100.0); Mean Platelet Volume 9.1; Monocytes # (A) 0.5 k/uL (0-1.0); Monocytes % (A) 5 %; Neutrophils # (A) 8.5 k/uL (1.3-7.7); Neutrophils % (A) 87 %; Platelet Count 197 k/uL (150-450); RBC 3.11 m/uL (4.30-5.90); RDW 14.2 % (11.5-15.5); WBC 9.8 k/uL (3.8-10.6)
[2023-07-16] MEDS: IPRATROPIUM-ALBUTEROL 3 ML NEB INHALATION SCH (08:29)
[2023-07-16 08:44] LABS: Glucose,Whole Blood 296 mg/dL (70-110)
[2023-07-16 11:27] LABS: Glucose,Whole Blood 348 mg/dL (70-110)
[2023-07-16 12:32] LABS: Erythrocyte Sedimentation Rate 26 mm/Hr (0-20)
--- NOTE | 2023-07-16 13:59 | P.GSCN ---
History of Present Illness Consult date: 07/16/23 Reason for Consult: Possible osteo left foot, Charcot foot Requesting physician: Giuliana Lord History of present illness: This is a pleasant 51-year-old male with a history of diabetes mellitus, morbid obesity, venous insufficiency and lower extremity swelling as well as a history of chronic diabetic ulcer to left foot with history of bilateral Charcot feet. Previous surgery on his right foot. Patient follows with Dr. Coleman and has followed with him for quite some time in the past. Had prior diabetic ulcer to the left foot which had initially healed however patient now has a recurrence. He is seen at the wound care center. He presented to the emergency department for cough, shortness of breath and concerns for possible infection of his left foot. Patient was diagnosed with influenza A and was not improving so he presented to the emergency department for further evaluation. He does wear oxygen at home and is currently on 2 L nasal cannula. He denies any fevers or chills currently. States cough is improving. Tenderness to the bottom of the left foot. He does not ambulate on that left foot and mostly gets around in a wheelchair. He underwent x-ray of the left foot which reported soft tissue throughout blood and osteomyelitis involvement of the second through fifth metatarsal is possible. Vascular surgery was consulted for osteomyelitis. Patient denies any previous history of peripheral arterial disease. He does have a history of left lower extremity DVTs, currently on Eliquis. Review of Systems A 14 point review systems was completed all pertinent positives and negatives as stated in the HPI. Past Medical History Past Medical History: Blood Disorder, Diabetes Mellitus, Deep Vein Thrombosis (DVT), GERD/Reflux, Hyperlipidemia, Hypertension, Musculoskeletal Disorder, Osteoarthritis (OA), Sleep Apnea/CPAP/BIPAP Additional Past Medical History / Comment(s): IDDM type II, neuropathy bilateral feet with R foot worse, charcot foot R/L, currently sores L foot and is NWB, recent surgery R foot with boot an can wt bear as tolerated, gastroparesis, hiatal hernia, esophageal narrowing (scarring)/past dysphagia/has had dilations, factor V leiden, 2 DVT's L leg, another superficial blood clot L leg, chronic back pain/has pain pump, DDD and bulging discs, legally blind L eye since , migraines, PVD, fatty liver, MEL with trilogy machine. Last Myocardial Infarction Date:: 11/07/21 History of Any Multi-Drug Resistant Organisms: VRE Year Discovered:: 08/17/22 MDRO Source:: Left Leg Past Surgical History: Tonsillectomy Additional Past Surgical History / Comment(s): R foot/ankle surgery at [facility] with bone removal/hardware inserted, I&D L foot, pain pump insertion, colonoscopy, EGDs with dilations, UVPPP, eye surgery as an infant. Past Anesthesia/Blood Transfusion Reactions: Family History of Problems w/ Anesthesia Additional Past Anesthesia/Blood Transfusion Reaction / Comm: STATES "MOTHER CRASHES" "passes out"-with anesthesia,"needs to have a financial secretary dose" Past Psychological History: Anxiety, Depression Additional Psychological History / Comment(s): Pt resides with his spouse. He has a cane but has been using a walker more often lately. He can now drive after cataract surgery. He has glucometer and uses bipap with oxygen at night. Smoking Status: Never smoker Past Alcohol Use History: None Reported Past Drug Use History: None Reported - Past Family History Father Family Medical History: Cancer Additional Family Medical History / Comment(s): BLADDER CANCER Mother Family Medical History: CVA/TIA, Diabetes Mellitus, Myocardial Infarction (RI) Medications and Allergies Home Medications Medication Instructions Recorded Confirmed Type Latanoprost Ophth [Xalatan 0.005%] 1 drop BOTH EYES HS 01/23/14 07/14/23 History Ferrous Sulfate [Iron (65 MG 325 mg PO BID 10/25/20 07/14/23 History Elemental)] Omeprazole 20 mg PO AC-BRKFST 11/10/21 07/14/23 History Atorvastatin [Lipitor] 80 mg PO DAILY 06/03/22 07/14/23 History metFORMIN HCL 1,000 mg PO BID 06/03/22 07/14/23 History Apixaban [Eliquis] 5 mg PO BID #1 tab 08/26/22 07/14/23 Rx Magnesium Oxide [Mag-Ox] 400 mg PO DAILY tab 08/26/22 07/14/23 Rx Insulin Glargine,Hum.rec.anlog 52 units SQ HS 12/11/22 07/14/23 History [Lantus Solostar Pen] Potassium Chloride ER [K-Dur 10] 10 meq PO DAILY 12/11/22 07/14/23 History lisinopriL [Zestril] 2.5 mg PO DAILY 12/11/22 07/14/23 History Dicyclomine [Bentyl] 20 mg PO BID 04/09/23 07/14/23 History Ergocalciferol [Vitamin D2 (1250 1,250 mcg PO QMONTHLY 04/09/23 07/14/23 History Mcg = 97401 Iu)] Furosemide [Lasix] 40 mg PO DAILY 04/09/23 07/14/23 History Ammonium Lactate Lotion 1 applic TOPICAL DAILY 07/14/23 07/14/23 History [Lac-Hydrin 12% Lotion] Cholecalciferol [Vitamin D3 (25 25 mcg PO DAILY 07/14/23 07/14/23 History Mcg = 1000 Iu)] Cyclobenzaprine [Flexeril] 10 mg PO BID 07/14/23 07/14/23 History Dextroamphetamine/Amphetamine 20 mg PO DAILY 07/14/23 07/14/23 History [Adderall Xr 20 mg Capsule] HYDROcodone/APAP 10-325MG [[place] 1 tab PO BID 07/14/23 07/14/23 History 10-325] Insulin Lispro [humaLOG Kwikpen] 16 unit SQ TID-W/MEALS 07/14/23 07/14/23 History Metoclopramide [Reglan] 10 mg PO TID PRN 07/14/23 07/15/23 History Patient Own Pump 0 bag 07/14/23 07/14/23 History tadalafiL 5 mg PO DAILY 07/14/23 07/15/23 History Allergies Allergy/AdvReac Type Severity Reaction Status Date / Time adhesive Allergy Rash/Hives Verified 07/14/23 18:28 Surgical - Exam Vital Signs Temp Pulse Resp BP Pulse Ox 98.7 F 83 18 133/69 97 07/14/23 18:26 07/14/23 18:26 07/14/23 18:26 07/14/23 18:26 07/14/23 18:26 General appearance: The patient is alert, oriented, appears in no acute distress. Morbidly obese. HET: Head is normocephalic and atraumatic. Pupils are equal and reactive. Neck: Supple. Heart: Regular. Lungs: Equal expansion, normal respiratory effort. Abdomen: Soft, nondistended. Extremities: Bilateral lower extremity swelling with venous stasis and dermatitis. Palpable bilateral DP pulses, unable to appreciate PT pulse bilaterally. Left foot plantar aspect with diabetic ulcer, no drainage noted, no erythema, tender to palpation. Patient also has a pressure ulcer to the left heel. Neurological: No focal deficits. Alert and oriented. Results - Labs 07/16/23 07:15 07/16/23 07:15 Abnormal Lab Results - Last 24 Hours (Table) 07/15/23 07/15/23 07/15/23 Range/Units 07:00 11:22 16:34 RBC (4.30-5.90) m/uL Hgb (13.0-17.5) gm/dL Hct (39.0-53.0) % Neutrophils # (1.3-7.7) k/uL Lymphocytes # (1.0-4.8) k/uL Sodium (137-145) mmol/L Potassium (3.5-5.1) mmol/L BUN (9-20) mg/dL Creatinine (0.66-1.25) mg/dL Glucose (74-99) mg/dL POC Glucose (mg/dL) 329 H 297 H (70-110) mg/dL Hemoglobin A1c 8.3 H (<=6.0) % C-Reactive Protein (<1.0) mg/dL 07/15/23 07/16/23 07/16/23 Range/Units 21:13 05:29 07:15 RBC (4.30-5.90) m/uL Hgb (13.0-17.5) gm/dL Hct (39.0-53.0) % Neutrophils # (1.3-7.7) k/uL Lymphocytes # (1.0-4.8) k/uL Sodium 136 L (137-145) mmol/L Potassium 5.4 H (3.5-5.1) mmol/L BUN 37 H (9-20) mg/dL Creatinine 1.44 H (0.66-1.25) mg/dL Glucose 307 H (74-99) mg/dL POC Glucose (mg/dL) 358 H 333 H (70-110) mg/dL Hemoglobin A1c (<=6.0) % C-Reactive Protein 1.6 H (<1.0) mg/dL 07/16/23 07/16/23 Range/Units 07:15 08:43 RBC 3.11 L (4.30-5.90) m/uL Hgb 9.0 L (13.0-17.5) gm/dL Hct 28.1 L (39.0-53.0) % Neutrophils # 8.5 H (1.3-7.7) k/uL Lymphocytes # 0.8 L (1.0-4.8) k/uL Sodium (137-145) mmol/L Potassium (3.5-5.1) mmol/L BUN (9-20) mg/dL Creatinine (0.66-1.25) mg/dL Glucose (74-99) mg/dL POC Glucose (mg/dL) 296 H (70-110) mg/dL Hemoglobin A1c (<=6.0) % C-Reactive Protein (<1.0) mg/dL Microbiology - Last 24 Hours (Table) 07/14/23 19:00 Blood Culture - Preliminary Blood Diabetes panel 07/15/23 07/16/23 Range/Units 07:00 07:15 Sodium 136 L (137-145) mmol/L Potassium 5.4 H (3.5-5.1) mmol/L Chloride 103 (98-107) mmol/L Carbon Dioxide 29 (22-30) mmol/L BUN 37 H (9-20) mg/dL Creatinine 1.44 H (0.66-1.25) mg/dL Glucose 307 H (74-99) mg/dL Hemoglobin A1c 8.3 H (<=6.0) % Calcium 8.5 (8.4-10.2) mg/dL Calcium panel 07/16/23 Range/Units 07:15 Calcium 8.5 (8.4-10.2) mg/dL Pituitary panel 07/16/23 Range/Units 07:15 Sodium 136 L (137-145) mmol/L Potassium 5.4 H (3.5-5.1) mmol/L Chloride 103 (98-107) mmol/L Carbon Dioxide 29 (22-30) mmol/L BUN 37 H (9-20) mg/dL Creatinine 1.44 H (0.66-1.25) mg/dL Glucose 307 H (74-99) mg/dL Calcium 8.5 (8.4-10.2) mg/dL Adrenal panel 07/16/23 Range/Units 07:15 Sodium 136 L (137-145) mmol/L Potassium 5.4 H (3.5-5.1) mmol/L Chloride 103 (98-107) mmol/L Carbon Dioxide 29 (22-30) mmol/L BUN 37 H (9-20) mg/dL Creatinine 1.44 H (0.66-1.25) mg/dL Glucose 307 H (74-99) mg/dL Calcium 8.5 (8.4-10.2) mg/dL - Imaging Comments: Left Foot x-ray: Generalized soft tissue prominence throughout the foot. Severe osseous demineralization and diffuse degenerative changes, limiting assessment. Osteomyelitis involvement of the second through fifth metatarsal is possible. Changes in the great toe proximal phalanx could be chronic sequela of osteomyelitis. If clinically warranted further evaluation with MRI over three-phase bone scan would be recommended. Assessment and Plan Assessment: 1. Left foot diabetic ulcer 2. Possible osteomyelitis 3. History of Charcot feet 4. History of chronic wound to the left foot 5. Diabetes mellitus 7. Venous insufficiency with venous stasis and dermatitis 8. Morbid obesity Plan: 1. Arterial duplex ordered of bilateral lower extremities 2. Continue local wound care per recommendations from wound clinic 3. Will consult to Dr. Coleman for wound and possible osteomyelitis, as patient has been following him in the outpatient setting for the past couple years 4. Continue with recommendations from infectious disease 5. Further recommendations forthcoming per vascular surgery based on arterial study Thank you for this consultation, we will continue to follow. The impression and plan of care has been dictated as directed. I performed a history and examination of this patient, discussed the same with the dictator. I agree with the dictator's note ,documented as a scribe. Any additional findings or plans will be noted.
--- NOTE | 2023-07-16 14:43 | US ---
EXAMINATION TYPE: US arterial LE multi level DATE OF EXAM: 07/16/2023 2:32 PM CLINICAL INDICATION: Male, 53 years old with history of nonhealing ulcer on right foot, DM; Non heali ng ulcer right foot x 3-4 years. History of: Smoker: No Hypertension: Yes Diabetic: Yes Hyperlipidemia: Yes TIA/CVA: No Previous Vascular Surgery: No CAD: No SC: No Vascular Ulcers: Yes Doppler Waveforms: Right: Multiphasic Left: Multiphasic Right Brachial Pressure: Deferred due to IV Left Brachial Pressure: 138 Ankle-Brachial Indices: Right: CNO Left: 1.17 (Vessel hardening > 1.4; Normal 0.9 - 1.4, Moderate 0.7 - 0.9, Severe 0.5-0.7) Toe Brachial Indices: Right: 0.70 Left: 0.81 IMPRESSION: Peripheral vascular disease of the bilateral lower extremities suggested by toe brachial indices. Left ankle brachial indices within normal limits.
--- NOTE | 2023-07-16 16:21 | P.PN ---
Subjective Progress Note Date: 07/16/23 I am seeing this patient in new consultation today 07/15/2023 after he presented with several days of flulike symptoms. Patient is a 53-year-old white male with past medical history significant for diabetes mellitus, chronic kidney disease, chronic lower extremity wounds which he follows at the wound care center, Charcot foot, hypertension, hyperlipidemia, obstructive sleep apnea with home CPAP, morbid obesity, chronic hypoxemic respiratory failure, factor V [place], DVTs in the left leg, among other medical comorbidities. Patient returns to the emergency room yesterday evening complaining of 1 week of runny nose, sore throat, nonproductive cough, chest congestion, and progressively worsening sh ortness of breath. No noted fevers. No chest pain. His had tested positive for influenza A last Wednesday or . She was treated with Tamiflu. He also received a 5-day course of Tamiflu because he was symptomatic at that time. He has completed his course of Tamiflu. The main reason for him coming into the emergency room was his breathing. Of note, he also has a chronic left foot wound that is draining a purulent yellow discharge. He did have an appointment to become reestablished with the wound care clinic, but was unable to make it due to transportation issues and his sickness. Patient is currently sitting up in the bedside recliner, on 2 L/min nasal cannula, in no acute distress. He does wear 2 L of home oxygen. He also has a home trilogy machine that he wears at night. Unfortunately, this is not at the bedside. Chest x-ray on arrival showed cardiomegaly with mild pulmonary vascular congestion and increased interstitial edema or pneumonitis. Patient does take Lasix on an outpatient basis daily. He has not missed any doses. As far as the patient's left foot and x-ray was done which showed general soft tissue prominence throughout the foot. There was severe osseous demineralization and diffuse degenerative changes limiting assessment. There was osteomyelitis involving the second through fifth metatarsals possible. Changes in the great toe proximal phalanx could be chronic sequela of osteomyelitis. Patient was placed on antibiotics including Unasyn and vancomycin in the emergency room. Infectious disease consult was placed. CBC on arrival: WC count 4.7, hemoglobin 9.6, hematocrit 28.7, platelets 159. BMP on arrival: Sodium 138, potassium 4.2, chloride 100, serum bicarb 29, BUN 47, creatinine 1.36, glucose 252. Lactic acid level 2.2 and down to 1.5. Troponin less than 0.012. NT proBNP low. Influenza A positive on arrival. Negative for influenza B, RSV, COVID. Patient is currently afebrile. Vital signs are stable. On today's evaluation of 07/16/2023, the patient is being seen for a follow-up. Patient is doing well. No specific complaints. He is on 2 L of oxygen by nasal cannula with a pulse ox of 96%. The patient the patient denies having any specific respiratory complaints. Same time, the patient is being monitored for possible left foot osteomyelitis. Ultrasound the left lower extremity was done and the patient was found to have peripheral vascular disease of the lower extremities bilaterally and the patient is going to undergo a bone scan, a triple phase bone scan regarding possible osteomyelitis. ID is on the case and blood cultures were sent and the patient remains on a combination of Unasyn and vancomycin. The patient remains on Solu-Medrol 60 mg every 6 hours. This can obviously be tapered off. BUN is at 37 with a creatinine of 1.4 and sodium levels at 136. White cell count of 9.8 with a hemoglobin of 9 and a platelet count of 197. Objective - Vital Signs Vital signs: Vital Signs Temp 98.0 F 07/16/23 07:51 Pulse 72 07/16/23 08:41 Resp 18 07/16/23 11:18 BP 140/60 07/16/23 07:51 Pulse Ox 98 07/16/23 07:51 FiO2 Intake & Output 07/15/23 07/16/23 07/16/23 18:59 06:59 18:59 Intake Total 950 Balance 950 Intake: Oral 950 Other: Voiding Method Urinal Urinal Urinal # Voids 3 3 - Exam GENERAL EXAM: Alert, 53-year-old morbidly obese male, sitting up in the bed side recliner, Comfortable in no apparent distress. HEAD: Normocephalic and atraumatic EYES: Normal reaction of pupils, equal size. NOSE: Clear with pink turbinates. THROAT: No erythema or exudates. NECK: No masses, no JVD. CHEST: No chest wall deformity. LUNGS: Equal air entry with scattered rhonchi, wheezing, and crackles. On 2 L/min nasal cannula. No conversational dyspnea or accessory muscle use while at rest CVS: S1 and S2 normal with no audible murmur, regular rhythm. No extra heart sounds ABDOMEN: Obese abdomen, no hepatosplenomegaly, active bowel sounds, no guarding or rigidity. SPINE: No scoliosis or deformity SKIN: No rashes CENTRAL NERVOUS SYSTEM: No focal deficits, tone is normal in all 4 extremities. EXTREMITIES: Significant lower extremity swelling with chronic venous stasis changes. Charcot foot deformity bilaterally. Ulceration on the ventral side of the left foot, draining a yellow purulent fluid. Limited mobility of this foot. Erythemic and edematous. No clubbing, or cyanosis. Peripheral pulses are intact. - Labs CBC & Chem 7: 07/16/23 07:15 07/16/23 07:15 Labs: Abnormal Lab Results - Last 24 Hours (Table) 07/15/23 07/15/23 07/16/23 Range/Units 16:34 21:13 05:29 RBC (4.30-5.90) m/uL Hgb (13.0-17.5) gm/dL Hct (39.0-53.0) % Neutrophils # (1.3-7.7) k/uL Lymphocytes # (1.0-4.8) k/uL Sodium (137-145) mmol/L Potassium (3.5-5.1) mmol/L BUN (9-20) mg/dL Creatinine (0.66-1.25) mg/dL Glucose (74-99) mg/dL POC Glucose (mg/dL) 297 H 358 H 333 H (70-110) mg/dL C-Reactive Protein (<1.0) mg/dL 07/16/23 07/16/23 07/16/23 Range/Units 07:15 07:15 08:43 RBC 3.11 L (4.30-5.90) m/uL Hgb 9.0 L (13.0-17.5) gm/dL Hct 28.1 L (39.0-53.0) % Neutrophils # 8.5 H (1.3-7.7) k/uL Lymphocytes # 0.8 L (1.0-4.8) k/uL Sodium 136 L (137-145) mmol/L Potassium 5.4 H (3.5-5.1) mmol/L BUN 37 H (9-20) mg/dL Creatinine 1.44 H (0.66-1.25) mg/dL Glucose 307 H (74-99) mg/dL POC Glucose (mg/dL) 296 H (70-110) mg/dL C-Reactive Protein 1.6 H (<1.0) mg/dL 07/16/23 Range/Units 11:25 RBC (4.30-5.90) m/uL Hgb (13.0-17.5) gm/dL Hct (39.0-53.0) % Neutrophils # (1.3-7.7) k/uL Lymphocytes # (1.0-4.8) k/uL Sodium (137-145) mmol/L Potassium (3.5-5.1) mmol/L BUN (9-20) mg/dL Creatinine (0.66-1.25) mg/dL Glucose (74-99) mg/dL POC Glucose (mg/dL) 348 H (70-110) mg/dL C-Reactive Protein (<1.0) mg/dL Microbiology - Last 24 Hours (Table) 07/14/23 19:00 Blood Culture - Preliminary Blood Assessment and Plan Assessment: Acute influenza A infection/bronchitis, no obvious superimposed pneumonia on chest x-ray, already treated with a 5-day course of Tamiflu twice daily. Acute on chronic dyspnea, secondary to above, improved significantly Chronic diastolic congestive heart failure, chest x-ray shows cardiomegaly with mild vascular congestion and mild interstitial edema. Chronic hypoxemic respiratory failure, maintained on 2 L/min nasal cannula Possible osteomyelitis of the left foot, left foot x-ray was shows general soft tissue prominence throughout the foot. There was severe osseous demineralization and diffuse degenerative changes limiting assessment. There was osteomyelitis involving the second through fifth metatarsals possible. Changes in the great toe proximal phalanx could be chronic sequela of osteomyelitis. Diabetes mellitus, type II, insulin-dependent Chronic left lower extremity diabetic foot ulcer Charcot foot, bilaterally Chronic bilateral lower extremity edema and venous stasis Morbid obesity, with a BMI of 43.6 kg/m Obstructive sleep apnea, with home trilogy vent History of factor V deficiency History of DVT, anticoagulated on Eliquis History of hypertension History of hyperlipidemia History of GERD Chronic kidney disease stage III Anemia of chronic disease Plan: Change Solu-Medrol to 40 mg every 12 hours Continue supplemental oxygen, currently on 2 L/min nasal cannula, which he uses chronically, no interval worsening in oxygenation Patient already completed course of Tamiflu Awaiting bone scan Currently on Unasyn and vancomycin Blood cultures have been sent ID is on the case Eliquis has been restarted. P.o. Lasix 40 mg daily restarted We will continue to follow
--- NOTE | 2023-07-16 16:22 | P.PN ---
Subjective Progress Note Date: 07/16/23 Principal diagnosis: Reason for follow-up is left foot wound and left lower extremity cellulitis Patient is a 53-year-old male with a past medical history significant for diabetes mellitus hypertension hyperlipidemia DVT did have a history of diabetic foot infection and osteomyelitis presenting to [facility] ER for evaluation of cough, patient recently treated for influenza before presentation to the hospital also noted to have increasing swelling redness to left lower extremity with a wound to the left foot. On today's evaluation that is 07/16/2023, the patient continues to be afebrile, the patient is on 2 L nasal cannula oxygen and breathing comfortably, the Pt denies having any chest pain or worsening cough, the patient denies having any abdominal pain no vomiting or any diarrhea, denies any worsening pain to the left lower extremity. Patient white count is 9.8 creatinine 1.44 cultures are pending Objective - Vital Signs Vital signs: Vital Signs Temp 98.0 F 07/16/23 07:51 Pulse 72 07/16/23 08:41 Resp 18 07/16/23 11:18 BP 140/60 07/16/23 07:51 Pulse Ox 98 07/16/23 07:51 FiO2 Intake & Output 07/15/23 07/16/23 07/16/23 18:59 06:59 18:59 Intake Total 950 Balance 950 Intake: Oral 950 Other: Voiding Method Urinal Urinal Urinal # Voids 3 3 - Exam GENERAL DESCRIPTION: Middle-age male lying in bed in no distress RESPIRATORY SYSTEM: Unlabored breathing , decreased breath sounds at bases HEART: S1 S2 regular rate and rhythm , ABDOMEN: Soft , no tenderness EXTREMITIES: Left lower extremity redness slightly decreased some drainage from the left foot plantar wound mostly bloodstained - Labs CBC & Chem 7: 07/20/23 05:10 07/21/23 08:41 Labs: Abnormal Lab Results - Last 24 Hours (Table) 07/15/23 07/15/23 07/16/23 Range/Units 16:34 21:13 05:29 RBC (4.30-5.90) m/uL Hgb (13.0-17.5) gm/dL Hct (39.0-53.0) % Neutrophils # (1.3-7.7) k/uL Lymphocytes # (1.0-4.8) k/uL ESR (0-20) mm/Hr Sodium (137-145) mmol/L Potassium (3.5-5.1) mmol/L BUN (9-20) mg/dL Creatinine (0.66-1.25) mg/dL Glucose (74-99) mg/dL POC Glucose (mg/dL) 297 H 358 H 333 H (70-110) mg/dL C-Reactive Protein (<1.0) mg/dL 07/16/23 07/16/23 07/16/23 Range/Units 07:15 07:15 08:43 RBC 3.11 L (4.30-5.90) m/uL Hgb 9.0 L (13.0-17.5) gm/dL Hct 28.1 L (39.0-53.0) % Neutrophils # 8.5 H (1.3-7.7) k/uL Lymphocytes # 0.8 L (1.0-4.8) k/uL ESR 26 H (0-20) mm/Hr Sodium 136 L (137-145) mmol/L Potassium 5.4 H (3.5-5.1) mmol/L BUN 37 H (9-20) mg/dL Creatinine 1.44 H (0.66-1.25) mg/dL Glucose 307 H (74-99) mg/dL POC Glucose (mg/dL) 296 H (70-110) mg/dL C-Reactive Protein 1.6 H (<1.0) mg/dL 07/16/23 Range/Units 11:25 RBC (4.30-5.90) m/uL Hgb (13.0-17.5) gm/dL Hct (39.0-53.0) % Neutrophils # (1.3-7.7) k/uL Lymphocytes # (1.0-4.8) k/uL ESR (0-20) mm/Hr Sodium (137-145) mmol/L Potassium (3.5-5.1) mmol/L BUN (9-20) mg/dL Creatinine (0.66-1.25) mg/dL Glucose (74-99) mg/dL POC Glucose (mg/dL) 348 H (70-110) mg/dL C-Reactive Protein (<1.0) mg/dL Microbiology - Last 24 Hours (Table) 07/14/23 19:00 Blood Culture - Preliminary Blood Assessment and Plan (1) Cellulitis of right leg Status: Acute Code(s): L03.115 - CELLULITIS OF RIGHT LOWER LIMB SNOMED Code(s): 13546012220194429 (2) Diabetic foot ulcer Status: Acute Code(s): E11.621 - TYPE 2 DIABETES MELLITUS WITH FOOT ULCER; L97.509 - NON-PRESSURE CHRONIC ULCER OTH PRT UNSP FOOT W UNSP SEVERITY SNOMED Code(s): 592896599 Plan: 1patient presented hospital with increasing shortness of breath and cough in this patient with a recent diagnosis of influenza A for which he has completed 5-day course of Tamiflu chest x-ray mostly CHF pulmonary is following the patient. 2patient with left diabetic foot wound with significant changes on the x-ray and concerning for cellulitis to left lower extremity. 3 aerobic and anaerobic wound culture has been obtained sed rate is 26 bone scan is pending 4patient to continue the vancomycin and Unasyn while waiting for the culture to finalize. Dictation was produced using [employer] dictation software. please excuse any grammatical, word or spelling errors. Time with Patient: Less than 30
[2023-07-16 16:25] LABS: Glucose,Whole Blood 212 mg/dL (70-110)
--- NOTE | 2023-07-16 16:33 | NM ---
EXAMINATION TYPE: NM bone 3 phase DATE OF EXAM: 07/16/2023 COMPARISON: NONE CLINICAL INDICATION: Male, 53 years old with history of left foot; Triple phase bone scintigraphy was performed following the injection of 22.1 mCi Tc 99m MDP. Immedia te images and 3 hours post injection images acquired. FINDINGS: There is increased flow to the distal margin of the left left. Soft tissue uptake is greater involving the left foot. There is intense abnormal uptake involving the first MTP joint on delayed images. On the same proport ion for the x-ray appearance of 07/14/2023. Suspect that there is osteomyelitis. No significant delaye d uptake involving the second through fifth metatarsals. IMPRESSION: 1. Cellulitis with findings suggestive of osteomyelitis proximal phalanx first digit. Pathologic nond isplaced fracture in the differential diagnosis.
--- NOTE | 2023-07-16 17:35 | P.PN ---
Subjective Progress Note Date: 07/16/23 H&P Date: 07/15/23 Chief Complaint: Dyspnea, nonproductive cough Is a 53-year-old gentleman with past medical history significant for morbid obesity, diabetes mellitus, chronic lower extremity wounds, osteomyelitis, Charcot foot, chronic left foot diabetic ulcer follows up with Dr. Coleman,hypertension, hyperlipidemia, chronic respiratory failure, obstructive sleep apnea, factor V [place]iden, DVTs of left leg and multiple other medical issues, presented to the ER with progressive dyspnea, 1 week of chest congestion, nonproductive cough, sore throat, without fevers, tested positive for influenza A last week and completed 5 day course of Tamiflu. In the ER patient noted to have purulent yellow drainage from his chronic left foot ulcer. Patient reports he missed his reestablishment appointment with wound care center due to being sick and transportation issues. Patient's med regimen consist of Lasix and states he has been compliant. Chest x-ray reported cardiomegaly with mild pulmonary vascular congestion, increased interstitial markings, possibly pneumonitis. Left foot x-ray reported general soft tissue prominence throughout the foot. There was severe osseous demineralization and diffuse degenerative changes limiting assessment. There was osteomyelitis involving the second through fifth metatarsals possible. Changes in the great toe proximal phalanx could be chronic sequela of osteomyelitis. Antibiotics of vancomycin use and Unasyn initiated in the ER. Admission labs:WBC count 4.7, hemoglobin 9.6,platelets 159,Sodium 138, potassium 4.2, chloride 100, serum bicarb 29, BUN 47, creatinine 1.36, glucose 252. Lactic acid level 2.2 , repeat level 1.5. Troponin negative x 1. NT proBNP 191. Influenza A positive, Negative for influenza B, RSV, COVID. Vital signs stable, afebrile, maintaining O2 sats of mid to high 90s on 2 L nasal cannula. evaluated by pulmonary with recommendations noted and appreciated. Infectious disease consult in place. 07/16/2023 sitting up in chair, cough lessened.Reports unchanged left lower ex tremity pain aerobic/anaerobic wound and blood cultures in progress. C-reactive protein decreased from 3.4-1.6. maintained on IV antibiotics of Unasyn and vancomycin. Creatinine increased to 1.44. Afebrile, normal WBC. Denies any chest pain, palpitations or increased shortness of breath. Maintaining O2 sats in the high 90s on 2 L nasal cannula. Objective - Vital Signs Vital signs: Vital Signs Temp 98.3 F 07/16/23 16:46 Pulse 70 07/16/23 16:46 Resp 14 07/16/23 16:46 BP 137/67 07/16/23 16:46 Pulse Ox 97 07/16/23 16:46 FiO2 Intake & Output 07/15/23 07/16/23 07/16/23 18:59 06:59 18:59 Intake Total 950 250 Balance 950 250 Intake: Oral 950 250 Other: Voiding Method Urinal Urinal Urinal # Voids 3 3 1 - Exam PHYSICAL EXAM: VITAL SIGNS: [As above] GENERAL: Obese, alert and oriented x 3, sitting up in chair, no acute distress. Normal respiratory effort HEENT: Normocephalic, conjunctivae normal. eyes normal. NECK: Supple, no JVD. CARDIOVASCULAR: S1, S2 regular.No murmur RESPIRATION: Unlabored, equal air entry , scattered rhonchi. ABDOMEN: Soft, obese, nondistended nontender . No guarding, no rigidity . Positive bowel sounds LEGS: Bilateral lower extremity Speedy wrap dressings.plantar aspect of left foot dressing with shadowing. NERVOUS SYSTEM: Cranial N 2-12 grossly normal. No focal deficits. Strength and sensation grossly intact. Skin: Warm and dry, no rash - Labs CBC & Chem 7: 07/16/23 07:15 07/16/23 07:15 Labs: Abnormal Lab Results - Last 24 Hours (Table) 07/15/23 07/16/23 07/16/23 Range/Units 21:13 05:29 07:15 RBC (4.30-5.90) m/uL Hgb (13.0-17.5) gm/dL Hct (39.0-53.0) % Neutrophils # (1.3-7.7) k/uL Lymphocytes # (1.0-4.8) k/uL ESR (0-20) mm/Hr Sodium 136 L (137-145) mmol/L Potassium 5.4 H (3.5-5.1) mmol/L BUN 37 H (9-20) mg/dL Creatinine 1.44 H (0.66-1.25) mg/dL Glucose 307 H (74-99) mg/dL POC Glucose (mg/dL) 358 H 333 H (70-110) mg/dL C-Reactive Protein 1.6 H (<1.0) mg/dL 07/16/23 07/16/23 07/16/23 Range/Units 07:15 08:43 11:25 RBC 3.11 L (4.30-5.90) m/uL Hgb 9.0 L (13.0-17.5) gm/dL Hct 28.1 L (39.0-53.0) % Neutrophils # 8.5 H (1.3-7.7) k/uL Lymphocytes # 0.8 L (1.0-4.8) k/uL ESR 26 H (0-20) mm/Hr Sodium (137-145) mmol/L Potassium (3.5-5.1) mmol/L BUN (9-20) mg/dL Creatinine (0.66-1.25) mg/dL Glucose (74-99) mg/dL POC Glucose (mg/dL) 296 H 348 H (70-110) mg/dL C-Reactive Protein (<1.0) mg/dL 07/16/23 Range/Units 16:23 RBC (4.30-5.90) m/uL Hgb (13.0-17.5) gm/dL Hct (39.0-53.0) % Neutrophils # (1.3-7.7) k/uL Lymphocytes # (1.0-4.8) k/uL ESR (0-20) mm/Hr Sodium (137-145) mmol/L Potassium (3.5-5.1) mmol/L BUN (9-20) mg/dL Creatinine (0.66-1.25) mg/dL Glucose (74-99) mg/dL POC Glucose (mg/dL) 212 H (70-110) mg/dL C-Reactive Protein (<1.0) mg/dL Microbiology - Last 24 Hours (Table) 07/14/23 19:00 Blood Culture - Preliminary Blood Assessment and Plan Assessment: Acute influenza A infection, completed Tamiflu outpatient, Chronic hypoxic respiratory failure secondary to the above Possible osteomyelitis of the left foot, x-rays reported possible osteomyelitis involving the second through fifth metatarsal. Changes in the great toe proximal phalanx could be chronic sequela of osteomyelitis. Chronic left plantar foot diabetic ulcer with purulent drainage on admission Chronic cellulitis of bilateral lower extremities, left greater than right, foll ows with Dr. 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 Three-phase bone scan of left lower extremity ordered. Vascular surgery consulted. Antibiotics as per infectious disease. Aggressive pulmonary toileting with nebulized bronchodilators, IV steroids and antibiotics. Blood sugars uncontrolled, improving, med regimen further adjusted, close monitoring of Accu-Cheks. Close monitoring of renal function, electrolytes with repeat labs ordered for a.m. The impression and plan of care has been dictated as directed. : I performed a history and examination of this patient, discussed the same with the dictator. I agree with the dictator's note ,documented as a scribe. Any additional findings or plans will be noted.
[2023-07-16 20:49] LABS: Glucose,Whole Blood 334 mg/dL (70-110)
[2023-07-16] MEDS: INSULIN DETEMIR (LEVEMIR) 100 UNIT/ML SYR SQ SCH (21:05)
[2023-07-16] MEDS: methylPREDNISolone SOD SUCCI 125 MG/2 ML VIAL IV SCH (21:06)
[2023-07-17 06:07] LABS: Glucose,Whole Blood 323 mg/dL (70-110)
[2023-07-17 08:01] LABS: African American GFR (CKD) 76 (>60 ml/min/1.73 sqM); Anion Gap 7 mmol/L; Blood Urea Nitrogen 42 mg/dL (9-20); Calcium 8.5 mg/dL (8.4-10.2); Carbon Dioxide 26 mmol/L (22-30); Chloride 104 mmol/L (98-107); Glucose 290 mg/dL (74-99); Non-African American GFR(CKD) 66 (>60 ml/min/1.73 sqM); Potassium 4.8 mmol/L (3.5-5.1); Sodium 137 mmol/L (137-145)
[2023-07-17 11:39] LABS: Glucose,Whole Blood 255 mg/dL (70-110)
[2023-07-17 13:45] LABS: Basophils # (A) 0.01 X 10*3/uL (0.00-0.10); Basophils % (A) 0.1 %; Eosinophils # (A) 0 X 10*3/uL (0.04-0.35); Eosinophils % (A) 0 %; HCT 27.1 % (39.6-50.0); HGB 8.8 g/dL (13.0-17.0); Lymphocytes # (A) 1.26 X 10*3/uL (0.90-5.00); Lymphocytes % (A) 10.1 %; MCH 29.5 pg (27.0-32.0); MCHC 32.5 g/dL (32.0-37.0); MCV 90.9 FL (80.0-97.0); Mean Platelet Volume 11.1 FL (9.5-12.2); Monocytes # (A) 1.02 X 10*3/uL (0.20-1.00); Monocytes % (A) 8.2 %; NRBC Per 100 WBC 0 X 10*3/uL (0.00-0.01); Neutrophils # (A) 9.95 X 10*3/uL (1.80-7.70); Neutrophils % (A) 80.2 %; Platelet Count 218 X 10*3/uL (140-440); RBC 2.98 X 10*6/uL (4.40-5.60); RDW 13.6 % (11.5-14.5); WBC 12.42 X 10*3/uL (4.50-10.00)
--- NOTE | 2023-07-17 14:06 | P.PN ---
Subjective Progress Note Date: 07/17/23 I am seeing this patient in new consultation today 07/15/2023 after he presented with several days of flulike symptoms. Patient is a 53-year-old white male with past medical history significant for diabetes mellitus, chronic kidney disease, chronic lower extremity wounds which he follows at the wound care center, Charcot foot, hypertension, hyperlipidemia, obstructive sleep apnea with home CPAP, morbid obesity, chronic hypoxemic respiratory failure, factor V [place], DVTs in the left leg, among other medical comorbidities. Patient returns to the emergency room yesterday evening complaining of 1 week of runny nose, sore throat, nonproductive cough, chest congestion, and progressively worsening sh ortness of breath. No noted fevers. No chest pain. His had tested positive for influenza A last Wednesday or . She was treated with Tamiflu. He also received a 5-day course of Tamiflu because he was symptomatic at that time. He has completed his course of Tamiflu. The main reason for him coming into the emergency room was his breathing. Of note, he also has a chronic left foot wound that is draining a purulent yellow discharge. He did have an appointment to become reestablished with the wound care clinic, but was unable to make it due to transportation issues and his sickness. Patient is currently sitting up in the bedside recliner, on 2 L/min nasal cannula, in no acute distress. He does wear 2 L of home oxygen. He also has a home trilogy machine that he wears at night. Unfortunately, this is not at the bedside. Chest x-ray on arrival showed cardiomegaly with mild pulmonary vascular congestion and increased interstitial edema or pneumonitis. Patient does take Lasix on an outpatient basis daily. He has not missed any doses. As far as the patient's left foot and x-ray was done which showed general soft tissue prominence throughout the foot. There was severe osseous demineralization and diffuse degenerative changes limiting assessment. There was osteomyelitis involving the second through fifth metatarsals possible. Changes in the great toe proximal phalanx could be chronic sequela of osteomyelitis. Patient was placed on antibiotics including Unasyn and vancomycin in the emergency room. Infectious disease consult was placed. CBC on arrival: WC count 4.7, hemoglobin 9.6, hematocrit 28.7, platelets 159. BMP on arrival: Sodium 138, potassium 4.2, chloride 100, serum bicarb 29, BUN 47, creatinine 1.36, glucose 252. Lactic acid level 2.2 and down to 1.5. Troponin less than 0.012. NT proBNP low. Influenza A positive on arrival. Negative for influenza B, RSV, COVID. Patient is currently afebrile. Vital signs are stable. On today's evaluation of 07/16/2023, the patient is being seen for a follow-up. Patient is doing well. No specific complaints. He is on 2 L of oxygen by nasal cannula with a pulse ox of 96%. The patient the patient denies having any specific respiratory complaints. Same time, the patient is being monitored for possible left foot osteomyelitis. Ultrasound the left lower extremity was done and the patient was found to have peripheral vascular disease of the lower extremities bilaterally and the patient is going to undergo a bone scan, a triple phase bone scan regarding possible osteomyelitis. ID is on the case and blood cultures were sent and the patient remains on a combination of Unasyn and vancomycin. The patient remains on Solu-Medrol 60 mg every 6 hours. This can obviously be tapered off. BUN is at 37 with a creatinine of 1.4 and sodium levels at 136. White cell count of 9.8 with a hemoglobin of 9 and a platelet count of 197. On today's evaluation on 07/17/2023, patient is being seen for a follow-up. Doing well. No specific complaints. Resting comfortably in bed. No respirator y event. Or difficulties and the patient says she remains on the same medication. White cell count is at 12.4, hemoglobin is at 8.8 and a platelet count of 218. BUN is at 42 with a creatinine 1.25 and his sodium levels at 137. Objective - Vital Signs Vital signs: Vital Signs Temp 98.3 F 07/17/23 07:56 Pulse 72 07/17/23 09:18 Resp 20 07/17/23 07:56 BP 133/69 07/17/23 07:56 Pulse Ox 98 07/17/23 07:56 FiO2 Intake & Output 07/16/23 07/17/23 07/17/23 18:59 06:59 18:59 Intake Total 250 Balance 250 Intake: Oral 250 Other: Voiding Method Urinal Urinal # Voids 1 # Bowel Movements 1 - Exam GENERAL EXAM: Alert, 53-year-old morbidly obese male, sitting up in the bed side recliner, Comfortable in no apparent distress. HEAD: Normocephalic and atraumatic EYES: Normal reaction of pupils, equal size. NOSE: Clear with pink turbinates. THROAT: No erythema or exudates. NECK: No masses, no JVD. CHEST: No chest wall deformity. LUNGS: Equal air entry with scattered rhonchi, wheezing, and crackles. On 2 L/min nasal cannula. No conversational dyspnea or accessory muscle use while at rest CVS: S1 and S2 normal with no audible murmur, regular rhythm. No extra heart sounds ABDOMEN: Obese abdomen, no hepatosplenomegaly, active bowel sounds, no guarding or rigidity. SPINE: No scoliosis or deformity SKIN: No rashes CENTRAL NERVOUS SYSTEM: No focal deficits, tone is normal in all 4 extremities. EXTREMITIES: Significant lower extremity swelling with chronic venous stasis changes. Charcot foot deformity bilaterally. Ulceration on the ventral side of the left foot, draining a yellow purulent fluid. Limited mobility of this foot. Erythemic and edematous. No clubbing, or cyanosis. Peripheral pulses are intact. - Labs CBC & Chem 7: 07/17/23 07:07 07/17/23 07:07 Labs: Abnormal Lab Results - Last 24 Hours (Table) 07/16/23 07/16/23 07/16/23 Range/Units 07:15 11:25 16:23 ESR 26 H (0-20) mm/Hr BUN (9-20) mg/dL Glucose (74-99) mg/dL POC Glucose (mg/dL) 348 H 212 H (70-110) mg/dL 07/16/23 07/17/23 07/17/23 Range/Units 20:48 06:06 07:07 ESR (0-20) mm/Hr BUN 42 H (9-20) mg/dL Glucose 290 H (74-99) mg/dL POC Glucose (mg/dL) 334 H 323 H (70-110) mg/dL Microbiology - Last 24 Hours (Table) 07/15/23 17:00 Gram Stain - Preliminary Foot - Left Wound Culture - Preliminary Gram Neg Bacilli 07/14/23 19:00 Blood Culture - Preliminary Blood Assessment and Plan Assessment: Acute influenza A infection/bronchitis, no obvious superimposed pneumonia on chest x-ray, already treated with a 5-day course of Tamiflu twice daily. Acute on chronic dyspnea, secondary to above, improved significantly Chronic diastolic congestive heart failure, chest x-ray shows cardiomegaly with mild vascular congestion and mild interstitial edema. Chronic hypoxemic respiratory failure, maintained on 2 L/min nasal cannula Possible osteomyelitis of the left foot, and left phalanx based on the bone scan. Diabetes mellitus, type II, insulin-dependent Chronic left lower extremity diabetic foot ulcer Charcot foot, bilaterally Chronic bilateral lower extremity edema and venous stasis Morbid obesity, with a BMI of 43.6 kg/m Obstructive sleep apnea, with home trilogy vent History of factor V deficiency History of DVT, anticoagulated on Eliquis History of hypertension History of hyperlipidemia History of GERD Chronic kidney disease stage III Anemia of chronic disease Plan: Continue same treatment Start the patient on prednisone burst taper Continue supplemental oxygen, currently on 2 L/min nasal cannula, which he uses chronically, no interval worsening in oxygenation Patient already completed course of Tamiflu Bone scan was suggestive of osteomyelitis Currently on Unasyn and vancomycin Blood cultures have been sent ID is on the case Eliquis has been restarted. P.o. Lasix 40 mg daily restarted We will continue to follow
--- NOTE | 2023-07-17 15:42 | P.PN ---
Subjective Progress Note Date: 07/17/23 Principal diagnosis: Reason for follow-up is left foot wound and left lower extremity cellulitis Patient is a 53-year-old male with a past medical history significant for diabetes mellitus hypertension hyperlipidemia DVT did have a history of diabetic foot infection and osteomyelitis presenting to [facility] ER for evaluation of cough, patient recently treated for influenza before presentation to the hospital also noted to have increasing swelling redness to left lower extremity with a wound to the left foot. On today's evaluation that is 07/17/2023, Patient is afebrile patient is currently on room air and denies having any shortness of breath, the patient denies any chest pain and cough has decreased in intensity, the patient denies any nausea vomiting did not have any abdominal pain and no diarrhea, denies pain to the left lower extremity. Patient white count is 12.42, creatinine is 1.25, wound culture growing gram- negative bacilli Objective - Vital Signs Vital signs: Vital Signs Temp 98.3 F 07/17/23 07:56 Pulse 72 07/17/23 12:52 Resp 20 07/17/23 07:56 BP 133/69 07/17/23 07:56 Pulse Ox 98 07/17/23 07:56 FiO2 Intake & Output 07/16/23 07/17/23 07/17/23 18:59 06:59 18:59 Intake Total 250 Balance 250 Intake: Oral 250 Other: Voiding Method Urinal Urinal Toilet Urinal # Voids 1 # Bowel Movements 1 - Exam GENERAL DESCRIPTION: Middle-age male lying in bed in no distress RESPIRATORY SYSTEM: Unlabored breathing , decreased breath sounds at bases HEART: S1 S2 regular rate and rhythm , ABDOMEN: Soft , no tenderness EXTREMITIES: Left lower extremity redness slightly decreased some drainage from the left foot plantar wound mostly bloodstained - Labs CBC & Chem 7: 07/17/23 07:07 07/17/23 07:07 Labs: Abnormal Lab Results - Last 24 Hours (Table) 07/16/23 07/16/23 07/17/23 Range/Units 16:23 20:48 06:06 BUN (9-20) mg/dL Glucose (74-99) mg/dL POC Glucose (mg/dL) 212 H 334 H 323 H (70-110) mg/dL 07/17/23 07/17/23 Range/Units 07:07 11:38 BUN 42 H (9-20) mg/dL Glucose 290 H (74-99) mg/dL POC Glucose (mg/dL) 255 H (70-110) mg/dL Microbiology - Last 24 Hours (Table) 07/15/23 17:00 Gram Stain - Preliminary Foot - Left Wound Culture - Preliminary Gram Neg Bacilli 07/14/23 19:00 Blood Culture - Preliminary Blood Assessment and Plan (1) Left leg cellulitis Current Visit: Yes Status: Acute Code(s): L03.116 - CELLULITIS OF LEFT LOWER LIMB SNOMED Code(s): 47118013610693556 (2) Type 2 diabetes mellitus with foot ulcer Current Visit: No Status: Acute Code(s): E11.621 - TYPE 2 DIABETES MELLITUS WITH FOOT ULCER; L97.509 - NON-PRESSURE CHRONIC ULCER OTH PRT UNSP FOOT W UNSP SEVERITY SNOMED Code(s): 406517568 Plan: 1patient presented hospital with increasing shortness of breath and [id number] this patient with a recent diagnosis of influenza A for which he has completed 5-day course of Tamiflu chest x-ray mostly CHF pulmonary is following the patient. 2patient with left diabetic foot wound with significant changes on the x-ray and concerning for cellulitis to left lower extremity. 3 aerobic and anaerobic wound culture has been obtained which are currently growing gram-negative bacilli, sed rate is 26 wound scan shows abnormality to the left big toe currently do not have any answer at that location possible fracture 4we will discontinue vancomycin and Unasyn, start the patient on Zosyn while waiting for the ID sensitivity on the gram-negative Dictation was produced using [employer] dictation software. please excuse any grammatical, word or spelling errors. Time with Patient: Less than 30
[2023-07-17] MEDS ORDERED: VANCOMYCIN TROUGH DUE 1 EACH MISC MISCELLANE ONE (16:00)
--- NOTE | 2023-07-17 16:35 | XR ---
EXAMINATION TYPE: XR chest 1V portable DATE OF EXAM: 07/17/2023 COMPARISON: 07/14/2023 HISTORY: Cough TECHNIQUE: Single frontal view of the chest is obtained. FINDINGS: There is no focal air space opacity, pleural effusion, or pneumothorax seen. The cardiac silhouette size is within normal limits. The osseous structures are intact. Limited inspiration with elevated right hemidiaphragm which can be associated with phrenic nerve pare sis. Coarsened interstitium and subsegmental changes in the right lower lobe. IMPRESSION: 1. Correlate for pulmonary fibrosis with right basilar atelectasis.
[2023-07-17 16:51] LABS: Glucose,Whole Blood 286 mg/dL (70-110)
--- NOTE | 2023-07-17 17:42 | PN ---
PROGRESS NOTE DATE OF SERVICE: 07/17/2023 This 53-year-old gentleman was admitted with COPD exacerbation, acute influenza A, is having significant cough also at this time. Multiple consultants are following the patient closely including Infectious Disease and Pulmonary. The patient also received Tamiflu. Lower extremity ultrasound showed peripheral vascular disease. Bone scan study showed some cellulitis with osteomyelitis. PAST MEDICAL HISTORY: Reviewed. REVIEW OF SYSTEMS: Fourteen-point review is negative except as mentioned. PHYSICAL EXAMINATION: VITAL SIGNS: Pulse is 74, blood pressure is 136/90, respirations 20. HEENT: Conjunctivae normal. NECK: No jugular venous distention. CARDIOVASCULAR: S1, S2. RESPIRATIONS: Diminished at the basis, few scattered rhonchi. ABDOMEN: Soft. Nontender. LEGS: Left leg cellulitis present. NERVOUS SYSTEM: No focal deficit. LABS: Reviewed. ASSESSMENT: 1. Chronic obstructive pulmonary disease acute exacerbation with acute purulent tracheobronchitis. 2. Acute influenza A. 3. Acute left leg cellulitis, possible osteomyelitis. 4. Peripheral vascular disease. 5. Diabetic ulcer. 6. Charcot foot, bilateral. 7. Chronic deep vein thrombosis. 8. Diabetes mellitus, type 2. 9. Multiple complex medical issues. RECOMMENDATIONS: Recommend to continue current management and treatment, otherwise continue with empiric antibiotics. Wound culture showed gram-negative bacilli. We will await the final report. The blood sugar is also elevated. I would try to adjust the insulin dosage. The patient is started on 10 t.i.d. and 25 b.i.d. of Lantus which is the patient's home dose. I would increase Lantus to 30 b.i.d. at least while the patient is in the hospital and continue to monitor. Prognosis guarded. Further recommendations to follow. See orders for details. MMODL / IJN: [id number] /
[2023-07-17] MEDS: INSULIN ASPART (NovoLOG) 100 UNIT/ML VIAL SQ SCH (17:58)
[2023-07-17] MEDS: PIPERACILLIN-TAZOBACTAM 3.375 GM in SODIUM CHLORIDE 0.9% 100 ML IVPB SCH (17:58)
[2023-07-17 20:12] LABS: Glucose,Whole Blood 325 mg/dL (70-110)
[2023-07-17] MEDS: INSULIN DETEMIR (LEVEMIR) 100 UNIT/ML SYR SQ SCH (20:40)
[2023-07-18] MEDS: HYDROcodone/APAP 5-325MG 1 EACH TAB PO PRN (00:41)
[2023-07-18 05:42] LABS: Glucose,Whole Blood 118 mg/dL (70-110)
[2023-07-18 07:33] LABS: Basophils % (A) 0 %; Eosinophils # (A) 0.1 k/uL (0-0.7); Eosinophils % (A) 1 %; HCT 29.4 % (39.0-53.0); HGB 9.5 gm/dL (13.0-17.5); Lymphocytes # (A) 2.1 k/uL (1.0-4.8); Lymphocytes % (A) 21 %; MCH 29.6 pg (25.0-35.0); MCHC 32.3 g/dL (31.0-37.0); MCV 91.6 fL (80.0-100.0); Mean Platelet Volume 8.7; Monocytes % (A) 10 %; Neutrophils # (A) 6.7 k/uL (1.3-7.7); Neutrophils % (A) 66 %; Platelet Count 219 k/uL (150-450); RBC 3.21 m/uL (4.30-5.90); RDW 14.1 % (11.5-15.5); WBC 10.1 k/uL (3.8-10.6)
[2023-07-18 07:51] LABS: ALT 16 U/L (4-49); AST 18 U/L (17-59); African American GFR (CKD) 65 (>60 ml/min/1.73 sqM); Albumin 2.9 g/dL (3.5-5.0); Albumin/Globulin Ratio 0.9; Alkaline Phosphatase 76 U/L (38-126); Anion Gap 5 mmol/L; Blood Urea Nitrogen 38 mg/dL (9-20); Calcium 8.4 mg/dL (8.4-10.2); Carbon Dioxide 27 mmol/L (22-30); Chloride 106 mmol/L (98-107); Globulin 3.2 g/dL; Glucose 102 mg/dL (74-99); Non-African American GFR(CKD) 56 (>60 ml/min/1.73 sqM); Potassium 4.3 mmol/L (3.5-5.1); Sodium 138 mmol/L (137-145); Total Bilirubin 0.3 mg/dL (0.2-1.3); Total Protein 6.1 g/dL (6.3-8.2)
[2023-07-18] MEDS: predniSONE 10 MG TAB PO SCH (09:09)
[2023-07-18] MEDS: ONDANSETRON 4 MG/2 ML VIAL IVP PRN (09:46)
[2023-07-18 12:01] LABS: Glucose,Whole Blood 109 mg/dL (70-110)
--- NOTE | 2023-07-18 12:59 | P.PN ---
Subjective Progress Note Date: 07/18/23 I am seeing this patient in new consultation today 07/15/2023 after he presented with several days of flulike symptoms. Patient is a 53-year-old white male with past medical history significant for diabetes mellitus, chronic kidney disease, chronic lower extremity wounds which he follows at the wound care center, Charcot foot, hypertension, hyperlipidemia, obstructive sleep apnea with home CPAP, morbid obesity, chronic hypoxemic respiratory failure, factor V [place], DVTs in the left leg, among other medical comorbidities. Patient returns to the emergency room yesterday evening complaining of 1 week of runny nose, sore throat, nonproductive cough, chest congestion, and progressively worsening sh ortness of breath. No noted fevers. No chest pain. His had tested positive for influenza A last Wednesday or . She was treated with Tamiflu. He also received a 5-day course of Tamiflu because he was symptomatic at that time. He has completed his course of Tamiflu. The main reason for him coming into the emergency room was his breathing. Of note, he also has a chronic left foot wound that is draining a purulent yellow discharge. He did have an appointment to become reestablished with the wound care clinic, but was unable to make it due to transportation issues and his sickness. Patient is currently sitting up in the bedside recliner, on 2 L/min nasal cannula, in no acute distress. He does wear 2 L of home oxygen. He also has a home trilogy machine that he wears at night. Unfortunately, this is not at the bedside. Chest x-ray on arrival showed cardiomegaly with mild pulmonary vascular congestion and increased interstitial edema or pneumonitis. Patient does take Lasix on an outpatient basis daily. He has not missed any doses. As far as the patient's left foot and x-ray was done which showed general soft tissue prominence throughout the foot. There was severe osseous demineralization and diffuse degenerative changes limiting assessment. There was osteomyelitis involving the second through fifth metatarsals possible. Changes in the great toe proximal phalanx could be chronic sequela of osteomyelitis. Patient was placed on antibiotics including Unasyn and vancomycin in the emergency room. Infectious disease consult was placed. CBC on arrival: WC count 4.7, hemoglobin 9.6, hematocrit 28.7, platelets 159. BMP on arrival: Sodium 138, potassium 4.2, chloride 100, serum bicarb 29, BUN 47, creatinine 1.36, glucose 252. Lactic acid level 2.2 and down to 1.5. Troponin less than 0.012. NT proBNP low. Influenza A positive on arrival. Negative for influenza B, RSV, COVID. Patient is currently afebrile. Vital signs are stable. On today's evaluation of 07/16/2023, the patient is being seen for a follow-up. Patient is doing well. No specific complaints. He is on 2 L of oxygen by nasal cannula with a pulse ox of 96%. The patient the patient denies having any specific respiratory complaints. Same time, the patient is being monitored for possible left foot osteomyelitis. Ultrasound the left lower extremity was done and the patient was found to have peripheral vascular disease of the lower extremities bilaterally and the patient is going to undergo a bone scan, a triple phase bone scan regarding possible osteomyelitis. ID is on the case and blood cultures were sent and the patient remains on a combination of Unasyn and vancomycin. The patient remains on Solu-Medrol 60 mg every 6 hours. This can obviously be tapered off. BUN is at 37 with a creatinine of 1.4 and sodium levels at 136. White cell count of 9.8 with a hemoglobin of 9 and a platelet count of 197. On today's evaluation on 07/17/2023, patient is being seen for a follow-up. Doing well. No specific complaints. Resting comfortably in bed. No respirator y event. Or difficulties and the patient says she remains on the same medication. White cell count is at 12.4, hemoglobin is at 8.8 and a platelet count of 218. BUN is at 42 with a creatinine 1.25 and his sodium levels at 137. On today's evaluation of 07/18/2023, the patient is doing well. No specific complaints. No respite distress. Currently completing a prednisone burst taper starting with 30 mg. Labs are all stable. White cell count of 8 with a hemoglobin 15.2. BUN is at 28 with a creatinine of 0.4 and sodium levels at 139. Potassium is at 4.5. The patient has no specific complaints. The patient remains on oxygen 2 L/min nasal cannula. Resting comfortably on a chair. No respiratory distress at this point in time. Limited cough and congestion is still present. Antibiotics regarding osteomyelitis include IV Zosyn. The patient was found to have Pseudomonas and presumptive MRSA ID is on the case Objective - Vital Signs Vital signs: Vital Signs Temp 97.7 F 07/18/23 07:31 Pulse 72 07/18/23 08:31 Resp 17 07/18/23 07:31 BP 134/74 07/18/23 07:31 Pulse Ox 98 07/18/23 08:22 FiO2 Intake & Output 07/17/23 07/18/23 07/18/23 18:59 06:59 18:59 Other: Voiding Method Toilet Toilet Urinal Urinal # Voids 2 3 # Bowel Movements 1 - Exam GENERAL EXAM: Alert, 53-year-old morbidly obese male, sitting up in the bed side recliner, Comfortable in no apparent distress. HEAD: Normocephalic and atraumatic EYES: Normal reaction of pupils, equal size. NOSE: Clear with pink turbinates. THROAT: No erythema or exudates. NECK: No masses, no JVD. CHEST: No chest wall deformity. LUNGS: Equal air entry with scattered rhonchi, wheezing, and crackles. On 2 L/min nasal cannula. No conversational dyspnea or accessory muscle use while at rest CVS: S1 and S2 normal with no audible murmur, regular rhythm. No extra heart sounds ABDOMEN: Obese abdomen, no hepatosplenomegaly, active bowel sounds, no guarding or rigidity. SPINE: No scoliosis or deformity SKIN: No rashes CENTRAL NERVOUS SYSTEM: No focal deficits, tone is normal in all 4 extremities. EXTREMITIES: Significant lower extremity swelling with chronic venous stasis changes. Charcot foot deformity bilaterally. Ulceration on the ventral side of the left foot, draining a yellow purulent fluid. Limited mobility of this foot. Erythemic and edematous. No clubbing, or cyanosis. Peripheral pulses are intact. - Labs CBC & Chem 7: 07/18/23 06:46 07/18/23 06:46 Labs: Abnormal Lab Results - Last 24 Hours (Table) 07/17/23 07/17/23 07/17/23 Range/Units 07:07 11:38 16:50 WBC 12.42 H (4.50-10.00) X 10*3/uL RBC 2.98 L (4.40-5.60) X 10*6/uL Hgb 8.8 L (13.0-17.0) g/dL Hct 27.1 L (39.6-50.0) % Immature Gran # 0.18 H (0.00-0.04) X 10*3/uL Neutrophils # 9.95 H (1.80-7.70) X 10*3/uL Monocytes # 1.02 H (0.20-1.00) X 10*3/uL Eosinophils # 0 L (0.04-0.35) X 10*3/uL BUN (9-20) mg/dL Creatinine (0.66-1.25) mg/dL Glucose (74-99) mg/dL POC Glucose (mg/dL) 255 H 286 H (70-110) mg/dL Total Protein (6.3-8.2) g/dL Albumin (3.5-5.0) g/dL 07/17/23 07/18/23 07/18/23 Range/Units 20:10 05:41 06:46 WBC (4.50-10.00) X 10*3/uL RBC 3.21 L (4.40-5.60) X 10*6/uL Hgb 9.5 L (13.0-17.0) g/dL Hct 29.4 L (39.6-50.0) % Immature Gran # (0.00-0.04) X 10*3/uL Neutrophils # (1.80-7.70) X 10*3/uL Monocytes # (0.20-1.00) X 10*3/uL Eosinophils # (0.04-0.35) X 10*3/uL BUN (9-20) mg/dL Creatinine (0.66-1.25) mg/dL Glucose (74-99) mg/dL POC Glucose (mg/dL) 325 H 118 H (70-110) mg/dL Total Protein (6.3-8.2) g/dL Albumin (3.5-5.0) g/dL 07/18/23 Range/Units 06:46 WBC (4.50-10.00) X 10*3/uL RBC (4.40-5.60) X 10*6/uL Hgb (13.0-17.0) g/dL Hct (39.6-50.0) % Immature Gran # (0.00-0.04) X 10*3/uL Neutrophils # (1.80-7.70) X 10*3/uL Monocytes # (0.20-1.00) X 10*3/uL Eosinophils # (0.04-0.35) X 10*3/uL BUN 38 H (9-20) mg/dL Creatinine 1.43 H (0.66-1.25) mg/dL Glucose 102 H (74-99) mg/dL POC Glucose (mg/dL) (70-110) mg/dL Total Protein 6.1 L (6.3-8.2) g/dL Albumin 2.9 L (3.5-5.0) g/dL Microbiology - Last 24 Hours (Table) 07/15/23 17:00 Gram Stain - Preliminary Foot - Left Wound Culture - Preliminary Pseudomonas aeruginosa Presumptive MRSA 07/14/23 19:00 Blood Culture - Preliminary Blood Assessment and Plan Assessment: Acute influenza A infection/bronchitis, no obvious superimposed pneumonia on chest x-ray, already treated with a 5-day course of Tamiflu twice daily. Acute on chronic dyspnea, secondary to above, improved significantly Chronic diastolic congestive heart failure, chest x-ray shows cardiomegaly with mild vascular congestion and mild interstitial edema. Chronic hypoxemic respiratory failure, maintained on 2 L/min nasal cannula Possible osteomyelitis of the left foot, and left phalanx based on the bone scan . Diabetes mellitus, type II, insulin-dependent Chronic left lower extremity diabetic foot ulcer Charcot foot, bilaterally Chronic bilateral lower extremity edema and venous stasis Morbid obesity, with a BMI of 43.6 kg/m Obstructive sleep apnea, with home trilogy vent History of factor V deficiency History of DVT, anticoagulated on Eliquis History of hypertension History of hyperlipidemia History of GERD Chronic kidney disease stage III Anemia of chronic disease Plan: Continue same treatment S continue prednisone burst taper patient is currently on 30 mg Continue supplemental oxygen, currently on 2 L/min nasal cannula, which he uses chronically, no interval worsening in oxygenation Patient already completed course of Tamiflu Bone scan was suggestive of osteomyelitis and the culture was positive for Pseudomonas and the patient is currently on IV Zosynn Blood cultures have been sent ID is on the case Eliquis has been restarted. P.o. Lasix 40 mg daily restarted We will continue to follow
[2023-07-18] MEDS ORDERED: VANCOMYCIN IV PER PHARMACY 1 EACH MISC MISCELLANE PRN (16:41)
--- NOTE | 2023-07-18 16:41 | P.PN ---
Subjective Progress Note Date: 07/18/23 Principal diagnosis: Reason for follow-up is left foot wound and left lower extremity cellulitis Patient is a 53-year-old male with a past medical history significant for diabetes mellitus hypertension hyperlipidemia DVT did have a history of diabetic foot infection and osteomyelitis presenting to [facility] ER for evaluation of cough, patient recently treated for influenza before presentation to the hospital also noted to have increasing swelling redness to left lower extremity with a wound to the left foot. On today's evaluation that is 07/18/2023, patient has been afebrile, patient is breathing comfortably and is currently on 2 L nasal cannula oxygen, patient denies having chest pain cough is decreased in intensity not bring up any sputum, patient denies nausea vomiting or diarrhea and no abdominal pain, denies pain to the left lower extremity. Patient white count is 10.1, creatinine is 1.43 local culture growing present MRSA and Pseudomonas Objective - Vital Signs Vital signs: Vital Signs Temp 97.9 F 07/18/23 13:38 Pulse 69 07/18/23 16:03 Resp 18 07/18/23 13:38 BP 97/54 07/18/23 13:38 Pulse Ox 94 L 07/18/23 13:38 FiO2 Intake & Output 07/17/23 07/18/23 07/18/23 18:59 06:59 18:59 Other: Voiding Method Toilet Toilet Toilet Urinal Urinal Urinal # Voids 2 3 3 # Bowel Movements 1 - Exam GENERAL DESCRIPTION: Middle-age male lying in bed in no distress RESPIRATORY SYSTEM: Unlabored breathing , decreased breath sounds at bases HEART: S1 S2 regular rate and rhythm , ABDOMEN: Soft , no tenderness EXTREMITIES: Left lower extremity currently covered with Speedy wrap patient did n ot have any wound swelling or redness to the right big toe - Labs CBC & Chem 7: 07/18/23 06:46 07/18/23 06:46 Labs: Abnormal Lab Results - Last 24 Hours (Table) 07/17/23 07/17/23 07/18/23 Range/Units 16:50 20:10 05:41 RBC (4.30-5.90) m/uL Hgb (13.0-17.5) gm/dL Hct (39.0-53.0) % BUN (9-20) mg/dL Creatinine (0.66-1.25) mg/dL Glucose (74-99) mg/dL POC Glucose (mg/dL) 286 H 325 H 118 H (70-110) mg/dL Total Protein (6.3-8.2) g/dL Albumin (3.5-5.0) g/dL 07/18/23 07/18/23 Range/Units 06:46 06:46 RBC 3.21 L (4.30-5.90) m/uL Hgb 9.5 L (13.0-17.5) gm/dL Hct 29.4 L (39.0-53.0) % BUN 38 H (9-20) mg/dL Creatinine 1.43 H (0.66-1.25) mg/dL Glucose 102 H (74-99) mg/dL POC Glucose (mg/dL) (70-110) mg/dL Total Protein 6.1 L (6.3-8.2) g/dL Albumin 2.9 L (3.5-5.0) g/dL Microbiology - Last 24 Hours (Table) 07/15/23 17:00 Anaerobic Culture - Preliminary Foot - Left 07/15/23 17:00 Gram Stain - Preliminary Foot - Left Wound Culture - Preliminary Pseudomonas aeruginosa Presumptive MRSA 07/14/23 19:00 Blood Culture - Preliminary Blood Assessment and Plan (1) Left leg cellulitis Current Visit: Yes Status: Acute Code(s): L03.116 - CELLULITIS OF LEFT LOWER LIMB SNOMED Code(s): 61829057498533202 (2) Type 2 diabetes mellitus with foot ulcer Current Visit: No Status: Acute Code(s): E11.621 - TYPE 2 DIABETES MELLITUS WITH FOOT ULCER; L97.509 - NON-PRESSURE CHRONIC ULCER OTH PRT UNSP FOOT W UNSP SEVERITY SNOMED Code(s): 602086069 (3) MRSA (methicillin resistant staph aureus) culture positive Current Visit: Yes Status: Acute Code(s): Z22.322 - CARRIER OR SUSPECTED CARRIER OF METHICILLIN RESIS STAPH SNOMED Code(s): 976627089 Plan: 1patient presented hospital with increasing shortness of breath and [id number] this patient with a recent diagnosis of influenza A for which he has completed 5-day course of Tamiflu chest x-ray mostly CHF pulmonary is following the patient. 2patient with left diabetic foot wound with significant changes on the x-ray and concerning for cellulitis to left lower extremity. 3patient sed rate is 26 bone scan shows abnormality to the left big toe however the patient do not have any redness wound to the right big toe question related to underlying arthritis not behaving as osteomyelitis 4cultures are growing present MRSA and Pseudomonas we will discontinue Zosyn and start the patient on vancomycin and cefepime with the discharge antibiotic on the basis of sensitivity of MRSA Dictation was produced using [employer] dictation software. please excuse any grammatical, word or spelling errors. Time with Patient: Less than 30
[2023-07-18 16:53] LABS: Glucose,Whole Blood 177 mg/dL (70-110)
[2023-07-18] MEDS: CEFEPIME 2 GM in SODIUM CHLORIDE 0.9% 100 ML IVPB SCH (17:09)
[2023-07-18] MEDS: VANCOMYCIN 2,000 MG in SODIUM CHLORIDE 0.9% 500 ML 500 ML IVPB SCH (17:51)
[2023-07-18 19:52] LABS: Glucose,Whole Blood 212 mg/dL (70-110)
--- NOTE | 2023-07-19 00:07 | PN ---
PROGRESS NOTE DATE OF SERVICE: 07/18/2023 SUBJECTIVE: This is a 53-year-old gentleman, who was admitted with COPD exacerbation and influenza A, still short of breath. No chest pain. No palpitation. PHYSICAL EXAMINATION: VITAL SIGNS: Pulse 77, blood pressure n, respirations 18. CHEST: Bilateral scattered rhonchi. ABDOMEN: Soft. NERVOUS SYSTEM: No focal deficit. LABORATORY DATA: Creatinine 1.4. The rest of the labs are noted. ASSESSMENT: 1. Chronic obstructive pulmonary disease exacerbation with acute purulent tracheobronchitis. 2. Acute influenza A. 3. Acute left leg cellulitis with possible osteomyelitis. 4. Peripheral vascular disease. 5. Diabetic ulcer. 6. Multiple medical issues. RECOMMENDATIONS: Recommend to continue current management. Continue the bronchodilators. Continue the antibiotics. Closely follow. Repeat labs will be ordered. Monitor renal functions closely. The patient is on Eliquis. MMODL / IJN: [id number] / MTDD
[2023-07-19 05:48] LABS: Glucose,Whole Blood 127 mg/dL (70-110)
[2023-07-19 08:26] LABS: Basophils # (A) 0.03 X 10*3/uL (0.00-0.10); Basophils % (A) 0.3 %; Eosinophils # (A) 0.14 X 10*3/uL (0.04-0.35); Eosinophils % (A) 1.4 %; HCT 29.7 % (39.6-50.0); HGB 9.2 g/dL (13.0-17.0); Lymphocytes # (A) 2.02 X 10*3/uL (0.90-5.00); Lymphocytes % (A) 19.9 %; MCV 90.5 FL (80.0-97.0); Mean Platelet Volume 10.7 FL (9.5-12.2); Monocytes # (A) 1.37 X 10*3/uL (0.20-1.00); Monocytes % (A) 13.5 %; NRBC Per 100 WBC 0 X 10*3/uL (0.00-0.01); Neutrophils # (A) 6.08 X 10*3/uL (1.80-7.70); Platelet Count 205 X 10*3/uL (140-440); RBC 3.28 X 10*6/uL (4.40-5.60); RDW 13.9 % (11.5-14.5); WBC 10.14 X 10*3/uL (4.50-10.00)
[2023-07-19 08:44] LABS: BUN/Creat Ratio 25.71 Ratio (12.00-20.00); Calcium 8.4 mg/dL (8.7-10.3); Carbon Dioxide 26.2 mmol/L (21.6-31.8); Chloride 104 mmol/L (96-109); Glucose 158 mg/dL (70-110); Potassium 4.7 mmol/L (3.5-5.5); Sodium 139 mmol/L (135-145)
[2023-07-19 11:33] LABS: Glucose,Whole Blood 128 mg/dL (70-110)
--- NOTE | 2023-07-19 12:40 | P.PN ---
Subjective Progress Note Date: 07/19/23 Principal diagnosis: Influenza A, chronic foot wound Patient seen and examined today as a follow-up. States he continues to have cough and shortness of breath. Denies any fevers chills or bodyaches. No new changes to his foot. He had bone scan completed which reported osteomyelitis proximal phalanx of first digit. And cellulitis. He remains on IV antibiotics and followed by infectious disease. Dr. Coleman was consulted on Wednesday he is yet to see the patient. Also underwent arterial ultrasound of lower extremities on Wednesday which was reviewed with good waveforms with diabetic microvascular disease. Objective - Vital Signs Vital signs: Vital Signs Temp 98.0 F 07/19/23 08:35 Pulse 72 07/19/23 12:05 Resp 17 07/19/23 08:35 BP 132/65 07/19/23 08:35 Pulse Ox 99 07/19/23 08:35 FiO2 Intake & Output 07/18/23 07/19/23 07/19/23 18:59 06:59 18:59 Other: Voiding Method Toilet Toilet Toilet Urinal Urinal Urinal # Voids 3 3 - Exam General appearance: The patient is alert, oriented, appears in no acute distress. HET: Head is normocephalic and atraumatic. Pupils are equal and reactive. Neck: Supple. Abdomen: Soft, obese bilateral lower extremities with Speedy wrap's. Nondistended. Extremities: Bilateral lower extremities with Speedy wrap's. Neurological: No focal deficits. Alert and oriented - Labs CBC & Chem 7: 07/19/23 04:20 07/19/23 04:20 Labs: Abnormal Lab Results - Last 24 Hours (Table) 07/18/23 07/18/23 07/19/23 Range/Units 16:51 19:51 04:20 WBC 10.14 H (4.50-10.00) X 10*3/uL RBC 3.28 L (4.40-5.60) X 10*6/uL Hgb 9.2 L (13.0-17.0) g/dL Hct 29.7 L (39.6-50.0) % MCHC 31.0 L (32.0-37.0) g/dL Immature Gran # 0.50 H (0.00-0.04) X 10*3/uL Monocytes # 1.37 H (0.20-1.00) X 10*3/uL BUN (9.0-27.0) mg/dL BUN/Creatinine Ratio (12.00-20.00) Ratio Glucose (70-110) mg/dL POC Glucose (mg/dL) 177 H 212 H (70-110) mg/dL Calcium (8.7-10.3) mg/dL 07/19/23 07/19/23 07/19/23 Range/Units 04:20 05:47 11:32 WBC (4.50-10.00) X 10*3/uL RBC (4.40-5.60) X 10*6/uL Hgb (13.0-17.0) g/dL Hct (39.6-50.0) % MCHC (32.0-37.0) g/dL Immature Gran # (0.00-0.04) X 10*3/uL Monocytes # (0.20-1.00) X 10*3/uL BUN 36.0 H (9.0-27.0) mg/dL BUN/Creatinine Ratio 25.71 H (12.00-20.00) Ratio Glucose 158 H (70-110) mg/dL POC Glucose (mg/dL) 127 H 128 H (70-110) mg/dL Calcium 8.4 L (8.7-10.3) mg/dL Microbiology - Last 24 Hours (Table) 07/15/23 17:00 Gram Stain - Final Foot - Left Wound Culture - Final Pseudomonas aeruginosa Methicillin resist S. aureus 07/15/23 17:00 Anaerobic Culture - Preliminary Foot - Left Assessment and Plan Assessment: 1. Left foot diabetic ulcer 2. Osteomyelitis left proximal phalanx first digit 3. History of Charcot feet 4. History of chronic wound to the left foot 5. Diabetes mellitus 7. Venous insufficiency with venous stasis and dermatitis 8. Morbid obesity Plan: 1. Arterial duplex ordered of bilateral lower extremities and reviewed 2. Continue local wound care per recommendations from wound clinic 3. Dr. Coleman consulted for wound and possible osteomyelitis, as patient has been following him in the outpatient setting for the past couple years 4. Continue with recommendations from infectious disease 5. There is no indication for any vascular surgical intervention. Patient can follow-up with me outpatient in 2 to 3 weeks to establish and monitor vascular insufficiency and diabetic disease. Thank you for this consultation, we will sign off at this time. The impression and plan of care has been dictated as directed. I performed a history and examination of this patient, discussed the same with the dictator. I agree with the dictator's note ,documented as a scribe. Any additional findings or plans will be noted.
--- NOTE | 2023-07-19 14:54 | P.PN ---
Subjective Progress Note Date: 07/19/23 Patient is a 53-year-old male who was admitted with COPD exacerbation along with acute influenza A infection. Patient continues to report shortness of breath and is currently maintained on oxygen. Patient reports he chronically wears oxygen outpatient. Patient also being followed by infectious disease along with pulmonary and maintained on antibiotics for left lower extremity cellulitis. Culture showing MRSA with Pseudomonas and is being transition to vancomycin. Apparently Dr. Coleman is consulted and will evaluate the patient on 07/20/2023. Review of systems: Constitutional: No reports of fatigue, fever, or chills Cardiovascular: No reports of chest pain or palpitations Respiratory: reports of continued shortness of breath with cough GI: No reports of nausea, no reports of vomiting, no reports of diarrhea : No reports of dysuria or retention Neurovascular: reports of generalized weakness, reports continued left lower extremity pain and swelling All medications have been reviewed Active Medications Acetaminophen (Acetaminophen Tab 325 Mg Tab) 650 mg PO Q6HR PRN PRN Reason: Mild Pain or Fever > 100.5 Hydrocodone Bitart/Acetaminophen (Hydrocodone/Apap 5-325mg 1 Each Tab) 1 each PO Q4HR PRN PRN Reason: Moderate Pain (Scale 4 to 6) Last Admin: 07/18/23 00:41 Dose: 1 each Albuterol Sulfate (Albuterol Nebulized 2.5 Mg/3 Ml) 2.5 mg INHALATION RT-Q2H PRN PRN Reason: Shortness Of Breath Or Wheezing Albuterol/Ipratropium (Ipratropium-Albuterol 3 Ml Neb) 3 ml INHALATION RT-QID [facility] Last Admin: 07/19/23 11:53 Dose: 3 ml Apixaban (Apixaban 5 Mg Tab) 5 mg PO BID [facility]; Protocol Last Admin: 07/19/23 07:31 Dose: 5 mg Atorvastatin Calcium (Atorvastatin 80 Mg Tab) 80 mg PO DAILY [facility] Last Admin: 07/19/23 07:30 Dose: 80 mg Cholecalciferol (Cholecalciferol 25 Mcg (1000 Iu) Tablet) 25 mcg PO DAILY [facility] Last Admin: 07/19/23 07:31 Dose: 25 mcg Cyclobenzaprine HCl (Cyclobenzaprine 10 Mg Tab) 10 mg PO BID [facility] Last Admin: 07/19/23 07:30 Dose: 10 mg Dextrose/Water (Dextrose 50% Syringe 50 Ml) 25 ml IVP PER PROTOCOL PRN; Protocol PRN Reason: Hypoglycemia Dicyclomine HCl (Dicyclomine 20 Mg Tab) 20 mg PO BID [facility] Last Admin: 07/19/23 07:31 Dose: 20 mg Ergocalciferol (Ergocalciferol 1,250 Mcg (50,000 Iu) Capsule) 1,250 mcg PO QMONTHLY ROBERTA Ferrous Sulfate (Ferrous Sulfate 325 Mg Tab) 325 mg PO BID [facility] Last Admin: 07/19/23 07:30 Dose: 325 mg Furosemide (Furosemide 40 Mg Tab) 40 mg PO DAILY [facility] Last Admin: 07/19/23 07:39 Dose: 40 mg Guaifenesin/Dextromethorphan (Guaifenesin-Dm 100-10mg/5ml 10 Ml Cup) 10 ml PO Q6HR PRN PRN Reason: Cough Last Admin: 07/18/23 13:18 Dose: 10 ml Cefepime HCl 2 gm/ Sodium (Chloride) 100 mls @ 25 mls/hr IVPB Q12H [facility]; Protocol Last Admin: 07/19/23 06:42 Dose: 25 mls/hr Vancomycin HCl 2,000 mg/ (Sodium Chloride) 500 mls @ 167 mls/hr IVPB Q24H [facility] Last Admin: 07/18/23 17:51 Dose: 167 mls/hr Insulin Aspart (Insulin Aspart (Novolog) 100 Unit/Ml Vial) 0 unit SQ ACHS [facility]; Protocol Last Admin: 07/19/23 11:44 Dose: Not Given Insulin Aspart (Insulin Aspart (Novolog) 100 Unit/Ml Vial) 12 unit SQ TID- W/MEALS [facility] Last Admin: 07/19/23 11:44 Dose: Not Given Insulin Detemir (Insulin Detemir (Levemir) 100 Unit/Ml Syr) 30 unit SQ BID@0700,2100 [facility] Last Admin: 07/19/23 06:42 Dose: 30 unit Lactic Acid (Ammonium Lactate 12% Lotion 225 Gm Btl) 1 applic TOPICAL DAILY [facility]; Protocol Last Admin: 07/19/23 07:39 Dose: 1 applic Latanoprost (Latanoprost 0.005% Ophth Drops 2.5 Ml Btl) 1 drops BOTH EYES HS [facility] Last Admin: 07/18/23 21:22 Dose: 1 drops Lisinopril (Lisinopril 2.5 Mg Tab) 2.5 mg PO DAILY [facility] Last Admin: 07/19/23 07:40 Dose: 2.5 mg Magnesium Oxide (Magnesium Oxide 400 Mg Tab) 400 mg PO DAILY [facility] Last Admin: 07/19/23 07:30 Dose: 400 mg Metformin HCl (Metformin 500 Mg Tab) 1,000 mg PO BID [facility] Last Admin: 07/19/23 07:30 Dose: 1,000 mg Metoclopramide HCl (Metoclopramide 10 Mg Tab) 10 mg PO DAILY PRN PRN Reason: Nausea And Vomiting Morphine Sulfate (Morphine Sulfate 4 Mg/Ml Syringe) 4 mg IV Q4HR PRN PRN Reason: Severe Pain (Scale 7 to 10) Naloxone HCl (Naloxone 0.4 Mg/Ml 1 Ml Vial) 0.2 mg IV Q2M PRN PRN Reason: Opioid Reversal Non-Formulary Medication (Dextroamphetamine/Amphetamine [Adderall Xr 20 Mg C apsule]) 20 mg PO DAILY [facility] Last Admin: 07/19/23 07:33 Dose: Not Given Non-Formulary Medication (Tadalafil [Tadalafil]) 5 mg PO DAILY [facility] Last Admin: 07/19/23 07:32 Dose: Not Given Ondansetron HCl (Ondansetron 4 Mg/2 Ml Vial) 4 mg IVP Q8HR PRN PRN Reason: Nausea And Vomiting Last Admin: 07/18/23 09:46 Dose: 4 mg Pantoprazole Sodium (Pantoprazole 40 Mg Tablet) 40 mg PO AC-BRKFST [facility] Last Admin: 07/19/23 07:31 Dose: 40 mg Potassium Chloride (Potassium Chloride Er 10 Meq Tab.Er.Prt) 10 meq PO DAILY [facility] Last Admin: 07/19/23 07:31 Dose: 10 meq Prednisone (Prednisone 10 Mg Tab) 30 mg PO DAILY [facility] Last Admin: 07/19/23 07:30 Dose: 30 mg PHYSICAL EXAMINATION: GENERAL: The patient is alert and oriented x4, awake, well developed, well nourished. Morbidly obese, appears older than stated age HEENT: Pupils are round and equally reacting to light. EOMI. no scleral icterus. No conjunctival pallor. Normocephalic, atraumatic. No pharyngeal erythema. No thyromegaly. CARDIOVASCULAR: S1 and S2 muffled PULMONARY: diminished breath sounds bilaterally with some expiratory wheezing and rhonchi noted. ABDOMEN: soft. Nontender on exam. obese. non-distended, normoactive bowel sounds. No palpable organomegaly. MUSCULOSKELETAL: No joint swelling or deformity. EXTREMITIES: No cyanosis, clubbing, or pedal edema. Bilateral lower extremity swelling although left lower extremity swelling significantly worse with redness noted, currently Speedy wrapped NEUROLOGICAL: Gross neurological examination did not reveal any focal deficits. Diffuse weakness SKIN: No rashes. Assessment: Chronic obstructive pulmonary disease acute exacerbation with acute purulent tracheobronchitis Acute on chronic hypoxic respiratory failure secondary to above Acute influenza A Acute left leg cellulitis with possible osteomyelitis History of diabetes mellitus, type II, insulin-dependent, uncontrolled with hyper and hypoglycemia History of anxiety/depression Peripheral vascular disease history History of diabetic ulcers History of Charcot feet History of DVT History of sleep apnea uses a BiPAP at night Morbid obesity with a BMI of 43.6 GI prophylaxis DVT prophylaxis Full code Plan: Recommend to continue with current medications and management with multiple consultations following. Pulmonary following for acute COPD exacerbation continued on IV steroids along with DuoNeb treatments Infectious disease following for lower extremity cellulitis along with vascular surgery. Patient underwent bone scan which reported osteomyelitis of the proximal phalanx of the first digit along with cellulitis. Dr. Coleman podiatry has been consulted and will see the patient on 07/20/2023 Continue to elevate lower extremities while at rest and continue using Speedy wrap's along with wound care instructions per ID Will follow-up on repeat labs Await podiatry consult and input and recommendations Due to multiple complex medical issues, prognosis is guarded The impression and plan of care has been dictated by Opal Soliman, nurse practitioner as directed. Dr. Lee LARSON I have performed a history and examination and MDM of this patient, discussed the same with the dictator, and agree with the dictator's assessment and plan as written ,documented as a scribe. Based on total visit time, I have performed more than 50% of the visit. Any additional findings or plans will be noted. Objective - Vital Signs Vital signs: Vital Signs Temp 98.2 F 07/19/23 14:00 Pulse 96 07/19/23 14:00 Resp 17 07/19/23 14:00 BP 121/55 07/19/23 14:00 Pulse Ox 96 07/19/23 14:00 FiO2 Intake & Output 07/18/23 07/19/23 07/19/23 18:59 06:59 18:59 Intake Total 250 Balance 250 Intake: Oral 250 Other: Voiding Method Toilet Toilet Toilet Urinal Urinal Urinal # Voids 3 3 - Labs CBC & Chem 7: 07/19/23 04:20 07/19/23 04:20 Labs: Abnormal Lab Results - Last 24 Hours (Table) 07/18/23 07/18/23 07/19/23 Range/Units 16:51 19:51 04:20 WBC 10.14 H (4.50-10.00) X 10*3/uL RBC 3.28 L (4.40-5.60) X 10*6/uL Hgb 9.2 L (13.0-17.0) g/dL Hct 29.7 L (39.6-50.0) % MCHC 31.0 L (32.0-37.0) g/dL Immature Gran # 0.50 H (0.00-0.04) X 10*3/uL Monocytes # 1.37 H (0.20-1.00) X 10*3/uL BUN (9.0-27.0) mg/dL BUN/Creatinine Ratio (12.00-20.00) Ratio Glucose (70-110) mg/dL POC Glucose (mg/dL) 177 H 212 H (70-110) mg/dL Calcium (8.7-10.3) mg/dL 07/19/23 07/19/23 07/19/23 Range/Units 04:20 05:47 11:32 WBC (4.50-10.00) X 10*3/uL RBC (4.40-5.60) X 10*6/uL Hgb (13.0-17.0) g/dL Hct (39.6-50.0) % MCHC (32.0-37.0) g/dL Immature Gran # (0.00-0.04) X 10*3/uL Monocytes # (0.20-1.00) X 10*3/uL BUN 36.0 H (9.0-27.0) mg/dL BUN/Creatinine Ratio 25.71 H (12.00-20.00) Ratio Glucose 158 H (70-110) mg/dL POC Glucose (mg/dL) 127 H 128 H (70-110) mg/dL Calcium 8.4 L (8.7-10.3) mg/dL Microbiology - Last 24 Hours (Table) 07/15/23 17:00 Gram Stain - Final Foot - Left Wound Culture - Final Pseudomonas aeruginosa Methicillin resist S. aureus 07/15/23 17:00 Anaerobic Culture - Preliminary Foot - Left
--- NOTE | 2023-07-19 16:19 | P.PN ---
Subjective Progress Note Date: 07/19/23 I am seeing this patient in new consultation today 07/15/2023 after he presented with several days of flulike symptoms. Patient is a 53-year-old white male with past medical history significant for diabetes mellitus, chronic kidney disease, chronic lower extremity wounds which he follows at the wound care center, Charcot foot, hypertension, hyperlipidemia, obstructive sleep apnea with home CPAP, morbid obesity, chronic hypoxemic respiratory failure, factor V [place], DVTs in the left leg, among other medical comorbidities. Patient returns to the emergency room yesterday evening complaining of 1 week of runny nose, sore throat, nonproductive cough, chest congestion, and progressively worsening shanelle rtness of breath. No noted fevers. No chest pain. His had tested positive for influenza A last Wednesday or . She was treated with Tamiflu. He also received a 5-day course of Tamiflu because he was symptomatic at that time. He has completed his course of Tamiflu. The main reason for him coming into the emergency room was his breathing. Of note, he also has a chronic left foot wound that is draining a purulent yellow discharge. He did have an appointment to become reestablished with the wound care clinic, but was unable to make it due to transportation issues and his sickness. Patient is currently sitting up in the bedside recliner, on 2 L/min nasal cannula, in no acute distress. He does wear 2 L of home oxygen. He also has a home trilogy machine that he wears at night. Unfortunately, this is not at the bedside. Chest x-ray on arrival showed cardiomegaly with mild pulmonary vascular congestion and increased interstitial edema or pneumonitis. Patient does take Lasix on an outpatient basis daily. He has not missed any doses. As far as the patient's left foot and x-ray was done which showed general soft tissue prominence throughout the foot. There was severe osseous demineralization and diffuse degenerative changes limiting assessment. There was osteomyelitis involving the second through fifth metatarsals possible. Changes in the great toe proximal phalanx could be chronic sequela of osteomyelitis. Patient was placed on antibiotics including Unasyn and vancomycin in the emergency room. Infectious disease consult was placed. CBC on arrival: WC count 4.7, hemoglobin 9.6, hematocrit 28.7, platelets 159. BMP on arrival: Sodium 138, potassium 4.2, chloride 100, serum bicarb 29, BUN 47, creatinine 1.36, glucose 252. Lactic acid level 2.2 and down to 1.5. Troponin less than 0.012. NT proBNP low. Influenza A positive on arrival. Negative for influenza B, RSV, COVID. Patient is currently afebrile. Vital signs are stable. On today's evaluation of 07/16/2023, the patient is being seen for a follow-up. Patient is doing well. No specific complaints. He is on 2 L of oxygen by nasal cannula with a pulse ox of 96%. The patient the patient denies having any specific respiratory complaints. Same time, the patient is being monitored for possible left foot osteomyelitis. Ultrasound the left lower extremity was done and the patient was found to have peripheral vascular disease of the lower extremities bilaterally and the patient is going to undergo a bone scan, a triple phase bone scan regarding possible osteomyelitis. ID is on the case and blood cultures were sent and the patient remains on a combination of Unasyn and vancomycin. The patient remains on Solu-Medrol 60 mg every 6 hours. This can obviously be tapered off. BUN is at 37 with a creatinine of 1.4 and sodium levels at 136. White cell count of 9.8 with a hemoglobin of 9 and a platelet count of 197. On today's evaluation on 07/17/2023, patient is being seen for a follow-up. Doing well. No specific complaints. Resting comfortably in bed. No respiratory event. Or difficulties and the patient says she remains on the same medication. White cell count is at 12.4, hemoglobin is at 8.8 and a platelet count of 218. BUN is at 42 with a creatinine 1.25 and his sodium levels at 137. On today's evaluation of 07/18/2023, the patient is doing well. No specific complaints. No respite distress. Currently completing a prednisone burst taper starting with 30 mg. Labs are all stable. White cell count of 8 with a hemoglobin 15.2. BUN is at 28 with a creatinine of 0.4 and sodium levels at 139. Potassium is at 4.5. The patient has no specific complaints. The patient remains on oxygen 2 L/min nasal cannula. Resting comfortably on a chair. No respiratory distress at this point in time. Limited cough and congestion is still present. Antibiotics regarding osteomyelitis include IV Zosyn. The patient was found to have Pseudomonas and presumptive MRSA ID is on the case The patient is seen today July 19, 2023 in follow-up on the regular medical floor. He is currently sitting up in a chair at the bedside. Awake and alert in no acute distress. He is maintaining O2 saturations in the 90s on 2 L/min per nasal cannula. He has completed a course of Tamiflu. His left foot wound is positive for Pseudomonas and MRSA. Bone scan revealed cellulitis with findings suggestive of osteomyelitis in the proximal phalanx first digit. He remains on vancomycin and cefepime. White count 10.1. Hemoglobin 9.2. Platelets 205. Sodium 139. Potassium 4.7. Bicarb 26. BUN 36. Creatinine 1.4. Glucose 158. Anticoagulated with Eliquis. Remains on prednisone taper. Continued on diuretics. Objective - Vital Signs Vital signs: Vital Signs Temp 98.2 F 07/19/23 14:00 Pulse 72 07/19/23 15:50 Resp 17 07/19/23 14:00 BP 121/55 07/19/23 14:00 Pulse Ox 96 07/19/23 14:00 FiO2 Intake & Output 07/18/23 07/19/23 07/19/23 18:59 06:59 18:59 Intake Total 250 Balance 250 Intake: Oral 250 Other: Voiding Method Toilet Toilet Toilet Urinal Urinal Urinal # Voids 3 3 5 - Exam GENERAL EXAM: Alert, pleasant 53-year-old morbidly obese male, on 2 L nasal cannula, sitting up in the recliner, in no apparent distress. HEAD: Normocephalic and atraumatic EYES: Normal reaction of pupils, equal size. NOSE: Clear with pink turbinates. THROAT: No erythema or exudates. NECK: No masses, no JVD. CHEST: No chest wall deformity. LUNGS: Equal air entry with scattered rhonchi, wheezing, and crackles. No conversational dyspnea or accessory muscle use. CVS: S1 and S2 normal with no audible murmur, regular rhythm. No extra heart sounds ABDOMEN: Obese abdomen, no hepatosplenomegaly, active bowel sounds, no guarding or rigidity. SPINE: No scoliosis or deformity SKIN: No rashes CENTRAL NERVOUS SYSTEM: No focal deficits, tone is normal in all 4 extremities. EXTREMITIES: Significant lower extremity swelling with chronic venous stasis changes. Charcot foot deformity bilaterally. Ulceration on the ventral side of the left foot, draining a yellow purulent fluid. Erythemic and edematous. Perip heral pulses are intact. - Labs CBC & Chem 7: 07/19/23 04:20 07/19/23 04:20 Labs: Abnormal Lab Results - Last 24 Hours (Table) 07/18/23 07/18/23 07/19/23 Range/Units 16:51 19:51 04:20 WBC 10.14 H (4.50-10.00) X 10*3/uL RBC 3.28 L (4.40-5.60) X 10*6/uL Hgb 9.2 L (13.0-17.0) g/dL Hct 29.7 L (39.6-50.0) % MCHC 31.0 L (32.0-37.0) g/dL Immature Gran # 0.50 H (0.00-0.04) X 10*3/uL Monocytes # 1.37 H (0.20-1.00) X 10*3/uL BUN (9.0-27.0) mg/dL BUN/Creatinine Ratio (12.00-20.00) Ratio Glucose (70-110) mg/dL POC Glucose (mg/dL) 177 H 212 H (70-110) mg/dL Calcium (8.7-10.3) mg/dL 07/19/23 07/19/23 07/19/23 Range/Units 04:20 05:47 11:32 WBC (4.50-10.00) X 10*3/uL RBC (4.40-5.60) X 10*6/uL Hgb (13.0-17.0) g/dL Hct (39.6-50.0) % MCHC (32.0-37.0) g/dL Immature Gran # (0.00-0.04) X 10*3/uL Monocytes # (0.20-1.00) X 10*3/uL BUN 36.0 H (9.0-27.0) mg/dL BUN/Creatinine Ratio 25.71 H (12.00-20.00) Ratio Glucose 158 H (70-110) mg/dL POC Glucose (mg/dL) 127 H 128 H (70-110) mg/dL Calcium 8.4 L (8.7-10.3) mg/dL Microbiology - Last 24 Hours (Table) 07/15/23 17:00 Gram Stain - Final Foot - Left Wound Culture - Final Pseudomonas aeruginosa Methicillin resist S. aureus 07/15/23 17:00 Anaerobic Culture - Preliminary Foot - Left Assessment and Plan Assessment: Acute influenza A infection/bronchitis, no obvious superimposed pneumonia on chest x-ray, already completed Tamiflu Acute on chronic dyspnea, secondary to above, improved significantly Chronic diastolic congestive heart failure, chest x-ray shows cardiomegaly with mild vascular congestion and mild interstitial edema Chronic hypoxemic respiratory failure, maintained on 2 L/min nasal cannula Osteomyelitis of the left foot, and left phalanx based on the bone scan Diabetes mellitus, type II, insulin-dependent Chronic left lower extremity diabetic foot ulcer Charcot foot, bilaterally Chronic bilateral lower extremity edema and venous stasis Morbid obesity, with a BMI of 43.6 kg/m Obstructive sleep apnea, with home trilogy vent History of factor V deficiency History of DVT, anticoagulated on Eliquis History of hypertension History of hyperlipidemia History of GERD Chronic kidney disease stage III Anemia of chronic disease Plan: The patient was seen and evaluated Labs and medications reviewed Continued on vancomycin and cefepime Continued on prednisone taper, bronchodilators Continued on diuretics Completed Tamiflu Remains on 2 L nasal cannula Titrate the FiO2 as tolerated We will continue to follow I have personally seen and examined the patient, performed the documentation and the assessment and plan as written. Number of minutes spent on the visit: 10.
[2023-07-19 16:54] LABS: Glucose,Whole Blood 233 mg/dL (70-110)
--- NOTE | 2023-07-19 18:03 | P.PN ---
Subjective Progress Note Date: 07/19/23 Principal diagnosis: Reason for follow-up is left foot wound and left lower extremity cellulitis Patient is a 53-year-old male with a past medical history significant for diabetes mellitus hypertension hyperlipidemia DVT did have a history of diabetic foot infection and osteomyelitis presenting to [facility] ER for evaluation of cough, patient recently treated for influenza before presentation to the hospital also noted to have increasing swelling redness to left lower extremity with a wound to the left foot. On today's evaluation that is 07/19/2023,the patient denies any fever or any chills, patient is breathing comfortably on 2 L nasal cannula oxygen the patient denies chest pain shortness of breath and cough has decreased in intensity patient denies abdominal pain, no nausea vomiting or diarrhea. Denies pain to the left lower extremity. The patient white count is 10.14 creatinine is 1.4 culture with MRSA and Pseudomonas Objective - Vital Signs Vital signs: Vital Signs Temp 98.0 F 07/19/23 08:35 Pulse 68 07/19/23 08:39 Resp 17 07/19/23 08:35 BP 132/65 07/19/23 08:35 Pulse Ox 99 07/19/23 08:35 FiO2 Intake & Output 07/18/23 07/19/23 07/19/23 18:59 06:59 18:59 Other: Voiding Method Toilet Toilet Toilet Urinal Urinal Urinal # Voids 3 3 - Exam GENERAL DESCRIPTION: Middle-age male lying in bed in no distress RESPIRATORY SYSTEM: Unlabored breathing , decreased breath sounds at bases HEART: S1 S2 regular rate and rhythm , ABDOMEN: Soft , no tenderness EXTREMITIES: Left lower extremity currently covered with Speedy wrap patient did not have any wound swelling or redness to the right big toe - Labs CBC & Chem 7: 07/19/23 04:20 07/19/23 04:20 Labs: Abnormal Lab Results - Last 24 Hours (Table) 07/18/23 07/18/23 07/19/23 Range/Units 16:51 19:51 04:20 WBC 10.14 H (4.50-10.00) X 10*3/uL RBC 3.28 L (4.40-5.60) X 10*6/uL Hgb 9.2 L (13.0-17.0) g/dL Hct 29.7 L (39.6-50.0) % MCHC 31.0 L (32.0-37.0) g/dL Immature Gran # 0.50 H (0.00-0.04) X 10*3/uL Monocytes # 1.37 H (0.20-1.00) X 10*3/uL BUN (9.0-27.0) mg/dL BUN/Creatinine Ratio (12.00-20.00) Ratio Glucose (70-110) mg/dL POC Glucose (mg/dL) 177 H 212 H (70-110) mg/dL Calcium (8.7-10.3) mg/dL 07/19/23 07/19/23 07/19/23 Range/Units 04:20 05:47 11:32 WBC (4.50-10.00) X 10*3/uL RBC (4.40-5.60) X 10*6/uL Hgb (13.0-17.0) g/dL Hct (39.6-50.0) % MCHC (32.0-37.0) g/dL Immature Gran # (0.00-0.04) X 10*3/uL Monocytes # (0.20-1.00) X 10*3/uL BUN 36.0 H (9.0-27.0) mg/dL BUN/Creatinine Ratio 25.71 H (12.00-20.00) Ratio Glucose 158 H (70-110) mg/dL POC Glucose (mg/dL) 127 H 128 H (70-110) mg/dL Calcium 8.4 L (8.7-10.3) mg/dL Microbiology - Last 24 Hours (Table) 07/15/23 17:00 Gram Stain - Final Foot - Left Wound Culture - Final Pseudomonas aeruginosa Methicillin resist S. aureus 07/15/23 17:00 Anaerobic Culture - Preliminary Foot - Left Assessment and Plan (1) Left leg cellulitis Current Visit: Yes Status: Acute Code(s): L03.116 - CELLULITIS OF LEFT LOWER LIMB SNOMED Code(s): 12892770929095509 (2) Type 2 diabetes mellitus with foot ulcer Current Visit: No Status: Acute Code(s): E11.621 - TYPE 2 DIABETES MELLITUS WITH FOOT ULCER; L97.509 - NON-PRESSURE CHRONIC ULCER OTH PRT UNSP FOOT W UNSP SEVERITY SNOMED Code(s): 680708227 (3) MRSA (methicillin resistant staph aureus) culture positive Current Visit: Yes Status: Acute Code(s): Z22.322 - CARRIER OR SUSPECTED CARRIER OF METHICILLIN RESIS STAPH SNOMED Code(s): 604364728 Plan: 1patient presented hospital with increasing shortness of breath and [id number] this patient with a recent diagnosis of influenza A for which he has completed 5-day course of Tamiflu chest x-ray mostly CHF pulmonary is following the patient. 2patient with left diabetic foot wound with significant changes on the x-ray and concerning for cellulitis to left lower extremity. 3patient sed rate is 26 bone scan shows abnormality to the left big toe however the patient do not have any redness wound to the right big toe question related to underlying arthritis not behaving as osteomyelitis 4patient local cultures are growing present MRSA and Pseudomonas patient to continue with vancomycin and cefepime however plan to finish therapy with oral Cipro and doxycycline clinical not behaving as osteomyelitis Dictation was produced using [employer] dictation software. please excuse any grammatical, word or spelling errors. Time with Patient: Less than 30
[2023-07-19 20:16] LABS: Glucose,Whole Blood 225 mg/dL (70-110)
[2023-07-20 05:57] LABS: Glucose,Whole Blood 166 mg/dL (70-110)
[2023-07-20 06:35] LABS: African American GFR (CKD) 77 (>60 ml/min/1.73 sqM); Anion Gap 7 mmol/L; Blood Urea Nitrogen 38 mg/dL (9-20); Calcium 8.2 mg/dL (8.4-10.2); Carbon Dioxide 26 mmol/L (22-30); Chloride 104 mmol/L (98-107); Glucose 165 mg/dL (74-99); Magnesium 1.6 mg/dL (1.6-2.3); Non-African American GFR(CKD) 67 (>60 ml/min/1.73 sqM); Potassium 4.2 mmol/L (3.5-5.1); Sodium 137 mmol/L (137-145)
[2023-07-20 08:28] LABS: HCT 29.7 % (39.6-50.0); HGB 9.7 g/dL (13.0-17.0); MCH 29.3 pg (27.0-32.0); MCHC 32.7 g/dL (32.0-37.0); MCV 89.7 FL (80.0-97.0); Mean Platelet Volume 11.2 FL (9.5-12.2); NRBC Per 100 WBC 0 X 10*3/uL (0.00-0.01); Platelet Count 227 X 10*3/uL (140-440); RBC 3.31 X 10*6/uL (4.40-5.60); RDW 13.7 % (11.5-14.5); WBC 11.96 X 10*3/uL (4.50-10.00)
[2023-07-20 09:16] LABS: Basophils # (M) 0 X 10*3/uL (0.00-0.10); Neutrophils % (M) 72 %
[2023-07-20] MEDS ORDERED: Magnesium Replacement Protocol 1 EACH MISC MISCELLANE PRN (09:46)
[2023-07-20 09:55] LABS: Eosinophils # (M) 0.12 X 10*3/uL (0.04-0.35); Lymphocytes # (M) 2.15 X 10*3/uL (0.90-5.00); Microcytosis (M) 2+; Monocytes # (M) 0.84 X 10*3/uL (0.20-1.00); Myelocytes % 2 % (0-0); Neutrophils # (M) 8.61 X 10*3/uL (1.80-7.70)
[2023-07-20] MEDS: MAGNESIUM SULFATE-D5W PMX 1 GM in DEXTROSE/WATER 1 100ML.BAG IVPB SCH (11:12)
[2023-07-20 11:48] LABS: Glucose,Whole Blood 143 mg/dL (70-110)
[2023-07-20] MEDS: ACETAMINOPHEN TAB 325 MG TAB PO PRN (13:24)
--- NOTE | 2023-07-20 15:00 | P.PN ---
Subjective Progress Note Date: 07/20/23 I am seeing this patient in new consultation today 07/15/2023 after he presented with several days of flulike symptoms. Patient is a 53-year-old white male with past medical history significant for diabetes mellitus, chronic kidney disease, chronic lower extremity wounds which he follows at the wound care center, Charcot foot, hypertension, hyperlipidemia, obstructive sleep apnea with home CPAP, morbid obesity, chronic hypoxemic respiratory failure, factor V [place], DVTs in the left leg, among other medical comorbidities. Patient returns to the emergency room yesterday evening complaining of 1 week of runny nose, sore throat, nonproductive cough, chest congestion, and progressively worsening shanelle rtness of breath. No noted fevers. No chest pain. His had tested positive for influenza A last Wednesday or . She was treated with Tamiflu. He also received a 5-day course of Tamiflu because he was symptomatic at that time. He has completed his course of Tamiflu. The main reason for him coming into the emergency room was his breathing. Of note, he also has a chronic left foot wound that is draining a purulent yellow discharge. He did have an appointment to become reestablished with the wound care clinic, but was unable to make it due to transportation issues and his sickness. Patient is currently sitting up in the bedside recliner, on 2 L/min nasal cannula, in no acute distress. He does wear 2 L of home oxygen. He also has a home trilogy machine that he wears at night. Unfortunately, this is not at the bedside. Chest x-ray on arrival showed cardiomegaly with mild pulmonary vascular congestion and increased interstitial edema or pneumonitis. Patient does take Lasix on an outpatient basis daily. He has not missed any doses. As far as the patient's left foot and x-ray was done which showed general soft tissue prominence throughout the foot. There was severe osseous demineralization and diffuse degenerative changes limiting assessment. There was osteomyelitis involving the second through fifth metatarsals possible. Changes in the great toe proximal phalanx could be chronic sequela of osteomyelitis. Patient was placed on antibiotics including Unasyn and vancomycin in the emergency room. Infectious disease consult was placed. CBC on arrival: WC count 4.7, hemoglobin 9.6, hematocrit 28.7, platelets 159. BMP on arrival: Sodium 138, potassium 4.2, chloride 100, serum bicarb 29, BUN 47, creatinine 1.36, glucose 252. Lactic acid level 2.2 and down to 1.5. Troponin less than 0.012. NT proBNP low. Influenza A positive on arrival. Negative for influenza B, RSV, COVID. Patient is currently afebrile. Vital signs are stable. On today's evaluation of 07/16/2023, the patient is being seen for a follow-up. Patient is doing well. No specific complaints. He is on 2 L of oxygen by nasal cannula with a pulse ox of 96%. The patient the patient denies having any specific respiratory complaints. Same time, the patient is being monitored for possible left foot osteomyelitis. Ultrasound the left lower extremity was done and the patient was found to have peripheral vascular disease of the lower extremities bilaterally and the patient is going to undergo a bone scan, a triple phase bone scan regarding possible osteomyelitis. ID is on the case and blood cultures were sent and the patient remains on a combination of Unasyn and vancomycin. The patient remains on Solu-Medrol 60 mg every 6 hours. This can obviously be tapered off. BUN is at 37 with a creatinine of 1.4 and sodium levels at 136. White cell count of 9.8 with a hemoglobin of 9 and a platelet count of 197. On today's evaluation on 07/17/2023, patient is being seen for a follow-up. Doing well. No specific complaints. Resting comfortably in bed. No respiratory event. Or difficulties and the patient says she remains on the same medication. White cell count is at 12.4, hemoglobin is at 8.8 and a platelet count of 218. BUN is at 42 with a creatinine 1.25 and his sodium levels at 137. On today's evaluation of 07/18/2023, the patient is doing well. No specific complaints. No respite distress. Currently completing a prednisone burst taper starting with 30 mg. Labs are all stable. White cell count of 8 with a hemoglobin 15.2. BUN is at 28 with a creatinine of 0.4 and sodium levels at 139. Potassium is at 4.5. The patient has no specific complaints. The patient remains on oxygen 2 L/min nasal cannula. Resting comfortably on a chair. No respiratory distress at this point in time. Limited cough and congestion is still present. Antibiotics regarding osteomyelitis include IV Zosyn. The patient was found to have Pseudomonas and presumptive MRSA ID is on the case The patient is seen today July 19, 2023 in follow-up on the regular medical floor. He is currently sitting up in a chair at the bedside. Awake and alert in no acute distress. He is maintaining O2 saturations in the 90s on 2 L/min per nasal cannula. He has completed a course of Tamiflu. His left foot wound is positive for Pseudomonas and MRSA. Bone scan revealed cellulitis with findings suggestive of osteomyelitis in the proximal phalanx first digit. He remains on vancomycin and cefepime. White count 10.1. Hemoglobin 9.2. Platelets 205. Sodium 139. Potassium 4.7. Bicarb 26. BUN 36. Creatinine 1.4. Glucose 158. Anticoagulated with Eliquis. Remains on prednisone taper. Continued on diuretics. The patient is seen today July 20, 2023 in follow-up on the regular medical floor. He is awake and alert in no acute distress. Sitting up in a chair at the bedside. Follow-up chest x-ray revealed moderate areas of platelike atelectasis. He is maintaining good O2 saturations in the mid 90s on room air. He is afebrile. Hemodynamically stable. He remains on vancomycin and cefepime per ID services. Anticoagulated with Eliquis. White count 11.9. Hemoglobin 9.7. Platelets 227. Sodium 137. Potassium 4.2. Bicarb 26. BUN 38. Creatinine 1.23. Glucose 165. Objective - Vital Signs Vital signs: Vital Signs Temp 98.2 F 07/20/23 13:31 Pulse 76 07/20/23 13:31 Resp 20 07/20/23 13:31 BP 122/68 07/20/23 13:31 Pulse Ox 94 L 07/20/23 13:31 FiO2 Intake & Output 07/19/23 07/20/23 07/20/23 18:59 06:59 18:59 Intake Total 550 400 Balance 550 400 Intake: Oral 550 400 Other: Voiding Method Toilet Toilet Toilet Urinal Urinal Urinal # Voids 5 2 2 # Bowel Movements 1 1 - Exam GENERAL EXAM: Alert, 53-year-old morbidly obese male, on room air, in no apparent distress. HEAD: Normocephalic and atraumatic EYES: Normal reaction of pupils, equal size. NOSE: Clear with pink turbinates. THROAT: No erythema or exudates. NECK: No masses, no JVD. CHEST: No chest wall deformity. LUNGS: Equal air entry with scattered rhonchi, wheezing, and crackles. No conversational dyspnea or accessory muscle use. CVS: S1 and S2 normal with no audible murmur, regular rhythm. No extra heart sounds ABDOMEN: Obese abdomen, no hepatosplenomegaly, active bowel sounds, no guarding or rigidity. SPINE: No scoliosis or deformity SKIN: No rashes CENTRAL NERVOUS SYSTEM: No focal deficits, tone is normal in all 4 extremities. EXTREMITIES: Significant lower extremity swelling with chronic venous stasis changes. Charcot foot deformity bilaterally. Ulceration on the ventral side of the left foot, draining a yellow purulent fluid. Erythemic and edematous. Peripheral pulses are intact. - Labs CBC & Chem 7: 07/20/23 05:10 07/20/23 05:10 Labs: Abnormal Lab Results - Last 24 Hours (Table) 07/19/23 07/19/23 07/20/23 Range/Units 16:53 20:14 05:10 WBC (4.50-10.00) X 10*3/uL RBC (4.40-5.60) X 10*6/uL Hgb (13.0-17.0) g/dL Hct (39.6-50.0) % Microcytosis (manual) BUN 38 H (9-20) mg/dL Glucose 165 H (74-99) mg/dL POC Glucose (mg/dL) 233 H 225 H (70-110) mg/dL Calcium 8.2 L (8.4-10.2) mg/dL 07/20/23 07/20/23 07/20/23 Range/Units 05:10 05:56 11:47 WBC 11.96 H (4.50-10.00) X 10*3/uL RBC 3.31 L (4.40-5.60) X 10*6/uL Hgb 9.7 L (13.0-17.0) g/dL Hct 29.7 L (39.6-50.0) % Microcytosis (manual) 2+ A BUN (9-20) mg/dL Glucose (74-99) mg/dL POC Glucose (mg/dL) 166 H 143 H (70-110) mg/dL Calcium (8.4-10.2) mg/dL Microbiology - Last 24 Hours (Table) 07/15/23 17:00 Anaerobic Culture - Final Foot - Left 07/14/23 19:00 Blood Culture - Final Blood Assessment and Plan Assessment: Acute influenza A infection/bronchitis, no obvious superimposed pneumonia on chest x-ray, already completed Tamiflu Acute on chronic dyspnea, secondary to above, improved significantly Chronic diastolic congestive heart failure, chest x-ray shows cardiomegaly with mild vascular congestion and mild interstitial edema Chronic hypoxemic respiratory failure, maintained on 2 L/min nasal cannula Osteomyelitis of the left foot, and left phalanx based on the bone scan Diabetes mellitus, type II, insulin-dependent Chronic left lower extremity diabetic foot ulcer Charcot foot, bilaterally Chronic bilateral lower extremity edema and venous stasis Morbid obesity, with a BMI of 43.6 kg/m Obstructive sleep apnea, with home trilogy vent History of factor V deficiency History of DVT, anticoagulated on Eliquis History of hypertension History of hyperlipidemia History of GERD Chronic kidney disease stage III Anemia of chronic disease Plan: The patient was seen and evaluated Labs and medications reviewed Stable and on room air Home once antibiotics determined by ID services I have personally seen and examined the patient, performed the documentation and the assessment and plan as written. Number of minutes spent on the visit: 10.
--- NOTE | 2023-07-20 15:27 | P.PN ---
Subjective Progress Note Date: 07/20/23 Patient is a 53-year-old male who was admitted with COPD exacerbation along with acute influenza A infection. Patient continues to report shortness of breath and is currently maintained on oxygen. Patient reports he chronically wears oxygen outpatient. Patient also being followed by infectious disease along with pulmonary and maintained on antibiotics for left lower extremity cellulitis. Culture showing MRSA with Pseudomonas and is being transition to vancomycin. Apparently Dr. Coleman is consulted and will evaluate the patient on 07/20/2023. 07/20/2023 Patient is seen and evaluated in follow-up today being followed by pulmonary along with infectious disease. Patient is scheduled to be seen by Dr. Coleman podiatry sometime today. Patient currently maintained on IV antibiotics and w ill transition to oral Cipro and doxycycline on discharge as per ID recommendations this is not behaving as osteo and will continue with podiatry follow-up outpatient. Patient also maintained on Tamiflu along with breathing treatments and pulmonary following. Encouraged to increase activity as raj erated and will follow-up with pulmonary regarding discharge planning in the next 24 hours. Patient is afebrile with no reports of chest pain or palpitations. Patient continues to report shortness of breath with cough although no worse. Patient denies any nausea or vomiting and has been toleratin g diet. Review of systems: Constitutional: No reports of fatigue, fever, or chills Cardiovascular: No reports of chest pain or palpitations Respiratory: reports of continued shortness of breath with cough GI: No reports of nausea, no reports of vomiting, no reports of diarrhea : No reports of dysuria or retention Neurovascular: reports of generalized weakness, reports continued left lower ex tremity pain and swelling All medications have been reviewed PHYSICAL EXAMINATION: GENERAL: The patient is alert and oriented x4, awake, well developed, well nourished. Morbidly obese, appears older than stated age HEENT: Pupils are round and equally reacting to light. EOMI. no scleral icterus. No conjunctival pallor. Normocephalic, atraumatic. No pharyngeal erythema. No thyromegaly. CARDIOVASCULAR: S1 and S2 muffled PULMONARY: diminished breath sounds bilaterally with some expiratory wheezing and rhonchi noted. ABDOMEN: soft. Nontender on exam. obese. non-distended, normoactive bowel sounds. No palpable organomegaly. MUSCULOSKELETAL: No joint swelling or deformity. EXTREMITIES: No cyanosis, clubbing, or pedal edema. Bilateral lower extremity swelling although left lower extremity swelling significantly worse with redness noted, currently Speedy wrapped NEUROLOGICAL: Gross neurological examination did not reveal any focal deficits. Diffuse weakness SKIN: No rashes. Assessment: Chronic obstructive pulmonary disease acute exacerbation with acute purulent tracheobronchitis Acute on chronic hypoxic respiratory failure secondary to above Acute influenza A Acute left leg cellulitis, present on admission with concerns of osteomyelitis, per ID not behaving as osteomyelitis History of diabetes mellitus, type II, insulin-dependent, uncontrolled with hyper and hypoglycemia History of anxiety/depression Peripheral vascular disease history History of diabetic ulcers History of Charcot feet History of DVT History of sleep apnea uses a BiPAP at night Morbid obesity with a BMI of 43.6 GI prophylaxis DVT prophylaxis Full code Plan: Recommend to continue with current medications and management with multiple consultations following. Pulmonary following for acute COPD exacerbation continued on IV steroids along with DuoNeb treatments Infectious disease following for lower extremity cellulitis along with vascular surgery. Patient underwent bone scan which reported osteomyelitis of the proximal phalanx of the first digit along with cellulitis. Dr. Coleman podiatry has evaluated the patient this morning recommending continuing with antibiotics and transition to oral antibiotics and outpatient follow-up at the clinic Continue to elevate lower extremities while at rest and continue using Speedy wrap's along with wound care instructions per ID Due to multiple complex medical issues, prognosis is guarded Will plan for discharge in the next 24 hours The impression and plan of care has been dictated by Opal Soliman, nurse practitioner as directed. Dr. Lee LARSON I have performed a history and examination and MDM of this patient, discussed the same with the dictator, and agree with the dictator's assessment and plan as written ,documented as a scribe. Based on total visit time, I have performed more than 50% of the visit. Any additional findings or plans will be noted. Objective - Vital Signs Vital signs: Vital Signs Temp 98.2 F 07/20/23 13:31 Pulse 76 07/20/23 13:31 Resp 20 07/20/23 13:31 BP 122/68 07/20/23 13:31 Pulse Ox 94 L 07/20/23 13:31 FiO2 Intake & Output 07/19/23 07/20/23 07/20/23 18:59 06:59 18:59 Intake Total 550 400 Balance 550 400 Intake: Oral 550 400 Other: Voiding Method Toilet Toilet Toilet Urinal Urinal Urinal # Voids 5 2 2 # Bowel Movements 1 1 - Labs CBC & Chem 7: 07/20/23 05:10 07/20/23 05:10 Labs: Abnormal Lab Results - Last 24 Hours (Table) 07/19/23 07/19/23 07/20/23 Range/Units 16:53 20:14 05:10 WBC (4.50-10.00) X 10*3/uL RBC (4.40-5.60) X 10*6/uL Hgb (13.0-17.0) g/dL Hct (39.6-50.0) % Neutrophils # (Manual) (1.80-7.70) X 10*3/uL Microcytosis (manual) BUN 38 H (9-20) mg/dL Glucose 165 H (74-99) mg/dL POC Glucose (mg/dL) 233 H 225 H (70-110) mg/dL Calcium 8.2 L (8.4-10.2) mg/dL 07/20/23 07/20/23 07/20/23 Range/Units 05:10 05:56 11:47 WBC 11.96 H (4.50-10.00) X 10*3/uL RBC 3.31 L (4.40-5.60) X 10*6/uL Hgb 9.7 L (13.0-17.0) g/dL Hct 29.7 L (39.6-50.0) % Neutrophils # (Manual) 8.61 H (1.80-7.70) X 10*3/uL Microcytosis (manual) 2+ A BUN (9-20) mg/dL Glucose (74-99) mg/dL POC Glucose (mg/dL) 166 H 143 H (70-110) mg/dL Calcium (8.4-10.2) mg/dL Microbiology - Last 24 Hours (Table) 07/15/23 17:00 Anaerobic Culture - Final Foot - Left 07/14/23 19:00 Blood Culture - Final Blood
--- NOTE | 2023-07-20 15:28 | P.PN ---
Subjective Progress Note Date: 07/20/23 Principal diagnosis: Reason for follow-up is left foot wound and left lower extremity cellulitis Patient is a 53-year-old male with a past medical history significant for diabetes mellitus hypertension hyperlipidemia DVT did have a history of diabetic foot infection and osteomyelitis presenting to [facility] ER for evaluation of cough, patient recently treated for influenza before presentation to the hospital also noted to have increasing swelling redness to left lower extremity with a wound to the left foot. On today's evaluation that is 07/20/2023,the patient remains to be afebrile, patient is on 3 L nasal cannula supplemental oxygen and denies any shortness of breath no chest pain cough is decreased in intensity.Patient denies having any nausea or vomiting, no abdominal pain and no diarrhea, denies pain to the left lower extremity or any drainage. Patient white count is 11.96 creatinine is 1.23 Objective - Vital Signs Vital signs: Vital Signs Temp 98.0 F 07/20/23 07:47 Pulse 72 07/20/23 12:04 Resp 20 07/20/23 09:14 BP 140/73 07/20/23 07:47 Pulse Ox 96 07/20/23 07:47 FiO2 Intake & Output 07/19/23 07/20/23 07/20/23 18:59 06:59 18:59 Intake Total 550 200 Balance 550 200 Intake: Oral 550 200 Other: Voiding Method Toilet Toilet Toilet Urinal Urinal Urinal # Voids 5 2 2 # Bowel Movements 1 1 - Exam GENERAL DESCRIPTION: Middle-age male lying in bed in no distress RESPIRATORY SYSTEM: Unlabored breathing , decreased breath sounds at bases HEART: S1 S2 regular rate and rhythm , ABDOMEN: Soft , no tenderness EXTREMITIES: Left lower extremity currently covered with Speedy wrap patient did not have any wound swelling or redness to the right big toe - Labs CBC & Chem 7: 07/20/23 05:10 07/20/23 05:10 Labs: Abnormal Lab Results - Last 24 Hours (Table) 07/19/23 07/19/23 07/20/23 Range/Units 16:53 20:14 05:10 WBC (4.50-10.00) X 10*3/uL RBC (4.40-5.60) X 10*6/uL Hgb (13.0-17.0) g/dL Hct (39.6-50.0) % Microcytosis (manual) BUN 38 H (9-20) mg/dL Glucose 165 H (74-99) mg/dL POC Glucose (mg/dL) 233 H 225 H (70-110) mg/dL Calcium 8.2 L (8.4-10.2) mg/dL 07/20/23 07/20/23 07/20/23 Range/Units 05:10 05:56 11:47 WBC 11.96 H (4.50-10.00) X 10*3/uL RBC 3.31 L (4.40-5.60) X 10*6/uL Hgb 9.7 L (13.0-17.0) g/dL Hct 29.7 L (39.6-50.0) % Microcytosis (manual) 2+ A BUN (9-20) mg/dL Glucose (74-99) mg/dL POC Glucose (mg/dL) 166 H 143 H (70-110) mg/dL Calcium (8.4-10.2) mg/dL Microbiology - Last 24 Hours (Table) 07/15/23 17:00 Anaerobic Culture - Final Foot - Left 07/14/23 19:00 Blood Culture - Final Blood 07/15/23 17:00 Gram Stain - Final Foot - Left Wound Culture - Final Pseudomonas aeruginosa Methicillin resist S. aureus Assessment and Plan (1) Left leg cellulitis Current Visit: Yes Status: Acute Code(s): L03.116 - CELLULITIS OF LEFT LOWER LIMB SNOMED Code(s): 27776704062932247 (2) Type 2 diabetes mellitus with foot ulcer Current Visit: No Status: Acute Code(s): E11.621 - TYPE 2 DIABETES MELLITUS WITH FOOT ULCER; L97.509 - NON-PRESSURE CHRONIC ULCER OTH PRT UNSP FOOT W UNSP SEVERITY SNOMED Code(s): 280261151 (3) MRSA (methicillin resistant staph aureus) culture positive Current Visit: Yes Status: Acute Code(s): Z22.322 - CARRIER OR SUSPECTED CARRIER OF METHICILLIN RESIS STAPH SNOMED Code(s): 032649476 Plan: 1patient presented hospital with increasing shortness of breath and [id number] this patient with a recent diagnosis of influenza A for which he has completed 5-day course of Tamiflu chest x-ray mostly CHF pulmonary is following the patient. 2patient with left diabetic foot wound with significant changes on the x-ray and concerning for cellulitis to left lower extremity. 3patient sed rate is 26 bone scan shows abnormality to the left big toe however the patient do not have any redness wound to the right big toe question related to underlying arthritis not behaving as osteomyelitis 4patient local cultures are growing present MRSA and Pseudomonas 5- patient to continue with vancomycin and cefepime however plan to finish therapy with oral Cipro and doxycycline x 10 days on discharge and close outpatient follow-up discussed with the patient who agreed with the plan Dictation was produced using [employer] software. please excuse any grammatical, word or spelling errors. Time with Patient: Less than 30
[2023-07-20 17:16] LABS: Glucose,Whole Blood 214 mg/dL (70-110)
[2023-07-20 20:25] LABS: Glucose,Whole Blood 247 mg/dL (70-110)
[2023-07-21 05:39] LABS: Glucose,Whole Blood 92 mg/dL (70-110)
[2023-07-21 09:37] LABS: African American GFR (CKD) 87 (>60 ml/min/1.73 sqM); Non-African American GFR(CKD) 75 (>60 ml/min/1.73 sqM)
[2023-07-21 09:38] LABS: Magnesium 1.9 mg/dL (1.6-2.3)
[2023-07-21 11:56] LABS: Glucose,Whole Blood 115 mg/dL (70-110)
--- NOTE | 2023-07-21 12:14 | P.PN ---
Subjective Progress Note Date: 07/21/23 I am seeing this patient in new consultation today 07/15/2023 after he presented with several days of flulike symptoms. Patient is a 53-year-old white male with past medical history significant for diabetes mellitus, chronic kidney disease, chronic lower extremity wounds which he follows at the wound care center, Charcot foot, hypertension, hyperlipidemia, obstructive sleep apnea with home CPAP, morbid obesity, chronic hypoxemic respiratory failure, factor V [place], DVTs in the left leg, among other medical comorbidities. Patient returns to the emergency room yesterday evening complaining of 1 week of runny nose, sore throat, nonproductive cough, chest congestion, and progressively worsening shanelle rtness of breath. No noted fevers. No chest pain. His had tested positive for influenza A last Wednesday or . She was treated with Tamiflu. He also received a 5-day course of Tamiflu because he was symptomatic at that time. He has completed his course of Tamiflu. The main reason for him coming into the emergency room was his breathing. Of note, he also has a chronic left foot wound that is draining a purulent yellow discharge. He did have an appointment to become reestablished with the wound care clinic, but was unable to make it due to transportation issues and his sickness. Patient is currently sitting up in the bedside recliner, on 2 L/min nasal cannula, in no acute distress. He does wear 2 L of home oxygen. He also has a home trilogy machine that he wears at night. Unfortunately, this is not at the bedside. Chest x-ray on arrival showed cardiomegaly with mild pulmonary vascular congestion and increased interstitial edema or pneumonitis. Patient does take Lasix on an outpatient basis daily. He has not missed any doses. As far as the patient's left foot and x-ray was done which showed general soft tissue prominence throughout the foot. There was severe osseous demineralization and diffuse degenerative changes limiting assessment. There was osteomyelitis involving the second through fifth metatarsals possible. Changes in the great toe proximal phalanx could be chronic sequela of osteomyelitis. Patient was placed on antibiotics including Unasyn and vancomycin in the emergency room. Infectious disease consult was placed. CBC on arrival: WC count 4.7, hemoglobin 9.6, hematocrit 28.7, platelets 159. BMP on arrival: Sodium 138, potassium 4.2, chloride 100, serum bicarb 29, BUN 47, creatinine 1.36, glucose 252. Lactic acid level 2.2 and down to 1.5. Troponin less than 0.012. NT proBNP low. Influenza A positive on arrival. Negative for influenza B, RSV, COVID. Patient is currently afebrile. Vital signs are stable. On today's evaluation of 07/16/2023, the patient is being seen for a follow-up. Patient is doing well. No specific complaints. He is on 2 L of oxygen by nasal cannula with a pulse ox of 96%. The patient the patient denies having any specific respiratory complaints. Same time, the patient is being monitored for possible left foot osteomyelitis. Ultrasound the left lower extremity was done and the patient was found to have peripheral vascular disease of the lower extremities bilaterally and the patient is going to undergo a bone scan, a triple phase bone scan regarding possible osteomyelitis. ID is on the case and blood cultures were sent and the patient remains on a combination of Unasyn and vancomycin. The patient remains on Solu-Medrol 60 mg every 6 hours. This can obviously be tapered off. BUN is at 37 with a creatinine of 1.4 and sodium levels at 136. White cell count of 9.8 with a hemoglobin of 9 and a platelet count of 197. On today's evaluation on 07/17/2023, patient is being seen for a follow-up. Doing well. No specific complaints. Resting comfortably in bed. No respiratory event. Or difficulties and the patient says she remains on the same medication. White cell count is at 12.4, hemoglobin is at 8.8 and a platelet count of 218. BUN is at 42 with a creatinine 1.25 and his sodium levels at 137. On today's evaluation of 07/18/2023, the patient is doing well. No specific complaints. No respite distress. Currently completing a prednisone burst taper starting with 30 mg. Labs are all stable. White cell count of 8 with a hemoglobin 15.2. BUN is at 28 with a creatinine of 0.4 and sodium levels at 139. Potassium is at 4.5. The patient has no specific complaints. The patient remains on oxygen 2 L/min nasal cannula. Resting comfortably on a chair. No respiratory distress at this point in time. Limited cough and congestion is still present. Antibiotics regarding osteomyelitis include IV Zosyn. The patient was found to have Pseudomonas and presumptive MRSA ID is on the case The patient is seen today July 19, 2023 in follow-up on the regular medical floor. He is currently sitting up in a chair at the bedside. Awake and alert in no acute distress. He is maintaining O2 saturations in the 90s on 2 L/min per nasal cannula. He has completed a course of Tamiflu. His left foot wound is positive for Pseudomonas and MRSA. Bone scan revealed cellulitis with findings suggestive of osteomyelitis in the proximal phalanx first digit. He remains on vancomycin and cefepime. White count 10.1. Hemoglobin 9.2. Platelets 205. Sodium 139. Potassium 4.7. Bicarb 26. BUN 36. Creatinine 1.4. Glucose 158. Anticoagulated with Eliquis. Remains on prednisone taper. Continued on diuretics. The patient is seen today July 20, 2023 in follow-up on the regular medical floor. He is awake and alert in no acute distress. Sitting up in a chair at the bedside. Follow-up chest x-ray revealed moderate areas of platelike atelectasis. He is maintaining good O2 saturations in the mid 90s on room air. He is afebrile. Hemodynamically stable. He remains on vancomycin and cefepime per ID services. Anticoagulated with Eliquis. White count 11.9. Hemoglobin 9.7. Platelets 227. Sodium 137. Potassium 4.2. Bicarb 26. BUN 38. Creatinine 1.23. Glucose 165. The patient is seen today July 21, 2023 in follow-up on the regular medical floor. He is currently sitting up in a chair. Awake and alert in no acute distress. Denies any worsening shortness of breath, cough or congestion. No fever or chills. Maintaining O2 saturations up to 99% on 2 L/min per nasal cannula. Remains on bronchodilators. Continued on vancomycin and cefepime. Remains on oral diuretics. Remains anticoagulated with Eliquis. Creatinine 1.12. Glucose 115. Magnesium 1.9. Objective - Vital Signs Vital signs: Vital Signs Temp 97.9 F 07/21/23 07:50 Pulse 71 07/21/23 12:01 Resp 20 07/21/23 07:50 BP 129/74 07/21/23 07:50 Pulse Ox 99 07/21/23 08:44 FiO2 Intake & Output 07/20/23 07/21/23 07/21/23 18:59 06:59 18:59 Intake Total 400 100 Balance 400 100 Intake: Oral 400 100 Other: Voiding Method Toilet Toilet Toilet Urinal Urinal Urinal # Voids 2 2 # Bowel Movements 1 - Exam GENERAL EXAM: Alert, 53-year-old morbidly obese male, sitting up in a chair, on 2 L nasal cannula, comfortable, in no apparent distress. HEAD: Normocephalic and atraumatic EYES: Normal reaction of pupils, equal size. NOSE: Clear with pink turbinates. THROAT: No erythema or exudates. NECK: No masses, no JVD. CHEST: No chest wall deformity. LUNGS: Equal air entry with scattered rhonchi, wheezing, and crackles. No conversational dyspnea or accessory muscle use. CVS: S1 and S2 normal with no audible murmur, regular rhythm. No extra heart sounds ABDOMEN: Obese abdomen, no hepatosplenomegaly, active bowel sounds, no guarding or rigidity. SPINE: No scoliosis or deformity SKIN: No rashes CENTRAL NERVOUS SYSTEM: No focal deficits, tone is normal in all 4 extremities. EXTREMITIES: Significant lower extremity swelling with chronic venous stasis changes. Charcot foot deformity bilaterally. Ulceration on the ventral side of the left foot. Peripheral pulses are intact. - Labs CBC & Chem 7: 07/20/23 05:10 07/21/23 08:41 Labs: Abnormal Lab Results - Last 24 Hours (Table) 07/20/23 07/20/23 07/20/23 Range/Units 05:10 17:14 20:23 Neutrophils # (Manual) 8.61 H (1.80-7.70) X 10*3/uL POC Glucose (mg/dL) 214 H 247 H (70-110) mg/dL 07/21/23 Range/Units 11:51 Neutrophils # (Manual) (1.80-7.70) X 10*3/uL POC Glucose (mg/dL) 115 H (70-110) mg/dL Microbiology - Last 24 Hours (Table) 07/15/23 17:00 Anaerobic Culture - Final Foot - Left Assessment and Plan Assessment: Acute influenza A infection/bronchitis, no obvious superimposed pneumonia on chest x-ray, completed Tamiflu Acute on chronic dyspnea, secondary to above, improved significantly Chronic diastolic congestive heart failure, chest x-ray shows cardiomegaly with mild vascular congestion and mild interstitial edema Chronic hypoxemic respiratory failure, maintained on 2 L/min nasal cannula Osteomyelitis of the left foot, and left phalanx based on the bone scan Diabetes mellitus, type II, insulin-dependent Chronic left lower extremity diabetic foot ulcer Charcot foot, bilaterally Chronic bilateral lower extremity edema and venous stasis Morbid obesity, with a BMI of 43.6 kg/m Obstructive sleep apnea, with home trilogy vent History of factor V deficiency History of DVT, anticoagulated on Eliquis History of hypertension History of hyperlipidemia History of GERD Chronic kidney disease stage III Anemia of chronic disease Plan: The patient was seen and evaluated Labs and medications reviewed Continue Symbicort and albuterol HFA as needed Complete a prednisone taper Cleared for discharge from the pulmonary stand point Transition to oral antibiotics per ID recommendations Plan is for home with home care services This patient was seen independently by the pulmonary nurse practitioner addressing pulmonary issues I have personally seen and examined the patient, performed the documentation and the assessment and plan as written. Number of minutes spent on the visit: 22.
[2023-07-21 14:01] VITALS: BMI 43.5
[2023-07-21 14:40] VITALS: BP 125/70; PULSE 79; RESP 17; TEMP 98.8
--- NOTE | 2023-07-21 15:17 | P.DS ---
Providers Date of admission: 07/14/23 22:38 Expected date of discharge: 07/21/23 Attending physician: Ayo Lizama Consults: 07/14/23 22:38 Consult Physician Routine Consulting Provider: Rosy Veras Consult Reason/Comments: dyspnea Do you want consulting provider notified?: Yes Consult Physician Routine Consulting Provider: Kalina Lang Consult Reason/Comments: cellulitis Do you want consulting provider notified?: Yes 07/16/23 12:04 Consult Physician Routine Consulting Provider: Ayo Coleman Consult Reason/Comments: left foot wound, possible osteo Do you want consulting provider notified?: Yes Primary care physician: Ayo Lizama Hospital Course: Final diagnosis Chronic obstructive pulmonary disease acute exacerbation with acute purulent tracheobronchitis Acute on chronic hypoxic respiratory failure secondary to above Acute influenza A Acute left leg cellulitis, present on admission with concerns of osteomyelitis, per ID not behaving as osteomyelitis, osteomyelitis ruled out History of diabetes mellitus, type II, insulin-dependent, uncontrolled with hyper and hypoglycemia History of anxiety/depression Peripheral vascular disease history History of diabetic ulcers History of Charcot feet History of DVT History of sleep apnea uses a CPAP at night Morbid obesity with a BMI of 43.6 GI prophylaxis DVT prophylaxis Full code Discharge disposition Patient is being discharged in a stable condition with guarded prognosis to home with home care. Patient will follow-up with Dr. Lizama in the outpatient setting upon discharge. Patient is to continue with oral doxycycline and Cipro for the next 10 days per ID recommendations and close outpatient follow-up with the wound center as well as vascular surgery. Patient will also be evaluated by Dr. Coleman outpatient as scheduled. Total time taken is greater than 35 minutes. Hospital course This is a 53-year-old male who was recently admitted with increasing shortness of breath with acute COPD exacerbation with acute purulent tracheobronchitis being closely monitored. Patient was also found to be acute influenza A positive and requiring more oxygen. Patient chronically wears oxygen outpatient is noncompliant with CPAP and has been counseled extensively per nursing staff. Patient is found multiple times without oxygen on during exam. Patient was evaluated by podiatry Dr. Coleman recommending outpatient follow-up with the wound center as previously scheduled and will continue on antibiotics. Patient per ID recommendations not behaving as osteomyelitis and will continue on doxycycline along with Cipro for the next 10 days to complete the course. Patient will follow-up outpatient along with vascular surgery. Patient has been cleared by consultations for discharge home. Please refer to consultation notes for further HPI. Currently no reports of chest pain, shortness of breath, or palpitations. Patient is afebrile. No reports of nausea or vomiting and patient is tolerating diet. Patient will be discharged home today. Guarded prognosis and high risk for readmissions given patient's significant comorbidities Physical exam: Gen: This is a 53-year-old male who is awake, alert and oriented x 2-3, well- developed, well-nourished, morbidly obese HEENT: Head is atraumatic, normocephalic. Pupils equal, round. Sclerae is anicteric. NECK: Supple. No JVD. No lymphadenopathy. No thyromegaly. LUNGS: Diminished breath sounds bilaterally otherwise clear to auscultation. No wheezes, there is coarse scattered rhonchi noted on exam. No intercostal retractions. HEART: Regular rate and rhythm. No murmur. ABDOMEN: Soft. Obese bowel sounds are present. No masses. No tenderness. EXTREMITIES: No pedal edema. No calf tenderness. Charcot feet noted NEUROLOGICAL: Patient is awake, alert and oriented x3. Cranial nerves 2 through 12 are grossly intact. Please refer to medication reconciliation sheet for a list of medications. The impression and plan of care has been dictated by Opal Soliman, Nurse Practitioner as directed. Dr. Lee MD I have performed a history and examination and MDM of this patient, discussed the same with the dictator, and agree with the dictator's assessment and plan as written ,documented as a scribe. Based on total visit time, I have performed more than 50% of the visit. Patient Condition at Discharge: Fair Plan - Discharge Summary Discharge Rx Participant: No New Discharge Prescriptions: New Acetaminophen Tab [Tylenol] 650 mg PO Q6HR PRN tab PRN Reason: Mild Pain Or Fever > 100.5 Ciprofloxacin HCl [Cipro] 500 mg PO Q12HR 10 Days #20 tab Doxycycline [Vibramycin] 100 mg PO BID 10 Days #20 capsule predniSONE 10 mg PO DIRECTED #30 tab guaiFENesin-DM 100-10MG/5ML [Robitussin DM] 10 ml PO Q6HR PRN #120 ml PRN Reason: Cough Budesonide-Formot 160-4.5 Mcg [Symbicort 160-4.5 Mcg Inhaler] 2 puff I NHALATION BID #10.2 gm Albuterol Inhaler [Ventolin Hfa Inhaler] 2 puff INHALATION Q6H PRN 30 Days #1 each PRN Reason: Shortness Of Breath Continue Latanoprost Ophth [Xalatan 0.005%] 1 drop BOTH EYES HS Atorvastatin [Lipitor] 80 mg PO DAILY Insulin Glargine,Hum.rec.anlog [Lantus Solostar Pen] 52 units SQ HS Potassium Chloride ER [K-Dur 10] 10 meq PO DAILY Dicyclomine [Bentyl] 20 mg PO BID Furosemide [Lasix] 40 mg PO DAILY Ammonium Lactate Lotion [Lac-Hydrin 12% Lotion] 1 applic TOPICAL DAILY Dextroamphetamine/Amphetamine [Adderall Xr 20 mg Capsule] 20 mg PO DAILY Cholecalciferol [Vitamin D3 (25 Mcg = 1000 Iu)] 25 mcg PO DAILY Ferrous Sulfate [Iron (65 MG Elemental)] 325 mg PO BID Omeprazole 20 mg PO AC-BRKT metFORMIN HCL 1,000 mg PO BID Magnesium Oxide [Mag-Ox] 400 mg PO DAILY tab Apixaban [Eliquis] 5 mg PO BID #1 tab lisinopriL [Zestril] 2.5 mg PO DAILY Ergocalciferol [Vitamin D2 (1250 Mcg = 89376 Iu)] 1,250 mcg PO QMONTHLY Insulin Lispro [humaLOG Kwikpen] 16 unit SQ TID-W/MEALS Cyclobenzaprine [Flexeril] 10 mg PO BID tadalafiL 5 mg PO DAILY Metoclopramide [Reglan] 10 mg PO TID PRN PRN Reason: Nausea And Vomiting Patient Own Pump 0 bag Changed HYDROcodone/APAP 10-325MG [Berne 10-325] 0.5 tab PO BID #0 Discharge Medication List Latanoprost Ophth [Xalatan 0.005%] 1 drop BOTH EYES HS 01/23/14 [History] Ferrous Sulfate [Iron (65 MG Elemental)] 325 mg PO BID 10/25/20 [History] Omeprazole 20 mg PO AC-BRKFST 11/10/21 [History] Atorvastatin [Lipitor] 80 mg PO DAILY 06/03/22 [History] metFORMIN HCL 1,000 mg PO BID 06/03/22 [History] Apixaban [Eliquis] 5 mg PO BID #1 tab 08/26/22 [Rx] Magnesium Oxide [Mag-Ox] 400 mg PO DAILY tab 08/26/22 [Rx] Insulin Glargine,Hum.rec.anlog [Lantus Solostar Pen] 52 units SQ HS 12/11/22 [History] Potassium Chloride ER [K-Dur 10] 10 meq PO DAILY 12/11/22 [History] lisinopriL [Zestril] 2.5 mg PO DAILY 12/11/22 [History] Dicyclomine [Bentyl] 20 mg PO BID 04/09/23 [History] Ergocalciferol [Vitamin D2 (1250 Mcg = 09849 Iu)] 1,250 mcg PO QMONTHLY 04/09/23 [History] Furosemide [Lasix] 40 mg PO DAILY 04/09/23 [History] Ammonium Lactate Lotion [Lac-Hydrin 12% Lotion] 1 applic TOPICAL DAILY 07/14/23 [History] Cholecalciferol [Vitamin D3 (25 Mcg = 1000 Iu)] 25 mcg PO DAILY 07/14/23 [Histor y] Cyclobenzaprine [Flexeril] 10 mg PO BID 07/14/23 [History] Dextroamphetamine/Amphetamine [Adderall Xr 20 mg Capsule] 20 mg PO DAILY 07/14/23 [History] Insulin Lispro [humaLOG Kwikpen] 16 unit SQ TID-W/MEALS 07/14/23 [History] Metoclopramide [Reglan] 10 mg PO TID PRN 07/14/23 [History] Patient Own Pump 0 bag 07/14/23 [History] tadalafiL 5 mg PO DAILY 07/14/23 [History] Acetaminophen Tab [Tylenol] 650 mg PO Q6HR PRN tab 07/21/23 [Rx] Albuterol Inhaler [Ventolin Hfa Inhaler] 2 puff INHALATION Q6H PRN 30 Days #1 each 07/21/23 [Rx] Budesonide-Formot 160-4.5 Mcg [Symbicort 160-4.5 Mcg Inhaler] 2 puff INHALATION BID #10.2 gm 07/21/23 [Rx] Ciprofloxacin HCl [Cipro] 500 mg PO Q12HR 10 Days #20 tab 07/21/23 [Rx] Doxycycline [Vibramycin] 100 mg PO BID 10 Days #20 capsule 07/21/23 [Rx] HYDROcodone/APAP 10-325MG [Berne 10-325] 0.5 tab PO BID #0 07/21/23 [Rx] guaiFENesin-DM 100-10MG/5ML [Robitussin DM] 10 ml PO Q6HR PRN #120 ml 07/21/23 [Rx] predniSONE 10 mg PO DIRECTED #30 tab 07/21/23 [Rx] Follow up Appointment(s)/Referral(s): Ayo Lizama DO [Primary Care Provider] - 1-2 days (Not a patient Please follow up with Primary Care Physcian) Prince Flores DO [STAFF PHYSICIAN] - 08/17/23 2:30 pm [facility], [NON[facility]STAFF] - [facility] [NON-STAFF] - 07/23/23 8:00 am Patient Instructions/Handouts: Influenza (DC) Activity/Diet/Wound Care/Special Instructions: Activity limited until follow-up Follow-up with primary care provider on discharge Follow-up with podiatry outpatient Follow-up with the wound center Continue taking medications as prescribed Continue using CPAP machine Discharge Disposition: HOME WITH HOME HEALTH SERVICES
[2023-07-21] MEDS ORDERED: CEFEPIME 2 GM in SODIUM CHLORIDE 0.9% 100 ML IVPB SCH (16:00)
--- NOTE | 2023-07-22 13:20 | P.PN ---
Subjective Progress Note Date: 07/21/23 Principal diagnosis: Reason for follow-up is left foot wound and left lower extremity cellulitis Patient is a 53-year-old male with a past medical history significant for diabetes mellitus hypertension hyperlipidemia DVT did have a history of diabetic foot infection and osteomyelitis presenting to [facility] ER for evaluation of cough, patient recently treated for influenza before presentation to the hospital also noted to have increasing swelling redness to left lower extremity with a wound to the left foot. On today's evaluation that is 07/21/2023, the patient continues to be afebrile, the patient is on 2 L nasal cannula oxygen and breathing comfortably, the Pt denies having any chest pain or any worsening cough, the patient denies having any abdominal pain no vomiting or any diarrhea, complaining of more pain to the right foot today after manipulation palpation. Patient did have a creatinine 1.12 no CBC was done today Objective - Vital Signs Vital signs: Vital Signs Temp 97.9 F 07/21/23 07:50 Pulse 71 07/21/23 12:12 Resp 20 07/21/23 07:50 BP 129/74 07/21/23 07:50 Pulse Ox 99 07/21/23 08:44 FiO2 Intake & Output 07/20/23 07/21/23 07/21/23 18:59 06:59 18:59 Intake Total 400 100 Balance 400 100 Intake: Oral 400 100 Other: Voiding Method Toilet Toilet Toilet Urinal Urinal Urinal # Voids 2 2 # Bowel Movements 1 - Exam GENERAL DESCRIPTION: Middle-age male lying in bed in no distress RESPIRATORY SYSTEM: Unlabored breathing , decreased breath sounds at bases HEART: S1 S2 regular rate and rhythm , ABDOMEN: Soft , no tenderness EXTREMITIES: Left lower extremity currently covered with Speedy wrap patient did not have any wound swelling or redness to the right big toe - Labs CBC & Chem 7: 07/20/23 05:10 07/21/23 08:41 Labs: Abnormal Lab Results - Last 24 Hours (Table) 07/20/23 07/20/23 07/20/23 Range/Units 05:10 17:14 20:23 Neutrophils # (Manual) 8.61 H (1.80-7.70) X 10*3/uL POC Glucose (mg/dL) 214 H 247 H (70-110) mg/dL 07/21/23 Range/Units 11:51 Neutrophils # (Manual) (1.80-7.70) X 10*3/uL POC Glucose (mg/dL) 115 H (70-110) mg/dL Microbiology - Last 24 Hours (Table) 07/15/23 17:00 Anaerobic Culture - Final Foot - Left Assessment and Plan (1) Left leg cellulitis Status: Acute Code(s): L03.116 - CELLULITIS OF LEFT LOWER LIMB SNOMED Code(s): 41803353179750980 (2) Type 2 diabetes mellitus with foot ulcer Status: Acute Code(s): E11.621 - TYPE 2 DIABETES MELLITUS WITH FOOT ULCER; L97.509 - NON-PRESSURE CHRONIC ULCER OTH PRT UNSP FOOT W UNSP SEVERITY SNOMED Code(s): 149553646 (3) MRSA (methicillin resistant staph aureus) culture positive Status: Acute Code(s): Z22.322 - CARRIER OR SUSPECTED CARRIER OF METHICILLIN RESIS STAPH SNOMED Code(s): 315192728 Plan: 1patient presented hospital with increasing shortness of breath and caovy1in this patient with a recent diagnosis of influenza A for which he has completed 5-day course of Tamiflu chest x-ray mostly CHF pulmonary is following the patient. 2patient with left diabetic foot wound with significant changes on the x-ray and concerning for cellulitis to left lower extremity. 3patient sed rate is 26 bone scan shows abnormality to the left big toe however the patient do not have any redness wound to the right big toe question related to underlying arthritis not behaving as osteomyelitis 4patient local cultures are growing present MRSA and Pseudomonas 5- patient to finish therapy with oral Cipro and doxycycline x 10 days on discharge and close outpatient follow-up, multiple question concern answered Dictation was produced using [employer] software. please excuse any grammatical, word or spelling errors. Time with Patient: Less than 30
[2023-07-29] MEDS ORDERED: ERGOCALCIFEROL 1,250 MCG (50,000 IU) CAPSULE PO SCH (09:00)
== END 2023-07-21 15:49 | disposition home health service (06) | DRG 380 ==
LOC: EC 18:24 → 4SSUR 22:38
PROVIDERS: ADMIT Family Medicine; ATTEND Family Medicine
DX: E11.621 Type 2 diabetes mellitus with foot ulcer (principal); E66.01 Morbid (severe) obesity due to excess calories; E11.622 Type 2 diabetes mellitus with other skin ulcer; E11.610 Type 2 diabetes mellitus with diabetic neuropathic arthropathy; E11.43 Type 2 diabetes mellitus with diabetic autonomic (poly)neuropathy; E11.51 Type 2 diabetes mellitus with diabetic peripheral angiopathy without gangrene; F32.A Depression, unspecified; I13.0 Hypertensive heart and chronic kidney disease with heart failure and stage 1 through stage 4 chronic kidney disease, or unspecified chronic kidney disease; L03.115 Cellulitis of right lower limb; K76.0 Fatty (change of) liver, not elsewhere classified; L03.116 Cellulitis of left lower limb; I50.32 Chronic diastolic (congestive) heart failure; D63.1 Anemia in chronic kidney disease; Z68.41 Body mass index [BMI] 40.0-44.9, adult; E87.20 Acidosis, unspecified; J96.21 Acute and chronic respiratory failure with hypoxia; J44.1 Chronic obstructive pulmonary disease with (acute) exacerbation; E11.649 Type 2 diabetes mellitus with hypoglycemia without coma; E11.628 Type 2 diabetes mellitus with other skin complications; J44.0 Chronic obstructive pulmonary disease with (acute) lower respiratory infection; Z99.81 Dependence on supplemental oxygen; A52.16 Charcot's arthropathy (tabetic); E11.65 Type 2 diabetes mellitus with hyperglycemia; L97.522 Non-pressure chronic ulcer of other part of left foot with fat layer exposed; N18.30 Chronic kidney disease, stage 3 unspecified; E78.5 Hyperlipidemia, unspecified; G89.4 Chronic pain syndrome; H54.8 Legal blindness, as defined in USA; I25.2 Old myocardial infarction; F41.9 Anxiety disorder, unspecified; I87.8 Other specified disorders of veins; G47.33 Obstructive sleep apnea (adult) (pediatric); Z96.41 Presence of insulin pump (external) (internal); J10.1 Influenza due to other identified influenza virus with other respiratory manifestations; Z79.84 Long term (current) use of oral hypoglycemic drugs; Z79.4 Long term (current) use of insulin; Z11.52 Encounter for screening for COVID-19; I87.2 Venous insufficiency (chronic) (peripheral); R13.10 Dysphagia, unspecified; J98.11 Atelectasis; K21.9 Gastro-esophageal reflux disease without esophagitis; K31.84 Gastroparesis; G43.909 Migraine, unspecified, not intractable, without status migrainosus; D68.51 Activated protein C resistance; L30.9 Dermatitis, unspecified; M19.90 Unspecified osteoarthritis, unspecified site; K44.9 Diaphragmatic hernia without obstruction or gangrene; Z79.891 Long term (current) use of opiate analgesic; Z79.899 Other long term (current) drug therapy; Z86.718 Personal history of other venous thrombosis and embolism; Z79.01 Long term (current) use of anticoagulants; Z82.49 Family history of ischemic heart disease and other diseases of the circulatory system; Z83.3 Family history of diabetes mellitus; Z86.16 Personal history of COVID-19; Z91.199 Patient's noncompliance with other medical treatment and regimen due to unspecified reason
CPT/HCPCS: 36415; 71045; 71046; 78315; 80048; 80053; 82565; 83036; 83605; 83735; 83880; 84484; 85025; 85610; 85652; 85730; 86140; 87040; 87070; 87075; 87077; 87186; 87205; 87636; 93005; 93922; 94640; 94760; 96365; 96375; 99285

== ENCOUNTER → 2023-08-18 | Outpatient (CLI) | payer OTHER ==
[2023-08-18 18:41] LABS: Appearance,Urine Clear (Clear); Bilirubin,Urine Negative (Negative); Blood,Urine Negative (Negative); Color,Urine Yellow (Yellow); Ketones,Urine Negative (Negative); Nitrite,Urine Negative (Negative); PH, Urine 7.5; Specific Gravity,Urine 1.011 (1.001-1.030); Urobilinogen,Urine 0.2 E.U./DL
[2023-08-18 19:12] LABS: BUN/Creat Ratio 18.14 Ratio (12.00-20.00); Blood Urea Nitrogen 25.4 mg/dL (9.0-27.0); Calcium 9.3 mg/dL (8.7-10.3); Carbon Dioxide 28.8 mmol/L (21.6-31.8); Chloride 94 mmol/L (96-109); Glucose 223 mg/dL (70-110); Potassium 4.6 mmol/L (3.5-5.5); Sodium 137 mmol/L (135-145)
== END | disposition home or self-care (01) ==
LOC: LABWHC1 15:14
PROVIDERS: ATTEND Internal Medicine
DX: N18.31 Chronic kidney disease, stage 3a (principal)
CPT/HCPCS: 36415; 80048; 81003

== ENCOUNTER → 2023-08-23 | Outpatient (CLI) | payer OTHER ==
--- NOTE | 2023-08-23 23:18 | MR ---
EXAMINATION TYPE: MR foot LT wo/w con DATE OF EXAM: 08/23/2023 COMPARISON: 3 phase bone scan July 16, 2023. Left foot x-ray July 14, 2023 HISTORY: Multiple Lt foot ulcer sites (see both sides of order), Diabetes mellitus CONTRAST: Standard multiplanar, multisequence MRI departmental protocol images were obtained without contrast a nd with 13 mL intravenous Gadavist gadolinium contrast. FINDINGS: Marked diffuse soft tissue prominence is redemonstrated. There is moderate diffuse subcutan eous edema greatest along the plantar surface at the midfoot level. Moderate subcutaneous edema dorsa l midfoot is seen extending laterally. There is moderate subcutaneous edema surrounding the ankle gre atest along the lateral aspect. Pes planus is seen. Severe degenerative change within the hindfoot an d midfoot structures is present. There is soft tissue ulcer along the plantar surface with break through the skin surface and subcutan eous tissue noted coronal image 33 at level of the navicular bone. The first subcutaneous tissue show s edema and enhancement consistent with soft tissue extension extending towards the base of the first metatarsal. For reference coronal image 22 series 1001. No abnormal edema or enhancement in adjacent base of first metatarsal. Some heterogeneous increased T2 signal along the plantar aspect of the brigida icular bone is however seen. Acute osteomyelitis at this level cannot be excluded. Finding best appre ciated STIR series 401 image 10. No well-formed fluid collection or drainable abscess. Marked flexion in the first toe. Additional less prominent flexion in the remainder of toes. First pr oximal phalanx appears deformed with suggestion of enhancement for reference coronal images 8 and 9 s eries 1001 corresponding to recent bone scan. IMPRESSION: 1. Confirmation of ulceration and soft tissue infection plantar surface mid foot level. Acute osteomy elitis involving plantar aspect of the navicular bone cannot be excluded. 2. Redemonstration of suspicion for acute on chronic osteomyelitis involving the first proximal phala nx. 3. Other findings as noted above.
== END | disposition home or self-care (01) ==
LOC: RADMRIMAIN 18:15
PROVIDERS: ATTEND Thoracic Surgery (Cardiothoracic Vascular Surgery)
DX: M86.172 Other acute osteomyelitis, left ankle and foot (principal); E08.621 Diabetes mellitus due to underlying condition with foot ulcer; E08.622 Diabetes mellitus due to underlying condition with other skin ulcer; L97.522 Non-pressure chronic ulcer of other part of left foot with fat layer exposed; L97.222 Non-pressure chronic ulcer of left calf with fat layer exposed; I87.023 Postthrombotic syndrome with inflammation of bilateral lower extremity
CPT/HCPCS: 73720; A9585

== ENCOUNTER → 2023-08-25 | Outpatient (CLI) | payer OTHER ==
[2023-08-25 19:35] LABS: BUN/Creat Ratio 14.39 Ratio (12.00-20.00); Blood Urea Nitrogen 25.9 mg/dL (9.0-27.0); Calcium 9.3 mg/dL (8.7-10.3); Carbon Dioxide 28.1 mmol/L (21.6-31.8); Chloride 91 mmol/L (96-109); Glucose 172 mg/dL (70-110); Potassium 4.3 mmol/L (3.5-5.5); Sodium 136 mmol/L (135-145)
== END | disposition home or self-care (01) ==
LOC: LABWHC1 14:36
PROVIDERS: ATTEND Internal Medicine
DX: N18.31 Chronic kidney disease, stage 3a (principal)
CPT/HCPCS: 36415; 80048

== ENCOUNTER → 2023-12-09 | Outpatient (CLI) | payer OTHER ==
--- NOTE | 2023-12-29 11:32 | XR ---
Site ID [facility] Patient Jose Lynne J ID [id number] 1970 Age/Gender: 53Y, M Order # [id number] Procedure XR thoracic spine 2V Date 12/09/2023 10:24:00 AM Reason 689.4 CHRONIC PAIN SYNDROME EXAMINATION TYPE: XR thoracic spine 2V DATE OF EXAM: 12/29/2023 11:09 AM INDICATION: Patient age:Male; 53 years old; Reason for study: 689.4 CHRONIC PAIN SYNDROME; [facility]. Checking pump placement. COMPARISON: CT thoracolumbar spine 12/09/2023 TECHNIQUE: Frontal view of the thoracic spine was obtained with 2 radiographs. FINDINGS/IMPRESSION: Limited examination due to only frontal view. Hypertrophic vertebral body change s demonstrated. Chronic elevation of the right hemidiaphragm. The spinal lead is better appreciated o n CT of the same day and terminates at the T10-T11 disc level.
--- NOTE | 2024-01-02 09:16 | CT ---
Site ID [facility] Patient Jose Lynne J ID [id number] 1970 Age/Gender: 53Y, M Order # N/A Procedure CT thor lumbar spine wo con Date 12/09/2023 9:49:00 AM EXAMINATION TYPE: CT thor lumbar spine wo con CT DLP: 1368 mGycm, Automated exposure control for dose reduction was used. DATE OF EXAM: 12/15/2023 11:09 AM CLINICAL INDICATION: Male, 53 year old with history of chronic back pain; COMPARISON: CT abdomen and pelvis 08/10/2022, CTA chest 06/29/2022, CT lumbar spine 01/17/2018 TECHNIQUE: Axial images of the thoracic and lumbar spine were obtained without contrast. Coronal and sagittal reformats were performed. CT Contrast: Contrast used: none. Oral contrast used: none. FINDINGS: Thoracic: The thoracic vertebral bodies have preserved heights and alignment. DISH of the mid thoracic spine. I do not see any evidence of thoracic neural foraminal stenosis. Suggested central disc protrusion at C6-C7 with moderate central canal stenosis. No other CT evidence for thoracic central canal stenosis . Additional multilevel posterior disc osteophyte complexes of the visualized cervical spine. This can be further evaluated with CT cervical spine as clinically indicated. Lumbar: Alignment: There are 5 lumbar type vertebral bodies within normal alignment. Bone: No evidence of fracture is identified. Mild degenerative changes of both SI joints with left g reater than right. Multilevel anterior osteophytosis. Discs: T12-L1: Left posterior disc osteophyte without significant effacement of the anterior thecal sac. No significant neuroforaminal stenosis. L1-L2: Broad-based disc bulge with mild effacement of the anterior thecal sac. No significant neural foraminal stenosis. L2-L3: Posterior disc osteophyte complex with moderate central canal stenosis. Bilateral facet arthro jonathan with mild bilateral neuroforaminal stenosis. L3-L4: Posterior disc osteophyte complex with moderate central canal stenosis. Bilateral facet arthro jonathan with mild bilateral neuroforaminal stenosis. L4-L5: Posterior disc osteophyte complex with moderate central canal stenosis. Bilateral facet arthr opathy with mild bilateral neuroforaminal stenosis. L5-S1: Posterior distal aspect complex with minimal central canal stenosis. Bilateral facet arthropat hy with mild bilateral neuroforaminal stenosis. Other: Spinal stimulator lead is identified within the left neck soft tissues and enters the spinal c anal at the L2-L3 level and extends superiorly and terminates at the T11-12 level. Patchy reticular o pacities throughout the lungs likely representing air trapping. Cardiomegaly. Elevation of the right hemidiaphragm. Small hiatal hernia. IMPRESSION: 1. No evidence of fracture of the thoracolumbar spine. 2. Overall similar multilevel degenerative disc disease and facet arthropathy of the lumbar spine as described above. This is again most prominent from L2 through L5 with multilevel posterior disc osteo phyte complexes resulting in moderate central canal stenosis. Further evaluation with MRI is recommen ded. 3. Suggested central disc protrusion at C6-C7 with moderate central canal stenosis. Further evaluatio n with MRI is recommended.
--- NOTE | 2024-01-12 09:15 | XR ---
Patient: Lynne Kenneth Ordering Physician: Unknown, Unknown ID: [id number] Phone, Pager: Calin ne: N/A Pager: N/A : 1970 Age/Gender: 53Y, M Primary Location: N/A Procedure: XR abdomen 2V Study Date: 12/09/2023 10:24:00 AM EXAMINATION TYPE: XR abdomen 2V DATE OF EXAM: 12/19/2023 12:42 PM CLINICAL INDICATION: pump Placement COMPARISON: None. TECHNIQUE: Two views of the abdomen were obtained. FINDINGS: Pump of the left abdomen with leads extending towards the spine. Leads are hard to evaluate given their small caliber. The bowel gas pattern is nonspecific without dilated loops of small or la rge bowel. There is no evidence for organomegaly or pneumoperitoneum. The osseous structures are int act. No abnormal calcifications are present. Fecal material and gas are demonstrated throughout the colon and rectum. IMPRESSION: 1. Pump of the left abdomen with leads extending towards the spine. There is suboptimally evaluated due to their small size and radiography technique. 2. Nonspecific bowel gas pattern without radiographic evidence for acute process.
== END | disposition home or self-care (01) ==
LOC: RADCTMAIN 09:28
PROVIDERS: ATTEND Neurological Surgery
DX: M47.816 Spondylosis without myelopathy or radiculopathy, lumbar region (principal); M48.02 Spinal stenosis, cervical region; M48.061 Spinal stenosis, lumbar region without neurogenic claudication; G89.4 Chronic pain syndrome; M50.223 Other cervical disc displacement at C6-C7 level; M51.36 Other intervertebral disc degeneration, lumbar region; M25.78 Osteophyte, vertebrae
CPT/HCPCS: 72070; 72128; 72131; 74019

== ENCOUNTER 2024-01-02 05:02 | Emergency (ER) | payer SELFPAY ==
[2024-01-02 05:42] LABS: Basophils % (A) 1 %; Eosinophils # (A) 0.3 k/uL (0-0.7); Eosinophils % (A) 3 %; HCT 28.8 % (39.0-53.0); HGB 9.9 gm/dL (13.0-17.5); Lymphocytes # (A) 0.9 k/uL (1.0-4.8); Lymphocytes % (A) 12 %; MCH 29.7 pg (25.0-35.0); MCHC 34.4 g/dL (31.0-37.0); MCV 86.2 fL (80.0-100.0); Monocytes # (A) 0.5 k/uL (0-1.0); Monocytes % (A) 7 %; Neutrophils # (A) 5.5 k/uL (1.3-7.7); Neutrophils % (A) 76 %; Platelet Count 232 k/uL (150-450); RBC 3.34 m/uL (4.30-5.90); RDW 15.1 % (11.5-15.5); WBC 7.2 k/uL (3.8-10.6)
[2024-01-02 05:56] LABS: INR 0.9 (<1.2); Prothrombin Time 9.8 sec (10.0-12.5)
[2024-01-02] MEDS: PANTOPRAZOLE 40 MG/10 ML VIAL IVP STA (05:57)
[2024-01-02 05:58] LABS: ALT 22 U/L (4-49); AST 21 U/L (17-59); African American GFR (CKD) 41 (>60 ml/min/1.73 sqM); Albumin 3.7 g/dL (3.5-5.0); Alkaline Phosphatase 126 U/L (38-126); Anion Gap 7 mmol/L; Blood Urea Nitrogen 47 mg/dL (9-20); Calcium 9.5 mg/dL (8.4-10.2); Carbon Dioxide 31 mmol/L (22-30); Chloride 97 mmol/L (98-107); Glucose 351 mg/dL (74-99); Lipase 86 U/L (23-300); Magnesium 1.8 mg/dL (1.6-2.3); Non-African American GFR(CKD) 35 (>60 ml/min/1.73 sqM); Potassium 4.6 mmol/L (3.5-5.1); Sodium 135 mmol/L (137-145); Total Bilirubin 0.5 mg/dL (0.2-1.3); Total Protein 6.7 g/dL (6.3-8.2)
[2024-01-02] MEDS: MAG HYDROX/AL HYDROX/SIMETH 30 ML, HYOSCYAMINE ELIXIR 10 ML PO STA (05:58)
[2024-01-02] MEDS: SODIUM CHLORIDE 0.9% 1,000 ML IV STA (05:58)
[2024-01-02 06:07] LABS: NT-Pro-B-Type Natriuretic Pept 190 pg/mL
--- NOTE | 2024-01-02 06:27 | ED ---
General Adult HPI - General Chief complaint: ENT Stated complaint: chest pain/acid reflux Time Seen by Provider: 01/02/24 05:21 Source: patient, RN notes reviewed Mode of arrival: wheelchair Limitations: no limitations - History of Present Illness Initial comments: 53-year-old male presents emergency department chief complaint of reflux, esophageal issues. Patient states that he has had dilations and has chronic reflux and issues of this nature. He states that he ate some chili last night initially to have symptoms but woke up and had some irritation in his chest he states that he tried swallow some water in which symptoms worsened. He is able to get liquids down. He states he had esophageal dilation 1 year ago. Patient denies any fevers or chills no shortness of breath no headache or dizziness no other complaints. - Related Data Home Medications Medication Instructions Recorded Confirmed Latanoprost Ophth [Xalatan 0.005%] 1 drop BOTH EYES HS 01/23/14 07/14/23 Ferrous Sulfate [Iron (65 MG 325 mg PO BID 10/25/20 07/14/23 Elemental)] Omeprazole 20 mg PO AC-BRKFST 11/10/21 07/14/23 Atorvastatin [Lipitor] 80 mg PO DAILY 06/03/22 07/14/23 metFORMIN HCL 1,000 mg PO BID 06/03/22 07/14/23 Insulin Glargine,Hum.rec.anlog 52 units SQ HS 12/11/22 07/14/23 [Lantus Solostar Pen] Potassium Chloride ER [K-Dur 10] 10 meq PO DAILY 12/11/22 07/14/23 lisinopriL [Zestril] 2.5 mg PO DAILY 12/11/22 07/14/23 Dicyclomine [Bentyl] 20 mg PO BID 04/09/23 07/14/23 Ergocalciferol [Vitamin D2 (1250 1,250 mcg PO QMONTHLY 04/09/23 07/14/23 Mcg = 58417 Iu)] Furosemide [Lasix] 40 mg PO DAILY 04/09/23 07/14/23 Ammonium Lactate Lotion 1 applic TOPICAL DAILY 07/14/23 07/14/23 [Lac-Hydrin 12% Lotion] Cholecalciferol [Vitamin D3 (25 25 mcg PO DAILY 07/14/23 07/14/23 Mcg = 1000 Iu)] Cyclobenzaprine [Flexeril] 10 mg PO BID 07/14/23 07/14/23 Dextroamphetamine/Amphetamine 20 mg PO DAILY 07/14/23 07/14/23 [Adderall Xr 20 mg Capsule] Insulin Lispro [humaLOG Kwikpen] 16 unit SQ TID-W/MEALS 07/14/23 07/14/23 Metoclopramide [Reglan] 10 mg PO TID PRN 07/14/23 07/15/23 Patient Own Pump 0 bag 07/14/23 07/14/23 tadalafiL 5 mg PO DAILY 07/14/23 07/15/23 Previous Rx's Medication Instructions Recorded Apixaban [Eliquis] 5 mg PO BID #1 tab 08/26/22 Magnesium Oxide [Mag-Ox] 400 mg PO DAILY tab 08/26/22 Acetaminophen Tab [Tylenol] 650 mg PO Q6HR PRN tab 07/21/23 Albuterol Inhaler [Ventolin Hfa 2 puff INHALATION Q6H PRN 30 Days 07/21/23 Inhaler] #1 each Budesonide-Formot 160-4.5 Mcg 2 puff INHALATION BID #10.2 gm 07/21/23 [Symbicort 160-4.5 Mcg Inhaler] Ciprofloxacin HCl [Cipro] 500 mg PO Q12HR 10 Days #20 tab 07/21/23 Doxycycline [Vibramycin] 100 mg PO BID 10 Days #20 capsule 07/21/23 HYDROcodone/APAP 10-325MG [[place] 0.5 tab PO BID #0 07/21/23 10-325] guaiFENesin-DM 100-10MG/5ML 10 ml PO Q6HR PRN #120 ml 07/21/23 [Robitussin DM] predniSONE 10 mg PO DIRECTED #30 tab 07/21/23 Allergies Allergy/AdvReac Type Severity Reaction Status Date / Time adhesive Allergy Rash/Hives Verified 07/14/23 18:28 Review of Systems ROS Statement: Those systems with pertinent positive or pertinent negative responses have been documented in the HPI. ROS Other: All systems not noted in ROS Statement are negative. Past Medical History Past Medical History: Blood Disorder, Diabetes Mellitus, Deep Vein Thrombosis (DVT), GERD/Reflux, Hyperlipidemia, Hypertension, Musculoskeletal Disorder, Osteoarthritis (OA), Sleep Apnea/CPAP/BIPAP Additional Past Medical History / Comment(s): IDDM type II, neuropathy bilateral feet with R foot worse, charcot foot R/L, currently sores L foot and is NWB, recent surgery R foot with boot an can wt bear as tolerated, gastroparesis, hiatal hernia, esophageal narrowing (scarring)/past dysphagia/has had dilations, factor V leiden, 2 DVT's L leg, another superficial blood clot L leg, chronic back pain/has pain pump, DDD and bulging discs, legally blind L eye since , migraines, PVD, fatty liver, MEL with trilogy machine. Last Myocardial Infarction Date:: 11/07/21 History of Any Multi-Drug Resistant Organisms: VRE Date of last positivie culture/infection: 08/17/22 MDRO Source:: Left Leg Past Surgical History: Tonsillectomy Additional Past Surgical History / Comment(s): R foot/ankle surgery at [facility] with bone removal/hardware inserted, I&D L foot, pain pump insertion, colonoscopy, EGDs with dilations, UVPPP, eye surgery as an infant. 09/13/23 BLK amputation Past Anesthesia/Blood Transfusion Reactions: Family History of Problems w/ Anesthesia Additional Past Anesthesia/Blood Transfusion Reaction / Comment(s): STATES "MOTHER CRASHES" "passes out"-with anesthesia,"needs to have a hydrochloric area supervisor dose" Past Psychological History: Anxiety, Depression Smoking Status: Never smoker Past Alcohol Use History: None Reported Past Drug Use History: None Reported - Past Family History Father Family Medical History: Cancer Additional Family Medical History / Comment(s): BLADDER CANCER Mother Family Medical History: CVA/TIA, Diabetes Mellitus, Myocardial Infarction ([place]) General Exam Limitations: no limitations General appearance: alert, in no apparent distress Head exam: Present: atraumatic, normocephalic, normal inspection Eye exam: Present: normal appearance, PERRL, EOMI. Absent: scleral icterus, conjunctival injection, periorbital swelling ENT exam: Present: normal exam, normal oropharynx, mucous membranes moist Neck exam: Present: normal inspection, full ROM. Absent: tenderness, meningismus, lymphadenopathy Respiratory exam: Present: normal lung sounds bilaterally. Absent: respiratory distress, wheezes, rales, rhonchi, stridor Cardiovascular Exam: Present: regular rate, normal rhythm, normal heart sounds. Absent: systolic murmur, diastolic murmur, rubs, gallop, clicks GI/Abdominal exam: Present: soft, normal bowel sounds. Absent: distended, tenderness, guarding, rebound, rigid Extremities exam: Present: other (Left below-knee amputation) Neurological exam: Present: alert Course Vital Signs 01/02/24 01/02/24 05:03 07:06 Temperature 98.2 F Pulse Rate 94 85 Respiratory 20 18 Rate Blood Pressure 139/80 114/61 O2 Sat by Pulse 98 99 Oximetry EKG Findings - EKG Comments: EKG Findings:: EKG performed at 113 sinus rhythm with a rate of 81 SC 175 QRS 102 QT/QTc 350/387 - EKG Results: EKG: interpreted by ANTONI Medical Decision Making - Medical Decision Making Was pt. sent in by a medical professional or institution (, PA, BUILDING MANAGER, urgent care, hospital, or snf...) When possible be specific @ -No Did you speak to anyone other than the patient for history (EMS, parent, family, police, friend...)? What history was obtained from this source @ -No Did you review nursing and triage notes (agree or disagree)? Why? @ -I reviewed and agree with nursing and triage notes Were old charts reviewed (outside hosp., previous admission, EMS record, old EKG, old radiological studies, urgent care reports/EKG's, snf records)? Report findings @ -No old charts were reviewed Differential Diagnosis (chest pain, altered mental status, abdominal pain women, abdominal pain men, vaginal bleeding, weakness, fever, dyspnea, syncope, headache, dizziness, GI bleed, back pain, seizure, CVA, palpatations, mental health, musculoskeletal)? @ -GERD, peptic ulcer disease, esophageal food impaction, esophagitis EKG interpreted by me (3pts min.). @ -None X-rays interpreted by me (1pt min.). @ -None done CT interpreted by me (1pt min.). @ -None done U/S interpreted by me (1pt. min.). @ -None done What testing was considered but not performed or refused? (CT, X-rays, U/S, labs)? Why? @ -None What meds were considered but not given or refused? Why? @ -None Did you discuss the management of the patient with other professionals (professionals i.e. , PA, BUILDING MANAGER, lab, RT, psych nurse, social science teacher, student finance specialist, teacher, evp chief exploration officer, pillowcase turner)? Give summary @ -No Was smoking cessation discussed for >3mins.? @ -No Was critical care preformed (if so, how long)? @ -No Were there social determinants of health that impacted care today? How? (Homel essness, low income, unemployed, alcoholism, drug addiction, transportation, low edu. Level, literacy, decrease access to med. care, fdc, rehab)? @ -No Was there de-escalation of care discussed even if they declined (Discuss DNR or withdrawal of care, Hospice)? DNR status @ -No What co-morbidities impacted this encounter? (DM, HTN, Smoking, COPD, CAD, Cancer, CVA, ARF, Chemo, Hep., AIDS, mental health diagnosis, sleep apnea, morbid obesity)? @ -None Was patient admitted / discharged? Hospital course, mention meds given and route, prescriptions, significant lab abnormalities, going to OR and other pertinent info. @ -Discharge patient feels greatly improved after GI cocktail, glucagon and ant iemetics. Patient will be discharged and follow-up with GI. Undiagnosed new problem with uncertain prognosis? @ -No Drug Therapy requiring intensive monitoring for toxicity (Heparin, Nitro, Insulin, Cardizem)? @ -No Were any procedures done? @ -No Diagnosis/symptom? @ -GERD esophageal bolus Acute, or Chronic, or Acute on Chronic? @ -acute Uncomplicated (without systemic symptoms) or Complicated (systemic symptoms)? @ -uncomplicated Side effects of treatment? @ -No Exacerbation, Progression, or Severe Exacerbation? @ -No Poses a threat to life or bodily function? How? (Chest pain, [place], [place], pneumonia, PE, COPD, DKA, ARF, appy, cholecystitis, CVA, Diverticulitis, Homicidal, Suicidal, threat to staff... and all critical care pts) @ -No - Lab Data Result diagrams: 01/02/24 05:20 01/02/24 05:20 Lab Results 01/02/24 01/02/24 01/02/24 Range/Units 05:20 05:20 05:20 WBC 7.2 (3.8-10.6) k/uL RBC 3.34 L (4.30-5.90) m/uL Hgb 9.9 L (13.0-17.5) gm/dL Hct 28.8 L (39.0-53.0) % MCV 86.2 (80.0-100.0) fL MCH 29.7 (25.0-35.0) pg MCHC 34.4 (31.0-37.0) g/dL RDW 15.1 (11.5-15.5) % Plt Count 232 (150-450) k/uL MPV 8.0 Neutrophils % 76 % Lymphocytes % 12 % Monocytes % 7 % Eosinophils % 3 % Basophils % 1 % Neutrophils # 5.5 (1.3-7.7) k/uL Lymphocytes # 0.9 L (1.0-4.8) k/uL Monocytes # 0.5 (0-1.0) k/uL Eosinophils # 0.3 (0-0.7) k/uL Basophils # 0.0 (0-0.2) k/uL PT 9.8 L (10.0-12.5) sec INR 0.9 (<1.2) APTT 23.0 (22.0-30.0) sec Sodium 135 L (137-145) mmol/L Potassium 4.6 (3.5-5.1) mmol/L Chloride 97 L (98-107) mmol/L Carbon Dioxide 31 H (22-30) mmol/L Anion Gap 7 mmol/L BUN 47 H (9-20) mg/dL Creatinine 2.07 H (0.66-1.25) mg/dL Est GFR (CKD-EPI)AfAm 41 (>60 ml/min/1.73 sqM) Est GFR (CKD-EPI)NonAf 35 (>60 ml/min/1.73 sqM) Glucose 351 H (74-99) mg/dL Calcium 9.5 (8.4-10.2) mg/dL Magnesium 1.8 (1.6-2.3) mg/dL Total Bilirubin 0.5 (0.2-1.3) mg/dL AST 21 (17-59) U/L ALT 22 (4-49) U/L Alkaline Phosphatase 126 (38-126) U/L Troponin I (0.000-0.034) ng/mL NT-Pro-B Natriuret Pep 190 pg/mL Total Protein 6.7 (6.3-8.2) g/dL Albumin 3.7 (3.5-5.0) g/dL Lipase 86 (23-300) U/L 01/02/24 Range/Units 05:20 WBC (3.8-10.6) k/uL RBC (4.30-5.90) m/uL Hgb (13.0-17.5) gm/dL Hct (39.0-53.0) % MCV (80.0-100.0) fL MCH (25.0-35.0) pg MCHC (31.0-37.0) g/dL RDW (11.5-15.5) % Plt Count (150-450) k/uL MPV Neutrophils % % Lymphocytes % % Monocytes % % Eosinophils % % Basophils % % Neutrophils # (1.3-7.7) k/uL Lymphocytes # (1.0-4.8) k/uL Monocytes # (0-1.0) k/uL Eosinophils # (0-0.7) k/uL Basophils # (0-0.2) k/uL PT (10.0-12.5) sec INR (<1.2) APTT (22.0-30.0) sec Sodium (137-145) mmol/L Potassium (3.5-5.1) mmol/L Chloride (98-107) mmol/L Carbon Dioxide (22-30) mmol/L Anion Gap mmol/L BUN (9-20) mg/dL Creatinine (0.66-1.25) mg/dL Est GFR (CKD-EPI)AfAm (>60 ml/min/1.73 sqM) Est GFR (CKD-EPI)NonAf (>60 ml/min/1.73 sqM) Glucose (74-99) mg/dL Calcium (8.4-10.2) mg/dL Magnesium (1.6-2.3) mg/dL Total Bilirubin (0.2-1.3) mg/dL AST (17-59) U/L ALT (4-49) U/L Alkaline Phosphatase (38-126) U/L Troponin I <0.012 (0.000-0.034) ng/mL NT-Pro-B Natriuret Pep pg/mL Total Protein (6.3-8.2) g/dL Albumin (3.5-5.0) g/dL Lipase (23-300) U/L Disposition Clinical Impression: GERD (gastroesophageal reflux disease) Disposition: HOME SELF-CARE Condition: Stable Additional Instructions: Please return to the Emergency Department if symptoms worsen or any other concerns. Is patient prescribed a controlled substance at d/c from ED?: No Referrals: Dl Waggoner MD [Primary Care Provider] - 1-2 days Time of Disposition: 07:23
--- NOTE | 2024-01-02 06:29 | XR ---
EXAM: XR Chest, 1 View CLINICAL HISTORY: ITS.REASON XR Reason: chest pain TECHNIQUE: Frontal view of the chest. COMPARISON: X-ray dated 07/17/2023 FINDINGS: Lungs: Linear densities likely representing atelectasis are seen within the right lower lobe. The left lung is clear. Pleural space: Unremarkable. No pneumothorax. Heart: Unremarkable. No cardiomegaly. Mediastinum: Unremarkable. Normal mediastinal contour. Bones/joints: Degenerative changes are seen within the spine and shoulders. No acute fracture. Upper abdomen: Elevation of the right hemidiaphragm. IMPRESSION: No acute findings in the chest.
[2024-01-02] MEDS: METOCLOPRAMIDE 5 MG/ML 2 ML VIAL IVP STA (06:46)
[2024-01-02] MEDS: GLUCAGON 1 MG/ML VIAL IVP STA (06:47)
[2024-01-02 07:09] VITALS: RESP 18
[2024-01-02 07:29] LABS: Glucose,Whole Blood 389 mg/dL (70-110)
[2024-01-02 08:23] VITALS: BP 135/69; PULSE 81; TEMP 97
== END 2024-01-02 07:38 | disposition home or self-care (01) ==
LOC: EC 05:02
CPT/HCPCS: 36415; 71045; 80053; 83690; 83735; 83880; 84484; 85025; 85610; 85730; 93005; 96361; 96374; 96375; 99285

== ENCOUNTER 2024-02-11 20:29 | Emergency (ER) | payer BC, OTHER ==
[2024-02-11 20:34] VITALS: RESP 18
--- NOTE | 2024-02-11 21:02 | ED ---
ENT HPI - General Chief complaint: ENT Stated complaint: Aspiration Time Seen by Provider: 02/11/24 20:59 Source: EMS, RN notes reviewed Mode of arrival: EMS - History of Present Illness Initial comments: 53-year-old male presenting via EMS for food stuck in throat prior to arrival. States he was eating [place] food consisting of boneless sweet and sour chicken, fried rice, and an egg roll when he began to choke on his food. He reports he was choking and coughing which prompted him to call EMS. States when EMS arrived he vomited a large volume of food and most of the pain resolved. He continues to have a dull pain in his upper chest. He does have a history of esophageal strictures that have been fixed with dilation. He does have a history of type 2 diabetes on insulin and metformin. - Related Data Home Medications Medication Instructions Recorded Confirmed Latanoprost Ophth [Xalatan 0.005%] 1 drop BOTH EYES HS 01/23/14 07/14/23 Ferrous Sulfate [Iron (65 MG 325 mg PO BID 10/25/20 07/14/23 Elemental)] Omeprazole 20 mg PO AC-BRKFST 11/10/21 07/14/23 Atorvastatin [Lipitor] 80 mg PO DAILY 06/03/22 07/14/23 metFORMIN HCL 1,000 mg PO BID 06/03/22 07/14/23 Insulin Glargine,Hum.rec.anlog 52 units SQ HS 12/11/22 07/14/23 [Lantus Solostar Pen] Potassium Chloride ER [K-Dur 10] 10 meq PO DAILY 12/11/22 07/14/23 lisinopriL [Zestril] 2.5 mg PO DAILY 12/11/22 07/14/23 Dicyclomine [Bentyl] 20 mg PO BID 04/09/23 07/14/23 Ergocalciferol [Vitamin D2 (1250 1,250 mcg PO QMONTHLY 04/09/23 07/14/23 Mcg = 61331 Iu)] Furosemide [Lasix] 40 mg PO DAILY 04/09/23 07/14/23 Ammonium Lactate Lotion 1 applic TOPICAL DAILY 07/14/23 07/14/23 [Lac-Hydrin 12% Lotion] Cholecalciferol [Vitamin D3 (25 25 mcg PO DAILY 07/14/23 07/14/23 Mcg = 1000 Iu)] Cyclobenzaprine [Flexeril] 10 mg PO BID 07/14/23 07/14/23 Dextroamphetamine/Amphetamine 20 mg PO DAILY 07/14/23 07/14/23 [Adderall Xr 20 mg Capsule] Insulin Lispro [humaLOG Kwikpen] 16 unit SQ TID-W/MEALS 07/14/23 07/14/23 Metoclopramide [Reglan] 10 mg PO TID PRN 07/14/23 07/15/23 Patient Own Pump 0 bag 07/14/23 07/14/23 tadalafiL 5 mg PO DAILY 07/14/23 07/15/23 Previous Rx's Medication Instructions Recorded Apixaban [Eliquis] 5 mg PO BID #1 tab 08/26/22 Magnesium Oxide [Mag-Ox] 400 mg PO DAILY tab 08/26/22 Acetaminophen Tab [Tylenol] 650 mg PO Q6HR PRN tab 07/21/23 Albuterol Inhaler [Ventolin Hfa 2 puff INHALATION Q6H PRN 30 Days 07/21/23 Inhaler] #1 each Budesonide-Formot 160-4.5 Mcg 2 puff INHALATION BID #10.2 gm 07/21/23 [Symbicort 160-4.5 Mcg Inhaler] Ciprofloxacin HCl [Cipro] 500 mg PO Q12HR 10 Days #20 tab 07/21/23 Doxycycline [Vibramycin] 100 mg PO BID 10 Days #20 capsule 07/21/23 HYDROcodone/APAP 10-325MG [[place] 0.5 tab PO BID #0 07/21/23 10-325] guaiFENesin-DM 100-10MG/5ML 10 ml PO Q6HR PRN #120 ml 07/21/23 [Robitussin DM] predniSONE 10 mg PO DIRECTED #30 tab 07/21/23 Allergies Allergy/AdvReac Type Severity Reaction Status Date / Time adhesive Allergy Rash/Hives Verified 02/11/24 20:34 Review of Systems ROS Statement: Those systems with pertinent positive or pertinent negative responses have been documented in the HPI. ROS Other: All systems not noted in ROS Statement are negative. Past Medical History Past Medical History: Blood Disorder, Diabetes Mellitus, Deep Vein Thrombosis (DVT), GERD/Reflux, Hyperlipidemia, Hypertension, Musculoskeletal Disorder, Osteoarthritis (OA), Sleep Apnea/CPAP/BIPAP Additional Past Medical History / Comment(s): IDDM type II, neuropathy bilateral feet with R foot worse, charcot foot R/L, currently sores L foot and is NWB, recent surgery R foot with boot an can wt bear as tolerated, gastroparesis, hiatal hernia, esophageal narrowing (scarring)/past dysphagia/has had dilations, factor V leiden, 2 DVT's L leg, another superficial blood clot L leg, chronic back pain/has pain pump, DDD and bulging discs, legally blind L eye since , migraines, PVD, fatty liver, MEL with trilogy machine. Last Myocardial Infarction Date:: 11/07/21 History of Any Multi-Drug Resistant Organisms: VRE Date of last positivie culture/infection: 08/17/22 MDRO Source:: Left Leg Past Surgical History: Tonsillectomy Additional Past Surgical History / Comment(s): R foot/ankle surgery at [facility] with bone removal/hardware inserted, I&D L foot, pain pump insertion, colonoscopy, EGDs with dilations, UVPPP, eye surgery as an infant. 09/13/23 BLK amputation Past Anesthesia/Blood Transfusion Reactions: Family History of Problems w/ Anesthesia Additional Past Anesthesia/Blood Transfusion Reaction / Comment(s): STATES "MOTHER CRASHES" "passes out"-with anesthesia,"needs to have a seedling puller dose" Past Psychological History: Anxiety, Depression Smoking Status: Never smoker Past Alcohol Use History: None Reported Past Drug Use History: None Reported - Past Family History Father Family Medical History: Cancer Additional Family Medical History / Comment(s): BLADDER CANCER Mother Family Medical History: CVA/TIA, Diabetes Mellitus, Myocardial Infarction ([place]) General Exam General appearance: alert, in no apparent distress Head exam: Present: atraumatic, normocephalic, normal inspection Eye exam: Present: normal appearance, PERRL, EOMI. Absent: scleral icterus, conjunctival injection, periorbital swelling ENT exam: Present: normal exam, normal oropharynx, mucous membranes moist Neck exam: Present: normal inspection. Absent: tenderness, meningismus, lymphadenopathy Respiratory exam: Present: normal lung sounds bilaterally. Absent: respiratory distress, wheezes, rales, rhonchi, stridor Cardiovascular Exam: Present: regular rate, normal rhythm, normal heart sounds. Absent: systolic murmur, diastolic murmur, rubs, gallop, clicks Course Vital Signs 02/11/24 20:32 Temperature 98.6 F Pulse Rate 86 Respiratory 18 Rate Blood Pressure 162/81 O2 Sat by Pulse 98 Oximetry Medical Decision Making - Medical Decision Making Was pt. sent in by a medical professional or institution (TESSA Ayers, APPLICATION ARCHITECT MANAGER, urgent care, hospital, or detention...) When possible be specific @ -No Did you speak to anyone other than the patient for history (EMS, parent, family, police, friend...)? What history was obtained from this source @ -No Did you review nursing and triage notes (agree or disagree)? Why? @ -I reviewed and agree with nursing and triage notes Were old charts reviewed (outside hosp., previous admission, EMS record, old EK G, old radiological studies, urgent care reports/EKG's, detention records)? Report findings @ -No old charts were reviewed Differential Diagnosis (chest pain, altered mental status, abdominal pain women, abdominal pain men, vaginal bleeding, weakness, fever, dyspnea, syncope, headache, dizziness, GI bleed, back pain, seizure, CVA, palpatations, mental health, musculoskeletal)? @ -Esophageal foreign body, esophageal stricture, esophageal mass EKG interpreted by me (3pts min.). @ -None X-rays interpreted by me (1pt min.). @ -X-ray soft tissue neck reveals no radiopaque foreign body, poor visualization of epiglottis CT interpreted by me (1pt min.). @ -None done U/S interpreted by me (1pt. min.). @ -None done What testing was considered but not performed or refused? (CT, X-rays, U/S, labs )? Why? @ -Glucagon considered however did not give as patient is tolerating oral soda well with no vomiting. No evidence of acute food bolus What meds were considered but not given or refused? Why? @ -None Did you discuss the management of the patient with other professionals (professionals i.e. TESSA Ayers, APPLICATION ARCHITECT MANAGER, lab, RT, psych nurse, community mental health social worker, coffee grinder, teacher, product safety officer, senior case manager)? Give summary @ -No Was smoking cessation discussed for >3mins.? @ -No Was critical care preformed (if so, how long)? @ -No Were there social determinants of health that impacted care today? How? (Homeles sness, low income, unemployed, alcoholism, drug addiction, transportation, low edu. Level, literacy, decrease access to med. care, care home, rehab)? @ -No Was there de-escalation of care discussed even if they declined (Discuss DNR or withdrawal of care, Hospice)? DNR status @ -No What co-morbidities impacted this encounter? (DM, HTN, Smoking, COPD, CAD, Cancer, CVA, ARF, Chemo, Hep., AIDS, mental health diagnosis, sleep apnea, morbid obesity)? @ -None Was patient admitted / discharged? Hospital course, mention meds given and route, prescriptions, significant lab abnormalities, going to OR and other pertinent info. @ -Discharged. This is a 53-year-old male presenting for food bolus stuck in throat prior to arrival. Patient admits large amount of vomiting prior to arrival in the ER and continues to report a burning in the chest however less severe than previously. No acute distress. Patient is tolerating oral soda well. GI cocktail given. X-ray soft tissue reveals no radiopaque foreign body. Upon reevaluation, patient has reported no vomiting and tolerated entire can of soda. Symptoms are controlled at this time. Advise close follow-up with GI specialist if symptoms persist. Strict return precautions discussed and patient is agreeable to plan. Case was discussed with my ED attending Dr. Coates. Patient discharged in stable condition. Undiagnosed new problem with uncertain prognosis? @ -No Drug Therapy requiring intensive monitoring for toxicity (Heparin, Nitro, Insulin, Cardizem)? @ -No Were any procedures done? @ -No Diagnosis/symptom? @ -Foreign body sensation in esophagus Acute, or Chronic, or Acute on Chronic? @ -Acute Uncomplicated (without systemic symptoms) or Complicated (systemic symptoms)? @ -Uncomplicated Side effects of treatment? @ -No Exacerbation, Progression, or Severe Exacerbation? @ -No Poses a threat to life or bodily function? How? (Chest pain, [place], [place], pneumonia, PE, COPD, DKA, ARF, appy, cholecystitis, CVA, Diverticulitis, Homicidal, Ramona cidal, threat to staff... and all critical care pts) @ -Not at this time Disposition Clinical Impression: Foreign body sensation in throat Disposition: HOME SELF-CARE Condition: Stable Additional Instructions: Follow-up with GI specialist as discussed. Please return to the Emergency Department if symptoms worsen or any other concerns. Is patient prescribed a controlled substance at d/c from ED?: No Referrals: Dl Waggoner MD [Primary Care Provider] - 1-2 days Time of Disposition: 22:12
[2024-02-11] MEDS: MAG HYDROX/AL HYDROX/SIMETH 30 ML, HYOSCYAMINE ELIXIR 10 ML, LIDOCAINE VISCOUS 2% 10 ML PO STA (21:27)
--- NOTE | 2024-02-11 21:45 | XR ---
EXAMINATION TYPE: XR soft tissue neck DATE OF EXAM: 02/11/2024 COMPARISON: None HISTORY: Foreign body sensation TECHNIQUE: 2 view soft tissue neck FINDINGS: Prevertebral space appears normal. Epiglottis is not well-visualized. No radiopaque foreign bodies are identified IMPRESSION: 1. No radiopaque foreign body identified. 2. There is poor visualization of the epiglottis. Correlate for any signs of infection. [facility], Workstation: [facility], 02/11/2024 9:42 PM
[2024-02-11 22:42] VITALS: BP 131/69; PULSE 69; TEMP 97.4
== END 2024-02-11 22:48 | disposition home or self-care (01) ==
LOC: EC 20:29
CPT/HCPCS: 70360; 99283

== ENCOUNTER 2024-02-23 09:42 | Emergency (ER) | payer BC, OTHER ==
--- NOTE | 2024-02-23 10:04 | ED ---
Male Urogenital HPI - General Chief complaint: Urogenital Stated complaint: unable to have bowel movement/unable to urinate Time Seen by Provider: 02/23/24 09:50 Source: patient, RN notes reviewed Mode of arrival: wheelchair Limitations: physical limitation - History of Present Illness Initial comments: This is a 54-year-old male who presents to the emergency department for constipation and urinary retention. Patient states that has not been able to h ave a bowel movement for 3 days and has not been able to urinate for 2 days. He does have a longstanding history of constipation, but not the urinary retention. Believes that the urinary retention may be a result of the constipation. He feels the need to urinate and have a bowel movement, but is unable to go. Reports suprapubic pain. Denies any nausea or vomiting. He was passing gas last night but does not believe he has passed any gas this morning. Denies any history of bowel obstructions. - Related Data Home Medications Medication Instructions Recorded Confirmed Latanoprost Ophth [Xalatan 0.005%] 1 drop BOTH EYES HS 01/23/14 02/23/24 Ferrous Sulfate [Iron (65 MG 325 mg PO BID 10/25/20 02/23/24 Elemental)] Omeprazole 20 mg PO DAILY 11/10/21 02/23/24 Atorvastatin [Lipitor] 80 mg PO DAILY 06/03/22 02/23/24 metFORMIN HCL 1,000 mg PO BID 06/03/22 02/23/24 Insulin Glargine,Hum.rec.anlog 15 units SQ BID 12/11/22 02/23/24 [Lantus Solostar Pen] lisinopriL [Zestril] 2.5 mg PO DAILY 12/11/22 02/23/24 Ergocalciferol [Vitamin D2 (1250 1,250 mcg PO Q14D 04/09/23 02/23/24 Mcg = 14397 Iu)] Furosemide [Lasix] 40 mg PO DAILY 04/09/23 02/23/24 Cyclobenzaprine [Flexeril] 10 mg PO BID PRN 07/14/23 02/23/24 Dextroamphetamine/Amphetamine 20 mg PO DAILY 07/14/23 02/23/24 [Adderall Xr 20 mg Capsule] Insulin Lispro [humaLOG Kwikpen] See Protocol SQ TID-W/MEALS 07/14/23 02/23/24 Patient Own Pump 0 bag 07/14/23 07/14/23 Doxycycline Hyclate 100 mg PO BID 02/23/24 02/23/24 Escitalopram Oxalate [Lexapro] 10 mg PO DAILY 02/23/24 02/23/24 Loratadine [Claritin] 10 mg PO DAILY 02/23/24 02/23/24 Lubiprostone [Amitiza] 24 mcg PO BID 02/23/24 02/23/24 methocarbamoL [Robaxin] 1,500 mg PO Q8H PRN 02/23/24 02/23/24 polyethylene glycoL 3350 [Miralax] 17 gm PO DAILY 02/23/24 02/23/24 Previous Rx's Medication Instructions Recorded Apixaban [Eliquis] 5 mg PO BID #1 tab 08/26/22 Magnesium Oxide [Mag-Ox] 400 mg PO DAILY tab 08/26/22 Acetaminophen Tab [Tylenol] 650 mg PO Q6HR PRN tab 07/21/23 Allergies Allergy/AdvReac Type Severity Reaction Status Date / Time adhesive Allergy Rash/Hives Verified 02/23/24 12:18 Review of Systems ROS Statement: Those systems with pertinent positive or pertinent negative responses have been documented in the HPI. ROS Other: All systems not noted in ROS Statement are negative. Past Medical History Past Medical History: Blood Disorder, Diabetes Mellitus, Deep Vein Thrombosis (DVT), GERD/Reflux, Hyperlipidemia, Hypertension, Musculoskeletal Disorder, Osteoarthritis (OA), Sleep Apnea/CPAP/BIPAP Additional Past Medical History / Comment(s): IDDM type II, neuropathy bilateral feet with R foot worse, charcot foot R/L, currently sores L foot and is NWB, recent surgery R foot with boot an can wt bear as tolerated, gastroparesis, hiatal hernia, esophageal narrowing (scarring)/past dysphagia/has had dilations, factor V leiden, 2 DVT's L leg, another superficial blood clot L leg, chronic back pain/has pain pump, DDD and bulging discs, legally blind L eye since , migraines, PVD, fatty liver, MEL with trilogy machine. Last Myocardial Infarction Date:: 11/07/21 History of Any Multi-Drug Resistant Organisms: VRE Date of last positivie culture/infection: 08/17/22 MDRO Source:: Left Leg Past Surgical History: Tonsillectomy Additional Past Surgical History / Comment(s): R foot/ankle surgery at [facility] with bone removal/hardware inserted, I&D L foot, pain pump insertion, colonoscopy, EGDs with dilations, UVPPP, eye surgery as an . 09/13/23 BKA Past Anesthesia/Blood Transfusion Reactions: Family History of Problems w/ Anesthesia Additional Past Anesthesia/Blood Transfusion Reaction / Comment(s): STATES "MOTHER CRASHES" "passes out"-with anesthesia,"needs to have a pharmaceutical officer dose" Past Psychological History: Anxiety, Depression Smoking Status: Never smoker Past Alcohol Use History: None Reported Past Drug Use History: None Reported - Past Family History Father Family Medical History: Cancer Additional Family Medical History / Comment(s): BLADDER CANCER Mother Family Medical History: CVA/TIA, Diabetes Mellitus, Myocardial Infarction ([place]) General Exam Limitations: physical limitation General appearance: alert, in no apparent distress Head exam: Present: atraumatic, normocephalic, normal inspection Respiratory exam: Present: normal lung sounds bilaterally. Absent: respiratory distress, wheezes, rales, rhonchi, stridor Cardiovascular Exam: Present: regular rate, normal rhythm, normal heart sounds. Absent: systolic murmur, diastolic murmur, rubs, gallop, clicks GI/Abdominal exam: Present: soft, tenderness (Lower abdomen), normal bowel sounds. Absent: distended Neurological exam: Present: alert, oriented X3, CN II-XII intact Psychiatric exam: Present: normal affect, normal mood Skin exam: Present: warm, dry, intact, normal color. Absent: rash Course Vital Signs 02/23/24 02/23/24 02/23/24 09:44 10:58 17:07 Temperature 98.7 F 98.1 F 98.6 F Pulse Rate 76 72 71 Respiratory 18 18 16 Rate Blood Pressure 107/61 107/60 178/88 O2 Sat by Pulse 97 98 95 Oximetry Medical Decision Making - Medical Decision Making This is a 54 year old male who presents to the emergency department for constipation and urinary retention. Was pt. sent in by a medical professional or institution? @ -No Did you speak to anyone other than the patient for history? @ -No Did you review nursing and triage notes? @ -Yes, and I agree, it is accurate with regards to the patient's symptoms. Were old charts reviewed? @ -No Differential Diagnosis? @ -Ileus, bowel obstruction, UTI, gastroenteritis, this is not meant to be an all-inclusive list. EKG interpreted by me (3pts min.)? @ -EKG interpreted by me demonstrating the following: X-rays interpreted by me (1pt min.)? @ -KUB x-ray obtained. My interpretation identifies moderate to large stool burden. CT interpreted by me (1pt min.)? @ -Not obtained U/S interpreted by me (1pt. min.)? @ -Not obtained What testing was considered but not performed? (CT, X-rays, U/S, labs)? Why? @ -None What meds were considered but not given? Why? @ -None Did you discuss the management of the patient with other professionals? @ -No Did you reconcile home meds? @ -No Was smoking cessation discussed for >3mins.? @ -No Was critical care preformed (if so, how long)? @ -No Were there social determinants of health that impacted care today? How? (Homelessness, low income, unemployed, alcoholism, drug addiction, transportation, low edu. Level, literacy, decrease access to med. care, penitentiary, rehab)? @ -No Was there de-escalation of care discussed even if they declined? (Discuss DNR or withdrawal of care, Hospice)? @ -No What co-morbidities impacted this encounter? (DM, HTN, Smoking, COPD, CAD, Cancer, CVA, Hep., AIDS, mental health diagnosis, sleep apnea, morbid obesity)? @ -DM, CKD Was patient admitted / discharged? @ -Discharged. Bladder scan performed demonstrating 999 mL of urine. Castillo catheter inserted. Approximately 1300 mL of urine was drained initially. Lab work demonstrates signs of dehydration, however renal function is improved when compared with prior. Urinalysis negative for signs of infection. KUB x-ray demonstrates moderate to large stool burden without signs of obstructive process. Fleet enema administered and the patient produced a large bowel movement. After having the Castillo catheter drain the urine and having the large bowel movement, he overall felt substantially better. Patient sent home with the Castillo catheter in place. He will continue with his stool regimen at home and he was given information for follow-up with urology regarding the urinary retention. Case discussed with ED attending, Dr. Wilkinson. Return precautions reviewed in depth, the patient is instructed to return to the emergency department with any new, worsening, or concerning symptoms. Patient verbalized understanding. Undiagnosed new problem with uncertain prognosis? @ -None Drug Therapy requiring intensive monitoring for toxicity (Heparin, Nitro, Insulin, Cardizem)? @ -None Were any procedures done? @ -None Diagnosis/symptom? @ -Constipation, urinary retention Acute, or Chronic, or Acute on Chronic? @ -Acute Uncomplicated (without systemic symptoms) or Complicated (systemic symptoms)? @ -Uncomplicated Side effects of treatment? @ -None Exacerbation, Progression, or Severe Exacerbation] @ -Not applicable Poses a threat to life or bodily function? @ -No - Lab Data Result diagrams: 02/23/24 10:38 02/23/24 10:38 Lab Results 02/23/24 02/23/24 02/23/24 Range/Units 10:32 10:38 10:38 WBC 5.9 (3.8-10.6) k/uL RBC 2.81 L (4.30-5.90) m/uL Hgb 8.3 L D (13.0-17.5) gm/dL Hct 25.0 L (39.0-53.0) % MCV 88.8 (80.0-100.0) fL MCH 29.7 (25.0-35.0) pg MCHC 33.4 (31.0-37.0) g/dL RDW 15.1 (11.5-15.5) % Plt Count 251 (150-450) k/uL MPV 8.4 Neutrophils % 69 % Lymphocytes % 18 % Monocytes % 7 % Eosinophils % 4 % Basophils % 1 % Neutrophils # 4.0 (1.3-7.7) k/uL Lymphocytes # 1.0 (1.0-4.8) k/uL Monocytes # 0.4 (0-1.0) k/uL Eosinophils # 0.2 (0-0.7) k/uL Basophils # 0.0 (0-0.2) k/uL PT (10.0-12.5) sec INR (<1.2) APTT (22.0-30.0) sec Sodium 135 L (137-145) mmol/L Potassium 4.0 (3.5-5.1) mmol/L Chloride 99 (98-107) mmol/L Carbon Dioxide 28 (22-30) mmol/L Anion Gap 8 mmol/L BUN 41 H (9-20) mg/dL Creatinine 1.44 H (0.66-1.25) mg/dL Est GFR (CKD-EPI)AfAm 63 (>60 ml/min/1.73 sqM) Est GFR (CKD-EPI)NonAf 55 (>60 ml/min/1.73 sqM) Glucose 243 H (74-99) mg/dL Plasma Lactic Acid Ger (0.7-2.0) mmol/L Calcium 8.9 (8.4-10.2) mg/dL Total Bilirubin 0.3 (0.2-1.3) mg/dL AST 19 (17-59) U/L ALT 15 (4-49) U/L Alkaline Phosphatase 100 (38-126) U/L Total Protein 6.0 L (6.3-8.2) g/dL Albumin 3.3 L (3.5-5.0) g/dL Urine Color Colorless Urine Appearance Clear (Clear) Urine pH 5.0 (5.0-8.0) Ur Specific [place] 1.008 (1.001-1.035) Urine Protein Negative (Negative) Urine Glucose (UA) Negative (Negative) Urine Ketones Negative (Negative) Urine Blood Negative (Negative) Urine Nitrite Negative (Negative) Urine Bilirubin Negative (Negative) Urine Urobilinogen <2.0 (<2.0) mg/dL Ur Leukocyte Esterase Negative (Negative) 02/23/24 02/23/24 Range/Units 10:38 10:38 WBC (3.8-10.6) k/uL RBC (4.30-5.90) m/uL Hgb (13.0-17.5) gm/dL Hct (39.0-53.0) % MCV (80.0-100.0) fL MCH (25.0-35.0) pg MCHC (31.0-37.0) g/dL RDW (11.5-15.5) % Plt Count (150-450) k/uL MPV Neutrophils % % Lymphocytes % % Monocytes % % Eosinophils % % Basophils % % Neutrophils # (1.3-7.7) k/uL Lymphocytes # (1.0-4.8) k/uL Monocytes # (0-1.0) k/uL Eosinophils # (0-0.7) k/uL Basophils # (0-0.2) k/uL PT 10.5 (10.0-12.5) sec INR 0.9 (<1.2) APTT 24.4 (22.0-30.0) sec Sodium (137-145) mmol/L Potassium (3.5-5.1) mmol/L Chloride (98-107) mmol/L Carbon Dioxide (22-30) mmol/L Anion Gap mmol/L BUN (9-20) mg/dL Creatinine (0.66-1.25) mg/dL Est GFR (CKD-EPI)AfAm (>60 ml/min/1.73 sqM) Est GFR (CKD-EPI)NonAf (>60 ml/min/1.73 sqM) Glucose (74-99) mg/dL Plasma Lactic Acid Ger 1.6 (0.7-2.0) mmol/L Calcium (8.4-10.2) mg/dL Total Bilirubin (0.2-1.3) mg/dL AST (17-59) U/L ALT (4-49) U/L Alkaline Phosphatase (38-126) U/L Total Protein (6.3-8.2) g/dL Albumin (3.5-5.0) g/dL Urine Color Urine Appearance (Clear) Urine pH (5.0-8.0) Ur Specific [place] (1.001-1.035) Urine Protein (Negative) Urine Glucose (UA) (Negative) Urine Ketones (Negative) Urine Blood (Negative) Urine Nitrite (Negative) Urine Bilirubin (Negative) Urine Urobilinogen (<2.0) mg/dL Ur Leukocyte Esterase (Negative) - Radiology Data Radiology results: report reviewed, image reviewed Disposition Clinical Impression: Constipation, Urinary retention Disposition: HOME SELF-CARE Instructions (If sedation given, give patient instructions): Constipation (ED), Urinary Retention in Men (ED), Castillo Catheter Placement and Care (ED), How to Change a Catheter Drainage Bag (DC) Additional Instructions: Return to the emergency department with any new, worsening, or concerning symptoms. Contact the urology office listed below for a follow-up appointment. Follow up with your primary care provider in 1-2 days. Is patient prescribed a controlled substance at d/c from ED?: No Referrals: Dl Waggoner MD [Primary Care Provider] - 1-2 days Hans Green MD [STAFF PHYSICIAN] - 1-2 days Time of Disposition: 14:47
[2024-02-23 10:50] LABS: Appearance,Urine Clear (Clear); Bilirubin,Urine Negative (Negative); Blood,Urine Negative (Negative); Color,Urine Colorless; Glucose,Urine (UA) Negative (Negative); Ketones,Urine Negative (Negative); Leukocyte Esterase,Urine Negative (Negative); Nitrite,Urine Negative (Negative); Protein,Urine Negative (Negative); Specific Gravity,Urine 1.008 (1.001-1.035); Urobilinogen,Urine <2.0 mg/dL (<2.0)
[2024-02-23] MEDS: HYDROmorphone 1 MG/ML 1 ML SYRINGE IVP STA (11:02)
[2024-02-23 11:19] LABS: INR 0.9 (<1.2); Partial Thromboplastin Time 24.4 sec (22.0-30.0); Prothrombin Time 10.5 sec (10.0-12.5)
[2024-02-23 11:20] LABS: Basophils % (A) 1 %; Eosinophils # (A) 0.2 k/uL (0-0.7); Eosinophils % (A) 4 %; Lymphocytes % (A) 18 %; MCH 29.7 pg (25.0-35.0); MCHC 33.4 g/dL (31.0-37.0); MCV 88.8 fL (80.0-100.0); Mean Platelet Volume 8.4; Monocytes # (A) 0.4 k/uL (0-1.0); Monocytes % (A) 7 %; Neutrophils % (A) 69 %; Platelet Count 251 k/uL (150-450); RBC 2.81 m/uL (4.30-5.90); RDW 15.1 % (11.5-15.5); WBC 5.9 k/uL (3.8-10.6)
[2024-02-23 11:30] LABS: HGB 8.3 gm/dL (13.0-17.5)
[2024-02-23 11:51] LABS: ALT 15 U/L (4-49); AST 19 U/L (17-59); African American GFR (CKD) 63 (>60 ml/min/1.73 sqM); Albumin 3.3 g/dL (3.5-5.0); Alkaline Phosphatase 100 U/L (38-126); Anion Gap 8 mmol/L; Blood Urea Nitrogen 41 mg/dL (9-20); Calcium 8.9 mg/dL (8.4-10.2); Carbon Dioxide 28 mmol/L (22-30); Chloride 99 mmol/L (98-107); Glucose 243 mg/dL (74-99); Non-African American GFR(CKD) 55 (>60 ml/min/1.73 sqM); Sodium 135 mmol/L (137-145); Total Bilirubin 0.3 mg/dL (0.2-1.3)
--- NOTE | 2024-02-23 12:40 | XR ---
EXAMINATION TYPE: XR KUB DATE OF EXAM: 02/23/2024 11:45 AM COMPARISON: 05/14/2022 CLINICAL INDICATION: Male, 54 years old with history of Abdominal pain; [facility] TECHNIQUE: One radiographic view of the abdomen was obtained. FINDINGS: There is a moderate to large amount of stool burden including the rectum, otherwise, the ellen wel gas pattern is nonspecific without dilated loops of small or large bowel. . Fecal material and ga s are demonstrated throughout the colon and rectum. There is no evidence for organomegaly or pneumoperitoneum. The osseous structures are intact. No ab normal calcifications are present. Left lower abdomen moderate plaque present.. IMPRESSION: Moderate to large amount stool gaseous distention. Nonspecific bowel gas pattern without radiographic evidence for acute process. [facility], , 02/23/2024 12:38 PM
[2024-02-23] MEDS: NA PHOS,M-B/NA PHOS,DI-BA 133 ML ENEMA RECTAL STA (13:45)
[2024-02-23] MEDS: SODIUM CHLORIDE 0.9% 500 ML 500 ML IV STA (16:55)
[2024-02-23 17:09] VITALS: BP 178/88; PULSE 71; RESP 16; TEMP 98.6
== END 2024-02-23 17:09 | disposition home or self-care (01) ==
LOC: EC 09:42
CPT/HCPCS: 36415; 51703; 51798; 74018; 80053; 81003; 83605; 85025; 85610; 85730; 96374; 99283

== ENCOUNTER 2024-04-20 14:32 | Emergency (ER) | payer BC, OTHER ==
[2024-04-20 14:43] VITALS: PULSE 66
--- NOTE | 2024-04-20 15:14 | ED ---
ENT HPI - General Chief complaint: ENT Stated complaint: Esophageal obstruction Time Seen by Provider: 04/20/24 15:12 Source: patient, EMS, RN notes reviewed Mode of arrival: EMS Limitations: no limitations - History of Present Illness Initial comments: 54-year-old male presenting to the ER with foreign body sensation in esophagus. Patient states about an hour ago he was eating a bologna sandwich when he felt like the balloon he got stuck in the esophagus. Patient states he was choking and coughing with discomfort in his chest for several minutes. Patient reports the symptoms have mostly resolved. States he has a history of this happening multiple times as he has known esophageal strictures due to GERD. He has an EGD scheduled in 4 days. Denies difficulty breathing or swallowing. - Related Data Home Medications Medication Instructions Recorded Confirmed Latanoprost Ophth [Xalatan 0.005%] 1 drop BOTH EYES HS 01/23/14 02/23/24 Ferrous Sulfate [Iron (65 MG 325 mg PO BID 10/25/20 02/23/24 Elemental)] Omeprazole 20 mg PO DAILY 11/10/21 02/23/24 Atorvastatin [Lipitor] 80 mg PO DAILY 06/03/22 02/23/24 metFORMIN HCL 1,000 mg PO BID 06/03/22 02/23/24 Insulin Glargine,Hum.rec.anlog 15 units SQ BID 12/11/22 02/23/24 [Lantus Solostar Pen] lisinopriL [Zestril] 2.5 mg PO DAILY 12/11/22 02/23/24 Ergocalciferol [Vitamin D2 (1250 1,250 mcg PO Q14D 04/09/23 02/23/24 Mcg = 83826 Iu)] Furosemide [Lasix] 40 mg PO DAILY 04/09/23 02/23/24 Cyclobenzaprine [Flexeril] 10 mg PO BID PRN 07/14/23 02/23/24 Dextroamphetamine/Amphetamine 20 mg PO DAILY 07/14/23 02/23/24 [Adderall Xr 20 mg Capsule] Insulin Lispro [humaLOG Kwikpen] See Protocol SQ TID-W/MEALS 07/14/23 02/23/24 Patient Own Pump 0 bag 07/14/23 07/14/23 Doxycycline Hyclate 100 mg PO BID 02/23/24 02/23/24 Escitalopram Oxalate [Lexapro] 10 mg PO DAILY 02/23/24 02/23/24 Loratadine [Claritin] 10 mg PO DAILY 02/23/24 02/23/24 Lubiprostone [Amitiza] 24 mcg PO BID 02/23/24 02/23/24 methocarbamoL [Robaxin] 1,500 mg PO Q8H PRN 02/23/24 02/23/24 polyethylene glycoL 3350 [Miralax] 17 gm PO DAILY 02/23/24 02/23/24 Previous Rx's Medication Instructions Recorded Apixaban [Eliquis] 5 mg PO BID #1 tab 08/26/22 Magnesium Oxide [Mag-Ox] 400 mg PO DAILY tab 08/26/22 Acetaminophen Tab [Tylenol] 650 mg PO Q6HR PRN tab 07/21/23 Allergies Allergy/AdvReac Type Severity Reaction Status Date / Time adhesive Allergy Rash/Hives Verified 02/23/24 12:18 Review of Systems ROS Statement: Those systems with pertinent positive or pertinent negative responses have been documented in the HPI. ROS Other: All systems not noted in ROS Statement are negative. Past Medical History Past Medical History: Blood Disorder, Diabetes Mellitus, Deep Vein Thrombosis (DVT), GERD/Reflux, Hyperlipidemia, Hypertension, Musculoskeletal Disorder, Osteoarthritis (OA), Sleep Apnea/CPAP/BIPAP Additional Past Medical History / Comment(s): IDDM type II, neuropathy bilateral feet with R foot worse, charcot foot R/L, currently sores L foot and is NWB, recent surgery R foot with boot an can wt bear as tolerated, gastroparesis, hiatal hernia, esophageal narrowing (scarring)/past dysphagia/has had dilations, factor V leiden, 2 DVT's L leg, another superficial blood clot L leg, chronic back pain/has pain pump, DDD and bulging discs, legally blind L eye since , migraines, PVD, fatty liver, MEL with trilogy machine, narcolepsy Last Myocardial Infarction Date:: 11/07/21 History of Any Multi-Drug Resistant Organisms: MRSA, VRE Date of last positivie culture/infection: 08/17/22 MDRO Source:: Left Leg Past Surgical History: Tonsillectomy Additional Past Surgical History / Comment(s): R foot/ankle surgery at [facility] with bone removal/hardware inserted, I&D L foot, pain pump insertion, colonoscopy, EGDs with dilations, UVPPP, eye surgery as an infant. 09/13/23 BKA Past Anesthesia/Blood Transfusion Reactions: Family History of Problems w/ An esthesia Additional Past Anesthesia/Blood Transfusion Reaction / Comment(s): STATES "MOTHER CRASHES" "passes out"-with anesthesia,"needs to have a pet stylist dose" Past Psychological History: Anxiety, Depression Smoking Status: Never smoker Past Alcohol Use History: None Reported Past Drug Use History: None Reported - Past Family History Father Family Medical History: Cancer Additional Family Medical History / Comment(s): BLADDER CANCER Mother Family Medical History: CVA/TIA, Diabetes Mellitus, Myocardial Infarction (RI) General Exam Limitations: no limitations General appearance: alert, in no apparent distress Head exam: Present: atraumatic, normocephalic, normal inspection Eye exam: Present: normal appearance, PERRL, EOMI. Absent: scleral icterus, conjunctival injection, periorbital swelling ENT exam: Present: normal exam, mucous membranes moist Neck exam: Present: normal inspection. Absent: tenderness, meningismus, lymphadenopathy Respiratory exam: Present: normal lung sounds bilaterally. Absent: respiratory distress, wheezes, rales, rhonchi, stridor Cardiovascular Exam: Present: regular rate, normal rhythm, normal heart sounds. Absent: systolic murmur, diastolic murmur, rubs, gallop, clicks Neurological exam: Present: alert, oriented X3 Psychiatric exam: Present: normal affect, normal mood Skin exam: Present: warm, dry, intact, normal color. Absent: rash Course Vital Signs 04/20/24 04/20/24 14:36 16:28 Temperature 98.3 F 98.7 F Pulse Rate 66 66 Respiratory 18 16 Rate Blood Pressure 137/76 132/70 O2 Sat by Pulse 97 99 Oximetry Medical Decision Making - Medical Decision Making Was pt. sent in by a medical professional or institution (, [facility], CLINICAL TRIALS ASSISTANT, urgent care, hospital, or longterm...) When possible be specific @ -No Did you speak to anyone other than the patient for history (EMS, parent, family, police, friend...)? What history was obtained from this source @ -No Did you review nursing and triage notes (agree or disagree)? Why? @ -I reviewed and agree with nursing and triage notes Were old charts reviewed (outside hosp., previous admission, EMS record, old EKG, old radiological studies, urgent care reports/EKG's, longterm records)? Report findings @ -No old charts were reviewed Differential Diagnosis (chest pain, altered mental status, abdominal pain women, abdominal pain men, vaginal bleeding, weakness, fever, dyspnea, syncope, headache, dizziness, GI bleed, back pain, seizure, CVA, palpatations, mental health, musculoskeletal)? @ -Foreign body, GERD, esophageal stricture EKG interpreted by me (3pts min.). @ -None X-rays interpreted by me (1pt min.). @ -X-ray soft tissue negative for acute process CT interpreted by me (1pt min.). @ -None done U/S interpreted by me (1pt. min.). @ -None done What testing was considered but not performed or refused? (CT, X-rays, U/S, labs)? Why? @ -None What meds were considered but not given or refused? Why? @ -None Did you discuss the management of the patient with other professionals (professionals i.e. , PA, CLINICAL TRIALS ASSISTANT, lab, RT, psych nurse, social service manager, continuous process tanner rotary drum, teacher, family preservation officer, adult protective caseworker)? Give summary @ -No Was smoking cessation discussed for >3mins.? @ -No Was critical care preformed (if so, how long)? @ -No Were there social determinants of health that impacted care today? How? (Homelessness, low income, unemployed, alcoholism, drug addiction, transportation, low edu. Level, literacy, decrease access to med. care, longterm, rehab)? @ -No Was there de-escalation of care discussed even if they declined (Discuss DNR or withdrawal of care, Hospice)? DNR status @ -No What co-morbidities impacted this encounter? (DM, HTN, Smoking, COPD, CAD, Cancer, CVA, ARF, Chemo, Hep., AIDS, mental health diagnosis, sleep apnea, morbid obesity)? @ -None Was patient admitted / discharged? Hospital course, mention meds given and route, prescriptions, significant lab abnormalities, going to OR and other pertinent info. @ -Discharge. 54-year-old male presenting for foreign body sensation after eating a bologna sandwich. Patient states symptoms have mostly resolved. No difficulty swallowing or breathing. Patient is given carbonated beverage and is tolerating well. Discussed results with patient. X-ray soft tissue negative for acute process. Patient tolerated can of carbonated beverage with no difficulties. Appropriate return precautions and follow-up care discussed. Encouraged to follow-up for scheduled EGD in 4 days. Case was discussed with my ED attending Dr. Shelton Undiagnosed new problem with uncertain prognosis? @ -No Drug Therapy requiring intensive monitoring for toxicity (Heparin, Nitro, Insulin, Cardizem)? @ -No Were any procedures done? @ -No Diagnosis/symptom? @ -Foreign body sensation Acute, or Chronic, or Acute on Chronic? @ -Acute Uncomplicated (without systemic symptoms) or Complicated (systemic symptoms)? @ -Uncomplicated Side effects of treatment? @ -No Exacerbation, Progression, or Severe Exacerbation? @ -No Poses a threat to life or bodily function? How? (Chest pain, [place], [place], pneumonia, PE, COPD, DKA, ARF, appy, cholecystitis, CVA, Diverticulitis, Homicidal, Suicidal, threat to staff... and all critical care pts) @ -No Disposition Clinical Impression: Foreign body sensation in throat Disposition: HOME SELF-CARE Condition: Stable Instructions (If sedation given, give patient instructions): Esophageal Stricture (ED) Additional Instructions: Follow-up for EGD as discussed. Please return to the Emergency Department if symptoms worsen or any other concerns. Is patient prescribed a controlled substance at d/c from ED?: No Referrals: Dl Waggoner MD [Primary Care Provider] - 1-2 days Time of Disposition: 16:13
--- NOTE | 2024-04-20 15:39 | XR ---
EXAMINATION TYPE: XR soft tissue neck DATE OF EXAM: 04/20/2024 3:34 PM COMPARISON: 02/11/2024. CLINICAL INDICATION: Male, 54 years old with history of foriegn body sensation; TECHNIQUE: The soft tissues of the neck were imaged in frontal and lateral views. FINDINGS: No radiopaque foreign body visualized. Similar bony protuberance anterior aspect of C2. The prevertebral soft tissues are unremarkable. There is no evidence of mass effect or tracheal deviatio n. No acute osseous abnormality demonstrated. No evidence of subglottic narrowing. IMPRESSION: No radiopaque foreign body definitively visualized. [facility], , 04/20/2024 3:37 PM
[2024-04-20 16:29] VITALS: BP 132/70; RESP 16; TEMP 98.7
== END 2024-04-20 16:29 | disposition home or self-care (01) ==
LOC: EC 14:32
DX: T18.0XXA Foreign body in mouth, initial encounter (principal); Z91.09 Other allergy status, other than to drugs and biological substances
CPT/HCPCS: 70360; 99284

== ENCOUNTER → 2024-04-24 | Day surgery (SDC) | payer BC, OTHER ==
[2024-04-21 10:25] VITALS: BMI 41.1
[~2024-04-24] MED LIST changes: -LIDOCAINE 1% 20 ML VIAL (10MG/ML) FOR IV START INTRADERMA PRN; +LIDOCAINE 1% INJ 10MG/ML (20 ML MDV) ONE; +PROPOFOL 10 MG/ML 20 ML VIAL IV ONE
[2024-04-24 08:21] VITALS: TEMP 97.8
[2024-04-24] MEDS: LACTATED RINGERS 1,000 ML BAG IV STA (08:30)
[2024-04-24] MEDS: IV FLUID CONTINUATION 1,000 ML IV ONE (08:30)
[2024-04-24 08:45] LABS: Glucose,Whole Blood 150 mg/dL (70-110)
--- NOTE | 2024-04-24 09:12 | P.PCN ---
Date of Procedure: 04/24/24 Procedure(s) Performed: BRIEF HISTORY: Patient is a 54-year-old, pleasant, white male scheduled for an upper endoscopy as a part evaluation of lungs and history of GERD and intermittent dysphagia to solids. Was diagnosed with esophageal stricture several years ago and underwent multiple EGDs with dilation the last one about a year and a half ago at [facility]. He has been having worsening dysphagia for the last 2 months.. PROCEDURE PERFORMED: Esophagogastroduodenoscopy with biopsy and dilation. PREOPERATIVE DIAGNOSIS: GERD/intermittent dysphagia to solids. IV sedation per anesthesia. PROCEDURE: After informed consent was obtained, the patient was brought into the endoscopy unit. IV sedation was administered by Anesthesia under continuous monitoring. Initially the Olympus GIF-140 video endoscope was inserted into the mouth. Esophagus intubated without any difficulty. It was gradually advanced into the stomach and duodenum and carefully examined. The bulb and the second part of the duodenum appeared normal. The scope at this time was withdrawn to the stomach, adequately insufflated with air, and upon careful examination, mucosa of the antrum, body, cardia and the fundus appeared normal. The scope was then withdrawn into the esophagus. Small hiatal hernia noted. The GE junction was located at 39 cm from the incisors. There was a tight distal esophageal stricture identified and this was dilated using 12-15 TTS balloon and a sequential fashion for 60 seconds. Following the dilation there was a brisk oozing identified at the site of dilation with a mucosal tear. There are erosions of the distal esophagus consistent with LA grade B reflux esophagitis. Biopsies were done from the distal esophagus rule out Alvarez's esophagus. The rest of the esophagus appeared normal and the patient tolerated the procedure well. IMPRESSION: 1. Distal esophageal stricture status post balloon dilation using 12 to 15 mm TTS balloon as described above. 2. Small to moderate size hiatal hernia 3. Erosions of the distal esophagus consistent with LA grade B reflux esophagitis. RECOMMENDATIONS: The findings of this examination were discussed with the patient as well as his family. He was advised to follow-up with the biopsy results. Remain on clear liquids for 3 hours. Increase omeprazole to 20 mg twice daily and follow antireflux measures..
[2024-04-24 09:40] VITALS: BP 113/55; PULSE 65; RESP 16
== END | disposition home or self-care (01) ==
LOC: ORWHC2ENDO 07:39
PROVIDERS: ATTEND Internal Medicine Gastroenterology
DX: K21.00 Gastro-esophageal reflux disease with esophagitis, without bleeding (principal); K22.2 Esophageal obstruction; K44.9 Diaphragmatic hernia without obstruction or gangrene; I11.0 Hypertensive heart disease with heart failure; I50.9 Heart failure, unspecified; E78.5 Hyperlipidemia, unspecified; G47.33 Obstructive sleep apnea (adult) (pediatric); E11.42 Type 2 diabetes mellitus with diabetic polyneuropathy; F41.9 Anxiety disorder, unspecified; F32.A Depression, unspecified; K76.0 Fatty (change of) liver, not elsewhere classified; D68.2 Hereditary deficiency of other clotting factors; F17.200 Nicotine dependence, unspecified, uncomplicated; Z88.8 Allergy status to other drugs, medicaments and biological substances; Z79.01 Long term (current) use of anticoagulants; Z79.899 Other long term (current) drug therapy; Z79.4 Long term (current) use of insulin; Z79.84 Long term (current) use of oral hypoglycemic drugs
CPT/HCPCS: 88305; 43239; 43249; J2003; J2704; C1726

== ENCOUNTER 2024-05-08 08:45 | Emergency (ER) | payer BC ==
[2024-05-08 09:03] VITALS: TEMP 98.3
--- NOTE | 2024-05-08 09:25 | ED ---
Extremity Problem HPI - General Chief complaint: Extremity Problem,Nontraumatic Stated complaint: rt leg swelling,cellulitis Time Seen by Provider: 05/08/24 08:53 Source: patient, family, RN notes reviewed Mode of arrival: wheelchair Limitations: no limitations - History of Present Illness Initial comments: 54-year-old male presents emergency department complaint of right leg pain, swelling redness. Patient states he just finished course antibiotics for cellulitis last couple days has had increasing swelling, discomfort and redness. Patient is concerned about possible DVT or infection. Patient is known diabetic. 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 Patient has any fever - Related Data Home Medications Medication Instructions Recorded Confirmed Latanoprost Ophth [Xalatan 0.005%] 1 drop BOTH EYES HS 01/23/14 04/21/24 Ferrous Sulfate [Iron (65 MG 325 mg PO BID 10/25/20 04/21/24 Elemental)] Omeprazole 20 mg PO DAILY 11/10/21 04/21/24 metFORMIN HCL 1,000 mg PO BID 06/03/22 04/21/24 Insulin Glargine,Hum.rec.anlog 15 units SQ BID 12/11/22 04/21/24 [Lantus Solostar Pen] lisinopriL [Zestril] 2.5 mg PO DAILY 12/11/22 04/21/24 Ergocalciferol [Vitamin D2 (1250 1,250 mcg PO Q14D 04/09/23 04/21/24 Mcg = 45612 Iu)] Furosemide [Lasix] 20 mg PO DAILY 04/09/23 04/21/24 Cyclobenzaprine [Flexeril] 10 mg PO BID PRN 07/14/23 04/21/24 Insulin Lispro [humaLOG Kwikpen] See Protocol SQ TID-W/MEALS 07/14/23 04/21/24 Patient Own Pump 0 bag 07/14/23 07/14/23 Escitalopram Oxalate [Lexapro] 10 mg PO DAILY 02/23/24 04/21/24 Loratadine [Claritin] 10 mg PO DAILY 02/23/24 04/21/24 Lubiprostone [Amitiza] 24 mcg PO BID 02/23/24 04/21/24 methocarbamoL [Robaxin] 1,500 mg PO Q8H PRN 02/23/24 04/21/24 polyethylene glycoL 3350 [Miralax] 17 gm PO DAILY 02/23/24 04/21/24 Albuterol Nebulized [Ventolin 2.5 mg INHALATION Q4H PRN 04/21/24 04/21/24 Nebulized] Amphetamine Sulfate [Evekeo] 20 mg PO DAILY 04/21/24 04/21/24 Ciprofloxacin HCl [Cipro] 500 mg PO Q8H 04/21/24 04/21/24 Fluticasone Propion/Salmeterol 1 inhalation PO BID PRN 04/21/24 04/21/24 [Advair 100-50 Diskus] hydroCHLOROthiazide 25 mg PO DAILY 04/21/24 04/21/24 Previous Rx's Medication Instructions Recorded Apixaban [Eliquis] 5 mg PO BID #1 tab 08/26/22 Magnesium Oxide [Mag-Ox] 400 mg PO DAILY tab 08/26/22 Acetaminophen Tab [Tylenol] 650 mg PO Q6HR PRN tab 07/21/23 Cephalexin [Keflex] 500 mg PO Q6HR #40 cap 05/08/24 Allergies Allergy/AdvReac Type Severity Reaction Status Date / Time adhesive Allergy Rash/Hives Verified 05/08/24 08:57 Review of Systems ROS Statement: Those systems with pertinent positive or pertinent negative responses have been documented in the HPI. ROS Other: All systems not noted in ROS Statement are negative. Past Medical History Past Medical History: Blood Disorder, Diabetes Mellitus, Deep Vein Thrombosis (DVT), GERD/Reflux, Hyperlipidemia, Hypertension, Musculoskeletal Disorder, Osteoarthritis (OA), Sleep Apnea/CPAP/BIPAP Additional Past Medical History / Comment(s): IDDM type II, neuropathy bilateral feet with R foot worse, charcot foot R/L, , gastroparesis, hiatal hernia, esophageal narrowing (scarring)/past dysphagia/has had dilations, factor V leiden, 2 DVT's L leg, another superficial blood clot L leg, chronic back pain/h as pain pump, DDD and bulging discs, legally blind L eye since , migraines, PVD, fatty liver, narcolepsy, bipap, on abx for cellulitis right leg draining with fara wrap applied Last Myocardial Infarction Date:: 11/07/21 History of Any Multi-Drug Resistant Organisms: MRSA, VRE Date of last positivie culture/infection: 08/17/22 MDRO Source:: Left Leg Past Surgical History: Orthopedic Surgery, Tonsillectomy Additional Past Surgical History / Comment(s): R foot/ankle surgery at [facility] with bone removal/hardware inserted, I&D L foot, pain pump insertion, colonoscopy, EGDs with dilations, UVPPP, eye surgery as an . 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 no blood transfusion reaction Past Psychological History: Anxiety, Depression Smoking Status: Never smoker Past Alcohol Use History: None Reported Past Drug Use History: None Reported - Past Family History Father Family Medical History: Cancer Additional Family Medical History / Comment(s): BLADDER CANCER Mother Family Medical History: CVA/TIA, Diabetes Mellitus, Myocardial Infarction ([place]) General Exam Limitations: no limitations General appearance: alert, in no apparent distress Head exam: Present: atraumatic, normocephalic, normal inspection Respiratory exam: Present: normal lung sounds bilaterally. Absent: respiratory distress, wheezes, rales, rhonchi, stridor Cardiovascular Exam: Present: regular rate, normal rhythm, normal heart sounds. Absent: systolic murmur, diastolic murmur, rubs, gallop, clicks Extremities exam: Present: other (Right lower extremity significant erythema, chronic skin changes no evidence of venous stasis, pulses are palpable prior left below-knee amputation) Course Vital Signs 05/08/24 05/08/24 08:57 10:49 Temperature 98.3 F Pulse Rate 71 72 Respiratory 18 20 Rate Blood Pressure 126/71 124/84 O2 Sat by Pulse 98 97 Oximetry Medical Decision Making - Medical Decision Making Was pt. sent in by a medical professional or institution (, PA, DOUGH BRAKER, urgent care, hospital, or halfway...) When possible be specific @ -No Did you speak to anyone other than the patient for history (EMS, parent, family, police, friend...)? What history was obtained from this source @ -No Did you review nursing and triage notes (agree or disagree)? Why? @ -I reviewed and agree with nursing and triage notes Were old charts reviewed (outside hosp., previous admission, EMS record, old EKG, old radiological studies, urgent care reports/EKG's, halfway records)? Report findings @ -No old charts were reviewed Differential Diagnosis (chest pain, altered mental status, abdominal pain women, abdominal pain men, vaginal bleeding, weakness, fever, dyspnea, syncope, headache, dizziness, GI bleed, back pain, seizure, CVA, palpatations, mental health, musculoskeletal)? @ -DVT, cellulitis, leg edema EKG interpreted by me (3pts min.). @ -None X-rays interpreted by me (1pt min.). @ -None done CT interpreted by me (1pt min.). @ -None done U/S interpreted by me (1pt. min.). @ -[Venous Doppler right leg negative for acute DVT. What testing was considered but not performed or refused? (CT, X-rays, U/S, labs)? Why? @ -None What meds were considered but not given or refused? Why? @ -None Did you discuss the management of the patient with other professionals (professionals i.e. , PA, DOUGH BRAKER, lab, RT, psych nurse, forensic social worker, field worker, teacher, hospital chief executive officer, watch case polisher)? Give summary @ -No Was smoking cessation discussed for >3mins.? @ -No Was critical care preformed (if so, how long)? @ -No Were there social determinants of health that impacted care today? How? (Homel essness, low income, unemployed, alcoholism, drug addiction, transportation, low edu. Level, literacy, decrease access to med. care, fdc, rehab)? @ -No Was there de-escalation of care discussed even if they declined (Discuss DNR or withdrawal of care, Hospice)? DNR status @ -No What co-morbidities impacted this encounter? (DM, HTN, Smoking, COPD, CAD, Cancer, CVA, ARF, Chemo, Hep., AIDS, mental health diagnosis, sleep apnea, morbid obesity)? @ -None Was patient admitted / discharged? Hospital course, mention meds given and route, prescriptions, significant lab abnormalities, going to OR and other pertinent info. @ -Discharge patient presented for concerns of DVT. Negative ultrasound, labor atory studies on markable. Patient has cellulitic changes will be started on oral antibiotics and close follow-up. Undiagnosed new problem with uncertain prognosis? @ -No Drug Therapy requiring intensive monitoring for toxicity (Heparin, Nitro, Insulin, Cardizem)? @ -No Were any procedures done? @ -No Diagnosis/symptom? @ -Right leg cellulitis Acute, or Chronic, or Acute on Chronic? @ -Acute Uncomplicated (without systemic symptoms) or Complicated (systemic symptoms)? @ -Uncomplicated Side effects of treatment? @ -No Exacerbation, Progression, or Severe Exacerbation? @ -No Poses a threat to life or bodily function? How? (Chest pain, [place], [place], pneumonia, PE, COPD, DKA, ARF, appy, cholecystitis, CVA, Diverticulitis, Homicidal, Suicidal, threat to staff... and all critical care pts) @ -No - Lab Data Result diagrams: 05/08/24 09:42 05/08/24 09:42 Lab Results 05/08/24 05/08/24 05/08/24 Range/Units 09:42 09:42 09:42 WBC 5.9 (3.8-10.6) k/uL RBC 3.29 L (4.30-5.90) m/uL Hgb 9.8 L (13.0-17.5) gm/dL Hct 28.4 L (39.0-53.0) % MCV 86.4 (80.0-100.0) fL MCH 29.7 (25.0-35.0) pg MCHC 34.3 (31.0-37.0) g/dL RDW 14.0 (11.5-15.5) % Plt Count 197 (150-450) k/uL MPV 8.1 Neutrophils % 63 % Lymphocytes % 22 % Monocytes % 8 % Eosinophils % 5 % Basophils % 1 % Neutrophils # 3.7 (1.3-7.7) k/uL Lymphocytes # 1.3 (1.0-4.8) k/uL Monocytes # 0.5 (0-1.0) k/uL Eosinophils # 0.3 (0-0.7) k/uL Basophils # 0.0 (0-0.2) k/uL Sodium 137 (137-145) mmol/L Potassium 4.1 (3.5-5.1) mmol/L Chloride 99 (98-107) mmol/L Carbon Dioxide 29 (22-30) mmol/L Anion Gap 9 mmol/L BUN 26 H (9-20) mg/dL Creatinine 1.20 (0.66-1.25) mg/dL Est GFR (CKD-EPI)AfAm 79 (>60 ml/min/1.73 sqM) Est GFR (CKD-EPI)NonAf 68 (>60 ml/min/1.73 sqM) Glucose 171 H (74-99) mg/dL Lactic Ac Sepsis Rflx Plasma Lactic Acid Ger 2.2 H* (0.7-2.0) mmol/L Calcium 8.8 (8.4-10.2) mg/dL Total Bilirubin 0.3 (0.2-1.3) mg/dL AST 21 (17-59) U/L ALT 18 (4-49) U/L Alkaline Phosphatase 140 H (38-126) U/L Total Protein 6.2 L (6.3-8.2) g/dL Albumin 3.4 L (3.5-5.0) g/dL 05/08/24 Range/Units 10:12 WBC (3.8-10.6) k/uL RBC (4.30-5.90) m/uL Hgb (13.0-17.5) gm/dL Hct (39.0-53.0) % MCV (80.0-100.0) fL MCH (25.0-35.0) pg MCHC (31.0-37.0) g/dL RDW (11.5-15.5) % Plt Count (150-450) k/uL MPV Neutrophils % % Lymphocytes % % Monocytes % % Eosinophils % % Basophils % % Neutrophils # (1.3-7.7) k/uL Lymphocytes # (1.0-4.8) k/uL Monocytes # (0-1.0) k/uL Eosinophils # (0-0.7) k/uL Basophils # (0-0.2) k/uL Sodium (137-145) mmol/L Potassium (3.5-5.1) mmol/L Chloride (98-107) mmol/L Carbon Dioxide (22-30) mmol/L Anion Gap mmol/L BUN (9-20) mg/dL Creatinine (0.66-1.25) mg/dL Est GFR (CKD-EPI)AfAm (>60 ml/min/1.73 sqM) Est GFR (CKD-EPI)NonAf (>60 ml/min/1.73 sqM) Glucose (74-99) mg/dL Lactic Ac Sepsis Rflx Y Plasma Lactic Acid Ger (0.7-2.0) mmol/L Calcium (8.4-10.2) mg/dL Total Bilirubin (0.2-1.3) mg/dL AST (17-59) U/L ALT (4-49) U/L Alkaline Phosphatase (38-126) U/L Total Protein (6.3-8.2) g/dL Albumin (3.5-5.0) g/dL Disposition Clinical Impression: Cellulitis of right leg Disposition: HOME SELF-CARE Condition: Stable Instructions (If sedation given, give patient instructions): Cellulitis (ED) Additional Instructions: Please return to the Emergency Department if symptoms worsen or any other concerns. Prescriptions: Cephalexin [Keflex] 500 mg PO Q6HR #40 cap Is patient prescribed a controlled substance at d/c from ED?: No Referrals: Dl Waggoner MD [Primary Care Provider] - 1-2 days Time of Disposition: 10:33
[2024-05-08 09:56] LABS: Basophils % (A) 1 %; Eosinophils # (A) 0.3 k/uL (0-0.7); Eosinophils % (A) 5 %; HCT 28.4 % (39.0-53.0); HGB 9.8 gm/dL (13.0-17.5); Lymphocytes # (A) 1.3 k/uL (1.0-4.8); Lymphocytes % (A) 22 %; MCH 29.7 pg (25.0-35.0); MCHC 34.3 g/dL (31.0-37.0); MCV 86.4 fL (80.0-100.0); Mean Platelet Volume 8.1; Monocytes # (A) 0.5 k/uL (0-1.0); Monocytes % (A) 8 %; Neutrophils # (A) 3.7 k/uL (1.3-7.7); Neutrophils % (A) 63 %; Platelet Count 197 k/uL (150-450); RBC 3.29 m/uL (4.30-5.90); WBC 5.9 k/uL (3.8-10.6)
--- NOTE | 2024-05-08 10:10 | US ---
EXAMINATION TYPE: US venous doppler duplex LE RT DATE OF EXAM: 05/08/2024 10:04 AM COMPARISON: NONE CLINICAL INDICATION: Male, 54 years old with history of pain; Edema, Pain limitations due to pitting edema. TECHNIQUE: The lower extremity deep venous system is examined utilizing real time linear array sonog errol with graded compression, color doppler sonography, and spectral doppler. SIDE PERFORMED: Right FINDINGS: VESSELS IMAGED: Common Femoral Vein Deep Femoral Vein Greater Saphenous Vein * Femoral Vein Popliteal Vein Small Saphenous Vein * Right Leg: Negative for DVT, Color Doppler imaging shows patency of the vessels. Spectral waveforms are within normal limits. IMPRESSION: No ultrasound evidence for deep venous thrombosis. [facility], , 05/08/2024 10:08 AM
[2024-05-08 10:11] LABS: ALT 18 U/L (4-49); AST 21 U/L (17-59); African American GFR (CKD) 79 (>60 ml/min/1.73 sqM); Albumin 3.4 g/dL (3.5-5.0); Alkaline Phosphatase 140 U/L (38-126); Anion Gap 9 mmol/L; Blood Urea Nitrogen 26 mg/dL (9-20); Calcium 8.8 mg/dL (8.4-10.2); Carbon Dioxide 29 mmol/L (22-30); Chloride 99 mmol/L (98-107); Glucose 171 mg/dL (74-99); Non-African American GFR(CKD) 68 (>60 ml/min/1.73 sqM); Potassium 4.1 mmol/L (3.5-5.1); Sodium 137 mmol/L (137-145); Total Bilirubin 0.3 mg/dL (0.2-1.3); Total Protein 6.2 g/dL (6.3-8.2)
[2024-05-08] MEDS: cefTRIAXone IN SWFI 1,000 MG/10 ML SYRINGE IVP STA (10:40)
[2024-05-08 10:51] VITALS: BP 124/84; PULSE 72; RESP 20
== END 2024-05-08 10:55 | disposition home or self-care (01) ==
LOC: EC 08:45
DX: L03.115 Cellulitis of right lower limb (principal); Z91.09 Other allergy status, other than to drugs and biological substances
CPT/HCPCS: 36415; 80053; 83605; 85025; 93971; 99284; 96374; J0696

== ENCOUNTER 2024-05-20 10:49 | Inpatient (IN) | payer BC, OTHER ==
--- NOTE | 2024-05-20 11:36 | ED ---
Skin/Abscess/FB HPI - General Chief complaint: Skin/Abscess/Foreign Body Stated complaint: r leg swollen Time Seen by Provider: 05/20/24 11:04 Source: patient, family, RN notes reviewed Mode of arrival: wheelchair Limitations: physical limitation - History of Present Illness Initial comments: This is a 54-year-old male with history of factor V Leiden, DVT, DM sent by PCP presenting with for RLE swelling and erythema x 3 to 4 weeks. Patient states he was sent by his primary care following antibiotic failure of both Keflex and Bactrim DS which were taken to completion. Patient endorses weeping/blisters of lower extremity with no sensation change or pallor. Patient endorses FROM of RLE, restricted only by edema. Endorses receiving RLE Doppler ultrasound 2 weeks ago in this ER with no discovery of DVT at the time before being placed on Keflex. Denies fever, chills, chest pain, dyspnea, pain with inspiration, abdominal pain, N/V/D. MD complaint: discoloration Onset/Timin -: days(s) Location: RLE Severity scale (1-10): 6 Quality: other (Pressure) Consistency: constant Improves with: immobilization Worsens with: palpation, movement Context: none Associated symptoms: denies other symptoms Treatments Prior to Arrival: bandages, antibiotic (Keflex, Bactrim DS) - Related Data Home Medications Medication Instructions Recorded Confirmed Latanoprost Ophth [Xalatan 0.005%] 1 drop BOTH EYES HS 01/23/14 05/20/24 Ferrous Sulfate [Iron (65 MG 325 mg PO BID 10/25/20 05/20/24 Elemental)] Omeprazole 20 mg PO DAILY 11/10/21 05/20/24 metFORMIN HCL 1,000 mg PO BID 06/03/22 05/20/24 Insulin Glargine,Hum.rec.anlog 15 units SQ BID 12/11/22 05/20/24 [Lantus Solostar Pen] lisinopriL [Zestril] 2.5 mg PO HS 12/11/22 05/20/24 Ergocalciferol [Vitamin D2 (1250 1,250 mcg PO Q14D 04/09/23 05/20/24 Mcg = 01400 Iu)] Cyclobenzaprine [Flexeril] 10 mg PO BID 07/14/23 05/20/24 Insulin Lispro [humaLOG Kwikpen] See Protocol SQ TID-W/MEALS 07/14/23 05/20/24 Patient Own Pump 0 bag 07/14/23 07/14/23 Escitalopram Oxalate [Lexapro] 10 mg PO DAILY 02/23/24 05/20/24 Lubiprostone [Amitiza] 24 mcg PO BID-W/MEALS 02/23/24 05/20/24 methocarbamoL [Robaxin] 500 mg PO Q8H PRN 02/23/24 05/20/24 polyethylene glycoL 3350 [Miralax] 17 gm PO DAILY 02/23/24 05/20/24 hydroCHLOROthiazide 25 mg PO DAILY 04/21/24 05/20/24 Albuterol Sulfate [Ventolin HFA] 2 puff INHALATION RT-QID PRN 05/20/24 05/20/24 Atorvastatin [Lipitor] 80 mg PO HS 05/20/24 05/20/24 Dextroamphetamine/Amphetamine 20 mg PO DAILY 05/20/24 05/20/24 [Adderall Xr 20 mg Capsule] Dicyclomine [Bentyl] 10 mg PO Q6H PRN 05/20/24 05/20/24 Famotidine [Pepcid] 20 mg PO HS 05/20/24 05/20/24 Fluticasone Propion/Salmeterol 1 puff INHALATION DIRECTED 05/20/24 05/20/24 [Advair 250-50 Diskus] Furosemide [Lasix] 20 mg PO DAILY 05/20/24 05/20/24 Gabapentin [Neurontin] 100 mg PO BID 05/20/24 05/20/24 Ipratropium-Albuterol Nebulize 3 ml INHALATION DIRECTED 05/20/24 05/20/24 [Duoneb 0.5 mg-3 mg/3 ml Soln] Lactulose [Constulose] 20 gm PO DAILY PRN 05/20/24 05/20/24 Magnesium Citrate 296 ml PO ONCE PRN 05/20/24 05/20/24 Metoclopramide [Reglan] 10 mg PO DIRECTED PRN 05/20/24 05/20/24 Previous Rx's Medication Instructions Recorded Apixaban [Eliquis] 5 mg PO BID #1 tab 08/26/22 Magnesium Oxide [Mag-Ox] 400 mg PO DAILY tab 08/26/22 Allergies Allergy/AdvReac Type Severity Reaction Status Date / Time adhesive Allergy Rash/Hives Verified 05/20/24 11:07 Review of Systems ROS Statement: Those systems with pertinent positive or pertinent negative responses have been documented in the HPI. ROS Other: All systems not noted in ROS Statement are negative. Past Medical History Past Medical History: Blood Disorder, Diabetes Mellitus, Deep Vein Thrombosis (DVT), GERD/Reflux, Hyperlipidemia, Hypertension, Musculoskeletal Disorder, Osteoarthritis (OA), Sleep Apnea/CPAP/BIPAP Additional Past Medical History / Comment(s): IDDM type II, neuropathy bilateral feet with R foot worse, charcot foot R/L, , gastroparesis, hiatal hernia, esophageal narrowing (scarring)/past dysphagia/has had dilations, factor V leiden, 2 DVT's L leg, another superficial blood clot L leg, chronic back lucho n/has pain pump, DDD and bulging discs, legally blind L eye since , migraines, PVD, fatty liver, narcolepsy, bipap, on abx for cellulitis right leg draining with fara wrap applied Last Myocardial Infarction Date:: 11/07/21 History of Any Multi-Drug Resistant Organisms: MRSA, VRE Date of last positivie culture/infection: 08/17/22 MDRO Source:: Left Leg Past Surgical History: Orthopedic Surgery, Tonsillectomy Additional Past Surgical History / Comment(s): R foot/ankle surgery at [facility] with bone removal/hardware inserted, I&D L foot, pain pump insertion, colonoscopy, EGDs with dilations, UVPPP, eye surgery as an infant. 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 no blood transfusion reaction Past Psychological History: Anxiety, Depression Smoking Status: Never smoker Past Alcohol Use History: None Reported Past Drug Use History: None Reported - Past Family History Father Family Medical History: Cancer Additional Family Medical History / Comment(s): BLADDER CANCER Mother Family Medical History: CVA/TIA, Diabetes Mellitus, Myocardial Infarction ([place]) General Exam Limitations: physical limitation General appearance: alert, in no apparent distress Head exam: Present: atraumatic, normocephalic, normal inspection Eye exam: Present: normal appearance, PERRL, EOMI. Absent: scleral icterus, conjunctival injection, periorbital swelling ENT exam: Present: normal exam, mucous membranes moist Neck exam: Present: normal inspection. Absent: tenderness, meningismus, lymphadenopathy Respiratory exam: Present: normal lung sounds bilaterally. Absent: respiratory distress, wheezes, rales, rhonchi, stridor Cardiovascular Exam: Present: regular rate, normal rhythm, normal heart sounds. Absent: systolic murmur, diastolic murmur, rubs, gallop, clicks GI/Abdominal exam: Present: soft, normal bowel sounds. Absent: distended, tenderness, guarding, rebound, rigid Extremities exam: Present: tenderness (Diffuse tenderness of RLE of foot and calf), normal capillary refill, pedal edema (Significant RLE edema and erythema with weeping extending distally from knee), calf tenderness (Positive right Homans' sign), other (Distal neurovascular and motor function intact. Left AKA noted). Absent: joint swelling Back exam: Present: normal inspection Neurological exam: Present: alert, oriented X3, CN II-XII intact Psychiatric exam: Present: normal affect, normal mood Skin exam: Present: warm, dry, intact, normal color. Absent: rash Course Vital Signs 05/20/24 05/20/24 05/20/24 11:07 12:43 15:02 Temperature 98.5 F Pulse Rate 77 70 65 Respiratory 20 20 18 Rate Blood Pressure 117/63 115/55 103/79 O2 Sat by Pulse 97 98 98 Oximetry Medical Decision Making - Medical Decision Making Was pt. sent in by a medical professional or institution (, PA, EXECUTIVE COMPENSATION ANALYST, urgent care, hospital, or fdc...) When possible be specific @ -No Did you speak to anyone other than the patient for history (EMS, parent, family, police, friend...)? What history was obtained from this source @ -No Did you review nursing and triage notes (agree or disagree)? Why? @ -I reviewed and agree with nursing and triage notes Were old charts reviewed (outside hosp., previous admission, EMS record, old EKG, old radiological studies, urgent care reports/EKG's, fdc records)? Report findings @ -No old charts were reviewed Differential Diagnosis (chest pain, altered mental status, abdominal pain women, abdominal pain men, vaginal bleeding, weakness, fever, dyspnea, syncope, heada robson, dizziness, GI bleed, back pain, seizure, CVA, palpatations, mental health, musculoskeletal)? @ -DVT, cellulitis, PVD, PAD, arterial occlusion, erysipelas, CHF EKG interpreted by me (3pts min.). @ -Sinus rhythm with moderate intraventricular conduction delay. Negative ST deviation or T wave inversion. Ventricular rate 73 bpm, MARGAUX 187 ms, QRS duration 113 ms, QTc 422 ms. X-rays interpreted by me (1pt min.). @ -CXR shows no acute definitive cardiopulmonary disease. Right tibia/fibula x- ray shows diffuse subcutaneous edema with no focal osseous erosion or periosteal reaction. CT interpreted by me (1pt min.). @ -None done U/S interpreted by me (1pt. min.). @ -RLE venous Doppler shows no evidence of DVT. What testing was considered but not performed or refused? (CT, X-rays, U/S, labs)? Why? @ -None What meds were considered but not given or refused? Why? @ -None Did you discuss the management of the patient with other professionals (vamshi lim i.e. , PA, EXECUTIVE COMPENSATION ANALYST, lab, RT, psych nurse, social services aide, plastic fixture builder, teacher, correctional officer sergeant, director case)? Give summary @ -Spoke to Dr. Jordan from [facility] for patient admission. Was smoking cessation discussed for >3mins.? @ -No Was critical care preformed (if so, how long)? @ -No Were there social determinants of health that impacted care today? How? (Homelessness, low income, unemployed, alcoholism, drug addiction, transportation, low edu. Level, literacy, decrease access to med. care, longterm, rehab)? @ -No Was there de-escalation of care discussed even if they declined (Discuss DNR or withdrawal of care, Hospice)? DNR status @ -No What co-morbidities impacted this encounter? (DM, HTN, Smoking, COPD, CAD, Cancer, CVA, ARF, Chemo, Hep., AIDS, mental health diagnosis, sleep apnea, morbid obesity)? @ -DM, factor V Leiden, obesity Was patient admitted / discharged? Hospital course, mention meds given and route, prescriptions, significant lab abnormalities, going to OR and other pertinent info. @ -Lab work shows NARENDRA with elevated BUN and creatinine. Initial lactic acid 3.4. Troponin and BNP unremarkable. CXR shows no acute definitive cardiopulmonary disease. RLE venous Doppler shows no evidence of DVT. Right tibia/fibula x-ray shows diffuse subcutaneous edema with no focal osseous erosion or periosteal reaction. Patient initially given IV normal saline followed by NS bolus. Patient provided IV Zosyn and vancomycin for suspected recalcitrant cellulitis. Spoke to Dr. Jordan from [facility] for patient admission. Discussed patient with Dr. Regalado. Undiagnosed new problem with uncertain prognosis? @ -No Drug Therapy requiring intensive monitoring for toxicity (Heparin, Nitro, Insulin, Cardizem)? @ -No Were any procedures done? @ -No Diagnosis/symptom? @ -RLE cellulitis Acute, or Chronic, or Acute on Chronic? @ -Acute Uncomplicated (without systemic symptoms) or Complicated (systemic symptoms)? @ -Complicated Side effects of treatment? @ -No Exacerbation, Progression, or Severe Exacerbation? @ -No Poses a threat to life or bodily function? How? (Chest pain, [place], [place], pneumonia, PE, COPD, DKA, ARF, appy, cholecystitis, CVA, Diverticulitis, Homicidal, Suicidal, threat to staff... and all critical care pts) @ -Cellulitis, causing sepsis and endorgan damage - Lab Data Result diagrams: 05/20/24 11:41 05/20/24 11:41 Lab Results 05/20/24 05/20/24 05/20/24 Range/Units 11:41 11:41 11:41 WBC 6.2 (3.8-10.6) k/uL RBC 3.21 L (4.30-5.90) m/uL Hgb 9.0 L (13.0-17.5) gm/dL Hct 27.6 L (39.0-53.0) % MCV 85.9 (80.0-100.0) fL MCH 28.0 (25.0-35.0) pg MCHC 32.6 (31.0-37.0) g/dL RDW 14.4 (11.5-15.5) % Plt Count 254 (150-450) k/uL MPV 7.9 Neutrophils % 66 % Lymphocytes % 20 % Monocytes % 7 % Eosinophils % 5 % Basophils % 1 % Neutrophils # 4.1 (1.3-7.7) k/uL Lymphocytes # 1.3 (1.0-4.8) k/uL Monocytes # 0.4 (0-1.0) k/uL Eosinophils # 0.3 (0-0.7) k/uL Basophils # 0.0 (0-0.2) k/uL PT 10.9 (10.0-12.5) sec INR 1.0 (<1.2) APTT 26.2 (22.0-30.0) sec Sodium 135 L (137-145) mmol/L Potassium 4.8 (3.5-5.1) mmol/L Chloride 95 L (98-107) mmol/L Carbon Dioxide 30 (22-30) mmol/L Anion Gap 10 mmol/L BUN 37 H (9-20) mg/dL Creatinine 2.03 H (0.66-1.25) mg/dL Est GFR (CKD-EPI)AfAm 42 (>60 ml/min/1.73 sqM) Est GFR (CKD-EPI)NonAf 36 (>60 ml/min/1.73 sqM) Glucose 163 H (74-99) mg/dL Lactic Ac Sepsis Rflx Plasma Lactic Acid Ger (0.7-2.0) mmol/L Calcium 9.2 (8.4-10.2) mg/dL Magnesium 1.5 L (1.6-2.3) mg/dL Total Bilirubin 0.4 (0.2-1.3) mg/dL AST 25 (17-59) U/L ALT 19 (4-49) U/L Alkaline Phosphatase 133 H (38-126) U/L Troponin I (0.000-0.034) ng/mL NT-Pro-B Natriuret Pep 645 pg/mL Total Protein 6.4 (6.3-8.2) g/dL Albumin 3.5 (3.5-5.0) g/dL 05/20/24 05/20/24 05/20/24 Range/Units 11:41 11:41 12:18 WBC (3.8-10.6) k/uL RBC (4.30-5.90) m/uL Hgb (13.0-17.5) gm/dL Hct (39.0-53.0) % MCV (80.0-100.0) fL MCH (25.0-35.0) pg MCHC (31.0-37.0) g/dL RDW (11.5-15.5) % Plt Count (150-450) k/uL MPV Neutrophils % % Lymphocytes % % Monocytes % % Eosinophils % % Basophils % % Neutrophils # (1.3-7.7) k/uL Lymphocytes # (1.0-4.8) k/uL Monocytes # (0-1.0) k/uL Eosinophils # (0-0.7) k/uL Basophils # (0-0.2) k/uL PT (10.0-12.5) sec INR (<1.2) APTT (22.0-30.0) sec Sodium (137-145) mmol/L Potassium (3.5-5.1) mmol/L Chloride (98-107) mmol/L Carbon Dioxide (22-30) mmol/L Anion Gap mmol/L BUN (9-20) mg/dL Creatinine (0.66-1.25) mg/dL Est GFR (CKD-EPI)AfAm (>60 ml/min/1.73 sqM) Est GFR (CKD-EPI)NonAf (>60 ml/min/1.73 sqM) Glucose (74-99) mg/dL Lactic Ac Sepsis Rflx Y Plasma Lactic Acid Ger 3.4 H* (0.7-2.0) mmol/L Calcium (8.4-10.2) mg/dL Magnesium (1.6-2.3) mg/dL Total Bilirubin (0.2-1.3) mg/dL AST (17-59) U/L ALT (4-49) U/L Alkaline Phosphatase (38-126) U/L Troponin I <0.012 (0.000-0.034) ng/mL NT-Pro-B Natriuret Pep pg/mL Total Protein (6.3-8.2) g/dL Albumin (3.5-5.0) g/dL Disposition Clinical Impression: Cellulitis of leg, right, NARENDRA (acute kidney injury) Disposition: ADMITTED IP TO THIS HOSP Condition: Good Is patient prescribed a controlled substance at d/c from ED?: No Time of Disposition: 14:00 Decision Date: 05/20/24 Decision Time: 14:00
[2024-05-20 11:52] LABS: Basophils % (A) 1 %; Eosinophils # (A) 0.3 k/uL (0-0.7); Eosinophils % (A) 5 %; HCT 27.6 % (39.0-53.0); Lymphocytes # (A) 1.3 k/uL (1.0-4.8); Lymphocytes % (A) 20 %; MCHC 32.6 g/dL (31.0-37.0); MCV 85.9 fL (80.0-100.0); Mean Platelet Volume 7.9; Monocytes # (A) 0.4 k/uL (0-1.0); Monocytes % (A) 7 %; Neutrophils # (A) 4.1 k/uL (1.3-7.7); Neutrophils % (A) 66 %; Platelet Count 254 k/uL (150-450); RBC 3.21 m/uL (4.30-5.90); RDW 14.4 % (11.5-15.5); WBC 6.2 k/uL (3.8-10.6)
[2024-05-20] MEDS: SODIUM CHLORIDE 0.9% 1,000 ML IV STA ×2 (11:53→13:37)
--- NOTE | 2024-05-20 11:58 | XR ---
Chest, 2 view. HISTORY: Cough. COMPARISON: TECHNIQUE: PA and lateral views the chest are obtained. FINDINGS: The exam is limited by the suboptimal inspiration and patient's body habitus. The lungs are clear and there is no consolidative or interstitial opacity. There is no pleural effusion or pneumothorax. The heart, pulmonary vasculature, mediastinum and sarahy appear normal. The osseous structures are intact. IMPRESSION: Limited exam as described above. No definite acute cardiopulmonary disease and no interval change. [facility], , 05/20/2024 11:56 AM
[2024-05-20 12:07] LABS: Partial Thromboplastin Time 26.2 sec (22.0-30.0); Prothrombin Time 10.9 sec (10.0-12.5)
--- NOTE | 2024-05-20 12:41 | US ---
EXAMINATION TYPE: US venous doppler duplex LE RT DATE OF EXAM: 05/20/2024 12:22 PM COMPARISON: 05/08/2024 CLINICAL INDICATION: Male, 54 years old with history of pain; Hx Factor 5 and multiple LLE DVT; On th inners; cellulitis with treatment x 3 weeks, worsening over last few days. , Pain TECHNIQUE: The lower extremity deep venous system is examined utilizing real time linear array sonog errol with graded compression, color doppler sonography, and spectral doppler. SIDE PERFORMED: Right FINDINGS: VESSELS IMAGED: Common Femoral Vein Deep Femoral Vein Greater Saphenous Vein * Femoral Vein Popliteal Vein Small Saphenous Vein * Proximal Calf Veins (* superficial vessels) Difficult exam due to patient body habitus, swelling, and cellulitis. The deep venous system of the right lower extremity from the common femoral vein to the proximal calf veins is patent and compressible with augmentable flow with normal waveforms. IMPRESSION: No evidence of right lower extremity DVT from the common femoral vein to the proximal calf veins [facility], Workstation: [email or web address] 05/20/2024 12:38 PM
[2024-05-20 13:14] LABS: ALT 19 U/L (4-49); AST 25 U/L (17-59); African American GFR (CKD) 42 (>60 ml/min/1.73 sqM); Albumin 3.5 g/dL (3.5-5.0); Alkaline Phosphatase 133 U/L (38-126); Anion Gap 10 mmol/L; Blood Urea Nitrogen 37 mg/dL (9-20); Calcium 9.2 mg/dL (8.4-10.2); Carbon Dioxide 30 mmol/L (22-30); Chloride 95 mmol/L (98-107); Glucose 163 mg/dL (74-99); Magnesium 1.5 mg/dL (1.6-2.3); Non-African American GFR(CKD) 36 (>60 ml/min/1.73 sqM); Potassium 4.8 mmol/L (3.5-5.1); Sodium 135 mmol/L (137-145); Total Bilirubin 0.4 mg/dL (0.2-1.3); Total Protein 6.4 g/dL (6.3-8.2)
[2024-05-20 13:22] LABS: NT-Pro-B-Type Natriuretic Pept 645 pg/mL
[2024-05-20] MEDS ORDERED: NALOXONE 0.4 MG/ML 1 ML VIAL IV PRN (14:02)
[2024-05-20] MEDS: VANCOMYCIN 1,000 MG in SODIUM CHLORIDE 0.9% 250 ML IVPB STA (14:03)
[2024-05-20] MEDS ORDERED: VANCOMYCIN IV PER PHARMACY 1 EACH MISC MISCELLANE PRN (14:13)
[2024-05-20] MEDS ORDERED: VANCOMYCIN 1,000 MG in SODIUM CHLORIDE 0.9% 250 ML IVPB SCH (14:15)
[2024-05-20] MEDS: PIPERACILLIN-TAZOBACTAM 3.375 GM in SODIUM CHLORIDE 0.9% 100 ML IVPB STA (14:40)
[2024-05-20] MEDS: VANCOMYCIN 1,750 MG in SODIUM CHLORIDE 0.9% 500 ML 500 ML IVPB STA (15:07)
--- NOTE | 2024-05-20 15:26 | XR ---
EXAMINATION TYPE: XR tibia fibula RT DATE OF EXAM: 05/20/2024 3:17 PM COMPARISON: Previous radiograph 01/31/2021. CLINICAL INDICATION: Male, 54 years old with history of Cellulitis; [facility] TECHNIQUE: XR tibia fibula RT; examined in AP and lateral projections. FINDINGS: Diffuse subcutaneous swelling/edema. Osseous structures mildly demineralized. Mild compartm ental degenerative arthritis in the partially visualized right knee. Thank you for body. Previous ORIF of the right ankle. Tibiotalar joint and talar dome is unremarkable . No focal osseous erosion or aggressive periosteal reaction. IMPRESSION: No acute osseous abnormality. [facility], , 05/20/2024 3:24 PM
[2024-05-20] MEDS: SODIUM CHLORIDE 0.9% 1,000 ML IV SCH (15:48)
--- NOTE | 2024-05-20 16:33 | P.HPIM ---
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 Presented to the emergency department for evaluation of right lower extremity cellulitis as directed by his PCP after failing outpatient treatment. Patient has been under treatment for right lower extremity cellulitis for 3 weeks. Patient reports he completed 2 weeks of oral Keflex and after no improvement and his PCP started him on Bactrim x 10 days and the redness, swelling, and increased warmth in his right lower extremity continued to worsen. Patient reports significant swelling, pain, redness, and seepage of clear to yellow fluid from lower extremity. Patient reports the swelling and pain continued to worsen restricting his ability to lift or bend his leg. Patient reports he did have a Doppler to rule out a blood clot prior to beginning his antibiotic course 3 weeks ago. He denies experiencing any fevers, chills, diaphoresis, headache, lightheadedness, dizziness, chest pain, palpitations, shortness of breath, cough or congestion, nausea, or vomiting. Upon arrival to our facility, patient underwent evaluation in the emergency department. Vital signs upon arrival show blood pressure 117/63, heart rate 77, respiratory rate 20, temp 98.5 F, and SpO2 of 97% on 2 L O2. EKG was completed showing normal sinus rhythm at 73 bpm. Chest x-ray was completed in the emergency department negative for acute cardiopulmonary process. Right lower extremity venous Doppler completed Negative for DVT. X-ray right tibia and fibula was negative showing no acute osseous abnormality. Labs completed and reviewed. CBC showing normocytic anemia with hemoglobin of 9.0 (chronic and at baseline) coagulation profile normal findings. BMP showing an acute kidney injury with BUN of 37, creatinine of 2.03, and GFR of 36 baseline creatinine of 1.2. Magnesium was low at 1.5. Liver profile showing elevated alkaline phosphatase of 133 otherwise normal findings. Troponin was negative at less than 0.012 and proBNP was 645. Patient was admitted under our services with consultation to infectious disease secondary to failing outpatient treatment for right lower extremity cellulitis. Review of systems: Pertinent positives and negatives as discussed in HPI, a complete review of systems was performed and all other systems are negative. Physical exam: Vital signs reviewed and stable. General: Nontoxic, no distress and appears stated age. Derm: Skin warm and dry, normal coloration for ethnicity. Head: Atraumatic, normocephalic and symmetric. Eyes: Legally blind in left eye Mouth: no lip lesions, mucus membranes moist Cardiovascular: regular rate and rhythm with normal S1S2, no murmur noted. Lungs: Respirations even, regular, and unlabored on room air. Lungs CTA bilaterally, no rhonchi, no rales, no wheezing, and no accessory muscle usage. Abdominal: soft, nontender to palpation, no guarding, no appreciable organomegaly Ext: No gross muscle atrophy, no edema, no contractures. Patient with left BKA (has prosthesis at bedside). Right lower extremity with moderate edema, erythema, increased warmth and excoriation extending from distal toes up into the distal thigh. Neuro: Speech clear, face symmetrical and CN II-XII grossly intact with no noted focal neuro deficits Psych: Alert and oriented to person, place, time, and situation. Appropriate and pleasant affect. Assessment and Plan of Care: Right lower extremity cellulitis, failed outpatient treatment Lactic acidosis -Patient treated outpatient for right lower extremity cellulitis with reports of Keflex x 2 weeks and Bactrim x 10 days unsuccessfully. -IV antibiotics with Unasyn 3 g every 8 hours and vancomycin pharmacy to dose due to renal function. Monitor renal function and vancomycin trough closely. -Consult infectious disease, appreciate recommendations -Continue symptomatic care and pain management. Acute kidney injury on CKD stage IIIa -Acute kidney injury suspect to be secondary to oral antibiotic Bactrim. Hold nephrotoxic medications at this time including lisinopril, Lasix, h ydrochlorothiazide and Bactrim. -Continue gentle IV fluid hydration with 0.9% normal saline at 75 cc/h -Continue close monitoring with repeat a.m. labs, monitor for resolution. -Nephrology consulted, appreciate recommendations -Bladder scan as needed to monitor for postvoid residual/retention -Follow-up on urinalysis results once available. Hypomagnesemia -Magnesium 1.5. Orders placed for magnesium sulfate 2 g IVPB x 1 dose. Will continue to monitor with repeat a.m. labs. Insulin-dependent diabetes mellitus with hyperglycemia -Patient placed on glycemic protocol with NovoLog sliding scale and to continue Levemir 15 units twice daily. Obstructive sleep apnea CPAP dependent nightly -Continue CPAP nightly and while napping. Anxiety and depression -Continue daily medication regimen with Lexapro 10 mg daily. Chronic back pain -Patient has morphine implanted pump in place, to continue with use pharmacy updating med rec. -Continue Neurontin 100 mg twice daily. Data and imaging reviewed: As stated above in HPI The patient is admitted with an anticipated greater than 2 midnight stay for evaluation of right lower extremity cellulitis, failing outpatient treatment. CODE STATUS: Full code DVT prophylaxis: Eliquis Anticipated discharge date: Pending clinical course Anticipated discharge place: Home Patient was seen independently by Nurse Practitioner. This document was prepared using [employer] dictation software. Please allow for errors in strings teacher while rare they do occur. Rojelio Araujo NP rendered care for this patient independently, reviewed the findings and plan as documented in the note above and agree with plan. I did not physically speak with or examine the patient on this date. Past Medical History Past Medical History: Blood Disorder, Diabetes Mellitus, Deep Vein Thrombosis (DVT), GERD/Reflux, Hyperlipidemia, Hypertension, Musculoskeletal Disorder, Oste oarthritis (OA), Sleep Apnea/CPAP/BIPAP Additional Past Medical History / Comment(s): IDDM type II, neuropathy bilateral feet with R foot worse, charcot foot R/L, , gastroparesis, hiatal hernia, esophageal narrowing (scarring)/past dysphagia/has had dilations, factor V leid en, 2 DVT's L leg, another superficial blood clot L leg, chronic back pain/has pain pump, DDD and bulging discs, legally blind L eye since , migraines, PVD, fatty liver, narcolepsy, bipap, on abx for cellulitis right leg draining with fara wrap applied Last Myocardial Infarction Date:: 11/07/21 History of Any Multi-Drug Resistant Organisms: MRSA, VRE Date of last positivie culture/infection: 08/17/22 MDRO Source:: Left Leg Past Surgical History: Orthopedic Surgery, Tonsillectomy Additional Past Surgical History / Comment(s): R foot/ankle surgery at [facility] with bone removal/hardware inserted, I&D L foot, pain pump insertion, colonoscopy, EGDs with dilations, UVPPP, eye surgery as an . 09/13/23 BKA, left leg Past Anesthesia/Blood Transfusion Reactions: Family History of Problems w/ Anesthesia Additional Past Anesthesia/Blood Transfusion Reaction / Comment(s): STATES "MOTHER CRASHES" "passes out"-with anesthesia,"needs to have a sock drier dose". no blood transfusion reaction Past Psychological History: Anxiety, Depression Smoking Status: Never smoker Past Alcohol Use History: None Reported Past Drug Use History: None Reported - Past Family History Father Family Medical History: Cancer Additional Family Medical History / Comment(s): BLADDER CANCER Mother Family Medical History: CVA/TIA, Diabetes Mellitus, Myocardial Infarction (ME) Medications and Allergies Home Medications Medication Instructions Recorded Confirmed Type Latanoprost Ophth [Xalatan 0.005%] 1 drop BOTH EYES HS 01/23/14 05/20/24 History Ferrous Sulfate [Iron (65 MG 325 mg PO BID 10/25/20 05/20/24 History Elemental)] Omeprazole 20 mg PO DAILY 11/10/21 05/20/24 History metFORMIN HCL 1,000 mg PO BID 06/03/22 05/20/24 History Apixaban [Eliquis] 5 mg PO BID #1 tab 08/26/22 05/20/24 Rx Magnesium Oxide [Mag-Ox] 400 mg PO DAILY tab 08/26/22 05/20/24 Rx Insulin Glargine,Hum.rec.anlog 15 units SQ BID 12/11/22 05/20/24 History [Lantus Solostar Pen] lisinopriL [Zestril] 2.5 mg PO HS 12/11/22 05/20/24 History Ergocalciferol [Vitamin D2 (1250 1,250 mcg PO Q14D 04/09/23 05/20/24 History Mcg = 38640 Iu)] Cyclobenzaprine [Flexeril] 10 mg PO BID 07/14/23 05/20/24 History Insulin Lispro [humaLOG Kwikpen] See Protocol SQ TID-W/MEALS 07/14/23 05/20/24 History Patient Own Pump 0 bag 07/14/23 07/14/23 History Escitalopram Oxalate [Lexapro] 10 mg PO DAILY 02/23/24 05/20/24 History Lubiprostone [Amitiza] 24 mcg PO BID-W/MEALS 02/23/24 05/20/24 History methocarbamoL [Robaxin] 500 mg PO Q8H PRN 02/23/24 05/20/24 History polyethylene glycoL 3350 [Miralax] 17 gm PO DAILY 02/23/24 05/20/24 History hydroCHLOROthiazide 25 mg PO DAILY 04/21/24 05/20/24 History Albuterol Sulfate [Ventolin HFA] 2 puff INHALATION RT-QID PRN 05/20/24 05/20/24 History Atorvastatin [Lipitor] 80 mg PO HS 05/20/24 05/20/24 History Dextroamphetamine/Amphetamine 20 mg PO DAILY 05/20/24 05/20/24 History [Adderall Xr 20 mg Capsule] Dicyclomine [Bentyl] 10 mg PO Q6H PRN 05/20/24 05/20/24 History Famotidine [Pepcid] 20 mg PO HS 05/20/24 05/20/24 History Fluticasone Propion/Salmeterol 1 puff INHALATION DIRECTED 05/20/24 05/20/24 History [Advair 250-50 Diskus] Furosemide [Lasix] 20 mg PO DAILY 05/20/24 05/20/24 History Gabapentin [Neurontin] 100 mg PO BID 05/20/24 05/20/24 History Ipratropium-Albuterol Nebulize 3 ml INHALATION DIRECTED 05/20/24 05/20/24 History [Duoneb 0.5 mg-3 mg/3 ml Soln] Lactulose [Constulose] 20 gm PO DAILY PRN 05/20/24 05/20/24 History Magnesium Citrate 296 ml PO ONCE PRN 05/20/24 05/20/24 History Metoclopramide [Reglan] 10 mg PO DIRECTED PRN 05/20/24 05/20/24 History Allergies Allergy/AdvReac Type Severity Reaction Status Date / Time adhesive Allergy Rash/Hives Verified 05/20/24 11:07 Physical Exam Vitals: Vital Signs Temp Pulse Resp BP Pulse Ox 05/20/24 15:02 65 18 103/79 98 05/20/24 12:43 70 20 115/55 98 05/20/24 11:07 98.5 F 77 20 117/63 97 Intake and Output 05/20/24 05/20/24 05/20/24 06:59 14:59 22:59 Other: Weight 115.666 kg Results CBC & Chem 7: 05/20/24 11:41 05/20/24 11:41 Labs: Abnormal Lab Results - Last 24 Hours (Table) 05/20/24 05/20/24 05/20/24 Range/Units 11:41 11:41 11:41 RBC 3.21 L (4.30-5.90) m/uL Hgb 9.0 L (13.0-17.5) gm/dL Hct 27.6 L (39.0-53.0) % Sodium 135 L (137-145) mmol/L Chloride 95 L (98-107) mmol/L BUN 37 H (9-20) mg/dL Creatinine 2.03 H (0.66-1.25) mg/dL Glucose 163 H (74-99) mg/dL Plasma Lactic Acid Ger 3.4 H* (0.7-2.0) mmol/L Magnesium 1.5 L (1.6-2.3) mg/dL Alkaline Phosphatase 133 H (38-126) U/L
[2024-05-20] MEDS ORDERED: ALBUTEROL NEBULIZED 2.5 MG/3 ML INHALATION PRN (17:16)
[2024-05-20] MEDS ORDERED: DEXTROSE 50% SYRINGE 50 ML IVP PRN ×2 (17:19)
[2024-05-20] MEDS ORDERED: HYDROcodone/APAP 5-325MG 1 EACH TAB PO PRN (17:45)
[2024-05-20 18:02] LABS: Glucose,Whole Blood 97 mg/dL (70-110)
[2024-05-20] MEDS: INSULIN ASPART (NovoLOG) 100 UNIT/ML VIAL SQ SCH (18:02)
[2024-05-20] MEDS: NON FORMULARY DRUG (Lubiprostone [Amitiza] 24 MCG Capsule) PO SCH (18:03)
[2024-05-20] MEDS: MAGNESIUM SULFATE-D5W PMX 1 GM in DEXTROSE/WATER 1 100ML.BAG IVPB SCH (18:15)
[2024-05-20 20:02] LABS: Glucose,Whole Blood 177 mg/dL (70-110)
[2024-05-20 20:32] LABS: Appearance,Urine Clear (Clear); Bilirubin,Urine Negative (Negative); Blood,Urine Negative (Negative); Color,Urine Colorless; Glucose,Urine (UA) Negative (Negative); Ketones,Urine Negative (Negative); Leukocyte Esterase,Urine Negative (Negative); Nitrite,Urine Negative (Negative); Protein,Urine Negative (Negative); Specific Gravity,Urine 1.007 (1.001-1.035); Urobilinogen,Urine <2.0 mg/dL (<2.0)
[2024-05-20] MEDS ORDERED: PIPERACILLIN-TAZOBACTAM 3.375 GM in SODIUM CHLORIDE 0.9% 100 ML IVPB SCH (21:00)
[2024-05-20] MEDS: ATORVASTATIN 80 MG TAB PO SCH (22:04)
[2024-05-20] MEDS: GABAPENTIN 100 MG CAP PO SCH (22:04)
[2024-05-20] MEDS: APIXABAN 5 MG TAB PO SCH (22:04)
[2024-05-20] MEDS: FERROUS SULFATE 325 MG TAB PO SCH (22:04)
[2024-05-20] MEDS: FAMOTIDINE 20 MG TAB PO SCH (22:04)
[2024-05-20] MEDS: INSULIN DETEMIR (LEVEMIR) 100 UNIT/ML SYR SQ SCH (22:05)
[2024-05-20] MEDS: AMPICILLIN-SULBACTAM 3 GM in SODIUM CHLORIDE 0.9% 100 ML IVPB SCH (22:06)
[2024-05-20] MEDS: LATANOPROST 0.005% OPHTH DROPS 2.5 ML BTL BOTH EYES SCH (22:06)
[2024-05-20] MEDS: SYMBICORT 160-4.5 MCG INHALER INHALATION SCH (22:43)
[2024-05-20] MEDS: IPRATROPIUM-ALBUTEROL 3 ML NEB INHALATION SCH (22:43)
[2024-05-21] MEDS: ACETAMINOPHEN TAB 325 MG TAB PO PRN (02:17)
[2024-05-21 06:36] LABS: Glucose,Whole Blood 175 mg/dL (70-110)
[2024-05-21] MEDS: NON FORMULARY DRUG (Dextroamphetamine/Amphetamine [Adderall Xr 20 Mg Capsule] 20 MG Cap.Er PO SCH (07:49)
[2024-05-21] MEDS: ESCITALOPRAM 10 MG TAB PO SCH (07:51)
[2024-05-21] MEDS: PANTOPRAZOLE 40 MG TABLET PO SCH (07:51)
[2024-05-21] MEDS: polyethylene glycoL 3350 17 GM POWD.PACK PO SCH (07:52)
[2024-05-21 09:33] LABS: HCT 26.1 % (39.6-50.0); HGB 8.3 g/dL (13.0-17.0); MCH 28.1 pg (27.0-32.0); MCHC 31.8 g/dL (32.0-37.0); MCV 88.5 FL (80.0-97.0); Mean Platelet Volume 10.6 FL (9.5-12.2); NRBC Per 100 WBC 0 X 10*3/uL (0.00-0.01); Platelet Count 252 X 10*3/uL (140-440); RBC 2.95 X 10*6/uL (4.40-5.60); WBC 6.16 X 10*3/uL (4.50-10.00)
[2024-05-21 09:50] LABS: ALT 21 U/L (10-49); AST 26 U/L (14-35); Albumin 3.4 g/dL (3.8-4.9); Albumin/Globulin Ratio 1.31 Ratio (1.60-3.17); Alkaline Phosphatase 130 U/L (41-126); BUN/Creat Ratio 16.53 Ratio (12.00-20.00); Blood Urea Nitrogen 28.1 mg/dL (9.0-27.0); Calcium 8.7 mg/dL (8.7-10.3); Carbon Dioxide 27.2 mmol/L (21.6-31.8); Chloride 99 mmol/L (96-109); Globulin 2.6 g/dL (1.6-3.3); Glucose 160 mg/dL (70-110); Magnesium 1.8 mg/dL (1.5-2.4); Potassium 4.8 mmol/L (3.5-5.5); Sodium 136 mmol/L (135-145); Total Bilirubin <0.2 mg/dL (0.3-1.2)
[2024-05-21] MEDS: VANCOMYCIN 1,750 MG in SODIUM CHLORIDE 0.9% 500 ML 500 ML IVPB SCH (11:44)
[2024-05-21 12:06] LABS: Glucose,Whole Blood 148 mg/dL (70-110)
--- NOTE | 2024-05-21 12:58 | P.NPCON ---
History of Present Illness - Reason for Consult Consult date: 05/21/24 acute renal failure - History of Present Illness This is a 54-year-old male sent by PCP presenting with for RLE swelling and erythema x 3 to 4 weeks. Patient states he was sent by his primary care following antibiotic failure of both Keflex and Bactrim DS which were taken to completion. Patient endorses weeping/blisters of lower extremity with no sensation change or pallor. Endorses receiving RLE Doppler ultrasound 2 weeks ago in this ER with no discovery of DVT at the time before being placed on Keflex. Admits to some difficulty initiating urine stream but able to urinate well after starting. Vital signs are stable. General: Resting in bed. HEENT: On nasal cannula. LUNGS: No audible rhonchi or wheezes. HEART: Rate and Rhythm are regular. ABDOMEN: Obese. EXTREMITITES: RLE cellulitic changes Review of Systems Constitutional: Reports as per HPI Past Medical History Past Medical History: Blood Disorder, Diabetes Mellitus, Deep Vein Thrombosis (DVT), GERD/Reflux, Hyperlipidemia, Hypertension, Musculoskeletal Disorder, O steoarthritis (OA), Sleep Apnea/CPAP/BIPAP Additional Past Medical History / Comment(s): IDDM type II, neuropathy bilateral feet with R foot worse, charcot foot R/L, , gastroparesis, hiatal hernia, esophageal narrowing (scarring)/past dysphagia/has had dilations, factor V l eiden, 2 DVT's L leg, another superficial blood clot L leg, chronic back pain/has pain pump, DDD and bulging discs, legally blind L eye since , migraines, PVD, fatty liver, narcolepsy, bipap, on abx for cellulitis right leg draining with fara wrap applied Last Myocardial Infarction Date:: 11/07/21 History of Any Multi-Drug Resistant Organisms: MRSA, VRE Date of last positivie culture/infection: 08/17/22 MDRO Source:: Left Leg Past Surgical History: Orthopedic Surgery, Tonsillectomy Additional Past Surgical History / Comment(s): R foot/ankle surgery at [facility] with bone removal/hardware inserted, I&D L foot, pain pump insertion, colonoscopy, EGDs with dilations, UVPPP, eye surgery as an infant. 09/13/23 BKA, left leg Past Anesthesia/Blood Transfusion Reactions: Family History of Problems w/ Anesthesia Additional Past Anesthesia/Blood Transfusion Reaction / Comment(s): STATES "MOTHER CRASHES" "passes out"-with anesthesia,"needs to have a registered respiratory therapist dose". no blood transfusion reaction Past Psychological History: Anxiety, Depression Additional Psychological History / Comment(s): Pt resides with his spouse. He has a cane but has been using a walker more often lately. He can now drive after cataract surgery. He has glucometer and uses bipap with oxygen at night. Smoking Status: Never smoker Past Alcohol Use History: None Reported Past Drug Use History: None Reported - Past Family History Father Family Medical History: Cancer Additional Family Medical History / Comment(s): BLADDER CANCER Mother Family Medical History: CVA/TIA, Diabetes Mellitus, Myocardial Infarction (DC) Medications and Allergies Home Medications Medication Instructions Recorded Confirmed Type Latanoprost Ophth [Xalatan 0.005%] 1 drop BOTH EYES HS 01/23/14 05/20/24 History Ferrous Sulfate [Iron (65 MG 325 mg PO BID 10/25/20 05/20/24 History Elemental)] Omeprazole 20 mg PO DAILY 11/10/21 05/20/24 History metFORMIN HCL 1,000 mg PO BID 06/03/22 05/20/24 History Apixaban [Eliquis] 5 mg PO BID #1 tab 08/26/22 05/20/24 Rx Magnesium Oxide [Mag-Ox] 400 mg PO DAILY tab 08/26/22 05/20/24 Rx Insulin Glargine,Hum.rec.anlog 15 units SQ BID 12/11/22 05/20/24 History [Lantus Solostar Pen] lisinopriL [Zestril] 2.5 mg PO HS 12/11/22 05/20/24 History Ergocalciferol [Vitamin D2 (1250 1,250 mcg PO Q14D 04/09/23 05/20/24 History Mcg = 24799 Iu)] Cyclobenzaprine [Flexeril] 10 mg PO BID 07/14/23 05/20/24 History Insulin Lispro [humaLOG Kwikpen] See Protocol SQ TID-W/MEALS 07/14/23 05/20/24 History Patient Own Pump 0 bag 07/14/23 07/14/23 History Escitalopram Oxalate [Lexapro] 10 mg PO DAILY 02/23/24 05/20/24 History Lubiprostone [Amitiza] 24 mcg PO BID-W/MEALS 02/23/24 05/20/24 History methocarbamoL [Robaxin] 500 mg PO Q8H PRN 02/23/24 05/20/24 History polyethylene glycoL 3350 [Miralax] 17 gm PO DAILY 02/23/24 05/20/24 History hydroCHLOROthiazide 25 mg PO DAILY 04/21/24 05/20/24 History Albuterol Sulfate [Ventolin HFA] 2 puff INHALATION RT-QID PRN 05/20/24 05/20/24 History Atorvastatin [Lipitor] 80 mg PO HS 05/20/24 05/20/24 History Dextroamphetamine/Amphetamine 20 mg PO DAILY 05/20/24 05/20/24 History [Adderall Xr 20 mg Capsule] Dicyclomine [Bentyl] 10 mg PO Q6H PRN 05/20/24 05/20/24 History Famotidine [Pepcid] 20 mg PO HS 05/20/24 05/20/24 History Fluticasone Propion/Salmeterol 1 puff INHALATION DIRECTED 05/20/24 05/20/24 History [Advair 250-50 Diskus] Furosemide [Lasix] 20 mg PO DAILY 05/20/24 05/20/24 History Gabapentin [Neurontin] 100 mg PO BID 05/20/24 05/20/24 History Ipratropium-Albuterol Nebulize 3 ml INHALATION DIRECTED 05/20/24 05/20/24 History [Duoneb 0.5 mg-3 mg/3 ml Soln] Lactulose [Constulose] 20 gm PO DAILY PRN 05/20/24 05/20/24 History Magnesium Citrate 296 ml PO ONCE PRN 05/20/24 05/20/24 History Metoclopramide [Reglan] 10 mg PO DIRECTED PRN 05/20/24 05/20/24 History Allergies Allergy/AdvReac Type Severity Reaction Status Date / Time adhesive Allergy Rash/Hives Verified 05/20/24 11:07 Physical Exam Vitals: Vital Signs Temp Pulse Pulse Pulse Resp BP BP 05/21/24 10:09 70 05/21/24 09:57 68 05/21/24 07:46 98.0 F 68 18 121/71 05/21/24 01:30 97.8 F 69 16 106/65 05/20/24 21:00 97.9 F 67 16 142/80 05/20/24 18:38 71 20 110/69 05/20/24 15:02 65 18 103/79 05/20/24 12:43 70 20 115/55 05/20/24 11:07 98.5 F 77 20 117/63 Pulse Ox 05/21/24 10:09 05/21/24 09:57 05/21/24 07:46 95 05/21/24 01:30 98 05/20/24 21:00 100 05/20/24 18:38 97 05/20/24 15:02 98 05/20/24 12:43 98 05/20/24 11:07 97 Intake and Output 05/20/24 05/21/24 05/21/24 22:59 06:59 14:59 Intake Total 540 1620 Output Total 1300 2750 Balance -760 -1130 Intake: Oral 540 1620 Output: Urine 1300 2750 Other: Voiding Method Urinal Weight 115.666 kg Results - Lab Results Most recent lab results Calcium 8.7 mg/dL (8.7-10.3) 05/21/24 03:41 Magnesium 1.8 mg/dL (1.5-2.4) 05/21/24 03:41 05/21/24 03:41 05/21/24 03:41 Assessment and Plan Assessment: 1. Non-oliguric NARENDRA 2/2 ATN and bactrim use. Baseline creatinine 1.1-1.4 mg/dL. Required HD 2022 and recovered. Presented creatinine 2.0, improved to 1.7 today. UA no active sediment. 2. RLE cellulitis failed outpatient Keflex and Bactrim. 3. CKD Stage 2/3a 4. Anemia of chronic disease 5. HTN with CKD 6. Type 2 DM Plan: Continue IVF No further work-up renal funciton improving Hold Lisinopril and HCTZ for now ABX per ID, keep vanco trough <20 to prevent ATN
--- NOTE | 2024-05-21 14:24 | P.PN ---
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 Presented to the emergency department for evaluation of right lower extremity cellulitis as directed by his PCP after fa ili outpatient treatment. Patient has been under treatment for right lower extremity cellulitis for 3 weeks. Patient reports he completed 2 weeks of oral Keflex and after no improvement and his PCP started him on Bactrim x 10 days and the redness, swelling, and increased warmth in his right lower extremity continued to worsen. Patient reports significant swelling, pain, redness, and seepage of clear to yellow fluid from lower extremity. Patient reports the swelling and pain continued to worsen restricting his ability to lift or bend his leg. Patient reports he did have a Doppler to rule out a blood clot prior to beginning his antibiotic course 3 weeks ago. He denies experiencing any fevers, chills, diaphoresis, headache, lightheadedness, dizziness, chest pain, palpitations, shortness of breath, cough or congestion, nausea, or vomiting. Upon arrival to our facility, patient underwent evaluation in the emergency department. Vital signs upon arrival show blood pressure 117/63, heart rate 77, respiratory rate 20, temp 98.5 F, and SpO2 of 97% on 2 L O2. EKG was completed showing normal sinus rhythm at 73 bpm. Chest x-ray was completed in the emergency department negative for acute cardiopulmonary process. Right lower extremity venous Doppler completed Negative for DVT. X-ray right tibia and fibula was negative showing no acute osseous abnormality. Labs completed and reviewed. CBC showing normocytic anemia with hemoglobin of 9.0 (chronic and at baseline) coagulation profile normal findings. BMP showing an acute kidney injury with BUN of 37, creatinine of 2.03, and GFR of 36 baseline creatinine of 1.2. Magnesium was low at 1.5. Liver profile showing elevated alkaline phosphatase of 133 otherwise normal findings. Troponin was negative at less than 0.012 and proBNP was 645. Patient was admitted under our services with consultation to infectious disease secondary to failing outpatient treatment for right lower extremity cellulitis. Physical exam: Patient seen and fully evaluated at bedside this morning. He reports right lower extremity swelling, pain, and redness unchanged, but denies having any other complaints or needs at this time. Vital signs reviewed and stable. General: Nontoxic, no distress and appears stated age. Derm: Skin warm and dry, normal coloration for ethnicity. Head: Atraumatic, normocephalic and symmetric. Eyes: Legally blind in left eye Mouth: no lip lesions, mucus membranes moist Cardiovascular: regular rate and rhythm with normal S1S2, no murmur noted. Lungs: Respirations even, regular, and unlabored on room air. Lungs CTA bilaterally, no rhonchi, no rales, no wheezing, and no accessory muscle usage. Abdominal: soft, nontender to palpation, no guarding, no appreciable organomegaly Ext: No gross muscle atrophy, no edema, no contractures. Patient with left BKA (has prosthesis at bedside). Right lower extremity with moderate edema, erythema, increased warmth and excoriation extending from distal toes up into the distal thigh. Neuro: Speech clear, face symmetrical and CN II-XII grossly intact with no noted focal neuro deficits Psych: Alert and oriented to person, place, time, and situation. Appropriate and pleasant affect. Assessment and Plan of Care: Right lower extremity cellulitis, failed outpatient treatment Lactic acidosis -Patient treated outpatient for right lower extremity cellulitis with reports of Keflex x 2 weeks and Bactrim x 10 days unsuccessfully. -Continue IV antibiotics with Unasyn 3 g every 8 hours and vancomycin 1750 mg daily. Monitor renal function and vancomycin trough closely for any signs/symptoms of vancomycin associated renal toxicity. Nephrology recommending keeping vancomycin trough less than 20 to prevent ATN. -Consult infectious disease, appreciate recommendations -Continue symptomatic care and pain management. Acute kidney injury on CKD stage IIIa Anemia of chronic disease, chronic and at baseline -Acute kidney injury suspect to be secondary to oral antibiotic Bactrim. Hold nephrotoxic medications at this time including lisinopril, Lasix, hydrochlorothiazide and Bactrim. -.Renal function improving with BUN of 28.1, creatinine 1.7, GFR of 47. Continue gentle IV fluid hydration with 0.9% normal saline at 75 cc/h for an additional 24 hours then discontinue -Continue close monitoring with repeat a.m. labs, monitor for resolution. -Nephrology consulted, appreciate recommendations -Bladder scan as needed to monitor for postvoid residual/retention -Follow-up on urinalysis results once available. Hypomagnesemia -Resolved morning and magnesium levels 1.8.. Will continue to monitor with repeat a.m. labs. Insulin-dependent diabetes mellitus with hyperglycemia -Continue glycemic protocol with NovoLog sliding scale and to continue Levemir 15 units twice daily. -Hemoglobin A1c 7.1%. Obstructive sleep apnea CPAP dependent nightly -Continue CPAP nightly and while napping. Anxiety and depression -Continue daily medication regimen with Lexapro 10 mg daily. Chronic back pain -Patient has morphine implanted pump in place, to continue with use pharmacy updating med rec. -Continue Neurontin 100 mg twice daily. Factor V clotting disorder Recurrent DVTs Hyperlipidemia Hypertension -Lisinopril, hydrochlorothiazide, and Lasix held at this time secondary to NARENDRA. To continue daily medication regimen with Eliquis 5 mg twice daily and atorvastatin 80 mg nightly. Blood pressures stable with morning pressure 121/71. Will continue to monitor if elevated and need to continue to hold lisinopril, hydrochlorothiazide and Lasix will place additional orders for blood pressure management at that time. Data and imaging reviewed: Morning labs reviewed. CBC showing stable normocytic anemia with hemoglobin of 8.3. BMP showing renal function improving with BUN of 28.1, creatinine 1.7, GFR of 47. Hypomagnesemia resolved with morning magnesium of 1.8. Liver profile showing continued elevated alkaline phosphatase of 130 and hypoalbuminemia with albumin of 3.4. Hemoglobin A1c 7.1%. Vital signs reviewed. Blood pressure 121/71, heart rate 68, respiratory rate 18, temp 98.0 F, and SpO2 of 95% on 2 L. CODE STATUS: Full code DVT prophylaxis: Eliquis Anticipated discharge date: Pending clinical course Anticipated discharge place: Home Patient was seen independently by Nurse Practitioner. This document was prepared using [employer] dictation software. Please allow for errors in pre owned sales consultant while rare they do occur. Rojelio Araujo NP rendered care for this patient independently, reviewed the findings and plan as documented in the note above and agree with plan. I did not physically speak with or examine the patient on this date. Objective - Vital Signs Vital signs: Vital Signs Temp 97.8 F 05/21/24 01:30 Pulse 69 05/21/24 01:30 Resp 16 05/21/24 01:30 BP 106/65 05/21/24 01:30 Pulse Ox 98 05/21/24 01:30 FiO2 Intake & Output 05/20/24 05/21/24 05/21/24 18:59 06:59 18:59 Intake Total 2160 Output Total 4050 Balance -1890 Weight 115.666 kg 115.666 kg Intake: Oral 2160 Output: Urine 4050 Other: Voiding Method Urinal - Labs CBC & Chem 7: 05/21/24 03:41 05/21/24 03:41 Labs: Abnormal Lab Results - Last 24 Hours (Table) 05/20/24 05/20/24 05/20/24 Range/Units 11:41 11:41 11:41 RBC 3.21 L (4.30-5.90) m/uL Hgb 9.0 L (13.0-17.5) gm/dL Hct 27.6 L (39.0-53.0) % Sodium 135 L (137-145) mmol/L Chloride 95 L (98-107) mmol/L BUN 37 H (9-20) mg/dL Creatinine 2.03 H (0.66-1.25) mg/dL Glucose 163 H (74-99) mg/dL POC Glucose (mg/dL) (70-110) mg/dL Plasma Lactic Acid Ger 3.4 H* (0.7-2.0) mmol/L Magnesium 1.5 L (1.6-2.3) mg/dL Alkaline Phosphatase 133 H (38-126) U/L 05/20/24 05/20/24 05/21/24 Range/Units 14:44 20:00 06:34 RBC (4.30-5.90) m/uL Hgb (13.0-17.5) gm/dL Hct (39.0-53.0) % Sodium (137-145) mmol/L Chloride (98-107) mmol/L BUN (9-20) mg/dL Creatinine (0.66-1.25) mg/dL Glucose (74-99) mg/dL POC Glucose (mg/dL) 177 H 175 H (70-110) mg/dL Plasma Lactic Acid Ger 2.2 H* (0.7-2.0) mmol/L Magnesium (1.6-2.3) mg/dL Alkaline Phosphatase (38-126) U/L
[2024-05-21 17:00] LABS: Glucose,Whole Blood 212 mg/dL (70-110)
[2024-05-21 20:46] LABS: Glucose,Whole Blood 190 mg/dL (70-110)
[2024-05-22 06:33] LABS: Glucose,Whole Blood 128 mg/dL (70-110)
[2024-05-22 08:48] LABS: ALT 22 U/L (10-49); AST 25 U/L (14-35); Albumin 3.3 g/dL (3.8-4.9); Albumin/Globulin Ratio 1.38 Ratio (1.60-3.17); Alkaline Phosphatase 115 U/L (41-126); BUN/Creat Ratio 14.75 Ratio (12.00-20.00); Blood Urea Nitrogen 23.6 mg/dL (9.0-27.0); Calcium 8.3 mg/dL (8.7-10.3); Carbon Dioxide 25.6 mmol/L (21.6-31.8); Chloride 104 mmol/L (96-109); Globulin 2.4 g/dL (1.6-3.3); Glucose 155 mg/dL (70-110); Magnesium 1.7 mg/dL (1.5-2.4); Potassium 4.7 mmol/L (3.5-5.5); Sodium 141 mmol/L (135-145); Total Bilirubin <0.2 mg/dL (0.3-1.2); Total Protein 5.7 g/dL (6.2-8.2)
--- NOTE | 2024-05-22 08:52 | P.CONS ---
History of Present Illness - Reason for Consult Consult date: 05/21/24 Right lower extremity cellulitis Requesting physician: Rashel Villareal - Chief Complaint Swelling redness of the right leg x 2 weeks - History of Present Illness Patient is a 54-year-old male with a past medical history significant for diabetes mellitus history of diabetic foot infection in this patient was status post left below the knee amputation presenting to the hospital for evaluation of increasing swelling redness to the right lower extremity that a pparently has been getting worse over the last 3 to 4 weeks patient has been treating outpatient setting with oral Keflex and Bactrim DS and did not have significant improvement patient complaining of increasing swelling to the lower extremity with associated redness and some weeping edema denies any purulent drainage denies any history of any trauma. Denies fever or any chills no nausea no vomiting no abdominal pain or any diarrhea on presentation to the hospital patient was afebrile no fever have been recorded subsequently patient was nontachycardic or hypotensive currently on 2 L current oxygen patient did have a white count of 6.2 daily count has been mildly elevated liver enzymes are normal urine has been negative local cultures of drainage currently pending as well as blood culture and apparently the patient also have lower extremity Doppler that was negative for DVT patient is currently being treated with Unasyn and vancomycin infectious he was consulted for further management of antibiotic therapy Review of Systems Positive point and negatives has been mentioned in the HPI, complete review of systems was performed and all other systems are negative Past Medical History Past Medical History: Blood Disorder, Diabetes Mellitus, Deep Vein Thrombosis (DVT), GERD/Reflux, Hyperlipidemia, Hypertension, Musculoskeletal Disorder, Osteoarthritis (OA), Sleep Apnea/CPAP/BIPAP Additional Past Medical History / Comment(s): IDDM type II, neuropathy bilateral feet with R foot worse, charcot foot R/L, , gastroparesis, hiatal hernia, esophageal narrowing (scarring)/past dysphagia/has had dilations, factor V leiden, 2 DVT's L leg, another superficial blood clot L leg, chronic back pain/h as pain pump, DDD and bulging discs, legally blind L eye since , migraines, PVD, fatty liver, narcolepsy, bipap, on abx for cellulitis right leg draining with speedy wrap applied Last Myocardial Infarction Date:: 11/07/21 History of Any Multi-Drug Resistant Organisms: MRSA, VRE Year Discovered:: 08/17/22 MDRO Source:: Left Leg Past Surgical History: Orthopedic Surgery, Tonsillectomy Additional Past Surgical History / Comment(s): R foot/ankle surgery at [facility] with bone removal/hardware inserted, I&D L foot, pain pump insertion, colonoscopy, EGDs with dilations, UVPPP, eye surgery as an . 09/13/23 BKA, left leg Past Anesthesia/Blood Transfusion Reactions: Family History of Problems w/ Anesthesia Additional Past Anesthesia/Blood Transfusion Reaction / Comm: STATES "MOTHER CRASHES" "passes out"-with anesthesia,"needs to have a inside sales trainer dose". no blood transfusion reaction Past Psychological History: Anxiety, Depression Additional Psychological History / Comment(s): Pt resides with his spouse. He has a cane but has been using a walker more often lately. He can now drive after cataract surgery. He has glucometer and uses bipap with oxygen at night. Smoking Status: Never smoker Past Alcohol Use History: None Reported Past Drug Use History: None Reported - Past Family History Father Family Medical History: Cancer Additional Family Medical History / Comment(s): BLADDER CANCER Mother Family Medical History: CVA/TIA, Diabetes Mellitus, Myocardial Infarction ([place]) Medications and Allergies Home Medications Medication Instructions Recorded Confirmed Type Latanoprost Ophth [Xalatan 0.005%] 1 drop BOTH EYES HS 01/23/14 05/20/24 History Ferrous Sulfate [Iron (65 MG 325 mg PO BID 10/25/20 05/20/24 History Elemental)] Omeprazole 20 mg PO DAILY 11/10/21 05/20/24 History metFORMIN HCL 1,000 mg PO BID 06/03/22 05/20/24 History Apixaban [Eliquis] 5 mg PO BID #1 tab 08/26/22 05/20/24 Rx Magnesium Oxide [Mag-Ox] 400 mg PO DAILY tab 08/26/22 05/20/24 Rx Insulin Glargine,Hum.rec.anlog 15 units SQ BID 12/11/22 05/20/24 History [Lantus Solostar Pen] lisinopriL [Zestril] 2.5 mg PO HS 12/11/22 05/20/24 History Ergocalciferol [Vitamin D2 (1250 1,250 mcg PO Q14D 04/09/23 05/20/24 History Mcg = 10008 Iu)] Cyclobenzaprine [Flexeril] 10 mg PO BID 07/14/23 05/20/24 History Insulin Lispro [humaLOG Kwikpen] See Protocol SQ TID-W/MEALS 07/14/23 05/20/24 History Patient Own Pump 0 bag 07/14/23 07/14/23 History Escitalopram Oxalate [Lexapro] 10 mg PO DAILY 02/23/24 05/20/24 History Lubiprostone [Amitiza] 24 mcg PO BID-W/MEALS 02/23/24 05/20/24 History methocarbamoL [Robaxin] 500 mg PO Q8H PRN 02/23/24 05/20/24 History polyethylene glycoL 3350 [Miralax] 17 gm PO DAILY 02/23/24 05/20/24 History hydroCHLOROthiazide 25 mg PO DAILY 04/21/24 05/20/24 History Albuterol Sulfate [Ventolin HFA] 2 puff INHALATION RT-QID PRN 05/20/24 05/20/24 History Atorvastatin [Lipitor] 80 mg PO HS 05/20/24 05/20/24 History Dextroamphetamine/Amphetamine 20 mg PO DAILY 05/20/24 05/20/24 History [Adderall Xr 20 mg Capsule] Dicyclomine [Bentyl] 10 mg PO Q6H PRN 05/20/24 05/20/24 History Famotidine [Pepcid] 20 mg PO HS 05/20/24 05/20/24 History Fluticasone Propion/Salmeterol 1 puff INHALATION DIRECTED 05/20/24 05/20/24 History [Advair 250-50 Diskus] Furosemide [Lasix] 20 mg PO DAILY 05/20/24 05/20/24 History Gabapentin [Neurontin] 100 mg PO BID 05/20/24 05/20/24 History Ipratropium-Albuterol Nebulize 3 ml INHALATION DIRECTED 05/20/24 05/20/24 History [Duoneb 0.5 mg-3 mg/3 ml Soln] Lactulose [Constulose] 20 gm PO DAILY PRN 05/20/24 05/20/24 History Magnesium Citrate 296 ml PO ONCE PRN 05/20/24 05/20/24 History Metoclopramide [Reglan] 10 mg PO DIRECTED PRN 05/20/24 05/20/24 History Allergies Allergy/AdvReac Type Severity Reaction Status Date / Time adhesive Allergy Rash/Hives Verified 05/20/24 11:07 Physical Exam Vitals: Vital Signs Temp Pulse Pulse Pulse Resp BP BP 05/21/24 10:09 70 05/21/24 09:57 68 05/21/24 07:46 98.0 F 68 18 121/71 05/21/24 01:30 97.8 F 69 16 106/65 05/20/24 21:00 97.9 F 67 16 142/80 05/20/24 18:38 71 20 110/69 05/20/24 15:02 65 18 103/79 05/20/24 12:43 70 20 115/55 Pulse Ox 05/21/24 10:09 05/21/24 09:57 05/21/24 07:46 95 05/21/24 01:30 98 05/20/24 21:00 100 05/20/24 18:38 97 05/20/24 15:02 98 05/20/24 12:43 98 Intake and Output 05/20/24 05/21/24 05/21/24 22:59 06:59 14:59 Intake Total 540 1620 Output Total 1300 2750 Balance -760 -1130 Intake: Oral 540 1620 Output: Urine 1300 2750 Other: Voiding Method Urinal Urinal Weight 115.666 kg GENERAL DESCRIPTION: Middle-aged male lying in bed, no distress. No tachypnea or accessory muscle of respiration use. HEENT: Shows Pallor , no scleral icterus. Oral mucous membrane is dry. NECK: Trachea central, no thyromegaly. LUNGS: Unlabored breathing. Clear to auscultation anteriorly. No wheeze or crackle. HEART: S1, S2, regular rate and rhythm. No loud murmur ABDOMEN: Soft, no tenderness , guarding or rigidity, no organomegaly EXTREMITIES: Right lower extremity with diffuse swelling redness some superficial ulceration on the lateral side and weeping edema SKIN: No rash, no masses palpable. NEUROLOGICAL: The patient is awake, alert, oriented x3, mood and affect normal. Results CBC & Chem 7: 05/21/24 03:41 05/22/24 03:42 Labs: Abnormal Lab Results - Last 24 Hours (Table) 05/20/24 05/20/24 05/20/24 Range/Units 11:41 11:41 14:44 RBC (4.40-5.60) X 10*6/uL Hgb (13.0-17.0) g/dL Hct (39.6-50.0) % MCHC (32.0-37.0) g/dL Sodium 135 L (137-145) mmol/L Chloride 95 L (98-107) mmol/L BUN 37 H (9-20) mg/dL Creatinine 2.03 H (0.66-1.25) mg/dL Est GFR (CKD-EPI) (>=60) Glucose 163 H (74-99) mg/dL POC Glucose (mg/dL) (70-110) mg/dL Hemoglobin A1c (<=6.0) % Plasma Lactic Acid Ger 3.4 H* 2.2 H* (0.7-2.0) mmol/L Magnesium 1.5 L (1.6-2.3) mg/dL Total Bilirubin (0.3-1.2) mg/dL Alkaline Phosphatase 133 H (38-126) U/L Total Protein (6.2-8.2) g/dL Albumin (3.8-4.9) g/dL Albumin/Globulin Ratio (1.60-3.17) Ratio 05/20/24 05/21/24 05/21/24 Range/Units 20:00 03:41 03:41 RBC 2.95 L (4.40-5.60) X 10*6/uL Hgb 8.3 L (13.0-17.0) g/dL Hct 26.1 L (39.6-50.0) % MCHC 31.8 L (32.0-37.0) g/dL Sodium (137-145) mmol/L Chloride (98-107) mmol/L BUN (9-20) mg/dL Creatinine (0.66-1.25) mg/dL Est GFR (CKD-EPI) (>=60) Glucose (74-99) mg/dL POC Glucose (mg/dL) 177 H (70-110) mg/dL Hemoglobin A1c 7.1 H (<=6.0) % Plasma Lactic Acid Ger (0.7-2.0) mmol/L Magnesium (1.6-2.3) mg/dL Total Bilirubin (0.3-1.2) mg/dL Alkaline Phosphatase (38-126) U/L Total Protein (6.2-8.2) g/dL Albumin (3.8-4.9) g/dL Albumin/Globulin Ratio (1.60-3.17) Ratio 05/21/24 05/21/24 Range/Units 03:41 06:34 RBC (4.40-5.60) X 10*6/uL Hgb (13.0-17.0) g/dL Hct (39.6-50.0) % MCHC (32.0-37.0) g/dL Sodium (137-145) mmol/L Chloride (98-107) mmol/L BUN 28.1 H (9-20) mg/dL Creatinine 1.7 H (0.66-1.25) mg/dL Est GFR (CKD-EPI) 47 L (>=60) Glucose 160 H (74-99) mg/dL POC Glucose (mg/dL) 175 H (70-110) mg/dL Hemoglobin A1c (<=6.0) % Plasma Lactic Acid Ger (0.7-2.0) mmol/L Magnesium (1.6-2.3) mg/dL Total Bilirubin <0.2 L (0.3-1.2) mg/dL Alkaline Phosphatase 130 H (38-126) U/L Total Protein 6.0 L (6.2-8.2) g/dL Albumin 3.4 L (3.8-4.9) g/dL Albumin/Globulin Ratio 1.31 L (1.60-3.17) Ratio Assessment and Plan (1) Failure of outpatient treatment Current Visit: Yes Status: Acute Code(s): Z78.9 - OTHER SPECIFIED HEALTH STATUS SNOMED Code(s): 147139384 (2) Cellulitis of leg, right Current Visit: Yes Status: Acute Code(s): L03.115 - CELLULITIS OF RIGHT LOWER LIMB SNOMED Code(s): 90673516474695395 Plan: 1patient presented to hospital with increasing swelling redness to the right lower extremity in this patient who did have diffuse swelling redness some superficial ulceration and evidence of cellulitis failing outpatient oral Keflex and Bactrim DS therapy concerning for possible community associated MRSA 2-patient did have elevated creatinine and will need to monitor his kidney function closely while on vancomycin 3-nursing staff has been advised by the local wound care with dry Aquacel dressing to the open area and area of maceration followed by Speedy wrap from just bilateral below the knee 4-patient to continue with Unasyn and vancomycin while waiting for the culture to finalize We will follow on clinical condition and cultures to further adjust medication if needed Thank you for this consultation we will follow the patient along with you Dictation was produced using [employer] dictation software. please excuse any grammatical, word or spelling errors. Time with Patient: Greater than 30
[2024-05-22 10:01] LABS: HCT 24.5 % (39.6-50.0); HGB 7.6 g/dL (13.0-17.0); MCH 27.4 pg (27.0-32.0); MCV 88.4 FL (80.0-97.0); Mean Platelet Volume 10.5 FL (9.5-12.2); NRBC Per 100 WBC 0 X 10*3/uL (0.00-0.01); Platelet Count 229 X 10*3/uL (140-440); RBC 2.77 X 10*6/uL (4.40-5.60); RDW 14.1 % (11.5-14.5); WBC 6.05 X 10*3/uL (4.50-10.00)
--- NOTE | 2024-05-22 11:24 | P.PN ---
Subjective Patient is seen in follow-up for acute kidney injury on chronic kidney disease. Renal function stable. Tolerating oral intake. No vomiting or diarrhea. Vital signs are stable. General: No acute distress. HEENT: Head exam is unremarkable. LUNGS: No audible rhonchi or wheezes. HEART: Rate and Rhythm are regular. ABDOMEN: Obese, nontender. EXTREMITITES: Left BKA. Right lower extremity wrapped. No drainage. Objective - Vital Signs Vital signs: Vital Signs Temp 98.1 F 05/22/24 07:25 Pulse 72 05/22/24 08:31 Resp 18 05/22/24 07:25 BP 116/66 05/22/24 07:25 Pulse Ox 97 05/22/24 07:25 FiO2 Intake & Output 05/21/24 05/22/24 05/22/24 18:59 06:59 18:59 Output Total 800 1200 Balance -800 -1200 Output: Urine 800 1200 Other: Voiding Method Urinal Urinal - Labs CBC & Chem 7: 05/22/24 03:42 05/22/24 03:42 Labs: Abnormal Lab Results - Last 24 Hours (Table) 05/21/24 05/21/24 05/21/24 Range/Units 12:04 16:59 20:45 RBC (4.40-5.60) X 10*6/uL Hgb (13.0-17.0) g/dL Hct (39.6-50.0) % MCHC (32.0-37.0) g/dL Creatinine (0.6-1.5) mg/dL Est GFR (CKD-EPI) (>=60) Glucose (70-110) mg/dL POC Glucose (mg/dL) 148 H 212 H 190 H (70-110) mg/dL Calcium (8.7-10.3) mg/dL Total Bilirubin (0.3-1.2) mg/dL Total Protein (6.2-8.2) g/dL Albumin (3.8-4.9) g/dL Albumin/Globulin Ratio (1.60-3.17) Ratio 05/22/24 05/22/24 05/22/24 Range/Units 03:42 03:42 06:31 RBC 2.77 L (4.40-5.60) X 10*6/uL Hgb 7.6 L (13.0-17.0) g/dL Hct 24.5 L (39.6-50.0) % MCHC 31.0 L (32.0-37.0) g/dL Creatinine 1.6 H (0.6-1.5) mg/dL Est GFR (CKD-EPI) 51 L (>=60) Glucose 155 H (70-110) mg/dL POC Glucose (mg/dL) 128 H (70-110) mg/dL Calcium 8.3 L (8.7-10.3) mg/dL Total Bilirubin <0.2 L (0.3-1.2) mg/dL Total Protein 5.7 L (6.2-8.2) g/dL Albumin 3.3 L (3.8-4.9) g/dL Albumin/Globulin Ratio 1.38 L (1.60-3.17) Ratio Microbiology - Last 24 Hours (Table) 05/20/24 11:38 Gram Stain - Preliminary Ankle - Right Wound Culture - Preliminary Presumptive MRSA 05/20/24 14:34 Blood Culture - Preliminary Blood Assessment and Plan Plan: Assessment: 1. Acute kidney injury secondary to ATN and further worsen with the use of Bactrim. Creatinine 2 on admission and is improved to 1.6 today. UA benign. 2. Chronic kidney disease stage II/IIIa secondary to nephrosclerosis and history of NARENDRA requiring temporary hemodialysis. 3. Right lower extremity cellulitis on antibiotics. 4. Hypertension with chronic kidney disease. 5. Diabetes mellitus. Plan: Remains off IV fluids. Encouraged oral intake. Avoid nephrotoxins.
[2024-05-22 11:38] LABS: Glucose,Whole Blood 173 mg/dL (70-110)
--- NOTE | 2024-05-22 15:35 | P.PN ---
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 Presented to the emergency department for evaluation of right lower extremity cellulitis as directed by his PCP after fa ili outpatient treatment. Patient has been under treatment for right lower extremity cellulitis for 3 weeks. Patient reports he completed 2 weeks of oral Keflex and after no improvement and his PCP started him on Bactrim x 10 days and the redness, swelling, and increased warmth in his right lower extremity continued to worsen. Patient reports significant swelling, pain, redness, and seepage of clear to yellow fluid from lower extremity. Patient reports the swelling and pain continued to worsen restricting his ability to lift or bend his leg. Patient reports he did have a Doppler to rule out a blood clot prior to beginning his antibiotic course 3 weeks ago. He denies experiencing any fevers, chills, diaphoresis, headache, lightheadedness, dizziness, chest pain, palpitations, shortness of breath, cough or congestion, nausea, or vomiting. Upon arrival to our facility, patient underwent evaluation in the emergency department. Vital signs upon arrival show blood pressure 117/63, heart rate 77, respiratory rate 20, temp 98.5 F, and SpO2 of 97% on 2 L O2. EKG was completed showing normal sinus rhythm at 73 bpm. Chest x-ray was completed in the emergency department negative for acute cardiopulmonary process. Right lower extremity venous Doppler completed Negative for DVT. X-ray right tibia and fibula was negative showing no acute osseous abnormality. Labs completed and reviewed. CBC showing normocytic anemia with hemoglobin of 9.0 (chronic and at baseline) coagulation profile normal findings. BMP showing an acute kidney injury with BUN of 37, creatinine of 2.03, and GFR of 36 baseline creatinine of 1.2. Magnesium was low at 1.5. Liver profile showing elevated alkaline phosphatase of 133 otherwise normal findings. Troponin was negative at less than 0.012 and proBNP was 645. Patient was admitted under our services with consultation to infectious disease secondary to failing outpatient treatment for right lower extremity cellulitis. Physical exam: Patient seen and fully evaluated at bedside this morning. He reports right lower extremity swelling, pain, and redness unchanged, but denies having any other complaints or needs at this time. Vital signs reviewed and stable. General: Nontoxic, no distress and appears stated age. Derm: Skin warm and dry, normal coloration for ethnicity. Head: Atraumatic, normocephalic and symmetric. Eyes: Legally blind in left eye Mouth: no lip lesions, mucus membranes moist Cardiovascular: regular rate and rhythm with normal S1S2, no murmur noted. Lungs: Respirations even, regular, and unlabored on room air. Lungs CTA bilaterally, no rhonchi, no rales, no wheezing, and no accessory muscle usage. Abdominal: soft, nontender to palpation, no guarding, no appreciable organomegaly Ext: No gross muscle atrophy, no edema, no contractures. Patient with left BKA (has prosthesis at bedside). Right lower extremity with moderate edema, erythema, increased warmth and excoriation extending from distal toes up into the distal thigh. Neuro: Speech clear, face symmetrical and CN II-XII grossly intact with no noted focal neuro deficits Psych: Alert and oriented to person, place, time, and situation. Appropriate and pleasant affect. Assessment and Plan of Care: Right lower extremity cellulitis, failed outpatient treatment Lactic acidosis -Patient treated outpatient for right lower extremity cellulitis with reports of Keflex x 2 weeks and Bactrim x 10 days unsuccessfully. -Continue IV antibiotics with vancomycin 1750 mg daily. Monitor renal function and vancomycin trough closely for any signs/symptoms of vancomycin associated renal toxicity. Nephrology recommending keeping vancomycin trough less than 20 to prevent ATN. -Preliminary wound cultures positive for presumptive MRSA. Blood cultures showing no growth to date. -Infectious disease following, discussed plan in depth with with Dr. Lang. -Continue symptomatic care and pain management. Acute kidney injury on CKD stage IIIa Anemia of chronic disease, chronic and at baseline -Acute kidney injury suspect to be secondary to oral antibiotic Bactrim. Hold nephrotoxic medications at this time including lisinopril, Lasix, hydrochlorothiazide and Bactrim. -.Renal function improving with BUN of 23.6, creatinine 1.6, GFR of 51. - Continue close monitoring with repeat a.m. labs, monitor for resolution. - Nephrology following, reviewed documentation in chart - Bladder scan as needed to monitor for postvoid residual/retention -Urinalysis negative for blood, protein, or infection. Hypomagnesemia -Resolved morning and magnesium levels 1.7.. Will continue to monitor with repeat a.m. labs. Insulin-dependent diabetes mellitus with hyperglycemia -Continue glycemic protocol with NovoLog sliding scale and to continue Levemir 15 units twice daily. -Hemoglobin A1c 7.1%. Obstructive sleep apnea CPAP dependent nightly -Continue CPAP nightly and while napping. Anxiety and depression -Continue daily medication regimen with Lexapro 10 mg daily. Chronic back pain -Patient has morphine implanted pump in place, to continue with use pharmacy updating med rec. -Continue Neurontin 100 mg twice daily. Factor V clotting disorder Recurrent DVTs Hyperlipidemia Hypertension -Lisinopril, hydrochlorothiazide, and Lasix held at this time secondary to NARENDRA. To continue daily medication regimen with Eliquis 5 mg twice daily and atorvastatin 80 mg nightly. Blood pressures stable with morning pressure 116/66. Will continue to monitor if elevated and need to continue to hold lisinopril, hydrochlorothiazide and Lasix will place additional orders for blood pressure management at that time. Data and imaging reviewed: Morning labs reviewed. CBC showing stable normocytic anemia with hemoglobin of 7.6. BMP showing renal function improving with BUN of 23.6, creatinine 1.6, GFR 51. Blood glucose 155. Magnesium 1.7. Liver profile unremarkable with exception of hypoalbuminemia with albumin of 3.3.. Vital signs reviewed. Blood pressure 116/66, heart rate 71, respiratory rate 18, temp 98.1 F, and SpO2 of 97% on 2 L CODE STATUS: Full code DVT prophylaxis: Eliquis Anticipated discharge date: Pending clinical course Anticipated discharge place: Home Patient was seen independently by Nurse Practitioner. This document was prepared using Ring[employer] dictation software. Please allow for errors in acting instructor while rare they do occur. Rojelio Araujo NP rendered care for this patient independently, reviewed the findings and plan as documented in the note above and agree with plan. I did not physically speak with or examine the patient on this date. Objective - Vital Signs Vital signs: Vital Signs Temp 98.1 F 05/22/24 07:25 Pulse 72 05/22/24 08:20 Resp 18 05/22/24 07:25 BP 116/66 05/22/24 07:25 Pulse Ox 97 05/22/24 07:25 FiO2 Intake & Output 05/21/24 05/22/24 05/22/24 18:59 06:59 18:59 Output Total 800 1200 Balance -800 -1200 Output: Urine 800 1200 Other: Voiding Method Urinal Urinal - Labs CBC & Chem 7: 05/22/24 03:42 05/22/24 03:42 Labs: Abnormal Lab Results - Last 24 Hours (Table) 05/21/24 05/21/24 05/21/24 Range/Units 03:41 03:41 03:41 RBC 2.95 L (4.40-5.60) X 10*6/uL Hgb 8.3 L (13.0-17.0) g/dL Hct 26.1 L (39.6-50.0) % MCHC 31.8 L (32.0-37.0) g/dL BUN 28.1 H (9.0-27.0) mg/dL Creatinine 1.7 H (0.6-1.5) mg/dL Est GFR (CKD-EPI) 47 L (>=60) Glucose 160 H (70-110) mg/dL POC Glucose (mg/dL) (70-110) mg/dL Hemoglobin A1c 7.1 H (<=6.0) % Total Bilirubin <0.2 L (0.3-1.2) mg/dL Alkaline Phosphatase 130 H (41-126) U/L Total Protein 6.0 L (6.2-8.2) g/dL Albumin 3.4 L (3.8-4.9) g/dL Albumin/Globulin Ratio 1.31 L (1.60-3.17) Ratio 05/21/24 05/21/24 05/21/24 Range/Units 12:04 16:59 20:45 RBC (4.40-5.60) X 10*6/uL Hgb (13.0-17.0) g/dL Hct (39.6-50.0) % MCHC (32.0-37.0) g/dL BUN (9.0-27.0) mg/dL Creatinine (0.6-1.5) mg/dL Est GFR (CKD-EPI) (>=60) Glucose (70-110) mg/dL POC Glucose (mg/dL) 148 H 212 H 190 H (70-110) mg/dL Hemoglobin A1c (<=6.0) % Total Bilirubin (0.3-1.2) mg/dL Alkaline Phosphatase (41-126) U/L Total Protein (6.2-8.2) g/dL Albumin (3.8-4.9) g/dL Albumin/Globulin Ratio (1.60-3.17) Ratio 05/22/24 Range/Units 06:31 RBC (4.40-5.60) X 10*6/uL Hgb (13.0-17.0) g/dL Hct (39.6-50.0) % MCHC (32.0-37.0) g/dL BUN (9.0-27.0) mg/dL Creatinine (0.6-1.5) mg/dL Est GFR (CKD-EPI) (>=60) Glucose (70-110) mg/dL POC Glucose (mg/dL) 128 H (70-110) mg/dL Hemoglobin A1c (<=6.0) % Total Bilirubin (0.3-1.2) mg/dL Alkaline Phosphatase (41-126) U/L Total Protein (6.2-8.2) g/dL Albumin (3.8-4.9) g/dL Albumin/Globulin Ratio (1.60-3.17) Ratio Microbiology - Last 24 Hours (Table) 05/20/24 14:34 Blood Culture - Preliminary Blood 05/20/24 11:38 Gram Stain - Preliminary Ankle - Right
[2024-05-22 16:31] LABS: Glucose,Whole Blood 182 mg/dL (70-110)
[2024-05-22] MEDS: MAGNESIUM SULFATE-D5W PMX 1 GM in DEXTROSE/WATER 1 100ML.BAG IVPB SCH (16:43)
[2024-05-22 20:25] LABS: Glucose,Whole Blood 203 mg/dL (70-110)
[2024-05-23 06:15] LABS: Glucose,Whole Blood 150 mg/dL (70-110)
--- NOTE | 2024-05-23 08:13 | P.PN ---
Subjective Progress Note Date: 05/22/24 Principal diagnosis: Reason for follow-up is right lower extremity ulcer and cellulitis Patient is a 54-year-old male with a past medical history significant for diabetes mellitus history of diabetic foot infection in this patient was status post left below the knee amputation presenting to the hospital for evaluation of increasing swelling redness to the right lower extremity failing outpatient treatment. On today's evaluation that is 05/22/2024, patient has been afebrile, patient is breathing comfortably and is currently on room air, patient denies having any s ignificant cough no chest pain, patient denies nausea vomiting or diarrhea and no abdominal pain patient denies any worsening pain to the right lower extremity. Patient white count is 6.05 creat is 1.6 culture not growing present MRSA blood cultures are pending Objective - Vital Signs Vital signs: Vital Signs Temp 98.2 F 05/22/24 13:37 Pulse 84 05/22/24 15:57 Resp 16 05/22/24 13:37 BP 109/67 05/22/24 13:37 Pulse Ox 97 05/22/24 13:37 FiO2 Intake & Output 05/21/24 05/22/24 05/22/24 18:59 06:59 18:59 Output Total 800 1200 Balance -800 -1200 Output: Urine 800 1200 Other: Voiding Method Urinal Urinal - Exam GENERAL DESCRIPTION: Middle-age male lying in bed in no distress RESPIRATORY SYSTEM: Unlabored breathing , decreased breath sounds at bases HEART: S1 S2 regular rate and rhythm , ABDOMEN: Soft , no tenderness EXTREMITIES: Right leg is currently dressed in Speedy wrap no drainage - Labs CBC & Chem 7: 05/22/24 03:42 05/22/24 03:42 Labs: Abnormal Lab Results - Last 24 Hours (Table) 05/21/24 05/21/24 05/22/24 Range/Units 16:59 20:45 03:42 RBC 2.77 L (4.40-5.60) X 10*6/uL Hgb 7.6 L (13.0-17.0) g/dL Hct 24.5 L (39.6-50.0) % MCHC 31.0 L (32.0-37.0) g/dL Creatinine (0.6-1.5) mg/dL Est GFR (CKD-EPI) (>=60) Glucose (70-110) mg/dL POC Glucose (mg/dL) 212 H 190 H (70-110) mg/dL Calcium (8.7-10.3) mg/dL Total Bilirubin (0.3-1.2) mg/dL Total Protein (6.2-8.2) g/dL Albumin (3.8-4.9) g/dL Albumin/Globulin Ratio (1.60-3.17) Ratio 05/22/24 05/22/24 05/22/24 Range/Units 03:42 06:31 11:36 RBC (4.40-5.60) X 10*6/uL Hgb (13.0-17.0) g/dL Hct (39.6-50.0) % MCHC (32.0-37.0) g/dL Creatinine 1.6 H (0.6-1.5) mg/dL Est GFR (CKD-EPI) 51 L (>=60) Glucose 155 H (70-110) mg/dL POC Glucose (mg/dL) 128 H 173 H (70-110) mg/dL Calcium 8.3 L (8.7-10.3) mg/dL Total Bilirubin <0.2 L (0.3-1.2) mg/dL Total Protein 5.7 L (6.2-8.2) g/dL Albumin 3.3 L (3.8-4.9) g/dL Albumin/Globulin Ratio 1.38 L (1.60-3.17) Ratio 05/22/24 Range/Units 16:29 RBC (4.40-5.60) X 10*6/uL Hgb (13.0-17.0) g/dL Hct (39.6-50.0) % MCHC (32.0-37.0) g/dL Creatinine (0.6-1.5) mg/dL Est GFR (CKD-EPI) (>=60) Glucose (70-110) mg/dL POC Glucose (mg/dL) 182 H (70-110) mg/dL Calcium (8.7-10.3) mg/dL Total Bilirubin (0.3-1.2) mg/dL Total Protein (6.2-8.2) g/dL Albumin (3.8-4.9) g/dL Albumin/Globulin Ratio (1.60-3.17) Ratio Microbiology - Last 24 Hours (Table) 05/20/24 11:38 Gram Stain - Preliminary Ankle - Right Wound Culture - Preliminary Presumptive MRSA 05/20/24 14:34 Blood Culture - Preliminary Blood Assessment and Plan (1) Failure of outpatient treatment Current Visit: Yes Status: Acute Code(s): Z78.9 - OTHER SPECIFIED HEALTH STATUS SNOMED Code(s): 823567263 (2) Cellulitis of leg, right Current Visit: Yes Status: Acute Code(s): L03.115 - CELLULITIS OF RIGHT LOWER LIMB SNOMED Code(s): 69482502021483428 Plan: 1patient presented to hospital with increasing swelling redness to the right lower extremity in this patient who did have diffuse swelling redness some superficial ulceration and evidence of cellulitis failing outpatient oral Keflex and Bactrim DS therapy concerning for possible community associated MRSA 2-patient to continue local wound care with dry Aquacel dressing to the open area and area of maceration followed by Speedy wrap from just bilateral below the k nee 3local culture currently growing presumptive MRSA vancomycin will be continued will watching his kidney function closely and discontinue Unasyn Dictation was produced using [employer] dictation software. please excuse any grammatical, word or spelling errors.
[2024-05-23 08:55] LABS: Magnesium 1.9 mg/dL (1.5-2.4)
--- NOTE | 2024-05-23 10:54 | P.PN ---
Subjective Patient is seen in follow-up for acute kidney injury on chronic kidney disease. Renal function stable. Tolerating oral intake. No vomiting or diarrhea. Vital signs are stable. General: No acute distress. HEENT: Head exam is unremarkable. LUNGS: No audible rhonchi or wheezes. HEART: Rate and Rhythm are regular. ABDOMEN: Obese, nontender. EXTREMITITES: Left BKA. Right lower extremity wrapped. No drainage. Objective - Vital Signs Vital signs: Vital Signs Temp 98 F 05/23/24 07:09 Pulse 80 05/23/24 08:43 Resp 18 05/23/24 07:09 BP 105/67 05/23/24 07:09 Pulse Ox 98 05/23/24 07:09 FiO2 Intake & Output 05/22/24 05/23/24 05/23/24 18:59 06:59 18:59 Intake Total 250 Output Total 1500 3150 Balance -1500 -3150 250 Intake: Oral 250 Output: Urine 1500 3150 Other: Voiding Method Urinal Urinal # Voids 1 # Bowel Movements 1 - Labs CBC & Chem 7: 05/22/24 03:42 05/22/24 03:42 Labs: Abnormal Lab Results - Last 24 Hours (Table) 05/22/24 05/22/24 05/22/24 Range/Units 11:36 16:29 20:24 POC Glucose (mg/dL) 173 H 182 H 203 H (70-110) mg/dL 05/23/24 Range/Units 06:12 POC Glucose (mg/dL) 150 H (70-110) mg/dL Microbiology - Last 24 Hours (Table) 05/20/24 14:34 Blood Culture - Preliminary Blood 05/20/24 11:38 Gram Stain - Preliminary Ankle - Right Wound Culture - Preliminary Presumptive MRSA Assessment and Plan Plan: Assessment: 1. Acute kidney injury secondary to ATN and further worsen with the use of Bactrim. Creatinine 2 on admission and is improved to 1.6 yesterday. UA benign. 2. Chronic kidney disease stage II/IIIa secondary to nephrosclerosis and history of NARENDRA requiring temporary hemodialysis. 3. Right lower extremity cellulitis on antibiotics. 4. Hypertension with chronic kidney disease. 5. Diabetes mellitus. Plan: Remains off IV fluids. Encouraged oral intake. Avoid nephrotoxins. Follow-up outpatient 1 to 2 weeks postdischarge.
[2024-05-23 11:36] LABS: African American GFR (CKD) 72 (>60 ml/min/1.73 sqM); Non-African American GFR(CKD) 62 (>60 ml/min/1.73 sqM)
[2024-05-23 11:36] LABS: Glucose,Whole Blood 165 mg/dL (70-110)
[2024-05-23] MEDS: VANCOMYCIN TROUGH DUE 1 EACH MISC MISCELLANE ONE (12:00)
[2024-05-23 13:06] LABS: BUN/Creat Ratio 13.86 Ratio (12.00-20.00); Blood Urea Nitrogen 19.4 mg/dL (9.0-27.0); Calcium 8.5 mg/dL (8.7-10.3); Carbon Dioxide 24.6 mmol/L (21.6-31.8); Chloride 103 mmol/L (96-109); Glucose 175 mg/dL (70-110); Potassium 4.5 mmol/L (3.5-5.5); Sodium 137 mmol/L (135-145)
--- NOTE | 2024-05-23 13:54 | P.PN ---
Subjective Progress Note Date: 05/23/24 Principal diagnosis: Reason for follow-up is right lower extremity ulcer and cellulitis Patient is a 54-year-old male with a past medical history significant for diabetes mellitus history of diabetic foot infection in this patient was status post left below the knee amputation presenting to the hospital for evaluation of increasing swelling redness to the right lower extremity failing outpatient treatment. On today's evaluation that is 05/23/2024, Patient is afebrile this morning patient denies having any chest pain shortness of breath or cough, the patient is currently on room air, patient denies any abdominal pain no diarrhea no nausea no vomiting pain to the right lower extremity has decreased intensity mention feeling better. Patient did have a creatinine 1.30, Vanco trough is 12.9 culture with MRSA sensitivities pending Objective - Vital Signs Vital signs: Vital Signs Temp 98 F 05/23/24 07:09 Pulse 90 05/23/24 11:43 Resp 18 05/23/24 07:09 BP 105/67 05/23/24 07:09 Pulse Ox 98 05/23/24 07:09 FiO2 Intake & Output 05/22/24 05/23/24 05/23/24 18:59 06:59 18:59 Intake Total 250 Output Total 1500 3150 Balance -1500 -3150 250 Intake: Oral 250 Output: Urine 1500 3150 Other: Voiding Method Urinal Urinal # Voids 1 # Bowel Movements 1 - Exam GENERAL DESCRIPTION: Middle-age male lying in bed in no distress RESPIRATORY SYSTEM: Unlabored breathing , decreased breath sounds at bases HEART: S1 S2 regular rate and rhythm , ABDOMEN: Soft , no tenderness EXTREMITIES: Right leg is currently dressed in Speedy wrap no drainage - Labs CBC & Chem 7: 05/22/24 03:42 05/23/24 10:59 Labs: Abnormal Lab Results - Last 24 Hours (Table) 05/22/24 05/22/24 05/23/24 Range/Units 16:29 20:24 03:46 Creatinine (0.66-1.25) mg/dL Glucose 175 H (70-110) mg/dL POC Glucose (mg/dL) 182 H 203 H (70-110) mg/dL Calcium 8.5 L (8.7-10.3) mg/dL 05/23/24 05/23/24 05/23/24 Range/Units 06:12 10:59 11:34 Creatinine 1.30 H (0.66-1.25) mg/dL Glucose (70-110) mg/dL POC Glucose (mg/dL) 150 H 165 H (70-110) mg/dL Calcium (8.7-10.3) mg/dL Microbiology - Last 24 Hours (Table) 05/20/24 14:34 Blood Culture - Preliminary Blood Assessment and Plan (1) Failure of outpatient treatment Current Visit: Yes Status: Acute Code(s): Z78.9 - OTHER SPECIFIED HEALTH STATUS SNOMED Code(s): 002527319 (2) Cellulitis of leg, right Current Visit: Yes Status: Acute Code(s): L03.115 - CELLULITIS OF RIGHT LOWER LIMB SNOMED Code(s): 73322394822249133 Plan: 1patient presented to hospital with increasing swelling redness to the right lower extremity in this patient who did have diffuse swelling redness some superficial ulceration and evidence of cellulitis failing outpatient oral Keflex and Bactrim DS therapy concerning for possible community associated MRSA 2-patient to continue local wound care with dry Aquacel dressing to the open ar ea and area of maceration followed by Speedy wrap from just bilateral below the knee 3local culture currently growing presumptive MRSA patient is currently being treated with the vancomycin trough is a 12.9 we currently waiting for the final sensitivities to determine discharge antibiotics Dictation was produced using [employer] dictation software. please excuse any grammatical, word or spelling errors. Time with Patient: Less than 30
--- NOTE | 2024-05-23 16:11 | P.PN ---
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 Presented to the emergency department for evaluation of right lower extremity cellulitis as directed by his PCP after fa ili outpatient treatment. Patient has been under treatment for right lower extremity cellulitis for 3 weeks. Patient reports he completed 2 weeks of oral Keflex and after no improvement and his PCP started him on Bactrim x 10 days and the redness, swelling, and increased warmth in his right lower extremity continued to worsen. Patient reports significant swelling, pain, redness, and seepage of clear to yellow fluid from lower extremity. Patient reports the swelling and pain continued to worsen restricting his ability to lift or bend his leg. Patient reports he did have a Doppler to rule out a blood clot prior to beginning his antibiotic course 3 weeks ago. He denies experiencing any fevers, chills, diaphoresis, headache, lightheadedness, dizziness, chest pain, palpitations, shortness of breath, cough or congestion, nausea, or vomiting. Upon arrival to our facility, patient underwent evaluation in the emergency department. Vital signs upon arrival show blood pressure 117/63, heart rate 77, respiratory rate 20, temp 98.5 F, and SpO2 of 97% on 2 L O2. EKG was completed showing normal sinus rhythm at 73 bpm. Chest x-ray was completed in the emergency department negative for acute cardiopulmonary process. Right lower extremity venous Doppler completed Negative for DVT. X-ray right tibia and fibula was negative showing no acute osseous abnormality. Labs completed and reviewed. CBC showing normocytic anemia with hemoglobin of 9.0 (chronic and at baseline) coagulation profile normal findings. BMP showing an acute kidney injury with BUN of 37, creatinine of 2.03, and GFR of 36 baseline creatinine of 1.2. Magnesium was low at 1.5. Liver profile showing elevated alkaline phosphatase of 133 otherwise normal findings. Troponin was negative at less than 0.012 and proBNP was 645. Patient was admitted under our services with consultation to infectious disease secondary to failing outpatient treatment for right lower extremity cellulitis. Physical exam: Patient seen and fully evaluated at bedside this morning. He reports right lower extremity swelling, pain, and redness improving today. Vital signs reviewed and stable. General: Nontoxic, no distress and appears stated age. Derm: Skin warm and dry, normal coloration for ethnicity. Head: Atraumatic, normocephalic and symmetric. Eyes: Legally blind in left eye Mouth: no lip lesions, mucus membranes moist Cardiovascular: regular rate and rhythm with normal S1S2, no murmur noted. Lungs: Respirations even, regular, and unlabored on room air. Lungs CTA bila terally, no rhonchi, no rales, no wheezing, and no accessory muscle usage. Abdominal: soft, nontender to palpation, no guarding, no appreciable organomegaly Ext: No gross muscle atrophy, no edema, no contractures. Patient with left BKA (has prosthesis at bedside). Right lower extremity with moderate edema, erythema, increased warmth and excoriation extending from distal toes up into the distal thigh. Neuro: Speech clear, face symmetrical and CN II-XII grossly intact with no noted focal neuro deficits Psych: Alert and oriented to person, place, time, and situation. Appropriate and pleasant affect. Assessment and Plan of Care: Right lower extremity cellulitis, failed outpatient treatment Lactic acidosis -Patient treated outpatient for right lower extremity cellulitis with reports of Keflex x 2 weeks and Bactrim x 10 days unsuccessfully. -Continue IV antibiotics with vancomycin 1750 mg daily. Monitor renal function and vancomycin trough closely for any signs/symptoms of vancomycin associated renal toxicity. Nephrology recommending keeping vancomycin trough less than 20 to prevent ATN. -Preliminary wound cultures positive for presumptive MRSA. Blood cultures showing no growth to date. -Infectious disease following, discussed plan in depth with with Dr. Lang. -Continue symptomatic care and pain management. Acute kidney injury on CKD stage IIIa Anemia of chronic disease, chronic and at baseline -Acute kidney injury suspect to be secondary to oral antibiotic Bactrim. Hold nephrotoxic medications at this time including lisinopril, Lasix, hydrochl orothiazide and Bactrim. -.Renal function improving with BUN of 23.6, creatinine 1.6, GFR of 51. - Continue close monitoring with repeat a.m. labs, monitor for resolution. - Nephrology following, reviewed documentation in chart - Bladder scan as needed to monitor for postvoid residual/retention -Urinalysis negative for blood, protein, or infection. Hypomagnesemia -Resolved morning and magnesium levels 1.9.. Will continue to monitor with repeat a.m. labs. Insulin-dependent diabetes mellitus with hyperglycemia -Continue glycemic protocol with NovoLog sliding scale and to continue Levemir 15 units twice daily. -Hemoglobin A1c 7.1%. Obstructive sleep apnea CPAP dependent nightly -Continue CPAP nightly and while napping. Anxiety and depression -Continue daily medication regimen with Lexapro 10 mg daily. Chronic back pain -Patient has morphine implanted pump in place, to continue with use pharmacy updating med rec. -Continue Neurontin 100 mg twice daily. Factor V clotting disorder Recurrent DVTs Hyperlipidemia Hypertension -Lisinopril, hydrochlorothiazide, and Lasix held at this time secondary to NARENDRA. To continue daily medication regimen with Eliquis 5 mg twice daily and atorvastatin 80 mg nightly. Blood pressures stable with morning pressure 116/66. Will continue to monitor if elevated and need to continue to hold lisinopril, hydrochlorothiazide and Lasix will place additional orders for blood pressure management at that time. Data and imaging reviewed: Morning labs reviewed. BMP showing continued improvement of renal function with BUN of 19.4, creatinine of 1.3, GFR of 62. Blood glucose 175. Magnesium 1.9. Vancomycin trough therapeutic at 12.9. Vital signs reviewed. Blood pressure 132/74, heart rate 70, respiratory rate 18, temp 98.5 F, and SpO2 of 97% on 2 L. CODE STATUS: Full code DVT prophylaxis: Eliquis Anticipated discharge date: Pending clinical course Anticipated discharge place: Home with home care Patient was seen independently by Nurse Practitioner. This document was prepared using [employer] dictation software. Please allow for errors in numerologist while rare they do occur. Rojelio Araujo NP rendered care for this patient independently, reviewed the findings and plan as documented in the note above and agree with plan. I did not physically speak with or examine the patient on this date. Objective - Vital Signs Vital signs: Vital Signs Temp 98 F 05/23/24 07:09 Pulse 80 05/23/24 08:43 Resp 18 05/23/24 07:09 BP 105/67 05/23/24 07:09 Pulse Ox 98 05/23/24 07:09 FiO2 Intake & Output 0105/23/24 05/23/24 18:59 06:59 18:59 Intake Total 250 Output Total 1500 3150 Balance -1500 -3150 250 Intake: Oral 250 Output: Urine 1500 3150 Other: Voiding Method Urinal # Voids 1 # Bowel Movements 1 - Labs CBC & Chem 7: 05/22/24 03:42 05/23/24 10:59 Labs: Abnormal Lab Results - Last 24 Hours (Table) 05/22/24 05/22/24 05/22/24 Range/Units 03:42 11:36 16:29 RBC 2.77 L (4.40-5.60) X 10*6/uL Hgb 7.6 L (13.0-17.0) g/dL Hct 24.5 L (39.6-50.0) % MCHC 31.0 L (32.0-37.0) g/dL POC Glucose (mg/dL) 173 H 182 H (70-110) mg/dL 05/22/24 05/23/24 Range/Units 20:24 06:12 RBC (4.40-5.60) X 10*6/uL Hgb (13.0-17.0) g/dL Hct (39.6-50.0) % MCHC (32.0-37.0) g/dL POC Glucose (mg/dL) 203 H 150 H (70-110) mg/dL Microbiology - Last 24 Hours (Table) 05/20/24 14:34 Blood Culture - Preliminary Blood 05/20/24 11:38 Gram Stain - Preliminary Ankle - Right Wound Culture - Preliminary Presumptive MRSA
[2024-05-23 16:42] LABS: Glucose,Whole Blood 165 mg/dL (70-110)
[2024-05-23 21:12] LABS: Glucose,Whole Blood 138 mg/dL (70-110)
[2024-05-24 06:22] LABS: Glucose,Whole Blood 116 mg/dL (70-110)
[2024-05-24] MEDS: VANCOMYCIN 1,750 MG in SODIUM CHLORIDE 0.9% 500 ML 500 ML IVPB SCH (06:26)
[2024-05-24 08:43] LABS: BUN/Creat Ratio 13.14 Ratio (12.00-20.00); Blood Urea Nitrogen 18.4 mg/dL (9.0-27.0); Calcium 8.6 mg/dL (8.7-10.3); Chloride 104 mmol/L (96-109); Glucose 136 mg/dL (70-110); Magnesium 1.7 mg/dL (1.5-2.4); Potassium 4.6 mmol/L (3.5-5.5); Sodium 138 mmol/L (135-145)
[2024-05-24 08:53] LABS: HCT 25.8 % (39.6-50.0); HGB 8.3 g/dL (13.0-17.0); MCH 28.2 pg (27.0-32.0); MCHC 32.2 g/dL (32.0-37.0); MCV 87.8 FL (80.0-97.0); Mean Platelet Volume 10.4 FL (9.5-12.2); NRBC Per 100 WBC 0 X 10*3/uL (0.00-0.01); Platelet Count 262 X 10*3/uL (140-440); RBC 2.94 X 10*6/uL (4.40-5.60); RDW 14.3 % (11.5-14.5); WBC 6.15 X 10*3/uL (4.50-10.00)
[2024-05-24 11:08] LABS: Glucose,Whole Blood 204 mg/dL (70-110)
--- NOTE | 2024-05-24 11:09 | P.PN ---
Subjective Patient is seen in follow-up for acute kidney injury on chronic kidney disease. Renal function stable. Tolerating oral intake. No vomiting or diarrhea. No active complaints. Vital signs are stable. General: No acute distress. HEENT: Head exam is unremarkable. LUNGS: No audible rhonchi or wheezes. HEART: Rate and Rhythm are regular. ABDOMEN: Obese, nontender. EXTREMITITES: Left BKA. Right lower extremity wrapped. No drainage. Objective - Vital Signs Vital signs: Vital Signs Temp 98.3 F 05/24/24 07:10 Pulse 80 05/24/24 09:45 Resp 18 05/24/24 07:10 BP 112/67 05/24/24 07:10 Pulse Ox 98 05/24/24 07:10 FiO2 Intake & Output 05/23/24 05/24/24 05/24/24 18:59 06:59 18:59 Intake Total 250 Output Total 2675 Balance 250 -2675 Intake: Oral 250 Output: Urine 2675 Other: Voiding Method Urinal Urinal Urinal # Voids 4 1 # Bowel Movements 1 - Labs CBC & Chem 7: 05/24/24 03:39 05/24/24 03:39 Labs: Abnormal Lab Results - Last 24 Hours (Table) 05/23/24 05/23/24 05/23/24 Range/Units 03:46 10:59 11:34 RBC (4.40-5.60) X 10*6/uL Hgb (13.0-17.0) g/dL Hct (39.6-50.0) % Creatinine 1.30 H (0.66-1.25) mg/dL Glucose 175 H (70-110) mg/dL POC Glucose (mg/dL) 165 H (70-110) mg/dL Calcium 8.5 L (8.7-10.3) mg/dL 05/23/24 05/23/24 05/24/24 Range/Units 16:40 21:08 03:39 RBC 2.94 L (4.40-5.60) X 10*6/uL Hgb 8.3 L (13.0-17.0) g/dL Hct 25.8 L (39.6-50.0) % Creatinine (0.66-1.25) mg/dL Glucose (70-110) mg/dL POC Glucose (mg/dL) 165 H 138 H (70-110) mg/dL Calcium (8.7-10.3) mg/dL 05/24/24 05/24/24 Range/Units 03:39 06:21 RBC (4.40-5.60) X 10*6/uL Hgb (13.0-17.0) g/dL Hct (39.6-50.0) % Creatinine (0.66-1.25) mg/dL Glucose 136 H (70-110) mg/dL POC Glucose (mg/dL) 116 H (70-110) mg/dL Calcium 8.6 L (8.7-10.3) mg/dL Microbiology - Last 24 Hours (Table) 05/20/24 11:38 Gram Stain - Final Ankle - Right Wound Culture - Final Methicillin resist S. aureus 05/20/24 14:34 Blood Culture - Preliminary Blood Assessment and Plan Plan: Assessment: 1. Acute kidney injury secondary to ATN and further worsen with the use of Bactrim. Creatinine 2 on admission and is stable at 1.4 today. UA benign. No hydronephrosis noted on renal ultrasound done July 2022. 2. Chronic kidney disease stage II/IIIa secondary to nephrosclerosis and history of NARENDRA requiring temporary hemodialysis. 3. Right lower extremity cellulitis on antibiotics. 4. Hypertension with chronic kidney disease. 5. Diabetes mellitus. Plan: Remains off IV fluids. Encouraged oral intake. Avoid nephrotoxins. Follow-up outpatient 1 to 2 weeks postdischarge.
[2024-05-24 15:33] LABS: % Iron Saturation 12.32 (15.00-50.00)
[2024-05-24 16:26] LABS: Glucose,Whole Blood 140 mg/dL (70-110)
--- NOTE | 2024-05-24 18:21 | P.PN ---
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 Presented to the emergency department for evaluation of right lower extremity cellulitis as directed by his PCP after failing outpatient treatment. Patient has been under treatment for right lower extremity cellulitis for 3 weeks. Patient reports he completed 2 weeks of oral Keflex and after no improvement and his PCP started him on Bactrim x 10 days and the redness, swelling, and increased warmth in his right lower extremity continued to worsen. Patient reports significant swelling, pain, redness, and seepage of clear to yellow fluid from lower extremity. Patient reports the swelling and pain continued to worsen restricting his ability to lift or bend his leg. Patient reports he did have a Doppler to rule out a blood clot prior to beginning his antibiotic course 3 weeks ago. He denies experiencing any fevers, chills, diaphoresis, headache, lightheadedness, dizziness, chest pain, palpitations, shortness of breath, cough or congestion, nausea, or vomiting. Upon arrival to our facility, patient underwent evaluation in the emergency department. Vital signs upon arrival show blood pressure 117/63, heart rate 77, respiratory rate 20, temp 98.5 F, and SpO2 of 97% on 2 L O2. EKG was completed showing normal sinus rhythm at 73 bpm. Chest x-ray was completed in the emergency department negative for acute cardiopulmonary process. Right lower extremity venous Doppler completed Negative for DVT. X-ray right tibia and fibula was negative showing no acute osseous abnormality. Labs completed and reviewed. CBC showing normocytic anemia with hemoglobin of 9.0 (chronic and at baseline) coagulation profile normal findings. BMP showing an acute kidney injury with BUN of 37, creatinine of 2.03, and GFR of 36 baseline creatinine of 1.2. Magnesium was low at 1.5. Liver profile showing elevated alkaline phosphatase of 133 otherwise normal findings. Troponin was negative at less than 0.012 and proBNP was 645. Patient was admitted under our services with consultation to infectious disease secondary to failing outpatient treatment for right lower extremity cellulitis. May 24: Sitting up in bed. Tolerating a diet. Denies any significant pain. No fever no chills. I vancomycin. Right ankle wound had grown MRSA. Active Medications Acetaminophen (Acetaminophen Tab 325 Mg Tab) 650 mg PO Q6HR PRN PRN Reason: Mild Pain or Fever > 100.5 Last Admin: 05/21/24 02:17 Dose: 650 mg Hydrocodone Bitart/Acetaminophen (Hydrocodone/Apap 5-325mg 1 Each Tab) 1 each PO Q4HR PRN PRN Reason: Moderate Pain (Scale 4 to 6) Albuterol Sulfate (Albuterol Nebulized 2.5 Mg/3 Ml) 2.5 mg INHALATION RT-QID PRN PRN Reason: Shortness Of Breath Albuterol/Ipratropium (Ipratropium-Albuterol 3 Ml Neb) 3 ml INHALATION RT-QID [facility] Last Admin: 05/24/24 17:01 Dose: 3 ml Apixaban (Apixaban 5 Mg Tab) 5 mg PO BID [facility]; Protocol Last Admin: 05/24/24 08:03 Dose: 5 mg Atorvastatin Calcium (Atorvastatin 80 Mg Tab) 80 mg PO [facility] Last Admin: 05/23/24 21:38 Dose: 80 mg Budesonide/Formoterol Fumarate (Symbicort 160-4.5 Mcg Inhaler) 2 puff INHALATION RT-BID [facility] Last Admin: 05/24/24 09:36 Dose: 2 puff Dextrose/Water (Dextrose 50% Syringe 50 Ml) 25 ml IVP PER PROTOCOL PRN; Protocol PRN Reason: Hypoglycemia Dextrose/Water (Dextrose 50% Syringe 50 Ml) 50 ml IVP PER PROTOCOL PRN; Protocol PRN Reason: Hypoglycemia Escitalopram Oxalate (Escitalopram 10 Mg Tab) 10 mg PO DAILY [facility] Last Admin: 05/24/24 08:03 Dose: 10 mg Famotidine (Famotidine 20 Mg Tab) 20 mg PO HS [facility] Last Admin: 05/23/24 21:38 Dose: 20 mg Ferrous Sulfate (Ferrous Sulfate 325 Mg Tab) 325 mg PO BID [facility] Last Admin: 05/24/24 08:03 Dose: 325 mg Gabapentin (Gabapentin 100 Mg Cap) 100 mg PO BID [facility] Last Admin: 05/24/24 08:03 Dose: 100 mg Vancomycin HCl 1,750 mg/ (Sodium Chloride) 500 mls @ 167 mls/hr IVPB Q16H [facility] Last Admin: 05/24/24 06:26 Dose: 167 mls/hr Insulin Aspart (Insulin Aspart (Novolog) 100 Unit/Ml Vial) 0 unit SQ ACHS [facility]; Protocol Last Admin: 05/24/24 16:44 Dose: Not Given Insulin Detemir (Insulin Detemir (Levemir) 100 Unit/Ml Syr) 15 unit SQ BID [facility] Last Admin: 05/24/24 08:04 Dose: 15 unit Latanoprost (Latanoprost 0.005% Ophth Drops 2.5 Ml Btl) 1 drops BOTH EYES HS [facility] Last Admin: 05/23/24 21:37 Dose: 1 drops Naloxone HCl (Naloxone 0.4 Mg/Ml 1 Ml Vial) 0.2 mg IV Q2M PRN PRN Reason: Opioid Reversal Non-Formulary Medication (Dextroamphetamine/Amphetamine [Adderall Xr 20 Mg Capsule]) 20 mg PO DAILY [facility] Last Admin: 05/24/24 10:49 Dose: 20 mg Non-Formulary Medication (Lubiprostone [Amitiza]) 24 mcg PO BID-W/MEALS [facility] Last Admin: 05/24/24 17:56 Dose: 24 mcg Pantoprazole Sodium (Pantoprazole 40 Mg Tablet) 40 mg PO DAILY [facility] Last Admin: 05/24/24 08:03 Dose: 40 mg Polyethylene Glycol (Polyethylene Glycol 3350 17 Gm Powd.Pack) 17 gm PO DAILY [facility] Last Admin: 05/24/24 08:04 Dose: 17 gm Physical examination: VITAL SIGNS: 98.4, 67, 18, 121 x 62, 98% on 2 L Dorian GENERAL: Sitting up in bed, eating lunch EYES: Legally blind in the left eye l. HEENT: External appearance of nose and ears normal, oral cavity grossly normal. NECK: JVD unable to assess; masses not palpable. HEART: First and second heart sounds are normal; edema present LUNGS: Respiratory rate normal; diminished breath sounds, ABDOMEN: Soft, no tenderness, no guarding rigidity, liver spleen not palpable, no masses palpable. EXTREMITIES: Left BKA.: Has a prosthesis. Inflammatory changes like lower extremity some edema increased erythema increased local warmth and some excoriation. PSYCH: AO 3, mood affect normal INVESTIGATIONS, reviewed in the clinical context: May 24: White count 6.1 hemoglobin 8.3 platelets 262's sodium 138 potassium 4.6 creatinine 1.4 Iron 35 TIBC 284% saturation 12.3 transferrin 203 ferritin 113 Right tibia-fibula x-ray: Unremarkable Venous Doppler: Right lower extremity: No DVT Assessment and Plan of Care: Right lower extremity cellulitis, with superficial ulcers failed outpatient treatment Local wound cultures growing MRSA. Lactic acidosis -Patient treated outpatient for right lower extremity cellulitis with reports of Keflex x 2 weeks and Bactrim x 10 days unsuccessfully. -Continue IV antibiotics with vancomycin -ID following Acute kidney injury, secondary to ATN probably secondary to Bactrim Creatinine was 2.03 admission. Now down to 1.4. -Chronic kidney disease, 3A, history requiring temporary dialysis Nephrology following. UA negative for blood protein Anemia of chronic kidney disease, and iron deficiency -Partial blindness in the left eye Hypomagnesemia -Replace -Charcot foot -Morbid obesity BMI 41.2 Weight loss measures -Diabetic peripheral neuropathy -Chronic pain syndrome, including chronic herniated disc in the lumbar spine Patient has a morphine pain pump Insulin-dependent diabetes mellitus with hyperglycemia -Continue glycemic protocol with NovoLog sliding scale and to continue Levemir 15 units twice daily. -Hemoglobin A1c 7.1%. Obstructive sleep apnea CPAP dependent nightly -Continue CPAP nightly and while napping. Anxiety and depression -Continue daily medication regimen with Lexapro 10 mg daily. -Hepatic steatosis, nonalcoholic fatty liver disease Factor V clotting disorder, with recurrent DVTs Eliquis Hyperlipidemia Lipitor 80 mg nightly Essential hypertension Lisinopril hydrochlorothiazide were held because of NARENDRA. Follow -Full code Local wound care with Aquacel and dry dressing. Any stress. Cultures are finalized. Discharge antibiotics per ID.
[2024-05-24 20:44] LABS: Glucose,Whole Blood 160 mg/dL (70-110)
--- NOTE | 2024-05-24 21:57 | P.PN ---
Subjective Progress Note Date: 05/24/24 Principal diagnosis: Reason for follow-up is right lower extremity ulcer and cellulitis Patient is a 54-year-old male with a past medical history significant for diabetes mellitus history of diabetic foot infection in this patient was status post left below the knee amputation presenting to the hospital for evaluation of increasing swelling redness to the right lower extremity failing outpatient treatment. On today's evaluation that is 05/24/2024,the patient denies any fever or any chills, patient is breathing comfortably on 2 L again oxygen, the patient denies chest pain shortness of breath and no significant cough, patient denies abdominal pain, no nausea vomiting or diarrhea. Right lower extremity pain swelling redness has decreased. Patient white count 6.15 creatinine is 1.4 culture with MRSA Objective - Vital Signs Vital signs: Vital Signs Temp 98.3 F 05/24/24 07:10 Pulse 80 05/24/24 09:45 Resp 18 05/24/24 07:10 BP 112/67 05/24/24 07:10 Pulse Ox 98 05/24/24 07:10 FiO2 Intake & Output 05/23/24 05/24/24 05/24/24 18:59 06:59 18:59 Intake Total 250 Output Total 2675 Balance 250 -2675 Intake: Oral 250 Output: Urine 2675 Other: Voiding Method Urinal Urinal Urinal # Voids 4 1 # Bowel Movements 1 - Exam GENERAL DESCRIPTION: Middle-age male lying in bed in no distress RESPIRATORY SYSTEM: Unlabored breathing , decreased breath sounds at bases HEART: S1 S2 regular rate and rhythm , ABDOMEN: Soft , no tenderness EXTREMITIES: Right lower extremity overall swelling redness has decreased no drainage - Labs CBC & Chem 7: 05/24/24 03:39 05/24/24 03:39 Labs: Abnormal Lab Results - Last 24 Hours (Table) 05/23/24 05/23/24 05/23/24 Range/Units 03:46 10:59 11:34 RBC (4.40-5.60) X 10*6/uL Hgb (13.0-17.0) g/dL Hct (39.6-50.0) % Creatinine 1.30 H (0.66-1.25) mg/dL Glucose 175 H (70-110) mg/dL POC Glucose (mg/dL) 165 H (70-110) mg/dL Calcium 8.5 L (8.7-10.3) mg/dL 05/23/24 05/23/24 05/24/24 Range/Units 16:40 21:08 03:39 RBC 2.94 L (4.40-5.60) X 10*6/uL Hgb 8.3 L (13.0-17.0) g/dL Hct 25.8 L (39.6-50.0) % Creatinine (0.66-1.25) mg/dL Glucose (70-110) mg/dL POC Glucose (mg/dL) 165 H 138 H (70-110) mg/dL Calcium (8.7-10.3) mg/dL 05/24/24 05/24/24 Range/Units 03:39 06:21 RBC (4.40-5.60) X 10*6/uL Hgb (13.0-17.0) g/dL Hct (39.6-50.0) % Creatinine (0.66-1.25) mg/dL Glucose 136 H (70-110) mg/dL POC Glucose (mg/dL) 116 H (70-110) mg/dL Calcium 8.6 L (8.7-10.3) mg/dL Microbiology - Last 24 Hours (Table) 05/20/24 11:38 Gram Stain - Final Ankle - Right Wound Culture - Final Methicillin resist S. aureus 05/20/24 14:34 Blood Culture - Preliminary Blood Assessment and Plan (1) Failure of outpatient treatment Current Visit: Yes Status: Acute Code(s): Z78.9 - OTHER SPECIFIED HEALTH STATUS SNOMED Code(s): 440442101 (2) Cellulitis of leg, right Current Visit: Yes Status: Acute Code(s): L03.115 - CELLULITIS OF RIGHT LOWER LIMB SNOMED Code(s): 00736861118760589 Plan: 1patient presented to hospital with increasing swelling redness to the right lower extremity in this patient who did have diffuse swelling redness some superficial ulceration and evidence of cellulitis failing outpatient oral Keflex and Bactrim DS therapy concerning for possible community associated MRSA 2-patient to continue local wound care with dry Aquacel dressing to the open area and area of maceration followed by Speedy wrap from just bilateral below the knee 3local culture currently growing MRSA patient wanted to stay another day on IV antibiotic therapy which will be continued creatinine has improved to 1.4 he will finish therapy with doxycycline 100 mg twice daily for 10 days on discharge Dictation was produced using [employer] dictation software. please excuse any grammatical, word or spelling errors. Time with Patient: Less than 30
[2024-05-25 06:24] LABS: Glucose,Whole Blood 175 mg/dL (70-110)
[2024-05-25 07:17] LABS: African American GFR (CKD) 85 (>60 ml/min/1.73 sqM); Non-African American GFR(CKD) 74 (>60 ml/min/1.73 sqM)
[2024-05-25 09:29] VITALS: RESP 16
--- NOTE | 2024-05-25 10:17 | P.PN ---
Subjective Patient is seen in follow-up for acute kidney injury on chronic kidney disease. Renal function improved. Tolerating oral intake. No vomiting or diarrhea. No active complaints. Vital signs are stable. General: No acute distress. HEENT: Head exam is unremarkable. LUNGS: No audible rhonchi or wheezes. HEART: Rate and Rhythm are regular. ABDOMEN: Obese, nontender. EXTREMITITES: Left BKA. Right lower extremity wrapped. No drainage. Objective - Vital Signs Vital signs: Vital Signs Temp 98.1 F 05/25/24 08:00 Pulse 80 05/25/24 09:17 Resp 16 05/25/24 08:00 BP 134/69 05/25/24 08:00 Pulse Ox 98 05/25/24 08:00 FiO2 Intake & Output 05/24/24 05/25/24 05/25/24 18:59 06:59 18:59 Output Total 900 Balance -900 Output: Urine 900 Other: Voiding Method Urinal Urinal # Bowel Movements 1 - Labs CBC & Chem 7: 05/24/24 03:39 05/25/24 05:13 Labs: Abnormal Lab Results - Last 24 Hours (Table) 05/24/24 05/24/24 05/24/24 Range/Units 03:39 11:06 16:25 POC Glucose (mg/dL) 204 H 140 H (70-110) mg/dL Iron 35 L (65-175) UG/DL % Saturation 12.32 L (15.00-50.00) Transferrin 203.0 L (204.0-354.0) mg/dL 05/24/24 05/25/24 Range/Units 20:42 06:22 POC Glucose (mg/dL) 160 H 175 H (70-110) mg/dL Iron (65-175) UG/DL % Saturation (15.00-50.00) Transferrin (204.0-354.0) mg/dL Microbiology - Last 24 Hours (Table) 05/20/24 11:38 Gram Stain - Final Ankle - Right Wound Culture - Final Methicillin resist S. aureus Assessment and Plan Plan: Assessment: 1. Acute kidney injury secondary to ATN and further worsen with the use of Bactrim. Creatinine 2 on admission and is stable at 1.13 today. UA benign. No hydronephrosis noted on renal ultrasound done July 2022. 2. Chronic kidney disease stage II/IIIa secondary to nephrosclerosis and history of NARENDRA requiring temporary hemodialysis. 3. Right lower extremity cellulitis on antibiotics. 4. Hypertension with chronic kidney disease. Controlled. 5. Diabetes mellitus. Plan: Remains off IV fluids. Encouraged oral intake. Avoid nephrotoxins. Follow-up outpatient 1 to 2 weeks postdischarge.
[2024-05-25 11:22] LABS: Glucose,Whole Blood 165 mg/dL (70-110)
[2024-05-25 13:20] VITALS: BP 137/79; PULSE 70; TEMP 98.2
--- NOTE | 2024-05-25 15:01 | P.PN ---
Subjective Progress Note Date: 05/25/24 Principal diagnosis: Reason for follow-up is right lower extremity ulcer and cellulitis Patient is a 54-year-old male with a past medical history significant for diabetes mellitus history of diabetic foot infection in this patient was status post left below the knee amputation presenting to the hospital for evaluation of increasing swelling redness to the right lower extremity failing outpatient treatment. On today's evaluation that is 05/25/2024,the patient remains to be afebrile, patient is on room air not requiring supplemental oxygen and denies any shortness of breath no chest pain or cough.Patient denies having any nausea or vomiting, no abdominal pain and no diarrhea or pain to the right lower extremity. Patient did have a creatinine 1.13 culture with MRSA blood culture negative Objective - Vital Signs Vital signs: Vital Signs Temp 98.1 F 05/25/24 08:00 Pulse 80 05/25/24 09:17 Resp 16 05/25/24 08:59 BP 134/69 05/25/24 08:00 Pulse Ox 98 05/25/24 08:00 FiO2 Intake & Output 05/24/24 05/25/24 05/25/24 18:59 06:59 18:59 Output Total 900 Balance -900 Output: Urine 900 Other: Voiding Method Urinal Urinal Urinal # Bowel Movements 1 - Exam GENERAL DESCRIPTION: Middle-age male lying in bed in no distress RESPIRATORY SYSTEM: Unlabored breathing , decreased breath sounds at bases HEART: S1 S2 regular rate and rhythm , ABDOMEN: Soft , no tenderness EXTREMITIES: Right lower extremity overall swelling redness has decreased no drainage - Labs CBC & Chem 7: 05/24/24 03:39 05/25/24 05:13 Labs: Abnormal Lab Results - Last 24 Hours (Table) 05/24/24 05/24/24 05/24/24 Range/Units 03:39 11:06 16:25 POC Glucose (mg/dL) 204 H 140 H (70-110) mg/dL Iron 35 L (65-175) UG/DL % Saturation 12.32 L (15.00-50.00) Transferrin 203.0 L (204.0-354.0) mg/dL 05/24/24 05/25/24 Range/Units 20:42 06:22 POC Glucose (mg/dL) 160 H 175 H (70-110) mg/dL Iron (65-175) UG/DL % Saturation (15.00-50.00) Transferrin (204.0-354.0) mg/dL Microbiology - Last 24 Hours (Table) 05/20/24 11:38 Gram Stain - Final Ankle - Right Wound Culture - Final Methicillin resist S. aureus Assessment and Plan (1) Failure of outpatient treatment Current Visit: Yes Status: Acute Code(s): Z78.9 - OTHER SPECIFIED HEALTH STATUS SNOMED Code(s): 428886093 (2) Cellulitis of leg, right Current Visit: Yes Status: Acute Code(s): L03.115 - CELLULITIS OF RIGHT LOWER LIMB SNOMED Code(s): 08404120741559011 Plan: 1patient presented to hospital with increasing swelling redness to the right lower extremity in this patient who did have diffuse swelling redness some superficial ulceration and evidence of cellulitis failing outpatient oral Keflex and Bactrim DS therapy concerning for possible community associated MRSA 2-patient to continue local wound care with dry Aquacel dressing to the open area and area of maceration followed by Speedy wrap from just bilateral below the knee 3local culture did grow MRSA patient did have improvement to the right lower extremity cellulitis we will be able to finish therapy with oral doxycycline prescription already sent to the pharmacy Dictation was produced using [employer] dictation software. please excuse any g rammatical, word or spelling errors. Time with Patient: Less than 30
--- NOTE | 2024-05-25 20:49 | P.DS ---
Providers Date of admission: 05/20/24 13:47 Expected date of discharge: 05/25/24 Attending physician: Heri Alvarez Consults: 05/20/24 15:05 Consult Physician Stat Consulting Provider: Kalina Kim Consult Reason/Comments: Recalcitrant RLE cellulitis Do you want consulting provider notified?: Yes 05/20/24 17:39 Consult Physician Routine Consulting Provider: Silvia Carrion Consult Reason/Comments: NARENDRA on CKD Do you want consulting provider notified?: Yes Primary care physician: [facility] Course: Hospital Course:: Patient is a very pleasant 54-year-old male with a past medical history of 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 Presented to the emergency department for evaluation of right lower extremity cellulitis as directed by his PCP after failing outpatient treatment. Patient has been under treatment for right lower extremity cellulitis for 3 weeks. Patient reports he completed 2 weeks of oral Keflex and after no improvement and his PCP started him on Bactrim x 10 days and the redness, swelling, and increased warmth in his right lower extremity continued to worsen. Patient reports significant swelling, pain, redness, and seepage of clear to yellow fluid from lower extremity. Patient reports the swelling and pain continued to worsen restricting his ability to lift or bend his leg. Patient reports he did have a Doppler to rule out a blood clot prior to beginning his antibiotic course 3 weeks ago. He denies experiencing any fevers, chills, diaphoresis, headache, lightheadedness, dizziness, chest pain, palpitations, shortness of breath, cough or congestion, nausea, or vomiting. Up on arrival to our facility, patient underwent evaluation in the emergency department. Vital signs upon arrival show blood pressure 117/63, heart rate 77, respiratory rate 20, temp 98.5 F, and SpO2 of 97% on 2 L O2. EKG was completed showing normal sinus rhythm at 73 bpm. Chest x-ray was completed in the emergency department negative for acute cardiopulmonary process. Right lower extremity venous Doppler completed Negative for DVT. X-ray right tibia and fibula was negative showing no acute osseous abnormality. Labs completed and reviewed. CBC showing normocytic anemia with hemoglobin of 9.0 (chronic and at baseline) coagulation profile normal findings. BMP showing an acute kidney injury with BUN of 37, creatinine of 2.03, and GFR of 36 baseline creatinine of 1.2. Magnesium was low at 1.5. Liver profile showing elevated alkaline phosphatase of 133 otherwise normal findings. Troponin was negative at less than 0.012 and proBNP was 645. Patient was admitted under our services with consultation to infectious disease secondary to failing outpatient treatment for right lower extremity cellulitis. May 24: Sitting up in bed. Tolerating a diet. Denies any significant pain. No fever no chills. I vancomycin. Right ankle wound had grown MRSA. Local wound care per Dr. Kim May 25: Patient doing well. Pain controlled.Patient did receive doxycycline for 7 days. Have patient follow-up with ID. Questions answered Physical examination: VITAL SIGNS: 98.2, 70, 16, 137 x 79, 97% room air GENERAL: Sitting up in bed, comfortable EYES: Legally blind in the left eye l. HEENT: External appearance of nose and ears normal, oral cavity grossly normal. NECK: JVD unable to assess; masses not palpable. HEART: First and second heart sounds are normal; edema present LUNGS: Respiratory rate normal; diminished breath sounds, ABDOMEN: Soft, no tenderness, no guarding rigidity, liver spleen not palpable, no masses palpable. EXTREMITIES: Left BKA.: Has a prosthesis. Inflammatory changes like lower extremity some edema increased erythema increased local warmth and some excoriation. PSYCH: AO 3, mood affect normal INVESTIGATIONS, reviewed in the clinical context: Wound culture [right ankle May 20, 2024] MRSA May 24: White count 6.1 hemoglobin 8.3 platelets 262's sodium 138 potassium 4.6 creatinine 1.4 Iron 35 TIBC 284% saturation 12.3 transferrin 203 ferritin 113 Right tibia-fibula x-ray: Unremarkable Venous Doppler: Right lower extremity: No DVT Assessment and Plan of Care: Right lower extremity cellulitis, with superficial ulcers failed outpatient treatment Local wound cultures growing MRSA. Lactic acidosis -Patient treated outpatient for right lower extremity cellulitis with reports of Keflex x 2 weeks and Bactrim x 10 days unsuccessfully. -Continue IV antibiotics with vancomycin -ID following Discharged on doxycycline 100 twice daily for 7 days Acute kidney injury, secondary to ATN probably secondary to Bactrim Creatinine was 2.03 admission. Now down to 1.4. -Chronic kidney disease, 3A, history requiring temporary dialysis Nephrology following. UA negative for blood protein Anemia of chronic kidney disease, and iron deficiency -Partial blindness in the left eye Hypomagnesemia -Replace -Charcot foot -Morbid obesity BMI 41.2 Weight loss measures -Diabetic peripheral neuropathy -Chronic pain syndrome, including chronic herniated disc in the lumbar spine Patient has a morphine pain pump Insulin-dependent diabetes mellitus with hyperglycemia -Continue glycemic protocol with NovoLog sliding scale and to continue Levemir 15 units twice daily. -Hemoglobin A1c 7.1%. Obstructive sleep apnea CPAP dependent nightly -Continue CPAP nightly and while napping. Anxiety and depression -Continue daily medication regimen with Lexapro 10 mg daily. -Hepatic steatosis, nonalcoholic fatty liver disease Factor V clotting disorder, with recurrent DVTs Eliquis Hyperlipidemia Lipitor 80 mg nightly Essential hypertension Lisinopril hydrochlorothiazide held. Follow -Full code Disposition: Home Plan - Discharge Summary Discharge Rx Participant: No New Discharge Prescriptions: New Doxycycline Hyclate 100 mg PO BID #14 cap Acetaminophen Tab [Tylenol] 650 mg PO Q6HR PRN tab PRN Reason: Mild Pain Or Fever > 100.5 Continue Latanoprost Ophth [Xalatan 0.005%] 1 drop BOTH EYES HS Insulin Glargine,Hum.rec.anlog [Lantus Solostar Pen] 15 units SQ BID polyethylene glycoL 3350 [Miralax] 17 gm PO DAILY methocarbamoL [Robaxin] 500 mg PO Q8H PRN PRN Reason: Pain Lubiprostone [Amitiza] 24 mcg PO BID-W/MEALS Dextroamphetamine/Amphetamine [Adderall Xr 20 mg Capsule] 20 mg PO DAILY Dicyclomine [Bentyl] 10 mg PO Q6H PRN PRN Reason: Gi Upset Gabapentin [Neurontin] 100 mg PO BID Atorvastatin [Lipitor] 80 mg PO HS Lactulose [Constulose] 20 gm PO DAILY PRN PRN Reason: Constipation Ferrous Sulfate [Iron (65 MG Elemental)] 325 mg PO BID Omeprazole 20 mg PO DAILY Apixaban [Eliquis] 5 mg PO BID #1 tab Ergocalciferol [Vitamin D2 (1250 Mcg = 31700 Iu)] 1,250 mcg PO Q14D Insulin Lispro [humaLOG Kwikpen] See Protocol SQ TID-W/MEALS Cyclobenzaprine [Flexeril] 10 mg PO BID Patient Own Pump 0 bag Escitalopram Oxalate [Lexapro] 10 mg PO DAILY Fluticasone Propion/Salmeterol [Advair 250-50 Diskus] 1 puff INHALATION DIRECTED Albuterol Sulfate [Ventolin HFA] 2 puff INHALATION RT-QID PRN PRN Reason: Shortness Of Breath Famotidine [Pepcid] 20 mg PO HS Ipratropium-Albuterol Nebulize [Duoneb 0.5 mg-3 mg/3 ml Soln] 3 ml INHALATION RT-Q6H PRN PRN Reason: Shortness Of Breath Discontinued hydroCHLOROthiazide 25 mg PO DAILY Magnesium Citrate 296 ml PO ONCE PRN PRN Reason: Constipation metFORMIN HCL 1,000 mg PO BID Magnesium Oxide [Mag-Ox] 400 mg PO DAILY tab Furosemide [Lasix] 20 mg PO DAILY Metoclopramide [Reglan] 10 mg PO QID PRN PRN Reason: Nausea No Action lisinopriL [Zestril] 2.5 mg PO HS Discharge Medication List Latanoprost Ophth [Xalatan 0.005%] 1 drop BOTH EYES HS 01/23/14 [History] Ferrous Sulfate [Iron (65 MG Elemental)] 325 mg PO BID 10/25/20 [History] Omeprazole 20 mg PO DAILY 11/10/21 [History] Apixaban [Eliquis] 5 mg PO BID #1 tab 08/26/22 [Rx] Insulin Glargine,Hum.rec.anlog [Lantus Solostar Pen] 15 units SQ BID 12/11/22 [History] lisinopriL [Zestril] 2.5 mg PO HS 12/11/22 [History] Ergocalciferol [Vitamin D2 (1250 Mcg = 68662 Iu)] 1,250 mcg PO Q14D 04/09/23 [History] Cyclobenzaprine [Flexeril] 10 mg PO BID 07/14/23 [History] Insulin Lispro [humaLOG Kwikpen] See Protocol SQ TID-W/MEALS 07/14/23 [History] Patient Own Pump 0 bag 07/14/23 [History] Escitalopram Oxalate [Lexapro] 10 mg PO DAILY 02/23/24 [History] Lubiprostone [Amitiza] 24 mcg PO BID-W/MEALS 02/23/24 [History] methocarbamoL [Robaxin] 500 mg PO Q8H PRN 02/23/24 [History] polyethylene glycoL 3350 [Miralax] 17 gm PO DAILY 02/23/24 [History] Albuterol Sulfate [Ventolin HFA] 2 puff INHALATION RT-QID PRN 05/20/24 [History] Atorvastatin [Lipitor] 80 mg PO HS 05/20/24 [History] Dextroamphetamine/Amphetamine [Adderall Xr 20 mg Capsule] 20 mg PO DAILY 05/20/24 [History] Dicyclomine [Bentyl] 10 mg PO Q6H PRN 05/20/24 [History] Famotidine [Pepcid] 20 mg PO HS 05/20/24 [History] Fluticasone Propion/Salmeterol [Advair 250-50 Diskus] 1 puff INHALATION DIRECTED 05/20/24 [History] Gabapentin [Neurontin] 100 mg PO BID 05/20/24 [History] Ipratropium-Albuterol Nebulize [Duoneb 0.5 mg-3 mg/3 ml Soln] 3 ml INHALATION RT-Q6H PRN 05/20/24 [History] Lactulose [Constulose] 20 gm PO DAILY PRN 05/20/24 [History] Acetaminophen Tab [Tylenol] 650 mg PO Q6HR PRN tab 05/25/24 [Rx] Doxycycline Hyclate 100 mg PO BID #14 cap 05/25/24 [Rx] Follow up Appointment(s)/Referral(s): Silvia Carrion MD [STAFF PHYSICIAN] - 10 Days Dl Waggoner MD [Primary Care Provider] - 1-2 days [facility], [NON-STAFF] - 1 Week Kalina Kim MD [STAFF PHYSICIAN] - 2 Weeks Activity/Diet/Wound Care/Special Instructions: pt home meds in pharmacy and omnicell to be sent home with pt at discharge. woundcare per dr kim Discharge Disposition: HOME SELF-CARE
[2024-05-26] MEDS ORDERED: VANCOMYCIN TROUGH DUE 1 EACH MISC MISCELLANE ONE (05:00)
== END 2024-05-25 16:58 | disposition home or self-care (01) | DRG 602 ==
LOC: EC 10:49 → 4SSUR 13:47
PROVIDERS: ADMIT Hospitalist; ATTEND Hospitalist
DX: L03.115 Cellulitis of right lower limb (principal); N17.0 Acute kidney failure with tubular necrosis; A52.16 Charcot's arthropathy (tabetic); L97.919 Non-pressure chronic ulcer of unspecified part of right lower leg with unspecified severity; D63.1 Anemia in chronic kidney disease; E11.22 Type 2 diabetes mellitus with diabetic chronic kidney disease; I12.9 Hypertensive chronic kidney disease with stage 1 through stage 4 chronic kidney disease, or unspecified chronic kidney disease; F32.A Depression, unspecified; E66.01 Morbid (severe) obesity due to excess calories; N18.31 Chronic kidney disease, stage 3a; G47.419 Narcolepsy without cataplexy; K76.0 Fatty (change of) liver, not elsewhere classified; D68.51 Activated protein C resistance; Z68.41 Body mass index [BMI] 40.0-44.9, adult; B95.62 Methicillin resistant Staphylococcus aureus infection as the cause of diseases classified elsewhere; E11.43 Type 2 diabetes mellitus with diabetic autonomic (poly)neuropathy; E11.65 Type 2 diabetes mellitus with hyperglycemia; E11.628 Type 2 diabetes mellitus with other skin complications; E11.610 Type 2 diabetes mellitus with diabetic neuropathic arthropathy; K44.9 Diaphragmatic hernia without obstruction or gangrene; E11.622 Type 2 diabetes mellitus with other skin ulcer; E11.51 Type 2 diabetes mellitus with diabetic peripheral angiopathy without gangrene; G43.909 Migraine, unspecified, not intractable, without status migrainosus; E83.42 Hypomagnesemia; M19.90 Unspecified osteoarthritis, unspecified site; G89.4 Chronic pain syndrome; G47.33 Obstructive sleep apnea (adult) (pediatric); H54.40 Blindness, one eye, unspecified eye; F41.9 Anxiety disorder, unspecified; K21.9 Gastro-esophageal reflux disease without esophagitis; E78.5 Hyperlipidemia, unspecified; I25.2 Old myocardial infarction; K31.84 Gastroparesis; Z79.4 Long term (current) use of insulin; Z79.84 Long term (current) use of oral hypoglycemic drugs; Z79.01 Long term (current) use of anticoagulants; Z79.51 Long term (current) use of inhaled steroids; Z79.899 Other long term (current) drug therapy; Z86.718 Personal history of other venous thrombosis and embolism; Z89.512 Acquired absence of left leg below knee
CPT/HCPCS: 36415; 71046; 80048; 80053; 80202; 81003; 82565; 82728; 83036; 83540; 83550; 83605; 83735; 83880; 84484; 85025; 85027; 85610; 85730; 87040; 87070; 87077; 87186; 87205; 93005; 94640; 96361; 96365; 96366; 96367; 99285

== ENCOUNTER 2024-11-02 15:20 | Emergency (ER) | payer BC ==
--- NOTE | 2024-11-02 16:34 | ED ---
General Adult HPI - General Chief complaint: ENT Stated complaint: Throat issue Time Seen by Provider: 11/02/24 15:38 Source: patient, RN notes reviewed Mode of arrival: EMS Limitations: no limitations - History of Present Illness Initial comments: This is a 54-year-old male with a history of GERD and esophageal strictures with subsequent multiple esophageal dilations who follows with Dr. Ramey who presents to the emergency department for complaints of esophageal spasms. He states that over the past few days he felt like he has been having a difficult time swallowing foods. He states that earlier today while he was eating a sandwich he took a bite and swallow it felt like it was stuck in the lower part of his esophagus. He states that it took a while for the food to subside and currently has a tightness type sensation lower part of his esophagus however he believes that the food is passed. He denies difficulty breathing, abdominal pain, chest pain or palpitations. - Related Data Home Medications Medication Instructions Recorded Confirmed Latanoprost Ophth [Xalatan 0.005%] 1 drop BOTH EYES HS 01/23/14 09/22/24 Ferrous Sulfate [Iron (65 MG 325 mg PO BID 10/25/20 09/22/24 Elemental)] Omeprazole 20 mg PO DAILY 11/10/21 09/22/24 Insulin Glargine,Hum.rec.anlog 15 units SQ BID 12/11/22 09/22/24 [Lantus Solostar Pen] lisinopriL [Zestril] 2.5 mg PO HS 12/11/22 09/22/24 Ergocalciferol [Vitamin D2 (1250 1,250 mcg PO Q14D 04/09/23 09/22/24 Mcg = 36110 Iu)] Cyclobenzaprine [Flexeril] 10 mg PO BID 07/14/23 09/22/24 Insulin Lispro [humaLOG Kwikpen] See Protocol SQ TID-W/MEALS 07/14/23 09/22/24 Patient Own Pump 0 bag 07/14/23 07/14/23 Escitalopram Oxalate [Lexapro] 10 mg PO DAILY 02/23/24 09/22/24 Lubiprostone [Amitiza] 24 mcg PO BID-W/MEALS 02/23/24 09/22/24 methocarbamoL [Robaxin] 500 mg PO Q8H PRN 02/23/24 09/22/24 polyethylene glycoL 3350 [Miralax] 17 gm PO DAILY 02/23/24 09/22/24 Albuterol Sulfate [Ventolin HFA] 2 puff INHALATION RT-QID PRN 05/20/24 09/22/24 Atorvastatin [Lipitor] 80 mg PO HS 05/20/24 09/22/24 Dextroamphetamine/Amphetamine 20 mg PO DAILY 05/20/24 09/22/24 [Adderall Xr 20 mg Capsule] Dicyclomine [Bentyl] 10 mg PO Q6H PRN 05/20/24 09/22/24 Famotidine [Pepcid] 20 mg PO HS 05/20/24 09/22/24 Fluticasone Propion/Salmeterol 1 puff INHALATION DIRECTED 05/20/24 09/22/24 [Advair 250-50 Diskus] Gabapentin [Neurontin] 100 mg PO BID 05/20/24 09/22/24 Ipratropium-Albuterol Nebulize 3 ml INHALATION RT-Q6H PRN 05/20/24 09/22/24 [Duoneb 0.5 mg-3 mg/3 ml Soln] Lactulose [Constulose] 20 gm PO DAILY PRN 05/20/24 09/22/24 Previous Rx's Medication Instructions Recorded Apixaban [Eliquis] 5 mg PO BID #1 tab 08/26/22 Acetaminophen Tab [Tylenol] 650 mg PO Q6HR PRN tab 05/25/24 Doxycycline Hyclate 100 mg PO BID #14 cap 05/25/24 Allergies Allergy/AdvReac Type Severity Reaction Status Date / Time adhesive Allergy Rash/Hives Verified 11/02/24 15:25 Review of Systems ROS Statement: Those systems with pertinent positive or pertinent negative responses have been documented in the HPI. ROS Other: All systems not noted in ROS Statement are negative. Past Medical History Past Medical History: Blood Disorder, Diabetes Mellitus, Deep Vein Thrombosis (DVT), GERD/Reflux, Hyperlipidemia, Hypertension, Musculoskeletal Disorder, Osteoarthritis (OA), Sleep Apnea/CPAP/BIPAP Additional Past Medical History / Comment(s): IDDM type II, neuropathy bilateral feet with R foot worse, charcot foot R/L, , gastroparesis, hiatal hernia, esophageal narrowing (scarring)/past dysphagia/has had dilations, factor V leiden, 2 DVT's L leg, another superficial blood clot L leg, chronic back pain/has pain pump, DDD and bulging discs, legally blind L eye since , migraines, PVD, fatty liver, narcolepsy, bipap, on abx for cellulitis right leg draining with fara wrap applied Last Myocardial Infarction Date:: 11/07/21 History of Any Multi-Drug Resistant Organisms: MRSA, VRE Date of last positivie culture/infection: 05/20/24-MRSA; 08/17/22-VRE MDRO Source:: MRSA-rt ankle, left leg; VRE-Left Leg Past Surgical History: Orthopedic Surgery, Tonsillectomy Additional Past Surgical History / Comment(s): R foot/ankle surgery at [facility] with bone removal/hardware inserted, I&D L foot, pain pump insertion, colonoscopy, EGDs with dilations, UVPPP, eye surgery as an . 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 no blood transfusion reaction Past Psychological History: Anxiety, Depression Smoking Status: Never smoker Past Alcohol Use History: None Reported Past Drug Use History: None Reported - Past Family History Father Family Medical History: Cancer Additional Family Medical History / Comment(s): BLADDER CANCER Mother Family Medical History: CVA/TIA, Diabetes Mellitus, Myocardial Infarction ([place]) General Exam Limitations: no limitations ENT exam: Present: normal exam, mucous membranes moist Neck exam: Present: normal inspection. Absent: tenderness, meningismus, lymphadenopathy Respiratory exam: Present: normal lung sounds bilaterally. Absent: respiratory distress, wheezes, rales, rhonchi, stridor Cardiovascular Exam: Present: regular rate, normal rhythm, normal heart sounds. Absent: systolic murmur, diastolic murmur, rubs, gallop, clicks GI/Abdominal exam: Present: soft, normal bowel sounds. Absent: distended, tenderness, guarding, rebound, rigid Extremities exam: Present: normal inspection, full ROM, normal capillary refill. Absent: tenderness, pedal edema, joint swelling, calf tenderness Back exam: Present: normal inspection Skin exam: Present: warm, dry, intact, normal color. Absent: rash Course Vital Signs 11/02/24 11/02/24 15:22 17:40 Temperature 98.1 F 97.8 F Pulse Rate 75 70 Respiratory 20 18 Rate Blood Pressure 130/72 121/61 O2 Sat by Pulse 95 97 Oximetry Medical Decision Making - Medical Decision Making Was pt. sent in by a medical professional or institution (, [employer], FOUNDER / CEO, urgent c are, hospital, or usp...) When possible be specific @ -No Did you speak to anyone other than the patient for history (EMS, parent, family, police, friend...)? What history was obtained from this source @ -No Did you review nursing and triage notes (agree or disagree)? Why? @ -I reviewed and agree with nursing and triage notes Were old charts reviewed (outside hosp., previous admission, EMS record, old EKG, old radiological studies, urgent care reports/EKG's, usp records)? Report findings @ -No old charts were reviewed Differential Diagnosis (chest pain, altered mental status, abdominal pain women, abdominal pain men, vaginal bleeding, weakness, fever, dyspnea, syncope, headache, dizziness, GI bleed, back pain, seizure, CVA, palpatations, mental health, musculoskeletal)? @ -Differential Dyspnea: Coronary syndrome, arrhythmia, tamponade, asthma, COPD, pulmonary embolism, pneumonia, pneumothorax, pulmonary effusion, anaphylaxis, diabetic ketoacidosis, flailed chest, pulmonary contusion, diaphragmatic rupture, anemia, neuromuscular, this is not meant to be an all-inclusive list. EKG interpreted by me (3pts min.). @ -None X-rays interpreted by me (1pt min.). @ -Chest x-ray and soft tissue x-ray of the neck no acute process CT interpreted by me (1pt min.). @ -None done U/S interpreted by me (1pt. min.). @ -None done What testing was considered but not performed or refused? (CT, X-rays, U/S, labs)? Why? @ -None What meds were considered but not given or refused? Why? @ -None Did you discuss the management of the patient with other professionals (professionals i.e. [employer] Ayers, FOUNDER / CEO, lab, RT, psych nurse, web content & social media manager, industrial pharmacist, teacher, activities officer, rifle case repairer)? Give summary @ -No Was smoking cessation discussed for >3mins.? @ -No Was critical care preformed (if so, how long)? @ -No Were there social determinants of health that impacted care today? How? (Homelessness, low income, unemployed, alcoholism, drug addiction, transportation, low edu. Level, literacy, decrease access to med. care, halfway, rehab)? @ -No Was there de-escalation of care discussed even if they declined (Discuss DNR or withdrawal of care, Hospice)? DNR status @ -No What co-morbidities impacted this encounter? (DM, HTN, Smoking, COPD, CAD, Cancer, CVA, ARF, Chemo, Hep., AIDS, mental health diagnosis, sleep apnea, morbid obesity)? @ -None Was patient admitted / discharged? Hospital course, mention meds given and route, prescriptions, significant lab abnormalities, going to OR and other pertinent info. @ -Discharge. 54 male presenting via EMS for concerns of potential retained food within his esophagus. Overall patient is well-appearing in no signs respiratory distress. Equal lung sounds heard through all lung garcia. Vitals are stable. Chest x-ray and x-ray soft tissue of the throat are unremarkable. Patient arrived also glucagon. Patient states that he is feeling well. Recommended he follows up closely with GI specialist for further evaluation. Case discussed with Dr. Tidwell Undiagnosed new problem with uncertain prognosis? @ -No Drug Therapy requiring intensive monitoring for toxicity (Heparin, Nitro, Insulin, Cardizem)? @ -No Were any procedures done? @ -No Diagnosis/symptom? @ -Esophageal spasm Acute, or Chronic, or Acute on Chronic? @ -Acute Uncomplicated (without systemic symptoms) or Complicated (systemic symptoms)? @ -Uncomplicated Side effects of treatment? @ -No Exacerbation, Progression, or Severe Exacerbation? @ -No Poses a threat to life or bodily function? How? (Chest pain, [place], [place], pneumonia, PE, COPD, DKA, ARF, appy, cholecystitis, CVA, Diverticulitis, Homicidal, Suicidal, threat to staff... and all critical care pts) @ -No Disposition Clinical Impression: Esophageal spasm Disposition: HOME SELF-CARE Condition: Good Instructions (If sedation given, give patient instructions): Esophageal Spasm (ED) Additional Instructions: Please return to the Emergency Department if symptoms worsen or any other concerns. Please contact your primary care provider and your GI specialist in the morning to schedule follow-up. Is patient prescribed a controlled substance at d/c from ED?: No Referrals: Dl Waggoner MD [Primary Care Provider] - 1-2 days Time of Disposition: 17:35
--- NOTE | 2024-11-02 17:16 | XR ---
EXAMINATION TYPE: XR soft tissue neck DATE OF EXAM: 11/02/2024 5:07 PM INDICATION: Patient age:Male; 54 years old; Reason for study: c.o. FB in throat, hx esophageal strictures; PHH. pain COMPARISON: Soft tissue neck radiograph 04/20/2024 TECHNIQUE: The soft tissues of the neck were imaged in 2 views. FINDINGS: The prevertebral soft tissues are unremarkable. There is no evidence of mass effect or trac heal deviation. No acute osseous abnormality demonstrated. No definitive radiopaque foreign body. IMPRESSION: No significant abnormality identified within the soft tissues of the neck. [facility], , 11/02/2024 5:14 PM
--- NOTE | 2024-11-02 17:18 | XR ---
EXAMINATION TYPE: XR chest 2V DATE OF EXAM: 11/02/2024 5:07 PM COMPARISON: Chest radiographs from 05/20/2024 TECHNIQUE: XR chest 2V Frontal and lateral views of the chest. CLINICAL INDICATION:Male, 54 years old with history of r/o aspiration; pain FINDINGS: Lungs/Pleura: There is no evidence of pleural effusion, focal consolidation, or pneumothorax. No rad iopaque foreign body identified. Chronic elevation of the right hemidiaphragm. Bibasilar linear atele ctasis. Pulmonary vascularity: Unremarkable. Heart/mediastinum: Cardiomediastinal silhouette is unremarkable. Musculoskeletal: Multiple level degenerative disc disease changes seen throughout the spine. IMPRESSION: No acute cardiopulmonary disease/process. [facility], , 11/02/2024 5:15 PM
[2024-11-02] MEDS: GLUCAGON 1 MG/ML VIAL IM STA (17:31)
[2024-11-02 17:42] VITALS: BP 121/61; PULSE 70; RESP 18; TEMP 97.8
== END 2024-11-02 17:49 | disposition home or self-care (01) ==
LOC: EC 15:20
DX: K22.4 Dyskinesia of esophagus (principal); Z91.09 Other allergy status, other than to drugs and biological substances
CPT/HCPCS: 70360; 71046; 99283; 96372; J1610

== ENCOUNTER 2024-11-24 07:19 | Emergency (ER) | payer BC ==
[2024-11-24 07:40] VITALS: BP 157/71; PULSE 63; RESP 18; TEMP 98
--- NOTE | 2024-11-24 07:59 | ED ---
General Adult HPI - General Chief complaint: Wound/Laceration Stated complaint: Right Leg Wound Issue Time Seen by Provider: 11/24/24 07:21 Source: patient, family, RN notes reviewed Mode of arrival: ambulatory Limitations: no limitations - History of Present Illness Initial comments: Patient is a 54-year-old male present to the emergency department with concerns for right leg wound. Patient has chronic right leg wound. Patient has chronic cellulitis. Patient states there was maggots on there this morning. Patient and family did clean these out. There is some mild increased redness to the upper part of the chronic wound. Patient has mild discomfort. No fever. - Related Data Home Medications Medication Instructions Recorded Confirmed Latanoprost Ophth [Xalatan 0.005%] 1 drop BOTH EYES HS 01/23/14 11/14/24 Ferrous Sulfate [Iron (65 MG 325 mg PO BID 10/25/20 11/14/24 Elemental)] Omeprazole 20 mg PO DAILY 11/10/21 11/14/24 Insulin Glargine,Hum.rec.anlog 20 units SQ BID 12/11/22 11/14/24 [Lantus Solostar Pen] lisinopriL [Zestril] 2.5 mg PO HS 12/11/22 11/14/24 Ergocalciferol [Vitamin D2 (1250 1,250 mcg PO Q14D 04/09/23 11/14/24 Mcg = 49161 Iu)] Cyclobenzaprine [Flexeril] 10 mg PO BID 07/14/23 11/14/24 Insulin Lispro [humaLOG Kwikpen] See Protocol SQ TID-W/MEALS 07/14/23 11/14/24 Escitalopram Oxalate [Lexapro] 10 mg PO DAILY 02/23/24 11/14/24 Lubiprostone [Amitiza] 24 mcg PO BID-W/MEALS 02/23/24 11/14/24 methocarbamoL [Robaxin] 500 mg PO Q8H PRN 02/23/24 11/14/24 polyethylene glycoL 3350 [Miralax] 17 gm PO DAILY 02/23/24 11/14/24 Albuterol Sulfate [Ventolin HFA] 2 puff INHALATION RT-QID PRN 05/20/24 11/14/24 Atorvastatin [Lipitor] 80 mg PO HS 05/20/24 11/14/24 Dextroamphetamine/Amphetamine 20 mg PO DAILY 05/20/24 11/14/24 [Adderall Xr 20 mg Capsule] Dicyclomine [Bentyl] 10 mg PO Q6H PRN 05/20/24 11/14/24 Famotidine [Pepcid] 20 mg PO HS PRN 05/20/24 11/14/24 Fluticasone Propion/Salmeterol 1 puff INHALATION DIRECTED 05/20/24 11/14/24 [Advair 250-50 Diskus] Gabapentin [Neurontin] 100 mg PO BID 05/20/24 11/14/24 Ipratropium-Albuterol Nebulize 3 ml INHALATION RT-Q6H PRN 05/20/24 11/14/24 [Duoneb 0.5 mg-3 mg/3 ml Soln] Lactulose [Constulose] 20 gm PO DAILY PRN 05/20/24 11/14/24 Morphine Pain Pump 4% 1 dose .ROUTE DAILY 11/14/24 11/14/24 Previous Rx's Medication Instructions Recorded Apixaban [Eliquis] 5 mg PO BID #1 tab 08/26/22 Cephalexin [Keflex] 500 mg PO DAILY #30 cap 11/24/24 Allergies Allergy/AdvReac Type Severity Reaction Status Date / Time adhesive Allergy Rash/Hives Verified 11/24/24 07:40 sulfamethoxazole AdvReac "Hard on Verified 11/24/24 07:40 [From Bactrim] kidney function" Advised not to take it. trimethoprim [From Bactrim] AdvReac "Hard on Verified 11/24/24 07:40 kidney function" Advised not to take it. Review of Systems ROS Statement: Those systems with pertinent positive or pertinent negative responses have been documented in the HPI. ROS Other: All systems not noted in ROS Statement are negative. Constitutional: Denies: fever Eyes: Denies: eye pain ENT: Denies: ear pain Skin: Reports: as per HPI Past Medical History Past Medical History: Blood Disorder, Diabetes Mellitus, Deep Vein Thrombosis (DVT), GERD/Reflux, Hyperlipidemia, Hypertension, Musculoskeletal Disorder, Osteoarthritis (OA), Sleep Apnea/CPAP/BIPAP Additional Past Medical History / Comment(s): ER visit 11/02/24 for esophageal narrowing. IDDM type II, neuropathy bilateral feet with R foot worse, charcot foot R/L, gastroparesis, hiatal hernia, esophageal narrowing (scarring)/past dysphagia/has had dilations, factor V leiden, 2 DVT's L leg, another superficial blood clot L leg, chronic back pain/has pain pump, DDD and bulging discs, lega lly blind L eye since , migraines, PVD, fatty liver, narcolepsy, bipap, hx of cellulitis right leg-mild weeping now. Wears 2L of oxygen continuous. Last Myocardial Infarction Date:: 11/07/21 History of Any Multi-Drug Resistant Organisms: MRSA, VRE Date of last positivie culture/infection: 05/20/24-MRSA; 08/17/22-VRE MDRO Source:: MRSA-rt ankle, left leg; VRE-Left Leg Past Surgical History: Orthopedic Surgery, Tonsillectomy Additional Past Surgical History / Comment(s): R foot/ankle surgery at [facility] with bone removal/hardware inserted, I&D L foot, pain pump insertion, colonoscopy, EGDs with dilations, UVPPP, eye surgery as an . 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 STATES "MOTHER CRASHES" "passes out"-with anesthesia,"needs to have a merchandise flow associate dose". no blood transfusion reaction Past Psychological History: Anxiety, Depression Smoking Status: Never smoker Past Alcohol Use History: None Reported Past Drug Use History: None Reported - Past Family History Father Family Medical History: Cancer Additional Family Medical History / Comment(s): BLADDER CANCER Mother Family Medical History: CVA/TIA, Diabetes Mellitus, Myocardial Infarction ([place]) Brother(s) Family Medical History: Deep Vein Thrombosis (DVT) General Exam Limitations: no limitations General appearance: alert, in no apparent distress Head exam: Present: normocephalic Eye exam: Present: normal appearance Neck exam: Present: normal inspection Respiratory exam: Present: normal lung sounds bilaterally Cardiovascular Exam: Present: regular rate, normal rhythm Expanded Peripheral pulses: 2+: Posterior Tibialis (R), Dorsalis Pedis (R) Extremities exam: Present: other (Left leg amputation. Right anterior jacob wound) Neurological exam: Present: alert Psychiatric exam: Present: normal affect, normal mood Skin exam: Present: other (Right anterior jacob wound, stage II. Chronic changes with minimal erythema in the upper portion. No evidence of maggots. No purulent drainage.) Course Vital Signs 11/24/24 07:36 Temperature 98.0 F Pulse Rate 63 Respiratory 18 Rate Blood Pressure 157/71 O2 Sat by Pulse 96 Oximetry Medical Decision Making - Medical Decision Making Was pt. sent in by a medical professional or institution (, PA, COREMAKER MACHINE, urgent care, hospital, or residential...) When possible be specific @ -No Did you speak to anyone other than the patient for history (EMS, parent, family, police, friend...)? What history was obtained from this source @ - is present and provides history including her concerns for maggots and that she remove them from the leg Did you review nursing and triage notes (agree or disagree)? Why? @ -I reviewed and agree with nursing and triage notes Were old charts reviewed (outside hosp., previous admission, EMS record, old EKG, old radiological studies, urgent care reports/EKG's, residential records)? Report findings @ -No old charts were reviewed Differential Diagnosis (chest pain, altered mental status, abdominal pain women, abdominal pain men, vaginal bleeding, weakness, fever, dyspnea, syncope, headache, dizziness, GI bleed, back pain, seizure, CVA, palpatations, mental health, musculoskeletal)? @ -Differential Fever: Pneumonia, viral URI, endocarditis, myocarditis, pericarditis, otitis, sinusitis, peritonsillar Abscess, retropharyngeal Abscess, epiglottitis, peritonitis, appendicitis, Mariela cystitis, diverticulitis, hepatitis, colitis, UTI, PID, TOA, pyelonephritis, prostatitis, epididymitis, meningitis, encephalitis, pulmonary embolism, CVA, thyroid storm, pancreatitis, adrenal crisis, cavernous sinus thrombosis, this is not meant to be an all-inclusive list. EKG interpreted by me (3pts min.). @ -As above X-rays interpreted by me (1pt min.). @ -None done CT interpreted by me (1pt min.). @ -None done U/S interpreted by me (1pt. min.). @ -None done What testing was considered but not performed or refused? (CT, X-rays, U/S, labs)? Why? @ -None What meds were considered but not given or refused? Why? @ -None Did you discuss the management of the patient with other professionals (professionals i.e. , PA, COREMAKER MACHINE, lab, RT, psych nurse, social contact worker, business line controller, teacher, community cultural development officer, case coordinator)? Give summary @ -No Was smoking cessation discussed for >3mins.? @ -No Was critical care preformed (if so, how long)? @ -No Were there social determinants of health that impacted care today? How? (Homelessness, low income, unemployed, alcoholism, drug addiction, transportation, low edu. Level, literacy, decrease access to med. care, snf, rehab)? @ -No Was there de-escalation of care discussed even if they declined (Discuss DNR or withdrawal of care, Hospice)? DNR status @ -No What co-morbidities impacted this encounter? (DM, HTN, Smoking, COPD, CAD, Cancer, CVA, ARF, Chemo, Hep., AIDS, mental health diagnosis, sleep apnea, morbid obesity)? @ -Chronic leg wound Was patient admitted / discharged? Hospital course, mention meds given and route, prescriptions, significant lab abnormalities, going to OR and other pertinent info. @ -Patient presents with chronic leg wound with concern for maggots. Wound otherwise does not appear to be that bad. There is minimal erythema. Patient and family agree that the wound does not look that bad. They are comfortable with discharge with prescription for antibiotic. conference services manager did discuss with him regarding wound care Undiagnosed new problem with uncertain prognosis? @ -No Drug Therapy requiring intensive monitoring for toxicity (Heparin, Nitro, Insul in, Cardizem)? @ -No Were any procedures done? @ -No Diagnosis/symptom? @ -Cellulitis right lower leg Acute, or Chronic, or Acute on Chronic? @ -Acute on chronic Uncomplicated (without systemic symptoms) or Complicated (systemic symptoms)? @ -Default Side effects of treatment? @ -No Exacerbation, Progression, or Severe Exacerbation? @ -No Poses a threat to life or bodily function? How? (Chest pain, [place], [place], pneumonia, PE, COPD, DKA, ARF, appy, cholecystitis, CVA, Diverticulitis, Homicidal, Suicidal, threat to staff... and all critical care pts) @ -No Disposition Clinical Impression: Cellulitis of right leg Disposition: HOME SELF-CARE Condition: Stable Instructions (If sedation given, give patient instructions): Chronic Wound Care (ED) Additional Instructions: Prescription sent to pharmacy. Please do follow-up with your primary care p hysician in the next day or 2 for recheck. Return for increased redness, fever, pain, change or worsening symptoms or other concerns. Prescriptions: Cephalexin [Keflex] 500 mg PO DAILY #30 cap Is patient prescribed a controlled substance at d/c from ED?: No Referrals: Dl Waggoner MD [Primary Care Provider] - 1-2 days Time of Disposition: 07:59
== END 2024-11-24 08:34 | disposition home or self-care (01) ==
LOC: EC 07:19
DX: L03.115 Cellulitis of right lower limb (principal); G89.29 Other chronic pain; Z88.2 Allergy status to sulfonamides; Z88.1 Allergy status to other antibiotic agents; Z91.09 Other allergy status, other than to drugs and biological substances
CPT/HCPCS: 99282